=== PATIENT | female | born 1995 | race Caucasian/White ===

== ENCOUNTER 2023-10-18 16:12 | Outpatient (OUT) | payer OTHER, SELFPAY ==
[2023-10-18 16:44] LABS: Bilirubin Urine NEGATIVE (NEGATIVE); Blood Urine NEGATIVE (NEGATIVE); Clarity Urine CLEAR (CLEAR); Color Urine LT. YELLOW (YELLOW); Glucose Urine UA NEGATIVE (NEGATIVE); Ketones Urine NEGATIVE (NEGATIVE); Leukocyte Esterase Urine NEGATIVE (NEGATIVE); Nitrite Urine NEGATIVE (NEGATIVE); Protein Urine NEGATIVE (NEG/TRACE); Urobilinogen Urine 0.2 EU/dL (0.2-1.0)
[2023-10-18 16:46] LABS: Urine Microscopic Indicated NO
[2023-10-18 18:27] LABS: Amphetamine Screen Urine NEGATIVE (NEGATIVE); Barbiturates Screen Urine NEGATIVE (NEGATIVE); Benzodiazepines Screen Urine NEGATIVE (NEGATIVE); Buprenorphine Screen Urine NEGATIVE (NEGATIVE); Cannabinoid Screen Urine POSITIVE (NEGATIVE); Cocaine Screen Urine NEGATIVE (NEGATIVE); Methadone Screen Urine NEGATIVE (NEGATIVE); Methamphetamines Screen Urine NEGATIVE (NEGATIVE); Opiate Screen Urine NEGATIVE (NEGATIVE); Oxycodone Screen Urine NEGATIVE (NEGATIVE); Phencyclidine Screen Urine NEGATIVE (NEGATIVE); Tricyclic Antidepressant Urine NEGATIVE (NEGATIVE)
== END 2023-10-18 19:00 | disposition home or self-care (01) ==
LOC: FBCO 16:41 → FBC 16:56
PROVIDERS: PCP Nurse Practitioner; Visit Provider Obstetrics & Gynecology
DX: O47.03 False labor before 37 completed weeks of gestation, third trimester (principal)
CPT/HCPCS: 59025; 80307; 80349; 81003

== ENCOUNTER 2023-11-04 12:21 | Outpatient (OUT) | payer OTHER, SELFPAY ==
--- OUTSIDE RECORDS SUMMARY | 2023-11-04 12:32 | XMS_ITS | CCD ---
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 [address] [place] [address] 06299 Sodium [Moles/Vol] 136 mmol/L Normal 134-146 [facility] Comment on above: Performed By: #### 2 106-3 #### [facility] ([id number]) [address] [place] [address] 34008 Urea nitrogen [Mass/Vol] 7 mg/dL Normal 5-23 [facility] Comment on above: Performed By: #### 2 106-3 #### [facility] ([id number]) [address] [place] [address] 61992 MAGNESIUMon 06-16-2023 Magnesium [Mass/Vol] 1.7 mg/dL Low 1.8-2.6 [facility] Comment on above: Performed By: #### 2 106-3 #### [facility] ([id number]) [address] [place], [place] [address], [place] [address] SARS/FLU A+B/RSV by NAAT/Mol ecularon 06-16-2023 SARS/FLU A+B/RSV by NAAT/Molecular FLU A PCR Negative (qualifier value) FLU B PCR Negative (qualifier value) RSV by PCR Negative (qualifier value) SARS CoV 2 Not detected (qualifier value) NOTE The Xpert Xpress SARS-CoV-2/Flu/RSV Plus test is a rapid, multiplexed real-time RT-PCR test intended for the simultaneous qualitative detection and differentiation of SARS-CoV-2, influenza A, influenza B and respiratory syncytial virus (RSV) viral RNA from individuals suspected of respiratory viral infection consistent with COVID-19 by their healthcare provider. This test has not been validated in asymptomatic patients. The Xpert Xpress SARS-CoV-2 test is intended for use by qualified and trained operators who are performing tests using either [employer] or [employer] systems and is limited to laboratories that meet the CLIA requirements to perform high and moderate complexity tests. The Xpert Xpress SARS-CoV-2/Flu/RSV Plus is only for use under the Food and Drug Administration's Emergency Use Authorization. Results are for the simultaneous detection and differentiation of SARS-CoV-2, influenza A, influenza B and RSV nucleic acids in clinical specimens. SARS-CoV-2, influenza A, influenza B and RSV RNA identified by this test are generally detectable in upper respiratory samples during the acute phase of infection. Positive results are indicative of the presence of the identified virus, but do not rule out bacterial infection or co-infection with other pathogens not detected by this test. Clinical correlation with patient history and other diagnostic information is necessary to determine patient infection status. The agent detected may not be the definite cause of disease. Negative results do not preclude SARS-CoV-2, influenza A, influenza B and RSV infection and should not be used as the sole basis for treatment or other patient management decisions. Negative results must be combined with clinical observations, patient history and epidemiological information. An Invalid result may occur with specimen-associated inhibition unable to be resolved with specimen repeat. Fact Sheet for Healthcare Providers: https://www.fda.gov/me gerry/606611/download Fact Sheet for Patients: https://www.fda.gov/me gerry/851533/download [facility] Comment on above: Performed By: #### 2 106-3 #### [facility] ([id number]) [address] [place] [address] [place] [address] URINALYSISon 06-16-2023 Bilirubin Ql (U) Negative Normal NEG [facility] Comment on above: Performed By: #### 2 106-3 #### [facility] ([id number]) [address] [place] [address] [place] [address] BLOOD/HGB Negative Normal NEG [facility] Comment on above: Performed By: #### 2 106-3 #### [facility] ([id number]) [address] [place] [address] 20355 Color (U) YELLOW Normal YELLOW [facility] Comment on above: Performed By: #### 2 106-3 #### [facility] ([id number]) [address] [place] [address] [place] [address] Glucose Ql (U) Negative Normal NEG [facility] Comment on above: Performed By: #### 2 106-3 #### [facility] ([id number]) [address] [place] [address] [place] [address] Ketones Ql (U) Negative Normal NEG [facility] Comment on above: Performed By: #### 2 106-3 #### [facility] ([id number]) [address] [place] [address], [place] [address] Leukocyte esterase Test strip Ql (U) Negative Normal NEG [facility] Comment on above: Performed By: #### 2 106-3 #### [facility] ([id number]) [address] [place] [address], [place] [address] MUCOUS PRESENT Abnormal NONE [facility] Comment on above: Performed By: #### 2 106-3 #### [facility] ([id number]) [address] [place] [address] [place] [address] Nitrite Ql (U) Negative Normal NEG [facility] Comment on above: Performed By: #### 2 106-3 #### [facility] ([id number]) [address] [place] [address] 53935 pH (U) 6.5 [pH] Normal 5.0-8.5 [facility] Comment on above: Performed By: #### 2 106-3 #### [facility] ([id number]) [address] [place] [address] 14201 Protein Ql (U) Trace Abnormal NEG [facility] Comment on above: Performed By: #### 2 106-3 #### [facility] ([id number]) [address] [place] [address] 23434 R.B.CELLS 0 /hpf Normal 0-5 [facility] Comment on above: Performed By: #### 2 106-3 #### [facility] ([id number]) [address] [place] [address] 13351 Specific gravity (U) [Rel density] 1.025 Normal 1.003-1.035 [facility] Comment on above: Performed By: #### 2 106-3 #### [facility] ([id number]) [address] [place] [address] 09723 SQUAMOUS EPITHELIUM 2 /hpf Normal 0-5 [facility] Comment on above: Performed By: #### 2 106-3 #### [facility] ([id number]) [address] [place] [address] [place] [address] TURBIDITY CLEAR Normal CLEAR [facility] Comment on above: Performed By: #### 2 106-3 #### [facility] ([id number]) [address] [place] [address] 55215 Urobilinogen Qn (U) 1.0 {Jazmine'U}/dL Normal <1.1 [facility] Comment on above: Performed By: #### 2 106-3 #### [facility] ([id number]) [address] [place] [address] 86968 W.B.CELLS 0 /hpf Normal 0-5 [facility] Comment on above: Performed By: #### 2 106-3 #### [facility] ([id number]) [address] [place] [address] CHLAMYDIA/GC PCR, FLon 05-04 CHLAMYDIA/GC PCR, FL SPECIMEN SOURCE ThinPrep CHLAMYDIA DNA(PCR) Negative (qualifier value) Chlamydia trachomatis not detected by nucleic acid amplification. This does not exclude the possibility of infection because results are dependent on adequate specimen collection. GONORRHOEAE DNA(PCR) Negative (qualifier value) Neisseria gonorrhoeae not detected by nucleic acid amplification. This does not exclude the possibility of infection because results are dependent on adequate specimen collection. Normal [facility] Comment on above: Performed By: #### 2 106-3 #### [facility] ([id number]) [address] [place] [address] 93488 Cytologyon 05-05-2023 Cytology Normal [facility] Comment on above: Result Comment: [facility] [address] [place] [address] Gynecologic Cytology Consultation Patient Name:ANTOINETTE RECIO:1995 (Age: 28)Gender:FTaken:4Reported:05/21/2023hysician(s):Nieves Velasquez M.D. ([phone])Copy To: Rec. #:[id number]: #[id number] Final Cytologic Interpretation ThinPrep Pap Test (Cervical): Satisfactory for evaluation. A transformation zone component is present. NEGATIVE FOR INTRAEPITHELIAL LESION OR MALIGNANCY. Numerous neutrophilic leukocytes are present. sairaja/05/21/2023 Interpretation [place] [address], License number: [id number]. 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 Zneftu-xg-xfoxtn ratio is <0.80. Performed By: #### N UM #### [facility] ([id number]) [address] [place] [address] 06565 HEPATITIS A IGM Non-Reactive Normal NRCT [facility] Comment on above: Performed By: #### N UM #### [facility] ([id number]) [address] [place] [address] 79467 HEPATITIS B CORE IGM Negative Normal NEG [facility] Comment on above: Performed By: #### N UM #### [facility] ([id number]) [address] [place] [address] 81403 HEPATITIS B SURF AG Negative Normal NEG [facility] Comment on above: Performed By: #### N UM #### [facility] ([id number]) [address] [place] [address] 83897 COMPLETE BLOOD COUNTon 04-15 Erythrocyte distribution width (RBC) [Ratio] 18.6 % High 11.5-15.0 [facility] Comment on above: Performed By: #### C BC, CMP, 2532-0, 3084-1, AHP, 48264-3, 86314-6, 72517-9, 67346-7 #### [facility] ([id number]) [address], [address] [place] [address] Hematocrit (Bld) [Volume fraction] 34.6 % Low 35-47 [facility] Comment on above: Performed By: #### C BC, CMP, 2532-0, 3084-1, AHP, 97104-8, 56269-6, 71056-2, 03087-7 #### [facility] ([id number]) [address], [address] [place] [address] Hemoglobin (Bld) [Mass/Vol] 11.4 g/dL Low 11.7-15.5 [facility] Comment on above: Performed By: #### C BC, CMP, 2532-0, 3084-1, AHP, 95108-2, 05974-1, 99393-4, 11161-3 #### [facility] ([id number]) [address], [address] [place] [address] MCH (RBC) [Entitic mass] 26.7 pg Low 27-34 [facility] Comment on above: Performed By: #### C BC, CMP, 2532-0, 3084-1, AHP, 85237-5, 41304-6, 88619-6, 69009-7 #### [facility] ([id number]) [address], [address] [place] [address] MCHC (RBC) [Mass/Vol] 32.8 g/dL Normal 32-36 [facility] Comment on above: Performed By: #### C BC, CMP, 2532-0, 3084-1, AHP, 63832-6, 00878-0, 76360-9, 05872-0 #### [facility] ([id number]) [address], [address] [place] [address] MCV (RBC) [Entitic vol] 81 fL Normal 80-100 [facility] Comment on above: Performed By: #### C BC, CMP, 2532-0, 3084-1, AHP, 00644-5, 11931-7, 59836-2, 26835-4 #### [facility] ([id number]) [address], [address] [place] [address] Platelet mean volume (Bld) [Entitic vol] 8.5 fL Normal 7-12 [facility] Comment on above: Performed By: #### C BC, CMP, 2532-0, 3084-1, AHP, 41357-7, 27333-6, 99438-4, 29166-7 #### [facility] ([id number]) [address], [address] [place] [address] Platelets (Bld) [#/Vol] 351 10*3/uL Normal 150-450 [facility] Comment on above: Performed By: #### C BC, CMP, 2532-0, 3084-1, AHP, 60290-3, 55164-2, 97819-7, 62062-2 #### [facility] ([id number]) [address], [address] [place] [address] RBC COUNT 4.26 X10E12/L Normal 3.80-5.20 [facility] Comment on above: Performed By: #### C BC, CMP, 2532-0, 3084-1, AHP, 79628-4, 38556-7, 64747-1, 97045-0 #### [facility] ([id number]) [address], [address] [place] [address] WBC (Bld) [#/Vol] 8.9 10*3/uL Normal 4.0-11.0 [facility] Comment on above: Performed By: #### C BC, CMP, 2532-0, 3084-1, AHP, 21574-0, 70468-1, 31050-5, 60924-6 #### [facility] ([id number]) [address], [address] [place] [address] COMPREHENSIVE METABOLIC PANE Shaji 04-16-2023 Albumin [Mass/Vol] 4.4 g/dL Normal 3.2-5.3 [facility] Comment on above: Performed By: #### C BC, CMP, 2532-0, 3084-1, AHP, 64278-1, 94281-3, 17120-4, 22104-3 #### [facility] ([id number]) [address], [address] [place] [address] ALP [Catalytic activity/Vol] 42 U/L Normal 39-130 [facility] Comment on above: Performed By: #### C BC, CMP, 2532-0, 3084-1, AHP, 40202-9, 72577-6, 04862-2, 69804-7 #### [facility] ([id number]) [address], [facility] [[email or web address] [address] [place] [address] ALT [Catalytic activity/Vol] 12 U/L Normal 0-31 [facility] Comment on above: Performed By: #### C BC, CMP, 2532-0, 3084-1, AHP, 46860-4, 51106-2, 07457-0, 88613-3 #### [facility] ([id number]) [address], [facility] [[email or web address]] [address] [place] [address] Anion gap [Moles/Vol] 9 mmol/L Normal 5-15 [facility] Comment on above: Performed By: #### C BC, CMP, 2532-0, 3084-1, AHP, 31491-2, 46879-6, 63312-6, 76291-8 #### [facility] ([id number]) [address], [address] [place] [address] AST [Catalytic activity/Vol] 13 U/L Normal 0-41 [facility] Comment on above: Performed By: #### C BC, CMP, 2532-0, 3084-1, AHP, 27854-2, 40267-9, 67825-7, 54473-8 #### [facility] ([id number]) [address] [place] [address] Bilirubin [Mass/Vol] 0.7 mg/dL Normal 0.3-1.2 [facility] Comment on above: Performed By: #### C BC, CMP, 2532-0, 3084-1, AHP, 60453-3, 52903-3, 88783-2, 46986-2 #### [facility] ([id number]) [address], [address] [place] [address] Calcium [Mass/Vol] 9.4 mg/dL Normal 8.5-10.5 [facility] Comment on above: Performed By: #### C BC, CMP, 2532-0, 3084-1, AHP, 28949-8, 33172-7, 90393-0, 61277-8 #### [facility] ([id number]) [address], [address] [place] [address] Chloride [Moles/Vol] 103 mmol/L Normal 98-109 [facility] Comment on above: Performed By: #### C BC, CMP, 2532-0, 3084-1, AHP, 18011-7, 66303-9, 26414-7, 72794-1 #### [facility] ([id number]) [address], [address] [place] [address] CO2 [Moles/Vol] 24 mmol/L Normal 22-32 [facility] Comment on above: Performed By: #### C BC, CMP, 2532-0, 3084-1, AHP, 68322-0, 16389-1, 95015-5, 97672-2 #### [facility] ([id number]) [address] [place] [address] Creatinine [Mass/Vol] 0.63 mg/dL Normal 0.40-1.00 [facility] Comment on above: Result Comment: METH OD TRACEABLE TO IDMS STANDARD Performed By: #### C BC, CMP, 2532-0, 3084-1, AHP, 33953-4, 45265-4, 59917-5, 78128-6 #### [facility] ([id number]) [address], [address] [place] [address] eGFR (CKD-EPI) NON-RACE DEPENDENT >90 Normal >59 [facility] Comment on above: Result Comment: Reported eGFR is based on the CKD-EPI 2020 equation that does not use a race coefficient. Performed By: #### C BC, CMP, 2532-0, 3084-1, AHP, 32680-1, 61712-8, 06326-1, 15336-9 #### [facility] ([id number]) [address], [address] [place] [address] Glucose [Mass/Vol] 84 mg/dL Normal 65-99 [facility] Comment on above: Performed By: #### C BC, CMP, 2532-0, 3084-1, AHP, 82548-2, 20719-2, 15105-7, 63670-3 #### [facility] ([id number]) [address], [address] [place] [address] Potassium [Moles/Vol] 3.4 mmol/L Low 3.5-5.0 [facility] Comment on above: Performed By: #### C BC, CMP, 2532-0, 3084-1, AHP, 24146-0, 14498-3, 58713-1, 73853-6 #### [facility] ([id number]) [address], [address] [place] [address] Protein [Mass/Vol] 6.9 g/dL Normal 6.0-8.0 [facility] Comment on above: Performed By: #### C BC, CMP, 2532-0, 3084-1, AHP, 84521-8, 39171-1, 85613-2, 25879-7 #### [facility] ([id number]) [address], [address] [place] [address] Sodium [Moles/Vol] 136 mmol/L Normal 134-146 [facility] Comment on above: Performed By: #### C BC, CMP, 2532-0, 3084-1, AHP, 52510-7, 23632-0, 39102-1, 18666-4 #### [facility] ([id number]) [address], [address] [place] [address] Urea nitrogen [Mass/Vol] 11 mg/dL Normal 5-23 [facility] Comment on above: Performed By: #### C BC, CMP, 2532-0, 3084-1, AHP, 07699-8, 76007-6, 96144-6, 61351-9 #### [facility] ([id number]) [address], [address] [place] [address] DRUG SCREEN, URINEon 024 AMPHETAMINE/METHAMP Negative Normal NEG [facility] Comment on above: Result Comment: AMPH /METH screening cut off = 1000 ng/mL Performed By: #### N UM #### [facility] ([id number]) [address] [place] [address] 18957 BARBITURATES Negative Normal NEG [facility] Comment on above: Result Comment: Carmella iturates screening cut off value = 200 ng/mL Performed By: #### N UM #### [facility] ([id number]) [address] [place] [address] 02906 BENZODIAZEPINES Negative Normal NEG [facility] Comment on above: Result Comment: German odiazepines screening cut off value = 200 ng/mL Performed By: #### N UM #### [facility] ([id number]) [address] [place] [address] 80776 CANNABINOIDS Positive Abnormal NEG [facility] Comment on above: Result Comment: Conf irmation available upon request. Cannabinoids/THC screening cut off value = 50 ng/mL Performed By: #### N UM #### [facility] ([id number]) [address] [place] [address] 35284 COCAINE METABOLITE Negative Normal NEG [facility] Comment on above: Result Comment: Coca ine screening cut off value = 300 ng/mL Performed By: #### N UM #### [facility] ([id number]) [address] [place] [address] 34786 ECSTASY Negative Normal NEG [facility] Comment on above: Result Comment: Ecst asy screening cut off value = 500 ng/mL This report is intended for use in clinical monitoring or management of patients. Performed By: #### N UM #### [facility] ([id number]) [address] [place] [address] 74152 METHADONE Negative Normal [facility] Comment on above: Result Comment: Meth adone screening cut off value = 300 ng/mL. Performed By: #### N UM #### [facility] ([id number]) [address] [place] [address] 95165 OPIATES Negative Normal [facility] Comment on above: Result Comment: Opia markie screening cut off value = 300 ng/mL NOTE: This test is used for the detection of codeine, hydrocodone (>1000 ng/mL), morphine and hydromorphone (>900 ng/mL) in urine. Performed By: #### N UM #### [facility] ([id number]) [address] [place] [address] 98510 OXYCODONE Negative Normal [facility] Comment on above: Result Comment: Oxyc odone screening cut off value = 300 ng/mL NOTE: This test is used for the detection of oxycodone and oxymorphone in urine. Performed By: #### N UM #### [facility] ([id number]) [address] [place] [address] PHENCYCLIDINE Negative Normal NEG [facility] Comment on above: Result Comment: Phen cyclidine screening cut off value = 25 ng/mL Performed By: #### N UM #### [facility] ([id number]) [address] [place] [address] 23748 HIV 1+2 Ab+HIV1 p24 Ag IA Ql on 04-16-2023 HIV 1 and 2 Ab/Ag Screen Non-Reactive Normal NRCT [facility] Comment on above: Result Comment: This information has been disclosed to you from confidential records protected from disclosure by state law. You shall make no further disclosure of this information without the specific, written and informed release of the individual to whom it pertains, or as otherwise permitted by state law. A general authorization for the release of medical or other information is not sufficient for the purpose of the release of HIV test results or diagnoses. Performed By: #### N UM #### [facility] ([id number]) [address] [place] [address] 48490 LDH [Catalytic activity/Vol] on 04-16-2023 LDH 156 U/L Normal 100-235 [facility] Comment on above: Performed By: #### N UM #### [facility] ([id number]) [address] [place] [address] 16544 PROTEIN CREAT RATIOon 2023 RANDOM URINE PROTEIN 180 mg/L High <120 [facility] Comment on above: Performed By: #### N UM #### [facility] ([id number]) [address] [place] [address] 90745 U/PRO/PUMP MECHANIC RATIO CALC 0.07 Normal <0.2 [facility] Comment on above: Result Comment: Neph rotic Syndrome is associated with ratios >3.5 Performed By: #### N UM #### [facility] ([id number]) [address] [place] [address] URINE CREATININE,RDM 273.50 mg/dL Normal Pr [facility] Comment on above: Performed By: #### N UM #### [facility] ([id number]) [address] [place] [address] 57209 Rubella virus Ab Ql (S)on RUBELLA IMMUNE IgG 3.1 AI Normal [facility] Comment on above: Result Comment: Interpretation-------- <0.8 NEGATIVE-considered Not Immune 0.8-0.9 EQUIVOCAL-consider retesting with new specimen >0.9 POSITIVE-considered Immune Performed By: #### N UM #### [facility] ([id number]) [address] [place] [address] 68061 T. pallidum IgG+IgM IA Ql (S )on 04-16-2023 Syphilis Total <0.2 Normal 0.0-0.8 [facility] Comment on above: Result Comment: NON REACTIVE No serologic evidence of infection to Treponema pallidum (syphilis). Repeat testing may be considered in patients with suspected acute or primary syphilis in 2 to 4 weeks. Performed By: #### N UM #### [facility] ([id number]) [address] [place] [address] 66960 URIC ACIDon 04-16-2023 Urate [Mass/Vol] 7.5 mg/dL High 2.6-7.2 [facility] Comment on above: Performed By: #### N UM #### [facility] ([id number]) [address] [place] [address] 19283 URINALYSISon 04-16-2023 Bilirubin Ql (U) Negative Normal NEG [facility] BLOOD/HGB Negative Normal NEG [facility] CA OXALATE CRYSTALS PRESENT Abnormal NONE [facility] Color (U) BROWN Abnormal YELLOW [facility] Glucose Ql (U) Negative Normal NEG [facility] Ketones Ql (U) Negative Normal NEG [facility] Leukocyte esterase Test strip Ql (U) Small Abnormal NEG [facility] MUCOUS PRESENT Abnormal NONE [facility] Nitrite Ql (U) Negative Normal NEG [facility] pH (U) 6.0 [pH] Normal 5.0-8.5 [facility] Protein Ql (U) 30 mg/dL Abnormal NEG [facility] R.B.CELLS 2 /hpf Normal 0-5 [facility] Specific gravity (U) [Rel density] 1.030 Normal 1.003-1.035 [facility] SQUAMOUS EPITHELIUM >27 High 0-5 [facility] TURBIDITY CLOUDY Abnormal CLEAR [facility] Urobilinogen (U) [Mass/Vol] mg/dL Normal <1.1 [facility] W.B.CELLS <1 Normal 0-5 [facility] URINE CULTUREon 04-16-2023 Bacteria identified Cx Nom (U) CULTURE RESULTS 50-100,000 ORGANISMS/ML NORMAL UROGENITAL YOGESH Normal [facility] Comment on above: Performed By: #### 2 106-3 #### [facility] ([id number]) [address] [place] [address], [place] [address] US PREG LESS THAN 14 WKS WIT H TRANSVAGINALon 04-16-2023 US PREG LESS THAN 14 WKS WITH TRANSVAGINAL US PREG LESS THAN 14 WKS WITH TRANSVAGINAL US PREG LESS THAN 14 WKS WITH TRANSVAGINAL: 04/16/2023 1:04 PM Clinical: Check dates and viability. Real-time transabdominal and transvaginal sonography pelvis performed.. No comparison. There is a single live intrauterine . [place]-rump length of 2.9 mm corresponds to 5 weeks 6 days gestation. Yolk sac, pole, and heart motion 115 beats per minute noted. Amount amniotic fluid is normal. Placenta not well seen due to early gestational age. Maternal ovaries are unremarkable. No cul-de-sac fluid seen. Impression: * Single live intrauterine 5 weeks 6 days gestation. * Ultrasound CALVIN 12/11/2023. Finalized by Benja Cook MD on 04/16/2023 6:58 PM Normal [facility] VZV IgG IA Ql (S)on 04-16-19 24 VARICELLA IgG 1.1 AI High <0.9 [facility] Comment on above: Result Comment: Interpretation-------- <0.9 Negative 0.9 - 1.0 Equivocal >1.0 Positive Performed By: #### N UM #### [facility] ([id number]) [address] [place] [address] 77365 CBC AND AUTO DIFFon 03-30-19 24 ABSOLUTE BASOPHIL 0.1 X10E9/L Normal 0.0-0.2 [facility] Comment on above: Performed By: #### [facility], #### [facility] ([id number]) [address] [place] [address] 10287 ABSOLUTE NEUTROPHIL 7.6 X10E9/L High 1.5-6.6 [facility] Comment on above: Performed By: #### [facility], #### [facility] ([id number]) [address] [place] [address] 32733 Basophils/100 WBC (Bld) 0.7 % Normal [facility] Comment on above: Performed By: #### [facility], #### [facility] ([id number]) [address] [place] [address] 95515 Eosinophils (Bld) [#/Vol] 0.2 10*3/uL Normal 0.0-0.4 [facility] Comment on above: Performed By: #### C OPAL MARION, #### [facility] ([id number]) [address] [place] [address] 65258 Eosinophils/100 WBC (Bld) 1.8 % Normal [facility] Comment on above: Performed By: #### [facility], #### [facility] ([id number]) [address] [place] [address] 99688 Erythrocyte distribution width (RBC) [Ratio] 18.4 % High 11.5-15.0 [facility] Comment on above: Performed By: #### C OPAL MARION, #### [facility] ([id number]) [address] [place] [address] 85741 Hematocrit (Bld) [Volume fraction] 35.8 % Normal 35-47 [facility] Comment on above: Performed By: #### C OPAL MARION, #### [facility] ([id number]) [address] [place] [address] 07374 Hemoglobin (Bld) [Mass/Vol] 11.7 g/dL Normal 11.7-15.5 [facility] Comment on above: Performed By: #### C OPAL MARION, #### [facility] ([id number]) [address] [place] [address] 95560 Lymphocytes (Bld) [#/Vol] 2.2 10*3/uL Normal 1.0-3.5 [facility] Comment on above: Performed By: #### Doretha MARION CMP, #### [facility] ([id number]) [address] [place] [address] 71386 Lymphocytes/100 WBC (Bld) 20.7 % Normal [facility] Comment on above: Performed By: #### C OPAL MARION, #### [facility] ([id number]) [address] [place] [address] 06974 MCH (RBC) [Entitic mass] 26.2 pg Low 27-34 [facility] Comment on above: Performed By: #### C SANAM, CMP, #### [facility] ([id number]) [address] [place] [address] 30141 MCHC (RBC) [Mass/Vol] 32.8 g/dL Normal 32-36 [facility] Comment on above: Performed By: #### Doretha MARION CMP, #### [facility] ([id number]) [address] [place] [address] 62295 MCV (RBC) [Entitic vol] 80 fL Normal 80-100 [facility] Comment on above: Performed By: #### Doretha MARION CMP, #### [facility] ([id number]) [address] [place] [address] 03049 Monocytes (Bld) [#/Vol] 0.5 10*3/uL Normal 0-0.9 [facility] Comment on above: Performed By: #### Doretha MARION, CMP, #### [facility] ([id number]) [address] [place] [address] 77633 Monocytes/100 WBC (Bld) 5.2 % Normal [facility] Comment on above: Performed By: #### Doretha MARION, CMP, #### [facility] ([id number]) [address] [place] [address] 25528 Neutrophils/100 WBC (Bld) 71.6 % Normal [facility] Comment on above: Performed By: #### Doretha MARION, CMP, #### [facility] ([id number]) [address] [place] [address] 76287 Platelet mean volume (Bld) [Entitic vol] 8.3 fL Normal 7-12 [facility] Comment on above: Performed By: #### C SANAM CMP, #### [facility] ([id number]) [address] [place] [address] 57820 Platelets (Bld) [#/Vol] 337 10*3/uL Normal 150-450 [facility] Comment on above: Performed By: #### C SANAM, CMP, #### [facility] ([id number]) [address] [place] [address] 38757 RBC COUNT 4.48 X10E12/L Normal 3.80-5.20 [facility] Comment on above: Performed By: #### C SANAM, CMP, #### [facility] ([id number]) [address] [place] [address] 57019 WBC (Bld) [#/Vol] 10.6 10*3/uL Normal 4.0-11.0 [facility] Comment on above: Performed By: #### C SANAM, CMP, #### [facility] ([id number]) [address] [place] [address] 86634 COMPREHENSIVE METABOLIC PANE Shaji 03-30-2023 Albumin [Mass/Vol] 4.4 g/dL Normal 3.2-5.3 [facility] Comment on above: Performed By: #### C BCA, CMP, #### [facility] ([id number]) [address] [place] [address] 67425 ALP [Catalytic activity/Vol] 40 U/L Normal 39-130 [facility] Comment on above: Performed By: #### C BCA, CMP, #### [facility] ([id number]) [address] [place] [address] 19444 ALT [Catalytic activity/Vol] 12 U/L Normal 0-31 [facility] Comment on above: Performed By: #### C SANAM CMP, #### [facility] ([id number]) [address] [place] [address] 45241 Anion gap [Moles/Vol] 8 mmol/L Normal 5-15 [facility] Comment on above: Performed By: #### C SANAM CMP, #### [facility] ([id number]) [address] [place] [address] 50036 AST [Catalytic activity/Vol] 16 U/L Normal 0-41 [facility] Comment on above: Performed By: #### C SANAM CMP, #### [facility] ([id number]) [address] [place] [address] 10557 Bilirubin [Mass/Vol] 0.5 mg/dL Normal 0.3-1.2 [facility] Comment on above: Performed By: #### C SANAM, CMP, #### [facility] ([id number]) [address] [place] [address] 27622 Calcium [Mass/Vol] 9.2 mg/dL Normal 8.5-10.5 [facility] Comment on above: Performed By: #### C SANAM CMP, #### [facility] ([id number]) [address] [place] [address] 71978 Chloride [Moles/Vol] 105 mmol/L Normal 98-109 [facility] Comment on above: Performed By: #### C BCA, CMP, #### [facility] ([id number]) [address] [place] [address] 15758 CO2 [Moles/Vol] 24 mmol/L Normal 22-32 [facility] Comment on above: Performed By: #### C BCA, CMP, #### [facility] ([id number]) [address] [place] [address] 07785 Creatinine [Mass/Vol] 0.74 mg/dL Normal 0.40-1.00 [facility] Comment on above: Result Comment: METH OD TRACEABLE TO IDMS STANDARD Performed By: #### C OPAL MARION, #### [facility] ([id number]) [address] [place] [address] 09838 eGFR (CKD-EPI) NON-RACE DEPENDENT >90 Normal >59 [facility] Comment on above: Result Comment: Reported eGFR is based on the CKD-EPI 2020 equation that does not use a race coefficient. Performed By: #### C OPAL MARION, #### [facility] ([id number]) [address] [place] [address] 16732 Glucose [Mass/Vol] 89 mg/dL Normal 65-99 [facility] Comment on above: Performed By: #### C OPAL MARION, #### [facility] ([id number]) [address] [place] [address] 18302 Potassium [Moles/Vol] 3.7 mmol/L Normal 3.5-5.0 [facility] Comment on above: Performed By: #### C OPAL MARION, #### [facility] ([id number]) [address] [place] [address] 81940 Protein [Mass/Vol] 7.4 g/dL Normal 6.0-8.0 [facility] Comment on above: Performed By: #### C OPAL MARION, #### [facility] ([id number]) [address] [place] [address] 14629 Sodium [Moles/Vol] 137 mmol/L Normal 134-146 [facility] Comment on above: Performed By: #### C SANAM CMP, #### [facility] ([id number]) [address] [place] [address] 34544 Urea nitrogen [Mass/Vol] 10 mg/dL Normal 5-23 [facility] Comment on above: Performed By: #### [facility], 83528-4 #### [facility] ([id number]) [address] [place] [address] 85829 HCG ( test) Ql (U)o n 03-30-2023 Beta HCG ( test) Ql (U) Positive Abnormal NEG [facility] Comment on above: Performed By: #### 2 106-3 #### [facility] ([id number]) [address] [place] [address] 29273 HCG.beta subunit IA 3rd IS Q non 03-30-2023 HCG.beta subunit Qn 80 m[IU]/mL Normal [facility] Comment on above: Result Comment: NEW REFERENCE RANGE WEEKS (SINCE LMP) MIU/mL 3 WEEKS 5 - 50 4 WEEKS 5 - 426 5 WEEKS 18 - 7,340 6 WEEKS 1,080 - 56,500 7-8 WEEKS 7,650 - 229,000 9-12 WEEKS 25,700 - 288,000 13-16 WEEKS 13,300 - 254,000 17-24 WEEKS 4,060 - 165,400 25-40 WEEKS 3,640 - 117,000 MALES AND NON- FEMALES - <5 MIU/mL This test has been FDA approved for use in only. Elevated levels are not necessarily diagnostic for trophoblastic or nontrophoblastic neoplasms. Performed By: #### [facility], 92554-7 #### [facility] ([id number]) [address] [place] [address] 00295 URINE CULTUREon 03-30-2023 Bacteria identified Cx Nom (U) CULTURE RESULTS 10-50,000 ORGANISMS/mL NORMAL UROGENITAL YOGESH Normal [facility] Comment on above: Performed By: #### 6 30-4 #### [facility] ([id number]) [address] [place] [address], [address] [place] [address] URN MACROSCOPIC NURon 2023 BILIRUBIN YARI Negative Normal NEG [facility] Comment on above: Performed By: #### N UM #### [facility] ([id number]) [address] [place] [address] 44433 BLOOD/HGB YARI Negative Normal NEG [facility] Comment on above: Performed By: #### N UM #### [facility] ([id number]) [address] [place] [address] 00475 GLUCOSE YARI Negative Normal NEG [facility] Comment on above: Performed By: #### N UM #### [facility] ([id number]) [address] [place] [address] [place] [address] KETONES YARI Negative Normal NEG [facility] Comment on above: Performed By: #### N UM #### [facility] ([id number]) [address] [place] [address] 77575 LEUKOCYTE ESTERASE YARI Negative Normal NEG [facility] Comment on above: Performed By: #### N UM #### [facility] ([id number]) [address] [place] [address] [place] [address] NITRITE YARI Negative Normal NEG [facility] Comment on above: Performed By: #### N UM #### [facility] ([id number]) [address] [place] [address] 20599 PH YARI 6.0 Normal 5.0-8.5 [facility] Comment on above: Performed By: #### N UM #### [facility] ([id number]) [address] [place] [address] 71484 PROTEIN YARI Negative Normal NEG [facility] Comment on above: Performed By: #### N UM #### [facility] ([id number]) [address] [facility], [place] [address] SPECIFIC GRAVITY YARI >=1.030 Normal 1.003-1.035 [facility] Comment on above: Performed By: #### N UM #### [facility] ([id number]) [address] [place] [address] UROBILINOGEN YARI 0.2 eu/dL Normal <1.1 [facility] Comment on above: Performed By: #### N UM #### [facility] ([id number]) [address] [place] [address] US PREG LESS THAN 14 WKS WIT H TRANSVAGINALon 03-30-2023 US PREG LESS THAN 14 WKS WITH TRANSVAGINAL US PREG LESS THAN 14 WKS WITH TRANSVAGINAL History: Pelvic pain in early . For viability and dating Exam/Technique: Early obstetric ultrasound (transabdominal and endovaginal) Comparison: None Findings: No intrauterine gestational sac is demonstrated. Prominent endometrium measuring up to 2.1 cm appears consistent with decidual reaction. Both ovaries appear normal with the left containing a corpus luteum of . A 1.1 cm follicle in the right ovary. Overall dimensions of the right ovary are 2.2 x 1.8 x 2.0 cm, and the left measures 4.8 x 2.7 x 3.1 cm. No adnexal abnormalities are displayed and no free intraperitoneal fluid or additional pelvic abnormalities are depicted. IMPRESSION: No intrauterine displayed at present with no adnexal abnormalities of concern for ectopic . Finalized by Pro Eckert MD on 03/30/2023 8:48 PM Normal [facility] Cholesterol [Mass/volume] in Serum or PlasmaOrdered By: Dar Nation on 11-28-2022 Cholesterol [Mass/Vol] 200 mg/dL 140-200 [facility] Comment on above: Chol less than 200 m g/dl low riskChol 201-239 mg/dl borderline riskChol 240 mg/dl and greater high risk Cholesterol in LDL Calc [Mas s/Vol]Ordered By: Dar Nation on 11-28-2022 Cholesterol in LDL [Mass/Vol] 75 mg/dL 0-100 [facility] Comment on above: LDL ATP III CLASSIFI CATIONLDL less than 100 mg/dL OptimalLDL 100-129 mg/dL Near or above optimalLDL 130-159 mg/dL Borderline highLDL 160-189 mg/dL HighLDL greater than 189 mg/dL Very high Cholesterol in VLDL Calc [Ma ss/Vol]Ordered By: Dar Nation on 11-28-2022 Cholesterol in VLDL [Mass/Vol] 16 mg/dL [facility] Lipid Panelon 11-28-2022 Cholesterol [Mass/Vol] 200 mg/dL Normal 140-200 [facility] Comment on above: Result Comment: Chol less than 200 mg/dl low risk Chol 201-239 mg/dl borderline risk Chol 240 mg/dl and greater high risk Performed By: #### H S TROP, CMP, ETOH, CBC, TSH3 #### [facility] [address] [place] [id number] [place] Cholesterol in HDL [Mass/Vol] 109 mg/dL High 23-92 [facility] Comment on above: Result Comment: HDL CHOL ATP-III CLASSIFICATION Cardiovascular Risk HDL > or equal to 60 mg/dL LOW HDL < 40 mg/dL HIGH Performed By: #### H S TROP, CMP, ETOH, CBC, TSH3 #### [facility] [address] [place] [address] [place] Cholesterol.total/Sarah sterol in HDL [Mass ratio] 1.8 {ratio} Normal <5.0 [facility] Comment on above: Performed By: #### H S TROP, CMP, ETOH, CBC, TSH3 #### [facility] [address] [place] [address] [place] LDL Cholesterol,Calculated 75 mg/dL Normal 0-100 [facility] Comment on above: Result Comment: LDL ATP III CLASSIFICATION LDL less than 100 mg/dL Optimal LDL 100-129 mg/dL Near or above optimal LDL 130-159 mg/dL Borderline high LDL 160-189 mg/dL High LDL greater than 189 mg/dL Very high Performed By: #### H S TROP, CMP, ETOH, CBC, TSH3 #### [facility] [address] Triglyceride w/Reflex 80 mg/dL Normal 0-149 [facility] Comment on above: Result Comment: TRIG ATP III CLASSIFICATION TRIG less than 150 mg/dL Normal TRIG 150-199 mg/dL Borderline high TRIG 200-500 mg/dL High TRIG greater than 500 mg/dL Very high Standard traceable to the Center for Disease Conrtrol and Prevention (CDC) test method. Performed By: #### H S TROP, CMP, ETOH, CBC, TSH3 #### [facility] [address] VLDL CHOLESTEROL 16 mg/dL Normal [facility] Comment on above: Performed By: #### H S TROP, CMP, ETOH, CBC, TSH3 #### [facility] [address] Serum or plasma high density lipoprotein (HDL) cholesterol measurementOrdered By: Dar Nation on 11-28-2022 Cholesterol in HDL [Mass/Vol] 109 mg/dL - [facility] Comment on above: HDL CHOL ATP-III CLA SSIFICATION Cardiovascular RiskHDL > or equal to 60 mg/dL LOWHDL < 40 mg/dL HIGH Serum or plasma total choles terol/high density lipoprotein (HDL) cholesterol mass ratOrdered By: Dar Nation on 11-28-2022 Cholesterol.total/Sarah sterol in HDL [Mass ratio] 1.8 {ratio} <5.0 [facility] Thyroid Stim Hormone w/Rflxo n 11-28-2022 Thyroid Stim Hormone w/Rflx 1.79 u[iU]/mL Normal 0.45-5.33 [facility] Comment on above: Performed By: #### H S TROP, CMP, ETOH, CBC, TSH3 #### [facility] [address] [place] [address] [place] Thyrotropin [Units/volume] i n Serum or PlasmaOrdered By: Dar Nation on 11-28-2022 TSH Qn 1.79 m[IU]/L 0.45-5.33 [facility] Triglyceride [Mass/volume] i n Serum or PlasmaOrdered By: Dar Nation on 11-28-2022 Triglyceride [Mass/Vol] 80 mg/dL 0-149 [facility] Comment on above: TRIG ATP III CLASSIF ICATIONTRIG less than 150 mg/dL NormalTRIG 150-199 mg/dL Borderline highTRIG 200-500 mg/dL High TRIG greater than 500 mg/dL Very highStandard traceable to the Center for Disease Conrtrol and Prevention (CDC) test method. Vitamin D 25 Hydroxy Totalon 11-28-2022 Vitamin D 25 Hydroxy Total 32.8 ng/mL Normal 30-100 [facility] Comment on above: Result Comment: JESSICA MIN D STATUS 25([place])VITAMIN D RANGE (ng/mL) Deficient <20 Insufficient 20 to <30 Sufficient 30 to 100 Reference: Aye Palacios, Geremias YOUNG, et al. Evaluation,treatment, and prevention of vitamin D deficiency; an Endocrine Society clinical practice guideline. JCEM. 2010; 96(7):191-. PERFORMED BY: [facility] [address] [place] [address] PATHOLOGIST [employer] KELLIE ALVARADO M.D. Performed By: #### H S TROP, CMP, ETOH, CBC, TSH3 #### [facility] [address] Vitamin D+Metabolites [Mass/ volume] in Serum or PlasmaOrdered By: Dar Nation on 11-28-2022 Vitamin D+Metabolites [Mass/Vol] 32.8 ng/mL 30-100 [facility] Comment on above: VITAMIN D STATUS 25( [place])VITAMIN D RANGE (ng/mL) Deficient <20 Insufficient 20 to <30Sufficient 30 to 100Reference: Aye Palacios, Geremias YOUNG, et al. Evaluation,treatment, and prevention of vitamin D deficiency; an Endocrine Society clinical practice guideline. JCEM. 2010; 96(7):1911-30. Alanine aminotransferase [En zymatic activity/volume] in Serum or PlasmaOrdered By: Sara Tripathi on 11-27-2022 ALT [Catalytic activity/Vol] 19 U/L 7-52 [facility] Albumin [Mass/volume] in Ser um or Plasma by Bromocresol green (BCG) dye binding methoOrdered By: Sara Triapthi on 11-27-2022 Albumin BCG dye [Mass/Vol] 4.2 g/dL 3.5-5.7 [facility] Alkaline phosphatase [Enzyma tic activity/volume] in Serum or PlasmaOrdered By: Sara Tripathi on 11-27-2022 ALP [Catalytic activity/Vol] 56 U/L 34-104 [facility] Amphetamine Screen Ql (U)Ord ered By: Sara Tripathi on 11-27-2022 Amphetamines Ql (U) Negative Negative [facility] Aspartate aminotransferase [ Enzymatic activity/volume] in Serum or PlasmaOrdered By: Sara Tripathi on 11-27-2022 AST [Catalytic activity/Vol] 31 U/L 13-39 [facility] Automated erythrocytes count in urine sediment (number/area)Ordered By: Sara Tripathi on 11-27-2022 RBC Auto (Urine sed) [#/Area] 5-9 [HPF] 0-4 [facility] Automated leukocytes count i n urine sediment (number/area)Ordered By: Sara Tripathi on 11-27-2022 WBC Auto (Urine sed) [#/Area] 50-100 [HPF] 0-4 [facility] Automated urine hyaline cast s count (number/volume)Ordered By: Sara Tripathi on 11-27-2022 Hyaline casts Auto (U) [#/Vol] None seen [LPF] 0-1 [facility] Barbiturates [Presence] in U rine by Screen methodOrdered By: Sara Tripathi on 11-27-2022 Barbiturates Screen Ql (U) Negative Negative [facility] Basophils Auto (Bld) [#/Vol] Ordered By: Sara Tripathi on 11-27-2022 Basophils (Bld) [#/Vol] 0.2 10*3/uL 0.0-0.2 [facility] Basophils/100 WBC Auto (Bld) Ordered By: Sara Tripathi on 11-27-2022 Basophils/100 WBC (Bld) 3.0 % . [facility] Benzodiazepines Screen Ql (U )Ordered By: Sara Tripathi on 11-27-2022 Benzodiazepines Ql (U) Negative Negative [facility] Benzoylecgonine [Presence] i n Urine by Screen methodOrdered By: Sara Tripathi on 11-27-2022 Benzoylecgonine Screen Ql (U) Negative Negative [facility] Bilirubin Test strip Ql (U)O rdered By: Sara Tripathi on 11-27-2022 Bilirubin Ql (U) Negative Negative [facility] Bilirubin.total [Mass/volume ] in Serum or PlasmaOrdered By: Sara Tripathi on 11-27-2022 Bilirubin [Mass/Vol] 0.7 mg/dL 0.3-1.0 [facility] CT abdomen pelvis wo conon 1 CT abdomen pelvis wo con [facility] Main [place] [address] [place] [address] CT Scan Report Signed Patient: Antoinette Recio MR#: [id number] : 1995 Acct:[id number] Age/Sex: 27 / F ADM Date: 11/27/22 Loc: ER Room: Type: [facility] ER Attending Dr: Copies to: Sara Tripathi MD Ordering Provider: Sara Tripathi MD Date of Service: 11/27/22 CT/CT abdomen pelvis wo con: kjb CT abdomen pelvis wo con 11/27/2022 9:59 AM SIGNS AND SYMPTOMS: Abdominal pain, rectal bleeding, nausea and vomiting TECHNIQUE: Multidetector ct axial images of the abdomen and pelvis were obtained without IV contrast. Multiplanar reformats were performed and reviewed to further define anatomy and possible pathology. CT was performed with one or more of the following dose reduction techniques: Automated exposure control, adjustment of the mA and/or kV according to patient size, or use of iterative reconstruction technique. COMPARISON: 12/21/2020 FINDINGS: Lower Chest: Within normal limits. ABDOMEN: Liver: Within normal limits. Bile Ducts: Normal caliber. Gallbladder: No calcified gallstones. Normal caliber wall. Pancreas: Within normal limits. Spleen: Within normal limits. Adrenals: Within normal limits. Kidneys: Within normal limits. Pelvis: Reproductive Organs: No pelvic masses. Ureters: Within normal limits. Bladder: Within normal limits. Bowel: Normal caliber. There is a normal appendix in the right lower quadrant. Postoperative changes are noted along the gastric lumen consistent with prior gastric sleeve procedure. Mesenteric Lymph Nodes: No enlarged mesenteric lymph nodes. Peritoneum: No ascites or free air, no fluid collection. Vessels: within normal limits Retroperitoneum: Within normal limits. Abdominal Wall: Within normal limits. Bones: Within normal limits. CT/CT abdomen pelvis wo con IMPRESSION: No acute intra-abdominal pathology. Postoperative changes are noted along the gastric lumen consistent with prior gastric sleeve procedure. Impression dictated by: Vipul Rucker M.D.11/27/2022 11:17 AM Dictation Location: [place] [address] Transcribed By: PEDRO 11/27/22 111 Dictated By: Vipul Rucker II, MD 11/27/22 111 Signed By: 11/27/22 111 Normal [facility] Calcium [Mass/volume] in Ser um or PlasmaOrdered By: Sara Tripathi on 11-27-2022 Calcium [Mass/Vol] 9.4 mg/dL 8.6-10.3 [facility] Cannabinoids [Presence] in U rine by Screen methodOrdered By: Sara Tripathi on 11-27-2022 Cannabinoids Screen Ql (U) Positive Negative [facility] Comment on above: These are unconfirme d results and should not be used for legal purposes. Drug Cut-Off Concentration: AMPH 1000 ng/mL CARMELLA 200 ng/mL GERMAN 200 ng/mL COCM 300 ng/mL OP 300 ng/mL PCP 25 ng/mL THC 20 ng/mL Carbon dioxide, total [Moles /volume] in Serum or PlasmaOrdered By: Sara Tripathi on 11-27-2022 CO2 [Moles/Vol] 24.9 mmol/L 21.0-31.0 [facility] Casts typing in urine sedime nt by light microscopyOrdered By: Sara Tripathi on 11-27-2022 Casts LM Nom (Urine sed) None seen [LPF] None Seen [facility] Chloride [Moles/volume] in S phil or PlasmaOrdered By: Sara Tripathi on 11-27-2022 Chloride [Moles/Vol] 101 mmol/L 98-107 [facility] Coarse granular casts count in urine sediment by microscopy low power field (number/aOrdered By: Sara Tripathi on 11-27-2022 Coarse Granular Casts LM.LPF (Urine sed) [#/Area] 0-1 [LPF] 0-1 [facility] Color Auto (U)Ordered By: Donna Tripathi on 11-27-2022 Color (U) Dark yellow Yellow [facility] Complete Blood Count Auto Di ffon 11-27-2022 Basophils (Bld) [#/Vol] 0.2 10*3/uL Normal 0.0-0.2 [facility] Comment on above: Result Comment: PERF ORMED BY: [place] [address] PATHOLOGIST [employer] KELLIE ALVARADO M.D. Performed By: #### H S TROP, CMP, ETOH, CBC, TSH3 #### [address] Basophils/100 WBC (Bld) 3.0 % Normal . [facility] Comment on above: Performed By: #### H S TROP, CMP, ETOH, CBC, TSH3 #### [address] Eosinophils (Bld) [#/Vol] 0.1 10*3/uL Normal 0.0-0.45 [facility] Comment on above: Performed By: #### H S TROP, CMP, ETOH, CBC, TSH3 #### [address] Eosinophils/100 WBC (Bld) 1.1 % Normal . [facility] Comment on above: Performed By: #### H S TROP, CMP, ETOH, CBC, TSH3 #### [address] Erythrocyte distribution width (RBC) [Ratio] 15.9 % High 11.9-15.3 [facility] Comment on above: Performed By: #### H S TROP, CMP, ETOH, CBC, TSH3 #### [address] Hematocrit (Bld) [Volume fraction] 38.0 % Normal 34.0-46.4 [facility] Comment on above: Performed By: #### H S TROP, CMP, ETOH, CBC, TSH3 #### [address] Hemoglobin (Bld) [Mass/Vol] 12.5 g/dL Normal 11.8-15.4 [facility] Comment on above: Performed By: #### H S TROP, CMP, ETOH, CBC, TSH3 #### [address] Lymphocytes (Bld) [#/Vol] 0.8 10*3/uL Low 1.00-4.8 [facility] Comment on above: Performed By: #### H S TROP, CMP, ETOH, CBC, TSH3 #### [address] Lymphocytes/100 WBC (Bld) 11.3 % Normal . [facility] Comment on above: Performed By: #### H S TROP, CMP, ETOH, CBC, TSH3 #### [address] MCH (RBC) [Entitic mass] 28.8 pg Normal 24.7-34.3 [facility] Comment on above: Performed By: #### H S TROP, CMP, ETOH, CBC, TSH3 #### [address] MCV (RBC) [Entitic vol] 87.5 fL Normal 80-100 [facility] Comment on above: Performed By: #### H S TROP, CMP, ETOH, CBC, TSH3 #### [address] Mean Corpuscular HGB Conc 33.0 g/dL Normal 32.0-35.0 [facility] Comment on above: Performed By: #### H S TROP, CMP, ETOH, CBC, TSH3 #### [address] Monocytes (Bld) [#/Vol] 0.6 10*3/uL Normal 0.0-0.8 [facility] Comment on above: Performed By: #### H S TROP, CMP, ETOH, CBC, TSH3 #### [address] [address] [place] Monocytes/100 WBC (Bld) 17.41 % Normal 0.00-20.00 [facility] Comment on above: Performed By: #### H S TROP, CMP, ETOH, CBC, TSH3 #### [place] [address] [place] Monocytes/100 WBC (Bld) 8.9 % Normal . [facility] Comment on above: Performed By: #### H S TROP, CMP, ETOH, CBC, TSH3 #### [address] Neutrophils (Bld) [#/Vol] 5.1 10*3/uL Normal 1.8-7.7 [facility] Comment on above: Performed By: #### H S TROP, CMP, ETOH, CBC, TSH3 #### [address] Neutrophils/100 WBC (Bld) 75.7 % Normal . [facility] Comment on above: Performed By: #### H S TROP, CMP, ETOH, CBC, TSH3 #### [address] NRBC% 0.0 /100{WBC} Normal 0-0.5 [facility] Comment on above: Performed By: #### H S TROP, CMP, ETOH, CBC, TSH3 #### [address] Platelet mean volume (Bld) [Entitic vol] 7.1 fL Normal 6.3-10.7 [facility] Comment on above: Performed By: #### H S TROP, CMP, ETOH, CBC, TSH3 #### [place] [address] [place] Platelets (Bld) [#/Vol] 402 10*3/uL Normal 150-450 [facility] Comment on above: Performed By: #### H S TROP, CMP, ETOH, CBC, TSH3 #### [place] [address] [place] RBC (Bld) [#/Vol] 4.34 10*6/uL Normal 3.60-5.00 [facility] Comment on above: Performed By: #### H S TROP, CMP, ETOH, CBC, TSH3 #### [facility] [address] WBC (Bld) [#/Vol] 6.7 10*3/uL Normal 3.8-11.6 [facility] Comment on above: Performed By: #### H S TROP, CMP, ETOH, CBC, TSH3 #### [facility] [address] Comprehensive Metabolic Pane shaji 11-27-2022 Albumin [Mass/Vol] 4.2 g/dL Normal 3.5-5.7 [facility] Comment on above: Performed By: #### H S TROP, CMP, ETOH, CBC, TSH3 #### [facility] [address] Albumin/Globulin [Mass ratio] 1.4 {ratio} Normal [facility] Comment on above: Performed By: #### H S TROP, CMP, ETOH, CBC, TSH3 #### [address] ALP [Catalytic activity/Vol] 56 U/L Normal 34-104 [facility] Comment on above: Performed By: #### H S TROP, CMP, ETOH, CBC, TSH3 #### [facility] [address] [place] [address] ALT [Catalytic activity/Vol] 19 U/L Normal 7-52 [facility] Comment on above: Performed By: #### H S TROP, CMP, ETOH, CBC, TSH3 #### [facility] [address] [place] [address] Anion gap [Moles/Vol] 15.4 mmol/L High 6.0-15.0 [facility] Comment on above: Performed By: #### H S TROP, CMP, ETOH, CBC, TSH3 #### [address] AST [Catalytic activity/Vol] 31 U/L Normal 13-39 [facility] Comment on above: Performed By: #### H S TROP, CMP, ETOH, CBC, TSH3 #### [facility] [address] Bilirubin [Mass/Vol] 0.7 mg/dL Normal 0.3-1.0 [facility] Comment on above: Performed By: #### H S TROP, CMP, ETOH, CBC, TSH3 #### [facility] [address] Calcium [Mass/Vol] 9.4 mg/dL Normal 8.6-10.3 [facility] Comment on above: Performed By: #### H S TROP, CMP, ETOH, CBC, TSH3 #### [facility] [address] Chloride [Moles/Vol] 101 mmol/L Normal 98-107 [facility] Comment on above: Performed By: #### H S TROP, CMP, ETOH, CBC, TSH3 #### [facility] [address] CO2 [Moles/Vol] 24.9 mmol/L Normal 21.0-31.0 [facility] Comment on above: Performed By: #### H S TROP, CMP, ETOH, CBC, TSH3 #### [place] [address] [place] Creatinine [Mass/Vol] 0.83 mg/dL Normal 0.60-1.20 [facility] Comment on above: Performed By: #### H S TROP, CMP, ETOH, CBC, TSH3 #### [facility] [address] [place] [address] [place] Creatinine Clr Calc Pharmacy 110.58 [facility] Comment on above: Performed By: #### H S TROP, CMP, ETOH, CBC, TSH3 #### [facility] [address] [place] [address] [place] GFR/1.73 sq M.predicted MDRD (S/P/Bld) [Vol rate/Area] mL/min/{1.73_m2} [facility] Comment on above: Performed By: #### H S TROP, CMP, ETOH, CBC, TSH3 #### [facility] [address] Globulin (S) [Mass/Vol] 2.9 g/dL Normal F [facility] Comment on above: Performed By: #### H S TROP, CMP, ETOH, CBC, TSH3 #### [facility] [address] Glucose [Mass/Vol] 82 mg/dL Normal 70-100 [facility] Comment on above: Result Comment: [facility] Glucose Reference Range is dependent on time and content of last meal. Glucose of more than 200 mg/dL in a nonstressed, ambulatory subject supports the diagnosis of Diabetes Mellitus. ADA recommended reference range Performed By: #### H S TROP, CMP, ETOH, CBC, TSH3 #### [address] Potassium [Moles/Vol] 3.3 mmol/L Low 3.5-5.1 [facility] Comment on above: Performed By: #### H S TROP, CMP, ETOH, CBC, TSH3 #### [address] Protein [Mass/Vol] 7.1 g/dL Normal 6.4-8.9 [facility] Comment on above: Performed By: #### H S TROP, CMP, ETOH, CBC, TSH3 #### [place] [address] [place] Sodium [Moles/Vol] 138 mmol/L Normal 136-145 [facility] Comment on above: Performed By: #### H S TROP, CMP, ETOH, CBC, TSH3 #### [place] [address] [place] Urea nitrogen [Mass/Vol] 9 mg/dL Normal 7-25 [facility] Comment on above: Performed By: #### H S TROP, CMP, ETOH, CBC, TSH3 #### [address] Creatinine [Mass/volume] in Serum or PlasmaOrdered By: Sara Tripathi on 11-27-2022 Creatinine [Mass/Vol] 0.83 mg/dL 0.60-1.20 [facility] Dipstick and Microscopicon 1 Appearance (U) Turbid Critically abnormal Clear [facility] Comment on above: Order Comment: Name Collection Type:: Clean-Voided Midstream Performed By: #### H S TROP, CMP, ETOH, CBC, TSH3 #### [facility] [address] Bacteria,Urine 4+ High None Seen [facility] Comment on above: Order Comment: Name Collection Type:: Clean-Voided Midstream Performed By: #### H S TROP, CMP, ETOH, CBC, TSH3 #### [facility] [address] [place] [address] Bilirubin,Urine Negative Normal Negative [facility] Comment on above: Order Comment: Name Collection Type:: Clean-Voided Midstream Performed By: #### H S TROP, CMP, ETOH, CBC, TSH3 #### [facility] [address] [place] [address] [place] Coarse Granular Casts,Urine 0-1 Normal 0-1 [facility] Comment on above: Order Comment: Name Collection Type:: Clean-Voided Midstream Performed By: #### H S TROP, CMP, ETOH, CBC, TSH3 #### [facility] [address] [place] [address] [place] Color (U) Dark Yellow Critically abnormal Yellow [facility] Comment on above: Order Comment: Name Collection Type:: Clean-Voided Midstream Performed By: #### H S TROP, CMP, ETOH, CBC, TSH3 #### [facility] [address] [place] [address] [place] Fine Granular Casts,Urine 0-1 Normal 0-1 [facility] Comment on above: Order Comment: Name Collection Type:: Clean-Voided Midstream Performed By: #### H S TROP, CMP, ETOH, CBC, TSH3 #### [facility] [address] [place] [address] [place] Glucose Ql (U) Normal Normal Normal [facility] Comment on above: Order Comment: Name Collection Type:: Clean-Voided Midstream Performed By: #### H S TROP, CMP, ETOH, CBC, TSH3 #### [address] Hyaline Casts,Urine None Seen Normal 0-1 [facility] Comment on above: Order Comment: Name Collection Type:: Clean-Voided Midstream Performed By: #### H S TROP, CMP, ETOH, CBC, TSH3 #### [address] Ketones Ql (U) Negative Normal Negative [facility] Comment on above: Order Comment: Name Collection Type:: Clean-Voided Midstream Performed By: #### H S TROP, CMP, ETOH, CBC, TSH3 #### [address] Leukocyte esterase Test strip Ql (U) 2+ High Negative [facility] Comment on above: Order Comment: Name Collection Type:: Clean-Voided Midstream Performed By: #### H S TROP, CMP, ETOH, CBC, TSH3 #### [place] [address] [place] Nitrite,Urine Negative Normal Negative [facility] Comment on above: Order Comment: Name Collection Type:: Clean-Voided Midstream Performed By: #### H S TROP, CMP, ETOH, CBC, TSH3 #### [place] [address] [place] Occult Blood,Urine 1+ High Negative [facility] Comment on above: Order Comment: Name Collection Type:: Clean-Voided Midstream Performed By: #### H S TROP, CMP, ETOH, CBC, TSH3 #### [place] [address] [place] Other Casts,Urine None Seen Normal None Seen [facility] Comment on above: Order Comment: Name Collection Type:: Clean-Voided Midstream Performed By: #### H S TROP, CMP, ETOH, CBC, TSH3 #### [place] [address] [place] pH (U) 5.0 [pH] Normal 5.0-9.0 [facility] Comment on above: Order Comment: Name Collection Type:: Clean-Voided Midstream Performed By: #### H S TROP, CMP, ETOH, CBC, TSH3 #### [address] Protein,Urine Trace High Negative [facility] Comment on above: Order Comment: Name Collection Type:: Clean-Voided Midstream Performed By: #### H S TROP, CMP, ETOH, CBC, TSH3 #### [address] RBC,Urine 5-9 High 0-4 [facility] Comment on above: Order Comment: Name Collection Type:: Clean-Voided Midstream Performed By: #### H S TROP, CMP, ETOH, CBC, TSH3 #### [address] Specificy [place],Urine 1.023 Normal 1.001-1.030 [facility] Comment on above: Order Comment: Name Collection Type:: Clean-Voided Midstream Performed By: #### H S TROP, CMP, ETOH, CBC, TSH3 #### [address] Squamous Epithelial Cell,Urine 20-30 High 0-2 [facility] Comment on above: Order Comment: Name Collection Type:: Clean-Voided Midstream Performed By: #### H S TROP, CMP, ETOH, CBC, TSH3 #### [address] Urobilinogen,Urine Normal Normal Normal [facility] Comment on above: Order Comment: Name Collection Type:: Clean-Voided Midstream Performed By: #### H S TROP, CMP, ETOH, CBC, TSH3 #### [address] WBC,Urine 50-100 High 0-4 [facility] Comment on above: Order Comment: Name Collection Type:: Clean-Voided Midstream Performed By: #### H S TROP, CMP, ETOH, CBC, TSH3 #### [address] Drug Screen,Urineon 11-28-19 Amphetamine Screen,Urine Negative Normal Negative [facility] Comment on above: Performed By: #### H S TROP, CMP, ETOH, CBC, TSH3 #### [address] Barbiturate Screen,Urine Negative Normal Negative [facility] Comment on above: Performed By: #### H S TROP, CMP, ETOH, CBC, TSH3 #### [address] Benzodiazepines Screen,Urine Negative Normal Negative [facility] Comment on above: Performed By: #### H S TROP, CMP, ETOH, CBC, TSH3 #### [address] Cannabinoid Screen,Urine Positive High Negative [facility] Comment on above: Result Comment: Thes e are unconfirmed results and should not be used for legal purposes. Drug Cut-Off Concentration: AMPH 1000 ng/mL CARMELLA 200 ng/mL GERMAN 200 ng/mL COCM 300 ng/mL OP 300 ng/mL PCP 25 ng/mL THC 20 ng/mL PERFORMED BY: [place] [address] PATHOLOGIST [employer] KELLIE ALVARADO M.D. Performed By: #### H S TROP, CMP, ETOH, CBC, TSH3 #### [place] [address] [place] Cocaine Screen,Urine Negative Normal Negative [facility] Comment on above: Performed By: #### H S TROP, CMP, ETOH, CBC, TSH3 #### [place] [address] [place] Opiate Screen,Urine Negative Normal Negative [facility] Comment on above: Performed By: #### H S TROP, CMP, ETOH, CBC, TSH3 #### [address] Phencyclidine Screen,Urine Negative Normal Negative [facility] Comment on above: Performed By: #### H S TROP, CMP, ETOH, CBC, TSH3 #### [facility] [address] ECG 12 lead ECGon 11-27-2022 ECG 12 lead ECG [facility] [address] [place] [address] [place] [address] Electrocardiograph Report Signed Patient: Antoinette Recio MR#: [id number] : 1995 Acct:[id number] Age/Sex: 27 / F ADM Date: 11/27/22 Loc: ER Room: Type: [facility] ER Attending Dr: Ordering Provider: Sara Tripahti MD Date of Service: 11/27/22 ECG/ECG 12 lead ECG: Psychiatric Symptoms Copies to: Test Reason : Blood Pressure : / mmHG Vent. Rate : 101 BPM Atrial Rate : 101 BPM P-R Int : 148 ms QRS Dur : 082 ms QT Int : 328 ms P-R-T Axes : 079 -02 035 degrees QTc Int : 425 ms Sinus tachycardia Nonspecific ST abnormality Abnormal ECG When compared with ECG of 09-MAY-2022 00:44, No significant change was found Confirmed by SARA TRIPATHI MD ([id number]) on 11/27/2022 3:05:18 PM Referred By: Electronically Signed By:SARA TRIPATHI MD Transcribed By: MUS Signed By Sara Tripathi MD 11/27/22 1505 Normal [facility] Eosinophils Auto (Bld) [#/Vo l]Ordered By: Sara Tripathi on 11-27-2022 Eosinophils (Bld) [#/Vol] 0.1 10*3/uL 0.0-0.45 [facility] Eosinophils/100 WBC Auto (Bl d)Ordered By: Sara Tripathi on 11-27-2022 Eosinophils/100 WBC (Bld) 1.1 % . [facility] Erythrocyte distribution wid th Auto (RBC) [Ratio]Ordered By: Sara Tripathi on 11-27-2022 Erythrocyte distribution width (RBC) [Ratio] 15.9 % 11.9-15.3 [facility] Ethanol [Mass/volume] in Ser um or PlasmaOrdered By: Sara Tripathi on 11-27-2022 Ethanol [Mass/Vol] 26 mg/dL [facility] Ethanol [Mass/Vol] 0.026 % [facility] Ethyl Alcohol Profileon 11-09 Ethanol [Mass/Vol] 26 mg/dL Normal [facility] Comment on above: Performed By: #### H S TROP, CMP, ETOH, CBC, TSH3 #### [facility] [address] Percent Ethanol 0.026 % Normal [facility] Comment on above: Result Comment: PERF ORMED BY: [place] [address] PATHOLOGIST [employer] KELLIE ALVARADO M.D. Performed By: #### H S TROP, CMP, ETOH, CBC, TSH3 #### [facility] [address] Fine granular cast count in urine sediment by microscopy (number/low power field )Ordered By: Sara Tripathi on 11-27-2022 Fine Granular Casts LM.LPF (Urine sed) [#/Area] 0-1 [LPF] 0-1 [facility] Globulin Calc (S) [Mass/Vol] Ordered By: Sara Tripathi on 11-27-2022 Globulin (S) [Mass/Vol] 2.9 g/dL F [facility] Glucose [Mass/volume] in Ser um or PlasmaOrdered By: Sara Tripathi on 11-27-2022 Glucose [Mass/Vol] 82 mg/dL 70-100 [facility] Comment on above: ADA recommended refe rence rangeRandom Glucose Reference Range is dependent on time and content of last meal. Glucose of more than 200 mg/dL in a nonstressed, ambulatory subject supports the diagnosis of Diabetes Mellitus. HCG ( test) IA.rapi d Ql (U)Ordered By: Sara Tripathi on 11-27-2022 HCG ( test) Ql (U) Negative [facility] HCG,Urineon 11-27-2022 Beta HCG ( test) Ql (U) Negative Normal [facility] Comment on above: Order Comment: Name Collection Type:: Clean-Voided Midstream Result Comment: PERF ORMED BY: [facility] [address] [place] [address] PATHOLOGIST [employer] KELLIE ALVARADO M.D. Performed By: #### H S TROP, CMP, ETOH, CBC, TSH3 #### [facility] [address] Hematocrit Auto (Bld) [Volum e fraction]Ordered By: Sara Tripathi on 11-27-2022 Hematocrit (Bld) [Volume fraction] 38.0 % 34.0-46.4 [facility] Hemoglobin [Mass/volume] in BloodOrdered By: Sara Tripathi on 11-27-2022 Hemoglobin (Bld) [Mass/Vol] 12.5 g/dL 11.8-15.4 [facility] Ketones Auto test strip (U) [Mass/Vol]Ordered By: Sara Tripathi on 11-27-2022 Ketones (U) [Mass/Vol] Negative Negative [facility] Leukocytes [#/volume] correc christelle for nucleated erythrocytes in Blood by Automated counOrdered By: Sara Tripathi on 11-27-2022 WBC corrected for nucl RBC Auto (Bld) [#/Vol] 6.7 10*3/uL 3.8-11.6 [facility] Lymphocytes Auto (Bld) [#/Vo l]Ordered By: Sara Tripathi on 11-27-2022 Lymphocytes (Bld) [#/Vol] 0.8 10*3/uL 1.00-4.8 [facility] Lymphocytes/100 WBC Auto (Bl d)Ordered By: Sara Tripathi on 11-27-2022 Lymphocytes/100 WBC (Bld) 11.3 % . [facility] MCH Auto (RBC) [Entitic mass ]Ordered By: Sara Tripathi on 11-27-2022 MCH (RBC) [Entitic mass] 28.8 pg 24.7-34.3 [facility] MCHC Auto (RBC) [Mass/Vol]Or dered By: Sara Tripathi on 11-27-2022 MCHC (RBC) [Mass/Vol] 33.0 g/dL 32.0-35.0 [facility] MCV Auto (RBC) [Entitic vol] Ordered By: Sara Tripathi on 11-27-2022 MCV (RBC) [Entitic vol] 87.5 fL 80-100 [facility] Monocyte distribution width [Entitic volume] in Blood by AutomatedOrdered By: Sara Tripathi on 11-27-2022 Monocyte distribution width Auto (Bld) [Entitic vol] 17.41 % 0.00-20.00 [facility] Monocytes Auto (Bld) [#/Vol] Ordered By: Sara Tripathi on 11-27-2022 Monocytes (Bld) [#/Vol] 0.6 10*3/uL 0.0-0.8 [facility] Monocytes/100 WBC Auto (Bld) Ordered By: Sara Tripathi on 11-27-2022 Monocytes/100 WBC (Bld) 8.9 % . [facility] Neutrophils Auto (Bld) [#/Vo l]Ordered By: Sara Tripathi on 11-27-2022 Neutrophils (Bld) [#/Vol] 5.1 10*3/uL 1.8-7.7 [facility] Neutrophils/100 WBC Auto (Bl d)Ordered By: Sara Tripathi on 11-27-2022 Neutrophils/100 WBC (Bld) 75.7 % . [facility] Nitrite Test strip Ql (U)Ord ered By: Sara Tripathi on 11-27-2022 Nitrite Ql (U) Negative Negative [facility] No Panel InformationOrdered By: Sara Tripathi on 11-27-2022 Estimated GFR (CKD-EPI) > 60.0 mL/Min [facility] Creatinine Clearance (Chem 110.58 [facility] Nucleated erythrocytes [Pres ence] in Blood by Automated countOrdered By: Sara Tripathi on 11-27-2022 Nucleated RBC Auto Ql (Bld) 0.0 /100{WBC} 0-0.5 [facility] Opiates [Presence] in Urine by Screen methodOrdered By: Sara Tripathi on 11-27-2022 Opiates Screen Ql (U) Negative Negative [facility] Phencyclidine Screen Ql (U)O rdered By: Sara Tripathi on 11-27-2022 Phencyclidine Ql (U) Negative Negative [facility] Platelet mean volume Auto (B ld) [Entitic vol]Ordered By: Sara Tripathi on 11-27-2022 Platelet mean volume (Bld) [Entitic vol] 7.1 fL 6.3-10.7 [facility] Platelets Auto (Bld) [#/Vol] Ordered By: Sara Tripathi on 11-27-2022 Platelets (Bld) [#/Vol] 402 10*3/uL 150-450 [facility] Potassium [Moles/volume] in Serum or PlasmaOrdered By: Sara Tripathi on 11-27-2022 Potassium [Moles/Vol] 3.3 mmol/L 3.5-5.1 [facility] Protein Auto test strip (U) [Mass/Vol]Ordered By: Sara Tripathi on 11-27-2022 Protein (U) [Mass/Vol] Trace mg/dL Negative [facility] Protein [Mass/volume] in Ser um or PlasmaOrdered By: Sara Tripathi on 11-27-2022 Protein [Mass/Vol] 7.1 g/dL 6.4-8.9 [facility] RBC Auto (Bld) [#/Vol]Ordere d By: Sara Tripathi on 11-27-2022 RBC (Bld) [#/Vol] 4.34 10*6/uL 3.60-5.00 [facility] Serum or plasma albumin/glob ulin mass ratioOrdered By: Sara Tripathi on 11-27-2022 Albumin/Globulin [Mass ratio] 1.4 {ratio} [facility] Serum or plasma anion gap de terminationOrdered By: Sara Tripathi on 11-27-2022 Anion gap [Moles/Vol] 15.4 mmol/L 6.0-15.0 [facility] Sodium [Moles/volume] in Ser um or PlasmaOrdered By: Sara Tripathi on 11-27-2022 Sodium [Moles/Vol] 138 mmol/L 136-145 [facility] Specific gravity Auto test s trip (U) [Rel density]Ordered By: Sara Tripathi on 11-27-2022 Specific gravity (U) [Rel density] 1.023 1.001-1.030 [facility] Squamous epithelial cells de tection in urine sediment by light microscopyOrdered By: Sara Tripathi on 11-27-2022 Epithelial cells.squamous LM Ql (Urine sed) 20-30 [HPF] 0-2 [facility] Thyroid Stimulating Hormoneo n 11-27-2022 TSH Qn 2.35 m[IU]/L Normal 0.45-5.33 [facility] Comment on above: Result Comment: PERF ORMED BY: [place] [address] PATHOLOGIST [employer] KELLIE ALVARADO M.D. Performed By: #### H S TROP, CMP, ETOH, CBC, TSH3 #### [facility] [address] [place], [place] [id number] [facility] Thyrotropin [Units/volume] i n Serum or PlasmaOrdered By: Sara Tripathi on 11-27-2022 TSH Qn 2.35 m[IU]/L 0.45-5.33 [facility] Troponin I High Sensitivityo n 11-27-2022 Troponin I High Sensitivity 3.2 pg/mL Normal 0.0-15.0 [facility] Comment on above: Result Comment: PERF ORMED BY: [place] [address] PATHOLOGIST [employer]ANT KELLIE ALVARADO M.D. Performed By: #### H S TROP, CMP, ETOH, CBC, TSH3 #### [facility] [address] [place] [address] [place] Troponin I.cardiac [Mass/vol ume] in Serum or Plasma by Detection limit <= 0.01 ng/Ordered By: Sara Tripathi on 11-27-2022 Troponin I.cardiac DL <= 0.01 ng/mL [Mass/Vol] 3.2 pg/mL 0.0-15.0 [facility] Urea nitrogen [Mass/volume] in Serum or PlasmaOrdered By: Sara Tripathi on 11-27-2022 Urea nitrogen [Mass/Vol] 9 mg/dL 7-25 [facility] Urine Cultureon 11-27-2022 Bacteria identified Cx Nom (U) ORGANISM: Escherichia coli (O:ESCCOL) Anderson Count >100,000 Aerobic GLENDA Charge (NMIC56) --- SUSCEPTIBILITY -- ORGANISM: O:ESCCOL ANTIBIOTIC INTERPRETATION GLENDA Amikacin S <16 Amoxacillin/K Clavulanate R >16 Ampicillin R >16 Ampicillin/Sulbactam R >16 Aztreonam S <4 Cefazolin S <2 Cefepime S <2 Ceftazidime S <1 Ceftazidime/Avibactam S <4 Ceftolozane/Tazobactam S <2 Ceftriaxone S <1 Cefuroxime S 8 Ciprofloxacin S <0.25 Ertapenem S <0.5 Gentamicin S <2 Levofloxacin S <0.5 Meropenem S <1 Meropenem/Vaborbactam S <2 Nitrofurantoin S <32 Piperacillin/Tazobacta m S <8 Tetracycline S <4 Tigecycline S <2 Tobramycin S <2 Trimethoprim/Sulfameth oxazole R >2 S = SUSCEPTIBLE I = INTERMEDIATE R = RESISTANT BLANK = DATA NOT AVAILABLE, OR DRUG NOT ADVISABLE OR TESTED R* = RESISTANCE DUE TO EXTENDED SPECTRUM BETA-LACTAMASES ESBL = EXTENDED SPECTRUM BETA-LACTAMASE TFG = THYMIDINE-DEPENDENT STRAIN RICHARD = BETA-LACTAMASE POSITIVE IB = INDUCIBLE BETA-LACTAMASE. APPEARS IN PLACE OF 'S' WITH SPECIES KNOWN TO POSSESS INDUCIBLE BETA-LACTAMASES. POTENTIALLY THEY MAY BECOME RESISTANT TO ALL B-LACTAM DRUGS. PERFORMED BY: [place] [address] PATHOLOGIST [employer]ANT KELLIE ALVARADO M.D. [facility] Comment on above: Performed By: #### H S TROP, CMP, ETOH, CBC, TSH3 #### [facility] [address] [place] [address] Urine bacteria detection by automated methodOrdered By: Sara Tripathi on 11-27-2022 Bacteria Auto Ql (U) 4+ None Seen [facility] Urine clarity by refractomet ry automatedOrdered By: Sara Tripathi on 11-27-2022 Clarity Refractometry automated (U) Turbid Clear [facility] Urine culture routineOrdered By: Sara Tripathi on 11-27-2022 Bacteria identified Cx Nom (U) Escherichia coli [facility] Urine glucose measurement by automated test strip (mass/volume)Ordered By: Sara Tripathi on 11-27-2022 Glucose Auto test strip (U) [Mass/Vol] Normal mg/dL Normal [facility] Urine hemoglobin detection b y automated test stripOrdered By: Sara Tripathi on 11-27-2022 Hemoglobin Auto test strip Ql (U) 1+ Negative [facility] Urine leukocyte esterase det ection by automated test stripOrdered By: Sara Tripathi on 11-27-2022 Leukocyte esterase Auto test strip Ql (U) 2+ Negative [facility] Urobilinogen Auto test strip (U) [Mass/Vol]Ordered By: Sara Tripathi on 11-27-2022 Urobilinogen (U) [Mass/Vol] Normal mg/dL Normal [facility] WBC Auto (Bld) [#/Vol]Ordere d By: Sara Tripathi on 11-27-2022 WBC (Bld) [#/Vol] 6.7 10*3/uL 3.8-11.6 [facility] XR chest 1V portableon 11-27 XR chest 1V portable [facility] [place] [address] XRay Report Signed Patient: Antoinette Recio MR#: [id number] : 1995 Acct:[id number] Age/Sex: 27 / F ADM Date: 11/27/22 Loc: ER Room: Type: [facility] ER Attending Dr: Copies to: Sara Tripathi MD Ordering Provider: Sara Tripathi MD Date of Service: 11/27/22 XR/XR chest 1V portable: Psychiatric Symptoms XR chest 1V portable 11/27/2022 9:59 AM SIGNS AND SYMPTOMS: Chest pain, abdominal pain, rectal bleeding PROTOCOL: Frontal radiograph of the chest COMPARISON: None FINDINGS: The trachea is midline. The heart and mediastinal structures are within normal limits. The lung parenchyma is clear. The bony thorax is intact. Postoperative changes are noted in the left clavicle. XR/XR chest 1V portable IMPRESSION: No acute cardiopulmonary pathology. Impression dictated by: Vipul Rucker M.D.11/27/2022 11:05 AM Dictation Location: [place] [address] Transcribed By: [facility] 11/27/22 1105 Dictated By: Vipul Rucker II, MD 11/27/22 1109 Signed By: 11/27/22 110 [facility] pH Auto test strip (U)Ordere d By: Sara Tripathi on 11-27-2022 pH (U) 5.0 [pH] 5.0-9.0 [facility] Alanine aminotransferase [En zymatic activity/volume] in Serum or PlasmaOrdered By: Ji Smith on 05-11-2022 ALT [Catalytic activity/Vol] 27 U/L 7-52 [facility] Albumin [Mass/volume] in Ser um or Plasma by Bromocresol green (BCG) dye binding methoOrdered By: Ji Smith on 05-11-2022 Albumin BCG dye [Mass/Vol] 4.5 g/dL 3.5-5.7 [facility] Alkaline phosphatase [Enzyma tic activity/volume] in Serum or PlasmaOrdered By: Ji Smith on 05-11-2022 ALP [Catalytic activity/Vol] 51 U/L 34-104 [facility] Aspartate aminotransferase [ Enzymatic activity/volume] in Serum or PlasmaOrdered By: Ji Smith on 05-11-2022 AST [Catalytic activity/Vol] 33 U/L 13-39 [facility] Bilirubin.total [Mass/volume ] in Serum or PlasmaOrdered By: Ji Smith on 05-11-2022 Bilirubin [Mass/Vol] 0.7 mg/dL 0.3-1.0 [facility] Calcium [Mass/volume] in Ser um or PlasmaOrdered By: Ji Smith on 05-11-2022 Calcium [Mass/Vol] 9.7 mg/dL 8.6-10.3 [facility] Carbon dioxide, total [Moles /volume] in Serum or PlasmaOrdered By: Ji Smith on 05-11-2022 CO2 [Moles/Vol] 25.8 mmol/L 21.0-31.0 [facility] Chloride [Moles/volume] in S phil or PlasmaOrdered By: Ji Smith on 05-11-2022 Chloride [Moles/Vol] 102 mmol/L 98-107 [facility] Comprehensive Metabolic Pane shaji 05-11-2022 Albumin [Mass/Vol] 4.5 g/dL Normal 3.5-5.7 [facility] Comment on above: Performed By: #### H S TROP, CMP, ETOH, CBC, TSH3 #### [facility] [address] Albumin/Globulin [Mass ratio] 1.7 {ratio} Normal [facility] Comment on above: Performed By: #### H S TROP, CMP, ETOH, CBC, TSH3 #### [address] ALP [Catalytic activity/Vol] 51 U/L Normal 34-104 [facility] Comment on above: Performed By: #### H S TROP, CMP, ETOH, CBC, TSH3 #### [address] ALT [Catalytic activity/Vol] 27 U/L Normal 7-52 [facility] Comment on above: Performed By: #### H S TROP, CMP, ETOH, CBC, TSH3 #### [address] Anion gap [Moles/Vol] 13.8 mmol/L Normal 6.0-15.0 [facility] Comment on above: Performed By: #### H S TROP, CMP, ETOH, CBC, TSH3 #### [address] AST [Catalytic activity/Vol] 33 U/L Normal 13-39 [facility] Comment on above: Performed By: #### H S TROP, CMP, ETOH, CBC, TSH3 #### [place] [address] [place] Bilirubin [Mass/Vol] 0.7 mg/dL Normal 0.3-1.0 [facility] Comment on above: Performed By: #### H S TROP, CMP, ETOH, CBC, TSH3 #### [address] Calcium [Mass/Vol] 9.7 mg/dL Normal 8.6-10.3 [facility] Comment on above: Performed By: #### H S TROP, CMP, ETOH, CBC, TSH3 #### [facility] [address] Chloride [Moles/Vol] 102 mmol/L Normal 98-107 [facility] Comment on above: Performed By: #### H S TROP, CMP, ETOH, CBC, TSH3 #### [address] CO2 [Moles/Vol] 25.8 mmol/L Normal 21.0-31.0 [facility] Comment on above: Performed By: #### H S TROP, CMP, ETOH, CBC, TSH3 #### [address] Creatinine [Mass/Vol] 0.68 mg/dL Normal 0.60-1.20 [facility] Comment on above: Performed By: #### H S TROP, CMP, ETOH, CBC, TSH3 #### [address] Creatinine Clr Calc Pharmacy 129.74 Normal [facility] Comment on above: Result Comment: PERF ORMED BY: [place] [address] PATHOLOGIST [employer]ANT KELLIE ALVARADO M.D. Performed By: #### H S TROP, CMP, ETOH, CBC, TSH3 #### [address] GFR/1.73 sq M.predicted MDRD (S/P/Bld) [Vol rate/Area] mL/min/{1.73_m2} Normal [facility] Comment on above: Performed By: #### H S TROP, CMP, ETOH, CBC, TSH3 #### [address] Globulin (S) [Mass/Vol] 2.7 g/dL Normal [facility] Comment on above: Performed By: #### H S TROP, CMP, ETOH, CBC, TSH3 #### [address] Glucose [Mass/Vol] 93 mg/dL Normal 70-100 [facility] Comment on above: Result Comment: [facility] Glucose Reference Range is dependent on time and content of last meal. Glucose of more than 200 mg/dL in a nonstressed, ambulatory subject supports the diagnosis of Diabetes Mellitus. ADA recommended reference range Performed By: #### H S TROP, CMP, ETOH, CBC, TSH3 #### [facility] [address] Potassium [Moles/Vol] 3.6 mmol/L Normal 3.5-5.1 [facility] Comment on above: Performed By: #### H S TROP, CMP, ETOH, CBC, TSH3 #### [address] Protein [Mass/Vol] 7.2 g/dL Normal 6.4-8.9 [facility] Comment on above: Performed By: #### H S TROP, CMP, ETOH, CBC, TSH3 #### [address] Sodium [Moles/Vol] 138 mmol/L Normal 136-145 [facility] Comment on above: Performed By: #### H S TROP, CMP, ETOH, CBC, TSH3 #### [address] Urea nitrogen [Mass/Vol] 11 mg/dL Normal 7-25 [facility] Comment on above: Performed By: #### H S TROP, CMP, ETOH, CBC, TSH3 #### [address] Creatinine [Mass/volume] in Serum or PlasmaOrdered By: Ji Smith on 05-11-2022 Creatinine [Mass/Vol] 0.68 mg/dL 0.60-1.20 [facility] Globulin Calc (S) [Mass/Vol] Ordered By: Ji Smith on 05-11-2022 Globulin (S) [Mass/Vol] 2.7 g/dL [facility] Glucose [Mass/volume] in Ser um or PlasmaOrdered By: Ji Smith on 05-11-2022 Glucose [Mass/Vol] 93 mg/dL 70-100 [facility] Comment on above: ADA recommended refe rence rangeRandom Glucose Reference Range is dependent on time and content of last meal. Glucose of more than 200 mg/dL in a nonstressed, ambulatory subject supports the diagnosis of Diabetes Mellitus. No Panel InformationOrdered By: Ji Smith on 05-11-2022 Estimated GFR (CKD-EPI) > 60.0 mL/Min [facility] Creatinine Clearance (Chem 129.74 [facility] Potassium [Moles/volume] in Serum or PlasmaOrdered By: Ji Smith on 05-11-2022 Potassium [Moles/Vol] 3.6 mmol/L 3.5-5.1 [facility] Protein [Mass/volume] in Ser um or PlasmaOrdered By: Ji Smith on 05-11-2022 Protein [Mass/Vol] 7.2 g/dL 6.4-8.9 [facility] Serum or plasma albumin/glob ulin mass ratioOrdered By: Ji Smith on 05-11-2022 Albumin/Globulin [Mass ratio] 1.7 {ratio} [facility] Serum or plasma anion gap de terminationOrdered By: Ji Smith on 05-11-2022 Anion gap [Moles/Vol] 13.8 mmol/L 6.0-15.0 [facility] Sodium [Moles/volume] in Ser um or PlasmaOrdered By: Ji Smith on 05-11-2022 Sodium [Moles/Vol] 138 mmol/L 136-145 [facility] Urea nitrogen [Mass/volume] in Serum or PlasmaOrdered By: Ji Smith on 05-11-2022 Urea nitrogen [Mass/Vol] 11 mg/dL 7-25 [facility] Acetaminophenon 05-09-2022 Acetaminophen [Mass/Vol] 1.1 ug/mL Low 10.0-30.0 [facility] Comment on above: Result Comment: PERF ORMED BY: [place] [address] PATHOLOGIST [employer] CONS[employer]ANT KELLIE ALVARADO M.D. Performed By: #### A CET, JAMIE #### [facility] [address] [place] [address] Acetaminophen [Mass/volume] in Serum or PlasmaOrdered By: Henry Hernandez on 05-09-2022 Acetaminophen [Mass/Vol] 1.1 ug/mL 10.0-30.0 [facility] Alanine aminotransferase [En zymatic activity/volume] in Serum or PlasmaOrdered By: Henry Hernandez on 05-09-2022 ALT [Catalytic activity/Vol] 40 U/L 7-52 [facility] Albumin [Mass/volume] in Ser um or Plasma by Bromocresol green (BCG) dye binding methoOrdered By: Henry Hernandez on 05-09-2022 Albumin BCG dye [Mass/Vol] 5.0 g/dL 3.5-5.7 [facility] Alkaline phosphatase [Enzyma tic activity/volume] in Serum or PlasmaOrdered By: Henry Hernandez on 05-09-2022 ALP [Catalytic activity/Vol] 61 U/L 34-104 [facility] Amphetamine Screen Ql (U)Ord ered By: Henry Hernandez on 05-09-2022 Amphetamines Ql (U) Negative Negative [facility] Aspartate aminotransferase [ Enzymatic activity/volume] in Serum or PlasmaOrdered By: Henry Hernandez on 05-09-2022 AST [Catalytic activity/Vol] 71 U/L 13-39 [facility] Automated epithelial cells c ount in urine sediment (number/area)Ordered By: Henry Hernandez on 05-09-2022 Epithelial cells Auto (Urine sed) [#/Area] 0-1 [HPF] 0-2 [facility] Automated erythrocytes count in urine sediment (number/area)Ordered By: Henry Hernandez on 05-09-2022 RBC Auto (Urine sed) [#/Area] 3-4 [HPF] 0-4 [facility] Automated leukocytes count i n urine sediment (number/area)Ordered By: Henry Hernandez on 05-09-2022 WBC Auto (Urine sed) [#/Area] 0-1 [HPF] 0-4 [facility] Barbiturates [Presence] in U rine by Screen methodOrdered By: Henry Hernandez on 05-09-2022 Barbiturates Screen Ql (U) Negative Negative [facility] Basophils Auto (Bld) [#/Vol] Ordered By: Henry Hernandez on 05-09-2022 Basophils (Bld) [#/Vol] 0.1 10*3/uL 0.0-0.2 [facility] Basophils/100 WBC Auto (Bld) Ordered By: Henry Hernandez on 05-09-2022 Basophils/100 WBC (Bld) 0.9 % . [facility] Benzodiazepines Screen Ql (U )Ordered By: Henry Hernandez on 05-09-2022 Benzodiazepines Ql (U) Negative Negative [facility] Benzoylecgonine [Presence] i n Urine by Screen methodOrdered By: Henry Hernandez on 05-09-2022 Benzoylecgonine Screen Ql (U) Negative Negative [facility] Bilirubin Test strip Ql (U)O rdered By: Henry Hernandez on 05-09-2022 Bilirubin Ql (U) Negative Negative [facility] Bilirubin.total [Mass/volume ] in Serum or PlasmaOrdered By: Henry Hernandez on 05-09-2022 Bilirubin [Mass/Vol] 0.4 mg/dL 0.3-1.0 [facility] Calcium [Mass/volume] in Ser um or PlasmaOrdered By: Henry Hernandez on 05-09-2022 Calcium [Mass/Vol] 9.4 mg/dL 8.6-10.3 [facility] Cannabinoids [Presence] in U rine by Screen methodOrdered By: Henry Hernandez on 05-09-2022 Cannabinoids Screen Ql (U) Positive Negative [facility] Comment on above: These are unconfirme d results and should not be used for legal purposes. Drug Cut-Off Concentration: AMPH 1000 ng/mL CARMELLA 200 ng/mL GERMAN 200 ng/mL COCM 300 ng/mL OP 300 ng/mL PCP 25 ng/mL THC 20 ng/mL Carbon dioxide, total [Moles /volume] in Serum or PlasmaOrdered By: Henry Hernandez on 05-09-2022 CO2 [Moles/Vol] 24.5 mmol/L 21.0-31.0 [facility] Chloride [Moles/volume] in S phil or PlasmaOrdered By: Henry Hernandez on 05-09-2022 Chloride [Moles/Vol] 102 mmol/L 98-107 [facility] Cholesterol [Mass/volume] in Serum or PlasmaOrdered By: Ji Smith on 05-09-2022 Cholesterol [Mass/Vol] 336 mg/dL 140-200 [facility] Comment on above: Chol less than 200 m g/dl low riskChol 201-239 mg/dl borderline riskChol 240 mg/dl and greater high risk Cholesterol in LDL Calc [Mas s/Vol]Ordered By: Ji Smith on 05-09-2022 Cholesterol in LDL [Mass/Vol] 133 mg/dL 0-100 [facility] Comment on above: LDL ATP III CLASSIFI CATIONLDL less than 100 mg/dL OptimalLDL 100-129 mg/dL Near or above optimalLDL 130-159 mg/dL Borderline highLDL 160-189 mg/dL HighLDL greater than 189 mg/dL Very high Cholesterol in VLDL Calc [Ma ss/Vol]Ordered By: Ji Smith on 05-09-2022 Cholesterol in VLDL [Mass/Vol] 21 mg/dL [facility] Color Auto (U)Ordered By: Valerie Hernandez on 05-09-2022 Color (U) Yellow Yellow [facility] Complete Blood Count Auto Di ffon 05-09-2022 Basophils (Bld) [#/Vol] 0.1 10*3/uL Normal 0.0-0.2 [facility] Comment on above: Result Comment: PERF ORMED BY: [address] [address] PATHOLOGIST [employer] KELLIE ALVARADO M.D. Performed By: #### H S TROP, CMP, ETOH, CBC, TSH3 #### [facility] [address] Basophils/100 WBC (Bld) 0.9 % Normal . [facility] Comment on above: Performed By: #### H S TROP, CMP, ETOH, CBC, TSH3 #### [address] Eosinophils (Bld) [#/Vol] 0.1 10*3/uL Normal 0.0-0.45 [facility] Comment on above: Performed By: #### H S TROP, CMP, ETOH, CBC, TSH3 #### [address] Eosinophils/100 WBC (Bld) 1.3 % Normal . [facility] Comment on above: Performed By: #### H S TROP, CMP, ETOH, CBC, TSH3 #### [address] Erythrocyte distribution width (RBC) [Ratio] 17.8 % High 11.9-15.3 [facility] Comment on above: Performed By: #### H S TROP, CMP, ETOH, CBC, TSH3 #### [address] Hematocrit (Bld) [Volume fraction] 40.2 % Normal 34.0-46.4 [facility] Comment on above: Performed By: #### H S TROP, CMP, ETOH, CBC, TSH3 #### [address] Hemoglobin (Bld) [Mass/Vol] 13.1 g/dL Normal 11.8-15.4 [facility] Comment on above: Performed By: #### H S TROP, CMP, ETOH, CBC, TSH3 #### [address] Lymphocytes (Bld) [#/Vol] 1.4 10*3/uL Normal 1.00-4.8 [facility] Comment on above: Performed By: #### H S TROP, CMP, ETOH, CBC, TSH3 #### [place] [address] [place] Lymphocytes/100 WBC (Bld) 22.7 % Normal . [facility] Comment on above: Performed By: #### H S TROP, CMP, ETOH, CBC, TSH3 #### [address] MCH (RBC) [Entitic mass] 29.4 pg Normal 24.7-34.3 [facility] Comment on above: Performed By: #### H S TROP, CMP, ETOH, CBC, TSH3 #### [address] MCV (RBC) [Entitic vol] 90.0 fL Normal 80-100 [facility] Comment on above: Performed By: #### H S TROP, CMP, ETOH, CBC, TSH3 #### [address] Mean Corpuscular HGB Conc 32.7 g/dL Normal 32.0-35.0 [facility] Comment on above: Performed By: #### H S TROP, CMP, ETOH, CBC, TSH3 #### [address] Monocytes (Bld) [#/Vol] 0.4 10*3/uL Normal 0.0-0.8 [facility] Comment on above: Performed By: #### H S TROP, CMP, ETOH, CBC, TSH3 #### [address] Monocytes/100 WBC (Bld) 15.97 % Normal 0.00-20.00 [facility] Comment on above: Performed By: #### H S TROP, CMP, ETOH, CBC, TSH3 #### [address] Monocytes/100 WBC (Bld) 6.5 % Normal . [facility] Comment on above: Performed By: #### H S TROP, CMP, ETOH, CBC, TSH3 #### [address] Neutrophils (Bld) [#/Vol] 4.3 10*3/uL Normal 1.8-7.7 [facility] Comment on above: Performed By: #### H S TROP, CMP, ETOH, CBC, TSH3 #### [address] Neutrophils/100 WBC (Bld) 68.6 % Normal . [facility] Comment on above: Performed By: #### H S TROP, CMP, ETOH, CBC, TSH3 #### [address] NRBC% 0.0 /100{WBC} Normal 0-0.5 [facility] Comment on above: Performed By: #### H S TROP, CMP, ETOH, CBC, TSH3 #### [address] Platelet mean volume (Bld) [Entitic vol] 6.7 fL Normal 6.3-10.7 [facility] Comment on above: Performed By: #### H S TROP, CMP, ETOH, CBC, TSH3 #### [address] Platelets (Bld) [#/Vol] 330 10*3/uL Normal 150-450 [facility] Comment on above: Performed By: #### H S TROP, CMP, ETOH, CBC, TSH3 #### [address] RBC (Bld) [#/Vol] 4.46 10*6/uL Normal 3.60-5.00 [facility] Comment on above: Performed By: #### H S TROP, CMP, ETOH, CBC, TSH3 #### [address] WBC (Bld) [#/Vol] 6.3 10*3/uL Normal 3.8-11.6 [facility] Comment on above: Performed By: #### H S TROP, CMP, ETOH, CBC, TSH3 #### [address] Comprehensive Metabolic Pane shaji 05-09-2022 Albumin [Mass/Vol] 5.0 g/dL Normal 3.5-5.7 [facility] Comment on above: Performed By: #### H S TROP, CMP, ETOH, CBC, TSH3 #### [facility] [address] [place] [address] Albumin/Globulin [Mass ratio] 1.8 {ratio} Normal [facility] Comment on above: Performed By: #### H S TROP, CMP, ETOH, CBC, TSH3 #### [address] ALP [Catalytic activity/Vol] 61 U/L Normal 34-104 [facility] Comment on above: Performed By: #### H S TROP, CMP, ETOH, CBC, TSH3 #### [address] ALT [Catalytic activity/Vol] 40 U/L Normal 7-52 [facility] Comment on above: Performed By: #### H S TROP, CMP, ETOH, CBC, TSH3 #### [address] Anion gap [Moles/Vol] 18.4 mmol/L High 6.0-15.0 [facility] Comment on above: Performed By: #### H S TROP, CMP, ETOH, CBC, TSH3 #### [address] AST [Catalytic activity/Vol] 71 U/L High 13-39 [facility] Comment on above: Performed By: #### H S TROP, CMP, ETOH, CBC, TSH3 #### [address] Bilirubin [Mass/Vol] 0.4 mg/dL Normal 0.3-1.0 [facility] Comment on above: Performed By: #### H S TROP, CMP, ETOH, CBC, TSH3 #### [address] Calcium [Mass/Vol] 9.4 mg/dL Normal 8.6-10.3 [facility] Comment on above: Performed By: #### H S TROP, CMP, ETOH, CBC, TSH3 #### [facility] [address] Chloride [Moles/Vol] 102 mmol/L Normal 98-107 [facility] Comment on above: Performed By: #### H S TROP, CMP, ETOH, CBC, TSH3 #### [address] CO2 [Moles/Vol] 24.5 mmol/L Normal 21.0-31.0 [facility] Comment on above: Performed By: #### H S TROP, CMP, ETOH, CBC, TSH3 #### [address] Creatinine [Mass/Vol] 0.76 mg/dL Normal 0.60-1.20 [facility] Comment on above: Performed By: #### H S TROP, CMP, ETOH, CBC, TSH3 #### [address] Creatinine Clr Calc Pharmacy 114.17 [facility] Comment on above: Result Comment: PERF ORMED BY: [place] [address] PATHOLOGIST [employer] KELLIE ALVARADO M.D. Performed By: #### H S TROP, CMP, ETOH, CBC, TSH3 #### [address] GFR/1.73 sq M.predicted MDRD (S/P/Bld) [Vol rate/Area] mL/min/{1.73_m2} [facility] Comment on above: Performed By: #### H S TROP, CMP, ETOH, CBC, TSH3 #### [address] Globulin (S) [Mass/Vol] 2.8 g/dL Normal [facility] Comment on above: Performed By: #### H S TROP, CMP, ETOH, CBC, TSH3 #### [address] Glucose [Mass/Vol] 85 mg/dL Normal 70-100 [facility] Comment on above: Result Comment: [place] Glucose Reference Range is dependent on time and content of last meal. Glucose of more than 200 mg/dL in a nonstressed, ambulatory subject supports the diagnosis of Diabetes Mellitus. ADA recommended reference range Performed By: #### H S TROP, CMP, ETOH, CBC, TSH3 #### [facility] [address] Potassium [Moles/Vol] 3.9 mmol/L Normal 3.5-5.1 [facility] Comment on above: Performed By: #### H S TROP, CMP, ETOH, CBC, TSH3 #### [facility] [address] Protein [Mass/Vol] 7.8 g/dL Normal 6.4-8.9 [facility] Comment on above: Performed By: #### H S TROP, CMP, ETOH, CBC, TSH3 #### [address] Sodium [Moles/Vol] 141 mmol/L Normal 136-145 [facility] Comment on above: Performed By: #### H S TROP, CMP, ETOH, CBC, TSH3 #### [address] Urea nitrogen [Mass/Vol] 11 mg/dL Normal 7-25 [facility] Comment on above: Performed By: #### H S TROP, CMP, ETOH, CBC, TSH3 #### [address] Creatinine [Mass/volume] in Serum or PlasmaOrdered By: Henry Hernandez on 05-09-2022 Creatinine [Mass/Vol] 0.76 mg/dL 0.60-1.20 [facility] Dipstick and Microscopicon 0 05-09-2022 Appearance (U) Clear Normal Clear [facility] Comment on above: Order Comment: Name Collection Type:: Clean-Voided Midstream Performed By: #### H S TROP, CMP, ETOH, CBC, TSH3 #### [facility] [address] [place] [address] [place] Bacteria,Urine None Seen Normal None Seen [facility] Comment on above: Order Comment: Name Collection Type:: Clean-Voided Midstream Performed By: #### H S TROP, CMP, ETOH, CBC, TSH3 #### [facility] [address] [place] [address] Bilirubin,Urine Negative Normal Negative [facility] Comment on above: Order Comment: Name Collection Type:: Clean-Voided Midstream Performed By: #### H S TROP, CMP, ETOH, CBC, TSH3 #### [facility] [address] [place] [address] Color (U) Yellow Normal Yellow [facility] Comment on above: Order Comment: Name Collection Type:: Clean-Voided Midstream Performed By: #### H S TROP, CMP, ETOH, CBC, TSH3 #### [facility] [address] [place] [address] Glucose Ql (U) Normal Normal Normal [facility] Comment on above: Order Comment: Name Collection Type:: Clean-Voided Midstream Performed By: #### H S TROP, CMP, ETOH, CBC, TSH3 #### [facility] [address] [place] [address] [place] Ketones Ql (U) Trace High Negative [facility] Comment on above: Order Comment: Name Collection Type:: Clean-Voided Midstream Performed By: #### H S TROP, CMP, ETOH, CBC, TSH3 #### [facility] [address] [place] [address] [place] Leukocyte esterase Test strip Ql (U) 1+ High Negative [facility] Comment on above: Order Comment: Name Collection Type:: Clean-Voided Midstream Performed By: #### H S TROP, CMP, ETOH, CBC, TSH3 #### [facility] [address] [place] [address] [place] Nitrite,Urine Negative Normal Negative [facility] Comment on above: Order Comment: Name Collection Type:: Clean-Voided Midstream Performed By: #### H S TROP, CMP, ETOH, CBC, TSH3 #### [facility] [address] [place] [address] [place] Occult Blood,Urine 1+ High Negative [facility] Comment on above: Order Comment: Name Collection Type:: Clean-Voided Midstream Performed By: #### H S TROP, CMP, ETOH, CBC, TSH3 #### [address] pH (U) 5.5 [pH] Normal 5.0-9.0 [facility] Comment on above: Order Comment: Name Collection Type:: Clean-Voided Midstream Performed By: #### H S TROP, CMP, ETOH, CBC, TSH3 #### [address] Protein (U) [Mass/Vol] 30 mg/dL High Negative [facility] Comment on above: Order Comment: Name Collection Type:: Clean-Voided Midstream Performed By: #### H S TROP, CMP, ETOH, CBC, TSH3 #### [facility] [address] [place] [address] RBC,Urine 3-4 Normal 0-4 [facility] Comment on above: Order Comment: Name Collection Type:: Clean-Voided Midstream Performed By: #### H S TROP, CMP, ETOH, CBC, TSH3 #### [address] Specificy [place],Urine 1.013 Normal 1.001-1.030 [facility] Comment on above: Order Comment: Name Collection Type:: Clean-Voided Midstream Performed By: #### H S TROP, CMP, ETOH, CBC, TSH3 #### [address] Squamous Epithelial Cell,Urine 0-1 Normal 0-2 [facility] Comment on above: Order Comment: Name Collection Type:: Clean-Voided Midstream Performed By: #### H S TROP, CMP, ETOH, CBC, TSH3 #### [address] Urobilinogen,Urine Normal Normal Normal [facility] Comment on above: Order Comment: Name Collection Type:: Clean-Voided Midstream Performed By: #### H S TROP, CMP, ETOH, CBC, TSH3 #### [address] WBC LM.HPF (Urine sed) [#/Area] 0 /[HPF] Normal 0-4 [facility] Comment on above: Order Comment: Name Collection Type:: Clean-Voided Midstream Performed By: #### H S TROP, CMP, ETOH, CBC, TSH3 #### [address] Drug Screen,Urineon 05-10-19 Amphetamine Screen,Urine Negative Normal Negative [facility] Comment on above: Performed By: #### U HCG, URDS, ADDONUAPLUS #### [address] Barbiturate Screen,Urine Negative Normal Negative [facility] Comment on above: Performed By: #### U HCG, URDS, ADDONUAPLUS #### [address] Benzodiazepines Screen,Urine Negative Normal Negative [facility] Comment on above: Performed By: #### U HCG, URDS, ADDONUAPLUS #### [address] Cannabinoid Screen,Urine Positive High Negative [facility] Comment on above: Result Comment: Thes e are unconfirmed results and should not be used for legal purposes. Drug Cut-Off Concentration: AMPH 1000 ng/mL CARMELLA 200 ng/mL GERMAN 200 ng/mL COCM 300 ng/mL OP 300 ng/mL PCP 25 ng/mL THC 20 ng/mL PERFORMED BY: [place] [address] PATHOLOGIST [employer] KELLIE ALVARADO M.D. Performed By: #### U HCG, URDS, ADDONUAPLUS #### [address] Cocaine Screen,Urine Negative Normal Negative [facility] Comment on above: Performed By: #### U HCG, URDS, ADDONUAPLUS #### [place] [id number] [place] Opiate Screen,Urine Negative Normal Negative [facility] Comment on above: Performed By: #### U HCG, URDS, ADDONUAPLUS #### [facility] [address] Phencyclidine Screen,Urine Negative Normal Negative [facility] Comment on above: Performed By: #### U HCG, URDS, ADDONUAPLUS #### [facility] [address] ECG 12 lead ECGon 05-09-2022 ECG 12 lead ECG [facility] [place] [address] [place] [address] Electrocardiograph Report Signed Patient: Antoinette Recio MR#: [id number] : 1995 Acct:[id number] Age/Sex: 27 / F ADM Date: 05/09/22 Loc: Room: [address] [place] [address] Type: ADM IN Attending Dr: Tiana Smith MD Ordering Provider: Henry Hernandez DO Date of Service: 05/09/22 ECG/ECG 12 lead ECG: Psychiatric Symptoms Copies to: Test Reason : Blood Pressure : / mmHG Vent. Rate : 099 BPM Atrial Rate : 099 BPM P-R Int : 150 ms QRS Dur : 088 ms QT Int : 366 ms P-R-T Axes : 060 013 041 degrees QTc Int : 469 ms Normal sinus rhythm Confirmed by Henry Hernnadez DO ([id number]) on 05/09/2022 4:07:02 AM Referred By: Electronically Signed By:Henry Hernandez DO Transcribed By: MUS Signed By Henry Hernandez DO [id number] Normal [facility] Eosinophils Auto (Bld) [#/Vo l]Ordered By: Henry Hernandez on 05-09-2022 Eosinophils (Bld) [#/Vol] 0.1 10*3/uL 0.0-0.45 [facility] Eosinophils/100 WBC Auto (Bl d)Ordered By: Henry Hernandez on 05-09-2022 Eosinophils/100 WBC (Bld) 1.3 % . [facility] Erythrocyte distribution wid th Auto (RBC) [Ratio]Ordered By: Henry Hernandez on 05-09-2022 Erythrocyte distribution width (RBC) [Ratio] 17.8 % 11.9-15.3 [facility] Ethanol [Mass/volume] in Ser um or PlasmaOrdered By: Henry Hernandez on 05-09-2022 Ethanol [Mass/Vol] 302 mg/dL [facility] Ethanol [Mass/Vol] 0.302 % [facility] Ethyl Alcohol Profileon 04-11 Ethanol [Mass/Vol] 302 mg/dL Normal [facility] Comment on above: Performed By: #### H S TROP, CMP, ETOH, CBC, TSH3 #### [facility] [address] [place] [address] Percent Ethanol 0.302 % Normal [facility] Comment on above: Result Comment: PERF ORMED BY: [place] [address] PATHOLOGIST [employer] KELLIE ALVARADO M.D. Performed By: #### H S TROP, CMP, ETOH, CBC, TSH3 #### [facility] [address] [place] [address] Globulin Calc (S) [Mass/Vol] Ordered By: Henry Hernandez on 05-09-2022 Globulin (S) [Mass/Vol] 2.8 g/dL F [facility] Glucose [Mass/volume] in Ser um or PlasmaOrdered By: Henry Hernandez on 05-09-2022 Glucose [Mass/Vol] 85 mg/dL 70-100 [facility] Comment on above: ADA recommended refe rence rangeRandom Glucose Reference Range is dependent on time and content of last meal. Glucose of more than 200 mg/dL in a nonstressed, ambulatory subject supports the diagnosis of Diabetes Mellitus. HCG ( test) IA.rapi d Ql (U)Ordered By: Henry Hernandez on 05-09-2022 HCG ( test) Ql (U) Negative [facility] HCG,Urineon 05-09-2022 Beta HCG ( test) Ql (U) Negative Normal [facility] Comment on above: Order Comment: Name Collection Type:: Clean-Voided Midstream Result Comment: PERF ORMED BY: [place] [address] PATHOLOGIST [employer] KELLIE ALVARADO M.D. Performed By: #### H S TROP, CMP, ETOH, CBC, TSH3 #### [facility] [address] Hematocrit Auto (Bld) [Volum e fraction]Ordered By: Henry Hernandez on 05-09-2022 Hematocrit (Bld) [Volume fraction] 40.2 % 34.0-46.4 [facility] Hemoglobin [Mass/volume] in BloodOrdered By: Henry Hernandez on 05-09-2022 Hemoglobin (Bld) [Mass/Vol] 13.1 g/dL 11.8-15.4 [facility] Ketones Auto test strip (U) [Mass/Vol]Ordered By: Henry Hernandez on 05-09-2022 Ketones (U) [Mass/Vol] Trace Negative [facility] Leukocytes [#/volume] correc christelle for nucleated erythrocytes in Blood by Automated counOrdered By: Henry Hernandez on 05-09-2022 WBC corrected for nucl RBC Auto (Bld) [#/Vol] 6.3 10*3/uL 3.8-11.6 [facility] Lipid Panelon 05-09-2022 Cholesterol [Mass/Vol] 336 mg/dL High 140-200 [facility] Comment on above: Order Comment: FRANKIE Shine Comment USE FROM ER PLEASE Result Comment: Chol less than 200 mg/dl low risk Chol 201-239 mg/dl borderline risk Chol 240 mg/dl and greater high risk Performed By: #### H S TROP, CMP, ETOH, CBC, TSH3 #### [facility] [address] [place] [address] Cholesterol in HDL [Mass/Vol] 182 mg/dL High 35-85 [facility] Comment on above: Order Comment: FRANKIE Shine Comment USE FROM ER PLEASE Result Comment: HDL CHOL ATP-III CLASSIFICATION Cardiovascular Risk HDL > or equal to 60 mg/dL LOW HDL < 40 mg/dL HIGH Performed By: #### H S TROP, CMP, ETOH, CBC, TSH3 #### [facility] [address] Cholesterol.total/Sarah sterol in HDL [Mass ratio] 1.8 {ratio} Normal <5.0 [facility] Comment on above: Order Comment: FRANKIE Shine Comment USE FROM ER PLEASE Performed By: #### H S TROP, CMP, ETOH, CBC, TSH3 #### [facility] [address] LDL Cholesterol,Calculated 133 mg/dL High 0-100 [facility] Comment on above: Order Comment: FRANKIE Shine Comment USE FROM ER PLEASE Result Comment: LDL ATP III CLASSIFICATION LDL less than 100 mg/dL Optimal LDL 100-129 mg/dL Near or above optimal LDL 130-159 mg/dL Borderline high LDL 160-189 mg/dL High LDL greater than 189 mg/dL Very high Performed By: #### H S TROP, CMP, ETOH, CBC, TSH3 #### [facility] [address] Triglyceride w/Reflex 107 mg/dL Normal 0-149 [facility] Comment on above: Order Comment: FRANKIE Shine Comment USE FROM ER PLEASE Result Comment: TRIG ATP III CLASSIFICATION TRIG less than 150 mg/dL Normal TRIG 150-199 mg/dL Borderline high TRIG 200-500 mg/dL High TRIG greater than 500 mg/dL Very high Standard traceable to the Center for Disease Conrtrol and Prevention (CDC) test method. Performed By: #### H S TROP, CMP, ETOH, CBC, TSH3 #### [facility] [address] VLDL CHOLESTEROL 21 mg/dL Normal [facility] Comment on above: Order Comment: FRANKIE Shine Comment USE FROM ER PLEASE Performed By: #### H S TROP, CMP, ETOH, CBC, TSH3 #### [facility] [address] Lymphocytes Auto (Bld) [#/Vo l]Ordered By: Henry Hernandez on 05-09-2022 Lymphocytes (Bld) [#/Vol] 1.4 10*3/uL 1.00-4.8 [facility] Lymphocytes/100 WBC Auto (Bl d)Ordered By: Henry Hernandez on 05-09-2022 Lymphocytes/100 WBC (Bld) 22.7 % . [facility] MCH Auto (RBC) [Entitic mass ]Ordered By: Henry Hernandez on 05-09-2022 MCH (RBC) [Entitic mass] 29.4 pg 24.7-34.3 [facility] MCHC Auto (RBC) [Mass/Vol]Or dered By: Henry Hernandez on 05-09-2022 MCHC (RBC) [Mass/Vol] 32.7 g/dL 32.0-35.0 Fir [facility] MCV Auto (RBC) [Entitic vol] Ordered By: Henry Hernandez on 05-09-2022 MCV (RBC) [Entitic vol] 90.0 fL 80-100 F [facility] Monocyte distribution width [Entitic volume] in Blood by AutomatedOrdered By: Henry Hernandez on 05-09-2022 Monocyte distribution width Auto (Bld) [Entitic vol] 15.97 % 0.00-20.00 [facility] Monocytes Auto (Bld) [#/Vol] Ordered By: Henry Hernandez on 05-09-2022 Monocytes (Bld) [#/Vol] 0.4 10*3/uL 0.0-0.8 [facility] Monocytes/100 WBC Auto (Bld) Ordered By: Henry Hernandez on 05-09-2022 Monocytes/100 WBC (Bld) 6.5 % . [facility] Neutrophils Auto (Bld) [#/Vo l]Ordered By: Henry Hernandez on 05-09-2022 Neutrophils (Bld) [#/Vol] 4.3 10*3/uL 1.8-7.7 [facility] Neutrophils/100 WBC Auto (Bl d)Ordered By: Henry Hernandez on 05-09-2022 Neutrophils/100 WBC (Bld) 68.6 % . [facility] Nitrite Test strip Ql (U)Ord ered By: Henry Hernandez on 05-09-2022 Nitrite Ql (U) Negative Negative [facility] No Panel InformationOrdered By: Henry Hernandez on 05-09-2022 Estimated GFR (CKD-EPI) > 60.0 mL/Min [facility] Creatinine Clearance (Chem 114.17 [facility] Nucleated erythrocytes [Pres ence] in Blood by Automated countOrdered By: Henry Hernandez on 05-09-2022 Nucleated RBC Auto Ql (Bld) 0.0 /100{WBC} 0-0.5 [facility] Opiates [Presence] in Urine by Screen methodOrdered By: Henry Hernandez on 05-09-2022 Opiates Screen Ql (U) Negative Negative [facility] Phencyclidine Screen Ql (U)O rdered By: Henry Hernandez on 05-09-2022 Phencyclidine Ql (U) Negative Negative [facility] Platelet mean volume Auto (B ld) [Entitic vol]Ordered By: Henry Hernandez on 05-09-2022 Platelet mean volume (Bld) [Entitic vol] 6.7 fL 6.3-10.7 [facility] Platelets Auto (Bld) [#/Vol] Ordered By: Henry Hernandez on 05-09-2022 Platelets (Bld) [#/Vol] 330 10*3/uL 150-450 [facility] Potassium [Moles/volume] in Serum or PlasmaOrdered By: Henry Hernandez on 05-09-2022 Potassium [Moles/Vol] 3.9 mmol/L 3.5-5.1 [facility] Protein Auto test strip (U) [Mass/Vol]Ordered By: Henry Hernandez on 05-09-2022 Protein (U) [Mass/Vol] 30 mg/dL Negative [facility] Protein [Mass/volume] in Ser um or PlasmaOrdered By: Henry Hernandez on 05-09-2022 Protein [Mass/Vol] 7.8 g/dL 6.4-8.9 [facility] RBC Auto (Bld) [#/Vol]Ordere d By: Henry Hernandez on 05-09-2022 RBC (Bld) [#/Vol] 4.46 10*6/uL 3.60-5.00 [facility] Salicylateon 05-09-2022 Salicylate < 1.5 Low 15.0-30.0 [facility] Comment on above: Result Comment: Petty ents treated with Sulfasalazine may generate a false high result for Salicylate. Performed By: #### A CET, JAMIE #### [facility] [address] [place] [address] Salicylates [Mass/volume] in Serum or PlasmaOrdered By: Henry Hernandez on 05-09-2022 Salicylates [Mass/Vol] mg/dL 15.0-30.0 [facility] Comment on above: Patients treated wit h Sulfasalazine may generate a false high result for Salicylate. Serum or plasma albumin/glob ulin mass ratioOrdered By: Henry Hernandez on 05-09-2022 Albumin/Globulin [Mass ratio] 1.8 {ratio} [facility] Serum or plasma anion gap de terminationOrdered By: Henry Hernandez on 05-09-2022 Anion gap [Moles/Vol] 18.4 mmol/L 6.0-15.0 [facility] Serum or plasma high density lipoprotein (HDL) cholesterol measurementOrdered By: Ji Smith on 05-09-2022 Cholesterol in HDL [Mass/Vol] 182 mg/dL 35-85 [facility] Comment on above: HDL CHOL ATP-III CLA SSIFICATION Cardiovascular RiskHDL > or equal to 60 mg/dL LOWHDL < 40 mg/dL HIGH Serum or plasma total choles terol/high density lipoprotein (HDL) cholesterol mass ratOrdered By: Ji Smith on 05-09-2022 Cholesterol.total/Sarah sterol in HDL [Mass ratio] 1.8 {ratio} <5.0 [facility] Sodium [Moles/volume] in Ser um or PlasmaOrdered By: Henry Hernandez on 05-09-2022 Sodium [Moles/Vol] 141 mmol/L 136-145 [facility] Specific gravity Auto test s trip (U) [Rel density]Ordered By: Henry Hernandez on 05-09-2022 Specific gravity (U) [Rel density] 1.013 1.001-1.030 [facility] Thyroid Stim Hormone w/Rflxo n 05-09-2022 Thyroid Stim Hormone w/Rflx 0.80 u[iU]/mL Normal 0.45-5.33 [facility] Comment on above: Order Comment: FRANKIE SOTO Y Comment USE FROM ER PLEASE Performed By: #### H S TROP, CMP, ETOH, CBC, TSH3 #### [facility] [address] Thyrotropin [Units/volume] i n Serum or PlasmaOrdered By: Ji Smith on 05-09-2022 TSH Qn 0.80 m[IU]/L 0.45-5.33 [facility] Triglyceride [Mass/volume] i n Serum or PlasmaOrdered By: Ji Smith on 05-09-2022 Triglyceride [Mass/Vol] 107 mg/dL 0-149 [facility] Comment on above: TRIG ATP III CLASSIF ICATIONTRIG less than 150 mg/dL NormalTRIG 150-199 mg/dL Borderline highTRIG 200-500 mg/dL High TRIG greater than 500 mg/dL Very highStandard traceable to the Center for Disease Conrtrol and Prevention (CDC) test method. Urea nitrogen [Mass/volume] in Serum or PlasmaOrdered By: Henry Hernandez on 05-09-2022 Urea nitrogen [Mass/Vol] 11 mg/dL 7-25 [facility] Urine bacteria detection by automated methodOrdered By: Henry Hernandez on 05-09-2022 Bacteria Auto Ql (U) None seen None Seen [facility] Urine clarity by refractomet ry automatedOrdered By: Henry Hernandez on 05-09-2022 Clarity Refractometry automated (U) Clear Clear [facility] Urine glucose measurement by automated test strip (mass/volume)Ordered By: Henry Hernandez on 05-09-2022 Glucose Auto test strip (U) [Mass/Vol] Normal mg/dL Normal [facility] Urine hemoglobin detection b y automated test stripOrdered By: Henry Hernandez on 05-09-2022 Hemoglobin Auto test strip Ql (U) 1+ Negative [facility] Urine leukocyte esterase det ection by automated test stripOrdered By: Henry Hernandez on 05-09-2022 Leukocyte esterase Auto test strip Ql (U) 1+ Negative [facility] Urobilinogen Auto test strip (U) [Mass/Vol]Ordered By: Henry Hernandez on 05-09-2022 Urobilinogen (U) [Mass/Vol] Normal mg/dL Normal [facility] Vitamin D 25 Hydroxy Totalon 05-09-2022 Vitamin D 25 Hydroxy Total 36.0 ng/mL Normal 30-100 [facility] Comment on above: Order Comment: FRANKIE SOTO Y Comment USE FROM ER PLEASE Result Comment: JESSICA MIN D STATUS 25(OH)VITAMIN D RANGE (ng/mL) Deficient <20 Insufficient 20 to <30 Sufficient 30 to 100 Reference: Aye Palacios, Geremias YOUNG, et al. Evaluation,treatment, and prevention of vitamin D deficiency; an Endocrine Society clinical practice guideline. JCEM. 2010; 96(7):1911-. PERFORMED BY: [facility] [address] [place] [address] PATHOLOGIST [employer]VANCED MANUFACTURING CONSULTANT KELLIE ALVARADO M.D. Performed By: #### H S TROP, CMP, ETOH, CBC, TSH3 #### [facility] [address] Vitamin D+Metabolites [Mass/ volume] in Serum or PlasmaOrdered By: Ji Smtih on 05-09-2022 Vitamin D+Metabolites [Mass/Vol] 36.0 ng/mL 30-100 [facility] Comment on above: VITAMIN D STATUS 25( [place])VITAMIN D RANGE (ng/mL) Deficient <20 Insufficient 20 to <30Sufficient 30 to 100Reference: Aye Palacios, Geremias YOUNG, et al. Evaluation,treatment, and prevention of vitamin D deficiency; an Endocrine Society clinical practice guideline. JCEM. 2010; 96(7):1911-30. WBC Auto (Bld) [#/Vol]Ordere d By: Henry Hernandez on 05-09-2022 WBC (Bld) [#/Vol] 6.3 10*3/uL 3.8-11.6 [facility] pH Auto test strip (U)Ordere d By: Henry Hernandez on 05-09-2022 pH (U) 5.5 [pH] 5.0-9.0 [facility] Office Visiton 12-19-2021 Follow-up visit [id number] Antoinette Recio 1995 F Date Provider Department Center 12/19/2021 [id number] ANTOINE [facility] None No family history on file Level of Service:59073 [place] OFFICE/OUTPT VISIT,PROCEDURE ONLY Reason for Visit and Comments: Rash [[id number]] - Itchy - painful started yesterday - Normal [facility] Progress Noteon 12-19-2021 Progress Note [facility] [address] [facility] [address] Dept: [phone] Dept Loc: [phone] Subjective Antoinette Recio is a 26 y.o. year old female who presents to the office with the following complaint(s): Chief Complaint Patient presents with Rash Itchy - painful started yesterday - HPI Patient presents urgent care today with complaints of rash to chest, neck, and right arm that started yesterday. Patient states she is also having swelling of her right foot along with decreased sensation that started yesterday. Patient states she is not sure symptoms are related. Patient states she has not used any new detergents, perfumes, lotion, clothing. Review of Systems Constitutional: Negative for activity change. Respiratory: Negative for shortness of breath. Cardiovascular: Negative for chest pain. Musculoskeletal: Positive for arthralgias (right foot). Losing feeling in right foot/toes Skin: Positive for rash. Negative for color change. Allergic/Immunologic: Negative for environmental allergies and food allergies. Neurological: Negative for dizziness, light-headedness and headaches. Allergies Allergen Reactions Azithromycin Nausea Only and Shortness of breath History reviewed. No pertinent past medical history. History reviewed. No pertinent surgical history. No family history on file. Social History Socioeconomic History Marital status: Legally Tobacco Use Smoking status: Never Smokeless tobacco: Never No current outpatient medications on file prior to visit. No current facility-administered medications on file prior to visit. Objective BP 127/89 (BP Location: Left arm, Patient Position: Sitting, BP Cuff Size: Adult) Pulse 77 Temp 36.8 ?C (98.2 ?F) (Temporal) SpO2 99% Physical Exam Vitals and nursing note reviewed. Constitutional: General: She is not in acute distress. Appearance: Normal appearance. She is normal weight. She is not ill-appearing, toxic-appearing or diaphoretic. HENT: Head: Normocephalic. Nose: Nose normal. Mouth/Throat: Mouth: Mucous membranes are moist. Eyes: Pupils: Pupils are equal, round, and reactive to light. Pulmonary: Effort: Pulmonary effort is normal. No respiratory distress. Abdominal: General: Abdomen is flat. Musculoskeletal: Right foot: Decreased capillary refill. Swelling (minimal swelling noted) present. Normal pulse. Comments: Pedal pulse noted to right foot. Decreased sensation noted with palpation to left/right foot Skin: General: Skin is warm and dry. Neurological: General: No focal deficit present. Mental Status: She is alert and oriented to person, place, and time. Mental status is at baseline. Psychiatric: Mood and Affect: Mood normal. Behavior: Behavior normal. Thought Content: Thought content normal. Judgment: Judgment normal. Assessment: 1. Numbness of right foot 2. Rash Antoinette was seen today for rash. Diagnoses and all orders for this visit: Numbness of right foot (Primary) Rash After talking/assessing patient-patient was advised that a further evaluation at the emergency department would be recommended. Having decreased sensation and swelling to the right foot-blood clot should be ruled out. Patient states it is not causing any problems with walking, however it does feel different than normal. Patient states she feels comfortable taking herself to the emergency department for further evaluation. Patient is alert and orient x4, speech is clear and coherent. Patient is upright and steady gait. Medication indications, directions, and side effects were discussed. Patient given educational materials - see patient instructions. Discussed use, benefit, and side effects of prescribed medications. All patient questions answered. Pt voiced understanding and aware of treatment plan. Follow up as directed. (Please note that portions of this note may have been completed with a voice recognition program. Efforts were made to edit the dictations but occasionally words aremis-transcribed.) Lorin Tenorio APRN - SUCKER MACHINE OPERATOR 12/19/[address] [facility] [address] HEAD WO CONon 03-18-2021 CT HEAD WO CON INDICATION: 25 years old; Female. Intoxicated last night. Closed head trauma last night. Headache all day today.] Chronic attack and blurred vision. Patient states she feels like she is in a fog . TECHNIQUE: CT Head (ax/cor/sag reformats). Ionizing radiation dose reduced via iterative reconstruction/FBP blend and body size kV/mA adjustment. Comparison: Head CT dated 06/10/2020. FINDINGS: POSTOPERATIVE CHANGES: None. BRAIN PARENCHYMA: There are some streak artifact from motion. No focal lesions. No mass effect. No midline shift or herniation. No intraparenchymal or extra-axial hemorrhage. Normal whitlock/white differentiation. VENTRICLES/EXTRA-AXIAL SPACES: Normal for age. SINUSES/MASTOIDS: No paranasal sinus disease. Mastoid air cells are clear. MSK: No skull fractures. OTHER: No hyperdense intraluminal thrombus is seen. IMPRESSION: 1. No acute intracranial abnormality. No hemorrhage or mass effect. This study cannot exclude the presence of a concussion type injury. Electronically authenticated by: ATIYA GREWAL Date: 2021-03-17 22:52 Normal [facility] Operative Reporton Operative Report Date of Surgery: 06/14/2020 SURGEON: Jordan Bhakta D.O. CUSTOMER SUPPORT CONSULTANT: TOÑO Chowdary CNOR PREOPERATIVE DIAGNOSIS: Displaced midshaft clavicle fracture, left shoulder POSTOPERATIVE DIAGNOSIS: Displaced midshaft clavicle fracture, left shoulder OPERATION: 1. Open reduction internal fixation, left clavicle 2. Physician use of intraoperative fluoroscopy ANESTHESIA: General with a regional block ANESTHESIOLOGIST: Godfrey Graves Jr., D.O. IMPLANTS USED: AccuMed eight-hole titanium clavicle plate with five 3.5 mm cortical screws and two 3.5 mm locking screws, a 3.0 mm cortical screw outside of the plate serving as a lag screw OPERATIVE INDICATIONS: Antoinette is a 25-year-old female who was intoxicated and fell down stairs this past weekend. She sustained a fracture of the midshaft of her clavicle with significant displacement and bayonet apposition. She also suffered a laceration at the left periorbital area. She was initially seen at an outside facility and transferred to tertiary center. She then followed up with me as an outpatient earlier this week. She agreed to proceed with the above procedure after discussion of risks, benefits, complications, alternatives and expectations. 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 Please see office notes for further details. PROCEDURE: The correct operative site was identified and marked in the Preoperative Holding Area. The patient was administered intravenous antibiotics in accordance with SCIP protocol. She was transported to the Regional Block Room and administered a regional anesthetic nerve block by the anesthesiologist. She was then transported to the Operating Room, placed supine on the operating room table. She was administered general anesthetic. After adequate anesthesia was obtained, she was placed in the beach chair position with all bony prominences well padded and the head secured. The left upper extremity was then prepped and draped in usual sterile fashion. A surgical time-out was performed with all required personnel present. A transverse incision overlying the clavicle was made. Dissection was carried down through the subcutaneous tissues. The fascia overlying the deltotrapezial fascia was then opened. Her anatomy was irregular due to congenital absence of sternocleidomastoid muscle on the left side. Muscle was elevated off of the fracture fragments. Both ends of the fracture were then exposed. The fracture ends were then reduced and held with a point of reduction forceps. A lag screw was then placed from anterior to posterior perpendicular to the fracture site. The near cortex was drilled with a 3.0 mm drill bit and the far cortex was then drilled with a 2.3 mm drill bit. The 3.0 mm screw was then inserted. The point of reduction forceps was removed and reduction was found to be maintained. The eight-hole plate was then placed along the superior surface of the clavicle. Position of the plate was checked with direct visual inspection and palpation. The plate was provisionally secured to the bone both medially and laterally with BB-Tawanda wires. The nearest hole to the fracture line along the far medial fracture fragment was then drilled, measured and filled with a cortical screw. A second cortical screw was then placed in a slotted hole at the lateral fracture fragment. The hole was drilled eccentrically away from the fracture fragment and as the screw was tightened it applied further compression across the fracture site. The BB-Tawanda wires were removed prior to fully tightening the second screw. The most medial hole was drilled, measured and filled with a locking screw. The third hole from the most lateral aspect of the plate was drilled, measured and filled with a locking screw. The remainder of the holes were drilled, measured and filled with cortical screws. Final images were then taken. The wound was irrigated. The deltotrapezial fascia was closed with 0 Vicryl. The subcutaneous tissue was closed with 3-0 Monocryl. The skin was closed with 4-0 Monocryl running subcuticular stitch followed by Dermabond glue. A Mepilex dressing was then placed. The patient was reversed from anesthesia having tolerated the procedure well. She was placed into a regular arm sling. She with transported to the Recovery Room in good condition. COUNTS: Sponge and needle counts were correct SPECIMEN: None BLOOD LOSS: Approximately 100 mL COMPLICATIONS: No complications CASE: Clean Jordan Bhakta D.O. gls Dictated: 06/14/2020 #[id number] Typed: 06/15/2020 #[id number] cc: Jordan Bhakta D.O. [facility] Comment on above: Result Comment: Elec tronically Signed By: Jordan Bhakta DO\.br\Date and Time Signed: 07/16/20 20:57 EDT Coding Summary.on 06-25-2020 Coding Summary. CD:[id number] Gh 0bWw+PGhlYWQ+NT1PCZZlR 11toIGoxI4KL5aGYE6KJVU AOIOJSM7ELU4yoIX4VMemS 2VybiAv ErgnlIBfVW58TAa8IZC4eW mvDKarzR1coZXpN1w4SaRw GG32pC88JFtiXPAyTyV1Ad ZpbjsgbWFy F8doEtSucEQsTaf+PHRhYm xlIHdpZHRoPScxMDAlJyBz mJpfLI9fTe3pEMBlRPVomT xhcHNlOiBj l4cjQRGaSSrzVJ9wlBolH4 LxzVI4GIXhg8z5Xx74gTZ+ LKQhQKO8kQywXUsni267Cs Ske6ihNHY5 jEEkCLhpINI0D82cu9X9DG GcMPGwBES3nJK1fT9raIhy ivriC1OzaYWiIbR8OWH8tH QvnL3fpHwn nivrkD7gQvp+O96DVL7FEZ ARPI1FUha3J9KqNkttnHR+ XM24KGGsQN93eBSrxOJpt5 zsyOt5QhSr GLTbZQG9cSjxHUmjz7RqWO YaQ77ujMWup2L3VHZcuIih uSTzYcIgwDV5lM0zWUypus iqa8zhzrcy Jgisl1abmy19pZ38X58qAP ecEUTbUON1HRFaZHUlnOjq jt7ukJ0mVd7+CYlar9vwt2 kvmTc8UhYb ZPTnoyQkfDvpECC5d9TsRt 37X4PanGqwy3MrVpn5jj02 mMDgl2K3nPH8GEecAWBzpS 9tJKlhJyR8 VOOmLtXdpW73rVRmWDanVb 1dbKpyhCnsUJ0wDFMrbgco BFBjfV3yHOMjzWXsyCleLG 4wNTBpbjtm w210LpTbTDP0UAAtsUPfD4 QsoV0lCkEbBUAwUCDlK8Xc ySSdHMxrQ296PKpzDiA5QL QkrtUeL3Jt FHJjeQmvPoA2q5B7Su2Am1 VvswavJQQ1RAtnJBD0UvW9 RyFbSvG7I2AkIed0RUSpoK erIX0rJ8Oz OXKwrahxhrnvxCA9IOLnAF UxrD24tFEqIBojEg0sy5S9 i628MOTjUTCviN09Oe3rfO ogMTBwdCBU dL9mbwnko2ydqbryZwVrVE FbQZg4QIc0UJGxbYmsBbAq VYQ3IoF0TVF7cRUaeS5bmO zygxzduO3p Oyc+U44wzY5eJUP7NRO2fz gbSHJptxMjPR98UB85R5Ax PjwvdGFibGU+PGRpdiBzdH avFU5jYhCm t2xpi4TuATbfT1GhBRXeWX rnQgh8XQUtCIF7yHB5qH7a PSSaNTbfh1T3bZV7W8Ekra Hbss7sk4uq CKQoOHyrQ52qoFDck5K4PY IpgWR7SPYuxCzwAwCayM02 Oyc+SSRpoDqrv7DlMhozm4 bkq9ujhZs0 PfAtXXPernDywZnxWVN1x4 JiHf32R25gZHhxAITkJNZf JVSqFHBtxIcrcr6vdL6gXx 8+PGNvbCB3 qVT4lM9yAPYtGkL0QTfxN4 62CvPvzZSlIeizo8eoo1db aMj4McFjZAAyglAiyEuwQS J8o9IzIe75 Z63zUHnzKAWaXOTqRXRtOQ PfqJjayc0jvR0dFh3+PC9j o5oxnu21kK64yJS+PHRkIH B6uDtxLDon OKWheA7cOJrmIsP6KWUdNv LonL71wNNbTJupJp1drNec pFszRD3qLNMklhbvl388An Cqa9agYAPl fYZmMFmjQFN5F86mr6X1VI EgRFPzIGA3bOC8kG9jiVva bjogbGVmdDsgdmVydGljYW ueVLuaE268 IHRvcDsnPlBhdGllbnQgTm KrJTn0H2SoUvu5WKYnoLqi IO9kaZYfGBmqXg7ppKzsfJ urHW1eRRRh ynfvo574WuDbg0flNEZrwW AmAQcjJFE0T03xe3N7UOJc GXNlAAQ7eYC7cT5zvUlwta ogbGVmdDsg aiIioVgrGLrcLJpwE466LD RvcDsnPkJpcnRoIERhdGU6 WA73YM24jJAqw5D1sZS2Y9 BhZGRpbmct aqojdHC7MUOdEMBvcO94Ma 2xaEcdMu1aSSYmNRV4EPKs wRFvI7FzeY1hDsLcOHZuKA TuP5MhhHOp GGmzY508ANafCeO3GTEaai OmC5NuZSAkhCfpDkX3t4F8 Hr8QN1F2SU57CZ25gTKjq4 V8kON3W3Ln ATTfigzcpfbckDO3KTStCY GiiU12Gy6kpHxiWg2wUQIh SCT9KWJvfTWsG5MsaC7gBj AjMDAwMDAw T3CfgDQgJXjyL697QJgvOd D0ENGxhqIqE1YnIQYiiUqu YqF6e8I0Wh3TUAy5UA12FX 07vRRcc2M2 fJA2Y6LoPINrwfiiopxiqD Y4ZTVkNXOwhT58Ct7exJvo Jm4iIQCsICD0EUZoeZFdL3 UsjU2fZxHb TRXjVNVmG0YxmJGjYLjgE9 28HCyrGhU6GKDgfdQfQ9Zp ESXnkPdyKwV2f3K2Gc7MCQ IvAQ99VJX0 bED3FC51YH99S0EfIffglL FibGU+PHRhYmxlIHdpZHRo SLddEDUzGtSxhQgqUP3qKf 9yZGVyLWNv jQpczPRjKkVew3sbRRCuIO riQY8ykCipV2OlhLB0GFNx r6e0Nz59D69zL9LauQT+PG TexOM5ySG6 dE4sDgHpUoO8NArvY024Qd WjoAXeIyuti2efd3badDt6 HpA8LKRxtgHkoXhxCZK2d4 ErIb24A40f IHdpZHRoPSIxNSUiIHZhbG mbvu7qcU0uEf8+PGNvbCB3 qQD7kA1gEtRaDmK6PXbiU7 49InRvcCIv Cupdl1bgz8nsvYl5KzQlZX FifeYjkNdtVEQ3j1BpZb89 M5JilYagz3DpAlf9ot62wJ Tjh9U8wCP6 I8FvGUQakuvwrWWdkRyrOP 6iAHRpkoktWCPiuZ7dEJPb Z5z0GdJrRdQ7FKytV1Blsz U1TJSzeKXy TCbfOSM6P40vs3L1LBJeSJ OcNZD6nJR4aB8aeLxncaya bGVmdDsgdmVydGljYWwtYW wjX158TWUv mYfoRLGmhL6aAHZtyXEcfZ phTA9zIFThihwzSyDXNpLT VPreQR8JWoFRYMArSdiabM Q+PHRkIHN0 zRgbBKnyWFFmcT3nOPBrU7 t5OlTsSqM3ZZauI2MoWVEo ywdyBi67aB5tPiOfJzQ5DS aiK2SunbR7 ICNxzDYbUZovRAZ8X93cn0 Q6YOXuFFVpFFP8hHI8bA4p bGlnbjogbGVmdDsgdmVydG ljYWwtYWxp I597PSCsmEebDeRmUeOhDx A2WQW1M0NvNat2KDZqcLva BW0kdMCbSXruPi2zvBfzaC yjPM3rPMUk rfwhYPLozX5yBXVpsTUhjN zcSH0yZDAtulezk933DzAl HZF7LZTqcGPqB5AcfI1vYl AjMDAwMDAw V8RugQMbUMvyG483IRjcLg O2OZKhksLiA7NtFLVlcXgo IyY7x0S4Ta7nNPWXIXFqlw wvdGQ+PHRk MAZ9eTavQPfiNAGviA2aII ExB9w4SbYgQjR5CZluZ2Oa RMKdtzagNh40bY0bImSkNe F2DZreE8Yj tjI3MCXxjGOkBQoeGVL5C5 0kg7A7NJEtRFKpXGB5mZX5 eM3btZaruzxgxRDkaYgqoi VydGljYWwt VQkmH504OURmdUsdUpMqgA FsZTwvdGQ+CORaMMK5kBfh TIzsLDFblL3lGRKlY7p1Vq KfPbL4SUzs X5IoIZQijfgyIi05uT1cLx CqHcJ6MUneA7WvwpP0KYZs bHZvFOwpGSE6X97no8Z4KV MwMDAwMDA7 uPC3hN4yrJsnyncfsTUfrT fugfDskTjzJZggZZfgP641 IHRvcDsnPkFtYnVsYXRvcn gsK5VeRFDA QYgdV7XgJ9FjhBhljQB+PC 62gs27X4NhLwzsPff7KSDu CGP6yNF4jA3nFQWbZDlbr2 J1xEO7P1Nr eaTdib9gr6dwWSSsDMpbJ9 0wqXSat9Y6JAUjxKT4GGWc oLlkJsOxaT90Rak+PGNvbG ogq2VxJxex x3ako7ullQa8JxKlUJQjcb KlxVmtXJQ7k3QoSr79M05x IHdpZHRoPSIzMCUiIHZhbG kakm9frN7g Ii8+IIOxeTR5aBR2iJ1lVa JaTmB8UJpcJ425MfDnqVZf Uujzx3ahh4lpoBs1HsWmCX IgdmFsaWdu DXN6r5OiDe00J8SvrNbjq2 KnYhx8xv15tQErj3Y1oNR5 L5JgZNZvnzuodNCarQjfWG 4yMDBpbjtw QBVngM6gBFYxY6m2NbRjTl F9KTbhJ5YehrP6VWSijWOf NYMgwMACbJ7whnfev6wkmc ogIzAwMDAw ODi2DDj4LZXtwMlbGkXtRL W5GgW2RTZ8eWSttX7pyDdq qbzyhR0iUaq+FNv9c0nlfX XfCB4qaIE0 PM09YQ00bWEri5H4pAN4Y1 FgAPHfpcpmywwhuSI1PJIw NLWneY86Lq3ulAoiAv9xQB KmPBY8BFMp kMQkO6XecL8gYxOmZVFiBR RvP8XllVMwCObvL801EHkf SxJ0VMThhgQfD4QnNSNktZ mgIvW3s6E9 Sp4DCP22NB39BJ32sPSju3 O6yTB0K6JpLIAxlmapmpty pZQ8LJBlLMDtaX07Zp5bqT qxDs4bWLGv QYI8BEAylVGcY8RgxJ8nSw GmMCJtNQGfO4FvwXIxQVnk F077MOdyWfI8MCArfnWjB7 FsLWFsaWdu FxH1p0J8Pa9DBm61DN27PI 56cPNzx7T1cAG9R2UwZDDo pknflaserPO9DIUgVLUbgD 34Un8ppFpd Gg7bKTFkYGY1AQHvlERvL6 EbaZ4tRqVpBQSnAKBdC5Gq rHPgOMmvR476EZafOqL3CN WudyXiR3Qs SQKbhRbvCaY1l5O4Yn9SLW mgyfj7T2KeFyoghYV+PC90 OVQgYS57bCDbqAThj1lzbZ o6YeVtPAJq IHN0 (more content not included)... Normal [facility] Coding Summary.on 06-24-2020 Coding Summary. [id number] Gh 0bWw+PGhlYWQ+LF8KNCVdD 95brXAdiG8HI8eJWR7XUOM WYFUIIU3VHT0gcLE7VFhpF 2VybiAv VineaSCqAD20DJe0FJC6tR cjLNffrR2kzXYyM2m0UkYb BO15gM27SYtsAYAxTbV2Xu ZpbjsgbWFy D8uiBoBtwBGsXvj+PHRhYm xlIHdpZHRoPScxMDAlJyBz yTqtOO5rLu2cBGBqQWJayP xhcHNlOiBj i2qzQMVbDMqpWX9unHnfC5 FzbIV8EELpp4h6Zi25yRO+ CEUjTHQ5tMyxWFwvx584Gw Wmy4hcJSB6 mNNaZIafRJW3U39kk0T6KO PwUPUfSCV0yWK7cC9tyDch igfeC5GigJNzUoW0YAM4aD GvqH3flImf cizqsJ5mDya+P04WQM5GXJ DDFM6XJyn4Q2VrXwnldRJ+ UW81VZVeUD60hTCizYYsd4 ahhCb9NrNd CEBvNSN8dEdrAKgca7RhPS EaI74ipTLqe0B5LSMrwGjt dECqYqWumWM5bY1jCXbcmt ahw1sozrec Elstl4sliz24tE97W34wTJ spQXPkCEQ7BDIuNMErnZda ua7xlY0aFd5+SKjaa0fsu1 varIi6ExPe GSUgzcNsaQyzPJQ8f0RjPm 34W0MaaYhsq8WwImp1my16 nUAzj9P3gZS9BIhpJAVctL 4hJEmnBfS0 JJXzCcPktE38vDVeZAddPq 4qsQjnkNljKB4vCSSivncx QSEkoL2kMBNudYVruMalQR 4wNTBpbjtm b901YvNdZEQ5TXOjsWMbT9 DpyX3hBpWyXDYjNORzE5Hi gBYrPYavZ447NJruPxY0BP UitkDrK1Sk WREulJpeInH5n2B8Vx3Uc4 McqkxyHSG9VVeiSYF4BkB7 QiFlOoL5R7XzYhz0JDQesK idHR3pN3Qc WRCckgbmhgkikLR9RVQzGP FxjK21gHCvLLiyVe7bh8B7 w555KEBrBHIctT37Ck3zeM ogMTBwdCBU qH8oiodpv6cbnygfNzNuPP PcTVa5ZQj2XCNkeQnbZbJd ASH5QtS9XJK7zKEvdR5jbH ncuyrmqV6j Oyc+J35ryA6oVGO3TOB2ca faHHFrnbUuLE65NG00M4Bu PjwvdGFibGU+PGRpdiBzdH ygDZ8cDdEm h7mgw0GsHGopY5WeNYYaVI fsUhi8KBGlJCQ3lZI8bT8v EHOsVCkeq9C7cCS2E7Puup Jacu9hi8zz MNBlYTllV17alRAqf5B9ZA IinVB3RYKrfKcqZmKtsV57 Oyc+JVFdzGtxx0ZqWbazp8 odn6kimBh1 SmDoVZDdfcAyaZhkODS5c5 GsOa22W30gOOwxZAHtOIJt OJUfYDVouVqzuk0xaR1vHk 8+PGNvbCB3 yDC4vJ2tSOOdEqX4FKbbB8 28CkHtcPHmWygpj3mmt2gp pDf7VlBiKCVcwrDfsSpgQE G5l4WwEo81 Z98rCIvfXLPgXRQtFDNnCG XxmJcirv1rjH1yLw0+PC9j v1usxm93xA86hDW+PHRkIH D5sYjwUQjj YPXmaM9aVBwoQgX5ISQxPs JtuZ35rBBrPHgjYa8rrEni tFxnLN4fVOXdmlglu892Qb Hya5jdWMMa mSPoGCrpQMH6O53zh5K9IN EqURHgWMO6oSC3nZ6giTfq bjogbGVmdDsgdmVydGljYW wxCWyyS974 IHRvcDsnPlBhdGllbnQgTm EpPDv0T2DaHca5VRFciAeo OR0cvSYyTQjkOk2rnPkznW ucES7tLONq xkdqe698KmQuo4unEDBvxE QlHJtcXGJ4L22tw5A8NUIi USQlUOG5tVN6iP2dtHfcyy ogbGVmdDsg zbHniUcoQIbsPZgrJ098EV RvcDsnPkJpcnRoIERhdGU6 TR25GY67hDGav6Z3gGG3S1 BhZGRpbmct iqvxgEW4GOVwAYMlzZ90Fu 6gdIhaFv2uBLMnUBJ7ZDUg gDKmJ7NjjF0jNbHgTVUtOF WcL8UwgOMq AOuzN236VFowIbP6IFPybi GfM2RzIQZafMvwSeZ5x3S8 Uy3QA3H0QY35WF11jFTmj7 V5bYE6Y6Rv RKChxkdnqcvclKD7DBZuFJ UggD05Ie7rtRgcTm3aELRz HCR1MYOmxWGuH1QwsN0aQd AjMDAwMDAw G8RdlNEqIFbaZ555YAsdZz S2CGRvqgQvU7HlSVSkjWfn PnY3w0D0By3IKOr3ZP06VB 72oPWbk8V1 qBN0E0KdLNRgxnlcfyzzjC W6PLYsBDPdlZ34Ec3otVnq Jl9iWIVaVJX7QNNacTFsF1 AzcB8yRzGk TXDyCRSlK7IneEKiQCgfS7 04ELnzXuK1NDVfkqSkG9Zp ACQspGvoVaU7u0E6Vs0RVT RzGT61MAM5 aLS2PL33AG65A7RwOxcdnL FibGU+PHRhYmxlIHdpZHRo ZKikKJMgNsVipRpsMP8iJa 9yZGVyLWNv lYpqhUDbWzMpc1zqZOLtOX flXU4gyXvjJ4JgvWL1VFZm f8o3Vp79J84oY0YbpMI+PG XviZF6pQE5 xH8cAyIfPgU8TTbtK113Wk MyzRRdXstln5oyz4dvtEf5 NnH3BHTepuNdnRwfRLW1s7 VvCi38Q90m IHdpZHRoPSIxNSUiIHZhbG vnmq4vkT3cUy0+PGNvbCB3 sKA4rP4xFjOoPjH1TBrlT7 49InRvcCIv Yutzp6zkw2eadUv8DqFxWP BsphXhbFftPKD5o0GtPy56 W5KzsAkra3QtOkm6pe69dH Wyb5P9lPB5 U9OvCYEdxpvyvAAlvKdtUW 4lKTHefyblNKGvfY6fNLUn R1q0PlHvSvV7WCmeO2Lefs W4BBKqdUVo SBtoXII3J81sb4C5DTTeTJ JwVDO7jHM6dL6wjCfmosai bGVmdDsgdmVydGljYWwtYW juG878FBXh rOryKKXbqM3rJOJnsKBeqH hlMP0gLQHardamMtLOTkLF YBpjJO7HNgMNRRUoHsqzcA Q+PHRkIHN0 vLjfGSfdQSDdtA5uMQKjE3 g0HbYaFnU6ZTizP6YiFVNi jxfvHu46wB3gDsJvRcD0ZN qoB9AfeqM6 UEGlgKFeFPyxTHX7N28yu0 I7REBzFXFfNRU8wBT9fV8b bGlnbjogbGVmdDsgdmVydG ljYWwtYWxp L415NWPyeQnxQsHkPkBsLs V7DMX2V3NyXdj8JXXbaVjh DK4twSFsPSyyXy4rnHrtqM tuAE4wYFUo ajovMYEdfA6wRXHnwJSvoQ vmCB9gMDJvaehcc666QwYj JZP5LRMtvASlD2SvmR3iQc AjMDAwMDAw K8KbmNBtRLdoT145VLtrXy N5LRGkttYtJ6DvZCIblVeo YcQ9u2O9Oy2uHSVSRBIghg wvdGQ+PHRk YIX3zRdgPCvrMBYtxN2dUL JxH7l7TsQhGbU7FKoyO8Ok WQUydbjsQr39jY0xQyNpRt L4EMymG7Dl zrV7TJRhiUMpWWkvBAF6F3 3gq4V3MBEwLPSfCXL2tQF3 aH6yjQpmtuzleXGerParvl VydGljYWwt BZuwQ954UJGtnGovIaRzoM FsZTwvdGQ+QVLfSBH8tOkm DBtvKRFtxH2nKBVfX9a1Vl KmAkT0XXhl P0IyVIAwjcfgLk28hZ5qTg EoPnM3MNqwL3KpcdE6DQZe jHGmJIxtIRH1M59uo2J5BV MwMDAwMDA7 mJL5rP8pkEjbfwbelPNnoG xdjeYjxNhfOIkdXPczA467 XGTjyNmhZx48aCTbhBybxg N1V9NmIyta dHI+MI68WUOpPB05xSYpoR Dqt5uftCt4GlXyIJFjVBI1 iVyhHVrgl6YbSCTeN29vhO Gtc2T7MJCc oMsmpDYyGfYliDA3zM5fOZ tdjvusj4zkarjxSlarq3sh kg60yW01S81cLKmpKKDmLD IzMCUiIHZh iMklnh1awP3jRk2+PGNvbC F5wTO9rD8rUtVhQmH8PKcx N344SaJpcWItMurmn9bvv9 yvhFy6FvNp TNZbeyRvpMvfVSI0i9LfPi 55U94tXQhnEAUfMCYrMQCf IKMluZzyte5exO8wXq9+PC 4lv0gkse22 nC86nTT+TLDtYBD5nPztCC dpBZSlvE3pYGneXsS7HYUv DmXdiG71nABdZFxpVz9zyD ipcWarJN3l AANkvafyr392BkNvr7clED GnvMBxBDzbJAR2U90vm9T9 EQOkOKIvMEX7fXQ1hG8ppV lnbjogbGVm dDsgdmVydGljYWwtYWxpZ2 65COSssMtjOwTteOXrZ5hv qjYJMA7jLgyatDX+PHRkIH I8pKbiDLgy UTYrlE5iIVAqD2p9HbOoOq W1UPxnW5HpzvI2THRsoGLc PLZudTAPmH5axxeol1ekcd ogIzAwMDAw RQt7YTm8AOBoaVcxLfXlYL D3VtB9VOG0uHZbuJ6ppAvw lfacwF9oQup+RklOOjwvdG Q+PHRkIHN0 zHpiUWzqXRHaqP9fEQYoV5 s4LuFlQoB8YFttY0AvwhS6 FYZenBClKKOgoGBIaN4vdn kpw8uefejf XlEvABIpBDv2MSr1RPRmqB emDlXgPBV7LcU5EMM4fREy eD2klZhtsjohbJ4wApx+TV JOOjwvdGQ+ OOPlSEX4aBiqCJpyJTGovZ 2pCSRuI4j7MhOjTyV3YCzh A5NlthC1MNVhqLXwHGZhcL FErQ8kdznq q0npgcdaObHiEUUvCMn3JX z5DPQusEsuBnDfRYJ4YdL9 CKB9rAGliU2szBpznllubZ 9wOyc+UGF5 UML4II98PS85Y2OoAlxrfM FibGU+PHRhYmxlIHdpZHRo IMaoUMKwViVzqZwiIC8aKk 9yZGVyLWNv bGxh (more content not included)... Normal [facility] IntraOperative Documentson 0 06-22-2020 IntraOperative Documents [id number] Normal [facility] Main OR Intraoperative Recor don 06-20-2020 Main OR Intraoperative Record IntraOp Document Type FT Summary Primary Physician: Jordan Bhakta DO Finalized Date/Time: 06/20/20 12:56:01 Pt. Name: ANTOINETTE RECIO /Sex: 1995 Female Med Rec #: [id number] Physician: Jordan Bhakta DO Financial #: [id number] Pt. Type: A Room/Bed: [facility] Admit/Disch: 06/14/20 15:28:52 - 06/14/20 21:05:00 Institution: Case Times FT Entry 1 Patient Times In Room 06/14/20 17:11:00 Out Room 06/14/20 19:10:00 Procedure Times Start 06/14/20 17:46:00 Stop 06/14/20 19:07:00 Anesthesia Times Start 06/14/20 17:11:00 Stop 06/14/20 19:10:00 Block Timeout w/ 06/14/20 16:55:00 Anesthesia Last Modified By: Alycia Cash RN 06/14/20 19:10:13 General Comments: 1653 PATIENT TRANSPORTED VIA CART ALL RAILS UP TO BLOCK ROOM BY EVERETTE BLAIR. 1655 BLOCK TIMEOUT PERFORMED WITH DR GRAVES AND EVERETTE BLAIR PRESENT. HR 82 SPO2 100% ON ROOM AIR. 1700 START OF BLOCK. 1708 END OF BLOCK. PATIENT TOLERATED WELL. 1709 PATIENT TRANSPORTED VIA CART ALL RAILS UP TO OR SUITE BY EVERETTE BLAIR. EVERETTE BLAIR 06/20/20 chart opened for charge review per Reid Friend RN. [place] Case Attendance FT Entry 1 Entry 2 Entry 3 Case Attendee Godfrey Graves JR, DO, DO, Jason A Stocker RN, BARBARAORNona Role Performed Anesthesiologist of Surgeon - Primary INFORMATION SYSTEMS SUPERVISOR Record Time In 06/14/20 17:11:00 06/14/20 17:11:00 06/14/20 17:11:00 Time Out 06/14/20 19:10:00 06/14/20 19:10:00 06/14/20 19:10:00 Procedure CLAVICULAR FRACTURE CLAVICULAR FRACTURE CLAVICULAR FRACTURE ORIF(Left) ORIF(Left) ORIF(Left) Comments GOLD HYATT - MED STUDENT - SCRUBBED IN Last Modified By: Shreya RN, Alycia Cash RN, Alycia Yin RN 06/14/20 19:14:30 06/14/20 19:14:30 06/14/20 19:14:30 Entry 4 Entry 5 Entry 6 Case Attendee Julian SARGENT, Jhonny Cash RN, Isabella Johnson Role Performed Scrub - Primary Breaker Engineer - Primary Appetizer Packer Time In 06/14/20 17:11:00 06/14/20 17:11:00 06/14/20 17:11:00 Time Out 06/14/20 19:10:00 06/14/20 19:10:00 06/14/20 19:10:00 Procedure CLAVICULAR FRACTURE CLAVICULAR FRACTURE CLAVICULAR FRACTURE ORIF(Left) ORIF(Left) ORIF(Left) Comments Last Modified By: Shreya RN, Alycia Cash RN, Alycia Yin RN 06/14/20 19:14:30 06/14/20 19:14:30 06/14/20 19:14:30 General Comments: COLUMBA BLAIR RN Perioperative Protocols FT Pre-Care Text: Implements protective measures prior to operative or invasive procedure, confirms identity before the operative or invasive procedure, verifies operative procedure, surgical site, and laterality Entry 1 Procedure(s) CLAVICULAR FRACTURE Patient Identity Birthday, ID Band ORIF(Left) Verified (select at Check, Patient least 2): Participation Consents / H and P Anesthesia Consent, Operative Site Present Verified HandP, Surgery/Procedure Marking Verified Consent Surgical Site Yes Laterality Verified Yes Verified Procedure Verified Yes Correct Patient Yes Position Verified Availability Equipment, Implant, Prep Dry Yes Verified (If Medication, X-ray Applicable) PreOp Antibiotic Yes Time Out Godfrey Graves JR, DO, Brown DO, Jason A, Stocker RN, CNOR, Julian Castellano CST, Shreya Rush RN, Alycia Shine Time Out Complete 06/14/20 17:45:00 Outcomes Met? Yes Last Modified By: Alycia Cash RN 06/14/20 17:46:29 Post-Care Text: The patient is free from signs and symptoms of injury caused by extraneous objects Allergy Information FT Pre-Care Text: Verifies allergies Entry 1 Allergies Reviewed? Yes Allergies Reviewed Self/Patient With Outcomes Met? Yes Last Modified By: Alycia Cash RN 06/14/20 16:41:32 Post-Care Text: The patient received appropriate medication(s) safely administered during the perioperative period Surgical Procedures FT Entry 1 Procedure Description Procedure CLAVICULAR FRACTURE ORIF Modifiers Left Surgeon Description LEFT CLAVICLULAR OPEN REDUCTION INTERNAL FIXATION Primary Procedure Yes Primary Surgeon Jordan Bhakta DO Start 06/14/20 17:46:00 Stop 06/14/20 19:07:00 Anesthesia Type General Surgical Service Orthopedics Wound Class 1 - Clean Last Modified By: Alycia Cash RN 06/14/20 19:07:25 General Case Data FT Pre-Care Text: Classifies surgical wound, implements aseptic technique, initiates traffic control Entry 1 Case Information OR OR 7 FT Case Level Level 4 Wound Class 1 - Clean Specialty Orthopedics ASA Class 1 Preop Diagnosis LEFT CLAVICLE FRACTURE Postop Same As Preop Yes Postop Diagnosis LEFT CLAVICLE FRACTURE Outcomes Met? Yes Last Modified By: Alycia Cash RN 06/14/20 18:05:09 Post-Care Text: The patient is free from signs and symptoms of infection Skin Assessment (Pre Procedure) FT Pre-Care Text: Implements protective measures to prevent skin/ tissue injury due to thermal or mechanical sources Evaluates for signs and sympto (more content not included)... Normal [facility] Operative Reporton Operative Report Date of Surgery: 06/14/2020 SURGEON: Godfrey Graves Jr., D.O. PREOPERATIVE DIAGNOSIS: Postoperative pain control requested by patient and surgeon POSTOPERATIVE DIAGNOSIS: Postoperative pain control requested by patient and surgeon OPERATION: Left interscalene block, utilizing ultrasound guidance and nerve stimulator ANESTHESIA: Local with monitored anesthesia care PROCEDURE: The patient was interviewed and examined. The anesthesia options were discussed including interscalene approach to the brachial plexus block for postoperative analgesia. The discussion included the procedure, risks, benefits, and alternatives to the procedure. The patients questions were all answered and the patient elected to proceed with the brachial plexus nerve block for postoperative pain relief. The patient was placed on the monitors, electrocardiogram, non-invasive blood pressure machine and pulse oximetry. I.V. sedation was then administered with a total of midazolam 2 mg. The neck was prepped with ChloraPrep and sterilely draped. The anatomy was identified by ultrasound and then under ultrasound guidance and concomitant use of a nerve stimulator, the brachial plexus was identified with a 25 gauge 1 3/8 Stimuplex needle. Loss of twitch was observed at 0.5 milliamps. After attempted aspiration for blood, air and cerebrospinal fluid, a solution of an equal mixture of Naropin 0.5 and Xylocaine 2% containing 3 mg of Decadron, total volume of 18 mL was slowly injected with frequent aspirations without signs or symptoms of either intravascular or intrathecal injection. The patient tolerated the procedure well. There were signs and symptoms of a block within minutes after completion of the procedure. The patient then proceeded to undergo general anesthesia for the proposed procedure. Godfrey Graves Jr., D.O. gls Dictated: 06/14/2020 #[id number] Typed: 06/15/2020 #[id number] cc: Godfrey Graves Jr., D.O. [facility] Comment on above: Result Comment: Elec tronically Signed By: Godfrey Graves JR, DO\.br\Date and Time Signed: 06/18/20 09:48 EDT Postoperative Documentson Postoperative Documents [id number]#1. 00CD:127 [facility] Progress Note-Physicianon Progress Note-Physician Patient: ANTOINETTE RECIO Age: 25 years Sex: Female : 1995 Associated Diagnoses: None Author: Godfrey Graves JR, DO Postoperative Information Post Operative Note: Post Anesthesia Care Unit. Anesthetic utilized: General, Monitored anesthesia care. Health Status Allergies: Allergic Reactions (Selected) Severity Not Documented Azithromycin- Tachycardia. Current medications: (Selected) Prescriptions Prescribed Colace 100 mg Cap: 100 mg = 1 cap(s), Oral, BID, PRN for constipation, # 20 cap(s), Refills(s) 0, Pharmacy: [facility], 165.1, cm, 06/14/20 15:51:00 EDT, Height/Length Dosing, 74.6, kg, 06/14/20 15:51:00 EDT, Weight Dosing Percocet 325 mg-5 mg Tab: See Instructions, as needed for pain, 40 tab(s), Refill(s) 0, 1-2 tab(s) Oral q4hr, [facility], 165.1, cm, 06/14/20 15:51:00 EDT, Height/Length Dosing, 74.6, kg, 06/14/20 15:51:00 EDT, Weight Dosing naproxen 500 mg Tab: 500 mg = 1 tab(s), Oral, BID, Take one tab by mouth two times a day, # 14 tab(s), Refills(s) 0 naproxen 500 mg Tab: 500 mg = 1 tab(s), Oral, BID, with food, # 60 tab(s), Refills(s) 0, Pharmacy: [facility], 165.1, cm, 06/14/20 15:51:00 EDT, Height/Length Dosing, 74.6, kg, 06/14/20 15:51:00 EDT, Weight Dosing Problem list: All Problems Clavicle fracture / SNOMED CT 70339531 / Confirmed left Physical Examination Intake and Output Denies significant n/v and is tolerating p.o. No qualifying data available Respiratory: Adequate air exchange with orthodox of preoperative function.. Cardiovascular: Cardiovascular function is stable and has returned to preoperative levels.. Neurologic: Pt has returned to preoperative baseline.. Review / Management Condition: Stable. Assessment Anesthetic outcome No anesthetic complications noted. Plan Transfer/ Discharge: Patient can be discharged from PACU when criteria met. Condition good. Normal [facility] Comment on above: Result Comment: Elec tronically Signed By: Godfrey Graves JR, DO\.br\Date and Time Signed: 06/18/20 16:23 EDT Progress Note-Physician Patient: ANTOINETTE RECIO Age: 25 years Sex: Female : 1995 Associated Diagnoses: None Author: Godfrey Graves JR, DO Postoperative Information Post Operative Note: Post Anesthesia Care Unit. Anesthetic utilized: General, Monitored anesthesia care. Health Status Allergies: Allergic Reactions (Selected) Severity Not Documented Azithromycin- Tachycardia. Current medications: (Selected) Inpatient Medications Ordered Lactated Ringers IV Deb 1000 mL 1,000 mL: 1,000 mL, IV, 150 mL/hr, Routine, Start date 06/14/20 15:30:00 EDT, 6.7 hour(s), Total volume (mL): 1,000 cefazolin additive + Premix Dextrose 5% Diluent 50 mL: 2 gram = 50 mL, Soln-IV, IV Piggyback, PREOP, Routine, Start date 06/14/20 15:30:00 EDT, 100 mL/hr, Infuse over 30 minute(s) famotidine 10 mg/mL IV Deb: 20 mg = 2 mL, Soln-IV, IV, Once, Stop date 06/14/20 16:00:00 EDT, Routine, Start date 06/14/20 16:00:00 EDT Prescriptions Prescribed Percocet 5 mg-325 mg oral tablet: 1 tab(s), Oral, q6hr for 3 day(s), 12 tab(s), Refill(s) 0 naproxen 500 mg Tab: 500 mg = 1 tab(s), Oral, BID, Take one tab by mouth two times a day, # 14 tab(s), Refills(s) 0 Problem list: No problem items selected or recorded. Physical Examination Intake and Output Denies significant n/v and is tolerating p.o. No qualifying data available Respiratory: Adequate air exchange with orthodox of preoperative function.. Cardiovascular: Cardiovascular function is stable and has returned to preoperative levels.. Neurologic: Pt has returned to preoperative baseline.. Review / Management Condition: Stable. Assessment Anesthetic outcome No anesthetic complications noted. Plan Transfer/ Discharge: Patient can be discharged from PACU when criteria met. Condition good. Normal [facility] Comment on above: Result Comment: Elec tronically Signed By: Godfrey Graves JR, DO XR Clavicle Lefton XR Clavicle Left Exam Date/Time: 06/14/2020 20:16 EDT Reason for Exam: Fracture Report IMPRESSION: STATUS POST ORIF FRACTURE LEFT CLAVICLE. CLINICAL HISTORY: Fracture. COMMENT: 2 limited uqynb-go-tnax C-arm images were obtained in the OR. The previously noted displaced fracture of the shaft of the left clavicle has been reduced and transfixed in good position and alignment by a metallic surgical side plate with multiple screws. Radiation dose is 3.72 mGy. FINAL REPORT Dictated: 06/16/2020 2:32 pm Chivo Mays M.D. Signed (Electronic Signature): 06/16/2020 2:32 pm Signed by: Chivo Mays M.D. Transcribed by: MICHAEL Technologist: JAYNE Technical Comments Radiation Dose: Ka,r in mGy = 3.7 Normal [facility] Consent for Anesthesiaon Consent for Anesthesia [id number]#1. 00CD:127 [facility] Discharge Instructionson Discharge Instructions [id number]#1. 00CD:127 Normal [facility] IntraOperative Documentson 0 06-15-2020 IntraOperative Documents [id number]#1. 00CD:127 [facility] IntraOperative Documents [id number]#1. 00CD:127 Normal [facility] Preoperative Documentson Preoperative Documents [id number]#1. 00CD:127 Normal [facility] COVID-19 (MC)on 06-14-2020 SARS-CoV-2 (COVID-19) RNA AIDEE+probe Ql (Unsp spec) Not detected Normal Not Detected [facility] Comment on above: Result Comment: This test result should be correlated with clinical presentations and medical history by a healthcare provider to determine its clinical significance. This assay was performed by a reverse transcriptase real-time polymerase chain reaction (rt PCR) method on the [employer] system. This test has been authorized only for the detection of nucleic acid from SARS-CoV-2, not for any other viruses or pathogens. This test has not been FDA cleared or approved. This test has been authorized by FDA under an Emergency Use Authorization (EUA). This test is only authorized for the duration of time the declaration on that circumstances exist justifying the authorization emergency use of in vitro diagnostic tests for detection and/or diagnosis of COVID-19 infection under section 564 (b) (1) of the Act, 21 U.S.C. 360 bbb-3 (b) (1), unless authorization is terminated or revoked sooner. Performed By: #### 2 [id number] ####[address] [place] [address] SARS-CoV-2 (COVID-19) RNA AIDEE+probe Ql (Unsp spec) Pass Normal Pass [facility] Comment on above: Performed By: #### 2 [id number] ####[address] [place] [address] Specimen source Nom (Unsp spec) Nasal Normal [facility] Comment on above: Performed By: #### 2 [id number] ####[address] [place] [address] Coding Summary.on 06-14-2020 Coding Summary. CD:[id number] Gh 0bWw+PGhlYWQ+MJ1PEUTlH 64xdJUojX8CJ3xTGS3AWEJ AZBAGST7VAU1ryNM8DWgfY 2VybiAv NjijfQAvGI22FDr2JWC2bV prVDphiC5etNWcY9k3FzEl NW30oI57KUrwRLZrNjB6Mw ZpbjsgbWFy N0zuWdRutJCjQpt+PHRhYm xlIHdpZHRoPScxMDAlJyBz oZrpZB0tIk2mSLWfZPTtqL xhcHNlOiBj i0dhDXVaYYymRY3yfAxvY4 PckGR6TWRkg4k3Me04zWT+ JWOfCDA3aTbcQXphq336Rf Pwn0jvMCR7 yOGuKUvfEAQ5M53zj3L8HX XbOVAyIIC8hEV8iO1uxDyd yaoaU4HfaOAdRcN8PMQ1nR BwgP3idJti hoetjF7aYyq+M59UMF7RQX CGHB8UVzi7W5DvZjrplJI+ MK33ZRPvNO48qMIpdYPxs5 kkyTa4DsIe EPZzYBI3oVarMVjur7KsYU CiF38tmYRgv7Q1DGJseWfl rNAaVhRsvAG7uV1yFWdfxc adv9ndjhol Wbryq0cgqs90yY77T03pKT gcLTVhWPO5NBUdDBRisVdh nw3crW9lOz2+PYznf0mxp5 dchSr5FfCj SLMiruJzoPjxURY2i3YgXz 62R7BoiSgff6JrKlp1em68 dPQpa1S1mVE6KFsgJLXebI 6rEEstQcR2 QGXhAsIdjT51nYYxPGcqVx 9giCagrIpyNE1uQJJkhhko DCGqsL3aQVAhwDBweSjjSL 4wNTBpbjtm v975VqQrYZJ9IHZadIWuO4 DnuZ5dXrCiMVZgYRAcL0Ll yPJzFQomP057JBbmOuB8CW EkgwUjP6At JRLhjMniWhF2p3W3Xl6Zw9 FcdxkpQYY2PWxxGKX3VeM9 SeCzEaG4O9GrKgo9NPFdfK tkLT7cF4Zq ZGQdscwteoipyWD4BHTbYY OscU46oYXnPPpkUg5rs3E5 j152OXEsUHAewC58Kd6uzT ogMTBwdCBU rR7tvlhtt5qfhlfoWmOtNA NeIGg4KAv8RAHxiPmaFtDp UIS4UxK2OXV4mVQweE3hjV xszseztJ2t Oyc+C95kwA7vAME9FZY9ff jdRFWpnmYdRR21UL08J0Yx PjwvdGFibGU+PGRpdiBzdH kwFW8oXhSa w3yfa9QzGIspY2NwOKCiOU chYhq1OQNuVYK1gYT3wD2t EZCrPOxow2K4iGO3M3Colw Owfh4ow1zv BUPjIHbhG33iqDKmf6J6NZ WecBW4ACBtpYxnHpPfdD06 Oyc+GFCslOwvg5MhOmyiq0 hmk5fjuZl9 PxZxZCAayqXjxZewUQM2l2 ByRg22I58vGNrpPDPbKDZo JJKcFZDujUbvqy6pjE1wWp 8+PGNvbCB3 hEY4cP7kRESuXpQ0VDlaY5 70PgGrhQEwWxsnv4kin1km pYo8RiHaLXCffeSiiRnqIK U7b0DkXw02 O15kGMzuRCBgYRGdISNiOH LjyVymnf3xdF9iCe7+PC9j l2hycz10dQ68eCC+PHRkIH T2sAfeSMbd ZYDebX1pDTprUjD5FNPeDr LdcU73tCVcYRdiYk5buUgj mNhmCK1bNFZgkwdjj214Lg Dwo9flZTQs oDFcLKdgJVM0P72td6L1GS YqSOWdMTW2tCJ5pO8wzBip bjogbGVmdDsgdmVydGljYW oePLgyT528 IHRvcDsnPlBhdGllbnQgTm SxGTp8V2GyCzg2QSIuaTuc VT3fmOJkIEfeYj2maTdugG vnYE8bFLQy xokhe680LhGrp1qwRGZupS RvHBrvKHA0X60mp8C8HMBw ABCjTGM0oGE8uK5ypBwktb ogbGVmdDsg xgFkdAlxHMdiPFtrI291DJ RvcDsnPkJpcnRoIERhdGU6 ZN69CM26eCUij7C6gQW4K6 BhZGRpbmct xyazmLK9ONCbCKWshI56Km 9mcOikAp4nSBDjCDP1ORZa eCKvR6GttF3iVqGtBCNkAZ MbY9TnkQSr LJbmE903WKtmIdY8CIYlww MvL5CcVPHkzGkfDeP8z8Z6 At3DL7N3OZ45FG77xVDmt3 H7xRL6D2Xd DSExckfhxdwwhVX2EJVgIC IttA55Dr6czNwrZn6tTAEa EDI2JCGocZKjA7YebH6aDg AjMDAwMDAw Z2YdiKTzAEvyZ679IUtfRp W8MJCelaJoG2SuHBAazXws ZoW8r8K4Ri2LAHu5II69XX 54lNYjt3Z3 zMB4I3ImUDNyspderdckkO U9CVFyXLNeeI65Rm9buKks Ra0lKFRtFEE5AGVviTHnB7 MpwC0wLoRk MFLvAIZmG5LipJFvOVjcS1 35DEavIhU9KILloyQoF4Vx UMTmrQyoYyI0h0E9Mv3JBJ HzZM30TGO6 lWO2DQ12KD91R0KfDhtqtY FibGU+PHRhYmxlIHdpZHRo XMsvIEQcAnOwsKotBZ6xGv 9yZGVyLWNv rChoqWSlMwNdb3efPCCjFQ rpPT8grKnyR2IllRB0KSBy a0n8Bq31V49dC8UvoVR+PG GxdMI9tSD6 iX2zJdUdZsT1FCmkJ833To AceAFeVerzv3pym5gwtJj5 TiL2XSEobnHviFplEVN3w3 TyJa02Y96g IHdpZHRoPSIxNSUiIHZhbG fifu6dlS2iJm0+PGNvbCB3 fFY4tK8yDyMuAfZ8HBckH0 49InRvcCIv Ndjnw2vlq8afzCk1WrVgAE JzviZbiUgpIAH7u7UkFb41 Z5RfeVvji4VaCmp2mt65dL Dzc8R3jNR0 W6VwMZCvjcdanLQvjRslZE 0qFEWbcyixBAXjdM9xAUAf T3i9AqJnYnV9DJtzP0Xrkv B5UKQfjBBt CHafWTD6P71gv5N0QZHeHO CmAPK2kUJ8yH9huCihfayi bGVmdDsgdmVydGljYWwtYW voO195SIBw xMvgMJIueU5gIYDbjJAubC lyOO6aASIefbayPcVFSvSF BCidVS4DMoYLKHHqIgsvbE Q+PHRkIHN0 iUexHFyrKBTlwB7hIXHkV7 t0VxZzThE3EBgkW6GdNYCt irupYt78cG0mApZqTuU4WE mjF9PifiF9 ENQidYTiKUpcNFL6Z41ls3 P0OXUiWYNuMQR2kCN2xF6i bGlnbjogbGVmdDsgdmVydG ljYWwtYWxp Q609DUNtqZmjEqQoYxFhOz B8QLG4F6QlDvi9LRIaaQgf NE2xqFHiUMlrXr5qeBojuD geJW0gXXOd nzecCGZhxW0yYIEgpAXowS csRD1sEZScjhfjc914GeHq VEQ7OPPsoGEoL3HugD6bLf AjMDAwMDAw F2InuMFmEPokP041XZhdMf Q1KBJyjyReB6YyZXBqkStd UyO6p0M9Zf3kQFCSEVEfim wvdGQ+PHRk MOI0vNkoVXryKWWpyA5zAF StM9g5LeBvAmV7WIhcT8Yq OESlvhygEm73bD8zTmKqZp F2HBkaA4Zd ozB5IEEtgODrNDtzAWG5G3 8od6Q9BXNdWYFuKXD3tDY2 lP1urSdfhsxbdCQdtNrjzs VydGljYWwt PGdaR844TDNmxFbfFdCxzI FsZTwvdGQ+JKXvGQT2gPbk BXayODNslO7qSFGcQ3f0Vi OuGgO8BLch I4VyAGZsldktGw83bX9sVd UxXvX7AFbxY5SpfrQ1FHWq sNSxCXnwMZC6V60mi5R3RJ MwMDAwMDA7 rEN2pW5zbVgwqbkvtUZxiW fteoEygQfgUGyqYGtvT070 FGOhoBerFxEvVAXbNZ6fcK wvdGQ+PC90 op19W6WpKcdfQvf1VXGhHR Q4zHU7aW5sWHEzXXspp6P0 uIP3I2FboeRwze7vl8zvZE JuVJvgM83j gUHui7V2WHPfjZI5TVHtzW erLgCdwH56Awz+PGNvbGdy x3SjXsggx0daj3kbvGb5Lr MwJSIgdmFs aZgpHHC5o4TkIo66Z76zHP dpZHRoPSIzMCUiIHZhbGln hv2ogK8uHj3+XLSysME3qZ H5uT7fMpAz GoV0AEigP216GvFbsLKpVb fpa4iuv4fqmUd8ZrNiIKHx sdLawElaDEJ6p1TqZw04Z0 AovVima4Jh Kif7jq04sTUnt7S7rYT7C6 JxBESbrgzniHPvbJmgMG6i QPZgryplIATbsV3vUAQeY2 g9OaVeRjA8 QUxfN5OmnbP4YMYchUTyDK AajJQFfP5wrcdjd3triaxh ZlYnJBEkCLe9DVg5AGMuwV duOiBsZWZ0 XhV6HJG4qRKplO6reNrtvo unuZ9vLao+HCs3u7mumZCg XO0qbRR0WQ85CV94iNDpl9 O1rUJ2B4Zy FXNamutgwgfhzOO4KUGdOD HnlB14Uu2wuPaeAw9mTOHn CBZ6VBHpeWKnO4WkkI4cKu AjMDAwMDAw Z8MvkUNxTYoeH191INwmWt E9PKGotaMuL2VsRHMcgYbf PfF6z5A3Pu9CSN25KG96RR 41mTPdu5L8 wAV8A3YaKWQebjlamnxslV Q4LWKmACEglO08Tm2czLcv Yb6gURSmVDN9AYNywGImY9 QshW5bWgBk AXCkURUvQ0YthLMjVZgqV0 86XTfjEpI4HKJlwaJqY5Xf WWAqkAcpFuZ3s3G5Qm8DZd 45TV60PB69 lXMuj5F7oPO0B7MhMWWkxo whdudeiSZ9JARqQLCruP25 Vn7giTroBm9kYXTmYQF6CK LziSOcJ9Gd xZ7kKiCvLNQvRZZdR7DajM JjUWihJ687OJhrKiW7LSWl urUmI3GiKRIscXkjVqE5y8 I3Bg9KRDlu zfe9O8LdGkgplQU+PC90YW DtMZ66rHTjaPGsn3lzpJp1 FuBkATNuGFP3tXbhGXahb8 SxQRPrO76a bGFw (more content not included)... Normal [facility] Consent for Procedure/Surger yon 06-14-2020 Consent for Procedure/Surgery [id number]#1.0 0CD:127 Normal [facility] Consent for Treatmenton Consent for Treatment [id number]#1.00C D:127 Normal [facility] Inpatient Patient Summaryon 06-14-2020 Inpatient Patient Summary [address] [address] [facility] Clinical Discharge Instructions PERSON INFORMATION Name: ANTOINETTE RECIO [facility]ICIANS Admitting Physician: Jordan Bhakta DO Attending Physician: Jordan Bhakta DO PCP: NONE, XXXX Discharge Diagnosis: Comment: PATIENT EDUCATION INFORMATION Instructions: Shoulder Cryocuff Patient Instructions - FT (CUSTOM); Post Op Patient Instructions - FT (Custom) (CUSTOM); Silvana Bhakta - Shoulder Replacement (Custom) Medication Leaflets: Follow up: With: Address: When: [place] [address] Business (1) 06/21/2020 8:45 AM Comments: Call for any problems. Keep scheduled appointment MEDICATION LIST New Medications [facility], [address], [place] [id number], [phone] acetaminophen-oxycodon e (Percocet 325 mg-5 mg Tab) 1-2 tab(s) Oral q4hr; as needed as needed for pain. Refills: 0. docusate (Colace 100 mg Cap) 1 Capsules By Mouth 2 times a day as needed for constipation. Refills: 0. Medications to Continue Taking That Have Changed [facility], [place] [id number], [phone] START: naproxen (naproxen 500 mg Tab) 1 Tablets By Mouth 2 times a day. with food. Refills: 0. Other Medications START: naproxen (naproxen 500 mg Tab) 1 Tablets By Mouth 2 times a day. Take one tab by mouth two times a day. Refills: 0. Comment: Normal [facility] Main OR PACU I Recordon 05-0 Main OR PACU I Record PACU Phase I Docum ent Type FT Summary Primary Physician: Jordan Bhakta DO Finalized Date/Time: 06/14/20 19:45:42 Pt. Name: ANTOINETTE RECIO /Sex: 1995 Female Med Rec #: [id number] Physician: Jordan Bhakta DO Financial #: [id number] Pt. Type: A Room/Bed: [facility]/01 Admit/Disch: 06/14/20 15:28:52 - Institution: Case Times PACU I FT Pre-Care Text: Identifies barriers to communication and implements measures to provide psychological support Develops individualized plan of care, and ensures continuity of care Maintains patient's dignity and privacy, and maintains patient confidentiality Identifies and reports philosophical, cultural, and spiritual beliefs and values Identifies individual values and wishes concerning care Implements aseptic technique, and administers prescribed antibiotic therapy and immunizing agents as ordered Evaluates postoperative tissue perfusion Implements thermoregulation measures, and monitors body temperature Evaluates postoperative respiratory status Evaluates postoperative cardiac status Evaluates postoperative neurological status Assesses pain control, collaborated in initiating patient-controlled analgesia and implements alternative methods of pain control Verifies allergies, administers prescribed medications and solutions, evaluates response to medications Entry 1 In PACU I 06/14/20 19:12:00 Discharge from PACU 06/14/20 20:00:00 I Outcomes Met? Yes Last Modified By: Yvette Santa RN 06/14/20 19:45:29 Post-Care Text: The patient demonstrates knowledge of the expected response to the operative or invasive procedure The patient's care is consistent with the individualized perioperative plan of care The patient's right to privacy is maintained The patient's value system, lifestyle, ethnicity, and culture are considered, respected, and incorporated into the perioperative plan of care The patient participates in decisions affecting his or her perioperative plan of care The patient is free from signs and symptoms of infection The patient has wound/tissue perfusion consistent with or improved from baseline levels established preoperatively The patient is at or returning to normothermia at the conclusion of the immediate postoperative period The patient's respiratory function is consistent with or improved from baseline levels established preoperatively The patient's cardiovascular status is consistent with or improved from baseline levels established preoperatively The patient's cardiovascular status is consistent with or improved from baseline levels established preoperatively The patient demonstrates and/or reports adequate pain control throughout the perioperative period The patient received appropriate medication(s), safely administered during the perioperative period Acuity Level PACU I FT Entry 1 Start Time 06/14/20 19:12:00 Stop Time 06/14/20 20:00:00 Acuity Level Acuity Level I Last Modified By: Yvette Santa RN 06/14/20 19:45:40 Finalized By: Yvette Santa RN Document Signatures Signed By: Yvette Santa RN 06/14/20 19:45 Normal [facility] Main OR PACU II [facility] Main OR PACU II Record PACU Phase II Doc ument Type FT Summary Primary Physician: Jordan Bhakta DO Finalized Date/Time: 06/14/20 21:13:50 Pt. Name: ANTOINETTE RECIO Azalea ArringtonB./Sex: 1995 Female Med Rec #: [id number] Physician: Jordan Bhakta DO Financial #: [id number] Pt. Type: A Room/Bed: [place] [address] Admit/Disch: 06/14/20 15:28:52 - 06/14/20 21:05:00 Institution: Case Times PACU II FT Pre-Care Text: Identifies barriers to communication and implements measures to provide psychological support and determines knowledge level Develops individualized plan of care, and ensures continuity of care Maintains patient's dignity and privacy, and maintains patient confidentiality Identifies and reports philosophical, cultural, and spiritual beliefs and values Identifies individual values and wishes concerning care administers prescribed antibiotic therapy and immunizing agents as ordered, Evaluates postoperative tissue perfusion Implements thermoregulation measures, and monitors body temperature Evaluates postoperative respiratory status Evaluates postoperative cardiac status Evaluates postoperative neurological status Assesses pain control, collaborated in initiating patient-controlled analgesia and implements alternative methods of pain control Verifies allergies, administers prescribed medications and solutions, evaluates response to medications Entry 1 In PACU II 06/14/20 20:05:00 Discharge from PACU 06/14/20 21:05:00 II Outcomes Met? Yes Last Modified By: Soraya Dixon RN 06/14/20 21:13:49 Post-Care Text: The patient demonstrates knowledge of the expected response to the operative or invasive procedure The patient's care is consistent with the individualized perioperative plan of care The patient's right to privacy is maintained The patient's value system, lifestyle, ethnicity, and culture are considered, respected, and incorporated into the perioperative plan of care The patient participates in decisions affecting his or her perioperative plan of care. The patient is free from signs and symptoms of infection The patient has wound/tissue perfusion consistent with or improved from baseline levels established preoperatively The patient is at or returning to normothermia at the conclusion of the immediate postoperative period The patient's respiratory function is consistent with or improved from baseline levels established preoperatively The patient's cardiovascular status is consistent with or improved from baseline levels established preoperatively The patient's neurological status is consistent with or improved from baseline levels established preoperatively The patient demonstrates and/or reports adequate pain control throughout the perioperative period The patient received appropriate medication(s), safely administered during the perioperative period Finalized By: Soraya Dixon RN Document Signatures Signed By: Soraya Dixon RN 06/14/20 21:13 Normal [facility] Main OR Preoperative Recordo n 06-14-2020 Main OR Preoperative Record PreOp Document Type FT Summary Primary Physician: Jordan Bhakta DO Finalized Date/Time: 06/14/20 18:03:47 Pt. Name: ANTOINETTE RECIO /Sex: 1995 Female Med Rec #: [id number] Physician: Jordan Bhakta DO Financial #: [id number] Pt. Type: A Room/Bed: [place] [address] Admit/Disch: 06/14/20 15:28:52 - Institution: Case Times PreOp FT Pre-Care Text: Verifies consent for planned procedure, identifies individual values and wishes concerning care, includes family members in perioperative teaching Entry 1 Patient Times. In Pre Surgery 06/14/20 15:35:00 Out Pre Surgery 06/14/20 16:53:00 Outcomes Met? Yes Last Modified By: Alycia Cash RN 06/14/20 18:03:42 Post-Care Text: The patient participates in decisions affecting his or her perioperative plan of care Finalized By: Alycia Cash RN Document Signatures Signed By: Alycia Cash RN 06/14/20 18:03 Normal [facility] Monitor Recordon 06-14-2020 Monitor Record [id number]. 00CD:127 [facility] Operative Reporton Operative Report Patient: ANTOINETTE RECIO Age: 25 years Sex: Female : 1995 Associated Diagnoses: None Author: Jordan Bhakta DO full operative report dictated Postoperative Information Procedure: ORIF L clavicle Preoperative Diagnosis: L clavicle fx. Postoperative Diagnosis: same. Performed by: Jordan Bhakta DO Estimated Blood Loss: 100 mL. Complications: None. Notes: to PACU in good condition. Anesthesia type: General, Regional. anesthesiologist: abhinav Williamson [facility] Comment on above: Result Comment: Elec tronically Signed By: Jordan Bhakta DO\.br\Date and Time Signed: 06/14/20 19:03 EDT Outpatient Surgery Discharge Instructionon 06-14-2020 Outpatient Surgery Discharge Instruction [address] [address] Patient Discharge Instructions PERSON INFORMATION Name: ANTOINETTE RECIO Date of : 1995 Current Date: 06/14/2020 20:26:49 PHYSICIANS Admitting Physician: Jordan Bhakta DO Discharge Diagnosis: ANTOINETTE RECIO has been given the following list of follow-up instructions, prescriptions, and patient education materials: IF UNABLE TO CONTACT YOUR PHYSICIAN AND YOU FEEL IT IS AN EMERGENCY, GO TO THE NEAREST EMERGENCY ROOM OR CALL 911 IALMITA MIRANDA F, have received the attached patient education materials/instructions and have verbalized understanding: May we do a follow up call? Yes No I was present when discharge instructions were given Patient Signature Date Clinican/Nurse Signature ___ Date Follow up: With: Address: When: Jordan Bhakta [address] [place] [address] [address] [facility] (1) 06/21/2020 8:45 AM Comments: Call for any problems. Keep scheduled appointment Pharmacy Information: [facility] You may receive a survey from Molly Salmon asking you to rate your care experience. Your feedback is important and will help us understand what we do well and how we can improve the quality of care we provide to you, your loved ones and our community. It?s an honor to serve you. Thank you for choosing [facility] HERE ARE THE MEDICATION CHANGES THAT OCCURRED DURING YOUR HOSPITAL STAY New Medications [facility] [address], [place] [id number], [phone] acetaminophen-oxycodon e (Percocet 325 mg-5 mg Tab) 1-2 tab(s) Oral q4hr; as needed as needed for pain. Refills: 0. docusate (Colace 100 mg Cap) 1 Capsules By Mouth 2 times a day as needed for constipation. Refills: 0. Medications to Continue Taking That Have Changed [place] [address], [address], [place] [id number], [phone] START: naproxen (naproxen 500 mg Tab) 1 Tablets By Mouth 2 times a day. with food. Refills: 0. Other Medications START: naproxen (naproxen 500 mg Tab) 1 Tablets By Mouth 2 times a day. Take one tab by mouth two times a day. Refills: 0. PATIENT EDUCATION INFORMATION Instructions: [place] [facility] DISCHARGE INSTRUCTIONS: SHOULDER SURGERY MEDICATIONS You will be given a prescription for pain medication. This should be taken with food as needed. This may cause stomach upset, dizziness, and possible constipation. Please notify the office if you have any medication allergies to this type of medication or if any problems develop with the medication. DRESSING CHANGES Leave your bandage in place until your follow up visit. The bandage is waterproof, so you may shower it home. Any increase in pain, temperature over 101 degrees, redness, or drainage should be reported to the office prior to your first office visit. ACTIVITY You may continue to progress activity as comfortably tolerated with your opposite arm. You may begin to use your elbow, wrist, and hand as directed in physical therapy. You should only remove your sling for bathing and to perform range of motion exercises for the hand, wrist, and elbow. Do not actively move your shoulder Continue to ice the shoulder several times per day until follow up. ANESTHESIA PRECAUTIONS You should not operate a vehicle, automobile, bicycle or motorcycle, machinery, or power tools, make any important decisions, or drink alcohol for 24 hours. It may be beneficial to have a responsible adult remain with you for your first 24 hours after surgery. You may be drowsy and light-headed. DRIVING Driving is legal, however, if you are involved in an accident, you must be able to prove that you maintained full control of your vehicle. For this reason, it is advised that you do not drive until your strength returns. PROBLEMS You should notify the office for any persistent or heavy bleeding, temperature above 101, redness, swelling, or drainage from the operative site, severe pain at the operative site, or the development of persistent vomiting. Jordan Bhakta, DO [facility] [address] [place] [address] Reviewed: Normal [facility] Patient Education - Texton 0 06-14-2020 Patient Education - Text [place] [facility] DISCHARGE INSTRUCTIONS: SHOULDER SURGERY MEDICATIONS You will be given a prescription for pain medication. This should be taken with food as needed. This may cause stomach upset, dizziness, and possible constipation. Please notify the office if you have any medication allergies to this type of medication or if any problems develop with the medication. DRESSING CHANGES Leave your bandage in place until your follow up visit. The bandage is waterproof, so you may shower it home. Any increase in pain, temperature over 101 degrees, redness, or drainage should be reported to the office prior to your first office visit. ACTIVITY You may continue to progress activity as comfortably tolerated with your opposite arm. You may begin to use your elbow, wrist, and hand as directed in physical therapy. You should only remove your sling for bathing and to perform range of motion exercises for the hand, wrist, and elbow. Do not actively move your shoulder Continue to ice the shoulder several times per day until follow up. ANESTHESIA PRECAUTIONS You should not operate a vehicle, automobile, bicycle or motorcycle, machinery, or power tools, make any important decisions, or drink alcohol for 24 hours. It may be beneficial to have a responsible adult remain with you for your first 24 hours after surgery. You may be drowsy and light-headed. DRIVING Driving is legal, however, if you are involved in an accident, you must be able to prove that you maintained full control of your vehicle. For this reason, it is advised that you do not drive until your strength returns. PROBLEMS You should notify the office for any persistent or heavy bleeding, temperature above 101, redness, swelling, or drainage from the operative site, severe pain at the operative site, or the development of persistent vomiting. Jordan Bhakta, DO [facility] [address] [place] [address] Reviewed: Normal [facility] BMPon 06-13-2020 Anion gap [Moles/Vol] 12 mmol/L Normal -16 [facility] Comment on above: Performed By: #### 2 [id number], [id number], [id number] ####[facility] [address] [place] [address] Calcium [Mass/Vol] 9.1 mg/dL Normal 8.9-11.1 [facility] Comment on above: Performed By: #### 2 342457, [id number], [id number] ####[facility] [address] [place] [address] Chloride [Moles/Vol] 105 mmol/L Normal 101-111 [facility] Comment on above: Performed By: #### 2 321630, [id number], [id number] ####[facility] [address] [place] [address] CO2 [Moles/Vol] 29 mmol/L Normal 21-31 [facility] Comment on above: Performed By: #### 2 655358, [id number], [id number] ####[facility] [address] [place] [address] Creatinine [Mass/Vol] 0.7 mg/dL Normal 0.5-1.3 [facility] Comment on above: Performed By: #### 2 315564, [id number], [id number] ####[facility] [address] [facility] [place] [address] Glucose [Mass/Vol] 82 mg/dL Normal 55-199 [facility] Comment on above: Result Comment: If t his glucose result represents a fasting glucose, interpretation should refer to the following reference range: 55-99 mg/dL Performed By: #### 2 677535, [id number], [id number] ####[facility] [address] [place] [address] Potassium [Moles/Vol] 3.9 mmol/L Normal 3.5-5.3 [facility] Comment on above: Performed By: #### 2 875784, [id number], 7702152 ####[facility] [address] [place] [address] Sodium [Moles/Vol] 142 mmol/L Normal 135-145 [facility] Comment on above: Performed By: #### 2 918388, 21246797, 0584251 ####[facility] [address] [place] [address] Urea nitrogen [Mass/Vol] 14 mg/dL Normal 5-21 [facility] Comment on above: Performed By: #### 2 423074, 43051657, 1500443 ####[facility] [address] [place] [address] Urea nitrogen/Creatinine [Mass ratio] 20 No Units Normal 10-20 [facility] Comment on above: Performed By: #### 2 019833, [id number], 4770343 ####[address] [address] CBC w/Indiceson 06-13-2020 Erythrocyte distribution width (RBC) [Ratio] 14.3 % High 10.9-14.2 [facility] Comment on above: Performed By: #### 2 364878, [id number], [id number] ####[address] [address] Hematocrit (Bld) [Volume fraction] 36.4 % Normal 34.0-46.0 [facility] Comment on above: Performed By: #### 2 705320, 75659038, 8074044 ####[address] [address] Hemoglobin (Bld) [Mass/Vol] 11.9 g/dL Low 12.0-16.0 [facility] Comment on above: Performed By: #### 2 432808, [id number], 1987627 ####[address] [address] MCH (RBC) [Entitic mass] 27.5 pg Normal 27.0-34.0 [facility] Comment on above: Performed By: #### 2 770980, [id number], 0500828 ####[facility] [address] [place] [address] MCHC (RBC) [Mass/Vol] 32.6 g/dL Normal 31.4-36.0 [facility] Comment on above: Performed By: #### 2 378607, 04586032, 2657845 ####[address] [address] MCV (RBC) [Entitic vol] 84.4 fL Normal 80.0-100.0 [facility] Comment on above: Performed By: #### 2 262664, 61352558, 5426218 ####[facility] [address] [place] [address] Platelet mean volume (Bld) [Entitic vol] 7.5 fL Normal 6.4-10.8 [facility] Comment on above: Performed By: #### 2 634521, 69202794, 8045593 ####[address] [address] Platelets (Bld) [#/Vol] 319.0 E9/L Normal 150.0-500.0 [facility] Comment on above: Performed By: #### 2 800944, 97427884, 7130719 ####[address] [address] RBC (Bld) [#/Vol] 4.3 E12/L Normal 4.3-5.9 [facility] Comment on above: Performed By: #### 2 509613, 57340285, 7137330 ####[address] [address] WBC corrected for nucl RBC Auto (Bld) [#/Vol] 6.8 E9/L Normal 4.0-11.0 [facility] Comment on above: Performed By: #### 2 585387, 99820511, 2174870 ####[address] [address] Consent for Treatmenton Consent for Treatment [id number] 0CD:127 Normal [facility] Physician Orderon 06-13-2020 Physician Order [id number]. 00CD:127 Normal [facility] Physician Order [id number]. 00CD:127 Normal [facility] Progress Note-Physicianon Progress Note-Physician Patient: ANTOINETTE RECIO Age: 25 years Sex: Female : 1995 Associated Diagnoses: None Author: Godfrey Graves JR, DO Preoperative Information Anesthesia history: Patient History: Pt./ family denies any personal or family hx of problems/difficulties with anesthesia.. Re-eval prior to induction: Inital eval reviewed: No significant interval change, NPO 10 hours.. Review of Systems Constitutional: See nursing assessment.. Cardiovascular: Cardiac risk assessment performed. Pt. denies any significant change in their cv hx.. Respiratory: Pt. denies any signicant change in their respiratory status.. Neurologic: Pt. denies any acute neurological changes.. Health Status Allergies: Allergic Reactions (Selected) Severity Not Documented Azithromycin- Tachycardia., Allergies (1) Active Reaction azithromycin Tachycardia Current medications: (Selected) Inpatient Medications Ordered Lactated Ringers IV Deb 1000 mL 1,000 mL: 1,000 mL, IV, 150 mL/hr, Routine, Start date 06/14/20 15:30:00 EDT, 6.7 hour(s), Total volume (mL): 1,000 cefazolin additive + Premix Dextrose 5% Diluent 50 mL: 2 gram = 50 mL, Soln-IV, IV Piggyback, PREOP, Routine, Start date 06/14/20 15:30:00 EDT, 100 mL/hr, Infuse over 30 minute(s) famotidine 10 mg/mL IV Deb: 20 mg = 2 mL, Soln-IV, IV, Once, Stop date 06/14/20 16:00:00 EDT, Routine, Start date 06/14/20 16:00:00 EDT Prescriptions Prescribed Percocet 5 mg-325 mg oral tablet: 1 tab(s), Oral, q6hr for 3 day(s), 12 tab(s), Refill(s) 0 naproxen 500 mg Tab: 500 mg = 1 tab(s), Oral, BID, Take one tab by mouth two times a day, # 14 tab(s), Refills(s) 0, Medications (3) Active Scheduled: (2) ceFAZolin + Dextrose 5% Premix Diluent 50 mL 2 gram 50 mL, IV Piggyback, PREOP famotidine 10 mg/mL IV Deb [F] 20 mg 2 mL, IV, Once Continuous: (1) Lactated Ringers 1,000 mL 1,000 mL, IV, 150 mL/hr PRN: (0) Problem list: No problem items selected or recorded., No qualifying data available Histories Past Medical History: No active or resolved past medical history items have been selected or recorded. Family History: No family history items have been selected or recorded. Procedure history: Gastric sleeve ([id number]) in 2019 at 22 Years. Tonsillectomy ([id number]). Social History Social & Psychosocial Habits Alcohol 06/11/2020 Use: Current Type: Beer, Liquor Frequency: 3-5 times per week 06/11/2020 Risk Assessment: Medium Risk Substance Abuse 06/11/2020 Risk Assessment: Denies Substance Abuse Comment: denies - 06/11/2020 12:27 - Renetta Connor RN Tobacco Comment: bakari - 06/11/2020 12:26 - Renetta Connor RN 06/11/2020 Risk Assessment: Denies Tobacco Use . Physical Examination No qualifying data available Airway: Normal oral/pharyngeal anatomy.. Respiratory: Adequate air exchange.. Cardiovascular: Adequate perfusion and function. Review / Management Results review: No qualifying data available . Plan [place] [employer]esthesi[employer] (ASA) physical status classification: Class I. Anesthetic Preoperative Plan Anesthesia: General. , Regional Interscalene Block. Anesthetic plan, risks, benefits, and alternatives discussed with the patient and/or family. Pt. and/or family present and agree to proceed as planned.. Discussed the importance of abstaining from tobacco products, and offered counseling if desired. Normal [facility] Comment on above: Result Comment: Elec tronically Signed By: Godfrey Graves JR, DO.candice\Date and Time Signed: 06/13/20 15:05 EDT U BetaHcg Qualon 06-13-2020 HCG.beta subunit (U) [Moles/Vol] Negative Normal [facility] Comment on above: Performed By: #### 2 [id number] #### [facility] Laboratory [address] [id number] eGFRon 06-13-2020 GFR/1.73 sq M.predicted among blacks MDRD (S/P/Bld) [Vol rate/Area] mL/min/{1.73_m2} Normal >=59 [facility] Comment on above: Order Comment: Order added by Discern Expert. Result Comment: eGFR is race adjusted. AA=. Performed By: #### 2 744224, [id number], [id number] ####[facility] [address] [place] [address] GFR/1.73 sq M.predicted among non-blacks MDRD (S/P/Bld) [Vol rate/Area] mL/min/{1.73_m2} Normal >=59 [facility] Comment on above: Order Comment: Order added by Discern Expert. Result Comment: Child Care Aide mile kidney disease could be indicated at eGFR's of less than 60 mL/min/1.73m2. Kidney failure is indicated at less than 15 mL/min/1.73m2. Performed By: #### 2 617561, [id number], [id number] ####[facility] [address] [place] [address] COVID-19 ([facility])on 06-12-2020 Employed in Healthcare NO Normal [facility] Comment on above: Performed By: #### 2 [id number] ####[facility] [address] [place] [address] First Test Unknown Normal [facility] Comment on above: Performed By: #### 2 [id number] ####[facility] [address] [facility] [place] [address] Hospitalized? NO Normal [facility] Comment on above: Performed By: #### 2 [id number] ####[facility] [address] [facility] [place] [address] ICU NO Normal [facility] Comment on above: Performed By: #### 2 [id number] ####[facility] [address] [place] [address] ? Unknown Normal [facility] Comment on above: Performed By: #### 2 [id number] ####[facility] [address] [place] [address] Resides in a Congregate Care Setting NO Normal [facility] Comment on above: Performed By: #### 2 [id number] ####[facility] [address] [place] [address] Symptomatic as defined by [facility] Unknown Normal [facility] Comment on above: Performed By: #### 2 [id number] ####[facility] [address] [place] [address] Physician Orderon 06-12-2020 Physician Order [id number] 0CD:127 [facility] Consent for Treatmenton Consent for Treatment [id number] 0CD:127 [facility] Discharge Instructionson Discharge Instructions [id number]. 00CD:127 [facility] ED Clinical Summaryon 2020 ED Clinical Summary [place] [id number] ED Clinical Summary Person Information Name: ANTOINETTE RECIO [facility] Age: 25 Years : 1995 Sex: Female Language: Luxembourger PCP: Isaiah BHAKTA MD Marital Status: Visit Id: Visit Reason: Arm pain-swelling; Eye reevaluation; Fall; FELL DOWN STEP SAT- BROKEN COLLARBONE, PAIN Speciality: Acuity: 3 Enc Type: Emergency Med Service: Emergency Arrival: 06/11/2020 10:49:37 Discharge: 06/11/2020 12:47:50 LOS: 000 01:58 Checkin: 06/11/2020 10:49:37 Checkout: 06/11/2020 12:47:50 Dispo Type: Home (Routine DC) EVENTS: Event Name Event Status Request Date/Time Start Date/Time Complete Date/Time Arrive Complete 06/11/2020 10:49:37 06/11/2020 10:49:37 06/11/2020 10:49:37 Document Home Meds Request 06/11/2020 10:49:37 Triage Complete 06/11/2020 10:49:37 06/11/2020 11:03:52 06/11/2020 11:03:52 X-Ray Complete 06/11/2020 11:21:21 06/11/2020 11:23:10 06/11/2020 11:35:32 Wet Read Complete 06/11/2020 11:35:32 06/11/2020 11:43:14 06/11/2020 11:43:14 Bed Assign Complete 06/11/2020 12:17:03 06/11/2020 12:17:03 06/11/2020 12:17:03 Dr Exam Complete 06/11/2020 12:17:03 06/11/2020 12:18:36 06/11/2020 12:18:36 RN Exam Complete 06/11/2020 12:17:03 06/11/2020 12:28:09 06/11/2020 12:28:09 Registration Complete 06/11/2020 12:18:36 06/11/2020 12:31:11 06/11/2020 12:31:11 Reg Complete Request 06/11/2020 12:31:11 Reg Bed Request Complete 06/11/2020 12:31:11 06/11/2020 12:31:11 06/11/2020 12:31:11 Discharge Complete 06/11/2020 12:37:11 06/11/2020 12:47:55 06/11/2020 12:47:55 Transfer Complete 06/11/2020 12:47:55 06/11/2020 12:47:55 06/11/2020 12:47:55 ADDRESS: [address] [place] [phone] PHYS DOC NOTES: MEDICAL INFORMATION: Prescriptions Given: New Medications Printed Prescriptions acetaminophen-oxycodon e (Percocet 5 mg-325 mg oral tablet) 1 Tablets By Mouth every 6 hours for 3 Days. Refills: 0. naproxen (naproxen 500 mg Tab) 1 Tablets By Mouth 2 times a day. Take one tab by mouth two times a day. Refills: 0. Medications to Continue with No Changes Other Medications atenolol (atenolol 25 mg Tab) 0.5 tab By Mouth every day. PATIENT EDUCATION INFORMATION: Instructions: Follow up: With: Address: When: Jordan Bhakta [address] [place] [address] Business (1) 06/12/2020 3:15 PM With: Address: When: Isaiah BHAKTA [address] [place] [address] Business (1) In 3 days DIAGNOSIS: Fracture of left clavicle Normal [facility] ED Note-Physicianon 06-12-19 ED Note-Physician Basic Information Time Seen: Sara Burdick DO 06/11/2020 12:18 Chief Complaint Pt reports broken collar bone and stitches above eye. Went to [facility] ED sat and sent to [facility]. Pt reports still in pain and was supposed to have surgery today but was awaiting surgery approval. Pt needs surgery per pt. History of Present Illness 25 female presents to the emergency department with concern about a known left clavicle fracture. Patient states on Thursday night she fell down a flight of stairs having multiple injuries including fracture of the left clavicle. She was taken from the [facility] transferred to a hospital in [place] where she was discharged 20 minutes later and she reports the reason for the discharge was that she had some type of conflict with her insurance and being out of network. Patient has been using her sling with minimal relief of symptoms at home and she has taken all of her medication for pain. She is concerned because she was told that this type of fracture could cause an injury to her lungs and she was also told that she needed to have surgery and she has no plan in place and therefore is frustrated by this. She presents today requesting medication for pain and consultation with orthopedics to come up with a plan. No other aggravating or relieving factors no other associated symptoms no other prior treatments or complaints. Family: Reviewed and noncontributory Social: lives at home Review of systems negative unless otherwise specified in the HPI. Physical Exam Vitals & Measurements T: 36.8 ?C (Oral) HR: 72(Peripheral) RR: 18 BP: 127/88 SpO2: 97% Vital Signs reviewed and noted. General: Alert, no acute distress, patient resting comfortably Skin: warm, intact, no pallor noted recently repaired laceration consistent with stated history of falls with facial lacerations Head: Normocephalic, atraumatic Eye: Normal conjunctiva Cardiac: Normal peripheral perfusion Respiratory: No acute distress Musculoskeletal: Patient has shoulder and left sling she does have some tenderness along the left clavicle Neurological: alert and oriented, normal sensory and motor observed. Psychiatric: Cooperative Medical Decision Making Case discussed with Dr. Bhakta from orthopedics he will see the patient tomorrow at [address] [place] and she is treated with anti-inflammatories and given Percocet for pain Assessment/Plan Fracture of left clavicle (S42.002A: Fracture of unspecified part of left clavicle, initial encounter for closed fracture) Ordered: acetaminophen-oxycodon e, 1 tab(s), Oral, q6hr for 3 day(s), 12 tab(s), Refill(s) 0 Orders: naproxen, 500 mg = 1 tab(s), Oral, BID, Take one tab by mouth two times a day, # 14 tab(s), Refills(s) 0 XR Chest 2 Views Disposition Plan Discharge Prescription List Prescriptions naproxen 500 mg Tab, 500 mg= 1 tab(s), Oral, BID Percocet 5 mg-325 mg oral tablet, 1 tab(s), Oral, q6hr Follow-up With When Contact Information Jordan Bhakta 06/12/2020 03:15 PM EDT [address] [place] [address]- Business (1) Additional Instructions: Isaiah BHAKTA In 3 days [address] [place] [address]- Business (1) Additional Instructions: Problem List/Past Medical History Ongoing No qualifying data Historical No qualifying data Medications Inpatient No active inpatient medications Home atenolol 25 mg Tab, 0.5 tab, Oral, Daily naproxen 500 mg Tab, 500 mg= 1 tab(s), Oral, BID Percocet 5 mg-325 mg oral tablet, 1 tab(s), Oral, q6hr Allergies No Known Medication Allergies Social History Alcohol - Medium Risk, 06/11/2020 Current, Beer, Liquor, 3-5 times per week, 06/11/2020 Substance Abuse - Denies Substance Abuse, 06/11/2020 Tobacco - Denies Tobacco Use, 06/11/2020 Lab Results No qualifying data available. Diagnostic Results XR Chest 2 Views 06/11/20 12:08:52 POSITIVE: Fracture of the left clavicle with 100% displacement Read By: Sara Burdick DO 06/11/20 12:20:16 IMPRESSION: DISPLACED MID LEFT CLAVICULAR FRACTURE. NO ACUTE INFILTRATE OR PNEUMOTHORAX. CLINICAL HISTORY: Recent trauma with fractured left clavicle. COMPARISONS: None available. FINDINGS: 2 views were obtained. Normal cardiac silhouette. All there is a fracture through midportion of the left clavicle. The proximal portion the left clavicle lies superior to the distal portion for greater than a shaft?s diameter. Lungs are clear without consolidation. No pleural effusion or pneumothorax. There are mild degenerative changes in spine. Signed By: Nathaniel SIMEON, Marisa [facility] Comment on above: Result Comment: Elec tronically Signed By: Sara Burdick DO\.br\Date and Time Signed: 06/11/20 12:39 EDT ED Patient Education Noteon 06-11-2020 ED Patient Education Note Normal [facility] ED Patient Summaryon 021 ED Patient Summary [place] [id number] Patient Discharge Instructions Person Information Name: ANTOINETTE RECIO Age: 25 Years Arrival Date: 06/11/2020 10:49:37 Discharge Diagnosis: Fracture of left clavicle Primary Care Physician: Isaiah BHAKTA MD Provider Information Primary Provider: Sara Burdick DO Advanced Wig Stylist:None The exam and treatment you received in the Emergency Department were for an urgent problem and are not intended as complete care. It is important that you follow up with a doctor, nurse practitioner, or physician?s accounting administrative assistant for ongoing care. If your symptoms become worse or you do not improve as expected and you are unable to reach your usual health care provider, you should return to the Emergency Department. We are available 24 hours a day. ANTOINETTE RECIO has been given the following list of patient education materials, prescriptions and follow-up instructions: Follow-up Instructions: With: Address: When: Jordan Bhakta [address] [place] [address] Business (1) 06/12/2020 3:15 PM With: Address: When: Isaiah LIVIA [address] [place] [address] Business (1) In 3 days In the event that this physician does not participate in your insurance network, please consult with your insurance company to find a nearby participating provider. Patient Education Materials: A MESSAGE TO ALL PATIENTS REGARDING OPIOIDS PRESCRIPTION OPIOIDS: WHAT YOU NEED TO KNOW Prescription opioids can be used to help relieve esmoepiv-ys-afbprc pain and are often prescribed following a surgery or injury, or for certain health conditions. These medications can be an important part of the treatment but also come with serious risks. It is important to work with your healthcare provider to make sure you are getting the safest, most effective care. WHAT ARE THE RISKS AND SIDE EFFECTS OF OPIOID USE? Prescription opioids carry serious risks of addiction and overdose, especially with prolonged use. An opioid overdose, often marked by slowed breathing, can cause sudden . The use of prescription opioids can have a number of side effects as well, even when taken as directed: ? Tolerance?meaning you might need to take more of the medication for the same pain relief ? Physical dependence?meaning you have symptoms of withdrawal when a medication is stopped ? Increased sensitivity to pain ? Constipation ? Nausea, vomiting, and dry mouth ? Sleepiness and dizziness ? Confusion ? Depression ? Low levels of testosterone that can result in lower sex drive, energy, and strength ? Itching and sweating RISKS ARE GREATER WITH: ? History of drug misuse, substance use disorder, or overdose ? Mental health conditions (such as depression or anxiety) ? Sleep apnea ? Older age (65 years and older) ? Avoid alcohol while taking prescription opioids. Also, unless specifically advised by your health care provider, medications to avoid include: ? Benzodiazepines (such as Xanax or Valium) ? Muscle relaxants (such as Soma or Flexeril) ? Hypnotics (such as Ambien or Lunesta) ? Other prescription opioids KNOW YOUR OPTIONS Talk to your health care provider about ways to manage your pain that don?t involve prescription opioids. Some of these options may actually work better and have fewer risks and side effects. Options may include: ? Pain relievers such as acetaminophen, ibuprofen, and naproxen ? Some medication that are also used for depression or seizures ? Physical therapy and exercise ? Cognitive behavioral therapy, a psychological, goal-directed approach, in which patients learn how to modify physical, behavioral, and emotional triggers of pain and stress. IF YOU ARE PRESCRIBED OPIOIDS FOR PAIN: ? Never take opioids in greater amounts or more often than prescribed. ? Follow up with your primary health care provider. o Work together to create a plan on how to manage your pain. o Talk about ways to help manage your pain that don?t involve prescription opioids. o Talk about any and all concerns and side effects. ? Help prevent misuse and abuse o Never sell or share prescription opioids. o Never use another person?s prescription opioids. ? Store prescription opioids in a secure place and out of reach of others (this may include visitors, children, friends, and family). ? Safely dispose of unused prescription opioids: Find your community drug take-back program or your pharmacy mail-back program, or flush them down the toilet, following guidance from the Food and Drug Administration (www.fda.gov/Drugs/Res ourcesForYou). ? Visit www.cdc.gov/drugoverdo se to learn about the risks of opioids abuse and overdose. ? If you believe you may be struggling with addiction, tell your health care pro (more content not included)... Normal [facility] XR Chest 2 Viewson XR Chest 2 Views Exam Date/Time: 06/11/2020 11:35 EDT Reason for Exam: Difficulty breathing Report IMPRESSION: DISPLACED MID LEFT CLAVICULAR FRACTURE. NO ACUTE INFILTRATE OR PNEUMOTHORAX. CLINICAL HISTORY: Recent trauma with fractured left clavicle. COMPARISONS: None available. FINDINGS: 2 views were obtained. Normal cardiac silhouette. All there is a fracture through midportion of the left clavicle. The proximal portion the left clavicle lies superior to the distal portion for greater than a shaft's diameter. Lungs are clear without consolidation. No pleural effusion or pneumothorax. There are mild degenerative changes in spine. FINAL REPORT Dictated: 06/11/2020 12:17 pm Marisa Armstrong MD Signed (Electronic Signature): 06/11/2020 12:17 pm Signed by: Marisa Armstrong MD Transcribed by: MICHAEL Technologist: ABDULLAHI Williamson [facility] CBC AUTO DIFFon 06-10-2020 BASO # 0.1 103/ul Normal 0.0-0.1 [facility] Comment on above: Performed By: #### C BC #### [facility] [address] [place] [id number] Kinjal Sherine Basophils/100 WBC (Bld) 0.5 % Normal 0.2-2.0 [facility] Comment on above: Performed By: #### C BC #### [facility] [address] [place] [address] Kinjal Sherine EO # 0.2 103/ul Normal 0.0-0.7 [facility] Comment on above: Performed By: #### C BC #### [facility] [address] [place] [address] Kinjal Sherine Eosinophils/100 WBC (Bld) 1.8 % Normal 0.9-7.0 [facility] Comment on above: Performed By: #### C BC #### [facility] [address] [place] [id number] Kinjal Sherine Erythrocyte distribution width (RBC) [Ratio] 13.7 % Normal 11.0-15.0 [facility] Comment on above: Performed By: #### C BC #### [facility] [address] [place], [place] [id number] Kinjal Sherine Hematocrit (Bld) [Volume fraction] 38.2 % Normal 36.0-48.0 [facility] Comment on above: Performed By: #### C BC #### [facility] [address] [place] [id number] Kinjal Sherine Hemoglobin (Bld) [Mass/Vol] 11.9 g/dL Critically low 12.0-16.0 [facility] Comment on above: Performed By: #### C BC #### [facility] [address] [place] [id number] Kinjal Sherine IG # 0.03 10e3/ul Normal 0.00-0.03 [facility] Comment on above: Performed By: #### C BC #### [facility] [address] [place] [address] Kinjal Sherine IG % 0.3 % Normal 0.0-0.5 [facility] Comment on above: Performed By: #### C BC #### [facility] [address] [place] [address] Kinjal Sherine LYMPH # 1.8 103/ul Normal 1.2-3.8 [facility] Comment on above: Performed By: #### C BC #### [facility] [address] [place] [address] Kinjalroverto Basurto Lymphocytes/100 WBC (Bld) 17.4 % Critically low 20.5-60.0 [facility] Comment on above: Performed By: #### C BC #### [facility] [address] [place] [address] Kinjal Sherine MANUAL DIFF REQ NO Normal [facility] Comment on above: Performed By: #### C BC #### [facility] [address] [place] [address] Kinjalroverto Basurto MCH (RBC) [Entitic mass] 27.0 pg Normal 26.7-34.0 [facility] Comment on above: Performed By: #### C BC #### [facility] [address] [place] [address] Kinjalroverto Basurto MCHC (RBC) [Mass/Vol] 31.2 g/dL Normal 29.9-35.2 [facility] Comment on above: Performed By: #### C BC #### [facility] [address] [place] [address] Kinjal Sherine MCV (RBC) [Entitic vol] 86.8 fL Normal 81.0-99.0 [facility] Comment on above: Performed By: #### C BC #### [facility] [address] [place] [address] Kinjal Sherine MONO # 0.3 103/ul Normal 0.3-0.8 [facility] Comment on above: Performed By: #### C BC #### [facility] [address] [place], [place] [address] Kinjal Sherine Monocytes/100 WBC (Bld) 3.2 % Normal 1.7-12.0 [facility] Comment on above: Performed By: #### C BC #### [facility] [address] [place], [place] [address] Kinjal Fosteren NEUT # 7.8 103/ul Critically high 1.4-6.5 [facility] Comment on above: Performed By: #### C BC #### [facility] [address] [place] [address] Kinjal Sherine Neutrophils/100 WBC (Bld) 76.8 % Critically high 43.0-75.0 [facility] Comment on above: Performed By: #### C BC #### [facility] [address] [place] [address] Kinjal Basurto Platelet mean volume (Bld) [Entitic vol] 9.1 fL Critically low 9.5-13.5 [facility] Comment on above: Performed By: #### C BC #### [facility] [address] [place] [address] Kinjal Sherine PLT 350 103/ul Normal 150-450 [facility] Comment on above: Performed By: #### C BC #### [facility] [address] [place] [address] Kinjal Sherine RBC 4.40 106/ul Normal 4.20-5.40 [facility] Comment on above: Performed By: #### C BC #### [facility] [address] [place] [id number] Kinjal Sherine WBC 10.1 103/ul Normal 4.0-11.0 [facility] Comment on above: Performed By: #### C BC #### [facility] [address] [place] [address] CHEST W CONon 06-10-2020 CT CHEST W CON EXAMINATION: CT CHES T W CON HISTORY: CHEST PAIN, UNSPECIFIED COMPARISON: Left clavicle radiographs, today at 1:19 AM. TECHNIQUE: CT examination of the chest following the administration of intravenous contrast. Coronal and sagittal reformations were performed. Dose reduction techniques were achieved by using automated exposure control and/or adjustment of mA and/or kV according to patient size and/or use of iterative reconstruction technique. FINDINGS: There is no axillary or mediastinal thoracic lymphadenopathy. Normal heart size. No pericardial fluid. The aorta is normal caliber. Lungs are clear. No evidence of infiltrate or effusion. No pneumothorax. Displaced fracture of the midshaft of the left clavicle is redemonstrated. The medial fracture fragment is superiorly displaced by 18 mm. Sternoclavicular joint is intact. AC joint is not visualized. No evidence of rib or sternal fracture. No acute findings in the upper abdomen to the extent of limited visualization. Previous gastric bypass suspected. IMPRESSION: 1. Displaced midclavicular shaft fracture on the left. Sternoclavicular joint is intact. 2. No evidence of pulmonary contusion or pleural or pericardial fluid. Electronically authenticated by: ARELI RIVERA Date: 2020-06-10 03:43 Normal [facility] CT CSPINE WO CONon CT CSPINE WO CON EXAMINATION: CT CSPI NE WO CON HISTORY: Pain. COMPARISON: None. TECHNIQUE: CT Cervical spine without IV contrast. Coronal and sagittal reformations were performed. Dose reduction techniques were achieved by using automated exposure control and/or adjustment of mA and/or kV according to patient size and/or use of iterative reconstruction technique. FINDINGS: No acute fracture or subluxation of the cervical spine is seen. The vertebral body heights are preserved. The vertebral elements are in anatomic alignment. The disc spaces are preserved. The prevertebral soft tissues are unremarkable. There does not appear to be any significant spinal canal or neural foraminal stenosis. IMPRESSION: 1. No acute fracture or subluxation of the cervical spine is seen. Electronically authenticated by: Haylie VILLAR Date: 2020-06-10 01:09 Normal [facility] CT HEAD WO CONon 06-10-2020 CT HEAD WO CON NONCONTRAST HEAD CT COMPARISON: None. CLINICAL HISTORY: Trauma. TECHNIQUE: Routine noncontrast images of the brain obtained. CT examination of the head without IV contrast. Dose reduction techniques were achieved by using: automated exposure control and/or adjustment of mA and /or kV according to patient size and/or use of iterative reconstruction technique. FINDINGS: Paranasal sinuses and mastoid air cells are clear. Intraorbital contents are unremarkable. No acute bony abnormality. Intracranially, there is no evidence of hemorrhage, mass effect, or midline shift. Ventricles and cisternal spaces are age appropriate. IMPRESSION: No acute intracranial abnormality. Electronically authenticated by: ARELI RIVERA Date: 2020-06-10 01:01 Normal [facility] DRUG SCREEN RAPID (URINE)on 06-10-2020 AMP Negative Normal NEGATIVE [facility] Comment on above: Performed By: #### E RUR, DRUGRPD #### [facility] [address] [place] [address] Kinjal Sherine BAR Negative Normal NEGATIVE [facility] Comment on above: Performed By: #### E RUR, DRUGRPD #### [facility] [address] [place] [address] [facility] Normal NEGATIVE [facility] Comment on above: Performed By: #### E RUR, DRUGRPD #### [facility] [address] [place] [address] [facility] B[facility] Negative Normal NEGATIVE [facility] Comment on above: Performed By: #### E RUR, DRUGRPD #### [facility] [address] [place] [address] CURTIS Negative Normal NEGATIVE [facility] Comment on above: Performed By: #### E RUR, DRUGRPD #### [facility] [address] [place] [address] CUT-OFFS SEE BELOW Normal [facility] Comment on above: Result Comment: AMP (Amphetamine): 500ng/mL, BAR (Barbituates): 200 ng/mL, BZO (Benzodiazepines): 150 ng/mL, BUP (Buprenorphine): 10 ng/mL, CURTIS (Cocaine): 150 ng/mL, mAMP (Methamphetamine): 500 ng/mL, MTD (Methadone): 200 ng/mL, OPI (Opiates): 100 ng/mL, OXY (Oxycodone): 100 ng/mL, PCP (Phencyclidine): 25 ng/mL, PPX (Propoxyphene): 300 ng/mL, THC (Cannabinoids): 50 ng/mL, TCA (Trycyclic Antidepressants): 300 ng/mL Performed By: #### E RUR, DRUGRPD #### [facility] [address] [place] [address] Kinjal Sherine DRUG CUT HEADER DRUG CLASS TEST SYST EM CUT-OFF CONCENTRATIONS ARE FOLLOWS: Normal [facility] Comment on above: Performed By: #### E RUR, DRUGRPD #### [facility] [address] [place] [address] Kinjal Sherine mAMP Negative Normal NEGATIVE [facility] Comment on above: Performed By: #### E RUR, DRUGRPD #### [facility] [address] [place] [address] Kinjal Sherine MTD Negative Normal NEGATIVE [facility] Comment on above: Performed By: #### E RUR, DRUGRPD #### [facility] [address] [place] [address] Kinjal Sherine OPI Positive Abnormal NEGATIVE [facility] Comment on above: Performed By: #### E RUR, DRUGRPD #### [facility] [address] [place] [address] Kinjal Sherine OXY Negative Normal NEGATIVE [facility] Comment on above: Performed By: #### E RUR, DRUGRPD #### [facility] [address] [place] [address] Kinjal Sherine PCP Negative Normal NEGATIVE [facility] Comment on above: Performed By: #### E RUR, DRUGRPD #### [facility] [address] [place] [address] Kinjal Sherine PPX Negative Normal NEGATIVE [facility] Comment on above: Performed By: #### E RUR, DRUGRPD #### [facility] [address] [place] [address] Kinjal Sherine TCA Negative Normal NEGATIVE [facility] Comment on above: Performed By: #### E RUR, DRUGRPD #### [facility] [address] [place] [address] Kinjal Sherine THC Negative Normal NEGATIVE [facility] Comment on above: Performed By: #### E RUR, DRUGRPD #### [facility] [address] [place] [address] Kinjal Sherine ER URINE PROFILEon 1 Bilirubin Ql (U) Negative Normal NEGATIVE [facility] Comment on above: Performed By: #### Mitchell PETERSEN DRUGRPD #### [facility] [address] [place] [address] Kinjal Sherine Clarity (U) CLEAR Normal CLEAR [facility] Comment on above: Performed By: #### Mitchell PETERSEN DRUGRPD #### [facility] [address] [place] [address] Kinjal Sherine Color (U) LT. YELLOW Normal YELLOW [facility] Comment on above: Performed By: #### Mitchell PETERSEN DRUGRPD #### [facility] [address] [place] [address] Kinjal Sherine ERUAHD A micrscopic examination will be performed if indicated. Normal [facility] Comment on above: Performed By: #### Mitchell PETERSEN DRUGRPD #### [facility] [address] [place] [address] Kinjal Sherine Glucose Ql (U) Negative Normal NEGATIVE [facility] Comment on above: Performed By: #### Mitchell PETERSEN DRUGRPD #### [facility] [address] [place] [address] Kinjal Sherine Hemoglobin Ql (U) Negative Normal NEGATIVE [facility] Comment on above: Performed By: #### Mitchell PETERSEN DRUGRPD #### [facility] [address] [place] [address] Kinjal Sherine Ketones Ql (U) Negative Normal NEGATIVE [facility] Comment on above: Performed By: #### Mitchell PETERSEN DRUGRPD #### [facility] [address] [place] [address] Kinjal Sherine LEUKOCYTES Negative Normal NEGATIVE [facility] Comment on above: Performed By: #### Mitchell PETERSEN DRUGRPD #### [facility] [address] [place] [address] Kinjal Sherine Nitrite Ql (U) Negative Normal NEGATIVE [facility] Comment on above: Performed By: #### Mitchell PETERSEN DRUGRPD #### [facility] [address] [place], [place] [address] Kinjalroverto Basurto pH (U) 7.5 [pH] Normal 5-9 [facility] Comment on above: Performed By: #### Mitchell PETERSEN DRUGRPD #### [facility] [address] [place] [address] Kinjal Basurto SPEC GRAVITY 1.010 Normal 1.005-<=1.02 5 [facility] Comment on above: Performed By: #### Mitchell PETERSEN DRUGRPD #### [facility] [address] [place], [place] [id number] Kinjalroverto Basurto UA PROTEIN Negative Normal NEGATIVE/ TRACE [facility] Comment on above: Performed By: #### Mitchell PETERSEN DRUGRPD #### [facility] [address] [place], [place] [id number] Kinjal Basurto UR MICRO IND NOT INDICATED Normal [facility] Comment on above: Performed By: #### Mitchell PETERSEN DRUGRPD #### [facility] [address] [address] [place], [place] [id number] Kinjal Basurto Urobilinogen Qn (U) 0.2 {Jazmine'U}/dL Normal 0.2 - 1. 0 [facility] Comment on above: Performed By: #### Mitchell PETERSEN DRUGRPD #### [facility] [address] [place], [place] [id number] Kinjal Basurto ETHANOL (BLD ALC)on 06-11-19 21 ALC NOTE NOTE: 80 mg/dl is th e legal limit for a blood alcohol level Normal [facility] Comment on above: Performed By: #### E TH ####[facility] [address] [place] [id number] Sherine Ethanol [Mass/Vol] 200 mg/dL Normal [facility] Comment on above: Performed By: #### E TH ####[facility] [address] [place] [id number] Fosteren PROF 14(COMP METB)on 021 Albumin [Mass/Vol] 3.8 g/dL Normal 3.5-5.0 [facility] Comment on above: Performed By: #### C MP #### [facility] [address] [id number] Kinjal Sherine Albumin/Globulin [Mass ratio] 1.2 {ratio} Normal [facility] Comment on above: Performed By: #### C MP #### [facility] [address] [id number] Kinjal Sherine ALP [Catalytic activity/Vol] 54 U/L Normal 38-126 [facility] Comment on above: Performed By: #### C MP #### [facility] [address] [id number] Kinjal Sherine ALT [Catalytic activity/Vol] 19 U/L Normal 9-52 [facility] Comment on above: Performed By: #### C MP #### [facility] [address] [place] [address] Kinjal Sherine Anion gap [Moles/Vol] 12.2 mmol/L Normal [facility] Comment on above: Performed By: #### C MP #### [facility] [address] [place] [address] Kinjal Sherine AST [Catalytic activity/Vol] 13 U/L Critically low 14-36 [facility] Comment on above: Performed By: #### C MP #### [facility] [address] [place], [place] [phone] Kinjal Sherine Bilirubin [Mass/Vol] 0.3 mg/dL Normal 0.2-1.3 [facility] Comment on above: Performed By: #### C MP #### [facility] [address] [place], [place] [phone] Kinjal Sherine Calcium [Mass/Vol] 8.4 mg/dL Normal 8.4-10.2 [facility] Comment on above: Performed By: #### C MP #### [facility] [address] [place], [place] [phone] Kinjal Sherine Chloride [Moles/Vol] 109 mmol/L Critically high 98-107 [facility] Comment on above: Performed By: #### C MP #### [facility] [address] [address] Kinjal Sherine CO2 [Moles/Vol] 27.5 mmol/L Normal 22.0-30.0 [facility] Comment on above: Performed By: #### C MP #### [facility] [address] [address] Kinjal Sherine Creatinine [Mass/Vol] 0.73 mg/dL Normal 0.52-1.04 [facility] Comment on above: Performed By: #### C MP #### [facility] [address] [address] Kinjal Sherine EGFR-AF TAJIK >60 Normal >=60 [facility] Comment on above: Performed By: #### C MP #### [facility] [address] [place] [address] Kinjal Sherine EGFR-NON AF TAJIK >60 Normal >=60 [facility] Comment on above: Performed By: #### C MP #### [facility] [address] [address] Kinjal Sherine Globulin (S) [Mass/Vol] 3.3 g/dL Normal [facility] Comment on above: Performed By: #### C MP #### [facility] [address] [place] [address] Kinjal Sherine Glucose [Mass/Vol] 85 mg/dL Normal 74-106 [facility] Comment on above: Performed By: #### C MP #### [facility] [address] [place] [address] Kinjal Sherine Potassium [Moles/Vol] 3.7 mmol/L Normal 3.4-5.0 [facility] Comment on above: Performed By: #### C MP #### [facility] [address] [place], [place] [phone] Kinjal Sherine Protein [Mass/Vol] 7.1 g/dL Normal 6.1-8.2 [facility] Comment on above: Performed By: #### C MP #### [facility] [address] [place] [address] Kinjal Sherine Sodium [Moles/Vol] 145 mmol/L Normal 137-145 [facility] Comment on above: Performed By: #### C MP #### [facility] [address] [place], [place] [address] Kinjal Basurto Urea nitrogen [Mass/Vol] 9.0 mg/dL Normal 7.0-17.0 [facility] Comment on above: Performed By: #### C MP #### [facility] [address] [place], [place] [address] Kinjal Basurto Urea nitrogen/Creatinine [Mass ratio] 12.3 mg/mg Normal [facility] Comment on above: Performed By: #### C MP #### [facility] [address] [place], [place] [address] Kinjal Basurto Rapid Covid-19 PCR (CVDRPD)o n 06-10-2020 SARS-CoV-2 (COVID-19) RNA AIDEE+probe Ql (Unsp spec) Not detected Normal NOT DETECTED [facility] Comment on above: Result Comment: This test is not yet approved or cleared by the [place] Food and Drug Administration (FDA). This test was developed by [employer], [place], [place]. The performance characteristics of this test were validated by [facility]. The results are not intended to be used as the sole means for clinical diagnosis or patient management decisions. The [facility] is authorized under Clinical Laboratory Improvement Amendments (CLIA) to perform high- complexity testing. When diagnostic testing is negative, the possibility of a false negative should be considered in the context of a patient's recent exposures and the presence of clinical signs and symptoms consistent with SARS-CoV-2. Performed By: #### C VDRPD ####[facility] [address] [place], [place] [address]PhduamKinjal Basurto XR CLAVICLE LTon 06-10-2020 XR CLAVICLE LT EXAM: XR CLAVICLE LT HISTORY: Pain. COMPARISON: None. TECHNIQUE: 2 views of the left clavicle were obtained. FINDINGS: There is a completely caudally displaced fracture of the mid left clavicle with up to approximately 3.0 cm of fracture fragment overriding. The acromioclavicular and coracoclavicular distances are preserved. The imaged lungs are clear. IMPRESSION: 1. Completely caudally displaced fracture of the mid left clavicle with up to 3 cm of fracture fragment overriding. Electronically authenticated by: Haylie VILLAR Date: 2020-06-10 01:50 Normal [facility] XR SHOULDER LT 2V or >on XR SHOULDER LT 2V or > EXAM: XR SHOULDER LT 2V or > HISTORY: Pain COMPARISON: None. TECHNIQUE: Left shoulder, 3 views. FINDINGS: Significantly displaced left midclavicular fracture. Acromioclavicular alignment appears preserved. No acute fracture or dislocation of the left shoulder. IMPRESSION: Significantly displaced left mid clavicular fracture without disruption of the acromioclavicular alignment. Otherwise no acute fracture or dislocation of the left glenohumeral joint. Electronically authenticated by: BENNY ARMSTRONG Date: 2020-06-10 01:45 Normal [facility] Cult, Bloodon 2018 Cult, Blood Specimen Description .BLOOD Special Requests RT HAND Culture NO GROWTH 6 DAYS Report Status FINAL 2018 [facility] Comment on above: Performed By: #### B CUL2 ####[facility] [address] [place] [address] [facility] Director: Reed Mckeon MD [facility],Bloodon 2018 Cult,Blood Specimen Description .BLOOD Special Requests L ARM 10CC Culture NO GROWTH 6 DAYS Report Status FINAL 2018 [facility] Comment on above: Performed By: #### B C ####[facility] [address] [place] [address] Lab Director: Reed Mckeon MD Basic Metab w/rfx MGon 04-16 (cont.) [facility] Comment on above: Result Comment: Aver age GFR for 20-29 years old: 116 mL/min/1.73sq m Chronic Kidney Disease: <60 mL/min/1.73sq m Kidney failure: <15 mL/min/1.73sq m eGFR calculated using average adult body mass. Additional eGFR calculator available at: http://www.Bolt.io.eBuilder/multiple_crcl_2011.htm Performed By: #### C BC, BMPX ####[facility] [address] [place], [place] [phone] Director: Reed Mckeon MD Anion gap molar conc 13 mmol/L Normal 9-17 [facility] Comment on above: Performed By: #### C BC, BMPX ####[facility] [address] [place], [place] [phone])[phone] Director: Reed Mckeon MD Calcium mass conc 8.7 mg/dL Normal 8.6-10.4 [facility] Comment on above: Performed By: #### C BC, BMPX ####[facility] [address] [place] [address] Lab Director: Reed Mckeon MD Chloride molar conc 110 mmol/L High 98-107 [facility] Comment on above: Performed By: #### C BC, BMPX ####[facility] [address] [place], [place] [phone] Director: Reed Mckeon MD CO2 molar conc 18 mmol/L Low 20-31 [facility] Comment on above: Performed By: #### C BC, BMPX ####[facility] [address] [place], [place] [phone] Director: Reed Mckeon MD Creatinine mass conc 0.49 mg/dL Low 0.50-0.90 [facility] Comment on above: Performed By: #### C BC, BMPX ####[facility] [address] [place], [place] [phone] Director: Reed Mckeon MD GFR, Amer >60 Normal >60 [facility] Comment on above: Performed By: #### C BC, BMPX ####[facility] [address] [place], [place] [phone])[phone] Director: Reed Mckeon MD GFR,non Amer >60 Normal >60 [facility] Comment on above: Performed By: #### C BC, BMPX ####[facility] [address] [place], [place] [phone] Director: Reed Mckeon MD Glucose mass conc 74 mg/dL Normal 70-99 [facility] Comment on above: Performed By: #### C BC, BMPX ####[facility] [address] [place], [place] [phone])[phone] Director: Reed Mckeon MD Potassium molar conc 4.2 mmol/L Normal 3.7-5.3 [facility] Comment on above: Performed By: #### C BC, BMPX ####[facility] [address] [place], [place] [phone] Director: Reed Mckeon MD Sodium molar conc 141 mmol/L Normal 135-144 [facility] Comment on above: Performed By: #### C BC, BMPX ####[facility] [address] [place], [place] [phone] Director: Reed Mckeon MD Urea nitrogen mass conc 6 mg/dL Normal 6-20 [facility] Comment on above: Performed By: #### C BC, BMPX ####[facility] [address] [place], [place] [phone])[phone] Director: Reed Mckeon MD BUN/CRE Ratio NOT REPORTED Normal 9-20 [facility] Comment on above: Performed By: #### C BC, BMPX ####[facility] [address] [place], [place] [phone])[phone] Director: Reed Mckeon MD Staging: NOT REPORTED Normal [facility] Comment on above: Performed By: #### C BC, BMPX ####[facility] [address] [place], [place] [phone])[phone] Director: Reed Mckeon MD CBCon 04-16-2018 Erythrocyte distribution width Ratio (RBC) 12.9 % Normal 11.8-14.4 [facility] Comment on above: Performed By: #### C BC, BMPX ####[address] [phone])[phone] Director: Reed Mckeon MD Hematocrit Volume Fraction (Bld) 33.9 % Low 36.3-47.1 [facility] Comment on above: Performed By: #### C BC, BMPX ####[address] [phone])[phone] Director: Reed Mckeon MD Hemoglobin mass conc (Bld) 10.6 g/dL Low 11.9-15.1 [facility] Comment on above: Performed By: #### C BC, BMPX ####[address] [phone] Director: Reed Mckeon MD MCH Entitic mass (RBC) 28.3 pg Normal 25.2-33.5 [facility] Comment on above: Performed By: #### C BC, BMPX ####[address] [address] Lab Director: Reed Mckeon MD MCHC mass conc (RBC) 31.3 g/dL Normal 28.4-34.8 [facility] Comment on above: Performed By: #### C BC, BMPX ####[address] [phone])[phone] Director: Reed Mckeon MD MCV Entitic volume (RBC) 90.6 fL Normal 82.6-102.9 [facility] Comment on above: Performed By: #### C BC, BMPX ####[address] [phone])[phone] Director: Reed Mckeon MD NRBC Automated 0.0 per 100 WBC Normal 0.0 [facility] Comment on above: Performed By: #### C BC, BMPX ####[facility] [address] [place], [place] [phone] Director: Reed Mckeon MD Platelet mean volume Entitic volume (Bld) 9.8 fL Normal 8.1-13.5 [facility] Comment on above: Performed By: #### C BC, BMPX ####[facility] [address] [place], [place] [phone] Director: Reed Mckeon MD Platelets #/vol (Bld) 257 10*3/uL Normal 138-453 [facility] Comment on above: Performed By: #### C BC, BMPX ####[facility] [address] [place] [address] Lab Director: Reed Mckeon MD RBC #/vol (Bld) 3.74 10*6/uL Low 3.95-5.11 [facility] Comment on above: Performed By: #### C BC, BMPX ####[facility] [address] [place], [place] [phone])[phone] Director: Reed Mckeon MD WBC #/vol (Bld) 5.8 10*3/uL Normal 3.5-11.3 [facility] Comment on above: Performed By: #### C BC, BMPX ####[facility] [address] [place], [place] [phone] Director: Reed Mckeon MD Cult,Respiratoryon 9 Cult,Respiratory Specimen Description .EXPECTORATED SPUTUM Special Requests NOT REPORTED Direct Exam >10 EPITHELIAL CELLS/LPF: SPECIMEN IS CONTAMINATED WITH ORAL PHARYNGEAL YOGESH AND IS UNACCEPTABLE FOR BACTERIAL CULTURE. PLEASE SUBMIT ANOTHER SPECIMEN. EVERETTE Mathews NOTIFIED Culture NOT REPORTED Report Status FINAL 04/16/2018 Normal [facility] Comment on above: Performed By: #### R ESPC ####[facility] [address] [place], [place] [id number])[phone] Director: Reed Mckeon MD Troponinon 04-16-2018 Troponin I.cardiac mass conc ng/mL Normal 0-14 [facility] Comment on above: Result Comment: High Sensitivity Troponin values cannot be compared with other Troponin methodologies. Patients with high levels of Biotin oral intake (i.e >5mg/day) may have falsely decreased Troponin levels. Samples collected within 8 hours of biotin intake may require additional information for diagnosis. Performed By: #### T ROPI ####[address] [place], [place] [id number] Lab Director: Reed Mckeon MD Gram Stainon 04-15-2018 Microscopic observation Gram stain Nom (Unsp spec) Specimen Description .EXPECTORATED SPUTUM Special Requests NOT REPORTED Direct Exam DUPLICATE ORDER Report Status FINAL 04/15/2018 Normal [facility] Comment on above: Performed By: #### P PPVS #### [address] [id number] HCG Screen, Bloodon 04-16-19 19 HCG Qn Negative Normal NEG [facility] Comment on above: Result Comment: Spec imens with hCG levels near the threshold of the test (25 mIU/mL) may give a negative or indeterminate result. In such cases, another test should be performed with a new specimen in 48-72 hours. If early is suspected clinically in this setting, correlation with quantitative serum b-hCG level is suggested. [employer] has confirmed the use of plasma for this test. This has not been cleared or approved by the U.S. Food and Drug Administration. The FDA has determined that such clearance is not necessary. Performed By: #### P PPVS #### [facility] [address] [place], [place] [phone] Legionella Ag, Uron 04-16-19 19 Legionella Ag, Ur Specimen Description .URINE Special Requests NOT REPORTED Direct Exam Urine negative for L. pneumophilia serogroup 1 antigen. Infection due to Legionella cannot be ruled out since (1) other L. pneumophilia serogroups and other Legionella species may cause disease, (2) antigen may not be present in early infection (<3 days). and (3) the level of antigen present in the urine may be below the detectable levels of this test. Report Status FINAL 04/15/2018 Normal [facility] Comment on above: Performed By: #### U LAG ####[address] [address] Lab Director: Reed Mckeon MD Resp Viral Panelon 9 Adenovirus Not Detected Normal [facility] Comment on above: Performed By: #### P PPVS #### [address] [address] Bordetella pertussis Not Detected Normal [facility] Comment on above: Performed By: #### P PPVS #### [address] [address] Chlamyd.pneumoniae Not Detected Normal [facility] Comment on above: Performed By: #### P PPVS #### [address] [address] Coronavirus 229E Not Detected Normal [facility] Comment on above: Performed By: #### P PPVS #### [address] [address] Coronavirus HKU1 Not Detected Normal [facility] Comment on above: Performed By: #### P PPVS #### [address] [address] Coronavirus NL63 Not Detected Normal [facility] Comment on above: Performed By: #### P PPVS #### [address] [address] Coronavirus OC43 Not Detected Normal [facility] Comment on above: Performed By: #### P PPVS #### [address] [address] Human Metapneumo Not Detected Normal [facility] Comment on above: Performed By: #### P PPVS #### [address] [address] Influenza A Not Detected Normal [facility] Comment on above: Performed By: #### P PPVS #### [address] [address] Influenza B Not Detected Normal [facility] Comment on above: Performed By: #### P PPVS #### [address] [address] Mycoplas.pneumoniae Not Detected Normal [facility] Comment on above: Result Comment: Perf ormed by multiplexed nucleic acid assay. Performed By: #### P PPVS #### [address] [address] Parainfluenza 1 Not Detected Normal [facility] Comment on above: Performed By: #### P PPVS #### [address] [address] Parainfluenza 2 Not Detected Normal [facility] Comment on above: Performed By: #### P PPVS #### [address] [address] Parainfluenza 3 Not Detected Normal [facility] Comment on above: Performed By: #### P PPVS #### [address] [address] Parainfluenza 4 Not Detected Normal [facility] Comment on above: Performed By: #### P PPVS #### [address] [address] Resp Syncytial Virus Not Detected [facility] on [facility]: Performed By: #### P PPVS #### [address] [address] Rhino/Enterovirus Not Detected Normal [facility] Comment on above: Performed By: #### P PPVS #### [address] [address] Influenza A H1 NOT REPORTED Normal [facility] Comment on above: Performed By: #### P PPVS #### [address] [address] Influenza A H1-2009 NOT REPORTED Normal [facility] Comment on above: Performed By: #### P PPVS #### [address] [address] Influenza A H3 NOT REPORTED Normal [facility] Comment on above: Performed By: #### P PPVS #### [address] [address] Source: .NASOPHARYNGEAL SWAB Normal [facility] Comment on above: Performed By: #### P PPVS #### [address] [address] Strep pneum Ag,CSF/Uron 03-0 Strep pneum Ag,CSF/Ur Specimen Descripti on .CLEAN CATCH URINE Special Requests NOT REPORTED Direct Exam NEGATIVE: Strep pneumoniae antigen not detected Report Status FINAL 04/15/2018 Normal [facility] Comment on above: Performed By: #### S PAG ####[address] [phone])[phone] Director: Reed Mckeon MD Troponinon 04-15-2018 Troponin I.cardiac mass conc NOT REPORTED Normal <0.03 [facility] Comment on above: Performed By: #### T ROPI ####[address] [place] [address] Lab Director: Reed Mckeon MD Troponin I.cardiac mass conc ng/mL Normal 0-14 [facility] Comment on above: Result Comment: High Sensitivity Troponin values cannot be compared with other Troponin methodologies. Patients with high levels of Biotin oral intake (i.e >5mg/day) may have falsely decreased Troponin levels. Samples collected within 8 hours of biotin intake may require additional information for diagnosis. Performed By: #### P PPVS #### [facility] [employer] [address] [place] [address] Troponin I.cardiac mass conc NOT REPORTED Normal <0.03 [facility] Comment on above: Performed By: #### P PPVS #### [facility] [employer] [address] [place] [address] XR CHEST PORTABLEon 04-16-19 XR CHEST PORTABLE EXAMINATION: SINGLE XRAY VIEW OF THE CHEST 04/15/2018 3:19 pm COMPARISON: 04/02/2018 HISTORY: ORDERING SYSTEM PROVIDED HISTORY[facility]. POD#3 s/p lap sleeve gastrectomy. TECHNOLOGIST PROVIDED HISTORY: transferred from [facility] due to PNA. POD#3 s/p lap sleeve gastrectomy. FINDINGS: Low lung volume examination. Bibasilar airspace opacities are identified, conjoined above hypoaeration. No definite pleural effusion or pneumothorax. Osseous structures and soft tissues are grossly intact. IMPRESSION: Bibasilar airspace opacities, accentuated by hypoaeration. Repeat study in full inspiration suggested when clinically feasible. Interpreted by: Brando Agustin MD Signed by: Brando Agustin MD 04/15/18 Final result Normal [facility] FL ESOPHAGRAMon 04-14-2018 FL ESOPHAGRAM EXAMINATION: SINGLE CONTRAST ESOPHAGRAM, 04/14/2018 8:59 am TECHNIQUE: Single contrast esophagram was performed with Omnipaque 240 oral contrast. FLUOROSCOPY DOSE AND TYPE OR TIME AND EXPOSURES: 19.303 Gy cm, 1 minute of fluoroscopy time. COMPARISON: Single contrast esophagram from 04/13/2018. HISTORY: ORDERING SYSTEM PROVIDED HISTORY: Sleeve gastrectomy, please evaluate for patency, persistent dysphagia TECHNOLOGIST PROVIDED HISTORY: Sleeve gastrectomy, please evaluate for patency, persistent dysphagia. 22-year-old female with recent sleeve gastrectomy; please evaluate for patency; persistent dysphagia and burning sensation. FINDINGS: Fluoroscopic research laboratory technician images were obtained of the upper abdomen prior to the ingestion of contrast. Drainage catheter projects over the left upper quadrant. 30 mL of Omnipaque 240 oral contrast was divided into approximately four sips. The esophagus and upper abdomen were visualized under fluoroscopy as the patient drank the oral contrast. Contrast migrated through the GE junction into the postoperative region and into the proximal small bowel. No evidence of postoperative leak or extravasation. Mild reflux of contrast was noted in the distal esophagus. IMPRESSION: 1. Single contrast esophagram which demonstrates proper migration of contrast through the GE junction and postoperative region into the proximal small bowel. No evidence for postoperative leak or contrast extravasation. 2. Mild reflux of contrast in the distal esophagus. The findings were sent to the Radiology Results Communication Center at 9:56 am on 04/14/2018 to be communicated to a licensed caregiver. Interpreted by: Steve Topete MD Signed by: Steve Topete MD 04/14/18 Final result Normal [facility] Basic Metabolic Profon 04-13 (cont.) Normal [facility] Comment on above: Result Comment: Aver age GFR for 20-29 years old: 116 mL/min/1.73sq m Chronic Kidney Disease: <60 mL/min/1.73sq m Kidney failure: <15 mL/min/1.73sq m eGFR calculated using average adult body mass. Additional eGFR calculator available at: [email or web address] Performed By: #### P PPVS #### [facility] [address] [place], [place] [id number] Anion gap molar conc 11 mmol/L Normal 9-17 [facility] Comment on above: Performed By: #### P PPVS #### [facility] [address] [place] [address] Calcium mass conc 8.8 mg/dL Normal 8.6-10.4 [facility] Comment on above: Performed By: #### P PPVS #### [facility] [place] [address] Chloride molar conc 104 mmol/L Normal 98-107 [facility] Comment on above: Performed By: #### P PPVS #### [facility] [address] [place] [address] CO2 molar conc 24 mmol/L Normal 20-31 [facility] Comment on above: Performed By: #### P PPVS #### [facility] [address] [place] [address] Creatinine mass conc 0.68 mg/dL Normal 0.50-0.90 [facility] Comment on above: Performed By: #### P PPVS #### [facility] [address] [place] [address] GFR, Amer >60 Normal >60 [facility] Comment on above: Performed By: #### P PPVS #### [facility] [address] [place] [address] GFR,non Amer >60 Normal >60 [facility] Comment on above: Performed By: #### P PPVS #### [facility] [address] [place] [address] Glucose mass conc 90 mg/dL Normal 70-99 [facility] Comment on above: Performed By: #### P PPVS #### [facility] [address] [place] [address] Potassium molar conc 4.4 mmol/L Normal 3.7-5.3 [facility] Comment on above: Performed By: #### P PPVS #### [facility] [address] [place] [address] Sodium molar conc 139 mmol/L Normal 135-144 [facility] Comment on above: Performed By: #### P PPVS #### [address] [address] Urea nitrogen mass conc 5 mg/dL Low 6-20 [facility] Comment on above: Performed By: #### P PPVS #### [address] [address] BUN/CRE Ratio NOT REPORTED Normal 9-20 [facility] Comment on above: Performed By: #### P PPVS #### [address] [address] Staging: NOT REPORTED Normal [facility] Comment on above: Performed By: #### P PPVS #### [address] [address] CBCon 04-13-2018 Erythrocyte distribution width Ratio (RBC) 12.9 % Normal 11.8-14.4 [facility] Comment on above: Performed By: #### P PPVS #### [address] [address] Hematocrit Volume Fraction (Bld) 36.8 % Normal 36.3-47.1 [facility] Comment on above: Performed By: #### P PPVS #### [address] [address] Hemoglobin mass conc (Bld) 11.7 g/dL Low 11.9-15.1 [facility] Comment on above: Performed By: #### P PPVS #### [address] [address] MCH Entitic mass (RBC) 28.3 pg Normal 25.2-33.5 [facility] Comment on above: Performed By: #### P PPVS #### [address] [address] MCHC mass conc (RBC) 31.8 g/dL Normal 28.4-34.8 [facility] Comment on above: Performed By: #### P PPVS #### [address] [address] MCV Entitic volume (RBC) 88.9 fL Normal 82.6-102.9 [facility] Comment on above: Performed By: #### P PPVS #### [address] [address] NRBC Automated 0.0 per 100 WBC Normal 0.0 [facility] Comment on above: Performed By: #### P PPVS #### [address] [address] Platelet mean volume Entitic volume (Bld) 10.1 fL Normal 8.1-13.5 [facility] Comment on above: Performed By: #### P PPVS #### [address] [address] Platelets #/vol (Bld) 306 10*3/uL Normal 138-453 [facility] Comment on above: Performed By: #### P PPVS #### [address] [address] RBC #/vol (Bld) 4.14 10*6/uL Normal 3.95-5.11 [facility] Comment on above: Performed By: #### P PPVS #### [address] [address] WBC #/vol (Bld) 8.1 10*3/uL Normal 3.5-11.3 [facility] Comment on above: Performed By: #### P PPVS #### [address] [address] FL ESOPHAGRAMon 04-13-2018 FL ESOPHAGRAM EXAMINATION: SINGLE CONTRAST ESOPHAGRAM 04/13/2018 HISTORY: ORDERING SYSTEM PROVIDED HISTORY: sleeve TECHNOLOGIST PROVIDED HISTORY: sleeve COMPARISON: None. TECHNIQUE: Multiple single contrast images of the esophagus and gastroesophageal junction were obtained following the oral administration of water soluble contrast FLUOROSCOPY DOSE AND TYPE OR TIME AND EXPOSURES: Time: 1.8 minute Dose: 13.002 Gy-cm2 Exposures/Images: 12 FINDINGS: Single-contrast images of the esophagus were obtained and show normal course and caliber of the esophagus. There is no evidence of leak at the GE junction. Postoperative changes from sleeve gastrectomy are evident. There is no evidence of contrast extravasation. Opacified loops of small bowel are grossly unremarkable. IMPRESSION: No evidence of leak status post sleeve gastrectomy. Interpreted by: Jordan Mejia MD Signed by: Jordan Mejia MD 04/13/18 Final result Normal [facility] Basic Metabolic Profon 04-12 (cont.) Normal [facility] Comment on above: Result Comment: Aver age GFR for 20-29 years old: 116 mL/min/1.73sq m Chronic Kidney Disease: <60 mL/min/1.73sq m Kidney failure: <15 mL/min/1.73sq m eGFR calculated using average adult body mass. Additional eGFR calculator available at: [email or web address]/multiple_crcl_2012.htm Performed By: #### C SARWAT, BMP #### [facility] [employer] [address] [place] [address] [employer]: Reed Mckeon MD Anion gap molar conc 16 mmol/L Normal 9-17 [facility] Comment on above: Performed By: #### C SARWAT, BMP #### [facility] [address] [place] [address] [phone] [employer]: Reed Mckeon MD Calcium mass conc 8.9 mg/dL Normal 8.6-10.4 [facility] Comment on above: Performed By: #### Doretha FAM, BMP #### [facility] [address] [place] [address] [phone] [employer]: Reed Mckeon MD Chloride molar conc 108 mmol/L High 98-107 [facility] Comment on above: Performed By: #### C BC, BMP #### [facility] [address] [place] [address] Contractor [employer]: Reed Mckeon MD CO2 molar conc 19 mmol/L Low 20-31 [facility] Comment on above: Performed By: #### C BC, BMP #### [facility] [address] [place] [address] [employer]: Reed Mckeon MD Creatinine mass conc 0.62 mg/dL Normal 0.50-0.90 [facility] Comment on above: Performed By: #### C BC, BMP #### [facility] [address] [place] [address] [employer]: Reed Mckeon MD GFR, Amer >60 Normal >60 [facility] Comment on above: Performed By: #### C BC, BMP #### [facility] [employer] [address] [place] [address] [employer]: Reed Mckeon MD GFR,non Amer >60 Normal >60 [facility] Comment on above: Performed By: #### C BC, BMP #### [facility] [employer] [address] [place] [address] [employer]: Reed Mckeon MD Glucose mass conc 124 mg/dL High 70-99 [facility] Comment on above: Performed By: #### C BC, BMP #### [facility] [address] [place] [address] [employer]: Reed Mckeon MD Potassium molar conc 4.2 mmol/L Normal 3.7-5.3 [facility] Comment on above: Performed By: #### C BC, BMP #### [facility] [employer] [address] [place] [address] [employer]: Reed Mckeon MD Sodium molar conc 143 mmol/L Normal 135-144 [facility] Comment on above: Performed By: #### C BC, BMP #### [facility] [employer] [address] [place] [address] [employer]: Reed Mckeon MD Urea nitrogen mass conc 8 mg/dL Normal 6-20 [facility] Comment on above: Performed By: #### C BC, BMP #### [address] [address] [employer]: Reed Mckeon MD BUN/CRE Ratio NOT REPORTED Normal 9-20 [facility] Comment on above: Performed By: #### C BC, BMP #### [facility] [employer] [address] [place] [address] [employer]: Reed Mckeon MD Staging: NOT REPORTED Normal [facility] Comment on above: Performed By: #### C BC, BMP #### [address] [address] [employer]: Reed Mckeon MD CBCon 04-12-2018 Erythrocyte distribution width Ratio (RBC) 12.6 % Normal 11.8-14.4 [facility] Comment on above: Performed By: #### C BC, BMP #### [facility] [employer] [address] [place] [address] [employer]: Reed Mckeon MD Hematocrit Volume Fraction (Bld) 44.2 % Normal 36.3-47.1 [facility] Comment on above: Performed By: #### C BC, BMP #### [facility] [employer] [address] [place] [address] [employer]: Reed Mckeon MD Hemoglobin mass conc (Bld) 13.8 g/dL Normal 11.9-15.1 [facility] Comment on above: Performed By: #### C BC, BMP #### [facility] [employer] [address] [place] [address] [employer]: Reed Mckeon MD MCH Entitic mass (RBC) 28.4 pg Normal 25.2-33.5 [facility] Comment on above: Performed By: #### C BC, BMP #### [address] [address] [employer]: Reed Mckeon MD MCHC mass conc (RBC) 31.2 g/dL Normal 28.4-34.8 [facility] Comment on above: Performed By: #### C BC, BMP #### [address] [address] [employer]: Reed Mckeon MD MCV Entitic volume (RBC) 90.9 fL Normal 82.6-102.9 [facility] Comment on above: Performed By: #### C BC, BMP #### [address] [address] [employer]: Reed Mckeon MD NRBC Automated 0.0 per 100 WBC Normal 0.0 [facility] Comment on above: Performed By: #### C BC, BMP #### [address] [address] [employer]: Reed Mckeon MD Platelet mean volume Entitic volume (Bld) 10.2 fL Normal 8.1-13.5 [facility] Comment on above: Performed By: #### C BC, BMP #### [address] [address] [employer]: Reed Mckeon MD Platelets #/vol (Bld) 299 10*3/uL Normal 138-453 [facility] Comment on above: Performed By: #### C BC, BMP #### [address] [address] [employer]: Reed Mckeon MD RBC #/vol (Bld) 4.86 10*6/uL Normal 3.95-5.11 [facility] Comment on above: Performed By: #### C BC, BMP #### [facility] [address] [place] [address] [phone] [employer]: Reed Mckeon MD WBC #/vol (Bld) 18.0 10*3/uL High 3.5-11.3 [facility] Comment on above: Performed By: #### C BC, BMP #### [facility] [address] [place] [address] [phone] [employer]: Reed Mckeon MD Surgical Pathologyon 019 Surgical Pathology (NOTE) [id number] [facility] CONSULTING PATHOLOGISTS [facility] ANATOMIC PATHOLOGY [address] [place] [phone] SURGICAL PATHOLOGY CONSULTATION Patient Name: ANTOINETTE RECIO [facility] Rec: [id number] Path Number: [id number] Collected: 04/12/2018 Received: 04/12/2018 Reported: 04/13/2018 13:37 -- Diagnosis -- Stomach, segmental resection: No histologic abnormality. Quincy Aayla Electronically Signed Out rdd/04/13/2018 Clinical Information Pre-op Diagnosis: MORBID OBESITY, HYPERTENSION, GERD Operative Findings: GASTRIC REMNANT Operation Performed: LAPAROSCOPIC SLEEVE GASTRECTOMY, LIVER BIOPSY, EGD Source of Specimen 1: GASTRIC REMNANT Gross Description ANTOINETTE RECIO, GASTRIC REMNANT 18.5 x 6.3 x 4.0 cm portion of stomach with a staple line that runs along its length. The serosa is pink-winchester and the mucosa is pink-red with no areas of granularity or masses. Pit Recorder sections 1cs. tm Microscopic Description The gastric mucosa shows intact architecture and no active or chronic inflammation. There is no histological evidence for Helicobacter. There is no intestinal metaplasia or dysplasia. The submucosa and muscularis propria show no histologic abnormality. Normal [facility] Comment on above: Performed By: #### P PPVS #### [facility] [address] [place] [address] Nicotineon 04-08-2018 [id number] <2 Normal [facility] Comment on above: Performed By: #### C BC, PT, PTT, BMP #### [facility] [address] [place] [address] [employer]or [employer]: Reed Mckeon MD #### ANICOT #### [facility] [address] [place], [place] [id number] [employer]or [employer]: Eduin Alvarez MD Cotinine <2 Normal [facility] Comment on above: Performed By: #### C BC, PT, PTT, BMP #### [facility] [address] [place] [address] [employer]: Reed Mckeon MD #### ANICOT #### [facility] [address] [place] [address] [employer]or [employer]: Eduin Alvarez MD Nicotine <2 Normal [facility] Comment on above: Result Comment: (NOT E) Consistent with abstinence from nicotine-containing products for at least 1 week. INTERPRETIVE INFORMATION: Nicotine and Metabolites, Serum or Plasma, Quantitative Methodology: Quantitative Liquid Chromatography-Tandem Mass Spectrometry Positive cutoff: 2 ng/mL For medical purposes only; not valid for forensic use. This test is designed to evaluate recent use of nicotine-containing products. Passive and active exposure cannot be discriminated definitively, although a cutoff of 10 ng/mL cotinine is frequently used for surgery qualification purposes. For smoking cessation programs or compliance testing, the absence of expected drug(s) and/or drug metabolite(s) may indicate non-compliance, inappropriate timing of specimen collection relative to drug administration, poor drug absorption, or limitations of testing. This test cannot distinguish between use of tobacco and purified nicotine products. The concentration value must be greater than or equal to the cutoff to be reported as positive. Test developed and characteristics determined by [facility]. See Compliance Statement B: [employer] Performed by [facility], [address] [place] [id number] [email or web address], Eduin Alvarez MD, Lab. Director Performed By: #### C BC, PT, PTT, BMP #### [facility] [address] [place] [address] [employer]: Reed Mckeon MD #### ANICOT #### [facility] [address] [place] [address] [employer]or [employer]: Eduin Alvarez MD APTTon 04-02-2018 aPTT Coag time (Bld) 24.7 s Normal 20.5-30.5 [facility] Comment on above: Performed By: #### C BC, PT, PTT, BMP #### [facility] [address] [place] [address] [employer]: Reed Mckeon MD #### ANICOT #### [facility] [address] [place] [address] Contractor [employer]: Eduin Alvarez MD Basic Metabolic Profon 04-02 (cont.) Normal [facility] Comment on above: Result Comment: Aver age GFR for 20-29 years old: 116 mL/min/1.73sq m Chronic Kidney Disease: <60 mL/min/1.73sq m Kidney failure: <15 mL/min/1.73sq m eGFR calculated using average adult body mass. Additional eGFR calculator available at: http://[email or web address].[email or web address]/multiple_crcl_2012.htm Performed By: #### C BC, PT, PTT, BMP #### [address] [address] [employer]: Reed Mckeon MD #### ANICOT #### [facility] [address] [place] [address] [employer]or [employer]: Eduin Alvarez MD Anion gap molar conc 15 mmol/L Normal 9-17 [facility] Comment on above: Performed By: #### C BC, PT, PTT, BMP #### [facility] [address] [place] [address] [employer]: Reed Mckeon MD #### ANICOT #### [facility] [address] [place] [address] Contractor [employer]: Eduin Alvarez MD Calcium mass conc 9.6 mg/dL Normal 8.6-10.4 [facility] Comment on above: Performed By: #### C BC, PT, PTT, BMP #### [address] [address] [employer]: Reed Mckeon MD #### ANICOT #### [facility] [address] [place] [address] [employer]or [employer]: Eduin Alvarez MD Chloride molar conc 102 mmol/L Normal 98-107 [facility] Comment on above: Performed By: #### C BC, PT, PTT, BMP #### [address] [address] [employer]: Reed Mckeon MD #### ANICOT #### [facility] [address] [place] [address] [employer]or [employer]: Eduin Alvarez MD CO2 molar conc 23 mmol/L Normal 20-31 [facility] Comment on above: Performed By: #### C BC, PT, PTT, BMP #### [address] [address] [employer]: Reed Mckeon MD #### ANICOT #### [facility] [address] [place], [place] [id number] [employer]or [employer]: Eduin Alvarez MD Creatinine mass conc 0.62 mg/dL Normal 0.50-0.90 [facility] Comment on above: Performed By: #### C BC, PT, PTT, BMP #### [address] [address] [employer]: Reed Mckeon MD #### ANICOT #### [facility] [address] [place] [address] [employer]or [employer]: Eduin Alvarez MD GFR, Amer >60 Normal >60 [facility] Comment on above: Performed By: #### C BC, PT, PTT, BMP #### [address] [address] [employer]: Reed Mckeon MD #### ANICOT #### [facility] [address] [place], [place] [id number] [employer]or [employer]: Eduin Alvarez MD GFR,non Amer >60 Normal >60 [facility] Comment on above: Performed By: #### C BC, PT, PTT, BMP #### [address] [address] [employer]: Reed Mckeon MD #### ANICOT #### [facility] [address] [place], [place] [id number] [employer]or [employer]: Eduin Alvarez MD Glucose mass conc 86 mg/dL Normal 70-99 [facility] Comment on above: Performed By: #### C BC, PT, PTT, BMP #### [address] [address] Contractor [employer]: Reed Mckeon MD #### ANICOT #### [facility] [address] [place], [place] [id number] [employer]or [employer]: Eduin Alvarez MD Potassium molar conc 4.2 mmol/L Normal 3.7-5.3 [facility] Comment on above: Performed By: #### C BC, PT, PTT, BMP #### [address] [address] [employer]or [employer]: Reed Mckeon MD #### ANICOT #### [facility] [address] [place], [place] [id number] Contractor [employer]: Eduin Alvarez MD Sodium molar conc 140 mmol/L Normal 135-144 [facility] Comment on above: Performed By: #### C BC, PT, PTT, BMP #### [place] [address] [place] [address] [employer]or [employer]: Reed Mckeon MD #### ANICOT #### [facility] [address] [place] [address] [employer]or [employer]: Eduin Alvarez MD Urea nitrogen mass conc 15 mg/dL Normal 6-20 [facility] Comment on above: Performed By: #### C BC, PT, PTT, BMP #### [address] [address] Contractor [employer]: Reed Mckeon MD #### ANICOT #### [facility] [address] [place], [place] [id number] [employer]or [employer]: Eduin Alvarez MD BUN/CRE Ratio NOT REPORTED Normal 9-20 [facility] Comment on above: Performed By: #### C BC, PT, PTT, BMP #### [address] [address] [employer]or [employer]: Reed Mckeon MD #### ANICOT #### [facility] [address] [place], [place] [id number] Contractor [employer]: Eduin Alvarez MD Staging: NOT REPORTED Normal [facility] Comment on above: Performed By: #### C BC, PT, PTT, BMP #### [facility] [address] [place] [address] [employer]: Reed Mckeon MD #### ANICOT #### [facility] [address] [place] [address] Contractor [employer]: Eduin Alvarez MD CBCon 04-02-2018 Erythrocyte distribution width Ratio (RBC) 12.0 % Normal 11.8-14.4 [facility] Comment on above: Performed By: #### C BC, PT, PTT, BMP #### [facility] [employer] [address] [place] [phone] [employer]: Reed Mckeon MD #### ANICOT #### [facility] [address] [place] [address] [employer]: Eduin Alvarez MD Hematocrit Volume Fraction (Bld) 41.3 % Normal 36.3-47.1 [facility] Comment on above: Performed By: #### C BC, PT, PTT, BMP #### [address] [address] [employer]: Reed Mckeon MD #### ANICOT #### [address] [address] [employer]: Eduin Alvarez MD Hemoglobin mass conc (Bld) 13.7 g/dL Normal 11.9-15.1 [facility] Comment on above: Performed By: #### C BC, PT, PTT, BMP #### [address] [address] [employer]: Reed Mckeon MD #### ANICOT #### [facility] [address] [place] [address] [employer]or [employer]: Eduin Alvarez MD MCH Entitic mass (RBC) 28.4 pg Normal 25.2-33.5 [facility] Comment on above: Performed By: #### C BC, PT, PTT, BMP #### [facility] [employer] [address] [place] [id number] [employer]: Reed Mckeon MD #### ANICOT #### [facility] [address] [place] [address] [employer]: Eduin Alvarez MD MCHC mass conc (RBC) 33.2 g/dL Normal 28.4-34.8 [facility] Comment on above: Performed By: #### C BC, PT, PTT, BMP #### [facility] [place], [place] [id number] [employer]: Reed Mckeon MD #### ANPOORNIMAT #### [facility] [address] [place] [address] [employer]: Eduin Alvarez MD MCV Entitic volume (RBC) 85.7 fL Normal 82.6-102.9 [facility] Comment on above: Performed By: #### C BC, PT, PTT, BMP #### [facility] [employer] [address] [place] [address] [phone] [employer]: Reed Mckeon MD #### ANPOORNIMAT #### [facility] [address] [place] [address] [employer]or [employer]: Eduin Alvarez MD NRBC Automated 0.0 per 100 WBC Normal 0.0 [facility] Comment on above: Performed By: #### C BC, PT, PTT, BMP #### [facility] [employer] [address] [place] [address] [phone] [employer]: Reed Mckeon MD #### ANPOORNIMAT #### [facility] [address] [place] [address] [employer]or [employer]: Eduin Alvarez MD Platelet mean volume Entitic volume (Bld) 9.4 fL Normal 8.1-13.5 [facility] Comment on above: Performed By: #### C BC, PT, PTT, BMP #### [facility] [employer] [address] [place] [id number] [employer]: Reed Mckeon MD #### ANICOT #### [facility] [address] [place] [address] Contractor [employer]: Eduin Alvarez MD Platelets #/vol (Bld) 392 10*3/uL Normal 138-453 [facility] Comment on above: Performed By: #### C BC, PT, PTT, BMP #### [address] [address] [employer]: Reed Mckeon MD #### ANICOT #### [facility] [address], [place] [id number] Contractor [employer]: Eduin Alvarez MD RBC #/vol (Bld) 4.82 10*6/uL Normal 3.95-5.11 [facility] Comment on above: Performed By: #### C BC, PT, PTT, BMP #### [address] [address] [employer]: Reed Mckeon MD #### ANICOT #### [facility] [address] [id number] Contractor [employer]: Eduin Alvarez MD WBC #/vol (Bld) 10.4 10*3/uL Normal 3.5-11.3 [facility] Comment on above: Performed By: #### C BC, PT, PTT, BMP #### [address] [address] [employer]: Reed Mckeon MD #### ANICOT #### [facility] [address] [phone] [employer]: Eduin Alvarez MD PTon 04-02-2018 INR Coag RelTime (PPP) 1.0 {INR} Normal [facility] Comment on above: Result Comment: Therapeutic Range: Moderate Anticoagulant Intensity: INR = 2.0-3.0 High Anticoagulant Intensity: INR = 2.5-3.5 Performed By: #### C BC, PT, PTT, BMP #### [address] [address] [employer]: Reed Mckeon MD #### ANICOT #### [facility] [address], [place] [id number] Contractor [employer]: Eduin Alvarez MD Prothrombin time (PT) Coag time (PPP) 10.3 s Normal 9.0-12.0 [facility] Comment on above: Performed By: #### C BC, PT, PTT, BMP #### [employer] [address] [place] [address] [id number] Contractor [employer]: Reed Mckeon MD #### ANICOT #### [address] [address] Contractor [employer]: Eduin Alvarez MD XR CHEST (2 VW)on 04-02-2018 XR CHEST (2 VW) EXAMINATION: TWO VIEWS OF THE CHEST 04/02/2018 8:51 am COMPARISON: None. HISTORY: ORDERING SYSTEM PROVIDED HISTORY: Pre-op chest exam FINDINGS: The lungs are without acute focal process. There is no effusion or pneumothorax. The cardiomediastinal silhouette is without acute process. The osseous structures are without acute process. IMPRESSION: No acute process. Interpreted by: Mk Mijares Jr., DO Signed by: Mk Mijares Jr., DO 04/02/18 Final result Normal [facility] H. pylori Detectionon 2017 H. pylori Detection Specimen Description .TISSUE, STOMACH BIOPSY Special Requests LOT [id number] EXP FEB 2018 Radio Interference Supervisor on this test is within expected limits. Direct Exam NEGATIVE Report Status FINAL 12/05/2017 Normal [facility] Comment on above: Performed By: #### H GENET #### [facility] [address] [place] [address] [id number] Surgical Pathologyon 018 Surgical Pathology (NOTE) [id number] [facility] ANATOMIC PATHOLOGY [address] [place] [phone] SURGICAL PATHOLOGY CONSULTATION Patient Name: ANTOINETTE RECIO [facility] Rec: [id number] Path Number: [id number] Collected: 12/04/2017 Received: 12/04/2017 Reported: 12/07/2017 12:25 -- Diagnosis -- STOMACH, BIOPSY: - MILD CHRONIC GASTRITIS. - NEGATIVE FOR HELICOBACTER PYLORI. Pro Beauchamp, Electronically Signed Out 12/07/2017 Clinical Information Pre-op Diagnosis: GERD, OBESITY Operative Findings: GASTRIC; STOMACH CLOTEST (H. PYLORI DETECTION) Operation Performed: EGD BIOPSY Source of Specimen 1: GASTRIC Gross Description ANTOINETTE RECIO, GASTRIC One [place] tissue fragment, 0.4 x 0.1 x 0.1 cm. Entirely 1cs. po tm Microscopic Description Microscopic examination performed. Normal [facility] Comment on above: Performed By: #### P PPVS #### [facility] [employer] [address] [place] [address] Vital Signs Date Time Vital Sign Value Performing Clinician Faci lity 05-05-2023 15:13-0400 Body mass index (BMI) [Ratio] 29.32 kg/m2 Nieves Velasquez MD Work Phone: [facility] 05-05-2023 15:13-0400 Body weight 79.92 kg Nieves Velasquez MD Work Phone: [facility] 05-05-2023 15:13-0400 Diastolic blood pressure 84 mm[Hg] Nieves Velasquez MD Work Phone: [facility] 05-05-2023 15:13-0400 Systolic blood pressure 126 mm[Hg] Nieves Velasquez MD Work Phone: [facility] 11-30-2022 07:30-0400 Body temperature 97.9 [degF] PHYSICIAN NO [facility] 11-30-2022 07:30-0400 Diastolic blood pressure 104 mm[Hg] PHYSICIAN NO [facility] 11-30-2022 07:30-0400 Heart rate 68 /min PHYSICIAN NO [facility] 11-30-2022 07:30-0400 Respiratory rate 18 /min PHYSICIAN NO [facility] 11-30-2022 07:30-0400 SaO2% (BldA) [Mass fraction] 99 % PHYSICIAN NO [facility] 11-30-2022 07:30-0400 Systolic blood pressure 155 mm[Hg] PHYSICIAN NO [facility] 11-28-2022 14:23-0400 Body height 165.1 cm PHYSICIAN NO [facility] 11-27-2022 16:19-0400 Body weight 85.72 kg PHYSICIAN NO [facility] 11-27-2022 14:57-0400 Diastolic blood pressure 90 mm[Hg] PHYSICIAN NO [facility] 11-27-2022 14:57-0400 Heart rate 86 /min PHYSICIAN NO [facility] 11-27-2022 14:57-0400 Respiratory rate 18 /min PHYSICIAN NO [facility] 11-27-2022 14:57-0400 SaO2% (BldA) [Mass fraction] 98 % PHYSICIAN NO [facility] 11-27-2022 14:57-0400 Systolic blood pressure 142 mm[Hg] PHYSICIAN NO [facility] 11-27-2022 09:40-0400 Body height 165.1 cm PHYSICIAN NO [facility] 11-27-2022 09:40-0400 Body temperature 98.5 [degF] PHYSICIAN NO [facility] 11-27-2022 09:40-0400 Body weight 86.5 kg PHYSICIAN NO [facility] 05-13-2022 12:00-0400 Body temperature 98 [degF] PHYSICIAN NO [facility] 05-13-2022 12:00-0400 Diastolic blood pressure 79 mm[Hg] PHYSICIAN NO [facility] 05-13-2022 12:00-0400 Heart rate 102 /min PHYSICIAN NO [facility] 05-13-2022 12:00-0400 Respiratory rate 18 /min PHYSICIAN NO [facility] 05-13-2022 12:00-0400 SaO2% (BldA) [Mass fraction] 94 % PHYSICIAN NO [facility] 05-13-2022 12:00-0400 Systolic blood pressure 113 mm[Hg] PHYSICIAN NO [facility] 05-12-2022 09:00-0400 Body weight 79.83 kg PHYSICIAN NO [facility] 05-09-2022 14:19-0400 Body height 165.1 cm PHYSICIAN NO [facility] 05-09-2022 04:22-0400 Diastolic blood pressure 79 mm[Hg] PHYSICIAN NO [facility] 05-09-2022 04:22-0400 Systolic blood pressure 118 mm[Hg] PHYSICIAN NO [facility] 05-09-2022 01:14-0400 Heart rate 103 /min PHYSICIAN NO [facility] 05-09-2022 01:14-0400 Respiratory rate 18 /min PHYSICIAN NO [facility] 05-09-2022 01:14-0400 SaO2% (BldA) [Mass fraction] 97 % PHYSICIAN NO [facility] 05-08-2022 23:48-0400 Body height 165.1 cm PHYSICIAN NO [facility] 05-08-2022 23:48-0400 Body temperature 97.5 [degF] PHYSICIAN NO [facility] 05-08-2022 23:48-0400 Body weight 77.11 kg PHYSICIAN NO [facility] Encounters Encounter Date Encounter Type Care Provider Facility Start: 09-15-2023 End: 09-15-2023 ambulatory [facility] Start: 08-12-2023 End: 08-12-2023 ambulatory [facility] Start: 06-16-2023 End: 06-16-2023 Emergency department patient visit NO PCP NO PCP [facility] Start: 06-03-2023 End: 06-03-2023 ambulatory NO PCP NO PCP [facility] Start: 05-05-2023 End: 05-05-2023 ambulatory [facility] Start: 05-05-2023 Encounter for gynecological examination (general) (routine) without abnormal findings [facility] Start: 05-05-2023 End: 05-05-2023 Office outpatient visit 25 minutes Nieves Velasquez MD Work Phone: [facility] Comment on above: GA: 8w4d Start: 05-05-2023 End: 05-05-2023 Patient encounter status Nieves Velasquez MD Work Phone: [facility] Start: 05-05-2023 End: 05-05-2023 ambulatory NIEVES VELASQUEZ [facility] Start: 05-05-2023 Encounter for gynecological examination (general) (routine) without abnormal findings [facility] Start: 04-16-2023 End: 04-16-2023 ambulatory [facility] Start: 04-14-2023 End: 04-14-2023 Initial care visit 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 Work Phone: [facility] Comment on above: First trimester preg bal (Primary Dx); HTN in , chronic; History of gestational diabetes in prior , currently ; Nausea/vomiting in Start: 04-14-2023 End: 04-14-2023 ambulatory [facility] Start: 03-30-2023 End: 03-31-2023 Emergency department patient visit NICOLASA TUCKER [facility] Start: 11-27-2022 End: 11-30-2022 Evaluation and management of inpatient PHYSICIAN NO FAMILY Facility:[facility] Start: 11-27-2022 End: 11-30-2022 Evaluation and management of inpatient PHYSICIAN NO FAMILY [facility] Work Phone: Start: 11-27-2022 ambulatory PHYSICIAN NO FAMILY Fac ility:[facility] Start: 05-09-2022 End: 05-13-2022 Evaluation and management of inpatient PHYSICIAN NO FAMILY Facility:[facility] Start: 05-09-2022 End: 05-13-2022 Evaluation and management of inpatient PHYSICIAN NO FAMILY [facility] Work Phone: Start: 12-19-2021 End: 12-20-2021 ambulatory [facility] Start: 03-17-2021 End: 03-18-[address] NONE LISTED REQUEST Facility: Start: 06-11-2020 End: 06-14-2020 ambulatory REFERRED SELF Facility:[facility] Start: 06-10-2020 End: 06-10-[address] PRO BOSTON Facility: Start: 04-15-2018 End: 04-16-2018 Patient encounter procedure VIPUL TRIPATHI [facility] Start: 04-12-2018 End: 04-14-2018 Evaluation and management of inpatient CHER Alcantar [facility] Start: 04-02-2018 Encounter for preprocedural respiratory examination CHER [facility] Start: 04-02-2018 Encounter for other preprocedural examination CHER [facility] Start: 04-02-2018 End: 04-07-2018 Patient encounter procedure CHER Alcantar [facility] Start: 12-04-2017 End: 12-04-2017 Patient encounter procedure CHER Katharine [facility] Encounter for other preprocedural examination [facility] Procedures Date Procedure Procedure Detail Performing Clinician Start: 05-05-2023 Adult depression scr eening assessment Nieves Velasquez MD Work Phone: Start: 11-27-2022 Urine culture PHYSICIAN NO FAMILY Start: 11-27-2022 CT of abdomen and pe lvis without contrast PHYSICIAN NO FAMILY Start: 11-27-2022 Plain chest X-ray PHYSI KWAME NO FAMILY Start: 04-16-2018 INCENTIVE SPIROMETRY RT CHER MARAVILLA Start: 04-16-2018 DISCHARGE PATIENT KRISTA MARAVILLA Start: 04-16-2018 INCENTIVE SPIROMETRY RT CHER MARAVILLA Start: 04-16-2018 INCENTIVE SPIROMETRY RT CHER TAIWO Start: 04-16-2018 INCENTIVE SPIROMETRY RT CHER TAIWO Start: 04-16-2018 INCENTIVE SPIROMETRY RT CHER MARAVILLA Start: 04-16-2018 INCENTIVE SPIROMETRY RT CHER MARAVILLA Start: 04-16-2018 INCENTIVE SPIROMETRY RT CHER MARAVILLA Start: 04-16-2018 INCENTIVE SPIROMETRY RT CHER TAIWO Start: 04-16-2018 INITIATE OXYGEN THER APY PROTOCOL CHER MARAVILLA Start: 04-16-2018 INCENTIVE SPIROMETRY RT CHER MARAVILLA Start: 04-16-2018 INCENTIVE SPIROMETRY RT CHER TAIWO Start: 04-16-2018 Blood count complete automated CHER MARAVILLA Start: 04-16-2018 Comprehensive metabo lic panel CHER GARZATON Start: 04-16-2018 INCENTIVE SPIROMETRY RT CHER MARAVILLA Start: 04-16-2018 INCENTIVE SPIROMETRY RT CHER MARAVILLA Start: 04-16-2018 DAILY WEIGHTS CHER Saira STEVENS Start: 04-16-2018 INTAKE AND OUTPUT KRISTA LEMONS TAIWO Start: 04-16-2018 INCENTIVE SPIROMETRY RT CHER MARAVILLA Start: 04-15-2018 INCENTIVE SPIROMETRY RT CHER MARAVILLA Start: 04-15-2018 Virus centrifuge enh ncd id imfluor stain ea CHER MARAVILLA Start: 04-15-2018 INCENTIVE SPIROMETRY RT CHER MARAVILLA Start: 04-15-2018 Assay of troponin quantitative CHER MARAVILLA Start: 04-15-2018 INCENTIVE SPIROMETRY RT CHER MARAVILLA Start: 04-15-2018 Creatine kinase total G ROXY MARAVILLA Start: 04-15-2018 Iaad ia mult step me thod nos each organism CHER TAIWO Start: 04-15-2018 Smr prim src gram/gi emsa stain bct fungi/cell CHER TAIWO Start: 04-15-2018 Virus centrifuge enh ncd id imfluor stain ea CHER MARAVILLA Start: 04-15-2018 INCENTIVE SPIROMETRY RT CHER MARAVILLA Start: 04-15-2018 IP CONSULT TO IV TEAM G TANYAKAVITHA TAIWO Start: 04-15-2018 Radiologic exam ches t single view CHER MARAVILLA Start: 04-15-2018 DIET BARIATRIC CLEAR LIQUID CHER TAIWO Start: 04-15-2018 PATIENT STATUS (DIRECT) CHER MARAVILLA Start: 04-15-2018 Iadna respiratry pro be & rev trnscr 12-25 target CHER MARAVILLA Start: 04-15-2018 INCENTIVE SPIROMETRY RT CHER MARAVILLA Start: 04-15-2018 Assay of troponin quantitative CHER MARAVILLA Start: 04-15-2018 Culture bacterial bl ood aerobic w/id isolates CHER MARAVILLA Start: 04-15-2018 Gonadotropin chorion ic qualitative CHER MARAVILLA Start: 04-15-2018 Ecg routine ecg w/le ast 12 lds w/i&r CHER MARAVILLA Start: 04-15-2018 EKG REPORT CHER ODELL Start: 04-15-2018 IP CONSULT TO BARIATRICS CHER MARAVILLA Start: 04-15-2018 OT EVAL AND TREAT KRISTA MARAVILLA Start: 04-15-2018 PLACE INTERMITTENT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
--- NOTE | 2023-11-04 12:36 | US_ITS ---
[address] [address] Patient Name: BRAYDEN RECIO MRN: [id number] date: 1995 Sex: F Assigned Patient Location: [facility] Current Patient Location: [facility] Accession/Order Number: [id number] Exam Date: 11/04/2023 12:45 Report Date: 11/04/2023 13:50 At the request of: MANPREET PLUNKETT Procedure: US OB BPP w non-stress EXAMINATION: US OB BPP w non-stress HISTORY:h/o chronic hypertension COMPARISON: No relevant comparison available. TECHNIQUE: Ultrasound biophysical profile was performed in the radiology department. BREATHING MOVEMENTS: 2 GROSS BODY MOVEMENTS: 2 TONE: 2 QUALITATIVE AMNIOTIC FLUID VOLUME: 2 PRESENTATION: CEPHALIC HEART RATE: 133.66 bpm AMNIOTIC FLUID VOLUME: 13.81 cm GESTATIONAL AGE: 34 weeks 5 days US/US OB BPP w non-stress IMPRESSION: Total biophysical profile score: 8 Electronically authenticated by: SUZANNE VIDAL Date: 11/04/2023 13:50
--- NOTE | 2023-11-04 12:36 | US_ITS ---
[address] [address] Patient Name: BRAYDEN RECIO MRN: [id number] date: 1995 Sex: F Assigned Patient Location: [facility] Current Patient Location: [facility] Accession/Order Number: [id number] Exam Date: 11/04/2023 12:45 Report Date: 11/04/2023 13:51 At the request of: MANPREET PLUNKETT Procedure: US OB growth EXAMINATION: US OB growth HISTORY: h/o chronic hypertension COMPARISON: No relevant comparison available. FINDINGS: Heart Rate: 133.66 bpm Amniotic Fluid Volume: 13.8 cm; normal range Number: 1 Position: CEPHALIC BIOMETRY: BPD: 8.49 cm; 34 weeks 1 day; 35 % HC: 31.05 cm; 34 weeks 5 days; 16.80 % AC: 29.34 cm; 33 weeks 2 days; 18.10 % FL: 5.91 cm; 30 weeks 6 days; < 3 % EFW: 2056.59 g; 6.90 % FL/AC: 20.13 FL/BPD: 69.62 HC/AC: 1.06 GESTATIONAL AGE: Age by EDC: 34 weeks 5 days CALVIN by EDC: 2023-12-11 Age by US: 33 weeks 2 days CALVIN by US: 2023-12-21 US/US OB growth IMPRESSION: 1. Single live intrauterine with growth detailed above. 2. Femur length is <3rd percentile. 3. Estimated weight is at the 7th percentile. Electronically authenticated by: SUZANNE VIDAL Date: 11/04/2023 13:51
[2023-11-04 13:00] LABS: Basophils Absolute Auto 0.1 10^3/uL (0.0-0.1); Basophils Percent Auto 0.8 % (0.2-2.0); Eosinophils Absolute Auto 0.1 10^3/uL (0.0-0.7); Hematocrit 31.9 % (36.0-48.0); Immature Granulocytes Abs Auto 0.08 10^3/uL (0.00-0.03); Immature Granulocytes Pct Auto 0.9 % (0.0-0.5); Lymphocytes Absolute Auto 1.6 10^3/uL (1.2-3.8); Lymphocytes Percent Auto 17.5 % (20.5-60.0); Mean Corpuscular HGB Conc 31.3 g/dL (29.9-35.2); Mean Corpuscular Hemoglobin 25.8 pg (26.7-34.0); Mean Corpuscular Volume 82.2 fL (81.0-99.0); Monocytes Absolute Auto 0.5 10^3/uL (0.3-0.8); Monocytes Percent Auto 5.9 % (1.7-12.0); Neutrophils Absolute Auto 6.8 10^3/uL (1.4-6.5); Neutrophils Percent Auto 73.9 % (43.0-75.0); Platelet Count 325 10^3/uL (150-450); Red Blood Count 3.88 10^6/uL (4.20-5.40); Red Cell Distribution Width 14.7 % (11.0-15.0); White Blood Count 9.1 10^3/uL (4.0-11.0)
[2023-11-04 13:10] VITALS: BP 129/88; PULSE 102
[2023-11-04 13:10] LABS: Estimated Average Glucose 103 mg/dL; Glycohemoglobin A1C 5.2 % (4.5-6.2)
--- NOTE | 2023-11-04 13:56 | PC.NURSE ---
1345: Dr Mathew notified of results of ordered tests and discharge order received.
== END 2023-11-04 13:55 | disposition home or self-care (01) ==
LOC: FBCO 12:24 → FBC 12:30
PROVIDERS: PCP Nurse Practitioner; Visit Provider Obstetrics & Gynecology
DX: O10.913 Unspecified pre-existing hypertension complicating pregnancy, third trimester (principal); Z3A.34 34 weeks gestation of pregnancy
CPT/HCPCS: 36415; 76816; 76818; 83036; 85025

== ENCOUNTER 2023-11-07 18:59 | Emergency (ER) | payer OTHER, SELFPAY ==
[2023-11-07 19:03] VITALS: BP 147/94; PULSE 96; TEMP 36.7; O2SAT 97; BMI 26.0
--- OUTSIDE RECORDS SUMMARY | 2023-11-07 19:07 | XMS_ITS | CCD ---
Author Organization [facility] Care Team Providers Care Equipment Worker Name Role Phone CHER MARAVILLA Admitting Unavailable CHER MARAVILLA Attending Unavailable CHER MARAVILLA Referring Unavailable FERNANDO KELLI Primary Care Unavailable CHER MARAVILLA Referring Unavailable FERNANDO [facility] Primary Care Unavailable CHER MARAVILLA Admitting Unavailable CHER MARAVILLA Attending Unavailable FERNANDO KELLI Primary Care Unavailable VIPUL TRIPATHI Referring Unavailable FERNANDO, [facility] Primary Care Unavailable RACHAEL MERAZ Consulting Unavailable CHER MARAVILLA Admitting Unavailable CHER MARAVILLA Attending Unavailable CHER MARAVILLA Consulting Unavailable JOSE R JOSE Consulting Unavailable REQUEST, NONE LISTED Primary Care Unavaila portia TRIPATHI, DR VIPUL Alcantar Attending Unavailable DILAN, DR VIPUL Alcantar Consulting Unavailable DILAN, DR VIPUL Alcantar Admitting Unavailable Atiya Grewal Consulting Unavailable DARVIN, DR PRO Tong Consulting Unavailabl e REQUEST, NONE LISTED Primary Care Unavaila [...] Provider Unava ilDO Henry Baez Emergency Provider Unavai MD Tiana Stevenson Admit Provider MD Tiana Smith Attending Provider [phone] NO FAMILY, PHYSICIAN Primary Care Provider Unava MD Sara Delgado Emergency Provider MD Rios Dar Admit Provider MD Dar Nation Attending Provider NO FAMILY, PHYSICIAN Primary Care Unavailable Dar Nation Admitting Unavailable Dar Nation Attending Unavailable NO FAMILY, PHYSICIAN Primary Care Unavailable Dar Nation Attending Unavailable Ji Smith Admitting Unavailab le NO FAMILY, PHYSICIAN Primary Care Unavailable Ji Smith Admitting Unavailab le Ji Smith Attending Unavailab le No Pcp, No Pcp Primary Care Provider Unavailoj e LYNN DELEON Attending Unavailable NO PCP, NO PCP Primary Care Unavailable NIEVES VELASQUEZ Attending Unavailable NO PCP, NO PCP Primary Care Unavailable NO PCP, NO PCP Primary Care Unavailable LYNN DELEON Referring Unavailable NO PCP, NO PCP Primary Care Unavailable GONZALES WILLIAM Attending Unavailable BRET SLOAN Referring Unavailable NO PCP, NO PCP Primary Care Unavailable LYNN DELEON Attending Unavailable LYNN DELEON Referring Unavailable NO PCP, NO PCP Primary Care Unavailable LYNN DELEON Referring Unavailable NO PCP, NO PCP Primary Care Unavailable NIEVES VELASQUEZ Referring Unavailable NO PCP, NO PCP Primary Care Unavailable NO PCP, NO PCP Primary Care Unavailable CLAY STRAUSS Attending Unavailable LYNN DELEON Referring Unavailable NO PCP, NO PCP Primary Care Unavailable NO PCP, NO PCP Primary Care Unavailable NICOLASA TUCKER Attending Unavailable NICOLASA TUCKER Referring Unavailable NO PCP, NO PCP Primary Care Unavailable MANPREET PLUNKETT Attending Unavailable Allergies Allergy Classification Reported Allergen(s) Allergy Type Date of Onset Reaction(s) Facility (10 sources) Azithromycin; Translations: [azithromycin] Drug Allergy 05-08-2022 Anaphylaxis [facility] Medications Current Medications Medication Drug Class(es) Dates Sig (Normalized) Sig (Original) busPIRone hydrochloride 10 mg oral tablet (1 source) Start: 11-30-2022 take 10 mg by mouth three times daily Buspirone Active 10 MG PO Three times daily November 303 12:00am cephalexin 500 mg oral capsule (9 sources) Cephalosporin Antibacterial Start: 11-30-2022 take 500 mg by mouth every eight hours Cephalexin Active 500 MG PO Every 8 hours 21 November 30, 2022 12:00am Start: 12-21-2020 End: 05-08-2022 [...] Every 2 hours November 30, 2022 12:00am [place] (No Known Home Meds) (1 source) Start: 11-27-2022 [place] (No Known Home Meds) Active November 27, [...] Venlafaxine Active 75 MG PO Daily 30 30 October 22nd, 2023 12:00am Start: 05-13-2022 End: 11-27-2022 take 37.5 [...] Hcl Discontinued 10 MG PO Twice daily 06 12May 13, 2022 12:00am November 27, 2022 3:48pm [...] Discontinued 100 MG PO Twice daily 60 May 13, 2022 12:00am November 27, 2022 [...] (1 source) Vomitng, Cramps, 15 wks Onset: Urinary tract infections (6 sources) Urinary tract [...] Range Facility CBC AND AUTO DIFFon 06-16-19 ABSOLUTE BASOPHIL 0.1 X10E9/L Normal 0.0-0.2 [facility] Comment on above: Performed By: #### 2 106-3 #### [facility] ([id number]) [address] [place] [address] 86845 ABSOLUTE NEUTROPHIL 11.8 X10E9/L High 1.5-6.6 [facility] Comment on above: Performed By: #### 2 106-3 #### [facility] ([id number]) [address] [place] [address] 53479 Basophils/100 WBC (Bld) 0.4 % Normal [facility] Comment on above: Performed By: #### 2 106-3 #### [facility] ([id number]) [address] [place] [address] 50422 Eosinophils (Bld) [#/Vol] 0.1 10*3/uL Normal 0.0-0.4 [facility] Comment on above: Performed By: #### 2 106-3 #### [facility] ([id number]) [address] [place] [address] 28778 Eosinophils/100 WBC (Bld) 0.4 % Normal [facility] Comment on above: Performed By: #### 2 106-3 #### [facility] ([id number]) [address] [place] [address] 36965 Erythrocyte distribution width (RBC) [Ratio] 15.3 % High 11.5-15.0 [facility] Comment on above: Performed By: #### 2 106-3 #### [facility] ([id number]) [address] [place] [address] 21392 Hematocrit (Bld) [Volume fraction] 35.3 % Normal 35-47 [facility] Comment on above: Performed By: #### 2 106-3 #### [facility] ([id number]) [address] [place] [address] 58029 Hemoglobin (Bld) [Mass/Vol] 12.0 g/dL Normal 11.7-15.5 [facility] Comment on above: Performed By: #### 2 106-3 #### [facility] ([id number]) [address] [place] [address] 97172 Lymphocytes (Bld) [#/Vol] 1.4 10*3/uL Normal 1.0-3.5 [facility] Comment on above: Performed By: #### 2 106-3 #### [facility] ([id number]) [address] [place] [address] 76790 Lymphocytes/100 WBC (Bld) 10.3 % Normal [facility] Comment on above: Performed By: #### 2 106-3 #### [facility] ([id number]) [address] [place] [address] 17533 MCH (RBC) [Entitic mass] 28.1 pg Normal 27-34 [facility] Comment on above: Performed By: #### 2 106-3 #### [facility] ([id number]) [address] [place] [address] 51478 MCHC (RBC) [Mass/Vol] 33.9 g/dL Normal 32-36 [facility] Comment on above: Performed By: #### 2 106-3 #### [facility] ([id number]) [address] [place] [address] 52196 MCV (RBC) [Entitic vol] 83 fL Normal 80-100 [facility] Comment on above: Performed By: #### 2 106-3 #### [facility] ([id number]) [address] [place] [address] 57169 Monocytes (Bld) [#/Vol] 0.5 10*3/uL Normal 0-0.9 [facility] Comment on above: Performed By: #### 2 106-3 #### [facility] ([id number]) [address] [place] [address] 72012 Monocytes/100 WBC (Bld) 3.6 % Normal [facility] Comment on above: Performed By: #### 2 106-3 #### [facility] ([id number]) [address] [place] [address] 57549 Neutrophils/100 WBC (Bld) 85.3 % Normal [facility] Comment on above: Performed By: #### 2 106-3 #### [facility] ([id number]) [address] [place] [address] 40034 Platelet mean volume (Bld) [Entitic vol] 8.2 fL Normal 7-12 [facility] Comment on above: Performed By: #### 2 106-3 #### [facility] ([id number]) [address] [place] [address] 03320 Platelets (Bld) [#/Vol] 434 10*3/uL Normal 150-450 [facility] Comment on above: Performed By: #### 2 106-3 #### [facility] ([id number]) [address] [place] [address] 42225 RBC COUNT 4.27 X10E12/L Normal 3.80-5.20 [facility] Comment on above: Performed By: #### 2 106-3 #### [facility] ([id number]) [address] [place] [address] 13845 WBC (Bld) [#/Vol] 13.8 10*3/uL High 4.0-11.0 [facility] Comment on above: Performed By: #### 2 106-3 #### [facility] ([id number]) [address] [place] [address] 29479 COMPREHENSIVE METABOLIC PANE Shaji 06-16-2023 Albumin [Mass/Vol] 3.9 g/dL Normal 3.2-5.3 [facility] Comment on above: Performed By: #### 2 106-3 #### [facility] ([id number]) [address] [place] [address] 23216 ALP [Catalytic activity/Vol] 46 U/L Normal 39-130 [facility] Comment on above: Performed By: #### 2 106-3 #### [facility] ([id number]) [address] [place] [address] 81350 ALT [Catalytic activity/Vol] 12 U/L Normal 0-31 [facility] Comment on above: Performed By: #### 2 106-3 #### [facility] ([id number]) [address] [place] [address] 64567 Anion gap [Moles/Vol] 12 mmol/L Normal 5-15 [facility] Comment on above: Performed By: #### 2 106-3 #### [facility] ([id number]) [address] [place] [address] 11330 AST [Catalytic activity/Vol] 15 U/L Normal 0-41 [facility] Comment on above: Performed By: #### 2 106-3 #### [facility] ([id number]) [address] [place] [address] 57796 Bilirubin [Mass/Vol] 0.3 mg/dL Normal 0.3-1.[address] [facility] Comment on above: Performed By: #### 2 106-3 #### [facility] ([id number]) [address] [place] [address] 15094 Calcium [Mass/Vol] 9.0 mg/dL Normal 8.5-10.5 [facility] Comment on above: Performed By: #### 2 106-3 #### [facility] ([id number]) [address] [place] [address] 85744 Chloride [Moles/Vol] 105 mmol/L Normal 98-[address] [facility] Comment on above: Performed By: #### 2 106-3 #### [facility] ([id number]) [address] [place] [address] 10551 CO2 [Moles/Vol] 19 mmol/L Low 22-32 [facility] Comment on above: Performed By: #### 2 106-3 #### [facility] ([id number]) [address] [place] [address] 18761 Creatinine [Mass/Vol] 0.58 mg/dL Normal 0.40-1.00 [facility] Comment on above: Result Comment: METH OD TRACEABLE TO IDMS STANDARD Performed By: #### 2 106-3 #### [facility] ([id number]) [address] [place] [address] 68336 eGFR (CKD-EPI) NON-RACE DEPENDENT >90 Normal >59 [facility] Comment on above: Result Comment: Reported eGFR is based on the CKD-EPI 2020 equation that does not use a race coefficient. Performed By: #### 2 106-3 #### [facility] ([id number]) [address] [place] [address] 62358 Glucose [Mass/Vol] 87 mg/dL Normal 65-99 [facility] Comment on above: Performed By: #### 2 106-3 #### [facility] ([id number]) [address] [place] [address] 93469 Potassium [Moles/Vol] 3.6 mmol/L Normal 3.5-5.0 [facility] Comment on above: Performed By: #### 2 106-3 #### [facility] ([id number]) [address] [place] [address] 95499 Protein [Mass/Vol] 7.5 g/dL Normal 6.0-8.0 [facility] Comment on above: Performed By: #### 2 106-3 #### [facility] ([id number]) [address] [place] [address] 64439 Sodium [Moles/Vol] 136 mmol/L Normal 134-146 [facility] Comment on above: Performed By: #### 2 106-3 #### [facility] ([id number]) [address] [place] [address] 62590 Urea nitrogen [Mass/Vol] 7 mg/dL Normal 5-23 [facility] Comment on above: Performed By: #### 2 106-3 #### [facility] ([id number]) [address] [place] [address] 65446 MAGNESIUMon 06-16-2023 Magnesium [Mass/Vol] 1.7 mg/dL Low 1.8-2.[address] [facility] Comment on above: Performed By: #### 2 106-3 #### [facility] ([id number]) [address] [facility] [place] [address] SARS/FLU A+B/RSV by NAAT/Mol ecchunon 06-16-2023 SARS/FLU A+B/RSV by NAAT/Molecular FLU A [...] operators who are performing tests using either [employer] DX or [employer] systems and is limited to laboratories that [...] repeat. Fact Sheet for Healthcare Providers: https://www.fda.gov/me gerry/429541/download Fact Sheet for Patients: https://www.fda.gov/co gerry/046938/download Normal [facility] Comment on above: Performed By: #### 2 106-3 #### [facility] ([id number]) [address] [place] [address] [place] [address] URINALYSISon 06-16-2023 Bilirubin Ql (U) Negative Normal NEG [facility] Comment on above: Performed By: #### 2 106-3 #### [facility] ([id number]) [address] [place] [address] [place] [address] BLOOD/HGB Negative Normal NEG [facility] Comment on above: Performed By: #### 2 106-3 #### [facility] ([id number]) [address] [place] [address] 67062 Color (U) YELLOW Normal YELLOW [facility] Comment on above: Performed By: #### 2 106-3 #### [facility] ([id number]) [address] [place] [address] [place] [address] Glucose Ql (U) Negative Normal NEG [facility] Comment on above: Performed By: #### 2 106-3 #### [facility] ([id number]) [address] [place] [address] [place] [address] Ketones Ql (U) Negative Normal NEG [facility] Comment on above: Performed By: #### 2 106-3 #### [facility] ([id number]) [address] [place] [address] [place] [address] Leukocyte esterase Test strip Ql (U) Negative Normal NEG [facility] Comment on above: Performed By: #### 2 106-3 #### [facility] ([id number]) [address] [place] [address] [place] [address] MUCOUS PRESENT Abnormal NONE [facility] Comment on above: Performed By: #### 2 106-3 #### [facility] ([id number]) [address] [place] [address] 66871 Nitrite Ql (U) Negative Normal NEG [facility] Comment on above: Performed By: #### 2 106-3 #### [facility] ([id number]) [address] [place] [address] 85596 pH (U) 6.5 [pH] Normal 5.0-8.5 [facility] Comment on above: Performed By: #### 2 106-3 #### [facility] ([id number]) [address] [place] [address] 85504 Protein Ql (U) Trace Abnormal NEG [facility] Comment on above: Performed By: #### 2 106-3 #### [facility] ([id number]) [address] [place] [address] 54882 R.B.CELLS 0 /hpf Normal 0-5 [facility] Comment on above: Performed By: #### 2 106-3 #### [facility] ([id number]) [address] [place] [address] 68395 Specific gravity (U) [Rel density] 1.025 Normal 1.003-1.035 [facility] Comment on above: Performed By: #### 2 106-3 #### [facility] ([id number]) [address] [place] [address] 79986 SQUAMOUS EPITHELIUM 2 /hpf Normal 0-5 [facility] Comment on above: Performed By: #### 2 106-3 #### [facility] ([id number]) [address] [place] [address] 96912 TURBIDITY CLEAR Normal CLEAR [facility] Comment on above: Performed By: #### 2 106-3 #### [facility] ([id number]) [address] [place] [address] 21019 Urobilinogen Qn (U) 1.0 {Jazmine'U}/dL Normal <1.1 [facility] Comment on above: Performed By: #### 2 106-3 #### [facility] ([id number]) [address] [place] [address] 86995 W.B.CELLS 0 /hpf Normal 0-5 [facility] Comment on above: Performed By: #### 2 106-3 #### [facility] ([id number]) [address] [place] [address] 51649 CHLAMYDIA/GC PCR, FLon 05-04 CHLAMYDIA/GC PCR, FL [...] are dependent on adequate specimen collection. Normal [facility] Comment on above: Performed By: #### 2 106-3 #### [facility] ([id number]) [address] [place] [address] 22446 Cytologyon 05-05-2023 Cytology Normal [facility] Comment on above: Result Comment: [facility] [address] [place] [address] Gynecologic Cytology Consultation Patient Name:ANTOINETTE RECIO:1995 (Age: 28)Gender:FTaken:4Reported:4Physician(s):Nieves Velasquez M.D. ([phone])Copy To: Rec. #:[id number]: #[id number] Final Cytologic Interpretation ThinPrep Pap Test (Cervical): Satisfactory for evaluation. A transformation zone component is present. NEGATIVE FOR INTRAEPITHELIAL LESION OR MALIGNANCY. Numerous neutrophilic leukocytes are present. j/05/21/2023 Interpretation performed at [facility], [address] [place] [address], License number: [id number]. Electronically Signed Out By FLAKO Houston(ASCP) Date of Last Menstrual Period: (None Given) Other Clinical Conditions: Z01.419 Dental Surgery Doctor exam wo/abn findings Z12.72 Screeing for malignant neoplasm of vagina Z11.3 Encntr screen for infections w sexl mode of transmiss Source of Specimen ThinPrep Pap Test (Cervical) Thin Prep Pap (CARDIO TECH) Fee Code(s): G0145 ACUTE HEPATITIS PANELon ANTI HCV W/PCR REFLX Non-Reactive Normal NRCT Pr [facility] Comment on above: Result Comment: If recent infection suspected, recommend repeat testing (>2 months). Zonbug-zl-aidvbu ratio is <0.80. Performed By: #### N UM #### [facility] ([id number]) [address] [place] [address] 98660 HEPATITIS A IGM Non-Reactive Normal NRCT [facility] Comment on above: Performed By: #### N UM #### [facility] ([id number]) [address] [place] [address] 26614 HEPATITIS B CORE IGM Negative Normal NEG [facility] Comment on above: Performed By: #### N UM #### [facility] ([id number]) [address] [place] [address] 48770 HEPATITIS B SURF AG Negative Normal NEG [facility] Comment on above: Performed By: #### N UM #### [facility] ([id number]) [address] [place] [address] 62952 COMPLETE BLOOD COUNTon 04-15 Erythrocyte distribution width (RBC) [Ratio] 18.6 % High 11.5-15.0 [facility] Comment on above: Performed By: #### C BC, CMP, 2532-0, 3084-1, AHP, 84046-8, 44229-7, 48639-9, 92730-9 #### [facility] ([id number]) [address], [address] [place] [address] Hematocrit (Bld) [Volume fraction] 34.6 % Low 35-47 [facility] Comment on above: Performed By: #### C BC, CMP, 2532-0, 3084-1, AHP, 95066-5, 55875-0, 19511-5, 44370-2 #### [facility] ([id number]) [address], [address] [place] [address] Hemoglobin (Bld) [Mass/Vol] 11.4 g/dL Low 11.7-15.5 [facility] Comment on above: Performed By: #### C BC, CMP, 2532-0, 3084-1, AHP, 95518-9, 16794-8, 60954-4, 68322-0 #### [facility] ([id number]) [address], [address] [place] [address] MCH (RBC) [Entitic mass] 26.7 pg Low 27-34 [facility] Comment on above: Performed By: #### C BC, CMP, 2532-0, 3084-1, AHP, 27717-4, 62252-7, 38821-6, 14384-9 #### [facility] ([id number]) [address], [address] [place] [address] MCHC (RBC) [Mass/Vol] 32.8 g/dL Normal 32-36 [facility] Comment on above: Performed By: #### C BC, CMP, 2532-0, 3084-1, AHP, 96066-8, 33487-6, 27276-2, 73061-3 #### [facility] ([id number]) [address], [address] [place] [address] MCV (RBC) [Entitic vol] 81 fL Normal 80-100 [facility] Comment on above: Performed By: #### C BC, CMP, 2532-0, 3084-1, AHP, 70247-3, 39001-4, 98032-7, 94028-1 #### [facility] ([id number]) [address], [address] [place] [address] Platelet mean volume (Bld) [Entitic vol] 8.5 fL Normal 7-12 [facility] Comment on above: Performed By: #### C BC, CMP, 2532-0, 3084-1, AHP, 91291-5, 25107-3, 72107-1, 37038-4 #### [facility] ([id number]) [address], [address] [place] [address] Platelets (Bld) [#/Vol] 351 10*3/uL Normal 150-450 [facility] Comment on above: Performed By: #### C BC, CMP, 2532-0, 3084-1, AHP, 80344-7, 87857-5, 97822-4, 09874-3 #### [facility] ([id number]) [address], [address] [place] [address] RBC COUNT 4.26 X10E12/L Normal 3.80-5.20 [facility] Comment on above: Performed By: #### C BC, CMP, 2532-0, 3084-1, AHP, 56080-1, 81882-5, 61837-3, 54603-8 #### [facility] ([id number]) [address], [address] [place] [address] WBC (Bld) [#/Vol] 8.9 10*3/uL Normal 4.0-11.0 [facility] Comment on above: Performed By: #### C BC, CMP, 2532-0, 3084-1, AHP, 34591-6, 48417-2, 63990-9, 69801-0 #### [facility] ([id number]) [address], [address] [place] [address] COMPREHENSIVE METABOLIC PANE Shaji 04-16-2023 Albumin [Mass/Vol] 4.4 g/dL Normal 3.2-5.3 [facility] Comment on above: Performed By: #### C BC, CMP, 2532-0, 3084-1, AHP, 19406-0, 50185-8, 95394-9, 04601-3 #### [facility] ([id number]) [address], [address] [place] [address] ALP [Catalytic activity/Vol] 42 U/L Normal 39-130 [facility] Comment on above: Performed By: #### C BC, CMP, 2532-0, 3084-1, AHP, 39809-8, 66902-8, 63393-9, 40823-1 #### [facility] ([id number]) [address], [address] [place] [address] ALT [Catalytic activity/Vol] 12 U/L Normal 0-31 [facility] Comment on above: Performed By: #### C BC, CMP, 2532-0, 3084-1, AHP, 45516-0, 90273-7, 68701-1, 08921-9 #### [facility] ([id number]) [address], [address] [place] [address] Anion gap [Moles/Vol] 9 mmol/L Normal 5-15 [facility] Comment on above: Performed By: #### C BC, CMP, 2532-0, 3084-1, AHP, 70517-1, 24159-1, 09869-9, 21250-0 #### [facility] ([id number]) [address], [address] [place] [address] AST [Catalytic activity/Vol] 13 U/L Normal 0-41 [facility] Comment on above: Performed By: #### C BC, CMP, 2532-0, 3084-1, AHP, 40978-7, 13241-8, 62477-4, 23073-3 #### [facility] ([id number]) [address], [address] [place] [address] Bilirubin [Mass/Vol] 0.7 mg/dL Normal 0.3-1.[address] [facility] Comment on above: Performed By: #### C BC, CMP, 2532-0, 3084-1, AHP, 57202-6, 06922-3, 12892-9, 17579-8 #### [facility] ([id number]) [address], [address] [place] [address] Calcium [Mass/Vol] 9.4 mg/dL Normal 8.5-10.5 [facility] Comment on above: Performed By: #### C BC, CMP, 2532-0, 3084-1, AHP, 29331-6, 71927-0, 06749-7, 65455-3 #### [facility] ([id number]) [address], [address] [place] [address] Chloride [Moles/Vol] 103 mmol/L Normal 98-[address] [facility] Comment on above: Performed By: #### C BC, CMP, 2532-0, 3084-1, AHP, 48703-3, 94093-1, 49406-2, 13950-1 #### [facility] ([id number]) [address], [address] [place] [address] CO2 [Moles/Vol] 24 mmol/L Normal 22-32 [facility] Comment on above: Performed By: #### C BC, CMP, 2532-0, 3084-1, AHP, 37469-6, 16868-9, 66228-4, 03901-0 #### [facility] ([id number]) [address], [address] [place] [address] Creatinine [Mass/Vol] 0.63 mg/dL Normal 0.40-1.00 [facility] Comment on above: Result Comment: METH OD TRACEABLE TO IDMS STANDARD Performed By: #### C SARWAT, CMP, 2532-0, 3084-1, AHP, 24096-1, 06354-9, 49006-8, 41852-8 #### [facility] ([id number]) [address], [address] [place] [address] eGFR (CKD-EPI) NON-RACE DEPENDENT >90 Normal >59 [facility] Comment on above: Result Comment: Reported eGFR is based on the CKD-EPI 2020 equation that does not use a race coefficient. Performed By: #### C SARWAT, CMP, 2532-0, 3084-1, AHP, 31005-5, 37398-8, 06366-0, 58815-0 #### [facility] ([id number]) [address], [address] [place] [address] Glucose [Mass/Vol] 84 mg/dL Normal 65-99 [facility] Comment on above: Performed By: #### C OPAL FAM, 2532-0, 3084-1, AHP, 35242-2, 75066-3, 34541-6, 02618-1 #### [facility] ([id number]) [address] [place] [address] Potassium [Moles/Vol] 3.4 mmol/L Low 3.5-5.0 [facility] Comment on above: Performed By: #### C BC, CMP, 2532-0, 3084-1, AHP, 82678-0, 62026-7, 80633-6, 41874-4 #### [facility] ([id number]) [address] [address] [place] [address] Protein [Mass/Vol] 6.9 g/dL Normal 6.0-8.0 [facility] Comment on above: Performed By: #### C BC, CMP, 2532-0, 3084-1, AHP, 36530-2, 61489-0, 10344-7, 77577-6 #### [facility] ([id number]) [address] [place] [address] Sodium [Moles/Vol] 136 mmol/L Normal 134-146 [facility] Comment on above: Performed By: #### C BC, CMP, 2532-0, 3084-1, AHP, 04400-8, 80476-7, 01851-0, 19154-7 #### [facility] ([id number]) [address] [facility] [place] [address] Urea nitrogen [Mass/Vol] 11 mg/dL Normal 5-23 [facility] Comment on above: Performed By: #### C BC, CMP, 2532-0, 3084-1, AHP, 47076-5, 49345-0, 93233-1, 32687-1 #### [facility] ([id number]) [address] [place] [address] DRUG SCREEN, URINEon 024 AMPHETAMINE/METHAMP Negative Normal NEG [facility] Comment on above: Result Comment: AMPH /METH screening cut off = 1000 ng/mL Performed By: #### N UM #### [facility] ([id number]) [address] [place] [address]90[address] BARBITURATES Negative Normal NEG [facility] Comment on above: Result Comment: Carmella iturates screening cut off value = 200 ng/mL Performed By: #### N UM #### [facility] ([id number]) [address] [place] [address] BENZODIAZEPINES Negative Normal NEG [facility] Comment on above: Result Comment: German odiazepines screening cut off value = 200 ng/mL Performed By: #### N UM #### [facility] ([id number]) [address] [place] [address] 712[address] CANNABINOIDS Positive Abnormal NEG [facility] Comment on above: Result Comment: Conf irmation available upon request. Cannabinoids/THC screening cut off value = 50 ng/mL Performed By: #### N UM #### [facility] ([id number]) [address] [place] [address] 33349 COCAINE METABOLITE Negative Normal NEG [facility] Comment on above: Result Comment: Coca ine screening cut off value = 300 ng/mL Performed By: #### N UM #### [facility] ([id number]) [address] [place] [address] 36387 ECSTASY Negative Normal NEG [facility] Comment on above: Result Comment: Ecst asy screening cut off value = 500 ng/mL This report is intended for use in clinical monitoring or management of patients. Performed By: #### N UM #### [facility] ([id number]) [address] [place] [address]34 METHADONE Negative Normal NEG [facility] Comment on above: Result Comment: Meth adone screening cut off value = 300 ng/mL. Performed By: #### N UM #### [facility] ([id number]) [address] [place] [address] 56091 OPIATES Negative Normal NEG [facility] Comment on above: Result Comment: Opia markie screening cut off value = 300 ng/mL NOTE: This test is used for the detection of codeine, hydrocodone (>1000 ng/mL), morphine and hydromorphone (>900 ng/mL) in urine. Performed By: #### N UM #### [facility] ([id number]) [address] [place] [address] [place] [address] OXYCODONE Negative Normal NEG [facility] Comment on above: Result Comment: Oxyc odone screening cut off value = 300 ng/mL NOTE: This test is used for the detection of oxycodone and oxymorphone in urine. Performed By: #### N UM #### [facility] ([id number]) [address] [place] [address] 60570 PHENCYCLIDINE Negative Normal NEG [facility] Comment on above: Result Comment: Phen cyclidine screening cut off value = 25 ng/mL Performed By: #### N UM #### [facility] ([id number]) [address] [place] [address] HIV 1+2 Ab+HIV1 p24 Ag IA Ql on 04-16-2023 HIV 1 and 2 Ab/Ag Screen Non-Reactive Normal NRCT [facility] Comment on above: Result Comment: This information [...] diagnoses. Performed By: #### N UM #### [facility] ([id number]) [address] [place] [address] 03936 LDH [Catalytic activity/Vol] on 04-16-2023 LDH 156 U/L Normal 100-235 [facility] Comment on above: Performed By: #### N UM #### [facility] ([id number]) [address] [place] [address] 63579 PROTEIN CREAT RATIOon 2023 RANDOM URINE PROTEIN 180 mg/L High <[address] [facility] Comment on above: Performed By: #### N UM #### [facility] ([id number]) [address] [place] [address]25 U/PRO/PIPE ORGAN TECHNICIAN RATIO CALC 0.07 Normal <0.[address] [facility] Comment on above: Result Comment: Neph rotic Syndrome is associated with ratios >3.5 Performed By: #### N UM #### [facility] ([id number]) [address] [place] [address] 32576 URINE CREATININE,RDM 273.50 mg/dL Normal Pr [facility] Comment on above: Performed By: #### N UM #### [facility] ([id number]) [address] [place] [address] 99460 Rubella virus Ab Ql (S)on RUBELLA IMMUNE IgG 3.1 AI Normal [facility] Comment on above: Result Comment: Interpretation-------- <0.8 NEGATIVE-considered Not Immune 0.8-0.9 EQUIVOCAL-consider retesting with new specimen >0.9 POSITIVE-considered Immune Performed By: #### N UM #### [facility] ([id number]) [address] [place] [address]146 T. pallidum IgG+IgM IA Ql (S )on 04-16-2023 Syphilis Total <0.2 Normal 0.0-0.8 [facility] Comment on above: Result Comment: NON REACTIVE No serologic evidence of infection to Treponema pallidum (syphilis). Repeat testing may be considered in patients with suspected acute or primary syphilis in 2 to 4 weeks. Performed By: #### N UM #### [facility] ([id number]) [address] [place] [address] URIC ACIDon 04-16-2023 Urate [Mass/Vol] 7.5 mg/dL High 2.6-7.2 [facility] Comment on above: Performed By: #### N UM #### [facility] ([id number]) [address] [place] [address]23 URINALYSISon 04-16-2023 Bilirubin Ql (U) Negative Normal NEG [facility] BLOOD/HGB Negative Normal NEG [facility] CA OXALATE CRYSTALS PRESENT Abnormal NONE [facility] Color (U) BROWN Abnormal YELLOW [facility] Glucose Ql (U) Negative Normal NEG [facility] Ketones Ql (U) Negative Normal NEG [facility] Leukocyte esterase Test strip Ql (U) Small Abnormal NEG [facility] MUCOUS PRESENT Abnormal NONE [facility] Nitrite Ql (U) Negative Normal NEG [facility] pH (U) 6.0 [pH] Normal 5.0-8.5 [facility] Protein Ql (U) 30 mg/dL Abnormal NEG [facility] R.B.CELLS 2 /hpf Normal 0-5 [facility] Specific gravity (U) [Rel density] 1.030 Normal 1.003-1.035 [facility] SQUAMOUS EPITHELIUM >27 High 0-5 [facility] TURBIDITY CLOUDY Abnormal CLEAR [facility] Urobilinogen (U) [Mass/Vol] mg/dL Normal <1.1 [facility] W.B.CELLS <1 Normal 0-5 [facility] URINE CULTUREon 04-16-2023 Bacteria identified Cx Nom (U) CULTURE RESULTS 50-100,000 ORGANISMS/ML NORMAL UROGENITAL YOGESH Normal [facility] Comment on above: Performed By: #### 2 106-3 #### [facility] ([id number]) [address] [place] [address] [place] [address] US PREG LESS THAN 14 WKS WIT H TRANSVAGINALon 04-16-2023 US PREG LESS THAN 14 WKS WITH TRANSVAGINAL US PREG LESS THAN 14 WKS WITH TRANSVAGINAL US PREG LESS THAN 14 WKS WITH TRANSVAGINAL: 04/16/2023 1:04 PM Clinical: Check dates and viability. Real-time transabdominal and transvaginal sonography pelvis performed.. No comparison. There is a single live intrauterine . [place]-rump length of 2.9 mm corresponds to 5 [...] Cook MD on 04/16/2023 6:58 PM Normal [facility] VZV IgG IA Ql (S)on 04-16-19 24 VARICELLA IgG 1.1 AI High <0.9 [facility] Comment on above: Result Comment: Interpretation-------- <0.9 Negative 0.9 - 1.0 Equivocal >1.0 Positive Performed By: #### N UM #### [facility] ([id number]) [address] [place] [address] 99077 CBC AND AUTO DIFFon 03-30-19 24 ABSOLUTE BASOPHIL 0.1 X10E9/L Normal 0.0-0.2 [facility] Comment on above: Performed By: #### C SANAM [facility], 81781-3 #### [facility] ([id number]) [address] [place] [address]2015 ABSOLUTE NEUTROPHIL 7.6 X10E9/L High 1.5-6.[address] [facility] Comment on above: Performed By: #### C OPAL MARION, 61507-1 #### [facility] ([id number]) [address] [place] [address] 39749 Basophils/100 WBC (Bld) 0.7 % Normal P [facility] Comment on above: Performed By: #### C OPAL MARION, 61295-0 #### [facility] ([id number]) [address] [place] [address] Eosinophils (Bld) [#/Vol] 0.2 10*3/uL Normal 0.0-0.4 [facility] Comment on above: Performed By: #### Doretha MARION CMP, #### [facility] ([id number]) [address] [place] [address] 85569 Eosinophils/100 WBC (Bld) 1.8 % Normal [facility] Comment on above: Performed By: #### Doretha MARION [facility], #### [facility] ([id number]) [address] [place] [address] 93528 Erythrocyte distribution width (RBC) [Ratio] 18.4 % High 11.5-15.0 [facility] Comment on above: Performed By: #### Doretha AMRION [facility], #### [facility] ([id number]) [address] [place] [address] 05026 Hematocrit (Bld) [Volume fraction] 35.8 % Normal 35-47 [facility] Comment on above: Performed By: #### Doretha MARION [facility], #### [facility] ([id number]) [address] [place] [address] 72932 Hemoglobin (Bld) [Mass/Vol] 11.7 g/dL Normal 11.7-15.5 [facility] Comment on above: Performed By: #### Doretha MARION [facility], #### [facility] ([id number]) [address] [place] [address] 18855 Lymphocytes (Bld) [#/Vol] 2.2 10*3/uL Normal 1.0-3.5 [facility] Comment on above: Performed By: #### Doretha MARION CMP, #### [facility] ([id number]) [address] [place] [address] 61429 Lymphocytes/100 WBC (Bld) 20.7 % Normal [facility] Comment on above: Performed By: #### C OPAL AMRION, #### [facility] ([id number]) [address] [place] [address] 80389 MCH (RBC) [Entitic mass] 26.2 pg Low 27-34 [facility] Comment on above: Performed By: #### Doretha MARION CMP, #### [facility] ([id number]) [address] [place] [address] 59756 MCHC (RBC) [Mass/Vol] 32.8 g/dL Normal 32-36 [facility] Comment on above: Performed By: #### Doretha MARION CMP, #### [facility] ([id number]) [address] [place] [address] 55818 MCV (RBC) [Entitic vol] 80 fL Normal 80-100 [facility] Comment on above: Performed By: #### Doretha MARION CMP, #### [facility] ([id number]) [address] [place] [address] 55580 Monocytes (Bld) [#/Vol] 0.5 10*3/uL Normal 0-0.9 [facility] Comment on above: Performed By: #### Doretha MARION CMP, #### [facility] ([id number]) [address] [place] [address] 79971 Monocytes/100 WBC (Bld) 5.2 % Normal [facility] Comment on above: Performed By: #### Doretha MARION CMP, #### [facility] ([id number]) [address] [place] [address] 24567 Neutrophils/100 WBC (Bld) 71.6 % Normal [facility] Comment on above: Performed By: #### Doretha MARION CMP, #### [facility] ([id number]) [address] [place] [address] 86183 Platelet mean volume (Bld) [Entitic vol] 8.3 fL Normal 7-12 [facility] Comment on above: Performed By: #### C SANAM CMP, #### [facility] ([id number]) [address] [place] [address] 18957 Platelets (Bld) [#/Vol] 337 10*3/uL Normal 150-450 [facility] Comment on above: Performed By: #### Doretha MARION CMP, #### [facility] ([id number]) [address] [place] [address] 19722 RBC COUNT 4.48 X10E12/L Normal 3.80-5.20 [facility] Comment on above: Performed By: #### Dorteha MARION CMP, #### [facility] ([id number]) [address] [place] [address] 77969 WBC (Bld) [#/Vol] 10.6 10*3/uL Normal 4.0-11.0 [facility] Comment on above: Performed By: #### Doretha MARION CMP, #### [facility] ([id number]) [address] [place] [address] 56926 COMPREHENSIVE METABOLIC PANE Shaji 03-30-2023 Albumin [Mass/Vol] 4.4 g/dL Normal 3.2-5.3 [facility] Comment on above: Performed By: #### C SANAM CMP, #### [facility] ([id number]) [address] [place] [address] 46520 ALP [Catalytic activity/Vol] 40 U/L Normal 39-130 [facility] Comment on above: Performed By: #### Doretha MARION CMP, #### [facility] ([id number]) [address] [place] [address] 27858 ALT [Catalytic activity/Vol] 12 U/L Normal 0-31 [facility] Comment on above: Performed By: #### C BCA, CMP, #### [facility] ([id number]) [address] [place] [address] 05551 Anion gap [Moles/Vol] 8 mmol/L Normal 5-15 [facility] Comment on above: Performed By: #### C BCA, CMP, #### [facility] ([id number]) [address] [place] [address] 08123 AST [Catalytic activity/Vol] 16 U/L Normal 0-41 [facility] Comment on above: Performed By: #### C BCA, CMP, #### [facility] ([id number]) [address] [place] [address] 43479 Bilirubin [Mass/Vol] 0.5 mg/dL Normal 0.3-1.[address] [facility] Comment on above: Performed By: #### C BCA, CMP, #### [facility] ([id number]) [address] [place] [address] 85436 Calcium [Mass/Vol] 9.2 mg/dL Normal 8.5-10.5 [facility] Comment on above: Performed By: #### C BCA, CMP, #### [facility] ([id number]) [address] [place] [address] 73325 Chloride [Moles/Vol] 105 mmol/L Normal 98-[address] [facility] Comment on above: Performed By: #### C BCA, CMP, #### [facility] ([id number]) [address] [place] [address] 95617 CO2 [Moles/Vol] 24 mmol/L Normal 22-32 [facility] Comment on above: Performed By: #### C OPAL MARION, 65344-8 #### [facility] ([id number]) [address] [place] [address] 53168 Creatinine [Mass/Vol] 0.74 mg/dL Normal 0.40-1.00 [facility] Comment on above: Result Comment: METH OD TRACEABLE TO IDMS STANDARD Performed By: #### C OPAL MARION, #### [facility] ([id number]) [address] [place] [address] 08839 eGFR (CKD-EPI) NON-RACE DEPENDENT >90 Normal >59 [facility] Comment on above: Result Comment: Reported eGFR is based on the CKD-EPI 2020 equation that does not use a race coefficient. Performed By: #### C OPAL MARION, #### [facility] ([id number]) [address] [place] [address] 67753 Glucose [Mass/Vol] 89 mg/dL Normal 65-99 [facility] Comment on above: Performed By: #### C OPAL MARION, #### [facility] ([id number]) [address] [place] [address] 33596 Potassium [Moles/Vol] 3.7 mmol/L Normal 3.5-5.0 [facility] Comment on above: Performed By: #### C OPAL MARION, #### [facility] ([id number]) [address] [place] [address] 16502 Protein [Mass/Vol] 7.4 g/dL Normal 6.0-8.0 [facility] Comment on above: Performed By: #### C OPAL MARION, #### [facility] ([id number]) [address] [place] [address] 83314 Sodium [Moles/Vol] 137 mmol/L Normal 134-146 [facility] Comment on above: Performed By: #### C BCA, CMP, 79439-4 #### [facility] ([id number]) [address] [place] [address] 51051 Urea nitrogen [Mass/Vol] 10 mg/dL Normal 5-23 [facility] Comment on above: Performed By: #### C BCA, CMP, 20434-8 #### [facility] ([id number]) [address] [place] [address] 70470 HCG ( test) Ql (U)o n 03-30-2023 Beta HCG ( test) Ql (U) Positive Abnormal NEG [facility] Comment on above: Performed By: #### 2 106-3 #### [facility] ([id number]) [address] [place] [address] 48305 HCG.beta subunit IA 3rd IS Q non 03-30-2023 HCG.beta subunit Qn 80 m[IU]/mL Normal [facility] Comment on above: Result Comment: NEW REFERENCE [...] or nontrophoblastic neoplasms. Performed By: #### C BCA, CMP, #### [facility] ([id number]) [address] [place] [address] 66765 URINE CULTUREon 03-30-2023 Bacteria identified Cx Nom (U) CULTURE RESULTS 10-50,000 ORGANISMS/mL NORMAL UROGENITAL YOGESH Normal [facility] Comment on above: Performed By: #### 6 30-4 #### [facility] ([id number]) [address] [place] [address], [address] [place] [address] URN MACROSCOPIC NURon 2023 BILIRUBIN YARI Negative Normal NEG [facility] Comment on above: Performed By: #### N UM #### [facility] ([id number]) [address] [place] [address] [place] [address] BLOOD/HGB YARI Negative Normal NEG [facility] Comment on above: Performed By: #### N UM #### [facility] ([id number]) [address] [place] [address] [place] [address] GLUCOSE YARI Negative Normal NEG [facility] Comment on above: Performed By: #### N UM #### [facility] ([id number]) [address] [place] [address], [place] [address] KETONES YARI Negative Normal NEG [facility] Comment on above: Performed By: #### N UM #### [facility] ([id number]) [address] [place] [address], [place] [address] LEUKOCYTE ESTERASE YARI Negative Normal NEG [facility] Comment on above: Performed By: #### N UM #### [facility] ([id number]) [address] [place] [address] [place] [address] NITRITE YARI Negative Normal NEG [facility] Comment on above: Performed By: #### N UM #### [facility] ([id number]) [address] [place] [address] [place] [address] PH YARI 6.0 Normal 5.0-8.5 [facility] Comment on above: Performed By: #### N UM #### [facility] ([id number]) [address] [place] [address] PROTEIN YARI Negative Normal NEG [facility] Comment on above: Performed By: #### N UM #### [facility] ([id number]) [address] [place] [address] SPECIFIC GRAVITY YARI >=1.030 Normal 1.003-1.035 [facility] Comment on above: Performed By: #### N UM #### [facility] ([id number]) [address] [place] [address] UROBILINOGEN YARI 0.2 eu/dL Normal <1.1 [facility] Comment on above: Performed By: #### N UM #### [facility] ([id number]) [address] [place] [address] [place] PREG LESS THAN 14 WKS WIT [...] Eckert MD on 03/30/2023 8:48 PM Normal [facility] Cholesterol [Mass/volume] in Serum or PlasmaOrdered By: Dar Nation on 11-28-2022 Cholesterol [Mass/Vol] 200 mg/dL 140-200 [facility] Comment on above: Chol less than 200 m g/dl low riskChol 201-239 mg/dl borderline riskChol 240 mg/dl and greater high risk Cholesterol in LDL Calc [Mas s/Vol]Ordered By: Dar Nation on 11-28-2022 Cholesterol in LDL [Mass/Vol] 75 mg/dL 0-100 [facility] Comment on above: LDL ATP III CLASSIFI CATIONLDL less than 100 mg/dL OptimalLDL 100-129 mg/dL Near or above optimalLDL 130-159 mg/dL Borderline highLDL 160-189 mg/dL HighLDL greater than 189 mg/dL Very high Cholesterol in VLDL Calc [Ma ss/Vol]Ordered By: Dar Nation on 11-28-2022 Cholesterol in VLDL [Mass/Vol] 16 mg/dL [facility] Lipid Panelon 11-28-2022 Cholesterol [Mass/Vol] 200 mg/dL Normal 140-200 [facility] Comment on above: Result Comment: Chol less than 200 mg/dl low risk Chol 201-239 mg/dl borderline risk Chol 240 mg/dl and greater high risk Performed By: #### H S TROP, CMP, ETOH, CBC, TSH3 #### [facility] [address] [place] [address] [place] Cholesterol in HDL [Mass/Vol] 109 mg/dL High 23-92 [facility] Comment on above: Result Comment: HDL CHOL ATP-III CLASSIFICATION Cardiovascular Risk HDL > or equal to 60 mg/dL LOW HDL < 40 mg/dL HIGH Performed By: #### H S TROP, CMP, ETOH, CBC, TSH3 #### [facility] [address] [place] [address] [place] Cholesterol.total/Sarah sterol in HDL [Mass ratio] 1.8 {ratio} Normal <5.0 [facility] Comment on above: Performed By: #### H S TROP, CMP, ETOH, CBC, TSH3 #### [facility] [address] [place] [address] [place] LDL Cholesterol,Calculated 75 mg/dL Normal 0-100 [facility] Comment on above: Result Comment: LDL ATP III CLASSIFICATION LDL less than 100 mg/dL Optimal LDL 100-129 mg/dL Near or above optimal LDL 130-159 mg/dL Borderline high LDL 160-189 mg/dL High LDL greater than 189 mg/dL Very high Performed By: #### H S TROP, CMP, ETOH, CBC, TSH3 #### [facility] [address] Triglyceride w/Reflex 80 mg/dL Normal 0-149 [facility] Comment on above: Result Comment: TRIG ATP III CLASSIFICATION TRIG less than 150 mg/dL Normal TRIG 150-199 mg/dL Borderline high TRIG 200-500 mg/dL High TRIG greater than 500 mg/dL Very high Standard traceable to the Center for Disease Conrtrol and Prevention (CDC) test method. Performed By: #### H S TROP, CMP, ETOH, CBC, TSH3 #### [facility] [address] VLDL CHOLESTEROL 16 mg/dL Normal [facility] Comment on above: Performed By: #### H S TROP, CMP, ETOH, CBC, TSH3 #### [facility] [address] Serum or plasma high density lipoprotein (HDL) cholesterol measurementOrdered By: Dar Nation on 11-28-2022 Cholesterol in HDL [Mass/Vol] 109 mg/dL 23-92 [facility] Comment on above: HDL CHOL ATP-III CLA SSIFICATION Cardiovascular RiskHDL > or equal to 60 mg/dL LOWHDL < 40 mg/dL HIGH Serum or plasma total choles terol/high density lipoprotein (HDL) cholesterol mass ratOrdered By: Dar Nation on 11-28-2022 Cholesterol.total/Sarah sterol in HDL [Mass ratio] 1.8 {ratio} <5.0 [facility] Thyroid Stim Hormone w/Rflxo n 11-28-2022 Thyroid Stim Hormone w/Rflx 1.79 u[iU]/mL Normal 0.45-5.33 [facility] Comment on above: Performed By: #### H S TROP, CMP, ETOH, CBC, TSH3 #### [facility] [address] Thyrotropin [Units/volume] i n Serum or PlasmaOrdered By: Dar Nation on 11-28-2022 TSH Qn 1.79 m[IU]/L 0.45-5.33 [facility] Triglyceride [Mass/volume] i n Serum or PlasmaOrdered By: Dar Nation on 11-28-2022 Triglyceride [Mass/Vol] 80 mg/dL 0-149 [facility] Comment on above: TRIG ATP III CLASSIF ICATIONTRIG less than 150 mg/dL NormalTRIG 150-199 mg/dL Borderline highTRIG 200-500 mg/dL High TRIG greater than 500 mg/dL Very highStandard traceable to the Center for Disease Conrtrol and Prevention (CDC) test method. Vitamin D 25 Hydroxy Totalon 11-28-2022 Vitamin D 25 Hydroxy Total 32.8 ng/mL Normal 30-100 [facility] Comment on above: Result Comment: JESSICA MIN D STATUS 25(OH)VITAMIN D RANGE (ng/mL) Deficient <20 Insufficient 20 to <30 Sufficient 30 to 100 Reference: Aye Palacios, Geremias YOUNG, et al. Evaluation,treatment, and prevention of vitamin D deficiency; an Endocrine Society clinical practice guideline. JCEM. 2010; 96(7):1911-30. PERFORMED BY: [place] [address] PATHOLOGIST PROOF CLERK KELLIE ALVARADO M.D. Performed By: #### H S TROP, CMP, ETOH, CBC, TSH3 #### [address] Vitamin D+Metabolites [Mass/ volume] in Serum or PlasmaOrdered By: Dar Nation on 11-28-2022 Vitamin D+Metabolites [Mass/Vol] 32.8 ng/mL 30-100 [facility] Comment on above: VITAMIN D STATUS 25( OH)VITAMIN D RANGE (ng/mL) Deficient <20 Insufficient 20 to <30Sufficient 30 to 100Reference: Aye Palacios, Geremias YOUNG, et al. Evaluation,treatment, and prevention of vitamin D deficiency; an Endocrine Society clinical practice guideline. JCEM. 2010; 96(7):1911-30. Alanine aminotransferase [En zymatic activity/volume] in Serum or PlasmaOrdered By: Sara Tripathi on 11-27-2022 ALT [Catalytic activity/Vol] 19 U/L 7-52 [facility] Albumin [Mass/volume] in Ser um or Plasma by Bromocresol green (BCG) dye binding methoOrdered By: Sara Tripathi on 11-27-2022 Albumin BCG dye [Mass/Vol] 4.2 g/dL 3.5-5.7 [facility] Alkaline phosphatase [Enzyma tic activity/volume] in Serum or PlasmaOrdered By: Sara Tripathi on 11-27-2022 ALP [Catalytic activity/Vol] 56 U/L 34-104 [facility] Amphetamine Screen Ql (U)Ord ered By: Sara Tripathi on 11-27-2022 Amphetamines Ql (U) Negative Negative [facility] Aspartate aminotransferase [ Enzymatic activity/volume] in Serum or PlasmaOrdered By: Sara Tripathi on 11-27-2022 AST [Catalytic activity/Vol] 31 U/L 13-39 [facility] Automated erythrocytes count in urine sediment (number/area)Ordered By: Sara Tripathi on 11-27-2022 RBC Auto (Urine sed) [#/Area] 5-9 [HPF] 0-4 [facility] Automated leukocytes count i n urine sediment (number/area)Ordered By: Sara Tripathi on 11-27-2022 WBC Auto (Urine sed) [#/Area] 50-100 [HPF] 0-4 [facility] Automated urine hyaline cast s count (number/volume)Ordered By: Sara Tripathi on 11-27-2022 Hyaline casts Auto (U) [#/Vol] None seen [LPF] 0-1 [facility] Barbiturates [Presence] in U rine by Screen methodOrdered By: Sara Tripathi on 11-27-2022 Barbiturates Screen Ql (U) Negative Negative [facility] Basophils Auto (Bld) [#/Vol] Ordered By: Sara Tripathi on 11-27-2022 Basophils (Bld) [#/Vol] 0.2 10*3/uL 0.0-0.2 [facility] Basophils/100 WBC Auto (Bld) Ordered By: Sara rTipathi on 11-27-2022 Basophils/100 WBC (Bld) 3.0 % . [facility] Benzodiazepines Screen Ql (U )Ordered By: Sara Tripathi on 11-27-2022 Benzodiazepines Ql (U) Negative Negative [facility] Benzoylecgonine [Presence] i n Urine by Screen methodOrdered By: Sara Tripathi on 11-27-2022 Benzoylecgonine Screen Ql (U) Negative Negative [facility] Bilirubin Test strip Ql (U)O rdered By: Sara Tripathi on 11-27-2022 Bilirubin Ql (U) Negative Negative [facility] Bilirubin.total [Mass/volume ] in Serum or PlasmaOrdered By: Sara Tripathi on 11-27-2022 Bilirubin [Mass/Vol] 0.7 mg/dL 0.3-1.[address] [facility] [address] abdomen pelvis wo conon 1 CT abdomen pelvis wo con [facility] [place] [address] CT Scan Report Signed Patient: Antoinette Recio MR#: [id number] : 1995 Acct:[id number] Age/Sex: 27 / F ADM Date: 11/27/22 Loc: ER Room: Type: [facility] ER Attending Dr: Copies to: Sara Tripathi [...] Vipul Rucker M.D.11/27/2022 11:17 AM Dictation Location: [place] [address] Transcribed By: [facility] 11/27/22 111 Dictated By: Vipul Rucker II, MD 11/27/22 111 Signed By: 11/27/22 111 Normal [facility] Calcium [Mass/volume] in Ser um or PlasmaOrdered By: Sara Tripathi on 11-27-2022 Calcium [Mass/Vol] 9.4 mg/dL 8.6-10.3 [facility] Cannabinoids [Presence] in U rine by Screen methodOrdered By: Sara Tripathi on 11-27-2022 Cannabinoids Screen Ql (U) Positive Negative [facility] Comment on above: These are unconfirme d results and should not be used for legal purposes. Drug Cut-Off Concentration: AMPH 1000 ng/mL CARMELLA 200 ng/mL GERMAN 200 ng/mL COCM 300 ng/mL OP 300 ng/mL PCP 25 ng/mL THC 20 ng/mL Carbon dioxide, total [Moles /volume] in Serum or PlasmaOrdered By: Sara Tripathi on 11-27-2022 CO2 [Moles/Vol] 24.9 mmol/L 21.0-31.0 [facility] Casts typing in urine sedime nt by light microscopyOrdered By: Sara Tripathi on 11-27-2022 Casts LM Nom (Urine sed) None seen [LPF] None Seen [facility] Chloride [Moles/volume] in S phil or PlasmaOrdered By: Sara Tripathi on 11-27-2022 Chloride [Moles/Vol] 101 mmol/L 98-107 [facility] Coarse granular casts count in urine sediment by microscopy low power field (number/aOrdered By: Sara Tripathi on 11-27-2022 Coarse Granular Casts LM.LPF (Urine sed) [#/Area] 0-1 [LPF] 0-1 [facility] Color Auto (U)Ordered By: Donna Tripathi on 11-27-2022 Color (U) Dark yellow Yellow [facility] Complete Blood Count Auto Di ffon 11-27-2022 Basophils (Bld) [#/Vol] 0.2 10*3/uL Normal 0.0-0.2 [facility] Comment on above: Result Comment: PERF ORMED BY: [place] [address] PATHOLOGIST PROOF CLERK KELLIE ALVARADO M.D. Performed By: #### H S TROP, CMP, ETOH, CBC, TSH3 #### [facility] [address] [place] [address] Basophils/100 WBC (Bld) 3.0 % Normal . [facility] Comment on above: Performed By: #### H S TROP, CMP, ETOH, CBC, TSH3 #### [facility] [address] [place] [address] Eosinophils (Bld) [#/Vol] 0.1 10*3/uL Normal 0.0-0.45 [facility] Comment on above: Performed By: #### H S TROP, CMP, ETOH, CBC, TSH3 #### [address] Eosinophils/100 WBC (Bld) 1.1 % Normal . [facility] Comment on above: Performed By: #### H S TROP, CMP, ETOH, CBC, TSH3 #### [facility] [address] [place] [address] Erythrocyte distribution width (RBC) [Ratio] 15.9 % High 11.9-15.3 [facility] Comment on above: Performed By: #### H S TROP, CMP, ETOH, CBC, TSH3 #### [facility] [address] [place] [address] Hematocrit (Bld) [Volume fraction] 38.0 % Normal 34.0-46.4 [facility] Comment on above: Performed By: #### H S TROP, CMP, ETOH, CBC, TSH3 #### [address] Hemoglobin (Bld) [Mass/Vol] 12.5 g/dL Normal 11.8-15.4 [facility] Comment on above: Performed By: #### H S TROP, CMP, ETOH, CBC, TSH3 #### [address] Lymphocytes (Bld) [#/Vol] 0.8 10*3/uL Low 1.00-4.8 [facility] Comment on above: Performed By: #### H S TROP, CMP, ETOH, CBC, TSH3 #### [address] Lymphocytes/100 WBC (Bld) 11.3 % Normal . [facility] Comment on above: Performed By: #### H S TROP, CMP, ETOH, CBC, TSH3 #### [address] MCH (RBC) [Entitic mass] 28.8 pg Normal 24.7-34.3 [facility] Comment on above: Performed By: #### H S TROP, CMP, ETOH, CBC, TSH3 #### [address] MCV (RBC) [Entitic vol] 87.5 fL Normal 80-100 [facility] Comment on above: Performed By: #### H S TROP, CMP, ETOH, CBC, TSH3 #### [address] Mean Corpuscular HGB Conc 33.0 g/dL Normal 32.0-35.0 [facility] Comment on above: Performed By: #### H S TROP, CMP, ETOH, CBC, TSH3 #### [address] Monocytes (Bld) [#/Vol] 0.6 10*3/uL Normal 0.0-0.8 [facility] Comment on above: Performed By: #### H S TROP, CMP, ETOH, CBC, TSH3 #### [address] Monocytes/100 WBC (Bld) 17.41 % Normal 0.00-20.00 [facility] Comment on above: Performed By: #### H S TROP, CMP, ETOH, CBC, TSH3 #### [address] Monocytes/100 WBC (Bld) 8.9 % Normal . [facility] Comment on above: Performed By: #### H S TROP, CMP, ETOH, CBC, TSH3 #### [address] Neutrophils (Bld) [#/Vol] 5.1 10*3/uL Normal 1.8-7.7 [facility] Comment on above: Performed By: #### H S TROP, CMP, ETOH, CBC, TSH3 #### [address] Neutrophils/100 WBC (Bld) 75.7 % Normal . [facility] Comment on above: Performed By: #### H S TROP, CMP, ETOH, CBC, TSH3 #### [address] NRBC% 0.0 /100{WBC} Normal 0-0.5 [facility] Comment on above: Performed By: #### H S TROP, CMP, ETOH, CBC, TSH3 #### [address] Platelet mean volume (Bld) [Entitic vol] 7.1 fL Normal 6.3-10.7 [facility] Comment on above: Performed By: #### H S TROP, CMP, ETOH, CBC, TSH3 #### [address] Platelets (Bld) [#/Vol] 402 10*3/uL Normal 150-450 [facility] Comment on above: Performed By: #### H S TROP, CMP, ETOH, CBC, TSH3 #### [address] RBC (Bld) [#/Vol] 4.34 10*6/uL Normal 3.60-5.00 [facility] Comment on above: Performed By: #### H S TROP, CMP, ETOH, CBC, TSH3 #### [address] WBC (Bld) [#/Vol] 6.7 10*3/uL Normal 3.8-11.6 [facility] Comment on above: Performed By: #### H S TROP, CMP, ETOH, CBC, TSH3 #### [address] Comprehensive Metabolic Pane shaji 11-27-2022 Albumin [Mass/Vol] 4.2 g/dL Normal 3.5-5.7 [facility] Comment on above: Performed By: #### H S TROP, CMP, ETOH, CBC, TSH3 #### [address] Albumin/Globulin [Mass ratio] 1.4 {ratio} Normal [facility] Comment on above: Performed By: #### H S TROP, CMP, ETOH, CBC, TSH3 #### [address] ALP [Catalytic activity/Vol] 56 U/L Normal 34-104 [facility] Comment on above: Performed By: #### H S TROP, CMP, ETOH, CBC, TSH3 #### [address] ALT [Catalytic activity/Vol] 19 U/L Normal 7-52 [facility] Comment on above: Performed By: #### H S TROP, CMP, ETOH, CBC, TSH3 #### [address] Anion gap [Moles/Vol] 15.4 mmol/L High 6.0-15.0 [facility] Comment on above: Performed By: #### H S TROP, CMP, ETOH, CBC, TSH3 #### [facility] [address] AST [Catalytic activity/Vol] 31 U/L Normal 13-39 [facility] Comment on above: Performed By: #### H S TROP, CMP, ETOH, CBC, TSH3 #### [facility] [address] Bilirubin [Mass/Vol] 0.7 mg/dL Normal 0.3-1.0 [facility] Comment on above: Performed By: #### H S TROP, CMP, ETOH, CBC, TSH3 #### [facility] [address] Calcium [Mass/Vol] 9.4 mg/dL Normal 8.6-10.3 [facility] Comment on above: Performed By: #### H S TROP, CMP, ETOH, CBC, TSH3 #### [facility] [address] Chloride [Moles/Vol] 101 mmol/L Normal 98-107 [facility] Comment on above: Performed By: #### H S TROP, CMP, ETOH, CBC, TSH3 #### [address] CO2 [Moles/Vol] 24.9 mmol/L Normal 21.0-31.0 [facility] Comment on above: Performed By: #### H S TROP, CMP, ETOH, CBC, TSH3 #### [facility] [address] [place] [address] [place] Creatinine [Mass/Vol] 0.83 mg/dL Normal 0.60-1.20 [facility] Comment on above: Performed By: #### H S TROP, CMP, ETOH, CBC, TSH3 #### [facility] [address] [place] [address] [place] Creatinine Clr Calc Pharmacy 110.58 Normal [facility] Comment on above: Performed By: #### H S TROP, CMP, ETOH, CBC, TSH3 #### [facility] [address] [place] [address] [place] GFR/1.73 sq M.predicted MDRD (S/P/Bld) [Vol rate/Area] mL/min/{1.73_m2} Normal [facility] Comment on above: Performed By: #### H S TROP, CMP, ETOH, CBC, TSH3 #### [facility] [address] Globulin (S) [Mass/Vol] 2.9 g/dL Normal [facility] Comment on above: Performed By: #### H S TROP, CMP, ETOH, CBC, TSH3 #### [facility] [address] Glucose [Mass/Vol] 82 mg/dL Normal 70-100 [facility] Comment on above: Result Comment: [facility] Glucose Reference Range is dependent on time and content of last meal. Glucose of more than 200 mg/dL in a nonstressed, ambulatory subject supports the diagnosis of Diabetes Mellitus. ADA recommended reference range Performed By: #### H S TROP, CMP, ETOH, CBC, TSH3 #### [facility] [address] Potassium [Moles/Vol] 3.3 mmol/L Low 3.5-5.1 [facility] Comment on above: Performed By: #### H S TROP, CMP, ETOH, CBC, TSH3 #### [address] Protein [Mass/Vol] 7.1 g/dL Normal 6.4-8.9 [facility] Comment on above: Performed By: #### H S TROP, CMP, ETOH, CBC, TSH3 #### [facility] [address] [place] [address] [place] Sodium [Moles/Vol] 138 mmol/L Normal 136-145 [facility] Comment on above: Performed By: #### H S TROP, CMP, ETOH, CBC, TSH3 #### [facility] [address] Urea nitrogen [Mass/Vol] 9 mg/dL Normal 7-25 [facility] Comment on above: Performed By: #### H S TROP, CMP, ETOH, CBC, TSH3 #### [facility] [address] [place] [address] Creatinine [Mass/volume] in Serum or PlasmaOrdered By: Sara Tripathi on 11-27-2022 Creatinine [Mass/Vol] 0.83 mg/dL 0.60-1.20 [facility] Dipstick and Microscopicon 1 Appearance (U) Turbid Critically abnormal Clear [facility] Comment on above: Order Comment: Name Collection Type:: Clean-Voided Midstream Performed By: #### H S TROP, CMP, ETOH, CBC, TSH3 #### [facility] [address] [place] [address] Bacteria,Urine 4+ High None Seen [facility] Comment on above: Order Comment: Name Collection Type:: Clean-Voided Midstream Performed By: #### H S TROP, CMP, ETOH, CBC, TSH3 #### [facility] [address] [place] [address] Bilirubin,Urine Negative Normal Negative [facility] Comment on above: Order Comment: Name Collection Type:: Clean-Voided Midstream Performed By: #### H S TROP, CMP, ETOH, CBC, TSH3 #### [facility] [address] [place] [address] Coarse Granular Casts,Urine 0-1 Normal 0-1 [facility] Comment on above: Order Comment: Name Collection Type:: Clean-Voided Midstream Performed By: #### H S TROP, CMP, ETOH, CBC, TSH3 #### [facility] [address] [place] [address] Color (U) Dark Yellow Critically abnormal Yellow [facility] Comment on above: Order Comment: Name Collection Type:: Clean-Voided Midstream Performed By: #### H S TROP, CMP, ETOH, CBC, TSH3 #### [facility] [address] [place] [address] Fine Granular Casts,Urine 0-1 Normal 0-1 [facility] Comment on above: Order Comment: Name Collection Type:: Clean-Voided Midstream Performed By: #### H S TROP, CMP, ETOH, CBC, TSH3 #### [facility] [address] [place] [address] Glucose Ql (U) Normal Normal Normal [facility] Comment on above: Order Comment: Name Collection Type:: Clean-Voided Midstream Performed By: #### H S TROP, CMP, ETOH, CBC, TSH3 #### [address] Hyaline Casts,Urine None Seen Normal 0-1 [facility] Comment on above: Order Comment: Name Collection Type:: Clean-Voided Midstream Performed By: #### H S TROP, CMP, ETOH, CBC, TSH3 #### [address] Ketones Ql (U) Negative Normal Negative [facility] Comment on above: Order Comment: Name Collection Type:: Clean-Voided Midstream Performed By: #### H S TROP, CMP, ETOH, CBC, TSH3 #### [address] Leukocyte esterase Test strip Ql (U) 2+ High Negative [facility] Comment on above: Order Comment: Name Collection Type:: Clean-Voided Midstream Performed By: #### H S TROP, CMP, ETOH, CBC, TSH3 #### [address] Nitrite,Urine Negative Normal Negative [facility] Comment on above: Order Comment: Name Collection Type:: Clean-Voided Midstream Performed By: #### H S TROP, CMP, ETOH, CBC, TSH3 #### [address] Occult Blood,Urine 1+ High Negative [facility] Comment on above: Order Comment: Name Collection Type:: Clean-Voided Midstream Performed By: #### H S TROP, CMP, ETOH, CBC, TSH3 #### [address] Other Casts,Urine None Seen Normal None Seen [facility] Comment on above: Order Comment: Name Collection Type:: Clean-Voided Midstream Performed By: #### H S TROP, CMP, ETOH, CBC, TSH3 #### [address] pH (U) 5.0 [pH] Normal 5.0-9.0 [facility] Comment on above: Order Comment: Name Collection Type:: Clean-Voided Midstream Performed By: #### H S TROP, CMP, ETOH, CBC, TSH3 #### [address] Protein,Urine Trace High Negative [facility] Comment on above: Order Comment: Name Collection Type:: Clean-Voided Midstream Performed By: #### H S TROP, CMP, ETOH, CBC, TSH3 #### [address] RBC,Urine 5-9 High 0-4 [facility] Comment on above: Order Comment: Name Collection Type:: Clean-Voided Midstream Performed By: #### H S TROP, CMP, ETOH, CBC, TSH3 #### [address] Specificy [place],Urine 1.023 Normal 1.001-1.030 [facility] Comment on above: Order Comment: Name Collection Type:: Clean-Voided Midstream Performed By: #### H S TROP, CMP, ETOH, CBC, TSH3 #### [address] Squamous Epithelial Cell,Urine 20-30 High 0-2 [facility] Comment on above: Order Comment: Name Collection Type:: Clean-Voided Midstream Performed By: #### H S TROP, CMP, ETOH, CBC, TSH3 #### [address] Urobilinogen,Urine Normal Normal Normal [facility] Comment on above: Order Comment: Name Collection Type:: Clean-Voided Midstream Performed By: #### H S TROP, CMP, ETOH, CBC, TSH3 #### [address] WBC,Urine 50-100 High 0-4 [facility] Comment on above: Order Comment: Name Collection Type:: Clean-Voided Midstream Performed By: #### H S TROP, CMP, ETOH, CBC, TSH3 #### [address] Drug Screen,Urineon 11-28-19 23 Amphetamine Screen,Urine Negative Normal Negative [facility] Comment on above: Performed By: #### H S TROP, CMP, ETOH, CBC, TSH3 #### [address] Barbiturate Screen,Urine Negative Normal Negative [facility] Comment on above: Performed By: #### H S TROP, CMP, ETOH, CBC, TSH3 #### [address] Benzodiazepines Screen,Urine Negative Normal Negative [facility] Comment on above: Performed By: #### H S TROP, CMP, ETOH, CBC, TSH3 #### [address] Cannabinoid Screen,Urine Positive High Negative [facility] Comment on above: Result Comment: Thes e are unconfirmed results and should not be used for legal purposes. Drug Cut-Off Concentration: AMPH 1000 ng/mL CARMELLA 200 ng/mL GERMAN 200 ng/mL COCM 300 ng/mL OP 300 ng/mL PCP 25 ng/mL THC 20 ng/mL PERFORMED BY: [place] [address] PATHOLOGIST PROOF CLERK KELLIE ALVARADO M.D. Performed By: #### H S TROP, CMP, ETOH, CBC, TSH3 #### [address] Cocaine Screen,Urine Negative Normal Negative [facility] Comment on above: Performed By: #### H S TROP, CMP, ETOH, CBC, TSH3 #### [address] Opiate Screen,Urine Negative Normal Negative [facility] Comment on above: Performed By: #### H S TROP, CMP, ETOH, CBC, TSH3 #### [address] Phencyclidine Screen,Urine Negative Normal Negative [facility] Comment on above: Performed By: #### H S TROP, CMP, ETOH, CBC, TSH3 #### [facility] [address] ECG 12 lead ECGon 11-27-2022 ECG 12 lead ECG [facility] Main [place] [address] [place] [address] Electrocardiograph Report Signed Patient: Antoinette Recio MR#: [id number] : 1995 Acct:[id number] Age/Sex: 27 / F ADM Date: 11/27/22 Loc: ER Room: Type: [facility] ER Attending Dr: Ordering Provider: Sara Tripathi MD Date of Service: 11/27/22 ECG/ECG 12 [...] By Sara Tripathi MD 11/27/22 1505 Normal [facility] Eosinophils Auto (Bld) [#/Vo l]Ordered By: Sara Tripathi on 11-27-2022 Eosinophils (Bld) [#/Vol] 0.1 10*3/uL 0.0-0.45 [facility] Eosinophils/100 WBC Auto (Bl d)Ordered By: Sara Tripathi on 11-27-2022 Eosinophils/100 WBC (Bld) 1.1 % . [facility] Erythrocyte distribution wid th Auto (RBC) [Ratio]Ordered By: Sara Tripathi on 11-27-2022 Erythrocyte distribution width (RBC) [Ratio] 15.9 % 11.9-15.3 [facility] Ethanol [Mass/volume] in Ser um or PlasmaOrdered By: Sara Tripathi on 11-27-2022 Ethanol [Mass/Vol] 26 mg/dL [facility] Ethanol [Mass/Vol] 0.026 % [facility] Ethyl Alcohol Profileon 11-09 Ethanol [Mass/Vol] 26 mg/dL Normal [facility] Comment on above: Performed By: #### H S TROP, CMP, ETOH, CBC, TSH3 #### [facility] [address] [place] [address] [place] Percent Ethanol 0.026 % Normal [facility] Comment on above: Result Comment: PERF ORMED BY: [place] [address] PATHOLOGIST PROOF CLERK KELLIE ALVARADO M.D. Performed By: #### H S TROP, CMP, ETOH, CBC, TSH3 #### [facility] [address] Fine granular cast count in urine sediment by microscopy (number/low power field )Ordered By: Sara Tripathi on 11-27-2022 Fine Granular Casts LM.LPF (Urine sed) [#/Area] 0-1 [LPF] 0-1 [facility] Globulin Calc (S) [Mass/Vol] Ordered By: Sara Tripathi on 11-27-2022 Globulin (S) [Mass/Vol] 2.9 g/dL [facility] Glucose [Mass/volume] in Ser um or PlasmaOrdered By: Sara Tripathi on 11-27-2022 Glucose [Mass/Vol] 82 mg/dL 70-100 [facility] Comment on above: ADA recommended refe rence rangeRandom Glucose Reference Range is dependent on time and content of last meal. Glucose of more than 200 mg/dL in a nonstressed, ambulatory subject supports the diagnosis of Diabetes Mellitus. HCG ( test) Fany dotson Ql (U)Ordered By: Sara Tripathi on 11-27-2022 HCG ( test) Ql (U) Negative [facility] HCG,Urineon 11-27-2022 Beta HCG ( test) Ql (U) Negative Normal [facility] Comment on above: Order Comment: Name Collection Type:: Clean-Voided Midstream Result Comment: PERF ORMED BY: [facility] [address] [place] [address] PATHOLOGIST PROOF CLERK KELLIE ALVARADO M.D. Performed By: #### H S TROP, CMP, ETOH, CBC, TSH3 #### [facility] [address] Hematocrit Auto (Bld) [Volum e fraction]Ordered By: Sara Tripathi on 11-27-2022 Hematocrit (Bld) [Volume fraction] 38.0 % 34.0-46.4 [facility] Hemoglobin [Mass/volume] in BloodOrdered By: Sara Tripathi on 11-27-2022 Hemoglobin (Bld) [Mass/Vol] 12.5 g/dL 11.8-15.4 [facility] Ketones Auto test strip (U) [Mass/Vol]Ordered By: Sara Tripathi on 11-27-2022 Ketones (U) [Mass/Vol] Negative Negative [facility] Leukocytes [#/volume] correc christelle for nucleated erythrocytes in Blood by Automated counOrdered By: Sara Tripathi on 11-27-2022 WBC corrected for nucl RBC Auto (Bld) [#/Vol] 6.7 10*3/uL 3.8-11.6 [facility] Lymphocytes Auto (Bld) [#/Vo l]Ordered By: Sara Tripathi on 11-27-2022 Lymphocytes (Bld) [#/Vol] 0.8 10*3/uL 1.00-4.8 [facility] Lymphocytes/100 WBC Auto (Bl d)Ordered By: Sara Tripathi on 11-27-2022 Lymphocytes/100 WBC (Bld) 11.3 % . [facility] MCH Auto (RBC) [Entitic mass ]Ordered By: Sara Tripathi on 11-27-2022 MCH (RBC) [Entitic mass] 28.8 pg 24.7-34.3 [facility] MCHC Auto (RBC) [Mass/Vol]Or dered By: Sara Tripathi on 11-27-2022 MCHC (RBC) [Mass/Vol] 33.0 g/dL 32.0-35.0 [facility] MCV Auto (RBC) [Entitic vol] Ordered By: Sara Tripathi on 11-27-2022 MCV (RBC) [Entitic vol] 87.5 fL 80-100 [facility] Monocyte distribution width [Entitic volume] in Blood by AutomatedOrdered By: Sara Tripathi on 11-27-2022 Monocyte distribution width Auto (Bld) [Entitic vol] 17.41 % 0.00-20.00 [facility] Monocytes Auto (Bld) [#/Vol] Ordered By: Sara Tripathi on 11-27-2022 Monocytes (Bld) [#/Vol] 0.6 10*3/uL 0.0-0.8 [facility] Monocytes/100 WBC Auto (Bld) Ordered By: Sara Tripathi on 11-27-2022 Monocytes/100 WBC (Bld) 8.9 % . [facility] Neutrophils Auto (Bld) [#/Vo l]Ordered By: Sara Tripathi on 11-27-2022 Neutrophils (Bld) [#/Vol] 5.1 10*3/uL 1.8-7.7 [facility] Neutrophils/100 WBC Auto (Bl d)Ordered By: Sara Tripathi on 11-27-2022 Neutrophils/100 WBC (Bld) 75.7 % . [facility] Nitrite Test strip Ql (U)Ord ered By: Sara Tripathi on 11-27-2022 Nitrite Ql (U) Negative Negative [facility] No Panel InformationOrdered By: Sara Tripathi on 11-27-2022 Estimated GFR (CKD-EPI) > 60.0 mL/Min [facility] Creatinine Clearance (Chem 110.58 [facility] Nucleated erythrocytes [Pres ence] in Blood by Automated countOrdered By: Sara Tripathi on 11-27-2022 Nucleated RBC Auto Ql (Bld) 0.0 /100{WBC} 0-0.5 [facility] Opiates [Presence] in Urine by Screen methodOrdered By: Sara Tripathi on 11-27-2022 Opiates Screen Ql (U) Negative Negative [facility] Phencyclidine Screen Ql (U)O rdered By: Sara Tripathi on 11-27-2022 Phencyclidine Ql (U) Negative Negative [facility] Platelet mean volume Auto (B ld) [Entitic vol]Ordered By: Sara Tripathi on 11-27-2022 Platelet mean volume (Bld) [Entitic vol] 7.1 fL 6.3-10.7 [facility] Platelets Auto (Bld) [#/Vol] Ordered By: Sara Tripathi on 11-27-2022 Platelets (Bld) [#/Vol] 402 10*3/uL 150-450 [facility] Potassium [Moles/volume] in Serum or PlasmaOrdered By: Sara Tripathi on 11-27-2022 Potassium [Moles/Vol] 3.3 mmol/L 3.5-5.1 [facility] Protein Auto test strip (U) [Mass/Vol]Ordered By: Sara Tripathi on 11-27-2022 Protein (U) [Mass/Vol] Trace mg/dL Negative [facility] Protein [Mass/volume] in Ser um or PlasmaOrdered By: Sara Tripathi on 11-27-2022 Protein [Mass/Vol] 7.1 g/dL 6.4-8.9 [facility] RBC Auto (Bld) [#/Vol]Ordere d By: Sara Tripathi on 11-27-2022 RBC (Bld) [#/Vol] 4.34 10*6/uL 3.60-5.00 [facility] Serum or plasma albumin/glob ulin mass ratioOrdered By: Sara Tripathi on 11-27-2022 Albumin/Globulin [Mass ratio] 1.4 {ratio} [facility] Serum or plasma anion gap de terminationOrdered By: Sara Tripathi on 11-27-2022 Anion gap [Moles/Vol] 15.4 mmol/L 6.0-15.0 [facility] Sodium [Moles/volume] in Ser um or PlasmaOrdered By: Sara Tripathi on 11-27-2022 Sodium [Moles/Vol] 138 mmol/L 136-145 [facility] Specific gravity Auto test s trip (U) [Rel density]Ordered By: Sara Tripathi on 11-27-2022 Specific gravity (U) [Rel density] 1.023 1.001-1.030 [facility] Squamous epithelial cells de tection in urine sediment by light microscopyOrdered By: Sara Tripathi on 11-27-2022 Epithelial cells.squamous LM Ql (Urine sed) 20-30 [HPF] 0-2 [facility] Thyroid Stimulating Hormoneo n 11-27-2022 TSH Qn 2.35 m[IU]/L Normal 0.45-5.33 [facility] Comment on above: Result Comment: PERF ORMED BY: [place] [address] PATHOLOGIST PROOF CLERK KELLIE ALVARADO M.D. Performed By: #### H S TROP, CMP, ETOH, CBC, TSH3 #### [facility] [address] [place], [place] [id number] [facility] Thyrotropin [Units/volume] i n Serum or PlasmaOrdered By: Sara Tripathi on 11-27-2022 TSH Qn 2.35 m[IU]/L 0.45-5.33 [facility] Troponin I High Sensitivityo n 11-27-2022 Troponin I High Sensitivity 3.2 pg/mL Normal 0.0-15.0 [facility] Comment on above: Result Comment: PERF ORMED BY: [place] [address] PATHOLOGIST PROOF CLERK KELLIE ALVARADO M.D. Performed By: #### H S TROP, CMP, ETOH, CBC, TSH3 #### [facility] [address] [place] [address] Troponin I.cardiac [Mass/vol ume] in Serum or Plasma by Detection limit <= 0.01 ng/Ordered By: Sara Tripathi on 11-27-2022 Troponin I.cardiac DL <= 0.01 ng/mL [Mass/Vol] 3.2 pg/mL 0.0-15.0 [facility] Urea nitrogen [Mass/volume] in Serum or PlasmaOrdered By: Sara Tripathi on 11-27-2022 Urea nitrogen [Mass/Vol] 9 mg/dL 7 [facility] Urine Cultureon 11-27-2022 Bacteria identified Cx Nom (U) ORGANISM: Escherichia coli (O:ESCCOL) Durbin Count >100,000 Aerobic GLENDA Charge (NMIC56) --- [...] RESISTANT TO ALL B-LACTAM DRUGS. PERFORMED BY: [place] [address] PATHOLOGIST PROOF CLERK KELLIE ALVARADO M.D. Normal [facility] Comment on above: Performed By: #### H S TROP, CMP, ETOH, CBC, TSH3 #### [facility] [address] [place] [address] [place] Urine bacteria detection by automated methodOrdered By: Sara Tripathi on 11-27-2022 Bacteria Auto Ql (U) 4+ None Seen [facility] Urine clarity by refractomet ry automatedOrdered By: Sara Tripathi on 11-27-2022 Clarity Refractometry automated (U) Turbid Clear [facility] Urine culture routineOrdered By: Sara Tripathi on 11-27-2022 Bacteria identified Cx Nom (U) Escherichia coli [facility] Urine glucose measurement by automated test strip (mass/volume)Ordered By: Sara Tripathi on 11-27-2022 Glucose Auto test strip (U) [Mass/Vol] Normal mg/dL Normal [facility] Urine hemoglobin detection b y automated test stripOrdered By: Sara Tripathi on 11-27-2022 Hemoglobin Auto test strip Ql (U) 1+ Negative [facility] Urine leukocyte esterase det ection by automated test stripOrdered By: Sara Tripathi on 11-27-2022 Leukocyte esterase Auto test strip Ql (U) 2+ Negative [facility] Urobilinogen Auto test strip (U) [Mass/Vol]Ordered By: Sara Tripathi on 11-27-2022 Urobilinogen (U) [Mass/Vol] Normal mg/dL Normal [facility] WBC Auto (Bld) [#/Vol]Ordere d By: Sara Tripathi on 11-27-2022 WBC (Bld) [#/Vol] 6.7 10*3/uL 3.8-11.6 [facility] XR chest 1V portableon 11-27 XR chest 1V portable [facility] [place] [address] XRay Report Signed Patient: Antoinette Recio MR#: [id number] : 1995 Acct:[id number] Age/Sex: 27 / F ADM Date: 11/27/22 Loc: ER Room: Type: [facility] ER Attending Dr: Copies to: Sara Tripathi [...] Vipul Rucker M.D.11/27/2022 11:05 AM Dictation Location: [place] [address] Transcribed By: [facility] 11/27/22 1107 Dictated By: Vipul Rucker II, MD 11/27/22 1104 Signed By: 11/27/22 1105 Normal [facility] pH Auto test strip (U)Ordere d By: Sara Tripathi on 11-27-2022 pH (U) 5.0 [pH] 5.0-9.0 [facility] Alanine aminotransferase [En zymatic activity/volume] in Serum or PlasmaOrdered By: Ji Smith on 05-11-2022 ALT [Catalytic activity/Vol] 27 U/L 7-52 [facility] Albumin [Mass/volume] in Ser um or Plasma by Bromocresol green (BCG) dye binding methoOrdered By: Ji Smith on 05-11-2022 Albumin BCG dye [Mass/Vol] 4.5 g/dL 3.5-5.7 [facility] Alkaline phosphatase [Enzyma tic activity/volume] in Serum or PlasmaOrdered By: Ji Smith on 05-11-2022 ALP [Catalytic activity/Vol] 51 U/L 34-104 [facility] Aspartate aminotransferase [ Enzymatic activity/volume] in Serum or PlasmaOrdered By: Ji Smith on 05-11-2022 AST [Catalytic activity/Vol] 33 U/L 13-39 [facility] Bilirubin.total [Mass/volume ] in Serum or PlasmaOrdered By: Ji Smith on 05-11-2022 Bilirubin [Mass/Vol] 0.7 mg/dL 0.3-1.0 [facility] Calcium [Mass/volume] in Ser um or PlasmaOrdered By: Ji Smith on 05-11-2022 Calcium [Mass/Vol] 9.7 mg/dL 8.6-10.3 [facility] Carbon dioxide, total [Moles /volume] in Serum or PlasmaOrdered By: Ji Smith on 05-11-2022 CO2 [Moles/Vol] 25.8 mmol/L 21.0-31.0 [facility] Chloride [Moles/volume] in S phil or PlasmaOrdered By: Ji Smith on 05-11-2022 Chloride [Moles/Vol] 102 mmol/L 98-107 [facility] Comprehensive Metabolic Pane shaji 05-11-2022 Albumin [Mass/Vol] 4.5 g/dL Normal 3.5-5.7 [facility] Comment on above: Performed By: #### H S TROP, CMP, ETOH, CBC, TSH3 #### [facility] [address] Albumin/Globulin [Mass ratio] 1.7 {ratio} Normal [facility] Comment on above: Performed By: #### H S TROP, CMP, ETOH, CBC, TSH3 #### [address] ALP [Catalytic activity/Vol] 51 U/L Normal 34-104 [facility] Comment on above: Performed By: #### H S TROP, CMP, ETOH, CBC, TSH3 #### [address] ALT [Catalytic activity/Vol] 27 U/L Normal 7-52 [facility] Comment on above: Performed By: #### H S TROP, CMP, ETOH, CBC, TSH3 #### [address] Anion gap [Moles/Vol] 13.8 mmol/L Normal 6.0-15.0 [facility] Comment on above: Performed By: #### H S TROP, CMP, ETOH, CBC, TSH3 #### [address] AST [Catalytic activity/Vol] 33 U/L Normal 13-39 [facility] Comment on above: Performed By: #### H S TROP, CMP, ETOH, CBC, TSH3 #### [facility] [address] [place] [address] Bilirubin [Mass/Vol] 0.7 mg/dL Normal 0.3-1.0 [facility] Comment on above: Performed By: #### H S TROP, CMP, ETOH, CBC, TSH3 #### [place] [address] [place] Calcium [Mass/Vol] 9.7 mg/dL Normal 8.6-10.3 [facility] Comment on above: Performed By: #### H S TROP, CMP, ETOH, CBC, TSH3 #### [facility] [address] Chloride [Moles/Vol] 102 mmol/L Normal 98-107 [facility] Comment on above: Performed By: #### H S TROP, CMP, ETOH, CBC, TSH3 #### [facility] [address] CO2 [Moles/Vol] 25.8 mmol/L Normal 21.0-31.0 [facility] Comment on above: Performed By: #### H S TROP, CMP, ETOH, CBC, TSH3 #### [address] Creatinine [Mass/Vol] 0.68 mg/dL Normal 0.60-1.20 [facility] Comment on above: Performed By: #### H S TROP, CMP, ETOH, CBC, TSH3 #### [address] Creatinine Clr Calc Pharmacy 129.74 [facility] Comment on above: Result Comment: PERF ORMED BY: [place] [address] PATHOLOGIST PROOF CLERK KELLIE ALVARADO M.D. Performed By: #### H S TROP, CMP, ETOH, CBC, TSH3 #### [address] GFR/1.73 sq M.predicted MDRD (S/P/Bld) [Vol rate/Area] mL/min/{1.73_m2} [facility] Comment on above: Performed By: #### H S TROP, CMP, ETOH, CBC, TSH3 #### [facility] [address] Globulin (S) [Mass/Vol] 2.7 g/dL Normal [facility] Comment on above: Performed By: #### H S TROP, CMP, ETOH, CBC, TSH3 #### [facility] [address] [place] [address] [place] Glucose [Mass/Vol] 93 mg/dL Normal 70-100 [facility] Comment on above: Result Comment: [place] Glucose Reference Range is dependent on time and content of last meal. Glucose of more than 200 mg/dL in a nonstressed, ambulatory subject supports the diagnosis of Diabetes Mellitus. ADA recommended reference range Performed By: #### H S TROP, CMP, ETOH, CBC, TSH3 #### [facility] [address] Potassium [Moles/Vol] 3.6 mmol/L Normal 3.5-5.1 [facility] Comment on above: Performed By: #### H S TROP, CMP, ETOH, CBC, TSH3 #### [facility] [address] Protein [Mass/Vol] 7.2 g/dL Normal 6.4-8.9 [facility] Comment on above: Performed By: #### H S TROP, CMP, ETOH, CBC, TSH3 #### [facility] [address] [place] [address] [place] Sodium [Moles/Vol] 138 mmol/L Normal 136-145 [facility] Comment on above: Performed By: #### H S TROP, CMP, ETOH, CBC, TSH3 #### [facility] [address] [place] [address] [place] Urea nitrogen [Mass/Vol] 11 mg/dL Normal 7-25 [facility] Comment on above: Performed By: #### H S TROP, CMP, ETOH, CBC, TSH3 #### [facility] [address] [place] [address] [place] Creatinine [Mass/volume] in Serum or PlasmaOrdered By: Ji Smith on 05-11-2022 Creatinine [Mass/Vol] 0.68 mg/dL 0.60-1.20 [facility] Globulin Calc (S) [Mass/Vol] Ordered By: Ji Smith on 05-11-2022 Globulin (S) [Mass/Vol] 2.7 g/dL [facility] Glucose [Mass/volume] in Ser um or PlasmaOrdered By: Ji Smith on 05-11-2022 Glucose [Mass/Vol] 93 mg/dL 70-100 [facility] Comment on above: ADA recommended refe rence rangeRandom Glucose Reference Range is dependent on time and content of last meal. Glucose of more than 200 mg/dL in a nonstressed, ambulatory subject supports the diagnosis of Diabetes Mellitus. No Panel InformationOrdered By: Ji Smith on 05-11-2022 Estimated GFR (CKD-EPI) > 60.0 mL/Min [facility] Creatinine Clearance (Chem 129.74 [facility] Potassium [Moles/volume] in Serum or PlasmaOrdered By: Ji Smith on 05-11-2022 Potassium [Moles/Vol] 3.6 mmol/L 3.5-5.1 [facility] Protein [Mass/volume] in Ser um or PlasmaOrdered By: Ji Smith on 05-11-2022 Protein [Mass/Vol] 7.2 g/dL 6.4-8.9 [facility] Serum or plasma albumin/glob ulin mass ratioOrdered By: Ji Smith on 05-11-2022 Albumin/Globulin [Mass ratio] 1.7 {ratio} [facility] Serum or plasma anion gap de terminationOrdered By: Ji Smith on 05-11-2022 Anion gap [Moles/Vol] 13.8 mmol/L 6.0-15.0 [facility] Sodium [Moles/volume] in Ser um or PlasmaOrdered By: Ji Smith on 05-11-2022 Sodium [Moles/Vol] 138 mmol/L 136-145 [facility] Urea nitrogen [Mass/volume] in Serum or PlasmaOrdered By: Ji Smith on 05-11-2022 Urea nitrogen [Mass/Vol] 11 mg/dL 7-25 [facility] Acetaminophenon 05-09-2022 Acetaminophen [Mass/Vol] 1.1 ug/mL Low 10.0-30.0 [facility] Comment on above: Result Comment: PERF ORMED BY: [place] [address] PATHOLOGIST PROOF CLERK KELLIE ALVARADO M.D. Performed By: #### A CET, JAMIE #### [address] Acetaminophen [Mass/volume] in Serum or PlasmaOrdered By: Henry Hernandez on 05-09-2022 Acetaminophen [Mass/Vol] 1.1 ug/mL 10.0-30.0 [facility] Alanine aminotransferase [En zymatic activity/volume] in Serum or PlasmaOrdered By: Henry Hernandez on 05-09-2022 ALT [Catalytic activity/Vol] 40 U/L 7-52 [facility] Albumin [Mass/volume] in Ser um or Plasma by Bromocresol green (BCG) dye binding methoOrdered By: Henry Hernandez on 05-09-2022 Albumin BCG dye [Mass/Vol] 5.0 g/dL 3.5-5.7 [facility] Alkaline phosphatase [Enzyma tic activity/volume] in Serum or PlasmaOrdered By: Henry Hernandez on 05-09-2022 ALP [Catalytic activity/Vol] 61 U/L 34-104 [facility] Amphetamine Screen Ql (U)Ord ered By: Henry Hernandez on 05-09-2022 Amphetamines Ql (U) Negative Negative [facility] Aspartate aminotransferase [ Enzymatic activity/volume] in Serum or PlasmaOrdered By: Henry Hernandez on 05-09-2022 AST [Catalytic activity/Vol] 71 U/L 13-39 [facility] Automated epithelial cells c ount in urine sediment (number/area)Ordered By: Henry Hernandez on 05-09-2022 Epithelial cells Auto (Urine sed) [#/Area] 0-1 [HPF] 0-2 [facility] Automated erythrocytes count in urine sediment (number/area)Ordered By: Henry Hernandez on 05-09-2022 RBC Auto (Urine sed) [#/Area] 3-4 [HPF] 0-4 [facility] Automated leukocytes count i n urine sediment (number/area)Ordered By: Henry Hernandez on 05-09-2022 WBC Auto (Urine sed) [#/Area] 0-1 [HPF] 0-4 [facility] Barbiturates [Presence] in U rine by Screen methodOrdered By: Henry Hernandez on 05-09-2022 Barbiturates Screen Ql (U) Negative Negative [facility] Basophils Auto (Bld) [#/Vol] Ordered By: Henry Hernandez on 05-09-2022 Basophils (Bld) [#/Vol] 0.1 10*3/uL 0.0-0.2 [facility] Basophils/100 WBC Auto (Bld) Ordered By: Henry Hernandez on 05-09-2022 Basophils/100 WBC (Bld) 0.9 % . [facility] Benzodiazepines Screen Ql (U )Ordered By: Henry Hernandez on 05-09-2022 Benzodiazepines Ql (U) Negative Negative [facility] Benzoylecgonine [Presence] i n Urine by Screen methodOrdered By: Henry Hernandez on 05-09-2022 Benzoylecgonine Screen Ql (U) Negative Negative [facility] Bilirubin Test strip Ql (U)O rdered By: Henry Hernandez on 05-09-2022 Bilirubin Ql (U) Negative Negative [facility] Bilirubin.total [Mass/volume ] in Serum or PlasmaOrdered By: Henry Hernandez on 05-09-2022 Bilirubin [Mass/Vol] 0.4 mg/dL 0.3-1.0 [facility] Calcium [Mass/volume] in Ser um or PlasmaOrdered By: Henry Hernandez on 05-09-2022 Calcium [Mass/Vol] 9.4 mg/dL 8.6-10.3 [facility] Cannabinoids [Presence] in U rine by Screen methodOrdered By: Henry Hernandez on 05-09-2022 Cannabinoids Screen Ql (U) Positive Negative [facility] Comment on above: These are unconfirme d results and should not be used for legal purposes. Drug Cut-Off Concentration: AMPH 1000 ng/mL CARMELLA 200 ng/mL GERMAN 200 ng/mL COCM 300 ng/mL OP 300 ng/mL PCP 25 ng/mL THC 20 ng/mL Carbon dioxide, total [Moles /volume] in Serum or PlasmaOrdered By: Henry Hernandez on 05-09-2022 CO2 [Moles/Vol] 24.5 mmol/L 21.0-31.0 [facility] Chloride [Moles/volume] in S phil or PlasmaOrdered By: Henry Hernandez on 05-09-2022 Chloride [Moles/Vol] 102 mmol/L 98-107 [facility] Cholesterol [Mass/volume] in Serum or PlasmaOrdered By: Ji Smith on 05-09-2022 Cholesterol [Mass/Vol] 336 mg/dL 140-200 [facility] Comment on above: Chol less than 200 m g/dl low riskChol 201-239 mg/dl borderline riskChol 240 mg/dl and greater high risk Cholesterol in LDL Calc [Mas s/Vol]Ordered By: Ji Smith on 05-09-2022 Cholesterol in LDL [Mass/Vol] 133 mg/dL 0-100 [facility] Comment on above: LDL ATP III CLASSIFI CATIONLDL less than 100 mg/dL OptimalLDL 100-129 mg/dL Near or above optimalLDL 130-159 mg/dL Borderline highLDL 160-189 mg/dL HighLDL greater than 189 mg/dL Very high Cholesterol in VLDL Calc [Ma ss/Vol]Ordered By: Ji Smith on 05-09-2022 Cholesterol in VLDL [Mass/Vol] 21 mg/dL [facility] Color Auto (U)Ordered By: Valerie Hernandez on 05-09-2022 Color (U) Yellow Yellow [facility] Complete Blood Count Auto Di ffon 05-09-2022 Basophils (Bld) [#/Vol] 0.1 10*3/uL Normal 0.0-0.2 [facility] Comment on above: Result Comment: PERF ORMED BY: [facility] [address] [place] [address] PATHOLOGIST PROOF CLERK KELLIE ALVARADO M.D. Performed By: #### H S TROP, CMP, ETOH, CBC, TSH3 #### [address] Basophils/100 WBC (Bld) 0.9 % Normal . [facility] Comment on above: Performed By: #### H S TROP, CMP, ETOH, CBC, TSH3 #### [address] Eosinophils (Bld) [#/Vol] 0.1 10*3/uL Normal 0.0-0.45 [facility] Comment on above: Performed By: #### H S TROP, CMP, ETOH, CBC, TSH3 #### [address] Eosinophils/100 WBC (Bld) 1.3 % Normal . [facility] Comment on above: Performed By: #### H S TROP, CMP, ETOH, CBC, TSH3 #### [address] Erythrocyte distribution width (RBC) [Ratio] 17.8 % High 11.9-15.3 [facility] Comment on above: Performed By: #### H S TROP, CMP, ETOH, CBC, TSH3 #### [address] Hematocrit (Bld) [Volume fraction] 40.2 % Normal 34.0-46.4 [facility] Comment on above: Performed By: #### H S TROP, CMP, ETOH, CBC, TSH3 #### [address] Hemoglobin (Bld) [Mass/Vol] 13.1 g/dL Normal 11.8-15.4 [facility] Comment on above: Performed By: #### H S TROP, CMP, ETOH, CBC, TSH3 #### [address] Lymphocytes (Bld) [#/Vol] 1.4 10*3/uL Normal 1.00-4.8 [facility] Comment on above: Performed By: #### H S TROP, CMP, ETOH, CBC, TSH3 #### [address] Lymphocytes/100 WBC (Bld) 22.7 % Normal . [facility] Comment on above: Performed By: #### H S TROP, CMP, ETOH, CBC, TSH3 #### [address] MCH (RBC) [Entitic mass] 29.4 pg Normal 24.7-34.3 [facility] Comment on above: Performed By: #### H S TROP, CMP, ETOH, CBC, TSH3 #### [address] MCV (RBC) [Entitic vol] 90.0 fL Normal 80-100 [facility] Comment on above: Performed By: #### H S TROP, CMP, ETOH, CBC, TSH3 #### [address] Mean Corpuscular HGB Conc 32.7 g/dL Normal 32.0-35.0 [facility] Comment on above: Performed By: #### H S TROP, CMP, ETOH, CBC, TSH3 #### [address] Monocytes (Bld) [#/Vol] 0.4 10*3/uL Normal 0.0-0.8 [facility] Comment on above: Performed By: #### H S TROP, CMP, ETOH, CBC, TSH3 #### [address] Monocytes/100 WBC (Bld) 15.97 % Normal 0.00-20.00 [facility] Comment on above: Performed By: #### H S TROP, CMP, ETOH, CBC, TSH3 #### [address] Monocytes/100 WBC (Bld) 6.5 % Normal . [facility] Comment on above: Performed By: #### H S TROP, CMP, ETOH, CBC, TSH3 #### [address] Neutrophils (Bld) [#/Vol] 4.3 10*3/uL Normal 1.8-7.7 [facility] Comment on above: Performed By: #### H S TROP, CMP, ETOH, CBC, TSH3 #### [address] Neutrophils/100 WBC (Bld) 68.6 % Normal . [facility] Comment on above: Performed By: #### H S TROP, CMP, ETOH, CBC, TSH3 #### [address] NRBC% 0.0 /100{WBC} Normal 0-0.5 [facility] Comment on above: Performed By: #### H S TROP, CMP, ETOH, CBC, TSH3 #### [address] Platelet mean volume (Bld) [Entitic vol] 6.7 fL Normal 6.3-10.7 [facility] Comment on above: Performed By: #### H S TROP, CMP, ETOH, CBC, TSH3 #### [place] [address] [place] Platelets (Bld) [#/Vol] 330 10*3/uL Normal 150-450 [facility] Comment on above: Performed By: #### H S TROP, CMP, ETOH, CBC, TSH3 #### [place] [address] [place] RBC (Bld) [#/Vol] 4.46 10*6/uL Normal 3.60-5.00 [facility] Comment on above: Performed By: #### H S TROP, CMP, ETOH, CBC, TSH3 #### [place] [address] [place] WBC (Bld) [#/Vol] 6.3 10*3/uL Normal 3.8-11.6 [facility] Comment on above: Performed By: #### H S TROP, CMP, ETOH, CBC, TSH3 #### [address] [place] [address] [place] Comprehensive Metabolic Pane shaji 05-09-2022 Albumin [Mass/Vol] 5.0 g/dL Normal 3.5-5.7 [facility] Comment on above: Performed By: #### H S TROP, CMP, ETOH, CBC, TSH3 #### [address] Albumin/Globulin [Mass ratio] 1.8 {ratio} Normal [facility] Comment on above: Performed By: #### H S TROP, CMP, ETOH, CBC, TSH3 #### [address] ALP [Catalytic activity/Vol] 61 U/L Normal 34-104 [facility] Comment on above: Performed By: #### H S TROP, CMP, ETOH, CBC, TSH3 #### [address] ALT [Catalytic activity/Vol] 40 U/L Normal 7-52 [facility] Comment on above: Performed By: #### H S TROP, CMP, ETOH, CBC, TSH3 #### [address] Anion gap [Moles/Vol] 18.4 mmol/L High 6.0-15.0 [facility] Comment on above: Performed By: #### H S TROP, CMP, ETOH, CBC, TSH3 #### [address] AST [Catalytic activity/Vol] 71 U/L High 13-39 [facility] Comment on above: Performed By: #### H S TROP, CMP, ETOH, CBC, TSH3 #### [place] [address] [place] Bilirubin [Mass/Vol] 0.4 mg/dL Normal 0.3-1.0 [facility] Comment on above: Performed By: #### H S TROP, CMP, ETOH, CBC, TSH3 #### [address] Calcium [Mass/Vol] 9.4 mg/dL Normal 8.6-10.3 [facility] Comment on above: Performed By: #### H S TROP, CMP, ETOH, CBC, TSH3 #### [facility] [address] Chloride [Moles/Vol] 102 mmol/L Normal 98-107 [facility] Comment on above: Performed By: #### H S TROP, CMP, ETOH, CBC, TSH3 #### [facility] [address] CO2 [Moles/Vol] 24.5 mmol/L Normal 21.0-31.0 [facility] Comment on above: Performed By: #### H S TROP, CMP, ETOH, CBC, TSH3 #### [address] Creatinine [Mass/Vol] 0.76 mg/dL Normal 0.60-1.20 [facility] Comment on above: Performed By: #### H S TROP, CMP, ETOH, CBC, TSH3 #### [address] Creatinine Clr Calc Pharmacy 114.17 Normal [facility] Comment on above: Result Comment: PERF ORMED BY: [place] [address] PATHOLOGIST PROOF CLERK KELLIE ALVARADO M.D. Performed By: #### H S TROP, CMP, ETOH, CBC, TSH3 #### [address] GFR/1.73 sq M.predicted MDRD (S/P/Bld) [Vol rate/Area] mL/min/{1.73_m2} [facility] Comment on above: Performed By: #### H S TROP, CMP, ETOH, CBC, TSH3 #### [address] Globulin (S) [Mass/Vol] 2.8 g/dL Normal [facility] Comment on above: Performed By: #### H S TROP, CMP, ETOH, CBC, TSH3 #### [facility] [address] [place] [address] [place] Glucose [Mass/Vol] 85 mg/dL Normal 70-100 [facility] Comment on above: Result Comment: [facility] Glucose Reference Range is dependent on time and content of last meal. Glucose of more than 200 mg/dL in a nonstressed, ambulatory subject supports the diagnosis of Diabetes Mellitus. ADA recommended reference range Performed By: #### H S TROP, CMP, ETOH, CBC, TSH3 #### [facility] [address] Potassium [Moles/Vol] 3.9 mmol/L Normal 3.5-5.1 [facility] Comment on above: Performed By: #### H S TROP, CMP, ETOH, CBC, TSH3 #### [facility] [address] Protein [Mass/Vol] 7.8 g/dL Normal 6.4-8.9 [facility] Comment on above: Performed By: #### H S TROP, CMP, ETOH, CBC, TSH3 #### [facility] [address] [place] [address] [place] Sodium [Moles/Vol] 141 mmol/L Normal 136-145 [facility] Comment on above: Performed By: #### H S TROP, CMP, ETOH, CBC, TSH3 #### [place] [address] [place] Urea nitrogen [Mass/Vol] 11 mg/dL Normal 7-25 [facility] Comment on above: Performed By: #### H S TROP, CMP, ETOH, CBC, TSH3 #### [facility] [address] [place] [address] [place] Creatinine [Mass/volume] in Serum or PlasmaOrdered By: Henry Hernandez on 05-09-2022 Creatinine [Mass/Vol] 0.76 mg/dL 0.60-1.20 [facility] Dipstick and Microscopicon 0 05-09-2022 Appearance (U) Clear Normal Clear [facility] Comment on above: Order Comment: Name Collection Type:: Clean-Voided Midstream Performed By: #### H S TROP, CMP, ETOH, CBC, TSH3 #### [facility] [address] [place] [address] [place] Bacteria,Urine None Seen Normal None Seen [facility] Comment on above: Order Comment: Name Collection Type:: Clean-Voided Midstream Performed By: #### H S TROP, CMP, ETOH, CBC, TSH3 #### [facility] [address] [place] [address] [place] Bilirubin,Urine Negative Normal Negative [facility] Comment on above: Order Comment: Name Collection Type:: Clean-Voided Midstream Performed By: #### H S TROP, CMP, ETOH, CBC, TSH3 #### [facility] [address] [place] [address] Color (U) Yellow Normal Yellow [facility] Comment on above: Order Comment: Name Collection Type:: Clean-Voided Midstream Performed By: #### H S TROP, CMP, ETOH, CBC, TSH3 #### [facility] [address] [place] [address] [place] Glucose Ql (U) Normal Normal Normal [facility] Comment on above: Order Comment: Name Collection Type:: Clean-Voided Midstream Performed By: #### H S TROP, CMP, ETOH, CBC, TSH3 #### [facility] [address] [place] [address] [place] Ketones Ql (U) Trace High Negative [facility] Comment on above: Order Comment: Name Collection Type:: Clean-Voided Midstream Performed By: #### H S TROP, CMP, ETOH, CBC, TSH3 #### [facility] [address] [place] [address] [place] Leukocyte esterase Test strip Ql (U) 1+ High Negative [facility] Comment on above: Order Comment: Name Collection Type:: Clean-Voided Midstream Performed By: #### H S TROP, CMP, ETOH, CBC, TSH3 #### [facility] [address] [place] [address] [place] Nitrite,Urine Negative Normal Negative [facility] Comment on above: Order Comment: Name Collection Type:: Clean-Voided Midstream Performed By: #### H S TROP, CMP, ETOH, CBC, TSH3 #### [address] Occult Blood,Urine 1+ High Negative [facility] Comment on above: Order Comment: Name Collection Type:: Clean-Voided Midstream Performed By: #### H S TROP, CMP, ETOH, CBC, TSH3 #### [address] pH (U) 5.5 [pH] Normal 5.0-9.0 [facility] Comment on above: Order Comment: Name Collection Type:: Clean-Voided Midstream Performed By: #### H S TROP, CMP, ETOH, CBC, TSH3 #### [address] Protein (U) [Mass/Vol] 30 mg/dL High Negative [facility] Comment on above: Order Comment: Name Collection Type:: Clean-Voided Midstream Performed By: #### H S TROP, CMP, ETOH, CBC, TSH3 #### [address] RBC,Urine 3-4 Normal 0-4 [facility] Comment on above: Order Comment: Name Collection Type:: Clean-Voided Midstream Performed By: #### H S TROP, CMP, ETOH, CBC, TSH3 #### [address] Specificy [place],Urine 1.013 Normal 1.001-1.030 [facility] Comment on above: Order Comment: Name Collection Type:: Clean-Voided Midstream Performed By: #### H S TROP, CMP, ETOH, CBC, TSH3 #### [address] Squamous Epithelial Cell,Urine 0-1 Normal 0-2 [facility] Comment on above: Order Comment: Name Collection Type:: Clean-Voided Midstream Performed By: #### H S TROP, CMP, ETOH, CBC, TSH3 #### [address] Urobilinogen,Urine Normal Normal Normal [facility] Comment on above: Order Comment: Name Collection Type:: Clean-Voided Midstream Performed By: #### H S TROP, CMP, ETOH, CBC, TSH3 #### [address] WBC LM.HPF (Urine sed) [#/Area] 0 /[HPF] Normal 0-4 [facility] Comment on above: Order Comment: Name Collection Type:: Clean-Voided Midstream Performed By: #### H S TROP, CMP, ETOH, CBC, TSH3 #### [address] Drug Screen,Urineon 05-10-19 Amphetamine Screen,Urine Negative Normal Negative [facility] Comment on above: Performed By: #### U HCG, URDS, ADDONUAPLUS #### [address] Barbiturate Screen,Urine Negative Normal Negative [facility] Comment on above: Performed By: #### U HCG, URDS, ADDONUAPLUS #### [address] Benzodiazepines Screen,Urine Negative Normal Negative [facility] Comment on above: Performed By: #### U HCG, URDS, ADDONUAPLUS #### [address] Cannabinoid Screen,Urine Positive High Negative [facility] Comment on above: Result Comment: Thes e are unconfirmed results and should not be used for legal purposes. Drug Cut-Off Concentration: AMPH 1000 ng/mL CARMELLA 200 ng/mL GERMAN 200 ng/mL COCM 300 ng/mL OP 300 ng/mL PCP 25 ng/mL THC 20 ng/mL PERFORMED BY: [place] [address] PATHOLOGIST PROOF CLERK KELLIE ALVARADO M.D. Performed By: #### U HCG, URDS, ADDONUAPLUS #### [address] Cocaine Screen,Urine Negative Normal Negative [facility] Comment on above: Performed By: #### U HCG, URDS, ADDONUAPLUS #### [facility] [address] Opiate Screen,Urine Negative Normal Negative [facility] Comment on above: Performed By: #### U HCG, URDS, ADDONUAPLUS #### [facility] [address] Phencyclidine Screen,Urine Negative Normal Negative [facility] Comment on above: Performed By: #### U HCG, URDS, ADDONUAPLUS #### [facility] [address] ECG 12 lead ECGon 05-09-2022 ECG 12 lead ECG [facility] [place] [address] [place] [address] Electrocardiograph Report Signed Patient: Antoinette Recio MR#: [id number] : 1995 Acct:[id number] Age/Sex: 27 / F ADM Date: 05/09/22 Loc: Room: [address] [place] [address] Type: ADM IN Attending Dr: Tiana Smith [...] ms Normal sinus rhythm Confirmed by Henry Hernandez DO ([id number]) on 05/09/2022 4:07:02 AM Referred By: Electronically Signed By:Henry Hernandez DO Transcribed By: MUS Signed By Henry Hernandez DO [id number] [facility] Eosinophils Auto (Bld) [#/Vo l]Ordered By: Henry Hernandez on 05-09-2022 Eosinophils (Bld) [#/Vol] 0.1 10*3/uL 0.0-0.45 [facility] Eosinophils/100 WBC Auto (Bl d)Ordered By: Henry Hernandez on 05-09-2022 Eosinophils/100 WBC (Bld) 1.3 % . [facility] Erythrocyte distribution wid th Auto (RBC) [Ratio]Ordered By: Henry Hernandez on 05-09-2022 Erythrocyte distribution width (RBC) [Ratio] 17.8 % 11.9-15.3 [facility] Ethanol [Mass/volume] in Ser um or PlasmaOrdered By: Henry Hernandez on 05-09-2022 Ethanol [Mass/Vol] 302 mg/dL [facility] Ethanol [Mass/Vol] 0.302 % [facility] Ethyl Alcohol Profileon 04-11 Ethanol [Mass/Vol] 302 mg/dL Normal [facility] Comment on above: Performed By: #### H S TROP, CMP, ETOH, CBC, TSH3 #### [facility] [address] Percent Ethanol 0.302 % Normal [facility] Comment on above: Result Comment: PERF ORMED BY: [place] [address] PATHOLOGIST PROOF CLERK KELLIE ALVARADO M.D. Performed By: #### H S TROP, CMP, ETOH, CBC, TSH3 #### [facility] [address] Globulin Calc (S) [Mass/Vol] Ordered By: Henry Hernandez on 05-09-2022 Globulin (S) [Mass/Vol] 2.8 g/dL [facility] Glucose [Mass/volume] in Ser um or PlasmaOrdered By: Henry Hernandez on 05-09-2022 Glucose [Mass/Vol] 85 mg/dL 70-100 [facility] Comment on above: ADA recommended refe rence rangeRandom Glucose Reference Range is dependent on time and content of last meal. Glucose of more than 200 mg/dL in a nonstressed, ambulatory subject supports the diagnosis of Diabetes Mellitus. HCG ( test) IA.rapi d Ql (U)Ordered By: Henry Hernandez on 05-09-2022 HCG ( test) Ql (U) Negative [facility] HCG,Urineon 05-09-2022 Beta HCG ( test) Ql (U) Negative Normal [facility] Comment on above: Order Comment: Name Collection Type:: Clean-Voided Midstream Result Comment: PERF ORMED BY: [place] [address] PATHOLOGIST PROOF CLERK KELLIE ALVARADO M.D. Performed By: #### H S TROP, CMP, ETOH, CBC, TSH3 #### [facility] [address] [place] [id number] [facility] Hematocrit Auto (Bld) [Volum e fraction]Ordered By: Henry Hernandez on 05-09-2022 Hematocrit (Bld) [Volume fraction] 40.2 % 34.0-46.4 [facility] Hemoglobin [Mass/volume] in BloodOrdered By: eHnry Hernandez on 05-09-2022 Hemoglobin (Bld) [Mass/Vol] 13.1 g/dL 11.8-15.4 [facility] Ketones Auto test strip (U) [Mass/Vol]Ordered By: Henry Hernandez on 05-09-2022 Ketones (U) [Mass/Vol] Trace Negative [facility] Leukocytes [#/volume] correc christelle for nucleated erythrocytes in Blood by Automated counOrdered By: Henry Hernandez on 05-09-2022 WBC corrected for nucl RBC Auto (Bld) [#/Vol] 6.3 10*3/uL 3.8-11.6 [facility] Lipid Panelon 05-09-2022 Cholesterol [Mass/Vol] 336 mg/dL High 140-200 [facility] Comment on above: Order Comment: FASTI NG Y Comment USE FROM ER PLEASE Result Comment: Chol less than 200 mg/dl low risk Chol 201-239 mg/dl borderline risk Chol 240 mg/dl and greater high risk Performed By: #### H S TROP, CMP, ETOH, CBC, TSH3 #### [facility] [address] [place] [address] [facility] Cholesterol in HDL [Mass/Vol] 182 mg/dL High 35-85 [facility] Comment on above: Order Comment: FASTI NG Y Comment USE FROM ER PLEASE Result Comment: HDL CHOL ATP-III CLASSIFICATION Cardiovascular Risk HDL > or equal to 60 mg/dL LOW HDL < 40 mg/dL HIGH Performed By: #### H S TROP, CMP, ETOH, CBC, TSH3 #### [facility] [address] Cholesterol.total/Sarah sterol in HDL [Mass ratio] 1.8 {ratio} Normal <5.0 [facility] Comment on above: Order Comment: FRANKIE Shine Comment USE FROM ER PLEASE Performed By: #### H S TROP, CMP, ETOH, CBC, TSH3 #### [facility] [address] LDL Cholesterol,Calculated 133 mg/dL High 0-100 [facility] Comment on above: Order Comment: FRANKIE Shine Comment USE FROM ER PLEASE Result Comment: LDL ATP III CLASSIFICATION LDL less than 100 mg/dL Optimal LDL 100-129 mg/dL Near or above optimal LDL 130-159 mg/dL Borderline high LDL 160-189 mg/dL High LDL greater than 189 mg/dL Very high Performed By: #### H S TROP, CMP, ETOH, CBC, TSH3 #### [facility] [address] Triglyceride w/Reflex 107 mg/dL Normal 0-149 [facility] Comment on above: Order Comment: FRANKIE [...] S TROP, CMP, ETOH, CBC, TSH3 #### [facility] [address] VLDL CHOLESTEROL 21 mg/dL Normal [facility] Comment on above: Order Comment: FRANKIE Shine Comment USE FROM ER PLEASE Performed By: #### H S TROP, CMP, ETOH, CBC, TSH3 #### [facility] [address] [place] [address] [place] Lymphocytes Auto (Bld) [#/Vo l]Ordered By: Henry Hernandez on 05-09-2022 Lymphocytes (Bld) [#/Vol] 1.4 10*3/uL 1.00-4.8 [facility] Lymphocytes/100 WBC Auto (Bl d)Ordered By: Henry Hernandez on 05-09-2022 Lymphocytes/100 WBC (Bld) 22.7 % . [facility] MCH Auto (RBC) [Entitic mass ]Ordered By: Henry Hernandez on 05-09-2022 MCH (RBC) [Entitic mass] 29.4 pg 24.7-34.3 [facility] MCHC Auto (RBC) [Mass/Vol]Or dered By: Henry Hernandez on 05-09-2022 MCHC (RBC) [Mass/Vol] 32.7 g/dL 32.0-35.0 [facility] MCV Auto (RBC) [Entitic vol] Ordered By: Henry Hernandez on 05-09-2022 MCV (RBC) [Entitic vol] 90.0 fL 80-100 [facility] Monocyte distribution width [Entitic volume] in Blood by AutomatedOrdered By: Henry Hernandez on 05-09-2022 Monocyte distribution width Auto (Bld) [Entitic vol] 15.97 % 0.00-20.00 [facility] Monocytes Auto (Bld) [#/Vol] Ordered By: Henry Hernandez on 05-09-2022 Monocytes (Bld) [#/Vol] 0.4 10*3/uL 0.0-0.8 [facility] Monocytes/100 WBC Auto (Bld) Ordered By: Henry Hernandez on 05-09-2022 Monocytes/100 WBC (Bld) 6.5 % . [facility] Neutrophils Auto (Bld) [#/Vo l]Ordered By: Henry Hernandez on 05-09-2022 Neutrophils (Bld) [#/Vol] 4.3 10*3/uL 1.8-7.7 [facility] Neutrophils/100 WBC Auto (Bl d)Ordered By: Henry Hernandez on 05-09-2022 Neutrophils/100 WBC (Bld) 68.6 % . [facility] Nitrite Test strip Ql (U)Ord ered By: Henry Hernandez on 05-09-2022 Nitrite Ql (U) Negative Negative [facility] No Panel InformationOrdered By: Henry Hernandez on 05-09-2022 Estimated GFR (CKD-EPI) > 60.0 mL/Min [facility] Creatinine Clearance (Chem 114.17 [facility] Nucleated erythrocytes [Pres ence] in Blood by Automated countOrdered By: Henry Hernandez on 05-09-2022 Nucleated RBC Auto Ql (Bld) 0.0 /100{WBC} 0-0.5 [facility] Opiates [Presence] in Urine by Screen methodOrdered By: eHnry Hernandez on 05-09-2022 Opiates Screen Ql (U) Negative Negative [facility] Phencyclidine Screen Ql (U)O rdered By: Henry Hernandez on 05-09-2022 Phencyclidine Ql (U) Negative Negative [facility] Platelet mean volume Auto (B ld) [Entitic vol]Ordered By: Henry Hernandez on 05-09-2022 Platelet mean volume (Bld) [Entitic vol] 6.7 fL 6.3-10.7 [facility] Platelets Auto (Bld) [#/Vol] Ordered By: Henry Hernandez on 05-09-2022 Platelets (Bld) [#/Vol] 330 10*3/uL 150-450 [facility] Potassium [Moles/volume] in Serum or PlasmaOrdered By: Henry Hernandez on 05-09-2022 Potassium [Moles/Vol] 3.9 mmol/L 3.5-5.1 [facility] Protein Auto test strip (U) [Mass/Vol]Ordered By: Henry Hernandez on 05-09-2022 Protein (U) [Mass/Vol] 30 mg/dL Negative [facility] Protein [Mass/volume] in Ser um or PlasmaOrdered By: Henry Hernandez on 05-09-2022 Protein [Mass/Vol] 7.8 g/dL 6.4-8.9 [facility] RBC Auto (Bld) [#/Vol]Ordere d By: Henry Hernandez on 05-09-2022 RBC (Bld) [#/Vol] 4.46 10*6/uL 3.60-5.00 [facility] Salicylateon 05-09-2022 Salicylate < 1.5 Low 15.0-30.0 [facility] Comment on above: Result Comment: Petty ents treated with Sulfasalazine may generate a false high result for Salicylate. Performed By: #### A CET, JAMIE #### [facility] [address] [place] [address] Salicylates [Mass/volume] in Serum or PlasmaOrdered By: Henry Hernandez on 05-09-2022 Salicylates [Mass/Vol] mg/dL 15.0-30.0 [facility] Comment on above: Patients treated wit h Sulfasalazine may generate a false high result for Salicylate. Serum or plasma albumin/glob ulin mass ratioOrdered By: Henry Hernandez on 05-09-2022 Albumin/Globulin [Mass ratio] 1.8 {ratio} [facility] Serum or plasma anion gap de terminationOrdered By: Henry Hernandez on 05-09-2022 Anion gap [Moles/Vol] 18.4 mmol/L 6.0-15.0 [facility] Serum or plasma high density lipoprotein (HDL) cholesterol measurementOrdered By: Ji Smith on 05-09-2022 Cholesterol in HDL [Mass/Vol] 182 mg/dL 35-85 [facility] Comment on above: HDL CHOL ATP-III CLA SSIFICATION Cardiovascular RiskHDL > or equal to 60 mg/dL LOWHDL < 40 mg/dL HIGH Serum or plasma total choles terol/high density lipoprotein (HDL) cholesterol mass ratOrdered By: Ji Smith on 05-09-2022 Cholesterol.total/Sarah sterol in HDL [Mass ratio] 1.8 {ratio} <5.0 [facility] Sodium [Moles/volume] in Ser um or PlasmaOrdered By: Henry Hernandez on 05-09-2022 Sodium [Moles/Vol] 141 mmol/L 136-145 [facility] Specific gravity Auto test s trip (U) [Rel density]Ordered By: Henry Hernandez on 05-09-2022 Specific gravity (U) [Rel density] 1.013 1.001-1.030 [facility] Thyroid Stim Hormone w/Rflxo n 05-09-2022 Thyroid Stim Hormone w/Rflx 0.80 u[iU]/mL Normal 0.45-5.33 [facility] Comment on above: Order Comment: FRANKIE SOTO Y Comment USE FROM ER PLEASE Performed By: #### H S TROP, CMP, ETOH, CBC, TSH3 #### [facility] [address] Thyrotropin [Units/volume] i n Serum or PlasmaOrdered By: Ji Smith on 05-09-2022 TSH Qn 0.80 m[IU]/L 0.45-5.33 [facility] Triglyceride [Mass/volume] i n Serum or PlasmaOrdered By: Ji Smith on 05-09-2022 Triglyceride [Mass/Vol] 107 mg/dL 0-149 [facility] Comment on above: TRIG ATP III CLASSIF ICATIONTRIG less than 150 mg/dL NormalTRIG 150-199 mg/dL Borderline highTRIG 200-500 mg/dL High TRIG greater than 500 mg/dL Very highStandard traceable to the Center for Disease Conrtrol and Prevention (CDC) test method. Urea nitrogen [Mass/volume] in Serum or PlasmaOrdered By: Henry Hernandez on 05-09-2022 Urea nitrogen [Mass/Vol] 11 mg/dL 7-25 [facility] Urine bacteria detection by automated methodOrdered By: Henry Hernandez on 05-09-2022 Bacteria Auto Ql (U) None seen None Seen [facility] Urine clarity by refractomet ry automatedOrdered By: Henry Hernandez on 05-09-2022 Clarity Refractometry automated (U) Clear Clear [facility] Urine glucose measurement by automated test strip (mass/volume)Ordered By: Henry Hernandez on 05-09-2022 Glucose Auto test strip (U) [Mass/Vol] Normal mg/dL Normal [facility] Urine hemoglobin detection b y automated test stripOrdered By: Henry Hernandez on 05-09-2022 Hemoglobin Auto test strip Ql (U) 1+ Negative [facility] Urine leukocyte esterase det ection by automated test stripOrdered By: Henry Hernandez on 05-09-2022 Leukocyte esterase Auto test strip Ql (U) 1+ Negative [facility] Urobilinogen Auto test strip (U) [Mass/Vol]Ordered By: Henry Hernandez on 05-09-2022 Urobilinogen (U) [Mass/Vol] Normal mg/dL Normal [facility] Vitamin D 25 Hydroxy Totalon 05-09-2022 Vitamin D 25 Hydroxy Total 36.0 ng/mL Normal 30-100 [facility] Comment on above: Order Comment: FRANKIE Shine Comment USE FROM ER PLEASE Result Comment: JESSICA MIN D STATUS 25(OH)VITAMIN D RANGE (ng/mL) Deficient <20 Insufficient 20 to <30 Sufficient 30 to 100 Reference: Aye Palacios, Geremias YOUNG, et al. Evaluation,treatment, and prevention of vitamin D deficiency; an Endocrine Society clinical practice guideline. JCEM. 2010; 96(7):1911-30. PERFORMED BY: [place] [address] PATHOLOGIST PROOF CLERK KELLIE ALVARADO M.D. Performed By: #### H S TROP, CMP, ETOH, CBC, TSH3 #### [address] Vitamin D+Metabolites [Mass/ volume] in Serum or PlasmaOrdered By: Ji Smith on 05-09-2022 Vitamin D+Metabolites [Mass/Vol] 36.0 ng/mL 30-100 [facility] Comment on above: VITAMIN D STATUS 25( [place])VITAMIN D RANGE (ng/mL) Deficient <20 Insufficient 20 to <30Sufficient 30 to 100Reference: Aye Palacios, Geremias YOUNG, et al. Evaluation,treatment, and prevention of vitamin D deficiency; an Endocrine Society clinical practice guideline. JCEM. 2010; 96(7):1911-30. WBC Auto (Bld) [#/Vol]Ordere d By: Henry Hernandez on 05-09-2022 WBC (Bld) [#/Vol] 6.3 10*3/uL 3.8-11.6 [facility] pH Auto test strip (U)Ordere d By: Henry Hernandez on 05-09-2022 pH (U) 5.5 [pH] 5.0-9.0 [facility] Office Visiton 12-19-2021 Follow-up visit [id number] Antoinette Recio 1995 F Date Provider Department Center 12/19/2021 [id number] [facility]TO[facility] None No family history on file Level of Service:44308 [place] OFFICE/OUTPT VISIT,PROCEDURE ONLY Reason for Visit and Comments: Rash [[id number]] - Itchy - painful started yesterday - Normal [facility] Progress Noteon 12-19-2021 Progress Note [facility] [address] Dept: [phone] Dept Loc: [phone] Subjective Antoinette Recio is a 26 y.o. [...] Assessment: 1. Numbness of right foot 2. Gurwinder Curry was seen today for rash. Diagnoses and [...] occasionally words aremis-transcribed.) Lorin Tenorio APRN - CONSULTING PSYCHIATRIST 12/19/21 Normal [facility] [facility] CT HEAD WO CONon 03-18-2021 CT HEAD [...] by: ATIYA GREWAL Date: 2021-03-17 22:52 Normal [facility] Operative Reporton Operative Report Date of Surgery: 06/14/2020 SURGEON: Jordan Bhakta D.O. GROUP MANAGER: TOÑO Chowdary CNOR PREOPERATIVE DIAGNOSIS: Displaced midshaft [...] Clean Jordan Bhakta D.O. gls Dictated: 06/14/2020 #[id number] Typed: 06/15/2020 #[id number] cc: Jordan Bhakta D.O. [facility] Comment on above: Result Comment: Elec tronically Signed By: Jordan Bhakta DO\.br\Date and Time Signed: 07/16/20 20:57 EDT Coding Summary.on 06-25-2020 Coding Summary. CD:[id number] Gh 0bWw+PGhlYWQ+ET4HGKDrV 62pnVTtwO0AP4fICP5RZOK JLFUKYF0SKF1ozEI3TDrwQ 2VybiAv IdavrTMgPV15QUo3AHQ2bP guVXfawZ9viTBrY4b7PlWl WY74uG80KPkpSDZbLaI9Tv ZpbjsgbWFy S3hcUjCxqENvYdv+PHRhYm xlIHdpZHRoPScxMDAlJyBz hVqgEV4cIq7dIPFfLAKvlE xhcHNlOiBj m6xkLDKeJRosJK2kjLhgQ3 GraCS3HLIzv1k0Dq90fHM+ AASeUXR5wNxrDDpkn006Rj Bnr8uyBPU3 qVLtIKlmFOP2O33gg5B6ZO IqGELuDIL1hVX9zW2dkXis uqxvU8LjiIJbHvM9VCX5rC AbtU6vmSxx pbcbvC3pJzo+K85BES1NPQ WQES3YQyf8X4WzUdhsjVT+ RZ29XYRyEC10vVUvlOHdv3 gplCh6OqHa TWKxYNI0dQlrHRsvq4ZrNN OzW24rkZPuz9T6SEChsNap nVMcAvUvmOC0zX4rICjlaw pey7kabctl Adojk4tgrx41qF04O72jHG riWDApHGB3PYTgBYXreUxp lt6iyL6mUi2+VHtzf3rct2 rloNe3HdCg HJXlbrBmqUvaRAZ3a9OpYe 54L9MfxWpor6DsNsn3qj60 qIFsc7W1kIH3DWnoJXTdoD 9iIYzwNqD6 AGPcVwYtgU11xSUgKQqaDh 4fxPbzaGqsFZ9fXFOzqktc DQWfsO3mTTAleLZrdUqgZK 4wNTBpbjtm r976TrGjXTN4RBLiqYOdR9 LvoW7nBwRsLJRcHIFsF9Un nCBrBImmD012VErjHrD4FB DltuFeE7Cj CVOxiIinNcB0u7L7Hr1Nd4 OekqmiDVV1UDrxTXU4VsK3 ZkXdRnA2L1QmJkm9WXIbhI ifWT8gJ6Ls FXYqvdgapkysjBW6EHMpKQ NdsK18xFEmAZudSb7xq1E1 r756JBXmTGXqlY45Ad7kvR ogMTBwdCBU lY5ihpubq4junzugNrPvZB TpWJw5RLw0VGLgaIzaDxTt RCH5EsD3XVT9zPHqaK5ueQ vyftygfC8i Oyc+Q77bsJ6rTPP6TAX3gl foQKLbveJcKX62ST91K4Oj PjwvdGFibGU+PGRpdiBzdH eeTP4yMrCc d1bgm1MoGRgvS8OzHLQzJC lwJws4HMArBCS4dLJ6nP8w LTDyNWpoz4W7lLA8N5Zztp Pxbw6ut7bx MQMvDCyjI68khJQzt3Q8US UdnLH6ZCKzyIydRqUpjA48 Oyc+YLLxuDmdz7HmLzlwt6 uhi0jxuLy2 JnRxXCNpupTefKljZZP3h4 BlFx87Q05fLIomYFUmFXSi WQXgZDQhdQicos7duH8kIf 8+PGNvbCB3 wCA5nB8jNKEjAzR8XEtrG5 20LmRwhXRxBwulo4ehg4xk fJd3SmFkBWZjniUjaMwgZY W5e7OaVz04 K75oSZjvEEHgQEVfGACvIS OwuGzodg0flV1tKj8+PC9j g0vwqn92lK34fMF+PHRkIH F9hYxcFYja KZDjaZ1jODwlXrM8OQSjIv DuoV74dIHaZVrsLs7ayDkm cPinTT7xDMJzebbrk504Gr Vom7rsDLGa vQCbYNnrIFS4E03la8E4HD BsEGAyZXK9kYG3oP4uaSzj bjogbGVmdDsgdmVydGljYW wjQQjvZ534 IHRvcDsnPlBhdGllbnQgTm LvJOe9E2IxQbj2ZWFnfKhz EB2hkZAiZDhvGi1zjIkjcZ ziEZ9rWJJn uxmxq141EbJuz5sbQIEqbP EuAYjvXPH2T39gd2N7CLHb FUGtPRJ2cIY9qY0tbSofxx ogbGVmdDsg nrTzhCibGIiwNKjuL085VN RvcDsnPkJpcnRoIERhdGU6 XH08SB31wJRbb4P8oJP1G9 BhZGRpbmct bjqwvXM2CGJwFHTidB45Ic 3qmFsoIx3qRVFrGXO0LULt qGWxI9HcuK7aVjLnMXAzZU LmZ9FtrSKr EKmvN959ZAowVkC1WFShyo MbG3TkRSJytWneViD8t8W8 Pm9SG0S7AD17AU28zMKet9 H1sEU0E4Fq PWJinqfoxnalwYF5TVSkVF TeuH87Nf8ipWyqGi8vBKCj QEY1URDaaGHmK0ZmfX9rTr AjMDAwMDAw X1ZrjTOcOUwfI180AOjqAn G6FUDwtsAbA5MaZFBikOyd FjQ3g7Y7Kz8ZBIi8GS01EQ 78aJFoc5Z3 kFG2W6DvXIYwuytwuvvnpE I6KYKcCGCkrX15Ba8oiMhn Qh3qJQRcOGZ5ZEXryLUnM9 ReuU1pCaZm HDAcZHMzH0DdtIDfCHjcT0 23QLipHhL1RUWeuzVnL0Yi LHDesJmsNgY7k1T2Ku8GWM OmYF19VNN9 xDN1HN46KS33P9FhXydcoA FibGU+PHRhYmxlIHdpZHRo OQmlREQxFyEvwGxtRA6eAa 9yZGVyLWNv sXnkdKPkFyQeg7hdRQGsDC pkYQ4hvOveX6PitNL9HVIi c9i7Tz40Y08nG0ZrlHM+PG PwkUN4eGR1 dX6mZqPdGpQ9AFieM952Cj JrhTMjZagbq8lug6fekRx7 PmK8YJKlfaSdgUzlLUU5s0 IlWy74N54a IHdpZHRoPSIxNSUiIHZhbG znfo4lnS7dUa2+PGNvbCB3 fZR8tR3yJtStMmK6PUfiX7 49InRvcCIv Sywqs8nem4arpGb8VjMqDO NmkjTepMeiZWF1e3XnVe86 U8IjwLayk3PlFvp8rk51kG Zdb3E1dJN8 H9VtMZBsuhakeDCvqOboAL 4sHJNbwctfMLYazW4wZBRm U5v2NzFjQpX8MVpzJ7Nsib Q1NTBvgDIu LYciEUJ6V32qh9X5CRAbYT JbLTY8tON2vX2jhXwslspc bGVmdDsgdmVydGljYWwtYW wtO329JUXh tLbrDBSiaY5bLTOorXPkiX dsVD1eNEMtrjefRcMCEhPT SCcqBW8AMeESOCGlFhkmxK Q+PHRkIHN0 wMxuFUgaUTWngF9sPAOzQ9 k2UaOqRkL3OSfrP5GiDYXq vtzlFn76cG2lRwYaEdU5DU ghD6FltuC1 VZCotBCpTQzcBEH0U21ks9 B5QWVbDKAuXZO2vJE3cL1m bGlnbjogbGVmdDsgdmVydG ljYWwtYWxp W911IGCnjHfpVsAvWrVfSd O6XOZ6W8WfLmw9DEKufYxg AB2euNOcFCvwIz9jtTxqsG qyJQ7pRZAc xxfxBWOygK7uWKNbrTWxzH uaEY3yGSOhcirpf420BcLj CDJ2HPChwBNkD1RwkQ4lEs AjMDAwMDAw C1JlnRBwAYlkG644DVwuKv U3WCVuykLpA7EnTVIrlCti RoF9c6E6Bi7aSWVTHKBlgi wvdGQ+PHRk JBD8rSgpRGdjIXQwqT3cPC UvW5l5DjSvUpS9EJtjT4Pn AQNlbysqRz32pF7rKoCtLd B7FWcjN0Zv sqU9VKZpsFXqPRvuVKP2I3 7hz8U5GKKvGZBqOYF2rTD4 tH7tgZimlqkejFAlkTuwjh VydGljYWwt EQyoH498GYTsnCyiWnJpsK FsZTwvdGQ+VHGyOBZ1sBbw JOflOMPkbK4hXFCeK6p0Rm PbWoY1GApl C2WcAUGpownxHn86gL1xMp FhJeI8SXwjO5AxjdJ3INUm nJBwDYvfZWA3B28st6W0IN MwMDAwMDA7 tYG3wT1hbLpeelbnoCAfyK ayfdVhuExtTZxxPLawC691 IHRvcDsnPkFtYnVsYXRvcn zxR0SfEYCZ AZieQ8XiW0PbpKcmyWS+PC 38ja24N4MgRrcuTqx1EZCs EDY6gIL2yN3jEDXtBFpzt8 A8yIH6O4Xo ufZkus1hd2twOFCqXCnoY4 9mzGRgg7H1KILpuBL7BSOk qCwbScDlrL47Kiv+PGNvbG bto1NfNozf z4zga6ahdJz3RsKyQFFybp YkdHhlYKT0v9HwZl76K44w IHdpZHRoPSIzMCUiIHZhbG gphv1uuJ6w Ii8+VTZblPN8pUR9gB6gCn GrPfT3ACxrG069VqPyaRDi Zpvui1xli0cevPe8JwHsGL IgdmFsaWdu BLF1u3LeJu85U0UmuLjrh4 EmWrt4ar04hYYfm9H3fOA5 G2EpAGJmguvsgGZbqDtdZI 4yMDBpbjtw BIDrsY8vEXYoO3l8BpJuTm R3FTfzV7BehkR6EMAzdXTw MARwlPIRdT8nabyzm1mjup ogIzAwMDAw GFh5QOr4GELrpOunOsQuEV Z1YxF1YBQ0sRYbsA4rvTrk xhhdqM6iEwy+HCz6f9jhbU PsMT7btTM8 QJ01UA47iUAar3M6dUK9K6 KpLPNfodenbvdqxRB5JPOf YRQnsO25Gn9psAuyGc9nIY KvQQS0URMs vAKkK5FrxZ8eHaGrUBPgDK KpZ3JpiOHsNZasE728DHwh DdN5JWTymuMgX0EoCMUuyX pcGyI2z7S1 Ye5PAG54NO48BK66xMQwg9 F5oKY5X8KgJJGdojbgxpwc vRT1YVVkSVPozH80Mp9ipC ymUf2lZDIb YEW6CWFfnXKpM9CpsT6rJp HdHUZmAWPaB3RzlGVjPBxy W619HHrbHlF7XGOvyaNfB1 FsLWFsaWdu RmO4p1P3Mo1FRz86OQ50ZS 69uERwk7U9aDH6Z8AgFVAi pabxtvwxpNW2KWFuIFYcgZ 63Qu0hhVuo Yt4fCNJfBRJ6CASmyQWnO3 ThjK4nIjHeKLDgBBCpI9Fx iWGpJKbnQ442EIfuAnQ7HP GlymQvX0Qe TUJmjPafKcW7n8G4Rv3ANU nvxhm8C1FtWkbmvOV+PC90 PDTiGT01qHXpxSVbu3lobQ a0FtPqCEBa IHN0 (more content not included)... Normal [facility] Coding Summary.on 06-24-2020 Coding Summary. CD:[id number] Gh 0bWw+PGhlYWQ+IW2ZXVNlJ 17fnPLdgY5SD1sFXO6LQSF EEZXUSM9ZDB4ycZF8PEmrG 2VybiAv UxcfmBUmIT82RFk0QIC0vH bgRXaiqQ3obBOjC0b8QnHn GR28kF52VZtnZXClXoH6Lz ZpbjsgbWFy Y9zoEiRtcSFhYiy+PHRhYm xlIHdpZHRoPScxMDAlJyBz lQbqMB8yXm1iKHJqAXQtyG xhcHNlOiBj t4ngJDLcTMduIT6voZavP8 SjmNS1OWCxe1a3Qh08wUS+ ZSCxBOW2aRgfCFpyk566Fn Nhj0zsDDT9 lQSvTQgcXHW9O03do8L3UG BvYSMzSXD2hMC3fG6gvIjy ejfvL5PjnDNkFwA7GYJ3eE NgoL9biUpm dpjmsA4uEjj+D10SFY8ZFZ JUDK6IWuz3T5GvXfndlRM+ MP66VRJjLK22cNCywVTwm4 ywxQm2QdVf KMUbSIN8fRjrVZwiw6RtJY SdV71ioOWen6L1KJVcqEpj mPInGbAdgEN7nG1xSFomca teh1ucpyao Mwlow0wxgs32iF12W10kCD ftTGIbDEI0LOMaVQVprCbv ms5gqD0fVw4+AJdof2gbi9 dioUc1DwDd ZMFdwhVycInqXZP7b6XjSg 25F3GkhDafj5OeNzb0ay90 eJHts4T9xXK0WCuuZJXcaF 1jDTmrUyA6 OWBuUfLfoT51dOTlVXbaAk 4ctTnrbYzaJV7qBKWesayc RZDjgV6nABPywOFbaTtsWE 4wNTBpbjtm u822UqBvAIS8KLDszHUoJ0 ZnjU6vMvQdPLGlSRXeS9Us wCNiPNrwW582HYlcFqZ5QS FkhgOoO4Le LNPheVhcQvE7m3M7Bm3Mq6 QsgyexJEB8NMrfCLU0ZqJ2 OxHtDwJ9I7IzKcb5XKXdxV pwGQ2tW7Kh UWUmoafsqhsdtXZ1PMItVC JciB35vTZkOMhxOs0wv9Q5 r511ZNZzDVJyaW49Dd8apA ogMTBwdCBU aI0vgmrsr9opmjnlPiGhNX DqPOg3CSz0TGEucDozGdIz DIT2FwL5MFN3yHMkdE8bvN yfpxdypU8i Oyc+V58vlU1oMJE4RXA5yl wlWNKcgwGzPM03YB95P9As PjwvdGFibGU+PGRpdiBzdH hjZW3aMrDu y0mxm8GdCFhgB6TvGQZzXL szRcg9IRGnWSK2aXM6mL1o OFVqXCslx2W8cCY2O8Luqv Dwqg3dj1sk SULnOXdaU54hyMPxs0B9KC GauHG5YIIdmMhdZkXlhD78 Oyc+DTTbcOckv5JwTxckf0 mws5dvdMt4 JhNcLJRevoBhuPzmXQY9j8 RoGc66E20vPIhfEYPwXJEx RUSwVIBjxQcrpb5awU4iRw 8+PGNvbCB3 qNS9aJ7rKHWzJtL1YHxsK9 80XoZkwIWjNfrxr8lpr8sz uLy1WjCxJQAeyhHwwCdaPR K5s8JrJo30 S62hOYhsHFYjOVAmKHOuHI OvmKiquc4vtI1hTu1+PC9j c3ztmq76pH26mQG+PHRkIH W7sQewJKqm AREcyK0yXNlgUeO6AABzEd HkaI53nQWmOGjsCr1irQbt sSaiEV0oUYThhtgdf984Qf Dyy0knSZUs cIMuAMjoZJY1R96fp2F7GX FxDCSwNMU5oIN9yO7vmShu bjogbGVmdDsgdmVydGljYW kdGPvaH319 IHRvcDsnPlBhdGllbnQgTm YzZVa0T6HuWxm1FJSycEsb EM7tcLQzWNgxQd9wmRmgpV duRL6tOAOe lgakn766ZgMjy0eoMFMiiG HjWJtqSRL8P17lt4O6GUXx CRNuTAS0cOW1gL2hqNokof ogbGVmdDsg taGcePxvYVqoFKlnN828UX RvcDsnPkJpcnRoIERhdGU6 AT13KG15lDThu3J6uUA7I6 BhZGRpbmct cblupEN7PLVpRGPjaK40Wh 1ieVqiEc3hBVAuHOT8YVGe uIFnP8DteR7nKaMtJIRfCG YwR7DosUYm TMxzI547UTsgSbN3LBYywb BbE6QoECDvpBujVcR0t9L5 Eb3CL7R2AP73YE15cLUev5 C0aNO7Q3Zi WHWuwbklzdqopEH9VECnDP BcdP10Ig3kcGrlKd9qSFTh EFT6KVFjuCGqD6TgzI2mCg AjMDAwMDAw Z6JcsOXzTQpkX688FBowCp X1KCMqgfMiF1IjQPHwfQyw MsB1q1U4Rt3QLXq5WB07BW 66qQUak8I5 qRO7I4DnQRJnuhznxhayzK I0TIXhYFNfnP72Hb3erGok Fd7bLXIjFBF0IWYsrUNrI6 QjwN7uAnHz DPCmCBLzP7GvmBNeTPsmS7 86ZYqjSvA8JMDmokJvE2Tx KLArnLrnBwD4n3A5Mm5KMX ZhTX93XFM2 aHV6BA15JL30E7XuEtmhdJ FibGU+PHRhYmxlIHdpZHRo HLydYRGnHzCrvYhqCK6lYt 9yZGVyLWNv kMxkdVCqJhPel8okWZCbCS ltQE8ekIqqA0YkwBC4RXOp w0x9Ls94Y73dE0NpyUK+PG ShoXH3gXV5 wW1aJyReApH6DQhkG303Tm MomKPsYerom0dzd9oruEy3 KmJ1YIVugvGexAwaPZY1c6 AkVa15H30e IHdpZHRoPSIxNSUiIHZhbG ljwp6woC8sCh8+PGNvbCB3 qEJ4cP8mRbUpBlD5CEcxM1 49InRvcCIv Ammbh7sjj1dlkTt1UyBjVR HvivDmuThvCZN1f4ZtNt15 W8SqjXorz7GwWqx3qf99uY Boj1O5sQA3 Q7AfZRYynijqjMJlvRhfVB 7aPKOsuudaFXNlqO9vFPKe B9r8JpSpRaX7HZwgC5Djyr P2ZPAfsJVc HNgoEEV5J05lx6Y9PVVvQN HrVZX4xZR6uL8grVykhssu bGVmdDsgdmVydGljYWwtYW gwZ633PIKj xWxeKVNpjE2dBQCkxPFygN gdJY7sTFEydlweOeMBQxOB KPnbKZ5HBtVEHDXsMmonrP Q+PHRkIHN0 jGhaFTmtKVApiI5rUNHzV6 b3WzNiYrC6YUmoV4AuZRAp kcsuYs36uB9cXrWvEsZ3QM xeT5GzlyR1 WIImxIYsFEjuRUS3I47dn1 L7XZPlVZZfUPT9gNI6dG9x bGlnbjogbGVmdDsgdmVydG ljYWwtYWxp B017PVJktPgpBhNoEaVfOx P9BIV5X7HnZtg2EHAcbYvu AC4frDVlTJjlMd7gcWvbzH qeWL6fVUXz nrsyTPJtzP1cBBXlqXMdnT uhKX9nNULuofabq973TqVk XXL8UFIfeHKlG3HzqN9bRh AjMDAwMDAw V4YmdTJlEFnyO422FXvuNl R3QFKebxCvB0MuXNSftHrm HrU5v9A8Yn8dZECLZMUzud wvdGQ+PHRk RPD8vQdhHEylGOUtqJ6lOT McT4x3PjOmBhF9FCjaD7Hl RSVjqojhDw08jL0tSpBaGk F6XSftB4Lb pwC5TDXpeBKyNPnoPXJ0I6 0hj7J7QENfNCXaQDP8fRR4 bH3vgZjlmppbeGWbmFsrav VydGljYWwt AJmbJ897SPHhlUsrAqDtlB FsZTwvdGQ+RKSjYTQ8kTim BCnpTANkjK4qXGLkC7b6Kd DmErB4ACjv A7TmCONczzchSy44yV4vAr WnGuL2UAhgJ3NpxcG4SRDt aXUqNUweZOD3Q24cy8S4GR MwMDAwMDA7 xBL8dP4vlLhijksufULozI zntxUfsWydTMgnXEyaM616 FULgeJssSp71oRAuySgdok E4M7IhUuef dHI+LW48OIYmKV56pXCbcY Ekq1gqgPf1ObOoLQFnKSX3 pYzlTVyyi9XbWKQbW19ccZ Ltq1I8VXUd aYuekTLdKyFqiZS5nL9jCB xbrpfhh2plttyrCsxcy4ag eg29iN92Q75aYSfyTBYrVQ IzMCUiIHZh yOebzu0amW2wGv0+PGNvbC Z1pOE0zC2yHoFyUfR2BWzd Q972GmHbsUFkNxstl6xky2 lncTb7ZpKg CJMjzcKvfPprVYV4a9EuEj 59X85wDSiwWEGpCDCwMWDq CUXylQkzcm4ltY8gPo7+PC 8yi7uvjb59 xF77dOJ+OSLgECJ3uXixUC dmMCSciS5qRPcsRjY6LDVb HgKlfQ19iYByUSotBn5jmY utxCrvCC4v XHJrpjrti526IcQhc7owWG HcsJHwBZyoBIR7V43pt9C8 YGQsXYKsYAA0eVK7bX5smQ lnbjogbGVm dDsgdmVydGljYWwtYWxpZ2 95YFHsnEdnQvMgiGMjC3qw kiZGTA6xOrgupVI+PHRkIH F0vNpuTWjx CCLydE3tMAAnS6h5PsGyFf T6PIuyN1WnfkE2BCSxsXUr OLWycMKAzH5hfehcs2wivr ogIzAwMDAw EFi2FPj6TUJfhQmbBdPyKJ A7YyR8IUT1cIOuuM6ovEjp crfsqE2zGpt+RklOOjwvdG Q+PHRkIHN0 tXjuHKsmXVQyvS0wOZTtE4 b6XpTlYdS1AFmnT6CxafN3 ZXUpvKTjWFIffMNOaD3zzj ytc9eokcgc WbHcPUMhLIv6UNj4AKYbrM qdKzJuAYM8HgQ7ZPR6qHBt oW1pnIiasghdxD4vKrh+TV JOOjwvdGQ+ KDDkUUC4qYchMNzmHLUhvM 1wTDLhE9h5EyPtXjF3QGlh K4DpzaA4FDWhbNFmWHSbiQ GEgB1txcxn w4olfeyyRoVrYZPtDBs8MP r9NFWurDvgCqSzIOR7TkS8 OYI8pKLbiH8tdGrhuvaopY 9wOyc+UGF5 RQZ1NG45KH05Z2SxFhwisO FibGU+PHRhYmxlIHdpZHRo VZmoFZUpUgUkfOfwNJ7uDm 9yZGVyLWNv bGxh (more content not included)... Normal [facility] IntraOperative Documentson 0 06-22-2020 IntraOperative Documents [id number] Normal [facility] Main OR Intraoperative Recor don 06-20-2020 Main OR Intraoperative Record IntraOp Document Type FT Summary Primary Physician: Jordan Bhakta DO Finalized Date/Time: 06/20/20 12:56:01 Pt. Name: ALESIA RECIOANDA Azalea Ramirez/Sex: 1995 Female Med Rec #: [id number] Physician: Jordan Bhakta DO Financial #: [id number] Pt. Type: A Room/Bed: [place] [address] Admit/Disch: 06/14/20 15:28:52 - 06/14/20 21:05:00 Institution: Case Times FT Entry 1 Patient Times In Room 06/14/20 17:11:00 Out Room 06/14/20 19:10:00 Procedure Times Start 06/14/20 17:46:00 Stop 06/14/20 19:07:00 Anesthesia Times Start 06/14/20 17:11:00 Stop 06/14/20 19:10:00 Block Timeout w/ 06/14/20 16:55:00 Anesthesia Last Modified By: Shreya GAVIRIA, Alycia Shine 06/14/20 19:10:13 General Comments: 1653 PATIENT TRANSPORTED [...] JR, DO, DO, Jason A Stocker RN, CNOR, Nona Role Performed Anesthesiologist of Surgeon - Primary REAL ESTATE INVESTMENT ANALYST Record Time In 06/14/20 17:11:00 06/14/20 17:11:00 06/14/20 17:11:00 Time Out 06/14/20 19:10:00 06/14/20 19:10:00 06/14/20 19:10:00 Procedure CLAVICULAR FRACTURE CLAVICULAR FRACTURE CLAVICULAR FRACTURE ORIF(Left) ORIF(Left) ORIF(Left) Comments [facility] STUDENT - SCRUBBED IN Last Modified By: Shreya RN, Alycia Cash RN, Alycia Yin RN 06/14/20 19:14:30 06/14/20 19:14:30 06/14/20 19:14:30 Entry 4 Entry 5 Entry 6 Case Attendee Julian SARGENT, Jhonny Cash RN, Isabella Johnson Role Performed Scrub - Primary Skein Inspector - Primary Sap Project Manager Time In 06/14/20 17:11:00 06/14/20 17:11:00 06/14/20 17:11:00 Time Out 06/14/20 19:10:00 06/14/20 19:10:00 06/14/20 19:10:00 Procedure CLAVICULAR FRACTURE CLAVICULAR FRACTURE CLAVICULAR FRACTURE ORIF(Left) ORIF(Left) ORIF(Left) Comments Last Modified By: Shreya RN, Alycia Cash RN, Alycia Yin RN 06/14/20 19:14:30 06/14/20 19:14:30 06/14/20 19:14:30 General Comments: COLUMBA BALIR RN Perioperative Protocols FT Pre-Care Text: Implements [...] Yes Time Out Godfrey Graves JR, DO, Bernardo RICO, Gerardo Fierro RN, CNOR, Julian Castellano CST, Shreya Rush RN, Kimberly Y Time Out Complete 06/14/20 17:45:00 Outcomes Met? [...] Procedure Yes Primary Surgeon Jordan Bhakta DO 06/14/20 17:46:00 Stop 06/14/20 19:07:00 Anesthesia Type [...] and sympto (more content not included)... Normal [facility] Operative Reporton Operative Report Date of Surgery: [...] Godfrey Graves Jr., D.O. gls Dictated: 06/14/2020 #[id number] Typed: 06/15/2020 #[id number] cc: Godfrey Graves Jr., D.O. [facility] Comment on above: Result Comment: Elec tronically Signed By: Godfrey Graves JR, DO\.br\Date and Time Signed: 06/18/20 09:48 EDT Postoperative Documentson Postoperative Documents [id number]#1. 00CD:127 [facility] Progress Note-Physicianon Progress Note-Physician Patient: [...] constipation, # 20 cap(s), Refills(s) 0, Pharmacy: [facility], 165.1, cm, 06/14/20 15:51:00 EDT, Height/Length [...] food, # 60 tab(s), Refills(s) 0, Pharmacy: [facility], 165.1, cm, 06/14/20 15:51:00 EDT, Height/Length Dosing, 74.6, kg, 06/14/20 15:51:00 EDT, Weight Dosing Problem list: All Problems Clavicle fracture / SNOMED CT 60659983 / Confirmed left Physical Examination Intake and Output Denies significant n/v and is tolerating p.o. No qualifying data available Respiratory: Adequate air exchange with mandaeism of preoperative function.. Cardiovascular: Cardiovascular function is stable and has returned to preoperative levels.. Neurologic: Pt has returned to preoperative baseline.. Review / Management Condition: Stable. Assessment Anesthetic outcome No anesthetic complications noted. Plan Transfer/ Discharge: Patient can be discharged from PACU when criteria met. Condition good. Normal [facility] Comment on above: Result Comment: Elec tronically Signed By: Godfrey Graves JR, DO.candice\Date and Time Signed: 06/18/20 16:23 EDT Progress [...] data available Respiratory: Adequate air exchange with mandaeism of preoperative function.. Cardiovascular: Cardiovascular function is stable and has returned to preoperative levels.. Neurologic: Pt has returned to preoperative baseline.. Review / Management Condition: Stable. Assessment Anesthetic outcome No anesthetic complications noted. Plan Transfer/ Discharge: Patient can be discharged from PACU when criteria met. Condition good. Normal [facility] Comment on above: Result Comment: Elec tronically Signed By: Godfrey Graves JR, DO XR Clavicle Lefton XR Clavicle Left Exam Date/Time: 06/14/2020 20:16 EDT Reason for Exam: Fracture Report IMPRESSION: STATUS POST ORIF FRACTURE LEFT CLAVICLE. CLINICAL HISTORY: Fracture. COMMENT: 2 limited [id number] C-arm images were obtained in the OR. [...] MICHAEL Technologist: JAYNE Technical Comments Radiation Dose: Gener in mGy = 3.7 Normal [facility] Consent for Anesthesiaon Consent for Anesthesia [id number]#1. 00CD:127 Normal [facility] Discharge Instructionson Discharge Instructions [id number]#1. 00CD:127 Normal [facility] IntraOperative Documentson 0 06-15-2020 IntraOperative Documents [id number]#1. 00CD:127 Normal [facility] IntraOperative Documents [id number]#1. 00CD:127 Normal [facility] Preoperative Documentson Preoperative Documents [id number]#1. 00CD:127 Normal [facility] COVID-19 (MC)on 06-14-2020 SARS-CoV-2 (COVID-19) RNA AIDEE+probe Ql (Unsp spec) Not detected Normal Not Detected [facility] Comment on above: Result Comment: This test result should be correlated with clinical presentations and medical history by a healthcare provider to determine its clinical significance. This assay was performed by a reverse transcriptase real-time polymerase chain reaction (rt PCR) method on the [employer] system. This test has been authorized only [...] or revoked sooner. Performed By: #### 2 [id number] ####[id number] [place] [address] SARS-CoV-2 (COVID-19) RNA AIDEE+probe Ql (Unsp spec) Pass Normal Pass [facility] Comment on above: Performed By: #### 2 [id number] ####[address] [place] [address] Specimen source Nom (Unsp spec) Nasal Normal [facility] Comment on above: Performed By: #### 2 [id number] ####[address] [place] [address] Coding Summary.on 06-14-2020 Coding Summary. CD:[id number]:[id number] Gh 0bWw+PGhlYWQ+EA7LKKAsA 38iyQPfsD9XM9dMKN7KHBC RDJLJGL0VQE6mmWG3TQgeG 2VybiAv RxcszJMkLL21QMy0HKV3bR klITesrJ6yvZUeS6e8FbMv VO51sE56XVvdAMSkLlX1Ab ZpbjsgbWFy J6ggHgNwdJLjNgg+PHRhYm xlIHdpZHRoPScxMDAlJyBz vRekBW2rCc3nGVCcYFIbrM xhcHNlOiBj x0shCGWuMLvtQU8hwOmmI2 FzwCE5JSDwd5r8Hg89rZY+ CZUlNYD0cOsuLJovc589Zj Bko3ajKDZ2 pPHgPPaiEYK6X04eg7A1UZ RhRNMgVCF9uVL7cX8elGza djzpL2DodFOsVhM0SWY0hD QrpJ5iuVri kcvnqG2pXzf+B18CJL3WGZ KQSE2TSjp1E5LqDyyqqJH+ GN51MDRbLK50aGOxcEYek1 inrAc4GvVk OWBrZPV5jPszZUlor4SiQM CpU51mxIGrg0S4MNSdxEky uPRcHjMpjXI7qF7zCEseox phg8xnxjll Eyhcz3azwx65lN32E10vAL qdTWWtWTF7AGPfVZXztWgv wf8cmT0vOq9+LTtqd5hns0 pqhGh9MdVt GBIszdAixIorZBH3m3IrEq 08Y4WmrZydg7JeDnk9bg74 gRTog8Z3tEP8GXwuFCGjlT 1iJUiaRtO7 NZBdUgLumL74nDUfRGeyKy 9yjKkfjXqpCJ4xHMNbgiok XSRclE0tPECwvPQziUxnJY 4wNTBpbjtm t416VvYfNLZ7NZZmgKMjM4 NmlD3qPtOzUHAmGLEwV5Vb mAHiVDxkA223LJglZpJ7XN HbnkAiF5Hw DOSpsXjkKbB3c2I9Fy1Nn0 ExneexLPA3KSzrQSS5YrB4 NtVdUuG0H2JyTcu0PHUlrX ohZZ3hP3Mv LMVtvozlqbxlbSL0OADdYO EzsF84oURrGPaePx9xz7Y7 w291QLYjMKZapM78Qm4ljD ogMTBwdCBU xF4whgnbb9zgioozSdDdEI CrIMn7ZSu0DKNkjKenHlTr EYS4GbJ3QUS2aXFqhD9izX xnggfdvN0p Oyc+U94gtX8aWNN9BUD5nr gzEPXednKbVQ23LP49A5Mt PjwvdGFibGU+PGRpdiBzdH lqFX8cHzPx y9oyo2PfRLwmU3JzKPQfJU jgXbm3USUgRWZ9zNC9tT8d RHNhISvle2T8rHD4H3Fgex Gqyr1rc3qp XHUeRNzlL18exLFui2F6OG JddHW1FLSzzWdqZjOvrJ12 Oyc+VGKmvWoyz2VoQksso7 klp6jybPh7 MeUzKJMdmqWtxHyhVYR6b2 RqAr38I88uISpaIFZdTVDu GLHqQOLaxAztzk1irB9fEa 8+PGNvbCB3 wIK0uF1tMSPpDoI3QFuvL2 02QpOfuMFeAzgqh6lur9wb kBv2AyAlHKZcecEdvZkvTS V8u0WqMa18 I81xHYyeKOKrTICsKCIoIY VujXblhq1bcM5uCn5+PC9j l4hnwe11aN18nJW+PHRkIH P2fEfpKQvh PFQubN4jGVjnAuY9WHBlXz OkzV53bMYhFNavBd1eePmr hAbdGY6dFGJltrdgf656Ui Zmn3vnYAVy eXTxNHkeYRA6O90cz1S1YP KgBFMsLUQ6yNX3pI1qeUhl bjogbGVmdDsgdmVydGljYW bnCYhlB032 IHRvcDsnPlBhdGllbnQgTm MnFCw0G0EhEmj1JWZevOad LV1jhLTmFGuiCg9ezUqqiS qtYX8dWDUn irpkt832ZdHur6vxITYcsB FqDCreBJJ1Q32vb3R8NUTy CRSvROX0oZS6jD8bdKsije ogbGVmdDsg luRmnCkrQFloSRynV536RW RvcDsnPkJpcnRoIERhdGU6 TQ05BX95tLTrq0L8uTR3G5 BhZGRpbmct snhtqUV8FAFrOQMhhL45Fh 1yhHvjRc3tZEShCYB2BNPa yVKfY9UecK7rBsDtOKSxLG DyW5DpjTVo MMmkM619SXoiKiH3KVEbzh NvN0KmFRLloToqOmN5n4K6 Xx6QY6K8KQ69CT78rNOth5 L1jFB3N9Me QPYtmolqgskjbWT6JOUoLQ InyK22Ax3qbVueYy9xMCYx AFW7KJKleCBhQ4WxdZ5mRc AjMDAwMDAw Z1RtvILvXQttO948NIyqCw X4BXKzraSzZ2ZmYGFvbJth BtR6u7U0Ml0WXHh3DN33JK 51rIFuu4S9 lRI2G4GxHOTvmtjenofnrT O3MLBgUQXhmX49Ex6srSyg Qf6tZWPlLFE5ZGVbmGAmL9 VvoY7vItBz DTZfCNHiN1LsfFEeRGplA9 23PGwsMkQ1PHBfuyZaS9Iw BZWatQhwTpM4f6T6Mf3EBK JnBU35PDL0 dZL3MR37OJ79K6AxZkmhxQ FibGU+PHRhYmxlIHdpZHRo RIhxTEJaRcRggZoiQE4kMp 9yZGVyLWNv hFqfbVRzGbFip8liBHSxUZ kcUX1pyYzrW2LltKW7GOEr l0e7To91J93tA8KawZT+PG ZuaNV0rOC6 kE1fRsLbHxW7MAczL705Bs LwdMWwWzsge0hbk9hmwJl2 MpO8RNEosfJhcFkvHAN1j7 LoQx93F63q IHdpZHRoPSIxNSUiIHZhbG heqi8feI8aGb8+PGNvbCB3 iZA5bO8iJjIoYjG1KYobW8 49InRvcCIv Jnazq7vvo3pznQg8KhIxKW PwotXopYesHFR7d1DsAo36 X6VgjQqsb0RyYoj4pe79eX Tzf9Y4qVX7 C5HkSUWbziwzlXIqqQnnYA 8sMMGnxppmOSLleS5wAUIu P4l4AdQvUvY7OFrgI8Pykh G6ZXBalTIr MAbdPRS3Z73ts4H2CDWuYC EtTNX5vDM1kY2ylNsxxhfg bGVmdDsgdmVydGljYWwtYW oeK762GXNz zWcdCXGlqK9nMLKdnCYwpH iyLR6sNJDgfiriVoXMQtVR YKiuXN8KQgRKRJAsOzkjmZ Q+PHRkIHN0 wJbmVQweIMNohN1qPXQhJ8 z0FmOyAcS0KOrxE0SqWZXh sdftRk35wA5lLlAgDzC4LG fcO0RekbR0 NEFfyGWxNMjiANS2H29ux2 L5GULcTCCbDHM7jMS4uZ9x bGlnbjogbGVmdDsgdmVydG ljYWwtYWxp K429HFJzeSzfPsBdHrNuPn K2SXX1U3IqBct8MUUwySwq GN9cbKRkPJmfRt7qyZwbdX qvDD3eVGWb bipfTPWecC7pRQFstWDwdB ktIK8sFKMsvqsev393JgFj QBM1FBJqeCYoC2BowT0yJm AjMDAwMDAw I2EbzVRjWGpfU108IRscNi H7HPKbxbAdV7OvPZUufJxd LcX0d7X1Na5hVNYYKPVwlb wvdGQ+PHRk XBK0lUuaTEucMMSqhH4aZE MqX2w8ViMpNeY5SAswC3Nl ABGyymjbHu30dS9kRjQrXl K6TYqlC6Mc blQ6ANFzvBXcSPejUUA4L4 8ot1H5WDQbDMWzCDL8eHP2 mW0imYtigryplQRgnHgrkd VydGljYWwt IQhcZ024FZOscSfhUiAtqK FsZTwvdGQ+UESsSCK1cMmu EEupRXDyxL4pQSOdO3a0Xv EkUpX7XVpk N1NcKELxnxhvKu57pU0zIv QgFzO1GMbkW1BezfB7QREd gCBsDKvwXWJ0S61vh5G2RX MwMDAwMDA7 lHJ5cS5nbPjezlhtnEQngR saeoIzyCndIWdeLCfrB647 XVPzsExnDvGcHPOtRL2lsK wvdGQ+PC90 so25A4ThEweoLky2HQWzXW L6mBN4pI2pVKQoODxfo0R5 sPO7Q7KsuqRung9fe2hzQQ LzXSwgY06j xLWnv5W0LDZoqTY7BANudY fjSgZqqM08Ken+PGNvbGdy u4WpUrcwp3jqj0oafPj6Rc MwJSIgdmFs uSkqFKW4m7FgNi02F10bPZ dpZHRoPSIzMCUiIHZhbGln ai4vcB3xMk6+SZSnxNB4rV D7qG3rAtYq PeN5GOvcK161ExSekZHmNy fvj5yjo3nggGn8HeGzILXf uzZxjZqkZJB8l0XlQm57B7 HmwXtyh6Zl Gdq4vv39lDRwf9Z5nMI0L6 UcRXWuohnvuGCwbHcvAC1z DKXbnepxVSPcmQ2rEEQiB6 a0CwXeSjR6 KQtcU1NdxrR1FBUijFBjPE IstIPLrJ0pntgkb3bagvpi ZmEiROLhUQz6DJt3TJCrwF duOiBsZWZ0 NjK6NZQ7dVGtgE4pzIzcml zoiH1sTyw+YUj3a4nrlNGk EI7lvXJ1PN36RX47wRRes9 N1zJG1O8Ez DJXczelmrbkkjPI5IQYiKS JtuQ85Lf6dhLxzUw2iYTOu ENL8BJHhrBBrN8NpoK4tCc AjMDAwMDAw W5RgzMOnGPptA609USgsDx S2HUNzdmYdS6TdFEGhnDii KfH7h1I3Ok8PZU25DU45JX 14iXPoa0C9 eQA2W0GnDZNnyxdsmmaenL C9PYDpOQTazG79Ga1zpYys Qz2oFZWpRVP7HIVlyMJpH3 XfyR4rAeAg RFYmKUDbD6RkyFYvJYylZ9 01SKedRsA9PKMffyOdO4Re PCGyoBifLiI6y5U9Kx1URq 57DL84FO69 uQYol5G6bNX0M6KgZPJmlx lulqdsxPL8CGQpHZWvfG39 Xh7ebFbbAz0vUZBtUVG5ZE XbcVAxP1Kt uU4sTmYiOFPoORTuO1RkvV GfRRrbL658EJivAtX6AQQl glTlJ4BfOHScrHbuYfF3a1 E2Gg5PVLbm thu5E3ZrTmxobZY+PC90YW SdLL88xEGvwERgb3dppQn8 DzGtBOChXJR9pMybYDnbr4 VhFYHcJ86q bGFw (more content not included)... Normal [facility] Consent for Procedure/Surger yon 06-14-2020 Consent for Procedure/Surgery [id number]#1.0 0CD:127 Normal [facility] Consent for Treatmenton Consent for Treatment [id number]#[id number] D:127 [facility] Inpatient Patient Summaryon 06-14-2020 Inpatient Patient Summary [address] [id number] [facility] Clinical Discharge Instructions PERSON INFORMATION Name: [facility]#:[id number] [facility]IC[facility] Admitting Physician: Jordan Bhakta DO Attending Physician: Jordan Bhakta DO PCP: NONE, XXXX Discharge Diagnosis: Comment: PATIENT EDUCATION INFORMATION Instructions: Shoulder Cryocuff Patient Instructions - FT (CUSTOM); Post Op Patient Instructions - FT (Custom) (CUSTOM); Silvana Bhakta - Shoulder Replacement (Custom) Medication Leaflets: Follow up: With: Address: When: Jordan Bhakta [address] [place] [address] [facility] (1) 06/21/2020 8:45 AM Comments: Call for any problems. Keep scheduled appointment MEDICATION LIST New Medications [facility], [address], [place] [id number], [phone] acetaminophen-oxycodon e (Percocet 325 mg-5 mg Tab) 1-2 tab(s) Oral q4hr; as needed as needed for pain. Refills: 0. docusate (Colace 100 mg Cap) 1 Capsules By Mouth 2 times a day as needed for constipation. Refills: 0. Medications to Continue Taking That Have Changed [facility] [address], [address], [place] [id number], [phone] START: naproxen (naproxen 500 mg Tab) 1 Tablets By Mouth 2 times a day. with food. Refills: 0. Other Medications START: naproxen (naproxen 500 mg Tab) 1 Tablets By Mouth 2 times a day. Take one tab by mouth two times a day. Refills: 0. Comment: Normal [facility] Main OR PACU I Recordon Main OR PACU I Record PACU Phase I Docum ent Type FT Summary Primary Physician: Jordan Bhakta DO Finalized Date/Time: 06/14/20 19:45:42 Pt. Name: ANTOINETTE RECIO /Sex: 1995 Female Med Rec #: [id number] Physician: Jordan Bhakta DO Financial #: [id number] Pt. Type: A Room/Bed: [place] [address] Admit/Disch: 06/14/20 15:28:52 - Institution: Case Times [...] By: Yvette Santa RN 06/14/20 19:45 Normal [facility] Main OR PACU II Recordon Main OR PACU II Record PACU Phase II Doc ument Type FT Summary Primary Physician: Jordan Bhakta DO Finalized Date/Time: 06/14/20 21:13:50 Pt. Name: ANTOINETTE RECIO Azalea De La Rosa./Sex: 1995 Female Med Rec #: [id number] Physician: Jordan Bhakta DO Financial #: [id number] Pt. Type: A Room/Bed: [facility] Admit/Disch: 06/14/20 15:28:52 - 06/14/20 21:05:00 Institution: [...] By: Soraya Dixon RN 06/14/20 21:13 Normal [facility] Main OR Preoperative Recordo n 06-14-2020 Main OR Preoperative Record PreOp Document Type FT Summary Primary Physician: Jordan Bhakta DO Finalized Date/Time: 06/14/20 18:03:47 Pt. Name: ANTOINETTE RECIO /Sex: 1995 Female Med Rec #: [id number] Physician: Jordan Bhakta DO Financial #: [id number] Pt. Type: A Room/Bed: [place] [address] Admit/Disch: 06/14/20 15:28:52 - Institution: Case Times [...] By: Alycia Cash RN 06/14/20 18:03 Normal [facility] Monitor Recordon 06-14-2020 Monitor Record [id number]. 00CD:127 [facility] Operative Reporton Operative Report Patient: ANTOINETTE RECIO Age: 25 years Sex: Female : 1995 Associated Diagnoses: None Author: Jordan Bhakta DO full operative report dictated Postoperative Information Procedure: ORIF L clavicle Preoperative Diagnosis: L clavicle fx. Postoperative Diagnosis: same. Performed by: Jordan Bhakta DO. Estimated Blood Loss: 100 mL. Complications: None. Notes: to PACU in good condition. Anesthesia type: General, Regional. anesthesiologist: abhinav Williamson [facility] Comment on above: Result Comment: Elec tronically Signed By: Jordan Bhakta DO\.br\Date and Time Signed: 06/14/20 19:03 EDT Outpatient Surgery Discharge Instructionon 06-14-2020 Outpatient Surgery Discharge Instruction [place] [id number] Patient Discharge Instructions PERSON INFORMATION Name: ANTOINETTE RECIO Date of : 1995 Current Date: 06/14/2020 20:26:49 PHYSICIANS Admitting Physician: Jordan Bhakta DO Discharge Diagnosis: ANTOINETTE RECIO has been given the following list of follow-up instructions, prescriptions, and patient education materials: IF UNABLE TO CONTACT YOUR PHYSICIAN AND YOU FEEL IT IS AN EMERGENCY, GO TO THE NEAREST EMERGENCY ROOM OR CALL 911 I RECIOALESIA CUBAHEYD Tristan, have received the attached patient education materials/instructions and have verbalized understanding: May we do a follow up call? Yes No I was present when discharge instructions were given Patient Signature Date Clinican/Nurse Signature ___ Date Follow up: With: Address: When: Jordan Bhakta [address] [place], [place] [address] [address] Business (1) 06/21/2020 8:45 AM Comments: Call for any problems. Keep scheduled appointment Pharmacy Information: [facility] You may receive a survey from Molly Salmon asking you to rate your care experience. Your feedback is important and will help us understand what we do well and how we can improve the quality of care we provide to you, your loved ones and our community. It?s an honor to serve you. Thank you for choosing [facility] HERE ARE THE MEDICATION CHANGES THAT OCCURRED DURING YOUR HOSPITAL STAY New Medications [facility] [address], [address], [place] [id number], [phone] acetaminophen-oxycodon e (Percocet 325 mg-5 mg Tab) 1-2 tab(s) Oral q4hr; as needed as needed for pain. Refills: 0. docusate (Colace 100 mg Cap) 1 Capsules By Mouth 2 times a day as needed for constipation. Refills: 0. Medications to Continue Taking That Have Changed [facility] [address], [address], [place] [id number], [phone] START: naproxen (naproxen 500 mg Tab) 1 Tablets By Mouth 2 times a day. with food. Refills: 0. Other Medications START: naproxen (naproxen 500 mg Tab) 1 Tablets By Mouth 2 times a day. Take one tab by mouth two times a day. Refills: 0. PATIENT EDUCATION INFORMATION Instructions: [place], [place] [facility] DISCHARGE INSTRUCTIONS: SHOULDER SURGERY [...] persistent vomiting. Jordan Bhakta, DO [facility] [address] [place] [address] Reviewed: Normal [facility] Patient Education - Texton 0 06-14-2020 Patient Education - Text [place], [place] [facility] DISCHARGE INSTRUCTIONS: SHOULDER SURGERY [...] persistent vomiting. Jordan Bhakta, DO [facility] [address] [place], [place] [address] Reviewed: Normal [facility] BMPon 06-13-2020 Anion gap [Moles/Vol] 12 mmol/L Normal - [facility] Comment on above: Performed By: #### 2 881157, [id number], [id number] ####[facility] [address] [place] [address] Calcium [Mass/Vol] 9.1 mg/dL Normal 8.9-11.1 [facility] Comment on above: Performed By: #### 2 501797, [id number], [id number] ####[facility] [address] [place] [address] Chloride [Moles/Vol] 105 mmol/L Normal 101-111 [facility] Comment on above: Performed By: #### 2 399162, [id number], 4554214 ####[facility] [address] [place] [address] CO2 [Moles/Vol] 29 mmol/L Normal 21-31 [facility] Comment on above: Performed By: #### 2 540609, [id number], [id number] ####[facility] [address] [place] [address] Creatinine [Mass/Vol] 0.7 mg/dL Normal 0.5-1.3 [facility] Comment on above: Performed By: #### 2 454058, [id number], 1165111 ####[facility] [address] [place] [address] Glucose [Mass/Vol] 82 mg/dL Normal 55-199 [facility] Comment on above: Result Comment: If t his glucose result represents a fasting glucose, interpretation should refer to the following reference range: 55-99 mg/dL Performed By: #### 2 460000, [id number], [id number] ####[facility] [address] [place] [address] Potassium [Moles/Vol] 3.9 mmol/L Normal 3.5-5.3 [facility] Comment on above: Performed By: #### 2 800160, 95006540, 0361452 ####[facility] [address] [place] [address] Sodium [Moles/Vol] 142 mmol/L Normal 135-145 [facility] Comment on above: Performed By: #### 2 941894, 99854771, 1721684 ####[facility] [address] [place] [address] Urea nitrogen [Mass/Vol] 14 mg/dL Normal 5-21 [facility] Comment on above: Performed By: #### 2 498256, 53062209, 2562311 ####[facility] [address] [place] [address] Urea nitrogen/Creatinine [Mass ratio] 20 No Units Normal 10-20 [facility] Comment on above: Performed By: #### 2 058731, 90478769, 7291782 ####[address] [address] CBC w/Indiceson 06-13-2020 Erythrocyte distribution width (RBC) [Ratio] 14.3 % High 10.9-14.2 [facility] Comment on above: Performed By: #### 2 998726, 01594594, 9418503 ####[address] [address] Hematocrit (Bld) [Volume fraction] 36.4 % Normal 34.0-46.0 [facility] Comment on above: Performed By: #### 2 003348, 39607267, 2988005 ####[address] [address] Hemoglobin (Bld) [Mass/Vol] 11.9 g/dL Low 12.0-16.0 [facility] Comment on above: Performed By: #### 2 499015, 28967624, 7383338 ####[address] [address] MCH (RBC) [Entitic mass] 27.5 pg Normal 27.0-34.0 [facility] Comment on above: Performed By: #### 2 861655, 19324059, 3804841 ####[address] [address] MCHC (RBC) [Mass/Vol] 32.6 g/dL Normal 31.4-36.0 [facility] Comment on above: Performed By: #### 2 326237, 41803787, 3977723 ####[facility] [address] [place] [address] MCV (RBC) [Entitic vol] 84.4 fL Normal 80.0-100.0 [facility] Comment on above: Performed By: #### 2 437860, 75943620, 3262652 ####[address] [address] Platelet mean volume (Bld) [Entitic vol] 7.5 fL Normal 6.4-10.8 [facility] Comment on above: Performed By: #### 2 067865, 65749543, 3126719 ####[address] [address] Platelets (Bld) [#/Vol] 319.0 E9/L Normal 150.0-500.0 [facility] Comment on above: Performed By: #### 2 276133, 34313438, 5289611 ####[address] [address] RBC (Bld) [#/Vol] 4.3 E12/L Normal 4.3-5.9 [facility] Comment on above: Performed By: #### 2 630521, 95046944, 7816620 ####[address] [address] WBC corrected for nucl RBC Auto (Bld) [#/Vol] 6.8 E9/L Normal 4.0-11.0 [facility] Comment on above: Performed By: #### 2 259025, 59329671, 7929657 ####[address] [address] Consent for Treatmenton Consent for Treatment [id number] 0CD:127 Normal [facility] Physician Orderon 06-13-2020 Physician Order [id number]. 00CD:127 Normal [facility] Physician Order [id number]. 00CD:127 Normal [facility] Progress Note-Physicianon Progress Note-Physician Patient: ANTOINETTE RECIO [...] selected or recorded. Procedure history: Gastric sleeve ([id number]) in 2019 at 22 Years. Tonsillectomy ([id number]). Social History Social & Psychosocial Habits Alcohol 06/11/2020 Use: Current Type: Beer, Liquor Frequency: 3-5 times per week 06/11/2020 Risk Assessment: Medium Risk Substance Abuse 06/11/2020 Risk Assessment: Denies Substance Abuse Comment: denies - 06/11/2020 12:27 - Renetta Connor RN Tobacco Comment: denies - 06/11/2020 12:26 - Renetta Connor RN 06/11/2020 Risk Assessment: Denies Tobacco Use . Physical Examination No qualifying data available Airway: Normal oral/pharyngeal anatomy.. Respiratory: Adequate air exchange.. Cardiovascular: Adequate perfusion and function. Review / Management Results review: No qualifying data available . Plan [place] [employer] Anesthesiologists (ASA) physical status classification: Class I. Anesthetic Preoperative Plan Anesthesia: General. , Regional Interscalene Block. Anesthetic plan, risks, benefits, and alternatives discussed with the patient and/or family. Pt. and/or family present and agree to proceed as planned.. Discussed the importance of abstaining from tobacco products, and offered counseling if desired. Normal [facility] Comment on above: Result Comment: Elec tronically Signed By: Godfrey Graves JR, DO.candice\Date and Time Signed: 06/13/20 15:05 EDT U BetaHcg Qualon 06-13-2020 HCG.beta subunit (U) [Moles/Vol] Negative Normal [facility] Comment on above: Performed By: #### 2 [id number] #### [facility] Laboratory [address] [place] [address] eGFRon 06-13-2020 GFR/1.73 sq M.predicted among blacks MDRD (S/P/Bld) [Vol rate/Area] mL/min/{1.73_m2} Normal >=59 [facility] Comment on above: Order Comment: Order added by Discern Expert. Result Comment: eGFR is race adjusted. AA=. Performed By: #### 2 159631, 34055587, 0433904 ####[facility] [address] [place] [address] GFR/1.73 sq M.predicted among non-blacks MDRD (S/P/Bld) [Vol rate/Area] mL/min/{1.73_m2} Normal >=59 [facility] Comment on above: Order Comment: Order added by Discern Expert. Result Comment: Research Software Engineer mile kidney disease could be indicated at eGFR's of less than 60 mL/min/1.73m2. Kidney failure is indicated at less than 15 mL/min/1.73m2. Performed By: #### 2 302470, 56779963, 5781534 ####[facility] [address] [place] [address] COVID-19 [place] 06-12-2020 Employed in Healthcare NO Normal [facility] Comment on above: Performed By: #### 2 [id number] ####[facility] [address] [place] [address] First Test Unknown Normal [facility] Comment on above: Performed By: #### 2 [id number] ####[facility] [address] [place] [address] Hospitalized? NO Normal [facility] Comment on above: Performed By: #### 2 [id number] ####[facility] [address] [place] [address] ICU NO Normal [facility] Comment on above: Performed By: #### 2 [id number] ####[facility] [address] [place] [address] ? Unknown Normal [facility] Comment on above: Performed By: #### 2 [id number] ####[facility] [address] [place] [address] Resides in a [facility] Care Setting NO Normal [facility] Comment on above: Performed By: #### 2 [id number] ####[place] [address] [place] [address] Symptomatic as defined by [facility] Unknown Normal [facility] Comment on above: Performed By: #### 2 [id number] ####[place] [address] [place] [address] Physician Orderon 06-12-2020 Physician Order [id number] 0CD:127 [facility] Consent for Treatmenton Consent for Treatment [id number] 0CD:127 [facility] Discharge Instructionson Discharge Instructions [id number]. 00CD:127 Normal [facility] ED Clinical Summaryon 2020 ED Clinical Summary [place] [id number] ED Clinical Summary Person Information Name: ANTOINETTE RECIO Yeimy/[facility] Age: 25 Years : 1995 Sex: Female Language: Pakistani PCP: Isaiah BHAKTA MD Marital Status: Visit [...] 06/11/2020 12:47:55 06/11/2020 12:47:55 06/11/2020 12:47:55 ADDRESS: [address] [place] [phone] PHYS DOC NOTES: MEDICAL INFORMATION: Prescriptions Given: [...] Instructions: Follow up: With: Address: When: Jordan Bernardo [address] [place] [address] Business (1) 06/12/2020 3:15 PM With: Address: When: Isaiah BHAKTA [address] [place] [address] Business (1) In 3 days DIAGNOSIS: Fracture of left clavicle Normal [facility] ED Note-Physicianon 06-12-19 ED Note-Physician Basic Information Time Seen: Sara Burdick DO 06/11/2020 12:18 Chief Complaint Pt reports broken collar bone and stitches above eye. Went to [facility] sat and sent to [place]. Pt reports still in pain and was [...] left clavicle. She was taken from the [facility] transferred to a hospital in [place] where she was discharged 20 minutes later [...] see the patient tomorrow at [address] in [place] and she is treated with anti-inflammatories and [...] Jordan Bhakta 06/12/2020 03:15 PM EDT [address] [place] [address]- Business (1) Additional Instructions: Isaiah BHAKTA In 3 days [address] [place] [address]- Business (1) Additional Instructions: Problem List/Past Medical [...] in spine. Signed By: Nathaniel SIMEON, Marisa Self Normal [facility] Comment on above: Result Comment: Elec tronically Signed By: Sara Burdick DO\.br\Date and Time Signed: 06/11/20 12:39 EDT ED Patient Education Noteon 06-11-2020 ED Patient Education Note Normal [facility] ED Patient Summaryon 021 ED Patient Summary [place] [id number] Patient Discharge Instructions Person Information Name: ANTOINETTE RECIO Age: 25 Years Arrival Date: 06/11/2020 10:49:37 Discharge Diagnosis: Fracture of left clavicle Primary Care Physician: Isaiah BHAKTA MD Provider Information Primary Provider: Sara Burdick DO [employer] Field Assistant:None The exam and treatment you received in the Emergency Department were for an urgent problem and are not intended as complete care. It is important that you follow up with a doctor, nurse practitioner, or physician?s customer service assistant for ongoing care. If your symptoms become worse or you do not improve as expected and you are unable to reach your usual health care provider, you should return to the Emergency Department. We are available 24 hours a day. ANTOINETTE RECIO has been given the following list of patient education materials, prescriptions and follow-up instructions: Follow-up Instructions: With: Address: When: Jordan Bernardo [address] [place] [address] Business (1) 06/12/2020 3:15 PM With: Address: When: Isaiah BHAKTA [address] [place] [address] Business (1) In 3 days In the event that this physician does not participate in your insurance network, please consult with your insurance company to find a nearby participating provider. Patient Education Materials: A MESSAGE TO ALL PATIENTS REGARDING OPIOIDS PRESCRIPTION OPIOIDS: WHAT YOU NEED TO KNOW Prescription opioids can be used to help relieve jeklqqzo-na-zdgosq pain and are often prescribed following a [...] care pro (more content not included)... Normal [facility] XR Chest 2 Viewson XR Chest 2 [...] Armstrong MD Transcribed by: MICHAEL Technologist: ABDULLAHI [facility] CBC AUTO DIFFon 06-10-2020 BASO # 0.1 103/ul Normal 0.0-0.1 [facility] Comment on above: Performed By: #### C BC #### [facility] [address] [place] [id number] Kinjal Sherine Basophils/100 WBC (Bld) 0.5 % Normal 0.2-2.0 [facility] Comment on above: Performed By: #### C BC #### [facility] [address] [place] [address] Kinjal Sherine EO # 0.2 103/ul Normal 0.0-0.7 [facility] Comment on above: Performed By: #### C BC #### [facility] [address] [place] [address] Kinjal Sherine Eosinophils/100 WBC (Bld) 1.8 % Normal 0.9-7.0 [facility] Comment on above: Performed By: #### C BC #### [facility] [address] [place] [address] Kinjal Sherine Erythrocyte distribution width (RBC) [Ratio] 13.7 % Normal 11.0-15.0 [facility] Comment on above: Performed By: #### C BC #### [facility] [address] [place] [address] Kinjal Sherine Hematocrit (Bld) [Volume fraction] 38.2 % Normal 36.0-48.0 [facility] Comment on above: Performed By: #### C BC #### [facility] [address] [place] [id number] Kinjal Sherine Hemoglobin (Bld) [Mass/Vol] 11.9 g/dL Critically low 12.0-16.0 [facility] Comment on above: Performed By: #### C BC #### [facility] [address] [place] [address] Kinjal Sherine IG # 0.03 10e3/ul Normal 0.00-0.03 [facility] Comment on above: Performed By: #### C BC #### [facility] [address] [place] [address] Kinjal Sherine IG % 0.3 % Normal 0.0-0.5 [facility] Comment on above: Performed By: #### C BC #### [facility] [address] [place] [address] Kinjal Sherine LYMPH # 1.8 103/ul Normal 1.2-3.8 [facility] Comment on above: Performed By: #### C BC #### [facility] [address] [place] [address] Kinjal Sherine Lymphocytes/100 WBC (Bld) 17.4 % Critically low 20.5-60.0 [facility] Comment on above: Performed By: #### C BC #### [facility] [address] [place] [address] Kinjal Sherine MANUAL DIFF REQ NO Normal [facility] Comment on above: Performed By: #### C BC #### [facility] [address] [place] [address] Kinjal Sherine MCH (RBC) [Entitic mass] 27.0 pg Normal 26.7-34.0 [facility] Comment on above: Performed By: #### C BC #### [facility] [address] [place] [address] Kinjalroverto Mckeonen MCHC (RBC) [Mass/Vol] 31.2 g/dL Normal 29.9-35.2 [facility] Comment on above: Performed By: #### C BC #### [facility] [address] [place] [address] Kinjal Sherine MCV (RBC) [Entitic vol] 86.8 fL Normal 81.0-99.0 [facility] Comment on above: Performed By: #### C BC #### [facility] [address] [place] [address] Kinjal Sherine MONO # 0.3 103/ul Normal 0.3-0.8 [facility] Comment on above: Performed By: #### C BC #### [facility] [address] [place] [address] Kinjal Basurto Monocytes/100 WBC (Bld) 3.2 % Normal 1.7-12.0 [facility] Comment on above: Performed By: #### C BC #### [facility] [address] [place] [address] Kinjal Basurto NEUT # 7.8 103/ul Critically high 1.4-6.5 [facility] Comment on above: Performed By: #### C BC #### [facility] [address] [place] [address] Kinjal Basurto Neutrophils/100 WBC (Bld) 76.8 % Critically high 43.0-75.0 [facility] Comment on above: Performed By: #### C BC #### [facility] [address] [place] [address] Kinjal Basurto Platelet mean volume (Bld) [Entitic vol] 9.1 fL Critically low 9.5-13.5 [facility] Comment on above: Performed By: #### C BC #### [facility] [address] [place], [place] [id number] Kinjalroverto Mckeonen PLT 350 103/ul Normal 150-450 [facility] Comment on above: Performed By: #### C BC #### [facility] [address] [place] [address] Kinjal Sherine RBC 4.40 106/ul Normal 4.20-5.40 [facility] Comment on above: Performed By: #### C BC #### [facility] [address] [place], [place] [address] Kinjal Sherine WBC 10.1 103/ul Normal 4.0-11.0 [facility] Comment on above: Performed By: #### C BC #### [facility] [address] [place], [place] [id number] Kinjal Sherine CT CHEST W CONon 06-10-2020 CT CHEST [...] ARELI RIVERA Date: 2020-06-10 03:43 Normal [facility] [address] CSPINE WO CONon CT CSPINE WO [...] Haylie VILLAR Date: 2020-06-10 01:[address] [facility] [address] HEAD WO CONon 06-10-2020 CT HEAD [...] ARELI RIVERA Date: 2020-06-10 01:01 Normal [facility] DRUG SCREEN RAPID (URINE)on 06-10-2020 AMP Negative Normal NEGATIVE [facility] Comment on above: Performed By: #### E RUR, DRUGRPD #### [facility] [address] [place] [address] Kinjal Sherine BAR Negative Normal NEGATIVE [facility] Comment on above: Performed By: #### E RUR, DRUGRPD #### [facility] [address] [place] [address] Kinjal Sherine BUP Negative Normal NEGATIVE [facility] Comment on above: Performed By: #### E RUR, DRUGRPD #### [facility] [address] [place] [address] Kinjal Sherine BZO Negative Normal NEGATIVE [facility] Comment on above: Performed By: #### E RUR, DRUGRPD #### [facility] [address] [place] [address] Kinjal Sherine CURTIS Negative Normal NEGATIVE [facility] Comment on above: Performed By: #### E RUR, DRUGRPD #### [facility] [address] [place] [address] Kinjal Sherine CUT-OFFS SEE BELOW Normal [facility] Comment on above: Result Comment: AMP (Amphetamine): 500ng/mL, BAR (Barbituates): 200 ng/mL, BZO (Benzodiazepines): 150 ng/mL, BUP (Buprenorphine): 10 ng/mL, CURTIS (Cocaine): 150 ng/mL, mAMP (Methamphetamine): 500 ng/mL, MTD (Methadone): 200 ng/mL, OPI (Opiates): 100 ng/mL, OXY (Oxycodone): 100 ng/mL, PCP (Phencyclidine): 25 ng/mL, PPX (Propoxyphene): 300 ng/mL, THC (Cannabinoids): 50 ng/mL, TCA (Trycyclic Antidepressants): 300 ng/mL Performed By: #### Mitchell RUR DRUGRPD #### [facility] [address] [place] [address] Kinjal Sherine DRUG CUT HEADER DRUG CLASS TEST SYST EM CUT-OFF CONCENTRATIONS ARE FOLLOWS: Normal [facility] Comment on above: Performed By: #### E RUR, DRUGRPD #### [facility] [address] [place] [address] Kinjal Sherine mAMP Negative Normal NEGATIVE [facility] Comment on above: Performed By: #### Mitchell RUR, DRUGRPD #### [facility] [address] [place] [address] Kinjal Sherine MTD Negative Normal NEGATIVE [facility] Comment on above: Performed By: #### Mitchell RUR DRUGRPD #### [facility] [address] [place] [address] Kinjal Sherine OPI Positive Abnormal NEGATIVE [facility] Comment on above: Performed By: #### Mitchell RUR, DRUGRPD #### [facility] [address] [place] [address] Kinjal Sherine OXY Negative Normal NEGATIVE [facility] Comment on above: Performed By: #### Mitchell RUR, DRUGRPD #### [facility] [address] [place] [address] Kinjal Sherine PCP Negative Normal NEGATIVE [facility] Comment on above: Performed By: #### E RUR, DRUGRPD #### [facility] [address] [place] [address] Kinjal Sherine PPX Negative Normal NEGATIVE [facility] Comment on above: Performed By: #### Mitchell RUR, DRUGRPD #### [facility] [address] [place] [address] Kinjal Sherine TCA Negative Normal NEGATIVE [facility] Comment on above: Performed By: #### E RUR, DRUGRPD #### [facility] [address] [place] [address] Kinjal Sherine THC Negative Normal NEGATIVE [facility] Comment on above: Performed By: #### E RUR, DRUGRPD #### [facility] [address] [place] [address] Kinjal Basurto ER URINE PROFILEon 1 Bilirubin Ql (U) Negative Normal NEGATIVE [facility] Comment on above: Performed By: #### E RUR, DRUGRPD #### [facility] [address] [place] [address] Kinjal Sherine Clarity (U) CLEAR Normal CLEAR [facility] Comment on above: Performed By: #### E RUR, DRUGRPD #### [facility] [address] [place] [address] Kinjal Sherine Color (U) LT. YELLOW Normal YELLOW [facility] Comment on above: Performed By: #### E RUR, DRUGRPD #### [facility] [address] [place] [address] Kinjal Basurto ERUAHD A micrscopic examination will be performed if indicated. Normal [facility] Comment on above: Performed By: #### E RUR, DRUGRPD #### [facility] [address] [place] [address] Kinjal Sherine Glucose Ql (U) Negative Normal NEGATIVE [facility] Comment on above: Performed By: #### E RUR, DRUGRPD #### [facility] [address] [place] [address] Kinjal Sherine Hemoglobin Ql (U) Negative Normal NEGATIVE [facility] Comment on above: Performed By: #### E RUR, DRUGRPD #### [facility] [address] [place] [address] Kinjal Sherine Ketones Ql (U) Negative Normal NEGATIVE [facility] Comment on above: Performed By: #### E RUR, DRUGRPD #### [facility] [address] [place] [address] Kinjal Sherine LEUKOCYTES Negative Normal NEGATIVE [facility] Comment on above: Performed By: #### E RUR, DRUGRPD #### [facility] [address] [place] [address] Kinjal Basurto Nitrite Ql (U) Negative Normal NEGATIVE [facility] Comment on above: Performed By: #### Mitchell PETERSEN DRUGCARLOS A #### [facility] [address] [place] [address] Kinjal Basurto pH (U) 7.5 [pH] Normal 5-9 [facility] Comment on above: Performed By: #### Mitchell PETERSEN DRUGHARRYD #### [facility] [address] [place] [address] Kinjal Basurto SPEC GRAVITY 1.010 Normal 1.005-<=1.02 5 [facility] Comment on above: Performed By: #### Mitchell PETERSEN DRUGCARLOS A #### [facility] [address] [place] [address] Kinjal Basurto UA PROTEIN Negative Normal NEGATIVE/ TRACE [facility] Comment on above: Performed By: #### Mitchell PETERSEN DRUGCARLOS A #### [facility] [address] [place] [address] Kinjal Basurto UR MICRO IND NOT INDICATED Normal [facility] Comment on above: Performed By: #### Mitchell PETERSEN DRUGCARLOS A #### [facility] [address] [place] [address] Kinjal Basurto Urobilinogen Qn (U) 0.2 {Jazmine'U}/dL Normal 0.2 - 1. 0 [facility] Comment on above: Performed By: #### Mitchell PETERSEN DRUGHARRYD #### [facility] [address] [place] [address] Kinjal Basurto ETHANOL (BLD ALC)on 06-11-19 21 ALC NOTE NOTE: 80 mg/dl is th e legal limit for a blood alcohol level Normal [facility] Comment on above: Performed By: #### E TH ####[facility] [address] [place] [address]Kinjal Basurto Ethanol [Mass/Vol] 200 mg/dL Normal [facility] Comment on above: Performed By: #### E TH ####[facility] [address] [place], [place] [address]Gerroverto Basurto PROF 14(COMP METB)on 021 Albumin [Mass/Vol] 3.8 g/dL Normal 3.5-5.0 [facility] Comment on above: Performed By: #### C MP #### [facility] [address] [id number] Kinjal Sherine Albumin/Globulin [Mass ratio] 1.2 {ratio} Normal [facility] Comment on above: Performed By: #### C MP #### [facility] [address] [place], [place] [id number] Kinjal Sherine ALP [Catalytic activity/Vol] 54 U/L Normal 38-126 [facility] Comment on above: Performed By: #### C MP #### [facility] [address] [place] [address] Kinjal Sherine ALT [Catalytic activity/Vol] 19 U/L Normal 9-52 [facility] Comment on above: Performed By: #### C MP #### [facility] [address] [address] Kinjal Sherine Anion gap [Moles/Vol] 12.2 mmol/L Normal [facility] Comment on above: Performed By: #### C MP #### [facility] [address] [place] [address] Kinjal Sherine AST [Catalytic activity/Vol] 13 U/L Critically low 14-36 [facility] Comment on above: Performed By: #### C MP #### [facility] [address] [place] [address] Kinjal Sherine Bilirubin [Mass/Vol] 0.3 mg/dL Normal 0.2-1.3 [facility] Comment on above: Performed By: #### C MP #### [facility] [address] [place], [place] [id number] Kinjal Sherine Calcium [Mass/Vol] 8.4 mg/dL Normal 8.4-10.2 [facility] Comment on above: Performed By: #### C MP #### [facility] [address] [place], [place] [phone] Kinjal Sherine Chloride [Moles/Vol] 109 mmol/L Critically high 98-107 [facility] Comment on above: Performed By: #### C MP #### [facility] [address] [id number] Kinjal Sherine CO2 [Moles/Vol] 27.5 mmol/L Normal 22.0-30.0 [facility] Comment on above: Performed By: #### C MP #### [facility] [address] [place], [place] [address] Kinjal Sherine Creatinine [Mass/Vol] 0.73 mg/dL Normal 0.52-1.04 [facility] Comment on above: Performed By: #### C MP #### [facility] [address] [place], [place] [id number] Kinjal Sherine EGFR-AF STATELESS >60 Normal >=60 [facility] Comment on above: Performed By: #### C MP #### [facility] [address] [place] [address] Kinjal Sherine EGFR-NON AF STATELESS >60 Normal >=60 [facility] Comment on above: Performed By: #### C MP #### [facility] [address] [place] [address] Kinjal Sherine Globulin (S) [Mass/Vol] 3.3 g/dL Normal T [facility] Comment on above: Performed By: #### C MP #### [facility] [address] [place] [address] Kinjal Sherine Glucose [Mass/Vol] 85 mg/dL Normal 74-106 [facility] Comment on above: Performed By: #### C MP #### [facility] [address] [place] [address] Kinjal Sherine Potassium [Moles/Vol] 3.7 mmol/L Normal 3.4-5.0 [facility] Comment on above: Performed By: #### C MP #### [facility] [address] [place], [place] [phone] Kinjal Sherine Protein [Mass/Vol] 7.1 g/dL Normal 6.1-8.2 [facility] Comment on above: Performed By: #### C MP #### [facility] [address] [place], [place] [address] Kinjal Basurto Sodium [Moles/Vol] 145 mmol/L Normal 137-145 [facility] Comment on above: Performed By: #### C MP #### [facility] [address] [place], [place] [address] Kinjal Basurto Urea nitrogen [Mass/Vol] 9.0 mg/dL Normal 7.0-17.0 [facility] Comment on above: Performed By: #### C MP #### [facility] [address] [address] Kinjal Basurto Urea nitrogen/Creatinine [Mass ratio] 12.3 mg/mg Normal [facility] Comment on above: Performed By: #### C MP #### [facility] [address] [address] Kinjal Basurto Rapid Covid-19 PCR (CVDRPD)o n 06-10-2020 SARS-CoV-2 (COVID-19) RNA AIDEE+probe Ql (Unsp spec) Not detected Normal NOT DETECTED [facility] Comment on above: Result Comment: This test is not yet approved or cleared by the [place] Food and Drug Administration (FDA). This test was developed by [employer], [place], [place]. The performance characteristics of this test were validated by [facility]. The results are not intended to be used as the sole means for clinical diagnosis or patient management decisions. [facility] is authorized under Clinical Laboratory Improvement Amendments (CLIA) to perform high- complexity testing. When diagnostic testing is negative, the possibility of a false negative should be considered in the context of a patient's recent exposures and the presence of clinical signs and symptoms consistent with SARS-CoV-2. Performed By: #### C VDRPD ####[facility] [address] [place], [place] [address]Nqzpyr Karen XR CLAVICLE LTon 06-10-2020 XR CLAVICLE LT [...] by: Haylie VILLAR Date: 2020-06-10 01:50 Normal [facility] XR SHOULDER LT 2V or >on [...] by: BENNY ARMSTRONG Date: 2020-06-10 01:45 Normal [facility] Cult, Bloodon 2018 Cult, Blood Specimen Description .BLOOD Special Requests RT HAND Culture NO GROWTH 6 DAYS Report Status FINAL 2018 [facility] Comment on above: Performed By: #### B CUL2 ####[facility] [place], [place] [id number] lab Director: Reed Mckeon MD [facility],Bloodon 2018 Cult,Blood Specimen Description .BLOOD Special Requests L ARM 10CC Culture NO GROWTH 6 DAYS Report Status FINAL 2018 [facility] Comment on above: Performed By: #### B C ####[facility] [place], [place] [id number] lab Director: Reed Mckeon MD Basic Metab w/rfx MGon 04-16 (cont.) [facility] Comment on above: Result Comment: Aver age GFR for 20-29 years old: 116 mL/min/1.73sq m Chronic Kidney Disease: <60 mL/min/1.73sq m Kidney failure: <15 mL/min/1.73sq m eGFR calculated using average adult body mass. Additional eGFR calculator available at: http://www.PsomasFMG.Ikonisys/multiple_crcl_2012.htm Performed By: #### C BC, BMPX ####[facility] [address] [place] [address] Lab Director: Reed Mckeon MD Anion gap molar conc 13 mmol/L Normal 9-17 [facility] Comment on above: Performed By: #### C BC, BMPX ####[facility] [address] [place], [place] [phone] Director: Reed Mckeon MD Calcium mass conc 8.7 mg/dL Normal 8.6-10.4 [facility] Comment on above: Performed By: #### C BC, BMPX ####[facility] [address] [place], [place] [phone] Director: Reed Mckeon MD Chloride molar conc 110 mmol/L High 98-107 [facility] Comment on above: Performed By: #### C BC, BMPX ####[facility] [address] [place], [place] [phone] Director: Reed Mckeon MD CO2 molar conc 18 mmol/L Low 20-31 [facility] Comment on above: Performed By: #### C BC, BMPX ####[facility] [address] [place], [place] [phone])[phone] Director: Reed Mckeon MD Creatinine mass conc 0.49 mg/dL Low 0.50-0.90 [facility] Comment on above: Performed By: #### C BC, BMPX ####[facility] [address] [place], [place] [phone])[phone] Director: Reed Mckeon MD GFR, Amer >60 Normal >60 [facility] Comment on above: Performed By: #### C BC, BMPX ####[facility] [address] [place] [address] Lab Director: Reed Mckeon MD GFR,non Amer >60 Normal >60 [facility] Comment on above: Performed By: #### C BC, BMPX ####[facility] [address] [place], [place] [phone] Director: Reed Mckeon MD Glucose mass conc 74 mg/dL Normal 70-99 [facility] Comment on above: Performed By: #### C BC, BMPX ####[facility] [address] [place] [address] Lab Director: Reed Mckeon MD Potassium molar conc 4.2 mmol/L Normal 3.7-5.3 [facility] Comment on above: Performed By: #### C BC, BMPX ####[facility] [address] [place], [place] [phone] Director: Reed Mckeon MD Sodium molar conc 141 mmol/L Normal 135-144 [facility] Comment on above: Performed By: #### C BC, BMPX ####[facility] [address] [place], [place] [phone] Director: Reed Mckeon MD Urea nitrogen mass conc 6 mg/dL Normal 6-20 [facility] Comment on above: Performed By: #### C BC, BMPX ####[facility] [address] [place], [place] [phone] Director: Reed Mckeon MD BUN/CRE Ratio NOT REPORTED Normal 9-20 [facility] Comment on above: Performed By: #### C BC, BMPX ####[facility] [address] [place], [place] [phone] Director: Reed Mckeon MD Staging: NOT REPORTED Normal [facility] Comment on above: Performed By: #### C BC, BMPX ####[facility] [address] [place] [address] lab Director: Reed Mckeon MD CBCon 04-16-2018 Erythrocyte distribution width Ratio (RBC) 12.9 % Normal 11.8-14.4 [facility] Comment on above: Performed By: #### C BC, BMPX ####[facility] [address] [place] [address] lab Director: Reed Mckeon MD Hematocrit Volume Fraction (Bld) 33.9 % Low 36.3-47.1 [facility] Comment on above: Performed By: #### C BC, BMPX ####[facility] [address] [place] [address] lab Director: Reed Mckeon MD Hemoglobin mass conc (Bld) 10.6 g/dL Low 11.9-15.1 [facility] Comment on above: Performed By: #### C BC, BMPX ####[facility] [address] [place], [place] [phone] Director: Reed Mckeon MD MCH Entitic mass (RBC) 28.3 pg Normal 25.2-33.5 [facility] Comment on above: Performed By: #### C BC, BMPX ####[facility] [address] [place] [address] Lab Director: Reed Mckeon MD MCHC mass conc (RBC) 31.3 g/dL Normal 28.4-34.8 [facility] Comment on above: Performed By: #### C BC, BMPX ####[facility] [address] [place], [place] [phone] Director: Reed Mckeon MD MCV Entitic volume (RBC) 90.6 fL Normal 82.6-102.9 [facility] Comment on above: Performed By: #### C BC, BMPX ####[facility] [address] [place] [address] Lab Director: Reed Mckeon MD NRBC Automated 0.0 per 100 WBC Normal 0.0 [facility] Comment on above: Performed By: #### C BC, BMPX ####[facility] [address] [place] [address] Lab Director: Reed Mckeon MD Platelet mean volume Entitic volume (Bld) 9.8 fL Normal 8.1-13.5 [facility] Comment on above: Performed By: #### C BC, BMPX ####[facility] [address] [place] [address] Lab Director: Reed Mckeon MD Platelets #/vol (Bld) 257 10*3/uL Normal 138-453 [facility] Comment on above: Performed By: #### C SARWAT, BMPX ####[facility] [address] [place] [address] [phone] Director: Reed Mckeon MD RBC #/vol (Bld) 3.74 10*6/uL Low 3.95-5.11 [facility] Comment on above: Performed By: #### C SARWAT, BMPX ####[facility] [address] [place] [address] Lab Director: Reed Mckeon MD WBC #/vol (Bld) 5.8 10*3/uL Normal 3.5-11.3 [facility] Comment on above: Performed By: #### C BC, BMPX ####[facility] [address] [place] [address] [phone] Director: Reed Mckeon MD Cult,Respiratoryon 9 Cult,Respiratory Specimen Description .EXPECTORATED SPUTUM Special Requests NOT REPORTED Direct Exam >10 EPITHELIAL CELLS/LPF: SPECIMEN IS CONTAMINATED WITH ORAL PHARYNGEAL YOGESH AND IS UNACCEPTABLE FOR BACTERIAL CULTURE. PLEASE SUBMIT ANOTHER SPECIMEN. EVERETTE Mathews NOTIFIED Culture NOT REPORTED Report Status FINAL 04/16/2018 Normal [facility] Comment on above: Performed By: #### R ESPC ####[address] [place] [address] Lab Director: Reed Mckeon MD Troponinon 04-16-2018 Troponin I.cardiac mass conc ng/mL Normal 0-14 [facility] Comment on above: Result Comment: High Sensitivity Troponin values cannot be compared with other Troponin methodologies. Patients with high levels of Biotin oral intake (i.e >5mg/day) may have falsely decreased Troponin levels. Samples collected within 8 hours of biotin intake may require additional information for diagnosis. Performed By: #### T ROPI ####[facility] [place] [address] lab Director: Reed Mckeon MD Gram Stainon 04-15-2018 Microscopic observation Gram stain Nom (Unsp spec) Specimen Description .EXPECTORATED SPUTUM Special Requests NOT REPORTED Direct Exam DUPLICATE ORDER Report Status FINAL 04/15/2018 Normal [facility] Comment on above: Performed By: #### P PPVS #### [facility] [address] [place] [address] HCG Screen, Bloodon 04-16-19 19 HCG Qn Negative Normal NEG [facility] Comment on above: Result Comment: Spec imens with hCG levels near the threshold of the test (25 mIU/mL) may give a negative or indeterminate result. In such cases, another test should be performed with a new specimen in 48-72 hours. If early is suspected clinically in this setting, correlation with quantitative serum b-hCG level is suggested. [facility] has confirmed the use of plasma for this test. This has not been cleared or approved by the U.S. Food and Drug Administration. The FDA has determined that such clearance is not necessary. Performed By: #### P PPVS #### [facility] [address] [place], [place] [phone] Legionella Ag, Uron 04-16-19 19 Legionella Ag, [...] of this test. Report Status FINAL 04/15/2018 [facility] Comment on above: Performed By: #### U LAG ####[address] [phone])[phone] Director: Reed Mckeon MD [facility] Viral Panelon 9 Adenovirus Not Detected Normal [facility] Comment on above: Performed By: #### P PPVS #### [address] [address] Bordetella pertussis Not Detected Normal [facility] Comment on above: Performed By: #### P PPVS #### [address] [address] Chlamyd.pneumoniae Not Detected Normal [facility] Comment on above: Performed By: #### P PPVS #### [address] [address] Coronavirus 229E Not Detected Normal [facility] Comment on above: Performed By: #### P PPVS #### [address] [address] Coronavirus HKU1 Not Detected Normal [facility] Comment on above: Performed By: #### P PPVS #### [address] [address] Coronavirus NL63 Not Detected Normal [facility] Comment on above: Performed By: #### P PPVS #### [address] [address] Coronavirus OC43 Not Detected Normal [facility] Comment on above: Performed By: #### P PPVS #### [address] [address] Human Metapneumo Not Detected Normal [facility] Comment on above: Performed By: #### P PPVS #### [address] [address] Influenza A Not Detected Normal [facility] Comment on above: Performed By: #### P PPVS #### [address] [address] Influenza B Not Detected Normal [facility] Comment on above: Performed By: #### P PPVS #### [address] [address] Mycoplas.pneumoniae Not Detected Normal [facility] Comment on above: Result Comment: Perf ormed by multiplexed nucleic acid assay. Performed By: #### P PPVS #### [address] [address] Parainfluenza 1 Not Detected Normal [facility] Comment on above: Performed By: #### P PPVS #### [address] [address] Parainfluenza 2 Not Detected Normal [facility] Comment on above: Performed By: #### P PPVS #### [address] [address] Parainfluenza 3 Not Detected Normal [facility] Comment on above: Performed By: #### P PPVS #### [facility] [employer] [address] [place] [address] Parainfluenza 4 Not Detected Normal [facility] Comment on above: Performed By: #### P PPVS #### [address] [address] Resp Syncytial Virus Not Detected Normal [facility] Comment on above: Performed By: #### P PPVS #### [address] [address] Rhino/Enterovirus Not Detected Normal [facility] Comment on above: Performed By: #### P PPVS #### [address] [address] Influenza A H1 NOT REPORTED Normal [facility] Comment on above: Performed By: #### P PPVS #### [address] [address] Influenza A H1-2009 NOT REPORTED Normal [facility] Comment on above: Performed By: #### P PPVS #### [address] [address] Influenza A H3 NOT REPORTED Normal [facility] Comment on above: Performed By: #### P PPVS #### [address] [address] Source: .NASOPHARYNGEAL SWAB Normal [facility] Comment on above: Performed By: #### P PPVS #### [address] [address] Strep pneum Ag,CSF/Uron 03-0 Strep pneum Ag,CSF/Ur Specimen Descripti on .CLEAN CATCH URINE Special Requests NOT REPORTED Direct Exam NEGATIVE: Strep pneumoniae antigen not detected Report Status FINAL 04/15/2018 Normal [facility] Comment on above: Performed By: #### S PAG ####[address] [address] Lab Director: Reed Mckeon MD Troponinon 04-15-2018 Troponin I.cardiac mass conc NOT REPORTED Normal <0.03 [facility] Comment on above: Performed By: #### T ROPI ####[facility] [id number] [place], [place] [id number] Lab Director: Reed Mckeon MD Troponin I.cardiac mass conc ng/mL Normal 0-14 [facility] Comment on above: Result Comment: High Sensitivity Troponin values cannot be compared with other Troponin methodologies. Patients with high levels of Biotin oral intake (i.e >5mg/day) may have falsely decreased Troponin levels. Samples collected within 8 hours of biotin intake may require additional information for diagnosis. Performed By: #### P PPVS #### [facility] [address] [place], [place] [phone] Troponin I.cardiac mass conc NOT REPORTED Normal <0.03 [facility] Comment on above: Performed By: #### P PPVS #### [facility] [address] [place], [place] [phone] XR CHEST PORTABLEon 04-16-19 XR CHEST PORTABLE EXAMINATION: SINGLE XRAY VIEW OF THE CHEST 04/15/2018 3:19 pm COMPARISON: 04/02/2018 HISTORY: ORDERING SYSTEM PROVIDED HISTORY: transferred from outlying facility due to PNA. POD#3 s/p lap sleeve gastrectomy. TECHNOLOGIST PROVIDED HISTORY: transferred from [facility] due to PNA. POD#3 s/p lap [...] Brando Agustin MD 04/15/18 Final result Normal [facility] FL ESOPHAGRAMon 04-14-2018 [place] ESOPHAGRAM EXAMINATION: SINGLE [...] persistent dysphagia and burning sensation. FINDINGS: Fluoroscopic procedure tech images were obtained of the upper abdomen [...] Steve Topete MD 04/14/18 Final result Normal [facility] Basic Metabolic Profon 04-13 (cont.) Normal [facility] Comment on above: Result Comment: Aver age GFR for 20-29 years old: 116 mL/min/1.73sq m Chronic Kidney Disease: <60 mL/min/1.73sq m Kidney failure: <15 mL/min/1.73sq m eGFR calculated using average adult body mass. Additional eGFR calculator available at: http://www.PsomasFMG.com/multiple_crcl_2012.htm Performed By: #### P PPVS #### [employer] [address] [place] [address] Anion gap molar conc 11 mmol/L Normal 9-17 [facility] Comment on above: Performed By: #### P PPVS #### [employer] [facility] [address] [place] [address] Calcium mass conc 8.8 mg/dL Normal 8.6-10.4 [facility] Comment on above: Performed By: #### P PPVS #### [address] [address] Chloride molar conc 104 mmol/L Normal 98-107 [facility] Comment on above: Performed By: #### P PPVS #### [address] [address] CO2 molar conc 24 mmol/L Normal 20-31 [facility] Comment on above: Performed By: #### P PPVS #### [facility] [employer] [address] [place] [address] Creatinine mass conc 0.68 mg/dL Normal 0.50-0.90 [facility] Comment on above: Performed By: #### P PPVS #### [address] [address] GFR, Amer >60 Normal >60 [facility] Comment on above: Performed By: #### P PPVS #### [facility] [address] [place] [address] GFR,non Amer >60 Normal >60 [facility] Comment on above: Performed By: #### P PPVS #### [address] [address] Glucose mass conc 90 mg/dL Normal 70-99 [facility] Comment on above: Performed By: #### P PPVS #### [address] [address] Potassium molar conc 4.4 mmol/L Normal 3.7-5.3 [facility] Comment on above: Performed By: #### P PPVS #### [address] [address] Sodium molar conc 139 mmol/L Normal 135-144 [facility] Comment on above: Performed By: #### P PPVS #### [address] [address] Urea nitrogen mass conc 5 mg/dL Low 6-20 [facility] Comment on above: Performed By: #### P PPVS #### [address] [address] BUN/CRE Ratio NOT REPORTED Normal 9-20 [facility] Comment on above: Performed By: #### P PPVS #### [address] [address] Staging: NOT REPORTED Normal [facility] Comment on above: Performed By: #### P PPVS #### [address] [address] CBCon 04-13-2018 Erythrocyte distribution width Ratio (RBC) 12.9 % Normal 11.8-14.4 [facility] Comment on above: Performed By: #### P PPVS #### [address] [address] Hematocrit Volume Fraction (Bld) 36.8 % Normal 36.3-47.1 [facility] Comment on above: Performed By: #### P PPVS #### [address] [address] Hemoglobin mass conc (Bld) 11.7 g/dL Low 11.9-15.1 [facility] Comment on above: Performed By: #### P PPVS #### [address] [address] MCH Entitic mass (RBC) 28.3 pg Normal 25.2-33.5 [facility] Comment on above: Performed By: #### P PPVS #### [address] [address] MCHC mass conc (RBC) 31.8 g/dL Normal 28.4-34.8 [facility] Comment on above: Performed By: #### P PPVS #### [address] [address] MCV Entitic volume (RBC) 88.9 fL Normal 82.6-102.9 [facility] Comment on above: Performed By: #### P PPVS #### [address] [address] NRBC Automated 0.0 per 100 WBC Normal 0.0 [facility] Comment on above: Performed By: #### P PPVS #### [address] [address] Platelet mean volume Entitic volume (Bld) 10.1 fL Normal 8.1-13.5 [facility] Comment on above: Performed By: #### P PPVS #### [address] [address] Platelets #/vol (Bld) 306 10*3/uL Normal 138-453 [facility] Comment on above: Performed By: #### P PPVS #### [address] [address] RBC #/vol (Bld) 4.14 10*6/uL Normal 3.95-5.11 [facility] Comment on above: Performed By: #### P PPVS #### [address] [address] WBC #/vol (Bld) 8.1 10*3/uL Normal 3.5-11.3 [facility] Comment on above: Performed By: #### P PPVS #### [address] [address] [place] ESOPHAGRAMon 03-05-2019 [place] ESOPHAGRAM EXAMINATION: SINGLE CONTRAST ESOPHAGRAM 04/13/2018 [...] Jordan Mejia MD 04/13/18 Final result Normal [facility] Basic Metabolic Profon 04-12 (cont.) Normal [facility] Comment on above: Result Comment: Aver age GFR for 20-29 years old: 116 mL/min/1.73sq m Chronic Kidney Disease: <60 mL/min/1.73sq m Kidney failure: <15 mL/min/1.73sq m eGFR calculated using average adult body mass. Additional eGFR calculator available at: http://www.PsomasFMG.Ikonisys/multiple_crcl_2012.htm Performed By: #### C SARWAT, BMP #### [facility] [address] [place] [address] [phone] Traffic Maintenance Officer: Reed Mckeon MD Anion gap molar conc 16 mmol/L Normal 9-17 [facility] Comment on above: Performed By: #### C SARWAT, BMP #### [facility] [address] [place], [place] [phone] Traffic Maintenance Officer: Reed Mckeon MD Calcium mass conc 8.9 mg/dL Normal 8.6-10.4 [facility] Comment on above: Performed By: #### C BC, BMP #### [facility] [address] [place] [phone] Traffic Maintenance Officer: Reed Mckeon MD Chloride molar conc 108 mmol/L High 98-107 [facility] Comment on above: Performed By: #### C BC, BMP #### [address] [address] Traffic Maintenance Officer: Reed Mckeon MD CO2 molar conc 19 mmol/L Low 20-31 [facility] Comment on above: Performed By: #### C BC, BMP #### [facility] [address] [place] [address] Traffic Maintenance Officer: Reed Mckeon MD Creatinine mass conc 0.62 mg/dL Normal 0.50-0.90 [facility] Comment on above: Performed By: #### C BC, BMP #### [address] [address] Traffic Maintenance Officer: Reed Mckeon MD GFR, Amer >60 Normal >60 [facility] Comment on above: Performed By: #### C BC, BMP #### [address] [address] Traffic Maintenance Officer: Reed Mckeon MD GFR,non Amer >60 Normal >60 [facility] Comment on above: Performed By: #### C BC, BMP #### [address] [address] Traffic Maintenance Officer: Reed Mckeon MD Glucose mass conc 124 mg/dL High 70-99 [facility] Comment on above: Performed By: #### C BC, BMP #### [address] [address] Traffic Maintenance Officer: Reed Mckeon MD Potassium molar conc 4.2 mmol/L Normal 3.7-5.3 [facility] Comment on above: Performed By: #### C BC, BMP #### [facility] [address] [place] [address] Traffic Maintenance Officer: Reed Mckeon MD Sodium molar conc 143 mmol/L Normal 135-144 [facility] Comment on above: Performed By: #### C BC, BMP #### [facility] [address] [place] [address] Traffic Maintenance Officer: Reed Mckeon MD Urea nitrogen mass conc 8 mg/dL Normal 6-20 [facility] Comment on above: Performed By: #### C BC, BMP #### [facility] [address] [place] [address] Traffic Maintenance Officer: Reed Mckeon MD BUN/CRE Ratio NOT REPORTED Normal - [facility] Comment on above: Performed By: #### C BC, BMP #### [address] [address] Traffic Maintenance Officer: Reed Mckeon MD Staging: NOT REPORTED Normal [facility] Comment on above: Performed By: #### C BC, BMP #### [address] [address] Traffic Maintenance Officer: Reed Mckeon MD CBCon 04-12-2018 Erythrocyte distribution width Ratio (RBC) 12.6 % Normal 11.8-14.4 [facility] Comment on above: Performed By: #### C BC, BMP #### [address] [address] Traffic Maintenance Officer: Reed Mckeon MD Hematocrit Volume Fraction (Bld) 44.2 % Normal 36.3-47.1 [facility] Comment on above: Performed By: #### C BC, BMP #### [address] [address] Traffic Maintenance Officer: Reed Mckeon MD Hemoglobin mass conc (Bld) 13.8 g/dL Normal 11.9-15.1 [facility] Comment on above: Performed By: #### C BC, BMP #### [address] [address] Traffic Maintenance Officer: Reed Mckeon MD MCH Entitic mass (RBC) 28.4 pg Normal 25.2-33.5 [facility] Comment on above: Performed By: #### C BC, BMP #### [address] [address] Traffic Maintenance Officer: Reed Mckeon MD MCHC mass conc (RBC) 31.2 g/dL Normal 28.4-34.8 [facility] Comment on above: Performed By: #### C BC, BMP #### [address] [address] Traffic Maintenance Officer: Reed Mckeon MD MCV Entitic volume (RBC) 90.9 fL Normal 82.6-102.9 [facility] Comment on above: Performed By: #### C BC, BMP #### [facility] [address] [place] [address] Traffic Maintenance Officer: Reed Mckeon MD NRBC Automated 0.0 per 100 WBC Normal 0.0 [facility] Comment on above: Performed By: #### C BC, BMP #### [facility] [address] [place] [address] Traffic Maintenance Officer: Reed Mckeon MD Platelet mean volume Entitic volume (Bld) 10.2 fL Normal 8.1-13.5 [facility] Comment on above: Performed By: #### C BC, BMP #### [facility] [address] [place] [address] Traffic Maintenance Officer: Reed Mckeon MD Platelets #/vol (Bld) 299 10*3/uL Normal 138-453 [facility] Comment on above: Performed By: #### C BC, BMP #### [facility] [address] [place] [address] Traffic Maintenance Officer: Reed Mckeon MD RBC #/vol (Bld) 4.86 10*6/uL Normal 3.95-5.11 [facility] Comment on above: Performed By: #### C BC, BMP #### [employer] [address] [place] [address] Traffic Maintenance Officer: Reed Mckeon MD WBC #/vol (Bld) 18.0 10*3/uL High 3.5-11.3 [facility] Comment on above: Performed By: #### C BC, BMP #### [employer] [address] [place] [address] Traffic Maintenance Officer: Reed Mckeon MD Surgical Pathologyon 019 Surgical Pathology (NOTE) [id number] [facility] [employer] CONSULTING PATHOLOGISTS [facility] ANATOMIC PATHOLOGY [address] [place] [phone] SURGICAL PATHOLOGY CONSULTATION Patient Name: ANTOINETTE RECIO [facility] Rec: [id number] Path Number: [id number] Collected: 04/12/2018 Received: 04/12/2018 Reported: 04/13/2018 13:37 -- Diagnosis -- Stomach, segmental resection: No histologic abnormality. Quincy Ayala Electronically Signed Out rdd/04/13/2018 Clinical Information Pre-op [...] with no areas of granularity or masses. 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 There is no histological evidence for Helicobacter. There is no intestinal metaplasia or dysplasia. The submucosa and muscularis propria show no histologic abnormality. Normal [facility] Comment on above: Performed By: #### P PPVS #### [employer] [address] [place] [phone] Nicotineon 04-08-2018 [id number] <2 Normal [facility] Comment on above: Performed By: #### C BC, PT, PTT, BMP #### [facility] [place] [address] Traffic Maintenance Officer: Reed Mckeon MD #### ANICOT #### [facility] [address] [place] [phone] Traffic Maintenance Officer: Eduin Alvarez MD Cotinine <2 Normal [facility] Comment on above: Performed By: #### C BC, PT, PTT, BMP #### [facility] [address] [place] [address] [phone] Traffic Maintenance Officer: Reed Mckeon MD #### ANICOT #### [facility] [address] [address] Traffic Maintenance Officer: Eduin Alvarez MD Nicotine <2 Normal [facility] Comment on above: Result Comment: (NOT E) [...] positive. Test developed and characteristics determined by [facility]. See Compliance Statement B: [place] [place] [employer]/CS Performed by [facility], [address] [place] [id number] [email or web address], Eduin Alvarez MD, Lab. Director Performed By: #### C BC, PT, PTT, BMP #### [address] [address] Traffic Maintenance Officer: Reed Mckeon MD #### ANICOT #### [facility] [address] [place] [address] Traffic Maintenance Officer: Eduin Alvarez MD APTTon 04-02-2018 aPTT Coag time (Bld) 24.7 s Normal 20.5-30.5 [facility] Comment on above: Performed By: #### C BC, PT, PTT, BMP #### [address] [address] Traffic Maintenance Officer: Reed Mckeon MD #### ANICOT #### [facility] [address] [place] [address] Traffic Maintenance Officer: Eduin Alvarez MD Basic Metabolic Profon 04-02 (cont.) Normal [facility] Comment on above: Result Comment: Aver age GFR for 20-29 years old: 116 mL/min/1.73sq m Chronic Kidney Disease: <60 mL/min/1.73sq m Kidney failure: <15 mL/min/1.73sq m eGFR calculated using average adult body mass. Additional eGFR calculator available at: http://www.PsomasFMG.Ikonisys/multiple_crcl_2012.htm Performed By: #### C BC, PT, PTT, BMP #### [address] [address] Traffic Maintenance Officer: Reed Mckeon MD #### ANICOT #### [facility] [address] [place] [address] Traffic Maintenance Officer: Eduin Alvarez MD Anion gap molar conc 15 mmol/L Normal 9-17 [facility] Comment on above: Performed By: #### C BC, PT, PTT, BMP #### [facility] [address] [place] [address] Traffic Maintenance Officer: Reed Mckeon MD #### ANICOT #### [facility] [address] [place], [place] [phone] Traffic Maintenance Officer: Eduin Alvarez MD Calcium mass conc 9.6 mg/dL Normal 8.6-10.4 [facility] Comment on above: Performed By: #### C BC, PT, PTT, BMP #### [address] [address] Traffic Maintenance Officer: Reed Mckeon MD #### ANICOT #### [facility] [address] [place], [place] [phone] Traffic Maintenance Officer: Eduin Alvarez MD Chloride molar conc 102 mmol/L Normal 98-107 [facility] Comment on above: Performed By: #### C BC, PT, PTT, BMP #### [address] [address] Traffic Maintenance Officer: Reed Mckeon MD #### ANICOT #### [facility] [address] [place], [place] [phone] Traffic Maintenance Officer: Eduin Alvarez MD CO2 molar conc 23 mmol/L Normal 20-31 [facility] Comment on above: Performed By: #### C BC, PT, PTT, BMP #### [address] [address] Traffic Maintenance Officer: Reed Mckeon MD #### ANICOT #### [facility] [address] [place], [place] [phone] Traffic Maintenance Officer: Eduin Alvarez MD Creatinine mass conc 0.62 mg/dL Normal 0.50-0.90 [facility] Comment on above: Performed By: #### C BC, PT, PTT, BMP #### [address] [address] Traffic Maintenance Officer: Reed Mckeon MD #### ANICOT #### [facility] [address] [place] [address] Traffic Maintenance Officer: Eduin Alvarez MD GFR, Amer >60 Normal >60 [facility] Comment on above: Performed By: #### C BC, PT, PTT, BMP #### [address] [address] Traffic Maintenance Officer: Reed Mckeon MD #### ANICOT #### [facility] [address] [place] [address] Traffic Maintenance Officer: Eduin Alvarez MD GFR,non Amer >60 Normal >60 [facility] Comment on above: Performed By: #### C BC, PT, PTT, BMP #### [address] [address] Traffic Maintenance Officer: Reed Mckeon MD #### ANICOT #### [address] [phone] Traffic Maintenance Officer: Eduin Alvarez MD Glucose mass conc 86 mg/dL Normal 70-99 [facility] Comment on above: Performed By: #### C BC, PT, PTT, BMP #### [address] [address] Traffic Maintenance Officer: Reed Mckeon MD #### ANICOT #### [facility] [address] [place] [address] Traffic Maintenance Officer: Eduin Alvarez MD Potassium molar conc 4.2 mmol/L Normal 3.7-5.3 [facility] Comment on above: Performed By: #### C BC, PT, PTT, BMP #### [address] [address] Traffic Maintenance Officer: Reed Mckeon MD #### ANICOT #### [facility] [address] [place] [address] Traffic Maintenance Officer: Eduin Alvarez MD Sodium molar conc 140 mmol/L Normal 135-144 [facility] Comment on above: Performed By: #### C BC, PT, PTT, BMP #### [address] [address] Traffic Maintenance Officer: Reed Mckeon MD #### ANICOT #### [facility] [address] [place], [place] [phone] Traffic Maintenance Officer: Eduin Alvarez MD Urea nitrogen mass conc 15 mg/dL Normal 6-20 [facility] Comment on above: Performed By: #### C BC, PT, PTT, BMP #### [address] [phone] Traffic Maintenance Officer: eRed Mckeon MD #### ANICOT #### [facility] [address] [place] [address] [phone] Traffic Maintenance Officer: Eduin Alvarez MD BUN/CRE Ratio NOT REPORTED Normal 9-20 [facility] Comment on above: Performed By: #### C BC, PT, PTT, BMP #### [address] [phone] Traffic Maintenance Officer: Reed Mckeon MD #### ANICOT #### [facility] [address] [place], [place] [phone] Traffic Maintenance Officer: Eduin Alvarez MD Staging: NOT REPORTED Normal [facility] Comment on above: Performed By: #### C BC, PT, PTT, BMP #### [address] [address] Traffic Maintenance Officer: Reed Mckeon MD #### ANICOT #### [facility] [address] [place], [place] [phone] Traffic Maintenance Officer: Eduin Alvarez MD CBCon 04-02-2018 Erythrocyte distribution width Ratio (RBC) 12.0 % Normal 11.8-14.4 [facility] Comment on above: Performed By: #### C BC, PT, PTT, BMP #### [address] [phone] Traffic Maintenance Officer: Reed Mckeon MD #### ANICOT #### [facility] [address] [place] [address] Traffic Maintenance Officer: Eduin Alvarez MD Hematocrit Volume Fraction (Bld) 41.3 % Normal 36.3-47.1 [facility] Comment on above: Performed By: #### C BC, PT, PTT, BMP #### [address] [phone] Traffic Maintenance Officer: Reed Mckeon MD #### ANICOT #### [address] [phone] Traffic Maintenance Officer: Eduin Alvarez MD Hemoglobin mass conc (Bld) 13.7 g/dL Normal 11.9-15.1 [facility] Comment on above: Performed By: #### C BC, PT, PTT, BMP #### [address] [phone] Traffic Maintenance Officer: Reed Mckeon MD #### ANICOT #### [facility] [address] [place] [address] [phone] Traffic Maintenance Officer: Eduin Alvarez MD MCH Entitic mass (RBC) 28.4 pg Normal 25.2-33.5 [facility] Comment on above: Performed By: #### C BC, PT, PTT, BMP #### [address] [phone] Traffic Maintenance Officer: Reed Mckeon MD #### ANICOT #### [facility] [address] [place] [address] Traffic Maintenance Officer: Eduin Alvarez MD MCHC mass conc (RBC) 33.2 g/dL Normal 28.4-34.8 [facility] Comment on above: Performed By: #### C BC, PT, PTT, BMP #### [address] [phone] Traffic Maintenance Officer: Reed Mckeon MD #### ANICOT #### [facility] [address] [place], [place] [phone] Traffic Maintenance Officer: Eduin Alvarez MD MCV Entitic volume (RBC) 85.7 fL Normal 82.6-102.9 [facility] Comment on above: Performed By: #### C BC, PT, PTT, BMP #### [address] [phone] Traffic Maintenance Officer: Reed Mckeon MD #### ANICOT #### [facility] [address] [place], [place] [phone] Traffic Maintenance Officer: Eduin Alvarez MD NRBC Automated 0.0 per 100 WBC Normal 0.0 [facility] Comment on above: Performed By: #### C BC, PT, PTT, BMP #### [address] [phone] Traffic Maintenance Officer: Reed Mckeon MD #### ANICOT #### [facility] [address] [place], [place] [phone] Traffic Maintenance Officer: Eduin Alvarez MD Platelet mean volume Entitic volume (Bld) 9.4 fL Normal 8.1-13.5 [facility] Comment on above: Performed By: #### C BC, PT, PTT, BMP #### [address] [phone] Traffic Maintenance Officer: Reed Mckeon MD #### ANICOT #### [facility] [address] [place] [address] Traffic Maintenance Officer: Eduin Alvarez MD Platelets #/vol (Bld) 392 10*3/uL Normal 138-453 [facility] Comment on above: Performed By: #### C BC, PT, PTT, BMP #### [facility] [address] [place] [address] Traffic Maintenance Officer: Reed Mckeon MD #### ANICOT #### [facility] [address] [place] [address] Traffic Maintenance Officer: Eduin Alvarez MD RBC #/vol (Bld) 4.82 10*6/uL Normal 3.95-5.11 [facility] Comment on above: Performed By: #### C BC, PT, PTT, BMP #### [facility] [address] [place] [address] Traffic Maintenance Officer: Reed Mckeon MD #### ANICOT #### [facility] [address] [place], [place] [phone] Traffic Maintenance Officer: Eduin Alvarez MD WBC #/vol (Bld) 10.4 10*3/uL Normal 3.5-11.3 [facility] Comment on above: Performed By: #### C BC, PT, PTT, BMP #### [facility] [address] [place] [address] Traffic Maintenance Officer: Reed Mckeon MD #### ANICOT #### [facility] [address] [place] [address] Traffic Maintenance Officer: Eduin Alvarez MD PTon 04-02-2018 INR Coag RelTime (PPP) 1.0 {INR} Normal [facility] Comment on above: Result Comment: Therapeutic Range: Moderate Anticoagulant Intensity: INR = 2.0-3.0 High Anticoagulant Intensity: INR = 2.5-3.5 Performed By: #### C BC, PT, PTT, BMP #### [facility] [address] [place] [address] Traffic Maintenance Officer: Reed Mckeon MD #### ANICOT #### [facility] [address] [place] [address] Traffic Maintenance Officer: Eduin Alvarez MD Prothrombin time (PT) Coag time (PPP) 10.3 s Normal 9.0-12.0 [facility] Comment on above: Performed By: #### C BC, PT, PTT, BMP #### [facility] [address] [place] [address] Traffic Maintenance Officer: Reed Mckeon MD #### ANICOT #### [facility] [address] [place] [address] Traffic Maintenance Officer: Eduin Alvarez MD XR CHEST (2 VW)on [...] Mijares Jr., DO 04/02/18 Final result Normal [facility] H. pylori Detectionon 2017 H. 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 Direct Exam NEGATIVE Report Status FINAL 12/05/2017 Normal [facility] Comment on above: Performed By: #### H GENET #### [facility] [address] [place] [id number] Surgical Pathologyon 018 Surgical Pathology (NOTE) [id number] [facility] [employer] CONSULTING PATHOLOGISTS [place] ANATOMIC PATHOLOGY [address] [place] [id number] SURGICAL PATHOLOGY CONSULTATION Patient Name: ANTOINETTE RECIO [facility] Rec: [id number] Path Number: [id number] Collected: 12/04/2017 Received: 12/04/2017 Reported: 12/07/2017 12:25 -- Diagnosis -- STOMACH, BIOPSY: - MILD CHRONIC GASTRITIS. - NEGATIVE FOR HELICOBACTER PYLORI. Pro Beauchamp, Electronically Signed Out sls/12/07/2017 Clinical Information Pre-op Diagnosis: GERD, OBESITY Operative Findings: GASTRIC; STOMACH CLOTEST (H. PYLORI DETECTION) Operation Performed: EGD BIOPSY Source of Specimen 1: GASTRIC Gross Description ANTOINETTE RECIO, GASTRIC One winchester tissue fragment, 0.4 x 0.1 x 0.1 cm. Entirely 1cs. po tm Microscopic Description Microscopic examination performed. Normal [facility] Comment on above: Performed By: #### P PPVS #### [facility] [address] [place], [place] [id number] Vital Signs Date Time Vital Sign Value Performing Clinician Tahira luz 05-05-2023 15:13-0400 Body mass index (BMI) [Ratio] 29.32 kg/m2 Nieves Velasquez MD Work Phone: [facility] 05-05-2023 15:13-0400 Body weight 79.92 kg Nieves Velasquez MD Work Phone: [facility] 05-05-2023 15:13-0400 Diastolic blood pressure 84 mm[Hg] Nieves Velasquez MD Work Phone: [facility] 05-05-2023 15:13-0400 Systolic blood pressure 126 mm[Hg] Nieves Velasquez MD Work Phone: [facility] 11-30-2022 07:30-0400 Body temperature 97.9 [degF] PHYSICIAN NO [facility] 11-30-2022 07:30-0400 Diastolic blood pressure 104 mm[Hg] PHYSICIAN NO [facility] 11-30-2022 07:30-0400 Heart rate 68 /min PHYSICIAN NO [facility] 11-30-2022 07:30-0400 Respiratory rate 18 /min PHYSICIAN NO [facility] 11-30-2022 07:30-0400 SaO2% (BldA) [Mass fraction] 99 % PHYSICIAN NO [facility] 11-30-2022 07:30-0400 Systolic blood pressure 155 mm[Hg] PHYSICIAN NO [facility] 11-28-2022 14:23-0400 Body height 165.1 cm PHYSICIAN NO [facility] 11-27-2022 16:19-0400 Body weight 85.72 kg PHYSICIAN NO [facility] 11-27-2022 14:57-0400 Diastolic blood pressure 90 mm[Hg] PHYSICIAN NO [facility] 11-27-2022 14:57-0400 Heart rate 86 /min PHYSICIAN NO [facility] 11-27-2022 14:57-0400 Respiratory rate 18 /min PHYSICIAN NO [facility] 11-27-2022 14:57-0400 SaO2% (BldA) [Mass fraction] 98 % PHYSICIAN NO [facility] 11-27-2022 14:57-0400 Systolic blood pressure 142 mm[Hg] PHYSICIAN NO [facility] 11-27-2022 09:40-0400 Body height 165.1 cm PHYSICIAN NO [facility] 11-27-2022 09:40-0400 Body temperature 98.5 [degF] PHYSICIAN NO [facility] 11-27-2022 09:40-0400 Body weight 86.5 kg PHYSICIAN NO [facility] 05-13-2022 12:00-0400 Body temperature 98 [degF] PHYSICIAN NO [facility] 05-13-2022 12:00-0400 Diastolic blood pressure 79 mm[Hg] PHYSICIAN NO [facility] 05-13-2022 12:00-0400 Heart rate 102 /min PHYSICIAN NO [facility] 05-13-2022 12:00-0400 Respiratory rate 18 /min PHYSICIAN NO [facility] 05-13-2022 12:00-0400 SaO2% (BldA) [Mass fraction] 94 % PHYSICIAN NO [facility] 05-13-2022 12:00-0400 Systolic blood pressure 113 mm[Hg] PHYSICIAN NO [facility] 05-12-2022 09:00-0400 Body weight 79.83 kg PHYSICIAN NO [facility] 05-09-2022 14:19-0400 Body height 165.1 cm PHYSICIAN NO [facility] 05-09-2022 04:22-0400 Diastolic blood pressure 79 mm[Hg] PHYSICIAN NO [facility] 05-09-2022 04:22-0400 Systolic blood pressure 118 mm[Hg] PHYSICIAN NO [facility] 05-09-2022 01:14-0400 Heart rate 103 /min PHYSICIAN NO [facility] 05-09-2022 01:14-0400 Respiratory rate 18 /min PHYSICIAN NO [facility] 05-09-2022 01:14-0400 SaO2% (BldA) [Mass fraction] 97 % PHYSICIAN NO [facility] 05-08-2022 23:48-0400 Body height 165.1 cm PHYSICIAN NO [facility] 05-08-2022 23:48-0400 Body temperature 97.5 [degF] PHYSICIAN NO [facility] 05-08-2022 23:48-0400 Body weight 77.11 kg PHYSICIAN NO [facility] Encounters Encounter Date Encounter Type Care Provider Facility Start: 11-04-2023 End: 11-04-2023 ambulatory MANPREET PLUNKETT Not Available Start: 09-15-2023 End: 09-15-2023 ambulatory [facility] Start: 08-12-2023 End: 08-12-2023 ambulatory [facility] Start: 06-16-2023 End: 06-16-2023 Emergency department patient visit NO PCP NO PCP [facility] Start: 06-03-2023 End: 06-03-2023 ambulatory NO PCP NO PCP [facility] Start: 05-05-2023 End: 05-05-2023 ambulatory [facility] Start: 05-05-2023 Encounter for gynecological examination (general) (routine) without abnormal findings [facility] Start: 05-05-2023 End: 05-05-2023 Office outpatient visit 25 minutes Nieves Velasquez MD Work Phone: [facility] Comment on above: GA: 8w4d Start: 05-05-2023 End: 05-05-2023 Patient encounter status Nieves Velasquez MD Work Phone: [facility] Start: 05-05-2023 End: 05-05-2023 [facility] Start: 05-05-2023 Encounter for gynecological examination (general) (routine) without abnormal findings [facility] Start: 04-16-2023 End: 04-16-2023 ambulatory [facility] Start: 04-14-2023 End: 04-14-2023 Initial care visit Lynn Deleon [employer] Work Phone: [facility] Comment on above: First trimester preg bal (Primary Dx); HTN in , chronic; History of gestational diabetes in prior , currently ; Nausea/vomiting in Start: 04-14-2023 End: 04-14-2023 ambulatory [facility] Start: 03-30-2023 End: 03-31-2023 [facility] Start: 11-27-2022 End: 11-30-2022 Evaluation and management of inpatient PHYSICIAN NO FAMILY Facility:[facility] Start: 11-27-2022 End: 11-30-2022 Evaluation and management of inpatient PHYSICIAN NO FAMILY [facility] Work Phone: Start: 11-27-2022 ambulatory PHYSICIAN NO FAMILY Fac ility:[facility] Start: 05-09-2022 End: 05-13-2022 Evaluation and management of inpatient PHYSICIAN NO FAMILY Facility:[facility] Start: 05-09-2022 End: 05-13-2022 Evaluation and management of inpatient PHYSICIAN NO FAMILY [facility] Work Phone: Start: 12-19-2021 End: 12-20-2021 ambulatory [facility] Start: 03-17-2021 End: 03-18-2021 ambulatory NONE LISTED REQUEST Facility: Start: 06-11-2020 End: 06-14-2020 ambulatory REFERRED SELF Facility:[facility] Start: 06-10-2020 End: 06-10-[address] PRO BOSTON Facility: Start: 04-15-2018 End: 04-16-2018 Patient encounter procedure VIPUL TRIPATHI [facility] Start: 04-12-2018 End: 04-14-2018 Evaluation and management of inpatient HEAD WATERS Katharine [facility] Start: 04-02-2018 Encounter for preprocedural respiratory examination [facility] Start: 04-02-2018 Encounter for other preprocedural examination [facility] Start: 04-02-2018 End: 04-07-2018 Patient encounter procedure [facility] Start: 12-04-2017 End: 12-04-2017 Patient encounter procedure [facility] Encounter for other preprocedural examination [facility] Procedures Date Procedure Procedure Detail Performing [...] INCENTIVE SPIROMETRY RT CHER MARAVILLA Start: 04-16-2018 INITIATE OXYGEN THER APY PROTOCOL CHER MARAVILLA Start: 04-16-2018 INCENTIVE SPIROMETRY RT CHER MARAVILLA Start: 04-16-2018 INCENTIVE SPIROMETRY RT CHER MARAVILLA Start: 04-16-2018 Blood count complete automated CHER MARAVILLA Start: 04-16-2018 Comprehensive metabo lic panel CHER MARAVILLA Start: 04-16-2018 INCENTIVE SPIROMETRY RT CHER MARAVILLA Start: 04-16-2018 INCENTIVE SPIROMETRY RT CHER MARAVILLA Start: 04-16-2018 DAILY WEIGHTS CHER Saira STEVENS Start: 04-16-2018 INTAKE AND OUTPUT KRISTA VESTA TAIWO Start: 04-16-2018 INCENTIVE SPIROMETRY RT CHER [...] step me thod nos each organism CHER MARAVILLA Start: 04-15-2018 Smr prim src gram/gi emsa stain bct fungi/cell CHER MARAVILLA Start: 04-15-2018 Virus centrifuge enh ncd id imfluor stain ea CHER MARAVILLA Start: 04-15-2018 INCENTIVE SPIROMETRY RT CHER MARAVILLA Start: 04-15-2018 IP CONSULT TO IV TEAM G ROXY MARAVILLA Start: 04-15-2018 Radiologic exam ches t single view CHER MARAVILLA Start: 04-15-2018 DIET BARIATRIC CLEAR LIQUID CHER MARAVILLA Start: 04-15-2018 PATIENT STATUS (DIRECT) CHER MARAVILLA Start: 04-15-2018 Iadna respiratry pro be & rev trnscr 12-25 target CHER MARAVILLA Start: 04-15-2018 INCENTIVE SPIROMETRY RT CHER MARAVILLA Start: 04-15-2018 Assay of troponin quantitative CHERKAVITHA MARAVILLA Start: 04-15-2018 Culture bacterial bl ood aerobic w/id isolates CHER TAIWO Start: 04-15-2018 Gonadotropin chorion ic qualitative CHERKAVITHA MARAVILLA Start: 04-15-2018 Ecg routine ecg w/le ast 12 lds w/i&r CHER MARAVILLA Start: 04-15-2018 EKG REPORT CHER LAY CASS Start: 04-15-2018 IP CONSULT TO BARIATRICS CHER MARAVILLA Start: 04-15-2018 OT EVAL AND TREAT KRISTAJuliana MARAVILLA Start: 04-15-2018 PLACE INTERMITTENT PNEUMATIC COMPRESSION DEVICE CHER MARAVILLA Start: 04-15-2018 PT EVAL AND TREAT KRISTA VESTA MARAVILLA Start: 04-15-2018 RESPIRATORY CARE SHIRLENE LUATION ONLY CHER MARAVILLA Start: 04-15-2018 TELEMETRY MONITORING GR ISAIAS TAIWO Start: 04-15-2018 VITAL SIGNS CHER DONNA ODELL Start: 04-15-2018 ENCOURAGE DEEP BREAT VICKY AND COUGHING CHER MARAVILLA Start: 04-15-2018 FULL CODE CHER DONNA ODELL Start: 04-15-2018 INITIATE OXYGEN THER APY PROTOCOL CHER MARAVILLA Start: 04-15-2018 INTAKE AND OUTPUT KRISTA MARAVILLA Start: 04-15-2018 IP CONSULT TO PULMONOLOGY CHER MARAVILLA Start: 04-15-2018 NOTIFY PHYSICIAN (SPECIFY) CHER MARAVILLA Start: 04-15-2018 PATIENT STATUS (DIRECT) CHER MARAVILLA Start: 04-14-2018 NEBULIZER TX INTERMITTENT CHER MARAVILLA Start: 04-14-2018 PULSE OXIMETRY, CONTINUOUS CHER MARAVILLA Start: 04-14-2018 Radex esophagus CHER MARAVILLA Start: 04-14-2018 INITIATE OXYGEN THER APY PROTOCOL CHER MARAVILLA Start: 04-14-2018 NASAL CANNULA OXYGEN GR ISAIAS MARAVILLA Start: 04-14-2018 NEBULIZER TX INTERMITTENT CHER MARAVILLA Start: 04-14-2018 PULSE OXIMETRY, CONTINUOUS CHER MARAVILLA Start: 04-14-2018 DISCHARGE PATIENT KRISTA LEMONS TAIWO Start: 04-14-2018 PULSE OXIMETRY, CONTINUOUS CHER MARAVILLA Start: 04-14-2018 INTAKE AND OUTPUT KRISTA MARAVILLA Start: 04-14-2018 PULSE OXIMETRY, CONTINUOUS CHER MARAVILLA Start: 04-13-2018 NEBULIZER TX INTERMITTENT CHER MARAVILLA Start: 04-13-2018 PULSE OXIMETRY, CONTINUOUS CHER MARAVILLA Start: 04-13-2018 PULSE OXIMETRY, CONTINUOUS CHER MARAVILLA Start: 04-13-2018 NEBULIZER TX INTERMITTENT CHER MARAVILLA Start: 04-13-2018 PULSE OXIMETRY, CONTINUOUS CHER MARAVILLA Start: 04-13-2018 Radex esophagus CHER MARAVILLA Start: 04-13-2018 NASAL CANNULA OXYGEN GR ISAIAS MARAVILLA Start: 04-13-2018 INITIATE OXYGEN THER APY PROTOCOL CHERKAVITHA MARAVILLA Start: 04-13-2018 NEBULIZER TX INTERMITTENT CHER GARZATON Start: 04-13-2018 PULSE OXIMETRY, CONTINUOUS CHER GARZATON Start: 04-13-2018 Basic metabolic pane l calcium total CHERKAVITHA GARZATON Start: 04-13-2018 Blood count complete automated CHER MARAVILLA Start: 04-13-2018 PULSE OXIMETRY, CONTINUOUS CHER GARZATON Start: 04-13-2018 INTAKE AND OUTPUT KRISTA LEMONS MARAVILLA Start: 04-13-2018 PULSE OXIMETRY, CONTINUOUS CHER GARZATON Start: 04-12-2018 NEBULIZER TX INTERMITTENT CHER MARAVILLA Start: 04-12-2018 PULSE OXIMETRY, CONTINUOUS CHER MARAVILLA Start: 04-12-2018 DIET BARIATRIC CLEAR LIQUID CHER MARAVILLA Start: 04-12-2018 IP CONSULT TO IV TEAM G ROXY MARAVILLA Start: 04-12-2018 PULSE OXIMETRY, CONTINUOUS CHER MARAVILLA Start: 04-12-2018 TELEMETRY MONITORING GR ISAIAS MARAVILLA Start: 04-12-2018 ENCOURAGE DEEP BREAT VICKY AND COUGHING CHER MARAVILLA Start: 04-12-2018 PLACE INTERMITTENT PNEUMATIC COMPRESSION DEVICE CHERKAVITHA MARAVILLA Start: 04-12-2018 PULSE OXIMETRY, CONTINUOUS CHER GARZATON Start: 04-12-2018 ELEVATE HOB CHERKAVITHA ODELL Start: 04-12-2018 INITIATE OXYGEN THER APY PROTOCOL CHER MARAVILLA Start: 04-12-2018 MISCELLANEOUS NURSIN G CARE ORDER (SPECIFY) CHER MARAVILLA Start: 04-12-2018 FULL CODE CHER ODELL [...] PATIENT STATUS (FROM ED OR OR/PROCEDURAL) CHER TAIWO Start: 04-12-2018 INCENTIVE SPIROMETRY NURSING CHER MARAVILLA Start: 04-12-2018 PATIENT STATUS (FROM ED OR OR/PROCEDURAL) CHER MARAVILLA Start: 04-12-2018 Urine test visual color cmprsn meths CHER MARAVILLA Start: 04-02-2018 Assay of nicotine KRISTAJuliana MARAVILLA Start: 04-02-2018 Basic metabolic pane l calcium total CHER MARAVILLA Start: 04-02-2018 Blood count complete automated CHERKAVITHA MARAVILLA Start: 04-02-2018 Prothrombin time TRACEE Shine MARAVILLA Start: 04-02-2018 Thromboplastin time partial plasma/whole blood CHER MARAVILLA Start: 04-02-2018 Radiologic exam ches t 2 views CHER MARAVILLA Start: 04-02-2018 NURSING COMMUNICATION G TANYAKAVITHA GARZATON Start: 04-02-2018 Ecg routine ecg w/le ast 12 lds w/i&r CHER TAIWO Start: 04-02-2018 EKG REPORT CHER DONNA ODELL Start: 12-04-2017 SURGICAL PATHOLOGY RAJAN MARAVILLA Start: 12-04-2017 DISCHARGE PATIENT KRISTA MARAVILLA Plan of Treatment Date Care Activity Detail Author Start: 12-21-2030 DTaP,Tdap and Td Vaccines (3 - Td or Tdap) DTaP,Tdap and Td Vaccines (3 - Td or Tdap) [facility] Start: 05-04-2024 Adult BMI Screening Adult BMI Screen ing [facility] Start: 05-04-2024 Depression Screening Depression Scre ening [facility] Start: 05-04-2024 Tobacco Screening Tobacco Screening [facility] Start: 04-13-2024 Tobacco Screening Tobacco Screening [facility] Start: 03-30-2024 Adult BMI Screening Adult BMI Screen ing [facility] Start: 06-03-2023 End: 06-03-2023 Patient encounter procedure 06/03/2023 3:15 PM EDT Routine [facility] [address] [place] [id number] [facility] Start: 05-05-2023 End: 05-05-2023 ambulatory 05/05/2023 3:00 PM EDT Initial [facility] [address] [place] [id number] Nieves Velasquez MD [address] [place] [address] [facility] Start: 04-16-2023 Subsequent hospital visit by physician 04/16/2023 1:30 PM EST Hospital Encounter [facility] - Ultrasound [address] [place] [id number] Lynn Deleon, [employer] [address] [place], [place] [id number] [facility] Start: 04-14-2023 End: 04-13-2024 US transvaginal for Ultrasound less than 14 weeks with transvaginal Imaging Routine First trimester Expected: 04/14/2023, Expires: 04/13/2024 [facility] Work Phone: Comment on above: Expected: 04/14/2023 , Expires: 04/13/2024 Start: 11-30-2022 [facility] Start: 11-28-2022 Lipid panel [facility] Start: 11-28-2022 [facility] Start: 11-27-2022 Referral to Group Insurance Special Agent [facility] Start: 11-27-2022 Hospital admission [facility] Start: 11-27-2022 [facility] Start: 11-27-2022 Bacteria identified in Urine by Culture [facility] Start: 10-10-2022 Influenza vaccination Influenza Vacc ine [facility] Start: 05-13-2022 [facility] Start: 05-09-2022 Hospital admission [facility] Start: 04-20-2016 Screening for malign ant neoplasm of cervix Pap Smear [facility] Start: 04-20-2013 Adult BMI Follow Up Plan Adult BMI Follow Up Plan [facility] Start: 2007 Depression Screening Depression Scre ening [facility] End: 04-13-2024 Bacteria identified in Urine by Culture Urine Culture Microbiology Routine First trimester 1 Occurrences starting 04/14/2023 until 04/13/2024 [facility] Comment on above: 1 Occurrences starti ng 04/14/2023 until 04/13/2024 End: 04-13-2024 CBC panel - Blood by Automated count CBC without diff Lab Routine First trimester 1 Occurrences starting 04/14/2023 until 04/13/2024 [facility] Comment on above: 1 Occurrences starti ng 04/14/2023 until 04/13/2024 End: 05-04-2024 Chlamydia/GC by PCR ThinPrep fluid Chlamydia/GC by PCR ThinPrep fluid Microbiology Routine Screening for STD (sexually transmitted disease) 1 Occurrences starting 05/05/2023 until 05/04/2024 [facility] Comment on above: 1 Occurrences starti ng 05/05/2023 until 05/04/2024 End: 04-13-2024 Comprehensive metabolic 2000 panel - Serum or Plasma Comprehensive metabolic panel Lab Routine First trimester HTN in , chronic 1 Occurrences starting 04/14/2023 until 04/13/2024 [facility] Comment on above: 1 Occurrences starti ng 04/14/2023 until 04/13/2024 End: 04-13-2024 Creatinine clearance Creatinine clearance Lab Routine First trimester HTN in , chronic 1 Occurrences starting 04/14/2023 until 04/13/2024 [facility] Comment on above: 1 Occurrences starti ng 04/14/2023 until 04/13/2024 End: 05-04-2024 Cytopathology procedure, preparation of smear, genital source Pap Smear Pathology and Cytology Routine Smear, vaginal, as part of routine gynecological examination 1 Occurrences starting 05/05/2023 until 05/04/2024 [facility] Work Phone: Comment on above: 1 Occurrences starti ng 05/05/2023 until 05/04/2024 End: 04-13-2024 Drug Screen, Urine Drug Screen, Urine Lab Routine First trimester 1 Occurrences starting 04/14/2023 until 04/13/2024 [facility] Comment on above: 1 Occurrences starti ng 04/14/2023 until 04/13/2024 End: 04-13-2024 Glucose 1h post 50g load Glucose 1h post 50g load Lab Routine First trimester History of gestational diabetes in prior , currently 1 Occurrences starting 04/14/2023 until 04/13/2024 [facility] Comment on above: 1 Occurrences starti ng 04/14/2023 until 04/13/2024 End: 04-13-2024 Hepatitis panel, acute Hepatitis panel, acute Lab Routine First trimester 1 Occurrences starting 04/14/2023 until 04/13/2024 [facility] Comment on above: 1 Occurrences starti ng 04/14/2023 until 04/13/2024 End: 04-13-2024 HIV 1&2 AB/AG Screen (P24 AG) HIV 1&2 AB/AG Screen (P24 AG) Lab Routine First trimester 1 Occurrences starting 04/14/2023 until 04/13/2024 [facility] Comment on above: 1 Occurrences starti ng 04/14/2023 until 04/13/2024 End: 04-13-2024 LDH LDH Lab Routine First trimester HTN in , chronic 1 Occurrences starting 04/14/2023 until 04/13/2024 [facility] Comment on above: 1 Occurrences starti ng 04/14/2023 until 04/13/2024 Patient Education Depression, Ad ult (DC) [facility] [facility] [place] Instructions [facility] Work Phone: Patient referral [facility] Work Phone: End: 04-13-2024 Rubella IGG immune status Rubella IGG immune status Lab Routine First trimester 1 Occurrences starting 04/14/2023 until 04/13/2024 [facility] Comment on above: 1 Occurrences starti ng 04/14/2023 until 04/13/2024 End: 04-13-2024 Syphilis Total(Unknown Syphilis Status) Syphilis Total(Unknown Syphilis Status) Lab Routine First trimester 1 Occurrences starting 04/14/2023 until 04/13/2024 [facility] Comment on above: 1 Occurrences starti ng 04/14/2023 until 04/13/2024 End: 04-13-2024 Type and screen Type and screen Blood Bank Routine First trimester 1 Occurrences starting 04/14/2023 until 04/13/2024 [facility] [employer] [facility] Comment on above: 1 Occurrences starti ng 04/14/2023 until 04/13/2024 End: 04-13-2024 Urate [Mass/volume] in Serum or Plasma Uric acid Lab Routine First trimester HTN in , chronic 1 Occurrences starting 04/14/2023 until 04/13/2024 [facility] Comment on above: 1 Occurrences starti ng 04/14/2023 until 04/13/2024 End: 04-13-2024 Urinalysis Urinalysis Lab Routine First trimester 1 Occurrences starting 04/14/2023 until 04/13/2024 [facility] Comment on above: 1 Occurrences starti ng 04/14/2023 until 04/13/2024 End: 04-13-2024 Urine protein creatinine ratio Urine protein creatinine ratio Lab Routine First trimester HTN in , chronic 1 Occurrences starting 04/14/2023 until 04/13/2024 [facility] Comment on above: 1 Occurrences starti ng 04/14/2023 until 04/13/2024 End: 04-13-2024 Varicella zoster antibody, IgG Varicella zoster antibody, IgG Lab Routine First trimester 1 Occurrences starting 04/14/2023 until 04/13/2024 [facility] [employer] [facility] Comment on above: 1 Occurrences starti ng 04/14/2023 until 04/13/2024 Immunizations Immunization Date Immunization Notes Care Provider Gretel grissom 12-21-2020 tetanus toxoid, redu lucy diphtheria toxoid, and acellular pertussis vaccine, adsorbed PHYSICIAN NO [facility] 09-02-2019 tetanus toxoid, redu lucy diphtheria toxoid, and acellular pertussis vaccine, adsorbed PHYSICIAN NO [facility] Payers Date Payer Category Payer Self-pay [id number] 2022 Medicaid [employer] [place] [id number] 2022-[facility] [phone] [place], [place] [id number] [id number] 2021 Medicaid [id number] 2018 Unknown [id number] 2017 Private Health Insurance [id number] 1995 Unknown [id number] 2.16.840.1.251038.3.579.2. 175 1995 Unknown [id number] 2.16.840.1.811641.3.579.2. 175 1995 Unknown [id number] 2.16.840.1.892736.3.579.2. 175 1995 Unknown [id number] 2.16.840.1.012645.3.579.2. 175 1995 Unknown [id number] 2.16.840.1.195349.3.579.2. 175 1995 Unknown [id number] 2.16.840.1.538234.3.579.2. 593 1995 Unknown [id number] 2.16.840.1.802592.3.579.2. 593 1995 Unknown [id number] 2.16.840.1.005977.3.579.2. 647 1995 Unknown [id number] 2.16.840.1.782900.3.579.2. 1286 1995 Unknown [id number] 2.16.840.1.519337.3.579.2. 1286 1995 Unknown [id number] 2.16.840.1.116986.3.579.2. 1286 1995 Unknown [id number] 2.16.840.1.215451.3.579.2. 1286 1995 Unknown [id number] 2.16.840.1.637106.3.579.2. 1286 1995 Unknown [id number] 2.16.840.1.870386.3.579.2. 1286 1995 Unknown [id number] 2.16.840.1.222418.3.579.2. 1286 1995 Unknown [id number] 2.16.840.1.797347.3.579.2. 1286 1995 Unknown [id number] 2.16.840.1.513686.3.579.2. 1286 1995 Unknown [id number] 2.16.840.1.901995.3.579.2. 1286 1995 Unknown [id number] 2.16.840.1.658210.3.579.2. 1286 1995 Unknown [id number] 2.16.840.1.090130.3.579.2. 1286 1995 Unknown [id number] 2.16.840.1.777378.3.579.2. 1259 1959 Self-pay [id number] 1959 Unknown [id number] Medicaid [place] [employer] [id number] Unknown [id number] 2.16.840.1.724635.3.579.2. 531 Unknown [id number] 2.16.840.1.178466.3.579.2. 531 Unknown [id number] Social History Date Type Detail Facility Start: 05-09-2022 End: 11-27-2022 Tobacco smoking status [facility] Never smoked tobacco (finding) [facility] Start: 1995 Sex Assigned At Female [facility] Start: 11-28-2022 End: 03-24-2023 Tobacco smoking status WIIS Smoker (finding) [facility] Start: 04-14-2023 Tobacco smoking stat us [facility] Ex-smoker [facility] End: 03-24-2023 History of tobacco use Cigarette Smoker [facility] Start: 03-22-2020 End: 04-14-2023 Cigarettes smoked current (pack per day) - Reported 0.3 [facility] Start: 04-14-2023 Tobacco use and exposure Smokeless tobacco non-user [facility] Start: 04-14-2023 End: 05-05-2023 Alcohol intake Current non-drinker of alcohol (finding) [facility] Start: 03-22-2020 End: 04-14-2023 Tobacco use panel [facility] Childcare Unknown [facility] Start: 04-14-2023 Alcohol Comment SOBER 3 MONTHS [facility] Start: 1995 Sex Assigned At Not on file P [facility] How hard is it for y ou to pay for the very basics like food, housing, medical care, and heating Somewhat hard [facility] Start: 03-20-2023 [facility] Goals Date Patient Goal Desired Activity /State Functional Status Date Assessment Result Facility 11-30-2022 Functional status Patient at Baseline [facility] Work Phone: 05-13-2022 Functional status Patient at Baseline [facility] Work Phone: Mental Status Date Assessment Result Facility 11-30-2022 Cognitive function Cognitive Sta tus Patient at Baseline [facility] Work Phone: 05-13-2022 Cognitive function Cognitive Sta tus Patient at Baseline [facility] Work Phone: Clinical Notes 06-14-2020 to 05-05-2023 Nieves Velasquez MD - 05/05/2023 3:00 PM MARISOL England - 04/14/2023 1:45 PM ESTNicezra Justice LPN - 04/14/2023 1:45 PM ESTAddendum Note - MARISOL Mabry - 04/14/2023 1:45 PM EST Note Date & Type Note Facility 05-05-2023 History of Presen t illness Narrative Gynecoid pelvis PH baseline labs within normal limits All questions answered No recent concerns documented in this encounter [facility] 04-14-2023 History of Presen t illness Narrative OB Intake Video Visit 27 y.o. at unknown gestation contacted through [facility] for OB intake video visit. verified and verbal consent obtained for video visit. Patient and provider both currently located in the [facility]. This was a planned . FOB [...] hx alcohol abuse. 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 Discussed testing. Pt declines all. The patient reports that there is not domestic violence in her life. Discussed exercise, diet and weight gain. Current BMI 28. Discussed smoking, alcohol use and drug use. Quit vaping / smoking 3 weeks ago, sober from alcohol 3 months. Discussed early danger signs and when/how to notify provider. Reviewed CNM / DIRECTOR OF TEENAGE ACTIVITIES care, collaboration & referral to SENIOR QUANTITY SURVEYOR as needed. Reviewed course of care. Discussed CDC recommendation for exclusive for the first 6 months. Patient has not been covid vaccinated. Discussed recommendations in . Patient is taking an OTC vitamin. Will offer flu shot in the office. All questions answered. Educational materials provided through [facility]. Ultrasound and labs ordered. Appointment scheduled for initial OB visit with provider on 05/05/23. MARISOL Mabry 04/14/23 7650 [id number]. Chronic HTN with no meds or PCP-baseline labs ordered. HX GDMA1-EARLY 1 HR GTT. Last pap was 3 years negative. Pt declined genetic testing. Stopped tobacco use and vaping 3 weeks ago.marino from alcohol for 3 months. documented in this encounter [facility] 04-14-2023 Miscellaneous Notes Addended by: LYNN DELEON on: 04/14/2023 03:15 PM Modules accepted: Orders documented in this encounter [facility] 04-14-2023 Note Addended by: LYNN DELEON on: 04/14/2023 03:15 PM Modules accepted: Orders [facility] 11-30-2022 Discharge summary Note Date/Time November 30, 2022 10:14am [facility] [address] [place] [address] Discharge Summary Signed Patient: Antoinette Recio MR#: [id number] : 1995 Acct:[id number] Age/Sex: 27 / F Adm Date: 3 Loc: Room: [address] [place] [address]: Dar Nation MD Copies to: [...] Instructions: Important Contact Information You can call [facility] at [phone] any time day or night if you have emergent questions or question regarding discharge instructions. If at any time you are feeling an increase inyour psychiatric symptoms, call your physician or behavioral healthcare provider. If any time you have thoughts of harming yourself or others contact one of the following: Call (available 01/09) Crisis Text Line (available 01/09) text 4HOPE to 120601 Replaced By [facility] (available 8 a.m. Midnight) call [phone] ([phone]) Prescriptions: New venlafaxine 75 mg Capsule,Extended Release 24hr 75 mg PO DAILY 30 Days Qty: 30 0RF nicotine (polacrilex) 2 mg Gum 2 mg buccal Q2HR PRN (Reason: Nicotine Cravings) Qty: 30 0RF cephalexin 500 mg Capsule 500 mg PO Q8HR 7 Days Qty: 21 0RF buspirone 10 mg Tablet 10 mg PO TID 30 Days Qty: 90 0RF Follow Up: [facility] [Outside] () [facility] [Physician] - (Please contact for any medical needs or concnerns) Documented By: Dar Nation MD 11/30/22 1013 Signed By: <Electronically signed by Dar Nation MD> 11/30/22 1016 [facility] Work Phone: 1(106) 469-139810-22-2023 Hospital Discharge instructions Additional Instructions Important Contact Information You can call [facility] at [phone] any time day or night if you have emergent questions or question regarding discharge instructions. If at any time you are feeling an increase in your psychiatric symptoms, call your physician or behavioral healthcare provider. If any time you have thoughts of harming yourself or others contact one of the following: Call (available 01/09) Crisis Text Line (available 01/09) text 4HOPE to [phone] Replaced By [facility] (available 8 a.m. Midnight) call [phone] ([phone]) [facility] Work Phone: 1(800) 655-499510-21-2023 Progress note [facility] November 29, 2022 11:21am Note Date/Time November 29, 2022 1 1:22am [facility] [address] [place] [address] Psychiatry Progress Note Signed Patient: Antoinette Recio MR#: [id number] : 1995 Acct:[id number] Age/Sex: 27 / F Adm Date: 3 Loc: Room: [address] [place] [address] Type : ADM IN Attending Dr: Dar [...] alternatives explained Documented By: Dar Nation MD 11/29/22 112 Signed By: <Electronically signed by Dar Nation MD> 11/29/22 1121 [facility] Work Phone: 1(969) 318-835410-20-2023 History and physical note Author Dar Nation [facility] November 28, 2022 11:45am Note Date/Time November 28, 2022 1 1:45am [facility] [address] [place] [address] Psychiatry H&P Signed Patient: Antoinette Recio MR#: [id number] : 1995 Acct:[id number] Age/Sex: 27 / F Adm Date: 3 Loc: Room: [address] [place] [address] Type: ADM IN Attending Dr: Dar Nation MD [...] homicidality, reported suicidality Insight: fair Judgment: fair [facility] Medical History Clavicle fracture Miscarriage Surgical History [...] Turbid A Urine pH 5.0 Ur Specific Solon 1.023 Urine Protein Trace H Urine Glucose [...] <Electronically signed by Dar Nation MD> 11/28/22 1143 [facility] Work Phone: 1(128) 214-764204-04-2023 Discharge summary Author Dar Nation [facility] May 13, 2022 12:29pm Note Date/Time May 13, 2022 12:[address] [facility] [address] [place] [address] Discharge Summary Signed Patient: Antoinette Recio MR#: [id number] : 1995 Acct:[id number] Age/Sex: 27 / F Adm Date: 3 Loc: Room: [address] [place] [address]: Tiana Smith MD Copies to: [...] past year Living: House with parents in [place] Employment: None Patient was treated with Effexor. [...] No activity restrictions. Instructions: Depression, Adult ([place]), [facility] [place] Instructions Prescriptions: New venlafaxine [...] 30 Days Qty: 30 0RF Follow Up: [facility] [Outside] (Please call to establish care with a primary provider for any medical needs. ) [facility] [Outside] [facility] [Outside] - 05/14/22 11:30 am (pmo project manager: Thursday05/14/22 @ 11:30am Intake: Thursday05/20/22 @ 12:30pm Please bring a copy of your photo ID, insurance card, and proof of household income. Nurse: 05/22/22 @ 2:00pm with Anabel. Please see attached instruction sheet Psychiatry: Thursday05/27/22 @ 9:30am with Dr. Goetz) Documented By: Dar Nation MD 05/13/221227 Signed By: <Electronically signed by Dar Nation MD> 05/13/22 1229 [facility] Work Phone: 1(903) 970-333504-03-2023 Progress note Author Dar Nation [facility] May 12, 2022 3:21pm Note Date/Time May 12, 2022 3:[address] [facility] [address] [place] [address] Psychiatry Progress Note Signed Patient: Antoinette Recio MR#: [id number] : 1995 Acct:[id number] Age/Sex: 27 / F Adm Date: 3 Loc: Room: [address] [place] [address] Type : ADM IN Attending Dr: Tiana Smith MD Copies to: ~ Date of Service: 05/12/2022 Subjective Subjective Narrative: Patient continues to move in the right direction with her's current [facility] protocol and antidepressant medication regimen. She denies [...] <Electronically signed by Dar Nation MD> 05/12/22 1528 [facility] Work Phone: 1(681) 460-882804-02-2023 Progress note Author Ji anderson [facility] May 11, 2022 8:50am Note Date/Time May 11, 2022 8:[address] [facility] [address] [place] [address] Psychiatry Progress Note Signed Patient: Antoinette Recio MR#: [id number] : 1995 Acct:[id number] Age/Sex: 27 / F Adm Date: 3 Loc: Room: [address] [place] [address] Type : ADM IN Attending Dr: Tiana Smith MD Copies to: ~ Date of Service: 05/11/2022 Subjective Subjective Narrative: Overnight: Patient was trying the unit doors trying to get out.? She was also starting to get mean.? She stated to this fiction and nonfiction prose writer, get out of my face, leave [...] and laid down on the bed.? This fiction and nonfiction prose writer gave report to the Special Care Unit nurse and then this fiction and nonfiction prose writer collected the patient's belongings and took [...] explained Documented By: Ji Smith MD 3 [id number] Signed By: <Electronically signed by Ji Smith MD> 05/11/22 0850 [facility] Work Phone: 1(723) 312-157604-01-2023 Progress note Author Ji anderson [facility] May 10, 2022 5:02pm Note Date/Time May 10, 2022 10:[address] [facility] [address] [place] [address] Psychiatry Progress Note Signed with Addenda Patient: Antoinette Recio MR#: [id number] : 1995 Acct:[id number] Age/Sex: 27 / F Adm Date: 3 Loc: Room: [address] [place] [address] Type : ADM IN Attending Dr: Tiana [...] signed by Ji Smith MD> 05/10/22 1025 [facility] Work Phone: 1(583) 471-892003-31-2023 History and physical note Author Ji anderson [facility] May 09, 2022 12:28pm Note Date/Time May 09, 2022 12: 28pm [facility] [address] [place] [address] Psychiatry H&P Signed Patient: Antoinette Recio MR#: [id number] : 1995 Acct:[id number] Age/Sex: 27 / F Adm Date: 3 Loc: Room: [address] [place] [address] Type: ADM IN Attending Dr: Tiana Smith [...] past year Living: House with parents in [place] Employment: None Review of symptoms: Constitutional: Denies [...] Appearance Clear Urine pH 5.5 Ur Specific Solon 1.013 Urine Protein 30 H Urine Glucose [...] <Electronically signed by Ji Smith MD> 05/09/22 [facility] Work Phone: 1(862) 293-810305-07-2021 Note [id number]:[address] [place] [address] 06-14-2020 [id number]:[address] [place], [place] [address]Evaluation note* Diagnosis Onset Date Resolution Status Suicidal ideation acute [facility] Work Phone: Evaluation note* Diagnosis Onset Date Resolution Status Alcohol use disorder acute Major depressive disorder, recurrent, moderate acute Suicidal ideation acute [facility] Work Phone: Evaluation note* Diagnosis Onset Date Resolution Status Suicidal ideation acute Urinary tract infection acut e [facility] Work Phone: Evaluation note* Diagnosis Onset Date Resolution Status Alcohol use disorder acute Major depressive disorder, recurrent, moderate acute Suicidal ideation acute Urinary tract infection acut e [facility] Work Phone: Evaluation note* Diagnosis First trimester [...] (sexually transmitted disease) documented [facility] this encounter [facility] physical [facility] Author Ji anderson [facility] May 09, 2022 12:28pm Note Date/Time May 09, 2022 12: 28pm [facility] [address] [place] [address] Psychiatry H&P Signed Patient: Antoinette Recio MR#: [id number] : 1995 Acct:[id number] Age/Sex: 27 / F Adm Date: 3 Loc: Room: [address] [place] [address] Type: ADM IN Attending Dr: Tiana Smith [...] past year Living: House with parents in [place] Employment: None Review of symptoms: Constitutional: Denies [...] Appearance Clear Urine pH 5.5 Ur Specific Solon 1.013 Urine Protein 30 H Urine Glucose [...] signed by Ji Smith MD> 05/09/22 1228 [facility] Work Phone: Hospital Discharge instructions Additional Instructions Regular diet. No activity restrictions.[facility] Work Phone: Instructions* Attachments The following attachments cannot be sent through Care Everywhere. * Activity during (Pakistani) * How to Adapt to Physical Changes During (Pakistani) * Nutrition before and during (Pakistani) * care (Pakistani) [facility] SystemInstructionsNot on file documented in this encounterProGal[facility] SystemProgress note Author Ji anderson [facility] May 10, 2022 5:02pm Note Date/Time May 10, 2022 10:[address] [facility] [address] [place] [address] Psychiatry Progress Note Signed with Esmer Patient: Antoinette Recio MR#: [id number] : 1995 Acct:[id number] Age/Sex: 27 / F Adm Date: 3 Loc: Room: [address] [place] [address] Type : ADM IN Attending Dr: Tiana [...] signed by Ji Smith MD> 05/10/22 1025 [facility] Work Phone: Progress note Author Ji anderson [facility] May 11, 2022 8:50am Note Date/Time May 11, 2022 8:[address] [facility] [address] [place] [address] Psychiatry Progress Note Signed Patient: Antoinette Recio MR#: [id number] : 1995 Acct:[id number] Age/Sex: 27 / F Adm Date: 3 Loc: 1S Room: [address] [place] [address] Type : ADM IN Attending Dr: Tiana Smith MD Copies to: ~ Date of Service: 05/11/2022 Subjective Subjective Narrative: Overnight: Patient was trying the unit doors trying to get out.? She was also starting to get mean.? She stated to this fiction and nonfiction prose writer, get out of my face, leave [...] and laid down on the bed.? This fiction and nonfiction prose writer gave report to the Special Care Unit nurse and then this fiction and nonfiction prose writer collected the patient's belongings and took [...] signed by Ji Smith MD> 05/11/22 0850 [facility] Work Phone: Progress note Author Dar Nation [facility] May 12, 2022 3:21pm Note Date/Time May 12, 2022 3:[address] [facility] [address] [place] [address] Psychiatry Progress Note Signed Patient: Antoinette Recio MR#: [id number] : 1995 Acct:[id number] Age/Sex: 27 / F Adm Date: 3 Loc: Room: [address] [place] [address] Type : ADM IN Attending Dr: Tiana [...] signed by Dar Nation MD> 05/12/22 1521 [facility] Work Phone: Summary Purpose Family History No Family History Records Found Relationship Condition Age at Onset Recorded Date/T tej Not Specified Suicide Unknown Advance Directives No Advanced Directives Records Found Advance Directive Response Recorded Date/ Time Advance Directives No April 21, 019 10:38am Chief Complaint and Reason for [...] section and content) DATE CREATED AUTHOR 2018 [facility] DATE CREATED AUTHOR AUTHOR'S ORGANIZ ATION 07/17/2020 [facility] DATE CREATED AUTHOR AUTHOR'S ORGANIZ ATION 03/19/2021 [facility] DATE CREATED AUTHOR AUTHOR'S ORGANIZ ATION 06/15/2021 [facility] DATE CREATED AUTHOR AUTHOR'S ORGANIZ ATION 12/21/2021 [facility] DATE CREATED AUTHOR AUTHOR'S ORGANIZ ATION 02/23/2023 [facility] DATE CREATED AUTHOR AUTHOR'S ORGANIZ ATION 06/05/2023 [facility] DATE CREATED AUTHOR AUTHOR'S ORGANIZ ATION 08/13/2023 [facility] DATE CREATED AUTHOR AUTHOR'S ORGANIZ ATION 09/17/2023 [facility] DATE CREATED AUTHOR AUTHOR'S ORGANIZ ATION 11/06/2023 [facility] EPIC Care Teams (unrecognized sec tion and content) [...] MD Admit Provider, Attending Pr ovider Active Equipment Worker Relationship Specialty Start Date End Date No Pcp, [place] [address] PCP - General Family Medicine 03/30/23 Equipment Worker Relationship Specialty Start Date End Date No Pcp, [place] [address] PCP - General Family Medicine 03/30/23 Goals [...] BE BASED ON THE PRIMARY CLINICAL RECORDS. [employer] [facility]. provides no warranty or guarantee of the accuracy or completeness of information in this document.
[2023-11-07 19:12] VITALS: PULSE 102
--- NOTE | 2023-11-07 19:41 | ED_ITS ---
HPI HPI - General Adult General Chief complaint: Upper Respiratory Infection Stated complaint: SOB, SORE THROAT Time Seen by Provider: 11/07/23 19:17 Source: patient Mode of arrival: walk-in Limitations: no limitations History of Present Illness HPI narrative: 28-year-old female to the emergency department chief complaint of cough.'s been ongoing for a week. Her INFORMATICA DEVELOPER is put her on amoxicillin. She is currently 35.5 weeks . She reports that it toribio when she coughs. Cough is dry. She also has nasal congestion and ear pressure. Denies any fever, sweats, chills. Related Data Home Medications ?Medication ?Instructions ?Recorded ?Confirmed amoxicillin 500 mg capsule mg 11/07/23 buprenorphine 8 mg-naloxone 2 mg film 11/07/23 sublingual film bupropion HCl 150 mg 24 hr tablet, mg PO 11/07/23 extended release magnesium oxide 400 mg (241.3 mg mg 11/07/23 magnesium) tablet naloxone 4 mg/actuation nasal spray intranasal 11/07/23 Allergies Allergy/AdvReac Type Severity Reaction Status Date / Time erythromycin base Allergy Anaphylaxis Verified 11/07/23 19:07 Opioid HPI Opioid Management Most Recent Opioid Data: Urine Cannabinoids Positive (.) A 10/18/23 16:24 Ur Phencyclidine Scrn Negative (NEGATIVE) 10/18/23 16:24 Review of Systems ROS Status of ROS 10 or more systems reviewed and unremark able except as noted in history and below PFSH PFSH Social History Little interest or pleasure in doing things: not at all Feeling down, depressed, or hopeless: not at all Exam Narrative Exam Narrative: VITALS: I have reviewed the triage vital signs. GENERAL: Well developed, well appearing adult in no acute distress. NEURO: Alert and oriented. Moves all extremities. Face is symmetric and expressive. EYES: PERRL. No scleral icterus or conjunctival injection. No discharge. HENT: Normocephalic, atraumatic. Hearing is grossly intact. Mild nasal congestion. Mucous membranes moist. NECK: No JVD. Patient moves neck without restriction. CARDIO: Rhythm regular. Normal rate. No murmur, rub, or gallop. Pulses equal bilaterally in the upper and lower extremity. No lower extremity edema. PULM: Lungs clear to auscultation in all bishop. No wheezes, rales, or rhonchi. No conversational dyspnea. No splinting, stridor, or accessory muscle use. Occasional dry cough GI/: Abdomen is soft and non-tender. Gravid uterus. Normoactive bowel sounds. EXTREMITIES: Symmetric muscle bulk. No joint swelling. No clubbing, cyanosis, or deformity. SKIN: Warm and dry. Normal turgor. No rash or lesions appreciated. PSYCH: Mood, affect, and interaction is appropriate to the setting. Constitutional Vital Signs, click to edit/add: Last Vital Signs Temp 98.1 F 11/07/23 19:03 Pulse 96 H 11/07/23 19:03 Resp 18 11/07/23 19:03 BP 147/94 H 11/07/23 19:03 Pulse Ox 97 11/07/23 19:03 O2 Del Method Room Air 11/07/23 19:03 Course Vital Signs Vital signs: Vital Signs Temperature 98.1 F 11/07/23 19:03 Pulse Rate 96 H 11/07/23 19:03 Respiratory Rate 18 11/07/23 19:03 Blood Pressure 147/94 H 11/07/23 19:03 Pulse Oximetry 97 11/07/23 19:03 Oxygen Delivery Method Room Air 11/07/23 19:03 Temperature 98.1 F 11/07/23 19:03 Pulse Rate 96 H 11/07/23 19:03 Respiratory Rate 18 11/07/23 19:03 Blood Pressure 147/94 H 11/07/23 19:03 Pulse Oximetry 97 11/07/23 19:03 Oxygen Delivery Method Room Air 11/07/23 19:03 Medical Decision Making [facility] Narrative Medical decision making narrative: Well-appearing 28-year-old female to the emergency department chief complaint of cough. Vital stable, the patient is afebrile. Lungs are clear to auscultation. She is already on a course of amoxicillin. We discussed the lack of efficacy of [id number] cough and cold medications, risks associate with . She will follow-up with her INFORMATICA DEVELOPER for further recommendations. No indication for chest x-ray at this time. Return precautions were discussed. All questions were answered. The patient was discharged home Discharge Plan Discharge Chief Complaint: Upper Respiratory Infection Clinical Impression: Cough Patient Disposition: Home, Self-Care Time of Disposition Decision: 19:39 Condition: Good Mode of Transportation: Private Vehicle Prescriptions / Home Meds: No Action amoxicillin 500 mg capsule magnesium oxide 400 mg (241.3 mg magnesium) tablet bupropion HCl 150 mg tablet extended release 24 hr PO buprenorphine-naloxone 8-2 mg film naloxone 4 mg/actuation spray,non-aerosol INTRANASAL Print Language: Polish Instructions: Acute Cough (ED), at 35 to 38 Weeks (ED) Additional Instructions: Call the office of your primary care doctor to arrange for follow-up within the above-stated timeframe. Your ED visit was focused on your acute issue and does not replace primary care. You should review your labs, imaging, and diagnoses from this ED visit with your primary care physician. There may be non-emergent/ incidental findings that need further evaluation. You should review your vital signs including blood pressure with your PCP. If you were prescribed medications you should discuss possible side-effects and drug interactions with your pharmacist. Call 911 or go to the nearest Emergency Department if you develop any new or worsening symptoms. Seek immediate medical attention if you develop: worsening shortness of breath, difficulty breathing, chest pain, nausea, vomiting, weakness, numbness, tingling, excessive sweating, loss of motion in your arms or legs, or any new or worsening symptoms. Referrals: Donna Prasad POST[employer] SERV[employer] MAIL PROCESSOR [Primary Care Provider] - 1 week
== END 2023-11-07 19:44 | disposition home or self-care (01) ==
PROVIDERS: Emergency Provider Student in an Organized Health Care Education/Training Program; PCP Nurse Practitioner
DX: O26.893 Other specified pregnancy related conditions, third trimester (principal); R05.9 Cough, unspecified; Z3A.35 35 weeks gestation of pregnancy
CPT/HCPCS: 99281

== ENCOUNTER 2023-11-09 19:06 | Outpatient (OUT) | payer OTHER, SELFPAY ==
--- OUTSIDE RECORDS SUMMARY | 2023-11-09 19:11 | XMS_ITS | CCD ---
Author Organization [facility] Care Team Providers Care Industrial Safety And Health Manager Name Role Phone CHER MARAVILLA Admitting Unavailable CHER MARAVILLA Attending Unavailable CHER MARAVILLA Referring Unavailable FERNANDO KELLI Primary Care Unavailable CHER MARAVILLA Referring Unavailable FERNANDO [facility] Primary Care Unavailable CHER MARAVILLA Admitting Unavailable CHER MARAVILLA Attending Unavailable FERNANDO KELLI Primary Care Unavailable VIPUL TRIPATHI Referring Unavailable FERNANDO, [facility] Primary Care Unavailable RACHAEL MERAZ Consulting Unavailable CHRE MARAVILLA Admitting Unavailable CHER MARAVILLA Attending Unavailable [...] Provider Unavai MD Tiana Stevenson Admit Provider [phone] MD Tiana Smith Attending Provider NO FAMILY, PHYSICIAN Primary Care Provider Unava MD Sara Delgado Emergency Provider MD Rios Adr Admit Provider MD Dar Nation Attending Provider [phone] NO FAMILY, PHYSICIAN Primary Care Unavailable Dar Nation Admitting Unavailable Dar Nation Attending Unavailable NO FAMILY, PHYSICIAN Primary Care Unavailable Dra Nation Attending Unavailable Ji Smith Admitting Unavailab [...] Azithromycin; Translations: [azithromycin] Drug Allergy 05-08-2022 Anaphylaxis [facility] Medications Current Medications Medication Drug Class(es) Dates [...] Every 2 hours November 30, 2022 12:00am [place] (No Known Home Meds) (1 source) Start: 11-27-2022 [place] (No Known Home Meds) Active November 27, [...] 06-16-19 ABSOLUTE BASOPHIL 0.1 X10E9/L Normal 0.0-0.2 [facility] Comment on above: Performed By: #### 2 106-3 #### [facility] ([id number]) [address] [place] [address] 82961 ABSOLUTE NEUTROPHIL 11.8 X10E9/L High 1.5-6.6 [facility] Comment on above: Performed By: #### 2 106-3 #### [facility] ([id number]) [address] [place] [address] 39547 Basophils/100 WBC (Bld) 0.4 % Normal [facility] Comment on above: Performed By: #### 2 106-3 #### [facility] ([id number]) [address] [place] [address] 08663 Eosinophils (Bld) [#/Vol] 0.1 10*3/uL Normal 0.0-0.4 [facility] Comment on above: Performed By: #### 2 106-3 #### [facility] ([id number]) [address] [place] [address] 53967 Eosinophils/100 WBC (Bld) 0.4 % Normal [facility] Comment on above: Performed By: #### 2 106-3 #### [facility] ([id number]) [address] [place] [address] 52092 Erythrocyte distribution width (RBC) [Ratio] 15.3 % High 11.5-15.0 [facility] Comment on above: Performed By: #### 2 106-3 #### [facility] ([id number]) [address] [place] [address] 57063 Hematocrit (Bld) [Volume fraction] 35.3 % Normal 35-47 [facility] Comment on above: Performed By: #### 2 106-3 #### [facility] ([id number]) [address] [place] [address] 73217 Hemoglobin (Bld) [Mass/Vol] 12.0 g/dL Normal 11.7-15.5 [facility] Comment on above: Performed By: #### 2 106-3 #### [facility] ([id number]) [address] [place] [address] 29888 Lymphocytes (Bld) [#/Vol] 1.4 10*3/uL Normal 1.0-3.5 [facility] Comment on above: Performed By: #### 2 106-3 #### [facility] ([id number]) [address] [place] [address] 74313 Lymphocytes/100 WBC (Bld) 10.3 % Normal [facility] Comment on above: Performed By: #### 2 106-3 #### [facility] ([id number]) [address] [place] [address] 09169 MCH (RBC) [Entitic mass] 28.1 pg Normal 27-34 [facility] Comment on above: Performed By: #### 2 106-3 #### [facility] ([id number]) [address] [place] [address] 79047 MCHC (RBC) [Mass/Vol] 33.9 g/dL Normal 32-36 [facility] Comment on above: Performed By: #### 2 106-3 #### [facility] ([id number]) [address] [place] [address] 49688 MCV (RBC) [Entitic vol] 83 fL Normal 80-100 [facility] Comment on above: Performed By: #### 2 106-3 #### [facility] ([id number]) [address] [place] [address] 98204 Monocytes (Bld) [#/Vol] 0.5 10*3/uL Normal 0-0.9 [facility] Comment on above: Performed By: #### 2 106-3 #### [facility] ([id number]) [address] [place] [address] 80778 Monocytes/100 WBC (Bld) 3.6 % Normal [facility] Comment on above: Performed By: #### 2 106-3 #### [facility] ([id number]) [address] [place] [address] 99127 Neutrophils/100 WBC (Bld) 85.3 % Normal [facility] Comment on above: Performed By: #### 2 106-3 #### [facility] ([id number]) [address] [place] [address] 59811 Platelet mean volume (Bld) [Entitic vol] 8.2 fL Normal 7-12 [facility] Comment on above: Performed By: #### 2 106-3 #### [facility] ([id number]) [address] [place] [address] 53328 Platelets (Bld) [#/Vol] 434 10*3/uL Normal 150-450 [facility] Comment on above: Performed By: #### 2 106-3 #### [facility] ([id number]) [address] [place] [address] 40031 RBC COUNT 4.27 X10E12/L Normal 3.80-5.20 [facility] Comment on above: Performed By: #### 2 106-3 #### [facility] ([id number]) [address] [place] [address] 67902 WBC (Bld) [#/Vol] 13.8 10*3/uL High 4.0-11.0 [facility] Comment on above: Performed By: #### 2 106-3 #### [facility] ([id number]) [address] [place] [address] 33675 COMPREHENSIVE METABOLIC PANE Shaji 06-16-2023 Albumin [Mass/Vol] 3.9 g/dL Normal 3.2-5.3 [facility] Comment on above: Performed By: #### 2 106-3 #### [facility] ([id number]) [address] [place] [address] 12500 ALP [Catalytic activity/Vol] 46 U/L Normal 39-130 [facility] Comment on above: Performed By: #### 2 106-3 #### [facility] ([id number]) [address] [place] [address] 11008 ALT [Catalytic activity/Vol] 12 U/L Normal 0-31 [facility] Comment on above: Performed By: #### 2 106-3 #### [facility] ([id number]) [address] [place] [address] 73004 Anion gap [Moles/Vol] 12 mmol/L Normal 5-15 [facility] Comment on above: Performed By: #### 2 106-3 #### [facility] ([id number]) [address] [place] [address] 45713 AST [Catalytic activity/Vol] 15 U/L Normal 0-41 [facility] Comment on above: Performed By: #### 2 106-3 #### [facility] ([id number]) [address] [place] [address] 05269 Bilirubin [Mass/Vol] 0.3 mg/dL Normal 0.3-1.2 [facility] Comment on above: Performed By: #### 2 106-3 #### [facility] ([id number]) [address] [place] [address] 63983 Calcium [Mass/Vol] 9.0 mg/dL Normal 8.5-10.5 [facility] Comment on above: Performed By: #### 2 106-3 #### [facility] ([id number]) [address] [place] [address] 92706 Chloride [Moles/Vol] 105 mmol/L Normal 98-109 [facility] Comment on above: Performed By: #### 2 106-3 #### [facility] ([id number]) [address] [place] [address] 66640 CO2 [Moles/Vol] 19 mmol/L Low 22-32 [facility] Comment on above: Performed By: #### 2 106-3 #### [facility] ([id number]) [address] [place] [address] 52399 Creatinine [Mass/Vol] 0.58 mg/dL Normal 0.40-1.00 [facility] Comment on above: Result Comment: METH OD TRACEABLE TO IDMS STANDARD Performed By: #### 2 106-3 #### [facility] ([id number]) [address] [place] [address] 01241 eGFR (CKD-EPI) NON-RACE DEPENDENT >90 Normal >59 [facility] Comment on above: Result Comment: Reported eGFR is based on the CKD-EPI 2020 equation that does not use a race coefficient. Performed By: #### 2 106-3 #### [facility] ([id number]) [address] [place] [address] 56840 Glucose [Mass/Vol] 87 mg/dL Normal 65-99 [facility] Comment on above: Performed By: #### 2 106-3 #### [facility] ([id number]) [address] [place] [address] 29146 Potassium [Moles/Vol] 3.6 mmol/L Normal 3.5-5.0 [facility] Comment on above: Performed By: #### 2 106-3 #### [facility] ([id number]) [address] [place] [address] 37039 Protein [Mass/Vol] 7.5 g/dL Normal 6.0-8.0 [facility] Comment on above: Performed By: #### 2 106-3 #### [facility] ([id number]) [address] [place] [address] 50625 Sodium [Moles/Vol] 136 mmol/L Normal 134-146 [facility] Comment on above: Performed By: #### 2 106-3 #### [facility] ([id number]) [address] [place] [address] 16569 Urea nitrogen [Mass/Vol] 7 mg/dL Normal 5-23 [facility] Comment on above: Performed By: #### 2 106-3 #### [facility] ([id number]) [address] [place] [address] 43610 MAGNESIUMon 06-16-2023 Magnesium [Mass/Vol] 1.7 mg/dL Low 1.8-2.6 [facility] Comment on above: Performed By: #### 2 106-3 #### [facility] ([id number]) [address] [facility] [place] [address] SARS/FLU A+B/RSV by NAAT/Mol ecchunon 06-16-2023 SARS/FLU [...] operators who are performing tests using either [employer] or [employer] systems and is limited to laboratories that [...] repeat. Fact Sheet for Healthcare Providers: https://www.fda.gov/me gerry/319742/download Fact Sheet for Patients: https://www.fda.gov/mi gerry/564900/download Normal [facility] Comment on above: Performed By: #### 2 106-3 #### [facility] ([id number]) [address] [place] [address] [place] [address] URINALYSISon 06-16-2023 Bilirubin Ql (U) Negative Normal NEG [facility] Comment on above: Performed By: #### 2 106-3 #### [facility] ([id number]) [address] [place] [address] [place] [address] BLOOD/HGB Negative Normal NEG [facility] Comment on above: Performed By: #### 2 106-3 #### [facility] ([id number]) [address] [place] [address] 32453 Color (U) YELLOW Normal YELLOW [facility] Comment on above: Performed By: #### 2 106-3 #### [facility] ([id number]) [address] [place] [address] [place] [address] Glucose Ql (U) Negative Normal NEG [facility] Comment on above: Performed By: #### 2 106-3 #### [facility] ([id number]) [address] [place] [address] [place] [address] Ketones Ql (U) Negative Normal NEG [facility] Comment on above: Performed By: #### 2 106-3 #### [facility] ([id number]) [address] [place] [address] [place] [address] Leukocyte esterase Test strip Ql (U) Negative Normal NEG [facility] Comment on above: Performed By: #### 2 106-3 #### [facility] ([id number]) [address] [place] [address] [place] [address] MUCOUS PRESENT Abnormal NONE [facility] Comment on above: Performed By: #### 2 106-3 #### [facility] ([id number]) [address] [place] [address] 60770 Nitrite Ql (U) Negative Normal NEG [facility] Comment on above: Performed By: #### 2 106-3 #### [facility] ([id number]) [address] [place] [address] 34084 pH (U) 6.5 [pH] Normal 5.0-8.5 [facility] Comment on above: Performed By: #### 2 106-3 #### [facility] ([id number]) [address] [place] [address] 13373 Protein Ql (U) Trace Abnormal NEG [facility] Comment on above: Performed By: #### 2 106-3 #### [facility] ([id number]) [address] [place] [address] 99242 R.B.CELLS 0 /hpf Normal 0-5 [facility] Comment on above: Performed By: #### 2 106-3 #### [facility] ([id number]) [address] [place] [address] 28785 Specific gravity (U) [Rel density] 1.025 Normal 1.003-1.035 [facility] Comment on above: Performed By: #### 2 106-3 #### [facility] ([id number]) [address] [place] [address] 52756 SQUAMOUS EPITHELIUM 2 /hpf Normal 0-5 [facility] Comment on above: Performed By: #### 2 106-3 #### [facility] ([id number]) [address] [place] [address] 66833 TURBIDITY CLEAR Normal CLEAR [facility] Comment on above: Performed By: #### 2 106-3 #### [facility] ([id number]) [address] [place] [address] 05281 Urobilinogen Qn (U) 1.0 {Jazmine'U}/dL Normal <1.1 [facility] Comment on above: Performed By: #### 2 106-3 #### [facility] ([id number]) [address] [place] [address] 82643 W.B.CELLS 0 /hpf Normal 0-5 [facility] Comment on above: Performed By: #### 2 106-3 #### [facility] ([id number]) [address] [place] [address] 19373 CHLAMYDIA/GC PCR, FLon 05-04 CHLAMYDIA/GC PCR, FL [...] are dependent on adequate specimen collection. Normal [facility] Comment on above: Performed By: #### 2 106-3 #### [facility] ([id number]) [address] [place] [address] 12815 Cytologyon 05-05-2023 Cytology Normal [facility] Comment on above: Result Comment: [facility] [address] [place] [address] Gynecologic Cytology Consultation Patient Name:ANTOINETTE RECIO:1995 (Age: 28)Gender:FTaken:4Reported:4Physician(s):Nieves Velasquez M.D. ([phone])Copy To: Rec. #:[id number]: #[id number] Final Cytologic Interpretation ThinPrep Pap Test (Cervical): Satisfactory for evaluation. A transformation zone component is present. NEGATIVE FOR INTRAEPITHELIAL LESION OR MALIGNANCY. Numerous neutrophilic leukocytes are present. j/05/21/2023 Interpretation performed at [facility], [address] [place] [address], License number: [id number]. 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 Nbdrld-hr-bpwwud ratio is <0.80. Performed By: #### N UM #### [facility] ([id number]) [address] [place] [address] 69975 HEPATITIS A IGM Non-Reactive Normal NRCT [facility] Comment on above: Performed By: #### N UM #### [facility] ([id number]) [address] [place] [address] 58050 HEPATITIS B CORE IGM Negative Normal NEG [facility] Comment on above: Performed By: #### N UM #### [facility] ([id number]) [address] [place] [address] 08335 HEPATITIS B SURF AG Negative Normal NEG [facility] Comment on above: Performed By: #### N UM #### [facility] ([id number]) [address] [place] [address] 47444 COMPLETE BLOOD COUNTon 04-15 Erythrocyte distribution width (RBC) [Ratio] 18.6 % High 11.5-15.0 [facility] Comment on above: Performed By: #### C BC, CMP, 2532-0, 3084-1, AHP, 52153-1, 19264-9, 07808-6, 68204-3 #### [facility] ([id number]) [address], [address] [place] [address] Hematocrit (Bld) [Volume fraction] 34.6 % Low 35-47 [facility] Comment on above: Performed By: #### C BC, CMP, 2532-0, 3084-1, AHP, 01796-4, 99379-7, 66703-5, 02711-6 #### [facility] ([id number]) [address], [address] [place] [address] Hemoglobin (Bld) [Mass/Vol] 11.4 g/dL Low 11.7-15.5 [facility] Comment on above: Performed By: #### C BC, CMP, 2532-0, 3084-1, AHP, 51591-4, 00156-0, 62583-8, 15222-9 #### [facility] ([id number]) [address], [address] [place] [address] MCH (RBC) [Entitic mass] 26.7 pg Low 27-34 [facility] Comment on above: Performed By: #### C BC, CMP, 2532-0, 3084-1, AHP, 60470-3, 79709-4, 19651-2, 40649-5 #### [facility] ([id number]) [address], [address] [place] [address] MCHC (RBC) [Mass/Vol] 32.8 g/dL Normal 32-36 [facility] Comment on above: Performed By: #### C BC, CMP, 2532-0, 3084-1, AHP, 25447-1, 56170-6, 61135-5, 63817-0 #### [facility] ([id number]) [address], [address] [place] [address] MCV (RBC) [Entitic vol] 81 fL Normal 80-100 [facility] Comment on above: Performed By: #### C BC, CMP, 2532-0, 3084-1, AHP, 15657-6, 42738-1, 00355-5, 12755-5 #### [facility] ([id number]) [address], [address] [place] [address] Platelet mean volume (Bld) [Entitic vol] 8.5 fL Normal 7-12 [facility] Comment on above: Performed By: #### C BC, CMP, 2532-0, 3084-1, AHP, 55876-6, 77134-2, 68707-4, 05441-0 #### [facility] ([id number]) [address], [address] [place] [address] Platelets (Bld) [#/Vol] 351 10*3/uL Normal 150-450 [facility] Comment on above: Performed By: #### C BC, CMP, 2532-0, 3084-1, AHP, 85887-4, 57960-6, 24465-0, 49551-1 #### [facility] ([id number]) [address], [address] [place] [address] RBC COUNT 4.26 X10E12/L Normal 3.80-5.20 [facility] Comment on above: Performed By: #### C BC, CMP, 2532-0, 3084-1, AHP, 35600-9, 99972-2, 78230-9, 54181-7 #### [facility] ([id number]) [address], [address] [place] [address] WBC (Bld) [#/Vol] 8.9 10*3/uL Normal 4.0-11.0 [facility] Comment on above: Performed By: #### C BC, CMP, 2532-0, 3084-1, AHP, 17635-9, 19934-9, 12645-4, 38189-8 #### [facility] ([id number]) [address], [address] [place] [address] COMPREHENSIVE METABOLIC PANE Shaji 04-16-2023 Albumin [Mass/Vol] 4.4 g/dL Normal 3.2-5.3 [facility] Comment on above: Performed By: #### C BC, CMP, 2532-0, 3084-1, AHP, 45188-6, 49036-8, 67297-1, 31566-2 #### [facility] ([id number]) [address], [address] [place] [address] ALP [Catalytic activity/Vol] 42 U/L Normal 39-130 [facility] Comment on above: Performed By: #### C BC, CMP, 2532-0, 3084-1, AHP, 95615-0, 57264-9, 71977-4, 73922-9 #### [facility] ([id number]) [address], [address] [place] [address] ALT [Catalytic activity/Vol] 12 U/L Normal 0-31 [facility] Comment on above: Performed By: #### C BC, CMP, 2532-0, 3084-1, AHP, 93903-1, 57538-6, 11776-5, 46572-9 #### [facility] ([id number]) [address], [address] [place] [address] Anion gap [Moles/Vol] 9 mmol/L Normal 5-15 [facility] Comment on above: Performed By: #### C BC, CMP, 2532-0, 3084-1, AHP, 68355-0, 91639-4, 88129-3, 87532-8 #### [facility] ([id number]) [address], [address] [place] [address] AST [Catalytic activity/Vol] 13 U/L Normal 0-41 [facility] Comment on above: Performed By: #### C BC, CMP, 2532-0, 3084-1, AHP, 49361-6, 37649-2, 79114-1, 48854-3 #### [facility] ([id number]) [address], [address] [place] [address] Bilirubin [Mass/Vol] 0.7 mg/dL Normal 0.3-1.2 [facility] Comment on above: Performed By: #### C BC, CMP, 2532-0, 3084-1, AHP, 25278-4, 08091-0, 88342-4, 09906-8 #### [facility] ([id number]) [address], [address] [place] [address] Calcium [Mass/Vol] 9.4 mg/dL Normal 8.5-10.5 [facility] Comment on above: Performed By: #### C BC, CMP, 2532-0, 3084-1, AHP, 77051-2, 33567-8, 02084-6, 55862-9 #### [facility] ([id number]) [address] [place] [address] Chloride [Moles/Vol] 103 mmol/L Normal 98-109 [facility] Comment on above: Performed By: #### C BC, CMP, 2532-0, 3084-1, AHP, 65173-0, 29735-5, 75891-1, 59527-1 #### [facility] ([id number]) [address] [place] [address] CO2 [Moles/Vol] 24 mmol/L Normal 22-32 [facility] Comment on above: Performed By: #### C BC, CMP, 2532-0, 3084-1, AHP, 04783-7, 79718-7, 83419-4, 57838-5 #### [facility] ([id number]) [address], [address] [place] [address] Creatinine [Mass/Vol] 0.63 mg/dL Normal 0.40-1.00 [facility] Comment on above: Result Comment: METH OD TRACEABLE TO IDMS STANDARD Performed By: #### C SARWAT, CMP, 2532-0, 3084-1, AHP, 27576-5, 19331-2, 65049-7, 51791-0 #### [facility] ([id number]) [address], [address] [place] [address] eGFR (CKD-EPI) NON-RACE DEPENDENT >90 Normal >59 [facility] Comment on above: Result Comment: Reported eGFR is based on the CKD-EPI 2020 equation that does not use a race coefficient. Performed By: #### C SARWAT, CMP, 2532-0, 3084-1, AHP, 49232-1, 15252-2, 19629-2, 00927-1 #### [facility] ([id number]) [address], [address] [place] [address] Glucose [Mass/Vol] 84 mg/dL Normal 65-99 [facility] Comment on above: Performed By: #### C OPAL FAM, 2532-0, 3084-1, AHP, 73635-8, 32970-7, 92588-0, 67919-8 #### [facility] ([id number]) [address] [place] [address] Potassium [Moles/Vol] 3.4 mmol/L Low 3.5-5.0 [facility] Comment on above: Performed By: #### C BC, CMP, 2532-0, 3084-1, AHP, 60855-8, 02571-8, 54557-7, 16023-5 #### [facility] ([id number]) [address] [address] [place] [address] Protein [Mass/Vol] 6.9 g/dL Normal 6.0-8.0 [facility] Comment on above: Performed By: #### C BC, CMP, 2532-0, 3084-1, AHP, 07447-3, 62411-4, 71309-6, 89892-7 #### [facility] ([id number]) [address], [address] [place] [address] Sodium [Moles/Vol] 136 mmol/L Normal 134-146 [facility] Comment on above: Performed By: #### C BC, CMP, 2532-0, 3084-1, AHP, 30503-4, 79500-8, 48591-1, 76023-8 #### [facility] ([id number]) [address], [address] [place] [address] Urea nitrogen [Mass/Vol] 11 mg/dL Normal 5-23 [facility] Comment on above: Performed By: #### C BC, CMP, 2532-0, 3084-1, AHP, 57119-5, 03548-1, 49724-6, 44833-5 #### [facility] ([id number]) [address], [address] [place] [address] DRUG SCREEN, URINEon 024 AMPHETAMINE/METHAMP Negative Normal NEG [facility] Comment on above: Result Comment: AMPH /METH screening cut off = 1000 ng/mL Performed By: #### N UM #### [facility] ([id number]) [address] [place] [address] 10586 BARBITURATES Negative Normal NEG [facility] Comment on above: Result Comment: Carmella iturates screening cut off value = 200 ng/mL Performed By: #### N UM #### [facility] ([id number]) [address] [place] [address] 66904 BENZODIAZEPINES Negative Normal NEG [facility] Comment on above: Result Comment: German odiazepines screening cut off value = 200 ng/mL Performed By: #### N UM #### [facility] ([id number]) [address] [place] [address] 22238 CANNABINOIDS Positive Abnormal NEG [facility] Comment on above: Result Comment: Conf irmation available upon request. Cannabinoids/THC screening cut off value = 50 ng/mL Performed By: #### N UM #### [facility] ([id number]) [address] [place] [address] 58923 COCAINE METABOLITE Negative Normal NEG [facility] Comment on above: Result Comment: Coca ine screening cut off value = 300 ng/mL Performed By: #### N UM #### [facility] ([id number]) [address] [place] [address] 45361 ECSTASY Negative Normal NEG [facility] Comment on above: Result Comment: Ecst asy screening cut off value = 500 ng/mL This report is intended for use in clinical monitoring or management of patients. Performed By: #### N UM #### [facility] ([id number]) [address] [place] [address] 51132 METHADONE Negative Normal NEG [facility] Comment on above: Result Comment: Meth adone screening cut off value = 300 ng/mL. Performed By: #### N UM #### [facility] ([id number]) [address] [place] [address] 83974 OPIATES Negative Normal NEG [facility] Comment on above: Result Comment: Opia markie screening cut off value = 300 ng/mL NOTE: This test is used for the detection of codeine, hydrocodone (>1000 ng/mL), morphine and hydromorphone (>900 ng/mL) in urine. Performed By: #### N UM #### [facility] ([id number]) [address] [place] [address] [place] [address] OXYCODONE Negative Normal NEG [facility] Comment on above: Result Comment: Oxyc odone screening cut off value = 300 ng/mL NOTE: This test is used for the detection of oxycodone and oxymorphone in urine. Performed By: #### N UM #### [facility] ([id number]) [address] [place] [address] 70179 PHENCYCLIDINE Negative Normal NEG [facility] Comment on above: Result Comment: Phen cyclidine screening cut off value = 25 ng/mL Performed By: #### N UM #### [facility] ([id number]) [address] [place] [address] 72662 HIV 1+2 Ab+HIV1 p24 Ag IA Ql on 04-16-2023 HIV 1 and 2 Ab/Ag Screen Non-Reactive Normal NRCT [facility] Comment on above: Result Comment: This information [...] diagnoses. Performed By: #### N UM #### [facility] ([id number]) [address] [place] [address] 37036 LDH [Catalytic activity/Vol] on 04-16-2023 LDH 156 U/L Normal 100-235 [facility] Comment on above: Performed By: #### N UM #### [facility] ([id number]) [address] [place] [address] 20670 PROTEIN CREAT RATIOon 2023 RANDOM URINE PROTEIN 180 mg/L High <120 [facility] Comment on above: Performed By: #### N UM #### [facility] ([id number]) [address] [place] [address] 71762 U/PRO/SHEAR SCRAPMAN RATIO CALC 0.07 Normal <0.2 [facility] Comment on above: Result Comment: Neph rotic Syndrome is associated with ratios >3.5 Performed By: #### N UM #### [facility] ([id number]) [address] [place] [address] 59431 URINE CREATININE,RDM 273.50 mg/dL Normal Pr [facility] Comment on above: Performed By: #### N UM #### [facility] ([id number]) [address] [place] [address] 42707 Rubella virus Ab Ql (S)on RUBELLA IMMUNE IgG 3.1 AI Normal [facility] Comment on above: Result Comment: Interpretation-------- <0.8 NEGATIVE-considered Not Immune 0.8-0.9 EQUIVOCAL-consider retesting with new specimen >0.9 POSITIVE-considered Immune Performed By: #### N UM #### [facility] ([id number]) [address] [place] [address] 41643 T. pallidum IgG+IgM IA Ql (S )on 04-16-2023 Syphilis Total <0.2 Normal 0.0-0.8 [facility] Comment on above: Result Comment: NON REACTIVE No serologic evidence of infection to Treponema pallidum (syphilis). Repeat testing may be considered in patients with suspected acute or primary syphilis in 2 to 4 weeks. Performed By: #### N UM #### [facility] ([id number]) [address] [place] [address] 00025 URIC ACIDon 04-16-2023 Urate [Mass/Vol] 7.5 mg/dL High 2.6-7.2 [facility] Comment on above: Performed By: #### N UM #### [facility] ([id number]) [address] [place] [address] 31217 URINALYSISon 04-16-2023 Bilirubin Ql (U) Negative Normal NEG [facility] BLOOD/HGB Negative Normal NEG [facility] CA OXALATE CRYSTALS PRESENT Abnormal NONE [facility] Color (U) BROWN Abnormal YELLOW [facility] Glucose Ql (U) Negative Normal NEG [facility] Ketones Ql (U) Negative Normal NEG [facility] Leukocyte esterase Test strip Ql (U) Small Abnormal NEG [facility] MUCOUS PRESENT Abnormal NONE [facility] Nitrite Ql (U) Negative Normal NEG [facility] pH (U) 6.0 [pH] Normal 5.0-8.5 [facility] Protein Ql (U) 30 mg/dL Abnormal NEG [facility] R.B.CELLS 2 /hpf Normal 0-5 [facility] Specific gravity (U) [Rel density] 1.030 Normal 1.003-1.035 [facility] SQUAMOUS EPITHELIUM >27 High 0-5 [facility] TURBIDITY CLOUDY Abnormal CLEAR [facility] Urobilinogen (U) [Mass/Vol] mg/dL Normal <1.1 [facility] W.B.CELLS <1 Normal 0-5 [facility] URINE CULTUREon 04-16-2023 Bacteria identified Cx Nom (U) CULTURE RESULTS 50-100,000 ORGANISMS/ML NORMAL UROGENITAL YOGESH Normal [facility] Comment on above: Performed By: #### 2 106-3 #### [facility] ([id number]) [address] [place] [address] [place] [address] US PREG LESS THAN 14 WKS WIT H TRANSVAGINALon 04-16-2023 US PREG LESS THAN 14 WKS WITH TRANSVAGINAL US PREG LESS THAN 14 WKS WITH TRANSVAGINAL US PREG LESS THAN 14 WKS WITH TRANSVAGINAL: 04/16/2023 1:04 PM Clinical: Check dates and viability. Real-time transabdominal and transvaginal sonography pelvis performed.. No comparison. There is a single live intrauterine . [place]-rump length of 2.9 mm corresponds to 5 [...] Cook MD on 04/16/2023 6:58 PM Normal [facility] VZV IgG IA Ql (S)on 04-16-19 24 VARICELLA IgG 1.1 AI High <0.9 [facility] Comment on above: Result Comment: Interpretation-------- <0.9 Negative 0.9 - 1.0 Equivocal >1.0 Positive Performed By: #### N UM #### [facility] ([id number]) [address] [place] [address] 29987 CBC AND AUTO DIFFon 03-30-19 24 ABSOLUTE BASOPHIL 0.1 X10E9/L Normal 0.0-0.2 [facility] Comment on above: Performed By: #### C SANAM [facility], 66693-8 #### [facility] ([id number]) [address] [place] [address] 01143 ABSOLUTE NEUTROPHIL 7.6 X10E9/L High 1.5-6.6 [facility] Comment on above: Performed By: #### C OPAL MARION, 48445-9 #### [facility] ([id number]) [address] [place] [address] 70592 Basophils/100 WBC (Bld) 0.7 % Normal P [facility] Comment on above: Performed By: #### C OPAL MRAION, 03793-8 #### [facility] ([id number]) [address] [place] [address] Eosinophils (Bld) [#/Vol] 0.2 10*3/uL Normal 0.0-0.4 [facility] Comment on above: Performed By: #### Doretha MARION CMP, #### [facility] ([id number]) [address] [place] [address] 37846 Eosinophils/100 WBC (Bld) 1.8 % Normal [facility] Comment on above: Performed By: #### Doretha MARION [facility], #### [facility] ([id number]) [address] [place] [address] 47991 Erythrocyte distribution width (RBC) [Ratio] 18.4 % High 11.5-15.0 [facility] Comment on above: Performed By: #### Doretha MARION [facility], #### [facility] ([id number]) [address] [place] [address] 10611 Hematocrit (Bld) [Volume fraction] 35.8 % Normal 35-47 [facility] Comment on above: Performed By: #### Doretha MARION [facility], #### [facility] ([id number]) [address] [place] [address] 86652 Hemoglobin (Bld) [Mass/Vol] 11.7 g/dL Normal 11.7-15.5 [facility] Comment on above: Performed By: #### Doretha MARION [facility], #### [facility] ([id number]) [address] [place] [address] 07020 Lymphocytes (Bld) [#/Vol] 2.2 10*3/uL Normal 1.0-3.5 [facility] Comment on above: Performed By: #### Doretha MARION CMP, #### [facility] ([id number]) [address] [place] [address] 03096 Lymphocytes/100 WBC (Bld) 20.7 % Normal [facility] Comment on above: Performed By: #### C OPAL MARION, #### [facility] ([id number]) [address] [place] [address] 13088 MCH (RBC) [Entitic mass] 26.2 pg Low 27-34 [facility] Comment on above: Performed By: #### Doretha MARION CMP, #### [facility] ([id number]) [address] [place] [address] 38759 MCHC (RBC) [Mass/Vol] 32.8 g/dL Normal 32-36 [facility] Comment on above: Performed By: #### Doretha MARION CMP, #### [facility] ([id number]) [address] [place] [address] 93737 MCV (RBC) [Entitic vol] 80 fL Normal 80-100 [facility] Comment on above: Performed By: #### Doretha MARION CMP, #### [facility] ([id number]) [address] [place] [address] 13910 Monocytes (Bld) [#/Vol] 0.5 10*3/uL Normal 0-0.9 [facility] Comment on above: Performed By: #### Doretha MARION CMP, #### [facility] ([id number]) [address] [place] [address] 65376 Monocytes/100 WBC (Bld) 5.2 % Normal [facility] Comment on above: Performed By: #### Doretha MARION CMP, #### [facility] ([id number]) [address] [place] [address] 25615 Neutrophils/100 WBC (Bld) 71.6 % Normal [facility] Comment on above: Performed By: #### Doretha MARION CMP, #### [facility] ([id number]) [address] [place] [address] 59974 Platelet mean volume (Bld) [Entitic vol] 8.3 fL Normal 7-12 [facility] Comment on above: Performed By: #### C SANAM CMP, #### [facility] ([id number]) [address] [place] [address] 24860 Platelets (Bld) [#/Vol] 337 10*3/uL Normal 150-450 [facility] Comment on above: Performed By: #### Doretha MARION CMP, #### [facility] ([id number]) [address] [place] [address] 83829 RBC COUNT 4.48 X10E12/L Normal 3.80-5.20 [facility] Comment on above: Performed By: #### Doretha MARION CMP, #### [facility] ([id number]) [address] [place] [address] 19968 WBC (Bld) [#/Vol] 10.6 10*3/uL Normal 4.0-11.0 [facility] Comment on above: Performed By: #### Doretha MARION CMP, #### [facility] ([id number]) [address] [place] [address] 83076 COMPREHENSIVE METABOLIC PANE Shaji 03-30-2023 Albumin [Mass/Vol] 4.4 g/dL Normal 3.2-5.3 [facility] Comment on above: Performed By: #### C SANAM CMP, #### [facility] ([id number]) [address] [place] [address] 85417 ALP [Catalytic activity/Vol] 40 U/L Normal 39-130 [facility] Comment on above: Performed By: #### Doretha MARION CMP, #### [facility] ([id number]) [address] [place] [address] 32801 ALT [Catalytic activity/Vol] 12 U/L Normal 0-31 [facility] Comment on above: Performed By: #### C BCA, CMP, #### [facility] ([id number]) [address] [place] [address] 81014 Anion gap [Moles/Vol] 8 mmol/L Normal 5-15 [facility] Comment on above: Performed By: #### C BCA, CMP, #### [facility] ([id number]) [address] [place] [address] 99841 AST [Catalytic activity/Vol] 16 U/L Normal 0-41 [facility] Comment on above: Performed By: #### C BCA, CMP, #### [facility] ([id number]) [address] [place] [address] 68055 Bilirubin [Mass/Vol] 0.5 mg/dL Normal 0.3-1.2 [facility] Comment on above: Performed By: #### C BCA, CMP, #### [facility] ([id number]) [address] [place] [address] 20037 Calcium [Mass/Vol] 9.2 mg/dL Normal 8.5-10.5 [facility] Comment on above: Performed By: #### C BCA, CMP, #### [facility] ([id number]) [address] [place] [address] 67084 Chloride [Moles/Vol] 105 mmol/L Normal 98-109 [facility] Comment on above: Performed By: #### C BCA, CMP, #### [facility] ([id number]) [address] [place] [address] 01940 CO2 [Moles/Vol] 24 mmol/L Normal 22-32 [facility] Comment on above: Performed By: #### C OPAL MARION, 15678-3 #### [facility] ([id number]) [address] [place] [address] 57398 Creatinine [Mass/Vol] 0.74 mg/dL Normal 0.40-1.00 [facility] Comment on above: Result Comment: METH OD TRACEABLE TO IDMS STANDARD Performed By: #### C OPAL MARION, #### [facility] ([id number]) [address] [place] [address] 22662 eGFR (CKD-EPI) NON-RACE DEPENDENT >90 Normal >59 [facility] Comment on above: Result Comment: Reported eGFR is based on the CKD-EPI 2020 equation that does not use a race coefficient. Performed By: #### C OPAL MARION, #### [facility] ([id number]) [address] [place] [address] 48695 Glucose [Mass/Vol] 89 mg/dL Normal 65-99 [facility] Comment on above: Performed By: #### C OPAL MARION, #### [facility] ([id number]) [address] [place] [address] 20723 Potassium [Moles/Vol] 3.7 mmol/L Normal 3.5-5.0 [facility] Comment on above: Performed By: #### C OPAL MARION, #### [facility] ([id number]) [address] [place] [address] 50273 Protein [Mass/Vol] 7.4 g/dL Normal 6.0-8.0 [facility] Comment on above: Performed By: #### C OPAL MARION, #### [facility] ([id number]) [address] [place] [address] 59428 Sodium [Moles/Vol] 137 mmol/L Normal 134-146 [facility] Comment on above: Performed By: #### C BCA, CMP, 53031-0 #### [facility] ([id number]) [address] [place] [address] 24493 Urea nitrogen [Mass/Vol] 10 mg/dL Normal 5-23 [facility] Comment on above: Performed By: #### C BCA, CMP, 69754-6 #### [facility] ([id number]) [address] [place] [address] 37413 HCG ( test) Ql (U)o n 03-30-2023 Beta HCG ( test) Ql (U) Positive Abnormal NEG [facility] Comment on above: Performed By: #### 2 106-3 #### [facility] ([id number]) [address] [place] [address] 41369 HCG.beta subunit IA 3rd IS Q non 03-30-2023 HCG.beta subunit Qn 80 m[IU]/mL Normal [facility] Comment on above: Result Comment: NEW [...] Performed By: #### C BCA, CMP, #### [facility] ([id number]) [address] [place] [address] 79982 URINE CULTUREon 03-30-2023 Bacteria identified Cx Nom (U) CULTURE RESULTS 10-50,000 ORGANISMS/mL NORMAL UROGENITAL YOGESH Normal [facility] Comment on above: Performed By: #### 6 30-4 #### [facility] ([id number]) [address] [place] [address], [address] [place] [address] URN MACROSCOPIC NURon 2023 BILIRUBIN YARI Negative Normal NEG [facility] Comment on above: Performed By: #### N UM #### [facility] ([id number]) [address] [place] [address] [place] [address] BLOOD/HGB YARI Negative Normal NEG [facility] Comment on above: Performed By: #### N UM #### [facility] ([id number]) [address] [place] [address] [place] [address] GLUCOSE YARI Negative Normal NEG [facility] Comment on above: Performed By: #### N UM #### [facility] ([id number]) [address] [place] [address], [place] [address] KETONES YARI Negative Normal NEG [facility] Comment on above: Performed By: #### N UM #### [facility] ([id number]) [address] [place] [address], [place] [address] LEUKOCYTE ESTERASE YARI Negative Normal NEG Pr [facility] Comment on above: Performed By: #### N UM #### [facility] ([id number]) [address] [place] [address] [place] [address] NITRITE YARI Negative Normal NEG [facility] Comment on above: Performed By: #### N UM #### [facility] ([id number]) [address] [place] [address] [place] [address] PH YARI 6.0 Normal 5.0-8.5 [facility] Comment on above: Performed By: #### N UM #### [facility] ([id number]) [address] [place] [address] PROTEIN YARI Negative Normal NEG [facility] Comment on above: Performed By: #### N UM #### [facility] ([id number]) [address] [place] [address] SPECIFIC GRAVITY YARI >=1.030 Normal 1.003-1.035 [facility] Comment on above: Performed By: #### N UM #### [facility] ([id number]) [address] [place] [address] UROBILINOGEN YARI 0.2 eu/dL Normal <1.1 [facility] Comment on above: Performed By: #### N UM #### [facility] ([id number]) [address] [place] [address] 70053 US PREG LESS THAN 14 WKS WIT [...] Eckert MD on 03/30/2023 8:48 PM Normal [facility] Cholesterol [Mass/volume] in Serum or PlasmaOrdered By: Dar Nation on 11-28-2022 Cholesterol [Mass/Vol] 200 mg/dL 140-200 [facility] Comment on above: Chol less than 200 m g/dl low riskChol 201-239 mg/dl borderline riskChol 240 mg/dl and greater high risk Cholesterol in LDL Calc [Mas s/Vol]Ordered By: Dar Nation on 11-28-2022 Cholesterol in LDL [Mass/Vol] 75 mg/dL 0-100 [facility] Comment on above: LDL ATP III CLASSIFI CATIONLDL less than 100 mg/dL OptimalLDL 100-129 mg/dL Near or above optimalLDL 130-159 mg/dL Borderline highLDL 160-189 mg/dL HighLDL greater than 189 mg/dL Very high Cholesterol in VLDL Calc [Ma ss/Vol]Ordered By: Dar Nation on 11-28-2022 Cholesterol in VLDL [Mass/Vol] 16 mg/dL [facility] Lipid Panelon 11-28-2022 Cholesterol [Mass/Vol] 200 mg/dL Normal 140-200 [facility] Comment on above: Result Comment: Chol less than 200 mg/dl low risk Chol 201-239 mg/dl borderline risk Chol 240 mg/dl and greater high risk Performed By: #### H S TROP, CMP, ETOH, CBC, TSH3 #### [facility] [address] [place] [address] [place] Cholesterol in HDL [Mass/Vol] 109 mg/dL High 23-92 [facility] Comment on above: Result Comment: HDL CHOL ATP-III CLASSIFICATION Cardiovascular Risk HDL > or equal to 60 mg/dL LOW HDL < 40 mg/dL HIGH Performed By: #### H S TROP, CMP, ETOH, CBC, TSH3 #### [facility] [address] [place] [address] [place] Cholesterol.total/Sarah sterol in HDL [Mass ratio] 1.8 {ratio} Normal <5.0 [facility] Comment on above: Performed By: #### H S TROP, CMP, ETOH, CBC, TSH3 #### [facility] [address] [place] [address] [place] LDL Cholesterol,Calculated 75 mg/dL Normal 0-100 [facility] Comment on above: Result Comment: LDL ATP III CLASSIFICATION LDL less than 100 mg/dL Optimal LDL 100-129 mg/dL Near or above optimal LDL 130-159 mg/dL Borderline high LDL 160-189 mg/dL High LDL greater than 189 mg/dL Very high Performed By: #### H S TROP, CMP, ETOH, CBC, TSH3 #### [facility] [address] Triglyceride w/Reflex 80 mg/dL Normal 0-149 [facility] Comment on above: Result Comment: TRIG ATP III CLASSIFICATION TRIG less than 150 mg/dL Normal TRIG 150-199 mg/dL Borderline high TRIG 200-500 mg/dL High TRIG greater than 500 mg/dL Very high Standard traceable to the Center for Disease Conrtrol and Prevention (CDC) test method. Performed By: #### H S TROP, CMP, ETOH, CBC, TSH3 #### [facility] [address] VLDL CHOLESTEROL 16 mg/dL Normal [facility] Comment on above: Performed By: #### H S TROP, CMP, ETOH, CBC, TSH3 #### [facility] [address] Serum or plasma high density lipoprotein (HDL) cholesterol measurementOrdered By: Dar Nation on 11-28-2022 Cholesterol in HDL [Mass/Vol] 109 mg/dL 23-92 [facility] Comment on above: HDL CHOL ATP-III CLA SSIFICATION Cardiovascular RiskHDL > or equal to 60 mg/dL LOWHDL < 40 mg/dL HIGH Serum or plasma total choles terol/high density lipoprotein (HDL) cholesterol mass ratOrdered By: Dar Nation on 11-28-2022 Cholesterol.total/Sarah sterol in HDL [Mass ratio] 1.8 {ratio} <5.0 [facility] Thyroid Stim Hormone w/Rflxo n 11-28-2022 Thyroid Stim Hormone w/Rflx 1.79 u[iU]/mL Normal 0.45-5.33 [facility] Comment on above: Performed By: #### H S TROP, CMP, ETOH, CBC, TSH3 #### [facility] [address] Thyrotropin [Units/volume] i n Serum or PlasmaOrdered By: Dar Nation on 11-28-2022 TSH Qn 1.79 m[IU]/L 0.45-5.33 [facility] Triglyceride [Mass/volume] i n Serum or PlasmaOrdered By: Dar Natino on 11-28-2022 Triglyceride [Mass/Vol] 80 mg/dL 0-149 [facility] Comment on above: TRIG ATP III CLASSIF ICATIONTRIG less than 150 mg/dL NormalTRIG 150-199 mg/dL Borderline highTRIG 200-500 mg/dL High TRIG greater than 500 mg/dL Very highStandard traceable to the Center for Disease Conrtrol and Prevention (CDC) test method. Vitamin D 25 Hydroxy Totalon 11-28-2022 Vitamin D 25 Hydroxy Total 32.8 ng/mL Normal 30-100 [facility] Comment on above: Result Comment: JESSICA MIN D STATUS 25(OH)VITAMIN D RANGE (ng/mL) Deficient <20 Insufficient 20 to <30 Sufficient 30 to 100 Reference: Aye Palacios, Geremias YOUNG, et al. Evaluation,treatment, and prevention of vitamin D deficiency; an Endocrine Society clinical practice guideline. JCEM. 2010; 96(7):1911-30. PERFORMED BY: [place] [address] PATHOLOGIST [employer]EE[employer] SUPERVISOR KELLIE ALVARADO M.D. Performed By: #### H S TROP, CMP, ETOH, CBC, TSH3 #### [address] Vitamin D+Metabolites [Mass/ volume] in Serum or PlasmaOrdered By: Dar Nation on 11-28-2022 Vitamin D+Metabolites [Mass/Vol] 32.8 ng/mL 30-100 [facility] Comment on above: VITAMIN D STATUS 25( OH)VITAMIN D RANGE (ng/mL) Deficient <20 Insufficient 20 to <30Sufficient 30 to 100Reference: Aye Palacios, Geremias YOUNG, et al. Evaluation,treatment, and prevention of vitamin D deficiency; an Endocrine Society clinical practice guideline. JCEM. 2010; 96(7):1911-30. Alanine aminotransferase [En zymatic activity/volume] in Serum or PlasmaOrdered By: Sara Tripathi on 11-27-2022 ALT [Catalytic activity/Vol] 19 U/L 7-52 [facility] Albumin [Mass/volume] in Ser um or Plasma by Bromocresol green (BCG) dye binding methoOrdered By: Sara Tripathi on 11-27-2022 Albumin BCG dye [Mass/Vol] 4.2 g/dL 3.5-5.7 [facility] Alkaline phosphatase [Enzyma tic activity/volume] in Serum or PlasmaOrdered By: Sara Tripathi on 11-27-2022 ALP [Catalytic activity/Vol] 56 U/L 34-104 [facility] Amphetamine Screen Ql (U)Ord ered By: Sara Tripathi on 11-27-2022 Amphetamines Ql (U) Negative Negative [facility] Aspartate aminotransferase [ Enzymatic activity/volume] in Serum or PlasmaOrdered By: Sraa Tripathi on 11-27-2022 AST [Catalytic activity/Vol] 31 U/L 13-39 [facility] Automated erythrocytes count in urine sediment (number/area)Ordered By: Sara Tripathi on 11-27-2022 RBC Auto (Urine sed) [#/Area] 5-9 [HPF] 0-4 [facility] Automated leukocytes count i n urine sediment (number/area)Ordered By: Sara Tripathi on 11-27-2022 WBC Auto (Urine sed) [#/Area] 50-100 [HPF] 0-4 [facility] Automated urine hyaline cast s count (number/volume)Ordered By: Sara Tripathi on 11-27-2022 Hyaline casts Auto (U) [#/Vol] None seen [LPF] 0-1 [facility] Barbiturates [Presence] in U rine by Screen methodOrdered By: Sara Tripathi on 11-27-2022 Barbiturates Screen Ql (U) Negative Negative [facility] Basophils Auto (Bld) [#/Vol] Ordered By: Sara Tripathi on 11-27-2022 Basophils (Bld) [#/Vol] 0.2 10*3/uL 0.0-0.2 [facility] Basophils/100 WBC Auto (Bld) Ordered By: Sara Tripathi on 11-27-2022 Basophils/100 WBC (Bld) 3.0 % . [facility] Benzodiazepines Screen Ql (U )Ordered By: Sara Tripathi on 11-27-2022 Benzodiazepines Ql (U) Negative Negative [facility] Benzoylecgonine [Presence] i n Urine by Screen methodOrdered By: Sara Tripathi on 11-27-2022 Benzoylecgonine Screen Ql (U) Negative Negative [facility] Bilirubin Test strip Ql (U)O rdered By: Sara Tripathi on 11-27-2022 Bilirubin Ql (U) Negative Negative [facility] Bilirubin.total [Mass/volume ] in Serum or PlasmaOrdered By: Sara Tripathi on 11-27-2022 Bilirubin [Mass/Vol] 0.7 mg/dL 0.3-1.[address] [facility] [address] abdomen pelvis wo conon 1 CT abdomen pelvis wo con [facility] [place] [address] CT Scan Report Signed Patient: Antoinette Recio MR#: [id number] : 1995 Acct:[id number] Age/Sex: 27 / F ADM Date: 11/27/22 Loc: ER Room: Type: [facility] ER Attending Dr: Copies to: Sara Tripathi [...] Vipul Rucker M.D.11/27/2022 11:17 AM Dictation Location: [place] [address] Transcribed By: [facility] 11/27/22 111 Dictated By: Vipul Rucker II, MD 11/27/22 111 Signed By: 11/27/22 111 Normal [facility] Calcium [Mass/volume] in Ser um or PlasmaOrdered By: Sara Tripathi on 11-27-2022 Calcium [Mass/Vol] 9.4 mg/dL 8.6-10.3 [facility] Cannabinoids [Presence] in U rine by Screen methodOrdered By: Sara Tripathi on 11-27-2022 Cannabinoids Screen Ql (U) Positive Negative [facility] Comment on above: These are unconfirme d results and should not be used for legal purposes. Drug Cut-Off Concentration: AMPH 1000 ng/mL CARMELLA 200 ng/mL GERMAN 200 ng/mL COCM 300 ng/mL OP 300 ng/mL PCP 25 ng/mL THC 20 ng/mL Carbon dioxide, total [Moles /volume] in Serum or PlasmaOrdered By: Sara Tripathi on 11-27-2022 CO2 [Moles/Vol] 24.9 mmol/L 21.0-31.0 [facility] Casts typing in urine sedime nt by light microscopyOrdered By: Sara Tripathi on 11-27-2022 Casts LM Nom (Urine sed) None seen [LPF] None Seen [facility] Chloride [Moles/volume] in S phil or PlasmaOrdered By: Sara Tripathi on 11-27-2022 Chloride [Moles/Vol] 101 mmol/L 98-107 [facility] Coarse granular casts count in urine sediment by microscopy low power field (number/aOrdered By: Sara Tripathi on 11-27-2022 Coarse Granular Casts LM.LPF (Urine sed) [#/Area] 0-1 [LPF] 0-1 [facility] Color Auto (U)Ordered By: Donna Tripathi on 11-27-2022 Color (U) Dark yellow Yellow [facility] Complete Blood Count Auto Di ffon 11-27-2022 Basophils (Bld) [#/Vol] 0.2 10*3/uL Normal 0.0-0.2 [facility] Comment on above: Result Comment: PERF ORMED BY: [place] [address] PATHOLOGIST [employer]SKEEPER SUPERVISOR KELLIE ALVARADO M.D. Performed By: #### H S TROP, CMP, ETOH, CBC, TSH3 #### [facility] [address] [place] [address] Basophils/100 WBC (Bld) 3.0 % Normal . [facility] Comment on above: Performed By: #### H S TROP, CMP, ETOH, CBC, TSH3 #### [facility] [address] [place] [address] Eosinophils (Bld) [#/Vol] 0.1 10*3/uL Normal 0.0-0.45 [facility] Comment on above: Performed By: #### H S TROP, CMP, ETOH, CBC, TSH3 #### [address] Eosinophils/100 WBC (Bld) 1.1 % Normal . [facility] Comment on above: Performed By: #### H S TROP, CMP, ETOH, CBC, TSH3 #### [facility] [address] [place] [address] Erythrocyte distribution width (RBC) [Ratio] 15.9 % High 11.9-15.3 [facility] Comment on above: Performed By: #### H S TROP, CMP, ETOH, CBC, TSH3 #### [facility] [address] [place] [address] Hematocrit (Bld) [Volume fraction] 38.0 % Normal 34.0-46.4 [facility] Comment on above: Performed By: #### H S TROP, CMP, ETOH, CBC, TSH3 #### [address] Hemoglobin (Bld) [Mass/Vol] 12.5 g/dL Normal 11.8-15.4 [facility] Comment on above: Performed By: #### H S TROP, CMP, ETOH, CBC, TSH3 #### [address] Lymphocytes (Bld) [#/Vol] 0.8 10*3/uL Low 1.00-4.8 [facility] Comment on above: Performed By: #### H S TROP, CMP, ETOH, CBC, TSH3 #### [address] Lymphocytes/100 WBC (Bld) 11.3 % Normal . [facility] Comment on above: Performed By: #### H S TROP, CMP, ETOH, CBC, TSH3 #### [address] MCH (RBC) [Entitic mass] 28.8 pg Normal 24.7-34.3 [facility] Comment on above: Performed By: #### H S TROP, CMP, ETOH, CBC, TSH3 #### [address] MCV (RBC) [Entitic vol] 87.5 fL Normal 80-100 [facility] Comment on above: Performed By: #### H S TROP, CMP, ETOH, CBC, TSH3 #### [address] Mean Corpuscular HGB Conc 33.0 g/dL Normal 32.0-35.0 [facility] Comment on above: Performed By: #### H S TROP, CMP, ETOH, CBC, TSH3 #### [address] Monocytes (Bld) [#/Vol] 0.6 10*3/uL Normal 0.0-0.8 [facility] Comment on above: Performed By: #### H S TROP, CMP, ETOH, CBC, TSH3 #### [address] Monocytes/100 WBC (Bld) 17.41 % Normal 0.00-20.00 [facility] Comment on above: Performed By: #### H S TROP, CMP, ETOH, CBC, TSH3 #### [address] Monocytes/100 WBC (Bld) 8.9 % Normal . [facility] Comment on above: Performed By: #### H S TROP, CMP, ETOH, CBC, TSH3 #### [address] Neutrophils (Bld) [#/Vol] 5.1 10*3/uL Normal 1.8-7.7 [facility] Comment on above: Performed By: #### H S TROP, CMP, ETOH, CBC, TSH3 #### [address] Neutrophils/100 WBC (Bld) 75.7 % Normal . [facility] Comment on above: Performed By: #### H S TROP, CMP, ETOH, CBC, TSH3 #### [address] NRBC% 0.0 /100{WBC} Normal 0-0.5 [facility] Comment on above: Performed By: #### H S TROP, CMP, ETOH, CBC, TSH3 #### [address] Platelet mean volume (Bld) [Entitic vol] 7.1 fL Normal 6.3-10.7 [facility] Comment on above: Performed By: #### H S TROP, CMP, ETOH, CBC, TSH3 #### [address] Platelets (Bld) [#/Vol] 402 10*3/uL Normal 150-450 [facility] Comment on above: Performed By: #### H S TROP, CMP, ETOH, CBC, TSH3 #### [address] RBC (Bld) [#/Vol] 4.34 10*6/uL Normal 3.60-5.00 [facility] Comment on above: Performed By: #### H S TROP, CMP, ETOH, CBC, TSH3 #### [address] WBC (Bld) [#/Vol] 6.7 10*3/uL Normal 3.8-11.6 [facility] Comment on above: Performed By: #### H S TROP, CMP, ETOH, CBC, TSH3 #### [address] Comprehensive Metabolic Pane shaji 11-27-2022 Albumin [Mass/Vol] 4.2 g/dL Normal 3.5-5.7 [facility] Comment on above: Performed By: #### H S TROP, CMP, ETOH, CBC, TSH3 #### [address] Albumin/Globulin [Mass ratio] 1.4 {ratio} Normal [facility] Comment on above: Performed By: #### H S TROP, CMP, ETOH, CBC, TSH3 #### [address] ALP [Catalytic activity/Vol] 56 U/L Normal 34-104 [facility] Comment on above: Performed By: #### H S TROP, CMP, ETOH, CBC, TSH3 #### [address] ALT [Catalytic activity/Vol] 19 U/L Normal 7-52 [facility] Comment on above: Performed By: #### H S TROP, CMP, ETOH, CBC, TSH3 #### [address] Anion gap [Moles/Vol] 15.4 mmol/L High 6.0-15.0 [facility] Comment on above: Performed By: #### H S TROP, CMP, ETOH, CBC, TSH3 #### [facility] [address] AST [Catalytic activity/Vol] 31 U/L Normal 13-39 [facility] Comment on above: Performed By: #### H S TROP, CMP, ETOH, CBC, TSH3 #### [facility] [address] Bilirubin [Mass/Vol] 0.7 mg/dL Normal 0.3-1.0 [facility] Comment on above: Performed By: #### H S TROP, CMP, ETOH, CBC, TSH3 #### [facility] [address] Calcium [Mass/Vol] 9.4 mg/dL Normal 8.6-10.3 [facility] Comment on above: Performed By: #### H S TROP, CMP, ETOH, CBC, TSH3 #### [facility] [address] Chloride [Moles/Vol] 101 mmol/L Normal 98-107 [facility] Comment on above: Performed By: #### H S TROP, CMP, ETOH, CBC, TSH3 #### [address] CO2 [Moles/Vol] 24.9 mmol/L Normal 21.0-31.0 [facility] Comment on above: Performed By: #### H S TROP, CMP, ETOH, CBC, TSH3 #### [facility] [address] [place] [address] [place] Creatinine [Mass/Vol] 0.83 mg/dL Normal 0.60-1.20 [facility] Comment on above: Performed By: #### H S TROP, CMP, ETOH, CBC, TSH3 #### [facility] [address] [place] [address] [place] Creatinine Clr Calc Pharmacy 110.58 Normal [facility] Comment on above: Performed By: #### H S TROP, CMP, ETOH, CBC, TSH3 #### [facility] [address] [place] [address] [place] GFR/1.73 sq M.predicted MDRD (S/P/Bld) [Vol rate/Area] mL/min/{1.73_m2} Normal [facility] Comment on above: Performed By: #### H S TROP, CMP, ETOH, CBC, TSH3 #### [facility] [address] Globulin (S) [Mass/Vol] 2.9 g/dL Normal [facility] Comment on above: Performed By: #### H S TROP, CMP, ETOH, CBC, TSH3 #### [facility] [address] Glucose [Mass/Vol] 82 mg/dL Normal 70-100 [facility] Comment on above: Result Comment: [facility] Glucose Reference Range is dependent on time and content of last meal. Glucose of more than 200 mg/dL in a nonstressed, ambulatory subject supports the diagnosis of Diabetes Mellitus. ADA recommended reference range Performed By: #### H S TROP, CMP, ETOH, CBC, TSH3 #### [facility] [address] Potassium [Moles/Vol] 3.3 mmol/L Low 3.5-5.1 [facility] Comment on above: Performed By: #### H S TROP, CMP, ETOH, CBC, TSH3 #### [address] Protein [Mass/Vol] 7.1 g/dL Normal 6.4-8.9 [facility] Comment on above: Performed By: #### H S TROP, CMP, ETOH, CBC, TSH3 #### [facility] [address] [place] [address] [place] Sodium [Moles/Vol] 138 mmol/L Normal 136-145 [facility] Comment on above: Performed By: #### H S TROP, CMP, ETOH, CBC, TSH3 #### [facility] [address] Urea nitrogen [Mass/Vol] 9 mg/dL Normal 7-25 [facility] Comment on above: Performed By: #### H S TROP, CMP, ETOH, CBC, TSH3 #### [facility] [address] [place] [address] Creatinine [Mass/volume] in Serum or PlasmaOrdered By: Sara Tripathi on 11-27-2022 Creatinine [Mass/Vol] 0.83 mg/dL 0.60-1.20 [facility] Dipstick and Microscopicon 1 Appearance (U) Turbid Critically abnormal Clear [facility] Comment on above: Order Comment: Name Collection Type:: Clean-Voided Midstream Performed By: #### H S TROP, CMP, ETOH, CBC, TSH3 #### [facility] [address] [place] [address] Bacteria,Urine 4+ High None Seen [facility] Comment on above: Order Comment: Name Collection Type:: Clean-Voided Midstream Performed By: #### H S TROP, CMP, ETOH, CBC, TSH3 #### [facility] [address] [place] [address] Bilirubin,Urine Negative Normal Negative [facility] Comment on above: Order Comment: Name Collection Type:: Clean-Voided Midstream Performed By: #### H S TROP, CMP, ETOH, CBC, TSH3 #### [facility] [address] [place] [address] Coarse Granular Casts,Urine 0-1 Normal 0-1 [facility] Comment on above: Order Comment: Name Collection Type:: Clean-Voided Midstream Performed By: #### H S TROP, CMP, ETOH, CBC, TSH3 #### [facility] [address] [place] [address] Color (U) Dark Yellow Critically abnormal Yellow [facility] Comment on above: Order Comment: Name Collection Type:: Clean-Voided Midstream Performed By: #### H S TROP, CMP, ETOH, CBC, TSH3 #### [facility] [address] [place] [address] Fine Granular Casts,Urine 0-1 Normal 0-1 [facility] Comment on above: Order Comment: Name Collection Type:: Clean-Voided Midstream Performed By: #### H S TROP, CMP, ETOH, CBC, TSH3 #### [facility] [address] [place] [address] Glucose Ql (U) Normal Normal Normal [facility] Comment on above: Order Comment: Name Collection Type:: Clean-Voided Midstream Performed By: #### H S TROP, CMP, ETOH, CBC, TSH3 #### [address] Hyaline Casts,Urine None Seen Normal 0-1 [facility] Comment on above: Order Comment: Name Collection Type:: Clean-Voided Midstream Performed By: #### H S TROP, CMP, ETOH, CBC, TSH3 #### [address] Ketones Ql (U) Negative Normal Negative [facility] Comment on above: Order Comment: Name Collection Type:: Clean-Voided Midstream Performed By: #### H S TROP, CMP, ETOH, CBC, TSH3 #### [address] Leukocyte esterase Test strip Ql (U) 2+ High Negative [facility] Comment on above: Order Comment: Name Collection Type:: Clean-Voided Midstream Performed By: #### H S TROP, CMP, ETOH, CBC, TSH3 #### [address] Nitrite,Urine Negative Normal Negative [facility] Comment on above: Order Comment: Name Collection Type:: Clean-Voided Midstream Performed By: #### H S TROP, CMP, ETOH, CBC, TSH3 #### [address] Occult Blood,Urine 1+ High Negative [facility] Comment on above: Order Comment: Name Collection Type:: Clean-Voided Midstream Performed By: #### H S TROP, CMP, ETOH, CBC, TSH3 #### [address] Other Casts,Urine None Seen Normal None Seen [facility] Comment on above: Order Comment: Name Collection Type:: Clean-Voided Midstream Performed By: #### H S TROP, CMP, ETOH, CBC, TSH3 #### [address] pH (U) 5.0 [pH] Normal 5.0-9.0 [facility] Comment on above: Order Comment: Name Collection Type:: Clean-Voided Midstream Performed By: #### H S TROP, CMP, ETOH, CBC, TSH3 #### [address] Protein,Urine Trace High Negative [facility] Comment on above: Order Comment: Name Collection Type:: Clean-Voided Midstream Performed By: #### H S TROP, CMP, ETOH, CBC, TSH3 #### [address] RBC,Urine 5-9 High 0-4 [facility] Comment on above: Order Comment: Name Collection Type:: Clean-Voided Midstream Performed By: #### H S TROP, CMP, ETOH, CBC, TSH3 #### [address] Specificy [place],Urine 1.023 Normal 1.001-1.030 [facility] Comment on above: Order Comment: Name Collection Type:: Clean-Voided Midstream Performed By: #### H S TROP, CMP, ETOH, CBC, TSH3 #### [address] Squamous Epithelial Cell,Urine 20-30 High 0-2 [facility] Comment on above: Order Comment: Name Collection Type:: Clean-Voided Midstream Performed By: #### H S TROP, CMP, ETOH, CBC, TSH3 #### [address] Urobilinogen,Urine Normal Normal Normal [facility] Comment on above: Order Comment: Name Collection Type:: Clean-Voided Midstream Performed By: #### H S TROP, CMP, ETOH, CBC, TSH3 #### [address] WBC,Urine 50-100 High 0-4 [facility] Comment on above: Order Comment: Name Collection Type:: Clean-Voided Midstream Performed By: #### H S TROP, CMP, ETOH, CBC, TSH3 #### [address] Drug Screen,Urineon 11-28-19 23 Amphetamine Screen,Urine Negative Normal Negative [facility] Comment on above: Performed By: #### H S TROP, CMP, ETOH, CBC, TSH3 #### [address] Barbiturate Screen,Urine Negative Normal Negative [facility] Comment on above: Performed By: #### H S TROP, CMP, ETOH, CBC, TSH3 #### [address] Benzodiazepines Screen,Urine Negative Normal Negative [facility] Comment on above: Performed By: #### H S TROP, CMP, ETOH, CBC, TSH3 #### [address] Cannabinoid Screen,Urine Positive High Negative [facility] Comment on above: Result Comment: Thes e are unconfirmed results and should not be used for legal purposes. Drug Cut-Off Concentration: AMPH 1000 ng/mL CARMELLA 200 ng/mL GERMAN 200 ng/mL COCM 300 ng/mL OP 300 ng/mL PCP 25 ng/mL THC 20 ng/mL PERFORMED BY: [place] [address] PATHOLOGIST [employer]EN[employer]EEPER SUPERVISOR KELLIE ALVARADO M.D. Performed By: #### H S TROP, CMP, ETOH, CBC, TSH3 #### [address] Cocaine Screen,Urine Negative Normal Negative [facility] Comment on above: Performed By: #### H S TROP, CMP, ETOH, CBC, TSH3 #### [address] Opiate Screen,Urine Negative Normal Negative [facility] Comment on above: Performed By: #### H S TROP, CMP, ETOH, CBC, TSH3 #### [address] Phencyclidine Screen,Urine Negative Normal Negative [facility] Comment on above: Performed By: #### H S TROP, CMP, ETOH, CBC, TSH3 #### [facility] [address] ECG 12 lead ECGon 11-27-2022 ECG 12 lead ECG [facility] [place] [address] [place] [address] Electrocardiograph Report Signed Patient: Antoinette Recio MR#: [id number] : 1995 Acct:[id number] Age/Sex: 27 / F ADM Date: 11/27/22 Loc: ER Room: Type: [facility] ER Attending Dr: Ordering Provider: Sara Tripathi [...] By Sara Tripathi MD 11/27/22 1505 Normal [facility] Eosinophils Auto (Bld) [#/Vo l]Ordered By: Sara Tripathi on 11-27-2022 Eosinophils (Bld) [#/Vol] 0.1 10*3/uL 0.0-0.45 [facility] Eosinophils/100 WBC Auto (Bl d)Ordered By: Sara Tripathi on 11-27-2022 Eosinophils/100 WBC (Bld) 1.1 % . [facility] Erythrocyte distribution wid th Auto (RBC) [Ratio]Ordered By: Sara Tripathi on 11-27-2022 Erythrocyte distribution width (RBC) [Ratio] 15.9 % 11.9-15.3 [facility] Ethanol [Mass/volume] in Ser um or PlasmaOrdered By: Sara Tripathi on 11-27-2022 Ethanol [Mass/Vol] 26 mg/dL [facility] Ethanol [Mass/Vol] 0.026 % [facility] Ethyl Alcohol Profileon 11-09 Ethanol [Mass/Vol] 26 mg/dL Normal [facility] Comment on above: Performed By: #### H S TROP, CMP, ETOH, CBC, TSH3 #### [facility] [address] [place] [address] [place] Percent Ethanol 0.026 % Normal [facility] Comment on above: Result Comment: PERF ORMED BY: [place] [address] PATHOLOGIST [employer]SKEEPER SUPERVISOR KELLIE ALVARADO M.D. Performed By: #### H S TROP, CMP, ETOH, CBC, TSH3 #### [facility] [address] Fine granular cast count in urine sediment by microscopy (number/low power field )Ordered By: Sara Tripathi on 11-27-2022 Fine Granular Casts LM.LPF (Urine sed) [#/Area] 0-1 [LPF] 0-1 [facility] Globulin Calc (S) [Mass/Vol] Ordered By: Sara Tripathi on 11-27-2022 Globulin (S) [Mass/Vol] 2.9 g/dL [facility] Glucose [Mass/volume] in Ser um or PlasmaOrdered By: Sara Tripathi on 11-27-2022 Glucose [Mass/Vol] 82 mg/dL 70-100 [facility] Comment on above: ADA recommended refe rence rangeRandom Glucose Reference Range is dependent on time and content of last meal. Glucose of more than 200 mg/dL in a nonstressed, ambulatory subject supports the diagnosis of Diabetes Mellitus. HCG ( test) Fany dotson Ql (U)Ordered By: Sara Tripathi on 11-27-2022 HCG ( test) Ql (U) Negative [facility] HCG,Urineon 11-27-2022 Beta HCG ( test) Ql (U) Negative Normal [facility] Comment on above: Order Comment: Name Collection Type:: Clean-Voided Midstream Result Comment: PERF ORMED BY: [facility] [address] [place] [address] PATHOLOGIST [employer]ENSKEEPER SUPERVISOR KELLIE ALVARADO M.D. Performed By: #### H S TROP, CMP, ETOH, CBC, TSH3 #### [facility] [address] Hematocrit Auto (Bld) [Volum e fraction]Ordered By: Sara Tripathi on 11-27-2022 Hematocrit (Bld) [Volume fraction] 38.0 % 34.0-46.4 [facility] [facility] Hem[facility] [Mass/volume] in BloodOrdered By: Sara Tripathi on 11-27-2022 Hemoglobin (Bld) [Mass/Vol] 12.5 g/dL 11.8-15.4 [facility] Ketones Auto test strip (U) [Mass/Vol]Ordered By: Sara Tripathi on 11-27-2022 Ketones (U) [Mass/Vol] Negative Negative [facility] Leukocytes [#/volume] correc christelle for nucleated erythrocytes in Blood by Automated counOrdered By: Sara Tripathi on 11-27-2022 WBC corrected for nucl RBC Auto (Bld) [#/Vol] 6.7 10*3/uL 3.8-11.6 [facility] Lymphocytes Auto (Bld) [#/Vo l]Ordered By: Sara Tripathi on 11-27-2022 Lymphocytes (Bld) [#/Vol] 0.8 10*3/uL 1.00-4.8 [facility] Lymphocytes/100 WBC Auto (Bl d)Ordered By: Sara Tripathi on 11-27-2022 Lymphocytes/100 WBC (Bld) 11.3 % . [facility] MCH Auto (RBC) [Entitic mass ]Ordered By: Sara Tripathi on 11-27-2022 MCH (RBC) [Entitic mass] 28.8 pg 24.7-34.3 [facility] MCHC Auto (RBC) [Mass/Vol]Or dered By: Sara Tripathi on 11-27-2022 MCHC (RBC) [Mass/Vol] 33.0 g/dL 32.0-35.0 [facility] MCV Auto (RBC) [Entitic vol] Ordered By: Sara Tripathi on 11-27-2022 MCV (RBC) [Entitic vol] 87.5 fL 80-100 [facility] Monocyte distribution width [Entitic volume] in Blood by AutomatedOrdered By: Sara Tripathi on 11-27-2022 Monocyte distribution width Auto (Bld) [Entitic vol] 17.41 % 0.00-20.00 [facility] Monocytes Auto (Bld) [#/Vol] Ordered By: Sara Tripathi on 11-27-2022 Monocytes (Bld) [#/Vol] 0.6 10*3/uL 0.0-0.8 [facility] Monocytes/100 WBC Auto (Bld) Ordered By: Sara Tripathi on 11-27-2022 Monocytes/100 WBC (Bld) 8.9 % . [facility] Neutrophils Auto (Bld) [#/Vo l]Ordered By: Sara Tripathi on 11-27-2022 Neutrophils (Bld) [#/Vol] 5.1 10*3/uL 1.8-7.7 [facility] Neutrophils/100 WBC Auto (Bl d)Ordered By: Sara Tripathi on 11-27-2022 Neutrophils/100 WBC (Bld) 75.7 % . [facility] Nitrite Test strip Ql (U)Ord ered By: Sara Tripathi on 11-27-2022 Nitrite Ql (U) Negative Negative [facility] No Panel InformationOrdered By: Sara Tripathi on 11-27-2022 Estimated GFR (CKD-EPI) > 60.0 mL/Min [facility] Creatinine Clearance (Chem 110.58 [facility] Nucleated erythrocytes [Pres ence] in Blood by Automated countOrdered By: Sara Tripathi on 11-27-2022 Nucleated RBC Auto Ql (Bld) 0.0 /100{WBC} 0-0.5 [facility] Opiates [Presence] in Urine by Screen methodOrdered By: Sara Tripathi on 11-27-2022 Opiates Screen Ql (U) Negative Negative [facility] Phencyclidine Screen Ql (U)O rdered By: Sara Tripathi on 11-27-2022 Phencyclidine Ql (U) Negative Negative [facility] Platelet mean volume Auto (B ld) [Entitic vol]Ordered By: Sara Tripathi on 11-27-2022 Platelet mean volume (Bld) [Entitic vol] 7.1 fL 6.3-10.7 [facility] Platelets Auto (Bld) [#/Vol] Ordered By: Sara Tripathi on 11-27-2022 Platelets (Bld) [#/Vol] 402 10*3/uL 150-450 [facility] Potassium [Moles/volume] in Serum or PlasmaOrdered By: Sara Tripathi on 11-27-2022 Potassium [Moles/Vol] 3.3 mmol/L 3.5-5.1 [facility] Protein Auto test strip (U) [Mass/Vol]Ordered By: Sara Tripathi on 11-27-2022 Protein (U) [Mass/Vol] Trace mg/dL Negative [facility] Protein [Mass/volume] in Ser um or PlasmaOrdered By: Sara Tripathi on 11-27-2022 Protein [Mass/Vol] 7.1 g/dL 6.4-8.9 [facility] RBC Auto (Bld) [#/Vol]Ordere d By: Sara Tripathi on 11-27-2022 RBC (Bld) [#/Vol] 4.34 10*6/uL 3.60-5.00 [facility] Serum or plasma albumin/glob ulin mass ratioOrdered By: Sara Tripathi on 11-27-2022 Albumin/Globulin [Mass ratio] 1.4 {ratio} [facility] Serum or plasma anion gap de terminationOrdered By: Sara Tripathi on 11-27-2022 Anion gap [Moles/Vol] 15.4 mmol/L 6.0-15.0 [facility] Sodium [Moles/volume] in Ser um or PlasmaOrdered By: Sara Tripathi on 11-27-2022 Sodium [Moles/Vol] 138 mmol/L 136-145 [facility] Specific gravity Auto test s trip (U) [Rel density]Ordered By: Sara Tripathi on 11-27-2022 Specific gravity (U) [Rel density] 1.023 1.001-1.030 [facility] Squamous epithelial cells de tection in urine sediment by light microscopyOrdered By: Sara Tripathi on 11-27-2022 Epithelial cells.squamous LM Ql (Urine sed) 20-30 [HPF] 0-2 [facility] Thyroid Stimulating Hormoneo n 11-27-2022 TSH Qn 2.35 m[IU]/L Normal 0.45-5.33 [facility] Comment on above: Result Comment: PERF ORMED BY: [place] [address] PATHOLOGIST [employer]PERVISOR KELLIE ALVARADO M.D. Performed By: #### H S TROP, CMP, ETOH, CBC, TSH3 #### [facility] [address] [place], [place] [id number] [facility] Thyrotropin [Units/volume] i n Serum or PlasmaOrdered By: Sara Tripathi on 11-27-2022 TSH Qn 2.35 m[IU]/L 0.45-5.33 [facility] Troponin I High Sensitivityo n 11-27-2022 Troponin I High Sensitivity 3.2 pg/mL Normal 0.0-15.0 [facility] Comment on above: Result Comment: PERF ORMED BY: [place] [address] PATHOLOGIST [employer]SKEEPER SUPERVISOR KELLIE ALVARADO M.D. Performed By: #### H S TROP, CMP, ETOH, CBC, TSH3 #### [facility] [address] [place] [address] Troponin I.cardiac [Mass/vol ume] in Serum or Plasma by Detection limit <= 0.01 ng/Ordered By: Sara Tripathi on 11-27-2022 Troponin I.cardiac DL <= 0.01 ng/mL [Mass/Vol] 3.2 pg/mL 0.0-15.0 [facility] Urea nitrogen [Mass/volume] in Serum or PlasmaOrdered By: Sara Tripathi on 11-27-2022 Urea nitrogen [Mass/Vol] 9 mg/dL 7 [facility] Urine Cultureon 11-27-2022 Bacteria identified Cx Nom (U) ORGANISM: Escherichia coli (O:ESCCOL) [place] Count >100,000 Aerobic GLENDA Charge (NMIC56) --- [...] RESISTANT TO ALL B-LACTAM DRUGS. PERFORMED BY: [place] [address] PATHOLOGIST [employer]ENSKEEPER SUPERVISOR KELLIE ALVARADO M.D. Normal [facility] Comment on above: Performed By: #### H S TROP, CMP, ETOH, CBC, TSH3 #### [facility] [address] [place] [address] [place] Urine bacteria detection by automated methodOrdered By: Sara Tripathi on 11-27-2022 Bacteria Auto Ql (U) 4+ None Seen [facility] Urine clarity by refractomet ry automatedOrdered By: Sara Tripathi on 11-27-2022 Clarity Refractometry automated (U) Turbid Clear [facility] Urine culture routineOrdered By: Sara Tripathi on 11-27-2022 Bacteria identified Cx Nom (U) Escherichia coli [facility] Urine glucose measurement by automated test strip (mass/volume)Ordered By: Sara Tripathi on 11-27-2022 Glucose Auto test strip (U) [Mass/Vol] Normal mg/dL Normal [facility] Urine hemoglobin detection b y automated test stripOrdered By: Sara Tripathi on 11-27-2022 Hemoglobin Auto test strip Ql (U) 1+ Negative [facility] Urine leukocyte esterase det ection by automated test stripOrdered By: Sara Tripathi on 11-27-2022 Leukocyte esterase Auto test strip Ql (U) 2+ Negative [facility] Urobilinogen Auto test strip (U) [Mass/Vol]Ordered By: Sara Tripathi on 11-27-2022 Urobilinogen (U) [Mass/Vol] Normal mg/dL Normal [facility] WBC Auto (Bld) [#/Vol]Ordere d By: Sara Tripathi on 11-27-2022 WBC (Bld) [#/Vol] 6.7 10*3/uL 3.8-11.6 [facility] XR chest 1V portableon 11-27 XR chest 1V portable [facility] [place] [address] XRay Report Signed Patient: Antoinette Recio MR#: [id number] : 1995 Acct:[id number] Age/Sex: 27 / F ADM Date: 11/27/22 Loc: ER Room: Type: [facility] ER Attending Dr: Copies to: Sara Tripathi [...] Vipul Rucker M.D.11/27/2022 11:05 AM Dictation Location: [place] [address] Transcribed By: [facility] 11/27/22 1100 Dictated By: Vipul Rucker II, MD 11/27/22 1104 Signed By: 11/27/22 1105 Normal [facility] pH Auto test strip (U)Ordere d By: Sara Tripathi on 11-27-2022 pH (U) 5.0 [pH] 5.0-9.0 [facility] Alanine aminotransferase [En zymatic activity/volume] in Serum or PlasmaOrdered By: Ji Smith on 05-11-2022 ALT [Catalytic activity/Vol] 27 U/L 7-52 [facility] Albumin [Mass/volume] in Ser um or Plasma by Bromocresol green (BCG) dye binding methoOrdered By: Ji Smith on 05-11-2022 Albumin BCG dye [Mass/Vol] 4.5 g/dL 3.5-5.7 [facility] Alkaline phosphatase [Enzyma tic activity/volume] in Serum or PlasmaOrdered By: Ji Smith on 05-11-2022 ALP [Catalytic activity/Vol] 51 U/L 34-104 [facility] Aspartate aminotransferase [ Enzymatic activity/volume] in Serum or PlasmaOrdered By: Ji Smith on 05-11-2022 AST [Catalytic activity/Vol] 33 U/L 13-39 [facility] Bilirubin.total [Mass/volume ] in Serum or PlasmaOrdered By: Ji Smith on 05-11-2022 Bilirubin [Mass/Vol] 0.7 mg/dL 0.3-1.0 [facility] Calcium [Mass/volume] in Ser um or PlasmaOrdered By: Ji Smith on 05-11-2022 Calcium [Mass/Vol] 9.7 mg/dL 8.6-10.3 [facility] Carbon dioxide, total [Moles /volume] in Serum or PlasmaOrdered By: Ji Smith on 05-11-2022 CO2 [Moles/Vol] 25.8 mmol/L 21.0-31.0 [facility] Chloride [Moles/volume] in S phil or PlasmaOrdered By: Ji Smith on 05-11-2022 Chloride [Moles/Vol] 102 mmol/L 98-107 [facility] Comprehensive Metabolic Pane shaji 05-11-2022 Albumin [Mass/Vol] 4.5 g/dL Normal 3.5-5.7 [facility] Comment on above: Performed By: #### H S TROP, CMP, ETOH, CBC, TSH3 #### [facility] [address] Albumin/Globulin [Mass ratio] 1.7 {ratio} Normal [facility] Comment on above: Performed By: #### H S TROP, CMP, ETOH, CBC, TSH3 #### [address] ALP [Catalytic activity/Vol] 51 U/L Normal 34-104 [facility] Comment on above: Performed By: #### H S TROP, CMP, ETOH, CBC, TSH3 #### [address] ALT [Catalytic activity/Vol] 27 U/L Normal 7-52 [facility] Comment on above: Performed By: #### H S TROP, CMP, ETOH, CBC, TSH3 #### [address] Anion gap [Moles/Vol] 13.8 mmol/L Normal 6.0-15.0 [facility] Comment on above: Performed By: #### H S TROP, CMP, ETOH, CBC, TSH3 #### [address] AST [Catalytic activity/Vol] 33 U/L Normal 13-39 [facility] Comment on above: Performed By: #### H S TROP, CMP, ETOH, CBC, TSH3 #### [facility] [address] [place] [address] Bilirubin [Mass/Vol] 0.7 mg/dL Normal 0.3-1.0 [facility] Comment on above: Performed By: #### H S TROP, CMP, ETOH, CBC, TSH3 #### [place] [address] [place] Calcium [Mass/Vol] 9.7 mg/dL Normal 8.6-10.3 [facility] Comment on above: Performed By: #### H S TROP, CMP, ETOH, CBC, TSH3 #### [facility] [address] Chloride [Moles/Vol] 102 mmol/L Normal 98-107 [facility] Comment on above: Performed By: #### H S TROP, CMP, ETOH, CBC, TSH3 #### [facility] [address] CO2 [Moles/Vol] 25.8 mmol/L Normal 21.0-31.0 [facility] Comment on above: Performed By: #### H S TROP, CMP, ETOH, CBC, TSH3 #### [address] Creatinine [Mass/Vol] 0.68 mg/dL Normal 0.60-1.20 [facility] Comment on above: Performed By: #### H S TROP, CMP, ETOH, CBC, TSH3 #### [address] Creatinine Clr Calc Pharmacy 129.74 [facility] Comment on above: Result Comment: PERF ORMED BY: [place] [address] PATHOLOGIST [employer]EEPER SUPERVISOR KELLIE ALVARADO M.D. Performed By: #### H S TROP, CMP, ETOH, CBC, TSH3 #### [address] GFR/1.73 sq M.predicted MDRD (S/P/Bld) [Vol rate/Area] mL/min/{1.73_m2} [facility] Comment on above: Performed By: #### H S TROP, CMP, ETOH, CBC, TSH3 #### [facility] [address] Globulin (S) [Mass/Vol] 2.7 g/dL Normal [facility] Comment on above: Performed By: #### H S TROP, CMP, ETOH, CBC, TSH3 #### [facility] [address] [place] [address] [place] Glucose [Mass/Vol] 93 mg/dL Normal 70-100 [facility] Comment on above: Result Comment: [place] Glucose Reference Range is dependent on time and content of last meal. Glucose of more than 200 mg/dL in a nonstressed, ambulatory subject supports the diagnosis of Diabetes Mellitus. ADA recommended reference range Performed By: #### H S TROP, CMP, ETOH, CBC, TSH3 #### [facility] [address] Potassium [Moles/Vol] 3.6 mmol/L Normal 3.5-5.1 [facility] Comment on above: Performed By: #### H S TROP, CMP, ETOH, CBC, TSH3 #### [facility] [address] Protein [Mass/Vol] 7.2 g/dL Normal 6.4-8.9 [facility] Comment on above: Performed By: #### H S TROP, CMP, ETOH, CBC, TSH3 #### [facility] [address] [place] [address] [place] Sodium [Moles/Vol] 138 mmol/L Normal 136-145 [facility] Comment on above: Performed By: #### H S TROP, CMP, ETOH, CBC, TSH3 #### [facility] [address] [place] [address] [place] Urea nitrogen [Mass/Vol] 11 mg/dL Normal 7-25 [facility] Comment on above: Performed By: #### H S TROP, CMP, ETOH, CBC, TSH3 #### [facility] [address] [place] [address] [place] Creatinine [Mass/volume] in Serum or PlasmaOrdered By: Ji Smith on 05-11-2022 Creatinine [Mass/Vol] 0.68 mg/dL 0.60-1.20 [facility] Globulin Calc (S) [Mass/Vol] Ordered By: Ji Smith on 05-11-2022 Globulin (S) [Mass/Vol] 2.7 g/dL [facility] Glucose [Mass/volume] in Ser um or PlasmaOrdered By: Ji Smith on 05-11-2022 Glucose [Mass/Vol] 93 mg/dL 70-100 [facility] Comment on above: ADA recommended refe rence rangeRandom Glucose Reference Range is dependent on time and content of last meal. Glucose of more than 200 mg/dL in a nonstressed, ambulatory subject supports the diagnosis of Diabetes Mellitus. No Panel InformationOrdered By: Ji Smith on 05-11-2022 Estimated GFR (CKD-EPI) > 60.0 mL/Min [facility] Creatinine Clearance (Chem 129.74 [facility] Potassium [Moles/volume] in Serum or PlasmaOrdered By: Ji Smith on 05-11-2022 Potassium [Moles/Vol] 3.6 mmol/L 3.5-5.1 [facility] Protein [Mass/volume] in Ser um or PlasmaOrdered By: Ji Smith on 05-11-2022 Protein [Mass/Vol] 7.2 g/dL 6.4-8.9 [facility] Serum or plasma albumin/glob ulin mass ratioOrdered By: Ji Smith on 05-11-2022 Albumin/Globulin [Mass ratio] 1.7 {ratio} [facility] Serum or plasma anion gap de terminationOrdered By: Ji Smith on 05-11-2022 Anion gap [Moles/Vol] 13.8 mmol/L 6.0-15.0 [facility] Sodium [Moles/volume] in Ser um or PlasmaOrdered By: Ji Smith on 05-11-2022 Sodium [Moles/Vol] 138 mmol/L 136-145 [facility] Urea nitrogen [Mass/volume] in Serum or PlasmaOrdered By: Ji Smith on 05-11-2022 Urea nitrogen [Mass/Vol] 11 mg/dL 7-25 [facility] Acetaminophenon 05-09-2022 Acetaminophen [Mass/Vol] 1.1 ug/mL Low 10.0-30.0 [facility] Comment on above: Result Comment: PERF ORMED BY: [place] [address] PATHOLOGIST [employer]EEPER SUPERVISOR KELLIE ALVARADO M.D. Performed By: #### A CET, JAMIE #### [address] Acetaminophen [Mass/volume] in Serum or PlasmaOrdered By: Henry Hernandez on 05-09-2022 Acetaminophen [Mass/Vol] 1.1 ug/mL 10.0-30.0 [facility] Alanine aminotransferase [En zymatic activity/volume] in Serum or PlasmaOrdered By: Henry Hernandez on 05-09-2022 ALT [Catalytic activity/Vol] 40 U/L 7-52 [facility] Albumin [Mass/volume] in Ser um or Plasma by Bromocresol green (BCG) dye binding methoOrdered By: Henry Hernandez on 05-09-2022 Albumin BCG dye [Mass/Vol] 5.0 g/dL 3.5-5.7 [facility] Alkaline phosphatase [Enzyma tic activity/volume] in Serum or PlasmaOrdered By: Henry Hernandez on 05-09-2022 ALP [Catalytic activity/Vol] 61 U/L 34-104 [facility] Amphetamine Screen Ql (U)Ord ered By: Henry Hernandez on 05-09-2022 Amphetamines Ql (U) Negative Negative [facility] Aspartate aminotransferase [ Enzymatic activity/volume] in Serum or PlasmaOrdered By: Henry Hernandez on 05-09-2022 AST [Catalytic activity/Vol] 71 U/L 13-39 [facility] Automated epithelial cells c ount in urine sediment (number/area)Ordered By: Henry Hernandez on 05-09-2022 Epithelial cells Auto (Urine sed) [#/Area] 0-1 [HPF] 0-2 [facility] Automated erythrocytes count in urine sediment (number/area)Ordered By: Henry Hernandez on 05-09-2022 RBC Auto (Urine sed) [#/Area] 3-4 [HPF] 0-4 [facility] Automated leukocytes count i n urine sediment (number/area)Ordered By: Henry Hernandez on 05-09-2022 WBC Auto (Urine sed) [#/Area] 0-1 [HPF] 0-4 [facility] Barbiturates [Presence] in U rine by Screen methodOrdered By: Henry Hernandez on 05-09-2022 Barbiturates Screen Ql (U) Negative Negative [facility] Basophils Auto (Bld) [#/Vol] Ordered By: Henry Hernandez on 05-09-2022 Basophils (Bld) [#/Vol] 0.1 10*3/uL 0.0-0.2 [facility] Basophils/100 WBC Auto (Bld) Ordered By: Henry Hernandez on 05-09-2022 Basophils/100 WBC (Bld) 0.9 % . [facility] Benzodiazepines Screen Ql (U )Ordered By: Henry Hernandez on 05-09-2022 Benzodiazepines Ql (U) Negative Negative [facility] Benzoylecgonine [Presence] i n Urine by Screen methodOrdered By: Henry Hernandez on 05-09-2022 Benzoylecgonine Screen Ql (U) Negative Negative [facility] Bilirubin Test strip Ql (U)O rdered By: Henry Hernandez on 05-09-2022 Bilirubin Ql (U) Negative Negative [facility] Bilirubin.total [Mass/volume ] in Serum or PlasmaOrdered By: Henry Hernandez on 05-09-2022 Bilirubin [Mass/Vol] 0.4 mg/dL 0.3-1.0 [facility] Calcium [Mass/volume] in Ser um or PlasmaOrdered By: Henry Hernandez on 05-09-2022 Calcium [Mass/Vol] 9.4 mg/dL 8.6-10.3 [facility] Cannabinoids [Presence] in U rine by Screen methodOrdered By: Henry Hernandez on 05-09-2022 Cannabinoids Screen Ql (U) Positive Negative [facility] Comment on above: These are unconfirme d results and should not be used for legal purposes. Drug Cut-Off Concentration: AMPH 1000 ng/mL CARMELLA 200 ng/mL GERMAN 200 ng/mL COCM 300 ng/mL OP 300 ng/mL PCP 25 ng/mL THC 20 ng/mL Carbon dioxide, total [Moles /volume] in Serum or PlasmaOrdered By: Henry Hernandez on 05-09-2022 CO2 [Moles/Vol] 24.5 mmol/L 21.0-31.0 [facility] Chloride [Moles/volume] in S phil or PlasmaOrdered By: Henry Hernandez on 05-09-2022 Chloride [Moles/Vol] 102 mmol/L 98-107 [facility] Cholesterol [Mass/volume] in Serum or PlasmaOrdered By: Ji Smith on 05-09-2022 Cholesterol [Mass/Vol] 336 mg/dL 140-200 [facility] Comment on above: Chol less than 200 m g/dl low riskChol 201-239 mg/dl borderline riskChol 240 mg/dl and greater high risk Cholesterol in LDL Calc [Mas s/Vol]Ordered By: Ji Smith on 05-09-2022 Cholesterol in LDL [Mass/Vol] 133 mg/dL 0-100 [facility] Comment on above: LDL ATP III CLASSIFI CATIONLDL less than 100 mg/dL OptimalLDL 100-129 mg/dL Near or above optimalLDL 130-159 mg/dL Borderline highLDL 160-189 mg/dL HighLDL greater than 189 mg/dL Very high Cholesterol in VLDL Calc [Ma ss/Vol]Ordered By: Ji Smith on 05-09-2022 Cholesterol in VLDL [Mass/Vol] 21 mg/dL [facility] Color Auto (U)Ordered By: Valerie Hernandez on 05-09-2022 Color (U) Yellow Yellow [facility] Complete Blood Count Auto Di ffon 05-09-2022 Basophils (Bld) [#/Vol] 0.1 10*3/uL Normal 0.0-0.2 [facility] Comment on above: Result Comment: PERF ORMED BY: [facility] [address] [place] [address] PATHOLOGIST [employer]EN[employer]EEPER SUPERVISOR KELLIE ALVARADO M.D. Performed By: #### H S TROP, CMP, ETOH, CBC, TSH3 #### [address] Basophils/100 WBC (Bld) 0.9 % Normal . [facility] Comment on above: Performed By: #### H S TROP, CMP, ETOH, CBC, TSH3 #### [address] Eosinophils (Bld) [#/Vol] 0.1 10*3/uL Normal 0.0-0.45 [facility] Comment on above: Performed By: #### H S TROP, CMP, ETOH, CBC, TSH3 #### [address] Eosinophils/100 WBC (Bld) 1.3 % Normal . [facility] Comment on above: Performed By: #### H S TROP, CMP, ETOH, CBC, TSH3 #### [address] Erythrocyte distribution width (RBC) [Ratio] 17.8 % High 11.9-15.3 [facility] Comment on above: Performed By: #### H S TROP, CMP, ETOH, CBC, TSH3 #### [address] Hematocrit (Bld) [Volume fraction] 40.2 % Normal 34.0-46.4 [facility] Comment on above: Performed By: #### H S TROP, CMP, ETOH, CBC, TSH3 #### [address] Hemoglobin (Bld) [Mass/Vol] 13.1 g/dL Normal 11.8-15.4 [facility] Comment on above: Performed By: #### H S TROP, CMP, ETOH, CBC, TSH3 #### [address] Lymphocytes (Bld) [#/Vol] 1.4 10*3/uL Normal 1.00-4.8 [facility] Comment on above: Performed By: #### H S TROP, CMP, ETOH, CBC, TSH3 #### [address] Lymphocytes/100 WBC (Bld) 22.7 % Normal . [facility] Comment on above: Performed By: #### H S TROP, CMP, ETOH, CBC, TSH3 #### [address] MCH (RBC) [Entitic mass] 29.4 pg Normal 24.7-34.3 [facility] Comment on above: Performed By: #### H S TROP, CMP, ETOH, CBC, TSH3 #### [address] MCV (RBC) [Entitic vol] 90.0 fL Normal 80-100 [facility] Comment on above: Performed By: #### H S TROP, CMP, ETOH, CBC, TSH3 #### [address] Mean Corpuscular HGB Conc 32.7 g/dL Normal 32.0-35.0 [facility] Comment on above: Performed By: #### H S TROP, CMP, ETOH, CBC, TSH3 #### [address] Monocytes (Bld) [#/Vol] 0.4 10*3/uL Normal 0.0-0.8 [facility] Comment on above: Performed By: #### H S TROP, CMP, ETOH, CBC, TSH3 #### [address] Monocytes/100 WBC (Bld) 15.97 % Normal 0.00-20.00 [facility] Comment on above: Performed By: #### H S TROP, CMP, ETOH, CBC, TSH3 #### [address] Monocytes/100 WBC (Bld) 6.5 % Normal . [facility] Comment on above: Performed By: #### H S TROP, CMP, ETOH, CBC, TSH3 #### [address] Neutrophils (Bld) [#/Vol] 4.3 10*3/uL Normal 1.8-7.7 [facility] Comment on above: Performed By: #### H S TROP, CMP, ETOH, CBC, TSH3 #### [address] Neutrophils/100 WBC (Bld) 68.6 % Normal . [facility] Comment on above: Performed By: #### H S TROP, CMP, ETOH, CBC, TSH3 #### [address] NRBC% 0.0 /100{WBC} Normal 0-0.5 [facility] Comment on above: Performed By: #### H S TROP, CMP, ETOH, CBC, TSH3 #### [address] Platelet mean volume (Bld) [Entitic vol] 6.7 fL Normal 6.3-10.7 [facility] Comment on above: Performed By: #### H S TROP, CMP, ETOH, CBC, TSH3 #### [place] [address] [place] Platelets (Bld) [#/Vol] 330 10*3/uL Normal 150-450 [facility] Comment on above: Performed By: #### H S TROP, CMP, ETOH, CBC, TSH3 #### [place] [address] [place] RBC (Bld) [#/Vol] 4.46 10*6/uL Normal 3.60-5.00 [facility] Comment on above: Performed By: #### H S TROP, CMP, ETOH, CBC, TSH3 #### [place] [address] [place] WBC (Bld) [#/Vol] 6.3 10*3/uL Normal 3.8-11.6 [facility] Comment on above: Performed By: #### H S TROP, CMP, ETOH, CBC, TSH3 #### [address] [place] [address] [place] Comprehensive Metabolic Pane shaji 05-09-2022 Albumin [Mass/Vol] 5.0 g/dL Normal 3.5-5.7 [facility] Comment on above: Performed By: #### H S TROP, CMP, ETOH, CBC, TSH3 #### [address] Albumin/Globulin [Mass ratio] 1.8 {ratio} Normal [facility] Comment on above: Performed By: #### H S TROP, CMP, ETOH, CBC, TSH3 #### [address] ALP [Catalytic activity/Vol] 61 U/L Normal 34-104 [facility] Comment on above: Performed By: #### H S TROP, CMP, ETOH, CBC, TSH3 #### [address] ALT [Catalytic activity/Vol] 40 U/L Normal 7-52 [facility] Comment on above: Performed By: #### H S TROP, CMP, ETOH, CBC, TSH3 #### [address] Anion gap [Moles/Vol] 18.4 mmol/L High 6.0-15.0 [facility] Comment on above: Performed By: #### H S TROP, CMP, ETOH, CBC, TSH3 #### [address] AST [Catalytic activity/Vol] 71 U/L High 13-39 [facility] Comment on above: Performed By: #### H S TROP, CMP, ETOH, CBC, TSH3 #### [place] [address] [place] Bilirubin [Mass/Vol] 0.4 mg/dL Normal 0.3-1.0 [facility] Comment on above: Performed By: #### H S TROP, CMP, ETOH, CBC, TSH3 #### [address] Calcium [Mass/Vol] 9.4 mg/dL Normal 8.6-10.3 [facility] Comment on above: Performed By: #### H S TROP, CMP, ETOH, CBC, TSH3 #### [facility] [address] Chloride [Moles/Vol] 102 mmol/L Normal 98-107 [facility] Comment on above: Performed By: #### H S TROP, CMP, ETOH, CBC, TSH3 #### [facility] [address] CO2 [Moles/Vol] 24.5 mmol/L Normal 21.0-31.0 [facility] Comment on above: Performed By: #### H S TROP, CMP, ETOH, CBC, TSH3 #### [address] Creatinine [Mass/Vol] 0.76 mg/dL Normal 0.60-1.20 [facility] Comment on above: Performed By: #### H S TROP, CMP, ETOH, CBC, TSH3 #### [address] Creatinine Clr Calc Pharmacy 114.17 Normal [facility] Comment on above: Result Comment: PERF ORMED BY: [place] [address] PATHOLOGIST GREENSKEEPER SUPERVISOR KELLIE ALVARADO M.D. Performed By: #### H S TROP, CMP, ETOH, CBC, TSH3 #### [address] GFR/1.73 sq M.predicted MDRD (S/P/Bld) [Vol rate/Area] mL/min/{1.73_m2} [facility] Comment on above: Performed By: #### H S TROP, CMP, ETOH, CBC, TSH3 #### [address] Globulin (S) [Mass/Vol] 2.8 g/dL Normal [facility] Comment on above: Performed By: #### H S TROP, CMP, ETOH, CBC, TSH3 #### [facility] [address] [place] [address] [place] Glucose [Mass/Vol] 85 mg/dL Normal 70-100 [facility] Comment on above: Result Comment: [facility] Glucose Reference Range is dependent on time and content of last meal. Glucose of more than 200 mg/dL in a nonstressed, ambulatory subject supports the diagnosis of Diabetes Mellitus. ADA recommended reference range Performed By: #### H S TROP, CMP, ETOH, CBC, TSH3 #### [facility] [address] Potassium [Moles/Vol] 3.9 mmol/L Normal 3.5-5.1 [facility] Comment on above: Performed By: #### H S TROP, CMP, ETOH, CBC, TSH3 #### [facility] [address] Protein [Mass/Vol] 7.8 g/dL Normal 6.4-8.9 [facility] Comment on above: Performed By: #### H S TROP, CMP, ETOH, CBC, TSH3 #### [facility] [address] [place] [address] [place] Sodium [Moles/Vol] 141 mmol/L Normal 136-145 [facility] Comment on above: Performed By: #### H S TROP, CMP, ETOH, CBC, TSH3 #### [place] [address] [place] Urea nitrogen [Mass/Vol] 11 mg/dL Normal 7-25 [facility] Comment on above: Performed By: #### H S TROP, CMP, ETOH, CBC, TSH3 #### [facility] [address] [place] [address] [place] Creatinine [Mass/volume] in Serum or PlasmaOrdered By: Henry Hernandez on 05-09-2022 Creatinine [Mass/Vol] 0.76 mg/dL 0.60-1.20 [facility] Dipstick and Microscopicon 0 05-09-2022 Appearance (U) Clear Normal Clear [facility] Comment on above: Order Comment: Name Collection Type:: Clean-Voided Midstream Performed By: #### H S TROP, CMP, ETOH, CBC, TSH3 #### [facility] [address] [place] [address] [place] Bacteria,Urine None Seen Normal None Seen [facility] Comment on above: Order Comment: Name Collection Type:: Clean-Voided Midstream Performed By: #### H S TROP, CMP, ETOH, CBC, TSH3 #### [facility] [address] [place] [address] [place] Bilirubin,Urine Negative Normal Negative [facility] Comment on above: Order Comment: Name Collection Type:: Clean-Voided Midstream Performed By: #### H S TROP, CMP, ETOH, CBC, TSH3 #### [facility] [address] [place] [address] Color (U) Yellow Normal Yellow [facility] Comment on above: Order Comment: Name Collection Type:: Clean-Voided Midstream Performed By: #### H S TROP, CMP, ETOH, CBC, TSH3 #### [facility] [address] [place] [address] [place] Glucose Ql (U) Normal Normal Normal [facility] Comment on above: Order Comment: Name Collection Type:: Clean-Voided Midstream Performed By: #### H S TROP, CMP, ETOH, CBC, TSH3 #### [facility] [address] [place] [address] [place] Ketones Ql (U) Trace High Negative [facility] Comment on above: Order Comment: Name Collection Type:: Clean-Voided Midstream Performed By: #### H S TROP, CMP, ETOH, CBC, TSH3 #### [facility] [address] [place] [address] [place] Leukocyte esterase Test strip Ql (U) 1+ High Negative [facility] Comment on above: Order Comment: Name Collection Type:: Clean-Voided Midstream Performed By: #### H S TROP, CMP, ETOH, CBC, TSH3 #### [facility] [address] [place] [address] [place] Nitrite,Urine Negative Normal Negative [facility] Comment on above: Order Comment: Name Collection Type:: Clean-Voided Midstream Performed By: #### H S TROP, CMP, ETOH, CBC, TSH3 #### [address] Occult Blood,Urine 1+ High Negative [facility] Comment on above: Order Comment: Name Collection Type:: Clean-Voided Midstream Performed By: #### H S TROP, CMP, ETOH, CBC, TSH3 #### [address] pH (U) 5.5 [pH] Normal 5.0-9.0 [facility] Comment on above: Order Comment: Name Collection Type:: Clean-Voided Midstream Performed By: #### H S TROP, CMP, ETOH, CBC, TSH3 #### [address] Protein (U) [Mass/Vol] 30 mg/dL High Negative [facility] Comment on above: Order Comment: Name Collection Type:: Clean-Voided Midstream Performed By: #### H S TROP, CMP, ETOH, CBC, TSH3 #### [address] RBC,Urine 3-4 Normal 0-4 [facility] Comment on above: Order Comment: Name Collection Type:: Clean-Voided Midstream Performed By: #### H S TROP, CMP, ETOH, CBC, TSH3 #### [address] Specificy [place],Urine 1.013 Normal 1.001-1.030 [facility] Comment on above: Order Comment: Name Collection Type:: Clean-Voided Midstream Performed By: #### H S TROP, CMP, ETOH, CBC, TSH3 #### [address] Squamous Epithelial Cell,Urine 0-1 Normal 0-2 [facility] Comment on above: Order Comment: Name Collection Type:: Clean-Voided Midstream Performed By: #### H S TROP, CMP, ETOH, CBC, TSH3 #### [address] Urobilinogen,Urine Normal Normal Normal [facility] Comment on above: Order Comment: Name Collection Type:: Clean-Voided Midstream Performed By: #### H S TROP, CMP, ETOH, CBC, TSH3 #### [address] WBC LM.HPF (Urine sed) [#/Area] 0 /[HPF] Normal 0-4 [facility] Comment on above: Order Comment: Name Collection Type:: Clean-Voided Midstream Performed By: #### H S TROP, CMP, ETOH, CBC, TSH3 #### [address] Drug Screen,Urineon 05-10-19 Amphetamine Screen,Urine Negative Normal Negative [facility] Comment on above: Performed By: #### U HCG, URDS, ADDONUAPLUS #### [address] Barbiturate Screen,Urine Negative Normal Negative [facility] Comment on above: Performed By: #### U HCG, URDS, ADDONUAPLUS #### [address] Benzodiazepines Screen,Urine Negative Normal Negative [facility] Comment on above: Performed By: #### U HCG, URDS, ADDONUAPLUS #### [address] Cannabinoid Screen,Urine Positive High Negative [facility] Comment on above: Result Comment: Thes e are unconfirmed results and should not be used for legal purposes. Drug Cut-Off Concentration: AMPH 1000 ng/mL CARMELLA 200 ng/mL GERMAN 200 ng/mL COCM 300 ng/mL OP 300 ng/mL PCP 25 ng/mL THC 20 ng/mL PERFORMED BY: [place] [address] PATHOLOGIST GREENSKEEPER SUPERVISOR KELLIE ALVARADO M.D. Performed By: #### U HCG, URDS, ADDONUAPLUS #### [address] Cocaine Screen,Urine Negative Normal Negative [facility] Comment on above: Performed By: #### U HCG, URDS, ADDONUAPLUS #### [facility] [address] Opiate Screen,Urine Negative Normal Negative [facility] Comment on above: Performed By: #### U HCG, URDS, ADDONUAPLUS #### [facility] [address] Phencyclidine Screen,Urine Negative Normal Negative [facility] Comment on above: Performed By: #### U HCG, URDS, ADDONUAPLUS #### [facility] [address] ECG 12 lead ECGon 05-09-2022 ECG 12 lead ECG [facility] [place] [address] [place] [address] Electrocardiograph Report Signed Patient: Antoinette Recio MR#: [id number] : 1995 Acct:[id number] Age/Sex: 27 / F ADM Date: 05/09/22 Loc: Room: [address] [place] [address] Type: ADM IN Attending Dr: Tiana Smith [...] sinus rhythm Confirmed by Henry Hernandez DO ([id number]) on 05/09/2022 4:07:02 AM Referred By: Electronically Signed By:Henry Hernandez DO Transcribed By: MUS Signed By Henry Hernandez DO [id number] [facility] Eosinophils Auto (Bld) [#/Vo l]Ordered By: Henry Hernandez on 05-09-2022 Eosinophils (Bld) [#/Vol] 0.1 10*3/uL 0.0-0.45 [facility] Eosinophils/100 WBC Auto (Bl d)Ordered By: Henry Hernandez on 05-09-2022 Eosinophils/100 WBC (Bld) 1.3 % . [facility] Erythrocyte distribution wid th Auto (RBC) [Ratio]Ordered By: Henry Hernandez on 05-09-2022 Erythrocyte distribution width (RBC) [Ratio] 17.8 % 11.9-15.3 [facility] Ethanol [Mass/volume] in Ser um or PlasmaOrdered By: Henry Hernandez on 05-09-2022 Ethanol [Mass/Vol] 302 mg/dL [facility] Ethanol [Mass/Vol] 0.302 % [facility] Ethyl Alcohol Profileon 04-11 Ethanol [Mass/Vol] 302 mg/dL Normal [facility] Comment on above: Performed By: #### H S TROP, CMP, ETOH, CBC, TSH3 #### [facility] [address] Percent Ethanol 0.302 % Normal [facility] Comment on above: Result Comment: PERF ORMED BY: [place] [address] PATHOLOGIST GREENSKEEPER SUPERVISOR KELLIE ALVARADO M.D. Performed By: #### H S TROP, CMP, ETOH, CBC, TSH3 #### [facility] [address] Globulin Calc (S) [Mass/Vol] Ordered By: Henry Hernandez on 05-09-2022 Globulin (S) [Mass/Vol] 2.8 g/dL [facility] Glucose [Mass/volume] in Ser um or PlasmaOrdered By: Henry Hernandez on 05-09-2022 Glucose [Mass/Vol] 85 mg/dL 70-100 [facility] Comment on above: ADA recommended refe rence rangeRandom Glucose Reference Range is dependent on time and content of last meal. Glucose of more than 200 mg/dL in a nonstressed, ambulatory subject supports the diagnosis of Diabetes Mellitus. HCG ( test) IA.rapi d Ql (U)Ordered By: Henry Hernandez on 05-09-2022 HCG ( test) Ql (U) Negative [facility] HCG,Urineon 05-09-2022 Beta HCG ( test) Ql (U) Negative Normal [facility] Comment on above: Order Comment: Name Collection Type:: Clean-Voided Midstream Result Comment: PERF ORMED BY: [place] [address] PATHOLOGIST GREENSKEEPER SUPERVISOR KELLIE ALVARADO M.D. Performed By: #### H S TROP, CMP, ETOH, CBC, TSH3 #### [facility] [address] [place] [id number] [facility] Hematocrit Auto (Bld) [Volum e fraction]Ordered By: Henry Hernandez on 05-09-2022 Hematocrit (Bld) [Volume fraction] 40.2 % 34.0-46.4 [facility] Hemoglobin [Mass/volume] in BloodOrdered By: Henry Hernandez on 05-09-2022 Hemoglobin (Bld) [Mass/Vol] 13.1 g/dL 11.8-15.4 [facility] Ketones Auto test strip (U) [Mass/Vol]Ordered By: Henry Hernandez on 05-09-2022 Ketones (U) [Mass/Vol] Trace Negative [facility] Leukocytes [#/volume] correc christelle for nucleated erythrocytes in Blood by Automated counOrdered By: Henry Hernandez on 05-09-2022 WBC corrected for nucl RBC Auto (Bld) [#/Vol] 6.3 10*3/uL 3.8-11.6 [facility] Lipid Panelon 05-09-2022 Cholesterol [Mass/Vol] 336 mg/dL High 140-200 [facility] Comment on above: Order Comment: FASTI NG Y Comment USE FROM ER PLEASE Result Comment: Chol less than 200 mg/dl low risk Chol 201-239 mg/dl borderline risk Chol 240 mg/dl and greater high risk Performed By: #### H S TROP, CMP, ETOH, CBC, TSH3 #### [facility] [address] [place] [address] [facility] Cholesterol in HDL [Mass/Vol] 182 mg/dL High 35-85 [facility] Comment on above: Order Comment: FASTI NG Y Comment USE FROM ER PLEASE Result Comment: HDL CHOL ATP-III CLASSIFICATION Cardiovascular Risk HDL > or equal to 60 mg/dL LOW HDL < 40 mg/dL HIGH Performed By: #### H S TROP, CMP, ETOH, CBC, TSH3 #### [facility] [address] Cholesterol.total/Sarah sterol in HDL [Mass ratio] 1.8 {ratio} Normal <5.0 [facility] Comment on above: Order Comment: FRANKIE Shine Comment USE FROM ER PLEASE Performed By: #### H S TROP, CMP, ETOH, CBC, TSH3 #### [facility] [address] LDL Cholesterol,Calculated 133 mg/dL High 0-100 [facility] Comment on above: Order Comment: FRANKIE Shine Comment USE FROM ER PLEASE Result Comment: LDL ATP III CLASSIFICATION LDL less than 100 mg/dL Optimal LDL 100-129 mg/dL Near or above optimal LDL 130-159 mg/dL Borderline high LDL 160-189 mg/dL High LDL greater than 189 mg/dL Very high Performed By: #### H S TROP, CMP, ETOH, CBC, TSH3 #### [facility] [address] Triglyceride w/Reflex 107 mg/dL Normal 0-149 [facility] Comment on above: Order Comment: FRANKIE Shine [...] S TROP, CMP, ETOH, CBC, TSH3 #### [facility] [address] VLDL CHOLESTEROL 21 mg/dL Normal [facility] Comment on above: Order Comment: FRANKIE Shine Comment USE FROM ER PLEASE Performed By: #### H S TROP, CMP, ETOH, CBC, TSH3 #### [facility] [address] [place] [address] [place] Lymphocytes Auto (Bld) [#/Vo l]Ordered By: Henry Hernandez on 05-09-2022 Lymphocytes (Bld) [#/Vol] 1.4 10*3/uL 1.00-4.8 [facility] Lymphocytes/100 WBC Auto (Bl d)Ordered By: Henry Hernandez on 05-09-2022 Lymphocytes/100 WBC (Bld) 22.7 % . [facility] MCH Auto (RBC) [Entitic mass ]Ordered By: Henry Hernandez on 05-09-2022 MCH (RBC) [Entitic mass] 29.4 pg 24.7-34.3 [facility] MCHC Auto (RBC) [Mass/Vol]Or dered By: Henry Hernandez on 05-09-2022 MCHC (RBC) [Mass/Vol] 32.7 g/dL 32.0-35.0 [facility] MCV Auto (RBC) [Entitic vol] Ordered By: Henry Hernandez on 05-09-2022 MCV (RBC) [Entitic vol] 90.0 fL 80-100 [facility] Monocyte distribution width [Entitic volume] in Blood by AutomatedOrdered By: Henry Hernandez on 05-09-2022 Monocyte distribution width Auto (Bld) [Entitic vol] 15.97 % 0.00-20.00 [facility] Monocytes Auto (Bld) [#/Vol] Ordered By: Henry Hernandez on 05-09-2022 Monocytes (Bld) [#/Vol] 0.4 10*3/uL 0.0-0.8 [facility] Monocytes/100 WBC Auto (Bld) Ordered By: Henry Hernandez on 05-09-2022 Monocytes/100 WBC (Bld) 6.5 % . [facility] Neutrophils Auto (Bld) [#/Vo l]Ordered By: Henry Hernandez on 05-09-2022 Neutrophils (Bld) [#/Vol] 4.3 10*3/uL 1.8-7.7 [facility] Neutrophils/100 WBC Auto (Bl d)Ordered By: Henry Hernandez on 05-09-2022 Neutrophils/100 WBC (Bld) 68.6 % . [facility] Nitrite Test strip Ql (U)Ord ered By: Henry Hernandez on 05-09-2022 Nitrite Ql (U) Negative Negative [facility] No Panel InformationOrdered By: Henry Hernandez on 05-09-2022 Estimated GFR (CKD-EPI) > 60.0 mL/Min [facility] Creatinine Clearance (Chem 114.17 [facility] Nucleated erythrocytes [Pres ence] in Blood by Automated countOrdered By: Henry Hernandez on 05-09-2022 Nucleated RBC Auto Ql (Bld) 0.0 /100{WBC} 0-0.5 [facility] Opiates [Presence] in Urine by Screen methodOrdered By: Henry Hernandez on 05-09-2022 Opiates Screen Ql (U) Negative Negative [facility] Phencyclidine Screen Ql (U)O rdered By: Henry Hernandez on 05-09-2022 Phencyclidine Ql (U) Negative Negative [facility] Platelet mean volume Auto (B ld) [Entitic vol]Ordered By: Henry Hernandez on 05-09-2022 Platelet mean volume (Bld) [Entitic vol] 6.7 fL 6.3-10.7 [facility] Platelets Auto (Bld) [#/Vol] Ordered By: Henry Hernandez on 05-09-2022 Platelets (Bld) [#/Vol] 330 10*3/uL 150-450 [facility] Potassium [Moles/volume] in Serum or PlasmaOrdered By: Henry Hernandez on 05-09-2022 Potassium [Moles/Vol] 3.9 mmol/L 3.5-5.1 [facility] Protein Auto test strip (U) [Mass/Vol]Ordered By: Henry Hernandez on 05-09-2022 Protein (U) [Mass/Vol] 30 mg/dL Negative [facility] Protein [Mass/volume] in Ser um or PlasmaOrdered By: Henry Hernandez on 05-09-2022 Protein [Mass/Vol] 7.8 g/dL 6.4-8.9 [facility] RBC Auto (Bld) [#/Vol]Ordere d By: Henry Hernandez on 05-09-2022 RBC (Bld) [#/Vol] 4.46 10*6/uL 3.60-5.00 [facility] Salicylateon 05-09-2022 Salicylate < 1.5 Low 15.0-30.0 [facility] Comment on above: Result Comment: Petty ents treated with Sulfasalazine may generate a false high result for Salicylate. Performed By: #### A CET, JAMIE #### [facility] [address] [place] [address] Salicylates [Mass/volume] in Serum or PlasmaOrdered By: Henry Hernandez on 05-09-2022 Salicylates [Mass/Vol] mg/dL 15.0-30.0 [facility] Comment on above: Patients treated wit h Sulfasalazine may generate a false high result for Salicylate. Serum or plasma albumin/glob ulin mass ratioOrdered By: Henry Hernandez on 05-09-2022 Albumin/Globulin [Mass ratio] 1.8 {ratio} [facility] Serum or plasma anion gap de terminationOrdered By: Henry Hernandez on 05-09-2022 Anion gap [Moles/Vol] 18.4 mmol/L 6.0-15.0 [facility] Serum or plasma high density lipoprotein (HDL) cholesterol measurementOrdered By: Ji Smith on 05-09-2022 Cholesterol in HDL [Mass/Vol] 182 mg/dL 35-85 [facility] Comment on above: HDL CHOL ATP-III CLA SSIFICATION Cardiovascular RiskHDL > or equal to 60 mg/dL LOWHDL < 40 mg/dL HIGH Serum or plasma total choles terol/high density lipoprotein (HDL) cholesterol mass ratOrdered By: Ji Smith on 05-09-2022 Cholesterol.total/Sarah sterol in HDL [Mass ratio] 1.8 {ratio} <5.0 [facility] Sodium [Moles/volume] in Ser um or PlasmaOrdered By: Henry Hernandez on 05-09-2022 Sodium [Moles/Vol] 141 mmol/L 136-145 [facility] Specific gravity Auto test s trip (U) [Rel density]Ordered By: Henry Hernandez on 05-09-2022 Specific gravity (U) [Rel density] 1.013 1.001-1.030 [facility] Thyroid Stim Hormone w/Rflxo n 05-09-2022 Thyroid Stim Hormone w/Rflx 0.80 u[iU]/mL Normal 0.45-5.33 [facility] Comment on above: Order Comment: FRANKIE SOTO Y Comment USE FROM ER PLEASE Performed By: #### H S TROP, CMP, ETOH, CBC, TSH3 #### [facility] [address] Thyrotropin [Units/volume] i n Serum or PlasmaOrdered By: Ji Smith on 05-09-2022 TSH Qn 0.80 m[IU]/L 0.45-5.33 [facility] Triglyceride [Mass/volume] i n Serum or PlasmaOrdered By: Ji Smith on 05-09-2022 Triglyceride [Mass/Vol] 107 mg/dL 0-149 [facility] Comment on above: TRIG ATP III CLASSIF ICATIONTRIG less than 150 mg/dL NormalTRIG 150-199 mg/dL Borderline highTRIG 200-500 mg/dL High TRIG greater than 500 mg/dL Very highStandard traceable to the Center for Disease Conrtrol and Prevention (CDC) test method. Urea nitrogen [Mass/volume] in Serum or PlasmaOrdered By: Henry Hernandez on 05-09-2022 Urea nitrogen [Mass/Vol] 11 mg/dL 7-25 [facility] Urine bacteria detection by automated methodOrdered By: Henry Hernandez on 05-09-2022 Bacteria Auto Ql (U) None seen None Seen [facility] Urine clarity by refractomet ry automatedOrdered By: Henry Hernandez on 05-09-2022 Clarity Refractometry automated (U) Clear Clear [facility] Urine glucose measurement by automated test strip (mass/volume)Ordered By: Henry Hernandez on 05-09-2022 Glucose Auto test strip (U) [Mass/Vol] Normal mg/dL Normal [facility] Urine hemoglobin detection b y automated test stripOrdered By: Henry Hernandez on 05-09-2022 Hemoglobin Auto test strip Ql (U) 1+ Negative [facility] Urine leukocyte esterase det ection by automated test stripOrdered By: Henry Hernandez on 05-09-2022 Leukocyte esterase Auto test strip Ql (U) 1+ Negative [facility] Urobilinogen Auto test strip (U) [Mass/Vol]Ordered By: Henry Hernandez on 05-09-2022 Urobilinogen (U) [Mass/Vol] Normal mg/dL Normal [facility] Vitamin D 25 Hydroxy Totalon 05-09-2022 Vitamin D 25 Hydroxy Total 36.0 ng/mL Normal 30-100 [facility] Comment on above: Order Comment: FRANKIE Shine Comment USE FROM ER PLEASE Result Comment: JESSICA MIN D STATUS 25(OH)VITAMIN D RANGE (ng/mL) Deficient <20 Insufficient 20 to <30 Sufficient 30 to 100 Reference: Aye Palacios, Geremias YOUNG, et al. Evaluation,treatment, and prevention of vitamin D deficiency; an Endocrine Society clinical practice guideline. JCEM. 2010; 96(7):1911-30. PERFORMED BY: [place] [address] PATHOLOGIST GREENSKEEPER SUPERVISOR KELLIE ALVARADO M.D. Performed By: #### H S TROP, CMP, ETOH, CBC, TSH3 #### [address] Vitamin D+Metabolites [Mass/ volume] in Serum or PlasmaOrdered By: Ji Smith on 05-09-2022 Vitamin D+Metabolites [Mass/Vol] 36.0 ng/mL 30-100 [facility] Comment on above: VITAMIN D STATUS 25( [place])VITAMIN D RANGE (ng/mL) Deficient <20 Insufficient 20 to <30Sufficient 30 to 100Reference: Aye Palacios, Geremias YOUNG, et al. Evaluation,treatment, and prevention of vitamin D deficiency; an Endocrine Society clinical practice guideline. JCEM. 2010; 96(7):1911-30. WBC Auto (Bld) [#/Vol]Ordere d By: Henry Hernandez on 05-09-2022 WBC (Bld) [#/Vol] 6.3 10*3/uL 3.8-11.6 [facility] pH Auto test strip (U)Ordere d By: Henry Hernandez on 05-09-2022 pH (U) 5.5 [pH] 5.0-9.0 [facility] Office Visiton 12-19-2021 Follow-up visit [id number] Antoinette Recio 1995 F Date Provider Department Center 12/19/2021 [id number]-[facility]ITBLORIN [facility] None No family history on file Level of Service:69633 ID OFFICE/OUTPT VISIT,PROCEDURE ONLY Reason for Visit and Comments: Rash [[id number]] - Itchy - painful started yesterday - Normal [facility] Progress Noteon 12-19-2021 Progress Note [facility] [address] Dept: [phone] Dept Loc: [phone] Subjective Antoinette Recio is a 26 y.o. [...] occasionally words aremis-transcribed.) Lorin Tenorio APRN - VASCULAR TECHNOLOGIST 12/19/21 Normal [facility] CT HEAD WO CONon 03-18-2021 CT [...] by: ATIYA GREWAL Date: 2021-03-17 22:52 Normal [facility] Operative Reporton Operative Report Date of Surgery: 06/14/2020 SURGEON: Jordan Bhakta D.O. DONOR SERVICES SPECIALIST: TOÑO Chowdary CNOR PREOPERATIVE DIAGNOSIS: Displaced midshaft [...] Clean Jordan Bhakta D.O. gls Dictated: 06/14/2020 #[id number] Typed: 06/15/2020 #[id number] cc: Jordan Bhakta D.O. [facility] Comment on above: Result Comment: Elec tronically Signed By: Jordan Bhakta DO\.br\Date and Time Signed: 07/16/20 20:57 EDT Coding Summary.on 06-25-2020 Coding Summary. [id number] FCBPSNO9DNI2kaFG6BCedP 2VybiAv VulomKOzTK21BAd0DMN0zW qzRXanmA4pnSKzP5p8CgZb CJ50nR55XTvyYAGbAwP2Tk ZpbjsgbWFy E6ieEwTdoHPmSqs+PHRhYm xlIHdpZHRoPScxMDAlJyBz aPxnOA9nLz7qVDMiVJWoqY xhcHNlOiBj s0phXWKoEGdgRV2onYbvP9 RogJE8PIHuk4t3Bh23tZV+ DYOdKTG7wGlrGMcpe891Pz Qra4ryYLK0 gRKyMEazUPE9O26bj2E1YT CiAPEvJHW3yHR8zA8acIuc optuE1JxaAWsGmH2FKX4mA QweS3dhIpc vaytmM9cYmg+Z45ABN3TXQ PRYU6BVre5G6VvTuvwpZH+ QL02JJQhTK04rJXjmPNmr4 heyQo3VwRp SPTaWLJ1eSmbMPnrh6OuRD MsD78uxOPok5U4GTFuyBgb yIJbMfDrhNR5qB4xAZqjox kcl8hmlpic Wjxhs2ydxl58pS93X71gFD ijWTLpEJC0ONIaDRCjvCtx ck8quW5sDl7+HEjcz8tfi3 fmaRu2YfMm UDOiqgNogVqkNST8f7PxNw 47K4BiqNxsj7WsHqn0tw22 qBAaf9W8bZU5HObbKFJvtM 5zIMjhOcA8 EBTtZnQlvW98vARsZTmwYt 1jnNkxwMfqRA0gWOFbaepj PKBqiD3tCXJhlTIzjPelAE 4wNTBpbjtm o096KwAgMTJ8YDDphXDeB2 UiqC5pPeRgFNWaYFZtM0Vo wRXgXHlcJ438FQboGrF3EF FcclUnO9Uh VMYjwRblQyG3w6X7Rg8Nh1 NekbdxMOI4BYepSPU3UfI9 IuEoDkM9C0GtEcz8WYKgjH flRX0qU4Zq MANjmknlllwrpTF0PGWlSJ UghP81oTUlWKgaEo6sw2Y1 b780DQFdUTPsuI58Mb4ivD ogMTBwdCBU sX6egialo9qypgcfCbCvUP QxUEk3GWk5RZDwcUicRiZy VPV0JrD2ETS8uGTulF7xdS dznxkrzJ0w Oyc+Q29ueL6sCDE5WNP4rf muOUTmfvTlHT69JN70X9Or PjwvdGFibGU+PGRpdiBzdH xzDO1lJvIh x1wlc6VkRJjgM5OpAJSzNH qdNox4FPVoDBO1kPV1xM8r WPHoRAlki9M3uBL0R1Aust Ubui2fn2iu IDEcTJdeJ97xqVOit1A1FA GrfWP0WKCmyIowEkRrjV57 Oyc+TCSlrPpvp7NkCayjy4 mzu0ppjBi9 CbVwUBFhnvPwmJvyOFO0h7 OlOx29V31gYVvaGEInPOIb POLkVKElfCmzez5tlJ1kQy 8+PGNvbCB3 eCP1zK4cXQBjAsB0MOuuW4 12CiFthDKyKbplx2eex4dj qUc2CuIyIHKnljWspKlyAI M3n0MkAl31 A37rVDcvWQUfQPXjMKPwRV WvwJctqf0lgD8eWa3+PC9j w8xrtm76gL11rUG+PHRkIH J0fGbgPJdl XQRzuT6oEVwuCbV2VCStJd GvaV00cQXmBJxlFw5jmIia qVraMS8eKJXmxbwzm617Ur Gex4wzUKTq yUQgVAdkPVP4P57mn8H0NU AqTZDnHCA9iFO3uN0wnAoa bjogbGVmdDsgdmVydGljYW ezYWfaA867 IHRvcDsnPlBhdGllbnQgTm WxZFs2D5NmWmx7BHAtwHdw BZ1bhKCgULnbEg4nkHjziO ntCM9bCWTo dthrz123IsNtq3msDWIgvN UaPFxePPZ3G66pn8S7XYIc YECrRTC1bQW2kK6kbMevhw ogbGVmdDsg qjVemVfbVPqcVCiuA798ZP RvcDsnPkJpcnRoIERhdGU6 CF99ZS68jTJmq7F2zJQ0O5 BhZGRpbmct niexrDP6APDjTYEqcK35Mo 1tnKtqUv4eTMYkXRJ9INNu oJFcA4GmzZ7uJmXgVTPbTO FhS8PmwAWt CRenU778SRifNcG1DZPjqj TtQ5WyLDMarGciSmH4r1Z2 Bx5AX6C4QP80CX28jGGdf0 I8lWF7V5Dh QFGxsylexkdkeIJ9PQCbHA LgrX78Bi7hmEpfIu1eSYXu VRR0GZJkiFMxG6RmuA6hBl AjMDAwMDAw C0UjwQPoPFtcA337SFvnHl V0BXUrxsZeQ7NbBICzvClg BeD8i8O6Qu0UTVu1KK68UR 62cMRsq7I3 pLA9F1WyBXQjzpkjgbepoM J7SQSyRSWjuG34Xh9wvWfe Pe5fRTZoFMD3TJFnpFTuL2 JhgD3dQkYk ITLxZSOvJ2WyaSPiKKtwZ8 76OSlfMjO3OYBbkvIaS7Dz FIGytWxrChZ5p6F5Mw2TIW TfFO01XAU3 fIM3UK45HL42T9UpSyzepH FibGU+PHRhYmxlIHdpZHRo QYmcIJBaAtNikLebLZ2aQf 9yZGVyLWNv gJavpWNuMcDxo3wfIRSvGP ieGC8mdJbwW1NzzYQ6QTBg c5a3Bl67K27rN9ZocGA+PG XrqSW9bLW4 tA4aYxHmLaN4VNthP741Mn AehSRdLzzqi2wol3nabFt1 FyK5DCRmzkOvjVfrEWN3k5 NbNk42D26b IHdpZHRoPSIxNSUiIHZhbG hiau6vgU8cYk2+PGNvbCB3 pCS3kB9yRyUgPuP2DFrcF4 49InRvcCIv Ydcxo6jio4sncKd6VfShZX CqeeVpjXhoMFD8a7ZuJi74 D7PorJrbm1JkIja4it94iW Sku0O5fPN8 X3TgKZPqqgnfzSSebXogZR 7nNPNtlsrjCESwpW1wEUXc J8g2OpTgNyD5VNixK7Lkyg R7CRMwsYVz IYtmPJS0O97nt4N8XWYpYX CfNYX5mEI2hK1neSjabceq bGVmdDsgdmVydGljYWwtYW qsM550XJMk mTonTNCncM8lBOFsvMOvsC zyED0aLOTwtjnyYbMVVtHC CVgcVH9SQoWOSKJqNjoojR Q+PHRkIHN0 jAsaJQakAKDunF5lMTVrJ3 b2EyQrXqY4PHviI1CzJPQy ujavOk62lA9qWqGaYhR4MQ yjS6IeftY5 QHGhmQJvOWpnAMI4T16yt8 J8SFIgXGKtESR9mLA2yA0w bGlnbjogbGVmdDsgdmVydG ljYWwtYWxp Q318SUHahCrnQjKaAfTnAt U8UWW4Y4TiVlk8MJDhcCrw XW4kwEUpTZbkSe9ouJunlG ddTJ2qHOSj zkkqOIPiqL1rHHConJBegO gqTW3rWCGofuauj318TnEe WIG3WTTxjFToL4SjcU4tOg AjMDAwMDAw N3FwoEGtEAllH103XLqyOe D9CBNekjVzF0BpWKPvfTli NlF0n0L4Pw2dBNJFJILyum wvdGQ+PHRk SJG1vIflGWsaWYCjyU3sOF NfY2h1JyKgEcZ3XHbjK9Ma QOKtcklmPv87iE0xBwJcMx V0VYehW2Pj voQ5GKCxtXXdYYbvSJR2S1 0pt8D8JVCtLCWiQDE0rFG9 zG6xyMxqfnadaXFisLblis VydGljYWwt CBgjH574OIRqjMxiEtEneG FsZTwvdGQ+PWBxTZW6cZde QNpfVFVlaW5fNAPyA9y8Wv PuXeO4FArh M7XbNTPsjskuWc27lK2tXe PhXwI3ZSgrX7DzvjQ4GRAj yXUzHVefOYG1Q17rz9A2DV MwMDAwMDA7 nAV1hD4alIznqiosuCXsbC xcrqUjxGktGDeaHYqmP913 IHRvcDsnPkFtYnVsYXRvcn ccY8VeAJWH QMobT7AkC7ZvzRewnLE+PC 99mw04U5FlXrclCqn9TYTk FVY3yNY9aT2eMJNsRTwzk5 I7hXA0T7Ru bsEkmg5sz2jtOMSqHQtiV0 6paTNvc4B5LSRcmSA4RWEy cWfqPxXnaG49Psj+PGNvbG dds7JsRiel p9sbj5khsDy3ZrGbFCLbgh XjaAwcXAM6s9JsAl24Q17v IHdpZHRoPSIzMCUiIHZhbG ahph0lnE3l Ii8+FCNxiFH1tHT3qJ0lEi AkMvD9QWviX309WeRquXPn Lrqan7vig8cjwWh7GrHvOG IgdmFsaWdu QAL8i1ZeRj27O6KolWvwm1 HnRlm6rs95aCJrj6I6gIE5 B8HfQMKuklhxqRUyoUcpUF 4yMDBpbjtw UBDuzQ5iWHIwC0g7GbPtOk B4OHslU9GgvcT6NTGnkIUl YHXclXWPhE3atuzax2rcrc ogIzAwMDAw WQq0RMt3BFErzEquYgThND S9DlS1HYG9qOTkuV2ybGgy xoqqzN4rFgx+ZLf4q6wbuK FlTT2uuBI6 TJ01JB70qIBms7H2eXW2D4 AvDZNotqvwggtfyBA2GFOu NDYbyX66Ds6ltPxcDt6jGO YuGGB9VEFu kCHqA6MfxT2kKtRdEXNrAL RdY8OlqYDbVDijG457JFvr OaJ7OHUvzmQpI5HvCMAbxX xdIpB1s8C7 Bd5KLY97JH71JF19yBNen5 D8bHA7J9SrEPKqkjjmjwni uCZ0IGXqTXNsrN80Ym7feY jbWx9tMEIq NVX5KZThqHAnR9KkhX4fSl DvPSGeLJNlG2TwwDMaVCsn K395FXfeUsJ9NELetqFzB0 FsLWFsaWdu XwP9n5X5Jk5EVx69NV47EY 64lWIxu0Y3hCS3Q9KlAJJn htzkmpfpbTW9MBAvCOTzhV 94Pj7rlQwp Ah5iOVOtCNN4XODwvMWjS1 RhmC1tFsSsMANeMPNgS7Uh qKIeTEduH456QYnnTwK6VT IrwbAlB2Sp EGLqwUlfKbA5u7I8Ad9POZ yktby2K9CyKxshqMB+PC90 XXNgFM15vXBorCIqk0sjfC u5CpVwGXTd IHN0 (more content not included)... Normal [facility] Coding Summary.on 06-24-2020 Coding Summary. CD:[id number] Gh 0bWw+PGhlYWQ+WK6EVMPkC 11gdRZtiF8VQ7vZDK8HFUT IIWXWVA7RFR3vrVL2MQycE 2VybiAv QvhkgQQqQZ40SYu8EQA6lG prCUoldH1zxNAbB4y3KxVk WT07hC47TEvvKGYqSzU5Ef ZpbjsgbWFy Z4lxFpIwcFFoXnm+PHRhYm xlIHdpZHRoPScxMDAlJyBz dSnbJG8mVu6sQPYeAWMmsD xhcHNlOiBj j5apZQNyWXjwNQ4inWfmE2 BemCZ4AKKbe3d6Jk29qGW+ JQTcFWL5aDbtQEgps118Qo Hyc6qhMSB7 gWLmOOenPVL3W50ct6B1KO HvHRUcSJL8tAB0yS2cwDrm hqkrS5BpiNSdOyA0PCH1bT WhzA2ynVpw zhjiuL1aOff+P71BGZ9PPS TTPT3SDus8S6YdBgzskQT+ KU41XTPzSI87aRYxePJmv4 bfkJx4AvIh MSRxGJW8tJtrDWzii5MzQF DzM32lyKXfq9T7ISBjzNmy uEJlIiKrbOO4aN7iVFenum cbq1wghnap Xkqsi2wvjp90dU34G87aIX gjHWUvMWP1WKYbEOWzhAis tn0dxT4eEo2+YAagy1fjn5 wqvNn7WtKi LCWomiLcpXnzIXT6x5IkTz 33I6XabKoyi8SeDav6zl34 tFIbc8K6oBK8XBrtEQOxzP 7lDZohMuV0 PZGdWbLajE04gNLoZUdmJm 1xlNllgUcaTS7zXVYrylyw ENBcdB7fEKUwcGArkRkhVN 4wNTBpbjtm s694FwNzEHL4LSZupWQuN7 EbeE6yInXfCMQjFPBlQ6Bj wXIgFSfnL035NOdsQuS8JD QpdlEbF0Dl ZKEbuAtiAiM8h4K2Dl4Vg0 OdyjywOIV6SPvqOVE6NoT1 NwCkGvA8R7UaEdc1LNSvrI mlSD8wZ3In AWRiycgvwunoeQS7DQXwFF PgwH72hQErVQgrYr7ew3M9 e792KMOwIFDirL40Gm6kxT ogMTBwdCBU uF3cxqzye7yhwsxjUvVdXL JhSUx2XPs4YVXmgCigEsDv BLQ9VgV9EAQ5pHDniP6ivK wwewfpeU4n Oyc+W34trF2qXXD1HCO4id qnAYQuknVxJT36JO47W7Fi PjwvdGFibGU+PGRpdiBzdH sfTC4mFdQz r6hsx2XkSEquS9ZbJUKiIB rnHze1ZCLkFSF9dXP8rM0r BJMkLWagf1Y6gEQ3O5Ltqi Esnf7ct5kr RDGlVAabP15qbGRkx3K9CL KpuKD3DBBtfGrgNqAboD80 Oyc+MCUukXlbv4IgLnccr0 lhh8njhHp5 FxVgNVIgljQbzCeoWYL2n4 OhLa26K47sLVsiNKMmGKQe KVNyAZWcaIuljj2etM9gQx 8+PGNvbCB3 vYM7wK7xBABrVbE2GUnjF6 26LgJmeLJoEfixn0hwx0jl vQc9OjQlLYUtwuWgpMmyHW D8w8GfWj15 D55cPDejIQExISOnOJYiBD LcuZbptm4vgO0mHz6+PC9j j3sihp77bF19sIM+PHRkIH Y2mKpvHUpl ZHYqbL3fWNwoYxD6RCFvXq EntI62yBZsIIyqXl5tmZer uTycCP5iZILlpnsya194Eq Gst1njXRNy zFPwWJezXYM1S26nx9Z1CF GjEIPeYQL5pOB1lP7ejWga bjogbGVmdDsgdmVydGljYW ohLAvfF565 IHRvcDsnPlBhdGllbnQgTm EgACb3M7TuLnh7ZAOxcZsg OD4pxJAwAZduUf0buZngbS zeFL2fKALx qzzfe356AbRxk9cbZNZogX UdGMlzNNC3L48py2D8ELAs PTGxRIS7dZQ4tG7wfJtyzn ogbGVmdDsg ngZyhSckYRivEJdcA503HX RvcDsnPkJpcnRoIERhdGU6 NW09LD72sVNgg9I1dQS0D8 BhZGRpbmct swnfgPO7RZKaMXRkqN79Zt 6zpLflIa9bXGTrUGY4CRXl xVNdV8LtgH0eXmOuJJJlDX UcZ2WvqKUn GEdqF718SUhfWlM8EYAaiv MzR1PpBWLteEkcGlS2b8K6 Gq4KX2N7ES24RN56rCYpo1 C5oFF3G2At LWUojrnimubteMD5LJCyKL WuoE82Za4pdUmwLg1kOWUe APN0LQYwtJDyS5UrzS9cOw AjMDAwMDAw B1QoeYFcDFwyN248DRqwAz P3XYBoxxYhW7KnAQJabEoi KwW7k6G8Je7HHKu5FB46AR 56mNLhk2O7 aNM0U7AsNZJlvqsdumfdhX K1VZJqANCvaT28Pg0jdVcv Eq0sVEGuUCD4QLCyaQCeC2 LnxB5uXkSb QWQiWCVqO4VqtYSgUVeyH8 77YCqkRzT0ICJzjhDdF2Dl VTYjpNmkHdY7u8B1Vh5EQB KoUV45KLD0 oRP2UO65VG71Y8RoRyqkgR FibGU+PHRhYmxlIHdpZHRo OEreBOVdYzGdxStrTB6jRx 9yZGVyLWNv xIqqbOGyRfQbn0seGRVwEC ciBD2sfOdfL6FajYI1NVIc i5j9Eq98L17kC2TjkXJ+PG CdqLV8jPF1 yX0vXhFpPzH3TQwwD848Lp InpIAcNfnis6oar7jvaWo6 SiS4NUYdpvEmaLcxLEI3t2 BvMo65X62e IHdpZHRoPSIxNSUiIHZhbG fffp2scH2eUt3+PGNvbCB3 iGV6uJ8cGeJiTjQ7EJpsA8 49InRvcCIv Nlvqj1zae2vdcAa6FqMyZQ IklbPfeWoeCNK8v1RdIu65 R0ZurZcdj9SeUyr0ix03lH Nre4E6jUG9 U4SqKVTreiwghCIfhNqzLO 2yTZVedaapSNQlvJ3kXPEt R4u5DiGxBnR8FVtbG6Khzb W6SCBkoWRg YUdyKGU8M07ly1T0JAXfJV ZqCGP6qRE7nL0sfTzssihu bGVmdDsgdmVydGljYWwtYW mgD007SQTb qYtuCZZmjR0qKMBbxJSdsA xkTE1oAHYfshyhCoUPKkOZ KFhaKV1QKhKAHXRaVfozaV Q+PHRkIHN0 dOujNEocBGVedS5vZSVzD0 d2LlBhBjV3INunZ2PfFAEm hwxxYm42yH8kVaPpZiC2NK gzK5UsdqA7 GAIczSVwHKmaOBM5E29il8 W4ACYfZRUvAAH9iHF1kC5t bGlnbjogbGVmdDsgdmVydG ljYWwtYWxp L295YOApkZuaRyYnEyNvXg Y1ZKH5L9GgPlv9LBEgpWsy YG0dwKKtSAhdSt8xhAmfjV zjPK1oQBIc abwuWBBteU1cUKJjbLYthF ejHZ7cRURkcxbfp345XpAs YIC8OHZgjKQnI2XtcF8tFh AjMDAwMDAw L3FawUYpSIadK678QPogBy Y2ZFEuioSiX6XjZGQjlUvs GvM7a3N2Uh5bVYRYEAYofb wvdGQ+PHRk RGW2yEfhBPcgXRWfuU6ePO MvW7m1IbKuYmR3BCzhU7Sf MGTedlvgWh22dJ2fJzVoIf I1DFfxU7Yd nnQ8QIDopKNsZVefBIJ5Y8 9su8U8UNOlMYUxEVJ5yQQ3 xZ2egJfdxuofkJJopBkcgu VydGljYWwt TLnkT130VMDsbBowTnEpsK FsZTwvdGQ+EUFqWNP6qMxd YUvuZVQzbH5cPZTmS2j7Ck NdPmJ0MCcq X9DgUMCvtomcEa84vG3lRw AvMkB6QAijT7SfmdW6KLGu jAXfDPruWUS6I10vz3Y1NV MwMDAwMDA7 qEE9gR5aqYolymuouGFcoS kzauGukIdiJIouNJiqZ441 UMFfbKvcSy64xKUhaFtdbj W3M9MtIfqc dHI+HO66HUToNK92lTSudD Shj9tttZp4EzDvQSCwEHK4 hEstNPazk5QjVUWtE46fmH Ivh1H2WNUo gWoqjFEySiSyzTD8qO4vPF yucjbie4tyggnhUgjne8gd uh14gY74I73mKCfhYABsVO IzMCUiIHZh eAqxrn4jkS1bKk7+PGNvbC W0nFZ4iH5vYvXkFcU9XVwv S749SoEhpHIfHinrq4jfy2 ojzEf1LxEb AEJjlyDueNxiETP6h4FfKv 51R58bYAbfNQRmAUWkXAPq CHRslDuywd6awD2gFk9+PC 5vy2bxpe58 fS36ePP+TOWpBJQ2rBxyYH kiYNWlfI6oCJgdSkQ9MZQp HoZehR71gFPjZFiuRv5niO qplTahPH7i GGIwtlvdt480PbJho3kpBK QpdEMjRJrlGOK0F30gv0G3 IDQuYTKcDUT9dDF6bL9svA lnbjogbGVm dDsgdmVydGljYWwtYWxpZ2 15GXZxcZjkJcAalRSwT0ix cnYGGJ6cUmhnzIY+PHRkIH I9yIgxPIpp VHTcyD3kMDSxU7j9GtRnAn P7WQqmX4MackL4TNInpESn AEQkjAYPpP6jvnvia7qcuz ogIzAwMDAw GYo9VJm1XMExtIcbAsCaYK B3BvA9DNU6tBApeU2odVxz hvzpxN7xDoi+RklOOjwvdG Q+PHRkIHN0 tKfnQRmzURIaaZ4eCNDdU1 g7MpUpXqO3NHknB7UwpcD2 UXZuqRGbOODwuDPYyU6dat xhh1edftpw DhEcTUGsSDi6YNc1KVPyyO irQpFmREZ7KfN9URL5zOYc kU6fxJxrdcfziF2zFvi+TV JOOjwvdGQ+ RAKfPEC4kUogYPtiBNQqvT 9zNLVtK5y1PdArTwT4APvn D2KeayM5PVDhtZEaZSAtmS MUqM3dqdve o2gcyeluWjMiDHZlTCz6QY n4UCDvvUgzCuEtRTO0LlM3 USK2rHAznC6lcLbylrgshP 9wOyc+UGF5 OSC8HL64PF52H5WxLnvaaP FibGU+PHRhYmxlIHdpZHRo EHgxHBWpDiEwkJybDH7jJg 9yZGVyLWNv bGxh (more content not included)... [facility] IntraOperative Documentson 0 06-22-2020 IntraOperative Documents [id number]#1. 00CD:[address] [facility] Main OR Intraoperative Recor don 06-20-2020 Main OR Intraoperative Record IntraOp Document Type FT Summary Primary Physician: Jordan Bhakta DO Finalized Date/Time: 06/20/20 12:56:01 Pt. Name: ALESIA RECIOANDA Azalea Ramirez/Sex: 1995 Female Med Rec #: [id number] Physician: Jordan Bhakta DO Financial #: [id number] Pt. Type: A Room/Bed: [place] [address] Admit/Disch: 06/14/20 15:28:52 - 06/14/20 21:05:00 Institution: [...] Role Performed Anesthesiologist of Surgeon - Primary BEEF SPECIALIST Record Time In 06/14/20 17:11:00 06/14/20 17:11:00 06/14/20 17:11:00 Time Out 06/14/20 19:10:00 06/14/20 19:10:00 06/14/20 19:10:00 Procedure CLAVICULAR FRACTURE CLAVICULAR FRACTURE CLAVICULAR FRACTURE ORIF(Left) ORIF(Left) ORIF(Left) Comments [facility] - SCRUBBED IN Last Modified By: Shreya RN, Alycia Cash RN, Alycia Yin RN 06/14/20 19:14:30 06/14/20 19:14:30 06/14/20 19:14:30 Entry 4 Entry 5 Entry 6 Case Attendee Julian SARGENT, Jhonny Cash RN, Isabella Johnson Role Performed Scrub - Primary Illuminating Engineer - Primary Amusement Machine Mechanic Time In 06/14/20 17:11:00 06/14/20 17:11:00 06/14/20 [...] and sympto (more content not included)... Normal [facility] Operative Reporton Operative Report Date of [...] Godfrey Graves Jr., D.O. gls Dictated: 06/14/2020 #[id number] Typed: 06/15/2020 #[id number] cc: Godfrey Graves Jr., D.O. [facility] Comment on above: Result Comment: Elec tronically Signed By: Godfrey Graves JR, DO\.br\Date and Time Signed: 06/18/20 09:48 EDT Postoperative Documentson Postoperative Documents [id number]#1. 00CD:127 [facility] Progress Note-Physicianon Progress Note-Physician Patient: ANTOINETTE RECIO [...] constipation, # 20 cap(s), Refills(s) 0, Pharmacy: [facility], 165.1, cm, 06/14/20 15:51:00 EDT, Height/Length [...] food, # 60 tab(s), Refills(s) 0, Pharmacy: [facility], 165.1, cm, 06/14/20 15:51:00 EDT, Height/Length Dosing, 74.6, kg, 06/14/20 15:51:00 EDT, Weight Dosing Problem list: All Problems Clavicle fracture / SNOMED CT 95114179 / Confirmed left Physical Examination Intake and Output Denies significant n/v and is tolerating p.o. No qualifying data available Respiratory: Adequate air exchange with presybeterian of preoperative function.. Cardiovascular: Cardiovascular function is stable and has returned to preoperative levels.. Neurologic: Pt has returned to preoperative baseline.. Review / Management Condition: Stable. Assessment Anesthetic outcome No anesthetic complications noted. Plan Transfer/ Discharge: Patient can be discharged from PACU when criteria met. Condition good. Normal [facility] Comment on above: Result Comment: Elec [...] data available Respiratory: Adequate air exchange with presybeterian of preoperative function.. Cardiovascular: Cardiovascular function is stable and has returned to preoperative levels.. Neurologic: Pt has returned to preoperative baseline.. Review / Management Condition: Stable. Assessment Anesthetic outcome No anesthetic complications noted. Plan Transfer/ Discharge: Patient can be discharged from PACU when criteria met. Condition good. Normal [facility] Comment on above: Result Comment: Elec tronically Signed By: oGdfrey Graves JR, DO XR Clavicle Lefton XR Clavicle Left Exam Date/Time: 06/14/2020 20:16 EDT Reason for Exam: Fracture Report IMPRESSION: STATUS POST ORIF FRACTURE LEFT CLAVICLE. CLINICAL HISTORY: Fracture. COMMENT: 2 limited yzvcf-if-gpio C-arm images were obtained in the OR. [...] Dose: Gener in mGy = 3.[address] [facility] Consent for Anesthesiaon Consent for Anesthesia [id number]#1. 00CD:[address] [facility] Discharge Instructionson Discharge Instructions [id number]#1. 00CD:[address] [facility] IntraOperative Documentson 0 06-15-2020 IntraOperative Documents [id number]#1. 00CD:[address] [facility] IntraOperative Documents [id number]#1. 00CD:[address] [facility] Preoperative Documentson Preoperative Documents [id number]#1. 00CD:[address] [facility] COVID-19 (MC)on 06-14-2020 SARS-CoV-2 (COVID-19) RNA AIDEE+probe Ql (Unsp spec) Not detected Normal Not Detected [facility] Comment on above: Result Comment: This test result should be correlated with clinical presentations and medical history by a healthcare provider to determine its clinical significance. This assay was performed by a reverse transcriptase real-time polymerase chain reaction (rt PCR) method on the [employer] system. This test has been authorized only [...] or revoked sooner. Performed By: #### 2 [id number] ####[id number] [place] [address] SARS-CoV-2 (COVID-19) RNA AIDEE+probe Ql (Unsp spec) Pass Normal Pass [facility] Comment on above: Performed By: #### 2 [id number] ####[address] [place] [address] Specimen source Nom (Unsp spec) Nasal Normal [facility] Comment on above: Performed By: #### 2 [id number] ####[address] [place] [address] Coding Summary.on 06-14-2020 Coding Summary. CD:[id number] Gh 0bWw+PGhlYWQ+NU3RCCIiK 70ujAOxuM0CT7tHAU1TSWJ BXEJXTS4EUC0yrZW5EAgfX 2VybiAv ImwjwICgUS82RWg4STR9uE tyRHbrmP0bsQKeZ8i1DuJg GK78mT13EVknQBKhTmG3Tg ZpbjsgbWFy K9jqFwZhpGMmWrq+PHRhYm xlIHdpZHRoPScxMDAlJyBz dYpuHE0wKn2nNKRaDYEcmY xhcHNlOiBj b6ncEAXrAFaaLD7xyFhwY4 MzoIC1WVTws0v9Mp21rVP+ IJAuHRG0sFglUKjbm214Zw Fjv1roLKF9 fLGuTLwzNFB8J27tf9Q6CB IuWKHrPGZ7nDF2zP7qqHdd lzwfI9MicNEqVoO5AMM7eU GbxH8noIhm prynpR4tTcx+D29HVL9UCC DKYW0IJyl5H5TvLvphfAL+ NO85MDWoNQ67kTLarDFdl2 bbmIj3OpJx ASCaZKY5qUtvZMzfr0FtXI TrQ23rkKKny6D9MSYfsLgh lTNtOmUhbFU2yB1kVBljhe mii2mpvack Yvlyy8eytt08rL88B18jLU alDVZpJJD4HGFtHQOofTnt os0ztG7wGr0+RUeof4ono8 wsxVf1YmUq KTNzzzYxxBwqKVB6j5TeFr 76K6UqsPxpg6DdMux0nt88 hKYfq9Y3rGG1ZXsyGPAfdG 9jBUjpYxG2 BLWtLjVhsD85sPTbEDwdOr 1uqMdvnMawBD1kEOHwwxsn TACsiA2jICLsaVBxeUyqZL 4wNTBpbjtm d624XgIlMLS6CCVgyLImD5 KcsB4rWcFqRRMvRPBiA5Cx kMBaXWibA305XPffLeG0GJ YwcxJfO7Zp XNPvzOfgBgN1t7G6Ok5Oe3 XcvmmdCWS9DXguRMY0NdT2 VwJcYmZ7D5KtNhf8SKZlrF dyRH8fX4Nn NMCwjufsgxfwzUT5EINrVW TbtM38tSJhFOduZk1gt4C5 z407ZARiUZIayN47Sj7rsN ogMTBwdCBU hH4jzygtb6hnterbYrMjPB CjMXq6UNb4VTEwbMvvQeUz WJL8LkT7NDJ8oAKvlH1bbV fapjeidW3x Oyc+P09jpB7oIDP3NXO6sk luGMJtyzIqXH28PL63X4Yg PjwvdGFibGU+PGRpdiBzdH rxGG0vFgWr h2pwi9TiZWyeA3NaYPUqLH ngFkk7JFFdRZG4eTX0jG3g FEHvIEsry3C2lDB1F2Efie Gxgy9pf7jv NPEuBKxvX23nzZOyj0C7CY EztVN3OPKsnWayYwJreR10 Oyc+JNAxbWjjb4FtTaucl5 qwl9xrsEq5 SvUoAWUhtjHqbDgsIUP7x3 QqFn06P36tVQvgEVOfDYJm MGQbOJFkzJdnhj3uvK9hEn 8+PGNvbCB3 yTV2wC7hEHWtZtA2OHmvK7 98AvLlcPIaVuecw2het5vb rLv9XyMzZHHtwgAjuDbkXT R6x5GeJx47 D32wPTjhTAEhWRPmNBJxTX LbiYfmxh7uoF0yVt8+PC9j o3tgus21iX15sWY+PHRkIH H2fGunHOej LMLlsK0aQBokDbC7JUVbWw BzfF09eNPoRGbnJz9lrQee cStwMS0oUGNwirsap471Fu Ere0raPQIj xBZpVWzlKJB4Y71ro0V5GZ PhBFByPRO1uWM0eC5pgAxm bjogbGVmdDsgdmVydGljYW qrBRcuG042 IHRvcDsnPlBhdGllbnQgTm QnXJq5O1MgTbu9MAAxrUpu ZY5zrMOsCLfjUd9vvLnvwR ddMA5zJWKo yltkg058SlIfx0waUAYzhS EcWEbzKXI8Z75rv2T8WISt HLEbNJO7nKY1rE2jiPeyke ogbGVmdDsg voDarQsrYLyaIQncT114RT RvcDsnPkJpcnRoIERhdGU6 WO75SO35eBMdh8W1cEM7O3 BhZGRpbmct yyhhxRL0ONTuFLTfiR47Mt 9miOyqAj3fTHLpQAX2NRNf gNXdT4HwrW4fQzUqXOUzLB JfZ0BydCBo PZadN516YIwxUvN0HLPfnm EsA7McOKKpoLbjPaH5y5Z5 Po0IF1C7QP89QF50eQGoq9 U5fEL9M6Ct DKJtuowyojhozXS2XTNuGB IftZ25Zx9rsUmnBz0lDTZz MHF9CYYpnEYwL4WpgZ7cPo AjMDAwMDAw G0QrtBUnZFugA126GQbuZa E4LWNjypZoO4NfCFLnkPqd HpV5f2O3Ro1YOMw3FO33NS 84nDVdl7P6 zDH4P3TcNXJjlsjvcmnksQ V3GIAbEBQafI78Qn3fpVlc Bg8nMLOrCQR0RLFovXXyK7 MjbR9eWiNj PPIiTLLgB7EjtHZfQSuhG4 73CNhsLiD6FBAjtdYrM9Bj JUVxkEgbUzZ1p7A9Cm5JGW NdTB43EOU0 eMK5OB31IY86P3DwDpcjlK FibGU+PHRhYmxlIHdpZHRo OHqyXAAlIlPujJafLR0vBi 9yZGVyLWNv yGhlmIAzFnEox2xaNEXcYA zyQH9gxJvkJ4QrqST4BDEa b4u3Ss61N49sR5EenEY+PG YroRU5yJJ2 qZ1pNpLsDvY8PPusD349Yp ZolEFhWjotv1dvk5agfSc1 KhD0QJEmsqNfwFewVLA8p2 IkKj43B72q IHdpZHRoPSIxNSUiIHZhbG kwug6opY4jOc6+PGNvbCB3 pBH7gH8dTlKfMyC1BPoeN5 49InRvcCIv Rajmk5qxd1iddLk4StRiUP PzgdNfoJfkFQA1t3CpVt60 K8JojIjna9TjXad3sb26fW Lqn1D8jIU7 Q1JhAFQeozlnwIApeDczPI 5iXTJqdogrYRCajP6pDOOj I5t5FzLxJqO2WYzfW5Uugv F9VXAflBQd UStfHVL7N42hm2S6UVZwGM WwEHA6jJB3lA2maZuebgll bGVmdDsgdmVydGljYWwtYW evE451GAXx jEieYVPvmA4lTNIriITjnB qfAF9bVFLakqjtYeYYCgFW ZVofEX3VVvVOKOKlEbfwsI Q+PHRkIHN0 nXngGVskKOQjqW8vTNFbB3 y9DeRmLqE0GIxgC6AqGMNd haxaDq78vI7sYvArHaW7RJ geI9TebxL8 XWKucUJwZFfqQAV7L02yb8 Z3JDHnRBSfBNO5aJM5bA6m bGlnbjogbGVmdDsgdmVydG ljYWwtYWxp J775JAOqzOzaZdXxAeUbCf K2HNM6M2VeQpb5TMHbxCbn RG7mtGMeHEnmXg6uzDupbC nvWD4pFFMv bpseFYFthB4bLHCmnIPcyM yvKB8lRJJpjgzut835SvNn QUK7HGLoxAUkK0BhjE5vCk AjMDAwMDAw T5YxeMBaBJvpC051PPkiUr V0IFUrbsVtG1QzXXOqxYow JxT3u6O8Ey9rKNEERVErox wvdGQ+PHRk NTI0jYxjIIisYPVxcE4bNX VqG0x2TpYaHgW9GSdfI9Xf UBEdljofXi16gO0dCeQnFb Q4QVroX8Vu vvF6REBtwEBnWQtpZRF9O1 8ko4Y4KSOyGVKpNJN8xBH9 aU7bkRftrowccUBcbFpfkw VydGljYWwt EJyzK853YFQbaJadIkVysJ FsZTwvdGQ+QBOsHAO4lUnx IJwtLENkaW7oZOYgW1x1Sd BoToL3LXro O9HsWWGolwvvVv94zI5gCr RkNwP3MIhvX3FjzxB9UVYc hHAlIBorCXG4H16cg5D9WK MwMDAwMDA7 aFW7wO9iqBrpcvdmbNWvxL rjbuYmaMfyOCtwTSpdN169 HXBwxFsuSzJjTTWaDJ7ztI wvdGQ+PC90 vr51M2EzTrfpGbt6PGHvQN Q2nHF7qV6fUCIgBGmfr7U2 zAF8O2IiugRjub3gi2lbCV GuSLweY74g dILyn7T2XHXwsRK9XKDpaS mrNqOsqP13Cze+PGNvbGdy a2DjJxihe3tuj7thdFs2Tk MwJSIgdmFs zCexMHA9e6VuHf93J88iDR dpZHRoPSIzMCUiIHZhbGln zf7rfW3fXw3+IEQnlBV7rO R4sW2bTnJn YzH8ZBxjD021TnPupSBsGz rxc3cnv9kbvZi6WkFaDHJn izKueBurKPP2k7MmKo31J2 DdlTobr6Wg Kqy0pt72qORzx5D5zIB4V6 UeQNAxyyermKWpgRqzCY2b LKAmvcewDTDoxH2eKXQdW0 p9JjTgLrD7 HKaaE9IrfoG9SFXlzCXhHT VpkEFCjT5iqhpus8eltlbe FbUhYMDwQQu9NFy1ZJUfiX duOiBsZWZ0 ZpE5JHK4cSVcwV8vtCpmxo porO3jThy+OUf8c0anuJSx ZD2riLJ4VJ26OS12wXVrq0 L3jRO7T1Tr TZRnevrgrjccwQE8MQJzQC QwnE17Mh9rgRcgXo8yHFKz RVF1PLWiaZHxD4JguR5fOa AjMDAwMDAw I3PenQObSIqoA950AHfcPq Z4IGWomaViA4VdQGEffUbh VnC3b3F9Ug7VJD41YZ63LA 87wVTbi0I7 kWG8X0EhXGIlxridxyqykA N1QUDuZIMiuC43Xe3wiZzr Aw0eBVPvKKK9GMEtcPCyV9 RntV1mMnAd PXTpDMMbC2UpzWPuLYxrT2 85YMfcDdV6FFYeoiVmH4Mr UZCjtThbZeN0l2D0Dl3NSy 36FB12YB32 sAVom1U1kUQ5Y0TdAHGhmk hkgqfcpKW3FSQuTCVytS38 Tj9ozPunMl5eDFFyPUI5SQ QhuKKyB3Tk bA9nJoUoJVSlFNRbR8HcoI ShXBmbS392YSamUxM6UCCv jqAaG3HoCPUpnKfbBcY0i8 B9Mb0NSDbx bjb8G8ThNaqpmXR+PC90YW TnBO80aZVwnJCkk9qprFf1 HxFpIOIrSFV4sJgeWXbbb1 JpWOLwY28w bGFw (more content not included)... Normal [facility] Consent for Procedure/Surger yon 06-14-2020 Consent for Procedure/Surgery [id number]#1.0 0CD:[address] [facility] Consent for Treatmenton Consent for Treatment [id number]#1.00C D:127 [place] [facility] Inpatient Patient Summaryon 06-14-2020 Inpatient Patient Summary [address] [id number] [facility] Clinical Discharge Instructions PERSON INFORMATION Name: ANTOINETTE RECIO [facility]#:[id number] PHYSICIANS Admitting Physician: Jordan Bhakta DO Attending Physician: Jordan Bhakta DO PCP: NONE, XXXX Discharge Diagnosis: Comment: PATIENT EDUCATION INFORMATION Instructions: Shoulder Cryocuff Patient Instructions - FT (CUSTOM); Post Op Patient Instructions - FT (Custom) (CUSTOM); Silvana Bhakta - Shoulder Replacement (Custom) Medication Leaflets: Follow up: With: Address: When: Jordan Bhakta [address] [place] [id number] [facility] (1) 06/21/2020 8:45 AM Comments: Call for any problems. Keep scheduled appointment MEDICATION LIST [facility] [place], [place] [id number], [phone] acetaminophen-oxycodon e (Percocet 325 mg-5 mg Tab) 1-2 tab(s) Oral q4hr; as needed as needed for pain. Refills: 0. docusate (Colace 100 mg Cap) 1 Capsules By Mouth 2 times a day as needed for constipation. Refills: 0. Medications to Continue Taking That Have Changed [facility] [place], [place] [id number], [phone] START: naproxen (naproxen 500 mg Tab) 1 Tablets By Mouth 2 times a day. with food. Refills: 0. Other Medications START: naproxen (naproxen 500 mg Tab) 1 Tablets By Mouth 2 times a day. Take one tab by mouth two times a day. Refills: 0. Comment: Normal [facility] Main OR PACU I [facility] Main OR PACU I Record PACU Phase I Docum ent Type FT Summary Primary Physician: Jordan Bhakta DO Finalized Date/Time: 06/14/20 19:45:42 Pt. Name: ANTOINETTE RECIO /Sex: 1995 Female Med Rec #: [id number] Physician: Jordan Bhakta DO Financial #: [id number] Pt. Type: A Room/Bed: [place] [address] Admit/Disch: 06/14/20 15:28:52 - Institution: Case Times [...] Yvette Santa RN 06/14/20 19:45 Normal [facility] Main OR PACU II [facility] Main OR PACU II Record PACU Phase II Doc ument Type FT Summary Primary Physician: Jordan Bhakta DO Finalized Date/Time: 06/14/20 21:13:50 Pt. Name: ANTOINETTE RECIO [place]./Sex: 1995 Female Med Rec #: [id number] Physician: Jodran Bhakta DO Financial #: [id number] Pt. Type: A Room/Bed: [facility] Admit/Disch: 06/14/20 15:28:52 - 06/14/20 [...] By: Soraya Dixon RN 06/14/20 21:[address] [facility] Main OR Preoperative Recordo n 06-14-2020 Main OR Preoperative Record PreOp Document Type FT Summary Primary Physician: Jordan Bhakta DO Finalized Date/Time: 06/14/20 18:03:47 Pt. Name: ANTOINETTE RECIO /Sex: 1995 Female Med Rec #: [id number] Physician: Jordan Bhakta DO Financial #: [id number] Pt. Type: A Room/Bed: [place] [address] Admit/Disch: 06/14/20 15:28:52 - Institution: Case Times PreOp FT Pre-Care Text: Verifies consent for planned procedure, identifies individual values and wishes concerning care, includes family members in perioperative teaching Entry 1 Patient Times. In Pre Surgery 06/14/20 15:35:00 Out Pre Surgery 06/14/20 16:53:00 Outcomes Met? Yes Last Modified By: Alyica Cash RN 06/14/20 18:03:42 Post-Care Text: The patient participates in decisions affecting his or her perioperative plan of care Finalized By: Alycia Cash RN Document Signatures Signed By: Alycia Cash RN 06/14/20 18:[address] [facility] Monitor Recordon 06-14-2020 Monitor Record [id number]#1. 00CD:127 [facility] Operative Reporton Operative Report Patient: ANTOINETTE RECIO [...] Anesthesia type: General, Regional. anesthesiologist: abhinav Williamson [facility] Comment on above: Result Comment: Elec tronically Signed By: Jordan Bhakta DO\.br\Date and Time Signed: 06/14/20 19:03 EDT Outpatient Surgery Discharge Instructionon 06-14-2020 Outpatient Surgery Discharge Instruction [place] [id number] Patient Discharge Instructions PERSON INFORMATION Name: ANTOINETTE [...] EMERGENCY ROOM OR CALL 911 I RECIOALESIA CUBAHEDY Tristan, have received the attached patient education materials/instructions and have verbalized understanding: May we do a follow up call? Yes No I was present when discharge instructions were given Patient Signature Date Clinican/Nurse Signature ___ Date Follow up: With: Address: When: Jordan hBakta [address] [place], [place] [address] [address] Business (1) 06/21/2020 8:45 AM Comments: Call for any problems. Keep scheduled appointment Pharmacy Information: [facility] You may receive a survey from Molly Salmon asking you to rate your care experience. Your feedback is important and will help us understand what we do well and how we can improve the quality of care we provide to you, your loved ones and our community. It?s an honor to serve you. Thank you for choosing [facility] HERE ARE THE MEDICATION CHANGES THAT OCCURRED DURING YOUR HOSPITAL STAY New Medications [facility] [address] [place], [place] [id number], [phone] acetaminophen-oxycodon e (Percocet 325 mg-5 mg Tab) 1-2 tab(s) Oral q4hr; as needed as needed for pain. Refills: 0. docusate (Colace 100 mg Cap) 1 Capsules By Mouth 2 times a day as needed for constipation. Refills: 0. Medications to Continue Taking That Have Changed [facility] [address] [place], [place] [id number], [phone] START: naproxen (naproxen 500 mg Tab) 1 Tablets By Mouth 2 times a day. with food. Refills: 0. Other Medications START: naproxen (naproxen 500 mg Tab) 1 Tablets By Mouth 2 times a day. Take one tab by mouth two times a day. Refills: 0. PATIENT EDUCATION INFORMATION Instructions: [place], [place] [facility] DISCHARGE INSTRUCTIONS: SHOULDER SURGERY [...] persistent vomiting. Jordan Bhakta, DO [facility] [address] [place] [address] Reviewed: Normal [facility] Patient Education - Texton 0 06-14-2020 Patient Education - Text [place] [facility] DISCHARGE INSTRUCTIONS: SHOULDER SURGERY [...] vomiting. Jordan Bhakta, DO [facility] [address] [place], [place] [address] Reviewed: Normal [facility] BMPon 06-13-2020 Anion gap [Moles/Vol] 12 mmol/L Normal - [facility] Comment on above: Performed By: #### 2 211310, [id number], [id number] ####[facility] [address] [place] [address] Calcium [Mass/Vol] 9.1 mg/dL Normal 8.9-11.1 [facility] Comment on above: Performed By: #### 2 343849, 25131737, 2163874 ####[facility] [address] [place] [address] Chloride [Moles/Vol] 105 mmol/L Normal 101-111 [facility] Comment on above: Performed By: #### 2 529155, 05118721, 2471129 ####[facility] [address] [place] [address] CO2 [Moles/Vol] 29 mmol/L Normal 21-31 [facility] Comment on above: Performed By: #### 2 530054, 65007122, 2167143 ####[facility] [address] [place] [address] Creatinine [Mass/Vol] 0.7 mg/dL Normal 0.5-1.3 [facility] Comment on above: Performed By: #### 2 457394, 92548872, 5593612 ####[facility] [address] [place] [address] Glucose [Mass/Vol] 82 mg/dL Normal 55-199 [facility] Comment on above: Result Comment: If t his glucose result represents a fasting glucose, interpretation should refer to the following reference range: 55-99 mg/dL Performed By: #### 2 099038, 70069581, 6424039 ####[facility] [address] [place] [address] Potassium [Moles/Vol] 3.9 mmol/L Normal 3.5-5.3 [facility] Comment on above: Performed By: #### 2 923329, 10199090, 5844272 ####[facility] [address] [place] [address] Sodium [Moles/Vol] 142 mmol/L Normal 135-145 [facility] Comment on above: Performed By: #### 2 864857, 90435845, 3362165 ####[facility] [address] [place] [address] Urea nitrogen [Mass/Vol] 14 mg/dL Normal 5-21 [facility] Comment on above: Performed By: #### 2 744245, 62186251, 0624449 ####[facility] [address] [place] [address] Urea nitrogen/Creatinine [Mass ratio] 20 No Units Normal 10-20 [facility] Comment on above: Performed By: #### 2 963518, 38850977, 1609657 ####[address] [address] CBC w/Indiceson 06-13-2020 Erythrocyte distribution width (RBC) [Ratio] 14.3 % High 10.9-14.2 [facility] Comment on above: Performed By: #### 2 946803, 48156432, 1466176 ####[address] [address] Hematocrit (Bld) [Volume fraction] 36.4 % Normal 34.0-46.0 [facility] Comment on above: Performed By: #### 2 079327, 08798786, 8271397 ####[address] [address] Hemoglobin (Bld) [Mass/Vol] 11.9 g/dL Low 12.0-16.0 [facility] Comment on above: Performed By: #### 2 798941, 36310108, 3370088 ####[address] [address] MCH (RBC) [Entitic mass] 27.5 pg Normal 27.0-34.0 [facility] Comment on above: Performed By: #### 2 575929, 25161363, 9067384 ####[address] [address] MCHC (RBC) [Mass/Vol] 32.6 g/dL Normal 31.4-36.0 [facility] Comment on above: Performed By: #### 2 830711, 51452017, 1066396 ####[facility] [address] [place] [address] MCV (RBC) [Entitic vol] 84.4 fL Normal 80.0-100.0 [facility] Comment on above: Performed By: #### 2 236128, 41309917, 1241201 ####[address] [address] Platelet mean volume (Bld) [Entitic vol] 7.5 fL Normal 6.4-10.8 [facility] Comment on above: Performed By: #### 2 465303, 51861048, 3969175 ####[address] [address] Platelets (Bld) [#/Vol] 319.0 E9/L Normal 150.0-500.0 [facility] Comment on above: Performed By: #### 2 830851, 39604831, 2750603 ####[address] [address] RBC (Bld) [#/Vol] 4.3 E12/L Normal 4.3-5.9 [facility] Comment on above: Performed By: #### 2 038944, 30871508, 3558326 ####[address] [address] WBC corrected for nucl RBC Auto (Bld) [#/Vol] 6.8 E9/L Normal 4.0-11.0 [facility] Comment on above: Performed By: #### 2 991803, 34949152, 0227845 ####[address] [address] Consent for Treatmenton Consent for Treatment [id number]#1.0 0CD:[address] [facility] Physician Orderon 06-13-2020 Physician Order [id number]#1. 00CD:[address] [facility] Physician Order [id number]#1. 00CD:[address] [facility] Progress Note-Physicianon Progress Note-Physician Patient: ANTOINETTE [...] selected or recorded. Procedure history: Gastric sleeve ([id number]) in 2019 at 22 Years. Tonsillectomy ([id number]). Social History Social & Psychosocial Habits Alcohol [...] review: No qualifying data available . Plan [place]de[place] Society of Anesthesiologists (ASA) physical status classification: Class I. Anesthetic Preoperative Plan Anesthesia: General. , Regional Interscalene Block. Anesthetic plan, risks, benefits, and alternatives discussed with the patient and/or family. Pt. and/or family present and agree to proceed as planned.. Discussed the importance of abstaining from tobacco products, and offered counseling if desired. Normal [facility] Comment on above: Result Comment: Elec tronically Signed By: Godfrey Graves JR, DO.candice\Date and Time Signed: 06/13/20 15:05 EDT U BetaHcg Qualon 06-13-2020 HCG.beta subunit (U) [Moles/Vol] Negative Normal [facility] Comment on above: Performed By: #### 2 [id number] #### [facility] [address] [place] [address] eGFRon 06-13-2020 GFR/1.73 sq M.predicted among blacks MDRD (S/P/Bld) [Vol rate/Area] mL/min/{1.73_m2} Normal >=59 [facility] Comment on above: Order Comment: Order added by Discern Expert. Result Comment: eGFR is race adjusted. AA=. Performed By: #### 2 919203, 01838383, 6795075 ####[facility] [address] [place] [address] GFR/1.73 sq M.predicted among non-blacks MDRD (S/P/Bld) [Vol rate/Area] mL/min/{1.73_m2} Normal >=59 [facility] Comment on above: Order Comment: Order added by Discern Expert. Result Comment: Skidder Runner mile kidney disease could be indicated at eGFR's of less than 60 mL/min/1.73m2. Kidney failure is indicated at less than 15 mL/min/1.73m2. Performed By: #### 2 071439, 60104415, 3402668 ####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 [address] [place] [address] First Test Unknown Normal [facility] Comment on above: Performed By: #### 2 [id number] ####[facility] [address] [place] [address] Hospitalized? NO Normal [facility] Comment on above: Performed By: #### 2 [id number] ####[facility] [address] [place] [address] [facility] Comment on above: Performed By: #### 2 [id number] ####[facility] [address] [place] [address] ? Unknown Normal [facility] Comment on above: Performed By: #### 2 [id number] ####[facility] [address] [place] [address] Resides in a [facility] Care Setting NO Normal [facility] Comment on above: Performed By: #### 2 [id number] ####[place] [address] [place] [address] Symptomatic as defined by [facility] Unknown Normal [facility] Comment on above: Performed By: #### 2 [id number] ####[place] [address] [place] [address] Physician Orderon 06-12-2020 Physician Order [id number]#1.0 0CD:127 [facility] Consent for Treatmenton Consent for Treatment [id number] 0CD:127 [facility] Discharge Instructionson Discharge Instructions [id number]#1. 00CD:[address] [facility] ED Clinical Summaryon 2020 ED Clinical Summary [id number] ED Clinical Summary Person Information Name: ANTOINETTE RECIO [facility] Age: 25 Years : 1995 Sex: Female Language: Guatemalan PCP: Isaiah BHAKTA MD Marital Status: Visit [...] 06/11/2020 12:47:55 06/11/2020 12:47:55 06/11/2020 12:47:55 ADDRESS: [address] [place] [id number] PHYS DOC NOTES: MEDICAL INFORMATION: Prescriptions Given: [...] up: With: Address: When: Jordan Bernardo [address] [place] [address] Business (1) 06/12/2020 3:15 PM With: Address: When: Isaiah BHAKTA [address] [place] [address] Business (1) In 3 days DIAGNOSIS: Fracture of left clavicle Normal [facility] ED Note-Physicianon 06-12-19 ED Note-Physician Basic Information Time Seen: Sara Burdick DO 06/11/2020 12:18 Chief Complaint Pt reports broken collar bone and stitches above eye. Went to [facility] sat and sent to [place]. Pt reports still in pain and was [...] left clavicle. She was taken from the [facility] transferred to a hospital in [place] where she was discharged 20 minutes later [...] see the patient tomorrow at [address] in [place] and she is treated with anti-inflammatories and [...] Jordan Bhakta 06/12/2020 03:15 PM EDT [address] [place] [address]- Business (1) Additional Instructions: Isaiah BHAKTA In 3 days [address] [place] [address]- Business (1) Additional Instructions: Problem List/Past Medical [...] Signed By: Nathaniel SIMEON, Marisa Self Normal [facility] Comment on above: Result Comment: Elec tronically Signed By: Sara Burdick DO\.br\Date and Time Signed: 06/11/20 12:39 EDT ED Patient Education Noteon 06-11-2020 ED Patient Education Note Normal [facility] ED Patient Summaryon 021 ED Patient Summary [place] [id number] Patient Discharge Instructions Person Information Name: ANTOINETTE RECIO Age: 25 Years Arrival Date: 06/11/2020 10:49:37 Discharge Diagnosis: Fracture of left clavicle Primary Care Physician: Isaiah BHAKTA MD Provider Information Primary Provider: Sara Burdick DO Advanced Guide Dog Mobility Instructor:None The exam and treatment you received in the Emergency Department were for an urgent problem and are not intended as complete care. It is important that you follow up with a doctor, nurse practitioner, or physician?s ice cream freezer assistant for ongoing care. If your symptoms [...] Instructions: With: Address: When: Jordan Bernardo [address] [place] [address] Business (1) 06/12/2020 3:15 PM With: Address: When: Isaiah BHAKTA [address] [place] [address] Business (1) In 3 days In the event that this physician does not participate in your insurance network, please consult with your insurance company to find a nearby participating provider. Patient Education Materials: A MESSAGE TO ALL PATIENTS REGARDING OPIOIDS PRESCRIPTION OPIOIDS: WHAT YOU NEED TO KNOW Prescription opioids can be used to help relieve lryjbxiz-vy-tjfswj pain and are often prescribed following a [...] care pro (more content not included)... Normal [facility] XR Chest 2 Viewson XR Chest [...] MD Transcribed by: MICHAEL Technologist: ABDULLAHI Tanner [facility] CBC AUTO DIFFon 06-10-2020 BASO # 0.1 103/ul Normal 0.0-0.1 [facility] Comment on above: Performed By: #### C BC #### [facility] [address] [place] [id number] Kinjal Sherine Basophils/100 WBC (Bld) 0.5 % Normal 0.2-2.0 [facility] Comment on above: Performed By: #### C BC #### [facility] [address] [place] [address] Kinjal Sherine EO # 0.2 103/ul Normal 0.0-0.7 [facility] Comment on above: Performed By: #### C BC #### [facility] [address] [place] [address] Kinjal Sherine Eosinophils/100 WBC (Bld) 1.8 % Normal 0.9-7.0 [facility] Comment on above: Performed By: #### C BC #### [facility] [address] [place] [address] Kinjal Sherine Erythrocyte distribution width (RBC) [Ratio] 13.7 % Normal 11.0-15.0 [facility] Comment on above: Performed By: #### C BC #### [facility] [address] [place] [address] Kinjal Sherine Hematocrit (Bld) [Volume fraction] 38.2 % Normal 36.0-48.0 [facility] Comment on above: Performed By: #### C BC #### [facility] [address] [place] [id number] Kinjal Sherine Hemoglobin (Bld) [Mass/Vol] 11.9 g/dL Critically low 12.0-16.0 [facility] Comment on above: Performed By: #### C BC #### [facility] [address] [place] [address] Kinjal Sherine IG # 0.03 10e3/ul Normal 0.00-0.03 [facility] Comment on above: Performed By: #### C BC #### [facility] [address] [place] [address] Kinjal Sherine IG % 0.3 % Normal 0.0-0.5 [facility] Comment on above: Performed By: #### C BC #### [facility] [address] [place] [address] Kinjal Sherine LYMPH # 1.8 103/ul Normal 1.2-3.8 [facility] Comment on above: Performed By: #### C BC #### [facility] [address] [place] [address] Kinjal Sherine Lymphocytes/100 WBC (Bld) 17.4 % Critically low 20.5-60.0 [facility] Comment on above: Performed By: #### C BC #### [facility] [address] [place] [address] Kinjal Sherine MANUAL DIFF REQ NO Normal [facility] Comment on above: Performed By: #### C BC #### [facility] [address] [place] [address] Kinjal Sherine MCH (RBC) [Entitic mass] 27.0 pg Normal 26.7-34.0 [facility] Comment on above: Performed By: #### C BC #### [facility] [address] [place] [address] Kinjalroverto Mckeonen MCHC (RBC) [Mass/Vol] 31.2 g/dL Normal 29.9-35.2 [facility] Comment on above: Performed By: #### C BC #### [facility] [address] [place] [address] Kinjal Sherine MCV (RBC) [Entitic vol] 86.8 fL Normal 81.0-99.0 [facility] Comment on above: Performed By: #### C BC #### [facility] [address] [place] [address] Kinjal Sherine MONO # 0.3 103/ul Normal 0.3-0.8 [facility] Comment on above: Performed By: #### C BC #### [facility] [address] [place] [address] Kinjal Basurto Monocytes/100 WBC (Bld) 3.2 % Normal 1.7-12.0 [facility] Comment on above: Performed By: #### C BC #### [facility] [address] [place] [address] Kinjal Basurto NEUT # 7.8 103/ul Critically high 1.4-6.5 [facility] Comment on above: Performed By: #### C BC #### [facility] [address] [place] [address] Kinjal Basurto Neutrophils/100 WBC (Bld) 76.8 % Critically high 43.0-75.0 [facility] Comment on above: Performed By: #### C BC #### [facility] [address] [place] [address] Kinjal Basurto Platelet mean volume (Bld) [Entitic vol] 9.1 fL Critically low 9.5-13.5 [facility] Comment on above: Performed By: #### C BC #### [facility] [address] [place], [place] [address] Kinjalroverto Mckeonen PLT 350 103/ul Normal 150-450 [facility] Comment on above: Performed By: #### C BC #### [facility] [address] [place] [address] Kinjal Sherine RBC 4.40 106/ul Normal 4.20-5.40 [facility] Comment on above: Performed By: #### C BC #### [facility] [address] [place], [place] [address] Kinjal Sherine WBC 10.1 103/ul Normal 4.0-11.0 [facility] Comment on above: Performed By: #### C BC #### [facility] [address] [place], [place] [address] Kinjal Sherine CT CHEST W CONon 06-10-2020 [...] ARELI RIVERA Date: 2020-06-10 03:43 Normal [facility] CT CSPINE WO CONon CT CSPINE WO [...] Haylie VILLAR Date: 2020-06-10 01:09 Normal [facility] CT HEAD WO CONon 06-10-2020 CT HEAD [...] ARELI RIVERA Date: 2020-06-10 01:01 Normal [facility] DRUG SCREEN RAPID (URINE)on 06-10-2020 AMP Negative Normal NEGATIVE [facility] Comment on above: Performed By: #### E RUR, DRUGRPD #### [facility] [address] [place] [address] Kinjal Sherine BAR Negative Normal NEGATIVE [facility] Comment on above: Performed By: #### E RUR, DRUGRPD #### [facility] [address] [place] [address] Kinjal Sherine BUP Negative Normal NEGATIVE [facility] Comment on above: Performed By: #### E RUR, DRUGRPD #### [facility] [address] [place] [address] Kinjal Sherine BZO Negative Normal NEGATIVE [facility] Comment on above: Performed By: #### E RUR, DRUGRPD #### [facility] [address] [place] [address] Kinjal Sherine CURTIS Negative Normal NEGATIVE [facility] Comment on above: Performed By: #### E RUR, DRUGRPD #### [facility] [address] [place] [address] Kinjal Sherine CUT-OFFS SEE BELOW Normal [facility] Comment on above: Result Comment: AMP (Amphetamine): [...] Performed By: #### Mitchell RUR DRUGRPD #### [facility] [address] [place] [address] Kinjal Sherine DRUG CUT HEADER DRUG CLASS TEST SYST EM CUT-OFF CONCENTRATIONS ARE FOLLOWS: Normal [facility] Comment on above: Performed By: #### E RUR, DRUGRPD #### [facility] [address] [place] [address] Kinjal Sherine mAMP Negative Normal NEGATIVE [facility] Comment on above: Performed By: #### Mitchell RUR, DRUGRPD #### [facility] [address] [place] [address] Kinjal Sherine MTD Negative Normal NEGATIVE [facility] Comment on above: Performed By: #### Mitchell RUR DRUGRPD #### [facility] [address] [place] [address] Kinjal Sherine OPI Positive Abnormal NEGATIVE [facility] Comment on above: Performed By: #### Mitchell RUR, DRUGRPD #### [facility] [address] [place] [address] Kinjal Sherine OXY Negative Normal NEGATIVE [facility] Comment on above: Performed By: #### Mitchell RUR, DRUGRPD #### [facility] [address] [place] [address] Kinjal Sherine PCP Negative Normal NEGATIVE [facility] Comment on above: Performed By: #### E RUR, DRUGRPD #### [facility] [address] [place] [address] Kinjal Sherine PPX Negative Normal NEGATIVE [facility] Comment on above: Performed By: #### Mitchell RUR, DRUGRPD #### [facility] [address] [place] [address] Kinjal Sherine TCA Negative Normal NEGATIVE [facility] Comment on above: Performed By: #### E RUR, DRUGRPD #### [facility] [address] [place] [address] Kinjal Sherine THC Negative Normal NEGATIVE [facility] Comment on above: Performed By: #### E RUR, DRUGRPD #### [facility] [address] [place] [address] Kinjal Basurto ER URINE PROFILEon 1 Bilirubin Ql (U) Negative Normal NEGATIVE [facility] Comment on above: Performed By: #### E RUR, DRUGRPD #### [facility] Laboratory [address] [place] [address] Kinjal Sherine Clarity (U) CLEAR Normal CLEAR [facility] Comment on above: Performed By: #### E RUR, DRUGRPD #### [facility] [address] [place] [address] Kinjal Sherine Color (U) LT. YELLOW Normal YELLOW [facility] Comment on above: Performed By: #### E RUR, DRUGRPD #### [facility] [address] [place] [address] Kinjal Basurto ERUAHD A micrscopic examination will be performed if indicated. Normal [facility] Comment on above: Performed By: #### E RUR, DRUGRPD #### [facility] [address] [place] [address] Kinjal Sherine Glucose Ql (U) Negative Normal NEGATIVE [facility] Comment on above: Performed By: #### E RUR, DRUGRPD #### [facility] [address] [place] [address] Kinjal Sherine Hemoglobin Ql (U) Negative Normal NEGATIVE [facility] Comment on above: Performed By: #### E RUR, DRUGRPD #### [facility] [address] [place] [address] Kinjal Sherine Ketones Ql (U) Negative Normal NEGATIVE [facility] Comment on above: Performed By: #### E RUR, DRUGRPD #### [facility] [address] [place] [address] Kinjal Sherine LEUKOCYTES Negative Normal NEGATIVE [facility] Comment on above: Performed By: #### E RUR, DRUGRPD #### [facility] [address] [place] [address] Kinajl Basurto Nitrite Ql (U) Negative Normal NEGATIVE [facility] Comment on above: Performed By: #### Mitchell PETERSEN DRUGCARLOS A #### [facility] [address] [place] [address] Kinjal Basurto pH (U) 7.5 [pH] Normal 5-9 [facility] Comment on above: Performed By: #### Mitchell PETERSEN DRUGHARRYD #### [facility] [address] [place] [address] Kinjal Basurto SPEC GRAVITY 1.010 Normal 1.005-<=1.02 5 [facility] Comment on above: Performed By: #### Mitchell PETERSEN DRUGCARLOS A #### [facility] [address] [place] [address] Kinjal Basurto UA PROTEIN Negative Normal NEGATIVE/ TRACE [facility] Comment on above: Performed By: #### Mitchell PETERSEN DRUGCARLOS A #### [facility] [address] [place] [address] Kinjal Basurto UR MICRO IND NOT INDICATED Normal [facility] Comment on above: Performed By: #### Mitchell PETERSEN DRUGCARLOS A #### [facility] [address] [place] [address] Kinjal Basurto Urobilinogen Qn (U) 0.2 {Jazmine'U}/dL Normal 0.2 - 1. 0 [facility] Comment on above: Performed By: #### Mitchell PETERSEN DRUGHARRYD #### [facility] [address] [place] [address] Kinjal Basurto ETHANOL (BLD ALC)on 06-11-19 21 ALC NOTE NOTE: 80 mg/dl is th e legal limit for a blood alcohol level Normal [facility] Comment on above: Performed By: #### E TH ####[facility] [address] [address]Kinjal Basurto Ethanol [Mass/Vol] 200 mg/dL Normal [facility] Comment on above: Performed By: #### E TH ####[facility] [address] [place] [address] [place], [place] [address]Gerroverto Basurto PROF 14(COMP METB)on 021 Albumin [Mass/Vol] 3.8 g/dL Normal 3.5-5.0 [facility] Comment on above: Performed By: #### C MP #### [facility] [address] [id number] Kinjal Sherine Albumin/Globulin [Mass ratio] 1.2 {ratio} Normal [facility] Comment on above: Performed By: #### C MP #### [facility] [address] [place], [place] [phone] Kinjal Sherine ALP [Catalytic activity/Vol] 54 U/L Normal 38-126 [facility] Comment on above: Performed By: #### C MP #### [facility] [address] [place] [address] Kinjal Sherine ALT [Catalytic activity/Vol] 19 U/L Normal 9-52 [facility] Comment on above: Performed By: #### C MP #### [facility] [address] [address] Kinjal Sherine Anion gap [Moles/Vol] 12.2 mmol/L Normal [facility] Comment on above: Performed By: #### C MP #### [facility] [address] [place] [address] Kinjal Sherine AST [Catalytic activity/Vol] 13 U/L Critically low 14-36 [facility] Comment on above: Performed By: #### C MP #### [facility] [address] [place] [address] Kinjal Sherine Bilirubin [Mass/Vol] 0.3 mg/dL Normal 0.2-1.3 [facility] Comment on above: Performed By: #### C MP #### [facility] [address] [place], [place] [phone] Kinjal Sherine Calcium [Mass/Vol] 8.4 mg/dL Normal 8.4-10.2 [facility] Comment on above: Performed By: #### C MP #### [facility] [address] [place], [place] [phone] Kinajl Sherine Chloride [Moles/Vol] 109 mmol/L Critically high 98-107 [facility] Comment on above: Performed By: #### C MP #### [facility] [address] [phone] Kinjal Sherine CO2 [Moles/Vol] 27.5 mmol/L Normal 22.0-30.0 [facility] Comment on above: Performed By: #### C MP #### [facility] [address] [place], [place] [address] Kinjal Sherine Creatinine [Mass/Vol] 0.73 mg/dL Normal 0.52-1.04 [facility] Comment on above: Performed By: #### C MP #### [facility] [address] [place], [place] [address] Kinjal Sherine EGFR-AF TAJIK >60 Normal >=60 [facility] Comment on above: Performed By: #### C MP #### [facility] [address] [place] [address] Kinjal Sherine EGFR-NON AF TAJIK >60 Normal >=60 [facility] Comment on above: Performed By: #### C MP #### [facility] [address] [place] [address] Kinjal Sherine Globulin (S) [Mass/Vol] 3.3 g/dL Normal T [facility] [place] Comment on above: Performed By: #### C MP #### [facility] [address] [place] [address] Kinjal Sherine Glucose [Mass/Vol] 85 mg/dL Normal 74-106 [facility] Comment on above: Performed By: #### C MP #### [facility] [address] [place] [address] Kinjal Sherine Potassium [Moles/Vol] 3.7 mmol/L Normal 3.4-5.0 [facility] Comment on above: Performed By: #### C MP #### [facility] [address] [place], [place] [address] Kinjal Sherine Protein [Mass/Vol] 7.1 g/dL Normal 6.1-8.2 [facility] Comment on above: Performed By: #### C MP #### [facility] [address] [place], [place] [address] Kinjal Basurto Sodium [Moles/Vol] 145 mmol/L Normal 137-145 [facility] Comment on above: Performed By: #### C MP #### [facility] [address] [place], [place] [address] Kinjal Basurto Urea nitrogen [Mass/Vol] 9.0 mg/dL Normal 7.0-17.0 [facility] Comment on above: Performed By: #### C MP #### [facility] [address] [address] Kinjal Basurto Urea nitrogen/Creatinine [Mass ratio] 12.3 mg/mg Normal [facility] Comment on above: Performed By: #### C MP #### [facility] [address] [address] Kinjal Basurto Rapid Covid-19 PCR (CVDRPD)o n 06-10-2020 SARS-CoV-2 (COVID-19) RNA AIDEE+probe Ql (Unsp spec) Not detected Normal NOT DETECTED [facility] Comment on above: Result Comment: This test is not yet approved or cleared by the [place] Food and Drug Administration (FDA). This test was developed by [employer], [place], [place]. The performance characteristics of this test were validated by [facility]. The results are not intended to be used as the sole means for clinical diagnosis or patient management decisions. [facility] is authorized under Clinical Laboratory Improvement Amendments (CLIA) to perform high- complexity testing. When diagnostic testing is negative, the possibility of a false negative should be considered in the context of a patient's recent exposures and the presence of clinical signs and symptoms consistent with SARS-CoV-2. Performed By: #### C VDRPD ####[facility] [address] [place], [place] [address]Ltrntj Karen XR CLAVICLE LTon 06-10-2020 XR CLAVICLE [...] by: Haylie VILLAR Date: 2020-06-10 01:50 Normal [facility] XR SHOULDER LT 2V or >on [...] by: BENNY ARMSTRONG Date: 2020-06-10 01:45 Normal [facility] Cult, Bloodon 2018 Cult, Blood Specimen Description .BLOOD Special Requests RT HAND Culture NO GROWTH 6 DAYS Report Status FINAL 2018 [facility] Comment on above: Performed By: #### B CUL2 ####[facility] [place], [place] [id number] lab Director: Reed Mckeon MD [facility],Bloodon 2018 Cult,Blood Specimen Description .BLOOD Special Requests L ARM 10CC Culture NO GROWTH 6 DAYS Report Status FINAL 2018 [facility] Comment on above: Performed By: #### B C ####[facility] [place], [place] [id number] lab Director: Reed Mckeon MD Basic Metab w/rfx MGon 04-16 (cont.) [facility] Comment on above: Result Comment: Aver age GFR for 20-29 years old: 116 mL/min/1.73sq m Chronic Kidney Disease: <60 mL/min/1.73sq m Kidney failure: <15 mL/min/1.73sq m eGFR calculated using average adult body mass. Additional eGFR calculator available at: http://www.skedge.me.NetTalon/multiple_crcl_2012.htm Performed By: #### C BC, BMPX ####[facility] [address] [place] [address] Lab Director: Reed Mckeon MD Anion gap molar conc 13 mmol/L Normal 9-17 [facility] Comment on above: Performed By: #### C BC, BMPX ####[facility] [address] [place], [place] [phone] Director: Reed Mckeon MD Calcium mass conc 8.7 mg/dL Normal 8.6-10.4 [facility] [place] Comment on above: Performed By: #### C BC, BMPX ####[facility] [address] [place], [place] [phone] Director: Reed Mckeon MD Chloride molar conc 110 mmol/L High 98-107 [facility] Comment on above: Performed By: #### C BC, BMPX ####[facility] [address] [place], [place] [phone] Director: Reed Mckeon MD CO2 molar conc 18 mmol/L Low 20-31 [facility] Comment on above: Performed By: #### C BC, BMPX ####[facility] [address] [place], [place] [phone] Director: Reed Mckeon MD Creatinine mass conc 0.49 mg/dL Low 0.50-0.90 [facility] Comment on above: Performed By: #### C BC, BMPX ####[facility] [address] [place], [place] [phone] Director: Reed Mckeon MD GFR, Amer >60 Normal >60 [facility] Comment on above: Performed By: #### C BC, BMPX ####[facility] [address] [place] [address] Lab Director: Reed Mckeon MD GFR,non Amer >60 Normal >60 [facility] Comment on above: Performed By: #### C BC, BMPX ####[facility] [address] [place], [place] [phone] Director: Reed Mckeon MD Glucose mass conc 74 mg/dL Normal 70-99 [facility] [place] Comment on above: Performed By: #### C BC, BMPX ####[facility] [address] [place] [address] Lab Director: Reed Mckeon MD Potassium molar conc 4.2 mmol/L Normal 3.7-5.3 [facility] Comment on above: Performed By: #### C BC, BMPX ####[facility] [address] [place], [place] [phone] Director: Reed Mckeon MD Sodium molar conc 141 mmol/L Normal 135-144 [facility] [place] Comment on above: Performed By: #### C BC, BMPX ####[facility] [address] [place], [place] [phone] Director: Reed Mckeon MD Urea nitrogen mass conc 6 mg/dL Normal 6-20 [facility] Comment on above: Performed By: #### C BC, BMPX ####[facility] [address] [place], [place] [phone] Director: Reed Mckeon MD BUN/CRE Ratio NOT REPORTED Normal 9-20 [facility] Comment on above: Performed By: #### C BC, BMPX ####[facility] [address] [place], [place] [phone] Director: Reed Mckeon MD Staging: NOT REPORTED Normal [facility] Comment on above: Performed By: #### C BC, BMPX ####[facility] [address] [place] [address] lab Director: Reed Mckeon MD CBCon 04-16-2018 Erythrocyte distribution width Ratio (RBC) 12.9 % Normal 11.8-14.4 [facility] Comment on above: Performed By: #### C BC, BMPX ####[facility] [address] [place] [address] lab Director: Reed Mckeon MD Hematocrit Volume Fraction (Bld) 33.9 % Low 36.3-47.1 [facility] Comment on above: Performed By: #### C BC, BMPX ####[facility] [address] [place] [address] lab Director: Reed Mckeon MD Hemoglobin mass conc (Bld) 10.6 g/dL Low 11.9-15.1 [facility] Comment on above: Performed By: #### C BC, BMPX ####[facility] [address] [place], [place] [phone] Director: Reed Mckeon MD MCH Entitic mass (RBC) 28.3 pg Normal 25.2-33.5 [facility] Comment on above: Performed By: #### C BC, BMPX ####[facility] [address] [place] [address] Lab Director: Reed Mckeon MD MCHC mass conc (RBC) 31.3 g/dL Normal 28.4-34.8 [facility] Comment on above: Performed By: #### C BC, BMPX ####[facility] [address] [place], [place] [phone] Director: Reed Mckeon MD MCV Entitic volume (RBC) 90.6 fL Normal 82.6-102.9 [facility] Comment on above: Performed By: #### C BC, BMPX ####[facility] [address] [place] [address] Lab Director: Reed Mckeon MD NRBC Automated 0.0 per 100 WBC Normal 0.0 [facility] Comment on above: Performed By: #### C BC, BMPX ####[facility] [address] [place] [address] Lab Director: Reed Mckeon MD Platelet mean volume Entitic volume (Bld) 9.8 fL Normal 8.1-13.5 [facility] Comment on above: Performed By: #### C BC, BMPX ####[facility] [address] [place] [address] Lab Director: Reed Mckeon MD Platelets #/vol (Bld) 257 10*3/uL Normal 138-453 [facility] Comment on above: Performed By: #### C SARWAT, BMPX ####[facility] [address] [place] [address] [phone] Director: Reed Mckeon MD RBC #/vol (Bld) 3.74 10*6/uL Low 3.95-5.11 [facility] [place] Comment on above: Performed By: #### C SARWAT, BMPX ####[facility] [address] [place] [address] Lab Director: Reed Mckeon MD WBC #/vol (Bld) 5.8 10*3/uL Normal 3.5-11.3 [facility] Comment on above: Performed By: #### C BC, BMPX ####[facility] [address] [place] [address] [phone] Director: Reed Mckeon MD Cult,Respiratoryon 9 Cult,Respiratory Specimen Description .EXPECTORATED SPUTUM Special Requests NOT REPORTED Direct Exam >10 EPITHELIAL CELLS/LPF: SPECIMEN IS CONTAMINATED WITH ORAL PHARYNGEAL YOGESH AND IS UNACCEPTABLE FOR BACTERIAL CULTURE. PLEASE SUBMIT ANOTHER SPECIMEN. EVERETTE Mathews NOTIFIED Culture NOT REPORTED Report Status FINAL 04/16/2018 Normal [facility] Comment on above: Performed By: #### R ESPC ####[address] [place] [address] Lab Director: Reed Mckeon MD Troponinon 04-16-2018 Troponin I.cardiac mass conc ng/mL Normal 0-14 [facility] Comment on above: Result Comment: High Sensitivity Troponin values cannot be compared with other Troponin methodologies. Patients with high levels of Biotin oral intake (i.e >5mg/day) may have falsely decreased Troponin levels. Samples collected within 8 hours of biotin intake may require additional information for diagnosis. Performed By: #### T ROPI ####[facility] [place] [address] lab Director: Reed Mckeon MD Gram Stainon 04-15-2018 Microscopic observation Gram stain Nom (Unsp spec) Specimen Description .EXPECTORATED SPUTUM Special Requests NOT REPORTED Direct Exam DUPLICATE ORDER Report Status FINAL 04/15/2018 Normal [facility] Comment on above: Performed By: #### P PPVS #### [facility] [address] [place] [address] HCG Screen, Bloodon 04-16-19 19 HCG Qn Negative Normal NEG [facility] Comment on above: Result Comment: Spec imens with hCG levels near the threshold of the test (25 mIU/mL) may give a negative or indeterminate result. In such cases, another test should be performed with a new specimen in 48-72 hours. If early is suspected clinically in this setting, correlation with quantitative serum b-hCG level is suggested. [facility] has confirmed the use of plasma for this test. This has not been cleared or approved by the [place]. Food and Drug Administration. The FDA has determined that such clearance is not necessary. Performed By: #### P PPVS #### [facility] [address] [place], [place] [phone] Legionella Ag, Uron 04-16-19 19 Legionella Ag, [...] of this test. Report Status FINAL 04/15/2018 [facility] Comment on above: Performed By: #### U LAG ####[address] [phone] Director: Rede Mckeon MD [facility] Viral Panelon 9 Adenovirus Not Detected Normal [facility] Comment on above: Performed By: #### P PPVS #### [address] [address] Bordetella pertussis Not Detected Normal [facility] Comment on above: Performed By: #### P PPVS #### [address] [address] Chlamyd.pneumoniae Not Detected Normal [facility] Comment on above: Performed By: #### P PPVS #### [address] [address] Coronavirus 229E Not Detected Normal [facility] Comment on above: Performed By: #### P PPVS #### [address] [address] Coronavirus HKU1 Not Detected Normal [facility] Comment on above: Performed By: #### P PPVS #### [address] [address] Coronavirus NL63 Not Detected Normal [facility] Comment on above: Performed By: #### P PPVS #### [address] [address] Coronavirus OC43 Not Detected Normal [facility] Comment on above: Performed By: #### P PPVS #### [address] [address] Human Metapneumo Not Detected Normal [facility] Comment on above: Performed By: #### P PPVS #### [address] [address] Influenza A Not Detected Normal [facility] Comment on above: Performed By: #### P PPVS #### [address] [address] Influenza B Not Detected Normal [facility] Comment on above: Performed By: #### P PPVS #### [address] [address] Mycoplas.pneumoniae Not Detected Normal [facility] Comment on above: Result Comment: Perf ormed by multiplexed nucleic acid assay. Performed By: #### P PPVS #### [address] [address] Parainfluenza [address] [facility] Comment on above: Performed By: #### P PPVS #### [address] [address] Parainfluenza [address] [facility] Comment on above: Performed By: #### P PPVS #### [address] [address] Parainfluenza [address] [facility] Comment on above: Performed By: #### P PPVS #### [facility] [employer] [address] [place] [address] Parainfluenza [address] [facility] Comment on above: Performed By: #### P PPVS #### [address] [address] Resp Syncytial Virus Not Detected Normal [facility] Comment on above: Performed By: #### P PPVS #### [address] [address] Rhino/Enterovirus Not Detected Normal [facility] Comment on above: Performed By: #### P PPVS #### [address] [address] Influenza A H1 NOT REPORTED Normal [facility] Comment on above: Performed By: #### P PPVS #### [address] [address] Influenza A H1-2009 NOT REPORTED Normal [facility] Comment on above: Performed By: #### P PPVS #### [address] [address] Influenza A H3 NOT REPORTED Normal [facility] Comment on above: Performed By: #### P PPVS #### [address] [address] Source: .NASOPHARYNGEAL SWAB Normal [facility] Comment on above: Performed By: #### P PPVS #### [address] [address] Strep pneum Ag,CSF/Uron 03-0 Strep pneum Ag,CSF/Ur Specimen Descripti on .CLEAN CATCH URINE Special Requests NOT REPORTED Direct Exam NEGATIVE: Strep pneumoniae antigen not detected Report Status FINAL 04/15/2018 Normal [facility] Comment on above: Performed By: #### S PAG ####[address] [address] Lab Director: Reed Mckeon MD Troponinon 04-15-2018 Troponin I.cardiac mass conc NOT REPORTED Normal <0.03 [facility] Comment on above: Performed By: #### T ROPI ####[facility] [address] [place], [place] [id number] Lab Director: Reed Mckeon MD Troponin I.cardiac mass conc ng/mL Normal 0-14 [facility] Comment on above: Result Comment: High Sensitivity Troponin values cannot be compared with other Troponin methodologies. Patients with high levels of Biotin oral intake (i.e >5mg/day) may have falsely decreased Troponin levels. Samples collected within 8 hours of biotin intake may require additional information for diagnosis. Performed By: #### P PPVS #### [facility] [address] [place], [place] [id number] Troponin I.cardiac mass conc NOT REPORTED Normal <0.03 [facility] Comment on above: Performed By: #### P PPVS #### [facility] [address] [place], [place] [id number] XR CHEST PORTABLEon 04-16-19 XR CHEST PORTABLE EXAMINATION: SINGLE XRAY VIEW OF THE CHEST 04/15/2018 3:19 pm COMPARISON: 04/02/2018 HISTORY: ORDERING SYSTEM PROVIDED HISTORY: transferred from outlying facility due to PNA. POD#3 s/p lap sleeve gastrectomy. TECHNOLOGIST PROVIDED HISTORY: transferred from [facility] due to PNA. POD#3 s/p lap sleeve [...] Brando Agustin MD 04/15/18 Final result Normal [facility] [place] ESOPHAGRAMon 04-14-2018 [place] ESOPHAGRAM EXAMINATION: SINGLE [...] persistent dysphagia and burning sensation. 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 Additional eGFR calculator available at: http://www.skedge.me.com/multiple_crcl_2012.htm Performed By: #### P PPVS #### [facility] [address] [place] [address] Anion gap molar conc 11 mmol/L Normal 9-17 [facility] Comment on above: Performed By: #### P PPVS #### [facility] [address] [place] [address] Calcium mass conc 8.8 mg/dL Normal 8.6-10.4 [facility] Comment on above: Performed By: #### P PPVS #### [address] [address] Chloride molar conc 104 mmol/L Normal 98-107 [facility] Comment on above: Performed By: #### P PPVS #### [address] [address] CO2 molar conc 24 mmol/L Normal 20-31 [facility] Comment on above: Performed By: #### P PPVS #### [facility] [address] [place] [address] Creatinine mass conc 0.68 mg/dL Normal 0.50-0.90 [facility] Comment on above: Performed By: #### P PPVS #### [address] [address] GFR, Amer >60 Normal >60 [facility] Comment on above: Performed By: #### P PPVS #### [facility] [address] [place] [address] GFR,non Amer >60 Normal >60 [facility] Comment on above: Performed By: #### P PPVS #### [address] [address] Glucose mass conc 90 mg/dL Normal 70-99 [facility] Comment on above: Performed By: #### P PPVS #### [address] [address] Potassium molar conc 4.4 mmol/L Normal 3.7-5.3 [facility] Comment on above: Performed By: #### P PPVS #### [address] [address] Sodium molar conc 139 mmol/L Normal 135-144 [facility] Comment on above: Performed By: #### P PPVS #### [address] [address] Urea nitrogen mass conc 5 mg/dL Low 6-20 M [facility] Comment on above: Performed By: #### P PPVS #### [address] [address] BUN/CRE Ratio NOT REPORTED Normal 9-20 [facility] Comment on above: Performed By: #### P PPVS #### [address] [address] Staging: NOT REPORTED Normal [facility] Comment on above: Performed By: #### P PPVS #### [address] [address] CBCon 04-13-2018 Erythrocyte distribution width Ratio (RBC) 12.9 % Normal 11.8-14.4 [facility] Comment on above: Performed By: #### P PPVS #### [address] [address] Hematocrit Volume Fraction (Bld) 36.8 % Normal 36.3-47.1 [facility] Comment on above: Performed By: #### P PPVS #### [address] [address] Hemoglobin mass conc (Bld) 11.7 g/dL Low 11.9-15.1 [facility] Comment on above: Performed By: #### P PPVS #### [address] [address] MCH Entitic mass (RBC) 28.3 pg Normal 25.2-33.5 [facility] Comment on above: Performed By: #### P PPVS #### [address] [address] MCHC mass conc (RBC) 31.8 g/dL Normal 28.4-34.8 [facility] Comment on above: Performed By: #### P PPVS #### [address] [address] MCV Entitic volume (RBC) 88.9 fL Normal 82.6-102.9 [facility] Comment on above: Performed By: #### P PPVS #### [address] [address] NRBC Automated 0.0 per 100 WBC Normal 0.0 [facility] Comment on above: Performed By: #### P PPVS #### [address] [address] Platelet mean volume Entitic volume (Bld) 10.1 fL Normal 8.1-13.5 [facility] Comment on above: Performed By: #### P PPVS #### [address] [address] Platelets #/vol (Bld) 306 10*3/uL Normal 138-453 [facility] Comment on above: Performed By: #### P PPVS #### [address] [address] RBC #/vol (Bld) 4.14 10*6/uL Normal 3.95-5.11 [facility] Comment on above: Performed By: #### P PPVS #### [address] [address] WBC #/vol (Bld) 8.1 10*3/uL Normal 3.5-11.3 [facility] Comment on above: Performed By: #### P PPVS #### [address] [address] [place] ESOPHAGRAMon 03-05-2019 [place] ESOPHAGRAM EXAMINATION: SINGLE [...] Jordan Mejia MD 04/13/18 Final result Normal [facility] Basic Metabolic Profon 04-12 (cont.) Normal [facility] Comment on above: Result Comment: Aver age GFR for 20-29 years old: 116 mL/min/1.73sq m Chronic Kidney Disease: <60 mL/min/1.73sq m Kidney failure: <15 mL/min/1.73sq m eGFR calculated using average adult body mass. Additional eGFR calculator available at: http://www.skedge.me.NetTalon/multiple_crcl_2012.htm Performed By: #### C SARWAT, BMP #### [facility] [address] [place] [address] [phone] Pack [employer] Operator: Reed Mckeon MD Anion gap molar conc 16 mmol/L Normal 9-17 [facility] Comment on above: Performed By: #### C SARWAT, BMP #### [facility] [address] [place], [place] [phone] [employer] Operator: Reed Mckeon MD Calcium mass conc 8.9 mg/dL Normal 8.6-10.4 [facility] Comment on above: Performed By: #### C BC, BMP #### [facility] [address] [place] [address] [phone] [employer] Operator: Reed Mckeon MD Chloride molar conc 108 mmol/L High 98-107 [facility] Comment on above: Performed By: #### C BC, BMP #### [address] [address] [employer] Operator: Reed Mckeon MD CO2 molar conc 19 mmol/L Low 20-31 [facility] Comment on above: Performed By: #### C BC, BMP #### [facility] [address] [place] [address] [employer] Operator: Reed Mckeon MD Creatinine mass conc 0.62 mg/dL Normal 0.50-0.90 [facility] Comment on above: Performed By: #### C BC, BMP #### [address] [address] [employer] Operator: Reed Mckeon MD GFR, Amer >60 Normal >60 [facility] Comment on above: Performed By: #### C BC, BMP #### [address] [address] [employer] Operator: Reed Mckeon MD GFR,non Amer >60 Normal >60 [facility] Comment on above: Performed By: #### C BC, BMP #### [address] [address] [employer] Operator: Reed Mckeon MD Glucose mass conc 124 mg/dL High 70-99 [facility] Comment on above: Performed By: #### C BC, BMP #### [address] [address] [employer] Operator: Reed Mckeon MD Potassium molar conc 4.2 mmol/L Normal 3.7-5.3 [facility] Comment on above: Performed By: #### C BC, BMP #### [facility] [address] [place] [address] [employer] Operator: Reed Mckeon MD Sodium molar conc 143 mmol/L Normal 135-144 [facility] Comment on above: Performed By: #### C BC, BMP #### [facility] [address] [place] [address] [employer] Operator: Reed Mckeon MD Urea nitrogen mass conc 8 mg/dL Normal 6-20 M [facility] Comment on above: Performed By: #### C BC, BMP #### [facility] [address] [place] [phone] [employer] Operator: Reed Mckeon MD BUN/CRE Ratio NOT REPORTED Normal - [facility] Comment on above: Performed By: #### C BC, BMP #### [address] [address] [employer] Operator: Reed Mckeon MD Staging: NOT REPORTED Normal [facility] Comment on above: Performed By: #### C BC, BMP #### [address] [address] [employer] Operator: Reed Mckeon MD CBCon 04-12-2018 Erythrocyte distribution width Ratio (RBC) 12.6 % Normal 11.8-14.4 [facility] Comment on above: Performed By: #### C BC, BMP #### [address] [address] [employer] Operator: Reed Mckeon MD Hematocrit Volume Fraction (Bld) 44.2 % Normal 36.3-47.1 [facility] Comment on above: Performed By: #### C BC, BMP #### [address] [address] [employer] Operator: Reed Mckeon MD Hemoglobin mass conc (Bld) 13.8 g/dL Normal 11.9-15.1 [facility] Comment on above: Performed By: #### C BC, BMP #### [address] [address] [employer] Operator: Reed Mckeon MD MCH Entitic mass (RBC) 28.4 pg Normal 25.2-33.5 [facility] Comment on above: Performed By: #### C BC, BMP #### [address] [address] [employer] Operator: Reed Mckeon MD MCHC mass conc (RBC) 31.2 g/dL Normal 28.4-34.8 [facility] Comment on above: Performed By: #### C BC, BMP #### [address] [address] [employer] Operator: Reed Mckeon MD MCV Entitic volume (RBC) 90.9 fL Normal 82.6-102.9 [facility] Comment on above: Performed By: #### C BC, BMP #### [facility] [address] [place] [address] Pack [employer] Operator: Reed Mckeon MD NRBC Automated 0.0 per 100 WBC Normal 0.0 [facility] Comment on above: Performed By: #### C BC, BMP #### [facility] [address] [place] [phone] [employer] Operator: Reed Mckeon MD Platelet mean volume Entitic volume (Bld) 10.2 fL Normal 8.1-13.5 [facility] Comment on above: Performed By: #### C BC, BMP #### [facility] [address] [place] [address] Pack [employer] Operator: Reed Mckeon MD Platelets #/vol (Bld) 299 10*3/uL Normal 138-453 [facility] Comment on above: Performed By: #### C BC, BMP #### [facility] [address] [place] [address] [employer] Operator: Reed Mckeon MD RBC #/vol (Bld) 4.86 10*6/uL Normal 3.95-5.11 [facility] Comment on above: Performed By: #### C BC, BMP #### [facility] [address] [place] [phone] [employer] Operator: Reed Mckeon MD WBC #/vol (Bld) 18.0 10*3/uL High 3.5-11.3 [facility] Comment on above: Performed By: #### C BC, BMP #### [facility] [address] [place] [address] Pack [employer] Operator: Reed Mckeon MD Surgical Pathologyon 019 Surgical Pathology (NOTE) [id number] [facility] [address] [place] [phone] SURGICAL PATHOLOGY CONSULTATION Patient Name: ANTOINETTE RECIO [facility] Rec: [id number] Path Number: [id number] Collected: 04/12/2018 Received: 04/12/2018 Reported: 04/13/2018 13:37 [...] with no areas of granularity or masses. Under Sheriff sections 1cs. tm Microscopic Description The gastric mucosa shows intact architecture and no active or chronic inflammation. There is no histological evidence for Helicobacter. There is no intestinal metaplasia or dysplasia. The submucosa and muscularis propria show no histologic abnormality. Normal [facility] Comment on above: Performed By: #### P PPVS #### [facility] [address] [place] [address] [phone] Nicotineon 04-08-2018 [id number] <2 Normal [facility] Comment on above: Performed By: #### C BC, PT, PTT, BMP #### [facility] [place] [address] [employer] Operator: Reed Mckeon MD #### ANICOT #### [facility] [address] [place] [address] [phone] [employer] Operator: Eduin Alvarez MD Cotinine <2 Normal [facility] Comment on above: Performed By: #### C BC, PT, PTT, BMP #### [facility] [address] [place] [address] [phone] [employer] Operator: Reed Mckeon MD #### ANICOT #### [facility] [address] [address] [employer] Operator: Eduin Alvarez MD Nicotine <2 Normal [facility] Comment on above: Result Comment: (NOT E) [...] positive. Test developed and characteristics determined by [facility]. See Compliance Statement B: [email or web address] Performed by [facility], [address] [place] [id number] [email or web address], Eduin Alvarez MD, Lab. Director Performed By: #### C BC, PT, PTT, BMP #### [address] [address] [employer] Operator: Reed Mckeon MD #### ANICOT #### [facility] [address] [place] [address] [employer] Operator: Eduin Alvarez MD APTTon 04-02-2018 aPTT Coag time (Bld) 24.7 s Normal 20.5-30.5 [facility] Comment on above: Performed By: #### C BC, PT, PTT, BMP #### [address] [address] [employer] Operator: Reed Mckeon MD #### ANICOT #### [facility] [address] [place] [address] [employer] Operator: Eduin Alvarez MD Basic Metabolic Profon 04-02 (cont.) Normal [facility] Comment on above: Result Comment: Aver age GFR for 20-29 years old: 116 mL/min/1.73sq m Chronic Kidney Disease: <60 mL/min/1.73sq m Kidney failure: <15 mL/min/1.73sq m eGFR calculated using average adult body mass. Additional eGFR calculator available at: http://www.skedge.me.NetTalon/multiple_crcl_2012.htm Performed By: #### C BC, PT, PTT, BMP #### [address] [address] [employer] Operator: Reed Mckeon MD #### ANICOT #### [facility] [address] [place] [address] [employer] Operator: Eduin Alvarez MD Anion gap molar conc 15 mmol/L Normal 9-17 [facility] Comment on above: Performed By: #### C BC, PT, PTT, BMP #### [facility] [address] [place] [phone] [employer] Operator: Reed Mckeon MD #### ANICOT #### [facility] [address] [place], [place] [phone] [employer] Operator: Eduin Alvarez MD Calcium mass conc 9.6 mg/dL Normal 8.6-10.4 [facility] Comment on above: Performed By: #### C BC, PT, PTT, BMP #### [address] [address] [employer] Operator: Reed Mckeon MD #### ANICOT #### [facility] [address], [place] [phone] Pack [employer] Operator: Eduin Alvarez MD Chloride molar conc 102 mmol/L Normal 98-107 [facility] Comment on above: Performed By: #### C BC, PT, PTT, BMP #### [address] [address] [employer] Operator: Reed Mckeon MD #### ANICOT #### [facility] [address], [place] [phone] [employer] Operator: Eduin Alvarez MD CO2 molar conc 23 mmol/L Normal 20-31 [facility] Comment on above: Performed By: #### C BC, PT, PTT, BMP #### [address] [address] [employer] Operator: Reed Mckeon MD #### ANICOT #### [facility] [address], [place] [phone] Pack [employer] Operator: Eduin Alvarez MD Creatinine mass conc 0.62 mg/dL Normal 0.50-0.90 [facility] Comment on above: Performed By: #### C BC, PT, PTT, BMP #### [address] [address] Pack [employer] Operator: Reed Mckeon MD #### ANICOT #### [facility] [address] [place] [address] [employer] Operator: Eduin Alvarez MD GFR, Amer >60 Normal >60 [facility] Comment on above: Performed By: #### C BC, PT, PTT, BMP #### [address] [address] [employer] Operator: Reed Mckeon MD #### ANICOT #### [facility] [address] [place] [address] [employer] Operator: Eduin Alvarez MD GFR,non Amer >60 Normal >60 [facility] Comment on above: Performed By: #### C BC, PT, PTT, BMP #### [address] [address] [employer] Operator: Reed Mckeon MD #### ANICOT #### [address] [phone] [employer] Operator: Eduin Alvarez MD Glucose mass conc 86 mg/dL Normal 70-99 [facility] Comment on above: Performed By: #### C BC, PT, PTT, BMP #### [address] [address] [employer] Operator: Reed Mckeon MD #### ANICOT #### [facility] [address] [place] [address] [employer] Operator: Eduin Alvarez MD Potassium molar conc 4.2 mmol/L Normal 3.7-5.3 [facility] Comment on above: Performed By: #### C BC, PT, PTT, BMP #### [address] [address] [employer] Operator: Reed Mckeon MD #### ANICOT #### [facility] [address] [place] [address] [employer] Operator: Eduin Alvarez MD Sodium molar conc 140 mmol/L Normal 135-144 [facility] Comment on above: Performed By: #### C BC, PT, PTT, BMP #### [address] [address] [employer] Operator: Reed Mckeon MD #### ANICOT #### [facility] [address] [place], [place] [phone] [employer] Operator: Eduin Alvarez MD Urea nitrogen mass conc 15 mg/dL Normal 6-20 M [facility] Comment on above: Performed By: #### C BC, PT, PTT, BMP #### [address] [phone] [employer] Operator: Reed Mckeon MD #### ANICOT #### [facility] [address] [place] [address] [phone] [employer] Operator: Eduin Alvarez MD BUN/CRE Ratio NOT REPORTED Normal 9-20 [facility] Comment on above: Performed By: #### C BC, PT, PTT, BMP #### [address] [phone] [employer] Operator: Reed Mckeon MD #### ANICOT #### [facility] [address] [place], [place] [phone] [employer] Operator: Eduin Alvarez MD Staging: NOT REPORTED Normal [facility] Comment on above: Performed By: #### C BC, PT, PTT, BMP #### [address] [address] [employer] Operator: Reed Mckeon MD #### ANICOT #### [facility] [address] [place], [place] [phone] [employer] Operator: Eduin Alvarez MD CBCon 04-02-2018 Erythrocyte distribution width Ratio (RBC) 12.0 % Normal 11.8-14.4 [facility] Comment on above: Performed By: #### C BC, PT, PTT, BMP #### [address] [phone] [employer] Operator: Reed Mckeon MD #### ANICOT #### [facility] [address] [place] [phone] [employer] Operator: Eduin Alvarez MD Hematocrit Volume Fraction (Bld) 41.3 % Normal 36.3-47.1 [facility] Comment on above: Performed By: #### C BC, PT, PTT, BMP #### [address] [phone] [employer] Operator: Reed Mckeon MD #### ANICOT #### [address] [phone] [employer] Operator: Eduin Alvarez MD Hemoglobin mass conc (Bld) 13.7 g/dL Normal 11.9-15.1 [facility] Comment on above: Performed By: #### C BC, PT, PTT, BMP #### [address] [phone] [employer] Operator: Reed Mckeon MD #### ANICOT #### [facility] [address] [place] [address] [phone] [employer] Operator: Eduin Alvarez MD MCH Entitic mass (RBC) 28.4 pg Normal 25.2-33.5 [facility] Comment on above: Performed By: #### C BC, PT, PTT, BMP #### [address] [phone] [employer] Operator: Reed Mckeon MD #### ANICOT #### [facility] [address] [place] [phone] [employer] Operator: Eduin Alvarez MD MCHC mass conc (RBC) 33.2 g/dL Normal 28.4-34.8 [facility] Comment on above: Performed By: #### C BC, PT, PTT, BMP #### [address] [phone] [employer] Operator: Reed Mckeon MD #### ANICOT #### [facility] [address] [place], [place] [phone] [employer] Operator: Eduin Alvarez MD MCV Entitic volume (RBC) 85.7 fL Normal 82.6-102.9 [facility] Comment on above: Performed By: #### C BC, PT, PTT, BMP #### [address] [phone] [employer] Operator: Reed Mckeon MD #### ANICOT #### [facility] [address], [place] [phone] [employer] Operator: Eduin Alvarez MD NRBC Automated 0.0 per 100 WBC Normal 0.0 [facility] Comment on above: Performed By: #### C BC, PT, PTT, BMP #### [address] [phone] [employer] Operator: Reed Mckeon MD #### ANICOT #### [facility] [address] [place], [place] [phone] [employer] Operator: Eduin Alvarez MD Platelet mean volume Entitic volume (Bld) 9.4 fL Normal 8.1-13.5 [facility] Comment on above: Performed By: #### C BC, PT, PTT, BMP #### [address] [phone] [employer] Operator: Reed Mckeon MD #### ANICOT #### [facility] [address] [place] [address] [employer] Operator: Eduin Alvarez MD Platelets #/vol (Bld) 392 10*3/uL Normal 138-453 [facility] Comment on above: Performed By: #### C BC, PT, PTT, BMP #### [facility] [address] [place] [address] [employer] Operator: Reed Mckeon MD #### ANICOT #### [facility] [address] [place] [address] [employer] Operator: Eduin Alvarez MD RBC #/vol (Bld) 4.82 10*6/uL Normal 3.95-5.11 [facility] Comment on above: Performed By: #### C BC, PT, PTT, BMP #### [facility] [address] [place] [address] [employer] Operator: Reed Mckeon MD #### ANICOT #### [facility] [address] [place], [place] [phone] [employer] Operator: Eduin Alvarez MD WBC #/vol (Bld) 10.4 10*3/uL Normal 3.5-11.3 [facility] Comment on above: Performed By: #### C BC, PT, PTT, BMP #### [facility] [address] [place] [phone] [employer] Operator: Reed Mckeon MD #### ANICOT #### [facility] [address] [place] [address] [employer] Operator: Eduin Alvarez MD PTon 04-02-2018 INR Coag RelTime (PPP) 1.0 {INR} Normal [facility] Comment on above: Result Comment: Therapeutic Range: Moderate Anticoagulant Intensity: INR = 2.0-3.0 High Anticoagulant Intensity: INR = 2.5-3.5 Performed By: #### C BC, PT, PTT, BMP #### [facility] [address] [place] [address] [employer] Operator: Reed Mckeon MD #### ANICOT #### [facility] [address] [place] [address] [employer] Operator: Eduin Alvarez MD Prothrombin time (PT) Coag time (PPP) 10.3 s Normal 9.0-12.0 [facility] Comment on above: Performed By: #### C BC, PT, PTT, BMP #### [facility] [address] [place] [phone] [employer] Operator: Reed Mckeon MD #### ANICOT #### [facility] [address] [place] [address] [employer] Operator: Eduin Alvarez MD XR CHEST (2 VW)on [...] Mijares Jr., DO 04/02/18 Final result Normal [facility] [facility] H. pylori Detectionon 2017 H. pylori Detection Specimen Description .TISSUE, STOMACH BIOPSY Special Requests LOT [id number] EXP FEB 2018 Batcher Operator on this test is within expected limits. Direct Exam NEGATIVE Report Status FINAL 12/05/2017 Normal [facility] Comment on above: Performed By: #### H GENET #### [facility] [address] [place] [id number] Surgical Pathologyon 018 Surgical Pathology (NOTE) [id number] [facility] CON[facility] PATHOLOG[facility] [address] [place] [phone] SURGICAL PATHOLOGY CONSULTATION Patient Name: ANTOINETTE RECIO [facility] Rec: [id number] Path Number: [id number] Collected: 12/04/2017 Received: 12/04/2017 Reported: 12/07/2017 12:25 [...] tm Microscopic Description Microscopic examination performed. Normal [facility] Comment on above: Performed By: #### P PPVS #### [facility] [employer] [address] [place], [place] [id number] Vital Signs Date Time Vital Sign Value Performing Clinician Tahira luz 05-05-2023 15:13-0400 Body mass index (BMI) [Ratio] 29.32 kg/m2 Nieves Velasquez MD Work Phone: [facility] 05-05-2023 15:13-0400 Body weight 79.92 kg Nieves Velasquez MD Work Phone: [facility] 05-05-2023 15:13-0400 Diastolic blood pressure 84 mm[Hg] Nieves Velasquez MD Work Phone: [facility] 05-05-2023 15:13-0400 Systolic blood pressure 126 mm[Hg] Nieves Velasquez MD Work Phone: [facility] 11-30-2022 07:30-0400 Body temperature 97.9 [degF] PHYSICIAN NO [facility] 11-30-2022 07:30-0400 Diastolic blood pressure 104 mm[Hg] PHYSICIAN NO [facility] 11-30-2022 07:30-0400 Heart rate 68 /min PHYSICIAN NO [facility] 11-30-2022 07:30-0400 Respiratory rate 18 /min PHYSICIAN NO [facility] 11-30-2022 07:30-0400 SaO2% (BldA) [Mass fraction] 99 % PHYSICIAN NO [facility] 11-30-2022 07:30-0400 Systolic blood pressure 155 mm[Hg] PHYSICIAN NO [facility] 11-28-2022 14:23-0400 Body height 165.1 cm PHYSICIAN NO [facility] 11-27-2022 16:19-0400 Body weight 85.72 kg PHYSICIAN NO [facility] 11-27-2022 14:57-0400 Diastolic blood pressure 90 mm[Hg] PHYSICIAN NO [facility] 11-27-2022 14:57-0400 Heart rate 86 /min PHYSICIAN NO [facility] 11-27-2022 14:57-0400 Respiratory rate 18 /min PHYSICIAN NO [facility] 11-27-2022 14:57-0400 SaO2% (BldA) [Mass fraction] 98 % PHYSICIAN NO [facility] 11-27-2022 14:57-0400 Systolic blood pressure 142 mm[Hg] PHYSICIAN NO [facility] 11-27-2022 09:40-0400 Body height 165.1 cm PHYSICIAN NO [facility] 11-27-2022 09:40-0400 Body temperature 98.5 [degF] PHYSICIAN NO [facility] 11-27-2022 09:40-0400 Body weight 86.5 kg PHYSICIAN NO [facility] 05-13-2022 12:00-0400 Body temperature 98 [degF] PHYSICIAN NO [facility] 05-13-2022 12:00-0400 Diastolic blood pressure 79 mm[Hg] PHYSICIAN NO [facility] 05-13-2022 12:00-0400 Heart rate 102 /min PHYSICIAN NO [facility] 05-13-2022 12:00-0400 Respiratory rate 18 /min PHYSICIAN NO [facility] 05-13-2022 12:00-0400 SaO2% (BldA) [Mass fraction] 94 % PHYSICIAN NO [facility] 05-13-2022 12:00-0400 Systolic blood pressure 113 mm[Hg] PHYSICIAN NO [facility] 05-12-2022 09:00-0400 Body weight 79.83 kg PHYSICIAN NO [facility] 05-09-2022 14:19-0400 Body height 165.1 cm PHYSICIAN NO [facility] 05-09-2022 04:22-0400 Diastolic blood pressure 79 mm[Hg] PHYSICIAN NO [facility] 05-09-2022 04:22-0400 Systolic blood pressure 118 mm[Hg] PHYSICIAN NO [facility] 05-09-2022 01:14-0400 Heart rate 103 /min PHYSICIAN NO [facility] 05-09-2022 01:14-0400 Respiratory rate 18 /min PHYSICIAN NO [facility] 05-09-2022 01:14-0400 SaO2% (BldA) [Mass fraction] 97 % PHYSICIAN NO [facility] 05-08-2022 23:48-0400 Body height 165.1 cm PHYSICIAN NO [facility] 05-08-2022 23:48-0400 Body temperature 97.5 [degF] PHYSICIAN NO [facility] 05-08-2022 23:48-0400 Body weight 77.11 kg PHYSICIAN NO [facility] Encounters Encounter Date Encounter Type Care Provider Facility Start: 11-04-2023 End: 11-04-2023 ambulatory MANPREET PLUNKETT Not Available Start: 09-15-2023 End: 09-15-2023 ambulatory [facility] Start: 08-12-2023 End: 08-12-2023 ambulatory [facility] Start: 06-16-2023 End: 06-16-2023 Emergency department patient visit NO PCP NO PCP [facility] Start: 06-03-2023 End: 06-03-2023 ambulatory NO PCP NO PCP [facility] Start: 05-05-2023 End: 05-05-2023 ambulatory [facility] Start: 05-05-2023 Encounter for gynecological examination (general) (routine) without abnormal findings [facility] Start: 05-05-2023 End: 05-05-2023 Office outpatient visit 25 minutes Nieves Velasquez MD Work Phone: [facility] Comment on above: GA: 8w4d Start: 05-05-2023 End: 05-05-2023 Patient encounter status Nieves Velasquez MD Work Phone: [facility] Start: 05-05-2023 End: 05-05-2023 [facility] Start: 05-05-2023 Encounter for gynecological examination (general) (routine) without abnormal findings [facility] Start: 04-16-2023 End: 04-16-2023 ambulatory [facility] Start: 04-14-2023 End: 04-14-2023 Initial care visit Lynn Deleon AUDIT MGR-[employer] Work Phone: [facility] Comment on above: First trimester preg bal (Primary Dx); HTN in , chronic; History of gestational diabetes in prior , currently ; Nausea/vomiting in Start: 04-14-2023 End: 04-14-2023 ambulatory [facility] Start: 03-30-2023 End: 03-31-2023 [facility]: 11-27-2022 End: 11-30-2022 Evaluation and management of inpatient PHYSICIAN NO FAMILY Facility:[facility] Start: 11-27-2022 End: 11-30-2022 Evaluation and management of inpatient PHYSICIAN NO FAMILY [facility] Work Phone: Start: 11-27-2022 ambulatory PHYSICIAN NO FAMILY Fac ility:[facility] Start: 05-09-2022 End: 05-13-2022 Evaluation and management of inpatient PHYSICIAN NO FAMILY Facility:[facility] Start: 05-09-2022 End: 05-13-2022 Evaluation and management of inpatient PHYSICIAN NO FAMILY [facility] Work Phone: Start: 12-19-2021 End: 12-20-2021 ambulatory [facility] Start: 03-17-2021 End: 03-18-2021 ambulatory NONE LISTED REQUEST Facility: Start: 06-11-2020 End: 06-14-2020 ambulatory REFERRED SELF Facility:[facility] Start: 06-10-2020 End: 06-10-[address] PRO B[place]ON Facility: Start: 04-15-2018 End: 04-16-2018 Patient encounter procedure VIPUL TRIPATHI [facility] Start: 04-12-2018 End: 04-14-2018 Evaluation and management of inpatient [place] Katharine [facility] Start: 04-02-2018 Encounter for preprocedural respiratory examination [facility] Start: 04-02-2018 Encounter for other preprocedural examination [facility] Start: 04-02-2018 End: 04-07-2018 Patient encounter procedure [facility] Start: 12-04-2017 End: 12-04-2017 Patient encounter procedure [facility] Encounter for other preprocedural examination [facility] Procedures Date Procedure Procedure Detail Performing Clinician [...] CHER MARAVILLA Start: 04-15-2018 PATIENT STATUS (DIRECT) CEHR MARAVILLA Start: 04-15-2018 Iadna respiratry pro be [...] GARZATON Start: 04-12-2018 NEBULIZER TX INTERMITTENT CHER MARAIVLLA Start: 04-12-2018 PULSE OXIMETRY, CONTINUOUS CHER MARAVILLA [...] Td Vaccines (3 - Td or Tdap) [facility] Start: 05-04-2024 Adult BMI Screening Adult BMI Screen ing [facility] Start: 05-04-2024 Depression Screening Depression Scre ening [facility] Start: 05-04-2024 Tobacco Screening Tobacco Screening [facility] Start: 04-13-2024 Tobacco Screening Tobacco Screening [facility] Start: 03-30-2024 Adult BMI Screening Adult BMI Screen ing [facility] Start: 06-03-2023 End: 06-03-2023 Patient encounter procedure 06/03/2023 3:15 PM EDT Routine [facility] [address] [place] [id number] [facility] Start: 05-05-2023 End: 05-05-2023 ambulatory 05/05/2023 3:00 PM EDT Initial [facility] [address] [place] [phone] Nieves Velasquez MD [address] [place] [address] [facility] Start: 04-16-2023 Subsequent hospital visit by physician 04/16/2023 1:30 PM EST Hospital Encounter [facility] - Ultrasound [address] [place] [phone] Lynn Deleon, AUDIT [employer] [address] [place], [place] [id number] [facility] Start: 04-14-2023 End: 04-13-2024 US transvaginal for Ultrasound less than 14 weeks with transvaginal Imaging Routine First trimester Expected: 04/14/2023, Expires: 04/13/2024 [facility] Work Phone: Comment on above: Expected: 04/14/2023 , Expires: 04/13/2024 Start: 11-30-2022 [facility] Start: 11-28-2022 Lipid panel [facility] Start: 11-28-2022 [facility] Start: 11-27-2022 Referral to [employer] [facility] Start: 11-27-2022 Hospital admission [facility] Start: 11-27-2022 [facility] Start: 11-27-2022 Bacteria identified in Urine by Culture [facility] Start: 10-10-2022 Influenza vaccination Influenza Vacc ine [facility] Start: 05-13-2022 [facility] Start: 05-09-2022 Hospital admission [facility] Start: 04-20-2016 Screening for malign ant neoplasm of cervix Pap Smear [facility] Start: 04-20-2013 Adult BMI Follow Up Plan Adult BMI Follow Up Plan [facility] Start: 2007 Depression Screening Depression Scre ening [facility] End: 04-13-2024 Bacteria identified in Urine by Culture Urine Culture Microbiology Routine First trimester 1 Occurrences starting 04/14/2023 until 04/13/2024 [facility] Comment on above: 1 Occurrences starti ng 04/14/2023 until 04/13/2024 End: 04-13-2024 CBC panel - Blood by Automated count CBC without diff Lab Routine First trimester 1 Occurrences starting 04/14/2023 until 04/13/2024 [facility] Comment on above: 1 Occurrences starti ng 04/14/2023 until 04/13/2024 End: 05-04-2024 Chlamydia/GC by PCR ThinPrep fluid Chlamydia/GC by PCR ThinPrep fluid Microbiology Routine Screening for STD (sexually transmitted disease) 1 Occurrences starting 05/05/2023 until 05/04/2024 [facility] Comment on above: 1 Occurrences starti ng 05/05/2023 until 05/04/2024 End: 04-13-2024 Comprehensive metabolic 2000 panel - Serum or Plasma Comprehensive metabolic panel Lab Routine First trimester HTN in , chronic 1 Occurrences starting 04/14/2023 until 04/13/2024 [facility] Comment on above: 1 Occurrences starti ng 04/14/2023 until 04/13/2024 End: 04-13-2024 Creatinine clearance Creatinine clearance Lab Routine First trimester HTN in , chronic 1 Occurrences starting 04/14/2023 until 04/13/2024 [facility] Comment on above: 1 Occurrences starti ng 04/14/2023 until 04/13/2024 End: 05-04-2024 Cytopathology procedure, preparation of smear, genital source Pap Smear Pathology and Cytology Routine Smear, vaginal, as part of routine gynecological examination 1 Occurrences starting 05/05/2023 until 05/04/2024 [employer] Work Phone: Comment on above: 1 Occurrences starti ng 05/05/2023 until 05/04/2024 End: 04-13-2024 Drug Screen, Urine Drug Screen, Urine Lab Routine First trimester 1 Occurrences starting 04/14/2023 until 04/13/2024 [facility] Comment on above: 1 Occurrences starti ng 04/14/2023 until 04/13/2024 End: 04-13-2024 Glucose 1h post 50g load Glucose 1h post 50g load Lab Routine First trimester History of gestational diabetes in prior , currently 1 Occurrences starting 04/14/2023 until 04/13/2024 [facility] Comment on above: 1 Occurrences starti ng 04/14/2023 until 04/13/2024 End: 04-13-2024 Hepatitis panel, acute Hepatitis panel, acute Lab Routine First trimester 1 Occurrences starting 04/14/2023 until 04/13/2024 [facility] Comment on above: 1 Occurrences starti ng 04/14/2023 until 04/13/2024 End: 04-13-2024 HIV 1&2 AB/AG Screen (P24 AG) HIV 1&2 AB/AG Screen (P24 AG) Lab Routine First trimester 1 Occurrences starting 04/14/2023 until 04/13/2024 [facility] Comment on above: 1 Occurrences starti ng 04/14/2023 until 04/13/2024 End: 04-13-2024 LDH LDH Lab Routine First trimester HTN in , chronic 1 Occurrences starting 04/14/2023 until 04/13/2024 [facility] Comment on above: 1 Occurrences starti ng 04/14/2023 until 04/13/2024 Patient Education Depression, Ad ult (DC) [facility] DC Instructions [facility] Work Phone: Patient referral [facility] Work Phone: End: 04-13-2024 Rubella IGG immune status Rubella IGG immune status Lab Routine First trimester 1 Occurrences starting 04/14/2023 until 04/13/2024 [facility] Comment on above: 1 Occurrences starti ng 04/14/2023 until 04/13/2024 End: 04-13-2024 Syphilis Total(Unknown Syphilis Status) Syphilis Total(Unknown Syphilis Status) Lab Routine First trimester 1 Occurrences starting 04/14/2023 until 04/13/2024 [facility] Comment on above: 1 Occurrences starti ng 04/14/2023 until 04/13/2024 End: 04-13-2024 Type and screen Type and screen Blood Bank Routine First trimester 1 Occurrences starting 04/14/2023 until 04/13/2024 [facility] [employer] [facility] Comment on above: 1 Occurrences starti ng 04/14/2023 until 04/13/2024 End: 04-13-2024 Urate [Mass/volume] in Serum or Plasma Uric acid Lab Routine First trimester HTN in , chronic 1 Occurrences starting 04/14/2023 until 04/13/2024 [facility] Comment on above: 1 Occurrences starti ng 04/14/2023 until 04/13/2024 End: 04-13-2024 Urinalysis Urinalysis Lab Routine First trimester 1 Occurrences starting 04/14/2023 until 04/13/2024 [email or web address] Comment on above: 1 Occurrences starti ng 04/14/2023 until 04/13/2024 End: 04-13-2024 Urine protein creatinine ratio Urine protein creatinine ratio Lab Routine First trimester HTN in , chronic 1 Occurrences starting 04/14/2023 until 04/13/2024 [facility] Comment on above: 1 Occurrences starti ng 04/14/2023 until 04/13/2024 End: 04-13-2024 Varicella zoster antibody, IgG Varicella zoster antibody, IgG Lab Routine First trimester 1 Occurrences starting 04/14/2023 until 04/13/2024 [facility] [employer] [facility] Comment on above: 1 Occurrences starti ng 04/14/2023 until 04/13/2024 Immunizations Immunization Date Immunization Notes Care Provider Gretel grissom 12-21-2020 tetanus toxoid, redu lucy diphtheria toxoid, and acellular pertussis vaccine, adsorbed PHYSICIAN NO [facility] 09-02-2019 tetanus toxoid, redu lucy diphtheria toxoid, and acellular pertussis vaccine, adsorbed PHYSICIAN NO [facility] Payers Date Payer Category Payer Self-pay [id number] 2022 Medicaid [employer] [place] [id number] 2022-[facility] [phone] [place], [place] [id number] 2021 Medicaid [id number] 2018 Unknown [id number] 2017 Private Health Insurance [id number] 1995 Unknown [id number] 2.16.840.1.630802.3.579.2. 175 1995 Unknown [id number] 2.16.840.1.107092.3.579.2. 175 1995 Unknown [id number] 2.16.840.1.749502.3.579.2. 175 1995 Unknown [id number] 2.16.840.1.445204.3.579.2. 175 1995 Unknown [id number] 2.16.840.1.592493.3.579.2. 175 1995 Unknown [id number] 2.16.840.1.676855.3.579.2. 593 1995 Unknown [id number] 2.16.840.1.287909.3.579.2. 593 1995 Unknown [id number] 2.16.840.1.715933.3.579.2. 647 1995 Unknown [id number] 2.16.840.1.031022.3.579.2. 1286 1995 Unknown [id number] 2.16.840.1.703505.3.579.2. 1286 1995 Unknown [id number] 2.16.840.1.944682.3.579.2. 1286 1995 Unknown [id number] 2.16.840.1.124126.3.579.2. 1286 1995 Unknown [id number] 2.16.840.1.346211.3.579.2. 1286 1995 Unknown [id number] 2.16.840.1.720462.3.579.2. 1286 1995 Unknown [id number] 2.16.840.1.670100.3.579.2. 1286 1995 Unknown [id number] 2.16.840.1.007445.3.579.2. 1286 1995 Unknown [id number] 2.16.840.1.365336.3.579.2. 1286 1995 Unknown [id number] 2.16.840.1.923613.3.579.2. 1286 1995 Unknown [id number] 2.16.840.1.234020.3.579.2. 1286 1995 Unknown [id number] 2.16.840.1.908025.3.579.2. 1286 1995 Unknown [id number] 2.16.840.1.465350.3.579.2. 1259 1959 Self-pay [id number] 1959 Unknown [id number] Medicaid [place] [employer] [id number] Unknown [id number] 2.16.840.1.409540.3.579.2. 531 Unknown [id number] 2.16.840.1.050374.3.579.2. 531 Unknown [id number] 2.16.840.1.995792.3.579.2. 531 Social History Date Type Detail Facility Start: 05-09-2022 End: 11-27-2022 Tobacco smoking status [facility] Never smoked tobacco (finding) [facility] Start: 1995 Sex Assigned At Female F [facility] Start: 11-28-2022 End: 03-24-2023 Tobacco smoking status GAIS Smoker (finding) [facility] Start: 04-14-2023 Tobacco smoking stat us [facility] Ex-smoker [facility] End: 03-24-2023 History of tobacco use Cigarette Smoker [facility] Start: 03-22-2020 End: 04-14-2023 Cigarettes smoked current (pack per day) - Reported 0.3 [facility] Start: 04-14-2023 Tobacco use and exposure Smokeless tobacco non-user [facility] Start: 04-14-2023 End: 05-05-2023 Alcohol intake Current non-drinker of alcohol (finding) [facility] Start: 03-22-2020 End: 04-14-2023 Tobacco use panel [facility] Childcare Unknown [facility] Start: 04-14-2023 Alcohol Comment SOBER 3 MONTHS [facility] Start: 1995 Sex Assigned At Not on file P [facility] How hard is it for y ou to pay for the very basics like food, housing, medical care, and heating Somewhat hard [facility] Start: 03-20-2023 [facility] Goals Date Patient Goal Desired Activity /State Functional Status Date Assessment Result Facility 11-30-2022 Functional status Patient at Baseline [facility] Work Phone: 05-13-2022 Functional status Patient at Baseline [facility] Work Phone: Mental Status Date Assessment Result Facility 11-30-2022 Cognitive function Cognitive Sta tus Patient at Baseline [facility] Work Phone: 05-13-2022 Cognitive function Cognitive Sta tus Patient at Baseline [facility] Work Phone: Clinical Notes 06-14-2020 to [...] No recent concerns documented in this encounter [facility] 04-14-2023 History of Presen t illness Narrative OB Intake Video Visit 27 y.o. at unknown gestation contacted through [employer] for OB intake video visit. verified and verbal consent obtained for video visit. Patient and provider both currently located in the [facility]. This was a planned . FOB involved [...] hx alcohol abuse. 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 Discussed testing. Pt declines all. The patient reports that there is not domestic violence in her life. Discussed exercise, diet and weight gain. Current BMI 28. Discussed smoking, alcohol use and drug use. Quit vaping / smoking 3 weeks ago, sober from alcohol 3 months. Discussed early danger signs and when/how to notify provider. Reviewed CNM / [employer] P[employer]ER [employer] HE[employer] SEALER care, collaboration & referral to [employer]IN DANCE INSTRUCTOR as needed. Reviewed course of care. Discussed CDC recommendation for exclusive for the first 6 months. Patient has not been covid vaccinated. Discussed recommendations in . Patient is taking an OTC vitamin. Will offer flu shot in the office. All questions answered. Educational materials provided through [employer]. Ultrasound and labs ordered. Appointment scheduled for initial OB visit with provider on 05/05/23. MARISOL Mabry 04/14/23 [id number]. Chronic HTN with no meds or PCP-baseline labs ordered. HX GDMA1-EARLY 1 HR GTT. Last pap was 3 years negative. Pt declined genetic testing. Stopped tobacco use and vaping 3 weeks ago.marino from alcohol for 3 months. documented in this encounter [facility] 04-14-2023 Miscellaneous Notes Addended by: LYNN DELEON on: 04/14/2023 03:15 PM Modules accepted: Orders documented in this encounter [facility] 04-14-2023 Note Addended by: LYNN DELEON on: 04/14/2023 03:15 PM Modules accepted: Orders [facility] 11-30-2022 Discharge summary Note Date/Time November 30, 2022 10:14am [facility] [address] [place] [address] Discharge Summary Signed Patient: Antoinette Recio MR#: [id number] : 1995 Acct:[id number] Age/Sex: 27 / F Adm Date: 3 Loc: Room: [address] [place] [address]: Dar Nation MD Copies to: [...] Instructions: Important Contact Information You can call [facility] at [phone] any time day or night if you have emergent questions or question regarding discharge instructions. If at any time you are feeling an increase inyour psychiatric symptoms, call your physician or behavioral healthcare provider. If any time you have thoughts of harming yourself or others contact one of the following: Call (available 01/09) Crisis Text Line (available 01/09) text [facility] to [phone] [facility] (available 8 a.m. Midnight) call [phone] ([phone]) Prescriptions: New venlafaxine 75 mg Capsule,Extended Release [...] signed by Dar Nation MD> 11/30/22 1016 [facility] Work Phone: [phone] 441-324410-22-2023 Hospital Discharge instructions Additional Instructions Important Contact Information You can call [facility] Behavioral Health at [phone] any time day or night if you have emergent questions or question regarding discharge instructions. If at any time you are feeling an increase in your psychiatric symptoms, call your physician or behavioral healthcare provider. If any time you have thoughts of harming yourself or others contact one of the following: Call (available 01/09) Crisis Text Line (available 01/09) text 4HOPE to [phone] [facility] (available 8 a.m. Midnight) call [phone] ([phone]) [facility] Work Phone: 1(324) 664-182010-21-2023 Progress note Author [facility] November 29, 2022 11:21am Note Date/Time November 29, 2022 1 1:22am [facility] [address] [place] [address] Psychiatry Progress Note Signed Patient: Antoinette Recio MR#: [id number] : 1995 Acct:[id number] Age/Sex: 27 / F Adm Date: 3 Loc: Room: [address] [place] [address] Type : ADM IN Attending Dr: Dar [...] signed by Dar Nation MD> 11/29/22 1121 [facility] Work Phone: 1(571) 590-917410-20-2023 History and physical note Author Dar Nation [facility] November 28, 2022 11:45am Note Date/Time November 28, 2022 1 1:45am [facility] [address] [place] [address] Psychiatry H&P Signed Patient: Antoinette Recio MR#: [id number] : 1995 Acct:[id number] Age/Sex: 27 / F Adm Date: 3 Loc: Room: [address] [place] [address] Type: ADM IN Attending Dr: Dar Nation [...] homicidality, reported suicidality Insight: fair Judgment: fair [facility] Medical History Clavicle fracture Miscarriage Surgical History [...] Turbid A Urine pH 5.0 Ur Specific [place] 1.023 Urine Protein Trace H Urine Glucose [...] <Electronically signed by Dar Nation MD> 11/28/22 1140 [facility] Work Phone: 1(974) 706-754704-04-2023 Discharge summary Author Dar Nation [facility] May 13, 2022 12:29pm Note Date/Time May 13, 2022 12:2 9pm [facility] [address] [place] [address] Discharge Summary Signed Patient: Antoinette Recio MR#: [id number] : 1995 Acct:[id number] Age/Sex: 27 / F Adm Date: 3 Loc: Room: [address] [place] [address]: Tiana Smith MD Copies to: [...] past year Living: House with parents in [place] Employment: None Patient was treated with Effexor. [...] No activity restrictions. Instructions: Depression, Adult ([place]), [facility] Behavioral Health [place] Instructions Prescriptions: New venlafaxine [...] primary provider for any medical needs. ) [facility] Counseling Hotline [Outside] [facility] [Outside] - 05/14/22 11:30 am (assistant finance manager: Thursday05/14/22 @ 11:30am Intake: Thursday05/20/22 @ 12:30pm Please bring a copy of your photo ID, insurance card, and proof of household income. Nurse: 05/22/22 @ 2:00pm with Anabel. Please see attached instruction sheet Psychiatry: Thursday05/27/22 @ 9:30am with Dr. Goetz) Documented By: Dar Nation MD 05/13/221227 Signed By: <Electronically signed by Dar Nation MD> 05/13/22 1229 [facility] Work Phone: 1(674) 114-203304-03-2023 Progress note Author Dar Nation [facility] May 12, 2022 3:21pm Note Date/Time May 12, 2022 3:21 pm [facility] [address] [place] [address] Psychiatry Progress Note Signed Patient: Antoinette Recio MR#: [id number] : 1995 Acct:[id number] Age/Sex: 27 / F Adm Date: 3 Loc: Room: [address] [place] [address] Type : ADM IN Attending Dr: Tiana Smith MD Copies to: ~ Date of Service: 05/12/2022 Subjective Subjective Narrative: Patient continues to move in the right direction with her's current [facility] protocol and antidepressant medication regimen. [...] <Electronically signed by Dar Nation MD> 05/12/22 152 [facility] Work Phone: 1(754) 952-339704-02-2023 Progress note Author Ji [facility]erson [facility] May 11, 2022 8:50am Note Date/Time May 11, 2022 8:49 am [facility] [address] [place] [address] Psychiatry Progress Note Signed Patient: Antoinette Recio MR#: [id number] : 1995 Acct:[id number] Age/Sex: 27 / F Adm Date: 3 Loc: Room: [address] [place] [address] Type : ADM IN Attending Dr: Tiana Smith MD Copies to: ~ Date of Service: 05/11/2022 Subjective Subjective Narrative: Overnight: Patient was trying the unit doors trying to get out.? She was also starting to get mean.? She stated to this freelance copywriter, get out of my face, leave me [...] and laid down on the bed.? This freelance copywriter gave report to the Special Care Unit nurse and then this freelance copywriter collected the patient's belongings and took them [...] explained Documented By: Ji Smith MD [id number] Signed By: <Electronically signed by Ji Smith MD> 05/11/22 0850 [facility] Work Phone: 1(669) 956-287804-01-2023 Progress note Author Ji [facility] May 10, 2022 5:02pm Note Date/Time May 10, 2022 10:2 5am [facility] [address] [place] [address] Psychiatry Progress Note Signed with Addenda Patient: Antoinette Recio MR#: [id number] : 1995 Acct:[id number] Age/Sex: 27 / F Adm Date: 3 Loc: Room: [address] [place] [address] Type : ADM IN Attending Dr: Tiana [...] signed by Ji Smith MD> 05/10/22 1025 [facility] Work Phone: 1(841) 869-131303-31-2023 History and physical note Author Ji anderson [facility] May 09, 2022 12:28pm Note Date/Time May 09, 2022 12: 28pm [facility] [address] [place] [address] Psychiatry H&P Signed Patient: Antoinette Recio MR#: [id number] : 1995 Acct:[id number] Age/Sex: 27 / F Adm Date: 3 Loc: Room: [address] [place] [address] Type: ADM IN Attending Dr: Tiana Smith [...] past year Living: House with parents in [place] Employment: None Review of symptoms: Constitutional: Denies [...] Appearance Clear Urine pH 5.5 Ur Specific [place] 1.013 Urine Protein 30 H Urine Glucose [...] <Electronically signed by Ji Smith MD> 05/09/22 [facility]8 [facility] Work Phone: 1(994) 944-954905-07-2021 Note [id number]:[address] [place] [address] 06-14-2020 [id number]:[address] [place], [place] [address]Evaluation note* Diagnosis Onset Date Resolution Status Suicidal ideation acute [facility] Work Phone: Evaluation note* Diagnosis Onset Date Resolution Status Alcohol use disorder acute Major depressive disorder, recurrent, moderate acute Suicidal ideation acute [facility] Work Phone: Evaluation note* Diagnosis Onset Date Resolution Status Suicidal ideation acute Urinary tract infection acut e [facility] Work Phone: Evaluation note* Diagnosis Onset Date Resolution Status Alcohol use disorder acute Major depressive disorder, recurrent, moderate acute Suicidal ideation acute Urinary tract infection acut e [facility] Work Phone: Evaluation note* Diagnosis First [...] (sexually transmitted disease) documented in this encounter [facility] System[facility] and physical note Author Ji anderson [facility] May 09, 2022 12:28pm Note Date/Time May 09, 2022 12: 28pm [facility] [address] [place] [address] Psychiatry H&P Signed Patient: Antoinette Recio MR#: [id number] : 1995 Acct:[id number] Age/Sex: 27 / F Adm Date: 3 Loc: Room: [address] [place] [address] Type: ADM IN Attending Dr: Tiana Smith [...] past year Living: House with parents in [place] Employment: None Review of symptoms: Constitutional: Denies [...] Appearance Clear Urine pH 5.5 Ur Specific [place] 1.013 Urine Protein 30 H Urine Glucose [...] signed by Ji Smith MD> 05/09/22 1228 [facility] Work Phone: Hospital Discharge instructions Additional Instructions Regular diet. No activity restrictions.[facility] Work Phone: Instructions* Attachments The following attachments cannot be sent through Care Everywhere. * Activity during (Guatemalan) * How to Adapt to Physical Changes During (Guatemalan) * Nutrition before and during ([place]atemalan) * care ([place]atem[place]) documented in this encounterPro[facility] [place] SystemInstructionsNot on file documented in this encounterProSelect Medical [facility] [place] SystemProgress note Author Ji anderson [facility] May 10, 2022 5:02pm Note Date/Time May 10, 2022 10:2 5am [facility] [address] [place] [address] Psychiatry Progress Note Signed with Esmer Patient: Antoinette Recio MR#: [id number] : 1995 Acct:[id number] Age/Sex: 27 / F Adm Date: 3 Loc: Room: [address] [place] [address] Type : ADM IN Attending Dr: Tiana [...] signed by Ji Smith MD> 05/10/22 1025 [facility] Work Phone: Progress note Author Ji [facility]erson [facility] May 11, 2022 8:50am Note Date/Time May 11, 2022 8:49 am [facility] [address] [place] [address] Psychiatry Progress Note Signed Patient: Antoinette Recio MR#: [id number] : 1995 Acct:[id number] Age/Sex: 27 / F Adm Date: 3 Loc: 1S Room: [address] [place] [address] Type : ADM IN Attending Dr: Tiana Smith MD Copies to: ~ Date of Service: 05/11/2022 Subjective Subjective Narrative: Overnight: Patient was trying the unit doors trying to get out.? She was also starting to get mean.? She stated to this freelance copywriter, get out of my face, leave me [...] and laid down on the bed.? This freelance copywriter gave report to the Special Care Unit nurse and then this freelance copywriter collected the patient's belongings and took them [...] signed by Ji Smith MD> 05/11/22 0850 [facility] Work Phone: Progress note Author Dar Nation [facility] May 12, 2022 3:21pm Note Date/Time May 12, 2022 3:21 pm [facility] [address] [place] [address] Psychiatry Progress Note Signed Patient: Antoinette Recio MR#: [id number] : 1995 Acct:[id number] Age/Sex: 27 / F Adm Date: 3 Loc: Room: [address] [place] [address] Type : ADM IN Attending Dr: Tiana [...] signed by Dar Nation MD> 05/12/22 1521 [facility] Work Phone: Summary Purpose Family History [...] section and content) DATE CREATED AUTHOR 2018 [facility] DATE CREATED AUTHOR AUTHOR'S ORGANIZ ATION 07/17/2020 [facility] DATE CREATED AUTHOR AUTHOR'S ORGANIZ ATION 03/19/2021 [facility] DATE CREATED AUTHOR AUTHOR'S ORGANIZ ATION 06/15/2021 [facility] DATE CREATED AUTHOR AUTHOR'S ORGANIZ ATION 12/21/2021 [facility] DATE CREATED AUTHOR AUTHOR'S ORGANIZ ATION 02/23/2023 [facility] DATE CREATED AUTHOR AUTHOR'S ORGANIZ ATION 06/05/2023 [facility] DATE CREATED AUTHOR AUTHOR'S ORGANIZ ATION 08/13/2023 [facility] DATE CREATED AUTHOR AUTHOR'S ORGANIZ ATION 09/17/2023 [facility] DATE CREATED AUTHOR AUTHOR'S ORGANIZ ATION 11/06/2023 [facility] d[facility] Specialists EPIC Care Teams (unrecognized sec [...] MD Admit Provider, Attending Pr ovider Active Industrial Safety And Health Manager Relationship Specialty Start Date End Date No Pcp, [place] [address] PCP - General Family Medicine 03/30/23 Industrial Safety And Health Manager Relationship Specialty Start Date End Date No Pcp, [place] [address] PCP - General Family Medicine 03/30/23 Goals [...] BE BASED ON THE PRIMARY CLINICAL RECORDS. [facility]. provides no warranty or guarantee of the accuracy or completeness of information in this document.
[2023-11-09 19:23] VITALS: BP 133/90; PULSE 100
[2023-11-09 19:54] VITALS: BP 120/82; PULSE 82
--- NOTE | 2023-11-09 19:56 | US_ITS ---
[address] [address] Patient Name: BRAYDEN RECIO MRN: [id number] date: 1995 Sex: F Assigned Patient Location: [facility] Current Patient Location: [facility] Accession/Order Number: [id number] Exam Date: 11/09/2023 20:00 Report Date: 11/09/2023 21:51 At the request of: MANPREET PLUNKETT Procedure: US OB BPP w non-stress EXAM: US OB BPP w non-stress HISTORY: chronic htn COMPARISON: 11/04/2023 TECHNIQUE: Transabdominal pelvic ultrasound was performed. Real-time ultrasound examination with permanent image recording was performed and reviewed on a PACS workstation. FINDINGS: There is a single live intrauterine gestation in cephalic presentation. RUT is 12.6 cm and is within normal range. A heartbeat 135 bpm was obtained. breathing movements: 2 / 2 Gross body movements: 2 / 2 tone: 2 / 2 Qualitative amniotic fluid volume: 2 / 2 Total biophysical profile score: 8 / 8 US/US OB BPP w non-stress IMPRESSION: 1. Unremarkable biophysical profile. The biophysical profile score is 8/8. 2. There is a single live intrauterine gestation. Electronically authenticated by: KAROL ALEGRIA Date: 11/09/2023 21:51
--- OUTSIDE RECORDS SUMMARY | 2023-11-10 07:17 | XMS_ITS | CCD ---
Author Organization [facility] Care Team Providers Care Chief Pilot Name Role Phone CHER MARAVILLA Admitting Unavailable CHER MARAVILLA Attending Unavailable CHER MARAVILLA Referring Unavailable FERNANDO KELLI Primary Care Unavailable CHER MARAVILLA Referring Unavailable FERNANDO [facility] Primary Care Unavailable CHER MARAVILLA Admitting Unavailable CHER MARAVILLA Attending Unavailable FERNANDO KELLI Primary Care Unavailable VIPUL TRIPATHI Referring Unavailable FERNANDO[facility] Primary Care Unavailable RACHAEL MERAZ Consulting [...] Referring Unavailable SELF, REFERRED Primary Care Unavailable DLUCE MIN Attending Unavailable DULCE MIN Admitting Unavailable LORIN TENORIO Attending Unavailable NO FAMILY, PHYSICIAN Primary Care Provider Unava ilDO Henry Baez Emergency Provider Unavai MD Tiana Stevenson Admit Provider [phone] MD Tiana Smith Attending Provider NO FAMILY, PHYSICIAN Primary Care Provider Unava MD Sara Delgado Emergency Provider MD Rios Dar Admit Provider [phone] MD Dar Nation Attending Provider [phone] NO FAMILY, PHYSICIAN Primary Care Unavailable Dar [...] Azithromycin; Translations: [azithromycin] Drug Allergy 05-08-2022 Anaphylaxis [facility] Medications Current Medications Medication Drug Class(es) Dates [...] Every 2 hours November 30, 2022 12:00am [place] (No Known Home Meds) (1 source) Start: 11-27-2022 [place] (No Known Home Meds) Active November 27, [...] 06-16-19 ABSOLUTE BASOPHIL 0.1 X10E9/L Normal 0.0-0.2 [facility] Comment on above: Performed By: #### 2 106-3 #### [facility] ([id number]) [address] [place] [address] 25583 ABSOLUTE NEUTROPHIL 11.8 X10E9/L High 1.5-6.[address] [facility] Comment on above: Performed By: #### 2 106-3 #### [facility] ([id number]) [address] [place] [address] 16276 Basophils/100 WBC (Bld) 0.4 % Normal P [facility] Comment on above: Performed By: #### 2 106-3 #### [facility] ([id number]) [address] [place] [address] 94114 Eosinophils (Bld) [#/Vol] 0.1 10*3/uL Normal 0.0-0.4 [facility] Comment on above: Performed By: #### 2 106-3 #### [facility] ([id number]) [address] [place] [address] 54626 Eosinophils/100 WBC (Bld) 0.4 % Normal [facility] Comment on above: Performed By: #### 2 106-3 #### [facility] ([id number]) [address] [place] [address] 93492 Erythrocyte distribution width (RBC) [Ratio] 15.3 % High 11.5-15.0 [facility] Comment on above: Performed By: #### 2 106-3 #### [facility] ([id number]) [address] [place] [address] 94626 Hematocrit (Bld) [Volume fraction] 35.3 % Normal 35-47 [facility] Comment on above: Performed By: #### 2 106-3 #### [facility] ([id number]) [address] [place] [address] 25862 Hemoglobin (Bld) [Mass/Vol] 12.0 g/dL Normal 11.7-15.5 [facility] Comment on above: Performed By: #### 2 106-3 #### [facility] ([id number]) [address] [place] [address] 62616 Lymphocytes (Bld) [#/Vol] 1.4 10*3/uL Normal 1.0-3.5 [facility] Comment on above: Performed By: #### 2 106-3 #### [facility] ([id number]) [address] [place] [address] 31550 Lymphocytes/100 WBC (Bld) 10.3 % Normal [facility] Comment on above: Performed By: #### 2 106-3 #### [facility] ([id number]) [address] [place] [address] 84274 MCH (RBC) [Entitic mass] 28.1 pg Normal 27-34 [facility] Comment on above: Performed By: #### 2 106-3 #### [facility] ([id number]) [address] [place] [address] 89635 MCHC (RBC) [Mass/Vol] 33.9 g/dL Normal 32-36 [facility] Comment on above: Performed By: #### 2 106-3 #### [facility] ([id number]) [address] [place] [address] 67031 MCV (RBC) [Entitic vol] 83 fL Normal 80-100 [facility] Comment on above: Performed By: #### 2 106-3 #### [facility] ([id number]) [address] [place] [address] 81675 Monocytes (Bld) [#/Vol] 0.5 10*3/uL Normal 0-0.9 [facility] Comment on above: Performed By: #### 2 106-3 #### [facility] ([id number]) [address] [place] [address] 60923 Monocytes/100 WBC (Bld) 3.6 % Normal [facility] Comment on above: Performed By: #### 2 106-3 #### [facility] ([id number]) [address] [place] [address] 05078 Neutrophils/100 WBC (Bld) 85.3 % Normal [facility] Comment on above: Performed By: #### 2 106-3 #### [facility] ([id number]) [address] [place] [address] 50353 Platelet mean volume (Bld) [Entitic vol] 8.2 fL Normal 7-12 [facility] Comment on above: Performed By: #### 2 106-3 #### [facility] ([id number]) [address] [place] [address] 17329 Platelets (Bld) [#/Vol] 434 10*3/uL Normal 150-450 [facility] Comment on above: Performed By: #### 2 106-3 #### [facility] ([id number]) [address] [place] [address] 24076 RBC COUNT 4.27 X10E12/L Normal 3.80-5.20 [facility] Comment on above: Performed By: #### 2 106-3 #### [facility] ([id number]) [address] [place] [address] 43412 WBC (Bld) [#/Vol] 13.8 10*3/uL High 4.0-11.0 [facility] Comment on above: Performed By: #### 2 106-3 #### [facility] ([id number]) [address] [place] [address] 23972 COMPREHENSIVE METABOLIC PANE Shaji 06-16-2023 Albumin [Mass/Vol] 3.9 g/dL Normal 3.2-5.3 [facility] Comment on above: Performed By: #### 2 106-3 #### [facility] ([id number]) [address] [place] [address] 95544 ALP [Catalytic activity/Vol] 46 U/L Normal 39-130 [facility] Comment on above: Performed By: #### 2 106-3 #### [facility] ([id number]) [address] [place] [address] 25587 ALT [Catalytic activity/Vol] 12 U/L Normal 0-31 [facility] Comment on above: Performed By: #### 2 106-3 #### [facility] ([id number]) [address] [place] [address] 92535 Anion gap [Moles/Vol] 12 mmol/L Normal 5-15 [facility] Comment on above: Performed By: #### 2 106-3 #### [facility] ([id number]) [address] [place] [address] 10750 AST [Catalytic activity/Vol] 15 U/L Normal 0-41 [facility] Comment on above: Performed By: #### 2 106-3 #### [facility] ([id number]) [address] [place] [address] 90991 Bilirubin [Mass/Vol] 0.3 mg/dL Normal 0.3-1.2 [place] Comment on above: Performed By: #### 2 106-3 #### [facility] ([id number]) [address] [place] [address] 80627 Calcium [Mass/Vol] 9.0 mg/dL Normal 8.5-10.5 [facility] Comment on above: Performed By: #### 2 106-3 #### [facility] ([id number]) [address] [place] [address] 96057 Chloride [Moles/Vol] 105 mmol/L Normal 98-109 [place] Comment on above: Performed By: #### 2 106-3 #### [facility] ([id number]) [address] [place] [address] 97791 CO2 [Moles/Vol] 19 mmol/L Low 22-32 [facility] Comment on above: Performed By: #### 2 106-3 #### [facility] ([id number]) [address] [place] [address] 47022 Creatinine [Mass/Vol] 0.58 mg/dL Normal 0.40-1.00 [facility] Comment on above: Result Comment: METH OD TRACEABLE TO IDMS STANDARD Performed By: #### 2 106-3 #### [facility] ([id number]) [address] [place] [address] 34745 eGFR (CKD-EPI) NON-RACE DEPENDENT >90 Normal >59 [facility] Comment on above: Result Comment: Reported eGFR is based on the CKD-EPI 2020 equation that does not use a race coefficient. Performed By: #### 2 106-3 #### [facility] ([id number]) [address] [place] [address] 93785 Glucose [Mass/Vol] 87 mg/dL Normal 65-99 [facility] Comment on above: Performed By: #### 2 106-3 #### [facility] ([id number]) [address] [place] [address] 61763 Potassium [Moles/Vol] 3.6 mmol/L Normal 3.5-5.0 [facility] Comment on above: Performed By: #### 2 106-3 #### [facility] ([id number]) [address] [place] [address] 27708 Protein [Mass/Vol] 7.5 g/dL Normal 6.0-8.0 [facility] Comment on above: Performed By: #### 2 106-3 #### [facility] ([id number]) [address] [place] [address] 29393 Sodium [Moles/Vol] 136 mmol/L Normal 134-146 [facility] Comment on above: Performed By: #### 2 106-3 #### [facility] ([id number]) [address] [place] [address] 75532 Urea nitrogen [Mass/Vol] 7 mg/dL Normal 5-23 [facility] Comment on above: Performed By: #### 2 106-3 #### [facility] ([id number]) [address] [place] [address] 72195 MAGNESIUMon 06-16-2023 Magnesium [Mass/Vol] 1.7 mg/dL Low 1.8-2.6 [place] Comment on above: Performed By: #### 2 106-3 #### [facility] ([id number]) [address] [facility] [place] [address] SARS/FLU A+B/RSV by NAAT/Mol ecchunon 06-16-2023 SARS/FLU [...] operators who are performing tests using either CURRENT DX or Yotta280 systems and is limited to laboratories that [...] repeat. Fact Sheet for Healthcare Providers: https://www.fda.gov/me gerry/603002/download Fact Sheet for Patients: https://www.fda.gov/ia gerry/386101/download Normal [facility] Comment on above: Performed By: #### 2 106-3 #### [facility] ([id number]) [address] [place] [address] [place] [address] URINALYSISon 06-16-2023 Bilirubin Ql (U) Negative Normal NEG [facility] Comment on above: Performed By: #### 2 106-3 #### [facility] ([id number]) [address] [place] [address] [place] [address] BLOOD/HGB Negative Normal NEG [facility] Comment on above: Performed By: #### 2 106-3 #### [facility] ([id number]) [address] [place] [address] 59560 Color (U) YELLOW Normal YELLOW [facility] Comment on above: Performed By: #### 2 106-3 #### [facility] ([id number]) [address] [place] [address] [place] [address] Glucose Ql (U) Negative Normal NEG [facility] Comment on above: Performed By: #### 2 106-3 #### [facility] ([id number]) [address] [place] [address] [place] [address] Ketones Ql (U) Negative Normal NEG [facility] Comment on above: Performed By: #### 2 106-3 #### [facility] ([id number]) [address] [place] [address] [place] [address] Leukocyte esterase Test strip Ql (U) Negative Normal NEG [facility] Comment on above: Performed By: #### 2 106-3 #### [facility] ([id number]) [address] [place] [address] [place] [address] MUCOUS PRESENT Abnormal NONE [facility] Comment on above: Performed By: #### 2 106-3 #### [facility] ([id number]) [address] [place] [address] 10928 Nitrite Ql (U) Negative Normal NEG [facility] Comment on above: Performed By: #### 2 106-3 #### [facility] ([id number]) [address] [place] [address] 31329 pH (U) 6.5 [pH] Normal 5.0-8.5 [facility] Comment on above: Performed By: #### 2 106-3 #### [facility] ([id number]) [address] [place] [address] 57742 Protein Ql (U) Trace Abnormal NEG [facility] Comment on above: Performed By: #### 2 106-3 #### [facility] ([id number]) [address] [place] [address] 21926 R.B.CELLS 0 /hpf Normal 0-5 [facility] Comment on above: Performed By: #### 2 106-3 #### [facility] ([id number]) [address] [place] [address] 55698 Specific gravity (U) [Rel density] 1.025 Normal 1.003-1.035 [facility] Comment on above: Performed By: #### 2 106-3 #### [facility] ([id number]) [address] [place] [address] 67620 SQUAMOUS EPITHELIUM 2 /hpf Normal 0-5 [facility] Comment on above: Performed By: #### 2 106-3 #### [facility] ([id number]) [address] [place] [address] 55208 TURBIDITY CLEAR Normal CLEAR [facility] Comment on above: Performed By: #### 2 106-3 #### [facility] ([id number]) [address] [place] [address] 71898 Urobilinogen Qn (U) 1.0 {Jazmine'U}/dL Normal <1.1 [facility] Comment on above: Performed By: #### 2 106-3 #### [facility] ([id number]) [address] [place] [address] 92342 W.B.CELLS 0 /hpf Normal 0-5 [facility] Comment on above: Performed By: #### 2 106-3 #### [facility] ([id number]) [address] [place] [address] 51881 CHLAMYDIA/GC PCR, FLon 05-04 CHLAMYDIA/GC PCR, FL [...] are dependent on adequate specimen collection. Normal [facility] Comment on above: Performed By: #### 2 106-3 #### [facility] ([id number]) [address] [place] [address] 40984 Cytologyon 05-05-2023 Cytology Normal [facility] Comment on above: Result Comment: [facility] [address] [place] [address] Gynecologic Cytology Consultation Patient Name:ANTOINETTE RECIO:1995 (Age: 28)Gender:FTaken:4Reported:4Physician(s):Nieves Velasquez M.D. ([phone])Copy To: Rec. #:[id number]: #[id number] Final Cytologic Interpretation ThinPrep Pap Test (Cervical): Satisfactory for evaluation. A transformation zone component is present. NEGATIVE FOR INTRAEPITHELIAL LESION OR MALIGNANCY. Numerous neutrophilic leukocytes are present. j/05/21/2023 [facility] [address] [place] [address], License number: [id number]. Electronically Signed Out By FLAKO Houston(ASCP) Date of Last Menstrual Period: (None Given) Other Clinical Conditions: Z01.419 Cryptologist exam wo/abn findings Z12.72 Screeing for malignant neoplasm of vagina Z11.3 Encntr screen for infections w sexl mode of transmiss Source of Specimen ThinPrep Pap Test (Cervical) Thin Prep Pap (SUMMER ANALYST) Fee Code(s): G0145 ACUTE HEPATITIS PANELon ANTI HCV W/PCR REFLX Non-Reactive Normal NRCT [facility] Comment on above: Result Comment: If recent infection suspected, recommend repeat testing (>2 months). Mjasay-rd-jyilcy ratio is <0.80. Performed By: #### N UM #### [facility] ([id number]) [address] [place] [address] 26190 HEPATITIS A IGM Non-Reactive Normal NRCT [facility] Comment on above: Performed By: #### N UM #### [facility] ([id number]) [address] [place] [address] 77569 HEPATITIS B CORE IGM Negative Normal NEG [place] Comment on above: Performed By: #### N UM #### [facility] ([id number]) [address] [place] [address] 97853 HEPATITIS B SURF AG Negative Normal NEG [facility] Comment on above: Performed By: #### N UM #### [facility] ([id number]) [address] [place] [address] 02417 COMPLETE BLOOD COUNTon 04-15 Erythrocyte distribution width (RBC) [Ratio] 18.6 % High 11.5-15.0 [facility] Comment on above: Performed By: #### C BC, CMP, 2532-0, 3084-1, AHP, 13084-2, 59781-5, 06382-9, 15893-5 #### [facility] ([id number]) [address], [address] [place] [address] Hematocrit (Bld) [Volume fraction] 34.6 % Low 35-47 [facility] Comment on above: Performed By: #### C BC, CMP, 2532-0, 3084-1, AHP, 82161-7, 72516-7, 29243-5, 58809-0 #### [facility] ([id number]) [address], [address] [place] [address] Hemoglobin (Bld) [Mass/Vol] 11.4 g/dL Low 11.7-15.5 [facility] Comment on above: Performed By: #### C BC, CMP, 2532-0, 3084-1, AHP, 89104-1, 24162-4, 30667-2, 12417-9 #### [facility] ([id number]) [address], [address] [place] [address] MCH (RBC) [Entitic mass] 26.7 pg Low 27-34 [facility] Comment on above: Performed By: #### C BC, CMP, 2532-0, 3084-1, AHP, 22185-9, 95736-8, 61741-9, 26481-5 #### [facility] ([id number]) [address], [address] [place] [address] MCHC (RBC) [Mass/Vol] 32.8 g/dL Normal 32-36 [facility] Comment on above: Performed By: #### C BC, CMP, 2532-0, 3084-1, AHP, 30397-1, 72435-5, 38958-1, 33032-6 #### [facility] ([id number]) [address], [address] [place] [address] MCV (RBC) [Entitic vol] 81 fL Normal 80-100 P [facility] Comment on above: Performed By: #### C BC, CMP, 2532-0, 3084-1, AHP, 93741-0, 99523-1, 07002-6, 18702-4 #### [facility] ([id number]) [address], [address] [place] [address] Platelet mean volume (Bld) [Entitic vol] 8.5 fL Normal 7-12 [facility] Comment on above: Performed By: #### C BC, CMP, 2532-0, 3084-1, AHP, 20249-0, 53360-8, 26659-9, 38181-3 #### [facility] ([id number]) [address], [address] [place] [address] Platelets (Bld) [#/Vol] 351 10*3/uL Normal 150-450 [facility] Comment on above: Performed By: #### C BC, CMP, 2532-0, 3084-1, AHP, 35007-3, 10702-8, 08219-2, 06241-2 #### [facility] ([id number]) [address], [address] [place] [address] RBC COUNT 4.26 X10E12/L Normal 3.80-5.20 [facility] Comment on above: Performed By: #### C BC, CMP, 2532-0, 3084-1, AHP, 41744-1, 31233-3, 13069-5, 44620-1 #### [facility] ([id number]) [address], [address] [place] [address] WBC (Bld) [#/Vol] 8.9 10*3/uL Normal 4.0-11.0 [facility] Comment on above: Performed By: #### C BC, CMP, 2532-0, 3084-1, AHP, 27766-0, 81837-5, 90321-0, 00724-2 #### [facility] ([id number]) [address], [address] [place] [address] COMPREHENSIVE METABOLIC PANE Shaji 04-16-2023 Albumin [Mass/Vol] 4.4 g/dL Normal 3.2-5.3 [facility] Comment on above: Performed By: #### C BC, CMP, 2532-0, 3084-1, AHP, 23969-7, 33611-8, 74054-1, 90417-8 #### [facility] ([id number]) [address], [address] [place] [address] ALP [Catalytic activity/Vol] 42 U/L Normal 39-130 [facility] Comment on above: Performed By: #### C BC, CMP, 2532-0, 3084-1, AHP, 94333-0, 50891-2, 23880-2, 32670-2 #### [facility] ([id number]) [address], [address] [place] [address] ALT [Catalytic activity/Vol] 12 U/L Normal 0-31 [facility] Comment on above: Performed By: #### C BC, CMP, 2532-0, 3084-1, AHP, 56567-1, 19260-8, 86735-1, 56298-3 #### [facility] ([id number]) [address] [place] [address] Anion gap [Moles/Vol] 9 mmol/L Normal 5-15 [facility] Comment on above: Performed By: #### C BC, CMP, 2532-0, 3084-1, AHP, 17423-6, 50677-0, 51656-7, 15430-2 #### [facility] ([id number]) [address] [place] [address] AST [Catalytic activity/Vol] 13 U/L Normal 0-41 [facility] Comment on above: Performed By: #### C BC, CMP, 2532-0, 3084-1, AHP, 35813-0, 76195-8, 58674-3, 33069-5 #### [facility] ([id number]) [address] [place] [address] Bilirubin [Mass/Vol] 0.7 mg/dL Normal 0.3-1.2 [place] Comment on above: Performed By: #### C BC, CMP, 2532-0, 3084-1, AHP, 09911-0, 38571-6, 42073-2, 18651-5 #### [facility] ([id number]) [address] [place] [address] Calcium [Mass/Vol] 9.4 mg/dL Normal 8.5-10.5 [facility] Comment on above: Performed By: #### C BC, CMP, 2532-0, 3084-1, AHP, 90683-0, 17977-6, 19407-8, 14035-5 #### [facility] ([id number]) [address] [place] [address] Chloride [Moles/Vol] 103 mmol/L Normal 98-109 [place] Comment on above: Performed By: #### C BC, CMP, 2532-0, 3084-1, AHP, 85000-9, 22862-6, 95643-6, 19639-1 #### [facility] ([id number]) [address] [place] [address] CO2 [Moles/Vol] 24 mmol/L Normal 22-32 [facility] Comment on above: Performed By: #### C BC, CMP, 2532-0, 3084-1, AHP, 57751-7, 11688-9, 51213-3, 86766-7 #### [facility] ([id number]) [address] [place] [address] Creatinine [Mass/Vol] 0.63 mg/dL Normal 0.40-1.00 [facility] Comment on above: Result Comment: METH OD TRACEABLE TO IDMS STANDARD Performed By: #### C SARWAT, CMP, 2532-0, 3084-1, AHP, 26925-2, 92977-1, 61265-0, 02429-1 #### [facility] ([id number]) [address] [place] [address] eGFR (CKD-EPI) NON-RACE DEPENDENT >90 Normal >59 [facility] Comment on above: Result Comment: Reported eGFR is based on the CKD-EPI 2020 equation that does not use a race coefficient. Performed By: #### C SARWAT, CMP, 2532-0, 3084-1, AHP, 27057-9, 76967-5, 37523-9, 10600-8 #### [facility] ([id number]) [address] [place] [address] Glucose [Mass/Vol] 84 mg/dL Normal 65-99 [facility] Comment on above: Performed By: #### C OPAL FAM, 2532-0, 3084-1, AHP, 35950-1, 51142-1, 12711-5, 36329-6 #### [facility] ([id number]) [address] [address] [place] [address] Potassium [Moles/Vol] 3.4 mmol/L Low 3.5-5.0 [facility] Comment on above: Performed By: #### C BC, CMP, 2532-0, 3084-1, AHP, 31952-7, 83360-0, 61755-4, 11047-4 #### [facility] ([id number]) [address] [address] [place] [address] Protein [Mass/Vol] 6.9 g/dL Normal 6.0-8.0 [facility] Comment on above: Performed By: #### C BC, CMP, 2532-0, 3084-1, AHP, 29074-6, 74134-1, 27103-2, 75861-8 #### [facility] ([id number]) [address] [place] [address] Sodium [Moles/Vol] 136 mmol/L Normal 134-146 [facility] Comment on above: Performed By: #### C BC, CMP, 2532-0, 3084-1, AHP, 74776-1, 59346-7, 00408-0, 32679-5 #### [facility] ([id number]) [address] [facility] [place] [address] Urea nitrogen [Mass/Vol] 11 mg/dL Normal 5-23 [facility] Comment on above: Performed By: #### C BC, CMP, 2532-0, 3084-1, AHP, 68946-0, 00684-9, 71652-1, 30871-3 #### [facility] ([id number]) [address] [facility] [place] [address] DRUG SCREEN, URINEon 024 AMPHETAMINE/METHAMP Negative Normal NEG [facility] Comment on above: Result Comment: AMPH /METH screening cut off = 1000 ng/mL Performed By: #### N UM #### [facility] ([id number]) [address] [place] [id number] BARBITURATES Negative Normal NEG [facility] Comment on above: Result Comment: Carmella iturates screening cut off value = 200 ng/mL Performed By: #### N UM #### [facility] ([id number]) [address] [place] [address] BENZODIAZEPINES Negative Normal NEG [facility] Comment on above: Result Comment: German odiazepines screening cut off value = 200 ng/mL Performed By: #### N UM #### [facility] ([id number]) [address] [place] [address] CANNABINOIDS Positive Abnormal NEG [facility] Comment on above: Result Comment: Conf irmation available upon request. Cannabinoids/THC screening cut off value = 50 ng/mL Performed By: #### N UM #### [facility] ([id number]) [address] [place] [address] 19807 COCAINE METABOLITE Negative Normal NEG [facility] Comment on above: Result Comment: Coca ine screening cut off value = 300 ng/mL Performed By: #### N UM #### [facility] ([id number]) [address] [place] [address] 03329 ECSTASY Negative Normal NEG [facility] Comment on above: Result Comment: Ecst asy screening cut off value = 500 ng/mL This report is intended for use in clinical monitoring or management of patients. Performed By: #### N UM #### [facility] ([id number]) [address] [place] [address] 52293 METHADONE Negative Normal NEG [facility] Comment on above: Result Comment: Meth adone screening cut off value = 300 ng/mL. Performed By: #### N UM #### [facility] ([id number]) [address] [place] [address] 22717 OPIATES Negative Normal NEG [facility] Comment on above: Result Comment: Opia markie screening cut off value = 300 ng/mL NOTE: This test is used for the detection of codeine, hydrocodone (>1000 ng/mL), morphine and hydromorphone (>900 ng/mL) in urine. Performed By: #### N UM #### [facility] ([id number]) [address] [place] [address] [place] [address] OXYCODONE Negative Normal NEG [facility] Comment on above: Result Comment: Oxyc odone screening cut off value = 300 ng/mL NOTE: This test is used for the detection of oxycodone and oxymorphone in urine. Performed By: #### N UM #### [facility] ([id number]) [address] [place] [address] 17958 PHENCYCLIDINE Negative Normal NEG [facility] Comment on above: Result Comment: Phen cyclidine screening cut off value = 25 ng/mL Performed By: #### N UM #### [facility] ([id number]) [address] [place] [address] 17932 HIV 1+2 Ab+HIV1 p24 Ag IA Ql on 04-16-2023 HIV 1 and 2 Ab/Ag Screen Non-Reactive Normal NRCT [facility] Comment on above: Result Comment: This information [...] diagnoses. Performed By: #### N UM #### [facility] ([id number]) [address] [place] [address] 45832 LDH [Catalytic activity/Vol] on 04-16-2023 LDH 156 U/L Normal 100-235 [facility] Comment on above: Performed By: #### N UM #### [facility] ([id number]) [address] [place] [address] 00266 PROTEIN CREAT RATIOon 2023 RANDOM URINE PROTEIN 180 mg/L High <120 [place] Comment on above: Performed By: #### N UM #### [facility] ([id number]) [address] [place] [address] 46576 U/PRO/PROJECT ACCOUNTANT RATIO CALC 0.07 Normal <0.2 [place] Comment on above: Result Comment: Neph rotic Syndrome is associated with ratios >3.5 Performed By: #### N UM #### [facility] ([id number]) [address] [place] [address] 60094 URINE CREATININE,RDM 273.50 mg/dL Normal [facility] Comment on above: Performed By: #### N UM #### [facility] ([id number]) [address] [place] [address] 97641 Rubella virus Ab Ql (S)on RUBELLA IMMUNE IgG 3.1 AI Normal [facility] Comment on above: Result Comment: Interpretation-------- <0.8 NEGATIVE-considered Not Immune 0.8-0.9 EQUIVOCAL-consider retesting with new specimen >0.9 POSITIVE-considered Immune Performed By: #### N UM #### [facility] ([id number]) [address] [place] [address] 12740 T. pallidum IgG+IgM IA Ql (S )on 04-16-2023 Syphilis Total <0.2 Normal 0.0-0.8 [facility] Comment on above: Result Comment: NON REACTIVE No serologic evidence of infection to Treponema pallidum (syphilis). Repeat testing may be considered in patients with suspected acute or primary syphilis in 2 to 4 weeks. Performed By: #### N UM #### [facility] ([id number]) [address] [place] [address] 90732 URIC ACIDon 04-16-2023 Urate [Mass/Vol] 7.5 mg/dL High 2.6-7.2 [facility] Comment on above: Performed By: #### N UM #### [facility] ([id number]) [address] [place] [address] 62884 URINALYSISon 04-16-2023 Bilirubin Ql (U) Negative Normal NEG [facility] BLOOD/HGB Negative Normal NEG [facility] CA OXALATE CRYSTALS PRESENT Abnormal NONE [facility] Color (U) BROWN Abnormal YELLOW [facility] Glucose Ql (U) Negative Normal NEG [facility] Ketones Ql (U) Negative Normal NEG [facility] Leukocyte esterase Test strip Ql (U) Small Abnormal NEG [facility] MUCOUS PRESENT Abnormal NONE [facility] Nitrite Ql (U) Negative Normal NEG [facility] pH (U) 6.0 [pH] Normal 5.0-8.5 [facility] Protein Ql (U) 30 mg/dL Abnormal NEG [facility] R.B.CELLS 2 /hpf Normal 0-5 [facility] Specific gravity (U) [Rel density] 1.030 Normal 1.003-1.035 [facility] SQUAMOUS EPITHELIUM >27 High 0-5 [facility] TURBIDITY CLOUDY Abnormal CLEAR [facility] Urobilinogen (U) [Mass/Vol] mg/dL Normal <1.1 [facility] W.B.CELLS <1 Normal 0-5 [facility] URINE CULTUREon 04-16-2023 Bacteria identified Cx Nom (U) CULTURE RESULTS 50-100,000 ORGANISMS/ML NORMAL UROGENITAL YOGESH Normal [facility] Comment on above: Performed By: #### 2 106-3 #### [facility] ([id number]) [address] [place] [address] [place] [address] US PREG LESS THAN 14 WKS WIT H TRANSVAGINALon 04-16-2023 US PREG LESS THAN 14 WKS WITH TRANSVAGINAL US PREG LESS THAN 14 WKS WITH TRANSVAGINAL US PREG LESS THAN 14 WKS WITH TRANSVAGINAL: 04/16/2023 1:04 PM Clinical: Check dates and viability. Real-time transabdominal and transvaginal sonography pelvis performed.. No comparison. There is a single live intrauterine . [place]-rump length of 2.9 mm corresponds to 5 [...] Cook MD on 04/16/2023 6:58 PM Normal [facility] VZV IgG IA Ql (S)on 04-16-19 24 VARICELLA IgG 1.1 AI High <0.9 [facility] Comment on above: Result Comment: Interpretation-------- <0.9 Negative 0.9 - 1.0 Equivocal >1.0 Positive Performed By: #### N UM #### [facility] ([id number]) [address] [place] [address] 58086 CBC AND AUTO DIFFon 03-30-19 24 ABSOLUTE BASOPHIL 0.1 X10E9/L Normal 0.0-0.2 [facility] Comment on above: Performed By: #### C SANAM [facility], 55135-4 #### [facility] ([id number]) [address] [place] [address] 70869 ABSOLUTE NEUTROPHIL 7.6 X10E9/L High 1.5-6.6 [place] Comment on above: Performed By: #### C OPAL MARION, 44170-9 #### [facility] ([id number]) [address] [place] [address] 77558 Basophils/100 WBC (Bld) 0.7 % Normal P [facility] Comment on above: Performed By: #### C OPAL MARION, 11897-7 #### [facility] ([id number]) [address] [place] [address] Eosinophils (Bld) [#/Vol] 0.2 10*3/uL Normal 0.0-0.4 [facility] Comment on above: Performed By: #### Doretha MARION CMP, #### [facility] ([id number]) [address] [place] [address] 13672 Eosinophils/100 WBC (Bld) 1.8 % Normal [facility] Comment on above: Performed By: #### Doretha MARION [facility], #### [facility] ([id number]) [address] [place] [address] 82685 Erythrocyte distribution width (RBC) [Ratio] 18.4 % High 11.5-15.0 [facility] Comment on above: Performed By: #### Doretha MARION [facility], #### [facility] ([id number]) [address] [place] [address] 25388 Hematocrit (Bld) [Volume fraction] 35.8 % Normal 35-47 [facility] Comment on above: Performed By: #### Doretha MARION [facility], #### [facility] ([id number]) [address] [place] [address] 94148 Hemoglobin (Bld) [Mass/Vol] 11.7 g/dL Normal 11.7-15.5 [facility] Comment on above: Performed By: #### Doretha MARION [facility], #### [facility] ([id number]) [address] [place] [address] 73934 Lymphocytes (Bld) [#/Vol] 2.2 10*3/uL Normal 1.0-3.5 [facility] Comment on above: Performed By: #### Doretha MARION CMP, #### [facility] ([id number]) [address] [place] [address] 86836 Lymphocytes/100 WBC (Bld) 20.7 % Normal [facility] Comment on above: Performed By: #### C OPAL MARION, #### [facility] ([id number]) [address] [place] [address] 67922 MCH (RBC) [Entitic mass] 26.2 pg Low 27-34 [facility] Comment on above: Performed By: #### Doretha MARION CMP, #### [facility] ([id number]) [address] [place] [address] 06501 MCHC (RBC) [Mass/Vol] 32.8 g/dL Normal 32-36 [facility] Comment on above: Performed By: #### Doretha MARION CMP, #### [facility] ([id number]) [address] [place] [address] 02770 MCV (RBC) [Entitic vol] 80 fL Normal 80-100 [facility] Comment on above: Performed By: #### Doretha MARION CMP, #### [facility] ([id number]) [address] [place] [address] 74659 Monocytes (Bld) [#/Vol] 0.5 10*3/uL Normal 0-0.9 [facility] Comment on above: Performed By: #### Doretha MARION CMP, #### [facility] ([id number]) [address] [place] [address] 05912 Monocytes/100 WBC (Bld) 5.2 % Normal [facility] Comment on above: Performed By: #### Doretha MARION CMP, #### [facility] ([id number]) [address] [place] [address] 10469 Neutrophils/100 WBC (Bld) 71.6 % Normal [facility] Comment on above: Performed By: #### Doretha MARION CMP, #### [facility] ([id number]) [address] [place] [address] 36167 Platelet mean volume (Bld) [Entitic vol] 8.3 fL Normal 7-12 [facility] Comment on above: Performed By: #### C SANAM CMP, #### [facility] ([id number]) [address] [place] [address] 46912 Platelets (Bld) [#/Vol] 337 10*3/uL Normal 150-450 [facility] Comment on above: Performed By: #### Doretha MARION CMP, #### [facility] ([id number]) [address] [place] [address] 53725 RBC COUNT 4.48 X10E12/L Normal 3.80-5.20 [facility] Comment on above: Performed By: #### Doretha MARION CMP, #### [facility] ([id number]) [address] [place] [address] 49093 WBC (Bld) [#/Vol] 10.6 10*3/uL Normal 4.0-11.0 [facility] Comment on above: Performed By: #### Doretha MARION CMP, #### [facility] ([id number]) [address] [place] [address] 80149 COMPREHENSIVE METABOLIC PANE Shaji 03-30-2023 Albumin [Mass/Vol] 4.4 g/dL Normal 3.2-5.3 [facility] Comment on above: Performed By: #### C SANAM CMP, #### [facility] ([id number]) [address] [place] [address] 49797 ALP [Catalytic activity/Vol] 40 U/L Normal 39-130 [facility] Comment on above: Performed By: #### Doretha MARION CMP, #### [facility] ([id number]) [address] [place] [address] 68138 ALT [Catalytic activity/Vol] 12 U/L Normal 0-31 [facility] Comment on above: Performed By: #### C BCA, CMP, #### [facility] ([id number]) [address] [place] [address] 45700 Anion gap [Moles/Vol] 8 mmol/L Normal 5-15 [facility] Comment on above: Performed By: #### C BCA, CMP, #### [facility] ([id number]) [address] [place] [address] 74146 AST [Catalytic activity/Vol] 16 U/L Normal 0-41 [facility] Comment on above: Performed By: #### C BCA, CMP, #### [facility] ([id number]) [address] [place] [address] 01427 Bilirubin [Mass/Vol] 0.5 mg/dL Normal 0.3-1.2 [place] Comment on above: Performed By: #### C BCA, CMP, #### [facility] ([id number]) [address] [place] [address] 34358 Calcium [Mass/Vol] 9.2 mg/dL Normal 8.5-10.5 [facility] Comment on above: Performed By: #### C BCA, CMP, #### [facility] ([id number]) [address] [place] [address] 54973 Chloride [Moles/Vol] 105 mmol/L Normal 98-109 [place] Comment on above: Performed By: #### C BCA, CMP, #### [facility] ([id number]) [address] [place] [address] 25375 CO2 [Moles/Vol] 24 mmol/L Normal 22-32 [facility] Comment on above: Performed By: #### C OPAL MARION, 06114-9 #### [facility] ([id number]) [address] [place] [address] 99039 Creatinine [Mass/Vol] 0.74 mg/dL Normal 0.40-1.00 [facility] Comment on above: Result Comment: METH OD TRACEABLE TO IDMS STANDARD Performed By: #### C OPAL AMRION, #### [facility] ([id number]) [address] [place] [address] 60492 eGFR (CKD-EPI) NON-RACE DEPENDENT >90 Normal >59 [facility] Comment on above: Result Comment: Reported eGFR is based on the CKD-EPI 2020 equation that does not use a race coefficient. Performed By: #### C OPAL MARION, #### [facility] ([id number]) [address] [place] [address] 78310 Glucose [Mass/Vol] 89 mg/dL Normal 65-99 [facility] Comment on above: Performed By: #### C OPAL MARION, #### [facility] ([id number]) [address] [place] [address] 53840 Potassium [Moles/Vol] 3.7 mmol/L Normal 3.5-5.0 [facility] Comment on above: Performed By: #### C OPAL MARION, #### [facility] ([id number]) [address] [place] [address] 70318 Protein [Mass/Vol] 7.4 g/dL Normal 6.0-8.0 [facility] Comment on above: Performed By: #### C OPAL MARION, #### [facility] ([id number]) [address] [place] [address] 25835 Sodium [Moles/Vol] 137 mmol/L Normal 134-146 [facility] Comment on above: Performed By: #### C BCA, CMP, 05191-3 #### [facility] ([id number]) [address] [place] [address] 23509 Urea nitrogen [Mass/Vol] 10 mg/dL Normal 5-23 [facility] Comment on above: Performed By: #### C BCA, CMP, 58395-3 #### [facility] ([id number]) [address] [place] [address] 14342 HCG ( test) Ql (U)o n 03-30-2023 Beta HCG ( test) Ql (U) Positive Abnormal NEG [facility] Comment on above: Performed By: #### 2 106-3 #### [facility] ([id number]) [address] [place] [address] 10735 HCG.beta subunit IA 3rd IS Q non 03-30-2023 HCG.beta subunit Qn 80 m[IU]/mL Normal [place] Comment on above: Result Comment: NEW REFERENCE [...] Performed By: #### C BCA, CMP, #### [facility] ([id number]) [address] [place] [address] 99154 URINE CULTUREon 03-30-2023 Bacteria identified Cx Nom (U) CULTURE RESULTS 10-50,000 ORGANISMS/mL NORMAL UROGENITAL YOGESH Normal [facility] Comment on above: Performed By: #### 6 30-4 #### [facility] ([id number]) [address] [place] [address], [address] [place] [address] URN MACROSCOPIC NURon 2023 BILIRUBIN YARI Negative Normal NEG [facility] Comment on above: Performed By: #### N UM #### [facility] ([id number]) [address] [place] [address] [place] [address] BLOOD/HGB YARI Negative Normal NEG [facility] Comment on above: Performed By: #### N UM #### [facility] ([id number]) [address] [place] [address] [place] [address] GLUCOSE YARI Negative Normal NEG [facility] Comment on above: Performed By: #### N UM #### [facility] ([id number]) [address] [place] [address], [place] [address] KETONES YARI Negative Normal NEG [facility] Comment on above: Performed By: #### N UM #### [facility] ([id number]) [address] [place] [address], [place] [address] LEUKOCYTE ESTERASE YARI Negative Normal NEG [facility] Comment on above: Performed By: #### N UM #### [facility] ([id number]) [address] [place] [address] [place] [address] NITRITE YARI Negative Normal NEG [facility] Comment on above: Performed By: #### N UM #### [facility] ([id number]) [address] [place] [address] [place] [address] PH YARI 6.0 Normal 5.0-8.5 [facility] Comment on above: Performed By: #### N UM #### [facility] ([id number]) [address] [place] [address] PROTEIN YARI Negative Normal NEG [facility] Comment on above: Performed By: #### N UM #### [facility] ([id number]) [address] [place] [address] SPECIFIC GRAVITY YARI >=1.030 Normal 1.003-1.[address] [facility] Comment on above: Performed By: #### N UM #### [facility] ([id number]) [address] [place] [address] UROBILINOGEN YARI 0.2 eu/dL Normal <1.1 [facility] Comment on above: Performed By: #### N UM #### [facility] ([id number]) [address] [place] [address] 17749 US PREG LESS THAN 14 WKS WIT [...] Eckert MD on 03/30/2023 8:48 PM Normal [facility] Cholesterol [Mass/volume] in Serum or PlasmaOrdered By: Dar Nation on 11-28-2022 Cholesterol [Mass/Vol] 200 mg/dL 140-200 [facility] Comment on above: Chol less than 200 m g/dl low riskChol 201-239 mg/dl borderline riskChol 240 mg/dl and greater high risk Cholesterol in LDL Calc [Mas s/Vol]Ordered By: Dar Nation on 11-28-2022 Cholesterol in LDL [Mass/Vol] 75 mg/dL 0-100 [facility] Comment on above: LDL ATP III CLASSIFI CATIONLDL less than 100 mg/dL OptimalLDL 100-129 mg/dL Near or above optimalLDL 130-159 mg/dL Borderline highLDL 160-189 mg/dL HighLDL greater than 189 mg/dL Very high Cholesterol in VLDL Calc [Ma ss/Vol]Ordered By: Dar Nation on 11-28-2022 Cholesterol in VLDL [Mass/Vol] 16 mg/dL [facility] Lipid Panelon 11-28-2022 Cholesterol [Mass/Vol] 200 mg/dL Normal 140-200 [facility] Comment on above: Result Comment: Chol less than 200 mg/dl low risk Chol 201-239 mg/dl borderline risk Chol 240 mg/dl and greater high risk Performed By: #### H S TROP, CMP, ETOH, CBC, TSH3 #### [facility] [address] [place] [address] [place] Cholesterol in HDL [Mass/Vol] 109 mg/dL High 23-92 [facility] Comment on above: Result Comment: HDL CHOL ATP-III CLASSIFICATION Cardiovascular Risk HDL > or equal to 60 mg/dL LOW HDL < 40 mg/dL HIGH Performed By: #### H S TROP, CMP, ETOH, CBC, TSH3 #### [facility] [address] [place] [address] [place] Cholesterol.total/Sarah sterol in HDL [Mass ratio] 1.8 {ratio} Normal <5.0 [facility] Comment on above: Performed By: #### H S TROP, CMP, ETOH, CBC, TSH3 #### [facility] [address] [place] [address] [place] LDL Cholesterol,Calculated 75 mg/dL Normal 0-100 [facility] Comment on above: Result Comment: LDL ATP III CLASSIFICATION LDL less than 100 mg/dL Optimal LDL 100-129 mg/dL Near or above optimal LDL 130-159 mg/dL Borderline high LDL 160-189 mg/dL High LDL greater than 189 mg/dL Very high Performed By: #### H S TROP, CMP, ETOH, CBC, TSH3 #### [facility] [address] Triglyceride w/Reflex 80 mg/dL Normal 0-149 [facility] Comment on above: Result Comment: TRIG ATP III CLASSIFICATION TRIG less than 150 mg/dL Normal TRIG 150-199 mg/dL Borderline high TRIG 200-500 mg/dL High TRIG greater than 500 mg/dL Very high Standard traceable to the Center for Disease Conrtrol and Prevention (CDC) test method. Performed By: #### H S TROP, CMP, ETOH, CBC, TSH3 #### [facility] [address] VLDL CHOLESTEROL 16 mg/dL Normal [facility] Comment on above: Performed By: #### H S TROP, CMP, ETOH, CBC, TSH3 #### [facility] [address] Serum or plasma high density lipoprotein (HDL) cholesterol measurementOrdered By: Dar Nation on 11-28-2022 Cholesterol in HDL [Mass/Vol] 109 mg/dL 23-92 [facility] Comment on above: HDL CHOL ATP-III CLA SSIFICATION Cardiovascular RiskHDL > or equal to 60 mg/dL LOWHDL < 40 mg/dL HIGH Serum or plasma total choles terol/high density lipoprotein (HDL) cholesterol mass ratOrdered By: Dar Nation on 11-28-2022 Cholesterol.total/Sarah sterol in HDL [Mass ratio] 1.8 {ratio} <5.0 [facility] Thyroid Stim Hormone w/Rflxo n 11-28-2022 Thyroid Stim Hormone w/Rflx 1.79 u[iU]/mL Normal 0.45-5.33 [facility] Comment on above: Performed By: #### H S TROP, CMP, ETOH, CBC, TSH3 #### [facility] [address] Thyrotropin [Units/volume] i n Serum or PlasmaOrdered By: Dar Nation on 11-28-2022 TSH Qn 1.79 m[IU]/L 0.45-5.33 [facility] Triglyceride [Mass/volume] i n Serum or PlasmaOrdered By: Dar Nation on 11-28-2022 Triglyceride [Mass/Vol] 80 mg/dL 0-149 [facility] Comment on above: TRIG ATP III CLASSIF ICATIONTRIG less than 150 mg/dL NormalTRIG 150-199 mg/dL Borderline highTRIG 200-500 mg/dL High TRIG greater than 500 mg/dL Very highStandard traceable to the Center for Disease Conrtrol and Prevention (CDC) test method. Vitamin D 25 Hydroxy Totalon 11-28-2022 Vitamin D 25 Hydroxy Total 32.8 ng/mL Normal 30-100 [facility] Comment on above: Result Comment: JESSICA MIN D STATUS 25([place])VITAMIN D RANGE (ng/mL) Deficient <20 Insufficient 20 to <30 Sufficient 30 to 100 Reference: Aye Palacios, Geremias YOUNG, et al. Evaluation,treatment, and prevention of vitamin D deficiency; an Endocrine Society clinical practice guideline. JCEM. 2010; 96(7):1911-30. PERFORMED BY: [place] [address] PATHOLOGIST [employer] ASSISTANT DEPARTMENT HEAD KELLIE ALVARADO M.D. Performed By: #### H S TROP, CMP, ETOH, CBC, TSH3 #### [address] Vitamin D+Metabolites [Mass/ volume] in Serum or PlasmaOrdered By: Dar Nation on 11-28-2022 Vitamin D+Metabolites [Mass/Vol] 32.8 ng/mL 30-100 [facility] Comment on above: VITAMIN D STATUS 25( [place])VITAMIN D RANGE (ng/mL) Deficient <20 Insufficient 20 to <30Sufficient 30 to 100Reference: Aye Palacios, Geremias YOUNG, et al. Evaluation,treatment, and prevention of vitamin D deficiency; an Endocrine Society clinical practice guideline. JCEM. 2010; 96(7):1911-30. Alanine aminotransferase [En zymatic activity/volume] in Serum or PlasmaOrdered By: Sara Tripathi on 11-27-2022 ALT [Catalytic activity/Vol] 19 U/L 7-52 [facility] Albumin [Mass/volume] in Ser um or Plasma by Bromocresol green (BCG) dye binding methoOrdered By: Sara Tripathi on 11-27-2022 Albumin BCG dye [Mass/Vol] 4.2 g/dL 3.5-5.7 [facility] Alkaline phosphatase [Enzyma tic activity/volume] in Serum or PlasmaOrdered By: Sara Tripathi on 11-27-2022 ALP [Catalytic activity/Vol] 56 U/L 34-104 [facility] Amphetamine Screen Ql (U)Ord ered By: Sara Tripathi on 11-27-2022 Amphetamines Ql (U) Negative Negative [facility] Aspartate aminotransferase [ Enzymatic activity/volume] in Serum or PlasmaOrdered By: Sara Tripathi on 11-27-2022 AST [Catalytic activity/Vol] 31 U/L 13-39 [facility] Automated erythrocytes count in urine sediment (number/area)Ordered By: Sara Tripathi on 11-27-2022 RBC Auto (Urine sed) [#/Area] 5-9 [HPF] 0-4 [facility] Automated leukocytes count i n urine sediment (number/area)Ordered By: Sara Tripathi on 11-27-2022 WBC Auto (Urine sed) [#/Area] 50-100 [HPF] 0-4 [facility] Automated urine hyaline cast s count (number/volume)Ordered By: Sara Tripathi on 11-27-2022 Hyaline casts Auto (U) [#/Vol] None seen [LPF] 0-1 [facility] Barbiturates [Presence] in U rine by Screen methodOrdered By: Sara Tripathi on 11-27-2022 Barbiturates Screen Ql (U) Negative Negative [facility] Basophils Auto (Bld) [#/Vol] Ordered By: Sara Tripathi on 11-27-2022 Basophils (Bld) [#/Vol] 0.2 10*3/uL 0.0-0.2 [facility] Basophils/100 WBC Auto (Bld) Ordered By: Sara Tripathi on 11-27-2022 Basophils/100 WBC (Bld) 3.0 % . [facility] Benzodiazepines Screen Ql (U )Ordered By: Sara Tripathi on 11-27-2022 Benzodiazepines Ql (U) Negative Negative Fi [facility] Benzoylecgonine [Presence] i n Urine by Screen methodOrdered By: Sara Tripathi on 11-27-2022 Benzoylecgonine Screen Ql (U) Negative Negative [facility] Bilirubin Test strip Ql (U)O rdered By: Sara Tripathi on 11-27-2022 Bilirubin Ql (U) Negative Negative [facility] Bilirubin.total [Mass/volume ] in Serum or PlasmaOrdered By: Sara Tripathi on 11-27-2022 Bilirubin [Mass/Vol] 0.7 mg/dL 0.3-1.0 [facility] CT abdomen pelvis wo conon 1 CT abdomen pelvis wo [place] [address] CT Scan Report Signed Patient: Antoinette Recio MR#: [id number] : 1995 Acct:[id number] Age/Sex: 27 / F ADM Date: 11/27/22 Loc: ER Room: Type: [facility] ER Attending Dr: Copies to: Sara Tripathi [...] Vipul Rucker M.D.11/27/2022 11:17 AM Dictation Location: [place] [address] Transcribed By: [facility] 11/27/22 111 Dictated By: Vipul Rucker II, MD 11/27/22 111 Signed By: 11/27/22 111 Normal [facility] Calcium [Mass/volume] in Ser um or PlasmaOrdered By: Sara Tripathi on 11-27-2022 Calcium [Mass/Vol] 9.4 mg/dL 8.6-10.3 [facility] Cannabinoids [Presence] in U rine by Screen methodOrdered By: Sara Tripathi on 11-27-2022 Cannabinoids Screen Ql (U) Positive Negative [facility] Comment on above: These are unconfirme d results and should not be used for legal purposes. Drug Cut-Off Concentration: AMPH 1000 ng/mL CARMELLA 200 ng/mL GERMAN 200 ng/mL COCM 300 ng/mL OP 300 ng/mL PCP 25 ng/mL THC 20 ng/mL Carbon dioxide, total [Moles /volume] in Serum or PlasmaOrdered By: Sara Tripathi on 11-27-2022 CO2 [Moles/Vol] 24.9 mmol/L 21.0-31.0 [facility] Casts typing in urine sedime nt by light microscopyOrdered By: Sara Tripathi on 11-27-2022 Casts LM Nom (Urine sed) None seen [LPF] None Seen [facility] Chloride [Moles/volume] in S phil or PlasmaOrdered By: Sara Tripathi on 11-27-2022 Chloride [Moles/Vol] 101 mmol/L 98-107 [facility] Coarse granular casts count in urine sediment by microscopy low power field (number/aOrdered By: Sara Tripathi on 11-27-2022 Coarse Granular Casts LM.LPF (Urine sed) [#/Area] 0-1 [LPF] 0-1 [facility] Color Auto (U)Ordered By: Donna Tripathi on 11-27-2022 Color (U) Dark yellow Yellow [facility] Complete Blood Count Auto Di ffon 11-27-2022 Basophils (Bld) [#/Vol] 0.2 10*3/uL Normal 0.0-0.2 [facility] Comment on above: Result Comment: PERF ORMED BY: [place] [address] PATHOLOGIST GROUP FITNESS ASSISTANT DEPARTMENT HEAD KELLIE ALVARADO M.D. Performed By: #### H S TROP, CMP, ETOH, CBC, TSH3 #### [facility] [address] [place] [address] Basophils/100 WBC (Bld) 3.0 % Normal . [facility] Comment on above: Performed By: #### H S TROP, CMP, ETOH, CBC, TSH3 #### [facility] [address] [place] [address] Eosinophils (Bld) [#/Vol] 0.1 10*3/uL Normal 0.0-0.45 [facility] Comment on above: Performed By: #### H S TROP, CMP, ETOH, CBC, TSH3 #### [address] Eosinophils/100 WBC (Bld) 1.1 % Normal . [facility] Comment on above: Performed By: #### H S TROP, CMP, ETOH, CBC, TSH3 #### [facility] [address] [place] [address] Erythrocyte distribution width (RBC) [Ratio] 15.9 % High 11.9-15.3 [facility] Comment on above: Performed By: #### H S TROP, CMP, ETOH, CBC, TSH3 #### [facility] [address] [place] [address] Hematocrit (Bld) [Volume fraction] 38.0 % Normal 34.0-46.4 [facility] Comment on above: Performed By: #### H S TROP, CMP, ETOH, CBC, TSH3 #### [address] Hemoglobin (Bld) [Mass/Vol] 12.5 g/dL Normal 11.8-15.4 [facility] Comment on above: Performed By: #### H S TROP, CMP, ETOH, CBC, TSH3 #### [address] Lymphocytes (Bld) [#/Vol] 0.8 10*3/uL Low 1.00-4.8 [facility] Comment on above: Performed By: #### H S TROP, CMP, ETOH, CBC, TSH3 #### [address] Lymphocytes/100 WBC (Bld) 11.3 % Normal . [facility] Comment on above: Performed By: #### H S TROP, CMP, ETOH, CBC, TSH3 #### [address] MCH (RBC) [Entitic mass] 28.8 pg Normal 24.7-34.3 [facility] Comment on above: Performed By: #### H S TROP, CMP, ETOH, CBC, TSH3 #### [address] MCV (RBC) [Entitic vol] 87.5 fL Normal 80-100 [facility] Comment on above: Performed By: #### H S TROP, CMP, ETOH, CBC, TSH3 #### [address] Mean Corpuscular HGB Conc 33.0 g/dL Normal 32.0-35.0 [facility] Comment on above: Performed By: #### H S TROP, CMP, ETOH, CBC, TSH3 #### [address] Monocytes (Bld) [#/Vol] 0.6 10*3/uL Normal 0.0-0.8 [facility] Comment on above: Performed By: #### H S TROP, CMP, ETOH, CBC, TSH3 #### [address] Monocytes/100 WBC (Bld) 17.41 % Normal 0.00-20.00 [facility] Comment on above: Performed By: #### H S TROP, CMP, ETOH, CBC, TSH3 #### [address] Monocytes/100 WBC (Bld) 8.9 % Normal . [facility] Comment on above: Performed By: #### H S TROP, CMP, ETOH, CBC, TSH3 #### [address] Neutrophils (Bld) [#/Vol] 5.1 10*3/uL Normal 1.8-7.7 [facility] Comment on above: Performed By: #### H S TROP, CMP, ETOH, CBC, TSH3 #### [address] Neutrophils/100 WBC (Bld) 75.7 % Normal . [facility] Comment on above: Performed By: #### H S TROP, CMP, ETOH, CBC, TSH3 #### [address] NRBC% 0.0 /100{WBC} Normal 0-0.5 [facility] Comment on above: Performed By: #### H S TROP, CMP, ETOH, CBC, TSH3 #### [address] Platelet mean volume (Bld) [Entitic vol] 7.1 fL Normal 6.3-10.7 [facility] Comment on above: Performed By: #### H S TROP, CMP, ETOH, CBC, TSH3 #### [address] Platelets (Bld) [#/Vol] 402 10*3/uL Normal 150-450 [facility] Comment on above: Performed By: #### H S TROP, CMP, ETOH, CBC, TSH3 #### [address] RBC (Bld) [#/Vol] 4.34 10*6/uL Normal 3.60-5.00 [facility] Comment on above: Performed By: #### H S TROP, CMP, ETOH, CBC, TSH3 #### [address] WBC (Bld) [#/Vol] 6.7 10*3/uL Normal 3.8-11.6 [facility] Comment on above: Performed By: #### H S TROP, CMP, ETOH, CBC, TSH3 #### [address] Comprehensive Metabolic Pane shaji 11-27-2022 Albumin [Mass/Vol] 4.2 g/dL Normal 3.5-5.7 [facility] Comment on above: Performed By: #### H S TROP, CMP, ETOH, CBC, TSH3 #### [address] Albumin/Globulin [Mass ratio] 1.4 {ratio} Normal [facility] Comment on above: Performed By: #### H S TROP, CMP, ETOH, CBC, TSH3 #### [address] ALP [Catalytic activity/Vol] 56 U/L Normal 34-104 [facility] Comment on above: Performed By: #### H S TROP, CMP, ETOH, CBC, TSH3 #### [address] ALT [Catalytic activity/Vol] 19 U/L Normal 7-52 [facility] Comment on above: Performed By: #### H S TROP, CMP, ETOH, CBC, TSH3 #### [address] Anion gap [Moles/Vol] 15.4 mmol/L High 6.0-15.0 [facility] Comment on above: Performed By: #### H S TROP, CMP, ETOH, CBC, TSH3 #### [facility] [address] AST [Catalytic activity/Vol] 31 U/L Normal 13-39 [facility] Comment on above: Performed By: #### H S TROP, CMP, ETOH, CBC, TSH3 #### [facility] [address] Bilirubin [Mass/Vol] 0.7 mg/dL Normal 0.3-1.0 [facility] Comment on above: Performed By: #### H S TROP, CMP, ETOH, CBC, TSH3 #### [facility] [address] Calcium [Mass/Vol] 9.4 mg/dL Normal 8.6-10.3 [facility] Comment on above: Performed By: #### H S TROP, CMP, ETOH, CBC, TSH3 #### [facility] [address] Chloride [Moles/Vol] 101 mmol/L Normal 98-107 [facility] Comment on above: Performed By: #### H S TROP, CMP, ETOH, CBC, TSH3 #### [address] CO2 [Moles/Vol] 24.9 mmol/L Normal 21.0-31.0 [facility] Comment on above: Performed By: #### H S TROP, CMP, ETOH, CBC, TSH3 #### [facility] [address] [place] [address] [place] Creatinine [Mass/Vol] 0.83 mg/dL Normal 0.60-1.20 [facility] Comment on above: Performed By: #### H S TROP, CMP, ETOH, CBC, TSH3 #### [facility] [address] [place] [address] [place] Creatinine Clr Calc Pharmacy 110.58 Normal [facility] Comment on above: Performed By: #### H S TROP, CMP, ETOH, CBC, TSH3 #### [facility] [address] [place] [address] [place] GFR/1.73 sq M.predicted MDRD (S/P/Bld) [Vol rate/Area] mL/min/{1.73_m2} Normal [facility] Comment on above: Performed By: #### H S TROP, CMP, ETOH, CBC, TSH3 #### [facility] [address] Globulin (S) [Mass/Vol] 2.9 g/dL Normal [facility] Comment on above: Performed By: #### H S TROP, CMP, ETOH, CBC, TSH3 #### [facility] [address] Glucose [Mass/Vol] 82 mg/dL Normal 70-100 [facility] Comment on above: Result Comment: [facility] Glucose Reference Range is dependent on time and content of last meal. Glucose of more than 200 mg/dL in a nonstressed, ambulatory subject supports the diagnosis of Diabetes Mellitus. ADA recommended reference range Performed By: #### H S TROP, CMP, ETOH, CBC, TSH3 #### [facility] [address] Potassium [Moles/Vol] 3.3 mmol/L Low 3.5-5.1 [facility] Comment on above: Performed By: #### H S TROP, CMP, ETOH, CBC, TSH3 #### [address] Protein [Mass/Vol] 7.1 g/dL Normal 6.4-8.9 [facility] Comment on above: Performed By: #### H S TROP, CMP, ETOH, CBC, TSH3 #### [facility] [address] [place] [address] [place] Sodium [Moles/Vol] 138 mmol/L Normal 136-145 [facility] Comment on above: Performed By: #### H S TROP, CMP, ETOH, CBC, TSH3 #### [facility] [address] Urea nitrogen [Mass/Vol] 9 mg/dL Normal 7-25 [facility] Comment on above: Performed By: #### H S TROP, CMP, ETOH, CBC, TSH3 #### [facility] [address] [place] [address] Creatinine [Mass/volume] in Serum or PlasmaOrdered By: Sara Tripathi on 11-27-2022 Creatinine [Mass/Vol] 0.83 mg/dL 0.60-1.20 [facility] Dipstick and Microscopicon 1 Appearance (U) Turbid Critically abnormal Clear [facility] Comment on above: Order Comment: Name Collection Type:: Clean-Voided Midstream Performed By: #### H S TROP, CMP, ETOH, CBC, TSH3 #### [facility] [address] [place] [address] Bacteria,Urine 4+ High None Seen [facility] Comment on above: Order Comment: Name Collection Type:: Clean-Voided Midstream Performed By: #### H S TROP, CMP, ETOH, CBC, TSH3 #### [facility] [address] [place] [address] Bilirubin,Urine Negative Normal Negative [facility] Comment on above: Order Comment: Name Collection Type:: Clean-Voided Midstream Performed By: #### H S TROP, CMP, ETOH, CBC, TSH3 #### [facility] [address] [place] [address] Coarse Granular Casts,Urine 0-1 Normal 0-1 [facility] Comment on above: Order Comment: Name Collection Type:: Clean-Voided Midstream Performed By: #### H S TROP, CMP, ETOH, CBC, TSH3 #### [facility] [address] [place] [address] Color (U) Dark Yellow Critically abnormal Yellow [facility] Comment on above: Order Comment: Name Collection Type:: Clean-Voided Midstream Performed By: #### H S TROP, CMP, ETOH, CBC, TSH3 #### [facility] [address] [place] [address] Fine Granular Casts,Urine 0-1 Normal 0-1 [facility] Comment on above: Order Comment: Name Collection Type:: Clean-Voided Midstream Performed By: #### H S TROP, CMP, ETOH, CBC, TSH3 #### [facility] [address] [place] [address] Glucose Ql (U) Normal Normal Normal [facility] Comment on above: Order Comment: Name Collection Type:: Clean-Voided Midstream Performed By: #### H S TROP, CMP, ETOH, CBC, TSH3 #### [address] Hyaline Casts,Urine None Seen Normal 0-1 [facility] Comment on above: Order Comment: Name Collection Type:: Clean-Voided Midstream Performed By: #### H S TROP, CMP, ETOH, CBC, TSH3 #### [address] Ketones Ql (U) Negative Normal Negative [facility] Comment on above: Order Comment: Name Collection Type:: Clean-Voided Midstream Performed By: #### H S TROP, CMP, ETOH, CBC, TSH3 #### [address] Leukocyte esterase Test strip Ql (U) 2+ High Negative [facility] Comment on above: Order Comment: Name Collection Type:: Clean-Voided Midstream Performed By: #### H S TROP, CMP, ETOH, CBC, TSH3 #### [address] Nitrite,Urine Negative Normal Negative [facility] Comment on above: Order Comment: Name Collection Type:: Clean-Voided Midstream Performed By: #### H S TROP, CMP, ETOH, CBC, TSH3 #### [address] Occult Blood,Urine 1+ High Negative [facility] Comment on above: Order Comment: Name Collection Type:: Clean-Voided Midstream Performed By: #### H S TROP, CMP, ETOH, CBC, TSH3 #### [address] Other Casts,Urine None Seen Normal None Seen [facility] Comment on above: Order Comment: Name Collection Type:: Clean-Voided Midstream Performed By: #### H S TROP, CMP, ETOH, CBC, TSH3 #### [address] pH (U) 5.0 [pH] Normal 5.0-9.0 [facility] Comment on above: Order Comment: Name Collection Type:: Clean-Voided Midstream Performed By: #### H S TROP, CMP, ETOH, CBC, TSH3 #### [address] Protein,Urine Trace High Negative [facility] Comment on above: Order Comment: Name Collection Type:: Clean-Voided Midstream Performed By: #### H S TROP, CMP, ETOH, CBC, TSH3 #### [address] RBC,Urine 5-9 High 0-4 [facility] Comment on above: Order Comment: Name Collection Type:: Clean-Voided Midstream Performed By: #### H S TROP, CMP, ETOH, CBC, TSH3 #### [address] Specificy [place],Urine 1.023 Normal 1.001-1.030 [facility] Comment on above: Order Comment: Name Collection Type:: Clean-Voided Midstream Performed By: #### H S TROP, CMP, ETOH, CBC, TSH3 #### [address] Squamous Epithelial Cell,Urine 20-30 High 0-2 [facility] Comment on above: Order Comment: Name Collection Type:: Clean-Voided Midstream Performed By: #### H S TROP, CMP, ETOH, CBC, TSH3 #### [address] Urobilinogen,Urine Normal Normal Normal [facility] Comment on above: Order Comment: Name Collection Type:: Clean-Voided Midstream Performed By: #### H S TROP, CMP, ETOH, CBC, TSH3 #### [address] WBC,Urine 50-100 High 0-4 [facility] Comment on above: Order Comment: Name Collection Type:: Clean-Voided Midstream Performed By: #### H S TROP, CMP, ETOH, CBC, TSH3 #### [address] Drug Screen,Urineon 11-28-19 23 Amphetamine Screen,Urine Negative Normal Negative [facility] Comment on above: Performed By: #### H S TROP, CMP, ETOH, CBC, TSH3 #### [address] Barbiturate Screen,Urine Negative Normal Negative [facility] Comment on above: Performed By: #### H S TROP, CMP, ETOH, CBC, TSH3 #### [address] Benzodiazepines Screen,Urine Negative Normal Negative [facility] Comment on above: Performed By: #### H S TROP, CMP, ETOH, CBC, TSH3 #### [address] Cannabinoid Screen,Urine Positive High Negative [facility] Comment on above: Result Comment: Thes e are unconfirmed results and should not be used for legal purposes. Drug Cut-Off Concentration: AMPH 1000 ng/mL CARMELLA 200 ng/mL GERMAN 200 ng/mL COCM 300 ng/mL OP 300 ng/mL PCP 25 ng/mL THC 20 ng/mL PERFORMED BY: [place] [address] PATHOLOGIST GROUP [employer] ASSISTANT DEPARTMENT HEAD KELLIE ALVARADO M.D. Performed By: #### H S TROP, CMP, ETOH, CBC, TSH3 #### [address] Cocaine Screen,Urine Negative Normal Negative [facility] Comment on above: Performed By: #### H S TROP, CMP, ETOH, CBC, TSH3 #### [address] Opiate Screen,Urine Negative Normal Negative [facility] Comment on above: Performed By: #### H S TROP, CMP, ETOH, CBC, TSH3 #### [address] Phencyclidine Screen,Urine Negative Normal Negative [facility] Comment on above: Performed By: #### H S TROP, CMP, ETOH, CBC, TSH3 #### [facility] [address] ECG 12 lead ECGon 11-27-2022 ECG 12 lead ECG [facility] [place] [address] [place] [address] Electrocardiograph Report Signed Patient: Antoinette Recio MR#: [id number] : 1995 Acct:[id number] Age/Sex: 27 / F ADM Date: 11/27/22 Loc: ER Room: Type: [facility] ER Attending Dr: Ordering Provider: Sara Tripathi [...] By Sara Tripathi MD 11/27/22 1505 Normal [facility] Eosinophils Auto (Bld) [#/Vo l]Ordered By: Sara Tripathi on 11-27-2022 Eosinophils (Bld) [#/Vol] 0.1 10*3/uL 0.0-0.45 [facility] Eosinophils/100 WBC Auto (Bl d)Ordered By: Sara Tripathi on 11-27-2022 Eosinophils/100 WBC (Bld) 1.1 % . [facility] Erythrocyte distribution wid th Auto (RBC) [Ratio]Ordered By: Sara Tripathi on 11-27-2022 Erythrocyte distribution width (RBC) [Ratio] 15.9 % 11.9-15.3 [facility] Ethanol [Mass/volume] in Ser um or PlasmaOrdered By: Sara Tripathi on 11-27-2022 Ethanol [Mass/Vol] 26 mg/dL [facility] Ethanol [Mass/Vol] 0.026 % [facility] Ethyl Alcohol Profileon 11-09 Ethanol [Mass/Vol] 26 mg/dL Normal [facility] Comment on above: Performed By: #### H S TROP, CMP, ETOH, CBC, TSH3 #### [facility] [address] [place] [address] [place] Percent Ethanol 0.026 % Normal [facility] Comment on above: Result Comment: PERF ORMED BY: [place] [address] PATHOLOGIST [employer] ASSISTANT DEPARTMENT HEAD KELLIE ALVARADO M.D. Performed By: #### H S TROP, CMP, ETOH, CBC, TSH3 #### [facility] [address] Fine granular cast count in urine sediment by microscopy (number/low power field )Ordered By: Sara Tripathi on 11-27-2022 Fine Granular Casts LM.LPF (Urine sed) [#/Area] 0-1 [LPF] 0-1 [facility] Globulin Calc (S) [Mass/Vol] Ordered By: Sara Tripathi on 11-27-2022 Globulin (S) [Mass/Vol] 2.9 g/dL [facility] Glucose [Mass/volume] in Ser um or PlasmaOrdered By: Sara Tripathi on 11-27-2022 Glucose [Mass/Vol] 82 mg/dL 70-100 [facility] Comment on above: ADA recommended refe rence rangeRandom Glucose Reference Range is dependent on time and content of last meal. Glucose of more than 200 mg/dL in a nonstressed, ambulatory subject supports the diagnosis of Diabetes Mellitus. HCG ( test) Fany dotson Ql (U)Ordered By: Sara Tripathi on 11-27-2022 HCG ( test) Ql (U) Negative [facility] HCG,Urineon 11-27-2022 Beta HCG ( test) Ql (U) Negative Normal [facility] Comment on above: Order Comment: Name Collection Type:: Clean-Voided Midstream Result Comment: PERF ORMED BY: [facility] [address] [place] [address] PATHOLOGIST GROUP FITNESS ASSISTANT DEPARTMENT HEAD KELLIE ALVARADO M.D. Performed By: #### H S TROP, CMP, ETOH, CBC, TSH3 #### [facility] [address] Hematocrit Auto (Bld) [Volum e fraction]Ordered By: Sara Tripathi on 11-27-2022 Hematocrit (Bld) [Volume fraction] 38.0 % 34.0-46.4 [facility] Hemoglobin [Mass/volume] in BloodOrdered By: Sara Tripathi on 11-27-2022 Hemoglobin (Bld) [Mass/Vol] 12.5 g/dL 11.8-15.4 [facility] Ketones Auto test strip (U) [Mass/Vol]Ordered By: Sara Tripathi on 11-27-2022 Ketones (U) [Mass/Vol] Negative Negative Fi [facility] Leukocytes [#/volume] correc christelle for nucleated erythrocytes in Blood by Automated counOrdered By: Sara Tripathi on 11-27-2022 WBC corrected for nucl RBC Auto (Bld) [#/Vol] 6.7 10*3/uL 3.8-11.6 [facility] Lymphocytes Auto (Bld) [#/Vo l]Ordered By: Sara Tripathi on 11-27-2022 Lymphocytes (Bld) [#/Vol] 0.8 10*3/uL 1.00-4.8 [facility] Lymphocytes/100 WBC Auto (Bl d)Ordered By: Sara Tripathi on 11-27-2022 Lymphocytes/100 WBC (Bld) 11.3 % . [facility] MCH Auto (RBC) [Entitic mass ]Ordered By: Sara Tripathi on 11-27-2022 MCH (RBC) [Entitic mass] 28.8 pg 24.7-34.3 [facility] MCHC Auto (RBC) [Mass/Vol]Or dered By: Sara Tripathi on 11-27-2022 MCHC (RBC) [Mass/Vol] 33.0 g/dL 32.0-35.0 [facility] MCV Auto (RBC) [Entitic vol] Ordered By: Sara Tripathi on 11-27-2022 MCV (RBC) [Entitic vol] 87.5 fL 80-100 [facility] Monocyte distribution width [Entitic volume] in Blood by AutomatedOrdered By: Sara Tripathi on 11-27-2022 Monocyte distribution width Auto (Bld) [Entitic vol] 17.41 % 0.00-20.00 [facility] Monocytes Auto (Bld) [#/Vol] Ordered By: Sara Tripathi on 11-27-2022 Monocytes (Bld) [#/Vol] 0.6 10*3/uL 0.0-0.8 [facility] Monocytes/100 WBC Auto (Bld) Ordered By: Sara Tripathi on 11-27-2022 Monocytes/100 WBC (Bld) 8.9 % . [facility] Neutrophils Auto (Bld) [#/Vo l]Ordered By: Sara Tripathi on 11-27-2022 Neutrophils (Bld) [#/Vol] 5.1 10*3/uL 1.8-7.7 [facility] Neutrophils/100 WBC Auto (Bl d)Ordered By: Sara Tripathi on 11-27-2022 Neutrophils/100 WBC (Bld) 75.7 % . [facility] Nitrite Test strip Ql (U)Ord ered By: Sara Tripathi on 11-27-2022 Nitrite Ql (U) Negative Negative [facility] No Panel InformationOrdered By: Sara Tripathi on 11-27-2022 Estimated GFR (CKD-EPI) > 60.0 mL/Min [facility] Creatinine Clearance (Chem 110.58 [facility] Nucleated erythrocytes [Pres ence] in Blood by Automated countOrdered By: Sara Tripathi on 11-27-2022 Nucleated RBC Auto Ql (Bld) 0.0 /100{WBC} 0-0.5 [facility] Opiates [Presence] in Urine by Screen methodOrdered By: Sara Tripathi on 11-27-2022 Opiates Screen Ql (U) Negative Negative [facility] Phencyclidine Screen Ql (U)O rdered By: Sara Tripathi on 11-27-2022 Phencyclidine Ql (U) Negative Negative [facility] Platelet mean volume Auto (B ld) [Entitic vol]Ordered By: Sara Tripathi on 11-27-2022 Platelet mean volume (Bld) [Entitic vol] 7.1 fL 6.3-10.7 [facility] Platelets Auto (Bld) [#/Vol] Ordered By: Sara Tripathi on 11-27-2022 Platelets (Bld) [#/Vol] 402 10*3/uL 150-450 [facility] Potassium [Moles/volume] in Serum or PlasmaOrdered By: Sara Tripathi on 11-27-2022 Potassium [Moles/Vol] 3.3 mmol/L 3.5-5.1 [facility] Protein Auto test strip (U) [Mass/Vol]Ordered By: Sara Tripathi on 11-27-2022 Protein (U) [Mass/Vol] Trace mg/dL Negative [facility] Protein [Mass/volume] in Ser um or PlasmaOrdered By: Sara Tripathi on 11-27-2022 Protein [Mass/Vol] 7.1 g/dL 6.4-8.9 [facility] RBC Auto (Bld) [#/Vol]Ordere d By: Sara Tripathi on 11-27-2022 RBC (Bld) [#/Vol] 4.34 10*6/uL 3.60-5.00 [facility] Serum or plasma albumin/glob ulin mass ratioOrdered By: Sara Tripathi on 11-27-2022 Albumin/Globulin [Mass ratio] 1.4 {ratio} [facility] Serum or plasma anion gap de terminationOrdered By: Sara Tripathi on 11-27-2022 Anion gap [Moles/Vol] 15.4 mmol/L 6.0-15.0 [facility] Sodium [Moles/volume] in Ser um or PlasmaOrdered By: Sara Tripathi on 11-27-2022 Sodium [Moles/Vol] 138 mmol/L 136-145 [facility] Specific gravity Auto test s trip (U) [Rel density]Ordered By: Sara Tripathi on 11-27-2022 Specific gravity (U) [Rel density] 1.023 1.001-1.030 [facility] Squamous epithelial cells de tection in urine sediment by light microscopyOrdered By: Sara Tripathi on 11-27-2022 Epithelial cells.squamous LM Ql (Urine sed) 20-30 [HPF] 0-2 [facility] Thyroid Stimulating Hormoneo n 11-27-2022 TSH Qn 2.35 m[IU]/L Normal 0.45-5.33 [facility] Comment on above: Result Comment: PERF ORMED BY: [place] [address] PATHOLOGIST GROUP FITNESS ASSISTANT DEPARTMENT HEAD KELLIE ALVARADO M.D. Performed By: #### H S TROP, CMP, ETOH, CBC, TSH3 #### [facility] [address] [place], [place] [id number] [facility] Thyrotropin [Units/volume] i n Serum or PlasmaOrdered By: Sara Tripathi on 11-27-2022 TSH Qn 2.35 m[IU]/L 0.45-5.33 [facility] Troponin I High Sensitivityo n 11-27-2022 Troponin I High Sensitivity 3.2 pg/mL Normal 0.0-15.0 [facility] Comment on above: Result Comment: PERF ORMED BY: [place] [address] PATHOLOGIST GROUP FITNESS ASSISTANT DEPARTMENT HEAD KELLIE ALVARADO M.D. Performed By: #### H S TROP, CMP, ETOH, CBC, TSH3 #### [facility] [address] [place] [address] Troponin I.cardiac [Mass/vol ume] in Serum or Plasma by Detection limit <= 0.01 ng/Ordered By: Sara Tripathi on 11-27-2022 Troponin I.cardiac DL <= 0.01 ng/mL [Mass/Vol] 3.2 pg/mL 0.0-15.0 [facility] Urea nitrogen [Mass/volume] in Serum or PlasmaOrdered By: Sara Tripathi on 11-27-2022 Urea nitrogen [Mass/Vol] 9 mg/dL 7 [facility] Urine Cultureon 11-27-2022 Bacteria identified Cx Nom (U) ORGANISM: Escherichia coli (O:ESCCOL) [place] Count >100,000 Aerobic GLENDA Charge (NMIC56) --- [...] RESISTANT TO ALL B-LACTAM DRUGS. PERFORMED BY: [place] [address] PATHOLOGIST GROUP FITNESS ASSISTANT DEPARTMENT HEAD KELLIE ALVARADO M.D. Normal [facility] Comment on above: Performed By: #### H S TROP, CMP, ETOH, CBC, TSH3 #### [facility] [address] [place] [address] [place] Urine bacteria detection by automated methodOrdered By: Sara Tripathi on 11-27-2022 Bacteria Auto Ql (U) 4+ None Seen [facility] Urine clarity by refractomet ry automatedOrdered By: Sara Tripathi on 11-27-2022 Clarity Refractometry automated (U) Turbid Clear [facility] Urine culture routineOrdered By: Sara Tripathi on 11-27-2022 Bacteria identified Cx Nom (U) Escherichia coli [facility] Urine glucose measurement by automated test strip (mass/volume)Ordered By: Sara Tripathi on 11-27-2022 Glucose Auto test strip (U) [Mass/Vol] Normal mg/dL Normal [facility] Urine hemoglobin detection b y automated test stripOrdered By: Sara Tripathi on 11-27-2022 Hemoglobin Auto test strip Ql (U) 1+ Negative [facility] Urine leukocyte esterase det ection by automated test stripOrdered By: Sara Tripathi on 11-27-2022 Leukocyte esterase Auto test strip Ql (U) 2+ Negative [facility] Urobilinogen Auto test strip (U) [Mass/Vol]Ordered By: Sara Tripathi on 11-27-2022 Urobilinogen (U) [Mass/Vol] Normal mg/dL Normal [facility] WBC Auto (Bld) [#/Vol]Ordere d By: Sara Tripathi on 11-27-2022 WBC (Bld) [#/Vol] 6.7 10*3/uL 3.8-11.6 [facility] XR chest 1V portableon 11-27 XR chest 1V portable [place] [address] XRay Report Signed Patient: Antoinette Recio MR#: [id number] : 1995 Acct:[id number] Age/Sex: 27 / F ADM Date: 11/27/22 Loc: ER Room: Type: [facility] ER Attending Dr: Copies to: Sara Tripathi [...] Vipul Rucker M.D.11/27/2022 11:05 AM Dictation Location: [place] [address] Transcribed By: [facility] 11/27/22 1100 Dictated By: Vipul Rucker II, MD 11/27/22 1104 Signed By: 11/27/22 1105 Normal [facility] pH Auto test strip (U)Ordere d By: Sara Tripathi on 11-27-2022 pH (U) 5.0 [pH] 5.0-9.0 [facility] Alanine aminotransferase [En zymatic activity/volume] in Serum or PlasmaOrdered By: Ji Smith on 05-11-2022 ALT [Catalytic activity/Vol] 27 U/L 7-52 [facility] Albumin [Mass/volume] in Ser um or Plasma by Bromocresol green (BCG) dye binding methoOrdered By: Ji Smith on 05-11-2022 Albumin BCG dye [Mass/Vol] 4.5 g/dL 3.5-5.7 [facility] Alkaline phosphatase [Enzyma tic activity/volume] in Serum or PlasmaOrdered By: Ji Smith on 05-11-2022 ALP [Catalytic activity/Vol] 51 U/L 34-104 [facility] Aspartate aminotransferase [ Enzymatic activity/volume] in Serum or PlasmaOrdered By: Ji Smith on 05-11-2022 AST [Catalytic activity/Vol] 33 U/L 13-39 [facility] Bilirubin.total [Mass/volume ] in Serum or PlasmaOrdered By: Ji Smith on 05-11-2022 Bilirubin [Mass/Vol] 0.7 mg/dL 0.3-1.0 [facility] Calcium [Mass/volume] in Ser um or PlasmaOrdered By: Ji Smith on 05-11-2022 Calcium [Mass/Vol] 9.7 mg/dL 8.6-10.3 [facility] Carbon dioxide, total [Moles /volume] in Serum or PlasmaOrdered By: Ji Smith on 05-11-2022 CO2 [Moles/Vol] 25.8 mmol/L 21.0-31.0 [facility] Chloride [Moles/volume] in S phil or PlasmaOrdered By: Ji Smith on 05-11-2022 Chloride [Moles/Vol] 102 mmol/L 98-107 [facility] Comprehensive Metabolic Pane shaji 05-11-2022 Albumin [Mass/Vol] 4.5 g/dL Normal 3.5-5.7 [facility] Comment on above: Performed By: #### H S TROP, CMP, ETOH, CBC, TSH3 #### [facility] [address] Albumin/Globulin [Mass ratio] 1.7 {ratio} Normal [facility] Comment on above: Performed By: #### H S TROP, CMP, ETOH, CBC, TSH3 #### [address] ALP [Catalytic activity/Vol] 51 U/L Normal 34-104 [facility] Comment on above: Performed By: #### H S TROP, CMP, ETOH, CBC, TSH3 #### [address] ALT [Catalytic activity/Vol] 27 U/L Normal 7-52 [facility] Comment on above: Performed By: #### H S TROP, CMP, ETOH, CBC, TSH3 #### [address] Anion gap [Moles/Vol] 13.8 mmol/L Normal 6.0-15.0 [facility] Comment on above: Performed By: #### H S TROP, CMP, ETOH, CBC, TSH3 #### [address] AST [Catalytic activity/Vol] 33 U/L Normal 13-39 [facility] Comment on above: Performed By: #### H S TROP, CMP, ETOH, CBC, TSH3 #### [facility] [address] [place] [address] Bilirubin [Mass/Vol] 0.7 mg/dL Normal 0.3-1.0 [facility] Comment on above: Performed By: #### H S TROP, CMP, ETOH, CBC, TSH3 #### [place] [address] [place] Calcium [Mass/Vol] 9.7 mg/dL Normal 8.6-10.3 [facility] Comment on above: Performed By: #### H S TROP, CMP, ETOH, CBC, TSH3 #### [facility] [address] Chloride [Moles/Vol] 102 mmol/L Normal 98-107 [facility] Comment on above: Performed By: #### H S TROP, CMP, ETOH, CBC, TSH3 #### [facility] [address] CO2 [Moles/Vol] 25.8 mmol/L Normal 21.0-31.0 [facility] Comment on above: Performed By: #### H S TROP, CMP, ETOH, CBC, TSH3 #### [address] Creatinine [Mass/Vol] 0.68 mg/dL Normal 0.60-1.20 [facility] Comment on above: Performed By: #### H S TROP, CMP, ETOH, CBC, TSH3 #### [address] Creatinine Clr Calc Pharmacy 129.74 [facility] Comment on above: Result Comment: PERF ORMED BY: [place] [address] PATHOLOGIST GROUP FITNESS ASSISTANT DEPARTMENT HEAD KELLIE ALVARADO M.D. Performed By: #### H S TROP, CMP, ETOH, CBC, TSH3 #### [address] GFR/1.73 sq M.predicted MDRD (S/P/Bld) [Vol rate/Area] mL/min/{1.73_m2} [facility] Comment on above: Performed By: #### H S TROP, CMP, ETOH, CBC, TSH3 #### [facility] [address] Globulin (S) [Mass/Vol] 2.7 g/dL Normal [facility] Comment on above: Performed By: #### H S TROP, CMP, ETOH, CBC, TSH3 #### [facility] [address] [place] [address] [place] Glucose [Mass/Vol] 93 mg/dL Normal 70-100 [facility] Comment on above: Result Comment: [place] Glucose Reference Range is dependent on time and content of last meal. Glucose of more than 200 mg/dL in a nonstressed, ambulatory subject supports the diagnosis of Diabetes Mellitus. ADA recommended reference range Performed By: #### H S TROP, CMP, ETOH, CBC, TSH3 #### [facility] [address] Potassium [Moles/Vol] 3.6 mmol/L Normal 3.5-5.1 [facility] Comment on above: Performed By: #### H S TROP, CMP, ETOH, CBC, TSH3 #### [facility] [address] Protein [Mass/Vol] 7.2 g/dL Normal 6.4-8.9 [facility] Comment on above: Performed By: #### H S TROP, CMP, ETOH, CBC, TSH3 #### [facility] [address] [place] [address] [place] Sodium [Moles/Vol] 138 mmol/L Normal 136-145 [facility] Comment on above: Performed By: #### H S TROP, CMP, ETOH, CBC, TSH3 #### [facility] [address] [place] [address] [place] Urea nitrogen [Mass/Vol] 11 mg/dL Normal 7-25 [facility] Comment on above: Performed By: #### H S TROP, CMP, ETOH, CBC, TSH3 #### [facility] [address] [place] [address] [place] Creatinine [Mass/volume] in Serum or PlasmaOrdered By: Ji Smith on 05-11-2022 Creatinine [Mass/Vol] 0.68 mg/dL 0.60-1.20 [facility] Globulin Calc (S) [Mass/Vol] Ordered By: Ji Smiht on 05-11-2022 Globulin (S) [Mass/Vol] 2.7 g/dL [facility] Glucose [Mass/volume] in Ser um or PlasmaOrdered By: Ji Smith on 05-11-2022 Glucose [Mass/Vol] 93 mg/dL 70-100 [facility] Comment on above: ADA recommended refe rence rangeRandom Glucose Reference Range is dependent on time and content of last meal. Glucose of more than 200 mg/dL in a nonstressed, ambulatory subject supports the diagnosis of Diabetes Mellitus. No Panel InformationOrdered By: Ji Smith on 05-11-2022 Estimated GFR (CKD-EPI) > 60.0 mL/Min [facility] Creatinine Clearance (Chem 129.74 [facility] Potassium [Moles/volume] in Serum or PlasmaOrdered By: Ji Smith on 05-11-2022 Potassium [Moles/Vol] 3.6 mmol/L 3.5-5.1 [facility] Protein [Mass/volume] in Ser um or PlasmaOrdered By: Ji Smith on 05-11-2022 Protein [Mass/Vol] 7.2 g/dL 6.4-8.9 [facility] Serum or plasma albumin/glob ulin mass ratioOrdered By: Ji Smith on 05-11-2022 Albumin/Globulin [Mass ratio] 1.7 {ratio} [facility] Serum or plasma anion gap de terminationOrdered By: Ji Smith on 05-11-2022 Anion gap [Moles/Vol] 13.8 mmol/L 6.0-15.0 [facility] Sodium [Moles/volume] in Ser um or PlasmaOrdered By: Ji Smith on 05-11-2022 Sodium [Moles/Vol] 138 mmol/L 136-145 [facility] Urea nitrogen [Mass/volume] in Serum or PlasmaOrdered By: Ji Smith on 05-11-2022 Urea nitrogen [Mass/Vol] 11 mg/dL 7-25 [facility] Acetaminophenon 05-09-2022 Acetaminophen [Mass/Vol] 1.1 ug/mL Low 10.0-30.0 [facility] Comment on above: Result Comment: PERF ORMED BY: [place] [address] PATHOLOGIST GROUP FITNESS ASSISTANT DEPARTMENT HEAD KELLIE ALVARADO M.D. Performed By: #### A CET, JAMIE #### [address] Acetaminophen [Mass/volume] in Serum or PlasmaOrdered By: Henry Hernandez on 05-09-2022 Acetaminophen [Mass/Vol] 1.1 ug/mL 10.0-30.0 [facility] Alanine aminotransferase [En zymatic activity/volume] in Serum or PlasmaOrdered By: Henry Hernandez on 05-09-2022 ALT [Catalytic activity/Vol] 40 U/L 7-52 [facility] Albumin [Mass/volume] in Ser um or Plasma by Bromocresol green (BCG) dye binding methoOrdered By: Henry Hernandez on 05-09-2022 Albumin BCG dye [Mass/Vol] 5.0 g/dL 3.5-5.7 [facility] Alkaline phosphatase [Enzyma tic activity/volume] in Serum or PlasmaOrdered By: Henry Hernandez on 05-09-2022 ALP [Catalytic activity/Vol] 61 U/L 34-104 [facility] Amphetamine Screen Ql (U)Ord ered By: Henry Hernandez on 05-09-2022 Amphetamines Ql (U) Negative Negative [facility] Aspartate aminotransferase [ Enzymatic activity/volume] in Serum or PlasmaOrdered By: Henry Hernandez on 05-09-2022 AST [Catalytic activity/Vol] 71 U/L 13-39 [facility] Automated epithelial cells c ount in urine sediment (number/area)Ordered By: Henry Hernandez on 05-09-2022 Epithelial cells Auto (Urine sed) [#/Area] 0-1 [HPF] 0-2 [facility] Automated erythrocytes count in urine sediment (number/area)Ordered By: Henry Hernandez on 05-09-2022 RBC Auto (Urine sed) [#/Area] 3-4 [HPF] 0-4 [facility] Automated leukocytes count i n urine sediment (number/area)Ordered By: Henry Hernandez on 05-09-2022 WBC Auto (Urine sed) [#/Area] 0-1 [HPF] 0-4 [facility] Barbiturates [Presence] in U rine by Screen methodOrdered By: Henry Hernandez on 05-09-2022 Barbiturates Screen Ql (U) Negative Negative [facility] Basophils Auto (Bld) [#/Vol] Ordered By: Henry Hernandez on 05-09-2022 Basophils (Bld) [#/Vol] 0.1 10*3/uL 0.0-0.2 [facility] Basophils/100 WBC Auto (Bld) Ordered By: Henry Hernandez on 05-09-2022 Basophils/100 WBC (Bld) 0.9 % . F [facility] Benzodiazepines Screen Ql (U )Ordered By: Henry Hernandez on 05-09-2022 Benzodiazepines Ql (U) Negative Negative [facility] Benzoylecgonine [Presence] i n Urine by Screen methodOrdered By: Henry Hernandez on 05-09-2022 Benzoylecgonine Screen Ql (U) Negative Negative [facility] Bilirubin Test strip Ql (U)O rdered By: Henry Hernandez on 05-09-2022 Bilirubin Ql (U) Negative Negative [facility] Bilirubin.total [Mass/volume ] in Serum or PlasmaOrdered By: Henry Hernandez on 05-09-2022 Bilirubin [Mass/Vol] 0.4 mg/dL 0.3-1.0 [facility] Calcium [Mass/volume] in Ser um or PlasmaOrdered By: Henry Hernandez on 05-09-2022 Calcium [Mass/Vol] 9.4 mg/dL 8.6-10.3 [facility] Cannabinoids [Presence] in U rine by Screen methodOrdered By: Henry Hernandez on 05-09-2022 Cannabinoids Screen Ql (U) Positive Negative [facility] Comment on above: These are unconfirme d results and should not be used for legal purposes. Drug Cut-Off Concentration: AMPH 1000 ng/mL CARMELLA 200 ng/mL GERMAN 200 ng/mL COCM 300 ng/mL OP 300 ng/mL PCP 25 ng/mL THC 20 ng/mL Carbon dioxide, total [Moles /volume] in Serum or PlasmaOrdered By: Henry Hernandez on 05-09-2022 CO2 [Moles/Vol] 24.5 mmol/L 21.0-31.0 [facility] Chloride [Moles/volume] in S phil or PlasmaOrdered By: Henry Hernandez on 05-09-2022 Chloride [Moles/Vol] 102 mmol/L 98-107 [facility] Cholesterol [Mass/volume] in Serum or PlasmaOrdered By: Ji Smith on 05-09-2022 Cholesterol [Mass/Vol] 336 mg/dL 140-200 [facility] Comment on above: Chol less than 200 m g/dl low riskChol 201-239 mg/dl borderline riskChol 240 mg/dl and greater high risk Cholesterol in LDL Calc [Mas s/Vol]Ordered By: Ji Smith on 05-09-2022 Cholesterol in LDL [Mass/Vol] 133 mg/dL 0-100 [facility] Comment on above: LDL ATP III CLASSIFI CATIONLDL less than 100 mg/dL OptimalLDL 100-129 mg/dL Near or above optimalLDL 130-159 mg/dL Borderline highLDL 160-189 mg/dL HighLDL greater than 189 mg/dL Very high Cholesterol in VLDL Calc [Ma ss/Vol]Ordered By: Ji Smith on 05-09-2022 Cholesterol in VLDL [Mass/Vol] 21 mg/dL [facility] Color Auto (U)Ordered By: Valerie Hernandez on 05-09-2022 Color (U) Yellow Yellow [facility] Complete Blood Count Auto Di ffon 05-09-2022 Basophils (Bld) [#/Vol] 0.1 10*3/uL Normal 0.0-0.2 [facility] Comment on above: Result Comment: PERF ORMED BY: [facility] [address] [place] [address] PATHOLOGIST GROUP FITNESS ASSISTANT DEPARTMENT HEAD KELLIE ALVARADO M.D. Performed By: #### H S TROP, CMP, ETOH, CBC, TSH3 #### [address] Basophils/100 WBC (Bld) 0.9 % Normal . F [facility] Comment on above: Performed By: #### H S TROP, CMP, ETOH, CBC, TSH3 #### [address] Eosinophils (Bld) [#/Vol] 0.1 10*3/uL Normal 0.0-0.45 [facility] Comment on above: Performed By: #### H S TROP, CMP, ETOH, CBC, TSH3 #### [address] Eosinophils/100 WBC (Bld) 1.3 % Normal . [facility] Comment on above: Performed By: #### H S TROP, CMP, ETOH, CBC, TSH3 #### [address] Erythrocyte distribution width (RBC) [Ratio] 17.8 % High 11.9-15.3 [facility] Comment on above: Performed By: #### H S TROP, CMP, ETOH, CBC, TSH3 #### [address] Hematocrit (Bld) [Volume fraction] 40.2 % Normal 34.0-46.4 [facility] Comment on above: Performed By: #### H S TROP, CMP, ETOH, CBC, TSH3 #### [address] Hemoglobin (Bld) [Mass/Vol] 13.1 g/dL Normal 11.8-15.4 [facility] Comment on above: Performed By: #### H S TROP, CMP, ETOH, CBC, TSH3 #### [address] Lymphocytes (Bld) [#/Vol] 1.4 10*3/uL Normal 1.00-4.8 [facility] Comment on above: Performed By: #### H S TROP, CMP, ETOH, CBC, TSH3 #### [address] Lymphocytes/100 WBC (Bld) 22.7 % Normal . [facility] Comment on above: Performed By: #### H S TROP, CMP, ETOH, CBC, TSH3 #### [address] MCH (RBC) [Entitic mass] 29.4 pg Normal 24.7-34.3 [facility] Comment on above: Performed By: #### H S TROP, CMP, ETOH, CBC, TSH3 #### [address] MCV (RBC) [Entitic vol] 90.0 fL Normal 80-100 [facility] Comment on above: Performed By: #### H S TROP, CMP, ETOH, CBC, TSH3 #### [address] Mean Corpuscular HGB Conc 32.7 g/dL Normal 32.0-35.0 [facility] Comment on above: Performed By: #### H S TROP, CMP, ETOH, CBC, TSH3 #### [address] Monocytes (Bld) [#/Vol] 0.4 10*3/uL Normal 0.0-0.8 [facility] Comment on above: Performed By: #### H S TROP, CMP, ETOH, CBC, TSH3 #### [address] Monocytes/100 WBC (Bld) 15.97 % Normal 0.00-20.00 [facility] Comment on above: Performed By: #### H S TROP, CMP, ETOH, CBC, TSH3 #### [address] Monocytes/100 WBC (Bld) 6.5 % Normal . F [facility] Comment on above: Performed By: #### H S TROP, CMP, ETOH, CBC, TSH3 #### [address] Neutrophils (Bld) [#/Vol] 4.3 10*3/uL Normal 1.8-7.7 [facility] Comment on above: Performed By: #### H S TROP, CMP, ETOH, CBC, TSH3 #### [address] Neutrophils/100 WBC (Bld) 68.6 % Normal . [facility] Comment on above: Performed By: #### H S TROP, CMP, ETOH, CBC, TSH3 #### [address] NRBC% 0.0 /100{WBC} Normal 0-0.5 [facility] Comment on above: Performed By: #### H S TROP, CMP, ETOH, CBC, TSH3 #### [address] Platelet mean volume (Bld) [Entitic vol] 6.7 fL Normal 6.3-10.7 [facility] Comment on above: Performed By: #### H S TROP, CMP, ETOH, CBC, TSH3 #### [place] [address] [place] Platelets (Bld) [#/Vol] 330 10*3/uL Normal 150-450 [facility] Comment on above: Performed By: #### H S TROP, CMP, ETOH, CBC, TSH3 #### [place] [address] [place] RBC (Bld) [#/Vol] 4.46 10*6/uL Normal 3.60-5.00 [facility] Comment on above: Performed By: #### H S TROP, CMP, ETOH, CBC, TSH3 #### [place] [address] [place] WBC (Bld) [#/Vol] 6.3 10*3/uL Normal 3.8-11.6 [facility] Comment on above: Performed By: #### H S TROP, CMP, ETOH, CBC, TSH3 #### [address] [place] [address] [place] Comprehensive Metabolic Pane shaji 05-09-2022 Albumin [Mass/Vol] 5.0 g/dL Normal 3.5-5.7 [facility] Comment on above: Performed By: #### H S TROP, CMP, ETOH, CBC, TSH3 #### [address] Albumin/Globulin [Mass ratio] 1.8 {ratio} Normal [facility] Comment on above: Performed By: #### H S TROP, CMP, ETOH, CBC, TSH3 #### [address] ALP [Catalytic activity/Vol] 61 U/L Normal 34-104 [facility] Comment on above: Performed By: #### H S TROP, CMP, ETOH, CBC, TSH3 #### [address] ALT [Catalytic activity/Vol] 40 U/L Normal 7-52 [facility] Comment on above: Performed By: #### H S TROP, CMP, ETOH, CBC, TSH3 #### [address] Anion gap [Moles/Vol] 18.4 mmol/L High 6.0-15.0 [facility] Comment on above: Performed By: #### H S TROP, CMP, ETOH, CBC, TSH3 #### [address] AST [Catalytic activity/Vol] 71 U/L High 13-39 [facility] Comment on above: Performed By: #### H S TROP, CMP, ETOH, CBC, TSH3 #### [place] [address] [place] Bilirubin [Mass/Vol] 0.4 mg/dL Normal 0.3-1.0 [facility] Comment on above: Performed By: #### H S TROP, CMP, ETOH, CBC, TSH3 #### [address] Calcium [Mass/Vol] 9.4 mg/dL Normal 8.6-10.3 [facility] Comment on above: Performed By: #### H S TROP, CMP, ETOH, CBC, TSH3 #### [facility] [address] Chloride [Moles/Vol] 102 mmol/L Normal 98-107 [facility] Comment on above: Performed By: #### H S TROP, CMP, ETOH, CBC, TSH3 #### [facility] [address] CO2 [Moles/Vol] 24.5 mmol/L Normal 21.0-31.0 [facility] Comment on above: Performed By: #### H S TROP, CMP, ETOH, CBC, TSH3 #### [address] Creatinine [Mass/Vol] 0.76 mg/dL Normal 0.60-1.20 [facility] Comment on above: Performed By: #### H S TROP, CMP, ETOH, CBC, TSH3 #### [address] Creatinine Clr Calc Pharmacy 114.17 Normal [facility] Comment on above: Result Comment: PERF ORMED BY: [place] [address] PATHOLOGIST GROUP FITNESS ASSISTANT DEPARTMENT HEAD KELLIE ALVARADO M.D. Performed By: #### H S TROP, CMP, ETOH, CBC, TSH3 #### [address] GFR/1.73 sq M.predicted MDRD (S/P/Bld) [Vol rate/Area] mL/min/{1.73_m2} [facility] Comment on above: Performed By: #### H S TROP, CMP, ETOH, CBC, TSH3 #### [address] Globulin (S) [Mass/Vol] 2.8 g/dL Normal [facility] Comment on above: Performed By: #### H S TROP, CMP, ETOH, CBC, TSH3 #### [facility] [address] [place] [address] [place] Glucose [Mass/Vol] 85 mg/dL Normal 70-100 [facility] Comment on above: Result Comment: [facility] Glucose Reference Range is dependent on time and content of last meal. Glucose of more than 200 mg/dL in a nonstressed, ambulatory subject supports the diagnosis of Diabetes Mellitus. ADA recommended reference range Performed By: #### H S TROP, CMP, ETOH, CBC, TSH3 #### [facility] [address] Potassium [Moles/Vol] 3.9 mmol/L Normal 3.5-5.1 [facility] Comment on above: Performed By: #### H S TROP, CMP, ETOH, CBC, TSH3 #### [facility] [address] Protein [Mass/Vol] 7.8 g/dL Normal 6.4-8.9 [facility] Comment on above: Performed By: #### H S TROP, CMP, ETOH, CBC, TSH3 #### [facility] [address] [place] [address] [place] Sodium [Moles/Vol] 141 mmol/L Normal 136-145 [facility] Comment on above: Performed By: #### H S TROP, CMP, ETOH, CBC, TSH3 #### [place] [address] [place] Urea nitrogen [Mass/Vol] 11 mg/dL Normal 7-25 [facility] Comment on above: Performed By: #### H S TROP, CMP, ETOH, CBC, TSH3 #### [facility] [address] [place] [address] [place] Creatinine [Mass/volume] in Serum or PlasmaOrdered By: Henry Hernandez on 05-09-2022 Creatinine [Mass/Vol] 0.76 mg/dL 0.60-1.20 [facility] Dipstick and Microscopicon 0 05-09-2022 Appearance (U) Clear Normal Clear [facility] Comment on above: Order Comment: Name Collection Type:: Clean-Voided Midstream Performed By: #### H S TROP, CMP, ETOH, CBC, TSH3 #### [facility] [address] [place] [address] [place] Bacteria,Urine None Seen Normal None Seen [facility] Comment on above: Order Comment: Name Collection Type:: Clean-Voided Midstream Performed By: #### H S TROP, CMP, ETOH, CBC, TSH3 #### [facility] [address] [place] [address] [place] Bilirubin,Urine Negative Normal Negative [facility] Comment on above: Order Comment: Name Collection Type:: Clean-Voided Midstream Performed By: #### H S TROP, CMP, ETOH, CBC, TSH3 #### [facility] [address] [place] [address] Color (U) Yellow Normal Yellow [facility] Comment on above: Order Comment: Name Collection Type:: Clean-Voided Midstream Performed By: #### H S TROP, CMP, ETOH, CBC, TSH3 #### [facility] [address] [place] [address] [place] Glucose Ql (U) Normal Normal Normal [facility] Comment on above: Order Comment: Name Collection Type:: Clean-Voided Midstream Performed By: #### H S TROP, CMP, ETOH, CBC, TSH3 #### [facility] [address] [place] [address] [place] Ketones Ql (U) Trace High Negative [facility] Comment on above: Order Comment: Name Collection Type:: Clean-Voided Midstream Performed By: #### H S TROP, CMP, ETOH, CBC, TSH3 #### [facility] [address] [place] [address] [place] Leukocyte esterase Test strip Ql (U) 1+ High Negative [facility] Comment on above: Order Comment: Name Collection Type:: Clean-Voided Midstream Performed By: #### H S TROP, CMP, ETOH, CBC, TSH3 #### [facility] [address] [place] [address] [place] Nitrite,Urine Negative Normal Negative [facility] Comment on above: Order Comment: Name Collection Type:: Clean-Voided Midstream Performed By: #### H S TROP, CMP, ETOH, CBC, TSH3 #### [address] Occult Blood,Urine 1+ High Negative [facility] Comment on above: Order Comment: Name Collection Type:: Clean-Voided Midstream Performed By: #### H S TROP, CMP, ETOH, CBC, TSH3 #### [address] pH (U) 5.5 [pH] Normal 5.0-9.0 [facility] Comment on above: Order Comment: Name Collection Type:: Clean-Voided Midstream Performed By: #### H S TROP, CMP, ETOH, CBC, TSH3 #### [address] Protein (U) [Mass/Vol] 30 mg/dL High Negative [facility] Comment on above: Order Comment: Name Collection Type:: Clean-Voided Midstream Performed By: #### H S TROP, CMP, ETOH, CBC, TSH3 #### [address] RBC,Urine 3-4 Normal 0-4 [facility] Comment on above: Order Comment: Name Collection Type:: Clean-Voided Midstream Performed By: #### H S TROP, CMP, ETOH, CBC, TSH3 #### [address] Specificy [place],Urine 1.013 Normal 1.001-1.030 [facility] Comment on above: Order Comment: Name Collection Type:: Clean-Voided Midstream Performed By: #### H S TROP, CMP, ETOH, CBC, TSH3 #### [address] Squamous Epithelial Cell,Urine 0-1 Normal 0-2 [facility] Comment on above: Order Comment: Name Collection Type:: Clean-Voided Midstream Performed By: #### H S TROP, CMP, ETOH, CBC, TSH3 #### [address] Urobilinogen,Urine Normal Normal Normal [facility] Comment on above: Order Comment: Name Collection Type:: Clean-Voided Midstream Performed By: #### H S TROP, CMP, ETOH, CBC, TSH3 #### [address] WBC LM.HPF (Urine sed) [#/Area] 0 /[HPF] Normal 0-4 [facility] Comment on above: Order Comment: Name Collection Type:: Clean-Voided Midstream Performed By: #### H S TROP, CMP, ETOH, CBC, TSH3 #### [address] Drug Screen,Urineon 05-10-19 Amphetamine Screen,Urine Negative Normal Negative [facility] Comment on above: Performed By: #### U HCG, URDS, ADDONUAPLUS #### [address] Barbiturate Screen,Urine Negative Normal Negative [facility] Comment on above: Performed By: #### U HCG, URDS, ADDONUAPLUS #### [address] Benzodiazepines Screen,Urine Negative Normal Negative [facility] Comment on above: Performed By: #### U HCG, URDS, ADDONUAPLUS #### [address] Cannabinoid Screen,Urine Positive High Negative [facility] Comment on above: Result Comment: Thes e are unconfirmed results and should not be used for legal purposes. Drug Cut-Off Concentration: AMPH 1000 ng/mL CARMELLA 200 ng/mL GERMAN 200 ng/mL COCM 300 ng/mL OP 300 ng/mL PCP 25 ng/mL THC 20 ng/mL PERFORMED BY: [place] [address] PATHOLOGIST GROUP FITNESS ASSISTANT DEPARTMENT HEAD KELLIE ALVARADO M.D. Performed By: #### U HCG, URDS, ADDONUAPLUS #### [address] Cocaine Screen,Urine Negative Normal Negative [facility] Comment on above: Performed By: #### U HCG, URDS, ADDONUAPLUS #### [facility] [address] Opiate Screen,Urine Negative Normal Negative [facility] Comment on above: Performed By: #### U HCG, URDS, ADDONUAPLUS #### [facility] [address] Phencyclidine Screen,Urine Negative Normal Negative [facility] Comment on above: Performed By: #### U HCG, URDS, ADDONUAPLUS #### [facility] [address] ECG 12 lead ECGon 05-09-2022 ECG 12 lead ECG [facility] [place] [address] [place] [address] Electrocardiograph Report Signed Patient: Antoinette Recio MR#: [id number] : 1995 Acct:[id number] Age/Sex: 27 / F ADM Date: 05/09/22 Loc: Room: [address] [place] [address] Type: ADM IN Attending Dr: Tiana Smith [...] sinus rhythm Confirmed by Henry Hernandez DO ([id number]) on 05/09/2022 4:07:02 AM Referred By: Electronically Signed By:Henry Hernandez DO Transcribed By: MUS Signed By Henry Hernandez DO [id number] [facility] Eosinophils Auto (Bld) [#/Vo l]Ordered By: Henry Hernandez on 05-09-2022 Eosinophils (Bld) [#/Vol] 0.1 10*3/uL 0.0-0.45 [facility] Eosinophils/100 WBC Auto (Bl d)Ordered By: Henry Hernandez on 05-09-2022 Eosinophils/100 WBC (Bld) 1.3 % . [facility] Erythrocyte distribution wid th Auto (RBC) [Ratio]Ordered By: Henry Hernandez on 05-09-2022 Erythrocyte distribution width (RBC) [Ratio] 17.8 % 11.9-15.3 [facility] Ethanol [Mass/volume] in Ser um or PlasmaOrdered By: Henry Hernandez on 05-09-2022 Ethanol [Mass/Vol] 302 mg/dL [facility] Ethanol [Mass/Vol] 0.302 % [facility] Ethyl Alcohol Profileon 04-11 Ethanol [Mass/Vol] 302 mg/dL Normal [facility] Comment on above: Performed By: #### H S TROP, CMP, ETOH, CBC, TSH3 #### [facility] [address] Percent Ethanol 0.302 % Normal [facility] Comment on above: Result Comment: PERF ORMED BY: [place] [address] PATHOLOGIST GROUP FITNESS ASSISTANT DEPARTMENT HEAD KELLIE ALVARADO M.D. Performed By: #### H S TROP, CMP, ETOH, CBC, TSH3 #### [facility] [address] Globulin Calc (S) [Mass/Vol] Ordered By: Henry Hernandez on 05-09-2022 Globulin (S) [Mass/Vol] 2.8 g/dL F [facility] Glucose [Mass/volume] in Ser um or PlasmaOrdered By: Henry Hernandez on 05-09-2022 Glucose [Mass/Vol] 85 mg/dL 70-100 [facility] Comment on above: ADA recommended refe rence rangeRandom Glucose Reference Range is dependent on time and content of last meal. Glucose of more than 200 mg/dL in a nonstressed, ambulatory subject supports the diagnosis of Diabetes Mellitus. HCG ( test) IA.rapi d Ql (U)Ordered By: Henry Hernandez on 05-09-2022 HCG ( test) Ql (U) Negative [facility] HCG,Urineon 05-09-2022 Beta HCG ( test) Ql (U) Negative Normal [facility] Comment on above: Order Comment: Name Collection Type:: Clean-Voided Midstream Result Comment: PERF ORMED BY: [place] [address] PATHOLOGIST GROUP FITNESS ASSISTANT DEPARTMENT HEAD KELLIE ALVARADO M.D. Performed By: #### H S TROP, CMP, ETOH, CBC, TSH3 #### [facility] [address] [place] [id number] [facility] Hematocrit Auto (Bld) [Volum e fraction]Ordered By: Henry Hernandez on 05-09-2022 Hematocrit (Bld) [Volume fraction] 40.2 % 34.0-46.4 [facility] Hemoglobin [Mass/volume] in BloodOrdered By: Henry Hernandez on 05-09-2022 Hemoglobin (Bld) [Mass/Vol] 13.1 g/dL 11.8-15.4 [facility] Ketones Auto test strip (U) [Mass/Vol]Ordered By: Henry Hernandez on 05-09-2022 Ketones (U) [Mass/Vol] Trace Negative [facility] Leukocytes [#/volume] correc christelle for nucleated erythrocytes in Blood by Automated counOrdered By: Henry Hernandez on 05-09-2022 WBC corrected for nucl RBC Auto (Bld) [#/Vol] 6.3 10*3/uL 3.8-11.6 [facility] Lipid Panelon 05-09-2022 Cholesterol [Mass/Vol] 336 mg/dL High 140-200 [facility] Comment on above: Order Comment: FASTI NG Y Comment USE FROM ER PLEASE Result Comment: Chol less than 200 mg/dl low risk Chol 201-239 mg/dl borderline risk Chol 240 mg/dl and greater high risk Performed By: #### H S TROP, CMP, ETOH, CBC, TSH3 #### [facility] [address] [place] [address] [facility] Cholesterol in HDL [Mass/Vol] 182 mg/dL High 35-85 [facility] Comment on above: Order Comment: FASTI NG Y Comment USE FROM ER PLEASE Result Comment: HDL CHOL ATP-III CLASSIFICATION Cardiovascular Risk HDL > or equal to 60 mg/dL LOW HDL < 40 mg/dL HIGH Performed By: #### H S TROP, CMP, ETOH, CBC, TSH3 #### [facility] [address] Cholesterol.total/Sarah sterol in HDL [Mass ratio] 1.8 {ratio} Normal <5.0 [facility] Comment on above: Order Comment: FRANKIE Shine Comment USE FROM ER PLEASE Performed By: #### H S TROP, CMP, ETOH, CBC, TSH3 #### [facility] [address] LDL Cholesterol,Calculated 133 mg/dL High 0-100 [facility] Comment on above: Order Comment: FRANKIE Shine Comment USE FROM ER PLEASE Result Comment: LDL ATP III CLASSIFICATION LDL less than 100 mg/dL Optimal LDL 100-129 mg/dL Near or above optimal LDL 130-159 mg/dL Borderline high LDL 160-189 mg/dL High LDL greater than 189 mg/dL Very high Performed By: #### H S TROP, CMP, ETOH, CBC, TSH3 #### [facility] [address] Triglyceride w/Reflex 107 mg/dL Normal 0-149 [facility] Comment on above: Order Comment: FRANKIE [...] S TROP, CMP, ETOH, CBC, TSH3 #### [facility] [address] VLDL CHOLESTEROL 21 mg/dL Normal [facility] Comment on above: Order Comment: FRANKIE Shine Comment USE FROM ER PLEASE Performed By: #### H S TROP, CMP, ETOH, CBC, TSH3 #### [facility] [address] [place] [address] [place] Lymphocytes Auto (Bld) [#/Vo l]Ordered By: Henry Hernandez on 05-09-2022 Lymphocytes (Bld) [#/Vol] 1.4 10*3/uL 1.00-4.8 [facility] Lymphocytes/100 WBC Auto (Bl d)Ordered By: Henry Hernandez on 05-09-2022 Lymphocytes/100 WBC (Bld) 22.7 % . [facility] MCH Auto (RBC) [Entitic mass ]Ordered By: Henry Hernandez on 05-09-2022 MCH (RBC) [Entitic mass] 29.4 pg 24.7-34.3 [facility] MCHC Auto (RBC) [Mass/Vol]Or dered By: Henry Heranndez on 05-09-2022 MCHC (RBC) [Mass/Vol] 32.7 g/dL 32.0-35.0 [facility]ir [facility] MCV Auto (RBC) [Entitic vol] Ordered By: Henry Hernandez on 05-09-2022 MCV (RBC) [Entitic vol] 90.0 fL 80-100 F [facility] Monocyte distribution width [Entitic volume] in Blood by AutomatedOrdered By: Henry Hernandez on 05-09-2022 Monocyte distribution width Auto (Bld) [Entitic vol] 15.97 % 0.00-20.00 [facility] Monocytes Auto (Bld) [#/Vol] Ordered By: Henry Hernandez on 05-09-2022 Monocytes (Bld) [#/Vol] 0.4 10*3/uL 0.0-0.8 [facility] Monocytes/100 WBC Auto (Bld) Ordered By: Henry Hernandez on 05-09-2022 Monocytes/100 WBC (Bld) 6.5 % . F [facility] Neutrophils Auto (Bld) [#/Vo l]Ordered By: Henry Hernandez on 05-09-2022 Neutrophils (Bld) [#/Vol] 4.3 10*3/uL 1.8-7.7 [facility] Neutrophils/100 WBC Auto (Bl d)Ordered By: Henry Hernandez on 05-09-2022 Neutrophils/100 WBC (Bld) 68.6 % . [facility] Nitrite Test strip Ql (U)Ord ered By: Henry Hernandez on 05-09-2022 Nitrite Ql (U) Negative Negative [facility] No Panel InformationOrdered By: Henry Hernandez on 05-09-2022 Estimated GFR (CKD-EPI) > 60.0 mL/Min [facility] Creatinine Clearance (Chem 114.17 [facility] Nucleated erythrocytes [Pres ence] in Blood by Automated countOrdered By: Hnery Hernandez on 05-09-2022 Nucleated RBC Auto Ql (Bld) 0.0 /100{WBC} 0-0.5 [facility] Opiates [Presence] in Urine by Screen methodOrdered By: Henry Hernandez on 05-09-2022 Opiates Screen Ql (U) Negative Negative [facility] Phencyclidine Screen Ql (U)O rdered By: Henry Hernandez on 05-09-2022 Phencyclidine Ql (U) Negative Negative [facility] Platelet mean volume Auto (B ld) [Entitic vol]Ordered By: Henry Hernandez on 05-09-2022 Platelet mean volume (Bld) [Entitic vol] 6.7 fL 6.3-10.7 [facility] Platelets Auto (Bld) [#/Vol] Ordered By: Henry Hernandez on 05-09-2022 Platelets (Bld) [#/Vol] 330 10*3/uL 150-450 [facility] Potassium [Moles/volume] in Serum or PlasmaOrdered By: Henry Hernandez on 05-09-2022 Potassium [Moles/Vol] 3.9 mmol/L 3.5-5.1 [facility] Protein Auto test strip (U) [Mass/Vol]Ordered By: Henry Hernandez on 05-09-2022 Protein (U) [Mass/Vol] 30 mg/dL Negative [facility] Protein [Mass/volume] in Ser um or PlasmaOrdered By: Henry Hernandez on 05-09-2022 Protein [Mass/Vol] 7.8 g/dL 6.4-8.9 [facility] RBC Auto (Bld) [#/Vol]Ordere d By: Henry Hernandez on 05-09-2022 RBC (Bld) [#/Vol] 4.46 10*6/uL 3.60-5.00 [facility] Salicylateon 05-09-2022 Salicylate < 1.5 Low 15.0-30.0 [facility] Comment on above: Result Comment: Petty ents treated with Sulfasalazine may generate a false high result for Salicylate. Performed By: #### A CET, JAMIE #### [facility] [address] [place] [address] Salicylates [Mass/volume] in Serum or PlasmaOrdered By: Henry Hernandez on 05-09-2022 Salicylates [Mass/Vol] mg/dL 15.0-30.0 [facility] Comment on above: Patients treated wit h Sulfasalazine may generate a false high result for Salicylate. Serum or plasma albumin/glob ulin mass ratioOrdered By: Henry Hernandez on 05-09-2022 Albumin/Globulin [Mass ratio] 1.8 {ratio} [facility] Serum or plasma anion gap de terminationOrdered By: Henry Hernandez on 05-09-2022 Anion gap [Moles/Vol] 18.4 mmol/L 6.0-15.0 [facility] Serum or plasma high density lipoprotein (HDL) cholesterol measurementOrdered By: Ji Smith on 05-09-2022 Cholesterol in HDL [Mass/Vol] 182 mg/dL 35-85 [facility] Comment on above: HDL CHOL ATP-III CLA SSIFICATION Cardiovascular RiskHDL > or equal to 60 mg/dL LOWHDL < 40 mg/dL HIGH Serum or plasma total choles terol/high density lipoprotein (HDL) cholesterol mass ratOrdered By: Ji Smith on 05-09-2022 Cholesterol.total/Sarah sterol in HDL [Mass ratio] 1.8 {ratio} <5.0 [facility] Sodium [Moles/volume] in Ser um or PlasmaOrdered By: Henry Hernandez on 05-09-2022 Sodium [Moles/Vol] 141 mmol/L 136-145 [facility] Specific gravity Auto test s trip (U) [Rel density]Ordered By: Henry Hernandez on 05-09-2022 Specific gravity (U) [Rel density] 1.013 1.001-1.030 [facility] Thyroid Stim Hormone w/Rflxo n 05-09-2022 Thyroid Stim Hormone w/Rflx 0.80 u[iU]/mL Normal 0.45-5.33 [facility] Comment on above: Order Comment: FRANKIE SOTO Y Comment USE FROM ER PLEASE Performed By: #### H S TROP, CMP, ETOH, CBC, TSH3 #### [facility] [address] Thyrotropin [Units/volume] i n Serum or PlasmaOrdered By: Ji Smith on 05-09-2022 TSH Qn 0.80 m[IU]/L 0.45-5.33 [facility] Triglyceride [Mass/volume] i n Serum or PlasmaOrdered By: Ji Smith on 05-09-2022 Triglyceride [Mass/Vol] 107 mg/dL 0-149 [facility] Comment on above: TRIG ATP III CLASSIF ICATIONTRIG less than 150 mg/dL NormalTRIG 150-199 mg/dL Borderline highTRIG 200-500 mg/dL High TRIG greater than 500 mg/dL Very highStandard traceable to the Center for Disease Conrtrol and Prevention (CDC) test method. Urea nitrogen [Mass/volume] in Serum or PlasmaOrdered By: Henry Hernandez on 05-09-2022 Urea nitrogen [Mass/Vol] 11 mg/dL 7-25 [facility] Urine bacteria detection by automated methodOrdered By: Henry Heranndez on 05-09-2022 Bacteria Auto Ql (U) None seen None Seen [facility] Urine clarity by refractomet ry automatedOrdered By: Henry Hernandez on 05-09-2022 Clarity Refractometry automated (U) Clear Clear [facility] Urine glucose measurement by automated test strip (mass/volume)Ordered By: Henry Hernandez on 05-09-2022 Glucose Auto test strip (U) [Mass/Vol] Normal mg/dL Normal [facility] Urine hemoglobin detection b y automated test stripOrdered By: Henry Hernandez on 05-09-2022 Hemoglobin Auto test strip Ql (U) 1+ Negative [facility] Urine leukocyte esterase det ection by automated test stripOrdered By: Henry Hernandez on 05-09-2022 Leukocyte esterase Auto test strip Ql (U) 1+ Negative [facility] Urobilinogen Auto test strip (U) [Mass/Vol]Ordered By: Henry Hernandez on 05-09-2022 Urobilinogen (U) [Mass/Vol] Normal mg/dL Normal [facility] Vitamin D 25 Hydroxy Totalon 05-09-2022 Vitamin D 25 Hydroxy Total 36.0 ng/mL Normal 30-100 [facility] Comment on above: Order Comment: FRANKIE Shine Comment USE FROM ER PLEASE Result Comment: JESSICA MIN D STATUS 25(OH)VITAMIN D RANGE (ng/mL) Deficient <20 Insufficient 20 to <30 Sufficient 30 to 100 Reference: Aye Palacios, Geremias YOUNG, et al. Evaluation,treatment, and prevention of vitamin D deficiency; an Endocrine Society clinical practice guideline. JCEM. 2010; 96(7):1911-30. PERFORMED BY: [place] [address] PATHOLOGIST GROUP FITNESS ASSISTANT DEPARTMENT HEAD KELLIE ALVARADO M.D. Performed By: #### H S TROP, CMP, ETOH, CBC, TSH3 #### [address] Vitamin D+Metabolites [Mass/ volume] in Serum or PlasmaOrdered By: Ji Smith on 05-09-2022 Vitamin D+Metabolites [Mass/Vol] 36.0 ng/mL 30-100 [facility] Comment on above: VITAMIN D STATUS 25( [place])VITAMIN D RANGE (ng/mL) Deficient <20 Insufficient 20 to <30Sufficient 30 to 100Reference: Aye Palacios, Geremias YOUNG, et al. Evaluation,treatment, and prevention of vitamin D deficiency; an Endocrine Society clinical practice guideline. JCEM. 2010; 96(7):1911-30. WBC Auto (Bld) [#/Vol]Ordere d By: Henry Hernandez on 05-09-2022 WBC (Bld) [#/Vol] 6.3 10*3/uL 3.8-11.6 [facility] pH Auto test strip (U)Ordere d By: Henry Hernandez on 05-09-2022 pH (U) 5.5 [pH] 5.0-9.0 [facility] Office Visiton 12-19-2021 Follow-up visit [id number] Antoinette Recio 1995 F Date Provider Department Center 12/19/2021 [id number] [facility] None No family history on file Level of Service:[address] [place] OFFICE/OUTPT VISIT,PROCEDURE ONLY Reason for Visit and Comments: Rash [169239] - Itchy - painful started yesterday - Normal [facility] Progress Noteon 12-19-2021 Progress Note [facility]ARE [facility]ARE [facility] [address] Dept: [phone] Dept Loc: [phone] Subjective Antoinette Recio is a 26 y.o. [...] occasionally words aremis-transcribed.) Lorin Tenorio APRN - KAITARA TARAKA 12/19/21 Normal [facility] CT HEAD WO CONon 03-18-2021 CT HEAD [...] GREWAL Date: 2021-03-17 22:52 Normal [facility] Operative Reporton Operative Report Date of Surgery: 06/14/2020 SURGEON: Jordan Bhakta D.O. FIELD REP: TOÑO Chowdary CNOR PREOPERATIVE DIAGNOSIS: Displaced midshaft [...] Clean Jordan Bhakta D.O. gls Dictated: 06/14/2020 #[id number] Typed: 06/15/2020 #[id number] cc: Jordan Bhakta D.O. [facility] Comment on above: Result Comment: Elec tronically Signed By: Jordan Bhakta DO\.br\Date and Time Signed: 07/16/20 20:57 EDT Coding Summary.on 06-25-2020 Coding Summary. CD:[id number] Gh 0bWw+PGhlYWQ+OG2FHWQkE 31wdOWslX9OS6nDNN7ASXY HXZJDNA8INK5cqPE9CHabQ 2VybiAv PtlzoRGoUC42OOk8OSG8xH dgKKfbkX7koFVbS6x4FlWj UW98wP95FSbeYODyFcI5Vf ZpbjsgbWFy P3bcZzWaaNArDmd+PHRhYm xlIHdpZHRoPScxMDAlJyBz uSxpJD1uIk9hWJLcCRXbqN xhcHNlOiBj m9asCWToULvuVK7xzLksH4 IuwKT4IXQcy8o7Kw99lIM+ FIPkCQD3nCepDLuiu741Lt Www6lvHRD5 uSWfJGckOSE8A02xm0L8CA CmVRJjEXH9iGM0xJ9akEcb wjsyF0KofREeYeM4VOO0pX XyoP4wdLaj dantaQ3wNjq+B89BJS1WXD YHGT8GUur2I2NqSwvsjKZ+ WC51CUGmEI63gAAdnTUos2 otcFe1MkWx GRFpEWP3qQnkXOsgv6PjHO FaG36cfSOal1G8YXBirUdd fBUdLaKikDC8aV9uZOdqap juz1plrdpc Xmmij8atkn42bF55C51bDJ qcKQLfAVY8PZCmIFMgsMeb zo0tfY3zQd6+NBcla8rac9 vllHq5RcUr RIBinoFfxHorRAJ0m2RfSb 78L0PjgQehl6PkSvy4qg43 cLUhh0C4oQQ9GTioEYYhxC 4qWLdfZyQ5 GTIsAzYkoK73zCZkEDzeSu 1tiNdccNkxYQ9kVDCoedwm UWXdtH3dUTRayNRurTyfRV 4wNTBpbjtm a696VbJtFKE9KMNmcBQrU1 UbcL1xYrRmUVZvNEUfV2Gw lJAnBGzfN487OMhqTyK4XG CzvdMeV6Bc UMKnnXioQhP4m5A2Wi6Vt0 GqjsqqIQK5OOhuSFC7RcM4 DuTzAxY9B2WeLos0ZOOeeM pdEC8dU8Ab IRVwlbilqbseiBG2VDUiPB YafC27eDEoPDjvIp8nh0S6 e109HXGmMOAivU20Xr7diH ogMTBwdCBU uG6cbwdns7vakpavYgJiBM GyVNd8PAw2JHBpeCxsNmNk KPK0PnB0EPM3vLGdfF9mqG ykgpqrnX0w Oyc+Z60rgI6pSOP4HSZ5fb veZWBfnkVqHR03VN32Z5Zj PjwvdGFibGU+PGRpdiBzdH wfMP7yUxNa l8cnn1PlTRonS7XpXQCuSZ euGov6OBLnGLZ8jYJ0rH7s XELjXFbww6T0aYU4S8Vmyv Xsdq3oh3lj YIFsSOqfM81kiUHpw8X1WL AdkLR8YEXyeDecNfGmtK14 Oyc+WLQngCrci6RqVqmja0 toy4pulZz3 GcClEOZdplVvtIuuMOF5t8 GcHj08T49yGGmcCVNoLZCm LYYrGZHfyJpezk5ohO3bRc 8+PGNvbCB3 zBY5eF3vHTQiCdA8XVzgQ6 33YuRniQZdJrhrm3spr1sd pJx3TcYhZAJenvZeyYxiRB S1a4CdZn47 E32nJRvxLEJrLUSuBIUcBY QrsAxyuz1srT3sXg6+PC9j g9ucfu26kI20ePH+PHRkIH L2gIgiQBab PHQjaX3jIGicLtP8QAQjEf YbrW62vWXtBJacVr0cvRni qStvMM7aDISofkrzl200Ag Atd3zlJFTy tVBsRBbvMLJ8G45ed5E7EN TbTUCkXRO9zFH7hW8mpNzp bjogbGVmdDsgdmVydGljYW ufPKhnH501 IHRvcDsnPlBhdGllbnQgTm JpYXk1K0XmGur7NUQfbAlz HO1jvHQrZVjtJd4iiLeoiO nzLF7kTMAj qftuy055RjCft9lkOTNqcA TuIWkdMRZ3O96th2D9KOQa OZMlUXK7vDS4bA8ejKfhdv ogbGVmdDsg igQjgIbyWDfdZRbdZ378PQ RvcDsnPkJpcnRoIERhdGU6 NK70GX14bMBqh1G2xDO3T6 BhZGRpbmct yrwrrMT3HFYhCJJeeX53Il 3umNooDw3qDXYhMVS9OEWy qOQwU2CujB2qDyYxAGLoQK OkD7QgiPGn VTiuB760VBapNmP8MKWynp TwQ5JgXHNziSmgQhH8s1T6 Gq5VQ6K6SR14NU71lNYpv1 F8kOC7X9Pf HDFwxkxqxgmueMU9QGGyLT GneE21Iw6clKaoZe6tACBy SYB0PFJxrECyP4YshP7vGh AjMDAwMDAw G5VveDAoHQigH749GRtgTe O1NEMjzfKcZ4ZqOGDvrHbp FhL2z1Z4Pj7JETa8DT55LQ 60oSTcm3E9 iVM7A3EoPQGskoouttgjtN F0KBRoUXKftY30Gm7qnDvj Ll9rVSWsXCK0RWIphFThC9 CdpP0wGeIa PIJvXFKpA3CilFOqASnaH0 77ISpnQpO6UIPfcxRaP2Hc GLZvqYpjIjN0i2S2Rj4BPL NjHU89KMI4 wYZ9GI80OL75V2GsYqggkB FibGU+PHRhYmxlIHdpZHRo QNvnQNOcHmDflRxdTN1mFe 9yZGVyLWNv eAqljYHhDkUom8zcOMQaUX kzYB3mvWrzZ3DxaNE7PGWp o0q4Lg75X85gE3DfaCU+PG FfdLN5oSU3 lU1lMcKeRvK1QUfzB843Jq HlaSDrNfscs5zhg3dwpNe1 OrG2AKFvvgGzwVelGQP0w6 EnBs65M46m IHdpZHRoPSIxNSUiIHZhbG dmym8wxN8eVv5+PGNvbCB3 uRE0eK4lQcIdOsA5CAwkH6 49InRvcCIv Puvxa2svh6txxYm1OgSeEB TlvxOkxZusPYF2x1BqRj67 P9GzoVinf2PjXlb6fn45pV Iyw1D3xYP1 C4ZyAFBjbprxbQTylIgiIF 5cKLFkbjzrHGXjyU6rFABa F9p1GdAtKzT2GTnqQ0Utcm P3NPXkqRXo MRulARR3M49zb6T5XIKlNQ WqBOJ7vWG5iW2yqTaljwqi bGVmdDsgdmVydGljYWwtYW moD104VEHi jIpyMVJdwE1mAAMnvUStsE viOX7tKEKwqvavXeQFQvQS NKnqAB3AFnHBSRAeBpwmcA Q+PHRkIHN0 nSnrPSciGRUaqH3hQKXnW7 j3WjZyGuG7VKlsT8ArMVOw squoWh04sQ9rOkJgFlU4XP luK4JsthR9 WIZqfCDvCDnhUEQ8U85pg5 B5SDBjXVQzSFR2qHY3xS6p bGlnbjogbGVmdDsgdmVydG ljYWwtYWxp O800WBYapZvsGqWmZzFaVj A9GQL4M5EmBxe1JQBxoJdq AI1jqIKsWWiwGl8kkUjwnV vyAM4hKZSv heomDFEfsL7eDTBfmJNwnO gbUK2gZWIvlbxzl404AlDh RNF3CJPxeXLnR9HdaQ3uIk AjMDAwMDAw N6TiyGNbIPcxW862EYgjQn M7IEFzikTuP1LuGSLhaFyt XbR6p1X0Wv4hNIZMNXNqto wvdGQ+PHRk DFG6wJjxPRpcIEDukT7rLE JcA9e0WqUdQjW6JRrbR6Gk CPDxikaqYd06fO5tJhNyOj Z4HTxsP9Bh jlE2ADTyxHCpYBpfKDU9D5 4oi5V6UMKpXQRsAJJ7sFJ8 aL1qdEhbkrmswCSeeGznwh VydGljYWwt YSigA627CJNriMfpXvTwsH FsZTwvdGQ+CGLuRRT6zTes XQzyCSJzzL0pJZOqQ2t1Rz PmKxQ2OVlj U4CqTKQjwmfoMz78kS2nFr GoUzK8AFerH5VwtpY1RKKd eVDiFUpfPVU9N76bc6L9HM MwMDAwMDA7 jVZ9xX9egDhdgvcefEYffK kcwdZesBamAOixUOcqO562 IHRvcDsnPkFtYnVsYXRvcn ohW3SbLDMR HWdkT2AzN6LtuRpulNC+PC 11hq38F8AzPydbXqq9MSOf OWP8qJG5fA3dQYZoAKreo9 A1dLL5T9Xz jfComz3dp8wcGXCeSDtmS0 0auSRja9E5QBUfeQX7UZCt mCemJbPhnN54Stq+PGNvbG mpd5XcEjsv u7kbv6tcpAk8KkEjNLFfdi NcbFdlZUA5j0CwHq21Z56t IHdpZHRoPSIzMCUiIHZhbG ctdj6waF0b Ii8+MFPmxIF5zPG4jJ5rWi LqEvS3XKyrC719CmSyoHKv Wofak9zll5bfiIj0TzMyAM IgdmFsaWdu JIC0e3MrGv09J7XgnBwgg5 CpTan6ka94eNRys6V9aGI7 N5MiUJIqynpnjZVmpZnlSJ 4yMDBpbjtw FTQtsX1lPNObP8z8BdNoWk P3BHxfU4MwnaI0YYGgfIXb HUPosQFYvR8jnnsai2ympi ogIzAwMDAw IUj4FPo0CLAulNoeIzFkVD D9UpB8HGN0aFZkdI1ayKmv byvoiH4oDde+RDu2f1wuvB JrLG8uhYH3 FM60FE30zTMvv9Q6xDU6G7 NhOHUrmytcfjmmtTR4DDTh PRVmrT18Jp4cuDapEx4mDX QjCFI4IXNh lLIxJ5NqmY8bCqWwYCChUI DfJ4ChzBQlYCssE751XZwu PbM9CURpelJiB3QcWNDbwF dpMeU8c5U2 Fi6PQE89WF90PY45fTAgy7 R3kRK9U5NaTOAldmiofjzt cGK0GPVdEVIfhV89Jg7huK yaUp9oWSGf ZAB8CJSzkIGcE1LrcU5rEw MnFDNfXPVzK7KeoEFgVMmo Y775CKxwNuD9DLZtkeLyS5 FsLWFsaWdu YcY8f6A5Yf4JAu35YB84PK 51fAAlr1C5rMH5N3PfMTCt xouyswvrjZO7RCZpDDOkvO 50Oj2wjPzl Kr7hDCBwTYO6LWMrzZTmU5 LlmT0oTaXmWYNsVEKwX7Vj lWZgVIizN632WCjgMuS2ZL VdsyMnN3Bb RVNaiAejZoX1l5H3Zm7ODY wsalk1O4RgXiloqJM+PC90 ZQPeSS36hHIvpLUgh8biwN n8IeJwEOCl IHN0 (more content not included)... Normal [facility] Coding Summary.on 06-24-2020 Coding Summary. CD:[id number]:[id number] Gh 0bWw+PGhlYWQ+EY8XTJDdA 29ifQTkeQ4VL1wXWW5QEIX CSJSUTN2PAV1ihFE1NXemL 2VybiAv NqsrhZQvHX71KOn7OXL8kB fcNMrotC0ygQFrX6z3HeWb YK33sS41HSejBQAtDrK4Cr ZpbjsgbWFy P7rrHeRpzKVgPip+PHRhYm xlIHdpZHRoPScxMDAlJyBz vZlvPM6aKb5xTXKjJRZebH xhcHNlOiBj l2uiGJFlMWutHJ9ymYbcD4 GzqRO9GVCpm6w7Vg86bHP+ VRLpXYR6mKyaDTodo673Hn Daz8eiKOY1 nVGaESysOLH0M82io4Q9CY XdLZIkKAG8dST3aC0zvSpe ysxoM9OlkVFtQoJ6OWW3oP JnyL1xrWmc wlgwtM6qHiu+C99NFZ1OPI GMZF0XDpa3L1GsZahoqQV+ MJ97UOBmFU25qLBxlDDud5 vtfGr8EuUl LYIvWXU9vYwfQAvwm3PnLG CdE24mkYWvt0K4RWBhuTzw oUEkCvRvlGE3zC6gJFbsgn mzy6fmkcxc Qhxrx1ozbk07xC45A35mLQ uaVXEpTDC2URNxNWKfsPnz rj9seI0pTw0+PNauf2zfv1 yekAo9CcSw DEHskzYtzJwjHCK0u1SvCs 52M6VwvGfyv3TgYkb6sr59 lEAtt0Y8cTS2YKicNITnpU 6nWTujSxY8 BWIzRzVzsT15mXAlDNjlTo 2ynMtjaNqeMY2cBBDgffca ALYsuT7pMRGaaHVbfGsdMA 4wNTBpbjtm v930KlVrDNX0GHMimJEkG3 VdtK6nRmXqZDIyVBRiO6Oq jXXoIMalM773XBpcBxZ1GO XtueDwS8Yx LDLuaOqzRsW0u6I2En0Sf7 DfmwyoFGV9IPxgFMO0OeA7 BmAnHnF6R3FrNug6XGQmvW ztMF9xX2Wq BMIhvegrptritKO1UHNoLF LutY94zSZyMFfmKy0bl3P7 h548IOKjGXAcdS56Kf7eyQ ogMTBwdCBU hW1insetz0vnpczhBhHeOK HzLLn1HJf5XSPntYhcSeKw SMV8UyY8GAQ7wKIpzU4ziF thmeozyK0r Oyc+Y81zsT9eYUI6SYX3fp uwUFHghjPwWV61IQ29Q4Sl PjwvdGFibGU+PGRpdiBzdH hpCR5gNzUn x5yhz2InAKylS2JwSLLtCG bnQch9IPYqJCN5tKZ2bZ4c NNKlLDkqk6M5sKS1J8Ochf Quqt6ui9go CIWxRShpH35xvDMmo7K8HY HzdHW3RDLduUyfYsQriR23 Oyc+MNBljEeyf0ZyYygwt8 ota0hafJg1 PlQiDPIqouGuwTfiIFI8k6 XmVw57U56rSKicNBQmYCFk EUZrYXYxeEbbjq0klD1oPn 8+PGNvbCB3 eKI5oC4nGXEaFwM1PFuqO2 33ClIqeHPeVyqyh1bgp2ml dJb5GgPaPKGutzHuvCrbKL K6i7VnGi66 A70bEHvlCQMaIDOoXJWnZE GglMsrco6boZ3uPl4+PC9j o8uxbi56hM53fFL+PHRkIH X5bMobLYzj BMTgpJ9gYNjpObQ9ZWIfWr YfqW70vWFrBRdcMo8nuHjn yZjeEI9uOUQtrkpqm200Ty Lqe5ziNXDl rMIiOOlkRTM2O41ih5P3XH GjNCJmWXY6wVG8uH5dfSzg bjogbGVmdDsgdmVydGljYW rlMHynQ367 IHRvcDsnPlBhdGllbnQgTm YkSJb3F2XzQmi1DOMdoPfq WE5oyYKqAPxxEo4exQlemD wnPT4rLNGo vkibx594MrAii5qiJTTdcW UfFEelEAK2Y39qf8M4QQVn QUMhXSZ6xCE2yB7nqNomfd ogbGVmdDsg dkOxiSgnASreEOqzT495DI RvcDsnPkJpcnRoIERhdGU6 ZW04LZ19vPKvc2Y0wFM7J5 BhZGRpbmct hhnfpAN9ZXOnNRUubH87Is 8vlKrtPo5fDUBdGKX0LAQf eJByV9UfbB6nRcNlLEVyRC AhO0SwjACc HOvaO133QTkyKhD1KHLrkb MrF6IrTHHogGypVtY3o9S4 Dp1CN7X2WN20SH01iSOpb5 O4gAH7Z5Ep AUPzddtpjoqrpXH4UMRtUC LipL05Th9gjPwaPk1jPHUe UPL2QLIrlOTtZ9LojM1dTy AjMDAwMDAw M8AvjOYpJFnpL520MSojUe P2HIHexfOsJ7SmCCDmmCrl EiZ0v2A2Rx3NFCf1RH09BQ 78qTPxk4Y1 vNN2M0IpTHBsrpappxauoD B1OYKaDUSyvJ94Zu8btVki Gp2aMWSzWBC1YIFjbORwC0 XagV4hOpPx XUHzFRWjG5ZuoNFrEMyrG8 26CIobPnU0ZETdtmAgU7Do DSQdtLigGoG7d6J8Sg9HOK YkGV24UMG0 aJR2JB77KG63Z1OtTvcgrC FibGU+PHRhYmxlIHdpZHRo SYenSXCvFuRmzBhfBW0vMf 9yZGVyLWNv dYwiwQZnVmHtd2jrHIMgZV avTW2tlCvnZ4FuaEO9DSVu v8x0De48I22oS4UkuHC+PG JiyJU4tLK1 cY8uLnPiLjQ5NTuqO142Yj ZtqCOqPzsyc0kgm9chjAg3 GvQ4RNUoxkKwjTtzOLH4z4 KwSm90B93m IHdpZHRoPSIxNSUiIHZhbG seyk3geY8vSw7+PGNvbCB3 pOX6dF5iFuZhArQ6OGznL2 49InRvcCIv Uskmk8uyp5yksOl9MyKmAK OnivTheHfbJHV3z3RnPc01 G9KlpZczn0RgByq7ec33lD Ksx8P9eCO7 O2FfLTAtnyogaKWdzRehAV 4lSMUqmigjIBZluG0rPOYk X3m8WgMyImK5UNieZ3Rxjd Q2CDOguBFr XUsfHMC8Z91eh6N8KLWcUK NmHHT7kXS6yM4bzHjnpayy bGVmdDsgdmVydGljYWwtYW gdJ758EMNj vWmkEBFaiE4aINDbnOIgjF lqQX4cXHGzlbvvBrUBKwXD RCujHC0AAsXCHUUpSojdhZ Q+PHRkIHN0 bTljNAucSKItiL1rNHKjZ3 o3QhAhTkJ3QAnzU6AkAIIu iyisSd03rT6lBxTvWlH6LI qgF8MzcaH9 VAVwmVYgEHzlTBV1K70dp9 Q9VAPoEJGaHIC5dEN6lB2f bGlnbjogbGVmdDsgdmVydG ljYWwtYWxp Y946OGOlrZbbPhPcQzOwXw F4QNE6U0CfWzr1STYtzRdd XH5ooDHeDYbaKn6goVvghZ mnLM6bYPXm itklKBUdgK0hPEXxxZTujM jrEA5rPWRxfgwhu666IeCs JXP7USRsvJTmM1TebJ3sEl AjMDAwMDAw Q0BwiVWfTAidC900NMkyBq F0VLJhxlHdR2GbIJVvgTtf XfV7n5E0Qk6zKOEQFUVkbl wvdGQ+PHRk PIK7bOkcCSkcCXYejJ5uDH MeG4p9SgCfHrJ3TUywY7Kn MVVlrjwhAj80sY0lZuUmUn C0ZKcaB3Qp kuD9DNYjdZOzLPrnTEQ8Q2 1gs9O2LXDpYSUzRNS9jBA4 oB3duRlzxoupdBRegDjgfj VydGljYWwt JNwzJ597CYRbkWivDfTrbS FsZTwvdGQ+UQAoNNY8yQqo OYfrHHUypH4oFMJrP5q3Hk YzKbB1KGrw L6YeZYZrzmylYt33fB8nYe WyTtD5LMfzW3PxcxO9AFWh nCVdRBxzHWN0S19we0N9FW MwMDAwMDA7 lYN4xN8vvWbzsmwmbZJerA kirpZjwDleAFcoDQicQ616 HHAemLitKa07mKJdjKwnqc Y2O0OzQjra dHI+QF05CLIqUC36gCUvzD Nwx6axzPs3ApLeXMJyADL3 uRpeXZmka2AuXKEaA32tcO Kac3A8TJFj aUjdvAXpShXmdFG6wM3aCR urcfwfn5erjfjjKyvlt2aw tx86qA36G47kRRcfQZTcGW IzMCUiIHZh cWqvjw3ghM4yEt6+PGNvbC R8kSH9sN0wDwLyPkA8MXrq D215ExJpjNNsHcvbk3ttm9 pnfFg0QbRg CYKroyNglNixDMS0s2YoVm 67S82aNRlbIQWqUNNgCGVt DORxmCbrtv3pzF5jFs5+PC 9il0xidc65 xT19xGQ+OKHtXSJ3vOfiNG xpTLHlwV0yLEqeNcL3YGVz VjPdgQ52mHQnPKpcIt8roN txeUqxFQ7m KUIcuhkbv346FqKss5koLK WrcTFsXCfxQDY8C72kg7Y6 GUXeTZZbBKV6pDN3sQ5oxM lnbjogbGVm dDsgdmVydGljYWwtYWxpZ2 22HTJijNzrWyBkbXYfT8av laSYQB3lTyvrrJW+PHRkIH S0uFhbOQdd PYTbgF3dEULaG4v4VbAwQu Q3VRcqT6WaivZ4SOUdyVGg PKNgyHFJcK9uyeelo9nafw ogIzAwMDAw UNq2YPy9TWZnyJfeWnEzSC V4WdP7MIJ5pXBweM4aeXga nelvlR0mFjv+RklOOjwvdG Q+PHRkIHN0 nLmyOExuLXPvpV0sTWMnY6 y3HaTsMzS2KKykR2TbbrP6 KKVjaKImJRXkaUJKiE5iwt hzk4xfferh QcTiMAMmFWl8CDz7CESilJ qiQpXhSCP0DcV7IUC5bTTq qS4wdQjlilrepP2lSbk+TV JOOjwvdGQ+ NWKaAHW1nEifQGkpYHGuyS 7wKTXnZ1w8KeBoUgS1DZdo X4AxamC4UFNgwHZjVAYzoK AYoC8iveya q8pwbbetLhTlUGHjBPn1KT y5LOQhbRioUcNkJWL1OsA6 WGQ5oBUquY3ayIozzeublO 9wOyc+UGF5 ONC3RT64SU14P0KyTjzquN FibGU+PHRhYmxlIHdpZHRo AHzsMBXiMvCwqEadIN6hVj 9yZGVyLWNv bGxh (more content not included)... Normal [facility] IntraOperative Documentson 0 06-22-2020 IntraOperative Documents [id number]#1. 00CD:127 Normal [facility] Main OR Intraoperative Recor don 06-20-2020 Main OR Intraoperative Record IntraOp Document Type FT Summary Primary Physician: Jordan Bhakta DO Finalized Date/Time: 06/20/20 12:56:01 Pt. Name: ALESIA RECIOANDA Azalea Ramirez/Sex: 1995 Female Med Rec #: [id number] Physician: Jordan Bhakta DO Financial #: [id number] Pt. Type: A Room/Bed: [place] [address] Admit/Disch: 06/14/20 15:28:52 - 06/14/20 21:05:00 Institution: [...] Role Performed Anesthesiologist of Surgeon - Primary CLIPPER MACHINE OPERATOR Record Time In 06/14/20 17:11:00 06/14/20 17:11:00 06/14/20 17:11:00 Time Out 06/14/20 19:10:00 06/14/20 19:10:00 06/14/20 19:10:00 Procedure CLAVICULAR FRACTURE CLAVICULAR FRACTURE CLAVICULAR FRACTURE ORIF(Left) ORIF(Left) ORIF(Left) Comments GOLD [employer]ATT - [facility] [facility] STUDENT - SCRUBBED IN Last Modified By: Shreya RN, Alycia Cash RN, Alycia Yin RN 06/14/20 19:14:30 06/14/20 19:14:30 06/14/20 19:14:30 Entry 4 Entry 5 Entry 6 Case Attendee Julian SARGENT, Jhonny Cash RN, Isabella Johnson Role Performed Scrub - Primary Processor Grain - Primary Clerical Secretary Time In 06/14/20 17:11:00 06/14/20 17:11:00 06/14/20 [...] Outcomes Met? Yes Last Modified By: Alycia aCsh RN 06/14/20 17:46:29 Post-Care Text: The patient [...] and sympto (more content not included)... Normal [facility] Operative Reporton Operative Report Date of [...] Godfrey Graves Jr., D.O. gls Dictated: 06/14/2020 #[id number] Typed: 06/15/2020 #[id number] cc: Godfrey Graves Jr., D.O. [facility] Comment on above: Result Comment: Elec tronically Signed By: Godfrey Graves JR, DO\.br\Date and Time Signed: 06/18/20 09:48 EDT Postoperative Documentson Postoperative Documents [id number]#1. 00CD:127 [facility] Progress Note-Physicianon Progress Note-Physician Patient: [...] constipation, # 20 cap(s), Refills(s) 0, Pharmacy: [facility], 165.1, cm, 06/14/20 15:51:00 EDT, Height/Length [...] food, # 60 tab(s), Refills(s) 0, Pharmacy: [facility], 165.1, cm, 06/14/20 15:51:00 EDT, Height/Length Dosing, 74.6, kg, 06/14/20 15:51:00 EDT, Weight Dosing Problem list: All Problems Clavicle fracture / SNOMED CT 66138056 / Confirmed left Physical Examination Intake and Output Denies significant n/v and is tolerating p.o. No qualifying data available Respiratory: Adequate air exchange with caodaism of preoperative function.. Cardiovascular: Cardiovascular function is stable and has returned to preoperative levels.. Neurologic: Pt has returned to preoperative baseline.. Review / Management Condition: Stable. Assessment Anesthetic outcome No anesthetic complications noted. Plan Transfer/ Discharge: Patient can be discharged from PACU when criteria met. Condition good. Normal [facility] Comment on above: Result Comment: Elec [...] data available Respiratory: Adequate air exchange with caodaism of preoperative function.. Cardiovascular: Cardiovascular function is stable and has returned to preoperative levels.. Neurologic: Pt has returned to preoperative baseline.. Review / Management Condition: Stable. Assessment Anesthetic outcome No anesthetic complications noted. Plan Transfer/ Discharge: Patient can be discharged from PACU when criteria met. Condition good. Normal [facility] Comment on above: Result Comment: Elec tronically Signed By: Godfrey Graves JR, DO XR Clavicle Lefton XR Clavicle Left Exam Date/Time: 06/14/2020 20:16 EDT Reason for Exam: Fracture Report IMPRESSION: STATUS POST ORIF FRACTURE LEFT CLAVICLE. CLINICAL HISTORY: Fracture. COMMENT: 2 limited wnlcd-ok-ickm C-arm images were obtained in the OR. [...] Dose: Gener in mGy = 3.7 Normal [facility] Consent for Anesthesiaon Consent for Anesthesia [id number]#1. 00CD:127 Normal [facility] Discharge Instructionson Discharge Instructions [id number]#1. 00CD:127 Normal [facility] IntraOperative Documentson 0 06-15-2020 IntraOperative Documents [id number]#1. 00CD:127 Normal [facility] IntraOperative Documents [id number]#1. 00CD:127 Normal [facility] Preoperative Documentson Preoperative Documents [id number]#1. 00CD:127 Normal [facility] COVID-19 (MC)on 06-14-2020 SARS-CoV-2 (COVID-19) RNA AIDEE+probe Ql (Unsp spec) Not detected Normal Not Detected [facility] Comment on above: Result Comment: This test result should be correlated with clinical presentations and medical history by a healthcare provider to determine its clinical significance. This assay was performed by a reverse transcriptase real-time polymerase chain reaction (rt PCR) method on the Spect[employer] system. This test has been authorized only [...] or revoked sooner. Performed By: #### 2 [id number] ####[id number] [place] [address] SARS-CoV-2 (COVID-19) RNA AIDEE+probe Ql (Unsp spec) Pass Normal Pass [facility] Comment on above: Performed By: #### 2 [id number] ####[id number] [place] [address] Specimen source Nom (Unsp spec) Nasal Normal [facility] Comment on above: Performed By: #### 2 [id number] ####[id number] [place] [address] Coding Summary.on 06-14-2020 Coding Summary. CD:[id number]:[id number] Gh 0bWw+PGhlYWQ+UX4JBAItU 80jnPDitJ5IM2tWGV8YTHJ LLTEJIF9XNA6mrUU7RDkkW 2VybiAv JkoajKSaHE13BBx8KSH9xM yjTWmlyK6xpNUrA7n5YgCv GO42bW50VPnzIUUgCsZ1Vn ZpbjsgbWFy D6tkGrZtsTHeIoa+PHRhYm xlIHdpZHRoPScxMDAlJyBz lVkxSJ7tMq7qZMSlVIWtwI xhcHNlOiBj r4neVECkEUklIH6cnMamO2 YzkWV3ARVit7y6Mm74zAF+ RVEmAJT5tOodNUcwh246Dc Kem9bqMFV4 jLHfFDfiPQH2Y65fz4N2TK CeJJOcEQZ8qXU4rP6ovQqm kcukG2TxyMYzLtY4HET4mM KmuF5gqRlk dqogvO8yVzi+P74JFK2ZOD RHKG5LRzf2A3CsPthxwRX+ XB81CQRnCK68dRZlnLOry2 rdvEw0EuAx VYVjNMH9vXpaVIubs3JrSW MiB41enFKpo7G6RRTnnZjj wLJxJvLwuOU5jK6hVZbghi hus3kfilma Szdof8yopo44mT44Z64vTW efTAEtOJB7ALIzACTpcWws dw0isW9dMi2+ZRwwd5iqd7 nwgZj8TaZe TCUhymQfgUhaUQR3c0FoFd 88Z2NhnUhsx2IcFad5ne16 zOXkl7C4lDU8JIaqYUFigV 3gDLohXsG9 KQTyYwPnrU28jCFpSLljCe 2htJbkuRohOC3eNQNgoxip ABXssC9vWBLbdVXprVgkDS 4wNTBpbjtm l757ImKdMML5XLXmhPOiH6 FhzI8wUeHeRBHmMNCwB5Af mKZxYLryG659ZCsoUcT6RJ DbvjOvB3Yq BSWufKzjHaT4t5E3Ka4Kq1 WpgnpuHCA7FCxaIVJ6BiT6 QoUqPeA5O7HeJwr2JZCjvP rcMS6eA7Ni WBUkuimymjwpwCO4CCMhJG ThrA89xJCbWMubWt1on2D2 r010UNFzBUAqeF10Ee1lsP ogMTBwdCBU jV5pscvmh5sarimaZgMpZH JsVWn8OHi4LUBlsKmzNtEm ZPA6BkJ6LFO7gPYrkU4hdN gdrfimvK7p Oyc+A29csC3uSOQ8LGM3jw gaITDzryPdKR07BB98Q6Ut PjwvdGFibGU+PGRpdiBzdH rfRG2eFoMl m3hds2WkMTdtX8WbUQJrDX qdCip8VYDxAFR5qZL9nW6g VGGfNEodv7S3cQP8R6Qdxi Vwse0pn3ca VZMzGVckI95gfGWzr2B7CI VuxQX7EHBvkYdsIqVyzT84 Oyc+RKRhpZrws1AyVukid3 tsg5cjgAs0 ByJhUOLtzqTmnCuzKLS1s3 ClWw39U86mMAwbEKOeVXZe RGZjTKFncEysif9atF8oNh 8+PGNvbCB3 yKQ6hI7oZJGrLlL8TFnfT0 47BnXlmPDbNigbo8zmn8fw xDn7OgQwRZXiqsWzxZkmYY R6f7TmTc51 I27lQWhjYQEdEOHwKZPzHV UjkFadel3vsH9oBb6+PC9j u0bzoc18aU69wNQ+PHRkIH K8bCmhSNml BLSssZ5zAJjgPhF6CWFnJg LouZ91cYCmZVqvYs3fjSqc eMjnYO7fZCGbrvikn456Ek Jpl4uiYOGk nDIpMQsxBUR6B43ki3F5WL NfAPWcZUP3sKK2vX3nuPvs bjogbGVmdDsgdmVydGljYW kwREqxC698 IHRvcDsnPlBhdGllbnQgTm VpLTj8H9TdXgc3XAKshLfk LY2awPXwSUzjFs1frIvosJ kzUW9nYPSq bheyt512EkQzq2sxYPKymS EaBEefDXY0S27xh1N7IXEx TKIrDIN4aIA4sM0myDgbcf ogbGVmdDsg lzSnjJuiUBgbUIueH996NL RvcDsnPkJpcnRoIERhdGU6 CZ08KH60zUZmq2A0sLX8R7 BhZGRpbmct glucdJD7LBHtYTJzsI35Ki 1vsJdpZu4kXHKyXOG2TRCk rSHjG9QftS4oZxHoIDSoNZ XxV9FbpGMu FEauU676YFdjOkV0NHKxgz NiB1VeVRQemOdhTiF4c9K5 Wd5DC1L9IX35TU89dHOpn8 B9zNL3Z2Wy AFPaujdlrvyhtCR4EQDtZL PlyX93Ky4opMpiOa0nRACf JYM0RZFjiOBkK6UlyX3pBm AjMDAwMDAw E6DtnMHeZZdnV330TAzgVd E7EYCqwaLbH5QkIICnrLwa RbA7x5Y8Ei2GHQf2HW05EK 05aZCvq3V2 pWL8C1YdJIUuckjwtxvkkC F2NKGeWSZbmK28Ka0nbLfl Qr2eUZTrMSW5RXYymXXdG6 FogA3nAdJe RMVlVPWcW4JsaJJlBOekY7 23VVflDaZ9QDGrzuKsT4Xe XDSpsIseEpF6e9I6Qn9HJE KaEU35TGG4 vTN0RU98LC48V7XzTllafK FibGU+PHRhYmxlIHdpZHRo EWeiZCNwYvKrkYiwLX4rKx 9yZGVyLWNv pCnixUNzPuIfl7onDOEtWJ bxOZ7wwXzlA8BbsMX0UHIk e5m6Jg32I93qK8QrgDM+PG OmfGH2qVX4 yS5xXtQbGlP7YUszK950Hn TgqAIrMgykh3bou8uyiVg3 GuD1TXGuagJqsDmwNJV4d7 BjIc22Z73m IHdpZHRoPSIxNSUiIHZhbG zxio8euP8wRb1+PGNvbCB3 fRX7kC4iZtXiTkA6HXljC6 49InRvcCIv Vhgdq8bcn2nufBz0BgIwGG JjezStaPvvRVX0p8KrDo92 F3BacQemy6ZpRoa1bk16oP Pwq3S1jGK0 Z3MgSHDuqyaceOTymYicTX 4tBOByttpbLWLmfX6vOXDm C3q2AxExLrF9IVciC8Qkan V1TTMsvYFt ORyeGIL9S70jy5Z4YZTeTP MsEPK8aWG2pU4mtCtmxlyi bGVmdDsgdmVydGljYWwtYW tnL576ZTJr xXosYEQdrI9wDYYtiATowI hoVI6cQJNdmkqrUjCBQeBX BUckHL0WZjWFQPTzUyfkuJ Q+PHRkIHN0 iGswMHlaUXOaiG7qWHKvV1 b0UjQsIzZ5WLqzL3GvDFVd sjqcIo22rQ4rRjVzLjP7ON qzP2YfpoJ2 MXNwjCFxKGssZKF3K79gz4 H1XYDdKBGyUOF1gBW2kT9w bGlnbjogbGVmdDsgdmVydG ljYWwtYWxp T606WUWdsZjdNrYwVfXlPd A1UCM8C4IyRyq7MKQbxNpk ZG9bdSGwQTuuBq8ldIhmjZ rfTS9dFPNj atmwQNRyaR3pDSWiePVzrZ qqEC1uVQIccusmh596NaOq NEW8TDXdwXPvF7NhmU8bCe AjMDAwMDAw M8FrnCDiDQqxL078MIylHw B4GDLzcmXoF9EaNXKvzKod HtV4h4E8Dz7mTIKJPABgwy wvdGQ+PHRk VQI2yPjsGMclGLCzrW8pUP YaE8e4QiVgBxU2VDqpE0Qt JUDznhozVm70aD4zDaRsXk I6SFgnL2Rf faC7PARfeCPbOAqoPJB8B4 1fs5T2STMrROSgQRT2aLG0 yT0ssIfwjipwrGIrnJmspx VydGljYWwt ZLetL615VKGcmIcpUySfxY FsZTwvdGQ+UCTfCLE2gPdw MEfuDJCmpR3lQMWsX5c6Jw KjPzH8OOrm K3VsDMDmulmxCl54eN2wLu VaIjE8FJrgR2HmpfN2FVOe pMEkQFteYAQ7M72of8O9XR MwMDAwMDA7 xQU3uR0oqDgbnzndwJNkcY slerVewTufLHpuYCurJ521 ENNuxMxdVcIcCVMyRJ7byN wvdGQ+PC90 ww16Q6GrPuwbMga8AOOpLK H8aTY0yT0kXMMyZAzzn9T7 wTU6J9QqktAcnv6ws6xcAD ReHBvnS38o hBCkm2U8QCJsoTE4ZURwjT zuPgIemU32Wcy+PGNvbGdy s8XiZdfif2zvk9cviAz1Sa MwJSIgdmFs aPyfOTV0f8UeFn24V76yHJ dpZHRoPSIzMCUiIHZhbGln xp0jgF8zKx0+YOIeuUP9yV C5kU2hGwJg AkQ5APfbV898FlDlyNWkNz dnd1zyn4duwBt1CnTvYYGd azPxsBojFSC9f8BcQl91Z4 ZshMehr7Aj Uwl3nv75xTMbr4I8bOO5J3 HuSYPevsaakNOqzCmdFI1e PEWdntenCHJrxV3pCCCoB9 b4IqTiNnJ6 WIgoR1UnmnK0KOKonEAoZV VaaEZUtJ4aotppi7lacgxr BmUtKZObTVt4MOx2GZJjuP duOiBsZWZ0 AsI0OZH9kUQstW5qaKgyul igdC8uKbz+ZKb6i5kgfBYx ST2swON5MD13HW14hYLtv9 O4rJB3A8Fb HBRcygujtvnvoBB6PJQlOR UmqD26Hz8tbHjqSg3tRUFm XKO1BVYhcMPzC1EgvD3aAc AjMDAwMDAw D6TspVUzQLulS493CEoiAq R0BAKdmbKiE2CuYZGlkTti AmZ1f7S1Xi8AFK60SZ78VQ 22qYRwr7B3 iYP3K5WtUGDndayrzjvhmD G1IHWoKXAmcX71Xq0anTfr Wu4sZDNnKEB7BTEvuHQpD2 AprG4jCcGk MYXvPISxO8KyjONiEWnxH4 02CHwzWrJ3OCCvspNiN1Qz YXNfzUmjAyL7l1H5Hb6KKc 54PE75JU17 rJRnx5T8hIK1I9CqNIUsio khakdbfNJ5WGZbTNDgwU67 Wm1kfGfbGe0oDKJjDUN6DC MtvTJgF7Cn oZ1tZbOqYEDdJJHjM9HqiH ViIGoeO291UMrfYnI8UDWi kmCmA2WdKDYuzJweWtN0h0 J8Ly2FPOcu xni4P0ClNmjesWA+PC90YW NhQP40oZEemQJil0lmjFr6 PpBbLFUjPIQ8dAypPFxnv7 SuAPUwG92u bGFw (more content not included)... Normal [facility] Consent for Procedure/Surger yon 06-14-2020 Consent for Procedure/Surgery [id number] 0CD:127 Normal [facility] Consent for Treatmenton Consent for Treatment [id number] D:127 [facility] Inpatient Patient Summaryon 06-14-2020 Inpatient Patient Summary [address] [id number] [facility] Clinical Discharge Instructions PERSON INFORMATION Name: ANTOINETTE RECIO [facility]#:[id number] PHYSICIANS Admitting Physician: Jordan Bhakta DO Attending Physician: Jordan Bhakta DO PCP: NONE, XXXX Discharge Diagnosis: Comment: PATIENT EDUCATION INFORMATION Instructions: Shoulder Cryocuff Patient Instructions - FT (CUSTOM); Post Op Patient Instructions - FT (Custom) (CUSTOM); Silvana Bhakta - Shoulder Replacement (Custom) Medication Leaflets: Follow up: With: Address: When: Jordan Bhakta [address] [place] [id number] [facility] (1) 06/21/2020 8:45 AM Comments: Call for any problems. Keep scheduled appointment MEDICATION LIST New Medications [facility], [address] [place], [place] [id number], [phone] acetaminophen-oxycodon e (Percocet 325 mg-5 mg Tab) 1-2 tab(s) Oral q4hr; as needed as needed for pain. Refills: 0. docusate (Colace 100 mg Cap) 1 Capsules By Mouth 2 times a day as needed for constipation. Refills: 0. Medications to Continue Taking That Have Changed [facility], [address] [place], [place] [id number], [phone] START: naproxen (naproxen 500 mg Tab) 1 Tablets By Mouth 2 times a day. with food. Refills: 0. Other Medications START: naproxen (naproxen 500 mg Tab) 1 Tablets By Mouth 2 times a day. Take one tab by mouth two times a day. Refills: 0. Comment: Normal [facility] Main OR PACU I Recordon Main OR PACU I Record PACU Phase I Docum ent Type FT Summary Primary Physician: Jordan Bhakta DO Finalized Date/Time: 06/14/20 19:45:42 Pt. Name: ANTOINETTE RECIO /Sex: 1995 Female Med Rec #: [id number] Physician: Jordan Bhakta DO Financial #: [id number] Pt. Type: A Room/Bed: [place] [address] Admit/Disch: 06/14/20 15:28:52 - Institution: Case Times [...] Yvette Santa RN 06/14/20 19:45 Normal [facility] Main OR PACU II Recordon Main OR PACU II Record PACU Phase II Doc ument Type FT Summary Primary Physician: Jordan Bhakta DO Finalized Date/Time: 06/14/20 21:13:50 Pt. Name: ANTOINETTE RECIO [place]./Sex: 1995 Female Med Rec #: [id number] Physician: Jordan Bhakta DO Financial #: [id number] Pt. Type: A [facility] Admit/Disch: 06/14/20 15:28:52 - 06/14/20 21:05:00 Institution: [...] By: Soraya Dixon RN 06/14/20 21:13 Normal [facility] Main OR Preoperative Recordo n 06-14-2020 Main OR Preoperative Record PreOp Document Type FT Summary Primary Physician: Jordan Bhakta DO Finalized Date/Time: 06/14/20 18:03:47 Pt. Name: ANTOINETTE RECIO /Sex: 1995 Female Med Rec #: [id number] Physician: Jordan Bhakta DO Financial #: [id number] Pt. Type: A Room/Bed: [place] [address] Admit/Disch: 06/14/20 15:28:52 - Institution: Case Times [...] By: Alycia Cash RN 06/14/20 18:03 Normal [facility] Monitor [facility] 06-14-2020 Monitor Record [id number]:127 [facility] Operative Reporton Operative Report Patient: [...] Anesthesia type: General, Regional. anesthesiologist: abhinav Williamson [facility] Comment on above: Result Comment: Elec tronically Signed By: Jordan Bhakta DO\.br\Date and Time Signed: 06/14/20 19:03 EDT Outpatient Surgery Discharge Instructionon 06-14-2020 Outpatient Surgery Discharge Instruction [place] [id number] Patient Discharge Instructions PERSON INFORMATION Name: ANTOINETTE [...] Follow up: With: Address: When: Jordan Bhakta [address] [place], [place] [address] [address] Business (1) 06/21/2020 8:45 AM Comments: Call for any problems. Keep scheduled appointment Pharmacy Information: [facility] You may receive a survey from Molly Salmon asking you to rate your care experience. Your feedback is important and will help us understand what we do well and how we can improve the quality of care we provide to you, your loved ones and our community. It?s an honor to serve you. Thank you for choosing [facility] HERE ARE THE MEDICATION CHANGES THAT OCCURRED DURING YOUR HOSPITAL STAY New Medications [facility] [address] [place], [place] [id number], [phone] acetaminophen-oxycodon e (Percocet 325 mg-5 mg Tab) 1-2 tab(s) Oral q4hr; as needed as needed for pain. Refills: 0. docusate (Colace 100 mg Cap) 1 Capsules By Mouth 2 times a day as needed for constipation. Refills: 0. Medications to Continue Taking That Have Changed [facility] [address] [place], [place] [id number], [phone] START: naproxen (naproxen 500 mg Tab) 1 Tablets By Mouth 2 times a day. with food. Refills: 0. Other Medications START: naproxen (naproxen 500 mg Tab) 1 Tablets By Mouth 2 times a day. Take one tab by mouth two times a day. Refills: 0. PATIENT EDUCATION INFORMATION Instructions: [place], [place] [facility] DISCHARGE INSTRUCTIONS: SHOULDER SURGERY [...] persistent vomiting. Jordan Bhakta, DO [facility] [address] [place] [id number] Reviewed: Normal [facility] Patient Education - Texton 0 06-14-2020 Patient Education - Text [place], [place] [facility] DISCHARGE INSTRUCTIONS: SHOULDER SURGERY [...] vomiting. Jordan Bhakta, DO [facility] [address] [place], [place] [address] Reviewed: Normal [facility] BMPon 06-13-2020 Anion gap [Moles/Vol] 12 mmol/L Normal - [facility] Comment on above: Performed By: #### 2 389662, [id number], [id number] ####[facility] [address] [place] [address] Calcium [Mass/Vol] 9.1 mg/dL Normal 8.9-11.1 [facility] Comment on above: Performed By: #### 2 699116, 48612130, 0852366 ####[facility] [address] [facility] [place] [address] Chloride [Moles/Vol] 105 mmol/L Normal 101-111 [facility] Comment on above: Performed By: #### 2 109082, 26598575, 3015864 ####[facility] [address] [place] [address] CO2 [Moles/Vol] 29 mmol/L Normal 21-31 [facility] Comment on above: Performed By: #### 2 178755, [id number], 8081527 ####[facility] [address] [place] [address] Creatinine [Mass/Vol] 0.7 mg/dL Normal 0.5-1.3 [facility] Comment on above: Performed By: #### 2 056949, [id number], 3643616 ####[facility] [address] [facility] [place] [address] Glucose [Mass/Vol] 82 mg/dL Normal 55-199 [facility] Comment on above: Result Comment: If t his glucose result represents a fasting glucose, interpretation should refer to the following reference range: 55-99 mg/dL Performed By: #### 2 798598, 71287000, 2809783 ####[facility] [address] [facility]Ns[facility] [place] [place] [address] Potassium [Moles/Vol] 3.9 mmol/L Normal 3.5-5.3 [facility] Comment on above: Performed By: #### 2 479772, 57390598, 1736866 ####[facility] [address] AveNsaint [place] [place] [address] Sodium [Moles/Vol] 142 mmol/L Normal 135-145 [facility] Comment on above: Performed By: #### 2 708875, 38620960, 2648872 ####[facility] [address] [place] [address] Urea nitrogen [Mass/Vol] 14 mg/dL Normal 5-21 [facility] Comment on above: Performed By: #### 2 718701, 74497726, 5338049 ####[facility] [address] [place] [address] Urea nitrogen/Creatinine [Mass ratio] 20 No Units Normal 10-20 [facility] Comment on above: Performed By: #### 2 338280, 88288347, 4297681 ####[address] [address] CBC w/Indiceson 06-13-2020 Erythrocyte distribution width (RBC) [Ratio] 14.3 % High 10.9-14.2 [facility] Comment on above: Performed By: #### 2 883473, 87086167, 6309822 ####[address] [address] Hematocrit (Bld) [Volume fraction] 36.4 % Normal 34.0-46.0 [facility] Comment on above: Performed By: #### 2 346765, 11963926, 9692256 ####[address] [address] Hemoglobin (Bld) [Mass/Vol] 11.9 g/dL Low 12.0-16.0 [facility] Comment on above: Performed By: #### 2 937469, 74220754, 2270720 ####[address] [address] MCH (RBC) [Entitic mass] 27.5 pg Normal 27.0-34.0 [facility] Comment on above: Performed By: #### 2 645673, 72441074, 0245627 ####[address] [address] MCHC (RBC) [Mass/Vol] 32.6 g/dL Normal 31.4-36.0 [facility] Comment on above: Performed By: #### 2 198777, 66837690, 6359362 ####[facility] [address] [place] [address] MCV (RBC) [Entitic vol] 84.4 fL Normal 80.0-100.[address] [facility] Comment on above: Performed By: #### 2 507373, 43723150, 3644681 ####[address] [address] Platelet mean volume (Bld) [Entitic vol] 7.5 fL Normal 6.4-10.8 [facility] Comment on above: Performed By: #### 2 138958, 14670807, 8071925 ####[address] [address] Platelets (Bld) [#/Vol] 319.0 E9/L Normal 150.0-500.0 [facility] Comment on above: Performed By: #### 2 915908, 95167922, 1778935 ####[address] [address] RBC (Bld) [#/Vol] 4.3 E12/L Normal 4.3-5.9 [facility] Comment on above: Performed By: #### 2 517154, 72696567, 1183214 ####[address] [address] WBC corrected for nucl RBC Auto (Bld) [#/Vol] 6.8 E9/L Normal 4.0-11.0 [facility] Comment on above: Performed By: #### 2 373996, 86994082, 1117032 ####[address] [address] Consent for Treatmenton Consent for Treatment [id number] 0CD:127 Normal [facility] Physician Orderon 06-13-2020 Physician Order [id number]#1. 00CD:127 Normal [facility] Physician Order [id number]#1. 00CD:127 Normal [facility] Progress Note-Physicianon Progress Note-Physician Patient: ANTOINETTE [...] selected or recorded. Procedure history: Gastric sleeve ([id number]) in 2019 at 22 Years. Tonsillectomy ([id number]). Social History Social & Psychosocial Habits Alcohol [...] review: No qualifying data available . Plan [place] [employer] Anesthesiologists (ASA) physical status classification: Class I. Anesthetic Preoperative Plan Anesthesia: General. , Regional Interscalene Block. Anesthetic plan, risks, benefits, and alternatives discussed with the patient and/or family. Pt. and/or family present and agree to proceed as planned.. Discussed the importance of abstaining from tobacco products, and offered counseling if desired. Normal [facility] Comment on above: Result Comment: Elec tronically Signed By: Godfrey Graves JR, DO.candice\Date and Time Signed: 06/13/20 15:05 EDT U BetaHcg Qualon 06-13-2020 HCG.beta subunit (U) [Moles/Vol] Negative Normal [facility] Comment on above: Performed By: #### 2 [id number] #### [facility] [address] [place] [address] eGFRon 06-13-2020 GFR/1.73 sq M.predicted among blacks MDRD (S/P/Bld) [Vol rate/Area] mL/min/{1.73_m2} Normal >=59 [facility] Comment on above: Order Comment: Order added by Discern Expert. Result Comment: eGFR is race adjusted. AA=. Performed By: #### 2 914985, 63453459, 3828136 ####[facility] [address] [place] [address] GFR/1.73 sq M.predicted among non-blacks MDRD (S/P/Bld) [Vol rate/Area] mL/min/{1.73_m2} Normal >=59 [facility] Comment on above: Order Comment: Order added by Discern Expert. Result Comment: Cloth Booker mile kidney disease could be indicated at eGFR's of less than 60 mL/min/1.73m2. Kidney failure is indicated at less than 15 mL/min/1.73m2. Performed By: #### 2 535877, 71042624, 8060143 ####[facility] [address] [place] [address] COVID-19 [place]-2020 Employed in Healthcare NO Normal [facility] Comment on above: Performed By: #### 2 [id number] ####[facility] [address] [place] [address] First Test Unknown Normal [facility] Comment on above: Performed By: #### 2 [id number] ####[facility] [address] [place] [address] Hospitalized? NO Normal [facility] Comment on above: Performed By: #### 2 060344466 ####[facility] [address] [place] [address] ICU NO Normal [facility] Comment on above: Performed By: #### 2 [id number] ####[facility] [address] [place] [address] ? Unknown Normal [facility] Comment on above: Performed By: #### 2 [id number] ####[facility] [address] [place] [address] Resides in a [facility] Setting NO Normal [facility] Comment on above: Performed By: #### 2 [id number] ####[address] [place] [address] Symptomatic as defined by [facility] Unknown Normal [facility] Comment on above: Performed By: #### 2 [id number] ####[address] [place] [address] Physician Orderon 06-12-2020 Physician Order [id number] 0CD:127 [facility] Consent for Treatmenton Consent for Treatment [id number] 0CD:127 [facility] Discharge Instructionson Discharge Instructions [id number]. 00CD:127 Normal [facility] ED Clinical Summaryon 2020 ED Clinical Summary [place] [id number] ED Clinical Summary Person Information Name: ANTOINETTE RECIO Yeimy/[facility] Age: 25 Years : 1995 Sex: Female Language: St Helen[place] PCP: Isaiah BHAKTA MD Marital Status: Visit [...] 06/11/2020 12:47:55 06/11/2020 12:47:55 06/11/2020 12:47:55 ADDRESS: [address] [place] [id number] PHYS DOC NOTES: MEDICAL INFORMATION: Prescriptions Given: [...] up: With: Address: When: Jordan Bernardo [address] [place] [address] Business (1) 06/12/2020 3:15 PM With: Address: When: Isaiah BHAKTA [address] [place] [address] Business (1) In 3 days DIAGNOSIS: Fracture of left clavicle Normal [facility] ED Note-Physicianon 06-12-19 ED Note-Physician Basic Information Time Seen: Sara Burdick DO 06/11/2020 12:18 Chief Complaint Pt reports broken collar bone and stitches above eye. Went to [facility] sat and sent to [place]. Pt reports still in pain and was [...] left clavicle. She was taken from the [facility] transferred to a hospital in [place] where she was discharged 20 minutes later [...] see the patient tomorrow at [address] in [place] and she is treated with anti-inflammatories and [...] Jordan Bhakta 06/12/2020 03:15 PM EDT [address] [place] [address]- Business (1) Additional Instructions: Isaiah BHAKTA In 3 days [address] [place] [address]- Business (1) Additional Instructions: Problem List/Past Medical [...] Signed By: Nathaniel SIMEON, Marisa Self Normal [facility] Comment on above: Result Comment: Elec tronically Signed By: Sara Burdick DO\.br\Date and Time Signed: 06/11/20 12:39 EDT ED Patient Education Noteon 06-11-2020 ED Patient Education Note Normal [facility] ED Patient Summaryon 021 ED Patient Summary [place] [address] Patient Discharge Instructions Person Information Name: ANTOINETTE RECIO Age: 25 Years Arrival Date: 06/11/2020 10:49:37 Discharge Diagnosis: Fracture of left clavicle Primary Care Physician: Isaiah BHAKTA MD Provider Information Primary Provider: Sara Burdick DO [employer] Associate:None The exam and treatment you received in the Emergency Department were for an urgent problem and are not intended as complete care. It is important that you follow up with a doctor, nurse practitioner, or physician?s billing assistant for ongoing care. If your symptoms [...] Instructions: With: Address: When: Jordan Bernardo [address] [place] [address] Business (1) 06/12/2020 3:15 PM With: Address: When: Isaiah BHAKTA [address] [place] [address] Business (1) In 3 days In the event that this physician does not participate in your insurance network, please consult with your insurance company to find a nearby participating provider. Patient Education Materials: A MESSAGE TO ALL PATIENTS REGARDING OPIOIDS PRESCRIPTION OPIOIDS: WHAT YOU NEED TO KNOW Prescription opioids can be used to help relieve vigwesim-ag-evlmkp pain and are often prescribed following a [...] care pro (more content not included)... Normal [facility] XR Chest 2 Viewson XR Chest [...] MD Transcribed by: MICHAEL Technologist: ABDULLAHI Tanner [facility] CBC AUTO DIFFon 06-10-2020 BASO # 0.1 103/ul Normal 0.0-0.1 [facility] Comment on above: Performed By: #### C BC #### [facility] [address] [id number] [place] Sherine Basophils/100 WBC (Bld) 0.5 % Normal 0.2-2.0 [facility] Comment on above: Performed By: #### C BC #### [facility] [address] [place] [address] Kinjal Sherine EO # 0.2 103/ul Normal 0.0-0.7 [facility] Comment on above: Performed By: #### C BC #### [facility] [address] [place] [address] Kinj[place] Sherine Eosinophils/100 WBC (Bld) 1.8 % Normal 0.9-7.0 [facility] Comment on above: Performed By: #### C BC #### [facility] [address] [place] [address] Kinjal Sherine Erythrocyte distribution width (RBC) [Ratio] 13.7 % Normal 11.0-15.0 [facility] Comment on above: Performed By: #### C BC #### [facility] [address] [place] [address] Kinjal Sherine Hematocrit (Bld) [Volume fraction] 38.2 % Normal 36.0-48.0 [facility] Comment on above: Performed By: #### C BC #### [facility] [address] [id number] [place] Sherine Hemoglobin (Bld) [Mass/Vol] 11.9 g/dL Critically low 12.0-16.0 [facility] Comment on above: Performed By: #### C BC #### [facility] [address] [place] [address] Kinjal Sherine IG # 0.03 10e3/ul Normal 0.00-0.03 [facility] Comment on above: Performed By: #### C BC #### [facility] [address] [place] [address] Kinjal Sherine IG % 0.3 % Normal 0.0-0.5 [facility] Comment on above: Performed By: #### C BC #### [facility] [address] [place] [address] Kinjal Sherine LYMPH # 1.8 103/ul Normal 1.2-3.8 [facility] Comment on above: Performed By: #### C BC #### [facility] [address] [place] [address] Kinjal Sherine Lymphocytes/100 WBC (Bld) 17.4 % Critically low 20.5-60.0 [facility] Comment on above: Performed By: #### C BC #### [facility] [address] [place] [address] Kinjal Sherine MANUAL DIFF REQ NO Normal [facility] Comment on above: Performed By: #### C BC #### [facility] [address] [place] [address] Kinjal Sherine MCH (RBC) [Entitic mass] 27.0 pg Normal 26.7-34.0 [facility] Comment on above: Performed By: #### C BC #### [facility] [address] [place] [address] Kinjalroverto Mckeonen MCHC (RBC) [Mass/Vol] 31.2 g/dL Normal 29.9-35.2 [facility] Comment on above: Performed By: #### C BC #### [facility] [address] [place] [address] Kinjal Sherine MCV (RBC) [Entitic vol] 86.8 fL Normal 81.0-99.0 [facility] Comment on above: Performed By: #### C BC #### [facility] [address] [place] [address] Kinjal Sherine MONO # 0.3 103/ul Normal 0.3-0.8 [facility] Comment on above: Performed By: #### C BC #### [facility] [address] [place] [address] Kinjal Basurto Monocytes/100 WBC (Bld) 3.2 % Normal 1.7-12.0 [facility] Comment on above: Performed By: #### C BC #### [facility] [address] [place] [address] Kinjal Basurto NEUT # 7.8 103/ul Critically high 1.4-6.5 [facility] Comment on above: Performed By: #### C BC #### [facility] [address] [place] [address] Kinjal Basurto Neutrophils/100 WBC (Bld) 76.8 % Critically high 43.0-75.0 [facility] Comment on above: Performed By: #### C BC #### [facility] [address] [place] [address] Kinjal Basurto Platelet mean volume (Bld) [Entitic vol] 9.1 fL Critically low 9.5-13.5 [facility] Comment on above: Performed By: #### C BC #### [facility] [address] [place], [place] [address] Kinjalroverto Mckeonen PLT 350 103/ul Normal 150-450 [facility] Comment on above: Performed By: #### C BC #### [facility] [address] [place] [address] Kinjal Sherine RBC 4.40 106/ul Normal 4.20-5.40 [facility] Comment on above: Performed By: #### C BC #### [facility] [address] [place], [place] [address] Kinjal Sherine WBC 10.1 103/ul Normal 4.0-11.0 [facility] Comment on above: Performed By: #### C BC #### [facility] [address] [place], [place] [address] Kinjal Sherine CT CHEST W CONon 06-10-2020 [...] ARELI RIVERA Date: 2020-06-10 03:43 Normal [facility] CT CSPINE WO CONon CT [...] Haylie VILLAR Date: 2020-06-10 01:09 Normal [facility] CT HEAD WO CONon 06-10-2020 [...] ARELI RIVERA Date: 2020-06-10 01:01 Normal [facility] DRUG SCREEN RAPID (URINE)on 06-10-2020 AMP Negative Normal NEGATIVE [facility] Comment on above: Performed By: #### E RUR, DRUGRPD #### [facility] [address] [place] [address] Kinjal Sherine BAR Negative Normal NEGATIVE [facility] Comment on above: Performed By: #### E RUR, DRUGRPD #### [facility] [address] [place] [address] Kinjal Sherine BUP Negative Normal NEGATIVE [facility] Comment on above: Performed By: #### E RUR, DRUGRPD #### [facility] [address] [place] [address] Kinjal Sherine BZO Negative Normal NEGATIVE [facility] Comment on above: Performed By: #### E RUR, DRUGRPD #### [facility] [address] [place] [address] Kinjal Sherine CURTIS Negative Normal NEGATIVE [facility] Comment on above: Performed By: #### E RUR, DRUGRPD #### [facility] [address] [place] [address] Kinjal Sherine CUT-OFFS SEE BELOW Normal [facility] Comment on above: Result Comment: [...] Performed By: #### Mitchell RUR DRUGRPD #### [facility] [address] [place] [address] Kinjal Sherine DRUG CUT HEADER DRUG CLASS TEST SYST EM CUT-OFF CONCENTRATIONS ARE FOLLOWS: Normal [facility] Comment on above: Performed By: #### E RUR, DRUGRPD #### [facility] [address] [place] [address] Kinjal Sherine mAMP Negative Normal NEGATIVE [facility] Comment on above: Performed By: #### Mitchell RUR, DRUGRPD #### [facility] [address] [place] [address] Kinjal Sherine MTD Negative Normal NEGATIVE [facility] Comment on above: Performed By: #### Mitchell RUR DRUGRPD #### [facility] [address] [place] [address] Kinjal Sherine OPI Positive Abnormal NEGATIVE [facility] Comment on above: Performed By: #### Mitchell RUR, DRUGRPD #### [facility] [address] [place] [address] Kinjal Sherine OXY Negative Normal NEGATIVE [facility] Comment on above: Performed By: #### Mitchell RUR, DRUGRPD #### [facility] [address] [place] [address] Kinjal Sherine PCP Negative Normal NEGATIVE [facility] Comment on above: Performed By: #### E RUR, DRUGRPD #### [facility] [address] [place] [address] Kinjal Sherine PPX Negative Normal NEGATIVE [facility] Comment on above: Performed By: #### Mitchell RUR, DRUGRPD #### [facility] [address] [place] [address] Kinjal Sherine TCA Negative Normal NEGATIVE [facility] Comment on above: Performed By: #### E RUR, DRUGRPD #### [facility] [address] [place] [address] Kinjal Sherine THC Negative Normal NEGATIVE [facility] Comment on above: Performed By: #### E RUR, DRUGRPD #### [facility] [address] [place] [address] Kinjal Basurto ER URINE PROFILEon 1 Bilirubin Ql (U) Negative Normal NEGATIVE [facility] Comment on above: Performed By: #### E RUR, DRUGRPD #### [facility] [address] [place] [address] Kinjal Sherine Clarity (U) CLEAR Normal CLEAR [facility] Comment on above: Performed By: #### E RUR, DRUGRPD #### [facility] [address] [place] [address] Kinjal Sherine Color (U) LT. YELLOW Normal YELLOW [facility] Comment on above: Performed By: #### E RUR, DRUGRPD #### [facility] [address] [place] [address] Kinjal Basurto ERUAHD A micrscopic examination will be performed if indicated. Normal [facility] Comment on above: Performed By: #### E RUR, DRUGRPD #### [facility] [address] [place] [address] Kinjal Sherine Glucose Ql (U) Negative Normal NEGATIVE [facility] Comment on above: Performed By: #### E RUR, DRUGRPD #### [facility] [address] [place] [address] Kinjal Sherine Hemoglobin Ql (U) Negative Normal NEGATIVE [facility] Comment on above: Performed By: #### E RUR, DRUGRPD #### [facility] [address] [place] [address] Kinjal Sherine Ketones Ql (U) Negative Normal NEGATIVE [facility] Comment on above: Performed By: #### E RUR, DRUGRPD #### [facility] [address] [place] [address] Kinjal Sherine LEUKOCYTES Negative Normal NEGATIVE [facility] Comment on above: Performed By: #### E RUR, DRUGRPD #### [facility] [address] [place] [address] Kinjal Basurto Nitrite Ql (U) Negative Normal NEGATIVE [facility] Comment on above: Performed By: #### Mitchell PETERSEN DRUGCARLOS A #### [facility] [address] [place] [address] Kinjal Basurto pH (U) 7.5 [pH] Normal 5-9 [facility] Comment on above: Performed By: #### Mitchell PETERSEN DRUGHARRYD #### [facility] [address] [place] [address] Kinjal Basurto SPEC GRAVITY 1.010 Normal 1.005-<=1.02 5 [facility] Comment on above: Performed By: #### Mitchell PETERSEN DRUGCARLOS A #### [facility] [address] [place] [address] Kinjal Basurto UA PROTEIN Negative Normal NEGATIVE/ TRACE [facility] Comment on above: Performed By: #### Mitchell PETERSEN DRUGCARLOS A #### [facility] [address] [place] [address] Kinjal Basurto UR MICRO IND NOT INDICATED Normal [facility] Comment on above: Performed By: #### Mtichell PETERSEN DRUGCARLOS A #### [facility] [address] [place] [address] Kinjal Basurto Urobilinogen Qn (U) 0.2 {Jazmine'U}/dL Normal 0.2 - 1. 0 [facility] Comment on above: Performed By: #### Mitchell PETERSEN DRUGHARRYD #### [facility] [address] [place] [address] Kinjal Basurto ETHANOL (BLD ALC)on 06-11-19 21 ALC NOTE NOTE: 80 mg/dl is th e legal limit for a blood alcohol level Normal [facility] Comment on above: Performed By: #### E TH ####[facility] [address] [place] 37[address]Kinjal Basurto Ethanol [Mass/Vol] 200 mg/dL Normal [facility] Comment on above: Performed By: #### E TH ####[facility] [address] [place], [place] [address]Gerroverto Basurto PROF 14(COMP METB)on 021 Albumin [Mass/Vol] 3.8 g/dL Normal 3.5-5.0 [facility] Comment on above: Performed By: #### C MP #### [facility] [address] [id number] Kinjal Sherine Albumin/Globulin [Mass ratio] 1.2 {ratio} Normal [facility] Comment on above: Performed By: #### C MP #### [facility] [address] [place], [place] [address] Kinjal Sherine ALP [Catalytic activity/Vol] 54 U/L Normal 38-126 [facility] Comment on above: Performed By: #### C MP #### [facility] [address] [place] [address] Kinjal Sherine ALT [Catalytic activity/Vol] 19 U/L Normal 9-52 [facility] Comment on above: Performed By: #### C MP #### [facility] [address] [address] Kinjal Sherine Anion gap [Moles/Vol] 12.2 mmol/L Normal [facility] Comment on above: Performed By: #### C MP #### [facility] [address] [place] [address] Kinjal Sherine AST [Catalytic activity/Vol] 13 U/L Critically low 14-36 [facility] Comment on above: Performed By: #### C MP #### [facility] [address] [place] [address] Kinjal Sherine Bilirubin [Mass/Vol] 0.3 mg/dL Normal 0.2-1.3 [facility] Comment on above: Performed By: #### C MP #### [facility] [address] [place], [place] [address] Kinjal Sherine Calcium [Mass/Vol] 8.4 mg/dL Normal 8.4-10.2 [facility] Comment on above: Performed By: #### C MP #### [facility] [address] [place], [place] [address] Kinjal Sherine Chloride [Moles/Vol] 109 mmol/L Critically high 98-107 [facility] Comment on above: Performed By: #### C MP #### [facility] [address] [phone] Kinjal Sherine CO2 [Moles/Vol] 27.5 mmol/L Normal 22.0-30.0 [facility] Comment on above: Performed By: #### C MP #### [facility] [address] [place], [place] [address] Kinjal Sherine Creatinine [Mass/Vol] 0.73 mg/dL Normal 0.52-1.04 [facility] Comment on above: Performed By: #### C MP #### [facility] [address] [place], [place] [address] Kinjal Sherine EGFR-AF HONG KONGER >60 Normal >=60 [facility] Comment on above: Performed By: #### C MP #### [facility] [address] [place] [address] Kinjal Sherine EGFR-NON AF HONG KONGER >60 Normal >=60 [facility] Comment on above: Performed By: #### C MP #### [facility] [address] [place] [address] Kinjal Sherine Globulin (S) [Mass/Vol] 3.3 g/dL Normal [facility] Comment on above: Performed By: #### C MP #### [facility] [address] [place] [address] Kinjal Sherine Glucose [Mass/Vol] 85 mg/dL Normal 74-106 [facility] Comment on above: Performed By: #### C MP #### [facility] [address] [place] [address] Kinjal Sherine Potassium [Moles/Vol] 3.7 mmol/L Normal 3.4-5.0 [facility] Comment on above: Performed By: #### C MP #### [facility] [address] [place], [place] [address] Kinjal Sherine Protein [Mass/Vol] 7.1 g/dL Normal 6.1-8.2 [facility] Comment on above: Performed By: #### C MP #### [facility] [address] [place], [place] [address] Kinjal Basurto Sodium [Moles/Vol] 145 mmol/L Normal 137-145 [facility] Comment on above: Performed By: #### C MP #### [facility] [address] [place], [place] [address] Kinjal Basurto Urea nitrogen [Mass/Vol] 9.0 mg/dL Normal 7.0-17.0 [facility] Comment on above: Performed By: #### C MP #### [facility] [address] [address] Kinjal Basurto Urea nitrogen/Creatinine [Mass ratio] 12.3 mg/mg Normal [facility] Comment on above: Performed By: #### C MP #### [facility] [address] [address] Kinjal Basurto Rapid Covid-19 PCR (CVDRPD)o n 06-10-2020 SARS-CoV-2 (COVID-19) RNA AIDEE+probe Ql (Unsp spec) Not detected Normal NOT DETECTED [facility] Comment on above: Result Comment: This test is not yet approved or cleared by the [place] Food and Drug Administration (FDA). This test was developed by [employer], [place], [place]. The performance characteristics of this test were validated by [facility]. The results are not intended to be used as the sole means for clinical diagnosis or patient management decisions. [facility] is authorized under Clinical Laboratory Improvement Amendments (CLIA) to perform high- complexity testing. When diagnostic testing is negative, the possibility of a false negative should be considered in the context of a patient's recent exposures and the presence of clinical signs and symptoms consistent with SARS-CoV-2. Performed By: #### C VDRPD ####[facility] [address] [place], [place] [address]Jfqbng Karen XR CLAVICLE LTon 06-10-2020 XR CLAVICLE [...] VILLAR Date: 2020-06-10 01:50 Normal [facility] XR SHOULDER LT 2V or >on [...] ARMSTRONG Date: 2020-06-10 01:45 Normal [facility] Cult, Bloodon 2018 Cult, Blood Specimen Description .BLOOD Special Requests RT HAND Culture NO GROWTH 6 DAYS Report Status FINAL 2018 [facility] Comment on above: Performed By: #### B CUL2 ####[facility] [place], [place] [id number] lab Director: Reed Mckeon MD [facility],Bloodon 2018 Cult,Blood Specimen Description .BLOOD Special Requests L ARM 10CC Culture NO GROWTH 6 DAYS Report Status FINAL 2018 [facility] Comment on above: Performed By: #### B C ####[facility] [place], [place] [address] lab Director: Reed Mckeon MD Basic Metab w/rfx MGon 04-16 (cont.) [facility] Comment on above: Result Comment: Aver age GFR for 20-29 years old: 116 mL/min/1.73sq m Chronic Kidney Disease: <60 mL/min/1.73sq m Kidney failure: <15 mL/min/1.73sq m eGFR calculated using average adult body mass. Additional eGFR calculator available at: http://www.[employer].Feedbooks/multiple_crcl_2012.htm Performed By: #### C BC, BMPX ####[facility] [address] [place] [address] Lab Director: Reed Mckeon MD Anion gap molar conc 13 mmol/L Normal 9-17 [facility] Comment on above: Performed By: #### C BC, BMPX ####[facility] [address] [place], [place] [id number])[phone] Director: Reed Mckeon MD Calcium mass conc 8.7 mg/dL Normal 8.6-10.4 [facility] Comment on above: Performed By: #### C BC, BMPX ####[facility] [address] [place], [place] [id number])[phone] Director: Reed Mckeon MD Chloride molar conc 110 mmol/L High 98-107 [facility] Comment on above: Performed By: #### C BC, BMPX ####[facility] [address] [place], [place] [phone] Director: Reed Mckeon MD CO2 molar conc 18 mmol/L Low 20-31 [facility] Comment on above: Performed By: #### C BC, BMPX ####[facility] S[address]44[address] [place], [place] [phone] Director: Reed Mckeon MD Creatinine mass conc 0.49 mg/dL Low 0.50-0.90 [facility] Comment on above: Performed By: #### C BC, BMPX ####[facility] [address] [place], [place] [phone])[phone] Director: Reed Mckeon MD GFR, Amer >60 Normal >60 [facility] Comment on above: Performed By: #### C BC, BMPX ####[facility] [address] [place] [address] Lab Director: Reed Mckeon MD GFR,non Amer >60 Normal >60 [facility] Comment on above: Performed By: #### C BC, BMPX ####[facility] [address] [place], [place] [phone])[phone] Director: Reed Mckeon MD Glucose mass conc 74 mg/dL Normal 70-99 [facility] Comment on above: Performed By: #### C BC, BMPX ####[facility] [address]16[address] [place] [address] Lab Director: Reed Mckeon MD Potassium molar conc 4.2 mmol/L Normal 3.7-5.3 [facility] Comment on above: Performed By: #### C BC, BMPX ####[facility] V[address]j06[address] [place], [place] [phone])[phone] Director: Reed Mckeon MD Sodium molar conc 141 mmol/L Normal 135-144 [facility] Comment on above: Performed By: #### C BC, BMPX ####[facility] [address] [place], [place] [phone] Director: Reed Mckeon MD Urea nitrogen mass conc 6 mg/dL Normal 6-20 [facility] Comment on above: Performed By: #### C BC, BMPX ####[facility] [address] [place], [place] [phone])[phone] Director: Reed Mckeon MD BUN/CRE Ratio NOT REPORTED Normal 9-20 [facility] Comment on above: Performed By: #### C BC, BMPX ####[facility] [address] [place], [place] [phone] Director: Reed Mckeon MD Staging: NOT REPORTED Normal [facility] Comment on above: Performed By: #### C BC, BMPX ####[facility] [address] [place] [address] lab Director: Reed Mckeon MD CBCon 04-16-2018 Erythrocyte distribution width Ratio (RBC) 12.9 % Normal 11.8-14.4 [facility] Comment on above: Performed By: #### C BC, BMPX ####[facility] [address] [place] [address] lab Director: Reed Mckeon MD Hematocrit Volume Fraction (Bld) 33.9 % Low 36.3-47.1 [facility] Comment on above: Performed By: #### C BC, BMPX ####[facility] [address] [place] [address] lab Director: Reed Mckeon MD Hemoglobin mass conc (Bld) 10.6 g/dL Low 11.9-15.1 [facility] Comment on above: Performed By: #### C BC, BMPX ####[facility] M[address] [place], [place] [phone])[phone] Director: Reed Mckeon MD MCH Entitic mass (RBC) 28.3 pg Normal 25.2-33.5 [facility] Comment on above: Performed By: #### C BC, BMPX ####[facility] [address] [place] [address] Lab Director: Reed Mckeon MD MCHC mass conc (RBC) 31.3 g/dL Normal 28.4-34.8 [facility] Comment on above: Performed By: #### C BC, BMPX ####[facility] [address]es[address]24[address] [place], [place] [phone])[phone] Director: Reed Mckeon MD MCV Entitic volume (RBC) 90.6 fL Normal 82.6-102.9 [facility] Comment on above: Performed By: #### C BC, BMPX ####[facility] [address] [place] [address] Lab Director: Reed Mckeon MD NRBC Automated 0.0 per 100 WBC Normal 0.0 [facility] Comment on above: Performed By: #### C BC, BMPX ####[facility] Ep[address]27[address] [place] [address] Lab Director: Reed Mckeon MD Platelet mean volume Entitic volume (Bld) 9.8 fL Normal 8.1-13.5 [facility] Comment on above: Performed By: #### C BC, BMPX ####[facility] Q[address]ql7517 [place] [address] Lab Director: Reed Mckeon MD Platelets #/vol (Bld) 257 10*3/uL Normal 138-453 [facility] Comment on above: Performed By: #### C SARWAT, BMPX ####[facility] [address] [place] [address] [phone] Director: Reed Mckeon MD RBC #/vol (Bld) 3.74 10*6/uL Low 3.95-5.11 [facility] Comment on above: Performed By: #### C SARWAT, BMPX ####[facility] [address] [place] [address] Lab Director: Reed Mckeon MD WBC #/vol (Bld) 5.8 10*3/uL Normal 3.5-11.3 [facility] Comment on above: Performed By: #### C BC, BMPX ####[facility] [address] [place] [address] [phone] Director: Reed Mckeon MD Cult,Respiratoryon 9 Cult,Respiratory Specimen Description .EXPECTORATED SPUTUM Special Requests NOT REPORTED Direct Exam >10 EPITHELIAL CELLS/LPF: SPECIMEN IS CONTAMINATED WITH ORAL PHARYNGEAL YOGESH AND IS UNACCEPTABLE FOR BACTERIAL CULTURE. PLEASE SUBMIT ANOTHER SPECIMEN. EVERETTE Mathews NOTIFIED Culture NOT REPORTED Report Status FINAL 04/16/2018 Normal [facility] Comment on above: Performed By: #### R ESPC ####[address] [place] [address] Lab Director: Reed Mckeon MD Troponinon 04-16-2018 Troponin I.cardiac mass conc ng/mL Normal 0-14 [facility] Comment on above: Result Comment: High Sensitivity Troponin values cannot be compared with other Troponin methodologies. Patients with high levels of Biotin oral intake (i.e >5mg/day) may have falsely decreased Troponin levels. Samples collected within 8 hours of biotin intake may require additional information for diagnosis. Performed By: #### T ROPI ####[facility] [place] [address] lab Director: Reed Mckeon MD Gram Stainon 04-15-2018 Microscopic observation Gram stain Nom (Unsp spec) Specimen Description .EXPECTORATED SPUTUM Special Requests NOT REPORTED Direct Exam DUPLICATE ORDER Report Status FINAL 04/15/2018 Normal [facility] Comment on above: Performed By: #### P PPVS #### [facility] [address] [place] [address] HCG Screen, Bloodon 04-16-19 19 HCG Qn Negative Normal NEG [facility] Comment on above: Result Comment: Spec imens with hCG levels near the threshold of the test (25 mIU/mL) may give a negative or indeterminate result. In such cases, another test should be performed with a new specimen in 48-72 hours. If early is suspected clinically in this setting, correlation with quantitative serum b-hCG level is suggested. [facility] has confirmed the use of plasma for this test. This has not been cleared or approved by the U.S. Food and Drug Administration. The FDA has determined that such clearance is not necessary. Performed By: #### P PPVS #### [facility] [address] [place], [place] [id number] Legionella Ag, Uron 04-16-19 19 Legionella Ag, [...] of this test. Report Status FINAL 04/15/2018 [facility] Comment on above: Performed By: #### U LAG ####[address] [phone] Director: Reed Mckeon MD Rust Viral Panelon 9 Adenovirus Not Detected Normal [facility] Comment on above: Performed By: #### P PPVS #### [address] [address] Bordetella pertussis Not Detected Normal [facility] Comment on above: Performed By: #### P PPVS #### [address] [address] Chlamyd.pneumoniae Not Detected Normal [facility] Comment on above: Performed By: #### P PPVS #### [address] [address] Coronavirus 229E Not Detected Normal [facility] Comment on above: Performed By: #### P PPVS #### [address] [address] Coronavirus HKU1 Not Detected Normal [facility] Comment on above: Performed By: #### P PPVS #### [address] [address] Coronavirus NL63 Not Detected Normal [facility] Comment on above: Performed By: #### P PPVS #### [address] [address] Coronavirus OC43 Not Detected Normal [facility] Comment on above: Performed By: #### P PPVS #### [address] [address] Human Metapneumo Not Detected Normal [facility] Comment on above: Performed By: #### P PPVS #### [address] [address] Influenza A Not Detected Normal [facility] Comment on above: Performed By: #### P PPVS #### [address] [address] Influenza B Not Detected Normal [facility] Comment on above: Performed By: #### P PPVS #### [address] [address] Mycoplas.pneumoniae Not Detected Normal [facility] Comment on above: Result Comment: Perf ormed by multiplexed nucleic acid assay. Performed By: #### P PPVS #### [address] [address] Parainfluenza 1 Not Detected Normal [facility] Comment on above: Performed By: #### P PPVS #### [address] [address] Parainfluenza 2 Not Detected Normal [facility] Comment on above: Performed By: #### P PPVS #### [address] [address] Parainfluenza 3 Not Detected Normal [facility] Comment on above: Performed By: #### P PPVS #### [facility] [employer] [address] [place] [address] Parainfluenza 4 Not Detected Normal [facility] Comment on above: Performed By: #### P PPVS #### [address] [address] Resp Syncytial Virus Not Detected Normal [facility] Comment on above: Performed By: #### P PPVS #### [address] [address] Rhino/Enterovirus Not Detected Normal [facility] Comment on above: Performed By: #### P PPVS #### [address] [address] Influenza A H1 NOT REPORTED Normal [facility] Comment on above: Performed By: #### P PPVS #### [address] [address] Influenza A H1-2009 NOT REPORTED Normal [facility] Comment on above: Performed By: #### P PPVS #### [address] [address] Influenza A H3 NOT REPORTED Normal [facility] Comment on above: Performed By: #### P PPVS #### [address] [address] Source: .NASOPHARYNGEAL SWAB Normal [facility] Comment on above: Performed By: #### P PPVS #### [address] [address] Strep pneum Ag,CSF/Uron 03-0 Strep pneum Ag,CSF/Ur Specimen Descripti on .CLEAN CATCH URINE Special Requests NOT REPORTED Direct Exam NEGATIVE: Strep pneumoniae antigen not detected Report Status FINAL 04/15/2018 Normal [facility] Comment on above: Performed By: #### S PAG ####[address] [address] Lab Director: Reed Mckeon MD Troponinon 04-15-2018 Troponin I.cardiac mass conc NOT REPORTED Normal <0.03 [facility] Comment on above: Performed By: #### T ROPI ####[facility] [address] [place], [place] [id number] Lab Director: Reed Mckeon MD Troponin I.cardiac mass conc ng/mL Normal 0-14 [facility] Comment on above: Result Comment: High Sensitivity Troponin values cannot be compared with other Troponin methodologies. Patients with high levels of Biotin oral intake (i.e >5mg/day) may have falsely decreased Troponin levels. Samples collected within 8 hours of biotin intake may require additional information for diagnosis. Performed By: #### P PPVS #### [facility] [employer] [address] [place], [place] [phone] Troponin I.cardiac mass conc NOT REPORTED Normal <0.03 [facility] Comment on above: Performed By: #### P PPVS #### [facility] [address] [place], [place] [phone] XR CHEST PORTABLEon 04-16-19 XR CHEST PORTABLE EXAMINATION: SINGLE XRAY VIEW OF THE CHEST 04/15/2018 3:19 pm COMPARISON: 04/02/2018 HISTORY: ORDERING SYSTEM PROVIDED HISTORY: transferred from outlying facility due to PNA. POD#3 s/p lap sleeve gastrectomy. TECHNOLOGIST PROVIDED HISTORY: transferred [facility] due to PNA. POD#3 s/p lap sleeve [...] Brando Agustin MD 04/15/18 Final result Normal [facility] FL ESOPHAGRAMon 04-14-2018 FL ESOPHAGRAM EXAMINATION: SINGLE [...] persistent dysphagia and burning sensation. FINDINGS: Fluoroscopic qlikview developer images were obtained of the upper abdomen [...] Steve Topete MD 04/14/18 Final result Normal [facility] Basic Metabolic Profon 04-13 (cont.) Normal [facility] Comment on above: Result Comment: Aver age GFR for 20-29 years old: 116 mL/min/1.73sq m Chronic Kidney Disease: <60 mL/min/1.73sq m Kidney failure: <15 mL/min/1.73sq m eGFR calculated using average adult body mass. Additional eGFR calculator available at: http://www.[employer].com/multiple_crcl_2012.htm Performed By: #### P PPVS #### [facility] [address] [place] [address] Anion gap molar conc 11 mmol/L Normal 9-17 [facility] Comment on above: Performed By: #### P PPVS #### [facility] [address] [place] [address] Calcium mass conc 8.8 mg/dL Normal 8.6-10.4 [facility] Comment on above: Performed By: #### P PPVS #### [address] [address] Chloride molar conc 104 mmol/L Normal 98-107 [facility] Comment on above: Performed By: #### P PPVS #### [address] [address] CO2 molar conc 24 mmol/L Normal 20-31 [facility] Comment on above: Performed By: #### P PPVS #### [facility] [employer] [address] [place] [address] Creatinine mass conc 0.68 mg/dL Normal 0.50-0.90 [facility] Comment on above: Performed By: #### P PPVS #### [address] [address] GFR, Amer >60 Normal >60 [facility] Comment on above: Performed By: #### P PPVS #### [facility] [employer] [address] [place] [address] GFR,non Amer >60 Normal >60 [facility] Comment on above: Performed By: #### P PPVS #### [address] [address] Glucose mass conc 90 mg/dL Normal 70-99 [facility] Comment on above: Performed By: #### P PPVS #### [address] [address] Potassium molar conc 4.4 mmol/L Normal 3.7-5.3 [facility] Comment on above: Performed By: #### P PPVS #### [address] [address] Sodium molar conc 139 mmol/L Normal 135-144 [facility] Comment on above: Performed By: #### P PPVS #### [address] [address] Urea nitrogen mass conc 5 mg/dL Low 6-20 [facility] Comment on above: Performed By: #### P PPVS #### [address] [address] BUN/CRE Ratio NOT REPORTED Normal 9-20 [facility] Comment on above: Performed By: #### P PPVS #### [address] [address] Staging: NOT REPORTED Normal [facility] Comment on above: Performed By: #### P PPVS #### [address] [address] CBCon 04-13-2018 Erythrocyte distribution width Ratio (RBC) 12.9 % Normal 11.8-14.4 [facility] Comment on above: Performed By: #### P PPVS #### [address] [address] Hematocrit Volume Fraction (Bld) 36.8 % Normal 36.3-47.1 [facility] Comment on above: Performed By: #### P PPVS #### [address] [address] Hemoglobin mass conc (Bld) 11.7 g/dL Low 11.9-15.1 [facility] Comment on above: Performed By: #### P PPVS #### [address] [address] MCH Entitic mass (RBC) 28.3 pg Normal 25.2-33.5 [facility] Comment on above: Performed By: #### P PPVS #### [address] [address] MCHC mass conc (RBC) 31.8 g/dL Normal 28.4-34.8 [facility] Comment on above: Performed By: #### P PPVS #### [address] [address] MCV Entitic volume (RBC) 88.9 fL Normal 82.6-102.9 [facility] Comment on above: Performed By: #### P PPVS #### [address] [address] NRBC Automated 0.0 per 100 WBC Normal 0.0 [facility] Comment on above: Performed By: #### P PPVS #### [address] [address] Platelet mean volume Entitic volume (Bld) 10.1 fL Normal 8.1-13.5 [facility] Comment on above: Performed By: #### P PPVS #### [address] [address] Platelets #/vol (Bld) 306 10*3/uL Normal 138-453 [facility] Comment on above: Performed By: #### P PPVS #### [address] [address] RBC #/vol (Bld) 4.14 10*6/uL Normal 3.95-5.11 [facility] Comment on above: Performed By: #### P PPVS #### [address] [address] WBC #/vol (Bld) 8.1 10*3/uL Normal 3.5-11.3 [facility] Comment on above: Performed By: #### P PPVS #### [address] [address] [place] ESOPHAGRAMon 03-05-2019 FL ESOPHAGRAM EXAMINATION: SINGLE [...] Jordan Mejia MD 04/13/18 Final result Normal [facility] [facility] Basic Metabolic Profon 04-12 (cont.) Normal [facility] Comment on above: Result Comment: Aver age GFR for 20-29 years old: 116 mL/min/1.73sq m Chronic Kidney Disease: <60 mL/min/1.73sq m Kidney failure: <15 mL/min/1.73sq m eGFR calculated using average adult body mass. Additional eGFR calculator available at: http://www.[employer].Feedbooks/multiple_crcl_2012.htm Performed By: #### C SARWAT, BMP #### [facility] [address] [place] [address] [phone] Vice President Network Development: Reed Mckeon MD Anion gap molar conc 16 mmol/L Normal 9-17 [facility] Comment on above: Performed By: #### C SARWAT, BMP #### [facility] [address] [place], [place] [phone] Vice President Network Development: eRed Mckeon MD Calcium mass conc 8.9 mg/dL Normal 8.6-10.4 [facility] Comment on above: Performed By: #### C BC, BMP #### [facility] [address] [place] [address] [phone] Vice President Network Development: Reed Mckeon MD Chloride molar conc 108 mmol/L High 98-107 [facility] Comment on above: Performed By: #### C BC, BMP #### [address] [address] Vice President Network Development: Reed Mckeon MD CO2 molar conc 19 mmol/L Low 20-31 [facility] Comment on above: Performed By: #### C BC, BMP #### [facility] [address] [place] [address] Vice President Network Development: Reed Mckeon MD Creatinine mass conc 0.62 mg/dL Normal 0.50-0.90 [facility] Comment on above: Performed By: #### C BC, BMP #### [address] [address] Vice President Network Development: Reed Mckeon MD GFR, Amer >60 Normal >60 [facility] Comment on above: Performed By: #### C BC, BMP #### [address] [address] Vice President Network Development: Reed Mckeon MD GFR,non Amer >60 Normal >60 [facility] Comment on above: Performed By: #### C BC, BMP #### [address] [address] [employer] President Network Development: Reed Mckeon MD Glucose mass conc 124 mg/dL High 70-99 [facility] Comment on above: Performed By: #### C BC, BMP #### [address] [address] Vice President Network Development: Reed Mckeon MD Potassium molar conc 4.2 mmol/L Normal 3.7-5.3 [facility] Comment on above: Performed By: #### C BC, BMP #### [facility] [address] [place] [address] Vice President Network Development: Reed Mckeon MD Sodium molar conc 143 mmol/L Normal 135-144 [facility] Comment on above: Performed By: #### C BC, BMP #### [facility] [address] [place] [address] Vice President Network Development: Reed Mckeon MD Urea nitrogen mass conc 8 mg/dL Normal 6-20 [facility] Comment on above: Performed By: #### C BC, BMP #### [facility] [address] [place] [address] Vice President Network Development: Reed Mckeon MD BUN/CRE Ratio NOT REPORTED Normal - [facility] Comment on above: Performed By: #### C BC, BMP #### [address] [address] Vice President Network Development: Reed Mckeon MD Staging: NOT REPORTED Normal [facility] Comment on above: Performed By: #### C BC, BMP #### [address] [address] Vice President Network Development: Reed Mckeon MD CBCon 04-12-2018 Erythrocyte distribution width Ratio (RBC) 12.6 % Normal 11.8-14.4 [facility] Comment on above: Performed By: #### C BC, BMP #### [address] [address] Vice President Network Development: Reed Mckeon MD Hematocrit Volume Fraction (Bld) 44.2 % Normal 36.3-47.1 [facility] Comment on above: Performed By: #### C BC, BMP #### [address] [address] Vice President Network Development: Reed Mckeon MD Hemoglobin mass conc (Bld) 13.8 g/dL Normal 11.9-15.1 [facility] Comment on above: Performed By: #### C BC, BMP #### [address] [address] Vice President Network Development: Reed Mckeon MD MCH Entitic mass (RBC) 28.4 pg Normal 25.2-33.5 [facility] Comment on above: Performed By: #### C BC, BMP #### [address] [address] Vice President Network Development: Reed Mckeon MD MCHC mass conc (RBC) 31.2 g/dL Normal 28.4-34.8 [facility] Comment on above: Performed By: #### C BC, BMP #### [address] [address] Vice President Network Development: Reed Mckeon MD MCV Entitic volume (RBC) 90.9 fL Normal 82.6-102.9 [facility] Comment on above: Performed By: #### C BC, BMP #### [facility] [address] [place] [address] Vice President Network Development: Reed Mckeon MD NRBC Automated 0.0 per 100 WBC Normal 0.0 [facility] Comment on above: Performed By: #### C BC, BMP #### [facility] [address] [place] [address] Vice President Network Development: Reed Mckeon MD Platelet mean volume Entitic volume (Bld) 10.2 fL Normal 8.1-13.5 [facility] Comment on above: Performed By: #### C BC, BMP #### [facility] [address] [place] [address] Vice President Network Development: Reed Mckeon MD Platelets #/vol (Bld) 299 10*3/uL Normal 138-453 [facility] Comment on above: Performed By: #### C BC, BMP #### [facility] [address] [place] [address] Vice President Network Development: Reed Mckeon MD RBC #/vol (Bld) 4.86 10*6/uL Normal 3.95-5.11 [facility] Comment on above: Performed By: #### C BC, BMP #### [facility] [address] [place] [address] Vice President Network Development: Reed Mckeon MD WBC #/vol (Bld) 18.0 10*3/uL High 3.5-11.3 [facility] Comment on above: Performed By: #### C BC, BMP #### [facility] [address] [place] [address] Vice President Network Development: Reed Mckeon MD Surgical Pathologyon 019 Surgical Pathology (NOTE) [id number] [facility] SAIC CONSULTING PATHOLOGISTS [facility] ANATOMIC PATHOLOGY [address] [place] [id number] SURGICAL PATHOLOGY CONSULTATION Patient Name: [facility] Rec: [id number] Path Number: [id number] Collected: 04/12/2018 Received: 04/12/2018 Reported: 04/13/2018 13:37 [...] with no areas of granularity or masses. Spike [employer] sections 1cs. tm Microscopic Description The gastric mucosa shows intact architecture and no active or chronic inflammation. There is no histological evidence for Helicobacter. There is no intestinal metaplasia or dysplasia. The submucosa and muscularis propria show no histologic abnormality. Normal [facility] Comment on above: Performed By: #### P PPVS #### [facility] [address] [place] [address] [phone] Nicotineon 04-08-2018 [id number] <2 Normal [facility] Comment on above: Performed By: #### C BC, PT, PTT, BMP #### [facility] [place] [address] Vice President Network Development: Reed Mckeon MD #### ANICOT #### [facility] [address] [place] [address] [phone] Vice President Network Development: Eduin Alvarez MD Cotinine <2 Normal [facility] Comment on above: Performed By: #### C BC, PT, PTT, BMP #### [facility] [address] [place] [address] [phone] Vice President Network Development: Reed Mckeon MD #### ANICOT #### [facility] [address] [address] Vice President Network Development: Eduin Alvarez MD Nicotine <2 Normal [facility] Comment on above: Result Comment: (NOT E) [...] positive. Test developed and characteristics determined by [employer]. See Compliance Statement B: [email or web address] Performed by [facility], [address] [place] [id number] [email or web address], Eduin Alvarez MD, Lab. Director Performed By: #### C BC, PT, PTT, BMP #### [address] [address] Vice President Network Development: Reed Mckeon MD #### ANICOT #### [facility] [address] [place] [address] Vice President Network Development: Eduin Alvarez MD APTTon 04-02-2018 aPTT Coag time (Bld) 24.7 s Normal 20.5-30.5 [facility] Comment on above: Performed By: #### C BC, PT, PTT, BMP #### [address] [address] Vice President Network Development: Reed Mckeon MD #### ANICOT #### [facility] [address] [place] [address] Vice President Network Development: Eduin Alvarez MD Basic Metabolic Profon 04-02 (cont.) Normal [facility] Comment on above: Result Comment: Aver age GFR for 20-29 years old: 116 mL/min/1.73sq m Chronic Kidney Disease: <60 mL/min/1.73sq m Kidney failure: <15 mL/min/1.73sq m eGFR calculated using average adult body mass. Additional eGFR calculator available at: http://www.[employer].Feedbooks/multiple_crcl_2012.htm Performed By: #### C BC, PT, PTT, BMP #### [address] [address] Vice President Network Development: Reed Mckeon MD #### ANICOT #### [facility] [address] [place] [address] Vice President Network Development: Eduin Alvarez MD Anion gap molar conc 15 mmol/L Normal 9-17 [facility] Comment on above: Performed By: #### C BC, PT, PTT, BMP #### [facility] [address] [place] [address] Vice President Network Development: Reed Mckeon MD #### ANICOT #### [facility] [address] [place], [place] [id number] Vice President Network Development: Eduin Alvarez MD Calcium mass conc 9.6 mg/dL Normal 8.6-10.4 [facility] Comment on above: Performed By: #### C BC, PT, PTT, BMP #### [address] [address] Vice President Network Development: Reed Mckeon MD #### ANICOT #### [facility]placed [facility] [address] [place], [place] [phone] Vice President Network Development: Eduin Alvarez MD Chloride molar conc 102 mmol/L Normal 98-107 [facility] Comment on above: Performed By: #### C BC, PT, PTT, BMP #### [address] [address] Vice President Network Development: Reed Mckeon MD #### ANICOT #### [facility] [address] [place], [place] [phone] Vice President Network Development: Eduin Alvarez MD CO2 molar conc 23 mmol/L Normal 20-31 [facility] Comment on above: Performed By: #### C BC, PT, PTT, BMP #### [address] [address] Vice President Network Development: Reed Mckeon MD #### ANICOT #### [facility] [address] [place], [place] [phone] Vice President Network Development: Eduin Alvarez MD Creatinine mass conc 0.62 mg/dL Normal 0.50-0.90 [facility] Comment on above: Performed By: #### C BC, PT, PTT, BMP #### [address] [address] Vice President Network Development: Reed Mkceon MD #### ANICOT #### [facility] [address] [place] [address] Vice President Network Development: Eduin Alvarez MD GFR, Amer >60 Normal >60 [facility] Comment on above: Performed By: #### C BC, PT, PTT, BMP #### [address] [address] Vice President Network Development: Reed Mckeon MD #### ANICOT #### [facility] [address] [place] [address] Vice President Network Development: Eduin Alvarez MD GFR,non Amer >60 Normal >60 [facility] Comment on above: Performed By: #### C BC, PT, PTT, BMP #### [address] [address] Vice President Network Development: Reed Mckeon MD #### ANICOT #### [address] [phone] Vice President Network Development: Eduin Alvarez MD Glucose mass conc 86 mg/dL Normal 70-99 [facility] Comment on above: Performed By: #### C BC, PT, PTT, BMP #### [address] [address] Vice President Network Development: Reed Mckeon MD #### ANICOT #### [facility] [address] [place] [address] Vice President Network Development: Eduin Alvarez MD Potassium molar conc 4.2 mmol/L Normal 3.7-5.3 [facility] Comment on above: Performed By: #### C BC, PT, PTT, BMP #### [address] [address] Vice President Network Development: Reed Mckeon MD #### ANICOT #### [facility] [address] [place] [address] Vice President Network Development: Eduin Alvarez MD Sodium molar conc 140 mmol/L Normal 135-144 [facility] Comment on above: Performed By: #### C BC, PT, PTT, BMP #### [address] [address] Vice President Network Development: Reed Mckeon MD #### ANICOT #### [facility] [address] [place], [place] [phone] Vice President Network Development: Eduin Alvarez MD Urea nitrogen mass conc 15 mg/dL Normal 6-20 [facility] Comment on above: Performed By: #### C BC, PT, PTT, BMP #### [address] [phone] Vice President Network Development: Reed Mckeon MD #### ANICOT #### [facility] [address] [place] [address] [phone] Vice President Network Development: Eduin Alvarez MD BUN/CRE Ratio NOT REPORTED Normal 9-20 [facility] Comment on above: Performed By: #### C BC, PT, PTT, BMP #### [address] [phone] Vice President Network Development: Reed Mckeon MD #### ANICOT #### [facility] [address] [place], [place] [id number] Vice President Network Development: Eduin Alvarez MD Staging: NOT REPORTED Normal [facility] Comment on above: Performed By: #### C BC, PT, PTT, BMP #### [address] [address] Vice President Network Development: Reed Mckeon MD #### ANICOT #### [facility] [address] [place], [place] [phone] Vice President Network Development: Eduin Alvarez MD CBCon 04-02-2018 Erythrocyte distribution width Ratio (RBC) 12.0 % Normal 11.8-14.4 [facility] Comment on above: Performed By: #### C BC, PT, PTT, BMP #### [address] [phone] Vice President Network Development: Reed Mckeon MD #### ANICOT #### [facility] [address] [place] [address] Vice President Network Development: Eduin Alvarez MD Hematocrit Volume Fraction (Bld) 41.3 % Normal 36.3-47.1 [facility] Comment on above: Performed By: #### C BC, PT, PTT, BMP #### [address] [phone] Vice President Network Development: Reed Mckeon MD #### ANICOT #### [address] [phone] Vice President Network Development: Eduin Alvarez MD Hemoglobin mass conc (Bld) 13.7 g/dL Normal 11.9-15.1 [facility] Comment on above: Performed By: #### C BC, PT, PTT, BMP #### [address] [phone] Vice President Network Development: Reed Mckeon MD #### ANICOT #### [facility] [address] [place] [address] [phone] Vice President Network Development: Eduin Alvarez MD MCH Entitic mass (RBC) 28.4 pg Normal 25.2-33.5 [facility] Comment on above: Performed By: #### C BC, PT, PTT, BMP #### [address] [phone] Vice President Network Development: Reed Mckeon MD #### ANICOT #### [facility] [address] [place] [address] Vice President Network Development: Eduin Alvarez MD MCHC mass conc (RBC) 33.2 g/dL Normal 28.4-34.8 [facility] Comment on above: Performed By: #### C BC, PT, PTT, BMP #### [address] [phone] Vice President Network Development: Reed Mckeon MD #### ANICOT #### [facility] [address] [place], [place] [phone] Vice President Network Development: Eduin Alvarez MD MCV Entitic volume (RBC) 85.7 fL Normal 82.6-102.9 [facility] Comment on above: Performed By: #### C BC, PT, PTT, BMP #### [address] [phone] Vice President Network Development: Reed Mckeon MD #### ANICOT #### [facility]placed by [facility] [address] [place], [place] [phone] Vice President Network Development: Eduin Alvarez MD NRBC Automated 0.0 per 100 WBC Normal 0.0 [facility] Comment on above: Performed By: #### C BC, PT, PTT, BMP #### [address] [phone] Vice President Network Development: Reed Mckeon MD #### ANICOT #### [facility] [address] [place], [place] [phone] Vice President Network Development: Eduin Alvarez MD Platelet mean volume Entitic volume (Bld) 9.4 fL Normal 8.1-13.5 [facility] Comment on above: Performed By: #### C BC, PT, PTT, BMP #### [address] [phone] Vice President Network Development: Reed Mckeon MD #### ANICOT #### [facility] [address] [place] [address] Vice President Network Development: Eduin Alvarez MD Platelets #/vol (Bld) 392 10*3/uL Normal 138-453 [facility] Comment on above: Performed By: #### C BC, PT, PTT, BMP #### [facility] [address] [place] [address] Vice President Network Development: Reed Mckeon MD #### ANICOT #### [facility] [address] [place] [address] Vice President Network Development: Eduin Alvarez MD RBC #/vol (Bld) 4.82 10*6/uL Normal 3.95-5.11 [facility] Comment on above: Performed By: #### C BC, PT, PTT, BMP #### [facility] [address] [place] [address] Vice President Network Development: Reed Mckeon MD #### ANICOT #### [facility] [address] [place], [place] [id number] Vice President Network Development: Eduin Alvarez MD WBC #/vol (Bld) 10.4 10*3/uL Normal 3.5-11.3 [facility] Comment on above: Performed By: #### C BC, PT, PTT, BMP #### [facility] [address] [place] [address] Vice President Network Development: Reed Mckeon MD #### ANICOT #### [facility] [address] [place] [address] Vice President Network Development: Eduin Alvarez MD PTon 04-02-2018 INR Coag RelTime (PPP) 1.0 {INR} Normal [facility] Comment on above: Result Comment: Therapeutic Range: Moderate Anticoagulant Intensity: INR = 2.0-3.0 High Anticoagulant Intensity: INR = 2.5-3.5 Performed By: #### C BC, PT, PTT, BMP #### [facility] [address] [place] [address] Vice President Network Development: Reed Mckeon MD #### ANICOT #### [facility] [address] [place] [address] Vice President Network Development: Eduin Alvarez MD Prothrombin time (PT) Coag time (PPP) 10.3 s Normal 9.0-12.0 [facility] Comment on above: Performed By: #### C BC, PT, PTT, BMP #### [facility] [address] [place] [address] Vice President Network Development: Reed Mckeon MD #### ANICOT #### [facility] [address] [place] [address] Vice President Network Development: Eduin Alvarez MD XR CHEST (2 VW)on [...] Mijares Jr., DO 04/02/18 Final result Normal [facility] H. pylori Detectionon 2017 H. pylori Detection Specimen Description .TISSUE, STOMACH BIOPSY Special Requests LOT [id number] EXP FEB 2018 Placement Coordinator on this test is within expected limits. Direct Exam NEGATIVE Report Status FINAL 12/05/2017 Normal [facility] Comment on above: Performed By: #### H GENET #### [facility] [address] [place] [address] Surgical Pathologyon 018 Surgical Pathology (NOTE) [id number] [facility] SAIC CONSULTING PATHOLOGISTS [facility] ANATOMIC PATHOLOGY [address] [place] [phone] SURGICAL PATHOLOGY CONSULTATION Patient Name: ANTO[facility] Rec: [id number] Path Number: [id number] Collected: 12/04/2017 Received: 12/04/2017 Reported: 12/07/2017 12:25 [...] tm Microscopic Description Microscopic examination performed. Normal [facility] Comment on above: Performed By: #### P PPVS #### [facility] [address] [place], [place] [id number] Vital Signs Date Time Vital Sign Value Performing Clinician Tahira luz 05-05-2023 15:13-0400 Body mass index (BMI) [Ratio] 29.32 kg/m2 Nieves Velasquez MD Work Phone: [facility] 05-05-2023 15:13-0400 Body weight 79.92 kg Nieves Velasquez MD Work Phone: [facility] 05-05-2023 15:13-0400 Diastolic blood pressure 84 mm[Hg] Nieves Velasquez MD Work Phone: [facility] 05-05-2023 15:13-0400 Systolic blood pressure 126 mm[Hg] Nieves Velasquez MD Work Phone: [facility] 11-30-2022 07:30-0400 Body temperature 97.9 [degF] PHYSICIAN NO [facility] 11-30-2022 07:30-0400 Diastolic blood pressure 104 mm[Hg] PHYSICIAN NO [facility] 11-30-2022 07:30-0400 Heart rate 68 /min PHYSICIAN NO [facility] 11-30-2022 07:30-0400 Respiratory rate 18 /min PHYSICIAN NO [facility] 11-30-2022 07:30-0400 SaO2% (BldA) [Mass fraction] 99 % PHYSICIAN NO [facility] 11-30-2022 07:30-0400 Systolic blood pressure 155 mm[Hg] PHYSICIAN NO [facility] 11-28-2022 14:23-0400 Body height 165.1 cm PHYSICIAN NO [facility] 11-27-2022 16:19-0400 Body weight 85.72 kg PHYSICIAN NO [facility] 11-27-2022 14:57-0400 Diastolic blood pressure 90 mm[Hg] PHYSICIAN NO [facility] 11-27-2022 14:57-0400 Heart rate 86 /min PHYSICIAN NO [facility] 11-27-2022 14:57-0400 Respiratory rate 18 /min PHYSICIAN NO [facility] 11-27-2022 14:57-0400 SaO2% (BldA) [Mass fraction] 98 % PHYSICIAN NO [facility] 11-27-2022 14:57-0400 Systolic blood pressure 142 mm[Hg] PHYSICIAN NO [facility] 11-27-2022 09:40-0400 Body height 165.1 cm PHYSICIAN NO [facility] 11-27-2022 09:40-0400 Body temperature 98.5 [degF] PHYSICIAN NO [facility] 11-27-2022 09:40-0400 Body weight 86.5 kg PHYSICIAN NO [facility] 05-13-2022 12:00-0400 Body temperature 98 [degF] PHYSICIAN NO [facility] 05-13-2022 12:00-0400 Diastolic blood pressure 79 mm[Hg] PHYSICIAN NO [facility] 05-13-2022 12:00-0400 Heart rate 102 /min PHYSICIAN NO [facility] 05-13-2022 12:00-0400 Respiratory rate 18 /min PHYSICIAN NO [facility] 05-13-2022 12:00-0400 SaO2% (BldA) [Mass fraction] 94 % PHYSICIAN NO [facility] 05-13-2022 12:00-0400 Systolic blood pressure 113 mm[Hg] PHYSICIAN NO [facility] 05-12-2022 09:00-0400 Body weight 79.83 kg PHYSICIAN NO [facility] 05-09-2022 14:19-0400 Body height 165.1 cm PHYSICIAN NO [facility] 05-09-2022 04:22-0400 Diastolic blood pressure 79 mm[Hg] PHYSICIAN NO [facility] 05-09-2022 04:22-0400 Systolic blood pressure 118 mm[Hg] PHYSICIAN NO [facility] 05-09-2022 01:14-0400 Heart rate 103 /min PHYSICIAN NO [facility] 05-09-2022 01:14-0400 Respiratory rate 18 /min PHYSICIAN NO [facility] 05-09-2022 01:14-0400 SaO2% (BldA) [Mass fraction] 97 % PHYSICIAN NO [facility] 05-08-2022 23:48-0400 Body height 165.1 cm PHYSICIAN NO [facility] 05-08-2022 23:48-0400 Body temperature 97.5 [degF] PHYSICIAN NO [facility] 05-08-2022 23:48-0400 Body weight 77.11 kg PHYSICIAN NO [facility] Encounters Encounter Date Encounter Type Care Provider Facility Start: 11-04-2023 End: 11-04-2023 ambulatory [facility]PRE[facility] PLUNKETT Not Available Start: 09-15-2023 End: 09-15-2023 ambulatory [facility] Start: 08-12-2023 End: 08-12-2023 ambulatory [facility] Start: 06-16-2023 End: 06-16-2023 Emergency department patient visit NO PCP NO PCP [facility] Start: 06-03-2023 End: 06-03-2023 ambulatory NO PCP NO PCP [facility] Start: 05-05-2023 End: 05-05-2023 ambulatory [facility] Start: 05-05-2023 Encounter for gynecological examination (general) (routine) without abnormal findings [facility] Start: 05-05-2023 End: 05-05-2023 Office outpatient visit 25 minutes Nieves Velasquez MD Work Phone: [facility] Comment on above: GA: 8w4d Start: 05-05-2023 End: 05-05-2023 Patient encounter status Nieves Velasquez MD Work Phone: [facility] Start: 05-05-2023 End: 05-05-2023 [facility] Start: 05-05-2023 Encounter for gynecological examination (general) (routine) without abnormal findings [facility] Start: 04-16-2023 End: 04-16-2023 ambulatory [facility] Start: 04-14-2023 End: 04-14-2023 Initial care visit Lynn 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 Work Phone: [facility] Comment on above: First trimester preg bal (Primary Dx); HTN in , chronic; History of gestational diabetes in prior , currently ; Nausea/vomiting in Start: 04-14-2023 End: 04-14-2023 ambulatory [facility] Start: 03-30-2023 End: 03-31-2023 [facility] Start: 11-27-2022 End: 11-30-2022 Evaluation and management of inpatient PHYSICIAN NO FAMILY Facility:[facility] Start: 11-27-2022 End: 11-30-2022 Evaluation and management of inpatient PHYSICIAN NO FAMILY [facility] Work Phone: Start: 11-27-2022 ambulatory PHYSICIAN NO FAMILY Fac ility:[facility] Start: 05-09-2022 End: 05-13-2022 Evaluation and management of inpatient PHYSICIAN NO FAMILY Facility:[facility] Start: 05-09-2022 End: 05-13-2022 Evaluation and management of inpatient PHYSICIAN NO FAMILY [facility] Work Phone: Start: 12-19-2021 End: 12-20-[address] [facility] Start: 03-17-2021 End: 03-18-2021 ambulatory NONE LISTED REQUEST Facility: Start: 06-11-2020 End: 06-14-2020 ambulatory REFERRED SELF Facility:[facility] Start: 06-10-2020 End: 06-10-[address] PRO BOSTON Facility: Start: 04-15-2018 End: 04-16-2018 Patient encounter procedure VIPUL TRIPATHI [facility] Start: 04-12-2018 End: 04-14-2018 Evaluation and management of inpatient [facility] Start: 04-02-2018 Encounter for preprocedural respiratory examination [facility] Start: 04-02-2018 Encounter for other preprocedural examination [facility] Start: 04-02-2018 End: 04-07-2018 Patient encounter procedure [facility] Start: 12-04-2017 End: 12-04-2017 Patient encounter procedure [facility] Encounter for other preprocedural examination [facility] Procedures Date Procedure Procedure Detail Performing [...] Td Vaccines (3 - Td or Tdap) [facility] Start: 05-04-2024 Adult BMI Screening Adult BMI Screen ing [facility] Start: 05-04-2024 Depression Screening Depression Scre ening [facility] Start: 05-04-2024 Tobacco Screening Tobacco Screening [facility] Start: 04-13-2024 Tobacco Screening Tobacco Screening [facility] Start: 03-30-2024 Adult BMI Screening Adult BMI Screen ing [facility] Start: 06-03-2023 End: 06-03-2023 Patient encounter procedure 06/03/2023 3:15 PM EDT Routine [facility] [address] [place] [id number] [facility] Start: 05-05-2023 End: 05-05-2023 ambulatory 05/05/2023 3:00 PM EDT Initial [facility] [address] [facility] [place] [id number] Nieves Velasquez MD [address] [facility] [place] [address] [facility] Start: 04-16-2023 Subsequent hospital visit by physician 04/16/2023 1:30 PM EST Hospital Encounter [facility] - Ultrasound [address] [place] [id number] Lynn Deleon, 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 [address] [place], [place] [phone] [facility] - Ultrasound Start: 04-14-2023 End: 04-13-2024 US transvaginal for Ultrasound less than 14 weeks with transvaginal Imaging Routine First trimester Expected: 04/14/2023, Expires: 04/13/2024 [facility] Work Phone: Comment on above: Expected: 04/14/2023 , Expires: 04/13/2024 Start: 11-30-2022 [facility] Start: 11-28-2022 Lipid panel [facility] Start: 11-28-2022 [facility] Start: 11-27-2022 Referral to 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 Rack 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 [facility] Start: 11-27-2022 Hospital admission [facility] Start: 11-27-2022 [facility] Start: 11-27-2022 Bacteria identified in Urine by Culture [facility] Start: 10-10-2022 Influenza vaccination Influenza Vacc ine [facility] Start: 05-13-2022 [facility] Start: 05-09-2022 Hospital admission [facility] Start: 04-20-2016 Screening for malign ant neoplasm of cervix Pap Smear [facility] Start: 04-20-2013 Adult BMI Follow Up Plan Adult BMI Follow Up Plan [facility] Start: 2007 Depression Screening Depression Scre ening [facility] End: 04-13-2024 Bacteria identified in Urine by Culture Urine Culture Microbiology Routine First trimester 1 Occurrences starting 04/14/2023 until 04/13/2024 [facility] Comment on above: 1 Occurrences starti ng 04/14/2023 until 04/13/2024 End: 04-13-2024 CBC panel - Blood by Automated count CBC without diff Lab Routine First trimester 1 Occurrences starting 04/14/2023 until 04/13/2024 [facility] Comment on above: 1 Occurrences starti ng 04/14/2023 until 04/13/2024 End: 05-04-2024 Chlamydia/GC by PCR ThinPrep fluid Chlamydia/GC by PCR ThinPrep fluid Microbiology Routine Screening for STD (sexually transmitted disease) 1 Occurrences starting 05/05/2023 until 05/04/2024 [facility] Comment on above: 1 Occurrences starti ng 05/05/2023 until 05/04/2024 End: 04-13-2024 Comprehensive metabolic 2000 panel - Serum or Plasma Comprehensive metabolic panel Lab Routine First trimester HTN in , chronic 1 Occurrences starting 04/14/2023 until 04/13/2024 [facility] Comment on above: 1 Occurrences starti ng 04/14/2023 until 04/13/2024 End: 04-13-2024 Creatinine clearance Creatinine clearance Lab Routine First trimester HTN in , chronic 1 Occurrences starting 04/14/2023 until 04/13/2024 [facility] Comment on above: 1 Occurrences starti ng 04/14/2023 until 04/13/2024 End: 05-04-2024 Cytopathology procedure, preparation of smear, genital source Pap Smear Pathology and Cytology Routine Smear, vaginal, as part of routine gynecological examination 1 Occurrences starting 05/05/2023 until 05/04/2024 [employer] Work Phone: Comment on above: 1 Occurrences starti ng 05/05/2023 until 05/04/2024 End: 04-13-2024 Drug Screen, Urine Drug Screen, Urine Lab Routine First trimester 1 Occurrences starting 04/14/2023 until 04/13/2024 [facility] Comment on above: 1 Occurrences starti ng 04/14/2023 until 04/13/2024 End: 04-13-2024 Glucose 1h post 50g load Glucose 1h post 50g load Lab Routine First trimester History of gestational diabetes in prior , currently 1 Occurrences starting 04/14/2023 until 04/13/2024 [facility] Comment on above: 1 Occurrences starti ng 04/14/2023 until 04/13/2024 End: 04-13-2024 Hepatitis panel, acute Hepatitis panel, acute Lab Routine First trimester 1 Occurrences starting 04/14/2023 until 04/13/2024 [facility] Comment on above: 1 Occurrences starti ng 04/14/2023 until 04/13/2024 End: 04-13-2024 HIV 1&2 AB/AG Screen (P24 AG) HIV 1&2 AB/AG Screen (P24 AG) Lab Routine First trimester 1 Occurrences starting 04/14/2023 until 04/13/2024 [facility] Comment on above: 1 Occurrences starti ng 04/14/2023 until 04/13/2024 End: 04-13-2024 LDH LDH Lab Routine First trimester HTN in , chronic 1 Occurrences starting 04/14/2023 until 04/13/2024 [facility] Comment on above: 1 Occurrences starti ng 04/14/2023 until 04/13/2024 Patient Education Depression, Ad ult (DC) [facility] Behavior[facility] Health DC Instructions [facility] Work Phone: Patient referral [facility] Work Phone: End: 04-13-2024 Rubella IGG immune status Rubella IGG immune status Lab Routine First trimester 1 Occurrences starting 04/14/2023 until 04/13/2024 [facility] Comment on above: 1 Occurrences starti ng 04/14/2023 until 04/13/2024 End: 04-13-2024 Syphilis Total(Unknown Syphilis Status) Syphilis Total(Unknown Syphilis Status) Lab Routine First trimester 1 Occurrences starting 04/14/2023 until 04/13/2024 [facility] Comment on above: 1 Occurrences starti ng 04/14/2023 until 04/13/2024 End: 04-13-2024 Type and screen Type and screen Blood Bank Routine First trimester 1 Occurrences starting 04/14/2023 until 04/13/2024 [facility] [employer] [facility] Comment on above: 1 Occurrences starti ng 04/14/2023 until 04/13/2024 End: 04-13-2024 Urate [Mass/volume] in Serum or Plasma Uric acid Lab Routine First trimester HTN in , chronic 1 Occurrences starting 04/14/2023 until 04/13/2024 [facility] Comment on above: 1 Occurrences starti ng 04/14/2023 until 04/13/2024 End: 04-13-2024 Urinalysis Urinalysis Lab Routine First trimester 1 Occurrences starting 04/14/2023 until 04/13/2024 [facility] Comment on above: 1 Occurrences starti ng 04/14/2023 until 04/13/2024 End: 04-13-2024 Urine protein creatinine ratio Urine protein creatinine ratio Lab Routine First trimester HTN in , chronic 1 Occurrences starting 04/14/2023 until 04/13/2024 [facility] Comment on above: 1 Occurrences starti ng 04/14/2023 until 04/13/2024 End: 04-13-2024 Varicella zoster antibody, IgG Varicella zoster antibody, IgG Lab Routine First trimester 1 Occurrences starting 04/14/2023 until 04/13/2024 [facility] [employer] [facility] Comment on above: 1 Occurrences starti ng 04/14/2023 until 04/13/2024 Immunizations Immunization Date Immunization Notes Care Provider Gretel grissom 12-21-2020 tetanus toxoid, redu lucy diphtheria toxoid, and acellular pertussis vaccine, adsorbed PHYSICIAN NO [facility] 09-02-2019 tetanus toxoid, redu lucy diphtheria toxoid, and acellular pertussis vaccine, adsorbed PHYSICIAN NO [facility] Payers Date Payer Category Payer Self-pay [id number] 2022 Medicaid [employer] [place] [id number] 2022-[facility] [phone] [place], [place] [address] [id number] 2021 Medicaid [id number] 2018 Unknown [id number] 2017 Private Health Insurance [id number] 1995 Unknown [id number] 2.16.840.1.468866.3.579.2. 175 1995 Unknown [id number] 2.16.840.1.933620.3.579.2. 175 1995 Unknown [id number] 2.16.840.1.998953.3.579.2. 175 1995 Unknown [id number] 2.16.840.1.377238.3.579.2. 175 1995 Unknown [id number] 2.16.840.1.228411.3.579.2. 175 1995 Unknown [id number] 2.16.840.1.789577.3.579.2. 593 1995 Unknown [id number] 2.16.840.1.511148.3.579.2. 593 1995 Unknown [id number] 2.16.840.1.566967.3.579.2. 647 1995 Unknown [id number] 2.16.840.1.491708.3.579.2. 1286 1995 Unknown [id number] 2.16.840.1.545251.3.579.2. 1286 1995 Unknown [id number] 2.16.840.1.209084.3.579.2. 1286 1995 Unknown [id number] 2.16.840.1.419155.3.579.2. 1286 1995 Unknown [id number] 2.16.840.1.777418.3.579.2. 1286 1995 Unknown [id number] 2.16.840.1.875280.3.579.2. 1286 1995 Unknown [id number] 2.16.840.1.910684.3.579.2. 1286 1995 Unknown [id number] 2.16.840.1.333314.3.579.2. 1286 1995 Unknown [id number] 2.16.840.1.284607.3.579.2. 1286 1995 Unknown [id number] 2.16.840.1.997788.3.579.2. 1286 1995 Unknown [id number] 2.16.840.1.535439.3.579.2. 1286 1995 Unknown [id number] 2.16.840.1.799350.3.579.2. 1286 1995 Unknown [id number] 2.16.840.1.222225.3.579.2. 1259 1959 Self-pay [id number] 1959 Unknown [id number] Medicaid [place] Advantage [id number] Unknown [id number] 2.16.840.1.717902.3.579.2. 531 Unknown [id number] 2.16.840.1.721519.3.579.2. 531 Unknown [id number] 2.16.840.1.660027.3.579.2. 531 Social History Date Type Detail Facility Start: 05-09-2022 End: 11-27-2022 Tobacco smoking status [facility] Never smoked tobacco (finding) [facility] Start: 1995 Sex Assigned At Female F [facility] Start: 11-28-2022 End: 03-24-2023 Tobacco smoking status CAIS Smoker (finding) [facility] Start: 04-14-2023 Tobacco smoking stat us [facility] Ex-smoker [facility] End: 03-24-2023 History of tobacco use Cigarette Smoker [facility] Start: 03-22-2020 End: 04-14-2023 Cigarettes smoked current (pack per day) - Reported 0.3 [facility] Start: 04-14-2023 Tobacco use and exposure Smokeless tobacco non-user [facility] Start: 04-14-2023 End: 05-05-2023 Alcohol intake Current non-drinker of alcohol (finding) [facility] Start: 03-22-2020 End: 04-14-2023 Tobacco use panel [facility] Childcare Unknown [facility] Start: 04-14-2023 Alcohol Comment SOBER 3 MONTHS [facility] Start: 1995 Sex Assigned At Not on file P [facility] How hard is it for y ou to pay for the very basics like food, housing, medical care, and heating Somewhat hard [facility] Start: 03-20-2023 [facility] Goals Date Patient Goal Desired Activity /State Functional Status Date Assessment Result Facility 11-30-2022 Functional status Patient at Baseline [facility] Work Phone: 05-13-2022 Functional status Patient at Baseline [facility] Work Phone: Mental Status Date Assessment Result Facility 11-30-2022 Cognitive function Cognitive Sta tus Patient at Baseline [facility] Work Phone: 05-13-2022 Cognitive function Cognitive Sta tus Patient at Baseline [facility] Work Phone: Clinical Notes 06-14-2020 to 05-05-2023 [...] No recent concerns documented in this encounter [employer] 04-14-2023 History of Presen t illness Narrative OB Intake Video Visit 27 y.o. at unknown gestation contacted through [employer] for OB intake video visit. verified and verbal consent obtained for video visit. Patient and provider both currently located in the [facility]. This was a planned . FOB involved ([employer]). Patient denies vaginal bleeding. Frequent nausea / [...] hx alcohol abuse. 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 Discussed testing. Pt declines all. The patient reports that there is not domestic violence in her life. Discussed exercise, diet and weight gain. Current BMI 28. Discussed smoking, alcohol use and drug use. Quit vaping / smoking 3 weeks ago, sober from alcohol 3 months. Discussed early danger signs and when/how to notify provider. Reviewed CNM / LONG FILLER CIGAR ROLLER MACHINE care, collaboration & referral to SENIOR TECHNICAL PROJECT MANAGER as needed. Reviewed course of care. Discussed CDC recommendation for exclusive for the first 6 months. Patient has not been covid vaccinated. Discussed recommendations in . Patient is taking an OTC vitamin. Will offer flu shot in the office. All questions answered. Educational materials provided through [employer]. Ultrasound and labs ordered. Appointment scheduled for initial OB visit with provider on 05/05/23. MARISOL Mabry 04/14/23 [id number]. Chronic HTN with no meds or PCP-baseline labs ordered. HX GDMA1-EARLY 1 HR GTT. Last pap was 3 years negative. Pt declined genetic testing. Stopped tobacco use and vaping 3 weeks ago.marino from alcohol for 3 months. documented in this encounter [facility] 04-14-2023 Miscellaneous Notes Addended by: LYNN DELEON on: 04/14/2023 03:15 PM Modules accepted: Orders documented in this encounter [facility] 04-14-2023 Note Addended by: LYNN DELEON on: 04/14/2023 03:15 PM Modules accepted: Orders [facility] 11-30-2022 Discharge summary Note Date/Time November 30, 2022 10:14am [facility] [address] [place] [address] Discharge Summary Signed Patient: Antoinette Recio MR#: [id number] : 1995 Acct:[id number] Age/Sex: 27 / F Adm Date: 3 Loc: Room: [address] [place] [address]: Dar Nation MD Copies to: [...] Instructions: Important Contact Information You can call [facility]al [facility] at [phone] any time day or night if you have emergent questions or question regarding discharge instructions. If at any time you are feeling an increase inyour psychiatric symptoms, call your physician or behavioral healthcare provider. If any time you have thoughts of harming yourself or others contact one of the following: Call (available 01/09) Crisis Text Line (available 01/09) text 4HOPE to [phone] [facility] Line (available 8 a.m. Midnight) call [phone]-YAIZ ([phone]) Prescriptions: New venlafaxine 75 mg Capsule,Extended Release [...] signed by Dar Nation MD> 11/30/22 1016 [facility] Work Phone: 1(525) 461-650010-22-2023 Hospital Discharge instructions Additional Instructions Important Contact Information You can call [facility] at [phone] any time day or night if you have emergent questions or question regarding discharge instructions. If at any time you are feeling an increase in your psychiatric symptoms, call your physician or behavioral healthcare provider. If any time you have thoughts of harming yourself or others contact one of the following: Call (available 01/09) Crisis Text Line (available 01/09) text 4HOPE to [phone] [facility] Line (available 8 a.m. Midnight) call [phone]-DPHI ([phone]) [facility] Work Phone: 1(588) 980-605510-21-2023 Progress note Author [facility] November 29, 2022 11:21am Note Date/Time November 29, 2022 1 1:22am [facility] [address] [place] [address] Psychiatry Progress Note Signed Patient: Antoinette Recio MR#: [id number] : 1995 Acct:[id number] Age/Sex: 27 / F Adm Date: 3 Loc: Room: [address] [place] [address] Type : ADM IN Attending Dr: Dar [...] signed by Dar Nation MD> 11/29/22 1121 [facility] Work Phone: 1(236) 722-143910-20-2023 History and physical note Author Dar Nation [facility] November 28, 2022 11:45am Note Date/Time November 28, 2022 1 1:45am [facility] [address] [place] [address] Psychiatry H&P Signed Patient: Antoinette Recio MR#: [id number] : 1995 Acct:[id number] Age/Sex: 27 / F Adm Date: 3 Loc: Room: [address] [place] [address] Type: ADM IN Attending Dr: Dar Nation [...] homicidality, reported suicidality Insight: fair Judgment: fair [facility] Medical History Clavicle fracture Miscarriage Surgical [...] Turbid A Urine pH 5.0 Ur Specific [place] 1.023 Urine Protein Trace H Urine Glucose [...] signed by Dar Nation MD> 11/28/22 1140 [facility] Work Phone: 1(543) 399-736104-04-2023 Discharge summary Author Dar Nation [facility] May 13, 2022 12:29pm Note Date/Time May 13, 2022 12:2 9pm [facility] [address] [place] [address] Discharge Summary Signed Patient: Antoinette Recio MR#: [id number] : 1995 Acct:[id number] Age/Sex: 27 / F Adm Date: 3 Loc: Room: [address] [place] [address]: Tiana Smith MD Copies to: [...] past year Living: House with parents in [place] Employment: None Patient was treated with Effexor. [...] No activity restrictions. Instructions: Depression, Adult (DC), [facility] Behavioral Health DC Instructions Prescriptions: New venlafaxine [...] 30 Days Qty: 30 0RF Follow Up: [facility] [Outside] (Please call to establish care with a primary provider for any medical needs. ) [facility] [Outside] [facility] [Outside] - 05/14/22 11:30 am (it disaster recovery manager: Thursday05/14/22 @ 11:30am Intake: Thursday05/20/22 @ 12:30pm Please bring a copy of your photo ID, insurance card, and proof of household income. Nurse: 05/22/22 @ 2:00pm with Anabel. Please see attached instruction sheet Psychiatry: Thursday05/27/22 @ 9:30am with Dr. Goetz) Documented By: Dar Nation MD 05/13/221227 Signed By: <Electronically signed by Dar Nation MD> 05/13/22 1229 [facility] Work Phone: 1(251) 524-840204-03-2023 Progress note Author Dar Nation [facility] May 12, 2022 3:21pm Note Date/Time May 12, 2022 3:21 pm [facility] [address] [place] [address] Psychiatry Progress Note Signed Patient: Antoinette Recio MR#: [id number] : 1995 Acct:[id number] Age/Sex: 27 / F Adm Date: 3 Loc: Room: [address] [place] [address] Type : ADM IN Attending Dr: Tiana Smith MD Copies to: ~ Date of Service: 05/12/2022 Subjective Subjective Narrative: Patient continues to move in the right direction with her's current [facility] protocol and antidepressant medication regimen. She denies [...] signed by Dar Nation MD> 05/12/22 152 [facility] Work Phone: 1(583) 147-399604-02-2023 Progress note Author Ji anderson [facility] May 11, 2022 8:50am Note Date/Time May 11, 2022 8:49 am [facility] [address] [place] [address] Psychiatry Progress Note Signed Patient: Antoinette Recio MR#: [id number] : 1995 Acct:[id number] Age/Sex: 27 / F Adm Date: 3 Loc: Room: [address] [place] [address] Type : ADM IN Attending Dr: Tiana Smith MD Copies to: ~ Date of Service: 05/11/2022 Subjective Subjective Narrative: Overnight: Patient was trying the unit doors trying to get out.? She was also starting to get mean.? She stated to this racebook writer, get out of my face, leave [...] and laid down on the bed.? This racebook writer gave report to the Special Care Unit nurse and then this racebook writer collected the patient's belongings and took [...] explained Documented By: Ji Smith MD 3 1269 Signed By: <Electronically signed by Ji Smith MD> 05/11/22 0850 [facility] Work Phone: 1(651) 703-914304-01-2023 Progress note Author Ji anderson [facility] May 10, 2022 5:02pm Note Date/Time May 10, 2022 10:2 5am [facility] [address] [place] [address] Psychiatry Progress Note Signed with Addenda Patient: Antoinette Recio MR#: [id number] : 1995 Acct:[id number] Age/Sex: 27 / F Adm Date: 3 Loc: Room: [address] [place] [address] Type : ADM IN Attending Dr: Tiana [...] signed by Ji Smith MD> 05/10/22 1025 [facility] Work Phone: 1(636) 631-553803-31-2023 History and physical note Author Ji anderson [facility] May 09, 2022 12:28pm Note Date/Time May 09, 2022 12: 28pm [facility] [address] [place] [address] Psychiatry H&P Signed Patient: Antoinette Recio MR#: [id number] : 1995 Acct:[id number] Age/Sex: 27 / F Adm Date: 3 Loc: Room: [address] [place] [address] Type: ADM IN Attending Dr: Tiana Smith [...] past year Living: House with parents in [place] Employment: None Review of symptoms: Constitutional: Denies [...] Appearance Clear Urine pH 5.5 Ur Specific [place] 1.013 Urine Protein 30 H Urine Glucose [...] <Electronically signed by Ji Smith MD> 05/09/22 [facility]8 [facility] Work Phone: 1(924) 388-430205-07-2021 Note [id number]:[address] [place] [address] 06-14-2020 [id number]:[address] [place], [place] [address]Evaluation note* Diagnosis Onset Date Resolution Status Suicidal ideation acute [facility] Work Phone: Evaluation note* Diagnosis Onset Date Resolution Status Alcohol use disorder acute Major depressive disorder, recurrent, moderate acute Suicidal ideation acute [facility] Work Phone: Evaluation note* Diagnosis Onset Date Resolution Status Suicidal ideation acute Urinary tract infection acut e [facility] Work Phone: Evaluation note* Diagnosis Onset Date Resolution Status Alcohol use disorder acute Major depressive disorder, recurrent, moderate acute Suicidal ideation acute Urinary tract infection acut e [facility] Work Phone: Evaluation note* Diagnosis [...] transmitted disease) documented in this encounter [facility] SystemHistory and physical note Author Ji anderson [facility] May 09, 2022 12:28pm Note Date/Time May 09, 2022 12: 28pm [facility] [address] [place] [address] Psychiatry H&P Signed Patient: Antoinette Recio MR#: [id number] : 1995 Acct:[id number] Age/Sex: 27 / F Adm Date: 3 Loc: Room: [address] [place] [address] Type: ADM IN Attending Dr: Tiana Smith [...] past year Living: House with parents in [place] Employment: None Review of symptoms: Constitutional: Denies [...] Appearance Clear Urine pH 5.5 Ur Specific [place] 1.013 Urine Protein 30 H Urine Glucose [...] signed by Ji Smith MD> 05/09/22 1228 [facility] Work Phone: Hospital Discharge instructions Additional Instructions Regular diet. No activity restrictions.[facility] Work Phone: Instructions* Attachments The following attachments cannot be sent through Care Everywhere. * Activity during ([facility]) * How to Adapt to Physical Changes During ([facility]) * Nutrition before and during ([facility]) * care ([facility]) documented [facility] SystemInstructionsNot on file documented in this encounterPro[facility] SystemProgress note Author Ji anderson [facility] May 10, 2022 5:02pm Note Date/Time May 10, 2022 10:2 5am [facility] [address] [place] [address] Psychiatry Progress Note Signed with Esmer Patient: Antoinette Recio MR#: [id number] : 1995 Acct:[id number] Age/Sex: 27 / F Adm Date: 3 Loc: Room: [address] [place] [address] Type : ADM IN Attending Dr: Tiana [...] signed by Ji Smith MD> 05/10/22 1025 [facility] Work Phone: Progress note Author Ji anderson [facility] May 11, 2022 8:50am Note Date/Time May 11, 2022 8:49 am [facility] [address] [place] [address] Psychiatry Progress Note Signed Patient: Antoinette Recio MR#: [id number] : 1995 Acct:[id number] Age/Sex: 27 / F Adm Date: 3 Loc: 1S Room: [address] [place] [address] Type : ADM IN Attending Dr: Tiana Smith MD Copies to: ~ Date of Service: 05/11/2022 Subjective Subjective Narrative: Overnight: Patient was trying the unit doors trying to get out.? She was also starting to get mean.? She stated to this racebook writer, get out of my face, leave [...] and laid down on the bed.? This racebook writer gave report to the Special Care Unit nurse and then this racebook writer collected the patient's belongings and took [...] signed by Ji Smith MD> 05/11/22 0850 [facility] Work Phone: Progress note Author Dar Nation [facility] May 12, 2022 3:21pm Note Date/Time May 12, 2022 3:21 pm [facility] [address] [place] [address] Psychiatry Progress Note Signed Patient: Antoinette Recio MR#: [id number] : 1995 Acct:[id number] Age/Sex: 27 / F Adm Date: 3 Loc: Room: [address] [place] [address] Type : ADM IN Attending Dr: Tiana [...] Dar Nation MD> 05/12/22 1521 [facility] Work Phone: Summary Purpose Family History No [...] section and content) DATE CREATED AUTHOR 2018 [facility] DATE CREATED AUTHOR AUTHOR'S ORGANIZ ATION 07/17/2020 [facility] DATE CREATED AUTHOR AUTHOR'S ORGANIZ ATION 03/19/2021 [facility] DATE CREATED AUTHOR AUTHOR'S ORGANIZ ATION 06/15/2021 [facility] DATE CREATED AUTHOR AUTHOR'S ORGANIZ ATION 12/21/2021 [facility] DATE CREATED AUTHOR AUTHOR'S ORGANIZ ATION 02/23/2023 [facility] DATE CREATED AUTHOR AUTHOR'S ORGANIZ ATION 06/05/2023 [facility] DATE CREATED AUTHOR AUTHOR'S ORGANIZ ATION 08/13/2023 [facility] DATE CREATED AUTHOR AUTHOR'S ORGANIZ ATION 09/17/2023 [facility] DATE CREATED AUTHOR AUTHOR'S ORGANIZ ATION 11/06/2023 [facility] EPIC Care Teams (unrecognized [...] MD Admit Provider, Attending Pr ovider Active Chief Pilot Relationship Specialty Start Date End Date No Pcp, [place] [address] PCP - General Family Medicine 03/30/23 Chief Pilot Relationship Specialty Start Date End Date No Pcp, [place] [address] PCP - General Family Medicine 03/30/23 Goals [...] BE BASED ON THE PRIMARY CLINICAL RECORDS. [employer]. provides no warranty or guarantee of the accuracy or completeness of information in this document.
== END 2023-11-09 20:27 | disposition home or self-care (01) ==
LOC: FBCO 19:08 → FBC 19:10
PROVIDERS: PCP Nurse Practitioner; Visit Provider Obstetrics & Gynecology
DX: O10.913 Unspecified pre-existing hypertension complicating pregnancy, third trimester (principal)
CPT/HCPCS: 76818

== ENCOUNTER 2023-11-10 16:30 | Inpatient (IN) | payer OTHER, SELFPAY ==
[2023-11-10] VITALS (45 sets, daily range): BP systolic 129–182; BP diastolic 71–111; PULSE 75–106; TEMP 36–37; O2SAT 96–100; BMI 25.3
--- NOTE | 2023-11-10 16:49 | CT_ITS ---
The [address] [address] Patient Name: BRAYDEN RECIO MRN: [id number] date: 1995 Sex: F Assigned Patient Location: ER Current Patient Location: ER Accession/Order Number: [id number] Exam Date: 11/10/2023 17:07 Report Date: 11/10/2023 17:32 At the request of: MAVIS HANSEN Procedure: CT head/brain wo con EXAM: CT head/brain wo con HISTORY: Headache, dizziness COMPARISON: 06/10/2020 TECHNIQUE: Multiple thin computed tomograms of the head were obtained, with sagittal and coronal reconstructions. Radiation reduction technique and algorithms were utilized during the study. FINDINGS: The ventricles are not enlarged, the lateral ventricles are symmetric and the third ventricles in the midline. The sylvian fissures and cortical sulci are unremarkable. There is no evidence of an intracranial hemorrhage, mass lesion or apparent acute infarct. The cerebellum and visualized brainstem are intact. The visualized paranasal sinuses are clear. The middle ears are aerated. The mastoid sinuses are clear. There is no apparent acute skull fracture. CT/CT head/brain wo con IMPRESSION: There is no evidence of an intracranial hemorrhage, mass lesion or apparent acute infarct. No abnormality is seen in the deep white matter. The visualized paranasal sinuses are clear. There is no apparent acute skull fracture. The overall appearance has not changed significantly since 06/10/2020. Electronically authenticated by: LEA HERRMANN Date: 11/10/2023 17:32
--- NOTE | 2023-11-10 16:49 | ECG_ITS ---
[facility] Test Date: 2023-11-10 Pat Name: BRAYDEN RECIO Department: Room: - Gender: Female Body Specialist: : 1995 Requested By: 0929 Order Number: [id number] Reading MD: ALEXANDRA RAYMUNDO Measurements Intervals [place] Rate: 84 P: 52 NV: 134 QRS: 12 QRSD: 92 T: 28 QT: 362 QTc: 403 Interpretive Statements 1100 Sinus rhythm 0102 ARTIFACT PRESENT 9110 normal ECG Electronically Signed On 11-10-2023 19:01:45 EDT by ALEXANDRA RAYMUNDO
--- NOTE | 2023-11-10 16:50 | ED_ITS ---
HPI HPI - General Adult General Chief complaint: Neck Pain/Injury Stated complaint: Neck Pain, Visual Disturbance Time Seen by Provider: 11/10/23 16:38 Source: patient Mode of arrival: walk-in Limitations: no limitations History of Present Illness HPI narrative: Patient is a 28-year-old female who presents to the emergency department for evaluation of a headache that began several hours ago associated with dizziness and blurred vision. Patient is 36 weeks . She has a history of 2 previous miscarriages, A2. Patient is not currently on any antihypertensive. She does take several psych medications. She denies peripheral paresthesias although she is shaky and anxious. No fevers, she was seen in this emergency department 3 days ago for upper respiratory symptoms. S he is still taking amoxicillin. No medications taken prior to arrival. Related Data Home Medications ?Medication ?Instructions ?Recorded ?Confirmed amoxicillin 500 mg capsule 500 mg PO DAILY 11/07/23 11/10/23 buprenorphine 8 mg-naloxone 2 mg film 11/07/23 sublingual film bupropion HCl 150 mg 24 hr tablet, 150 mg PO DAILY 11/07/23 11/10/23 extended release magnesium oxide 400 mg (241.3 mg mg 11/07/23 magnesium) tablet naloxone 4 mg/actuation nasal spray intranasal 11/07/23 Allergies Allergy/AdvReac Type Severity Reaction Status Date / Time erythromycin base Allergy Anaphylaxis Verified 11/07/23 19:07 Opioid HPI Opioid Management Most Recent Opioid Data: Urine Cannabinoids Positive (.) A 10/18/23 16:24 Ur Phencyclidine Scrn Negative (NEGATIVE) 10/18/23 16:24 Review of Systems ROS Constitutional Denies: fever or chills Eyes Reports: blurry vision Ears, nose, mouth, and throat Denies: throat pain or nasal congestion Cardiovascular Denies: chest pain Respiratory Denies: shortness of breath Gastrointestinal Denies: nausea or vomiting Musculoskeletal Reports: neck pain; Denies: back pain, extremity pain or extremity swelling Integumentary/Breast Denies: rash Neurological Reports: headache and dizziness; Denies: numbness in extremities or weakness in extremities Hematologic/Lymphatic Denies: easy bruising or easy bleeding PFSH PFSH Social History Little interest or pleasure in doing things: not at all Feeling down, depressed, or hopeless: not at all Exam Narrative Exam Narrative: Gen.: Awake, alert, in no distress Head: Normocephalic, atraumatic ENT: Moist mucous membranes Respiratory: No respiratory distress, lungs clear bilaterally Cardio: Regular rate and rhythm Gastrointestinal: Abdomen is soft, nondistended and nontender to palpation Extremities: Moves extremities equally Psych: Normal mood and affect Neuro: No focal neuro deficit Skin: Warm, dry, intact Constitutional Vital Signs, click to edit/add: Last Vital Signs Temp 98.0 F 11/10/23 16:38 Pulse 80 11/10/23 16:38 Resp 18 11/10/23 16:38 BP 172/110 H 11/10/23 16:49 Pulse Ox 99 11/10/23 16:38 O2 Del Method Room Air 11/10/23 16:38 Course Vital Signs Vital signs: Vital Signs Temperature 98.0 F 11/10/23 16:38 Pulse Rate 80 11/10/23 16:38 Respiratory Rate 18 11/10/23 16:38 Blood Pressure 150/98 H 11/10/23 16:38 Pulse Oximetry 99 11/10/23 16:38 Oxygen Delivery Method Room Air 11/10/23 16:38 Temperature 98.0 F 11/10/23 16:38 Pulse Rate 80 11/10/23 16:38 Respiratory Rate 18 11/10/23 16:38 Blood Pressure 172/110 H 11/10/23 16:49 Pulse Oximetry 99 11/10/23 16:38 Oxygen Delivery Method Room Air 11/10/23 16:38 Medical Decision Making MDM Narrative Medical decision making narrative: Patient was treated with 10 mg IV labetalol, Reglan and Benadryl for headache. Laboratory studies obtained including magnesium level. CT of the brain is unremarkable. Urine specimen is pending. Recheck blood pressure is 136/92. Discussed with Dr. Mathew and the patient is admitted to labor and delivery. Critical care time 35 minutes for treatment of probable preeclampsia SHARED APC VISIT, PHYSICIAN ATTESTATION: [id number] I performed a substantive part of the MDM during the patient?s E/M visit. I personally evaluated and examined the patient. I personally made or approved the documented management plan and acknowledge its risk of complications. Medical Records Medical records reviewed: Yes I reviewed the patient's medical records Lab Data Lab results reviewed: Yes I reviewed the patient's lab results Labs: Lab Results 11/10/23 Range/Units 16:54 WBC 14.8 H (4.0-11.0) 10^3/uL RBC 3.96 L (4.20-5.40) 10^6/uL Hgb 10.4 L (12.0-16.0) g/dL Hct 32.8 L (36.0-48.0) % MCV 82.8 (81.0-99.0) fL MCH 26.3 L (26.7-34.0) pg MCHC 31.7 (29.9-35.2) g/dL RDW 15.2 H (11.0-15.0) % Plt Count 313 (150-450) 10^3/uL MPV 8.8 L (9.5-13.5) fL Neut % (Auto) 81.0 H (43.0-75.0) % Lymph % (Auto) 12.7 L (20.5-60.0) % [place] % (Auto) 4.2 (1.7-12.0) % Eos % (Auto) 0.4 L (0.9-7.0) % Baso % (Auto) 0.5 (0.2-2.0) % Neut # (Auto) 12.0 H (1.4-6.5) 10^3/uL Lymph # (Auto) 1.9 (1.2-3.8) 10^3/uL [place] # (Auto) 0.6 (0.3-0.8) 10^3/uL Eos # (Auto) 0.1 (0.0-0.7) 10^3/uL Baso # (Auto) 0.1 (0.0-0.1) 10^3/uL Abs Immat Gran (auto) 0.18 H (0.00-0.03) 10^3/uL Imm/Tot Granulo (auto) 1.2 H (0.0-0.5) % Sodium 133 L (136-145) mmol/L Potassium 3.7 (3.5-5.1) mmol/L Chloride 97 L (98-107) mmol/L Carbon Dioxide 24.7 (21.0-32.0) mmol/L Anion Gap 15.0 BUN 7.0 (7.0-18.0) mg/dL Creatinine 0.76 (0.55-1.02) mg/dL Est GFR ( Amer) >60 (>=60 mL/min/1.73m^2) Est GFR (Non-Af Amer) >60 (>=60 mL/min/1.73m^2) BUN/Creatinine Ratio 9.2 Glucose 92 (74-106) mg/dL Lactate 1.3 (0.4-2.0) mmol/L Calcium 8.8 (8.5-10.1) mg/dL Magnesium 1.7 L (1.8-2.4) mg/dL Total Bilirubin 0.5 (0.2-1.0) mg/dL AST 25 (15-37) U/L ALT 19 (14-59) U/L Alkaline Phosphatase 153 H (46-116) U/L Total Protein 7.4 (6.4-8.2) g/dL Albumin 2.9 L (3.4-5.0) g/dL Globulin 4.5 g/dL Albumin/Globulin Ratio 0.6 TSH 3.516 (0.358-3.740) uIU/mL Imaging Data CT scan - head: Attestation: I have reviewed the pertinent imaging results. Radiologist's impression: ITS Impressions Head CT 11/10/23 16:49 IMPRESSION: There is no evidence of an intracranial hemorrhage, mass lesion or apparent acute infarct. No abnormality is seen in the deep white matter. The visualized paranasal sinuses are clear. There is no apparent acute skull fracture. The overall appearance has not changed significantly since 06/10/2020. Electronically authenticated by: LEA HERRMANN Date: 11/10/2023 17:32 ECG Data Attestation: I personally reviewed and interpreted this ECG as follows: (Normal sinus rhythm at a rate of 84, no acute ST elevation. Artifact noted. EKG reviewed by attending physician.) Critical Care Time Critical Care Time Critical Care Time: Yes Total Critical Care Time: 35 Attestation: 35 minutes of critical care time for treatment of potentially life-threatening preeclampsia and admission to labor and delivery for further evaluation and treatment per BUILDING INSPECTION ENGINEER. Discharge Plan Discharge Chief Complaint: Neck Pain/Injury Patient Disposition: Admitted to [facility], OBS Time of Disposition Decision: 17:42 Prescriptions / Home Meds: No Action amoxicillin 500 mg capsule 500 mg PO DAILY magnesium oxide 400 mg (241.3 mg magnesium) tablet bupropion HCl 150 mg tablet extended release 24 hr 150 mg PO DAILY buprenorphine-naloxone 8-2 mg film naloxone 4 mg/actuation spray,non-aerosol INTRANASAL Print Language: Serbian Referrals: Donna Prasad MORTGAGE PROCESSOR [Primary Care Provider] - 1 week
[2023-11-10 17:00] LABS: Basophils Absolute Auto 0.1 10^3/uL (0.0-0.1); Basophils Percent Auto 0.5 % (0.2-2.0); Eosinophils Absolute Auto 0.1 10^3/uL (0.0-0.7); Eosinophils Percent Auto 0.4 % (0.9-7.0); Hematocrit 32.8 % (36.0-48.0); Hemoglobin 10.4 g/dL (12.0-16.0); Immature Granulocytes Abs Auto 0.18 10^3/uL (0.00-0.03); Immature Granulocytes Pct Auto 1.2 % (0.0-0.5); Lymphocytes Absolute Auto 1.9 10^3/uL (1.2-3.8); Lymphocytes Percent Auto 12.7 % (20.5-60.0); Mean Corpuscular HGB Conc 31.7 g/dL (29.9-35.2); Mean Corpuscular Hemoglobin 26.3 pg (26.7-34.0); Mean Corpuscular Volume 82.8 fL (81.0-99.0); Mean Platelet Volume 8.8 fL (9.5-13.5); Monocytes Absolute Auto 0.6 10^3/uL (0.3-0.8); Monocytes Percent Auto 4.2 % (1.7-12.0); Platelet Count 313 10^3/uL (150-450); Red Blood Count 3.96 10^6/uL (4.20-5.40); Red Cell Distribution Width 15.2 % (11.0-15.0); White Blood Count 14.8 10^3/uL (4.0-11.0)
--- OUTSIDE RECORDS SUMMARY | 2023-11-10 17:04 | XMS_ITS | CCD ---
Author Organization [facility] Care Team Providers Care Pipe Cutter Name Role Phone CHER MARAVILLA Admitting Unavailable CHER MARAVILLA Attending Unavailable CHER MARAVILLA Referring Unavailable FERNANDO KELLI Primary Care Unavailable CHER MARAVILLA Referring Unavailable FERNANDO [facility] Primary Care Unavailable CHER MARAVILLA Admitting Unavailable CHER MARAVILLA Attending Unavailable FERNANDO KELLI Primary Care Unavailable VIPUL TRIPATHI Referring Unavailable FERNANDO, [facility] Primary Care Unavailable RACHAEL MERAZ Consulting Unavailable [...] Admit Provider MD Tiana Smith Attending Provider [phone] NO FAMILY, PHYSICIAN Primary Care Provider Unava MD Sara Delgado Emergency Provider [phone] MD Rios Dar Admit Provider MD Dar Nation Attending Provider [phone] NO FAMILY, PHYSICIAN Primary Care Unavailable Dar [...] Azithromycin; Translations: [azithromycin] Drug Allergy 05-08-2022 Anaphylaxis [facility] Medications Current Medications Medication Drug [...] Every 2 hours November 30, 2022 12:00am [place] (No Known Home Meds) (1 source) Start: 11-27-2022 [place] (No Known Home Meds) Active November 27, [...] 06-16-19 ABSOLUTE BASOPHIL 0.1 X10E9/L Normal 0.0-0.2 [facility] Comment on above: Performed By: #### 2 106-3 #### [facility] ([id number]) [address] [place] [address] 54552 ABSOLUTE NEUTROPHIL 11.8 X10E9/L High 1.5-6.6 [facility] Comment on above: Performed By: #### 2 106-3 #### [facility] ([id number]) [address] [place] [address] 36675 Basophils/100 WBC (Bld) 0.4 % Normal P [facility] Comment on above: Performed By: #### 2 106-3 #### [facility] ([id number]) [address] [place] [address] 58741 Eosinophils (Bld) [#/Vol] 0.1 10*3/uL Normal 0.0-0.4 [facility] Comment on above: Performed By: #### 2 106-3 #### [facility] ([id number]) [address] [place] [address] 10768 Eosinophils/100 WBC (Bld) 0.4 % Normal [facility] Comment on above: Performed By: #### 2 106-3 #### [facility] ([id number]) [address] [place] [address] 54325 Erythrocyte distribution width (RBC) [Ratio] 15.3 % High 11.5-15.0 [facility] Comment on above: Performed By: #### 2 106-3 #### [facility] ([id number]) [address] [place] [address] 39218 Hematocrit (Bld) [Volume fraction] 35.3 % Normal 35-47 [facility] Comment on above: Performed By: #### 2 106-3 #### [facility] ([id number]) [address] [place] [address] 41802 Hemoglobin (Bld) [Mass/Vol] 12.0 g/dL Normal 11.7-15.5 [facility] Comment on above: Performed By: #### 2 106-3 #### [facility] ([id number]) [address] [place] [address] 06533 Lymphocytes (Bld) [#/Vol] 1.4 10*3/uL Normal 1.0-3.5 [facility] Comment on above: Performed By: #### 2 106-3 #### [facility] ([id number]) [address] [place] [address] 96974 Lymphocytes/100 WBC (Bld) 10.3 % Normal [facility] Comment on above: Performed By: #### 2 106-3 #### [facility] ([id number]) [address] [place] [address] 36134 MCH (RBC) [Entitic mass] 28.1 pg Normal 27-34 [facility] Comment on above: Performed By: #### 2 106-3 #### [facility] ([id number]) [address] [place] [address] 90385 MCHC (RBC) [Mass/Vol] 33.9 g/dL Normal 32-36 [facility] Comment on above: Performed By: #### 2 106-3 #### [facility] ([id number]) [address] [place] [address] 77460 MCV (RBC) [Entitic vol] 83 fL Normal 80-100 [facility] Comment on above: Performed By: #### 2 106-3 #### [facility] ([id number]) [address] [place] [address] 33471 Monocytes (Bld) [#/Vol] 0.5 10*3/uL Normal 0-0.9 [facility] Comment on above: Performed By: #### 2 106-3 #### [facility] ([id number]) [address] [place] [address] 84926 Monocytes/100 WBC (Bld) 3.6 % Normal [facility] Comment on above: Performed By: #### 2 106-3 #### [facility] ([id number]) [address] [place] [address] 01587 Neutrophils/100 WBC (Bld) 85.3 % Normal [facility] Comment on above: Performed By: #### 2 106-3 #### [facility] ([id number]) [address] [place] [address] 46174 Platelet mean volume (Bld) [Entitic vol] 8.2 fL Normal 7-12 [facility] Comment on above: Performed By: #### 2 106-3 #### [facility] ([id number]) [address] [place] [address] 08628 Platelets (Bld) [#/Vol] 434 10*3/uL Normal 150-450 [facility] Comment on above: Performed By: #### 2 106-3 #### [facility] ([id number]) [address] [place] [address] 88683 RBC COUNT 4.27 X10E12/L Normal 3.80-5.20 [facility] Comment on above: Performed By: #### 2 106-3 #### [facility] ([id number]) [address] [place] [address] 35525 WBC (Bld) [#/Vol] 13.8 10*3/uL High 4.0-11.0 [facility] Comment on above: Performed By: #### 2 106-3 #### [facility] ([id number]) [address] [place] [address] 03139 COMPREHENSIVE METABOLIC PANE Shaji 06-16-2023 Albumin [Mass/Vol] 3.9 g/dL Normal 3.2-5.[address] [facility] Comment on above: Performed By: #### 2 106-3 #### [facility] ([id number]) [address] [place] [address] 64940 ALP [Catalytic activity/Vol] 46 U/L Normal 39-130 [facility] Comment on above: Performed By: #### 2 106-3 #### [facility] ([id number]) [address] [place] [address] 26919 ALT [Catalytic activity/Vol] 12 U/L Normal 0-31 [facility] Comment on above: Performed By: #### 2 106-3 #### [facility] ([id number]) [address] [place] [address] 10993 Anion gap [Moles/Vol] 12 mmol/L Normal 5-15 [facility] Comment on above: Performed By: #### 2 106-3 #### [facility] ([id number]) [address] [place] [address] 13462 AST [Catalytic activity/Vol] 15 U/L Normal 0-41 [facility] Comment on above: Performed By: #### 2 106-3 #### [facility] ([id number]) [address] [place] [address] 40248 Bilirubin [Mass/Vol] 0.3 mg/dL Normal 0.3-1.2 [facility] Comment on above: Performed By: #### 2 106-3 #### [facility] ([id number]) [address] [place] [address] 86375 Calcium [Mass/Vol] 9.0 mg/dL Normal 8.5-10.[address] [facility] Comment on above: Performed By: #### 2 106-3 #### [facility] ([id number]) [address] [place] [address] 88110 Chloride [Moles/Vol] 105 mmol/L Normal 98-109 [facility] Comment on above: Performed By: #### 2 106-3 #### [facility] ([id number]) [address] [place] [address] 81799 CO2 [Moles/Vol] 19 mmol/L Low 22-32 [facility] Comment on above: Performed By: #### 2 106-3 #### [facility] ([id number]) [address] [place] [address] 65691 Creatinine [Mass/Vol] 0.58 mg/dL Normal 0.40-1.00 [facility] Comment on above: Result Comment: METH OD TRACEABLE TO IDMS STANDARD Performed By: #### 2 106-3 #### [facility] ([id number]) [address] [place] [address] 11121 eGFR (CKD-EPI) NON-RACE DEPENDENT >90 Normal >59 [facility] Comment on above: Result Comment: Reported eGFR is based on the CKD-EPI 2020 equation that does not use a race coefficient. Performed By: #### 2 106-3 #### [facility] ([id number]) [address] [place] [address] 40781 Glucose [Mass/Vol] 87 mg/dL Normal 65-[address] [facility] Comment on above: Performed By: #### 2 106-3 #### [facility] ([id number]) [address] [place] [address] 87209 Potassium [Moles/Vol] 3.6 mmol/L Normal 3.5-5.0 [facility] Comment on above: Performed By: #### 2 106-3 #### [facility] ([id number]) [address] [place] [address] 60340 Protein [Mass/Vol] 7.5 g/dL Normal 6.0-8.[address] [facility] Comment on above: Performed By: #### 2 106-3 #### [facility] ([id number]) [address] [place] [address] 15159 Sodium [Moles/Vol] 136 mmol/L Normal 134-[address] [facility] Comment on above: Performed By: #### 2 106-3 #### [facility] ([id number]) [address] [place] [address] 31861 Urea nitrogen [Mass/Vol] 7 mg/dL Normal 5-23 [facility] Comment on above: Performed By: #### 2 106-3 #### [facility] ([id number]) [address] [place] [address] 07942 MAGNESIUMon 06-16-2023 Magnesium [Mass/Vol] 1.7 mg/dL Low 1.8-2.6 [facility] Comment on above: Performed By: #### 2 106-3 #### [facility] ([id number]) [address] [facility] [place] [address] SARS/FLU A+B/RSV by NAAT/Mol echcunon 06-16-2023 SARS/FLU A+B/RSV by NAAT/Molecular FLU A [...] operators who are performing tests using either PerSay DX or TrunqShow systems and is limited to laboratories that [...] repeat. Fact Sheet for Healthcare Providers: https://www.fda.gov/me gerry/548332/download Fact Sheet for Patients: https://www.fda.gov/sd gerry/989370/download Normal [facility] Comment on above: Performed By: #### 2 106-3 #### [facility] ([id number]) [address] [place] [address] [place] [address] URINALYSISon 06-16-2023 Bilirubin Ql (U) Negative Normal NEG [facility] Comment on above: Performed By: #### 2 106-3 #### [facility] ([id number]) [address] [place] [address] [place] [address] BLOOD/HGB Negative Normal NEG [facility] Comment on above: Performed By: #### 2 106-3 #### [facility] ([id number]) [address] [place] [address] 56832 Color (U) YELLOW Normal YELLOW [facility] Comment on above: Performed By: #### 2 106-3 #### [facility] ([id number]) [address] [place] [address] [place] [address] Glucose Ql (U) Negative Normal NEG [facility] Comment on above: Performed By: #### 2 106-3 #### [facility] ([id number]) [address] [place] [address] [place] [address] Ketones Ql (U) Negative Normal NEG [facility] Comment on above: Performed By: #### 2 106-3 #### [facility] ([id number]) [address] [place] [address] [place] [address] Leukocyte esterase Test strip Ql (U) Negative Normal NEG [facility] Comment on above: Performed By: #### 2 106-3 #### [facility] ([id number]) [address] [place] [address] [place] [address] MUCOUS PRESENT Abnormal NONE [facility] Comment on above: Performed By: #### 2 106-3 #### [facility] ([id number]) [address] [place] [address] 29801 Nitrite Ql (U) Negative Normal NEG [facility] Comment on above: Performed By: #### 2 106-3 #### [facility] ([id number]) [address] [place] [address] 65253 pH (U) 6.5 [pH] Normal 5.0-8.5 [facility] Comment on above: Performed By: #### 2 106-3 #### [facility] ([id number]) [address] [place] [address] 80691 Protein Ql (U) Trace Abnormal NEG [facility] Comment on above: Performed By: #### 2 106-3 #### [facility] ([id number]) [address] [place] [address] 86275 R.B.CELLS 0 /hpf Normal 0-5 [facility] Comment on above: Performed By: #### 2 106-3 #### [facility] ([id number]) [address] [place] [address] 53744 Specific gravity (U) [Rel density] 1.025 Normal 1.003-1.035 [facility] Comment on above: Performed By: #### 2 106-3 #### [facility] ([id number]) [address] [place] [address] 51839 SQUAMOUS EPITHELIUM 2 /hpf Normal 0-5 [facility] Comment on above: Performed By: #### 2 106-3 #### [facility] ([id number]) [address] [place] [address] 93672 TURBIDITY CLEAR Normal CLEAR [facility] Comment on above: Performed By: #### 2 106-3 #### [facility] ([id number]) [address] [place] [address] 40466 Urobilinogen Qn (U) 1.0 {Jazmine'U}/dL Normal <1.1 [facility] Comment on above: Performed By: #### 2 106-3 #### [facility] ([id number]) [address] [place] [address] 20530 W.B.CELLS 0 /hpf Normal 0-5 [facility] Comment on above: Performed By: #### 2 106-3 #### [facility] ([id number]) [address] [place] [address] 32457 CHLAMYDIA/GC PCR, FLon 05-04 CHLAMYDIA/GC PCR, FL [...] are dependent on adequate specimen collection. Normal [facility] Comment on above: Performed By: #### 2 106-3 #### [facility] ([id number]) [address] [place] [address] 02123 Cytologyon 05-05-2023 Cytology Normal [facility] Comment on above: Result Comment: [facility] [address] [place] [address] Gynecologic Cytology Consultation Patient Name:ANTOINETTE RECIO:1995 (Age: 28)Gender:FTaken:4Reported:4Physician(s):Nieves Velasquez M.D. ([phone])Copy To: Rec. #:[id number]: #[id number] Final Cytologic Interpretation ThinPrep Pap Test (Cervical): Satisfactory for evaluation. A transformation zone component is present. NEGATIVE FOR INTRAEPITHELIAL LESION OR MALIGNANCY. Numerous neutrophilic leukocytes are present. j/05/21/2023 Interpretation [facility] at [facility], [address] [place] [id number], License number: [id number]. Electronically Signed Out By FLAKO Houston(ASCP) Date of Last Menstrual Period: (None Given) Other Clinical Conditions: Z01.419 Printing Gray Cloth Tender exam wo/abn findings Z12.72 Screeing for malignant neoplasm of vagina Z11.3 Encntr screen for infections w sexl mode of transmiss Source of Specimen ThinPrep Pap Test (Cervical) Thin Prep Pap (DIRECTOR VETERINARY) Fee Code(s): G0145 ACUTE HEPATITIS PANELon ANTI HCV W/PCR REFLX Non-Reactive Normal NRCT [facility] Comment on above: Result Comment: If recent infection suspected, recommend repeat testing (>2 months). Igpiml-wo-shdjrl ratio is <0.80. Performed By: #### N UM #### [facility] ([id number]) [address] [place] [address] 95001 HEPATITIS A IGM Non-Reactive Normal NRCT [facility] Comment on above: Performed By: #### N UM #### [facility] ([id number]) [address] [place] [address] 86116 HEPATITIS B CORE IGM Negative Normal NEG [facility] Comment on above: Performed By: #### N UM #### [facility] ([id number]) [address] [place] [address] 69221 HEPATITIS B SURF AG Negative Normal NEG [facility] Comment on above: Performed By: #### N UM #### [facility] ([id number]) [address] [place] [address] 01818 COMPLETE BLOOD COUNTon 04-15 Erythrocyte distribution width (RBC) [Ratio] 18.6 % High 11.5-15.0 [facility] Comment on above: Performed By: #### C BC, CMP, 2532-0, 3084-1, AHP, 85912-8, 70196-7, 39133-6, 06778-5 #### [facility] ([id number]) [address], [address] [place] [address] Hematocrit (Bld) [Volume fraction] 34.6 % Low 35-47 [facility] Comment on above: Performed By: #### C BC, CMP, 2532-0, 3084-1, AHP, 03658-4, 40828-2, 95420-6, 83895-0 #### [facility] ([id number]) [address], [address] [place] [address] Hemoglobin (Bld) [Mass/Vol] 11.4 g/dL Low 11.7-15.5 [facility] Comment on above: Performed By: #### C BC, CMP, 2532-0, 3084-1, AHP, 18480-4, 94761-1, 36672-5, 18105-2 #### [facility] ([id number]) [address], [address] [place] [address] MCH (RBC) [Entitic mass] 26.7 pg Low 27-34 [facility] Comment on above: Performed By: #### C BC, CMP, 2532-0, 3084-1, AHP, 04189-0, 04284-9, 69925-1, 67577-4 #### [facility] ([id number]) [address], [address] [place] [address] MCHC (RBC) [Mass/Vol] 32.8 g/dL Normal 32-36 [facility] Comment on above: Performed By: #### C BC, CMP, 2532-0, 3084-1, AHP, 79600-3, 12194-1, 42417-0, 16612-9 #### [facility] ([id number]) [address], [address] [place] [address] MCV (RBC) [Entitic vol] 81 fL Normal 80-100 [facility] Comment on above: Performed By: #### C BC, CMP, 2532-0, 3084-1, AHP, 14339-4, 52586-3, 53354-9, 37459-1 #### [facility] ([id number]) [address], [address] [place] [address] Platelet mean volume (Bld) [Entitic vol] 8.5 fL Normal 7-12 [facility] Comment on above: Performed By: #### C BC, CMP, 2532-0, 3084-1, AHP, 01647-4, 68648-3, 29199-0, 29311-6 #### [facility] ([id number]) [address], [address] [place] [address] Platelets (Bld) [#/Vol] 351 10*3/uL Normal 150-450 [facility] Comment on above: Performed By: #### C BC, CMP, 2532-0, 3084-1, AHP, 90006-7, 75610-1, 79135-2, 88113-1 #### [facility] ([id number]) [address], [address] [place] [address] RBC COUNT 4.26 X10E12/L Normal 3.80-5.20 [facility] Comment on above: Performed By: #### C BC, CMP, 2532-0, 3084-1, AHP, 01509-6, 76816-8, 09299-6, 89006-7 #### [facility] [place] [facility] ([id number]) [address], [address] [place] [address] WBC (Bld) [#/Vol] 8.9 10*3/uL Normal 4.0-11.[address] [facility] Comment on above: Performed By: #### C BC, CMP, 2532-0, 3084-1, AHP, 15687-1, 80637-0, 83247-7, 51461-1 #### [facility] [place] [facility] ([id number]) [address], [address] [place] [address] COMPREHENSIVE METABOLIC PANE Shaji 04-16-2023 Albumin [Mass/Vol] 4.4 g/dL Normal 3.2-5.[address] [facility] Comment on above: Performed By: #### C BC, CMP, 2532-0, 3084-1, AHP, 49254-7, 01944-6, 61450-8, 68598-8 #### [facility] [place] [facility] ([id number]) [address], [address] [place] [address] ALP [Catalytic activity/Vol] 42 U/L Normal 39-130 [facility] Comment on above: Performed By: #### C BC, CMP, 2532-0, 3084-1, AHP, 68491-8, 29596-1, 25867-3, 01978-1 #### [facility] [place] [facility] ([id number]) [address], [address] [place] [address] ALT [Catalytic activity/Vol] 12 U/L Normal 0-31 [facility] Comment on above: Performed By: #### C BC, CMP, 2532-0, 3084-1, AHP, 30407-8, 98434-8, 02427-2, 25475-3 #### [facility] [place] [facility] ([id number]) [address], [address] [place] [address] Anion gap [Moles/Vol] 9 mmol/L Normal 5-15 [facility] Comment on above: Performed By: #### C BC, CMP, 2532-0, 3084-1, AHP, 60016-1, 38038-5, 19079-3, 36051-8 #### [facility] [place] [facility] ([id number]) [address], [address] [place] [address] AST [Catalytic activity/Vol] 13 U/L Normal 0-41 [facility] Comment on above: Performed By: #### C BC, CMP, 2532-0, 3084-1, AHP, 19900-9, 03606-3, 99196-0, 42362-8 #### [facility] [place] [facility] ([id number]) [address], [address] [place] [address] Bilirubin [Mass/Vol] 0.7 mg/dL Normal 0.3-1.2 [facility] Comment on above: Performed By: #### C BC, CMP, 2532-0, 3084-1, AHP, 57026-8, 54410-5, 29897-5, 48327-2 #### [facility] [place] [facility] ([id number]) [address], [address] [place] [address] Calcium [Mass/Vol] 9.4 mg/dL Normal 8.5-10.[address] [facility] Comment on above: Performed By: #### C BC, CMP, 2532-0, 3084-1, AHP, 34704-2, 20423-8, 85255-2, 12420-2 #### [facility] [place] [facility] ([id number]) [address], [address] [place] [address] Chloride [Moles/Vol] 103 mmol/L Normal 98-109 [facility] Comment on above: Performed By: #### C BC, CMP, 2532-0, 3084-1, AHP, 06142-9, 84862-8, 89530-3, 13002-3 #### [facility] [place] [facility] ([id number]) [address], [address] [place] [address] CO2 [Moles/Vol] 24 mmol/L Normal 22-32 [facility] Comment on above: Performed By: #### C BC, CMP, 2532-0, 3084-1, AHP, 13564-5, 28897-7, 07170-0, 77542-5 #### [facility] [place] [facility] ([id number]) [address], [address] [place] [address] Creatinine [Mass/Vol] 0.63 mg/dL Normal 0.40-1.00 [facility] Comment on above: Result Comment: METH OD TRACEABLE TO IDMS STANDARD Performed By: #### C SARWAT, CMP, 2532-0, 3084-1, AHP, 28205-4, 17592-8, 79632-5, 12623-4 #### [facility] [place] [facility] ([id number]) [address], [address] [place] [address] eGFR (CKD-EPI) NON-RACE DEPENDENT >90 Normal >59 [facility] Comment on above: Result Comment: Reported eGFR is based on the CKD-EPI 2020 equation that does not use a race coefficient. Performed By: #### C SARWAT, CMP, 2532-0, 3084-1, AHP, 42091-6, 26618-4, 03813-2, 89696-5 #### [facility] [place] [facility] ([id number]) [address], [address] [place] [address] Glucose [Mass/Vol] 84 mg/dL Normal 65-[address] [facility] Comment on above: Performed By: #### C OPAL FAM, 2532-0, 3084-1, AHP, 76590-5, 79212-0, 34635-9, 07703-4 #### [facility] [place] [facility] ([id number]) [address] [address] [place] [address] Potassium [Moles/Vol] 3.4 mmol/L Low 3.5-5.0 [facility] Comment on above: Performed By: #### C BC, CMP, 2532-0, 3084-1, AHP, 06252-0, 81277-0, 57364-4, 56977-6 #### [facility] ([id number]) [address] [address] [place] [address] Protein [Mass/Vol] 6.9 g/dL Normal 6.0-8.[address] [facility] Comment on above: Performed By: #### C BC, CMP, 2532-0, 3084-1, AHP, 72850-4, 38096-6, 64570-4, 41915-3 #### [facility] ([id number]) [address], [address] [place] [address] Sodium [Moles/Vol] 136 mmol/L Normal 134-[address] [facility] Comment on above: Performed By: #### C BC, CMP, 2532-0, 3084-1, AHP, 20012-2, 57991-0, 16829-2, 89483-2 #### [facility] ([id number]) [address], [address] [place] [address] Urea nitrogen [Mass/Vol] 11 mg/dL Normal 5-23 [facility] Comment on above: Performed By: #### C BC, CMP, 2532-0, 3084-1, AHP, 57501-4, 73681-3, 90930-2, 17688-6 #### [facility] ([id number]) [address], [address] [place] [address] DRUG SCREEN, URINEon 024 AMPHETAMINE/METHAMP Negative Normal NEG [facility] Comment on above: Result Comment: AMPH /METH screening cut off = 1000 ng/mL Performed By: #### N UM #### [facility] ([id number]) [address] [place] [id number] BARBITURATES Negative Normal NEG [facility] Comment on above: Result Comment: Carmella iturates screening cut off value = 200 ng/mL Performed By: #### N UM #### [facility] ([id number]) [address] [place] [address] 89852 BENZODIAZEPINES Negative Normal NEG [facility] Comment on above: Result Comment: German odiazepines screening cut off value = 200 ng/mL Performed By: #### N UM #### [facility] ([id number]) [address] [place] [address] 04242 CANNABINOIDS Positive Abnormal NEG [facility] Comment on above: Result Comment: Conf irmation available upon request. Cannabinoids/THC screening cut off value = 50 ng/mL Performed By: #### N UM #### [facility] ([id number]) [address] [place] [address] 81240 COCAINE METABOLITE Negative Normal NEG [facility] Comment on above: Result Comment: Coca ine screening cut off value = 300 ng/mL Performed By: #### N UM #### [facility] ([id number]) [address] [place] [address] 35234 ECSTASY Negative Normal NEG [facility] Comment on above: Result Comment: Ecst asy screening cut off value = 500 ng/mL This report is intended for use in clinical monitoring or management of patients. Performed By: #### N UM #### [facility] ([id number]) [address] [place] [address] 14551 METHADONE Negative Normal NEG [facility] Comment on above: Result Comment: Meth adone screening cut off value = 300 ng/mL. Performed By: #### N UM #### [facility] ([id number]) [address] [place] [address] 54125 OPIATES Negative Normal NEG [facility] Comment on above: Result Comment: Opia markie screening cut off value = 300 ng/mL NOTE: This test is used for the detection of codeine, hydrocodone (>1000 ng/mL), morphine and hydromorphone (>900 ng/mL) in urine. Performed By: #### N UM #### [facility] ([id number]) [address] [place] [address] [place] [address] OXYCODONE Negative Normal NEG [facility] Comment on above: Result Comment: Oxyc odone screening cut off value = 300 ng/mL NOTE: This test is used for the detection of oxycodone and oxymorphone in urine. Performed By: #### N UM #### [facility] ([id number]) [address] [place] [address] 85304 PHENCYCLIDINE Negative Normal NEG [facility] Comment on above: Result Comment: Phen cyclidine screening cut off value = 25 ng/mL Performed By: #### N UM #### [facility] ([id number]) [address] [place] [address] 08170 HIV 1+2 Ab+HIV1 p24 Ag IA Ql on 04-16-2023 HIV 1 and 2 Ab/Ag Screen Non-Reactive Normal NRCT [facility] Comment on above: Result Comment: This [...] diagnoses. Performed By: #### N UM #### [facility] ([id number]) [address] [place] [address] 64659 LDH [Catalytic activity/Vol] on 04-16-2023 LDH 156 U/L Normal 100-235 [facility] Comment on above: Performed By: #### N UM #### [facility] ([id number]) [address] [place] [address] 96125 PROTEIN CREAT RATIOon 2023 RANDOM URINE PROTEIN 180 mg/L High <120 [facility] Comment on above: Performed By: #### N UM #### [facility] ([id number]) [address] [place] [address] 33547 U/PRO/PAN PUSHER RATIO CALC 0.07 Normal <0.2 [facility] Comment on above: Result Comment: Neph rotic Syndrome is associated with ratios >3.5 Performed By: #### N UM #### [facility] ([id number]) [address] [place] [address] 08144 URINE CREATININE,RDM 273.50 mg/dL Normal [facility] Comment on above: Performed By: #### N UM #### [facility] ([id number]) [address] [place] [address] 95509 Rubella virus Ab Ql (S)on RUBELLA IMMUNE IgG 3.1 AI Normal [facility] Comment on above: Result Comment: Interpretation-------- <0.8 NEGATIVE-considered Not Immune 0.8-0.9 EQUIVOCAL-consider retesting with new specimen >0.9 POSITIVE-considered Immune Performed By: #### N UM #### [facility] ([id number]) [address] [place] [address] 75548 T. pallidum IgG+IgM IA Ql (S )on 04-16-2023 Syphilis Total <0.2 Normal 0.0-0.8 [facility] Comment on above: Result Comment: NON REACTIVE No serologic evidence of infection to Treponema pallidum (syphilis). Repeat testing may be considered in patients with suspected acute or primary syphilis in 2 to 4 weeks. Performed By: #### N UM #### [facility] ([id number]) [address] [place] [address] 41742 URIC ACIDon 04-16-2023 Urate [Mass/Vol] 7.5 mg/dL High 2.6-7.2 [facility] Comment on above: Performed By: #### N UM #### [facility] ([id number]) [address] [place] [address] 21887 URINALYSISon 04-16-2023 Bilirubin Ql (U) Negative Normal NEG [facility] BLOOD/HGB Negative Normal NEG [facility] CA OXALATE CRYSTALS PRESENT Abnormal NONE [facility] Color (U) BROWN Abnormal YELLOW [facility] Glucose Ql (U) Negative Normal NEG [facility] Ketones Ql (U) Negative Normal NEG [facility] Leukocyte esterase Test strip Ql (U) Small Abnormal NEG [facility] MUCOUS PRESENT Abnormal NONE [facility] Nitrite Ql (U) Negative Normal NEG [facility] pH (U) 6.0 [pH] Normal 5.0-8.5 [facility] Protein Ql (U) 30 mg/dL Abnormal NEG [facility] R.B.CELLS 2 /hpf Normal 0-5 [facility] Specific gravity (U) [Rel density] 1.030 Normal 1.003-1.035 [facility] SQUAMOUS EPITHELIUM >27 High 0-5 [facility] TURBIDITY CLOUDY Abnormal CLEAR [facility] Urobilinogen (U) [Mass/Vol] mg/dL Normal <1.1 [facility] W.B.CELLS <1 Normal 0-5 [facility] URINE CULTUREon 04-16-2023 Bacteria identified Cx Nom (U) CULTURE RESULTS 50-100,000 ORGANISMS/ML NORMAL UROGENITAL YOGESH Normal [facility] Comment on above: Performed By: #### 2 106-3 #### [facility] ([id number]) [address] [place] [address] [place] [address] US PREG LESS THAN 14 WKS WIT H TRANSVAGINALon 04-16-2023 US PREG LESS THAN 14 WKS WITH TRANSVAGINAL US PREG LESS THAN 14 WKS WITH TRANSVAGINAL US PREG LESS THAN 14 WKS WITH TRANSVAGINAL: 04/16/2023 1:04 PM Clinical: Check dates and viability. Real-time transabdominal and transvaginal sonography pelvis performed.. No comparison. There is a single live intrauterine . [place]-rump length of 2.9 mm corresponds to 5 [...] Cook MD on 04/16/2023 6:58 PM Normal [facility] VZV IgG IA Ql (S)on 04-16-19 24 VARICELLA IgG 1.1 AI High <0.9 [facility] Comment on above: Result Comment: Interpretation-------- <0.9 Negative 0.9 - 1.0 Equivocal >1.0 Positive Performed By: #### N UM #### [facility] ([id number]) [address] [place] [address] 51208 CBC AND AUTO DIFFon 03-30-19 24 ABSOLUTE BASOPHIL 0.1 X10E9/L Normal 0.0-0.[address] [facility] Comment on above: Performed By: #### C SANAM [facility], 11818-8 #### [facility] ([id number]) [address] [place] [address] 85467 ABSOLUTE NEUTROPHIL 7.6 X10E9/L High 1.5-6.6 [facility] Comment on above: Performed By: #### C OPAL [place], 86465-3 #### [facility] ([id number]) [address] [place] [address] 18199 Basophils/100 WBC (Bld) 0.7 % Normal P [facility] Comment on above: Performed By: #### C OPAL MAR[place], 07728-4 #### [facility] ([id number]) [address] [place] [address] Eosinophils (Bld) [#/Vol] 0.2 10*3/uL Normal 0.0-0.4 [facility] Comment on above: Performed By: #### Doretha MARION CMP, #### [facility] ([id number]) [address] [place] [address] 24708 Eosinophils/100 WBC (Bld) 1.8 % Normal [facility] Comment on above: Performed By: #### Doretha MARION [facility], #### [facility] ([id number]) [address] [place] [address] 55777 Erythrocyte distribution width (RBC) [Ratio] 18.4 % High 11.5-15.0 [facility] Comment on above: Performed By: #### Doretha MARION [facility], #### [facility] ([id number]) [address] [place] [address] 73615 Hematocrit (Bld) [Volume fraction] 35.8 % Normal 35-47 [facility] Comment on above: Performed By: #### Doretha MARION [facility], #### [facility] ([id number]) [address] [place] [address] 53229 Hemoglobin (Bld) [Mass/Vol] 11.7 g/dL Normal 11.7-15.5 [facility] Comment on above: Performed By: #### Doretha MARION [facility], #### [facility] ([id number]) [address] [place] [address] 99363 Lymphocytes (Bld) [#/Vol] 2.2 10*3/uL Normal 1.0-3.5 [facility] Comment on above: Performed By: #### Doretha MARION CMP, #### [facility] ([id number]) [address] [place] [address] 66242 Lymphocytes/100 WBC (Bld) 20.7 % Normal [facility] Comment on above: Performed By: #### C OPAL MARION, #### [facility] ([id number]) [address] [place] [address] 20947 MCH (RBC) [Entitic mass] 26.2 pg Low 27-34 [facility] Comment on above: Performed By: #### Doretha MARION CMP, #### [facility] ([id number]) [address] [place] [address] 65948 MCHC (RBC) [Mass/Vol] 32.8 g/dL Normal 32-36 [facility] Comment on above: Performed By: #### Doretha MARION CMP, #### [facility] ([id number]) [address] [place] [address] 70456 MCV (RBC) [Entitic vol] 80 fL Normal 80-100 [facility] Comment on above: Performed By: #### Doretha MARION CMP, #### [facility] ([id number]) [address] [place] [address] 31990 Monocytes (Bld) [#/Vol] 0.5 10*3/uL Normal 0-0.9 [facility] Comment on above: Performed By: #### Doretha MARION CMP, #### [facility] ([id number]) [address] [place] [address] 85530 Monocytes/100 WBC (Bld) 5.2 % Normal [facility] Comment on above: Performed By: #### Doretha MARION CMP, #### [facility] ([id number]) [address] [place] [address] 69662 Neutrophils/100 WBC (Bld) 71.6 % Normal [facility] Comment on above: Performed By: #### Doretha MARION CMP, #### [facility] ([id number]) [address] [place] [address] 46278 Platelet mean volume (Bld) [Entitic vol] 8.3 fL Normal 7-12 [facility] Comment on above: Performed By: #### C SANAM CMP, #### [facility] ([id number]) [address] [place] [address] 41364 Platelets (Bld) [#/Vol] 337 10*3/uL Normal 150-450 [facility] Comment on above: Performed By: #### Doretha MARION CMP, #### [facility] ([id number]) [address] [place] [address] 40715 RBC COUNT 4.48 X10E12/L Normal 3.80-5.20 [facility] Comment on above: Performed By: #### Doretha MARION CMP, #### [facility] ([id number]) [address] [place] [address] 23711 WBC (Bld) [#/Vol] 10.6 10*3/uL Normal 4.0-11.0 [facility] Comment on above: Performed By: #### Doretha MARION CMP, #### [facility] ([id number]) [address] [place] [address] 00069 COMPREHENSIVE METABOLIC PANE Shaji 03-30-2023 Albumin [Mass/Vol] 4.4 g/dL Normal 3.2-5.[address] [facility] Comment on above: Performed By: #### C SANAM CMP, #### [facility] ([id number]) [address] [place] [address] 07973 ALP [Catalytic activity/Vol] 40 U/L Normal 39-130 [facility] Comment on above: Performed By: #### Doretha MARION CMP, #### [facility] ([id number]) [address] [place] [address] 91536 ALT [Catalytic activity/Vol] 12 U/L Normal 0-31 [facility] Comment on above: Performed By: #### C BCA, CMP, #### [facility] ([id number]) [address] [place] [address] 44197 Anion gap [Moles/Vol] 8 mmol/L Normal 5-15 [facility] Comment on above: Performed By: #### C BCA, CMP, #### [facility] ([id number]) [address] [place] [address] 94856 AST [Catalytic activity/Vol] 16 U/L Normal 0-41 [facility] Comment on above: Performed By: #### C BCA, CMP, #### [facility] ([id number]) [address] [place] [address] 14619 Bilirubin [Mass/Vol] 0.5 mg/dL Normal 0.3-1.2 [facility] Comment on above: Performed By: #### C BCA, CMP, #### [facility] ([id number]) [address] [place] [address] 29020 Calcium [Mass/Vol] 9.2 mg/dL Normal 8.5-10.[address] [facility] Comment on above: Performed By: #### C BCA, CMP, #### [facility] ([id number]) [address] [place] [address] 97617 Chloride [Moles/Vol] 105 mmol/L Normal 98-109 [facility] Comment on above: Performed By: #### C BCA, CMP, #### [facility] ([id number]) [address] [place] [address] 06138 CO2 [Moles/Vol] 24 mmol/L Normal 22-32 [facility] Comment on above: Performed By: #### C OPAL MARION, 11920-3 #### [facility] ([id number]) [address] [place] [address] 46103 Creatinine [Mass/Vol] 0.74 mg/dL Normal 0.40-1.00 [facility] Comment on above: Result Comment: METH OD TRACEABLE TO IDMS STANDARD Performed By: #### C OPAL MARION, #### [facility] ([id number]) [address] [place] [address] 59374 eGFR (CKD-EPI) NON-RACE DEPENDENT >90 Normal >59 [facility] Comment on above: Result Comment: Reported eGFR is based on the CKD-EPI 2020 equation that does not use a race coefficient. Performed By: #### C OPAL MARION, #### [facility] ([id number]) [address] [place] [address] 01317 Glucose [Mass/Vol] 89 mg/dL Normal 65-[address] [facility] Comment on above: Performed By: #### C OPAL MARION, #### [facility] ([id number]) [address] [place] [address] 07796 Potassium [Moles/Vol] 3.7 mmol/L Normal 3.5-5.0 [facility] Comment on above: Performed By: #### C OPAL MARION, #### [facility] ([id number]) [address] [place] [address] 02002 Protein [Mass/Vol] 7.4 g/dL Normal 6.0-8.[address] [facility] Comment on above: Performed By: #### C OPAL MARION, #### [facility] ([id number]) [address] [place] [address] 54189 Sodium [Moles/Vol] 137 mmol/L Normal 134-[address] [facility] Comment on above: Performed By: #### C BCA, CMP, 66383-3 #### [facility] ([id number]) [address] [place] [address] 39185 Urea nitrogen [Mass/Vol] 10 mg/dL Normal 5-23 [facility] Comment on above: Performed By: #### C BCA, CMP, 00552-1 #### [facility] ([id number]) [address] [place] [address] 25380 HCG ( test) Ql (U)o n 03-30-2023 Beta HCG ( test) Ql (U) Positive Abnormal NEG [facility] Comment on above: Performed By: #### 2 106-3 #### [facility] ([id number]) [address] [place] [address] 25743 HCG.beta subunit IA 3rd IS Q non 03-30-2023 HCG.beta subunit Qn 80 m[IU]/mL Normal [facility] Comment on above: Result Comment: NEW [...] Performed By: #### C BCA, CMP, #### [facility] ([id number]) [address] [place] [address] 10387 URINE CULTUREon 03-30-2023 Bacteria identified Cx Nom (U) CULTURE RESULTS 10-50,000 ORGANISMS/mL NORMAL UROGENITAL YOGESH Normal [facility] Comment on above: Performed By: #### 6 30-4 #### [facility] ([id number]) [address] [place] [address], [address] [place] [address] URN MACROSCOPIC NURon 2023 BILIRUBIN YARI Negative Normal NEG [facility] Comment on above: Performed By: #### N UM #### [facility] ([id number]) [address] [place] [address] [place] [address] BLOOD/HGB YARI Negative Normal NEG [facility] Comment on above: Performed By: #### N UM #### [facility] ([id number]) [address] [place] [address] [place] [address] GLUCOSE YARI Negative Normal NEG [facility] Comment on above: Performed By: #### N UM #### [facility] ([id number]) [address] [place] [address], [place] [address] KETONES YARI Negative Normal NEG [facility] Comment on above: Performed By: #### N UM #### [facility] ([id number]) [address] [place] [address], [place] [address] LEUKOCYTE ESTERASE YARI Negative Normal NEG [facility] Comment on above: Performed By: #### N UM #### [facility] ([id number]) [address] [place] [address] [place] [address] NITRITE YARI Negative Normal NEG [facility] Comment on above: Performed By: #### N UM #### [facility] ([id number]) [address] [place] [address] [place] [address] PH YARI 6.0 Normal 5.0-8.5 [facility] Comment on above: Performed By: #### N UM #### [facility] ([id number]) [address] [place] [address] PROTEIN YARI Negative Normal NEG [facility] Comment on above: Performed By: #### N UM #### [facility] ([id number]) [address] [place] [address] SPECIFIC GRAVITY YARI >=1.030 Normal 1.003-1.035 [facility] Comment on above: Performed By: #### N UM #### [facility] ([id number]) [address] [place] [address] UROBILINOGEN YARI 0.2 eu/dL Normal <1.1 [facility] Comment on above: Performed By: #### N UM #### [facility] ([id number]) [address] [place] [address] 67792 US PREG LESS THAN 14 WKS WIT [...] Eckert MD on 03/30/2023 8:48 PM Normal [facility] Cholesterol [Mass/volume] in Serum or PlasmaOrdered By: Dar Nation on 11-28-2022 Cholesterol [Mass/Vol] 200 mg/dL 140-200 [facility] Comment on above: Chol less than 200 m g/dl low riskChol 201-239 mg/dl borderline riskChol 240 mg/dl and greater high risk Cholesterol in LDL Calc [Mas s/Vol]Ordered By: Dar Nation on 11-28-2022 Cholesterol in LDL [Mass/Vol] 75 mg/dL 0-100 [facility] Comment on above: LDL ATP III CLASSIFI CATIONLDL less than 100 mg/dL OptimalLDL 100-129 mg/dL Near or above optimalLDL 130-159 mg/dL Borderline highLDL 160-189 mg/dL HighLDL greater than 189 mg/dL Very high Cholesterol in VLDL Calc [Ma ss/Vol]Ordered By: Dar Nation on 11-28-2022 Cholesterol in VLDL [Mass/Vol] 16 mg/dL [facility] Lipid Panelon 11-28-2022 Cholesterol [Mass/Vol] 200 mg/dL Normal 140-200 [facility] Comment on above: Result Comment: Chol less than 200 mg/dl low risk Chol 201-239 mg/dl borderline risk Chol 240 mg/dl and greater high risk Performed By: #### H S TROP, CMP, ETOH, CBC, TSH3 #### [facility] [address] [place] [address] [place] Cholesterol in HDL [Mass/Vol] 109 mg/dL High 23-92 [facility] Comment on above: Result Comment: HDL CHOL ATP-III CLASSIFICATION Cardiovascular Risk HDL > or equal to 60 mg/dL LOW HDL < 40 mg/dL HIGH Performed By: #### H S TROP, CMP, ETOH, CBC, TSH3 #### [facility] [address] [place] [address] [place] Cholesterol.total/Sarah sterol in HDL [Mass ratio] 1.8 {ratio} Normal <5.0 [facility] Comment on above: Performed By: #### H S TROP, CMP, ETOH, CBC, TSH3 #### [facility] [address] [place] [address] [place] LDL Cholesterol,Calculated 75 mg/dL Normal 0-100 [facility] Comment on above: Result Comment: LDL ATP III CLASSIFICATION LDL less than 100 mg/dL Optimal LDL 100-129 mg/dL Near or above optimal LDL 130-159 mg/dL Borderline high LDL 160-189 mg/dL High LDL greater than 189 mg/dL Very high Performed By: #### H S TROP, CMP, ETOH, CBC, TSH3 #### [facility] [address] Triglyceride w/Reflex 80 mg/dL Normal 0-149 [facility] Comment on above: Result Comment: TRIG ATP III CLASSIFICATION TRIG less than 150 mg/dL Normal TRIG 150-199 mg/dL Borderline high TRIG 200-500 mg/dL High TRIG greater than 500 mg/dL Very high Standard traceable to the Center for Disease Conrtrol and Prevention (CDC) test method. Performed By: #### H S TROP, CMP, ETOH, CBC, TSH3 #### [facility] [address] VLDL CHOLESTEROL 16 mg/dL Normal [facility] Comment on above: Performed By: #### H S TROP, CMP, ETOH, CBC, TSH3 #### [facility] [address] Serum or plasma high density lipoprotein (HDL) cholesterol measurementOrdered By: Dar Nation on 11-28-2022 Cholesterol in HDL [Mass/Vol] 109 mg/dL 23-92 [facility] Comment on above: HDL CHOL ATP-III CLA SSIFICATION Cardiovascular RiskHDL > or equal to 60 mg/dL LOWHDL < 40 mg/dL HIGH Serum or plasma total choles terol/high density lipoprotein (HDL) cholesterol mass ratOrdered By: Dar Nation on 11-28-2022 Cholesterol.total/Sarah sterol in HDL [Mass ratio] 1.8 {ratio} <5.0 [facility] Thyroid Stim Hormone w/Rflxo n 11-28-2022 Thyroid Stim Hormone w/Rflx 1.79 u[iU]/mL Normal 0.45-5.33 [facility] Comment on above: Performed By: #### H S TROP, CMP, ETOH, CBC, TSH3 #### [facility] [address] Thyrotropin [Units/volume] i n Serum or PlasmaOrdered By: Dar Nation on 11-28-2022 TSH Qn 1.79 m[IU]/L 0.45-5.33 [facility] Triglyceride [Mass/volume] i n Serum or PlasmaOrdered By: Dar Nation on 11-28-2022 Triglyceride [Mass/Vol] 80 mg/dL 0-149 [facility] Comment on above: TRIG ATP III CLASSIF ICATIONTRIG less than 150 mg/dL NormalTRIG 150-199 mg/dL Borderline highTRIG 200-500 mg/dL High TRIG greater than 500 mg/dL Very highStandard traceable to the Center for Disease Conrtrol and Prevention (CDC) test method. Vitamin D 25 Hydroxy Totalon 11-28-2022 Vitamin D 25 Hydroxy Total 32.8 ng/mL Normal 30-100 [facility] Comment on above: Result Comment: JESSICA MIN D STATUS 25(OH)VITAMIN D RANGE (ng/mL) Deficient <20 Insufficient 20 to <30 Sufficient 30 to 100 Reference: Aye Palacios, Geremias YOUNG, et al. Evaluation,treatment, and prevention of vitamin D deficiency; an Endocrine Society clinical practice guideline. JCEM. 2010; 96(7):1911-30. PERFORMED BY: [place] [address] PATHOLOGIST EDITOR SOUND KELLIE ALVARADO M.D. Performed By: #### H S TROP, CMP, ETOH, CBC, TSH3 #### [address] Vitamin D+Metabolites [Mass/ volume] in Serum or PlasmaOrdered By: Dar Nation on 11-28-2022 Vitamin D+Metabolites [Mass/Vol] 32.8 ng/mL 30-100 [facility] Comment on above: VITAMIN D [...] 11-27-2022 ALT [Catalytic activity/Vol] 19 U/L 7-52 [facility] Albumin [Mass/volume] in Ser um or Plasma by Bromocresol green (BCG) dye binding methoOrdered By: Sara Tripathi on 11-27-2022 Albumin BCG dye [Mass/Vol] 4.2 g/dL 3.5-5.7 [facility] Alkaline phosphatase [Enzyma tic activity/volume] in Serum or PlasmaOrdered By: Sara Tripathi on 11-27-2022 ALP [Catalytic activity/Vol] 56 U/L 34-104 [facility] Amphetamine Screen Ql (U)Ord ered By: Sara Tripathi on 11-27-2022 Amphetamines Ql (U) Negative Negative [facility] Aspartate aminotransferase [ Enzymatic activity/volume] in Serum or PlasmaOrdered By: Sara Tripathi on 11-27-2022 AST [Catalytic activity/Vol] 31 U/L 13-39 [facility] Automated erythrocytes count in urine sediment (number/area)Ordered By: Sara Tripathi on 11-27-2022 RBC Auto (Urine sed) [#/Area] 5-9 [HPF] 0-4 [facility] Automated leukocytes count i n urine sediment (number/area)Ordered By: Sara Tripathi on 11-27-2022 WBC Auto (Urine sed) [#/Area] 50-100 [HPF] 0-4 [facility] Automated urine hyaline cast s count (number/volume)Ordered By: Sara Tripathi on 11-27-2022 Hyaline casts Auto (U) [#/Vol] None seen [LPF] 0-1 [facility] Barbiturates [Presence] in U rine by Screen methodOrdered By: Sara Tripathi on 11-27-2022 Barbiturates Screen Ql (U) Negative Negative [facility] Basophils Auto (Bld) [#/Vol] Ordered By: Sara Tripathi on 11-27-2022 Basophils (Bld) [#/Vol] 0.2 10*3/uL 0.0-0.2 [facility] Basophils/100 WBC Auto (Bld) Ordered By: Sara Tripathi on 11-27-2022 Basophils/100 WBC (Bld) 3.0 % . [facility] Benzodiazepines Screen Ql (U )Ordered By: Sara Tripathi on 11-27-2022 Benzodiazepines Ql (U) Negative Negative Fi [facility] Benzoylecgonine [Presence] i n Urine by Screen methodOrdered By: Sara Tripathi on 11-27-2022 Benzoylecgonine Screen Ql (U) Negative Negative [facility] Bilirubin Test strip Ql (U)O rdered By: Sara Tripathi on 11-27-2022 Bilirubin Ql (U) Negative Negative [facility] Bilirubin.total [Mass/volume ] in Serum or PlasmaOrdered By: Sara Tripathi on 11-27-2022 Bilirubin [Mass/Vol] 0.7 mg/dL 0.3-1.[address] [facility] [address] abdomen pelvis wo conon 1 CT abdomen pelvis wo con [facility] [place] [address] CT Scan Report Signed Patient: Antoinette Recio MR#: [id number] : 1995 Acct:[id number] Age/Sex: 27 / F ADM Date: 11/27/22 Loc: ER Room: Type: [facility] ER Attending Dr: Copies to: Sara [...] Vipul Rucker M.D.11/27/2022 11:17 AM Dictation Location: [place] [address] Transcribed By: [facility] 11/27/22 111 Dictated By: Vipul Rucker II, MD 11/27/22 111 Signed By: 11/27/22 111 Normal [facility] Calcium [Mass/volume] in Ser um or PlasmaOrdered By: Sara Tripathi on 11-27-2022 Calcium [Mass/Vol] 9.4 mg/dL 8.6-10.3 [facility] Cannabinoids [Presence] in U rine by Screen methodOrdered By: Sara Tripathi on 11-27-2022 Cannabinoids Screen Ql (U) Positive Negative [facility] Comment on above: These are unconfirme d results and should not be used for legal purposes. Drug Cut-Off Concentration: AMPH 1000 ng/mL CARMELLA 200 ng/mL GERMAN 200 ng/mL COCM 300 ng/mL OP 300 ng/mL PCP 25 ng/mL THC 20 ng/mL Carbon dioxide, total [Moles /volume] in Serum or PlasmaOrdered By: Sara Tripathi on 11-27-2022 CO2 [Moles/Vol] 24.9 mmol/L 21.0-31.0 [facility] Casts typing in urine sedime nt by light microscopyOrdered By: Sara Tripathi on 11-27-2022 Casts LM Nom (Urine sed) None seen [LPF] None Seen [facility] Chloride [Moles/volume] in S phil or PlasmaOrdered By: Sara Tripathi on 11-27-2022 Chloride [Moles/Vol] 101 mmol/L 98-107 [facility] Coarse granular casts count in urine sediment by microscopy low power field (number/aOrdered By: Sara Tripathi on 11-27-2022 Coarse Granular Casts LM.LPF (Urine sed) [#/Area] 0-1 [LPF] 0-1 [facility] Color Auto (U)Ordered By: Donna Tripathi on 11-27-2022 Color (U) Dark yellow Yellow [facility] Complete Blood Count Auto Di ffon 11-27-2022 Basophils (Bld) [#/Vol] 0.2 10*3/uL Normal 0.0-0.2 [facility] Comment on above: Result Comment: PERF ORMED BY: [place] [address] PATHOLOGIST EDITOR SOUND KELLIE ALVARADO M.D. Performed By: #### H S TROP, CMP, ETOH, CBC, TSH3 #### [facility] [address] [place] [address] Basophils/100 WBC (Bld) 3.0 % Normal . [facility] Comment on above: Performed By: #### H S TROP, CMP, ETOH, CBC, TSH3 #### [facility] [address] [place] [address] Eosinophils (Bld) [#/Vol] 0.1 10*3/uL Normal 0.0-0.45 [facility] Comment on above: Performed By: #### H S TROP, CMP, ETOH, CBC, TSH3 #### [address] Eosinophils/100 WBC (Bld) 1.1 % Normal . [facility] Comment on above: Performed By: #### H S TROP, CMP, ETOH, CBC, TSH3 #### [facility] [address] [place] [address] Erythrocyte distribution width (RBC) [Ratio] 15.9 % High 11.9-15.3 [facility] Comment on above: Performed By: #### H S TROP, CMP, ETOH, CBC, TSH3 #### [facility] [address] [place] [address] Hematocrit (Bld) [Volume fraction] 38.0 % Normal 34.0-46.4 [facility] Comment on above: Performed By: #### H S TROP, CMP, ETOH, CBC, TSH3 #### [address] Hemoglobin (Bld) [Mass/Vol] 12.5 g/dL Normal 11.8-15.4 [facility] Comment on above: Performed By: #### H S TROP, CMP, ETOH, CBC, TSH3 #### [address] Lymphocytes (Bld) [#/Vol] 0.8 10*3/uL Low 1.00-4.8 [facility] Comment on above: Performed By: #### H S TROP, CMP, ETOH, CBC, TSH3 #### [address] Lymphocytes/100 WBC (Bld) 11.3 % Normal . [facility] Comment on above: Performed By: #### H S TROP, CMP, ETOH, CBC, TSH3 #### [address] MCH (RBC) [Entitic mass] 28.8 pg Normal 24.7-34.3 [facility] Comment on above: Performed By: #### H S TROP, CMP, ETOH, CBC, TSH3 #### [address] MCV (RBC) [Entitic vol] 87.5 fL Normal 80-100 [facility] Comment on above: Performed By: #### H S TROP, CMP, ETOH, CBC, TSH3 #### [address] Mean Corpuscular HGB Conc 33.0 g/dL Normal 32.0-35.0 [facility] Comment on above: Performed By: #### H S TROP, CMP, ETOH, CBC, TSH3 #### [address] Monocytes (Bld) [#/Vol] 0.6 10*3/uL Normal 0.0-0.8 [facility] Comment on above: Performed By: #### H S TROP, CMP, ETOH, CBC, TSH3 #### [address] Monocytes/100 WBC (Bld) 17.41 % Normal 0.00-20.00 [facility] Comment on above: Performed By: #### H S TROP, CMP, ETOH, CBC, TSH3 #### [address] Monocytes/100 WBC (Bld) 8.9 % Normal . [facility] Comment on above: Performed By: #### H S TROP, CMP, ETOH, CBC, TSH3 #### [address] Neutrophils (Bld) [#/Vol] 5.1 10*3/uL Normal 1.8-7.7 [facility] Comment on above: Performed By: #### H S TROP, CMP, ETOH, CBC, TSH3 #### [address] Neutrophils/100 WBC (Bld) 75.7 % Normal . [facility] Comment on above: Performed By: #### H S TROP, CMP, ETOH, CBC, TSH3 #### [address] NRBC% 0.0 /100{WBC} Normal 0-0.5 [facility] Comment on above: Performed By: #### H S TROP, CMP, ETOH, CBC, TSH3 #### [address] Platelet mean volume (Bld) [Entitic vol] 7.1 fL Normal 6.3-10.7 [facility] Comment on above: Performed By: #### H S TROP, CMP, ETOH, CBC, TSH3 #### [address] Platelets (Bld) [#/Vol] 402 10*3/uL Normal 150-450 [facility] Comment on above: Performed By: #### H S TROP, CMP, ETOH, CBC, TSH3 #### [address] RBC (Bld) [#/Vol] 4.34 10*6/uL Normal 3.60-5.00 [facility] Comment on above: Performed By: #### H S TROP, CMP, ETOH, CBC, TSH3 #### [address] WBC (Bld) [#/Vol] 6.7 10*3/uL Normal 3.8-11.6 [facility] Comment on above: Performed By: #### H S TROP, CMP, ETOH, CBC, TSH3 #### [address] Comprehensive Metabolic Pane shaji 11-27-2022 Albumin [Mass/Vol] 4.2 g/dL Normal 3.5-5.7 [facility] Comment on above: Performed By: #### H S TROP, CMP, ETOH, CBC, TSH3 #### [address] Albumin/Globulin [Mass ratio] 1.4 {ratio} Normal [facility] Comment on above: Performed By: #### H S TROP, CMP, ETOH, CBC, TSH3 #### [address] ALP [Catalytic activity/Vol] 56 U/L Normal 34-104 [facility] Comment on above: Performed By: #### H S TROP, CMP, ETOH, CBC, TSH3 #### [address] ALT [Catalytic activity/Vol] 19 U/L Normal 7-52 [facility] Comment on above: Performed By: #### H S TROP, CMP, ETOH, CBC, TSH3 #### [address] Anion gap [Moles/Vol] 15.4 mmol/L High 6.0-15.0 [facility] Comment on above: Performed By: #### H S TROP, CMP, ETOH, CBC, TSH3 #### [facility] [address] AST [Catalytic activity/Vol] 31 U/L Normal 13-39 [facility] Comment on above: Performed By: #### H S TROP, CMP, ETOH, CBC, TSH3 #### [facility] [address] Bilirubin [Mass/Vol] 0.7 mg/dL Normal 0.3-1.0 [facility] Comment on above: Performed By: #### H S TROP, CMP, ETOH, CBC, TSH3 #### [facility] [address] Calcium [Mass/Vol] 9.4 mg/dL Normal 8.6-10.3 [facility] Comment on above: Performed By: #### H S TROP, CMP, ETOH, CBC, TSH3 #### [facility] [address] Chloride [Moles/Vol] 101 mmol/L Normal 98-107 [facility] Comment on above: Performed By: #### H S TROP, CMP, ETOH, CBC, TSH3 #### [address] CO2 [Moles/Vol] 24.9 mmol/L Normal 21.0-31.0 [facility] Comment on above: Performed By: #### H S TROP, CMP, ETOH, CBC, TSH3 #### [facility] [address] [place] [address] [place] Creatinine [Mass/Vol] 0.83 mg/dL Normal 0.60-1.20 [facility] Comment on above: Performed By: #### H S TROP, CMP, ETOH, CBC, TSH3 #### [facility] [address] [place] [address] [place] Creatinine Clr Calc Pharmacy 110.58 Normal [facility] Comment on above: Performed By: #### H S TROP, CMP, ETOH, CBC, TSH3 #### [facility] [address] [place] [address] [place] GFR/1.73 sq M.predicted MDRD (S/P/Bld) [Vol rate/Area] mL/min/{1.73_m2} Normal [facility] Comment on above: Performed By: #### H S TROP, CMP, ETOH, CBC, TSH3 #### [facility] [address] Globulin (S) [Mass/Vol] 2.9 g/dL Normal [facility] Comment on above: Performed By: #### H S TROP, CMP, ETOH, CBC, TSH3 #### [facility] [address] Glucose [Mass/Vol] 82 mg/dL Normal 70-100 [facility] Comment on above: Result Comment: [facility] Glucose Reference Range is dependent on time and content of last meal. Glucose of more than 200 mg/dL in a nonstressed, ambulatory subject supports the diagnosis of Diabetes Mellitus. ADA recommended reference range Performed By: #### H S TROP, CMP, ETOH, CBC, TSH3 #### [facility] [address] Potassium [Moles/Vol] 3.3 mmol/L Low 3.5-5.1 [facility] Comment on above: Performed By: #### H S TROP, CMP, ETOH, CBC, TSH3 #### [address] Protein [Mass/Vol] 7.1 g/dL Normal 6.4-8.9 [facility] Comment on above: Performed By: #### H S TROP, CMP, ETOH, CBC, TSH3 #### [facility] [address] [place] [address] [place] Sodium [Moles/Vol] 138 mmol/L Normal 136-145 [facility] Comment on above: Performed By: #### H S TROP, CMP, ETOH, CBC, TSH3 #### [facility] [address] Urea nitrogen [Mass/Vol] 9 mg/dL Normal 7-25 [facility] Comment on above: Performed By: #### H S TROP, CMP, ETOH, CBC, TSH3 #### [facility] [address] [place] [address] Creatinine [Mass/volume] in Serum or PlasmaOrdered By: Sara Tripathi on 11-27-2022 Creatinine [Mass/Vol] 0.83 mg/dL 0.60-1.20 [facility] Dipstick and Microscopicon 1 Appearance (U) Turbid Critically abnormal Clear [facility] Comment on above: Order Comment: Name Collection Type:: Clean-Voided Midstream Performed By: #### H S TROP, CMP, ETOH, CBC, TSH3 #### [facility] [address] [place] [address] Bacteria,Urine 4+ High None Seen [facility] Comment on above: Order Comment: Name Collection Type:: Clean-Voided Midstream Performed By: #### H S TROP, CMP, ETOH, CBC, TSH3 #### [facility] [address] [place] [address] Bilirubin,Urine Negative Normal Negative [facility] Comment on above: Order Comment: Name Collection Type:: Clean-Voided Midstream Performed By: #### H S TROP, CMP, ETOH, CBC, TSH3 #### [facility] [address] [place] [address] Coarse Granular Casts,Urine 0-1 Normal 0-1 [facility] Comment on above: Order Comment: Name Collection Type:: Clean-Voided Midstream Performed By: #### H S TROP, CMP, ETOH, CBC, TSH3 #### [facility] [address] [place] [address] Color (U) Dark Yellow Critically abnormal Yellow [facility] Comment on above: Order Comment: Name Collection Type:: Clean-Voided Midstream Performed By: #### H S TROP, CMP, ETOH, CBC, TSH3 #### [facility] [address] [place] [address] Fine Granular Casts,Urine 0-1 Normal 0-1 [facility] Comment on above: Order Comment: Name Collection Type:: Clean-Voided Midstream Performed By: #### H S TROP, CMP, ETOH, CBC, TSH3 #### [facility] [address] [place] [address] Glucose Ql (U) Normal Normal Normal [facility] Comment on above: Order Comment: Name Collection Type:: Clean-Voided Midstream Performed By: #### H S TROP, CMP, ETOH, CBC, TSH3 #### [address] Hyaline Casts,Urine None Seen Normal 0-1 [facility] Comment on above: Order Comment: Name Collection Type:: Clean-Voided Midstream Performed By: #### H S TROP, CMP, ETOH, CBC, TSH3 #### [address] Ketones Ql (U) Negative Normal Negative [facility] Comment on above: Order Comment: Name Collection Type:: Clean-Voided Midstream Performed By: #### H S TROP, CMP, ETOH, CBC, TSH3 #### [address] Leukocyte esterase Test strip Ql (U) 2+ High Negative [facility] Comment on above: Order Comment: Name Collection Type:: Clean-Voided Midstream Performed By: #### H S TROP, CMP, ETOH, CBC, TSH3 #### [address] Nitrite,Urine Negative Normal Negative [facility] Comment on above: Order Comment: Name Collection Type:: Clean-Voided Midstream Performed By: #### H S TROP, CMP, ETOH, CBC, TSH3 #### [address] Occult Blood,Urine 1+ High Negative [facility] Comment on above: Order Comment: Name Collection Type:: Clean-Voided Midstream Performed By: #### H S TROP, CMP, ETOH, CBC, TSH3 #### [address] Other Casts,Urine None Seen Normal None Seen [facility] Comment on above: Order Comment: Name Collection Type:: Clean-Voided Midstream Performed By: #### H S TROP, CMP, ETOH, CBC, TSH3 #### [address] pH (U) 5.0 [pH] Normal 5.0-9.0 [facility] Comment on above: Order Comment: Name Collection Type:: Clean-Voided Midstream Performed By: #### H S TROP, CMP, ETOH, CBC, TSH3 #### [address] Protein,Urine Trace High Negative [facility] Comment on above: Order Comment: Name Collection Type:: Clean-Voided Midstream Performed By: #### H S TROP, CMP, ETOH, CBC, TSH3 #### [address] RBC,Urine 5-9 High 0-4 [facility] Comment on above: Order Comment: Name Collection Type:: Clean-Voided Midstream Performed By: #### H S TROP, CMP, ETOH, CBC, TSH3 #### [address] Specificy [place],Urine 1.023 Normal 1.001-1.030 [facility] Comment on above: Order Comment: Name Collection Type:: Clean-Voided Midstream Performed By: #### H S TROP, CMP, ETOH, CBC, TSH3 #### [address] Squamous Epithelial Cell,Urine 20-30 High 0-2 [facility] Comment on above: Order Comment: Name Collection Type:: Clean-Voided Midstream Performed By: #### H S TROP, CMP, ETOH, CBC, TSH3 #### [address] Urobilinogen,Urine Normal Normal Normal [facility] Comment on above: Order Comment: Name Collection Type:: Clean-Voided Midstream Performed By: #### H S TROP, CMP, ETOH, CBC, TSH3 #### [address] WBC,Urine 50-100 High 0-4 [facility] Comment on above: Order Comment: Name Collection Type:: Clean-Voided Midstream Performed By: #### H S TROP, CMP, ETOH, CBC, TSH3 #### [address] Drug Screen,Urineon 11-28-19 23 Amphetamine Screen,Urine Negative Normal Negative [facility] Comment on above: Performed By: #### H S TROP, CMP, ETOH, CBC, TSH3 #### [address] Barbiturate Screen,Urine Negative Normal Negative [facility] Comment on above: Performed By: #### H S TROP, CMP, ETOH, CBC, TSH3 #### [address] Benzodiazepines Screen,Urine Negative Normal Negative [facility] Comment on above: Performed By: #### H S TROP, CMP, ETOH, CBC, TSH3 #### [address] Cannabinoid Screen,Urine Positive High Negative [facility] Comment on above: Result Comment: Thes e are unconfirmed results and should not be used for legal purposes. Drug Cut-Off Concentration: AMPH 1000 ng/mL CARMELLA 200 ng/mL GERMAN 200 ng/mL COCM 300 ng/mL OP 300 ng/mL PCP 25 ng/mL THC 20 ng/mL PERFORMED BY: [place] [address] PATHOLOGIST EDITOR SOUND KELLIE ALVARADO M.D. Performed By: #### H S TROP, CMP, ETOH, CBC, TSH3 #### [address] Cocaine Screen,Urine Negative Normal Negative [facility] Comment on above: Performed By: #### H S TROP, CMP, ETOH, CBC, TSH3 #### [address] Opiate Screen,Urine Negative Normal Negative [facility] Comment on above: Performed By: #### H S TROP, CMP, ETOH, CBC, TSH3 #### [address] Phencyclidine Screen,Urine Negative Normal Negative [facility] Comment on above: Performed By: #### H S TROP, CMP, ETOH, CBC, TSH3 #### [facility] [address] ECG 12 lead ECGon 11-27-2022 ECG [address] [facility] [place] [address] [place] [address] Electrocardiograph Report Signed Patient: Antoinette Recio MR#: [id number] : 1995 Acct:[id number] Age/Sex: 27 / F ADM Date: 11/27/22 Loc: ER Room: Type: [facility] ER Attending Dr: Ordering Provider: Sara [...] By Sara Tripathi MD 11/27/22 1505 Normal [facility] Eosinophils Auto (Bld) [#/Vo l]Ordered By: Sara Tripathi on 11-27-2022 Eosinophils (Bld) [#/Vol] 0.1 10*3/uL 0.0-0.45 [facility] Eosinophils/100 WBC Auto (Bl d)Ordered By: Sara Tripathi on 11-27-2022 Eosinophils/100 WBC (Bld) 1.1 % . [facility] Erythrocyte distribution wid th Auto (RBC) [Ratio]Ordered By: Sara Tripathi on 11-27-2022 Erythrocyte distribution width (RBC) [Ratio] 15.9 % 11.9-15.3 [facility] Ethanol [Mass/volume] in Ser um or PlasmaOrdered By: Sara Tripathi on 11-27-2022 Ethanol [Mass/Vol] 26 mg/dL [facility] Ethanol [Mass/Vol] 0.026 % [facility] Ethyl Alcohol Profileon 11-09 Ethanol [Mass/Vol] 26 mg/dL Normal [facility] Comment on above: Performed By: #### H S TROP, CMP, ETOH, CBC, TSH3 #### [facility] [address] [place] [address] [place] Percent Ethanol 0.026 % Normal [facility] Comment on above: Result Comment: PERF ORMED BY: [place] [address] PATHOLOGIST EDITOR SOUND KELLIE ALVARADO M.D. Performed By: #### H S TROP, CMP, ETOH, CBC, TSH3 #### [facility] [address] Fine granular cast count in urine sediment by microscopy (number/low power field )Ordered By: Sara Tripathi on 11-27-2022 Fine Granular Casts LM.LPF (Urine sed) [#/Area] 0-1 [LPF] 0-1 [facility] Globulin Calc (S) [Mass/Vol] Ordered By: Sara Tripathi on 11-27-2022 Globulin (S) [Mass/Vol] 2.9 g/dL [facility] Glucose [Mass/volume] in Ser um or PlasmaOrdered By: Sara Tripathi on 11-27-2022 Glucose [Mass/Vol] 82 mg/dL 70-100 [facility] Comment on above: ADA recommended refe rence rangeRandom Glucose Reference Range is dependent on time and content of last meal. Glucose of more than 200 mg/dL in a nonstressed, ambulatory subject supports the diagnosis of Diabetes Mellitus. HCG ( test) Fany dotson Ql (U)Ordered By: Sara Tripathi on 11-27-2022 HCG ( test) Ql (U) Negative [facility] HCG,Urineon 11-27-2022 Beta HCG ( test) Ql (U) Negative Normal [facility] Comment on above: Order Comment: Name Collection Type:: Clean-Voided Midstream Result Comment: PERF ORMED BY: [facility] [address] [place] [address] PATHOLOGIST EDITOR SOUND KELLIE ALVARADO M.D. Performed By: #### H S TROP, CMP, ETOH, CBC, TSH3 #### [facility] [address] Hematocrit Auto (Bld) [Volum e fraction]Ordered By: Sara Tripathi on 11-27-2022 Hematocrit (Bld) [Volume fraction] 38.0 % 34.0-46.4 [facility] Hemoglobin [Mass/volume] in BloodOrdered By: Sara Tripathi on 11-27-2022 Hemoglobin (Bld) [Mass/Vol] 12.5 g/dL 11.8-15.4 [facility] Ketones Auto test strip (U) [Mass/Vol]Ordered By: Sara Tripathi on 11-27-2022 Ketones (U) [Mass/Vol] Negative Negative [facility] Leukocytes [#/volume] correc christelle for nucleated erythrocytes in Blood by Automated counOrdered By: Sara Tripathi on 11-27-2022 WBC corrected for nucl RBC Auto (Bld) [#/Vol] 6.7 10*3/uL 3.8-11.6 [facility] Lymphocytes Auto (Bld) [#/Vo l]Ordered By: Sara Tripathi on 11-27-2022 Lymphocytes (Bld) [#/Vol] 0.8 10*3/uL 1.00-4.8 [facility] Lymphocytes/100 WBC Auto (Bl d)Ordered By: Sara Tripathi on 11-27-2022 Lymphocytes/100 WBC (Bld) 11.3 % . [facility] MCH Auto (RBC) [Entitic mass ]Ordered By: Sara Tripathi on 11-27-2022 MCH (RBC) [Entitic mass] 28.8 pg 24.7-34.3 [facility] MCHC Auto (RBC) [Mass/Vol]Or dered By: Sara Tripathi on 11-27-2022 MCHC (RBC) [Mass/Vol] 33.0 g/dL 32.0-35.0 [facility] MCV Auto (RBC) [Entitic vol] Ordered By: Sara Tripathi on 11-27-2022 MCV (RBC) [Entitic vol] 87.5 fL 80-100 [facility] Monocyte distribution width [Entitic volume] in Blood by AutomatedOrdered By: Sara Tripathi on 11-27-2022 Monocyte distribution width Auto (Bld) [Entitic vol] 17.41 % 0.00-20.00 [facility] Monocytes Auto (Bld) [#/Vol] Ordered By: Sara Tripathi on 11-27-2022 Monocytes (Bld) [#/Vol] 0.6 10*3/uL 0.0-0.8 [facility] Monocytes/100 WBC Auto (Bld) Ordered By: Sara Tripathi on 11-27-2022 Monocytes/100 WBC (Bld) 8.9 % . [facility] Neutrophils Auto (Bld) [#/Vo l]Ordered By: Sara Tripathi on 11-27-2022 Neutrophils (Bld) [#/Vol] 5.1 10*3/uL 1.8-7.7 [facility] Neutrophils/100 WBC Auto (Bl d)Ordered By: Sara Tripathi on 11-27-2022 Neutrophils/100 WBC (Bld) 75.7 % . [facility] Nitrite Test strip Ql (U)Ord ered By: Sara Tripathi on 11-27-2022 Nitrite Ql (U) Negative Negative [facility] No Panel InformationOrdered By: Sara Tripathi on 11-27-2022 Estimated GFR (CKD-EPI) > 60.0 mL/Min [facility] Creatinine Clearance (Chem 110.58 [facility] Nucleated erythrocytes [Pres ence] in Blood by Automated countOrdered By: Sara Tripathi on 11-27-2022 Nucleated RBC Auto Ql (Bld) 0.0 /100{WBC} 0-0.5 [facility] Opiates [Presence] in Urine by Screen methodOrdered By: Sara Tripathi on 11-27-2022 Opiates Screen Ql (U) Negative Negative [facility] Phencyclidine Screen Ql (U)O rdered By: Sara Tripathi on 11-27-2022 Phencyclidine Ql (U) Negative Negative [facility] Platelet mean volume Auto (B ld) [Entitic vol]Ordered By: Sara Tripathi on 11-27-2022 Platelet mean volume (Bld) [Entitic vol] 7.1 fL 6.3-10.7 [facility] Platelets Auto (Bld) [#/Vol] Ordered By: Sara Tripathi on 11-27-2022 Platelets (Bld) [#/Vol] 402 10*3/uL 150-450 [facility] Potassium [Moles/volume] in Serum or PlasmaOrdered By: Sara Tripathi on 11-27-2022 Potassium [Moles/Vol] 3.3 mmol/L 3.5-5.1 [facility] Protein Auto test strip (U) [Mass/Vol]Ordered By: Sara Tripathi on 11-27-2022 Protein (U) [Mass/Vol] Trace mg/dL Negative [facility] Protein [Mass/volume] in Ser um or PlasmaOrdered By: Sara Tripathi on 11-27-2022 Protein [Mass/Vol] 7.1 g/dL 6.4-8.9 [facility] RBC Auto (Bld) [#/Vol]Ordere d By: Sara Tripathi on 11-27-2022 RBC (Bld) [#/Vol] 4.34 10*6/uL 3.60-5.00 [facility] Serum or plasma albumin/glob ulin mass ratioOrdered By: Sara Tripathi on 11-27-2022 Albumin/Globulin [Mass ratio] 1.4 {ratio} [facility] Serum or plasma anion gap de terminationOrdered By: Sara Tripathi on 11-27-2022 Anion gap [Moles/Vol] 15.4 mmol/L 6.0-15.0 [facility] Sodium [Moles/volume] in Ser um or PlasmaOrdered By: Sara Tripathi on 11-27-2022 Sodium [Moles/Vol] 138 mmol/L 136-145 [facility] Specific gravity Auto test s trip (U) [Rel density]Ordered By: Sara Tripathi on 11-27-2022 Specific gravity (U) [Rel density] 1.023 1.001-1.030 [facility] Squamous epithelial cells de tection in urine sediment by light microscopyOrdered By: Sara Tripathi on 11-27-2022 Epithelial cells.squamous LM Ql (Urine sed) 20-30 [HPF] 0-2 [facility] Thyroid Stimulating Hormoneo n 11-27-2022 TSH Qn 2.35 m[IU]/L Normal 0.45-5.33 [facility] Comment on above: Result Comment: PERF ORMED BY: [place] [address] PATHOLOGIST EDITOR SOUND KELLIE ALVARADO M.D. Performed By: #### H S TROP, CMP, ETOH, CBC, TSH3 #### [facility] [address] [place], [place] [id number] [facility] Thyrotropin [Units/volume] i n Serum or PlasmaOrdered By: Sara Tripathi on 11-27-2022 TSH Qn 2.35 m[IU]/L 0.45-5.33 [facility] Troponin I High Sensitivityo n 11-27-2022 Troponin I High Sensitivity 3.2 pg/mL Normal 0.0-15.0 [facility] Comment on above: Result Comment: PERF ORMED BY: [place] [address] PATHOLOGIST EDITOR SOUND KELLIE ALVARADO M.D. Performed By: #### H S TROP, CMP, ETOH, CBC, TSH3 #### [facility] [address] [place] [address] Troponin I.cardiac [Mass/vol ume] in Serum or Plasma by Detection limit <= 0.01 ng/Ordered By: Sara Tripathi on 11-27-2022 Troponin I.cardiac DL <= 0.01 ng/mL [Mass/Vol] 3.2 pg/mL 0.0-15.0 [facility] Urea nitrogen [Mass/volume] in Serum or PlasmaOrdered By: Sara Tripathi on 11-27-2022 Urea nitrogen [Mass/Vol] 9 mg/dL 7 [facility] Urine Cultureon 11-27-2022 Bacteria identified Cx Nom (U) ORGANISM: Escherichia coli (O:ESCCOL) [place] Count >100,000 Aerobic GLENDA Charge (NMIC56) --- [...] RESISTANT TO ALL B-LACTAM DRUGS. PERFORMED BY: [place] [address] PATHOLOGIST EDITOR SOUND KELLIE ALVARADO M.D. Normal [facility] Comment on above: Performed By: #### H S TROP, CMP, ETOH, CBC, TSH3 #### [facility] [address] [place] [address] [place] Urine bacteria detection by automated methodOrdered By: Sara Tripathi on 11-27-2022 Bacteria Auto Ql (U) 4+ None Seen [facility] Urine clarity by refractomet ry automatedOrdered By: Sara Tripathi on 11-27-2022 Clarity Refractometry automated (U) Turbid Clear [facility] Urine culture routineOrdered By: Sara Tripathi on 11-27-2022 Bacteria identified Cx Nom (U) Escherichia coli [facility] Urine glucose measurement by automated test strip (mass/volume)Ordered By: Sara Tripathi on 11-27-2022 Glucose Auto test strip (U) [Mass/Vol] Normal mg/dL Normal [facility] Urine hemoglobin detection b y automated test stripOrdered By: Sara Tripathi on 11-27-2022 Hemoglobin Auto test strip Ql (U) 1+ Negative [facility] Urine leukocyte esterase det ection by automated test stripOrdered By: Sara Tripathi on 11-27-2022 Leukocyte esterase Auto test strip Ql (U) 2+ Negative [facility] Urobilinogen Auto test strip (U) [Mass/Vol]Ordered By: Sara Tripathi on 11-27-2022 Urobilinogen (U) [Mass/Vol] Normal mg/dL Normal [facility] WBC Auto (Bld) [#/Vol]Ordere d By: Sara Tripathi on 11-27-2022 WBC (Bld) [#/Vol] 6.7 10*3/uL 3.8-11.6 [facility] XR chest 1V portableon 11-27 [address]V [address] [facility] [address] XRay Report Signed Patient: Antoinette Recio MR#: [id number] : 1995 Acct:[id number] Age/Sex: 27 / F ADM Date: 11/27/22 Loc: ER Room: Type: [facility] ER Attending Dr: Copies to: Sara [...] Vipul Rucker M.D.11/27/2022 11:05 AM Dictation Location: [place] [address] Transcribed By: [facility] 11/27/22 1104 Dictated By: Vipul Rucker II, MD 11/27/22 1104 Signed By: 11/27/22 1105 Normal [facility] pH Auto test strip (U)Ordere d By: Sara Tripathi on 11-27-2022 pH (U) 5.0 [pH] 5.0-9.0 [facility] Alanine aminotransferase [En zymatic activity/volume] in Serum or PlasmaOrdered By: Ji Smith on 05-11-2022 ALT [Catalytic activity/Vol] 27 U/L 7-52 [facility] Albumin [Mass/volume] in Ser um or Plasma by Bromocresol green (BCG) dye binding methoOrdered By: Ji Smith on 05-11-2022 Albumin BCG dye [Mass/Vol] 4.5 g/dL 3.5-5.7 [facility] Alkaline phosphatase [Enzyma tic activity/volume] in Serum or PlasmaOrdered By: Ji Smith on 05-11-2022 ALP [Catalytic activity/Vol] 51 U/L 34-104 [facility] Aspartate aminotransferase [ Enzymatic activity/volume] in Serum or PlasmaOrdered By: Ji Smith on 05-11-2022 AST [Catalytic activity/Vol] 33 U/L 13-39 [facility] Bilirubin.total [Mass/volume ] in Serum or PlasmaOrdered By: Ji Smith on 05-11-2022 Bilirubin [Mass/Vol] 0.7 mg/dL 0.3-1.0 [facility] Calcium [Mass/volume] in Ser um or PlasmaOrdered By: Ji Smith on 05-11-2022 Calcium [Mass/Vol] 9.7 mg/dL 8.6-10.3 [facility] Carbon dioxide, total [Moles /volume] in Serum or PlasmaOrdered By: Ji Smith on 05-11-2022 CO2 [Moles/Vol] 25.8 mmol/L 21.0-31.0 [facility] Chloride [Moles/volume] in S phil or PlasmaOrdered By: Ji Smith on 05-11-2022 Chloride [Moles/Vol] 102 mmol/L 98-107 [facility] Comprehensive Metabolic Pane shaji 05-11-2022 Albumin [Mass/Vol] 4.5 g/dL Normal 3.5-5.7 [facility] Comment on above: Performed By: #### H S TROP, CMP, ETOH, CBC, TSH3 #### [facility] [address] Albumin/Globulin [Mass ratio] 1.7 {ratio} Normal [facility] Comment on above: Performed By: #### H S TROP, CMP, ETOH, CBC, TSH3 #### [address] ALP [Catalytic activity/Vol] 51 U/L Normal 34-104 [facility] Comment on above: Performed By: #### H S TROP, CMP, ETOH, CBC, TSH3 #### [address] ALT [Catalytic activity/Vol] 27 U/L Normal 7-52 [facility] Comment on above: Performed By: #### H S TROP, CMP, ETOH, CBC, TSH3 #### [address] Anion gap [Moles/Vol] 13.8 mmol/L Normal 6.0-15.0 [facility] Comment on above: Performed By: #### H S TROP, CMP, ETOH, CBC, TSH3 #### [address] AST [Catalytic activity/Vol] 33 U/L Normal 13-39 [facility] Comment on above: Performed By: #### H S TROP, CMP, ETOH, CBC, TSH3 #### [facility] [address] [place] [address] Bilirubin [Mass/Vol] 0.7 mg/dL Normal 0.3-1.0 [facility] Comment on above: Performed By: #### H S TROP, CMP, ETOH, CBC, TSH3 #### [place] [address] [place] Calcium [Mass/Vol] 9.7 mg/dL Normal 8.6-10.3 [facility] Comment on above: Performed By: #### H S TROP, CMP, ETOH, CBC, TSH3 #### [facility] [address] Chloride [Moles/Vol] 102 mmol/L Normal 98-107 [facility] Comment on above: Performed By: #### H S TROP, CMP, ETOH, CBC, TSH3 #### [facility] [address] CO2 [Moles/Vol] 25.8 mmol/L Normal 21.0-31.0 [facility] Comment on above: Performed By: #### H S TROP, CMP, ETOH, CBC, TSH3 #### [address] Creatinine [Mass/Vol] 0.68 mg/dL Normal 0.60-1.20 [facility] Comment on above: Performed By: #### H S TROP, CMP, ETOH, CBC, TSH3 #### [address] Creatinine Clr Calc Pharmacy 129.74 [facility] Comment on above: Result Comment: PERF ORMED BY: [place] [address] PATHOLOGIST EDITOR SOUND KELLIE ALVARADO M.D. Performed By: #### H S TROP, CMP, ETOH, CBC, TSH3 #### [address] GFR/1.73 sq M.predicted MDRD (S/P/Bld) [Vol rate/Area] mL/min/{1.73_m2} [facility] Comment on above: Performed By: #### H S TROP, CMP, ETOH, CBC, TSH3 #### [facility] [address] Globulin (S) [Mass/Vol] 2.7 g/dL Normal [facility] Comment on above: Performed By: #### H S TROP, CMP, ETOH, CBC, TSH3 #### [facility] [address] [place] [address] [place] Glucose [Mass/Vol] 93 mg/dL Normal 70-100 [facility] Comment on above: Result Comment: [place] Glucose Reference Range is dependent on time and content of last meal. Glucose of more than 200 mg/dL in a nonstressed, ambulatory subject supports the diagnosis of Diabetes Mellitus. ADA recommended reference range Performed By: #### H S TROP, CMP, ETOH, CBC, TSH3 #### [facility] [address] Potassium [Moles/Vol] 3.6 mmol/L Normal 3.5-5.1 [facility] Comment on above: Performed By: #### H S TROP, CMP, ETOH, CBC, TSH3 #### [facility] [address] Protein [Mass/Vol] 7.2 g/dL Normal 6.4-8.9 [facility] Comment on above: Performed By: #### H S TROP, CMP, ETOH, CBC, TSH3 #### [facility] [address] [place] [address] [place] Sodium [Moles/Vol] 138 mmol/L Normal 136-145 [facility] Comment on above: Performed By: #### H S TROP, CMP, ETOH, CBC, TSH3 #### [facility] [address] [place] [address] [place] Urea nitrogen [Mass/Vol] 11 mg/dL Normal 7-25 [facility] Comment on above: Performed By: #### H S TROP, CMP, ETOH, CBC, TSH3 #### [facility] [address] [place] [address] [place] Creatinine [Mass/volume] in Serum or PlasmaOrdered By: Ji Smith on 05-11-2022 Creatinine [Mass/Vol] 0.68 mg/dL 0.60-1.20 [facility] Globulin Calc (S) [Mass/Vol] Ordered By: Ji Smith on 05-11-2022 Globulin (S) [Mass/Vol] 2.7 g/dL [facility] Glucose [Mass/volume] in Ser um or PlasmaOrdered By: Ji Smith on 05-11-2022 Glucose [Mass/Vol] 93 mg/dL 70-100 [facility] Comment on above: ADA recommended refe rence rangeRandom Glucose Reference Range is dependent on time and content of last meal. Glucose of more than 200 mg/dL in a nonstressed, ambulatory subject supports the diagnosis of Diabetes Mellitus. No Panel InformationOrdered By: Ji Smith on 05-11-2022 Estimated GFR (CKD-EPI) > 60.0 mL/Min [facility] Creatinine Clearance (Chem 129.74 [facility] Potassium [Moles/volume] in Serum or PlasmaOrdered By: Ji Smith on 05-11-2022 Potassium [Moles/Vol] 3.6 mmol/L 3.5-5.1 [facility] Protein [Mass/volume] in Ser um or PlasmaOrdered By: Ji Smith on 05-11-2022 Protein [Mass/Vol] 7.2 g/dL 6.4-8.9 [facility] Serum or plasma albumin/glob ulin mass ratioOrdered By: Ji Smith on 05-11-2022 Albumin/Globulin [Mass ratio] 1.7 {ratio} [facility] Serum or plasma anion gap de terminationOrdered By: iJ Smith on 05-11-2022 Anion gap [Moles/Vol] 13.8 mmol/L 6.0-15.0 [facility] Sodium [Moles/volume] in Ser um or PlasmaOrdered By: Ji Smith on 05-11-2022 Sodium [Moles/Vol] 138 mmol/L 136-145 [facility] Urea nitrogen [Mass/volume] in Serum or PlasmaOrdered By: Ji Smith on 05-11-2022 Urea nitrogen [Mass/Vol] 11 mg/dL 7-25 [facility] Acetaminophenon 05-09-2022 Acetaminophen [Mass/Vol] 1.1 ug/mL Low 10.0-30.0 [facility] Comment on above: Result Comment: PERF ORMED BY: [place] [address] PATHOLOGIST EDITOR SOUND KELLIE ALVARADO M.D. Performed By: #### A CET, JAMIE #### [address] Acetaminophen [Mass/volume] in Serum or PlasmaOrdered By: Henry Hernandez on 05-09-2022 Acetaminophen [Mass/Vol] 1.1 ug/mL 10.0-30.0 [facility] Alanine aminotransferase [En zymatic activity/volume] in Serum or PlasmaOrdered By: Henry Hernandez on 05-09-2022 ALT [Catalytic activity/Vol] 40 U/L 7-52 [facility] Albumin [Mass/volume] in Ser um or Plasma by Bromocresol green (BCG) dye binding methoOrdered By: Henry Hernandez on 05-09-2022 Albumin BCG dye [Mass/Vol] 5.0 g/dL 3.5-5.7 [facility] Alkaline phosphatase [Enzyma tic activity/volume] in Serum or PlasmaOrdered By: Henry Hernandez on 05-09-2022 ALP [Catalytic activity/Vol] 61 U/L 34-104 [facility] Amphetamine Screen Ql (U)Ord ered By: Henry Hernandez on 05-09-2022 Amphetamines Ql (U) Negative Negative [facility] Aspartate aminotransferase [ Enzymatic activity/volume] in Serum or PlasmaOrdered By: Henry Hernandez on 05-09-2022 AST [Catalytic activity/Vol] 71 U/L 13-39 [facility] Automated epithelial cells c ount in urine sediment (number/area)Ordered By: Henry Hernandez on 05-09-2022 Epithelial cells Auto (Urine sed) [#/Area] 0-1 [HPF] 0-2 [facility] Automated erythrocytes count in urine sediment (number/area)Ordered By: Henry Hernandez on 05-09-2022 RBC Auto (Urine sed) [#/Area] 3-4 [HPF] 0-4 [facility] Automated leukocytes count i n urine sediment (number/area)Ordered By: Henry Hernandez on 05-09-2022 WBC Auto (Urine sed) [#/Area] 0-1 [HPF] 0-4 [facility] Barbiturates [Presence] in U rine by Screen methodOrdered By: Henry Hernandez on 05-09-2022 Barbiturates Screen Ql (U) Negative Negative [facility] Basophils Auto (Bld) [#/Vol] Ordered By: Henry Hernandez on 05-09-2022 Basophils (Bld) [#/Vol] 0.1 10*3/uL 0.0-0.2 [facility] Basophils/100 WBC Auto (Bld) Ordered By: Henry Hernandez on 05-09-2022 Basophils/100 WBC (Bld) 0.9 % . [facility] Benzodiazepines Screen Ql (U )Ordered By: Henry Hernandez on 05-09-2022 Benzodiazepines Ql (U) Negative Negative [facility] Benzoylecgonine [Presence] i n Urine by Screen methodOrdered By: Henry Hernandez on 05-09-2022 Benzoylecgonine Screen Ql (U) Negative Negative [facility] Bilirubin Test strip Ql (U)O rdered By: Henry Hernandez on 05-09-2022 Bilirubin Ql (U) Negative Negative [facility] Bilirubin.total [Mass/volume ] in Serum or PlasmaOrdered By: Henry Hernandez on 05-09-2022 Bilirubin [Mass/Vol] 0.4 mg/dL 0.3-1.0 [facility] Calcium [Mass/volume] in Ser um or PlasmaOrdered By: Henry Hernandez on 05-09-2022 Calcium [Mass/Vol] 9.4 mg/dL 8.6-10.3 [facility] Cannabinoids [Presence] in U rine by Screen methodOrdered By: Henry Hernandez on 05-09-2022 Cannabinoids Screen Ql (U) Positive Negative [facility] Comment on above: These are unconfirme d results and should not be used for legal purposes. Drug Cut-Off Concentration: AMPH 1000 ng/mL CARMELLA 200 ng/mL GERMAN 200 ng/mL COCM 300 ng/mL OP 300 ng/mL PCP 25 ng/mL THC 20 ng/mL Carbon dioxide, total [Moles /volume] in Serum or PlasmaOrdered By: Henry Hernandez on 05-09-2022 CO2 [Moles/Vol] 24.5 mmol/L 21.0-31.0 [facility] Chloride [Moles/volume] in S phil or PlasmaOrdered By: Henry Hernandez on 05-09-2022 Chloride [Moles/Vol] 102 mmol/L 98-107 [facility] Cholesterol [Mass/volume] in Serum or PlasmaOrdered By: Ji Smith on 05-09-2022 Cholesterol [Mass/Vol] 336 mg/dL 140-200 [facility] Comment on above: Chol less than 200 m g/dl low riskChol 201-239 mg/dl borderline riskChol 240 mg/dl and greater high risk Cholesterol in LDL Calc [Mas s/Vol]Ordered By: Ji Smith on 05-09-2022 Cholesterol in LDL [Mass/Vol] 133 mg/dL 0-100 [facility] Comment on above: LDL ATP III CLASSIFI CATIONLDL less than 100 mg/dL OptimalLDL 100-129 mg/dL Near or above optimalLDL 130-159 mg/dL Borderline highLDL 160-189 mg/dL HighLDL greater than 189 mg/dL Very high Cholesterol in VLDL Calc [Ma ss/Vol]Ordered By: Ji Smith on 05-09-2022 Cholesterol in VLDL [Mass/Vol] 21 mg/dL [facility] Color Auto (U)Ordered By: Valerie Hernandez on 05-09-2022 Color (U) Yellow Yellow [facility] Complete Blood Count Auto Di ffon 05-09-2022 Basophils (Bld) [#/Vol] 0.1 10*3/uL Normal 0.0-0.2 [facility] Comment on above: Result Comment: PERF ORMED BY: [facility] [address] [place] [address] PATHOLOGIST EDITOR SOUND KELLIE ALVARADO M.D. Performed By: #### H S TROP, CMP, ETOH, CBC, TSH3 #### [address] Basophils/100 WBC (Bld) 0.9 % Normal . [facility] Comment on above: Performed By: #### H S TROP, CMP, ETOH, CBC, TSH3 #### [address] Eosinophils (Bld) [#/Vol] 0.1 10*3/uL Normal 0.0-0.45 [facility] Comment on above: Performed By: #### H S TROP, CMP, ETOH, CBC, TSH3 #### [address] Eosinophils/100 WBC (Bld) 1.3 % Normal . [facility] Comment on above: Performed By: #### H S TROP, CMP, ETOH, CBC, TSH3 #### [address] Erythrocyte distribution width (RBC) [Ratio] 17.8 % High 11.9-15.3 [facility] Comment on above: Performed By: #### H S TROP, CMP, ETOH, CBC, TSH3 #### [address] Hematocrit (Bld) [Volume fraction] 40.2 % Normal 34.0-46.4 [facility] Comment on above: Performed By: #### H S TROP, CMP, ETOH, CBC, TSH3 #### [address] Hemoglobin (Bld) [Mass/Vol] 13.1 g/dL Normal 11.8-15.4 [facility] Comment on above: Performed By: #### H S TROP, CMP, ETOH, CBC, TSH3 #### [address] Lymphocytes (Bld) [#/Vol] 1.4 10*3/uL Normal 1.00-4.8 [facility] Comment on above: Performed By: #### H S TROP, CMP, ETOH, CBC, TSH3 #### [address] Lymphocytes/100 WBC (Bld) 22.7 % Normal . [facility] Comment on above: Performed By: #### H S TROP, CMP, ETOH, CBC, TSH3 #### [address] MCH (RBC) [Entitic mass] 29.4 pg Normal 24.7-34.3 [facility] Comment on above: Performed By: #### H S TROP, CMP, ETOH, CBC, TSH3 #### [address] MCV (RBC) [Entitic vol] 90.0 fL Normal 80-100 [facility] Comment on above: Performed By: #### H S TROP, CMP, ETOH, CBC, TSH3 #### [address] Mean Corpuscular HGB Conc 32.7 g/dL Normal 32.0-35.0 [facility] Comment on above: Performed By: #### H S TROP, CMP, ETOH, CBC, TSH3 #### [address] Monocytes (Bld) [#/Vol] 0.4 10*3/uL Normal 0.0-0.8 [facility] Comment on above: Performed By: #### H S TROP, CMP, ETOH, CBC, TSH3 #### [address] Monocytes/100 WBC (Bld) 15.97 % Normal 0.00-20.00 [facility] Comment on above: Performed By: #### H S TROP, CMP, ETOH, CBC, TSH3 #### [address] Monocytes/100 WBC (Bld) 6.5 % Normal . [facility] Comment on above: Performed By: #### H S TROP, CMP, ETOH, CBC, TSH3 #### [address] Neutrophils (Bld) [#/Vol] 4.3 10*3/uL Normal 1.8-7.7 [facility] Comment on above: Performed By: #### H S TROP, CMP, ETOH, CBC, TSH3 #### [address] Neutrophils/100 WBC (Bld) 68.6 % Normal . [facility] Comment on above: Performed By: #### H S TROP, CMP, ETOH, CBC, TSH3 #### [address] NRBC% 0.0 /100{WBC} Normal 0-0.5 [facility] Comment on above: Performed By: #### H S TROP, CMP, ETOH, CBC, TSH3 #### [address] Platelet mean volume (Bld) [Entitic vol] 6.7 fL Normal 6.3-10.7 [facility] Comment on above: Performed By: #### H S TROP, CMP, ETOH, CBC, TSH3 #### [place] [address] [place] Platelets (Bld) [#/Vol] 330 10*3/uL Normal 150-450 [facility] Comment on above: Performed By: #### H S TROP, CMP, ETOH, CBC, TSH3 #### [place] [address] [place] RBC (Bld) [#/Vol] 4.46 10*6/uL Normal 3.60-5.00 [facility] Comment on above: Performed By: #### H S TROP, CMP, ETOH, CBC, TSH3 #### [place] [address] [place] WBC (Bld) [#/Vol] 6.3 10*3/uL Normal 3.8-11.6 [facility] Comment on above: Performed By: #### H S TROP, CMP, ETOH, CBC, TSH3 #### [address] [place] [address] [place] Comprehensive Metabolic Pane shaji 05-09-2022 Albumin [Mass/Vol] 5.0 g/dL Normal 3.5-5.7 [facility] Comment on above: Performed By: #### H S TROP, CMP, ETOH, CBC, TSH3 #### [address] Albumin/Globulin [Mass ratio] 1.8 {ratio} Normal [facility] Comment on above: Performed By: #### H S TROP, CMP, ETOH, CBC, TSH3 #### [address] ALP [Catalytic activity/Vol] 61 U/L Normal 34-104 [facility] Comment on above: Performed By: #### H S TROP, CMP, ETOH, CBC, TSH3 #### [address] ALT [Catalytic activity/Vol] 40 U/L Normal 7-52 [facility] Comment on above: Performed By: #### H S TROP, CMP, ETOH, CBC, TSH3 #### [address] Anion gap [Moles/Vol] 18.4 mmol/L High 6.0-15.0 [facility] Comment on above: Performed By: #### H S TROP, CMP, ETOH, CBC, TSH3 #### [address] AST [Catalytic activity/Vol] 71 U/L High 13-39 [facility] Comment on above: Performed By: #### H S TROP, CMP, ETOH, CBC, TSH3 #### [place] [address] [place] Bilirubin [Mass/Vol] 0.4 mg/dL Normal 0.3-1.0 [facility] Comment on above: Performed By: #### H S TROP, CMP, ETOH, CBC, TSH3 #### [address] Calcium [Mass/Vol] 9.4 mg/dL Normal 8.6-10.3 [facility] Comment on above: Performed By: #### H S TROP, CMP, ETOH, CBC, TSH3 #### [facility] [address] Chloride [Moles/Vol] 102 mmol/L Normal 98-107 [facility] Comment on above: Performed By: #### H S TROP, CMP, ETOH, CBC, TSH3 #### [facility] [address] CO2 [Moles/Vol] 24.5 mmol/L Normal 21.0-31.0 [facility] Comment on above: Performed By: #### H S TROP, CMP, ETOH, CBC, TSH3 #### [address] Creatinine [Mass/Vol] 0.76 mg/dL Normal 0.60-1.20 [facility] Comment on above: Performed By: #### H S TROP, CMP, ETOH, CBC, TSH3 #### [address] Creatinine Clr Calc Pharmacy 114.17 Normal [facility] Comment on above: Result Comment: PERF ORMED BY: [place] [address] PATHOLOGIST EDITOR SOUND KELLIE ALVARADO M.D. Performed By: #### H S TROP, CMP, ETOH, CBC, TSH3 #### [address] GFR/1.73 sq M.predicted MDRD (S/P/Bld) [Vol rate/Area] mL/min/{1.73_m2} [facility] Comment on above: Performed By: #### H S TROP, CMP, ETOH, CBC, TSH3 #### [address] Globulin (S) [Mass/Vol] 2.8 g/dL Normal [facility] Comment on above: Performed By: #### H S TROP, CMP, ETOH, CBC, TSH3 #### [facility] [address] [place] [address] [place] Glucose [Mass/Vol] 85 mg/dL Normal 70-100 [facility] Comment on above: Result Comment: [facility] Glucose Reference Range is dependent on time and content of last meal. Glucose of more than 200 mg/dL in a nonstressed, ambulatory subject supports the diagnosis of Diabetes Mellitus. ADA recommended reference range Performed By: #### H S TROP, CMP, ETOH, CBC, TSH3 #### [facility] [address] Potassium [Moles/Vol] 3.9 mmol/L Normal 3.5-5.1 [facility] Comment on above: Performed By: #### H S TROP, CMP, ETOH, CBC, TSH3 #### [facility] [place] [address] Protein [Mass/Vol] 7.8 g/dL Normal 6.4-8.9 [facility] Comment on above: Performed By: #### H S TROP, CMP, ETOH, CBC, TSH3 #### [facility] [place] [address] [place] [address] [place] Sodium [Moles/Vol] 141 mmol/L Normal 136-145 [facility] Comment on above: Performed By: #### H S TROP, CMP, ETOH, CBC, TSH3 #### [place] [address] [place] Urea nitrogen [Mass/Vol] 11 mg/dL Normal 7-25 [facility] Comment on above: Performed By: #### H S TROP, CMP, ETOH, CBC, TSH3 #### [facility] [place] [address] [place] [address] [place] Creatinine [Mass/volume] in Serum or PlasmaOrdered By: Henry Hernandez on 05-09-2022 Creatinine [Mass/Vol] 0.76 mg/dL 0.60-1.20 [facility] Dipstick and Microscopicon 0 05-09-2022 Appearance (U) Clear Normal Clear [facility] Comment on above: Order Comment: Name Collection Type:: Clean-Voided Midstream Performed By: #### H S TROP, CMP, ETOH, CBC, TSH3 #### [facility] [address] [place] [address] [place] Bacteria,Urine None Seen Normal None Seen [facility] Comment on above: Order Comment: Name Collection Type:: Clean-Voided Midstream Performed By: #### H S TROP, CMP, ETOH, CBC, TSH3 #### [facility] [address] [place] [address] [place] Bilirubin,Urine Negative Normal Negative [facility] Comment on above: Order Comment: Name Collection Type:: Clean-Voided Midstream Performed By: #### H S TROP, CMP, ETOH, CBC, TSH3 #### [facility] [address] [place] [address] Color (U) Yellow Normal Yellow [facility] Comment on above: Order Comment: Name Collection Type:: Clean-Voided Midstream Performed By: #### H S TROP, CMP, ETOH, CBC, TSH3 #### [facility] [address] [place] [address] [place] Glucose Ql (U) Normal Normal Normal [facility] Comment on above: Order Comment: Name Collection Type:: Clean-Voided Midstream Performed By: #### H S TROP, CMP, ETOH, CBC, TSH3 #### [facility] [address] [place] [address] [place] Ketones Ql (U) Trace High Negative [facility] Comment on above: Order Comment: Name Collection Type:: Clean-Voided Midstream Performed By: #### H S TROP, CMP, ETOH, CBC, TSH3 #### [facility] [address] [place] [address] [place] Leukocyte esterase Test strip Ql (U) 1+ High Negative [facility] Comment on above: Order Comment: Name Collection Type:: Clean-Voided Midstream Performed By: #### H S TROP, CMP, ETOH, CBC, TSH3 #### [facility] [address] [place] [address] [place] Nitrite,Urine Negative Normal Negative [facility] Comment on above: Order Comment: Name Collection Type:: Clean-Voided Midstream Performed By: #### H S TROP, CMP, ETOH, CBC, TSH3 #### [address] Occult Blood,Urine 1+ High Negative [facility] Comment on above: Order Comment: Name Collection Type:: Clean-Voided Midstream Performed By: #### H S TROP, CMP, ETOH, CBC, TSH3 #### [address] pH (U) 5.5 [pH] Normal 5.0-9.0 [facility] Comment on above: Order Comment: Name Collection Type:: Clean-Voided Midstream Performed By: #### H S TROP, CMP, ETOH, CBC, TSH3 #### [address] Protein (U) [Mass/Vol] 30 mg/dL High Negative [facility] Comment on above: Order Comment: Name Collection Type:: Clean-Voided Midstream Performed By: #### H S TROP, CMP, ETOH, CBC, TSH3 #### [address] RBC,Urine 3-4 Normal 0-4 [facility] Comment on above: Order Comment: Name Collection Type:: Clean-Voided Midstream Performed By: #### H S TROP, CMP, ETOH, CBC, TSH3 #### [address] Specificy [place],Urine 1.013 Normal 1.001-1.030 [facility] Comment on above: Order Comment: Name Collection Type:: Clean-Voided Midstream Performed By: #### H S TROP, CMP, ETOH, CBC, TSH3 #### [address] Squamous Epithelial Cell,Urine 0-1 Normal 0-2 [facility] Comment on above: Order Comment: Name Collection Type:: Clean-Voided Midstream Performed By: #### H S TROP, CMP, ETOH, CBC, TSH3 #### [address] Urobilinogen,Urine Normal Normal Normal [facility] Comment on above: Order Comment: Name Collection Type:: Clean-Voided Midstream Performed By: #### H S TROP, CMP, ETOH, CBC, TSH3 #### [address] WBC LM.HPF (Urine sed) [#/Area] 0 /[HPF] Normal 0-4 [facility] Comment on above: Order Comment: Name Collection Type:: Clean-Voided Midstream Performed By: #### H S TROP, CMP, ETOH, CBC, TSH3 #### [address] Drug Screen,Urineon 05-10-19 Amphetamine Screen,Urine Negative Normal Negative [facility] Comment on above: Performed By: #### U HCG, URDS, ADDONUAPLUS #### [address] Barbiturate Screen,Urine Negative Normal Negative [facility] Comment on above: Performed By: #### U HCG, URDS, ADDONUAPLUS #### [address] Benzodiazepines Screen,Urine Negative Normal Negative [facility] Comment on above: Performed By: #### U HCG, URDS, ADDONUAPLUS #### [address] Cannabinoid Screen,Urine Positive High Negative [facility] Comment on above: Result Comment: Thes e are unconfirmed results and should not be used for legal purposes. Drug Cut-Off Concentration: AMPH 1000 ng/mL CARMELLA 200 ng/mL GERMAN 200 ng/mL COCM 300 ng/mL OP 300 ng/mL PCP 25 ng/mL THC 20 ng/mL PERFORMED BY: [place] [address] PATHOLOGIST EDITOR SOUND KELLIE ALVARADO M.D. Performed By: #### U HCG, URDS, ADDONUAPLUS #### [address] Cocaine Screen,Urine Negative Normal Negative [facility] Comment on above: Performed By: #### U HCG, URDS, ADDONUAPLUS #### [facility] [address] Opiate Screen,Urine Negative Normal Negative [facility] Comment on above: Performed By: #### U HCG, URDS, ADDONUAPLUS #### [facility] [address] Phencyclidine Screen,Urine Negative Normal Negative [facility] Comment on above: Performed By: #### U HCG, URDS, ADDONUAPLUS #### [facility] [address] ECG 12 lead ECGon 05-09-2022 [address] [facility] [place] [address] [place] [address] Electrocardiograph Report Signed Patient: Antoinette Recio MR#: [id number] : 1995 Acct:[id number] Age/Sex: 27 / F ADM Date: 05/09/22 Loc: Room: [address] [place] [address] Type: ADM IN Attending Dr: Tiana Smith [...] sinus rhythm Confirmed by Henry Hernandez DO ([id number]) on 05/09/2022 4:07:02 AM Referred By: Electronically Signed By:Henry Hernandez DO Transcribed By: MUS Signed By Henry Hernandez DO [id number] [facility] Eosinophils Auto (Bld) [#/Vo l]Ordered By: Henry Hernandez on 05-09-2022 Eosinophils (Bld) [#/Vol] 0.1 10*3/uL 0.0-0.45 [facility] Eosinophils/100 WBC Auto (Bl d)Ordered By: Henry Hernandez on 05-09-2022 Eosinophils/100 WBC (Bld) 1.3 % . [facility] Erythrocyte distribution wid th Auto (RBC) [Ratio]Ordered By: Henry Hernandez on 05-09-2022 Erythrocyte distribution width (RBC) [Ratio] 17.8 % 11.9-15.3 [facility] Ethanol [Mass/volume] in Ser um or PlasmaOrdered By: Henry Hernandez on 05-09-2022 Ethanol [Mass/Vol] 302 mg/dL [facility] Ethanol [Mass/Vol] 0.302 % [facility] Ethyl Alcohol Profileon 04-11 Ethanol [Mass/Vol] 302 mg/dL Normal [facility] Comment on above: Performed By: #### H S TROP, CMP, ETOH, CBC, TSH3 #### [facility] [address] Percent Ethanol 0.302 % Normal [facility] Comment on above: Result Comment: PERF ORMED BY: [place] [address] PATHOLOGIST EDITOR SOUND KELLIE ALVARADO M.D. Performed By: #### H S TROP, CMP, ETOH, CBC, TSH3 #### [facility] [address] Globulin Calc (S) [Mass/Vol] Ordered By: Henry Hernandez on 05-09-2022 Globulin (S) [Mass/Vol] 2.8 g/dL [facility] Glucose [Mass/volume] in Ser um or PlasmaOrdered By: Henry Hernandez on 05-09-2022 Glucose [Mass/Vol] 85 mg/dL 70-100 [facility] Comment on above: ADA recommended refe rence rangeRandom Glucose Reference Range is dependent on time and content of last meal. Glucose of more than 200 mg/dL in a nonstressed, ambulatory subject supports the diagnosis of Diabetes Mellitus. HCG ( test) IA.rapi d Ql (U)Ordered By: Henry Hernandez on 05-09-2022 HCG ( test) Ql (U) Negative [facility] HCG,Urineon 05-09-2022 Beta HCG ( test) Ql (U) Negative Normal [facility] Comment on above: Order Comment: Name Collection Type:: Clean-Voided Midstream Result Comment: PERF ORMED BY: [place] [address] PATHOLOGIST EDITOR SOUND KELLIE ALVARADO M.D. Performed By: #### H S TROP, CMP, ETOH, CBC, TSH3 #### [facility] [address] [place] [id number] [facility] Hematocrit Auto (Bld) [Volum e fraction]Ordered By: Henry Hernandez on 05-09-2022 Hematocrit (Bld) [Volume fraction] 40.2 % 34.0-46.4 [facility] Hemoglobin [Mass/volume] in BloodOrdered By: Henry Hernandez on 05-09-2022 Hemoglobin (Bld) [Mass/Vol] 13.1 g/dL 11.8-15.4 [facility] Ketones Auto test strip (U) [Mass/Vol]Ordered By: Henry Hernandez on 05-09-2022 Ketones (U) [Mass/Vol] Trace Negative [facility] Leukocytes [#/volume] correc christelle for nucleated erythrocytes in Blood by Automated counOrdered By: Henry Hernandez on 05-09-2022 WBC corrected for nucl RBC Auto (Bld) [#/Vol] 6.3 10*3/uL 3.8-11.6 [facility] Lipid Panelon 05-09-2022 Cholesterol [Mass/Vol] 336 mg/dL High 140-200 [facility] Comment on above: Order Comment: FASTI NG Y Comment USE FROM ER PLEASE Result Comment: Chol less than 200 mg/dl low risk Chol 201-239 mg/dl borderline risk Chol 240 mg/dl and greater high risk Performed By: #### H S TROP, CMP, ETOH, CBC, TSH3 #### [facility] [address] [place] [address] [facility] Cholesterol in HDL [Mass/Vol] 182 mg/dL High 35-85 [facility] Comment on above: Order Comment: FASTI NG Y Comment USE FROM ER PLEASE Result Comment: HDL CHOL ATP-III CLASSIFICATION Cardiovascular Risk HDL > or equal to 60 mg/dL LOW HDL < 40 mg/dL HIGH Performed By: #### H S TROP, CMP, ETOH, CBC, TSH3 #### [facility] [address] Cholesterol.total/Sarah sterol in HDL [Mass ratio] 1.8 {ratio} Normal <5.0 [facility] Comment on above: Order Comment: FRANKIE Shine Comment USE FROM ER PLEASE Performed By: #### H S TROP, CMP, ETOH, CBC, TSH3 #### [facility] [place] [address] LDL Cholesterol,Calculated 133 mg/dL High 0-100 [facility] Comment on above: Order Comment: FRANKIE Shine Comment USE FROM ER PLEASE Result Comment: LDL ATP III CLASSIFICATION LDL less than 100 mg/dL Optimal LDL 100-129 mg/dL Near or above optimal LDL 130-159 mg/dL Borderline high LDL 160-189 mg/dL High LDL greater than 189 mg/dL Very high Performed By: #### H S TROP, CMP, ETOH, CBC, TSH3 #### [facility] [place] [address] Triglyceride w/Reflex 107 mg/dL Normal 0-149 [facility] Comment on above: Order Comment: FRANKIE [...] S TROP, CMP, ETOH, CBC, TSH3 #### [facility] [address] VLDL CHOLESTEROL 21 mg/dL Normal [facility] Comment on above: Order Comment: FRANKIE Shine Comment USE FROM ER PLEASE Performed By: #### H S TROP, CMP, ETOH, CBC, TSH3 #### [facility] [address] [place] [address] [place] Lymphocytes Auto (Bld) [#/Vo l]Ordered By: Henry Hernandez on 05-09-2022 Lymphocytes (Bld) [#/Vol] 1.4 10*3/uL 1.00-4.8 [facility] Lymphocytes/100 WBC Auto (Bl d)Ordered By: Henry Hernandez on 05-09-2022 Lymphocytes/100 WBC (Bld) 22.7 % . [facility] MCH Auto (RBC) [Entitic mass ]Ordered By: Henry Hernandez on 05-09-2022 MCH (RBC) [Entitic mass] 29.4 pg 24.7-34.3 [facility] MCHC Auto (RBC) [Mass/Vol]Or dered By: Henry Hernandez on 05-09-2022 MCHC (RBC) [Mass/Vol] 32.7 g/dL 32.0-35.0 [facility] MCV Auto (RBC) [Entitic vol] Ordered By: Henry Hernandez on 05-09-2022 MCV (RBC) [Entitic vol] 90.0 fL 80-100 [facility] Monocyte distribution width [Entitic volume] in Blood by AutomatedOrdered By: Henry Hernandez on 05-09-2022 Monocyte distribution width Auto (Bld) [Entitic vol] 15.97 % 0.00-20.00 [facility] Monocytes Auto (Bld) [#/Vol] Ordered By: Henry Hernandez on 05-09-2022 Monocytes (Bld) [#/Vol] 0.4 10*3/uL 0.0-0.8 [facility] Monocytes/100 WBC Auto (Bld) Ordered By: Henry Hernandez on 05-09-2022 Monocytes/100 WBC (Bld) 6.5 % . [facility] Neutrophils Auto (Bld) [#/Vo l]Ordered By: Henry Hernandez on 05-09-2022 Neutrophils (Bld) [#/Vol] 4.3 10*3/uL 1.8-7.7 [facility] Neutrophils/100 WBC Auto (Bl d)Ordered By: Henry Hernandez on 05-09-2022 Neutrophils/100 WBC (Bld) 68.6 % . [facility] Nitrite Test strip Ql (U)Ord ered By: Henry Hernandez on 05-09-2022 Nitrite Ql (U) Negative Negative [facility] No Panel InformationOrdered By: Henry Hernandez on 05-09-2022 Estimated GFR (CKD-EPI) > 60.0 mL/Min [facility] Creatinine Clearance (Chem 114.17 [facility] Nucleated erythrocytes [Pres ence] in Blood by Automated countOrdered By: Henry Hernandez on 05-09-2022 Nucleated RBC Auto Ql (Bld) 0.0 /100{WBC} 0-0.5 [facility] Opiates [Presence] in Urine by Screen methodOrdered By: Henry Hernandez on 05-09-2022 Opiates Screen Ql (U) Negative Negative [facility] Phencyclidine Screen Ql (U)O rdered By: Henry Hernandez on 05-09-2022 Phencyclidine Ql (U) Negative Negative [facility] Platelet mean volume Auto (B ld) [Entitic vol]Ordered By: Henry Hernandez on 05-09-2022 Platelet mean volume (Bld) [Entitic vol] 6.7 fL 6.3-10.7 [facility] Platelets Auto (Bld) [#/Vol] Ordered By: Henry Hernandez on 05-09-2022 Platelets (Bld) [#/Vol] 330 10*3/uL 150-450 [facility] Potassium [Moles/volume] in Serum or PlasmaOrdered By: Henry Hernandez on 05-09-2022 Potassium [Moles/Vol] 3.9 mmol/L 3.5-5.1 [facility] Protein Auto test strip (U) [Mass/Vol]Ordered By: Henry Hernandez on 05-09-2022 Protein (U) [Mass/Vol] 30 mg/dL Negative [facility] Protein [Mass/volume] in Ser um or PlasmaOrdered By: Henry Hernandez on 05-09-2022 Protein [Mass/Vol] 7.8 g/dL 6.4-8.9 [facility] RBC Auto (Bld) [#/Vol]Ordere d By: Henry Hernandez on 05-09-2022 RBC (Bld) [#/Vol] 4.46 10*6/uL 3.60-5.00 [facility] Salicylateon 05-09-2022 Salicylate < 1.5 Low 15.0-30.0 [facility] Comment on above: Result Comment: Petty ents treated with Sulfasalazine may generate a false high result for Salicylate. Performed By: #### A CET, JAMIE #### [facility] [address] [place] [address] Salicylates [Mass/volume] in Serum or PlasmaOrdered By: Henry Hernandez on 05-09-2022 Salicylates [Mass/Vol] mg/dL 15.0-30.0 [facility] Comment on above: Patients treated wit h Sulfasalazine may generate a false high result for Salicylate. Serum or plasma albumin/glob ulin mass ratioOrdered By: Henry Hernandez on 05-09-2022 Albumin/Globulin [Mass ratio] 1.8 {ratio} [facility] Serum or plasma anion gap de terminationOrdered By: Henry Hernandez on 05-09-2022 Anion gap [Moles/Vol] 18.4 mmol/L 6.0-15.0 [facility] Serum or plasma high density lipoprotein (HDL) cholesterol measurementOrdered By: Ji Smith on 05-09-2022 Cholesterol in HDL [Mass/Vol] 182 mg/dL 35-85 [facility] Comment on above: HDL CHOL ATP-III CLA SSIFICATION Cardiovascular RiskHDL > or equal to 60 mg/dL LOWHDL < 40 mg/dL HIGH Serum or plasma total choles terol/high density lipoprotein (HDL) cholesterol mass ratOrdered By: Ji Smith on 05-09-2022 Cholesterol.total/Sarah sterol in HDL [Mass ratio] 1.8 {ratio} <5.0 [facility] Sodium [Moles/volume] in Ser um or PlasmaOrdered By: Henry Hernandez on 05-09-2022 Sodium [Moles/Vol] 141 mmol/L 136-145 [facility] Specific gravity Auto test s trip (U) [Rel density]Ordered By: Henry Hernandez on 05-09-2022 Specific gravity (U) [Rel density] 1.013 1.001-1.030 [facility] Thyroid Stim Hormone w/Rflxo n 05-09-2022 Thyroid Stim Hormone w/Rflx 0.80 u[iU]/mL Normal 0.45-5.33 [facility] Comment on above: Order Comment: FRANKIE SOTO Y Comment USE FROM ER PLEASE Performed By: #### H S TROP, CMP, ETOH, CBC, TSH3 #### [facility] [address] Thyrotropin [Units/volume] i n Serum or PlasmaOrdered By: Ji Smith on 05-09-2022 TSH Qn 0.80 m[IU]/L 0.45-5.33 [facility] Triglyceride [Mass/volume] i n Serum or PlasmaOrdered By: Ji Smith on 05-09-2022 Triglyceride [Mass/Vol] 107 mg/dL 0-149 [facility] Comment on above: TRIG ATP III CLASSIF ICATIONTRIG less than 150 mg/dL NormalTRIG 150-199 mg/dL Borderline highTRIG 200-500 mg/dL High TRIG greater than 500 mg/dL Very highStandard traceable to the Center for Disease Conrtrol and Prevention (CDC) test method. Urea nitrogen [Mass/volume] in Serum or PlasmaOrdered By: Henry Hernandez on 05-09-2022 Urea nitrogen [Mass/Vol] 11 mg/dL 7-25 [facility] Urine bacteria detection by automated methodOrdered By: Henry Hernandez on 05-09-2022 Bacteria Auto Ql (U) None seen None Seen [facility] Urine clarity by refractomet ry automatedOrdered By: Henry Hernandez on 05-09-2022 Clarity Refractometry automated (U) Clear Clear [facility] Urine glucose measurement by automated test strip (mass/volume)Ordered By: Henry Hernandez on 05-09-2022 Glucose Auto test strip (U) [Mass/Vol] Normal mg/dL Normal [facility] Urine hemoglobin detection b y automated test stripOrdered By: Henry Hernandez on 05-09-2022 Hemoglobin Auto test strip Ql (U) 1+ Negative [facility] Urine leukocyte esterase det ection by automated test stripOrdered By: Henry Hernandez on 05-09-2022 Leukocyte esterase Auto test strip Ql (U) 1+ Negative [facility] Urobilinogen Auto test strip (U) [Mass/Vol]Ordered By: Henry Hernandez on 05-09-2022 Urobilinogen (U) [Mass/Vol] Normal mg/dL Normal [facility] Vitamin D 25 Hydroxy Totalon 05-09-2022 Vitamin D 25 Hydroxy Total 36.0 ng/mL Normal 30-100 [facility] Comment on above: Order Comment: FRANKIE Shine Comment USE FROM ER PLEASE Result Comment: JESSICA MIN D STATUS 25(OH)VITAMIN D RANGE (ng/mL) Deficient <20 Insufficient 20 to <30 Sufficient 30 to 100 Reference: Aye Palacios, Geremias YOUNG, et al. Evaluation,treatment, and prevention of vitamin D deficiency; an Endocrine Society clinical practice guideline. JCEM. 2010; 96(7):1911-30. PERFORMED BY: [place] [address] PATHOLOGIST EDITOR SOUND KELLIE ALVARADO M.D. Performed By: #### H S TROP, CMP, ETOH, CBC, TSH3 #### [address] Vitamin D+Metabolites [Mass/ volume] in Serum or PlasmaOrdered By: Ji Smith on 05-09-2022 Vitamin D+Metabolites [Mass/Vol] 36.0 ng/mL 30-100 [facility] Comment on above: VITAMIN D STATUS 25( [place])VITAMIN D RANGE (ng/mL) Deficient <20 Insufficient 20 to <30Sufficient 30 to 100Reference: Aye Palacios, Geremias YOUNG, et al. Evaluation,treatment, and prevention of vitamin D deficiency; an Endocrine Society clinical practice guideline. JCEM. 2010; 96(7):1911-30. WBC Auto (Bld) [#/Vol]Ordere d By: Henry Hernandez on 05-09-2022 WBC (Bld) [#/Vol] 6.3 10*3/uL 3.8-11.6 [facility] pH Auto test strip (U)Ordere d By: Henry Hernandez on 05-09-2022 pH (U) 5.5 [pH] 5.0-9.0 [facility] Office Visiton 12-19-2021 Follow-up visit [id number] Antoinette Recio 1995 F Date Provider Department Center 12/19/2021 [id number] ANTOINE [facility] None No family history on file Level of Service:09363 [facility] OFFICE/OUTPT VISIT,PROCEDURE ONLY Reason for Visit and Comments: Rash [[id number]] - Itchy - painful started yesterday - Normal [facility] Progress Noteon 12-19-2021 Progress Note [facility] [facility] [address] Dept: [phone] Dept Loc: [phone] Subjective Antoinette Recio is a 26 y.o. [...] occasionally words aremis-transcribed.) Lorin Tenorio APRN - IT TELECOM TECHNICIAN 12/19/21 Normal [facility] CT HEAD WO CONon 03-18-2021 CT [...] by: ATIYA GREWAL Date: 2021-03-17 22:52 Normal [facility] Operative Reporton Operative Report Date of Surgery: 06/14/2020 SURGEON: Jordan Bhakta D.O. CLOTH SHRINKING TESTER: TOÑO Chowdary CNOR PREOPERATIVE DIAGNOSIS: Displaced midshaft [...] Clean Jordan Bhakta D.O. gls Dictated: 06/14/2020 #[id number] Typed: 06/15/2020 #[id number] cc: Jordan Bhakta D.O. [facility] Comment on above: Result Comment: Elec tronically Signed By: Jordan Bhakta DO\.br\Date and Time Signed: 07/16/20 20:57 EDT Coding Summary.on 06-25-2020 Coding Summary. CD:[id number] Gh 0bWw+PGhlYWQ+QN3XJKUgR 98mzFTrrV5VY6aNRM7RAEQ WIDREAX6PMG3frAP4ZPbeU 2VybiAv CykjdBAsHT02JBn9ERC2kM yiROdiyA8qkRGmZ2x5KqGz BO68xJ77DJfvRHIrFjF8Kp ZpbjsgbWFy E9axOdJvaYJgFub+PHRhYm xlIHdpZHRoPScxMDAlJyBz xFuyZE6qUr5rTWLlBNAbsS xhcHNlOiBj j8zzVVPtYKsxYN6ylLdxO0 KemGX3OGPsr5g0Dg58kUD+ YOHtPGU0mVzpZWbcr238Ll Rha0oqEIW1 aNUgCAshOBV9A56to4B1ZY YhQWVeHTT8iUH0pF9gmEyz qnweK4BytVFiOjM9IJE0cA UbtA0hpRsg ldqjpC2xUry+Y01NIX3VRB VNWH0TKra8Y7WrXudtrPU+ IA37TWTkQQ03xLZhyPSkr8 cgkQd5SiKx LYQyFWZ7lRogJZidh6EeCV GuV58haFUml3C2YYUyqCyd nWGlAlLxhUM1hY6rTMrlhf qjq3ydliqb Liqkp8eszv73dC27P78qNT awRPKrJCZ8SMSnPPLdqKlq jb2cqP8kWq0+UEjjz4mjj6 sddHt1DjMb WOUwtxRinPncCVR8g2AdCk 69P9TwjXbjt1LhFin4qu80 zHFte1X2kSP1KRhrNCTvzC 4aAJkbBrW5 PYKqQmRmxP19eQVcDInsOy 5gfGgxxJmiWZ0yBMCzekee HRRkxA9dMAAfcFWtcYlvYT 4wNTBpbjtm v628QpGcPFQ9YNIfwRUqG0 JcsK4qUeQsIUZiCGEjJ2Qa oXVpYMuuE083EDbjXmZ5BA XfqnGnX2Pk LWSgfLnfWrT3i2M0Du1Jl1 PvbohxKSL1CUnaDPV2WzZ2 QjAuGlX3N2AxPey8MOQptG gcLX4uP7Ma DGPdgcjlarnthKH2RPLzEL IyaE79lWXwMGwtTy2aw9E0 e050HPGtQRIsnH96Vy7lqS ogMTBwdCBU tX1ualepn6gkcrxsEgTrOC UkRVp1JOp0MFRpjIooXrFk TEP2VyH9PLT4sUBnfK6ncS ivaeooxV2t Oyc+E68gpV2nMOM6DFE0bw spZLFpurVcQV13GK01E3Rv PjwvdGFibGU+PGRpdiBzdH duZW0jSjRk z6inm9YgVObgQ4EyEEInSO mdOkh4HAVlXLB7mBN8iI7k FIOeEBjkx0R9yVI8Q9Dyxg Mfeb8fk3oc JFCtHPmmV19yjNVit5K5ZG KvuJN2TPTloBceOcZziL15 Oyc+UJMhdDkvc6MoXrzxu0 xwy3ewdOt5 VsNcTUOnkwAkgWznNWW4y5 NyUj23F07kFWvkAYIwMFWe MJByTSTajPjose7kzY5nIp 8+PGNvbCB3 yPP9uW9rAKXhYoG5SXzoT3 59SeVrjCGtMruvn3kov0va gXf2MjChRDLekuXjuRrjZU M3a6IdFt55 E67kNLwnUIHxCWHiXHScKR FwcThgpi6hpH3rRo3+PC9j p1jkmu09cV82dGT+PHRkIH G1rXzwFEcu YCGpeD2bHNpsWhX1JZJuOk HaqC21eKXnOVlgIk9azPie kMlaVE7pOICjszflc205Ql Jnv8ocCVZw sDRhFOdaARX9T89pk6E7BH EtPDHaCPR5jUG9vL2tuMlu bjogbGVmdDsgdmVydGljYW lsICzxY358 IHRvcDsnPlBhdGllbnQgTm EgNGb2A1AdIlp6KJQmtHkz KC0mfJIuQAhhMv9evRxvmQ zrIH0aCWRb rsvkg203CiIpj8yfXDRqqF YkTKdfRJN0Q68ho5D1NJFo QEAgECL1uDH1qJ4zvRgila ogbGVmdDsg ctAykUriDUxzXZbpT991BB RvcDsnPkJpcnRoIERhdGU6 UM54LB95wEJcq4T3vCK2Q5 BhZGRpbmct xwqmfRY2UVKgXVPcuM67Cx 3gbJjuVu5kTKMnJNR6OFBd xMQgM7ApyT3hNrNwOGPkZB PsI5QfjLNk OSrnG918GKijQdP7RXLate EiR7WsZBLzbSklGfV9k5L5 Bh1DL8O3DE41LJ42zJQcs0 T5uMU9B8De ZIEfjnvlpdclhCZ9HBYiLR EeqT96Ti9fxReaOh7fYDTi KXO5IFFyyIUyY6BzeW1bVs AjMDAwMDAw A4GcjKIxPPclO093TKrwLi O9PVTyvxDoJ2DsSEUikLmf EbS0k7Y9Cy2CJKa3GT03QJ 23lUSvf8H4 kKE6X7AhIZNkjwwzviwomR K2XOYtNTNmyY24Eh2apSiv Qp5bNQYxNXC3AUSmbNNsN8 SisL1wImYi HFVpCECdZ1TveIIqSPooJ3 75UOhcEdR5HSQqpySmM1Ym DDUpgKivPvE0p1L1Zq6YFT LnSM60DMX9 cRA3GG34DX50J5ZwMyonrA FibGU+PHRhYmxlIHdpZHRo ZEziRMWiWvDzvXpyLV2sEi 9yZGVyLWNv wHsojMLfUlJrq1ckMZEvWX wnPL6glTmrQ5XucLJ6QKXf c7k9Ym07R77vH8NirVC+PG FpqXU6uGT3 qB9cShEqOrV7RKisU324Hh KwxZMjEaolq1xtx7uhwKm4 WaS2PHOexeLbaMcuAYN0j3 PqCm03E74s IHdpZHRoPSIxNSUiIHZhbG qomz2rxM8rUd2+PGNvbCB3 hNN6zD3bZrVvIfG8EUliR8 49InRvcCIv Orqtj0zhu1bfyFz3TeVcNQ WwqfMpuHirBRF4x9KuCf46 V5SlwQysh8GmDmq5tp91oE Vus5O2iMS1 T2GnVDNxeowhwBEumFilKN 4nKQLhxrqeOIMphU7hDYSp W0b1NiWnCaM8GCqyQ1Djyb W5GWJfgWZt FSftPYG5B80ws3W1ZGIlVM TeDJJ5dSA1pY9nlIujmdjl bGVmdDsgdmVydGljYWwtYW wqL166YJEg zVfxKGZjhV8sRYHcyLNusQ qnMX3zIFXyaudnObUZEbKT KEnjSS1CGeWPTKDmKsigfS Q+PHRkIHN0 rRdcCBbiVMVuoL5fEXHkZ8 n7UrLfGdN8XPboT5WrHKIi rnuuFv98jE7vCiNlEbR1HM fuL0MiatE0 OWVksCCgECnjVZI8L50yt8 C1CDFpYRHpREW5xGJ6xY8i bGlnbjogbGVmdDsgdmVydG ljYWwtYWxp S487MEXzvKolCbXfWyTuVx Q2DGX9Y3HzCnl3FPUmwLmi ZZ7ykHUyLQbvDu6siQkfoT ioZT3pIWDf hlqoPKYwlW6bQQCmgKQtkM cdHT5cQAGhiyctj313DuVr BKR4GUZjrWTcS1HuyL3jHk AjMDAwMDAw X1OiuUUmNVmoT938UCkyBb W6KQMnlvOfX7FrQXSuqFtu IhD2i6G6Gd2jSHTUHNTyjm wvdGQ+PHRk HSK7uCtcUPetVDSytP3zML FtV6x8MaLvNnH4KNtgI8Db NNPulmwgLs71pQ9yWwAiEz G0IMdhV9Pv mkF7ENMzqOTxCIkmQVB5M0 2li2C3WRLmAOGpATA3oOS0 sL5ggMibqxnkyPOdwHpyub VydGljYWwt BHncI522SRCwaHpbZjHueI FsZTwvdGQ+DTSvGEU6jGmo JYlpSJKmkC7mZGUjK0q9Di GqDkI8TTbm A4LtEMYxmnmvTd32aR4vTy BnXwL5HFpxZ2TlovL7QMWz xAOsHPefTOM2Y10mw5B2IA MwMDAwMDA7 cQD3tN1rfIrwlgelxNCokS xyanJgjRcdHXupNNanR838 IHRvcDsnPkFtYnVsYXRvcn mhF1KiSICS ZLhiE0WpT1UjoTexsRN+PC 35wo32C3JlPvasTfl7FJCn QTQ6rHP2oW9rVYOiRLxvz0 P1fNV0H8Wr laTwua8mm8svIRLiWFhfP1 4xnSVis3J4APLkvAH2BFNo eTeaDoSxlR34Yuv+PGNvbG ujj5DeHkkx t1pnh6cfnLw1NmOaFKYqsc SprKrlONX1v4NxEe31F79f IHdpZHRoPSIzMCUiIHZhbG fima6smA2n Ii8+IERjdVB4hJF1nM5kMi KgRyP5DAkwZ283IqQoeBKi Nnmqu0pqd6qvyLc1XxLsVG IgdmFsaWdu QNB6e5MgDh00D6AqlFkre7 DrPep8qd65uFTqo7V1fDW1 Z6AvZLItbnyvhATgiXlaTR 4yMDBpbjtw VFAvzC9nSVQzR5j6WiMyKi A7IZheK7EjatL7RHMtyJIg APGtoGLCkY1kbebhc9auby ogIzAwMDAw AXk6JAw3LBGpvAvtVhAkXA B9EcW3CBB1eYZgeC5xdWme jhaebT2zOcy+UTu0s0kxmJ MrPY3mnBW7 XN43XM83zPCbk7K5cJP5S4 IrAEIobyjyjzduxKJ8IDIs TOHaxH24Oz3gpWouEe9oPN GkFDV6LFTo vXCxD7QkiY7oRnKwTYUdTU DfQ6AwrCZrTPlhQ876NNti YcV3LWPigwCuA3NiPHJvvP tlSgZ6e2W5 Cy8NYT33TV79UA38iQBcg5 N4zIS2G0KwYEQtqzmmfntu kSE2GJAtWZNhdS15Bk3uhE dfWo5lIJLr UJZ0HHQscUSzG4WorR9dZc AbEPZyVXTeJ7FhdKMxHAcv T567UQbeGjF6QXUxleNcY7 FsLWFsaWdu VxL7w2O4Wr2UEk71AW54CR 04zZVbn1N2fKN1U1QaRNTv rgeacltzuYD1VEPrSTWwjO 92Bo5ayZvm Ee2jQHOxYPM3BOEezADzB2 BmcA3qGgWsAWPmYKFdI5Kk qKWsUYunS613RUagQtA4KQ TbapAaL2Md BKXtdMizMeN9y6G3Iu2QSH bwckh7Q0UoEproxJQ+PC90 PKCrUW07jNHufPGeh1otqE w7NaOvXJYp IHN0 (more content not included)... Normal [facility] Coding Summary.on 06-24-2020 Coding Summary. CD:[id number]:[id number] Gh 0bWw+PGhlYWQ+OV2YBQBmD 25oaREqfR5KE1mUYB5PAUR FJLAVHO1HKU2iiVK5QZnjC 2VybiAv YosfjUTaUS67AVi9AFB0lK upNIprjP5mgVOtK3t8RvMm IQ98cY56BWxxNTDnZrW8Ef ZpbjsgbWFy P6fbHdWasFFmRmj+PHRhYm xlIHdpZHRoPScxMDAlJyBz vYliWG8bUh8xDDMaFIYbiC xhcHNlOiBj u5wjYXPnTYlmGP0sxMifE5 WuhQJ5UPSca7i6Ii61aUA+ ATAzGHG3gVgsWXmvv497Ey Nrj8zuXIF6 eOAqGAeoXKG3H87iy5B5IV NsQUSmUFJ6jFU5mE5oyDvr nptwC5RiqTDmXzO6XMX7aL IpsM0xkLvn sxsmdA3yErk+U99TMC0SUJ VBDP2UCzy4B9JjDhrjuSN+ PG52AWWfET92fOVmjJCdz4 xnrDh3TwDu CYDkLZQ8rVsaIQykk0QwVT ZbK32wrXMym4C8RWIemJwg fLSeSyLwhUL2dA2nZYvadi vkl5kqnuyf Tnxoo9qdmw96zS11A30tIB yfVOPmILS5JTQyPMOqxWgf wr5qnR6cMp4+JDghg2thh5 xkyZa9UdLu CZXvlcVodBzdAMM4e5FoBr 29W5NymNxts6ObNbb8on47 dMWhe2J3rQP6TCrmNZVbtQ 7mHHgtVfF5 MDEtFxJxgP58hGCqIZznJa 0fuQxrxNtmPS5sCBMnwuvo POLguA0dWWJfnLCwpHoeYS 4wNTBpbjtm i568OdNoXJN5AWUbfUFoQ0 PfaH6yScJtKNPgRFZbZ5Me bJMeKRpcV156OFntKrO0OS MdrvDvH1Xg IJUikXtfIjR3t8K7Lf6Lv8 PyzgigUJP3MXomGOM5BkM0 PzXbKpI6G6MjAsx5BVYaqR keBF9lK4Oz VJRudvdzinqiqCY9GDNvEP HcvC57kNAhFBvhEl6zi3D6 x156EUKpQBHxrN57Mw8ujM ogMTBwdCBU nT8lfinfm6qlkibcVtOlHL LaJMr2GMp6KBPzmCunCcVd PLY0FeX5RIL3yOGxaX0klW grozyisB6c Oyc+J73wmQ1qQZV3LGP8vb ryQGUdwlUdPX08BK05C7Tp PjwvdGFibGU+PGRpdiBzdH caQL8mJlSg b5yxd6VoMNxiR2CzGGJfQP ejNyp6VTWfOEN1cMK1pC7o ZGRwBDveh5J4mJY7V1Sewg Azrn2ka8oa WMRcAOzfG68qmHQcr8E2MK YcoFI4PWVnhBooPdPnpK44 Oyc+PKUadPlnn2XxPynck0 ozl2tpdPs8 OoTvRCUundHevQuhHRC3u1 NkDh41U21wXGxnUXJmUSXq NHGhYGHniEsarn2ftN6iDy 8+PGNvbCB3 iHV7mF7yDZGmAiA0RErlM8 49KpRvgXCoEsquh6xkd0sp cFi2FnGzHLXlkrVxbIdvWY Q5g4GjPm41 C72gUNafTVKeCHCuCQQuCY IkgDgdje0xcC1jPv9+PC9j o9dhhp32pZ35sWX+PHRkIH P5kXnhRYef AYAglC5qOCjkZrZ5HNBwUl LyaN59rCXqFOzrXx7fnBrn dUdnMU0lSIRqjesas506Xl Kzj2nkEXAf eTWpKAwhCFJ6L98ni6X3RR StUJCqPVL5wWX6sA8shRap bjogbGVmdDsgdmVydGljYW iuQHffT684 IHRvcDsnPlBhdGllbnQgTm XnBFh9L0WnMbw8OAOhhRxk VY9neOAyTPzdUq4cxTxdtQ pxFS7eGQNz cwdhl271QuSno1kaJLOlyT HfATuwTDH9T92zo1R8YQMh EYEvUHA7iTJ0hO0ohEykjh ogbGVmdDsg wcCrnIawAYonZSjbW435EF RvcDsnPkJpcnRoIERhdGU6 PN75UL10jNXab2E1vQP1V2 BhZGRpbmct lxuigNK8ACDhAEPdnB45Km 3zaRdxZl5sDWKkNIQ1GNHv tHDgD4MgnQ6xTzGgNLZpYY CpM5QhaTSr DHbkD710KRdgHxP1RZMhyj GxB3VnLGTfzHlnWqP8v2R1 Hx4ES1N3GB45EV52aUZxc4 O0eGZ5Y5Jn ATFspunfsvtrqZH6XPSwJT UwcV10Dt7xjAmlBz1nITKf BWL8DSOpvUByB1OvzX9sAe AjMDAwMDAw W5YccTWtTWrnE316NVbdRf D1TDBwwlUyM4FdPFCjzBrx IoA5z1P9Ag3CQJw5GT79AX 13rGUrf3C6 vWT7E2RsMUEimhaglagddN N6QAMnHNBwzY53Go0utCwm Ej0yHDPfRXG7TVYpkPQmT2 OvnJ8qRdLm EBDgYJAdG5LumGUbYNutY1 10NGjrQeF7GKLyuoRsF3Ct CLBzhNnsJeG0o9X8Kf5ICA GuLY04UQP2 eZA4VB68OK05R0BfUyguvR FibGU+PHRhYmxlIHdpZHRo FKuoCMTiLlTxwQucQE0fWz 9yZGVyLWNv dHbnkNRvCwLwz8xoNWCgPY qqYB5ctObzS1RitLX1FFId w7f0Cc84J49mX0ZmnOY+PG HshLB9sAN8 tM3gYmEwIgQ5AVsdI856Yg DgpFNxWuzfy4zab2lvxGd0 SnD8YYSxswSltGwtHAU3t5 IxRj99E46e IHdpZHRoPSIxNSUiIHZhbG cviz6zrD6uKa8+PGNvbCB3 eYR4nM2rOtIqGwS1GZjeJ9 49InRvcCIv Wzepf6bhm3qgdJn0AuDvBR XzitCisDqrLTW5a7VfWx92 H6EiqEfsa7HrLhb5xy41tT Dwu4N7pQG4 E9NzVSTtuhgsgEDjaWfhMF 3zXZFbpvfpHBVyuW0rIADe C5z2AzOiMaJ6BTiaD2Hvbd E2GNNtwDUc CUfsRBQ2Z79jy7R3PQZpKJ JeQJP1zKT2rZ7zjLsbqown bGVmdDsgdmVydGljYWwtYW ohW992UJBq vSgkDGPosM3yXNWlbMWsnJ tzZH6bEVGgxbefZiMQVqQW NRtwHY1COdTFTTTuCtmsuZ Q+PHRkIHN0 jNsyRSsrRHIbzZ0hPRDkX2 c2YgQwGnL8SAdtB0UnMJJu qpqhBl26yY1sWzCcDqS9OU roI9MzfiL2 ASQlhNGdRKdaOZE1V05by1 R8EJInISEeZQJ7aPO6mL0x bGlnbjogbGVmdDsgdmVydG ljYWwtYWxp D606RVMfhIafDlPhCyHpIi U8HNL1B9GbVwx8XWLmcJbt PY6bqNFpHNcePq0wqWodbE erNO3cRLYf irssFIEibB9hIGLfwYWcmD kbSH7sOILpurnrs123MaPs EYU4WYZmqWZfS2JkxB9gGx AjMDAwMDAw R6JluENpHGujZ404RTecPz C9KYVijmCnA2YiXWRhwXxg JaG0z8I7Fi0uZNZVMGLlpe wvdGQ+PHRk QGH0oCeiFYhuODFgjC7mCO ElP7l6ZqNpRiJ9RCufX9Ae VLNtiowjHg50yD6lOsRcZy L6OAvmO4Ao owW2JFYmdVApHWatNYM5H5 4dk4L3OGHaEBCvYYO4cNA4 wN2muJzvqsrggTRzsFolvh VydGljYWwt IOfcR562ZEQfcDmdBrLlzS FsZTwvdGQ+NVXwQFX4aRsk DGnhEYEkqK4wZTYbY8x9Xe OzTjH8HBso V9TwEONzbcwjFg36uB8kNl TdDoO4AQeaS1PflzV8ZNZf nDRsPBpjPXE9D56yj9Y1FL MwMDAwMDA7 nTI5uK1pfZuukpmkoQYduD oqxqFlyQmlHVwaKOxmL805 QAXjyTzrJz37sCAvnRubfh O6J6NdEhgr dHI+EF79OKNoLK65sLHstJ Gbi6raoIh1AlQcNOEnJIV1 vStgHTxay5MbJTSmF28rgJ Fux9W9ZBHw kAvqxSCxSnOmfUD2kT6zRD wvyobff3dzbbszJiwbo8fd yd25dL06V94sEMxpAIAuDM IzMCUiIHZh zRxlqf9yrX4wWl0+PGNvbC V9xBQ4gK7vYwBjFuO0TGiq E614ItIgxICyRdlpm0uak0 yzxKz1CoUu VMFgvtOqfEkrPEJ9m2KhXb 08E06qGRopSWDbHLXqQYWs HXWvaKjpqj1bsE0kOq7+PC 9cg7cdew51 jT00uFS+YODsYIZ7uDybXF bsDFNzvB5sSIafDwS2NVLq TqMvvI30vOSsRRwvJy4qvP wusJnnCV9y HUGfblnov359EwBlo0euED MyaLQrNVtfMXX4U03in3F4 DTLiGPCvYSO0vIF5qJ9vcY lnbjogbGVm dDsgdmVydGljYWwtYWxpZ2 58LOGriOjkIaGplWEaZ3or vzCULS3kEhourMO+PHRkIH K6nEakSBkw HOAghM6sLALnV7o6CnNzYk O4MXadC5YwqoH6VBJutFUm HHMkyCOClD4yvvnbb4ekmb ogIzAwMDAw GWo8TGq1EMPhgMugVvQrSG O7NyZ0SMY7bGNusA1dpCba oxemtP0cPdq+RklOOjwvdG Q+PHRkIHN0 eIsaKTznLYHuvG6cYAOnI0 g0FxGrLcT3ZIbpA2XupiM6 EXEnxZSvUOBpfAYNtZ1ptn lna7jqybao LyBrJIMhZLk6WPk9XQMovK maYfAxAPB1MuK4DOR1uJKb qF6ngLwukcxkcF8pGzq+TV JOOjwvdGQ+ KZOsBBI1wSnvMEhcDPGxgF 7eRUIhM0y6XkWmHfE8WMup P1ArxbV8GEEtuLYpQBJobA XXfT7didjn n3xnekfmUiVoFFPdGGt5KF g8IEDyvJccDnYrZSE8CcU6 ZMX6wTQhzU1icZnxvciwvI 9wOyc+UGF5 QGI3KJ51PW23D9AdZuhfaN FibGU+PHRhYmxlIHdpZHRo ZGxzJSZbReFjiWjqKP7gLd 9yZGVyLWNv bGxh (more content not included)... Normal [facility] IntraOperative Documentson 0 06-22-2020 IntraOperative Documents [id number]#1. 00CD:[address] [facility] Main OR Intraoperative Recor don 06-20-2020 Main OR Intraoperative Record IntraOp Document Type FT Summary Primary Physician: Jordan Bhakta DO Finalized Date/Time: 06/20/20 12:56:01 Pt. Name: ALESIA RECIOANDA Azalea Ramirez/Sex: 1995 Female Med Rec #: [id number] Physician: Jordan Bhakta DO Financial #: [id number] Pt. Type: A Room/Bed: [place] [address] Admit/Disch: 06/14/20 15:28:52 - 06/14/20 21:05:00 Institution: [...] Role Performed Anesthesiologist of Surgeon - Primary UNDERWRITER SOLICITATION DIRECTOR Record Time In 06/14/20 17:11:00 06/14/20 17:11:00 06/14/20 17:11:00 Time Out 06/14/20 19:10:00 06/14/20 19:10:00 06/14/20 19:10:00 Procedure CLAVICULAR FRACTURE CLAVICULAR FRACTURE CLAVICULAR FRACTURE ORIF(Left) ORIF(Left) ORIF(Left) Comments [facility] - [facility] STUDENT - SCRUBBED IN Last Modified By: Shreya RN, Alycia Cash RN, Alycia Yin RN 06/14/20 19:14:30 06/14/20 19:14:30 06/14/20 19:14:30 Entry 4 Entry 5 Entry 6 Case Attendee Julian SARGENT, Jhonny Cash RN, Isabella Johnson Role Performed Scrub - Primary Insurance Attorney - Primary Lean Process Deployment Consultant Time In 06/14/20 17:11:00 06/14/20 17:11:00 06/14/20 [...] Godfrey Graves Jr., D.O. gls Dictated: 06/14/2020 #[id number] Typed: 06/15/2020 #[id number] cc: Godfrey Graves Jr., D.O. [facility] Comment on above: Result Comment: Elec tronically Signed By: Godfrey Graves JR, DO\.br\Date and Time Signed: 06/18/20 09:48 EDT Postoperative Documentson Postoperative Documents [id number]#1. 00CD:127 [facility] Progress Note-Physicianon Progress Note-Physician Patient: ANTOINETTE [...] constipation, # 20 cap(s), Refills(s) 0, Pharmacy: [facility], 165.1, cm, 06/14/20 15:51:00 EDT, Height/Length [...] food, # 60 tab(s), Refills(s) 0, Pharmacy: [facility], 165.1, cm, 06/14/20 15:51:00 EDT, Height/Length Dosing, 74.6, kg, 06/14/20 15:51:00 EDT, Weight Dosing Problem list: All Problems Clavicle fracture / SNOMED CT 50139990 / Confirmed left Physical Examination Intake and Output Denies significant n/v and is tolerating p.o. No qualifying data available Respiratory: Adequate air exchange with congregation of preoperative function.. Cardiovascular: Cardiovascular function is [...] data available Respiratory: Adequate air exchange with congregation of preoperative function.. Cardiovascular: Cardiovascular function is [...] CLAVICLE. CLINICAL HISTORY: Fracture. COMMENT: 2 limited [id number] C-arm images were obtained in the OR. [...] Consent for Anesthesiaon Consent for Anesthesia [id number]#1. 00CD:[address] [facility] Discharge Instructionson Discharge Instructions [id number]#1. 00CD:[address] [facility] IntraOperative Documentson 0 06-15-2020 IntraOperative Documents [id number]#1. 00CD:[address] [facility] IntraOperative Documents [id number]#1. 00CD:[address] [facility] Preoperative Documentson Preoperative Documents [id number]#1. 00CD:[address] [facility] COVID-19 (MC)on [...] chain reaction (rt PCR) method on the [employer] system. This test has been authorized only [...] or revoked sooner. Performed By: #### 2 [id number] ####[address] [place] [address] SARS-CoV-2 (COVID-19) RNA AIDEE+probe Ql (Unsp spec) Pass Normal [facility] Comment on above: Performed By: #### 2 [id number] ####[address] [place] [address] Specimen source Nom (Unsp spec) Nasal Normal [facility] Comment on above: Performed By: #### 2 [id number] ####[address] [place] [address] Coding Summary.on 06-14-2020 Coding Summary. CD:[id number]:[id number] Gh 0bWw+PGhlYWQ+CT6VLYGtR 65jfGBnuH0ND1jJYG1UYBM XBPNEJT1LWD5noUV2SYpwD 2VybiAv SakfjHAeFB40OVy0ESY3tX xsFOlozA9awSBuS3r1HxVb GL62lN88QAtnAJVtWaH3Ha ZpbjsgbWFy C3qoJbIceJNqEoj+PHRhYm xlIHdpZHRoPScxMDAlJyBz lBgqSR4fFe5xQHBaGFRmyA xhcHNlOiBj g4baTRJuVTzxYM0qgNvwT3 EybPI6POGrj9u3De75nKU+ CQGtSXZ4qXtjDZlnr009Sj Dek5vlZWV6 rTHjSAyyUTX6L20fw8Z6RD RkKKFzEJB9bCV8pD8pvNwg gmylS0BraAFrSdJ1GLP1sG NbrE6rpWhv fyvynM2gFds+K90NOQ7MBQ NOCM0MIzi8N8EwWsybbFS+ YI42FCEfCY15gQMbsPIrs3 woqVz2XlAr TZHeABE5eYtlAKawf0LbPK OrS46wfNFlt2W9YDPonOsb lJOqHnTboAK7eB8gNXhkgd ewa0atqpag Vrygu7tdjk09eA31P53iNC zuWTVqDHH1MSOcYBGugSss ok8ufS5wZs7+JXeir1zjw1 ysvOe6MjAf SGVdhlAemEfgVAO4f5ZcDt 27P0GneBrpa3XnXtd7ri13 vXHhh2A9pGS6CGswRHEliY 5kRMtaStE9 YFVnPoGzjR65kKGlDDetYi 5rdFpxvJamHP3vPHIwvcol GXVgrW1iINRdbCQtiYfsYK 4wNTBpbjtm t149QiGbKKQ2WHIplSVhV4 HoyE5nOfJjDHDdAKTlM8Sc tHMoAGvfK907NMehEaU3HC FgsjPwY6Vs DTInwSswGzC5p3G5Hp8Fw2 GbxqhxVIE5CCprYQN7VhF3 ToMnUqV6B4SuXqz1NGWmnA qxMM9mL7Os NTBttfzuwcnzrHO4UYTwUK LpqW71hCKwMTgpRf5nq7E9 l941XQQwCXIbdI92Xa1brQ ogMTBwdCBU aA2gxmrub4rkmtdzZsDyCS WlIAw8MPb4NXFbsPrgSrJn DRY5BaV3JET6vATwaS0igC rxlappgR1t Oyc+T62inN6wGZW7IXA1ih vvTJXzboRbUG73AK37T1Aj PjwvdGFibGU+PGRpdiBzdH neYS6rMdNa z4zyz6OzLMksD2AiFOXoNE edSlg4UIFpTLL4pOF1cU2o APAcYWshw3X7rKV7N9Vqky Akhe0rz2nr MNGvIFkeF17stMPmj5K3HS UccGM3GILsmXlsCfZysB04 Oyc+YAYkbMlow3ZaSsajj1 mml2clqHu1 MpOkLFXpmwIbiRbsGDJ1d9 WoHf53G26oKHieETMxMTTh MCDtJLEmvEfbtk4spA1yUw 8+PGNvbCB3 jME9eX7nFGLkXtI6XEccQ1 47IjBckSIfXtybw1myy4hb yTd9UjOuTBKahkAhxVsxZQ W4r6QsWk83 L43hUIjtOMHjDIXzZPKsSR CrsBelpk1dpU6hGl8+PC9j j4ihre19rG95fVW+PHRkIH Z0hUxiAQek UGEunT6kAEvfBvH1GBXoWx XtlK33lRMhJAlpDg6jqWrq bOneFK2xHHZfrfudd821Qm Kzw0fiNOLy fWWwLTyaNEF5E09sa3G5KY DlWTQgFOV6eXQ0nW0vhQwf bjogbGVmdDsgdmVydGljYW etEMvlF864 IHRvcDsnPlBhdGllbnQgTm NxVQh9Z5YhFxu3XZLyaLyu MW3azDBiRXeoNh9ceVlnhC jgIW2tGLDl sarkc228EgFzl9gtIDRrsT BoUCdfKMG2P21cf8L1ERXe COUnVZF7kQY1eV8htAidqr ogbGVmdDsg vlTpzGouYUqlEWmmD186YB RvcDsnPkJpcnRoIERhdGU6 SH71RM43dFZzu3W1dWM9F1 BhZGRpbmct qaozeVO0FPTsGBOriB11Zc 8kpAbjUd3fZDEkCJW4BXXp mWWfC4SfzT9gPxMuJALzIY MpY0GptOSr NExyQ362FZvwVuN9TBQtdo NyW4ZsOUQteRkmUsQ5t8I6 Ds4LT0W5JB92CL97oVDjo7 U9xRQ5S2Ai DFUhekvlqaipvTS4YEQuIS OxiW05Eb8clJqwVp7yWDHw WFX6INZjkDIlL0LlaT9vEb AjMDAwMDAw K9PojPCdDDekH066WBgyLm V3OLHrueBkZ9KzSJLeyGif AcN3i1Y7Uc1XSJi4KB39AU 59oJMoe4I2 vAV3B8TaSAOhwzfwffpokO F0GYGuXLWdtM77Fn9hjStt Lo2aNRKjDYF6JYYqfLXjX7 HhzS8oMdQn TBZuSQObY3EpwAGvQFewG0 67CKtkDxU9JPTnlmPcK2Tp BPLiqBvaKbN2m3Z8Ds0JAG IbDT12HEM5 fZY9QS08YJ11H9SsYyryeX FibGU+PHRhYmxlIHdpZHRo GWyfCOCgSkAruZcoPV9iCq 9yZGVyLWNv gBfpyVPlTwWgr6jzDLZbKN kaWQ1dkVeeX5JbgZH7YHXi v3u0Kj62D47iA3SvaUF+PG YpjHG6nGQ3 sD7nBhPvEeU4KKygP830Ym OtwEWzEcoeo7mbz1excQv2 JjN5KTYdtsUuaAtoZDW6v4 HcDy22M32b IHdpZHRoPSIxNSUiIHZhbG qmvu8amA2aJa1+PGNvbCB3 sAZ7kO2lEeDlNbD5IDikN0 49InRvcCIv Edzps4cga7zjrYu4FdYcQS XvcjKmnXwqZEC0w0FlSk53 K1FnwSsny9NkMkg3mc01cI Vhs9P7jNT9 G7KpYMMbgrsxjKSttYlhNH 2sDITqivroRJCccY9iLNDa F9q9ToFhFqL5ARcnX3Pcxg N3ODOxeXId PZfuPEE4L43cs6Y3GRJxFE EmHHG0oET2mK1jrPvcvuxx bGVmdDsgdmVydGljYWwtYW muP757UUNf tIcuSEAfcF4sSCOlfZDceS uqMI3xIWQrczykWaRMEeXN PSwzWT5RLsYPJVXjYklrjD Q+PHRkIHN0 tGkaRHecPMSrmH8pOEKwD5 m8ZtSvZlL4ZRqrT9AkDIOx ycodEe79fM2aKtBxCsZ1OW ezJ7TktzL6 QIYchMOjHLgwRUU9J86uh6 E1TODlRBWaPXR1aLQ5vD0j bGlnbjogbGVmdDsgdmVydG ljYWwtYWxp H323AWBjoJsfAaArYiUyPv V2WMZ6C9SqPsh5UAWrwYrt QG9gsBFaNSopYs7shYhnbD lrYH6rBNUm xeetAHJikC3cXAJnvRHsyG msVG1oCXAwngajb485DjDb TQK6ELMctDDgQ9KdoW5oSw AjMDAwMDAw G0HivZUmTAxaG838SNvvFm G0OVYwnsOdX3KwRYUeiEto KbR5p3F3Tt0xLOSMNOAxub wvdGQ+PHRk JUE7uVkuQFupZBCiiZ9zPU RrY0z9UuFgVzP0TWcmF2Lj EQFtayttHi83wJ9lFhZaWk W8XPopZ2Ij mnG3VVCcrZPjEWwpIOJ3F2 4cu1L6HROhEGClSOB2bDR2 yL7zqQvazzrtjNBuqUmaxq VydGljYWwt HEejG758WVGbeSzcYcBofC FsZTwvdGQ+QFNpMZR9yRiv COpxKWNniR1nEEIeR9p7Bc TvFyC4MZen T3ZrDQMruttuBx90uP8uNk ZzGgV2YHawR3AjsyH4ICPl uBAaWXvbBNR0I98lb1N6YF MwMDAwMDA7 yCR1dB8rrFkwnpsicRWkzT tivbVvfVbxEKwyPUrjN719 AZIhhWpjUzJwJBLmHA2jgD wvdGQ+PC90 ha17B1OdSyeaYcv9OUUlAH W1pNT8nH9jJCKbODcnh3S3 gHM6L5BnhlLwir8ew6mfXC FsRRwfA54j yEFnt3X0DBEgvHO9MRYvlD nuZbMvjS90Mzc+PGNvbGdy y4IgDewsu3pei1cyiZn4Fb MwJSIgdmFs lKeiYVM1d2XoCo73T85nHW dpZHRoPSIzMCUiIHZhbGln rc5ivZ6nPx3+METhaJU6zL Z3lL8tRrMp VrQ2VKwgQ516ZwHhlPJyFq gry4hon5hdpEu0VpVnISRr ycMrxFoiFWN4i2ZgUg84O1 GbeTjkt1Zc Onm7yc82xTCxb4D2kFM1S6 NmHVOrhwanvVRywQzkJQ5q NMVkpozgBDRweC9qSHDfP9 p4CrDxUaP1 NXpnU4NhgfK4TUEevIVfUG IllIFKjA4xfmdbj4qvpmwz HfHpLJLhWHk5IXi5JDOgqE duOiBsZWZ0 JxU3AKM0bOSjaK4ubVlzny tovQ2tPes+TGb5l3ubmCGm IS5oyNU1ET64SE83jPDjg7 F9vWU2S1Oc ONPnkquqgvtbpIF8ESAtGB IqzD23Fs7ekNfjAw7jKHEl TYO6ZIMnbDBbR3SlmJ4dBl AjMDAwMDAw W0VixSMiQFoyD012WYecXb E3OKVwgtCsG2IlRDUudIsk TeV6l1Z3Rl6LAY65UD20LQ 06aSEpx6O1 tJE3M3SeKGRuoarmhgyyfT O5QVKdIENaiD98Pb6giCiv Ov4xPYQfXOI5KZEiyPMmO0 GkkC0sHbUs PMLpYBJoT1UccJObHGanF5 13NRwpAmN4AVJsziBjD1He AHXyoJwzAjF1f3G9Yd4WAv 85BG95AR11 qJRpz0S1vHN3T5AuTFCeoa wgexiktZP5SRRiCXQeuD57 Cl3gaZlfCx2aKHHsWQC5BK LmtEEwN1Eh nT3lGnJtUQXxOOLrS0IlbO BtRWnoO914YZczNaO3UWIh ryQbK7NxTEOniTjcBmH5s3 T1Dk6WSUht wpk6Y0LuHdikeVI+PC90YW YbJW65oXXudZNml2yvxHk3 SiSrPDKvFRP9oZmeXCrqz9 LcCOKoS61z bGFw (more content not included)... Normal [facility] Consent for Procedure/Surger yon 06-14-2020 Consent for Procedure/Surgery [id number] 0CD:[address] [facility] Consent for Treatmenton Consent for Treatment [id number]#[id number] D:127 [facility] Inpatient Patient Summaryon 06-14-2020 Inpatient Patient Summary [address] [id number] [facility] Clinical Discharge Instructions PERSON INFORMATION Name: ANTOINETTE RECIO [facility]#:[id number] PHYSICIANS Admitting Physician: Jordan Bhakta DO Attending Physician: Jordan Bhakta DO PCP: NONE, XXXX Discharge Diagnosis: Comment: PATIENT EDUCATION INFORMATION Instructions: Shoulder Cryocuff Patient Instructions - FT (CUSTOM); Post Op Patient Instructions - FT (Custom) (CUSTOM); Silvana Bhakta - Shoulder Replacement (Custom) Medication Leaflets: Follow up: With: Address: When: Jordan Bhakta [address] [place] [address] [facility] (1) 06/21/2020 8:45 AM Comments: Call for any problems. Keep scheduled appointment MEDICATION LIST [facility] [place], [place] [id number], [phone] acetaminophen-oxycodon e (Percocet 325 mg-5 mg Tab) 1-2 tab(s) Oral q4hr; as needed as needed for pain. Refills: 0. docusate (Colace 100 mg Cap) 1 Capsules By Mouth 2 times a day as needed for constipation. Refills: 0. Medications to Continue Taking That Have Changed [facility], [address], [place] [id number], [phone] START: naproxen (naproxen 500 mg Tab) 1 [...] RECIO /Sex: 1995 Female Med Rec #: [id number] Physician: Jordan Bhakta DO Financial #: [id number] Pt. Type: A Room/Bed: [place] [address] Admit/Disch: 06/14/20 15:28:52 - Institution: Case Times [...] Yvette Santa RN 06/14/20 19:45 Normal [facility] Main OR PACU II [facility] Main OR PACU II Record PACU Phase II Doc ument Type FT Summary Primary Physician: Jordan Bhakta DO Finalized Date/Time: 06/14/20 21:13:50 Pt. Name: ANTOINETTE RECIO Azalea De La Rosa./Sex: 1995 Female Med Rec #: [id number] Physician: Jordan Bhakta DO Financial #: [id number] Pt. Type: A Room/Bed: [facility] Admit/Disch: 06/14/20 15:28:52 - 06/14/20 21:05:00 [...] RECIO /Sex: 1995 Female Med Rec #: [id number] Physician: Jordan Bhakta DO Financial #: [id number] Pt. Type: A Room/Bed: [place] [address] Admit/Disch: 06/14/20 15:28:52 - Institution: Case Times [...] [facility] 06-14-2020 Monitor Record [id number]. 00CD:127 [facility] Operative Reporton Operative Report Patient: ANTOINETTE RECIO [...] Discharge Instructionon 06-14-2020 Outpatient Surgery Discharge Instruction [place] [id number] Patient Discharge Instructions PERSON INFORMATION Name: ANTOINETTE [...] Follow up: With: Address: When: Jordan Bhakta [address] [place], [place] [address] [address] Business (1) 06/21/2020 8:45 AM Comments: Call for any problems. Keep scheduled appointment Pharmacy Information: [facility] You may receive a survey from Molly Salmon asking you to rate your care experience. Your feedback is important and will help us understand what we do well and how we can improve the quality of care we provide to you, your loved ones and our community. It?s an honor to serve you. Thank you for choosing [facility] HERE ARE THE MEDICATION CHANGES THAT OCCURRED DURING YOUR HOSPITAL STAY [facility] [address], [address], [place] [id number], [phone] acetaminophen-oxycodon e (Percocet 325 mg-5 mg Tab) 1-2 tab(s) Oral q4hr; as needed as needed for pain. Refills: 0. docusate (Colace 100 mg Cap) 1 Capsules By Mouth 2 times a day as needed for constipation. Refills: 0. Medications to Continue Taking That Have Changed [facility] [address], [address] [place], [place] [id number], [phone] START: naproxen (naproxen 500 mg Tab) 1 Tablets By Mouth 2 times a day. with food. Refills: 0. Other Medications START: naproxen (naproxen 500 mg Tab) 1 Tablets By Mouth 2 times a day. Take one tab by mouth two times a day. Refills: 0. PATIENT EDUCATION INFORMATION Instructions: [place], [place] [facility] DISCHARGE INSTRUCTIONS: SHOULDER SURGERY [...] persistent vomiting. Jordan Bhakta, DO [facility] [address] [place] [address] Reviewed: Normal [facility] Patient Education - Texton 0 06-14-2020 Patient Education - Text [place], [place] [facility] DISCHARGE INSTRUCTIONS: SHOULDER SURGERY [...] vomiting. Jordan Bhakta, DO [facility] [address] [place], [place] [address] Reviewed: Normal [facility] BMPon 06-13-2020 Anion gap [Moles/Vol] 12 mmol/L Normal - [facility] Comment on above: Performed By: #### 2 [id number], [id number], [id number] ####[facility] [address] [place] [address] Calcium [Mass/Vol] 9.1 mg/dL Normal 8.9-11.1 [facility] Comment on above: Performed By: #### 2 055231, [id number], [id number] ####[facility] [address] [place] [place] [address] Chloride [Moles/Vol] 105 mmol/L Normal 101-111 [facility] Comment on above: Performed By: #### 2 374222, [id number], [id number] ####[facility] [address] [place] [address] CO2 [Moles/Vol] 29 mmol/L Normal 21-31 [facility] Comment on above: Performed By: #### 2 949417, [id number], [id number] ####[facility] [address] [place] [address] Creatinine [Mass/Vol] 0.7 mg/dL Normal 0.5-1.3 [facility] Comment on above: Performed By: #### 2 484483, [id number], [id number] ####[facility] [address] [place] [address] Glucose [Mass/Vol] 82 mg/dL Normal 55-199 [facility] Comment on above: Result Comment: If t his glucose result represents a fasting glucose, interpretation should refer to the following reference range: 55-99 mg/dL Performed By: #### 2 723107, [id number], [id number] ####[facility] [address] [place] [address] Potassium [Moles/Vol] 3.9 mmol/L Normal 3.5-5.3 [facility] Comment on above: Performed By: #### 2 571441, [id number], [id number] ####[facility] [address] [place] [place] [address] Sodium [Moles/Vol] 142 mmol/L Normal 135-145 [facility] Comment on above: Performed By: #### 2 680363, [id number], [id number] ####[facility] [address] [place] [address] Urea nitrogen [Mass/Vol] 14 mg/dL Normal 5-21 [facility] Comment on above: Performed By: #### 2 184604, [id number], [id number] ####[facility] [address] [place] [address] Urea nitrogen/Creatinine [Mass ratio] 20 No Units Normal 10-20 [facility] Comment on above: Performed By: #### 2 666054, [id number], [id number] ####[address] [address] CBC w/Indiceson 06-13-2020 Erythrocyte distribution width (RBC) [Ratio] 14.3 % High 10.9-14.2 [facility] Comment on above: Performed By: #### 2 318776, [id number], [id number] ####[address] [address] Hematocrit (Bld) [Volume fraction] 36.4 % Normal 34.0-46.0 [facility] Comment on above: Performed By: #### 2 326816, [id number], [id number] ####[address] [address] Hemoglobin (Bld) [Mass/Vol] 11.9 g/dL Low 12.0-16.0 [facility] Comment on above: Performed By: #### 2 [id number], [id number], [id number] ####[address] [address] MCH (RBC) [Entitic mass] 27.5 pg Normal 27.0-34.0 [facility] Comment on above: Performed By: #### 2 [id number], [id number], [id number] ####[address] [address] MCHC (RBC) [Mass/Vol] 32.6 g/dL Normal 31.4-36.0 [facility] Comment on above: Performed By: #### 2 [id number], [id number], [id number] ####[facility] [address] [place] [address] MCV (RBC) [Entitic vol] 84.4 fL Normal 80.0-100.0 [facility] Comment on above: Performed By: #### 2 702889, [id number], [id number] ####[address] [address] Platelet mean volume (Bld) [Entitic vol] 7.5 fL Normal 6.4-10.8 [facility] Comment on above: Performed By: #### 2 337562, [id number], 0368321 ####[address] [address] Platelets (Bld) [#/Vol] 319.0 E9/L Normal 150.0-500.0 [facility] Comment on above: Performed By: #### 2 641703, [id number], 9005154 ####[address] [address] RBC (Bld) [#/Vol] 4.3 E12/L Normal 4.3-5.9 [facility] Comment on above: Performed By: #### 2 490256, [id number], 2416369 ####[address] [address] WBC corrected for nucl RBC Auto (Bld) [#/Vol] 6.8 E9/L Normal 4.0-11.0 [facility] Comment on above: Performed By: #### 2 393317, 04355330, 6899807 ####[address] [address] Consent for Treatmenton Consent for Treatment [id number] [id number] 0CD:[address] [facility] Physician Orderon 06-13-2020 Physician Order [id number]#1. 00CD:[address] [facility] Physician Order [id number]#1. 00CD:[address] [facility] Progress Note-Physicianon [...] selected or recorded. Procedure history: Gastric sleeve ([id number]) in 2019 at 22 Years. Tonsillectomy ([id number]). Social History Social & Psychosocial Habits Alcohol [...] review: No qualifying data available . Plan [place] [employer] of Anesthesiologists (ASA) physical status classification: [...] Comment on above: Performed By: #### 2 [id number] #### [facility] [address] [place] [address] eGFRon 06-13-2020 GFR/1.73 sq M.predicted among blacks MDRD (S/P/Bld) [Vol rate/Area] mL/min/{1.73_m2} Normal >=59 [facility] Comment on above: Order Comment: Order added by Discern Expert. Result Comment: eGFR is race adjusted. AA=. Performed By: #### 2 010222, [id number], [id number] ####[facility] [address] [place] [address] GFR/1.73 sq M.predicted among non-blacks MDRD (S/P/Bld) [Vol rate/Area] mL/min/{1.73_m2} Normal >=59 [facility] Comment on above: Order Comment: Order added by Discern Expert. Result Comment: Cds Sales Advisor mile kidney disease could be indicated at eGFR's of less than 60 mL/min/1.73m2. Kidney failure is indicated at less than 15 mL/min/1.73m2. Performed By: #### 2 949870, 05120019, 0653994 ####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 [address] [place] [address] First Test Unknown Normal [facility] Comment on above: Performed By: #### 2 [id number] ####[facility] [address] [place] [address] Hospitalized? NO Normal [facility] Comment on above: Performed By: #### 2 [id number] ####[facility] [address] [place] [address] [facility] Comment on above: Performed By: #### 2 [id number] ####[facility] [address] [place] [address] ? Unknown Normal [facility] Comment on above: Performed By: #### 2 [id number] ####[facility] [address] [place] [address] Resides in a [facility] Setting NO Normal [facility] Comment on above: Performed By: #### 2 [id number] ####[address] [place] [address] Symptomatic as defined by [facility] Unknown Normal [facility] Comment on above: Performed By: #### 2 [id number] ####[address] [place] [address] Physician Orderon 06-12-2020 Physician Order [id number]#1.0 0CD:127 [facility] Consent for Treatmenton Consent for Treatment [id number] [id number] 0CD:127 [facility] Discharge Instructionson Discharge Instructions [id number]. 00CD:[address] [facility] ED Clinical Summaryon 2020 ED Clinical Summary [place] [id number] ED Clinical Summary Person Information Name: ANTOINETTE RECIO [facility] Age: 25 Years : 1995 Sex: Female Language: Danish PCP: Isaiah BHAKTA MD Marital Status: Visit [...] 06/11/2020 12:47:55 06/11/2020 12:47:55 06/11/2020 12:47:55 ADDRESS: [address] [place] [id number] PHYS DOC NOTES: MEDICAL INFORMATION: Prescriptions Given: [...] up: With: Address: When: Jordan Bernardo [address] [place] [address] Business (1) 06/12/2020 3:15 PM With: Address: When: Isaiah BHAKTA [address] [place] [address] Business (1) In 3 days DIAGNOSIS: Fracture of left clavicle Normal [facility] ED Note-Physicianon 06-12-19 ED Note-Physician Basic Information Time Seen: Sara Burdick DO 06/11/2020 12:18 Chief Complaint Pt reports broken collar bone and stitches above eye. [facility] [place] [facility] and sent to [place]. Pt reports still in pain and was [...] left clavicle. She was taken from the [facility] transferred to a hospital in [place] where she was discharged 20 minutes later [...] see the patient tomorrow at 315 in [place] and she is treated with anti-inflammatories and [...] Jordan Bhakta 06/12/2020 03:15 PM EDT [address] [place] [address]- Business (1) Additional Instructions: Isaiah BHAKTA In 3 days [address] [place] [address]- Business (1) Additional Instructions: Problem List/Past Medical [...] ED Patient Summaryon 021 ED Patient Summary [place] [address] Patient Discharge Instructions Person Information Name: ANTOINETTE RECIO Age: 25 Years Arrival Date: 06/11/2020 10:49:37 Discharge Diagnosis: Fracture of left clavicle Primary Care Physician: Isaiah BHAKTA MD Provider Information Primary Provider: Sara Burdick DO Advanced Director Construction Services:None The exam and treatment you received in the Emergency Department were for an urgent problem and are not intended as complete care. It is important that you follow up with a doctor, nurse practitioner, or physician?s media assistant for ongoing care. If your symptoms [...] Instructions: With: Address: When: Jordan Bernardo [address] [place] [address] Business (1) 06/12/2020 3:15 PM With: Address: When: Isaiah BHAKTA [address] [place] [address] Business (1) In 3 days In the event that this physician does not participate in your insurance network, please consult with your insurance company to find a nearby participating provider. Patient Education Materials: A MESSAGE TO ALL PATIENTS REGARDING OPIOIDS PRESCRIPTION OPIOIDS: WHAT YOU NEED TO KNOW Prescription opioids can be used to help relieve kovecnhj-oe-ohlvlu pain and are often prescribed following a [...] MD Transcribed by: MICHAEL Technologist: ABDULLAHI [facility] CBC AUTO DIFFon 06-10-2020 BASO # 0.1 103/ul Normal 0.0-0.1 [facility] Comment on above: Performed By: #### C BC #### [facility] [address] [id number] Kinjal Sherine Basophils/100 WBC (Bld) 0.5 % Normal 0.2-2.0 [facility] Comment on above: Performed By: #### C BC #### [facility] [address] [place] [address] Kinjal Sherine EO # 0.2 103/ul Normal 0.0-0.7 [facility] Comment on above: Performed By: #### C BC #### [facility] [address] [place] [address] Kinjal Sherine Eosinophils/100 WBC (Bld) 1.8 % Normal 0.9-7.0 [facility] Comment on above: Performed By: #### C BC #### [facility] [address] [place] [address] Kinjal Sherine Erythrocyte distribution width (RBC) [Ratio] 13.7 % Normal 11.0-15.0 [facility] Comment on above: Performed By: #### C BC #### [facility] [address] [address] Kinjal Sherine Hematocrit (Bld) [Volume fraction] 38.2 % Normal 36.0-48.0 [facility] Comment on above: Performed By: #### C BC #### [facility] [address] [id number] Kinjal Sherine Hemoglobin (Bld) [Mass/Vol] 11.9 g/dL Critically low 12.0-16.0 [facility] Comment on above: Performed By: #### C BC #### [facility] [address] [place] [address] Kinjal Sherine IG # 0.03 10e3/ul Normal 0.00-0.03 [facility] Comment on above: Performed By: #### C BC #### [facility] [address] [place] [address] Kinjal Sherine IG % 0.3 % Normal 0.0-0.5 [facility] Comment on above: Performed By: #### C BC #### [facility] [address] [place] [address] Kinjal Sherine LYMPH # 1.8 103/ul Normal 1.2-3.8 [facility] Comment on above: Performed By: #### C BC #### [facility] [address] [place] [address] Kinjal Sherine Lymphocytes/100 WBC (Bld) 17.4 % Critically low 20.5-60.0 [facility] Comment on above: Performed By: #### C BC #### [facility] [address] [place] [address] Kinjal Sherine MANUAL DIFF REQ NO Normal [facility] Comment on above: Performed By: #### C BC #### [facility] [address] [place] [address] Kinjal Sherine MCH (RBC) [Entitic mass] 27.0 pg Normal 26.7-34.0 [facility] Comment on above: Performed By: #### C BC #### [facility] [address] [place] [address] Kinjalroverto Mckeonen MCHC (RBC) [Mass/Vol] 31.2 g/dL Normal 29.9-35.2 [facility] Comment on above: Performed By: #### C BC #### [facility] [address] [place] [address] Kinjal Sherine MCV (RBC) [Entitic vol] 86.8 fL Normal 81.0-99.0 [facility] Comment on above: Performed By: #### C BC #### [facility] [address] [place] [address] Kinjal Sherine MONO # 0.3 103/ul Normal 0.3-0.8 [facility] Comment on above: Performed By: #### C BC #### [facility] [address] [place] [address] Kinjal Basurto Monocytes/100 WBC (Bld) 3.2 % Normal 1.7-12.0 [facility] Comment on above: Performed By: #### C BC #### [facility] [address] [place] [address] Kinjal Basurto NEUT # 7.8 103/ul Critically high 1.4-6.5 [facility] Comment on above: Performed By: #### C BC #### [facility] [address] [place] [address] Kinjal Basurto Neutrophils/100 WBC (Bld) 76.8 % Critically high 43.0-75.0 [facility] Comment on above: Performed By: #### C BC #### [facility] [address] [place] [address] Kinjal Basurto Platelet mean volume (Bld) [Entitic vol] 9.1 fL Critically low 9.5-13.5 [facility] Comment on above: Performed By: #### C BC #### [facility] [address] [place], [place] [address] Kinjalroverto Mckeonen PLT 350 103/ul Normal 150-450 [facility] Comment on above: Performed By: #### C BC #### [facility] [address] [place] [address] Kinjal Sherine RBC 4.40 106/ul Normal 4.20-5.40 [facility] Comment on above: Performed By: #### C BC #### [facility] [address] [place], [place] [address] Kinjal Sherine WBC 10.1 103/ul Normal 4.0-11.0 [facility] Comment on above: Performed By: #### C BC #### [facility] [address] [place], [place] [address] Kinjal Sherine CT CHEST W CONon 06-10-2020 [...] ARELI RIVERA Date: 2020-06-10 03:43 Normal [facility] CT CSPINE WO CONon CT [...] Haylie VILLAR Date: 2020-06-10 01:09 Normal [facility] CT HEAD WO CONon 06-10-2020 [...] ARELI RIVERA Date: 2020-06-10 01:01 Normal [facility] DRUG SCREEN RAPID (URINE)on 06-10-2020 AMP Negative Normal NEGATIVE [facility] Comment on above: Performed By: #### E RUR, DRUGRPD #### [facility] [address] [place] [address] Kinjal Sherine BAR Negative Normal NEGATIVE [facility] Comment on above: Performed By: #### E RUR, DRUGRPD #### [facility] [address] [place] [address] Kinjal Sherine BUP Negative Normal NEGATIVE [facility] Comment on above: Performed By: #### E RUR, DRUGRPD #### [facility] [address] [place] [address] Kinjal Sherine BZO Negative Normal NEGATIVE [facility] Comment on above: Performed By: #### E RUR, DRUGRPD #### [facility] [address] [place] [address] Kinjal Sherine CURTIS Negative Normal NEGATIVE [facility] Comment on above: Performed By: #### E RUR, DRUGRPD #### [facility] [address] [place] [address] Kinjal Sherine CUT-OFFS SEE BELOW Normal [facility] Comment on above: Result Comment: [...] Performed By: #### [place] RUR DRUGRPD #### [facility] [address] [place] [address] Kinjal Sherine DRUG CUT HEADER DRUG CLASS TEST SYST EM CUT-OFF CONCENTRATIONS ARE FOLLOWS: Normal [facility] Comment on above: Performed By: #### E RUR, DRUGRPD #### [facility] [address] [place] [address] Kinjal Sherine mAMP Negative Normal NEGATIVE [facility] Comment on above: Performed By: #### [place] RUR, DRUGRPD #### [facility] [address] [place] [address] Kinjal Sherine MTD Negative Normal NEGATIVE [facility] Comment on above: Performed By: #### [place] RUR DRUGRPD #### [facility] [address] [place] [address] Kinjal Sherine OPI Positive Abnormal NEGATIVE [facility] Comment on above: Performed By: #### [place] RUR, DRUGRPD #### [facility] [address] [place] [address] Kinjal Sherine OXY Negative Normal NEGATIVE [facility] Comment on above: Performed By: #### [place] RUR, DRUGRPD #### [facility] [address] [place] [address] Kinjal Sherine PCP Negative Normal NEGATIVE [facility] Comment on above: Performed By: #### E RUR, DRUGRPD #### [facility] [address] [place] [address] Kinjal Sherine PPX Negative Normal NEGATIVE [facility] Comment on above: Performed By: #### [place] RUR, DRUGRPD #### [facility] [address] [place] [address] Kinjal Sherine TCA Negative Normal NEGATIVE [facility] Comment on above: Performed By: #### E RUR, DRUGRPD #### [facility] [address] [place] [address] Kinjal Sherine THC Negative Normal NEGATIVE [facility] Comment on above: Performed By: #### E RUR, DRUGRPD #### [facility] [address] [place] [address] Kinjal Basurto ER URINE PROFILEon 1 Bilirubin Ql (U) Negative Normal NEGATIVE [facility] Comment on above: Performed By: #### E RUR, DRUGRPD #### [facility] [address] [place] [address] Kinjal Sherine Clarity (U) CLEAR Normal CLEAR [facility] Comment on above: Performed By: #### E RUR, DRUGRPD #### [facility] [address] [place] [address] Kinjal Sherine Color (U) LT. YELLOW Normal YELLOW [facility] Comment on above: Performed By: #### E RUR, DRUGRPD #### [facility] [address] [place] [address] Kinjal Basurto ERUAHD A micrscopic examination will be performed if indicated. Normal [facility] Comment on above: Performed By: #### E RUR, DRUGRPD #### [facility] [address] [place] [address] Kinjal Sherine Glucose Ql (U) Negative Normal NEGATIVE [facility] Comment on above: Performed By: #### E RUR, DRUGRPD #### [facility] [address] [place] [address] Kinjal Sherine Hemoglobin Ql (U) Negative Normal NEGATIVE [facility] Comment on above: Performed By: #### E RUR, DRUGRPD #### [facility] [address] [place] [address] Kinjal Sherine Ketones Ql (U) Negative Normal NEGATIVE [facility] Comment on above: Performed By: #### E RUR, DRUGRPD #### [facility] [address] [place] [address] Kinjal Sherine LEUKOCYTES Negative Normal NEGATIVE [facility] Comment on above: Performed By: #### E RUR, DRUGRPD #### [facility] [address] [place] [address] Kinjal Basurto Nitrite Ql (U) Negative Normal NEGATIVE [facility] Comment on above: Performed By: #### [place] PETERSEN DRUGCARLOS A #### [facility] [address] [place] [address] Kinjal Basurto pH (U) 7.5 [pH] Normal 5-9 [facility] Comment on above: Performed By: #### [place] PETERSEN DRUGHARRYD #### [facility] [address] [place] [address] Kinjal Basurto SPEC GRAVITY 1.010 Normal 1.005-<=1.02 5 [facility] Comment on above: Performed By: #### [place] PETERSEN DRUGCARLOS A #### [facility] [address] [place] [address] Kinjal Basurto UA PROTEIN Negative Normal NEGATIVE/ TRACE [facility] Comment on above: Performed By: #### [place] PETERSEN DRUGCARLOS A #### [facility] [address] [place] [address] Kinjal Basurto UR MICRO IND NOT INDICATED Normal [facility] Comment on above: Performed By: #### [place] PETERSEN DRUGCARLOS A #### [facility] [address] [place] [address] Kinjal Basurto Urobilinogen Qn (U) 0.2 {Jazmine'U}/dL Normal 0.2 - 1. 0 [facility] Comment on above: Performed By: #### [place] PETERSEN DRUGHARRYD #### [facility] [address] [place] [address] Kinjal Basurto ETHANOL (BLD ALC)on 06-11-19 21 ALC NOTE NOTE: 80 mg/dl is th e legal limit for a blood alcohol level Normal [facility] Comment on above: Performed By: #### E TH ####[facility] [address] [place] [address]Kinjal Basurto Ethanol [Mass/Vol] 200 mg/dL Normal [facility] Comment on above: Performed By: #### E TH ####[facility] [address] [place], [place] [address]Gerroverto Basurto PROF 14(COMP METB)on 021 Albumin [Mass/Vol] 3.8 g/dL Normal 3.5-5.0 [facility] Comment on above: Performed By: #### C MP #### [facility] [address] [id number] Kinjal Sherine Albumin/Globulin [Mass ratio] 1.2 {ratio} Normal [facility] Comment on above: Performed By: #### C MP #### [facility] [address] [place], [place] [address] Kinjal Sherine ALP [Catalytic activity/Vol] 54 U/L Normal 38-126 [facility] Comment on above: Performed By: #### C MP #### [facility] [address] [place] [address] Kinjal Sherine ALT [Catalytic activity/Vol] 19 U/L Normal 9-52 [facility] Comment on above: Performed By: #### C MP #### [facility] [address] [address] Kinjal Sherine Anion gap [Moles/Vol] 12.2 mmol/L Normal [facility] Comment on above: Performed By: #### C MP #### [facility] [address] [place] [address] Kinjal Sherine AST [Catalytic activity/Vol] 13 U/L Critically low 14-36 [facility] Comment on above: Performed By: #### C MP #### [facility] [address] [place] [address] Kinjal Sherine Bilirubin [Mass/Vol] 0.3 mg/dL Normal 0.2-1.3 [facility] Comment on above: Performed By: #### C MP #### [facility] [address] [place], [place] [address] Kinjal Sherine Calcium [Mass/Vol] 8.4 mg/dL Normal 8.4-10.2 [facility] Comment on above: Performed By: #### C MP #### [facility] [address] [place], [place] [address] Kinjal Sherine Chloride [Moles/Vol] 109 mmol/L Critically high 98-107 [facility] Comment on above: Performed By: #### C MP #### [facility] [address] [id number] Kinjal Sherine CO2 [Moles/Vol] 27.5 mmol/L Normal 22.0-30.0 [facility] Comment on above: Performed By: #### C MP #### [facility] [address] [place], [place] [address] Kinjal Sherine Creatinine [Mass/Vol] 0.73 mg/dL Normal 0.52-1.04 [facility] Comment on above: Performed By: #### C MP #### [facility] [address] [place], [place] [address] Kinjal Sherine EGFR-AF ESTONIAN >60 Normal >=60 [facility] Comment on above: Performed By: #### C MP #### [facility] [address] [place] [address] Kinjal Sherine EGFR-NON AF ESTONIAN >60 Normal >=60 [facility] Comment on above: Performed By: #### C MP #### [facility] [address] [place] [address] Kinjal Sherine Globulin (S) [Mass/Vol] 3.3 g/dL Normal T [facility] Comment on above: Performed By: #### C MP #### [facility] [address] [place] [address] Kinjal Sherine Glucose [Mass/Vol] 85 mg/dL Normal 74-106 [facility] Comment on above: Performed By: #### C MP #### [facility] [address] [place] [address] Kinjal Sherine Potassium [Moles/Vol] 3.7 mmol/L Normal 3.4-5.0 [facility] Comment on above: Performed By: #### C MP #### [facility] [address] [place], [place] [address] Kinjal Sherine Protein [Mass/Vol] 7.1 g/dL Normal 6.1-8.2 [facility] Comment on above: Performed By: #### C MP #### [facility] [address] [place], [place] [address] Kinjal Basurto Sodium [Moles/Vol] 145 mmol/L Normal 137-145 [facility] Comment on above: Performed By: #### C MP #### [facility] [address] [place], [place] [address] Kinjal Basurto Urea nitrogen [Mass/Vol] 9.0 mg/dL Normal 7.0-17.0 [facility] Comment on above: Performed By: #### C MP #### [facility] [address] [place] [address] Kinjal Basurto Urea nitrogen/Creatinine [Mass ratio] 12.3 mg/mg Normal [facility] Comment on above: Performed By: #### C MP #### [facility] [address] [address] Kinjal Basurto Rapid Covid-19 PCR (CVDRPD)o n 06-10-2020 SARS-CoV-2 (COVID-19) RNA AIDEE+probe Ql (Unsp spec) Not detected Normal NOT DETECTED [facility] Comment on above: Result Comment: This test is not yet approved or cleared by the [place] Food and Drug Administration (FDA). This test was developed by [employer], [place], [place]. The performance characteristics of this test were validated by [facility]. The results are not intended to be used as the sole means for clinical diagnosis or patient management decisions. [facility] is authorized under Clinical Laboratory Improvement Amendments (CLIA) to perform high- complexity testing. When diagnostic testing is negative, the possibility of a false negative should be considered in the context of a patient's recent exposures and the presence of clinical signs and symptoms consistent with SARS-CoV-2. Performed By: #### C VDRPD ####[facility] [address] [place], [place] [address]Zlnuhn Karen XR CLAVICLE LTon 06-10-2020 XR CLAVICLE [...] by: Haylie VILLAR Date: 2020-06-10 01:50 Normal [facility] XR SHOULDER LT 2V or >on [...] by: BENNY ARMSTRONG Date: 2020-06-10 01:45 Normal [facility] Cult, Bloodon 2018 Cult, Blood Specimen Description .BLOOD Special Requests RT HAND Culture NO GROWTH 6 DAYS Report Status FINAL 2018 [facility] Comment on above: Performed By: #### B CUL2 ####[facility] [place], [place] [id number] lab Director: Reed Mckeon MD [facility],Bloodon 2018 Cult,Blood Specimen Description .BLOOD Special Requests L ARM 10CC Culture NO GROWTH 6 DAYS Report Status FINAL 2018 [facility] Comment on above: Performed By: #### B C ####[facility] [place], [place] [id number] lab Director: Reed Mckeon MD Basic Metab w/rfx MGon 04-16 (cont.) [facility] Comment on above: Result Comment: Aver age GFR for 20-29 years old: 116 mL/min/1.73sq m Chronic Kidney Disease: <60 mL/min/1.73sq m Kidney failure: <15 mL/min/1.73sq m eGFR calculated using average adult body mass. Additional eGFR calculator available at: http://www.3rd Planet.BlueSnap/multiple_crcl_2012.htm Performed By: #### C BC, BMPX ####[facility] [address] [place] [address] Lab Director: Reed Mckeon MD Anion gap molar conc 13 mmol/L Normal 9-17 [facility] Comment on above: Performed By: #### C BC, BMPX ####[facility] [address] [place], [place] [id number])[phone] Director: Reed Mckeon MD Calcium mass conc 8.7 mg/dL Normal 8.6-10.4 [facility] Comment on above: Performed By: #### C BC, BMPX ####[facility] [address] [place], [place] [phone] Director: Reed Mckeon MD Chloride molar conc 110 mmol/L High 98-107 [facility] Comment on above: Performed By: #### C BC, BMPX ####[facility] [address] [place], [place] [phone] Director: Reed Mckeon MD CO2 molar conc 18 mmol/L Low 20-31 [facility] Comment on above: Performed By: #### C BC, BMPX ####[facility] [address] [place], [place] [phone] Director: Reed Mckeon MD Creatinine mass conc 0.49 mg/dL Low 0.50-0.90 [facility] Comment on above: Performed By: #### C BC, BMPX ####[facility] [address] [place], [place] [phone] Director: Reed Mckeon MD GFR, Amer >60 Normal >60 [facility] Comment on above: Performed By: #### C BC, BMPX ####[facility] [address] [place] [address] Lab Director: Reed Mckeon MD GFR,non Amer >60 Normal >60 [facility] Comment on above: Performed By: #### C BC, BMPX ####[facility] [address] [place], [place] [phone] Director: Reed Mckeon MD Glucose mass conc 74 mg/dL Normal 70-99 [facility] Comment on above: Performed By: #### C BC, BMPX ####[facility] [address] [place] [address] Lab Director: Reed Mckeon MD Potassium molar conc 4.2 mmol/L Normal 3.7-5.3 [facility] Comment on above: Performed By: #### C BC, BMPX ####[facility] [address] [place], [place] [phone] Director: Reed Mckeon MD Sodium molar conc 141 mmol/L Normal 135-144 [facility] Comment on above: Performed By: #### C BC, BMPX ####[facility] [address] [place], [place] [phone] Director: Reed Mckeon MD Urea nitrogen mass conc 6 mg/dL Normal 6-20 [facility] Comment on above: Performed By: #### C BC, BMPX ####[facility] [address] [place], [place] [phone] Director: Reed Mckeon MD BUN/CRE Ratio NOT REPORTED Normal 9-20 [facility] Comment on above: Performed By: #### C BC, BMPX ####[facility] [address] [place], [place] [phone] Director: Reed Mckeon MD Staging: NOT REPORTED Normal [facility] Comment on above: Performed By: #### C BC, BMPX ####[facility] [address] [place] [address] lab Director: Reed Mckeon MD CBCon 04-16-2018 Erythrocyte distribution width Ratio (RBC) 12.9 % Normal 11.8-14.4 [facility] Comment on above: Performed By: #### C BC, BMPX ####[facility] [address] [place] [address] lab Director: Reed Mckeon MD Hematocrit Volume Fraction (Bld) 33.9 % Low 36.3-47.1 [facility] Comment on above: Performed By: #### C BC, BMPX ####[facility] [address] [place] [address] lab Director: Reed Mckeon MD Hemoglobin mass conc (Bld) 10.6 g/dL Low 11.9-15.1 [facility] Comment on above: Performed By: #### C BC, BMPX ####[facility] [address] [place], [place] [phone] Director: Reed Mckeon MD MCH Entitic mass (RBC) 28.3 pg Normal 25.2-33.5 [facility] Comment on above: Performed By: #### C BC, BMPX ####[facility] [address] [place] [address] Lab Director: Reed Mckeon MD MCHC mass conc (RBC) 31.3 g/dL Normal 28.4-34.8 [facility] Comment on above: Performed By: #### C BC, BMPX ####[facility] [address] [place], [place] [phone] Director: Reed Mckeon MD MCV Entitic volume (RBC) 90.6 fL Normal 82.6-102.9 [facility] Comment on above: Performed By: #### C BC, BMPX ####[facility] [address] [place] [address] Lab Director: Reed Mckeon MD NRBC Automated 0.0 per 100 WBC Normal 0.0 [facility] Comment on above: Performed By: #### C BC, BMPX ####[facility] [address] [place] [address] Lab Director: Reed Mckeon MD Platelet mean volume Entitic volume (Bld) 9.8 fL Normal 8.1-13.5 [facility] Comment on above: Performed By: #### C BC, BMPX ####[facility] [address] [place] [address] Lab Director: Reed Mckeon MD Platelets #/vol (Bld) 257 10*3/uL Normal 138-453 [facility] Comment on above: Performed By: #### C SARWAT, BMPX ####[facility] [address] [place] [address] [phone] Director: Reed Mckeon MD RBC #/vol (Bld) 3.74 10*6/uL Low 3.95-5.11 [facility] Comment on above: Performed By: #### C SARWAT, BMPX ####[facility] [address] [place] [address] Lab Director: Reed Mckeon MD WBC #/vol (Bld) 5.8 10*3/uL Normal 3.5-11.3 [facility] Comment on above: Performed By: #### C BC, BMPX ####[facility] [address] [place] [address] [phone] Director: Reed Mckeon MD Cult,Respiratoryon 9 Cult,Respiratory Specimen Description .EXPECTORATED SPUTUM Special Requests NOT REPORTED Direct Exam >10 EPITHELIAL CELLS/LPF: SPECIMEN IS CONTAMINATED WITH ORAL PHARYNGEAL YOGESH AND IS UNACCEPTABLE FOR BACTERIAL CULTURE. PLEASE SUBMIT ANOTHER SPECIMEN. EVERETTE Mathews NOTIFIED Culture NOT REPORTED Report Status FINAL 04/16/2018 Normal [facility] Comment on above: Performed By: #### R ESPC ####[address] [place] [address] Lab Director: Reed Mckeon MD Troponinon 04-16-2018 Troponin I.cardiac mass conc ng/mL Normal 0-14 [facility] Comment on above: Result Comment: High Sensitivity Troponin values cannot be compared with other Troponin methodologies. Patients with high levels of Biotin oral intake (i.e >5mg/day) may have falsely decreased Troponin levels. Samples collected within 8 hours of biotin intake may require additional information for diagnosis. Performed By: #### T ROPI ####[facility] [place] [address] lab Director: Reed Mckeon MD Gram Stainon 04-15-2018 Microscopic observation Gram stain Nom (Unsp spec) Specimen Description .EXPECTORATED SPUTUM Special Requests NOT REPORTED Direct Exam DUPLICATE ORDER Report Status FINAL 04/15/2018 Normal [facility] Comment on above: Performed By: #### P PPVS #### [facility] [address] [place] [address] HCG Screen, Bloodon 04-16-19 19 HCG Qn Negative Normal NEG [facility] Comment on above: Result Comment: Spec imens with hCG levels near the threshold of the test (25 mIU/mL) may give a negative or indeterminate result. In such cases, another test should be performed with a new specimen in 48-72 hours. If early is suspected clinically in this setting, correlation with quantitative serum b-hCG level is suggested. [facility] has confirmed the use of plasma for this test. This has not been cleared or approved by the U.S. Food and Drug Administration. The FDA has determined that such clearance is not necessary. Performed By: #### P PPVS #### [facility] [address] [place], [place] [phone] Legionella Ag, Uron 04-16-19 19 Legionella Ag, [...] of this test. Report Status FINAL 04/15/2018 [facility] Comment on above: Performed By: #### U LAG ####[address] [phone])[phone] Director: Reed Mckeon MD [facility] Viral Panelon 9 Adenovirus Not Detected Normal [facility] Comment on above: Performed By: #### P PPVS #### [address] [address] Bordetella pertussis Not Detected Normal [facility] Comment on above: Performed By: #### P PPVS #### [address] [address] Chlamyd.pneumoniae Not Detected Normal [facility] Comment on above: Performed By: #### P PPVS #### [address] [address] Coronavirus 229E Not Detected Normal [facility] Comment on above: Performed By: #### P PPVS #### [address] [address] Coronavirus HKU1 Not Detected Normal [facility] Comment on above: Performed By: #### P PPVS #### [address] [address] Coronavirus NL63 Not Detected Normal [facility] Comment on above: Performed By: #### P PPVS #### [address] [address] Coronavirus OC43 Not Detected Normal [facility] Comment on above: Performed By: #### P PPVS #### [address] [address] Human Metapneumo Not Detected Normal [facility] Comment on above: Performed By: #### P PPVS #### [address] [address] Influenza A Not Detected Normal [facility] Comment on above: Performed By: #### P PPVS #### [address] [address] Influenza B Not Detected Normal [facility] Comment on above: Performed By: #### P PPVS #### [address] [address] Mycoplas.pneumoniae Not Detected Normal [facility] Comment on above: Result Comment: Perf ormed by multiplexed nucleic acid assay. Performed By: #### P PPVS #### [address] [address] Parainfluenza 1 Not Detected Normal [facility] Comment on above: Performed By: #### P PPVS #### [address] [address] Parainfluenza 2 Not Detected Normal [facility] Comment on above: Performed By: #### P PPVS #### [address] [address] Parainfluenza 3 Not Detected Normal [facility] Comment on above: Performed By: #### P PPVS #### [facility] [employer] [address] [place] [address] Parainfluenza 4 Not Detected Normal [facility] Comment on above: Performed By: #### P PPVS #### [address] [address] Resp Syncytial Virus Not Detected Normal [facility] Comment on above: Performed By: #### P PPVS #### [address] [address] Rhino/Enterovirus Not Detected Normal [facility] Comment on above: Performed By: #### P PPVS #### [address] [address] Influenza A H1 NOT REPORTED Normal [facility] Comment on above: Performed By: #### P PPVS #### [address] [address] Influenza A H1-2009 NOT REPORTED Normal [facility] Comment on above: Performed By: #### P PPVS #### [address] [address] Influenza A H3 NOT REPORTED Normal [facility] Comment on above: Performed By: #### P PPVS #### [address] [address] Source: .NASOPHARYNGEAL SWAB Normal [facility] Comment on above: Performed By: #### P PPVS #### [address] [address] Strep pneum Ag,CSF/Uron 03-0 Strep pneum Ag,CSF/Ur Specimen Descripti on .CLEAN CATCH URINE Special Requests NOT REPORTED Direct Exam NEGATIVE: Strep pneumoniae antigen not detected Report Status FINAL 04/15/2018 Normal [facility] Comment on above: Performed By: #### S PAG ####[address] [address] Lab Director: Reed Mckeon MD Troponinon 04-15-2018 Troponin I.cardiac mass conc NOT REPORTED Normal <0.03 [facility] Comment on above: Performed By: #### T ROPI ####[facility] [address] [place], [place] [id number] Lab Director: Reed Mckeon MD Troponin I.cardiac mass conc ng/mL Normal 0-14 [facility] Comment on above: Result Comment: High Sensitivity Troponin values cannot be compared with other Troponin methodologies. Patients with high levels of Biotin oral intake (i.e >5mg/day) may have falsely decreased Troponin levels. Samples collected within 8 hours of biotin intake may require additional information for diagnosis. Performed By: #### P PPVS #### [facility] [address] [place], [place] [phone] Troponin I.cardiac mass conc NOT REPORTED Normal <0.03 [facility] Comment on above: Performed By: #### P PPVS #### [facility] [address] [place], [place] [phone] XR CHEST PORTABLEon 04-16-19 XR CHEST PORTABLE EXAMINATION: SINGLE XRAY VIEW OF THE CHEST 04/15/2018 3:19 pm COMPARISON: 04/02/2018 HISTORY: ORDERING SYSTEM PROVIDED HISTORY: transferred from outlying facility due to PNA. POD#3 s/p lap sleeve gastrectomy. TECHNOLOGIST PROVIDED HISTORY: transferred from [facility] due to PNA. POD#3 s/p [...] MD 04/15/18 Final result Normal [facility] [place] ESOPHAGRAMon 04-14-2018 [place] ESOPHAGRAM [...] persistent dysphagia and burning sensation. FINDINGS: [employer] employee images were obtained of the upper abdomen [...] MD 04/14/18 Final result Normal [facility] Basic Metabolic Profon 04-13 (cont.) Normal [facility] Comment on above: Result Comment: Aver age GFR for 20-29 years old: 116 mL/min/1.73sq m Chronic Kidney Disease: <60 mL/min/1.73sq m Kidney failure: <15 mL/min/1.73sq m eGFR calculated using average adult body mass. Additional eGFR calculator available at: http://www.3rd Planet.com/multiple_crcl_2012.htm Performed By: #### P PPVS #### [facility] [address] [place] [address] Anion gap molar conc 11 mmol/L Normal 9-17 [facility] Comment on above: Performed By: #### P PPVS #### [facility] [address] [place] [address] Calcium mass conc 8.8 mg/dL Normal 8.6-10.4 [facility] Comment on above: Performed By: #### P PPVS #### [address] [address] Chloride molar conc 104 mmol/L Normal 98-107 [facility] Comment on above: Performed By: #### P PPVS #### [address] [address] CO2 molar conc 24 mmol/L Normal 20-31 [facility] Comment on above: Performed By: #### P PPVS #### [facility] [employer] [address] [place] [address] Creatinine mass conc 0.68 mg/dL Normal 0.50-0.90 [facility] Comment on above: Performed By: #### P PPVS #### [address] [address] GFR, Amer >60 Normal >60 [facility] Comment on above: Performed By: #### P PPVS #### [facility] [employer] [address] [place] [address] GFR,non Amer >60 Normal >60 [facility] Comment on above: Performed By: #### P PPVS #### [address] [address] Glucose mass conc 90 mg/dL Normal 70-99 [facility] Comment on above: Performed By: #### P PPVS #### [address] [address] Potassium molar conc 4.4 mmol/L Normal 3.7-5.3 [facility] Comment on above: Performed By: #### P PPVS #### [address] [address] Sodium molar conc 139 mmol/L Normal 135-144 [facility] Comment on above: Performed By: #### P PPVS #### [address] [address] Urea nitrogen mass conc 5 mg/dL Low 6-20 [facility] Comment on above: Performed By: #### P PPVS #### [address] [address] BUN/CRE Ratio NOT REPORTED Normal 9-20 [facility] Comment on above: Performed By: #### P PPVS #### [address] [address] Staging: NOT REPORTED Normal [facility] Comment on above: Performed By: #### P PPVS #### [address] [address] CBCon 04-13-2018 Erythrocyte distribution width Ratio (RBC) 12.9 % Normal 11.8-14.4 [facility] Comment on above: Performed By: #### P PPVS #### [address] [address] Hematocrit Volume Fraction (Bld) 36.8 % Normal 36.3-47.1 [facility] Comment on above: Performed By: #### P PPVS #### [address] [address] Hemoglobin mass conc (Bld) 11.7 g/dL Low 11.9-15.1 [facility] Comment on above: Performed By: #### P PPVS #### [address] [address] MCH Entitic mass (RBC) 28.3 pg Normal 25.2-33.5 [facility] Comment on above: Performed By: #### P PPVS #### [address] [address] MCHC mass conc (RBC) 31.8 g/dL Normal 28.4-34.8 [facility] Comment on above: Performed By: #### P PPVS #### [address] [address] MCV Entitic volume (RBC) 88.9 fL Normal 82.6-102.9 [facility] Comment on above: Performed By: #### P PPVS #### [address] [address] NRBC Automated 0.0 per 100 WBC Normal 0.0 [facility] Comment on above: Performed By: #### P PPVS #### [address] [address] Platelet mean volume Entitic volume (Bld) 10.1 fL Normal 8.1-13.5 [facility] Comment on above: Performed By: #### P PPVS #### [address] [address] Platelets #/vol (Bld) 306 10*3/uL Normal 138-453 [facility] Comment on above: Performed By: #### P PPVS #### [address] [address] RBC #/vol (Bld) 4.14 10*6/uL Normal 3.95-5.11 [facility] Comment on above: Performed By: #### P PPVS #### [address] [address] WBC #/vol (Bld) 8.1 10*3/uL Normal 3.5-11.3 [facility] Comment on above: Performed By: #### P PPVS #### [address] [address] [place] ESOPHAGRAMon 03-05-2019 FL ESOPHAGRAM EXAMINATION: SINGLE [...] MD 04/13/18 Final result Normal [facility] Basic Metabolic Profon 04-12 (cont.) Normal [facility] Comment on above: Result Comment: Aver age GFR for 20-29 years old: 116 mL/min/1.73sq m Chronic Kidney Disease: <60 mL/min/1.73sq m Kidney failure: <15 mL/min/1.73sq m eGFR calculated using average adult body mass. Additional eGFR calculator available at: http://www.3rd Planet.BlueSnap/multiple_crcl_2012.htm Performed By: #### C SARWAT, BMP #### [facility] [employer] [address] [place] [address] [phone] Clerk To Justice: Reed Mckeon MD Anion gap molar conc 16 mmol/L Normal 9-17 [facility] Comment on above: Performed By: #### C SARWAT, BMP #### [facility] [address] [place], [place] [phone] Clerk To Justice: Reed Mckeon MD Calcium mass conc 8.9 mg/dL Normal 8.6-10.4 [facility] Comment on above: Performed By: #### C BC, BMP #### [facility] [address] [place] [address] [phone] Clerk To Justice: Reed Mckeon MD Chloride molar conc 108 mmol/L High 98-107 [facility] Comment on above: Performed By: #### C BC, BMP #### [address] [address] Clerk To Justice: Reed Mckeon MD CO2 molar conc 19 mmol/L Low 20-31 [facility] Comment on above: Performed By: #### C BC, BMP #### [facility] [address] [place] [address] Clerk To Justice: Reed Mckeon MD Creatinine mass conc 0.62 mg/dL Normal 0.50-0.90 [facility] Comment on above: Performed By: #### C BC, BMP #### [address] [address] Clerk To Justice: Reed Mckeon MD GFR, Amer >60 Normal >60 [facility] Comment on above: Performed By: #### C BC, BMP #### [address] [address] Clerk To Justice: Reed Mckeon MD GFR,non Amer >60 Normal >60 [facility] Comment on above: Performed By: #### C BC, BMP #### [address] [address] Clerk To Justice: Reed Mckeon MD Glucose mass conc 124 mg/dL High 70-99 [facility] Comment on above: Performed By: #### C BC, BMP #### [address] [address] Clerk To Justice: Reed Mckeon MD Potassium molar conc 4.2 mmol/L Normal 3.7-5.3 [facility] Comment on above: Performed By: #### C BC, BMP #### [facility] [address] [place] [address] Clerk To Justice: Reed Mckeon MD Sodium molar conc 143 mmol/L Normal 135-144 [facility] Comment on above: Performed By: #### C BC, BMP #### [facility] [employer] [address] [place] [address] Clerk To Justice: Reed Mckeon MD Urea nitrogen mass conc 8 mg/dL Normal 6-20 [facility] Comment on above: Performed By: #### C BC, BMP #### [facility] [employer] [address] [place] [address] Clerk To Justice: Reed Mckeon MD BUN/CRE Ratio NOT REPORTED Normal - [facility] Comment on above: Performed By: #### C BC, BMP #### [address] [address] Clerk To Justice: Reed Mckeon MD Staging: NOT REPORTED Normal [facility] Comment on above: Performed By: #### C BC, BMP #### [address] [address] Clerk To Justice: Reed Mckeon MD CBCon 04-12-2018 Erythrocyte distribution width Ratio (RBC) 12.6 % Normal 11.8-14.4 [facility] Comment on above: Performed By: #### C BC, BMP #### [address] [address] Clerk To Justice: Reed Mckeon MD Hematocrit Volume Fraction (Bld) 44.2 % Normal 36.3-47.1 [facility] Comment on above: Performed By: #### C BC, BMP #### [address] [address] Clerk To Justice: Reed Mckeon MD Hemoglobin mass conc (Bld) 13.8 g/dL Normal 11.9-15.1 [facility] Comment on above: Performed By: #### C BC, BMP #### [address] [address] Clerk To Justice: Reed Mckeon MD MCH Entitic mass (RBC) 28.4 pg Normal 25.2-33.5 [facility] Comment on above: Performed By: #### C BC, BMP #### [address] [address] Clerk To Justice: Reed Mckeon MD MCHC mass conc (RBC) 31.2 g/dL Normal 28.4-34.8 [facility] Comment on above: Performed By: #### C BC, BMP #### [address] [address] Clerk To Justice: Reed Mckeon MD MCV Entitic volume (RBC) 90.9 fL Normal 82.6-102.9 [facility] Comment on above: Performed By: #### C BC, BMP #### [facility] [address] [place] [address] Clerk To Justice: Reed Mckeon MD NRBC Automated 0.0 per 100 WBC Normal 0.0 [facility] Comment on above: Performed By: #### C BC, BMP #### [facility] [employer] [address] [place] [address] Clerk To Justice: Reed Mckeon MD Platelet mean volume Entitic volume (Bld) 10.2 fL Normal 8.1-13.5 [facility] Comment on above: Performed By: #### C BC, BMP #### [facility] [address] [place] [address] Clerk To Justice: Reed Mckeon MD Platelets #/vol (Bld) 299 10*3/uL Normal 138-453 [facility] Comment on above: Performed By: #### C BC, BMP #### [facility] [employer] [address] [place] [address] Clerk To Justice: Reed Mckeon MD RBC #/vol (Bld) 4.86 10*6/uL Normal 3.95-5.11 [facility] Comment on above: Performed By: #### C BC, BMP #### [facility] [address] [place] [address] Clerk To Justice: Reed Mckeon MD WBC #/vol (Bld) 18.0 10*3/uL High 3.5-11.3 [facility] Comment on above: Performed By: #### C BC, BMP #### [facility] [address] [place] [address] Clerk To Justice: Reed Mckeon MD Surgical Pathologyon 019 Surgical Pathology (NOTE) [id number] [facility] CONSULTING PATHOLOGISTS [facility] ANATOMIC PATHOLOGY [address] [place] [phone] SURGICAL PATHOLOGY CONSULTATION Patient Name: ANTOINETTE RECIO [facility] Rec: [id number] Path Number: [id number] Collected: 04/12/2018 Received: 04/12/2018 Reported: 04/13/2018 13:37 [...] with no areas of granularity or masses. Automated Cutting Machine Operator sections 1cs. tm Microscopic Description The gastric mucosa shows intact architecture and no active or chronic inflammation. There is no histological evidence for Helicobacter. There is no intestinal metaplasia or dysplasia. The submucosa and muscularis propria show no histologic abnormality. Normal [facility] Comment on above: Performed By: #### P PPVS #### [facility] [address] [place] [address] [phone] Nicotineon 04-08-2018 1-ZA-[id number] <2 Normal [facility] Comment on above: Performed By: #### C BC, PT, PTT, BMP #### [facility] [place] [address] Clerk To Justice: Reed Mckeon MD #### ANICOT #### [facility] [address] [place] [phone] Clerk To Justice: Eduin Alvarez MD Cotinine <2 Normal [facility] Comment on above: Performed By: #### C BC, PT, PTT, BMP #### [facility] [address] [place] [address] [phone] Clerk To Justice: Reed Mckeon MD #### ANICOT #### [employer] [address] [address] Clerk To Justice: Eduin Alvarez MD Nicotine <2 Normal [facility] Comment on above: Result Comment: [...] positive. Test developed and characteristics determined by [facility]. See Compliance Statement B: [employer] [employer] Performed by [facility], [address] [place] [id number] www.[employer], Eduin Alvarez MD, Lab. Director Performed By: #### C BC, PT, PTT, BMP #### [address] [address] Clerk To Justice: Reed Mckeon MD #### ANICOT #### [facility] [address] [place] [address] Clerk To Justice: Eduin Alvarez MD APTTon 04-02-2018 aPTT Coag time (Bld) 24.7 s Normal 20.5-30.5 [facility] Comment on above: Performed By: #### C BC, PT, PTT, BMP #### [address] [address] Clerk To Justice: Reed Mckeon MD #### ANICOT #### [facility] [address] [place] [address] Clerk To Justice: Eduin Alvarez MD Basic Metabolic Profon 04-02 (cont.) Normal [facility] Comment on above: Result Comment: Aver age GFR for 20-29 years old: 116 mL/min/1.73sq m Chronic Kidney Disease: <60 mL/min/1.73sq m Kidney failure: <15 mL/min/1.73sq m eGFR calculated using average adult body mass. Additional eGFR calculator available at: http://www.[employer]/multiple_crcl_2012.htm Performed By: #### C BC, PT, PTT, BMP #### [address] [address] Clerk To Justice: Reed Mckeon MD #### ANICOT #### [facility] [address] [place] [address] Clerk To Justice: Eduin Alvarez MD Anion gap molar conc 15 mmol/L Normal 9-17 [facility] Comment on above: Performed By: #### C BC, PT, PTT, BMP #### [facility] [employer] [address] [place] [address] Clerk To Justice: Reed Mckeon MD #### ANICOT #### [facility] [address] [place], [place] [phone] Clerk To Justice: Eduin Alvarez MD Calcium mass conc 9.6 mg/dL Normal 8.6-10.4 [facility] Comment on above: Performed By: #### C BC, PT, PTT, BMP #### [address] [address] Clerk To Justice: Reed Mckeon MD #### ANICOT #### [facility] [address] [place], [place] [phone] Clerk To Justice: Eduin Alvarez MD Chloride molar conc 102 mmol/L Normal 98-107 [facility] Comment on above: Performed By: #### C BC, PT, PTT, BMP #### [address] [address] Clerk To Justice: Reed Mckeon MD #### ANICOT #### [facility] [address] [place], [place] [phone] Clerk To Justice: Eduin Alvarez MD CO2 molar conc 23 mmol/L Normal 20-31 [facility] Comment on above: Performed By: #### C BC, PT, PTT, BMP #### [address] [address] Clerk To Justice: Reed Mckeon MD #### ANICOT #### [facility] [address] [place], [place] [phone] Clerk To Justice: Eduin Alvarez MD Creatinine mass conc 0.62 mg/dL Normal 0.50-0.90 [facility] Comment on above: Performed By: #### C BC, PT, PTT, BMP #### [address] [address] Clerk To Justice: Reed Mckeon MD #### ANICOT #### [facility] [address] [place] [address] Clerk To Justice: Eduin Alvarez MD GFR, Amer >60 Normal >60 [facility] Comment on above: Performed By: #### C BC, PT, PTT, BMP #### [address] [address] Clerk To Justice: Reed Mckeon MD #### ANICOT #### [facility] [address] [place] [address] Clerk To Justice: Eduin Alvarez MD GFR,non Amer >60 Normal >60 [facility] Comment on above: Performed By: #### C BC, PT, PTT, BMP #### [address] [address] Clerk To Justice: Reed Mckeon MD #### ANICOT #### [address] [phone] Clerk To Justice: Eduin Alvarez MD Glucose mass conc 86 mg/dL Normal 70-99 [facility] Comment on above: Performed By: #### C BC, PT, PTT, BMP #### [address] [address] Clerk To Justice: Reed Mckeon MD #### ANICOT #### [facility] [address] [place] [address] Clerk To Justice: Eduin Alvarez MD Potassium molar conc 4.2 mmol/L Normal 3.7-5.3 [facility] Comment on above: Performed By: #### C BC, PT, PTT, BMP #### [address] [address] Clerk To Justice: Reed Mckeon MD #### ANICOT #### [facility] [address] [place] [address] Clerk To Justice: Eduin Alvarez MD Sodium molar conc 140 mmol/L Normal 135-144 [facility] Comment on above: Performed By: #### C BC, PT, PTT, BMP #### [address] [address] Clerk To Justice: Reed Mckeon MD #### ANICOT #### [facility] [address] [place], [place] [phone] Clerk To Justice: Eduin Alvarez MD Urea nitrogen mass conc 15 mg/dL Normal 6-20 [facility] Comment on above: Performed By: #### C BC, PT, PTT, BMP #### [address] [phone] Clerk To Justice: Reed Mckeon MD #### ANICOT #### [facility] [address] [place] [phone] Clerk To Justice: Eduin Alvarez MD BUN/CRE Ratio NOT REPORTED Normal 9-20 [facility] Comment on above: Performed By: #### C BC, PT, PTT, BMP #### [address] [phone] Clerk To Justice: Reed Mckeon MD #### ANICOT #### [facility] [address] [place], [place] [phone] Clerk To Justice: Eduin Alvarez MD Staging: NOT REPORTED Normal [facility] Comment on above: Performed By: #### C BC, PT, PTT, BMP #### [address] [address] Clerk To Justice: Reed Mckeon MD #### ANICOT #### [facility] [address] [place], [place] [phone] Clerk To Justice: Eduin Alvarez MD CBCon 04-02-2018 Erythrocyte distribution width Ratio (RBC) 12.0 % Normal 11.8-14.4 [facility] Comment on above: Performed By: #### C BC, PT, PTT, BMP #### [address] [phone] Clerk To Justice: Reed Mckeon MD #### ANICOT #### [facility] [address] [place] [address] Clerk To Justice: Eduin Alvarez MD Hematocrit Volume Fraction (Bld) 41.3 % Normal 36.3-47.1 [facility] Comment on above: Performed By: #### C BC, PT, PTT, BMP #### [address] [phone] Clerk To Justice: Reed Mckeon MD #### ANICOT #### [address] [phone] Clerk To Justice: Eduin Alvarez MD Hemoglobin mass conc (Bld) 13.7 g/dL Normal 11.9-15.1 [facility] Comment on above: Performed By: #### C BC, PT, PTT, BMP #### [address] [phone] Clerk To Justice: Reed Mckeon MD #### ANICOT #### [facility] [address] [place] [address] [phone] Clerk To Justice: Eduin Alvarez MD MCH Entitic mass (RBC) 28.4 pg Normal 25.2-33.5 [facility] Comment on above: Performed By: #### C BC, PT, PTT, BMP #### [address] [phone] Clerk To Justice: Reed Mckeon MD #### ANICOT #### [facility] [address] [place] [address] Clerk To Justice: Eduin Alvarez MD MCHC mass conc (RBC) 33.2 g/dL Normal 28.4-34.8 [facility] Comment on above: Performed By: #### C BC, PT, PTT, BMP #### [address] [phone] Clerk To Justice: Reed Mckeon MD #### ANICOT #### [facility] [address] [place], [place] [id number] Clerk To Justice: Eduin Alvarez MD MCV Entitic volume (RBC) 85.7 fL Normal 82.6-102.9 [facility] Comment on above: Performed By: #### C BC, PT, PTT, BMP #### [address] [phone] Clerk To Justice: Reed Mckeon MD #### ANICOT #### [facility] [address] [place], [place] [phone] Clerk To Justice: Eduin Alvarez MD NRBC Automated 0.0 per 100 WBC Normal 0.0 [facility] Comment on above: Performed By: #### C BC, PT, PTT, BMP #### [address] [phone] Clerk To Justice: Reed Mckeon MD #### ANICOT #### [facility] [address] [place], [place] [phone] Clerk To Justice: Eduin Alvarez MD Platelet mean volume Entitic volume (Bld) 9.4 fL Normal 8.1-13.5 [facility] Comment on above: Performed By: #### C BC, PT, PTT, BMP #### [address] [phone] Clerk To Justice: Reed Mckeon MD #### ANICOT #### [facility] [address] [place] [address] Clerk To Justice: Eduin Alvarez MD Platelets #/vol (Bld) 392 10*3/uL Normal 138-453 [facility] Comment on above: Performed By: #### C BC, PT, PTT, BMP #### [facility] [address] [place] [address] Clerk To Justice: Reed Mckeon MD #### ANICOT #### [facility] [address] [place] [address] Clerk To Justice: Eduin Alvarez MD RBC #/vol (Bld) 4.82 10*6/uL Normal 3.95-5.11 [facility] Comment on above: Performed By: #### C BC, PT, PTT, BMP #### [facility] [address] [place] [address] Clerk To Justice: Reed Mckeon MD #### ANICOT #### [facility] [address] [place], [place] [phone] Clerk To Justice: Eduin Alvarez MD WBC #/vol (Bld) 10.4 10*3/uL Normal 3.5-11.3 [facility] Comment on above: Performed By: #### C BC, PT, PTT, BMP #### [facility] [address] [place] [address] Clerk To Justice: Reed Mckeon MD #### ANICOT #### [facility] [address] [place] [address] Clerk To Justice: Eduin Alvarez MD PTon 04-02-2018 INR Coag RelTime (PPP) 1.0 {INR} Normal [facility] Comment on above: Result Comment: Therapeutic Range: Moderate Anticoagulant Intensity: INR = 2.0-3.0 High Anticoagulant Intensity: INR = 2.5-3.5 Performed By: #### C BC, PT, PTT, BMP #### [facility] [employer] [address] [place] [address] Clerk To Justice: Reed Mckeon MD #### ANICOT #### [facility] [address] [place] [address] Clerk To Justice: Eduin Alvarez MD Prothrombin time (PT) Coag time (PPP) 10.3 s Normal 9.0-12.0 [facility] Comment on above: Performed By: #### C BC, PT, PTT, BMP #### [facility] [address] [place] [address] Clerk To Justice: Reed Mckeon MD #### ANICOT #### [facility] [address] [place] [address] Clerk To Justice: Eduin Alvarez MD XR CHEST (2 VW)on [...] DO 04/02/18 Final result Normal [facility] H. pylori Detectionon 2017 H. 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 Direct Exam NEGATIVE Report Status FINAL 12/05/2017 Normal [facility] Comment on above: Performed By: #### H GENET #### [facility] [address] [place] [address] Surgical Pathologyon 018 Surgical Pathology (NOTE) [id number] [facility] CONSULTING PATHOLOGISTS [facility] ANATOMIC PATHOLOGY [address] [place] [phone] SURGICAL PATHOLOGY CONSULTATION Patient Name: ANTOINETTE RECIO [facility] Rec: [id number] Path Number: [id number] Collected: 12/04/2017 Received: 12/04/2017 Reported: 12/07/2017 12:25 [...] Description Microscopic examination performed. Normal [facility] Comment on above: Performed By: #### P PPVS #### [facility] [address] [place], [place] [phone] Vital Signs Date Time Vital Sign Value Performing Clinician Tahira luz 05-05-2023 15:13-0400 Body mass index (BMI) [Ratio] 29.32 kg/m2 Nieves Velasquez MD Work Phone: [facility] 05-05-2023 15:13-0400 Body weight 79.92 kg Nieves Velasquez MD Work Phone: [facility] 05-05-2023 15:13-0400 Diastolic blood pressure 84 mm[Hg] Nieves Velasquez MD Work Phone: [facility] 05-05-2023 15:13-0400 Systolic blood pressure 126 mm[Hg] Nieves Velasquez MD Work Phone: [facility] 11-30-2022 07:30-0400 Body temperature 97.9 [degF] PHYSICIAN NO [facility] 11-30-2022 07:30-0400 Diastolic blood pressure 104 mm[Hg] PHYSICIAN NO [facility] 11-30-2022 07:30-0400 Heart rate 68 /min PHYSICIAN NO [facility] 11-30-2022 07:30-0400 Respiratory rate 18 /min PHYSICIAN NO [facility] 11-30-2022 07:30-0400 SaO2% (BldA) [Mass fraction] 99 % PHYSICIAN NO [facility] 11-30-2022 07:30-0400 Systolic blood pressure 155 mm[Hg] PHYSICIAN NO [facility] 11-28-2022 14:23-0400 Body height 165.1 cm PHYSICIAN NO [facility] 11-27-2022 16:19-0400 Body weight 85.72 kg PHYSICIAN NO [facility] 11-27-2022 14:57-0400 Diastolic blood pressure 90 mm[Hg] PHYSICIAN NO [facility] 11-27-2022 14:57-0400 Heart rate 86 /min PHYSICIAN NO [facility] 11-27-2022 14:57-0400 Respiratory rate 18 /min PHYSICIAN NO [facility] 11-27-2022 14:57-0400 SaO2% (BldA) [Mass fraction] 98 % PHYSICIAN NO [facility] 11-27-2022 14:57-0400 Systolic blood pressure 142 mm[Hg] PHYSICIAN NO [facility] 11-27-2022 09:40-0400 Body height 165.1 cm PHYSICIAN NO [facility] 11-27-2022 09:40-0400 Body temperature 98.5 [degF] PHYSICIAN NO [facility] 11-27-2022 09:40-0400 Body weight 86.5 kg PHYSICIAN NO [facility] 05-13-2022 12:00-0400 Body temperature 98 [degF] PHYSICIAN NO [facility] 05-13-2022 12:00-0400 Diastolic blood pressure 79 mm[Hg] PHYSICIAN NO [facility] 05-13-2022 12:00-0400 Heart rate 102 /min PHYSICIAN NO [facility] 05-13-2022 12:00-0400 Respiratory rate 18 /min PHYSICIAN NO [facility] 05-13-2022 12:00-0400 SaO2% (BldA) [Mass fraction] 94 % PHYSICIAN NO [facility] 05-13-2022 12:00-0400 Systolic blood pressure 113 mm[Hg] PHYSICIAN NO [facility] 05-12-2022 09:00-0400 Body weight 79.83 kg PHYSICIAN NO [facility] 05-09-2022 14:19-0400 Body height 165.1 cm PHYSICIAN NO [facility] 05-09-2022 04:22-0400 Diastolic blood pressure 79 mm[Hg] PHYSICIAN NO [facility] 05-09-2022 04:22-0400 Systolic blood pressure 118 mm[Hg] PHYSICIAN NO [facility] 05-09-2022 01:14-0400 Heart rate 103 /min PHYSICIAN NO [facility] 05-09-2022 01:14-0400 Respiratory rate 18 /min PHYSICIAN NO [facility] 05-09-2022 01:14-0400 SaO2% (BldA) [Mass fraction] 97 % PHYSICIAN NO [facility] 05-08-2022 23:48-0400 Body height 165.1 cm PHYSICIAN NO [facility] 05-08-2022 23:48-0400 Body temperature 97.5 [degF] PHYSICIAN NO [facility] 05-08-2022 23:48-0400 Body weight 77.11 kg PHYSICIAN NO [facility] Encounters Encounter Date Encounter Type Care Provider Facility Start: 11-04-2023 End: 11-04-2023 ambulatory MANPREET PLUNKETT Not Available Start: 09-15-2023 End: 09-15-2023 ambulatory [facility] Start: 08-12-2023 End: 08-12-2023 ambulatory [facility] Start: 06-16-2023 End: 06-16-2023 Emergency department patient visit NO PCP NO PCP [facility] Start: 06-03-2023 End: 06-03-2023 ambulatory NO PCP NO PCP [facility] Start: 05-05-2023 End: 05-05-2023 ambulatory [facility] Start: 05-05-2023 Encounter for gynecological examination (general) (routine) without abnormal findings [facility] Start: 05-05-2023 End: 05-05-2023 Office outpatient visit 25 minutes Nieves Velasquez MD [facility] Comment on above: GA: 8w4d Start: 05-05-2023 End: 05-05-2023 Patient encounter status Nieves Velasquez MD Work Phone: [facility] Start: 05-05-2023 End: 05-05-2023 [facility] Start: 05-05-2023 Encounter for gynecological examination (general) (routine) without abnormal findings [facility] Start: 04-16-2023 End: 04-16-2023 ambulatory [facility] Start: 04-14-2023 End: 04-14-2023 Initial care visit Lynn Deleon 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 Work Phone: [facility] Comment on above: First trimester preg bal (Primary Dx); HTN in , chronic; History of gestational diabetes in prior , currently ; Nausea/vomiting in Start: 04-14-2023 End: 04-14-2023 ambulatory [facility] Start: 03-30-2023 End: 03-31-2023 [facility] Start: 11-27-2022 End: 11-30-2022 Evaluation and management of inpatient PHYSICIAN NO FAMILY Facility:[facility] Start: 11-27-2022 End: 11-30-2022 Evaluation and management of inpatient PHYSICIAN NO FAMILY [facility] Work Phone: Start: 11-27-2022 ambulatory PHYSICIAN NO FAMILY Fac ility:[facility] Start: 05-09-2022 End: 05-13-2022 Evaluation and management of inpatient PHYSICIAN NO FAMILY Facility:[facility] Start: 05-09-2022 End: 05-13-2022 Evaluation and management of inpatient PHYSICIAN NO FAMILY [facility] Work Phone: Start: 12-19-2021 End: 12-20-2021 ambulatory [facility] Start: 03-17-2021 End: 03-18-2021 ambulatory NONE LISTED REQUEST Facility: Start: 06-11-2020 End: 06-14-2020 ambulatory REFERRED SELF Facility:[facility] Start: 06-10-2020 End: 06-10-[address] PRO [place] Facility: Start: 04-15-2018 End: 04-16-2018 Patient encounter procedure VIPUL TRIPATHI [facility] Start: 04-12-2018 End: 04-14-2018 Evaluation and management of inpatient [place] Start: 04-02-2018 Encounter for preprocedural respiratory examination [facility] Start: 04-02-2018 Encounter for other preprocedural examination [facility] Start: 04-02-2018 End: 04-07-2018 Patient encounter procedure [facility] Start: 12-04-2017 End: 12-04-2017 Patient encounter procedure [facility] Encounter for other preprocedural examination [facility] Procedures Date Procedure Procedure Detail Performing [...] Td Vaccines (3 - Td or Tdap) [facility] Start: 05-04-2024 Adult BMI Screening Adult BMI Screen ing [facility] Start: 05-04-2024 Depression Screening Depression Scre ening [facility] Start: 05-04-2024 Tobacco Screening Tobacco Screening [facility] Start: 04-13-2024 Tobacco Screening Tobacco Screening [facility] Start: 03-30-2024 Adult BMI Screening Adult BMI Screen ing [facility] Start: 06-03-2023 End: 06-03-2023 Patient encounter procedure 06/03/2023 3:15 PM EDT Routine [facility] [address] [place] [phone] [facility] Start: 05-05-2023 End: 05-05-2023 ambulatory 05/05/2023 3:00 PM EDT Initial [facility] [address] [place] [phone] Nieves Velasquez MD [address] [place] [address] [facility] Start: 04-16-2023 Subsequent hospital visit by physician 04/16/2023 1:30 PM EST Hospital Encounter [facility] - Ultrasound [address] [place] [phone] Lynn Deleon, AMMONIA 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 [address] [place], [place] [id number] [facility] Start: 04-14-2023 End: 04-13-2024 US transvaginal for Ultrasound less than 14 weeks with transvaginal Imaging Routine First trimester Expected: 04/14/2023, Expires: 04/13/2024 [facility] Work Phone: Comment on above: Expected: 04/14/2023 , Expires: 04/13/2024 Start: 11-30-2022 [facility] Start: 11-28-2022 Lipid panel [facility] Start: 11-28-2022 [facility] Start: 11-27-2022 Referral to [employer] [facility] Start: 11-27-2022 Hospital admission [facility] Start: 11-27-2022 [facility] Start: 11-27-2022 Bacteria identified in Urine by Culture [facility] Start: 10-10-2022 Influenza vaccination Influenza Vacc ine [facility] Start: 05-13-2022 [facility] Start: 05-09-2022 Hospital admission [facility] Start: 04-20-2016 Screening for malign ant neoplasm of cervix Pap Smear [facility] Start: 04-20-2013 Adult BMI Follow Up Plan Adult BMI Follow Up Plan [facility] Start: 2007 Depression Screening Depression Scre ening [facility] End: 04-13-2024 Bacteria identified in Urine by Culture Urine Culture Microbiology Routine First trimester 1 Occurrences starting 04/14/2023 until 04/13/2024 [facility] Comment on above: 1 Occurrences starti ng 04/14/2023 until 04/13/2024 End: 04-13-2024 CBC panel - Blood by Automated count CBC without diff Lab Routine First trimester 1 Occurrences starting 04/14/2023 until 04/13/2024 [facility] Comment on above: 1 Occurrences starti ng 04/14/2023 until 04/13/2024 End: 05-04-2024 Chlamydia/GC by PCR ThinPrep fluid Chlamydia/GC by PCR ThinPrep fluid Microbiology Routine Screening for STD (sexually transmitted disease) 1 Occurrences starting 05/05/2023 until 05/04/2024 [facility] Comment on above: 1 Occurrences starti ng 05/05/2023 until 05/04/2024 End: 04-13-2024 Comprehensive metabolic 2000 panel - Serum or Plasma Comprehensive metabolic panel Lab Routine First trimester HTN in , chronic 1 Occurrences starting 04/14/2023 until 04/13/2024 [facility] Comment on above: 1 Occurrences starti ng 04/14/2023 until 04/13/2024 End: 04-13-2024 Creatinine clearance Creatinine clearance Lab Routine First trimester HTN in , chronic 1 Occurrences starting 04/14/2023 until 04/13/2024 [facility] Comment on above: 1 Occurrences starti ng 04/14/2023 until 04/13/2024 End: 05-04-2024 Cytopathology procedure, preparation of smear, genital source Pap Smear Pathology and Cytology Routine Smear, vaginal, as part of routine gynecological examination 1 Occurrences starting 05/05/2023 until 05/04/2024 [employer] Work Phone: Comment on above: 1 Occurrences starti ng 05/05/2023 until 05/04/2024 End: 04-13-2024 Drug Screen, Urine Drug Screen, Urine Lab Routine First trimester 1 Occurrences starting 04/14/2023 until 04/13/2024 [facility] Comment on above: 1 Occurrences starti ng 04/14/2023 until 04/13/2024 End: 04-13-2024 Glucose 1h post 50g load Glucose 1h post 50g load Lab Routine First trimester History of gestational diabetes in prior , currently 1 Occurrences starting 04/14/2023 until 04/13/2024 [facility] Comment on above: 1 Occurrences starti ng 04/14/2023 until 04/13/2024 End: 04-13-2024 Hepatitis panel, acute Hepatitis panel, acute Lab Routine First trimester 1 Occurrences starting 04/14/2023 until 04/13/2024 [facility] Comment on above: 1 Occurrences starti ng 04/14/2023 until 04/13/2024 End: 04-13-2024 HIV 1&2 AB/AG Screen (P24 AG) HIV 1&2 AB/AG Screen (P24 AG) Lab Routine First trimester 1 Occurrences starting 04/14/2023 until 04/13/2024 [facility] Comment on above: 1 Occurrences starti ng 04/14/2023 until 04/13/2024 End: 04-13-2024 LDH LDH Lab Routine First trimester HTN in , chronic 1 Occurrences starting 04/14/2023 until 04/13/2024 [facility] Comment on above: 1 Occurrences starti ng 04/14/2023 until 04/13/2024 Patient Education Depression, Ad ult (DC) [facility] DC Instructions [facility] Work Phone: Patient referral [facility] Work Phone: End: 04-13-2024 Rubella IGG immune status Rubella IGG immune status Lab Routine First trimester 1 Occurrences starting 04/14/2023 until 04/13/2024 [facility] Comment on above: 1 Occurrences starti ng 04/14/2023 until 04/13/2024 End: 04-13-2024 Syphilis Total(Unknown Syphilis Status) Syphilis Total(Unknown Syphilis Status) Lab Routine First trimester 1 Occurrences starting 04/14/2023 until 04/13/2024 [facility] Comment on above: 1 Occurrences starti ng 04/14/2023 until 04/13/2024 End: 04-13-2024 Type and screen Type and screen Blood Bank Routine First trimester 1 Occurrences starting 04/14/2023 until 04/13/2024 [facility] Comment on above: 1 Occurrences starti ng 04/14/2023 until 04/13/2024 End: 04-13-2024 Urate [Mass/volume] in Serum or Plasma Uric acid Lab Routine First trimester HTN in , chronic 1 Occurrences starting 04/14/2023 until 04/13/[facility] Comment on above: 1 Occurrences starti ng 04/14/2023 until 04/13/2024 End: 04-13-2024 Urinalysis Urinalysis Lab Routine First trimester 1 Occurrences starting 04/14/2023 until 04/13/2024 [facility] Comment on above: 1 Occurrences starti ng 04/14/2023 until 04/13/2024 End: 04-13-2024 Urine protein creatinine ratio Urine protein creatinine ratio Lab Routine First trimester HTN in , chronic 1 Occurrences starting 04/14/2023 until 04/13/2024 [facility] Comment on above: 1 Occurrences starti ng 04/14/2023 until 04/13/2024 End: 04-13-2024 Varicella zoster antibody, IgG Varicella zoster antibody, IgG Lab Routine First trimester 1 Occurrences starting 04/14/2023 until 04/13/2024 [facility] Comment on above: 1 Occurrences starti ng 04/14/2023 until 04/13/2024 Immunizations Immunization Date Immunization Notes Care Provider Gretel grissom 12-21-2020 tetanus toxoid, redu lucy diphtheria toxoid, and acellular pertussis vaccine, adsorbed PHYSICIAN NO [facility] 09-02-2019 tetanus toxoid, redu lucy diphtheria toxoid, and acellular pertussis vaccine, adsorbed PHYSICIAN NO [facility] Payers Date Payer Category Payer Self-pay [id number] 2022 Medicaid [employer] [place] [id number] 2022-[facility] [phone] [place], [place] [id number] 2021 Medicaid [id number] 2018 Unknown [id number] 2017 Private Health Insurance [id number] 1995 Unknown [id number] 2.16.840.1.919831.3.579.2. 175 1995 Unknown [id number] 2.16.840.1.907982.3.579.2. 175 1995 Unknown [id number] 2.16.840.1.152420.3.579.2. 175 1995 Unknown [id number] 2.16.840.1.835655.3.579.2. 175 1995 Unknown [id number] 2.16.840.1.011580.3.579.2. 175 1995 Unknown [id number] 2.16.840.1.746507.3.579.2. 593 1995 Unknown [id number] 2.16.840.1.295860.3.579.2. 593 1995 Unknown [id number] 2.16.840.1.565904.3.579.2. 647 1995 Unknown [id number] 2.16.840.1.254090.3.579.2. 1286 1995 Unknown [id number] 2.16.840.1.834504.3.579.2. 1286 1995 Unknown [id number] 2.16.840.1.152613.3.579.2. 1286 1995 Unknown [id number] 2.16.840.1.416794.3.579.2. 1286 1995 Unknown [id number] 2.16.840.1.571492.3.579.2. 1286 1995 Unknown [id number] 2.16.840.1.307890.3.579.2. 1286 1995 Unknown [id number] 2.16.840.1.479273.3.579.2. 1286 1995 Unknown [id number] 2.16.840.1.729421.3.579.2. 1286 1995 Unknown [id number] 2.16.840.1.371840.3.579.2. 1286 1995 Unknown [id number] 2.16.840.1.195923.3.579.2. 1286 1995 Unknown [id number] 2.16.840.1.678892.3.579.2. 1286 1995 Unknown [id number] 2.16.840.1.966326.3.579.2. 1286 1995 Unknown [id number] 2.16.840.1.690413.3.579.2. 1259 1959 Self-pay [id number] 1959 Unknown [id number] Medicaid [place] Advantage [id number] 001 [id number] Unknown [id number] 2.16.840.1.971937.3.579.2. 531 Unknown [id number] 2.16.840.1.459936.3.579.2. 531 Unknown [id number] 2.16.840.1.711438.3.579.2. 531 Social History Date Type Detail Facility Start: 05-09-2022 End: 11-27-2022 Tobacco smoking status [facility] Never smoked tobacco (finding) [facility] Start: 1995 Sex Assigned At Female [facility] Start: 11-28-2022 End: 03-24-2023 Tobacco smoking status WAIS Smoker (finding) [facility] Start: 04-14-2023 Tobacco smoking stat us [facility] Ex-smoker [facility] End: 03-24-2023 History of tobacco use Cigarette Smoker [facility] Start: 03-22-2020 End: 04-14-2023 Cigarettes smoked current (pack per day) - Reported 0.3 [facility] Start: 04-14-2023 Tobacco use and exposure Smokeless tobacco non-user [facility] Start: 04-14-2023 End: 05-05-2023 Alcohol intake Current non-drinker of alcohol (finding) [facility] Start: 03-22-2020 End: 04-14-2023 Tobacco use panel [facility] Childcare Unknown [facility] Start: 04-14-2023 Alcohol Comment SOBER 3 MONTHS [facility] Start: 1995 Sex Assigned At Not on file P [facility] How hard is it for y ou to pay for the very basics like food, housing, medical care, and heating Somewhat hard [facility] Start: 03-20-2023 [facility] Goals Date Patient Goal Desired Activity /State Functional Status Date Assessment Result Facility 11-30-2022 Functional status Patient at Baseline [facility] Work Phone: 05-13-2022 Functional status Patient at Baseline [facility] Work Phone: Mental Status Date Assessment Result Facility 11-30-2022 Cognitive function Cognitive Sta tus Patient at Baseline [facility] Work Phone: 05-13-2022 Cognitive function Cognitive Sta tus Patient at Baseline [facility] Work Phone: Clinical Notes 06-14-2020 to 05-05-2023 Nieves Velasquez MD - 05/05/2023 3:00 PM MARISOL England - 04/14/2023 1:45 PM ESTNicezra Justice LPN - 04/14/2023 1:45 PM ESTAddendum Note - MARISLO Mabry - 04/14/2023 1:45 PM EST Note Date & Type Note Facility 05-05-2023 History of Presen t illness Narrative Gynecoid pelvis PH baseline labs within normal limits All questions answered No recent concerns documented in this encounter [employer] 04-14-2023 History of Presen t illness Narrative OB Intake Video Visit 27 y.o. at unknown gestation contacted through [facility] for OB intake video visit. verified and verbal consent obtained for video visit. Patient and provider both currently located in the [facility]. This was a planned . FOB [...] hx alcohol abuse. 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 Discussed testing. Pt declines all. The patient reports that there is not domestic violence in her life. Discussed exercise, diet and weight gain. Current BMI 28. Discussed smoking, alcohol use and drug use. Quit vaping / smoking 3 weeks ago, sober from alcohol 3 months. Discussed early danger signs and when/how to notify provider. Reviewed CNM / MARKETING PRODUCER care, collaboration & referral to WHEEL ALIGNER as needed. Reviewed course of care. Discussed CDC recommendation for exclusive for the first 6 months. Patient has not been covid vaccinated. Discussed recommendations in . Patient is taking an OTC vitamin. Will offer flu shot in the office. All questions answered. Educational materials provided through [facility]. Ultrasound and labs ordered. Appointment scheduled for initial OB visit with provider on 05/05/23. MARISOL Mabry 04/14/23 9779 [id number]. Chronic HTN with no meds or PCP-baseline labs ordered. HX GDMA1-EARLY 1 HR GTT. Last pap was 3 years negative. Pt declined genetic testing. Stopped tobacco use and vaping 3 weeks ago.marino from alcohol for 3 months. documented in this encounter [facility] 04-14-2023 Miscellaneous Notes Addended by: LYNN DELEON on: 04/14/2023 03:15 PM Modules accepted: Orders documented in this encounter [facility] 04-14-2023 Note Addended by: LYNN DELEON on: 04/14/2023 03:15 PM Modules accepted: Orders [facility] 11-30-2022 Discharge summary Note Date/Time November 30, 2022 10:14am [facility] [address] [place] [address] Discharge Summary Signed Patient: Antoinette Recio MR#: [id number] : 1995 Acct:[id number] Age/Sex: 27 / F Adm Date: 3 Loc: Room: [address] [place] [address]: Dar Nation MD Copies to: [...] Instructions: Important Contact Information You can call [facility] at [phone] any time day or night if you have emergent questions or question regarding discharge instructions. If at any time you are feeling an increase inyour psychiatric symptoms, call your physician or behavioral healthcare provider. If any time you have thoughts of harming yourself or others contact one of the following: Call (available 01/09) Crisis Text Line (available 01/09) text 4H[facility] to [phone] [facility] (available 8 a.m. Midnight) call [phone] ([phone]) Prescriptions: New venlafaxine 75 mg Capsule,Extended Release [...] signed by Dar Nation MD> 11/30/22 1016 [facility] Work Phone: 1(494) 502-902210-22-2023 Hospital Discharge instructions Additional Instructions Important Contact Information You can call [facility] at [phone] any time day or night if you have emergent questions or question regarding discharge instructions. If at any time you are feeling an increase in your psychiatric symptoms, call your physician or behavioral healthcare provider. If any time you have thoughts of harming yourself or others contact one of the following: Call (available 01/09) Crisis Text Line (available 01/09) text 4HOPE to [phone] [facility] (available 8 a.m. Midnight) call [phone] ([phone]) [facility] Work Phone: 1(850) 388-336310-21-2023 Progress [facility] November 29, 2022 11:21am Note Date/Time November 29, 2022 1 1:22am [facility] [address] [place] [address] Psychiatry Progress Note Signed Patient: Antoinette Recio MR#: [id number] : 1995 Acct:[id number] Age/Sex: 27 / F Adm Date: 3 Loc: Room: [address] [place] [address] Type : ADM IN Attending Dr: Dar [...] signed by Dar Nation MD> 11/29/22 1121 [facility] Work Phone: 1(841) 596-745710-20-2023 History and physical note Author Dar Nation [facility] November 28, 2022 11:45am Note Date/Time November 28, 2022 1 1:45am [facility] [address] [place] [address] Psychiatry H&P Signed Patient: Antoinette Recio MR#: [id number] : 1995 Acct:[id number] Age/Sex: 27 / F Adm Date: 3 Loc: Room: [address] [place] [address] Type: ADM IN Attending Dr: Dar Nation [...] homicidality, reported suicidality Insight: fair Judgment: fair [facility] Medical History Clavicle fracture Miscarriage [...] Turbid A Urine pH 5.0 Ur Specific [place] 1.023 Urine Protein Trace H Urine Glucose [...] signed by Dar Nation MD> 11/28/22 1143 [facility] Work Phone: 1(117) 874-725404-04-2023 Discharge summary Author Dar Nation [facility] May 13, 2022 12:29pm Note Date/Time May 13, 2022 12:2 9pm [facility] [address] [place] [address] Discharge Summary Signed Patient: Antoinette Recio MR#: [id number] : 1995 Acct:[id number] Age/Sex: 27 / F Adm Date: 3 Loc: Room: [address] [place] [address]: Tiana Smith MD Copies to: [...] past year Living: House with parents in [place] Employment: None Patient was treated with Effexor. [...] No activity restrictions. Instructions: Depression, Adult (DC), [facility] DC Instructions Prescriptions: New venlafaxine [...] 30 Days Qty: 30 0RF Follow Up: [facility] [Outside] (Please call to establish care with a primary provider for any medical needs. ) [facility] Counseling Hotline [Outside] [facility] [Outside] - 05/14/22 11:30 am (dining manager: Thursday05/14/22 @ 11:30am Intake: Thursday05/20/22 @ 12:30pm Please bring a copy of your photo ID, insurance card, and proof of household income. Nurse: 05/22/22 @ 2:00pm with Anabel. Please see attached instruction sheet Psychiatry: Thursday05/27/22 @ 9:30am with Dr. Goetz) Documented By: Dar Nation MD 05/13/221227 Signed By: <Electronically signed by Dar Nation MD> 05/13/22 1229 [facility] Work Phone: 1(899) 358-452304-03-2023 Progress note Author Dar Nation [facility] May 12, 2022 3:21pm Note Date/Time May 12, 2022 3:21 pm [facility] [address] [place] [address] Psychiatry Progress Note Signed Patient: Antoinette Recio MR#: [id number] : 1995 Acct:[id number] Age/Sex: 27 / F Adm Date: 3 Loc: Room: [address] [place] [address] Type : ADM IN Attending Dr: Tiana Smith MD Copies to: ~ Date of Service: 05/12/2022 Subjective Subjective Narrative: Patient continues to move in the right direction with her's current [facility] protocol and antidepressant medication regimen. She [...] signed by Dar Nation MD> 05/12/22 1528 [facility] Work Phone: 1(232) 174-396404-02-2023 Progress note Author Ji anderson [facility] May 11, 2022 8:50am Note Date/Time May 11, 2022 8:49 am [facility] [address] [place] [address] Psychiatry Progress Note Signed Patient: Antoinette Recio MR#: [id number] : 1995 Acct:[id number] Age/Sex: 27 / F Adm Date: 3 Loc: Room: [address] [place] [address] Type : ADM IN Attending Dr: Tiana [...] explained Documented By: Ji Smith MD 3 0780 Signed By: <Electronically signed by Ji Smith MD> 05/11/22 0850 [facility] Work Phone: 1(851) 913-673804-01-2023 Progress note Author Ji anderson [facility] May 10, 2022 5:02pm Note Date/Time May 10, 2022 10:2 5am [facility] [address] [place] [address] Psychiatry Progress Note Signed with Addenda Patient: Antoinette Recio MR#: [id number] : 1995 Acct:[id number] Age/Sex: 27 / F Adm Date: 3 Loc: Room: [address] [place] [address] Type : ADM IN Attending Dr: Tiana [...] signed by Ji Smith MD> 05/10/22 1025 [facility] Work Phone: 1(501) 296-814903-31-2023 History and physical note Author Ji anderson [facility] May 09, 2022 12:28pm Note Date/Time May 09, 2022 12: 28pm [facility] [address] [place] [address] Psychiatry H&P Signed Patient: Antoinette Recio MR#: [id number] : 1995 Acct:[id number] Age/Sex: 27 / F Adm Date: 3 Loc: Room: [address] [place] [address] Type: ADM IN Attending Dr: Tiana Smith [...] past year Living: House with parents in [place] Employment: None Review of symptoms: Constitutional: Denies [...] Appearance Clear Urine pH 5.5 Ur Specific [place] 1.013 Urine Protein 30 H Urine Glucose [...] 3 1146 Signed By: <Electronically signed by iJ Smith MD> 05/09/22 [facility]8 [facility] Work Phone: 1(781) 322-130205-07-2021 Note [id number]:[address] [place] [address] 06-14-2020 [id number]:[address] [place], [place] [address]Evaluation note* Diagnosis Onset Date Resolution Status Suicidal ideation acute [facility] Work Phone: Evaluation note* Diagnosis Onset Date Resolution Status Alcohol use disorder acute Major depressive disorder, recurrent, moderate acute Suicidal ideation acute [facility] Work Phone: Evaluation note* Diagnosis Onset Date Resolution Status Suicidal ideation acute Urinary tract infection acut e [facility] Work Phone: Evaluation note* Diagnosis Onset Date Resolution Status Alcohol use disorder acute Major depressive disorder, recurrent, moderate acute Suicidal ideation acute Urinary tract infection acut e [facility] Work Phone: Evaluation note* Diagnosis [...] (sexually transmitted disease) documented in this encounter [facility] and physical note Author Ji anderson [facility] May 09, 2022 12:28pm Note Date/Time May 09, 2022 12: 28pm [facility] [address] [place] [address] Psychiatry H&P Signed Patient: Antoinette Recio MR#: [id number] : 1995 Acct:[id number] Age/Sex: 27 / F Adm Date: 3 Loc: Room: [address] [place] [address] Type: ADM IN Attending Dr: Tiana Smith [...] past year Living: House with parents in [place] Employment: None Review of symptoms: Constitutional: Denies [...] Appearance Clear Urine pH 5.5 Ur Specific [place] 1.013 Urine Protein 30 H Urine Glucose [...] signed by Ji Smith MD> 05/09/22 1228 [facility] Work Phone: Hospital Discharge instructions Additional Instructions Regular diet. No activity restrictions.[facility] Work Phone: Instructions* Attachments The following attachments cannot be sent through Care Everywhere. * Activity during (Danish) * How to Adapt to Physical Changes During (Danish) * Nutrition before and during (Danish) * care (Danish) documented in this [facility] SystemInstructionsNot on file documented in this encounterProTuscarawas Hospital SystemProgress note Author Ji anderson [facility] May 10, 2022 5:02pm Note Date/Time May 10, 2022 10:2 5am [facility] [address] [place] [address] Psychiatry Progress Note Signed with Esmer Patient: Antoinette Recio MR#: [id number] : 1995 Acct:[id number] Age/Sex: 27 / F Adm Date: 3 Loc: Room: [address] [place] [address] Type : ADM IN Attending Dr: Tiana [...] signed by Ji Smith MD> 05/10/22 1025 [facility] Work Phone: Progress note Author Ji anderson [facility] May 11, 2022 8:50am Note Date/Time May 11, 2022 8:49 am [facility] [address] [place] [address] Psychiatry Progress Note Signed Patient: Antoinette Recio MR#: [id number] : 1995 Acct:[id number] Age/Sex: 27 / F Adm Date: 3 Loc: 1S Room: [address] [place] [address] Type : ADM IN Attending Dr: Tiana [...] signed by Ji Smith MD> 05/11/22 0850 [facility] Work Phone: Progress note Author Dar Nation [facility] May 12, 2022 3:21pm Note Date/Time May 12, 2022 3:21 pm [facility] [address] [place] [address] Psychiatry Progress Note Signed Patient: Antoinette Recio MR#: [id number] : 1995 Acct:[id number] Age/Sex: 27 / F Adm Date: 3 Loc: Room: [address] [place] [address] Type : ADM IN Attending Dr: Tiana [...] signed by Dar Nation MD> 05/12/22 1521 [facility] Work Phone: Summary Purpose Family History No [...] and content) DATE CREATED AUTHOR 2018 [facility] DATE CREATED AUTHOR AUTHOR'S ORGANIZ ATION 07/17/2020 [facility] DATE CREATED AUTHOR AUTHOR'S ORGANIZ ATION 03/19/2021 [facility] DATE CREATED AUTHOR AUTHOR'S ORGANIZ ATION 06/15/2021 [facility] DATE CREATED AUTHOR AUTHOR'S ORGANIZ ATION 12/21/2021 [facility] DATE CREATED AUTHOR AUTHOR'S ORGANIZ ATION 02/23/2023 [facility] [place] DATE CREATED AUTHOR AUTHOR'S ORGANIZ ATION 06/05/2023 [facility] DATE CREATED AUTHOR AUTHOR'S ORGANIZ ATION 08/13/2023 [facility] DATE CREATED AUTHOR AUTHOR'S ORGANIZ ATION 09/17/2023 [facility] DATE CREATED AUTHOR AUTHOR'S ORGANIZ ATION 11/06/2023 [facility] EPIC Care Teams (unrecognized [...] MD Admit Provider, Attending Pr ovider Active Pipe Cutter Relationship Specialty Start Date End Date No Pcp, [place] [address] PCP - General Family Medicine 03/30/23 Pipe Cutter Relationship Specialty Start Date End Date No Pcp, [place] [address] PCP - General Family Medicine 03/30/23 Goals [...] BE BASED ON THE PRIMARY CLINICAL RECORDS. [facility]. provides no warranty or guarantee of the accuracy or completeness of information in this document.
[2023-11-10] MEDS: METOCLOPRAMIDE HCL 10 MG/2 ML VIAL IVP (17:17)
[2023-11-10] MEDS: DIPHENHYDRAMINE HCL 50 MG/ML VIAL 25 MG IV (17:17)
[2023-11-10] MEDS: LABETALOL HCL 20 MG/4 ML SYRINGE 10 MG IVP (17:17)
[2023-11-10 17:20] LABS: Lactate/Lactic Acid 1.3 mmol/L (0.4-2.0)
[2023-11-10 17:26] LABS: Alanine Aminotransferase 19 U/L (14-59); Albumin Globulin Ratio 0.6; Albumin Level 2.9 g/dL (3.4-5.0); Alkaline Phosphatase 153 U/L (46-116); Aspartate Amino Transferase 25 U/L (15-37); BUN Creatinine Ratio 9.2; Bilirubin Total 0.5 mg/dL (0.2-1.0); Calcium 8.8 mg/dL (8.5-10.1); Carbon Dioxide 24.7 mmol/L (21.0-32.0); Chloride 97 mmol/L (98-107); Estimated GFR (African America >60 (>=60 mL/min/1.73m^2); Estimated GFR (Non-African Ame >60 (>=60 mL/min/1.73m^2); Globulin 4.5 g/dL; Glucose 92 mg/dL (74-106); Magnesium 1.7 mg/dL (1.8-2.4); Potassium 3.7 mmol/L (3.5-5.1); Sodium 133 mmol/L (136-145); Thyroid Stimulating Hormone 3.516 uIU/mL (0.358-3.740); Total Protein 7.4 g/dL (6.4-8.2)
[2023-11-10 17:42] LABS: INR 0.94
[2023-11-10 17:57] LABS: Bilirubin Urine NEGATIVE (NEGATIVE); Blood Urine NEGATIVE (NEGATIVE); Clarity Urine CLEAR (CLEAR); Color Urine YELLOW (YELLOW); Glucose Urine UA NEGATIVE (NEGATIVE); Ketones Urine NEGATIVE (NEGATIVE); Leukocyte Esterase Urine NEGATIVE (NEGATIVE); Nitrite Urine NEGATIVE (NEGATIVE); Protein Urine NEGATIVE (NEG/TRACE); Specific Gravity Urine >=1.030 (1.005-1.025); Urobilinogen Urine 0.2 EU/dL (0.2-1.0)
[2023-11-10 18:07] LABS: Urine Microscopic Indicated NO
--- OUTSIDE RECORDS SUMMARY | 2023-11-10 18:25 | XMS_ITS | CCD ---
Author Organization [facility] Care Team Providers Care Housekeeping Room Inspector Name Role Phone CHER MARAVILLA Admitting Unavailable CHER MARAVILLA Attending Unavailable CHER MARAVILLA Referring Unavailable FERNANDO KELLI Primary Care Unavailable CHER MARAVILLA Referring Unavailable FERNANDO [facility] Primary Care Unavailable CHER MARAVILLA Admitting Unavailable CHER MARAVILLA Attending Unavailable FERNANDO KELLI Primary Care Unavailable VIPUL TRIPATHI Referring Unavailable FERNANDO, [facility] Primary Care Unavailable RACHAEL MERAZ Consulting [...] Admit Provider MD Tiana Smith Attending Provider [phone] NO FAMILY, PHYSICIAN Primary Care Provider Unava MD Sara Delgado Emergency Provider MD Rios Dar Admit Provider [phone] MD Dar Nation Attending Provider NO FAMILY, [...] Azithromycin; Translations: [azithromycin] Drug Allergy 05-08-2022 Anaphylaxis [facility] Medications Current Medications Medication Drug [...] Every 2 hours November 30, 2022 12:00am [place] (No Known Home Meds) (1 source) Start: 11-27-2022 [place] (No Known Home Meds) Active November 27, [...] [facility]0-0.2 [facility] Comment on above: Performed By: #### 2 106-3 #### [facility] ([id number]) [address] [place] [address] 74135 ABSOLUTE NEUTROPHIL 11.8 X10E9/L High 1.5-6.[address] [facility] Comment on above: Performed By: #### 2 106-3 #### [facility] ([id number]) [address] [place] [address] 13304 Basophils/100 WBC (Bld) 0.4 % Normal [facility] Comment on above: Performed By: #### 2 106-3 #### [facility] ([id number]) [address] [place] [address] 32332 Eosinophils (Bld) [#/Vol] 0.1 10*3/uL Normal 0.0-0.4 [facility] Comment on above: Performed By: #### 2 106-3 #### [facility] ([id number]) [address] [place] [address] 70230 Eosinophils/100 WBC (Bld) 0.4 % Normal [facility] Comment on above: Performed By: #### 2 106-3 #### [facility] ([id number]) [address] [place] [address] 23551 Erythrocyte distribution width (RBC) [Ratio] 15.3 % High 11.5-15.0 [facility] Comment on above: Performed By: #### 2 106-3 #### [facility] ([id number]) [address] [place] [address] 66782 Hematocrit (Bld) [Volume fraction] 35.3 % Normal 35-47 [facility] Comment on above: Performed By: #### 2 106-3 #### [facility] ([id number]) [address] [place] [address] 00049 Hemoglobin (Bld) [Mass/Vol] 12.0 g/dL Normal 11.7-15.5 [facility] Comment on above: Performed By: #### 2 106-3 #### [facility] ([id number]) [address] [place] [address] 27226 Lymphocytes (Bld) [#/Vol] 1.4 10*3/uL Normal 1.0-3.5 [facility] Comment on above: Performed By: #### 2 106-3 #### [facility] ([id number]) [address] [place] [address] 11083 Lymphocytes/100 WBC (Bld) 10.3 % Normal [facility] Comment on above: Performed By: #### 2 106-3 #### [facility] ([id number]) [address] [place] [address] 74593 MCH (RBC) [Entitic mass] 28.1 pg Normal 27-34 [facility] Comment on above: Performed By: #### 2 106-3 #### [facility] ([id number]) [address] [place] [address] 99453 MCHC (RBC) [Mass/Vol] 33.9 g/dL Normal 32-36 [facility] Comment on above: Performed By: #### 2 106-3 #### [facility] ([id number]) [address] [place] [address] 32916 MCV (RBC) [Entitic vol] 83 fL Normal 80-100 [facility] Comment on above: Performed By: #### 2 106-3 #### [facility] ([id number]) [address] [place] [address] 27735 Monocytes (Bld) [#/Vol] 0.5 10*3/uL Normal 0-0.9 [facility] Comment on above: Performed By: #### 2 106-3 #### [facility] ([id number]) [address] [place] [address] 77084 Monocytes/100 WBC (Bld) 3.6 % Normal [facility] Comment on above: Performed By: #### 2 106-3 #### [facility] ([id number]) [address] [place] [address] 05476 Neutrophils/100 WBC (Bld) 85.3 % Normal [facility] Comment on above: Performed By: #### 2 106-3 #### [facility] ([id number]) [address] [place] [address] 88260 Platelet mean volume (Bld) [Entitic vol] 8.2 fL Normal 7-12 [facility] Comment on above: Performed By: #### 2 106-3 #### [facility] ([id number]) [address] [place] [address] 79820 Platelets (Bld) [#/Vol] 434 10*3/uL Normal 150-450 [facility] Comment on above: Performed By: #### 2 106-3 #### [facility] ([id number]) [address] [place] [address] 23156 RBC COUNT 4.27 X10E12/L Normal 3.80-5.20 [facility] Comment on above: Performed By: #### 2 106-3 #### [facility] ([id number]) [address] [place] [address] 65038 WBC (Bld) [#/Vol] 13.8 10*3/uL High 4.0-11.0 [facility] Comment on above: Performed By: #### 2 106-3 #### [facility] ([id number]) [address] [place] [address] 37646 COMPREHENSIVE METABOLIC PANE Shaji 06-16-2023 Albumin [Mass/Vol] 3.9 g/dL Normal 3.2-5.3 [facility] Comment on above: Performed By: #### 2 106-3 #### [facility] ([id number]) [address] [place] [address] 41845 ALP [Catalytic activity/Vol] 46 U/L Normal 39-130 [facility] Comment on above: Performed By: #### 2 106-3 #### [facility] ([id number]) [address] [place] [address] 21927 ALT [Catalytic activity/Vol] 12 U/L Normal 0-31 [facility] Comment on above: Performed By: #### 2 106-3 #### [facility] ([id number]) [address] [place] [address] 87415 Anion gap [Moles/Vol] 12 mmol/L Normal 5-15 [facility] Comment on above: Performed By: #### 2 106-3 #### [facility] ([id number]) [address] [place] [address] 22806 AST [Catalytic activity/Vol] 15 U/L Normal 0-41 [facility] Comment on above: Performed By: #### 2 106-3 #### [facility] ([id number]) [address] [place] [address] 27896 Bilirubin [Mass/Vol] 0.3 mg/dL Normal 0.3-1.2 [facility] Comment on above: Performed By: #### 2 106-3 #### [facility] ([id number]) [address] [place] [address] 28855 Calcium [Mass/Vol] 9.0 mg/dL Normal 8.5-10.5 [facility] Comment on above: Performed By: #### 2 106-3 #### [facility] ([id number]) [address] [place] [address] 08948 Chloride [Moles/Vol] 105 mmol/L Normal 98-109 [facility] Comment on above: Performed By: #### 2 106-3 #### [facility] ([id number]) [address] [place] [address] 66999 CO2 [Moles/Vol] 19 mmol/L Low 22-32 [facility] Comment on above: Performed By: #### 2 106-3 #### [facility] ([id number]) [address] [place] [address] 05595 Creatinine [Mass/Vol] 0.58 mg/dL Normal 0.40-1.00 [facility] Comment on above: Result Comment: METH OD TRACEABLE TO IDMS STANDARD Performed By: #### 2 106-3 #### [facility] ([id number]) [address] [place] [address] 72030 eGFR (CKD-EPI) NON-RACE DEPENDENT >90 Normal >59 [facility] Comment on above: Result Comment: Reported eGFR is based on the CKD-EPI 2020 equation that does not use a race coefficient. Performed By: #### 2 106-3 #### [facility] ([id number]) [address] [place] [address] 13757 Glucose [Mass/Vol] 87 mg/dL Normal 65-99 [facility] Comment on above: Performed By: #### 2 106-3 #### [facility] ([id number]) [address] [place] [address] 62927 Potassium [Moles/Vol] 3.6 mmol/L Normal 3.5-5.0 [facility] Comment on above: Performed By: #### 2 106-3 #### [facility] ([id number]) [address] [place] [address] 00960 Protein [Mass/Vol] 7.5 g/dL Normal 6.0-8.0 [facility] Comment on above: Performed By: #### 2 106-3 #### [facility] ([id number]) [address] [place] [address] 17015 Sodium [Moles/Vol] 136 mmol/L Normal 134-146 [facility] Comment on above: Performed By: #### 2 106-3 #### [facility] ([id number]) [address] [place] [address] 43463 Urea nitrogen [Mass/Vol] 7 mg/dL Normal 5-23 [facility] Comment on above: Performed By: #### 2 106-3 #### [facility] ([id number]) [address] [place] [address] 62125 MAGNESIUMon 06-16-2023 Magnesium [Mass/Vol] 1.7 mg/dL Low 1.8-2.6 [facility] Comment on above: Performed By: #### 2 106-3 #### [facility] ([id number]) [address] [facility] [place] [address] SARS/FLU A+B/RSV by NAAT/Mol ecchunon 06-16-2023 SARS/FLU [...] operators who are performing tests using either [employer] or [employer] systems and is limited to laboratories that [...] repeat. Fact Sheet for Healthcare Providers: https://www.fda.gov/me gerry/485305/download Fact Sheet for Patients: https://www.fda.gov/ia gerry/644951/download Normal [facility] Comment on above: Performed By: #### 2 106-3 #### [facility] ([id number]) [address] [place] [address] [place] [address] URINALYSISon 06-16-2023 Bilirubin Ql (U) Negative Normal NEG [facility] Comment on above: Performed By: #### 2 106-3 #### [facility] ([id number]) [address] [place] [address] [place] [address] BLOOD/HGB Negative Normal NEG [facility] Comment on above: Performed By: #### 2 106-3 #### [facility] ([id number]) [address] [place] [address] 16738 Color (U) YELLOW Normal YELLOW [facility] Comment on above: Performed By: #### 2 106-3 #### [facility] ([id number]) [address] [place] [address] [place] [address] Glucose Ql (U) Negative Normal NEG [facility] Comment on above: Performed By: #### 2 106-3 #### [facility] ([id number]) [address] [place] [address] [place] [address] Ketones Ql (U) Negative Normal NEG [facility] Comment on above: Performed By: #### 2 106-3 #### [facility] ([id number]) [address] [place] [address] [place] [address] Leukocyte esterase Test strip Ql (U) Negative Normal NEG [facility] Comment on above: Performed By: #### 2 106-3 #### [facility] ([id number]) [address] [place] [address] [place] [address] MUCOUS PRESENT Abnormal NONE [facility] Comment on above: Performed By: #### 2 106-3 #### [facility] ([id number]) [address] [place] [address] 18904 Nitrite Ql (U) Negative Normal NEG [facility] Comment on above: Performed By: #### 2 106-3 #### [facility] ([id number]) [address] [place] [address] 45170 pH (U) 6.5 [pH] Normal 5.0-8.5 [facility] Comment on above: Performed By: #### 2 106-3 #### [facility] ([id number]) [address] [place] [address] 28618 Protein Ql (U) Trace Abnormal NEG [facility] Comment on above: Performed By: #### 2 106-3 #### [facility] ([id number]) [address] [place] [address] 14678 R.B.CELLS 0 /hpf Normal 0-5 [facility] Comment on above: Performed By: #### 2 106-3 #### [facility] ([id number]) [address] [place] [address] 54681 Specific gravity (U) [Rel density] 1.025 Normal 1.003-1.035 [facility] Comment on above: Performed By: #### 2 106-3 #### [facility] ([id number]) [address] [place] [address] 64686 SQUAMOUS EPITHELIUM 2 /hpf Normal 0-5 [facility] Comment on above: Performed By: #### 2 106-3 #### [facility] ([id number]) [address] [place] [address] 76631 TURBIDITY CLEAR Normal CLEAR [facility] Comment on above: Performed By: #### 2 106-3 #### [facility] ([id number]) [address] [place] [address] 85383 Urobilinogen Qn (U) 1.0 {Jazmine'U}/dL Normal <1.1 [facility] Comment on above: Performed By: #### 2 106-3 #### [facility] ([id number]) [address] [place] [address] 63142 W.B.CELLS 0 /hpf Normal 0-5 [facility] Comment on above: Performed By: #### 2 106-3 #### [facility] ([id number]) [address] [place] [address] 13379 CHLAMYDIA/GC PCR, FLon 05-04 CHLAMYDIA/GC PCR, FL [...] are dependent on adequate specimen collection. Normal [facility] Comment on above: Performed By: #### 2 106-3 #### [facility] ([id number]) [address] [place] [address] 71682 Cytologyon 05-05-2023 Cytology Normal [facility] Comment on above: Result Comment: [facility] [address] [place] [address] Gynecologic Cytology Consultation Patient Name:ANTOINETTE RECIO:1995 (Age: 28)Gender:FTaken:4Reported:4Physician(s):Nieves Velasquez M.D. ([phone])Copy To: Rec. #:[id number]: #[id number] Final Cytologic Interpretation ThinPrep Pap Test (Cervical): Satisfactory for evaluation. A transformation zone component is present. NEGATIVE FOR INTRAEPITHELIAL LESION OR MALIGNANCY. Numerous neutrophilic leukocytes are present. j/05/21/2023 [facility] [address] [place] [address], License number: [id number]. Electronically Signed Out By FLAKO Houston(ASCP) Date of Last Menstrual Period: (None Given) Other Clinical Conditions: Z01.419 Resourcing Advisor exam wo/abn findings Z12.72 Screeing for malignant neoplasm of vagina Z11.3 Encntr screen for infections w sexl mode of transmiss Source of Specimen ThinPrep Pap Test (Cervical) Thin Prep Pap (TRANSMITTER CHIEF) Fee Code(s): G0145 ACUTE HEPATITIS PANELon ANTI HCV W/PCR REFLX Non-Reactive Normal NRCT Pr [facility] Comment on above: Result Comment: If recent infection suspected, recommend repeat testing (>2 months). Upwirg-wt-bjpfin ratio is <0.80. Performed By: #### N UM #### [facility] ([id number]) [address] [place] [address] 34681 HEPATITIS A IGM Non-Reactive Normal NRCT [facility] Comment on above: Performed By: #### N UM #### [facility] ([id number]) [address] [place] [address] 70849 HEPATITIS B CORE IGM Negative Normal NEG [facility] Comment on above: Performed By: #### N UM #### [facility] ([id number]) [address] [place] [address] 43035 HEPATITIS B SURF AG Negative Normal NEG [facility] Comment on above: Performed By: #### N UM #### [facility] ([id number]) [address] [place] [address] 12191 COMPLETE BLOOD COUNTon 04-15 Erythrocyte distribution width (RBC) [Ratio] 18.6 % High 11.5-15.0 [facility] Comment on above: Performed By: #### C BC, CMP, 2532-0, 3084-1, AHP, 63190-9, 72253-7, 36914-8, 37636-6 #### [facility] ([id number]) [address], [address] [place] [address] Hematocrit (Bld) [Volume fraction] 34.6 % Low 35-47 [facility] Comment on above: Performed By: #### C BC, CMP, 2532-0, 3084-1, AHP, 94445-7, 76078-6, 51692-5, 06963-5 #### [facility] ([id number]) [address], [address] [place] [address] Hemoglobin (Bld) [Mass/Vol] 11.4 g/dL Low 11.7-15.5 [facility] Comment on above: Performed By: #### C BC, CMP, 2532-0, 3084-1, AHP, 69864-2, 73738-2, 15031-8, 45822-0 #### [facility] ([id number]) [address], [address] [place] [address] MCH (RBC) [Entitic mass] 26.7 pg Low 27-34 [facility] Comment on above: Performed By: #### C BC, CMP, 2532-0, 3084-1, AHP, 80940-5, 04986-4, 48829-9, 81501-3 #### [facility] ([id number]) [address], [address] [place] [address] MCHC (RBC) [Mass/Vol] 32.8 g/dL Normal 32-36 [facility] Comment on above: Performed By: #### C BC, CMP, 2532-0, 3084-1, AHP, 87753-7, 91199-6, 15762-5, 99533-9 #### [facility] ([id number]) [address] [place] [address] MCV (RBC) [Entitic vol] 81 fL Normal 80-100 [facility] Comment on above: Performed By: #### C BC, CMP, 2532-0, 3084-1, AHP, 04486-7, 51906-6, 27436-9, 51519-5 #### [facility] ([id number]) [address], [address] [place] [address] Platelet mean volume (Bld) [Entitic vol] 8.5 fL Normal 7-12 [facility] Comment on above: Performed By: #### C BC, CMP, 2532-0, 3084-1, AHP, 53221-6, 64592-9, 87242-6, 65414-6 #### [facility] ([id number]) [address], [address] [place] [address] Platelets (Bld) [#/Vol] 351 10*3/uL Normal 150-450 [facility] Comment on above: Performed By: #### C BC, CMP, 2532-0, 3084-1, AHP, 23408-7, 27264-9, 34420-6, 32315-6 #### [facility] ([id number]) [address] [place] [address] RBC COUNT 4.26 X10E12/L Normal 3.80-5.20 [facility] Comment on above: Performed By: #### C BC, CMP, 2532-0, 3084-1, AHP, 97702-4, 53105-9, 61757-7, 49799-8 #### [facility] ([id number]) [address], [address] [place] [address] WBC (Bld) [#/Vol] 8.9 10*3/uL Normal 4.0-11.0 [facility] Comment on above: Performed By: #### C BC, CMP, 2532-0, 3084-1, AHP, 43147-7, 15292-9, 33769-6, 33675-9 #### [facility] ([id number]) [address], [address] [place] [address] COMPREHENSIVE METABOLIC PANE Shaji 04-16-2023 Albumin [Mass/Vol] 4.4 g/dL Normal 3.2-5.3 [facility] Comment on above: Performed By: #### C BC, CMP, 2532-0, 3084-1, AHP, 10960-2, 86340-7, 71752-5, 92971-6 #### [facility] ([id number]) [address] [place] [address] ALP [Catalytic activity/Vol] 42 U/L Normal 39-130 [facility] Comment on above: Performed By: #### C BC, CMP, 2532-0, 3084-1, AHP, 74343-7, 42619-0, 66319-0, 49445-5 #### [facility] ([id number]) [address] [place] [address] ALT [Catalytic activity/Vol] 12 U/L Normal 0-31 [facility] Comment on above: Performed By: #### C BC, CMP, 2532-0, 3084-1, AHP, 29000-5, 16197-5, 95136-4, 87557-5 #### [facility] ([id number]) [address], [address] [place] [address] Anion gap [Moles/Vol] 9 mmol/L Normal 5-15 [facility] Comment on above: Performed By: #### C BC, CMP, 2532-0, 3084-1, AHP, 41685-8, 15176-6, 35278-9, 32450-7 #### [facility] ([id number]) [address] [place] [address] AST [Catalytic activity/Vol] 13 U/L Normal 0-41 [facility] Comment on above: Performed By: #### C BC, CMP, 2532-0, 3084-1, AHP, 67117-4, 25078-0, 67162-9, 79519-5 #### [facility] ([id number]) [address] [place] [address] Bilirubin [Mass/Vol] 0.7 mg/dL Normal 0.3-1.2 [facility] Comment on above: Performed By: #### C BC, CMP, 2532-0, 3084-1, AHP, 47315-3, 96672-3, 38197-8, 30910-1 #### [facility] ([id number]) [address] [place] [address] Calcium [Mass/Vol] 9.4 mg/dL Normal 8.5-10.5 [facility] Comment on above: Performed By: #### C BC, CMP, 2532-0, 3084-1, AHP, 18027-9, 32208-4, 79910-7, 39203-4 #### [facility] ([id number]) [address] [place] [address] Chloride [Moles/Vol] 103 mmol/L Normal 98-109 [facility] Comment on above: Performed By: #### C BC, CMP, 2532-0, 3084-1, AHP, 48390-5, 09302-5, 75364-9, 84597-6 #### [facility] ([id number]) [address] [place] [address] CO2 [Moles/Vol] 24 mmol/L Normal 22-32 [facility] Comment on above: Performed By: #### C BC, CMP, 2532-0, 3084-1, AHP, 22269-5, 33868-1, 98351-1, 17946-0 #### [facility] ([id number]) [address] [place] [address] Creatinine [Mass/Vol] 0.63 mg/dL Normal 0.40-1.00 [facility] Comment on above: Result Comment: METH OD TRACEABLE TO IDMS STANDARD Performed By: #### C SARWAT, CMP, 2532-0, 3084-1, AHP, 65363-8, 47958-7, 78100-7, 77358-4 #### [facility] ([id number]) [address] [place] [address] eGFR (CKD-EPI) NON-RACE DEPENDENT >90 Normal >59 [facility] Comment on above: Result Comment: Reported eGFR is based on the CKD-EPI 2020 equation that does not use a race coefficient. Performed By: #### C SARWAT, CMP, 2532-0, 3084-1, AHP, 49053-5, 38447-4, 93037-9, 57703-1 #### [facility] ([id number]) [address] [place] [address] Glucose [Mass/Vol] 84 mg/dL Normal 65-99 [facility] Comment on above: Performed By: #### C OPAL FAM, 2532-0, 3084-1, AHP, 21371-4, 52612-7, 47903-8, 34428-3 #### [facility] ([id number]) [address] [address] [place] [address] Potassium [Moles/Vol] 3.4 mmol/L Low 3.5-5.0 [facility] Comment on above: Performed By: #### C BC, CMP, 2532-0, 3084-1, AHP, 68985-2, 39536-8, 70846-7, 54779-6 #### [facility] ([id number]) [address] [address] [place] [address] Protein [Mass/Vol] 6.9 g/dL Normal 6.0-8.0 [facility] Comment on above: Performed By: #### C BC, CMP, 2532-0, 3084-1, AHP, 79158-4, 12359-6, 12699-2, 88571-8 #### [facility] ([id number]) [address] [place] [address] Sodium [Moles/Vol] 136 mmol/L Normal 134-146 [facility] Comment on above: Performed By: #### C BC, CMP, 2532-0, 3084-1, AHP, 71642-4, 95279-8, 08649-9, 32990-2 #### [facility] ([id number]) [address] [facility] [place] [address] Urea nitrogen [Mass/Vol] 11 mg/dL Normal 5-23 [facility] Comment on above: Performed By: #### C BC, CMP, 2532-0, 3084-1, AHP, 47157-3, 68654-8, 83583-9, 70428-2 #### [facility] ([id number]) [address] [place] [address] DRUG SCREEN, URINEon 024 AMPHETAMINE/METHAMP Negative Normal NEG [facility] Comment on above: Result Comment: AMPH /METH screening cut off = 1000 ng/mL Performed By: #### N UM #### [facility] ([id number]) [address] [place] [id number] BARBITURATES Negative Normal NEG [facility] Comment on above: Result Comment: Carmella iturates screening cut off value = 200 ng/mL Performed By: #### N UM #### [facility] ([id number]) [address] [place] [id number] BENZODIAZEPINES Negative Normal NEG [facility] Comment on above: Result Comment: German odiazepines screening cut off value = 200 ng/mL Performed By: #### N UM #### [facility] ([id number]) [address] [place] [id number] CANNABINOIDS Positive Abnormal NEG [facility] Comment on above: Result Comment: Conf irmation available upon request. Cannabinoids/THC screening cut off value = 50 ng/mL Performed By: #### N UM #### [facility] ([id number]) [address] [place] [id number] COCAINE METABOLITE Negative Normal NEG [facility] Comment on above: Result Comment: Coca ine screening cut off value = 300 ng/mL Performed By: #### N UM #### [facility] ([id number]) [address] [place] [address]37 ECSTASY Negative Normal NEG [facility] Comment on above: Result Comment: Ecst asy screening cut off value = 500 ng/mL This report is intended for use in clinical monitoring or management of patients. Performed By: #### N UM #### [facility] ([id number]) [address] [place] [id number] METHADONE Negative Normal NEG [facility] Comment on above: Result Comment: Meth adone screening cut off value = 300 ng/mL. Performed By: #### N UM #### [facility] ([id number]) [address] [place] [id number] OPIATES Negative Normal NEG [facility] Comment on above: Result Comment: Opia markie screening cut off value = 300 ng/mL NOTE: This test is used for the detection of codeine, hydrocodone (>1000 ng/mL), morphine and hydromorphone (>900 ng/mL) in urine. Performed By: #### N UM #### [facility] ([id number]) [address] [place] [address] [place] [address] OXYCODONE Negative Normal NEG [facility] Comment on above: Result Comment: Oxyc odone screening cut off value = 300 ng/mL NOTE: This test is used for the detection of oxycodone and oxymorphone in urine. Performed By: #### N UM #### [facility] ([id number]) [address] [place] [address] 24431 PHENCYCLIDINE Negative Normal NEG [facility] Comment on above: Result Comment: Phen cyclidine screening cut off value = 25 ng/mL Performed By: #### N UM #### [facility] ([id number]) [address] [place] [address] 75177 HIV 1+2 Ab+HIV1 p24 Ag IA Ql on 04-16-2023 HIV 1 and 2 Ab/Ag Screen Non-Reactive Normal NRCT [facility] Comment on above: Result Comment: This [...] diagnoses. Performed By: #### N UM #### [facility] ([id number]) [address] [place] [address] 76852 LDH [Catalytic activity/Vol] on 04-16-2023 LDH 156 U/L Normal 100-235 [facility] Comment on above: Performed By: #### N UM #### [facility] ([id number]) [address] [place] [address] 65128 PROTEIN CREAT RATIOon 2023 RANDOM URINE PROTEIN 180 mg/L High <120 [facility] Comment on above: Performed By: #### N UM #### [facility] ([id number]) [address] [place] [address] 46803 U/PRO/DIVIDEND CLERK RATIO CALC 0.07 Normal <0.2 [facility] Comment on above: Result Comment: Neph rotic Syndrome is associated with ratios >3.5 Performed By: #### N UM #### [facility] ([id number]) [address] [place] [address] 19086 URINE CREATININE,RDM 273.50 mg/dL Normal [facility] Comment on above: Performed By: #### N UM #### [facility] ([id number]) [address] [place] [address] 80218 Rubella virus Ab Ql (S)on RUBELLA IMMUNE IgG 3.1 AI Normal [facility] Comment on above: Result Comment: Interpretation-------- <0.8 NEGATIVE-considered Not Immune 0.8-0.9 EQUIVOCAL-consider retesting with new specimen >0.9 POSITIVE-considered Immune Performed By: #### N UM #### [facility] ([id number]) [address] [place] [address] 70512 T. pallidum IgG+IgM IA Ql (S )on 04-16-2023 Syphilis Total <0.2 Normal 0.0-0.8 [facility] Comment on above: Result Comment: NON REACTIVE No serologic evidence of infection to Treponema pallidum (syphilis). Repeat testing may be considered in patients with suspected acute or primary syphilis in 2 to 4 weeks. Performed By: #### N UM #### [facility] ([id number]) [address] [place] [address] 19585 URIC ACIDon 04-16-2023 Urate [Mass/Vol] 7.5 mg/dL High 2.6-7.2 [facility] Comment on above: Performed By: #### N UM #### [facility] ([id number]) [address] [place] [address] 48531 URINALYSISon 04-16-2023 Bilirubin Ql (U) Negative Normal NEG [facility] BLOOD/HGB Negative Normal NEG [facility] CA OXALATE CRYSTALS PRESENT Abnormal NONE [facility] Color (U) BROWN Abnormal YELLOW [facility] Glucose Ql (U) Negative Normal NEG [facility] Ketones Ql (U) Negative Normal NEG [facility] Leukocyte esterase Test strip Ql (U) Small Abnormal NEG [facility] MUCOUS PRESENT Abnormal NONE [facility] Nitrite Ql (U) Negative Normal NEG [facility] pH (U) 6.0 [pH] Normal 5.0-8.5 [facility] Protein Ql (U) 30 mg/dL Abnormal NEG [facility] R.B.CELLS 2 /hpf Normal 0-5 [facility] Specific gravity (U) [Rel density] 1.030 Normal 1.003-1.035 [facility] SQUAMOUS EPITHELIUM >27 High 0-5 [facility] TURBIDITY CLOUDY Abnormal CLEAR [facility] Urobilinogen (U) [Mass/Vol] mg/dL Normal <1.1 [facility] W.B.CELLS <1 Normal 0-5 [facility] URINE CULTUREon 04-16-2023 Bacteria identified Cx Nom (U) CULTURE RESULTS 50-100,000 ORGANISMS/ML NORMAL UROGENITAL YOGESH Normal [facility] Comment on above: Performed By: #### 2 106-3 #### [facility] ([id number]) [address] [place] [address] [place] [address] US PREG LESS THAN 14 WKS WIT H TRANSVAGINALon 04-16-2023 US PREG LESS THAN 14 WKS WITH TRANSVAGINAL US PREG LESS THAN 14 WKS WITH TRANSVAGINAL US PREG LESS THAN 14 WKS WITH TRANSVAGINAL: 04/16/2023 1:04 PM Clinical: Check dates and viability. Real-time transabdominal and transvaginal sonography pelvis performed.. No comparison. There is a single live intrauterine . Mayflower-rump length of 2.9 mm corresponds to 5 [...] Cook MD on 04/16/2023 6:58 PM Normal [facility] VZV IgG IA Ql (S)on 04-16-19 24 VARICELLA IgG 1.1 AI High <0.9 [facility] Comment on above: Result Comment: Interpretation-------- <0.9 Negative 0.9 - 1.0 Equivocal >1.0 Positive Performed By: #### N UM #### [facility] ([id number]) [address] [place] [address] 69698 CBC AND AUTO DIFFon 03-30-19 24 ABSOLUTE BASOPHIL 0.1 X10E9/L Normal 0.0-0.2 [facility] Comment on above: Performed By: #### C SANAM [facility], 30756-6 #### [facility] ([id number]) [address] [place] [address] 12997 ABSOLUTE NEUTROPHIL 7.6 X10E9/L High 1.5-6.6 [facility] Comment on above: Performed By: #### C OPAL MARION, 56118-4 #### [facility] ([id number]) [address] [place] [address] 51722 Basophils/100 WBC (Bld) 0.7 % Normal [facility] Comment on above: Performed By: #### C OPAL MARION, 08235-3 #### [facility] ([id number]) [address] [place] [address] Eosinophils (Bld) [#/Vol] 0.2 10*3/uL Normal 0.0-0.4 [facility] Comment on above: Performed By: #### Doretah MARION CMP, #### [facility] ([id number]) [address] [place] [address] 97751 Eosinophils/100 WBC (Bld) 1.8 % Normal [facility] Comment on above: Performed By: #### Doretha MARION [facility], #### [facility] ([id number]) [address] [place] [address] 72599 Erythrocyte distribution width (RBC) [Ratio] 18.4 % High 11.5-15.0 [facility] Comment on above: Performed By: #### Doretha MARION [facility], #### [facility] ([id number]) [address] [place] [address] 24618 Hematocrit (Bld) [Volume fraction] 35.8 % Normal 35-47 [facility] Comment on above: Performed By: #### Doretha MARION [facility], #### [facility] ([id number]) [address] [place] [address] 41893 Hemoglobin (Bld) [Mass/Vol] 11.7 g/dL Normal 11.7-15.5 [facility] Comment on above: Performed By: #### Doretha MARION [facility], #### [facility] ([id number]) [address] [place] [address] 44910 Lymphocytes (Bld) [#/Vol] 2.2 10*3/uL Normal 1.0-3.5 [facility] Comment on above: Performed By: #### Doretha MARION CMP, #### [facility] ([id number]) [address] [place] [address] 34119 Lymphocytes/100 WBC (Bld) 20.7 % Normal [facility] Comment on above: Performed By: #### C OPAL MARION, #### [facility] ([id number]) [address] [place] [address] 33308 MCH (RBC) [Entitic mass] 26.2 pg Low 27-34 [facility] Comment on above: Performed By: #### Doretha MARION CMP, #### [facility] ([id number]) [address] [place] [address] 22986 MCHC (RBC) [Mass/Vol] 32.8 g/dL Normal 32-36 [facility] Comment on above: Performed By: #### Doretha MARION CMP, #### [facility] ([id number]) [address] [place] [address] 94255 MCV (RBC) [Entitic vol] 80 fL Normal 80-100 [facility] Comment on above: Performed By: #### Doretha MARION CMP, #### [facility] ([id number]) [address] [place] [address] 86784 Monocytes (Bld) [#/Vol] 0.5 10*3/uL Normal 0-0.9 [facility] Comment on above: Performed By: #### Doretha MARION CMP, #### [facility] ([id number]) [address] [place] [address] 06706 Monocytes/100 WBC (Bld) 5.2 % Normal [facility] Comment on above: Performed By: #### Doretha MARION CMP, #### [facility] ([id number]) [address] [place] [address] 74720 Neutrophils/100 WBC (Bld) 71.6 % Normal [facility] Comment on above: Performed By: #### Doretha MARION CMP, #### [facility] ([id number]) [address] [place] [address] 10670 Platelet mean volume (Bld) [Entitic vol] 8.3 fL Normal 7-12 [facility] Comment on above: Performed By: #### C SANAM CMP, #### [facility] ([id number]) [address] [place] [address] 23186 Platelets (Bld) [#/Vol] 337 10*3/uL Normal 150-450 [facility] Comment on above: Performed By: #### Doretha MARION CMP, #### [facility] ([id number]) [address] [place] [address] 12529 RBC COUNT 4.48 X10E12/L Normal 3.80-5.20 [facility] Comment on above: Performed By: #### Doretha MARION CMP, #### [facility] ([id number]) [address] [place] [address] 72308 WBC (Bld) [#/Vol] 10.6 10*3/uL Normal 4.0-11.0 [facility] Comment on above: Performed By: #### Doretha MARION CMP, #### [facility] ([id number]) [address] [place] [address] 92018 COMPREHENSIVE METABOLIC PANE Shaji 03-30-2023 Albumin [Mass/Vol] 4.4 g/dL Normal 3.2-5.3 [facility] Comment on above: Performed By: #### C SANAM CMP, #### [facility] ([id number]) [address] [place] [address] 47303 ALP [Catalytic activity/Vol] 40 U/L Normal 39-130 [facility] Comment on above: Performed By: #### Doretha MARION CMP, #### [facility] ([id number]) [address] [place] [address] 50982 ALT [Catalytic activity/Vol] 12 U/L Normal 0-31 [facility] Comment on above: Performed By: #### C BCA, CMP, #### [facility] ([id number]) [address] [place] [address] 28196 Anion gap [Moles/Vol] 8 mmol/L Normal 5-15 [facility] Comment on above: Performed By: #### C BCA, CMP, #### [facility] ([id number]) [address] [place] [address] 07195 AST [Catalytic activity/Vol] 16 U/L Normal 0-41 [facility] Comment on above: Performed By: #### C BCA, CMP, #### [facility] ([id number]) [address] [place] [address] 39852 Bilirubin [Mass/Vol] 0.5 mg/dL Normal 0.3-1.2 [facility] Comment on above: Performed By: #### C BCA, CMP, #### [facility] ([id number]) [address] [place] [address] 94759 Calcium [Mass/Vol] 9.2 mg/dL Normal 8.5-10.5 [facility] Comment on above: Performed By: #### C BCA, CMP, #### [facility] ([id number]) [address] [place] [address] 49329 Chloride [Moles/Vol] 105 mmol/L Normal 98-109 [facility] Comment on above: Performed By: #### C BCA, CMP, #### [facility] ([id number]) [address] [place] [address] 55170 CO2 [Moles/Vol] 24 mmol/L Normal 22-32 [facility] Comment on above: Performed By: #### C OPAL MARION, 23672-6 #### [facility] ([id number]) [address] [place] [address] 86536 Creatinine [Mass/Vol] 0.74 mg/dL Normal 0.40-1.00 [facility] Comment on above: Result Comment: METH OD TRACEABLE TO IDMS STANDARD Performed By: #### C OPAL MARION, #### [facility] ([id number]) [address] [place] [address] 96542 eGFR (CKD-EPI) NON-RACE DEPENDENT >90 Normal >59 [facility] Comment on above: Result Comment: Reported eGFR is based on the CKD-EPI 2020 equation that does not use a race coefficient. Performed By: #### C OPAL MARION, #### [facility] ([id number]) [address] [place] [address] 19405 Glucose [Mass/Vol] 89 mg/dL Normal 65-99 [facility] Comment on above: Performed By: #### C OPAL MARION, #### [facility] ([id number]) [address] [place] [address] 51089 Potassium [Moles/Vol] 3.7 mmol/L Normal 3.5-5.0 [facility] Comment on above: Performed By: #### C OPAL MARION, #### [facility] ([id number]) [address] [place] [address] 17106 Protein [Mass/Vol] 7.4 g/dL Normal 6.0-8.0 [facility] Comment on above: Performed By: #### C OPAL MARION, #### [facility] ([id number]) [address] [place] [address] 76489 Sodium [Moles/Vol] 137 mmol/L Normal 134-146 [facility] Comment on above: Performed By: #### C BCA, CMP, 75689-3 #### [facility] ([id number]) [address] [place] [address] 87019 Urea nitrogen [Mass/Vol] 10 mg/dL Normal 5-23 [facility] Comment on above: Performed By: #### C BCA, CMP, 94604-0 #### [facility] ([id number]) [address] [place] [address] 50093 HCG ( test) Ql (U)o n 03-30-2023 Beta HCG ( test) Ql (U) Positive Abnormal NEG [facility] Comment on above: Performed By: #### 2 106-3 #### [facility] ([id number]) [address] [place] [address] 66381 HCG.beta subunit IA 3rd IS Q non 03-30-2023 HCG.beta subunit Qn 80 m[IU]/mL Normal [facility] Comment on above: Result Comment: NEW [...] Performed By: #### C BCA, CMP, #### [facility] ([id number]) [address] [place] [address] 71099 URINE CULTUREon 03-30-2023 Bacteria identified Cx Nom (U) CULTURE RESULTS 10-50,000 ORGANISMS/mL NORMAL UROGENITAL YOGESH Normal [facility] Comment on above: Performed By: #### 6 30-4 #### [facility] ([id number]) [address] [place] [address], [address] [place] [address] URN MACROSCOPIC NURon 2023 BILIRUBIN YARI Negative Normal NEG [facility] Comment on above: Performed By: #### N UM #### [facility] ([id number]) [address] [place] [address] [place] [address] BLOOD/HGB YARI Negative Normal NEG [facility] Comment on above: Performed By: #### N UM #### [facility] ([id number]) [address] [place] [address] [place] [address] GLUCOSE YARI Negative Normal NEG [facility] Comment on above: Performed By: #### N UM #### [facility] ([id number]) [address] [place] [address], [place] [address] KETONES YARI Negative Normal NEG [facility] Comment on above: Performed By: #### N UM #### [facility] ([id number]) [address] [place] [address], [place] [address] LEUKOCYTE ESTERASE YARI Negative Normal NEG [facility] Comment on above: Performed By: #### N UM #### [facility] ([id number]) [address] [place] [address] [place] [address] NITRITE YARI Negative Normal NEG [facility] Comment on above: Performed By: #### N UM #### [facility] ([id number]) [address] [place] [address] [place] [address] PH YARI 6.0 Normal 5.0-8.5 [facility] Comment on above: Performed By: #### N UM #### [facility] ([id number]) [address] [place] [address] PROTEIN YARI Negative Normal NEG [facility] Comment on above: Performed By: #### N UM #### [facility] ([id number]) [address] [place] [address] SPECIFIC GRAVITY YARI >=1.030 Normal 1.003-1.[address] [facility] Comment on above: Performed By: #### N UM #### [facility] ([id number]) [address] [place] [address] UROBILINOGEN YARI 0.2 eu/dL Normal <1.1 [facility] Comment on above: Performed By: #### N UM #### [facility] ([id number]) [address] [place] [address] 76306 US PREG LESS THAN 14 WKS WIT [...] Eckert MD on 03/30/2023 8:48 PM Normal [facility] Cholesterol [Mass/volume] in Serum or PlasmaOrdered By: Dar Nation on 11-28-2022 Cholesterol [Mass/Vol] 200 mg/dL 140-200 [facility] Comment on above: Chol less than 200 m g/dl low riskChol 201-239 mg/dl borderline riskChol 240 mg/dl and greater high risk Cholesterol in LDL Calc [Mas s/Vol]Ordered By: Dar Nation on 11-28-2022 Cholesterol in LDL [Mass/Vol] 75 mg/dL 0-100 [facility] Comment on above: LDL ATP III CLASSIFI CATIONLDL less than 100 mg/dL OptimalLDL 100-129 mg/dL Near or above optimalLDL 130-159 mg/dL Borderline highLDL 160-189 mg/dL HighLDL greater than 189 mg/dL Very high Cholesterol in VLDL Calc [Ma ss/Vol]Ordered By: Dar Nation on 11-28-2022 Cholesterol in VLDL [Mass/Vol] 16 mg/dL [facility] Lipid Panelon 11-28-2022 Cholesterol [Mass/Vol] 200 mg/dL Normal 140-200 [facility] Comment on above: Result Comment: Chol less than 200 mg/dl low risk Chol 201-239 mg/dl borderline risk Chol 240 mg/dl and greater high risk Performed By: #### H S TROP, CMP, ETOH, CBC, TSH3 #### [facility] [address] [place] [address] [place] Cholesterol in HDL [Mass/Vol] 109 mg/dL High 23-92 [facility] Comment on above: Result Comment: HDL CHOL ATP-III CLASSIFICATION Cardiovascular Risk HDL > or equal to 60 mg/dL LOW HDL < 40 mg/dL HIGH Performed By: #### H S TROP, CMP, ETOH, CBC, TSH3 #### [facility] [address] [place] [address] [place] Cholesterol.total/Sarah sterol in HDL [Mass ratio] 1.8 {ratio} Normal <5.0 [facility] Comment on above: Performed By: #### H S TROP, CMP, ETOH, CBC, TSH3 #### [facility] [address] [place] [address] [place] LDL Cholesterol,Calculated 75 mg/dL Normal 0-100 [facility] Comment on above: Result Comment: LDL ATP III CLASSIFICATION LDL less than 100 mg/dL Optimal LDL 100-129 mg/dL Near or above optimal LDL 130-159 mg/dL Borderline high LDL 160-189 mg/dL High LDL greater than 189 mg/dL Very high Performed By: #### H S TROP, CMP, ETOH, CBC, TSH3 #### [facility] [address] Triglyceride w/Reflex 80 mg/dL Normal 0-149 [facility] Comment on above: Result Comment: TRIG ATP III CLASSIFICATION TRIG less than 150 mg/dL Normal TRIG 150-199 mg/dL Borderline high TRIG 200-500 mg/dL High TRIG greater than 500 mg/dL Very high Standard traceable to the Center for Disease Conrtrol and Prevention (CDC) test method. Performed By: #### H S TROP, CMP, ETOH, CBC, TSH3 #### [facility] [address] VLDL CHOLESTEROL 16 mg/dL Normal [facility] Comment on above: Performed By: #### H S TROP, CMP, ETOH, CBC, TSH3 #### [facility] [address] Serum or plasma high density lipoprotein (HDL) cholesterol measurementOrdered By: Dar Nation on 11-28-2022 Cholesterol in HDL [Mass/Vol] 109 mg/dL 23-92 [facility] Comment on above: HDL CHOL ATP-III CLA SSIFICATION Cardiovascular RiskHDL > or equal to 60 mg/dL LOWHDL < 40 mg/dL HIGH Serum or plasma total choles terol/high density lipoprotein (HDL) cholesterol mass ratOrdered By: Dar Nation on 11-28-2022 Cholesterol.total/Sarah sterol in HDL [Mass ratio] 1.8 {ratio} <5.0 [facility] Thyroid Stim Hormone w/Rflxo n 11-28-2022 Thyroid Stim Hormone w/Rflx 1.79 u[iU]/mL Normal 0.45-5.33 [facility] Comment on above: Performed By: #### H S TROP, CMP, ETOH, CBC, TSH3 #### [facility] [address] Thyrotropin [Units/volume] i n Serum or PlasmaOrdered By: Dar Nation on 11-28-2022 TSH Qn 1.79 m[IU]/L 0.45-5.33 [facility] Triglyceride [Mass/volume] i n Serum or PlasmaOrdered By: Dar Nation on 11-28-2022 Triglyceride [Mass/Vol] 80 mg/dL 0-149 [facility] Comment on above: TRIG ATP III CLASSIF ICATIONTRIG less than 150 mg/dL NormalTRIG 150-199 mg/dL Borderline highTRIG 200-500 mg/dL High TRIG greater than 500 mg/dL Very highStandard traceable to the Center for Disease Conrtrol and Prevention (CDC) test method. Vitamin D 25 Hydroxy Totalon 11-28-2022 Vitamin D 25 Hydroxy Total 32.8 ng/mL Normal 30-100 [facility] Comment on above: Result Comment: JESSICA MIN D STATUS 25(OH)VITAMIN D RANGE (ng/mL) Deficient <20 Insufficient 20 to <30 Sufficient 30 to 100 Reference: Aye Palacios, Geremias YOUNG, et al. Evaluation,treatment, and prevention of vitamin D deficiency; an Endocrine Society clinical practice guideline. JCEM. 2010; 96(7):1911-30. PERFORMED BY: [place] [address] PATHOLOGIST [employer] KELLIE ALVARADO M.D. Performed By: #### H S TROP, CMP, ETOH, CBC, TSH3 #### [address] Vitamin D+Metabolites [Mass/ volume] in Serum or PlasmaOrdered By: Dar Nation on 11-28-2022 Vitamin D+Metabolites [Mass/Vol] 32.8 ng/mL 30-100 [facility] Comment on above: VITAMIN D [...] 11-27-2022 ALT [Catalytic activity/Vol] 19 U/L 7-52 [facility] Albumin [Mass/volume] in Ser um or Plasma by Bromocresol green (BCG) dye binding methoOrdered By: Sara Tripathi on 11-27-2022 Albumin BCG dye [Mass/Vol] 4.2 g/dL 3.5-5.7 [facility] Alkaline phosphatase [Enzyma tic activity/volume] in Serum or PlasmaOrdered By: Sara Tripathi on 11-27-2022 ALP [Catalytic activity/Vol] 56 U/L 34-104 [facility] Amphetamine Screen Ql (U)Ord ered By: Sara Tripathi on 11-27-2022 Amphetamines Ql (U) Negative Negative [facility] Aspartate aminotransferase [ Enzymatic activity/volume] in Serum or PlasmaOrdered By: Sara Tripathi on 11-27-2022 AST [Catalytic activity/Vol] 31 U/L 13-39 [facility] Automated erythrocytes count in urine sediment (number/area)Ordered By: Sara Tripathi on 11-27-2022 RBC Auto (Urine sed) [#/Area] 5-9 [HPF] 0-4 [facility] Automated leukocytes count i n urine sediment (number/area)Ordered By: Sara Tripathi on 11-27-2022 WBC Auto (Urine sed) [#/Area] 50-100 [HPF] 0-4 [facility] Automated urine hyaline cast s count (number/volume)Ordered By: Sara Tripathi on 11-27-2022 Hyaline casts Auto (U) [#/Vol] None seen [LPF] 0-1 [facility] Barbiturates [Presence] in U rine by Screen methodOrdered By: Sara Tripathi on 11-27-2022 Barbiturates Screen Ql (U) Negative Negative [facility] Basophils Auto (Bld) [#/Vol] Ordered By: Sara Tripathi on 11-27-2022 Basophils (Bld) [#/Vol] 0.2 10*3/uL 0.0-0.2 [facility] Basophils/100 WBC Auto (Bld) Ordered By: Sara Tripathi on 11-27-2022 Basophils/100 WBC (Bld) 3.0 % . F [facility] Benzodiazepines Screen Ql (U )Ordered By: Sara Tripathi on 11-27-2022 Benzodiazepines Ql (U) Negative Negative [facility] Benzoylecgonine [Presence] i n Urine by Screen methodOrdered By: Sara Tripathi on 11-27-2022 Benzoylecgonine Screen Ql (U) Negative Negative [facility] Bilirubin Test strip Ql (U)O rdered By: Sara Tripathi on 11-27-2022 Bilirubin Ql (U) Negative Negative [facility] Bilirubin.total [Mass/volume ] in Serum or PlasmaOrdered By: Sara Tripathi on 11-27-2022 Bilirubin [Mass/Vol] 0.7 mg/dL 0.3-1.0 [facility] CT abdomen pelvis wo conon 1 CT abdomen pelvis wo con [facility] [address] CT Scan Report Signed Patient: Antoinette Recio MR#: [id number] : 1995 Acct:[id number] Age/Sex: 27 / F ADM Date: 11/27/22 Loc: ER Room: Type: [facility] ER Attending Dr: Copies to: [...] Vipul Rucker M.D.11/27/2022 11:17 AM Dictation Location: [place] [address] Transcribed By: [facility] 11/27/22 111 Dictated By: Vipul Rucker II, MD 11/27/22 111 Signed By: 11/27/22 111 Normal [facility] Calcium [Mass/volume] in Ser um or PlasmaOrdered By: Sara Tripathi on 11-27-2022 Calcium [Mass/Vol] 9.4 mg/dL 8.6-10.3 [facility] Cannabinoids [Presence] in U rine by Screen methodOrdered By: Sara Tripathi on 11-27-2022 Cannabinoids Screen Ql (U) Positive Negative [facility] Comment on above: These are unconfirme d results and should not be used for legal purposes. Drug Cut-Off Concentration: AMPH 1000 ng/mL CARMELLA 200 ng/mL GERMAN 200 ng/mL COCM 300 ng/mL OP 300 ng/mL PCP 25 ng/mL THC 20 ng/mL Carbon dioxide, total [Moles /volume] in Serum or PlasmaOrdered By: Sara Tripathi on 11-27-2022 CO2 [Moles/Vol] 24.9 mmol/L 21.0-31.0 [facility] Casts typing in urine sedime nt by light microscopyOrdered By: Sara Tripathi on 11-27-2022 Casts LM Nom (Urine sed) None seen [LPF] None Seen [facility] Chloride [Moles/volume] in S phil or PlasmaOrdered By: Sara Tripathi on 11-27-2022 Chloride [Moles/Vol] 101 mmol/L 98-107 [facility] Coarse granular casts count in urine sediment by microscopy low power field (number/aOrdered By: Sara Tripathi on 11-27-2022 Coarse Granular Casts LM.LPF (Urine sed) [#/Area] 0-1 [LPF] 0-1 [facility] Color Auto (U)Ordered By: Donna Tripathi on 11-27-2022 Color (U) Dark yellow Yellow [facility] Complete Blood Count Auto Di ffon 11-27-2022 Basophils (Bld) [#/Vol] 0.2 10*3/uL Normal 0.0-0.2 [facility] Comment on above: Result Comment: PERF ORMED BY: [place] [address] PATHOLOGIST [employer] KELLIE ALVARADO M.D. Performed By: #### H S TROP, CMP, ETOH, CBC, TSH3 #### [facility] [address] [place] [address] Basophils/100 WBC (Bld) 3.0 % Normal . [facility] Comment on above: Performed By: #### H S TROP, CMP, ETOH, CBC, TSH3 #### [facility] [address] [place] [address] Eosinophils (Bld) [#/Vol] 0.1 10*3/uL Normal 0.0-0.45 [facility] Comment on above: Performed By: #### H S TROP, CMP, ETOH, CBC, TSH3 #### [address] Eosinophils/100 WBC (Bld) 1.1 % Normal . [facility] Comment on above: Performed By: #### H S TROP, CMP, ETOH, CBC, TSH3 #### [facility] [address] [place] [address] Erythrocyte distribution width (RBC) [Ratio] 15.9 % High 11.9-15.3 [facility] Comment on above: Performed By: #### H S TROP, CMP, ETOH, CBC, TSH3 #### [facility] [address] [place] [address] Hematocrit (Bld) [Volume fraction] 38.0 % Normal 34.0-46.4 [facility] Comment on above: Performed By: #### H S TROP, CMP, ETOH, CBC, TSH3 #### [address] Hemoglobin (Bld) [Mass/Vol] 12.5 g/dL Normal 11.8-15.4 [facility] Comment on above: Performed By: #### H S TROP, CMP, ETOH, CBC, TSH3 #### [address] Lymphocytes (Bld) [#/Vol] 0.8 10*3/uL Low 1.00-4.8 [facility] Comment on above: Performed By: #### H S TROP, CMP, ETOH, CBC, TSH3 #### [address] Lymphocytes/100 WBC (Bld) 11.3 % Normal . [facility] Comment on above: Performed By: #### H S TROP, CMP, ETOH, CBC, TSH3 #### [address] MCH (RBC) [Entitic mass] 28.8 pg Normal 24.7-34.3 [facility] Comment on above: Performed By: #### H S TROP, CMP, ETOH, CBC, TSH3 #### [address] MCV (RBC) [Entitic vol] 87.5 fL Normal 80-100 [facility] Comment on above: Performed By: #### H S TROP, CMP, ETOH, CBC, TSH3 #### [address] Mean Corpuscular HGB Conc 33.0 g/dL Normal 32.0-35.0 [facility] Comment on above: Performed By: #### H S TROP, CMP, ETOH, CBC, TSH3 #### [address] Monocytes (Bld) [#/Vol] 0.6 10*3/uL Normal 0.0-0.8 [facility] Comment on above: Performed By: #### H S TROP, CMP, ETOH, CBC, TSH3 #### [address] Monocytes/100 WBC (Bld) 17.41 % Normal 0.00-20.00 [facility] Comment on above: Performed By: #### H S TROP, CMP, ETOH, CBC, TSH3 #### [address] Monocytes/100 WBC (Bld) 8.9 % Normal . [facility] Comment on above: Performed By: #### H S TROP, CMP, ETOH, CBC, TSH3 #### [address] Neutrophils (Bld) [#/Vol] 5.1 10*3/uL Normal 1.8-7.7 [facility] Comment on above: Performed By: #### H S TROP, CMP, ETOH, CBC, TSH3 #### [address] Neutrophils/100 WBC (Bld) 75.7 % Normal . [facility] Comment on above: Performed By: #### H S TROP, CMP, ETOH, CBC, TSH3 #### [address] NRBC% 0.0 /100{WBC} Normal 0-0.5 [facility] Comment on above: Performed By: #### H S TROP, CMP, ETOH, CBC, TSH3 #### [address] Platelet mean volume (Bld) [Entitic vol] 7.1 fL Normal 6.3-10.7 [facility] Comment on above: Performed By: #### H S TROP, CMP, ETOH, CBC, TSH3 #### [address] Platelets (Bld) [#/Vol] 402 10*3/uL Normal 150-450 [facility] Comment on above: Performed By: #### H S TROP, CMP, ETOH, CBC, TSH3 #### [address] RBC (Bld) [#/Vol] 4.34 10*6/uL Normal 3.60-5.00 [facility] Comment on above: Performed By: #### H S TROP, CMP, ETOH, CBC, TSH3 #### [address] WBC (Bld) [#/Vol] 6.7 10*3/uL Normal 3.8-11.6 [facility] Comment on above: Performed By: #### H S TROP, CMP, ETOH, CBC, TSH3 #### [address] Comprehensive Metabolic Pane shaji 11-27-2022 Albumin [Mass/Vol] 4.2 g/dL Normal 3.5-5.7 [facility] Comment on above: Performed By: #### H S TROP, CMP, ETOH, CBC, TSH3 #### [address] Albumin/Globulin [Mass ratio] 1.4 {ratio} Normal [facility] Comment on above: Performed By: #### H S TROP, CMP, ETOH, CBC, TSH3 #### [address] ALP [Catalytic activity/Vol] 56 U/L Normal 34-104 [facility] Comment on above: Performed By: #### H S TROP, CMP, ETOH, CBC, TSH3 #### [address] ALT [Catalytic activity/Vol] 19 U/L Normal 7-52 [facility] Comment on above: Performed By: #### H S TROP, CMP, ETOH, CBC, TSH3 #### [address] Anion gap [Moles/Vol] 15.4 mmol/L High 6.0-15.0 [facility] Comment on above: Performed By: #### H S TROP, CMP, ETOH, CBC, TSH3 #### [facility] [address] AST [Catalytic activity/Vol] 31 U/L Normal 13-39 [facility] Comment on above: Performed By: #### H S TROP, CMP, ETOH, CBC, TSH3 #### [facility] [address] Bilirubin [Mass/Vol] 0.7 mg/dL Normal 0.3-1.0 [facility] Comment on above: Performed By: #### H S TROP, CMP, ETOH, CBC, TSH3 #### [facility] [address] Calcium [Mass/Vol] 9.4 mg/dL Normal 8.6-10.3 [facility] Comment on above: Performed By: #### H S TROP, CMP, ETOH, CBC, TSH3 #### [facility] [address] Chloride [Moles/Vol] 101 mmol/L Normal 98-107 [facility] Comment on above: Performed By: #### H S TROP, CMP, ETOH, CBC, TSH3 #### [address] CO2 [Moles/Vol] 24.9 mmol/L Normal 21.0-31.0 [facility] Comment on above: Performed By: #### H S TROP, CMP, ETOH, CBC, TSH3 #### [facility] [address] [place] [address] [place] Creatinine [Mass/Vol] 0.83 mg/dL Normal 0.60-1.20 [facility] Comment on above: Performed By: #### H S TROP, CMP, ETOH, CBC, TSH3 #### [facility] [address] [place] [address] [place] Creatinine Clr Calc Pharmacy 110.58 Normal [facility] Comment on above: Performed By: #### H S TROP, CMP, ETOH, CBC, TSH3 #### [facility] [address] [place] [address] [place] GFR/1.73 sq M.predicted MDRD (S/P/Bld) [Vol rate/Area] mL/min/{1.73_m2} Normal [facility] Comment on above: Performed By: #### H S TROP, CMP, ETOH, CBC, TSH3 #### [facility] [address] Globulin (S) [Mass/Vol] 2.9 g/dL Normal F [facility] Comment on above: Performed By: #### H S TROP, CMP, ETOH, CBC, TSH3 #### [facility] [address] Glucose [Mass/Vol] 82 mg/dL Normal 70-100 [facility] Comment on above: Result Comment: [facility] Glucose Reference Range is dependent on time and content of last meal. Glucose of more than 200 mg/dL in a nonstressed, ambulatory subject supports the diagnosis of Diabetes Mellitus. ADA recommended reference range Performed By: #### H S TROP, CMP, ETOH, CBC, TSH3 #### [facility] [address] Potassium [Moles/Vol] 3.3 mmol/L Low 3.5-5.1 [facility] Comment on above: Performed By: #### H S TROP, CMP, ETOH, CBC, TSH3 #### [address] Protein [Mass/Vol] 7.1 g/dL Normal 6.4-8.9 [facility] Comment on above: Performed By: #### H S TROP, CMP, ETOH, CBC, TSH3 #### [facility] [address] [place] [address] [place] Sodium [Moles/Vol] 138 mmol/L Normal 136-145 [facility] Comment on above: Performed By: #### H S TROP, CMP, ETOH, CBC, TSH3 #### [facility] [address] Urea nitrogen [Mass/Vol] 9 mg/dL Normal 7-25 [facility] Comment on above: Performed By: #### H S TROP, CMP, ETOH, CBC, TSH3 #### [facility] [address] [place] [address] Creatinine [Mass/volume] in Serum or PlasmaOrdered By: Sara Tripathi on 11-27-2022 Creatinine [Mass/Vol] 0.83 mg/dL 0.60-1.20 [facility] Dipstick and Microscopicon 1 Appearance (U) Turbid Critically abnormal Clear [facility] Comment on above: Order Comment: Name Collection Type:: Clean-Voided Midstream Performed By: #### H S TROP, CMP, ETOH, CBC, TSH3 #### [facility] [address] [place] [address] Bacteria,Urine 4+ High None Seen [facility] Comment on above: Order Comment: Name Collection Type:: Clean-Voided Midstream Performed By: #### H S TROP, CMP, ETOH, CBC, TSH3 #### [facility] [address] [place] [address] Bilirubin,Urine Negative Normal Negative [facility] Comment on above: Order Comment: Name Collection Type:: Clean-Voided Midstream Performed By: #### H S TROP, CMP, ETOH, CBC, TSH3 #### [facility] [address] [place] [address] Coarse Granular Casts,Urine 0-1 Normal 0-1 [facility] Comment on above: Order Comment: Name Collection Type:: Clean-Voided Midstream Performed By: #### H S TROP, CMP, ETOH, CBC, TSH3 #### [facility] [address] [place] [address] Color (U) Dark Yellow Critically abnormal Yellow [facility] Comment on above: Order Comment: Name Collection Type:: Clean-Voided Midstream Performed By: #### H S TROP, CMP, ETOH, CBC, TSH3 #### [facility] [address] [place] [address] Fine Granular Casts,Urine 0-1 Normal 0-1 [facility] Comment on above: Order Comment: Name Collection Type:: Clean-Voided Midstream Performed By: #### H S TROP, CMP, ETOH, CBC, TSH3 #### [facility] [address] [place] [address] Glucose Ql (U) Normal Normal Normal [facility] Comment on above: Order Comment: Name Collection Type:: Clean-Voided Midstream Performed By: #### H S TROP, CMP, ETOH, CBC, TSH3 #### [address] Hyaline Casts,Urine None Seen Normal 0-1 [facility] Comment on above: Order Comment: Name Collection Type:: Clean-Voided Midstream Performed By: #### H S TROP, CMP, ETOH, CBC, TSH3 #### [address] Ketones Ql (U) Negative Normal Negative [facility] Comment on above: Order Comment: Name Collection Type:: Clean-Voided Midstream Performed By: #### H S TROP, CMP, ETOH, CBC, TSH3 #### [address] Leukocyte esterase Test strip Ql (U) 2+ High Negative [facility] Comment on above: Order Comment: Name Collection Type:: Clean-Voided Midstream Performed By: #### H S TROP, CMP, ETOH, CBC, TSH3 #### [address] Nitrite,Urine Negative Normal Negative [facility] Comment on above: Order Comment: Name Collection Type:: Clean-Voided Midstream Performed By: #### H S TROP, CMP, ETOH, CBC, TSH3 #### [address] Occult Blood,Urine 1+ High Negative [facility] Comment on above: Order Comment: Name Collection Type:: Clean-Voided Midstream Performed By: #### H S TROP, CMP, ETOH, CBC, TSH3 #### [address] Other Casts,Urine None Seen Normal None Seen [facility] Comment on above: Order Comment: Name Collection Type:: Clean-Voided Midstream Performed By: #### H S TROP, CMP, ETOH, CBC, TSH3 #### [address] pH (U) 5.0 [pH] Normal 5.0-9.0 [facility] Comment on above: Order Comment: Name Collection Type:: Clean-Voided Midstream Performed By: #### H S TROP, CMP, ETOH, CBC, TSH3 #### [address] Protein,Urine Trace High Negative [facility] Comment on above: Order Comment: Name Collection Type:: Clean-Voided Midstream Performed By: #### H S TROP, CMP, ETOH, CBC, TSH3 #### [address] RBC,Urine 5-9 High 0-4 [facility] Comment on above: Order Comment: Name Collection Type:: Clean-Voided Midstream Performed By: #### H S TROP, CMP, ETOH, CBC, TSH3 #### [address] Specificy [place],Urine 1.023 Normal 1.001-1.030 [facility] Comment on above: Order Comment: Name Collection Type:: Clean-Voided Midstream Performed By: #### H S TROP, CMP, ETOH, CBC, TSH3 #### [address] Squamous Epithelial Cell,Urine 20-30 High 0-2 [facility] Comment on above: Order Comment: Name Collection Type:: Clean-Voided Midstream Performed By: #### H S TROP, CMP, ETOH, CBC, TSH3 #### [address] Urobilinogen,Urine Normal Normal Normal [facility] Comment on above: Order Comment: Name Collection Type:: Clean-Voided Midstream Performed By: #### H S TROP, CMP, ETOH, CBC, TSH3 #### [address] WBC,Urine 50-100 High 0-4 [facility] Comment on above: Order Comment: Name Collection Type:: Clean-Voided Midstream Performed By: #### H S TROP, CMP, ETOH, CBC, TSH3 #### [address] Drug Screen,Urineon 11-28-19 23 Amphetamine Screen,Urine Negative Normal Negative [facility] Comment on above: Performed By: #### H S TROP, CMP, ETOH, CBC, TSH3 #### [address] Barbiturate Screen,Urine Negative Normal Negative [facility] Comment on above: Performed By: #### H S TROP, CMP, ETOH, CBC, TSH3 #### [address] Benzodiazepines Screen,Urine Negative Normal Negative [facility] Comment on above: Performed By: #### H S TROP, CMP, ETOH, CBC, TSH3 #### [address] Cannabinoid Screen,Urine Positive High Negative [facility] Comment on above: Result Comment: Thes e are unconfirmed results and should not be used for legal purposes. Drug Cut-Off Concentration: AMPH 1000 ng/mL CARMELLA 200 ng/mL GERMAN 200 ng/mL COCM 300 ng/mL OP 300 ng/mL PCP 25 ng/mL THC 20 ng/mL PERFORMED BY: [place] [address] PATHOLOGIST [employer] KELLIE ALVARADO M.D. Performed By: #### H S TROP, CMP, ETOH, CBC, TSH3 #### [address] Cocaine Screen,Urine Negative Normal Negative [facility] Comment on above: Performed By: #### H S TROP, CMP, ETOH, CBC, TSH3 #### [address] Opiate Screen,Urine Negative Normal Negative [facility] Comment on above: Performed By: #### H S TROP, CMP, ETOH, CBC, TSH3 #### [address] Phencyclidine Screen,Urine Negative Normal Negative [facility] Comment on above: Performed By: #### H S TROP, CMP, ETOH, CBC, TSH3 #### [facility] [address] ECG 12 lead ECGon 11-27-2022 ECG 12 lead ECG [facility] [place] [address] [place] [address] Electrocardiograph Report Signed Patient: Antoinette Recio MR#: [id number] : 1995 Acct:[id number] Age/Sex: 27 / F ADM Date: 11/27/22 Loc: ER Room: Type: [facility] ER Attending Dr: Ordering Provider: [...] By Sara Tripathi MD 11/27/22 1505 Normal [facility] Eosinophils Auto (Bld) [#/Vo l]Ordered By: Sara Tripathi on 11-27-2022 Eosinophils (Bld) [#/Vol] 0.1 10*3/uL 0.0-0.45 [facility] Eosinophils/100 WBC Auto (Bl d)Ordered By: Sara Tripathi on 11-27-2022 Eosinophils/100 WBC (Bld) 1.1 % . [facility] Erythrocyte distribution wid th Auto (RBC) [Ratio]Ordered By: Sara Tripathi on 11-27-2022 Erythrocyte distribution width (RBC) [Ratio] 15.9 % 11.9-15.3 [facility] Ethanol [Mass/volume] in Ser um or PlasmaOrdered By: Sara Tripathi on 11-27-2022 Ethanol [Mass/Vol] 26 mg/dL [facility] Ethanol [Mass/Vol] 0.026 % [facility] Ethyl Alcohol Profileon 11-09 Ethanol [Mass/Vol] 26 mg/dL Normal [facility] Comment on above: Performed By: #### H S TROP, CMP, ETOH, CBC, TSH3 #### [facility] [address] [place] [address] [place] Percent Ethanol 0.026 % Normal [facility] Comment on above: Result Comment: PERF ORMED BY: [place] [address] PATHOLOGIST [employer] KELLIE ALVARADO M.D. Performed By: #### H S TROP, CMP, ETOH, CBC, TSH3 #### [facility] [address] Fine granular cast count in urine sediment by microscopy (number/low power field )Ordered By: Sara Tripathi on 11-27-2022 Fine Granular Casts LM.LPF (Urine sed) [#/Area] 0-1 [LPF] 0-1 [facility] Globulin Calc (S) [Mass/Vol] Ordered By: Sara Tripathi on 11-27-2022 Globulin (S) [Mass/Vol] 2.9 g/dL F [facility] Glucose [Mass/volume] in Ser um or PlasmaOrdered By: Sara Tripathi on 11-27-2022 Glucose [Mass/Vol] 82 mg/dL 70-100 [facility] Comment on above: ADA recommended refe rence rangeRandom Glucose Reference Range is dependent on time and content of last meal. Glucose of more than 200 mg/dL in a nonstressed, ambulatory subject supports the diagnosis of Diabetes Mellitus. HCG ( test) Fany dotson Ql (U)Ordered By: Sara Tripathi on 11-27-2022 HCG ( test) Ql (U) Negative [facility] HCG,Urineon 11-27-2022 Beta HCG ( test) Ql (U) Negative Normal [facility] Comment on above: Order Comment: Name Collection Type:: Clean-Voided Midstream Result Comment: PERF ORMED BY: [facility] [address] [place] [address] PATHOLOGIST [employer] KELLIE ALVARADO M.D. Performed By: #### H S TROP, CMP, ETOH, CBC, TSH3 #### [facility] [address] Hematocrit Auto (Bld) [Volum e fraction]Ordered By: Sara Tripathi on 11-27-2022 Hematocrit (Bld) [Volume fraction] 38.0 % 34.0-46.4 [facility] Hemoglobin [Mass/volume] in BloodOrdered By: Sara Tripathi on 11-27-2022 Hemoglobin (Bld) [Mass/Vol] 12.5 g/dL 11.8-15.4 [facility] Ketones Auto test strip (U) [Mass/Vol]Ordered By: Sara Tripathi on 11-27-2022 Ketones (U) [Mass/Vol] Negative Negative [facility] Leukocytes [#/volume] correc christelle for nucleated erythrocytes in Blood by Automated counOrdered By: Sara Tripathi on 11-27-2022 WBC corrected for nucl RBC Auto (Bld) [#/Vol] 6.7 10*3/uL 3.8-11.6 [facility] Lymphocytes Auto (Bld) [#/Vo l]Ordered By: Sara Tripathi on 11-27-2022 Lymphocytes (Bld) [#/Vol] 0.8 10*3/uL 1.00-4.8 [facility] Lymphocytes/100 WBC Auto (Bl d)Ordered By: Sara Tripathi on 11-27-2022 Lymphocytes/100 WBC (Bld) 11.3 % . [facility] MCH Auto (RBC) [Entitic mass ]Ordered By: Sara Tripathi on 11-27-2022 MCH (RBC) [Entitic mass] 28.8 pg 24.7-34.3 [facility] MCHC Auto (RBC) [Mass/Vol]Or dered By: Sara Tripathi on 11-27-2022 MCHC (RBC) [Mass/Vol] 33.0 g/dL 32.0-35.0 [facility] MCV Auto (RBC) [Entitic vol] Ordered By: Sara Tripathi on 11-27-2022 MCV (RBC) [Entitic vol] 87.5 fL 80-100 F [facility] Monocyte distribution width [Entitic volume] in Blood by AutomatedOrdered By: Sara Tripathi on 11-27-2022 Monocyte distribution width Auto (Bld) [Entitic vol] 17.41 % 0.00-20.00 [facility] Monocytes Auto (Bld) [#/Vol] Ordered By: Sara Tripathi on 11-27-2022 Monocytes (Bld) [#/Vol] 0.6 10*3/uL 0.0-0.8 [facility] Monocytes/100 WBC Auto (Bld) Ordered By: Sara Tripathi on 11-27-2022 Monocytes/100 WBC (Bld) 8.9 % . [facility] Neutrophils Auto (Bld) [#/Vo l]Ordered By: Sara Tripathi on 11-27-2022 Neutrophils (Bld) [#/Vol] 5.1 10*3/uL 1.8-7.7 [facility] Neutrophils/100 WBC Auto (Bl d)Ordered By: Sara Tripathi on 11-27-2022 Neutrophils/100 WBC (Bld) 75.7 % . [facility] Nitrite Test strip Ql (U)Ord ered By: Sara Tripathi on 11-27-2022 Nitrite Ql (U) Negative Negative [facility] No Panel InformationOrdered By: Sara Tripathi on 11-27-2022 Estimated GFR (CKD-EPI) > 60.0 mL/Min [facility] Creatinine Clearance (Chem 110.58 [facility] Nucleated erythrocytes [Pres ence] in Blood by Automated countOrdered By: Sara Tripathi on 11-27-2022 Nucleated RBC Auto Ql (Bld) 0.0 /100{WBC} 0-0.5 [facility] Opiates [Presence] in Urine by Screen methodOrdered By: Sara Tripathi on 11-27-2022 Opiates Screen Ql (U) Negative Negative [facility] Phencyclidine Screen Ql (U)O rdered By: aSra Tripathi on 11-27-2022 Phencyclidine Ql (U) Negative Negative [facility] Platelet mean volume Auto (B ld) [Entitic vol]Ordered By: Sara Tripathi on 11-27-2022 Platelet mean volume (Bld) [Entitic vol] 7.1 fL 6.3-10.7 [facility] Platelets Auto (Bld) [#/Vol] Ordered By: Sara Tripathi on 11-27-2022 Platelets (Bld) [#/Vol] 402 10*3/uL 150-450 [facility] Potassium [Moles/volume] in Serum or PlasmaOrdered By: Sara Tripathi on 11-27-2022 Potassium [Moles/Vol] 3.3 mmol/L 3.5-5.1 [facility] Protein Auto test strip (U) [Mass/Vol]Ordered By: Sara Tripathi on 11-27-2022 Protein (U) [Mass/Vol] Trace mg/dL Negative [facility] Protein [Mass/volume] in Ser um or PlasmaOrdered By: Sara Tripathi on 11-27-2022 Protein [Mass/Vol] 7.1 g/dL 6.4-8.9 [facility] RBC Auto (Bld) [#/Vol]Ordere d By: Sara Tripathi on 11-27-2022 RBC (Bld) [#/Vol] 4.34 10*6/uL 3.60-5.00 [facility] Serum or plasma albumin/glob ulin mass ratioOrdered By: Sara Tripathi on 11-27-2022 Albumin/Globulin [Mass ratio] 1.4 {ratio} [facility] Serum or plasma anion gap de terminationOrdered By: Sara Tripathi on 11-27-2022 Anion gap [Moles/Vol] 15.4 mmol/L 6.0-15.0 [facility] Sodium [Moles/volume] in Ser um or PlasmaOrdered By: Sara Tripathi on 11-27-2022 Sodium [Moles/Vol] 138 mmol/L 136-145 [facility] Specific gravity Auto test s trip (U) [Rel density]Ordered By: Sara Tripathi on 11-27-2022 Specific gravity (U) [Rel density] 1.023 1.001-1.030 [facility] Squamous epithelial cells de tection in urine sediment by light microscopyOrdered By: Sara Tripathi on 11-27-2022 Epithelial cells.squamous LM Ql (Urine sed) 20-30 [HPF] 0-2 [facility] Thyroid Stimulating Hormoneo n 11-27-2022 TSH Qn 2.35 m[IU]/L Normal 0.45-5.33 [facility] Comment on above: Result Comment: PERF ORMED BY: [place] [address] PATHOLOGIST [employer] KELLIE ALVARADO M.D. Performed By: #### H S TROP, CMP, ETOH, CBC, TSH3 #### [facility] [address] [place], [place] [id number] [facility] Thyrotropin [Units/volume] i n Serum or PlasmaOrdered By: Sara Tripathi on 11-27-2022 TSH Qn 2.35 m[IU]/L 0.45-5.33 [facility] Troponin I High Sensitivityo n 11-27-2022 Troponin I High Sensitivity 3.2 pg/mL Normal 0.0-15.0 [facility] Comment on above: Result Comment: PERF ORMED BY: [place] [address] PATHOLOGIST [employer] KELLIE ALVARADO M.D. Performed By: #### H S TROP, CMP, ETOH, CBC, TSH3 #### [facility] [address] [place] [address] Troponin I.cardiac [Mass/vol ume] in Serum or Plasma by Detection limit <= 0.01 ng/Ordered By: Sara Tripathi on 11-27-2022 Troponin I.cardiac DL <= 0.01 ng/mL [Mass/Vol] 3.2 pg/mL 0.0-15.0 [facility] Urea nitrogen [Mass/volume] in Serum or PlasmaOrdered By: Sara Tripathi on 11-27-2022 Urea nitrogen [Mass/Vol] 9 mg/dL 7 [facility] Urine Cultureon 11-27-2022 Bacteria identified Cx Nom (U) ORGANISM: Escherichia coli (O:ESCCOL) [place] Count >100,000 Aerobic GLENDA Charge (NMIC56) --- [...] RESISTANT TO ALL B-LACTAM DRUGS. PERFORMED BY: [place] [address] PATHOLOGIST [employer] KELLIE ALVARADO M.D. Normal [facility] Comment on above: Performed By: #### H S TROP, CMP, ETOH, CBC, TSH3 #### [facility] [address] [place] [address] [place] Urine bacteria detection by automated methodOrdered By: Sara Tripathi on 11-27-2022 Bacteria Auto Ql (U) 4+ None Seen [facility] Urine clarity by refractomet ry automatedOrdered By: Sara Tripathi on 11-27-2022 Clarity Refractometry automated (U) Turbid Clear [facility] Urine culture routineOrdered By: Sara Tripathi on 11-27-2022 Bacteria identified Cx Nom (U) Escherichia coli [facility] Urine glucose measurement by automated test strip (mass/volume)Ordered By: Sara Tripathi on 11-27-2022 Glucose Auto test strip (U) [Mass/Vol] Normal mg/dL Normal [facility] Urine hemoglobin detection b y automated test stripOrdered By: Sara Tripathi on 11-27-2022 Hemoglobin Auto test strip Ql (U) 1+ Negative [facility] Urine leukocyte esterase det ection by automated test stripOrdered By: Sara Tripathi on 11-27-2022 Leukocyte esterase Auto test strip Ql (U) 2+ Negative [facility] Urobilinogen Auto test strip (U) [Mass/Vol]Ordered By: Sara Tripathi on 11-27-2022 Urobilinogen (U) [Mass/Vol] Normal mg/dL Normal [facility] WBC Auto (Bld) [#/Vol]Ordere d By: Sara Tripathi on 11-27-2022 WBC (Bld) [#/Vol] 6.7 10*3/uL 3.8-11.6 [facility] XR chest 1V portableon 11-27 XR chest 1V portable [facility] [address] XRay Report Signed Patient: Antoinette Recio MR#: [id number] : 1995 Acct:[id number] Age/Sex: 27 / F ADM Date: 11/27/22 Loc: ER Room: Type: [facility] ER Attending Dr: Copies to: [...] Vipul Rucker M.D.11/27/2022 11:05 AM Dictation Location: [place] [address] Transcribed By: [facility] 11/27/22 1101 Dictated By: Vipul Rucker II, MD 11/27/22 1104 Signed By: 11/27/22 1105 Normal [facility] pH Auto test strip (U)Ordere d By: Sara Tripathi on 11-27-2022 pH (U) 5.0 [pH] 5.0-9.0 [facility] Alanine aminotransferase [En zymatic activity/volume] in Serum or PlasmaOrdered By: Ji Smith on 05-11-2022 ALT [Catalytic activity/Vol] 27 U/L 7-52 [facility] Albumin [Mass/volume] in Ser um or Plasma by Bromocresol green (BCG) dye binding methoOrdered By: Ji Smith on 05-11-2022 Albumin BCG dye [Mass/Vol] 4.5 g/dL 3.5-5.7 [facility] Alkaline phosphatase [Enzyma tic activity/volume] in Serum or PlasmaOrdered By: Ji Smith on 05-11-2022 ALP [Catalytic activity/Vol] 51 U/L 34-104 [facility] Aspartate aminotransferase [ Enzymatic activity/volume] in Serum or PlasmaOrdered By: Ji Smith on 05-11-2022 AST [Catalytic activity/Vol] 33 U/L 13-39 [facility] Bilirubin.total [Mass/volume ] in Serum or PlasmaOrdered By: Ji Smith on 05-11-2022 Bilirubin [Mass/Vol] 0.7 mg/dL 0.3-1.0 [facility] Calcium [Mass/volume] in Ser um or PlasmaOrdered By: Ji Smith on 05-11-2022 Calcium [Mass/Vol] 9.7 mg/dL 8.6-10.3 [facility] Carbon dioxide, total [Moles /volume] in Serum or PlasmaOrdered By: Ji Smith on 05-11-2022 CO2 [Moles/Vol] 25.8 mmol/L 21.0-31.0 [facility] Chloride [Moles/volume] in S phil or PlasmaOrdered By: Ji Smith on 05-11-2022 Chloride [Moles/Vol] 102 mmol/L 98-107 [facility] Comprehensive Metabolic Pane shaji 05-11-2022 Albumin [Mass/Vol] 4.5 g/dL Normal 3.5-5.7 [facility] Comment on above: Performed By: #### H S TROP, CMP, ETOH, CBC, TSH3 #### [facility] [address] Albumin/Globulin [Mass ratio] 1.7 {ratio} Normal [facility] Comment on above: Performed By: #### H S TROP, CMP, ETOH, CBC, TSH3 #### [address] ALP [Catalytic activity/Vol] 51 U/L Normal 34-104 [facility] Comment on above: Performed By: #### H S TROP, CMP, ETOH, CBC, TSH3 #### [address] ALT [Catalytic activity/Vol] 27 U/L Normal 7-52 [facility] Comment on above: Performed By: #### H S TROP, CMP, ETOH, CBC, TSH3 #### [address] Anion gap [Moles/Vol] 13.8 mmol/L Normal 6.0-15.0 [facility] Comment on above: Performed By: #### H S TROP, CMP, ETOH, CBC, TSH3 #### [address] AST [Catalytic activity/Vol] 33 U/L Normal 13-39 [facility] Comment on above: Performed By: #### H S TROP, CMP, ETOH, CBC, TSH3 #### [facility] [address] [place] [address] Bilirubin [Mass/Vol] 0.7 mg/dL Normal 0.3-1.0 [facility] Comment on above: Performed By: #### H S TROP, CMP, ETOH, CBC, TSH3 #### [place] [address] [place] Calcium [Mass/Vol] 9.7 mg/dL Normal 8.6-10.3 [facility] Comment on above: Performed By: #### H S TROP, CMP, ETOH, CBC, TSH3 #### [facility] [address] Chloride [Moles/Vol] 102 mmol/L Normal 98-107 [facility] Comment on above: Performed By: #### H S TROP, CMP, ETOH, CBC, TSH3 #### [facility] [address] CO2 [Moles/Vol] 25.8 mmol/L Normal 21.0-31.0 [facility] Comment on above: Performed By: #### H S TROP, CMP, ETOH, CBC, TSH3 #### [address] Creatinine [Mass/Vol] 0.68 mg/dL Normal 0.60-1.20 [facility] Comment on above: Performed By: #### H S TROP, CMP, ETOH, CBC, TSH3 #### [address] Creatinine Clr Calc Pharmacy 129.74 [facility] Comment on above: Result Comment: PERF ORMED BY: [place] [address] PATHOLOGIST [employer] KELLIE ALVARADO M.D. Performed By: #### H S TROP, CMP, ETOH, CBC, TSH3 #### [address] GFR/1.73 sq M.predicted MDRD (S/P/Bld) [Vol rate/Area] mL/min/{1.73_m2} [facility] Comment on above: Performed By: #### H S TROP, CMP, ETOH, CBC, TSH3 #### [facility] [address] Globulin (S) [Mass/Vol] 2.7 g/dL Normal [facility] Comment on above: Performed By: #### H S TROP, CMP, ETOH, CBC, TSH3 #### [facility] [address] [place] [address] [place] Glucose [Mass/Vol] 93 mg/dL Normal 70-100 [facility] Comment on above: Result Comment: [place] Glucose Reference Range is dependent on time and content of last meal. Glucose of more than 200 mg/dL in a nonstressed, ambulatory subject supports the diagnosis of Diabetes Mellitus. ADA recommended reference range Performed By: #### H S TROP, CMP, ETOH, CBC, TSH3 #### [facility] [address] Potassium [Moles/Vol] 3.6 mmol/L Normal 3.5-5.1 [facility] Comment on above: Performed By: #### H S TROP, CMP, ETOH, CBC, TSH3 #### [facility] [address] Protein [Mass/Vol] 7.2 g/dL Normal 6.4-8.9 [facility] Comment on above: Performed By: #### H S TROP, CMP, ETOH, CBC, TSH3 #### [facility] [address] [place] [address] [place] Sodium [Moles/Vol] 138 mmol/L Normal 136-145 [facility] Comment on above: Performed By: #### H S TROP, CMP, ETOH, CBC, TSH3 #### [facility] [address] [place] [address] [place] Urea nitrogen [Mass/Vol] 11 mg/dL Normal 7-25 [facility] Comment on above: Performed By: #### H S TROP, CMP, ETOH, CBC, TSH3 #### [facility] [address] [place] [address] [place] Creatinine [Mass/volume] in Serum or PlasmaOrdered By: Ji Smith on 05-11-2022 Creatinine [Mass/Vol] 0.68 mg/dL 0.60-1.20 [facility] Globulin Calc (S) [Mass/Vol] Ordered By: Ji Smith on 05-11-2022 Globulin (S) [Mass/Vol] 2.7 g/dL [facility] Glucose [Mass/volume] in Ser um or PlasmaOrdered By: Ji Smith on 05-11-2022 Glucose [Mass/Vol] 93 mg/dL 70-100 [facility] Comment on above: ADA recommended refe rence rangeRandom Glucose Reference Range is dependent on time and content of last meal. Glucose of more than 200 mg/dL in a nonstressed, ambulatory subject supports the diagnosis of Diabetes Mellitus. No Panel InformationOrdered By: Ji Smith on 05-11-2022 Estimated GFR (CKD-EPI) > 60.0 mL/Min [facility] Creatinine Clearance (Chem 129.74 [facility] Potassium [Moles/volume] in Serum or PlasmaOrdered By: Ji Smith on 05-11-2022 Potassium [Moles/Vol] 3.6 mmol/L 3.5-5.1 [facility] Protein [Mass/volume] in Ser um or PlasmaOrdered By: Ji Smith on 05-11-2022 Protein [Mass/Vol] 7.2 g/dL 6.4-8.9 [facility] Serum or plasma albumin/glob ulin mass ratioOrdered By: Ji Smith on 05-11-2022 Albumin/Globulin [Mass ratio] 1.7 {ratio} [facility] Serum or plasma anion gap de terminationOrdered By: Ji Smith on 05-11-2022 Anion gap [Moles/Vol] 13.8 mmol/L 6.0-15.0 [facility] Sodium [Moles/volume] in Ser um or PlasmaOrdered By: Ji Smith on 05-11-2022 Sodium [Moles/Vol] 138 mmol/L 136-145 [facility] Urea nitrogen [Mass/volume] in Serum or PlasmaOrdered By: Ji Smith on 05-11-2022 Urea nitrogen [Mass/Vol] 11 mg/dL 7-25 [facility] Acetaminophenon 05-09-2022 Acetaminophen [Mass/Vol] 1.1 ug/mL Low 10.0-30.0 [facility] Comment on above: Result Comment: PERF ORMED BY: [place] [address] PATHOLOGIST [employer] KELLIE ALVARADO M.D. Performed By: #### A CET, JAMIE #### [address] Acetaminophen [Mass/volume] in Serum or PlasmaOrdered By: Henry Hernandez on 05-09-2022 Acetaminophen [Mass/Vol] 1.1 ug/mL 10.0-30.0 [facility] Alanine aminotransferase [En zymatic activity/volume] in Serum or PlasmaOrdered By: Henry Hernandez on 05-09-2022 ALT [Catalytic activity/Vol] 40 U/L 7-52 [facility] Albumin [Mass/volume] in Ser um or Plasma by Bromocresol green (BCG) dye binding methoOrdered By: Henry Hernanedz on 05-09-2022 Albumin BCG dye [Mass/Vol] 5.0 g/dL 3.5-5.7 [facility] Alkaline phosphatase [Enzyma tic activity/volume] in Serum or PlasmaOrdered By: Henry Hernandez on 05-09-2022 ALP [Catalytic activity/Vol] 61 U/L 34-104 [facility] Amphetamine Screen Ql (U)Ord ered By: Henry Hernandez on 05-09-2022 Amphetamines Ql (U) Negative Negative [facility] Aspartate aminotransferase [ Enzymatic activity/volume] in Serum or PlasmaOrdered By: Henry Hernandez on 05-09-2022 AST [Catalytic activity/Vol] 71 U/L 13-39 [facility] Automated epithelial cells c ount in urine sediment (number/area)Ordered By: Henry Hernandez on 05-09-2022 Epithelial cells Auto (Urine sed) [#/Area] 0-1 [HPF] 0-2 [facility] Automated erythrocytes count in urine sediment (number/area)Ordered By: Henry Hernandez on 05-09-2022 RBC Auto (Urine sed) [#/Area] 3-4 [HPF] 0-4 [facility] Automated leukocytes count i n urine sediment (number/area)Ordered By: Henry Hernandez on 05-09-2022 WBC Auto (Urine sed) [#/Area] 0-1 [HPF] 0-4 [facility] Barbiturates [Presence] in U rine by Screen methodOrdered By: Henry Hernandez on 05-09-2022 Barbiturates Screen Ql (U) Negative Negative [facility] Basophils Auto (Bld) [#/Vol] Ordered By: Henry Hernandez on 05-09-2022 Basophils (Bld) [#/Vol] 0.1 10*3/uL 0.0-0.2 [facility] Basophils/100 WBC Auto (Bld) Ordered By: Henry Hernandez on 05-09-2022 Basophils/100 WBC (Bld) 0.9 % . F [facility] Benzodiazepines Screen Ql (U )Ordered By: Henry Hernandez on 05-09-2022 Benzodiazepines Ql (U) Negative Negative [facility] Benzoylecgonine [Presence] i n Urine by Screen methodOrdered By: Henry Hernandez on 05-09-2022 Benzoylecgonine Screen Ql (U) Negative Negative [facility] Bilirubin Test strip Ql (U)O rdered By: Henry Hernandez on 05-09-2022 Bilirubin Ql (U) Negative Negative [facility] Bilirubin.total [Mass/volume ] in Serum or PlasmaOrdered By: Henry Hernandez on 05-09-2022 Bilirubin [Mass/Vol] 0.4 mg/dL 0.3-1.0 [facility] Calcium [Mass/volume] in Ser um or PlasmaOrdered By: Henry Hernandez on 05-09-2022 Calcium [Mass/Vol] 9.4 mg/dL 8.6-10.3 [facility] Cannabinoids [Presence] in U rine by Screen methodOrdered By: Henry Hernandez on 05-09-2022 Cannabinoids Screen Ql (U) Positive Negative [facility] Comment on above: These are unconfirme d results and should not be used for legal purposes. Drug Cut-Off Concentration: AMPH 1000 ng/mL CARMELLA 200 ng/mL GERMAN 200 ng/mL COCM 300 ng/mL OP 300 ng/mL PCP 25 ng/mL THC 20 ng/mL Carbon dioxide, total [Moles /volume] in Serum or PlasmaOrdered By: Henry Hernandez on 05-09-2022 CO2 [Moles/Vol] 24.5 mmol/L 21.0-31.0 [facility] Chloride [Moles/volume] in S phil or PlasmaOrdered By: Henry Hernandez on 05-09-2022 Chloride [Moles/Vol] 102 mmol/L 98-107 [facility] Cholesterol [Mass/volume] in Serum or PlasmaOrdered By: Ji Smith on 05-09-2022 Cholesterol [Mass/Vol] 336 mg/dL 140-200 [facility] Comment on above: Chol less than 200 m g/dl low riskChol 201-239 mg/dl borderline riskChol 240 mg/dl and greater high risk Cholesterol in LDL Calc [Mas s/Vol]Ordered By: Ji Smith on 05-09-2022 Cholesterol in LDL [Mass/Vol] 133 mg/dL 0-100 [facility] Comment on above: LDL ATP III CLASSIFI CATIONLDL less than 100 mg/dL OptimalLDL 100-129 mg/dL Near or above optimalLDL 130-159 mg/dL Borderline highLDL 160-189 mg/dL HighLDL greater than 189 mg/dL Very high Cholesterol in VLDL Calc [Ma ss/Vol]Ordered By: Ji Smith on 05-09-2022 Cholesterol in VLDL [Mass/Vol] 21 mg/dL [facility] Color Auto (U)Ordered By: Valerie Hernandez on 05-09-2022 Color (U) Yellow Yellow [facility] Complete Blood Count Auto Di ffon 05-09-2022 Basophils (Bld) [#/Vol] 0.1 10*3/uL Normal 0.0-0.2 [facility] Comment on above: Result Comment: PERF ORMED BY: [facility] [address] [place] [address] PATHOLOGIST [employer] KELLIE ALVARADO M.D. Performed By: #### H S TROP, CMP, ETOH, CBC, TSH3 #### [address] Basophils/100 WBC (Bld) 0.9 % Normal . F [facility] Comment on above: Performed By: #### H S TROP, CMP, ETOH, CBC, TSH3 #### [address] Eosinophils (Bld) [#/Vol] 0.1 10*3/uL Normal 0.0-0.45 [facility] Comment on above: Performed By: #### H S TROP, CMP, ETOH, CBC, TSH3 #### [address] Eosinophils/100 WBC (Bld) 1.3 % Normal . [facility] Comment on above: Performed By: #### H S TROP, CMP, ETOH, CBC, TSH3 #### [address] Erythrocyte distribution width (RBC) [Ratio] 17.8 % High 11.9-15.3 [facility] Comment on above: Performed By: #### H S TROP, CMP, ETOH, CBC, TSH3 #### [address] Hematocrit (Bld) [Volume fraction] 40.2 % Normal 34.0-46.4 [facility] Comment on above: Performed By: #### H S TROP, CMP, ETOH, CBC, TSH3 #### [address] Hemoglobin (Bld) [Mass/Vol] 13.1 g/dL Normal 11.8-15.4 [facility] Comment on above: Performed By: #### H S TROP, CMP, ETOH, CBC, TSH3 #### [address] Lymphocytes (Bld) [#/Vol] 1.4 10*3/uL Normal 1.00-4.8 [facility] Comment on above: Performed By: #### H S TROP, CMP, ETOH, CBC, TSH3 #### [address] Lymphocytes/100 WBC (Bld) 22.7 % Normal . [facility] Comment on above: Performed By: #### H S TROP, CMP, ETOH, CBC, TSH3 #### [address] MCH (RBC) [Entitic mass] 29.4 pg Normal 24.7-34.3 [facility] Comment on above: Performed By: #### H S TROP, CMP, ETOH, CBC, TSH3 #### [address] MCV (RBC) [Entitic vol] 90.0 fL Normal 80-100 F [facility] Comment on above: Performed By: #### H S TROP, CMP, ETOH, CBC, TSH3 #### [address] Mean Corpuscular HGB Conc 32.7 g/dL Normal 32.0-35.0 [facility] Comment on above: Performed By: #### H S TROP, CMP, ETOH, CBC, TSH3 #### [address] Monocytes (Bld) [#/Vol] 0.4 10*3/uL Normal 0.0-0.8 [facility] Comment on above: Performed By: #### H S TROP, CMP, ETOH, CBC, TSH3 #### [address] Monocytes/100 WBC (Bld) 15.97 % Normal 0.00-20.00 F [facility] Comment on above: Performed By: #### H S TROP, CMP, ETOH, CBC, TSH3 #### [address] Monocytes/100 WBC (Bld) 6.5 % Normal . F [facility] Comment on above: Performed By: #### H S TROP, CMP, ETOH, CBC, TSH3 #### [address] Neutrophils (Bld) [#/Vol] 4.3 10*3/uL Normal 1.8-7.7 [facility] Comment on above: Performed By: #### H S TROP, CMP, ETOH, CBC, TSH3 #### [address] Neutrophils/100 WBC (Bld) 68.6 % Normal . [facility] Comment on above: Performed By: #### H S TROP, CMP, ETOH, CBC, TSH3 #### [address] NRBC% 0.0 /100{WBC} Normal 0-0.5 [facility] Comment on above: Performed By: #### H S TROP, CMP, ETOH, CBC, TSH3 #### [address] Platelet mean volume (Bld) [Entitic vol] 6.7 fL Normal 6.3-10.7 [facility] Comment on above: Performed By: #### H S TROP, CMP, ETOH, CBC, TSH3 #### [place] [address] [place] Platelets (Bld) [#/Vol] 330 10*3/uL Normal 150-450 [facility] Comment on above: Performed By: #### H S TROP, CMP, ETOH, CBC, TSH3 #### [place] [address] [place] RBC (Bld) [#/Vol] 4.46 10*6/uL Normal 3.60-5.00 [facility] Comment on above: Performed By: #### H S TROP, CMP, ETOH, CBC, TSH3 #### [place] [address] [place] WBC (Bld) [#/Vol] 6.3 10*3/uL Normal 3.8-11.6 [facility] Comment on above: Performed By: #### H S TROP, CMP, ETOH, CBC, TSH3 #### [address] [place] [address] [place] Comprehensive Metabolic Pane shaji 05-09-2022 Albumin [Mass/Vol] 5.0 g/dL Normal 3.5-5.7 [facility] Comment on above: Performed By: #### H S TROP, CMP, ETOH, CBC, TSH3 #### [address] Albumin/Globulin [Mass ratio] 1.8 {ratio} Normal [facility] Comment on above: Performed By: #### H S TROP, CMP, ETOH, CBC, TSH3 #### [address] ALP [Catalytic activity/Vol] 61 U/L Normal 34-104 [facility] Comment on above: Performed By: #### H S TROP, CMP, ETOH, CBC, TSH3 #### [address] ALT [Catalytic activity/Vol] 40 U/L Normal 7-52 [facility] Comment on above: Performed By: #### H S TROP, CMP, ETOH, CBC, TSH3 #### [address] Anion gap [Moles/Vol] 18.4 mmol/L High 6.0-15.0 [facility] Comment on above: Performed By: #### H S TROP, CMP, ETOH, CBC, TSH3 #### [address] AST [Catalytic activity/Vol] 71 U/L High 13-39 [facility] Comment on above: Performed By: #### H S TROP, CMP, ETOH, CBC, TSH3 #### [place] [address] [place] Bilirubin [Mass/Vol] 0.4 mg/dL Normal 0.3-1.0 [facility] Comment on above: Performed By: #### H S TROP, CMP, ETOH, CBC, TSH3 #### [address] Calcium [Mass/Vol] 9.4 mg/dL Normal 8.6-10.3 [facility] Comment on above: Performed By: #### H S TROP, CMP, ETOH, CBC, TSH3 #### [facility] [address] Chloride [Moles/Vol] 102 mmol/L Normal 98-107 [facility] Comment on above: Performed By: #### H S TROP, CMP, ETOH, CBC, TSH3 #### [facility] [address] CO2 [Moles/Vol] 24.5 mmol/L Normal 21.0-31.0 [facility] Comment on above: Performed By: #### H S TROP, CMP, ETOH, CBC, TSH3 #### [address] Creatinine [Mass/Vol] 0.76 mg/dL Normal 0.60-1.20 [facility] Comment on above: Performed By: #### H S TROP, CMP, ETOH, CBC, TSH3 #### [address] Creatinine Clr Calc Pharmacy 114.17 Normal [facility] Comment on above: Result Comment: PERF ORMED BY: [place] [address] PATHOLOGIST [employer] KELLIE ALVARADO M.D. Performed By: #### H S TROP, CMP, ETOH, CBC, TSH3 #### [address] GFR/1.73 sq M.predicted MDRD (S/P/Bld) [Vol rate/Area] mL/min/{1.73_m2} [facility] Comment on above: Performed By: #### H S TROP, CMP, ETOH, CBC, TSH3 #### [address] Globulin (S) [Mass/Vol] 2.8 g/dL Normal [facility] Comment on above: Performed By: #### H S TROP, CMP, ETOH, CBC, TSH3 #### [facility] [address] [place] [address] [place] Glucose [Mass/Vol] 85 mg/dL Normal 70-100 [facility] Comment on above: Result Comment: [facility] Glucose Reference Range is dependent on time and content of last meal. Glucose of more than 200 mg/dL in a nonstressed, ambulatory subject supports the diagnosis of Diabetes Mellitus. ADA recommended reference range Performed By: #### H S TROP, CMP, ETOH, CBC, TSH3 #### [facility] [address] Potassium [Moles/Vol] 3.9 mmol/L Normal 3.5-5.1 [facility] Comment on above: Performed By: #### H S TROP, CMP, ETOH, CBC, TSH3 #### [facility] [address] Protein [Mass/Vol] 7.8 g/dL Normal 6.4-8.9 [facility] Comment on above: Performed By: #### H S TROP, CMP, ETOH, CBC, TSH3 #### [facility] [address] [place] [address] [place] Sodium [Moles/Vol] 141 mmol/L Normal 136-145 [facility] Comment on above: Performed By: #### H S TROP, CMP, ETOH, CBC, TSH3 #### [place] [address] [place] Urea nitrogen [Mass/Vol] 11 mg/dL Normal 7-25 [facility] Comment on above: Performed By: #### H S TROP, CMP, ETOH, CBC, TSH3 #### [facility] [address] [place] [address] [place] Creatinine [Mass/volume] in Serum or PlasmaOrdered By: Henry Hernandez on 05-09-2022 Creatinine [Mass/Vol] 0.76 mg/dL 0.60-1.20 [facility] Dipstick and Microscopicon 0 05-09-2022 Appearance (U) Clear Normal Clear [facility] Comment on above: Order Comment: Name Collection Type:: Clean-Voided Midstream Performed By: #### H S TROP, CMP, ETOH, CBC, TSH3 #### [facility] [address] [place] [address] [place] Bacteria,Urine None Seen Normal None Seen [facility] Comment on above: Order Comment: Name Collection Type:: Clean-Voided Midstream Performed By: #### H S TROP, CMP, ETOH, CBC, TSH3 #### [facility] [address] [place] [address] [place] Bilirubin,Urine Negative Normal Negative [facility] Comment on above: Order Comment: Name Collection Type:: Clean-Voided Midstream Performed By: #### H S TROP, CMP, ETOH, CBC, TSH3 #### [facility] [address] [place] [address] Color (U) Yellow Normal Yellow [facility] Comment on above: Order Comment: Name Collection Type:: Clean-Voided Midstream Performed By: #### H S TROP, CMP, ETOH, CBC, TSH3 #### [facility] [address] [place] [address] [place] Glucose Ql (U) Normal Normal Normal [facility] Comment on above: Order Comment: Name Collection Type:: Clean-Voided Midstream Performed By: #### H S TROP, CMP, ETOH, CBC, TSH3 #### [facility] [address] [place] [address] [place] Ketones Ql (U) Trace High Negative [facility] Comment on above: Order Comment: Name Collection Type:: Clean-Voided Midstream Performed By: #### H S TROP, CMP, ETOH, CBC, TSH3 #### [facility] [address] [place] [address] [place] Leukocyte esterase Test strip Ql (U) 1+ High Negative [facility] Comment on above: Order Comment: Name Collection Type:: Clean-Voided Midstream Performed By: #### H S TROP, CMP, ETOH, CBC, TSH3 #### [facility] [address] [place] [address] [place] Nitrite,Urine Negative Normal Negative [facility] Comment on above: Order Comment: Name Collection Type:: Clean-Voided Midstream Performed By: #### H S TROP, CMP, ETOH, CBC, TSH3 #### [address] Occult Blood,Urine 1+ High Negative [facility] Comment on above: Order Comment: Name Collection Type:: Clean-Voided Midstream Performed By: #### H S TROP, CMP, ETOH, CBC, TSH3 #### [address] pH (U) 5.5 [pH] Normal 5.0-9.0 [facility] Comment on above: Order Comment: Name Collection Type:: Clean-Voided Midstream Performed By: #### H S TROP, CMP, ETOH, CBC, TSH3 #### [address] Protein (U) [Mass/Vol] 30 mg/dL High Negative [facility] Comment on above: Order Comment: Name Collection Type:: Clean-Voided Midstream Performed By: #### H S TROP, CMP, ETOH, CBC, TSH3 #### [address] RBC,Urine 3-4 Normal 0-4 [facility] Comment on above: Order Comment: Name Collection Type:: Clean-Voided Midstream Performed By: #### H S TROP, CMP, ETOH, CBC, TSH3 #### [address] Specificy [place],Urine 1.013 Normal 1.001-1.030 [facility] Comment on above: Order Comment: Name Collection Type:: Clean-Voided Midstream Performed By: #### H S TROP, CMP, ETOH, CBC, TSH3 #### [address] Squamous Epithelial Cell,Urine 0-1 Normal 0-2 [facility] Comment on above: Order Comment: Name Collection Type:: Clean-Voided Midstream Performed By: #### H S TROP, CMP, ETOH, CBC, TSH3 #### [address] Urobilinogen,Urine Normal Normal Normal [facility] Comment on above: Order Comment: Name Collection Type:: Clean-Voided Midstream Performed By: #### H S TROP, CMP, ETOH, CBC, TSH3 #### [address] WBC LM.HPF (Urine sed) [#/Area] 0 /[HPF] Normal 0-4 [facility] Comment on above: Order Comment: Name Collection Type:: Clean-Voided Midstream Performed By: #### H S TROP, CMP, ETOH, CBC, TSH3 #### [address] Drug Screen,Urineon 05-10-19 Amphetamine Screen,Urine Negative Normal Negative [facility] Comment on above: Performed By: #### U HCG, URDS, ADDONUAPLUS #### [address] Barbiturate Screen,Urine Negative Normal Negative [facility] Comment on above: Performed By: #### U HCG, URDS, ADDONUAPLUS #### [address] Benzodiazepines Screen,Urine Negative Normal Negative [facility] Comment on above: Performed By: #### U HCG, URDS, ADDONUAPLUS #### [address] Cannabinoid Screen,Urine Positive High Negative [facility] Comment on above: Result Comment: Thes e are unconfirmed results and should not be used for legal purposes. Drug Cut-Off Concentration: AMPH 1000 ng/mL CARMELLA 200 ng/mL GERMAN 200 ng/mL COCM 300 ng/mL OP 300 ng/mL PCP 25 ng/mL THC 20 ng/mL PERFORMED BY: [place] [address] PATHOLOGIST [employer] KELLIE ALVARADO M.D. Performed By: #### U HCG, URDS, ADDONUAPLUS #### [address] Cocaine Screen,Urine Negative Normal Negative [facility] Comment on above: Performed By: #### U HCG, URDS, ADDONUAPLUS #### [facility] [address] Opiate Screen,Urine Negative Normal Negative [facility] Comment on above: Performed By: #### U HCG, URDS, ADDONUAPLUS #### [facility] [address] Phencyclidine Screen,Urine Negative Normal Negative [facility] Comment on above: Performed By: #### U HCG, URDS, ADDONUAPLUS #### [facility] [address] ECG 12 lead ECGon 05-09-2022 ECG 12 lead ECG [facility] [place] [address] [place] [address] Electrocardiograph Report Signed Patient: Antoinette Recio MR#: [id number] : 1995 Acct:[id number] Age/Sex: 27 / F ADM Date: 05/09/22 Loc: Room: [address] [place] [address] Type: ADM IN Attending Dr: Tiana Smith [...] sinus rhythm Confirmed by Henry Hernandez DO ([id number]) on 05/09/2022 4:07:02 AM Referred By: Electronically Signed By:Henry Hernandez DO Transcribed By: MUS Signed By Henry Hernandez DO [id number] [facility] Eosinophils Auto (Bld) [#/Vo l]Ordered By: Henry Hernandez on 05-09-2022 Eosinophils (Bld) [#/Vol] 0.1 10*3/uL 0.0-0.45 [facility] Eosinophils/100 WBC Auto (Bl d)Ordered By: Henry Hernandez on 05-09-2022 Eosinophils/100 WBC (Bld) 1.3 % . [facility] Erythrocyte distribution wid th Auto (RBC) [Ratio]Ordered By: Henry Hernandez on 05-09-2022 Erythrocyte distribution width (RBC) [Ratio] 17.8 % 11.9-15.3 [facility] Ethanol [Mass/volume] in Ser um or PlasmaOrdered By: Henry Hernandez on 05-09-2022 Ethanol [Mass/Vol] 302 mg/dL [facility] Ethanol [Mass/Vol] 0.302 % [facility] Ethyl Alcohol Profileon 04-11 Ethanol [Mass/Vol] 302 mg/dL Normal [facility] Comment on above: Performed By: #### H S TROP, CMP, ETOH, CBC, TSH3 #### [facility] [address] Percent Ethanol 0.302 % Normal [facility] Comment on above: Result Comment: PERF ORMED BY: [place] [address] PATHOLOGIST [employer] KELLIE ALVARADO M.D. Performed By: #### H S TROP, CMP, ETOH, CBC, TSH3 #### [facility] [address] Globulin Calc (S) [Mass/Vol] Ordered By: Henry Hernandez on 05-09-2022 Globulin (S) [Mass/Vol] 2.8 g/dL [facility] Glucose [Mass/volume] in Ser um or PlasmaOrdered By: Henry Hernandez on 05-09-2022 Glucose [Mass/Vol] 85 mg/dL 70-100 [facility] Comment on above: ADA recommended refe rence rangeRandom Glucose Reference Range is dependent on time and content of last meal. Glucose of more than 200 mg/dL in a nonstressed, ambulatory subject supports the diagnosis of Diabetes Mellitus. HCG ( test) IA.rapi d Ql (U)Ordered By: Henry Hernandez on 05-09-2022 HCG ( test) Ql (U) Negative [facility] HCG,Urineon 05-09-2022 Beta HCG ( test) Ql (U) Negative Normal [facility] Comment on above: Order Comment: Name Collection Type:: Clean-Voided Midstream Result Comment: PERF ORMED BY: [place] [address] PATHOLOGIST [employer] KELLIE ALVARADO M.D. Performed By: #### H S TROP, CMP, ETOH, CBC, TSH3 #### [facility] [address] [place] [id number] [facility] Hematocrit Auto (Bld) [Volum e fraction]Ordered By: Henry Hernandez on 05-09-2022 Hematocrit (Bld) [Volume fraction] 40.2 % 34.0-46.4 [facility] Hemoglobin [Mass/volume] in BloodOrdered By: Henry Hernandez on 05-09-2022 Hemoglobin (Bld) [Mass/Vol] 13.1 g/dL 11.8-15.4 [facility] Ketones Auto test strip (U) [Mass/Vol]Ordered By: Henry Hernandez on 05-09-2022 Ketones (U) [Mass/Vol] Trace Negative [facility] Leukocytes [#/volume] correc christelle for nucleated erythrocytes in Blood by Automated counOrdered By: Henry Hernandez on 05-09-2022 WBC corrected for nucl RBC Auto (Bld) [#/Vol] 6.3 10*3/uL 3.8-11.6 [facility] Lipid Panelon 05-09-2022 Cholesterol [Mass/Vol] 336 mg/dL High 140-200 [facility] Comment on above: Order Comment: FASTI NG Y Comment USE FROM ER PLEASE Result Comment: Chol less than 200 mg/dl low risk Chol 201-239 mg/dl borderline risk Chol 240 mg/dl and greater high risk Performed By: #### H S TROP, CMP, ETOH, CBC, TSH3 #### [facility] [address] [place] [address] [facility] Cholesterol in HDL [Mass/Vol] 182 mg/dL High 35-85 [facility] Comment on above: Order Comment: FASTI NG Y Comment USE FROM ER PLEASE Result Comment: HDL CHOL ATP-III CLASSIFICATION Cardiovascular Risk HDL > or equal to 60 mg/dL LOW HDL < 40 mg/dL HIGH Performed By: #### H S TROP, CMP, ETOH, CBC, TSH3 #### [facility] [address] Cholesterol.total/Sarah sterol in HDL [Mass ratio] 1.8 {ratio} Normal <5.0 [facility] Comment on above: Order Comment: FRANKIE Shine Comment USE FROM ER PLEASE Performed By: #### H S TROP, CMP, ETOH, CBC, TSH3 #### [facility] [address] LDL Cholesterol,Calculated 133 mg/dL High 0-100 [facility] Comment on above: Order Comment: FRANKIE Shine Comment USE FROM ER PLEASE Result Comment: LDL ATP III CLASSIFICATION LDL less than 100 mg/dL Optimal LDL 100-129 mg/dL Near or above optimal LDL 130-159 mg/dL Borderline high LDL 160-189 mg/dL High LDL greater than 189 mg/dL Very high Performed By: #### H S TROP, CMP, ETOH, CBC, TSH3 #### [facility] [address] Triglyceride w/Reflex 107 mg/dL Normal 0-149 [facility] Comment on above: Order Comment: FRANKIE Shine [...] CMP, ETOH, CBC, TSH3 #### [facility] [address] VLDL CHOLESTEROL 21 mg/dL Normal [facility] Comment on above: Order Comment: FRANKIE Shine Comment USE FROM ER PLEASE Performed By: #### H S TROP, CMP, ETOH, CBC, TSH3 #### [facility] [address] [place] [address] [place] Lymphocytes Auto (Bld) [#/Vo l]Ordered By: Henry Hernandez on 05-09-2022 Lymphocytes (Bld) [#/Vol] 1.4 10*3/uL 1.00-4.8 [facility] Lymphocytes/100 WBC Auto (Bl d)Ordered By: Herny Hernandez on 05-09-2022 Lymphocytes/100 WBC (Bld) 22.7 % . [facility] MCH Auto (RBC) [Entitic mass ]Ordered By: Henry Hernandez on 05-09-2022 MCH (RBC) [Entitic mass] 29.4 pg 24.7-34.3 [facility] MCHC Auto (RBC) [Mass/Vol]Or dered By: Henry Hernandez on 05-09-2022 MCHC (RBC) [Mass/Vol] 32.7 g/dL 32.0-35.0 [facility] MCV Auto (RBC) [Entitic vol] Ordered By: Henry Hernandez on 05-09-2022 MCV (RBC) [Entitic vol] 90.0 fL 80-100 [facility] Monocyte distribution width [Entitic volume] in Blood by AutomatedOrdered By: Henry Hernandez on 05-09-2022 Monocyte distribution width Auto (Bld) [Entitic vol] 15.97 % 0.00-20.00 [facility] Monocytes Auto (Bld) [#/Vol] Ordered By: Henry Hernandez on 05-09-2022 Monocytes (Bld) [#/Vol] 0.4 10*3/uL 0.0-0.8 [facility] Monocytes/100 WBC Auto (Bld) Ordered By: Henry Hernandez on 05-09-2022 Monocytes/100 WBC (Bld) 6.5 % . [facility] Neutrophils Auto (Bld) [#/Vo l]Ordered By: Henry Hernandez on 05-09-2022 Neutrophils (Bld) [#/Vol] 4.3 10*3/uL 1.8-7.7 [facility] Neutrophils/100 WBC Auto (Bl d)Ordered By: Henry Hernandez on 05-09-2022 Neutrophils/100 WBC (Bld) 68.6 % . [facility] Nitrite Test strip Ql (U)Ord ered By: Henry Hernandez on 05-09-2022 Nitrite Ql (U) Negative Negative [facility] No Panel InformationOrdered By: Henry Hernandez on 05-09-2022 Estimated GFR (CKD-EPI) > 60.0 mL/Min [facility] Creatinine Clearance (Chem 114.17 [facility] Nucleated erythrocytes [Pres ence] in Blood by Automated countOrdered By: Henry Hernandez on 05-09-2022 Nucleated RBC Auto Ql (Bld) 0.0 /100{WBC} 0-0.5 [facility] Opiates [Presence] in Urine by Screen methodOrdered By: Henry Hernandez on 05-09-2022 Opiates Screen Ql (U) Negative Negative [facility] Phencyclidine Screen Ql (U)O rdered By: Henry Hernandez on 05-09-2022 Phencyclidine Ql (U) Negative Negative [facility] Platelet mean volume Auto (B ld) [Entitic vol]Ordered By: Henry Hernandez on 05-09-2022 Platelet mean volume (Bld) [Entitic vol] 6.7 fL 6.3-10.7 [facility] Platelets Auto (Bld) [#/Vol] Ordered By: Henry Hernandez on 05-09-2022 Platelets (Bld) [#/Vol] 330 10*3/uL 150-450 [facility] Potassium [Moles/volume] in Serum or PlasmaOrdered By: Henry Hernandez on 05-09-2022 Potassium [Moles/Vol] 3.9 mmol/L 3.5-5.1 [facility] Protein Auto test strip (U) [Mass/Vol]Ordered By: Henry Hernandez on 05-09-2022 Protein (U) [Mass/Vol] 30 mg/dL Negative [facility] Protein [Mass/volume] in Ser um or PlasmaOrdered By: Henry Hernandez on 05-09-2022 Protein [Mass/Vol] 7.8 g/dL 6.4-8.9 [facility] RBC Auto (Bld) [#/Vol]Ordere d By: Henry Hernandez on 05-09-2022 RBC (Bld) [#/Vol] 4.46 10*6/uL 3.60-5.00 [facility] Salicylateon 05-09-2022 Salicylate < 1.5 Low 15.0-30.0 [facility] Comment on above: Result Comment: Petty ents treated with Sulfasalazine may generate a false high result for Salicylate. Performed By: #### A CET, JAMIE #### [facility] [address] [place] [address] Salicylates [Mass/volume] in Serum or PlasmaOrdered By: Henry Hernandez on 05-09-2022 Salicylates [Mass/Vol] mg/dL 15.0-30.0 [facility] Comment on above: Patients treated wit h Sulfasalazine may generate a false high result for Salicylate. Serum or plasma albumin/glob ulin mass ratioOrdered By: Henry Hernandez on 05-09-2022 Albumin/Globulin [Mass ratio] 1.8 {ratio} [facility] Serum or plasma anion gap de terminationOrdered By: Henry Hernandez on 05-09-2022 Anion gap [Moles/Vol] 18.4 mmol/L 6.0-15.0 [facility] Serum or plasma high density lipoprotein (HDL) cholesterol measurementOrdered By: Ji Smith on 05-09-2022 Cholesterol in HDL [Mass/Vol] 182 mg/dL 35-85 [facility] Comment on above: HDL CHOL ATP-III CLA SSIFICATION Cardiovascular RiskHDL > or equal to 60 mg/dL LOWHDL < 40 mg/dL HIGH Serum or plasma total choles terol/high density lipoprotein (HDL) cholesterol mass ratOrdered By: Ji Smith on 05-09-2022 Cholesterol.total/Sarah sterol in HDL [Mass ratio] 1.8 {ratio} <5.0 [facility] Sodium [Moles/volume] in Ser um or PlasmaOrdered By: Henry Hernandez on 05-09-2022 Sodium [Moles/Vol] 141 mmol/L 136-145 [facility] Specific gravity Auto test s trip (U) [Rel density]Ordered By: Henry Hernandez on 05-09-2022 Specific gravity (U) [Rel density] 1.013 1.001-1.030 [facility] Thyroid Stim Hormone w/Rflxo n 05-09-2022 Thyroid Stim Hormone w/Rflx 0.80 u[iU]/mL Normal 0.45-5.33 [facility] Comment on above: Order Comment: FRANKIE SOTO Y Comment USE FROM ER PLEASE Performed By: #### H S TROP, CMP, ETOH, CBC, TSH3 #### [facility] [address] Thyrotropin [Units/volume] i n Serum or PlasmaOrdered By: Ji Smith on 05-09-2022 TSH Qn 0.80 m[IU]/L 0.45-5.33 [facility] Triglyceride [Mass/volume] i n Serum or PlasmaOrdered By: Ji Smith on 05-09-2022 Triglyceride [Mass/Vol] 107 mg/dL 0-149 [facility] Comment on above: TRIG ATP III CLASSIF ICATIONTRIG less than 150 mg/dL NormalTRIG 150-199 mg/dL Borderline highTRIG 200-500 mg/dL High TRIG greater than 500 mg/dL Very highStandard traceable to the Center for Disease Conrtrol and Prevention (CDC) test method. Urea nitrogen [Mass/volume] in Serum or PlasmaOrdered By: Henry Hernandez on 05-09-2022 Urea nitrogen [Mass/Vol] 11 mg/dL 7-25 [facility] Urine bacteria detection by automated methodOrdered By: Henry Hernandez on 05-09-2022 Bacteria Auto Ql (U) None seen None Seen [facility] Urine clarity by refractomet ry automatedOrdered By: Henry Hernandez on 05-09-2022 Clarity Refractometry automated (U) Clear Clear [facility] Urine glucose measurement by automated test strip (mass/volume)Ordered By: Henry Hernandez on 05-09-2022 Glucose Auto test strip (U) [Mass/Vol] Normal mg/dL Normal [facility] Urine hemoglobin detection b y automated test stripOrdered By: Henry Hernandez on 05-09-2022 Hemoglobin Auto test strip Ql (U) 1+ Negative [facility] Urine leukocyte esterase det ection by automated test stripOrdered By: Henry Hernandez on 05-09-2022 Leukocyte esterase Auto test strip Ql (U) 1+ Negative [facility] Urobilinogen Auto test strip (U) [Mass/Vol]Ordered By: Henry Hernandez on 05-09-2022 Urobilinogen (U) [Mass/Vol] Normal mg/dL Normal [facility] Vitamin D 25 Hydroxy Totalon 05-09-2022 Vitamin D 25 Hydroxy Total 36.0 ng/mL Normal 30-100 [facility] Comment on above: Order Comment: FRANKIE Shine Comment USE FROM ER PLEASE Result Comment: JESSICA MIN D STATUS 25(OH)VITAMIN D RANGE (ng/mL) Deficient <20 Insufficient 20 to <30 Sufficient 30 to 100 Reference: Aye Palacios, Geremias YOUNG, et al. Evaluation,treatment, and prevention of vitamin D deficiency; an Endocrine Society clinical practice guideline. JCEM. 2010; 96(7):1911-30. PERFORMED BY: [place] [address] PATHOLOGIST [employer] KELLIE ALVARADO M.D. Performed By: #### H S TROP, CMP, ETOH, CBC, TSH3 #### [address] Vitamin D+Metabolites [Mass/ volume] in Serum or PlasmaOrdered By: Ji Smith on 05-09-2022 Vitamin D+Metabolites [Mass/Vol] 36.0 ng/mL 30-100 [facility] Comment on above: VITAMIN D STATUS 25( [place])VITAMIN D RANGE (ng/mL) Deficient <20 Insufficient 20 to <30Sufficient 30 to 100Reference: Aye Palacios, Geremias YOUNG, et al. Evaluation,treatment, and prevention of vitamin D deficiency; an Endocrine Society clinical practice guideline. JCEM. 2010; 96(7):1911-30. WBC Auto (Bld) [#/Vol]Ordere d By: Henry Hernandez on 05-09-2022 WBC (Bld) [#/Vol] 6.3 10*3/uL 3.8-11.6 [facility] pH Auto test strip (U)Ordere d By: Henry Hernandez on 05-09-2022 pH (U) 5.5 [pH] 5.0-9.0 [facility] Office Visiton 12-19-2021 Follow-up visit [id number] Antoinette Recio 1995 F Date Provider Department Center 12/19/2021 81210-EPAYQUMULORIN ANTOINE [facility] None No family history on file Level of Service:60607 [place] OFFICE/OUTPT VISIT,PROCEDURE ONLY Reason for Visit and Comments: Rash [[id number]] - Itchy - painful started yesterday - Normal [facility] Progress Noteon 12-19-2021 Progress Note [facility] [address] Dept: [phone] Dept Loc: [phone] Subjective Antoinette Recio is a 26 y.o. [...] occasionally words aremis-transcribed.) Lorin Tenorio APRN - [place] [place] 12/19/21 Normal [facility] CT HEAD WO CONon 03-18-2021 [...] herniation. No intraparenchymal or extra-axial hemorrhage. Normal whtilock/white differentiation. VENTRICLES/EXTRA-AXIAL SPACES: Normal for age. SINUSES/MASTOIDS: No paranasal sinus disease. Mastoid air cells are clear. MSK: No skull fractures. OTHER: No hyperdense intraluminal thrombus is seen. IMPRESSION: 1. No acute intracranial abnormality. No hemorrhage or mass effect. This study cannot exclude the presence of a concussion type injury. Electronically authenticated by: ATIYA GREWAL Date: 2021-03-17 22:52 Normal [facility] Operative Reporton Operative Report Date of Surgery: 06/14/2020 SURGEON: Jordan Bhakta D.O. TRACK LINER OPERATOR: TOÑO Chowdary CNOR PREOPERATIVE DIAGNOSIS: Displaced midshaft [...] Clean Jordan Bhakta D.O. gls Dictated: 06/14/2020 #[id number] Typed: 06/15/2020 #[id number] cc: Jordan Bhakta D.O. [facility] Comment on above: Result Comment: Elec tronically Signed By: Jordan Bhakta DO\.br\Date and Time Signed: 07/16/20 20:57 EDT Coding Summary.on 06-25-2020 Coding Summary. CD:[id number] Gh 0bWw+PGhlYWQ+NC7GXRIqB 25xiEHwhG3GH7fUXS0RCEX CLTCJRF5LGI4paDO9GBcdJ 2VybiAv SdtguVRjHU41VJp1PSZ7hI exYUyjyQ7xiJMgY9c0OyFy BR35kJ98WLzgNWTrWdC8Gi ZpbjsgbWFy Y2shGzXrwBCtOsd+PHRhYm xlIHdpZHRoPScxMDAlJyBz nMkmFV5cYs3mOCMyPFEliH xhcHNlOiBj o1zcZDHgGEthWB8hvVhkV1 JgjUE7QKImh8l2Xw17bOY+ MGDwSCU6gLacMMhhd807Jj Ppj6kfNHR1 iORxMUnvEJF1B72tu4Z2ER WvOLDfZQS2yDJ2pD6wrPgo jtrfY2EybJBfNaA9FOG7bF EgwP7mhJrd qjmmwR2hPkr+W95ECZ2DAS AQDV4YWsi1M8HdYeaopSI+ IK28TENcNG59jVQuqORnf0 avtHh0OmXu GUBrCDM2dQtfGCcrt2JpHD DyM54dvUDgq4W9IWCdzOxz nGWdQqEhfPJ6pU0yVFsvqz tlq7cnvcjx Qwsfp7pftr71mA74X20bAX jpKKVeYNR9KCFiFCXnwNii ai9nzH7jSf2+PQehi1ewn0 huvYd7PnSg WFVhagDxdEzcOMA9y9ScDr 11J5FeyHmyl6GjOhj6zl19 sODcz9Q7pUA2UCrvNHRwqT 2jFKdeVeK3 DAMaZkFcgW78fNKeAPzqXj 6npQpmiDvyVQ4yKJWirocz YKMdcJ2wYHOnrIOvwOmfMG 4wNTBpbjtm e552NnKtAQC3FAAqbYOfA9 AekK7oQjTgPZYiJSUzZ0Wv mNPmGLcqQ242OVlqGkY2FO ZkcyGcB9Vp JRBfbEvbAdO9k6H4Tc3Uc5 JoomkuNKO8WAdySGW7KyZ2 KuQoQjJ5S1HbUlp2NWDqfC ixPY0dI8Jd ZBRyieusjrmfkGO2OPYkAS KrvI65aVDjFEikFv0vm6R9 d978HLYtNHAuoH71Xn7mrG ogMTBwdCBU fC7uvldga8jmeblqFtDlXV RiIMj1KIp6EJWlxNepTmFz UIS3YkD4VDM0gRIpiC3niR vzaxnqhC0j Oyc+I74ceE4fCWQ0DSG2gv pfPKIxarRzJF01CK01M4Xf PjwvdGFibGU+PGRpdiBzdH pzSV2xCjUf w1bbw7BiTYgvE5PoURQuUD owChy4DVAlMEX8eJH2wF4p FGWrGBzoo4G7kKS1B1Nxah Jxvp2wt2oh GGOgRRxdM34jzSHqx4L0MV VelFW5EIXouXpzReUphL36 Oyc+ZBNzlZuym0BmGnotz8 bsu6zouGy2 KoQlJNRvbxVbtKbbUMX8c9 JlMq79N43uLKpqZHUbVVRu FNFjMQBwyZcjqm0kkX0sGa 8+PGNvbCB3 wTV5sX9lHWKeSlM3DAedN6 24GoGwbGLcZlnyk6zlc2qj oVp7LnVdQJYfpwNgvXtlVP K4a1EkCv63 Q85rKXobVNZcAEGyGVLxPR EwjAiwia3krP1uGg3+PC9j b0hnwi34tT40xIR+PHRkIH T9bNppZBnr VXXrzF8lZXuqQcZ9NWJfKk UxdO63kZWaFNwnRc1ylBhl kNogIJ4aYROexlcwm746Yf Bwi7suZKYl sOFrBWsvVWX7R32jl3X4UM RsKSEyPCK2eMF6zH3ieDpk bjogbGVmdDsgdmVydGljYW akUHcnW247 IHRvcDsnPlBhdGllbnQgTm LiJDk6R7TiSsz3GPPoyDze NQ3kuSWfSWrhSz2htJtkrQ ckNM1cCFQd jtvra628EkIed2bjDWPrdJ EhIRkmYQR2D06vn4Z9SZVk YYYoOIJ6fHD0lL3qfRlmvd ogbGVmdDsg zfBvaJlnYExsKOruS497BN RvcDsnPkJpcnRoIERhdGU6 NZ07UN11tANit8Z0eZN3X2 BhZGRpbmct fqlyvFE0KLNmGHTaeJ92St 2icLmdZf1gMIDcDLW8TRBx yPIwO0PtfG0dHzOmFIEcUP PgS5GybJFk YQfhW677GUsaYxT1HVVjgv XgU3VwDOXgsQyyUaH8j7A2 Mz5TH1L4TE09EZ35hXNpc3 O1sWD4X3Ig QPCdbtnbpwpvuOU1NADhKB NsoD62Tu2irBngPz6wYANy QJW1FZVmcPNfD9VbwX7lPw AjMDAwMDAw B2GebWPyCPpfU778VYfhFa G7CLMvxqZpF4TiLKXcnHki KqV6x9X9Zp1MZCd4YZ26SR 19yWGpy7C1 bOT5F7YhJRQpqjpsbyawyI T4PKZpZRLjwT47Ri2wrInn Dx5wTKBnNCY4ASNnoQUgC0 WuoG7dXoEh RKFbIXXhD6WzzLFjQYvvP1 13UGepAvI8UMTceqFwK7Uu WUIupIdgLlR4c4F2Ud0AQC ScVS72AFQ7 fSH0GC08DX05W2HdDurvuU FibGU+PHRhYmxlIHdpZHRo FGjhGZKcDiRqpVnvVW9rHb 9yZGVyLWNv mStdfEClGtRxx6jqWOUsXD ruWP4gaOpyT7CukMR9EAXm l5d3Si93N41bI5NnwQG+PG FpePL5mEY2 aR2oLtItIjD2FHhqG155Er EykQKhJumwq4efc5pcyFl4 AnG5KZWksfKklQyuKJP9p3 HbSq44W03z IHdpZHRoPSIxNSUiIHZhbG dlcu3jcS2nPk1+PGNvbCB3 aYM7bY7bJgEnUlP2NYzuB4 49InRvcCIv Cqiaf5rnx8dlnPa2NwGyEX RndqXqjAguKDZ5h5RpPq57 L0VgtFfwm6AjAhv8wg91hW Qkb3P3gUV5 Z2WtCQBazrpaqEWsoQhoLX 0bJRPcdnlqKMWumS2tHZDi Y4e1AeXnBmX5WVsmF4Gxtv B7FHMfiQZt VQpzCRL0C59xo5U8WXLjOI DtPXS8oGP3rN3jmBwlvbua bGVmdDsgdmVydGljYWwtYW ykE630CMPp rIbbJDNszP9nTFRvdGOrzT owRT8xHKAtbbkmHrHQZnMY VEvcNA9JKtZKDEQxOnnevG Q+PHRkIHN0 iPonBStaREExgV3lXGRpL3 j6EtZqOkY7NNdlD9DlOBAt vveoFf96wZ8eReSfPzE4FF mcL9SlncO3 OCWtyBZwPNidGGO5V92eu6 N4ZWOpFUVqWDJ7dDL5hB2s bGlnbjogbGVmdDsgdmVydG ljYWwtYWxp K299QUUlwEtnSzDsIhBlLp K5JQU3N6VsFex4QOMvoCpp FM5piGZwEFogTc8ewJtqsW ajKV4aLJKb lwnlKPQxbJ4nPAKoaYYwuK zdIR9uBSIranlms944FoBp FTD0PMUpcUSfP6CliJ7fJb AjMDAwMDAw Z3DjgLWaWVnsS003KUqgCx H4NUZptbMmT0QdYLXrsDhh NaT5a2T7Gw7kZGYPIXLdci wvdGQ+PHRk YKB3qPbdHIdeWLDwtA2tYX ApX9i0NsQyXtV4KRfnH5Ok TCTenmdqKp50wS6gSuApDm C0PLldK0Ok hjR2ANJslBQcYSarALZ9G8 9as6K1IEWmZDUzWEO6vNT3 xW6cbQzwdxxptQEjzPsfnc VydGljYWwt SGrjE840DHAlqBulIaCsfK FsZTwvdGQ+YLExYKS8qNrv SCjfFLKjqF4cRXChR8g1Gp WeFlI3OQcm Q5ZbZEVhtrcaTu62uH3nNf PgTcP4WLyhV1VzvkM1WSZs bKDpYYndXIG7D92gh3Y9QE MwMDAwMDA7 tQY9lS6tkWkkssrnbITrvT xqwoVzxLhgONnwXWkgE467 IHRvcDsnPkFtYnVsYXRvcn ssG1UhHXYN DPttE5HjD1GkuJfyyPA+PC 67ut66F1XbYbmqIvn9FJTf AMG2aTW5bG7sRMGgDMtyv2 D2cSA3L8Pd ujAeda2qh1oqTGZyZTvdQ2 9xfLTpm2Y3CPIphDZ6IKLn zUhxUvObeT70Pft+PGNvbG ztv2CdIytt w4syq1eckIf8QmSoBCRoqa LynVrePLP3b3XqOb40G78i IHdpZHRoPSIzMCUiIHZhbG afmp5dwX0i Ii8+RVOlrUL4bUW7kO4aOb FmXyN7TZugB290CnIzrWWv Cmmay7ooi4moyCg5JwPhBI IgdmFsaWdu AEX9j3UbUe88B3FayZvuj6 FiNds0ro66gYTuu4M2uHT6 Z8RjHPNqcrxanJWfrOqaHC 4yMDBpbjtw FQSlhB4yCYAvQ4x9DuTqCa B9VIeuM0QdmhS0UALkiRSk KFTscJHFqG1rsxjij8oepc ogIzAwMDAw QTj2TAf0YXBysYqkEbQqBX X0SeF1CYC4lSLkuH6ilMxg uegcfZ6oLhs+JYl2p3ktwX PnLW0qpMJ0 MN86QO99pYOcw4J7pDF9B5 ZkKTJshtfsntzmuMP0PREc HJTerN65Hb1isGkpZg5qIG SaFQN2QHJg xSLyB7VhfM5hQwLsWBIoWW SsX6CwjXPfVErjK036APed FgJ4JNXfopVuZ3LbWEXbbN zfVaK5b9J7 As2OFQ12KQ14OP00nTZux3 N9qFX7N4VlUZMeviyvgalf dMV0TWAqLBHggD52Ds3dhR ixDe9iUFNd GAR4HSLuuYEzS7DnkF4dIg UnLSThSCVtP2WubHNbSTfr I561YYziDiX1WLXkfbTkK5 FsLWFsaWdu XsK7n7I1Jp6IRl39GX46KH 13aYOrw5X2fDP5H6ViSNYr gnulncrodRA3BSUfBPEdqV 61Lx3jtBfk Ae2nQIHwAZG9TJMkwCYyD3 XhhG4bYgOrYNUzNMGjJ0Iq rSObQNpnQ059NCijJbO5UO DyoeHaG9Rv OAUlnPrqEzQ7n7L9Fo0KWS lyyyn0R6QyUudegOE+PC90 BAMwNY85yMPfvGNhr7anzW m0WmMsHKOh IHN0 (more content not included)... Normal [facility] Coding Summary.on 06-24-2020 Coding Summary. CD:[id number] Gh 0bWw+PGhlYWQ+MI2LHXDsW 17svVLweM2UT4fPQB4PTZE NBRGEDB8YBG1qrHV1PTkbS 2VybiAv ZtjawIOiOW02FSk0OVS1yY apJLuqeW2abBXoY4y5YoKr SS90eE26VSjuVXQkQoK2Lq ZpbjsgbWFy R6koIlSefHPbBqr+PHRhYm xlIHdpZHRoPScxMDAlJyBz fBnbMA3tOb2xKDStSDMotE xhcHNlOiBj t5brNKSzNOpxBW3cvWyuN3 JahFN0BBSui9j2Qg09dKU+ JADjUDF7aVfbUNhve493Vq Gkn8muWBG5 nWQyOPphLJR9W85lr9O6EK OlRPRsBLL7gPQ3iM3vrVjp oovkU6RtkUEgTlR1JFS2nP RoxQ7yaDel pisaqG9bQyl+C71LOI3ZDT QWTX6TJjw5Y1ZzXeucqVZ+ HC47BFWeGJ16aIKtuNZzs8 vnfJu3RxTx PWUmGCS2zQumXBzzv4BjLA SxR09ueXGpp2Y3NFAynRsp wXWvAnBpkSQ9kS0lVAunfi qmc8edxufs Yawdr6npux18bE10V11gIV ppIZVdOFS6ONFuWBJyqJoi wa0voM0gOt0+ZMpxj9jcs7 cxfMw9JrBl BLQnnxShzGgtXCL4k0CkWm 73H0XyqRfig5FfInt2bd58 kUUjp7J3gGL0JGodADLcsB 0hTYysRnW5 IPTdFlEnmV74aFZbWAugMf 7auWwufGcaUL7pMGFgyfdd BTLgfY1oGXWndQIhyTtqLT 4wNTBpbjtm b287DwYbYDV3QGAngTMpP8 ZsuQ1aSfPzTMSsCJNuW2Jl aLUuHJeoO922NLmlKwE9DS JpvcTrR9Mq TOAoePnySxJ7v9N7Wb2Ee5 YgxysaXLD0ROrdWVA7VyC3 TeVoAgS7B1VoIsf4QXXlfV ybPI4nY0Wq WKWixvutncvfsUW5HSSnVD SsvQ21cWCdFLpvFd8yx0M6 g264OUNfOKJigP54Tt8evJ ogMTBwdCBU tF0pzhonj1brteufPxTiQT DsWXn5FMp5ZHMvnXokKpHq ENR2ZjH5FVA8nYJqkL1eiV cjcqblmK8v Oyc+Y95ouZ3dUEE7VTD4aa wiVANmkaGiAY31NH35X1Ga PjwvdGFibGU+PGRpdiBzdH gcJN4yEtYd y7cft5EnTWqfR6SdRNTtWC rfRev2OIOcWWJ2kHA6xP5u PWCbMKiol9C6kVQ2Q8Ihqh Hcaw9hm3gg EZUdAZogL31cgVKpy5P8KP GdmEM0RNFpsGqiXdFkfH45 Oyc+JBMobExgq3XjAkntc6 pdo9kftKx4 KvCjRDRakyJppWevWBW4c2 StSj18B57rJZnmXETnANHf FGRsBNQhoNmuts7sgM2sNt 8+PGNvbCB3 rOG5jV2zQMOaSsD5AXieV6 73NcCdbUCjSlpjz2rhp4ip bKx8YgCdSVXqskUxcCowCB M7j6ArBo09 F80oPXprOCExMAJuMUBwHT PnnIxkio2nkW5gGy4+PC9j r9sbvi77sI79wMC+PHRkIH I0pJgnIZqz SWOjqY4lXGmaNiU9YSIxQc HjcP29jNFzOJqfZe5wvXuo xKsvED5dTQBgtgqpo836Jh Uqp8gdLLEt mBSzAYylSJD5L20jn1W7JR DxVIQjHWY2aNL4sN7esIsh bjogbGVmdDsgdmVydGljYW zkQMajT810 IHRvcDsnPlBhdGllbnQgTm WkSKp9Y2AzCpt5AOOkzNzv VZ1xmFQuBQcyTw7uxJcauJ rbRM9cHEBj jkecz605MeYue6kvJHTeoK PbFIrdDGK3O86nu0T7NZHn AVIzCXE2hRC1cX9xjKoxjc ogbGVmdDsg ywIknXsfYQqxHAwhR828OK RvcDsnPkJpcnRoIERhdGU6 KB68HG76uUPkp7J7qTE4D5 BhZGRpbmct ompuwNB0ULAcNDSgaP58Uv 4muJeuBo5vFFIbGYO6VOYs zWIpA4MuoC1pElIpVVJvWM ZwK0VdhTHj UUroQ542JBgqOvK7HUOvmj FdT4RmPMJddHtsIgW5g8H0 Ng6IZ6X9JS09CX21tQGxh3 Q1kQU3I9Wc PFTdgqpjcnwudVI0GELsCT KxzP67Za1tpMyhZw5hCLZp UCE8VLHitSQlP8BqqM1fIq AjMDAwMDAw C9VxhYWqEBtgR221XUygVn A7UWPgmpMsL4DbEMMbpCep AwL5u7U4Da5CUGa6CR08PT 93hPUzt2L5 yVR4N8YpQINapfarxlgqqP D0HRAvBERtsA41Tj6qmGtg Ca6tETYqFPM2PFMfvYHoH4 XccJ2kMcEh WMDuALCzZ8YtjTUuSVpnU7 75NEjsTjJ8BZZmasYvY1Fj DIDenAscHsZ8o9Z5Sh7GUP WwWA44CQE3 rFG0FO49KX21X6GgGjffjK FibGU+PHRhYmxlIHdpZHRo FTbjDQSfKvUgtGtwRI6tBq 9yZGVyLWNv fPcwgBAgBvJwd8jeRMMvVD xxMM2jnVjuS5VbwTQ7UNUy m5h2Jc19H31bL4TugHL+PG QjqUG3kAN1 wT5tQmKdBmI9IRjcM264Zp DgaTQiThvpo0mxz0iwxSy2 HqV9JJDjruQbtSzuSTL4f2 PoZr48W37s IHdpZHRoPSIxNSUiIHZhbG ajhg9goV4nMv0+PGNvbCB3 fWN0nE0pIvEiBtA6CUegQ0 49InRvcCIv Zyiof9qco4crkAu0HxVnBA CgahJufOewQYA6t1OxIt02 G1DqlMvjt1GzUdf6fe73kD Zcf1V9vDV4 M2ZhKOBosanqoAWwiVcpFB 8gEUItwyhhQTXetL6aBSUs C0h0UyFuOvR0JZniA3Epil R8EVBpnNLj YGblHLS1T87zv8I1CRTsUO PoSBI3xJD1nK1zbQagsqhi bGVmdDsgdmVydGljYWwtYW kiV749VDOk lUpjMUZwlG6jCWGorJLgoD bpMF0qJLKsvyrnCbOJFrKO OBjoAD4QSzYWQFZnOzakyX Q+PHRkIHN0 vGqkCTndYVBkgC7cRRMpT9 x4WzPmWcE4LUlhK4SuWTKr ddbcYd30gZ2jNxSnYoC5DO uwB2SddyT6 UTQliRZgOOsdXKV6I49dz3 B7TONfJPJjSJV9aQO7wX4z bGlnbjogbGVmdDsgdmVydG ljYWwtYWxp Z639BBLfqCzuHaLsStTqXx S2ITP7F1KoSpv2JTMvkTml FV5meGPoHMznQt7tlCsucA puCS0pJTWy ikfnOYZqkU5tXASyrKNdiT exVN8oAZVyctmmp386GeHx VGA8AQCepURsA9HkeZ2xGz AjMDAwMDAw F0IicDJkINfhK421UBczWo Z9NDHzwdFiH9ZkMEJuhSam UdW9e4H4Vm2jQYZPMHQxgj wvdGQ+PHRk WVB3jXdbIIcdMRFndS8dFV QkH6h6NwQqTlV4ITycU4Up USHyoripGn66oN6kEvXaSp O7SNzuT4Al gwW5TIDtfRTgKCbnOAO0K5 8of1F8KXZrXPElJIF8aNW9 aT7awDiykjgtoGGrjGzycu VydGljYWwt JBufG099LDNcqXcbBxHvmP FsZTwvdGQ+IAJyMRS1gCtz UVkxHYZkkT1nTZKzP0w9Tv NlIdV1NFlh A2VdQIWzptywLr76nI9fCr ZcBoP3NDaiN6HhrkL9FGPj wAByDLwqENQ1X42sa6H1EL MwMDAwMDA7 kVB3zG1cgEcllduvuBUseP vqziUghXvgLKppXTtoI738 AITstZbtKb13wMLdxHjeib P1E1AyPsxi dHI+DJ58ATQzSD77xQPkfS Gfg1wxtMj2JzDmQCEfRQI5 gRmfOXwuw9RqQLApT37leJ Yob0F7KGKj eRmpcBNvIcNnzBR8yM9oCI rkgqjlo1fjaduwSahjn0zf rs61vR05A24oAKwsDWIfBH IzMCUiIHZh vMzdba0kzG6eIt6+PGNvbC S8vQC4mS3jKgZwTtA1VVcy N668DaRcrKZdNgbbz0ukf5 oyfDx2DuRg CWQlfqMnnMfiQUG8h6AdIr 18F36pPJdxSZWwCYPiZJCz BCWtwIeepp2zkB0iEn1+PC 5lk0lapm56 qU77lRS+NTFeKIV4gPalSX kdEHFdlP1qQGhhOeP3BQIo HtQldY11wWIuEEhwVd6ywB jxkDqbXT4j LQDqpsqes582QaTug6unPN JkuZErSFnkCMD0A92fq2W0 OCShIGGzIFC5eRF0hU8enS lnbjogbGVm dDsgdmVydGljYWwtYWxpZ2 22HVVuxErhLbEbfXJfF9dx pkJWKF9xQmferFU+PHRkIH J2iXwuOJrt AFBfrU9rLAWlH5r2WwSgSp D4VErjJ0WgfuA5PJHkoRCt PSLpkHVCeK5bbhfte4fggm ogIzAwMDAw YBk3VFs3LTKjvSnsRuIfXS N8XnJ9LUD9wZVdnS6taYhq scgxtB2aIms+RklOOjwvdG Q+PHRkIHN0 yBomJKajUXQooU7xHYEgX1 y3RhIkVyL6ERyeJ3QlysA0 TUAojVLyOPOvkTCAhI1zzg twc2txfutd XbFiXKAaBFp6KAv8JARagZ wdGjAtGIQ9CeV0FEH0pOPt rE5edHujvuvgqM5oRpj+TV JOOjwvdGQ+ FPNtNRA6fYuiVZsiVULwjZ 5fCJOkH8m1McYxVhU8MOce N0SdozX2ERBdjTLmJLRieP XCbK2xjiyk v9nlagrtVlZuWAZhPIn7KS a6SFOqtJoaXiZvMWL8CvV5 IMX1yUHusY9nxBpqopszpI 9wOyc+UGF5 ADE7IM06UL01A0GlTbysqE FibGU+PHRhYmxlIHdpZHRo UDsnXYHvRgCwzDrkZM3gHx 9yZGVyLWNv bGxh (more content not included)... Normal [facility] IntraOperative Documentson 0 06-22-2020 IntraOperative Documents [id number]#1. 00CD:127 Normal [facility] Main OR Intraoperative Recor don 06-20-2020 Main OR Intraoperative Record IntraOp Document Type FT Summary Primary Physician: Jordan Bhakta DO Finalized Date/Time: 06/20/20 12:56:01 Pt. Name: ALESIA RECIOANDA Azalea Ramirez/Sex: 1995 Female Med Rec #: [id number] Physician: Jordan Bhakta DO Financial #: [id number] Pt. Type: A Room/Bed: [place] [address] Admit/Disch: 06/14/20 15:28:52 - 06/14/20 21:05:00 Institution: [...] Role Performed Anesthesiologist of Surgeon - Primary PORCELAIN TECHNICIAN Record Time In 06/14/20 17:11:00 06/14/20 17:11:00 06/14/20 17:11:00 Time Out 06/14/20 19:10:00 06/14/20 19:10:00 06/14/20 19:10:00 Procedure CLAVICULAR FRACTURE CLAVICULAR FRACTURE CLAVICULAR FRACTURE ORIF(Left) ORIF(Left) ORIF(Left) Comments [facility] - [facility] STUDENT - SCRUBBED IN Last Modified By: Shreya RN, Alycia Cash RN, Alycia Yin RN 06/14/20 19:14:30 06/14/20 19:14:30 06/14/20 19:14:30 Entry 4 Entry 5 Entry 6 Case Attendee Julian SARGENT, Jhonny Cash RN, Isabella Johnson Role Performed Scrub - Primary Trauma Doctor - Primary Quantitative Analyst Time In 06/14/20 17:11:00 06/14/20 17:11:00 06/14/20 [...] and sympto (more content not included)... Normal [facility] Operative Reporton Operative Report Date of Surgery: [...] Godfrey Graves Jr., D.O. gls Dictated: 06/14/2020 #[id number] Typed: 06/15/2020 #[id number] cc: Godfrey Graves Jr., D.O. [facility] Comment on above: Result Comment: Elec tronically Signed By: Godfrey Graves JR, DO\.br\Date and Time Signed: 06/18/20 09:48 EDT Postoperative Documentson Postoperative Documents [id number]#1. 00CD:127 [facility] Progress Note-Physicianon Progress Note-Physician Patient: ANTOINETTE RECIO [...] constipation, # 20 cap(s), Refills(s) 0, Pharm[facility]: [facility], 165.1, cm, 06/14/20 15:51:00 EDT, Height/Length [...] food, # 60 tab(s), Refills(s) 0, Pharmacy: [facility], 165.1, cm, 06/14/20 15:51:00 EDT, Height/Length Dosing, 74.6, kg, 06/14/20 15:51:00 EDT, Weight Dosing Problem list: All Problems Clavicle fracture / SNOMED CT 65468188 / Confirmed left Physical Examination Intake and Output Denies significant n/v and is tolerating p.o. No qualifying data available Respiratory: Adequate air exchange with latter day of preoperative function.. Cardiovascular: Cardiovascular function is stable and has returned to preoperative levels.. Neurologic: Pt has returned to preoperative baseline.. Review / Management Condition: Stable. Assessment Anesthetic outcome No anesthetic complications noted. Plan Transfer/ Discharge: Patient can be discharged from PACU when criteria met. Condition good. Normal [facility] Comment on above: Result Comment: Elec tronically [...] data available Respiratory: Adequate air exchange with latter day of preoperative function.. Cardiovascular: Cardiovascular function is stable and has returned to preoperative levels.. Neurologic: Pt has returned to preoperative baseline.. Review / Management Condition: Stable. Assessment Anesthetic outcome No anesthetic complications noted. Plan Transfer/ Discharge: Patient can be discharged from PACU when criteria met. Condition good. Normal [facility] Comment on above: Result Comment: Elec tronically Signed By: Godfrey Graves JR, DO XR Clavicle Lefton XR Clavicle Left Exam Date/Time: 06/14/2020 20:16 EDT Reason for Exam: Fracture Report IMPRESSION: STATUS POST ORIF FRACTURE LEFT CLAVICLE. CLINICAL HISTORY: Fracture. COMMENT: 2 limited [id number] C-arm images were obtained in the OR. [...] Dose: Gener in mGy = 3.7 Normal [facility] Consent for Anesthesiaon Consent for Anesthesia [id number]#1. 00CD:127 Normal [facility] Discharge Instructionson Discharge Instructions [id number]#1. 00CD:127 Normal [facility] IntraOperative Documentson 0 06-15-2020 IntraOperative Documents [id number]#1. 00CD:127 Normal [facility] IntraOperative Documents [id number]#1. 00CD:127 Normal [facility] Preoperative Documentson Preoperative Documents [id number]#1. 00CD:127 Normal [facility] COVID-19 (MC)on 06-14-2020 SARS-CoV-2 (COVID-19) RNA AIDEE+probe Ql (Unsp spec) Not detected Normal Not Detected [facility] Comment on above: Result Comment: This test result should be correlated with clinical presentations and medical history by a healthcare provider to determine its clinical significance. This assay was performed by a reverse transcriptase real-time polymerase chain reaction (rt PCR) method on the [facility] system. This test has been authorized only [...] or revoked sooner. Performed By: #### 2 [id number] ####[address] [place] [address] SARS-CoV-2 (COVID-19) RNA AIDEE+probe Ql (Unsp spec) Pass Normal Pass [facility] Comment on above: Performed By: #### 2 [id number] ####[address] [place] [address] Specimen source Nom (Unsp spec) Nasal Normal [facility] Comment on above: Performed By: #### 2 [id number] ####[address] [place] [address] Coding Summary.on 06-14-2020 Coding Summary. CD:[id number] Gh 0bWw+PGhlYWQ+EB0DBXLkQ 60yeTDydQ5DP4fYJO8LEEC LAMXCQT6MVG4mfPF2AJxzT 2VybiAv EajssMWqHX38TFl6HIM7iG dwCZewzZ6xxVKrV2c7CvLi MV94mU62CXeeCHQoOmA9Nw ZpbjsgbWFy C3qxJbRltZClZrz+PHRhYm xlIHdpZHRoPScxMDAlJyBz pMcoPI2eUu4mLIMeSCSclN xhcHNlOiBj a6frNEVfRPnbTW9dtBwkV3 QpuJI8GCSss0e5Dv04bKY+ RGWeYTG0zIdqIVgts120Ht Oab5ndBQG7 wKZyXXkzOHB1K31bs7K5GM JwDNYmYKA4yCL6wT0tuEwg jcdwT3SqeHXyWbY5PDX0rO VzuL1idWqd jvtylD8xYlq+K43GCM1RJC RTAS9UOvf3H1ClGgvatCI+ KT98QEDmWC93aNHsnGRun8 kolVe4HnRa CXUjKQO4rUfsNOuzj2WjOS VjJ35heGCuy0P7QEYrkXlw xOZsAxWlcEF4tK1oJQcofl shr2yukcql Qkxuk4fnfh43eL82D27qPJ tgSOGtHSE4QDKqTOEheTle yk7jcE5tQy2+RFsfu5hso5 olmFu7UrCk TYQneeUlkIjoLML4c1HfCz 08N7SzwXclh3GuFij4ge29 wQAeq9L6xFE5UTkvVMWigU 5yQTgkOvF6 BKOsWbRhvI76jGDzNSwsYq 5rpRtmsKqyJZ0cEFMweufz KVNasP0gTRRrpTYflOzuHE 4wNTBpbjtm t244KdZtGFK1NBQqdIGmP4 UjtX0rYjOcXKKnLVNsZ1Ej hIHvUShhY248USzdMgT3ZT RfrfVmG4Ct UTXbrJqnJsU1u8R0Ai1Vd8 ZpmcwkCWU5MUocKMW7VcT3 DdMdFhA4P7TrDkd3SWHkzC rqEX8cA2Zq JRRavducdsqobTP6MUEaEP SodC46nTUpONtiXw6ot6E4 z539FFAkZDGebO84Lk5mpU ogMTBwdCBU xM9qslxkj6oldiytIfFwGL KxQLu4LGf4BWYbiXbmOuZm EZG7OsE7YOZ2eEOztV9blN stbhpumT6r Oyc+M36myZ5fUHB5BDF9hw rkCBZgzlBvFK84WV63Y1Qm PjwvdGFibGU+PGRpdiBzdH arTN5aEmQb a1ost0MyQSfeQ1LdLDAyRG zjQqo5YTZpOPZ4tJU2bU6x DXDaTQlvv1U8dNZ3W7Myvd Pqcr9gn5go PNDhINnnJ22fvETsk9C1DS XdbJK3PUYaoSlxAiFvzT70 Oyc+USOusCagn1YtHwggv1 qve7vtvDn6 McFhGNIpxrMsrQlqBNB1z1 WqDe76F27aAXgmKOFeIPUn IYTfHHMuzGvqnu0ozF7bBy 8+PGNvbCB3 sAM3wF3mPXAzClJ2SSglX8 48FiEyrGOrSmuem3ovw5vp hJn2CoFpZWNkvvZkvFmgZM A3c0YnLt06 Q77nCJfyJCSjROAfIWXkBN BcuEwopy3muY9uEm6+PC9j r7aocx70gE69hWJ+PHRkIH A4xMlkUZbs UNIcuL5rUEbiXtY8LZMmRu YvdJ93kNOlZLqlEc8hnEnp kAgqKI9eEDRzqgdle587Td Afu8hgPXFz kAXsCZmrOIX9R45cv5R6QC OjBUZdRFU5nCD7fY5ffJdd bjogbGVmdDsgdmVydGljYW gxOJbsD512 IHRvcDsnPlBhdGllbnQgTm WcLFm0C2BuCpf2WYRetIpd XR7hxQAvBJgoLt8cxAfpuC iwXD8qTDRl vyrtl240YcVto2uvBBJtcZ AxYNvbPJR0K14uz9D3EVYg VLFsIGI8eHE5oA2kpOjqfr ogbGVmdDsg zvXsdGzoNCqtGGfbI124HR RvcDsnPkJpcnRoIERhdGU6 NM15BN17cVFru5D7lXW1R2 BhZGRpbmct cvxelSF4XMXfWUUvxK08Nm 0lbOwqMa2pGPGpYDE2LYCn pMDeM5OvcF7yVhHqUEEqHF RrB9RjzWNd JSklB558KMffNzN8ABXrlq MqQ5EoMLCuyBxgUaJ3u2Z8 Gu6NP6C6DZ85LM65oIHlv4 O5rOM5I2Uw RFAoegocdpyweDE7RCKzTS SlaT17Po2soPxeOw2cQIVk SYL8QYMbaVSyP5AwzA8pJj AjMDAwMDAw O1NueZGwFIhdQ488ZZtpHq B3LZYvywFtO9IyCTFwvOrj KkW6t9Z0Gn2WLLd0WK91FR 99rPSdn8K7 zRB9H7DeCEBlthfvnwllbB B9ZFLjWYOiiQ00Gq8wiGwf Sq8eNLVyOTD4NXVvpQXtK3 NbhA1wJzWs LAOaGFXqE1HcoSOqJOlmX8 02DVwiMhN8BPIgdnAwX9Fy QXYmeDfsLyO2a6F8Mr6WBN FeVT77SYC6 tXM9SJ72TA95E8HzEztiiQ FibGU+PHRhYmxlIHdpZHRo HDnwCIQwHcOhqQgkGE3sMj 9yZGVyLWNv xMrsvKYcCgEia4rrBJArMZ tdRA6ffApnK9TfoOL8DUFd m3t7Iq46H19tX7NifFI+PG WwtRQ7mMA1 mD3fPpToDxA6EBnvV982Ou LkhSHyZffdm1doa5tylOq3 MtV0BLFfptAlwIetNKI2i0 ChRj23W65l IHdpZHRoPSIxNSUiIHZhbG brgx1xvK4uRk2+PGNvbCB3 vDG2mQ7oFvAzWjF4AXkbV6 49InRvcCIv Tniby9pje8jocYh8CiPmVF NbcsLyuJbiFYF9q1WaIt58 H5MfkWpkk8KiLzu7nw34sZ Pva0F4oQD5 X6FvBXJkwgrhfLDisWycIP 7jJKFubumhJCIncW2qGVFz J6j1HsJaZaI1KPnpD9Zuur H9EFAuxERe VLmbEQZ5G77yg9D9EROyOL MmUAS9uAH3xG4wuZmcvzin bGVmdDsgdmVydGljYWwtYW eaA337THLy fHbyAEMrcA2fAXVuhBRxvB niUZ7gNNUoxlugRdHYHlOJ CQooDD3KHrRYNLXrZaqbrV Q+PHRkIHN0 oOzxICjzVGYgfB9rOCZkL4 z7ZoKjBvL1ACogC7MlDPUb wvdpOx99mD6uTaQnUpY7CG guN1ZtysR1 FUAevPJdTComPZW1Y73vj7 N7YUIeATTcBQM1mJH1sJ9a bGlnbjogbGVmdDsgdmVydG ljYWwtYWxp C196ZJGjhTvqUrKnWoNeAu G2UXY1Y4HfKuq4EXDqvRxa WZ4biRIcSJmiNw3sqEvtsF qfGE6rHGSc wbinMGKieX2dOQKsmNIptL ezAQ5nHFUyqnopo052QwMr AOH1QOQqvWGtV7AjsI1gDg AjMDAwMDAw L4TpqJYyYEykU416EGmaAn D4GNDyysZzC6PlBIRltUpo GvL3p3Y3Xd3hXUGMRLHtio wvdGQ+PHRk UZU8hEpzEBvdEZTolP9zKA EbX1j7PzZzQjK0CDkcJ7Py QTLsrssyJj63zR0xZvHhRk A8ZDafJ7Xr vnR9WJZanBYlOGnlZRI6X8 8fv7L6REJmIKRfWRZ6jTA4 jP5dgDjxhcdlsKGcnJmnzg VydGljYWwt UFvnD284ZYOxrWgtCxPgoN FsZTwvdGQ+PCZqZMR6dObw WWocNRExqH6fOUPpZ4z0Ru GyTbD0SFzm U1BxKALzhcxxQy63dF6vOr LrFpT7QLihY7YkupO4DZVw tPBpNSjkUMS4K49wu2H9BZ MwMDAwMDA7 qBJ6jX0efDnjybwghGHboR ftrbCquHcfRMxlMRdfW829 DFLtsTfuIlVbUFMlKS9uxK wvdGQ+PC90 ed19D5ZjVteaJzw9TLSwVG A8pOF2jF6hEKEdSKcnr2S4 rNA6Z5WvouTrbr0at4wlNN WfXZkjA50i mFDuy8F2ADVyeYD0JEWopK nxRpCguE31Rtu+PGNvbGdy p7XxZcnxd3fvp0fwsOz0Kr MwJSIgdmFs sMjoEHL4o1WaQf38G63yQW dpZHRoPSIzMCUiIHZhbGln rn6ekX7hNx7+VSMadUK2kJ Q5fH1oJqFu ChV6FUxbL087KuYjkQNxCn vum0qbo5wxvRy0VmHsUUXn zePexRwzFAY2o5WyVj96K9 JpkGbae1Ao Ofx2hr00yODcn5S8sDP2W0 SnPJRjtyicxNAfuJmcQU1e BKEjpklbWQHluB9gRYJxA2 s9VtTsIbG9 ZAziI7LnhaM1OFFdlBDzQE TklIKPzL0plgjkx7ybvqha LgAvRNZvRVj3XRw7WCYynB duOiBsZWZ0 YaP6NGW3vOOdzR3ilRplut iwzI7qMye+INk3d1mwhFSa UQ0tlLR1JT38WD42kOUfa4 Q0qGI4D7Dl EWEguyzeyvupcOG1MNPoJC BtiI15Gs0lpMugVg6tXSCn RPG6QBCsbVEeL6EcvD6oIi AjMDAwMDAw O3JusHOqLMcsE744OOmwFt V2FLWgcgErK2KnSBVnxBqp PsW7x1I3Ta3WWH67ZN43SJ 92oVEbh3S7 gPI9I9IiSVQcfnqrxwbnrE K3BELxKIIvrT73Ex6tlGkl Ke2bYYEfHPT2QGHypTXfF7 EfbC6cLnAe WLYgTUSkC0XfeUWuTJxnV2 91VLaqTpN7DSYfbiIvJ1Gl ICXonDmnGeJ3s6O8Uh0DFn 93JI45RY81 fPGle7Q8hXV7W2LhJTSxmq iwaoyqyYB3KRJhMTMkeU46 Xx8vcWpkXx6zZBPgJEZ0GZ UzfPByK4Wl qJ4zMwIrCDZsSPFfV4ZaqG CqLXmaV283APtiMlP0YLDt ffPvD6TsYQCdlZerKcK5a2 U9Hr8FTTrj nqh0E4JdLvuesGJ+PC90YW YwFZ56nXNbnGKhi2pniJp2 IdMaVXHqCCA9rBclDEeos7 PgVSUkD84c bGFw (more content not included)... Normal [facility] Consent for Procedure/Surger yon 06-14-2020 Consent for Procedure/Surgery [id number] 0CD:127 Normal [facility] Consent for Treatmenton Consent for Treatment [id number] D:127 [facility] Inpatient Patient Summaryon 06-14-2020 Inpatient Patient Summary [address] [id number] [facility] Clinical Discharge Instructions PERSON INFORMATION Name: ANTOINETTE RECIO [facility]#:[id number] PHYSICIANS Admitting Physician: Jordan Bhakta DO Attending Physician: Jordan Bhakta DO PCP: NONE, XXXX Discharge Diagnosis: Comment: PATIENT EDUCATION INFORMATION Instructions: Shoulder Cryocuff Patient Instructions - FT (CUSTOM); Post Op Patient Instructions - FT (Custom) (CUSTOM); Silvana Bhakta - Shoulder Replacement (Custom) Medication Leaflets: Follow up: With: Address: When: Jordan Bhakta [address] [place] [address] [facility] (1) 06/21/2020 8:45 AM Comments: Call for any problems. Keep scheduled appointment MEDICATION LIST New Medications [facility], [place] [id number], [phone] acetaminophen-oxycodon e (Percocet 325 mg-5 mg Tab) 1-2 tab(s) Oral q4hr; as needed as needed for pain. Refills: 0. docusate (Colace 100 mg Cap) 1 Capsules By Mouth 2 times a day as needed for constipation. Refills: 0. Medications to Continue Taking That Have Changed [facility] [address], [place] [id number], [phone] START: naproxen (naproxen 500 mg Tab) 1 Tablets By Mouth 2 times a day. with food. Refills: 0. Other Medications START: naproxen (naproxen 500 mg Tab) 1 Tablets By Mouth 2 times a day. Take one tab by mouth two times a day. Refills: 0. Comment: Normal [facility] Main OR PACU I [facility] Main OR PACU I Record PACU Phase I Docum ent Type FT Summary Primary Physician: Jordan Bhakta DO Finalized Date/Time: 06/14/20 19:45:42 Pt. Name: ANTOINETTE RECIO /Sex: 1995 Female Med Rec #: [id number] Physician: Jordan Bhakta DO Financial #: [id number] Pt. Type: A Room/Bed: [place] [address] Admit/Disch: 06/14/20 15:28:52 - Institution: Case Times [...] Yvette Santa RN 06/14/20 19:[address] [facility] Main OR PACU II [facility] Main OR PACU II Record PACU Phase II Doc ument Type FT Summary Primary Physician: Jordan Bhakta DO Finalized Date/Time: 06/14/20 21:13:50 Pt. Name: ANTOINETTE RECIO [place] [place] [facility]./Sex: 1995 Female Med Rec #: [id number] Physician: Jordan Bhakta DO Financial #: [id number] Pt. Type: A Room/Bed: [facility] Admit/Disch: 06/14/20 15:28:52 - 06/14/20 21:05:00 Institution: [...] By: Soraya Dixon RN 06/14/20 21:13 Normal [facility] Main OR Preoperative Recordo n 06-14-2020 Main OR Preoperative Record PreOp Document Type FT Summary Primary Physician: Jordan Bhakta DO Finalized Date/Time: 06/14/20 18:03:47 Pt. Name: ANTOINETTE RECIO /Sex: 1995 Female Med Rec #: [id number] Physician: Jordan Bhakta DO Financial #: [id number] Pt. Type: A Room/Bed: [place] [address] Admit/Disch: 06/14/20 15:28:52 - Institution: Case Times [...] By: Alycia Cash RN 06/14/20 18:03 Normal [facility] Monitor [facility]ordon 06-14-2020 Monitor Record [id number]:127 [facility] Operative Reporton Operative Report Patient: ANTOINETTE RECIO [...] Anesthesia type: General, Regional. anesthesiologist: abhinav Williamson [facility] Comment on above: Result Comment: Elec tronically Signed By: Jordan Bhakta DO\.br\Date and Time Signed: 06/14/20 19:03 EDT Outpatient Surgery Discharge Instructionon 06-14-2020 Outpatient Surgery Discharge Instruction [place] [id number] Patient Discharge Instructions PERSON INFORMATION Name: ANTOINETTE [...] Follow up: With: Address: When: Jordan Bhakta [address] [place], [place] [address] [address] Business (1) 06/21/2020 8:45 AM Comments: Call for any problems. Keep scheduled appointment Pharmacy Information: [facility] You may receive a survey from Molly Salmon asking you to rate your care experience. Your feedback is important and will help us understand what we do well and how we can improve the quality of care we provide to you, your loved ones and our community. It?s an honor to serve you. Thank you for choosing [facility] HERE ARE THE MEDICATION CHANGES THAT OCCURRED DURING YOUR HOSPITAL STAY New Medications [facility] [address], [place] [id number], [phone] acetaminophen-oxycodon e (Percocet 325 mg-5 mg Tab) 1-2 tab(s) Oral q4hr; as needed as needed for pain. Refills: 0. docusate (Colace 100 mg Cap) 1 Capsules By Mouth 2 times a day as needed for constipation. Refills: 0. Medications to Continue Taking That Have Changed [facility] [address], [place] [id number], [phone] START: naproxen (naproxen 500 mg Tab) 1 Tablets By Mouth 2 times a day. with food. Refills: 0. Other Medications START: naproxen (naproxen 500 mg Tab) 1 Tablets By Mouth 2 times a day. Take one tab by mouth two times a day. Refills: 0. PATIENT EDUCATION INFORMATION Instructions: [place], [place] [facility] DISCHARGE INSTRUCTIONS: SHOULDER SURGERY [...] vomiting. Jordan Bhakta, DO [facility] [address] [place] [address] Reviewed: Normal [facility] Patient Education - Texton 0 06-14-2020 Patient Education - Text [place], [place] [facility] DISCHARGE INSTRUCTIONS: SHOULDER SURGERY [...] vomiting. Jordan Bhakta, DO [facility] [address] [place], [place] [address] Reviewed: Normal [facility] BMPon 06-13-2020 Anion gap [Moles/Vol] 12 mmol/L Normal - [facility] Comment on above: Performed By: #### 2 [id number], [id number], [id number] ####[facility] [address] [place] [address] Calcium [Mass/Vol] 9.1 mg/dL Normal 8.9-11.1 [facility] Comment on above: Performed By: #### 2 [id number], [id number], [id number] ####[facility] [address] [place] [address] Chloride [Moles/Vol] 105 mmol/L Normal 101-111 [facility] Comment on above: Performed By: #### 2 219071, [id number], [id number] ####[facility] [address] [place] [address] CO2 [Moles/Vol] 29 mmol/L Normal 21-31 [facility] Comment on above: Performed By: #### 2 273042, [id number], [id number] ####[facility] [address] [place] [address] Creatinine [Mass/Vol] 0.7 mg/dL Normal 0.5-1.3 [facility] Comment on above: Performed By: #### 2 109276, [id number], [id number] ####[facility] [address] [place] [address] Glucose [Mass/Vol] 82 mg/dL Normal 55-199 [facility] Comment on above: Result Comment: If t his glucose result represents a fasting glucose, interpretation should refer to the following reference range: 55-99 mg/dL Performed By: #### 2 813346, [id number], [id number] ####[facility] [address] [place] [address] Potassium [Moles/Vol] 3.9 mmol/L Normal 3.5-5.3 [facility] Comment on above: Performed By: #### 2 849698, [id number], [id number] ####[facility] [address] [place] [place] [address] Sodium [Moles/Vol] 142 mmol/L Normal 135-145 [facility] Comment on above: Performed By: #### 2 237986, [id number], [id number] ####[facility] [address] [place] [address] Urea nitrogen [Mass/Vol] 14 mg/dL Normal 5-21 [facility] Comment on above: Performed By: #### 2 929780, [id number], [id number] ####[facility] [address] [place] [address] Urea nitrogen/Creatinine [Mass ratio] 20 No Units Normal 10-20 [facility] Comment on above: Performed By: #### 2 569613, [id number], [id number] ####[address] [address] CBC w/Indiceson 06-13-2020 Erythrocyte distribution width (RBC) [Ratio] 14.3 % High 10.9-14.2 [facility] Comment on above: Performed By: #### 2 753697, [id number], [id number] ####[address] [address] Hematocrit (Bld) [Volume fraction] 36.4 % Normal 34.0-46.0 [facility] Comment on above: Performed By: #### 2 369106, [id number], [id number] ####[address] [address] Hemoglobin (Bld) [Mass/Vol] 11.9 g/dL Low 12.0-16.0 [facility] Comment on above: Performed By: #### 2 923751, [id number], 5786922 ####[address] [address] MCH (RBC) [Entitic mass] 27.5 pg Normal 27.0-34.0 [facility] Comment on above: Performed By: #### 2 568482, [id number], 2857875 ####[address] [address] MCHC (RBC) [Mass/Vol] 32.6 g/dL Normal 31.4-36.0 [facility] Comment on above: Performed By: #### 2 [id number], [id number], [id number] ####[facility] [address] [place] [address] MCV (RBC) [Entitic vol] 84.4 fL Normal 80.0-100.0 F [facility] Comment on above: Performed By: #### 2 [id number], [id number], [id number] ####[address] [address] Platelet mean volume (Bld) [Entitic vol] 7.5 fL Normal 6.4-10.8 [facility] Comment on above: Performed By: #### 2 866375, [id number], [id number] ####[address] [address] Platelets (Bld) [#/Vol] 319.0 E9/L Normal 150.0-500.0 [facility] Comment on above: Performed By: #### 2 [id number], [id number], [id number] ####[address] [address] RBC (Bld) [#/Vol] 4.3 E12/L Normal 4.3-5.9 [facility] Comment on above: Performed By: #### 2 [id number], [id number], [id number] ####[address] [address] WBC corrected for nucl RBC Auto (Bld) [#/Vol] 6.8 E9/L Normal 4.0-11.0 [facility] Comment on above: Performed By: #### 2 514211, [id number], [id number] ####[address] [address] Consent for Treatmenton Consent for Treatment [id number] [id number] 0CD:127 Normal [facility] Physician Orderon 06-13-2020 Physician Order [id number]. 00CD:127 Normal [facility] Physician Order [id number]#1. 00CD:127 Normal [facility] Progress Note-Physicianon Progress Note-Physician Patient: ANTOINETTE RECIO [...] selected or recorded. Procedure history: Gastric sleeve ([id number]) in 2019 at 22 Years. Tonsillectomy ([id number]). Social History Social & Psychosocial Habits Alcohol [...] review: No qualifying data available . Plan [place] [employer] Anesthesiologists (ASA) physical status classification: Class I. Anesthetic Preoperative Plan Anesthesia: General. , Regional Interscalene Block. Anesthetic plan, risks, benefits, and alternatives discussed with the patient and/or family. Pt. and/or family present and agree to proceed as planned.. Discussed the importance of abstaining from tobacco products, and offered counseling if desired. Normal [facility] Comment on above: Result Comment: Elec tronically Signed By: Godfrey Graves JR, DO.candice\Date and Time Signed: 06/13/20 15:05 EDT U BetaHcg Qualon 06-13-2020 HCG.beta subunit (U) [Moles/Vol] Negative Normal [facility] Comment on above: Performed By: #### 2 [id number] #### [facility] [address] [place] [address] eGFRon 06-13-2020 GFR/1.73 sq M.predicted among blacks MDRD (S/P/Bld) [Vol rate/Area] mL/min/{1.73_m2} Normal >=59 [facility] Comment on above: Order Comment: Order added by Discern Expert. Result Comment: eGFR is race adjusted. AA=. Performed By: #### 2 [id number], [id number], [id number] ####[facility] [address] [place] [address] GFR/1.73 sq M.predicted among non-blacks MDRD (S/P/Bld) [Vol rate/Area] mL/min/{1.73_m2} Normal >=59 [facility] Comment on above: Order Comment: Order added by Discern Expert. Result Comment: Line Clearance Foreman mile kidney disease could be indicated at eGFR's of less than 60 mL/min/1.73m2. Kidney failure is indicated at less than 15 mL/min/1.73m2. 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 NO Normal [facility] Comment on above: Performed By: #### 2 [id number] ####[facility] [address] [place] [address] ICU NO Normal [facility] Comment on above: Performed By: #### 2 [id number] ####[facility] [address] [place] [address] ? Unknown Normal [facility] Comment on above: Performed By: #### 2 [id number] ####[facility] [address] [place] [address] Resides in a [facility] Care Setting NO Normal [facility] Comment on above: Performed By: #### 2 [id number] ####[address] [place] [address] Symptomatic as defined by [facility] Unknown Normal [facility] Comment on above: Performed By: #### 2 [id number] ####[address] [place] [address] Physician Orderon 06-12-2020 Physician Order [id number] 0CD:127 [facility] Consent for Treatmenton Consent for Treatment [id number] [id number] 0CD:127 [facility] Discharge Instructionson Discharge Instructions [id number]. 00CD:127 Normal [facility] ED Clinical Summaryon 2020 ED Clinical Summary [place] [id number] ED Clinical Summary Person Information Name: ANTOINETTE RECIO [facility] Age: 25 Years : 1995 Sex: Female Language: Belgian PCP: Isaiah BHAKTA MD Marital Status: Visit [...] 06/11/2020 12:47:55 06/11/2020 12:47:55 06/11/2020 12:47:55 ADDRESS: [address] [place] [id number] PHYS DOC NOTES: MEDICAL INFORMATION: Prescriptions Given: [...] up: With: Address: When: Jordan Bernardo [address] [place] [address] Business (1) 06/12/2020 3:15 PM With: Address: When: Isaiah BHAKTA [address] [facility] [place] [place] [address] Business (1) In 3 days DIAGNOSIS: Fracture of left clavicle Normal [facility] ED Note-Physicianon 06-12-19 ED Note-Physician Basic Information Time Seen: Sara Burdick DO 06/11/2020 12:18 Chief Complaint Pt reports broken collar bone and stitches above eye. Went to [place] ED sat and sent to [place]. Pt reports still in pain and was [...] left clavicle. She was taken from the [facility] transferred to a hospital in [place] where she was discharged 20 minutes later [...] see the patient tomorrow at [address] in [place] and she is treated with anti-inflammatories and [...] Jordan Bhakta 06/12/2020 03:15 PM EDT [address] [place] [address]- Business (1) Additional Instructions: Isaiah BHAKTA In 3 days [address] [place] [address]- Business (1) Additional Instructions: Problem List/Past Medical [...] Signed By: Nathaniel SIMEON, Marisa Self Normal [facility] Comment on above: Result Comment: Elec tronically Signed By: Sara Burdick DO\.br\Date and Time Signed: 06/11/20 12:39 EDT ED Patient Education Noteon 06-11-2020 ED Patient Education Note Normal [facility] ED Patient Summaryon 021 ED Patient Summary [place] [address] Patient Discharge Instructions Person Information Name: ANTOINETTE RECIO Age: 25 Years Arrival Date: 06/11/2020 10:49:37 Discharge Diagnosis: Fracture of left clavicle Primary Care Physician: Isaiah BHAKTA MD Provider Information Primary Provider: Sara Burdick DO Advanced Respite Worker:None The exam and treatment you received in the Emergency Department were for an urgent problem and are not intended as complete care. It is important that you follow up with a doctor, nurse practitioner, or physician?s assistant inventory manager for ongoing care. If your symptoms become [...] Instructions: With: Address: When: Jordan Bernardo [address] [place] [address] Business (1) 06/12/2020 3:15 PM With: Address: When: Isaiah BHAKTA [address] [place] [address] Business (1) In 3 days In the event that this physician does not participate in your insurance network, please consult with your insurance company to find a nearby participating provider. Patient Education Materials: A MESSAGE TO ALL PATIENTS REGARDING OPIOIDS PRESCRIPTION OPIOIDS: WHAT YOU NEED TO KNOW Prescription opioids can be used to help relieve dcnnfuiw-vk-ojutih pain and are often prescribed following a [...] care pro (more content not included)... Normal [facility] XR Chest 2 [place] XR Chest 2 [...] MD Transcribed by: MICHAEL Technologist: ABDULLAHI [facility] CBC AUTO DIFFon 06-10-2020 BASO # 0.1 103/ul Normal 0.0-0.1 [facility] Comment on above: Performed By: #### C BC #### [facility] [address] [id number] Kinjal Sherine Basophils/100 WBC (Bld) 0.5 % Normal 0.2-2.0 [facility] Comment on above: Performed By: #### C BC #### [facility] [address] [place] [address] Kinjal Sherine EO # 0.2 103/ul Normal 0.0-0.7 [facility] Comment on above: Performed By: #### C BC #### [facility] [address] [place] [address] Kinjal Sherine Eosinophils/100 WBC (Bld) 1.8 % Normal 0.9-7.0 [facility] Comment on above: Performed By: #### C BC #### [facility] [address] [place] [address] Kinjal Sherine Erythrocyte distribution width (RBC) [Ratio] 13.7 % Normal 11.0-15.0 [facility] Comment on above: Performed By: #### C BC #### [facility] [address] [place] [address] Kinjal Sherine Hematocrit (Bld) [Volume fraction] 38.2 % Normal 36.0-48.0 [facility] Comment on above: Performed By: #### C BC #### [facility] [address] [id number] Kinjal Sherine Hemoglobin (Bld) [Mass/Vol] 11.9 g/dL Critically low 12.0-16.0 [facility] Comment on above: Performed By: #### C BC #### [facility] [address] [place] [address] Kinjal Sherine IG # 0.03 10e3/ul Normal 0.00-0.03 [facility] Comment on above: Performed By: #### C BC #### [facility] [address] [place] [address] Kinjal Sherine IG % 0.3 % Normal 0.0-0.5 [facility] Comment on above: Performed By: #### C BC #### [facility] [address] [place] [address] Kinjal Sherine LYMPH # 1.8 103/ul Normal 1.2-3.8 [facility] Comment on above: Performed By: #### C BC #### [facility] [address] [place] [address] Kinjal Sherine Lymphocytes/100 WBC (Bld) 17.4 % Critically low 20.5-60.0 [facility] Comment on above: Performed By: #### C BC #### [facility] [address] [place] [address] Kinjal Sherine MANUAL DIFF REQ NO Normal [facility] Comment on above: Performed By: #### C BC #### [facility] [address] [place] [address] Kinjal Sherine MCH (RBC) [Entitic mass] 27.0 pg Normal 26.7-34.0 [facility] Comment on above: Performed By: #### C BC #### [facility] [address] [place] [address] Kinjalroverto Mckeonen MCHC (RBC) [Mass/Vol] 31.2 g/dL Normal 29.9-35.2 [facility] Comment on above: Performed By: #### C BC #### [facility] [address] [place] [address] Kinjal Sherine MCV (RBC) [Entitic vol] 86.8 fL Normal 81.0-99.0 [facility] Comment on above: Performed By: #### C BC #### [facility] [address] [place] [address] Kinjal Sherine MONO # 0.3 103/ul Normal 0.3-0.8 [facility] Comment on above: Performed By: #### C BC #### [facility] [address] [place] [address] Kinjal Basurto Monocytes/100 WBC (Bld) 3.2 % Normal 1.7-12.0 [facility] Comment on above: Performed By: #### C BC #### [facility] [address] [place] [address] Kinjal Basurto NEUT # 7.8 103/ul Critically high 1.4-6.5 [facility] Comment on above: Performed By: #### C BC #### [facility] [address] [place] [address] Kinjal Basurto Neutrophils/100 WBC (Bld) 76.8 % Critically high 43.0-75.0 [facility] Comment on above: Performed By: #### C BC #### [facility] [address] [place] [address] Kinjal Basurto Platelet mean volume (Bld) [Entitic vol] 9.1 fL Critically low 9.5-13.5 [facility] Comment on above: Performed By: #### C BC #### [facility] [address] [place], [place] [id number] Kinjalroverto Mckeonen PLT 350 103/ul Normal 150-450 [facility] Comment on above: Performed By: #### C BC #### [facility] [address] [place] [address] Kinjal Sherine RBC 4.40 106/ul Normal 4.20-5.40 [facility] Comment on above: Performed By: #### C BC #### [facility] [address] [place], [place] [id number] Kinjal Sherine WBC 10.1 103/ul Normal 4.0-11.0 [facility] Comment on above: Performed By: #### C BC #### [facility] [address] [place], [place] [id number] Kinjal Sherine CT CHEST W CONon 06-10-2020 [...] ARELI RIVERA Date: 2020-06-10 03:43 Normal [facility] CT CSPINE WO CONon CT CSPINE [...] Haylie VILLAR Date: 2020-06-10 01:09 Normal [facility] CT HEAD WO CONon 06-10-2020 CT [...] ARELI RIVERA Date: 2020-06-10 01:01 Normal [facility] DRUG SCREEN RAPID (URINE)on 06-10-2020 AMP Negative Normal NEGATIVE [facility] Comment on above: Performed By: #### E RUR, DRUGRPD #### [facility] [address] [place] [address] Kinjal Sherine BAR Negative Normal NEGATIVE [facility] Comment on above: Performed By: #### E RUR, DRUGRPD #### [facility] [address] [place] [address] Kinjal Sherine BUP Negative Normal NEGATIVE [facility] Comment on above: Performed By: #### E RUR, DRUGRPD #### [facility] [address] [place] [address] Kinjal Sherine BZO Negative Normal NEGATIVE [facility] Comment on above: Performed By: #### E RUR, DRUGRPD #### [facility] [address] [place] [address] Kinjal Sherine CURTIS Negative Normal NEGATIVE [facility] Comment on above: Performed By: #### E RUR, DRUGRPD #### [facility] [address] [place] [address] Kinjal Sherine CUT-OFFS SEE BELOW Normal [facility] Comment on above: Result Comment: AMP [...] Performed By: #### Mitchell RUR DRUGRPD #### [facility] [address] [place] [address] Kinjal Sherine DRUG CUT HEADER DRUG CLASS TEST SYST EM CUT-OFF CONCENTRATIONS ARE FOLLOWS: Normal [facility] Comment on above: Performed By: #### E RUR, DRUGRPD #### [facility] [address] [place] [address] Kinjal Sherine mAMP Negative Normal NEGATIVE [facility] Comment on above: Performed By: #### Mitchell RUR, DRUGRPD #### [facility] [address] [place] [address] Kinjal Sherine MTD Negative Normal NEGATIVE [facility] Comment on above: Performed By: #### Mitchell RUR DRUGRPD #### [facility] [address] [place] [address] Kinjal Sherine OPI Positive Abnormal NEGATIVE [facility] Comment on above: Performed By: #### Mitchell RUR, DRUGRPD #### [facility] [address] [place] [address] Kinjal Sherine OXY Negative Normal NEGATIVE [facility] Comment on above: Performed By: #### Mitchell RUR, DRUGRPD #### [facility] [address] [place] [address] Kinjal Sherine PCP Negative Normal NEGATIVE [facility] Comment on above: Performed By: #### E RUR, DRUGRPD #### [facility] [address] [place] [address] Kinjal Sherine PPX Negative Normal NEGATIVE [facility] Comment on above: Performed By: #### Mitchell RUR, DRUGRPD #### [facility] [address] [place] [address] Kinjal Sherine TCA Negative Normal NEGATIVE [facility] Comment on above: Performed By: #### E RUR, DRUGRPD #### [facility] [address] [place] [address] Kinjal Sherine THC Negative Normal NEGATIVE [facility] Comment on above: Performed By: #### E RUR, DRUGRPD #### [facility] [address] [place] [address] Kinjal Basurto ER URINE PROFILEon 1 Bilirubin Ql (U) Negative Normal NEGATIVE [facility] Comment on above: Performed By: #### E RUR, DRUGRPD #### [facility] [address] [place] [address] Kinjal Sherine Clarity (U) CLEAR Normal CLEAR [facility] Comment on above: Performed By: #### E RUR, DRUGRPD #### [facility] [address] [place] [address] Kinjal Sherine Color (U) LT. YELLOW Normal YELLOW [facility] Comment on above: Performed By: #### E RUR, DRUGRPD #### [facility] [address] [place] [address] Kinjal Basurto ERUAHD A micrscopic examination will be performed if indicated. Normal [facility] Comment on above: Performed By: #### E RUR, DRUGRPD #### [facility] [address] [place] [address] Kinjal Sherine Glucose Ql (U) Negative Normal NEGATIVE [facility] Comment on above: Performed By: #### E RUR, DRUGRPD #### [facility] [address] [place] [address] Kinjal Sherine Hemoglobin Ql (U) Negative Normal NEGATIVE [facility] Comment on above: Performed By: #### E RUR, DRUGRPD #### [facility] [address] [place] [address] Kinjal Sherine Ketones Ql (U) Negative Normal NEGATIVE [facility] Comment on above: Performed By: #### E RUR, DRUGRPD #### [facility] [address] [place] [address] Kinjal Sherine LEUKOCYTES Negative Normal NEGATIVE [facility] Comment on above: Performed By: #### E RUR, DRUGRPD #### [facility] [address] [place] [address] Kinjal Basurto Nitrite Ql (U) Negative Normal NEGATIVE [facility] Comment on above: Performed By: #### Mitchell PETERSEN DRUGCARLOS A #### [facility] [address] [place] [address] Kinjal Basurto pH (U) 7.5 [pH] Normal 5-9 [facility] Comment on above: Performed By: #### Mitchell PETERSEN DRUGHARRYD #### [facility] [address] [place] [address] Kinjal Basurto SPEC GRAVITY 1.010 Normal 1.005-<=1.02 5 [facility] Comment on above: Performed By: #### Mitchell PETERSEN DRUGCARLOS A #### [facility] [address] [place] [address] Kinjal Basurto UA PROTEIN Negative Normal NEGATIVE/ TRACE [facility] Comment on above: Performed By: #### Mitchell PETERSEN DRUGCARLOS A #### [facility] [address] [place] [address] Kinjal Basurto UR MICRO IND NOT INDICATED Normal [facility] Comment on above: Performed By: #### Mitchell PETERSEN DRUGCARLOS A #### [facility] [address] [place] [address] Kinjal Basurto Urobilinogen Qn (U) 0.2 {Jazmine'U}/dL Normal 0.2 - 1. 0 [facility] Comment on above: Performed By: #### Mitchell PETERSEN DRUGHARRYD #### [facility] [address] [place] [address] Kinjal Basurto ETHANOL (BLD ALC)on 06-11-19 21 ALC NOTE NOTE: 80 mg/dl is th e legal limit for a blood alcohol level Normal [facility] Comment on above: Performed By: #### E TH ####[facility] [address] [place] [address]Kinjal Basurto Ethanol [Mass/Vol] 200 mg/dL Normal [facility] Comment on above: Performed By: #### E TH ####[facility] [address] [place], [place] [address]Gerroverto Basurto PROF 14(COMP METB)on 021 Albumin [Mass/Vol] 3.8 g/dL Normal 3.5-5.0 [facility] Comment on above: Performed By: #### C MP #### [facility] [address] [id number] Kinjal Sherine Albumin/Globulin [Mass ratio] 1.2 {ratio} Normal [facility] Comment on above: Performed By: #### C MP #### [facility] [address] [place], [place] [id number] Kinjal Sherine ALP [Catalytic activity/Vol] 54 U/L Normal 38-126 [facility] Comment on above: Performed By: #### C MP #### [facility] [address] [place] [address] Kinjal Sherine ALT [Catalytic activity/Vol] 19 U/L Normal 9-52 [facility] Comment on above: Performed By: #### C MP #### [facility] [address] [place] [address] Kinjal Sherine Anion gap [Moles/Vol] 12.2 mmol/L Normal [facility] Comment on above: Performed By: #### C MP #### [facility] [address] [place] [address] Kinjal Sherine AST [Catalytic activity/Vol] 13 U/L Critically low 14-36 [facility] Comment on above: Performed By: #### C MP #### [facility] [address] [place] [address] Kinjal Sherine Bilirubin [Mass/Vol] 0.3 mg/dL Normal 0.2-1.3 [facility] Comment on above: Performed By: #### C MP #### [facility] [address] [place], [place] [id number] Kinjal Sherine Calcium [Mass/Vol] 8.4 mg/dL Normal 8.4-10.2 [facility] Comment on above: Performed By: #### C MP #### [facility] [address] [place], [place] [address] Kinjal Sherine Chloride [Moles/Vol] 109 mmol/L Critically high 98-107 [facility] Comment on above: Performed By: #### C MP #### [facility] [address] [address] Kinjal Sherine CO2 [Moles/Vol] 27.5 mmol/L Normal 22.0-30.0 [facility] Comment on above: Performed By: #### C MP #### [facility] [address] [place], [place] [id number] Kinjal Sherine Creatinine [Mass/Vol] 0.73 mg/dL Normal 0.52-1.04 [facility] Comment on above: Performed By: #### C MP #### [facility] [address] [place], [place] [id number] Kinjal Sherine EGFR-AF [place] >60 Normal >=60 [facility] Comment on above: Performed By: #### C MP #### [facility] [address] [place] [address] Kinjal Sherine EGFR-NON AF [place] >60 Normal >=60 [facility] Comment on above: Performed By: #### C MP #### [facility] [address] [place] [address] Kinjal Sherine Globulin (S) [Mass/Vol] 3.3 g/dL Normal T [facility] Comment on above: Performed By: #### C MP #### [facility] [address] [place] [address] Kinjal Sherine Glucose [Mass/Vol] 85 mg/dL Normal 74-106 [facility] Comment on above: Performed By: #### C MP #### [facility] [address] [place] [address] Kinjal Sherine Potassium [Moles/Vol] 3.7 mmol/L Normal 3.4-5.0 [facility] Comment on above: Performed By: #### C MP #### [facility] [address] [place], [place] [id number] Kinjal Sherine Protein [Mass/Vol] 7.1 g/dL Normal 6.1-8.2 [facility] Comment on above: Performed By: #### C MP #### [facility] [address] [place], [place] [address] Kinjal Basurto Sodium [Moles/Vol] 145 mmol/L Normal 137-145 [facility] Comment on above: Performed By: #### C MP #### [facility] [address] [place], [place] [address] Kinjal Basurto Urea nitrogen [Mass/Vol] 9.0 mg/dL Normal 7.0-17.0 [facility] Comment on above: Performed By: #### C MP #### [facility] [address] [place] [address] Kinjal Basurto Urea nitrogen/Creatinine [Mass ratio] 12.3 mg/mg Normal [facility] Comment on above: Performed By: #### C MP #### [facility] [address] [place] [address] Kinjal Basurto Rapid Covid-19 PCR (CVDRPD)o n 06-10-2020 SARS-CoV-2 (COVID-19) RNA AIDEE+probe Ql (Unsp spec) Not detected Normal NOT DETECTED [facility] Comment on above: Result Comment: This test is not yet approved or cleared by the [place] Food and Drug Administration (FDA). This test was developed by [employer], [place], [place]. The performance characteristics of this test were validated by [facility]. The results are not intended to be used as the sole means for clinical diagnosis or patient management decisions. [facility] is authorized under Clinical Laboratory Improvement Amendments (CLIA) to perform high- complexity testing. When diagnostic testing is negative, the possibility of a false negative should be considered in the context of a patient's recent exposures and the presence of clinical signs and symptoms consistent with SARS-CoV-2. Performed By: #### C VDRPD ####[facility] [address] [place], [place] [address]Otoiir Karen XR CLAVICLE LTon 06-10-2020 XR CLAVICLE [...] by: Haylie VILLAR Date: 2020-06-10 01:50 Normal [facility] XR SHOULDER LT 2V or >on XR [...] by: BENNY ARMSTRONG Date: 2020-06-10 01:45 Normal [facility] Cult, Bloodon 2018 Cult, Blood Specimen Description .BLOOD Special Requests RT HAND Culture NO GROWTH 6 DAYS Report Status FINAL 2018 [facility] Comment on above: Performed By: #### B CUL2 ####[facility] [place], [place] [id number] lab Director: Reed Mckeon MD [facility],Bloodon 2018 Cult,Blood Specimen Description .BLOOD Special Requests L ARM 10CC Culture NO GROWTH 6 DAYS Report Status FINAL 2018 [facility] Comment on above: Performed By: #### B C ####[facility] [place], [place] [id number] lab Director: Reed Mckeon MD Basic Metab w/rfx MGon 04-16 (cont.) [facility] Comment on above: Result Comment: Aver age GFR for 20-29 years old: 116 mL/min/1.73sq m Chronic Kidney Disease: <60 mL/min/1.73sq m Kidney failure: <15 mL/min/1.73sq m eGFR calculated using average adult body mass. Additional eGFR calculator available at: http://www.[employer]/multiple_crcl_2012.htm Performed By: #### C BC, BMPX ####[facility] [address] [place] [address] Lab Director: Reed Mckeon MD Anion gap molar conc 13 mmol/L Normal 9-17 [facility] Comment on above: Performed By: #### C BC, BMPX ####[facility] [address] [place], [place] [phone] Director: Reed Mckeon MD Calcium mass conc 8.7 mg/dL Normal 8.6-10.4 [facility] Comment on above: Performed By: #### C BC, BMPX ####[facility] [address] [place], [place] [phone] Director: Reed Mckeon MD Chloride molar conc 110 mmol/L High 98-107 [facility] Comment on above: Performed By: #### C BC, BMPX ####[facility] [address] [place], [place] [phone] Director: Reed Mckeon MD CO2 molar conc 18 mmol/L Low 20-31 [facility] Comment on above: Performed By: #### C BC, BMPX ####[facility] [address] [place], [place] [phone] Director: Reed Mckeon MD Creatinine mass conc 0.49 mg/dL Low 0.50-0.90 [facility] Comment on above: Performed By: #### C BC, BMPX ####[facility] [address] [place], [place] [phone] Director: Reed Mckeon MD GFR, Amer >60 Normal >60 [facility] Comment on above: Performed By: #### C BC, BMPX ####[facility] [address] [place] [address] Lab Director: Reed Mckeon MD GFR,non Amer >60 Normal >60 [facility] Comment on above: Performed By: #### C BC, BMPX ####[facility] [address] [place], [place] [phone] Director: Reed Mckeon MD Glucose mass conc 74 mg/dL Normal 70-99 [facility] Comment on above: Performed By: #### C BC, BMPX ####[facility] [address] [place] [address] Lab Director: Reed Mckeon MD Potassium molar conc 4.2 mmol/L Normal 3.7-5.3 [facility] Comment on above: Performed By: #### C BC, BMPX ####[facility] [address] [place], [place] [phone] Director: Reed Mckeon MD Sodium molar conc 141 mmol/L Normal 135-144 [facility] Comment on above: Performed By: #### C BC, BMPX ####[facility] [address] [place], [place] [phone] Director: Reed Mckeon MD Urea nitrogen mass conc 6 mg/dL Normal 6-20 [facility] Comment on above: Performed By: #### C BC, BMPX ####[facility] [address] [place], [place] [phone] Director: Reed Mckeon MD BUN/CRE Ratio NOT REPORTED Normal 9-20 [facility] Comment on above: Performed By: #### C BC, BMPX ####[facility] [address] [place], [place] [phone] Director: Reed Mckeon MD Staging: NOT REPORTED Normal [facility] Comment on above: Performed By: #### C BC, BMPX ####[facility] [address] [place] [address] lab Director: Reed Mckeon MD CBCon 04-16-2018 Erythrocyte distribution width Ratio (RBC) 12.9 % Normal 11.8-14.4 [facility] Comment on above: Performed By: #### C BC, BMPX ####[facility] [address] [place] [address] lab Director: Reed Mckeon MD Hematocrit Volume Fraction (Bld) 33.9 % Low 36.3-47.1 [facility] Comment on above: Performed By: #### C BC, BMPX ####[facility] [address] [place] [address] lab Director: Reed Mckeon MD Hemoglobin mass conc (Bld) 10.6 g/dL Low 11.9-15.1 [facility] Comment on above: Performed By: #### C BC, BMPX ####[facility] [address] [place], [place] [phone] Director: Reed Mckeon MD MCH Entitic mass (RBC) 28.3 pg Normal 25.2-33.5 [facility] Comment on above: Performed By: #### C BC, BMPX ####[facility] [address] [place] [address] Lab Director: Reed Mckeon MD MCHC mass conc (RBC) 31.3 g/dL Normal 28.4-34.8 [facility] Comment on above: Performed By: #### C BC, BMPX ####[facility] [address] [place], [place] [phone] Director: Reed Mckeon MD MCV Entitic volume (RBC) 90.6 fL Normal 82.6-102.9 [facility] Comment on above: Performed By: #### C BC, BMPX ####[facility] [address] [place] [address] Lab Director: Reed Mckeon MD NRBC Automated 0.0 per 100 WBC Normal 0.0 [facility] Comment on above: Performed By: #### C BC, BMPX ####[facility] [address] [place] [address] Lab Director: Reed Mckeon MD Platelet mean volume Entitic volume (Bld) 9.8 fL Normal 8.1-13.5 [facility] Comment on above: Performed By: #### C BC, BMPX ####[facility] [address] [place] [address] Lab Director: Reed Mckeon MD Platelets #/vol (Bld) 257 10*3/uL Normal 138-453 [facility] Comment on above: Performed By: #### C SARWAT, BMPX ####[facility] [address] [place] [address] [phone] Director: Reed Mckeon MD RBC #/vol (Bld) 3.74 10*6/uL Low 3.95-5.11 [facility] Comment on above: Performed By: #### C SARWAT, BMPX ####[facility] [address] [place] [address] Lab Director: Reed Mckeon MD WBC #/vol (Bld) 5.8 10*3/uL Normal 3.5-11.3 [facility] Comment on above: Performed By: #### C BC, BMPX ####[facility] [address] [place] [address] [phone])[phone] Director: Reed Mckeon MD Cult,Respiratoryon 9 Cult,Respiratory Specimen Description .EXPECTORATED SPUTUM Special Requests NOT REPORTED Direct Exam >10 EPITHELIAL CELLS/LPF: SPECIMEN IS CONTAMINATED WITH ORAL PHARYNGEAL YOGESH AND IS UNACCEPTABLE FOR BACTERIAL CULTURE. PLEASE SUBMIT ANOTHER SPECIMEN. EVERETTE Mathews NOTIFIED Culture NOT REPORTED Report Status FINAL 04/16/2018 Normal [facility] Comment on above: Performed By: #### R ESPC ####[address] [place] [address] Lab Director: Reed Mkceon MD Troponinon 04-16-2018 Troponin I.cardiac mass conc ng/mL Normal 0-14 [facility] Comment on above: Result Comment: High Sensitivity Troponin values cannot be compared with other Troponin methodologies. Patients with high levels of Biotin oral intake (i.e >5mg/day) may have falsely decreased Troponin levels. Samples collected within 8 hours of biotin intake may require additional information for diagnosis. Performed By: #### T ROPI ####[facility] [place] [address] lab Director: Reed Mckeon MD Gram Stainon 04-15-2018 Microscopic observation Gram stain Nom (Unsp spec) Specimen Description .EXPECTORATED SPUTUM Special Requests NOT REPORTED Direct Exam DUPLICATE ORDER Report Status FINAL 04/15/2018 Normal [facility] Comment on above: Performed By: #### P PPVS #### [facility] [address] [place] [address] HCG Screen, Bloodon 04-16-19 19 HCG Qn Negative Normal NEG [facility] Comment on above: Result Comment: Spec imens with hCG levels near the threshold of the test (25 mIU/mL) may give a negative or indeterminate result. In such cases, another test should be performed with a new specimen in 48-72 hours. If early is suspected clinically in this setting, correlation with quantitative serum b-hCG level is suggested. [facility] has confirmed the use of plasma for this test. This has not been cleared or approved by the U.S. Food and Drug Administration. The FDA has determined that such clearance is not necessary. Performed By: #### P PPVS #### [facility] [address] [place], [place] [phone] Legionella Ag, Uron 04-16-19 19 Legionella Ag, [...] of this test. Report Status FINAL 04/15/2018 [facility] Comment on above: Performed By: #### U LAG ####[address] [phone] Director: Reed Mckeon MD [facility] Viral Panelon 9 Adenovirus Not Detected Normal [facility] Comment on above: Performed By: #### P PPVS #### [address] [address] Bordetella pertussis Not Detected Normal [facility] Comment on above: Performed By: #### P PPVS #### [address] [address] Chlamyd.pneumoniae Not Detected Normal [facility] Comment on above: Performed By: #### P PPVS #### [address] [address] Coronavirus 229E Not Detected Normal [facility] Comment on above: Performed By: #### P PPVS #### [address] [address] Coronavirus HKU1 Not Detected Normal [facility] Comment on above: Performed By: #### P PPVS #### [address] [address] Coronavirus NL63 Not Detected Normal [facility] Comment on above: Performed By: #### P PPVS #### [address] [address] Coronavirus OC43 Not Detected Normal [facility] Comment on above: Performed By: #### P PPVS #### [address] [address] Human Metapneumo Not Detected Normal [facility] Comment on above: Performed By: #### P PPVS #### [address] [address] Influenza A Not Detected Normal [facility] Comment on above: Performed By: #### P PPVS #### [address] [address] Influenza B Not Detected Normal [facility] Comment on above: Performed By: #### P PPVS #### [address] [address] Mycoplas.pneumoniae Not Detected Normal [facility] Comment on above: Result Comment: Perf ormed by multiplexed nucleic acid assay. Performed By: #### P PPVS #### [address] [address] Parainfluenza 1 Not Detected Normal [facility] Comment on above: Performed By: #### P PPVS #### [address] [address] Parainfluenza 2 Not Detected Normal [facility] Comment on above: Performed By: #### P PPVS #### [address] [address] Parainfluenza 3 Not Detected Normal [facility] Comment on above: Performed By: #### P PPVS #### [facility] [address] [place] [address] Parainfluenza 4 Not Detected Normal [facility] Comment on above: Performed By: #### P PPVS #### [address] [address] Resp Syncytial Virus Not Detected Normal [facility] Comment on above: Performed By: #### P PPVS #### [address] [address] Rhino/Enterovirus Not Detected Normal [facility] Comment on above: Performed By: #### P PPVS #### [address] [address] Influenza A H1 NOT REPORTED Normal [facility] Comment on above: Performed By: #### P PPVS #### [address] [address] Influenza A H1-2009 NOT REPORTED Normal [facility] Comment on above: Performed By: #### P PPVS #### [address] [address] Influenza A H3 NOT REPORTED Normal [facility] Comment on above: Performed By: #### P PPVS #### [address] [address] Source: .NASOPHARYNGEAL SWAB Normal [facility] Comment on above: Performed By: #### P PPVS #### [address] [address] Strep pneum Ag,CSF/Uron 03-0 Strep pneum Ag,CSF/Ur Specimen Descripti on .CLEAN CATCH URINE Special Requests NOT REPORTED Direct Exam NEGATIVE: Strep pneumoniae antigen not detected Report Status FINAL 04/15/2018 Normal [facility] Comment on above: Performed By: #### S PAG ####[address] [address] Lab Director: Reed Mckeon MD Troponinon 04-15-2018 Troponin I.cardiac mass conc NOT REPORTED Normal <0.03 [facility] Comment on above: Performed By: #### T ROPI ####[facility] [address] [place], [place] [id number] Lab Director: Reed Mckeon MD Troponin I.cardiac mass conc ng/mL Normal 0-14 [facility] Comment on above: Result Comment: High Sensitivity Troponin values cannot be compared with other Troponin methodologies. Patients with high levels of Biotin oral intake (i.e >5mg/day) may have falsely decreased Troponin levels. Samples collected within 8 hours of biotin intake may require additional information for diagnosis. Performed By: #### P PPVS #### [facility] [address] [place], [place] [phone] Troponin I.cardiac mass conc NOT REPORTED Normal <0.03 [facility] Comment on above: Performed By: #### P PPVS #### [facility] [address] [place], [place] [phone] XR CHEST PORTABLEon 04-16-19 XR CHEST PORTABLE EXAMINATION: SINGLE XRAY VIEW OF THE CHEST 04/15/2018 3:19 pm COMPARISON: 04/02/2018 HISTORY: ORDERING SYSTEM PROVIDED HISTORY: transferred from outlying facility due to PNA. POD#3 s/p lap sleeve gastrectomy. TECHNOLOGIST PROVIDED HISTORY: transferred from [facility] due to PNA. POD#3 s/p [...] Brando Agustin MD 04/15/18 Final result Normal [facility] FL ESOPHAGRAMon 04-14-2018 FL ESOPHAGRAM EXAMINATION: [...] persistent dysphagia and burning sensation. FINDINGS: Fluoroscopic roguer images were obtained of the upper abdomen [...] Steve Topete MD 04/14/18 Final result Normal [facility] Basic Metabolic Profon 04-13 (cont.) Normal [facility] Comment on above: Result Comment: Aver age GFR for 20-29 years old: 116 mL/min/1.73sq m Chronic Kidney Disease: <60 mL/min/1.73sq m Kidney failure: <15 mL/min/1.73sq m eGFR calculated using average adult body mass. Additional eGFR calculator available at: http://www.[employer].com/multiple_crcl_2012.htm Performed By: #### P PPVS #### [facility] [address] [place] [address] Anion gap molar conc 11 mmol/L Normal 9-17 [facility] Comment on above: Performed By: #### P PPVS #### [facility] [address] [place] [address] Calcium mass conc 8.8 mg/dL Normal 8.6-10.4 [facility] Comment on above: Performed By: #### P PPVS #### [address] [address] Chloride molar conc 104 mmol/L Normal 98-107 [facility] Comment on above: Performed By: #### P PPVS #### [address] [address] CO2 molar conc 24 mmol/L Normal 20-31 [facility] Comment on above: Performed By: #### P PPVS #### [facility] [address] [place] [address] Creatinine mass conc 0.68 mg/dL Normal 0.50-0.90 [facility] Comment on above: Performed By: #### P PPVS #### [address] [address] GFR, Amer >60 Normal >60 [facility] Comment on above: Performed By: #### P PPVS #### [facility] [address] [place] [address] GFR,non Amer >60 Normal >60 [facility] Comment on above: Performed By: #### P PPVS #### [address] [address] Glucose mass conc 90 mg/dL Normal 70-99 [facility] Comment on above: Performed By: #### P PPVS #### [address] [address] Potassium molar conc 4.4 mmol/L Normal 3.7-5.3 [facility] Comment on above: Performed By: #### P PPVS #### [address] [address] Sodium molar conc 139 mmol/L Normal 135-144 [facility] Comment on above: Performed By: #### P PPVS #### [address] [address] Urea nitrogen mass conc 5 mg/dL Low 6-20 [facility] Comment on above: Performed By: #### P PPVS #### [address] [address] BUN/CRE Ratio NOT REPORTED Normal 9-20 [facility] Comment on above: Performed By: #### P PPVS #### [address] [address] Staging: NOT REPORTED Normal [facility] Comment on above: Performed By: #### P PPVS #### [address] [address] CBCon 04-13-2018 Erythrocyte distribution width Ratio (RBC) 12.9 % Normal 11.8-14.4 [facility] Comment on above: Performed By: #### P PPVS #### [address] [address] Hematocrit Volume Fraction (Bld) 36.8 % Normal 36.3-47.1 [facility] Comment on above: Performed By: #### P PPVS #### [address] [address] Hemoglobin mass conc (Bld) 11.7 g/dL Low 11.9-15.1 [facility] Comment on above: Performed By: #### P PPVS #### [address] [address] MCH Entitic mass (RBC) 28.3 pg Normal 25.2-33.5 [facility] Comment on above: Performed By: #### P PPVS #### [address] [address] MCHC mass conc (RBC) 31.8 g/dL Normal 28.4-34.8 [facility] Comment on above: Performed By: #### P PPVS #### [address] [address] MCV Entitic volume (RBC) 88.9 fL Normal 82.6-102.9 [facility] Comment on above: Performed By: #### P PPVS #### [address] [address] NRBC Automated 0.0 per 100 WBC Normal 0.0 [facility] Comment on above: Performed By: #### P PPVS #### [address] [address] Platelet mean volume Entitic volume (Bld) 10.1 fL Normal 8.1-13.5 [facility] Comment on above: Performed By: #### P PPVS #### [address] [address] Platelets #/vol (Bld) 306 10*3/uL Normal 138-453 [facility] Comment on above: Performed By: #### P PPVS #### [address] [address] RBC #/vol (Bld) 4.14 10*6/uL Normal 3.95-5.11 [facility] Comment on above: Performed By: #### P PPVS #### [address] [address] WBC #/vol (Bld) 8.1 10*3/uL Normal 3.5-11.3 [facility] Comment on above: Performed By: #### P PPVS #### [address] [address] FL ESOPHAGRAMon 03-05-2019 FL ESOPHAGRAM EXAMINATION: SINGLE [...] Jordan Mejia MD 04/13/18 Final result Normal [facility] Basic Metabolic Profon 04-12 (cont.) Normal [facility] Comment on above: Result Comment: Aver age GFR for 20-29 years old: 116 mL/min/1.73sq m Chronic Kidney Disease: <60 mL/min/1.73sq m Kidney failure: <15 mL/min/1.73sq m eGFR calculated using average adult body mass. Additional eGFR calculator available at: http://www.[employer]/multiple_crcl_2012.htm Performed By: #### C SARWAT, BMP #### [facility] [address] [place] [address] [phone] Nursing Scheduler: Reed Mckeon MD Anion gap molar conc 16 mmol/L Normal 9-17 [facility] Comment on above: Performed By: #### C SARWAT, BMP #### [facility] [address] [place], [place] [phone] Nursing Scheduler: Reed Mckeon MD Calcium mass conc 8.9 mg/dL Normal 8.6-10.4 [facility] Comment on above: Performed By: #### C BC, BMP #### [facility] [address] [place] [address] [phone] Nursing Scheduler: Reed Mckeon MD Chloride molar conc 108 mmol/L High 98-107 [facility] Comment on above: Performed By: #### C BC, BMP #### [address] [address] Nursing Scheduler: Reed Mckeon MD CO2 molar conc 19 mmol/L Low 20-31 [facility] Comment on above: Performed By: #### C BC, BMP #### [facility] [address] [place] [address] Nursing Scheduler: Reed Mckeon MD Creatinine mass conc 0.62 mg/dL Normal 0.50-0.90 [facility] Comment on above: Performed By: #### C BC, BMP #### [address] [address] Nursing Scheduler: Reed Mckeon MD GFR, Amer >60 Normal >60 [facility] Comment on above: Performed By: #### C BC, BMP #### [address] [address] Nursing Scheduler: Reed Mckeon MD GFR,non Amer >60 Normal >60 [facility] Comment on above: Performed By: #### C BC, BMP #### [address] [address] Nursing Scheduler: Reed Mckeon MD Glucose mass conc 124 mg/dL High 70-99 [facility] Comment on above: Performed By: #### C BC, BMP #### [address] [address] Nursing Scheduler: Reed Mckeon MD Potassium molar conc 4.2 mmol/L Normal 3.7-5.3 [facility] Comment on above: Performed By: #### C BC, BMP #### [facility] [address] [place] [address] Nursing Scheduler: Reed Mckeon MD Sodium molar conc 143 mmol/L Normal 135-144 [facility] Comment on above: Performed By: #### C BC, BMP #### [facility] [address] [place] [address] Nursing Scheduler: Reed Mckeon MD Urea nitrogen mass conc 8 mg/dL Normal 6-20 [facility] Comment on above: Performed By: #### C BC, BMP #### [facility] [address] [place] [address] Nursing Scheduler: Reed Mckeon MD BUN/CRE Ratio NOT REPORTED Normal - [facility] Comment on above: Performed By: #### C BC, BMP #### [address] [address] Nursing Scheduler: Reed Mckeon MD Staging: NOT REPORTED Normal [facility] Comment on above: Performed By: #### C BC, BMP #### [address] [address] Nursing Scheduler: Reed Mckeon MD CBCon 04-12-2018 Erythrocyte distribution width Ratio (RBC) 12.6 % Normal 11.8-14.4 [facility] Comment on above: Performed By: #### C BC, BMP #### [address] [address] Nursing Scheduler: Reed Mckeon MD Hematocrit Volume Fraction (Bld) 44.2 % Normal 36.3-47.1 [facility] Comment on above: Performed By: #### C BC, BMP #### [address] [address] Nursing Scheduler: Reed Mckeon MD Hemoglobin mass conc (Bld) 13.8 g/dL Normal 11.9-15.1 [facility] Comment on above: Performed By: #### C BC, BMP #### [address] [address] Nursing Scheduler: Reed Mckeon MD MCH Entitic mass (RBC) 28.4 pg Normal 25.2-33.5 [facility] Comment on above: Performed By: #### C BC, BMP #### [address] [address] Nursing Scheduler: Reed Mckeon MD MCHC mass conc (RBC) 31.2 g/dL Normal 28.4-34.8 [facility] Comment on above: Performed By: #### C BC, BMP #### [address] [address] Nursing Scheduler: Reed Mckeon MD MCV Entitic volume (RBC) 90.9 fL Normal 82.6-102.9 [facility] Comment on above: Performed By: #### C BC, BMP #### [facility] [address] [place] [address] Nursing Scheduler: Reed Mckeon MD NRBC Automated 0.0 per 100 WBC Normal 0.0 [facility] Comment on above: Performed By: #### C BC, BMP #### [facility] [address] [place] [address] Nursing Scheduler: Reed Mckeon MD Platelet mean volume Entitic volume (Bld) 10.2 fL Normal 8.1-13.5 [facility] Comment on above: Performed By: #### C BC, BMP #### [facility] [address] [place] [address] Nursing Scheduler: Reed Mckeon MD Platelets #/vol (Bld) 299 10*3/uL Normal 138-453 [facility] Comment on above: Performed By: #### C BC, BMP #### [facility] [address] [place] [address] Nursing Scheduler: Reed Mckeon MD RBC #/vol (Bld) 4.86 10*6/uL Normal 3.95-5.11 [facility] Comment on above: Performed By: #### C BC, BMP #### [facility] [address] [place] [address] Nursing Scheduler: Reed Mckeon MD WBC #/vol (Bld) 18.0 10*3/uL High 3.5-11.3 [facility] Comment on above: Performed By: #### C BC, BMP #### [facility] [address] [place] [address] Nursing Scheduler: Reed Mckeon MD Surgical Pathologyon 019 Surgical Pathology (NOTE) [id number] [facility] [employer] CONSULTING PATHOLOGISTS [facility] [address] [place] [phone] SURGICAL PATHOLOGY CONSULTATION Patient Name: ANTOINETTE RECIO [facility] Rec: [id number] Path Number: [id number] Collected: 04/12/2018 Received: 04/12/2018 Reported: 04/13/2018 13:37 [...] with no areas of granularity or masses. [employer] sections 1cs. tm Microscopic Description The gastric mucosa shows intact architecture and no active or chronic inflammation. There is no histological evidence for Helicobacter. There is no intestinal metaplasia or dysplasia. The submucosa and muscularis propria show no histologic abnormality. Normal [facility] Comment on above: Performed By: #### P PPVS #### [facility] [address] [place] [address] [phone] Nicotineon 04-08-2018 9-IK-Dxtarach <2 Normal [facility] Comment on above: Performed By: #### C BC, PT, PTT, BMP #### [facility] [place] [address] Nursing Scheduler: Reed Mckeon MD #### ANICOT #### [facility] [address] [place] [address] [phone] Nursing Scheduler: Eduin Alvarez MD Cotinine <2 Normal [facility] Comment on above: Performed By: #### C BC, PT, PTT, BMP #### [facility] [address] [place] [address] [phone] Nursing Scheduler: Reed Mckeon MD #### ANICOT #### [facility] [address] [address] Nursing Scheduler: Eduin Alvarez MD Nicotine <2 Normal [facility] Comment on above: Result Comment: (NOT [...] positive. Test developed and characteristics determined by [facility]. See Compliance Statement B: [employer]/CS Performed by [facility], [address] [place] [id number] www.[employer], Eduin Alvarez MD, Lab. Director Performed By: #### C BC, PT, PTT, BMP #### [address] [address] Nursing Scheduler: Reed Mckeon MD #### ANICOT #### [facility] [address] [place] [address] Nursing Scheduler: Eduin Alvarez MD APTTon 04-02-2018 aPTT Coag time (Bld) 24.7 s Normal 20.5-30.5 [facility] Comment on above: Performed By: #### C BC, PT, PTT, BMP #### [address] [address] Nursing Scheduler: Reed Mckeon MD #### ANICOT #### [facility] [address] [place] [address] Nursing Scheduler: Eduin Alvarez MD Basic Metabolic Profon 04-02 (cont.) Normal [facility] Comment on above: Result Comment: Aver age GFR for 20-29 years old: 116 mL/min/1.73sq m Chronic Kidney Disease: <60 mL/min/1.73sq m Kidney failure: <15 mL/min/1.73sq m eGFR calculated using average adult body mass. Additional eGFR calculator available at: http://www.[employer]/multiple_crcl_2012.htm Performed By: #### C BC, PT, PTT, BMP #### [address] [address] Nursing Scheduler: Reed Mckeon MD #### ANICOT #### [facility] [address] [place] [address] Nursing Scheduler: Eduin Alvarez MD Anion gap molar conc 15 mmol/L Normal 9-17 [facility] Comment on above: Performed By: #### C BC, PT, PTT, BMP #### [facility] [address] [place] [address] Nursing Scheduler: Reed Mckeon MD #### ANICOT #### [facility] [address] [place], [place] [phone] Nursing Scheduler: Eduin Alvarez MD Calcium mass conc 9.6 mg/dL Normal 8.6-10.4 [facility] Comment on above: Performed By: #### C BC, PT, PTT, BMP #### [address] [address] Nursing Scheduler: Reed Mckeon MD #### ANICOT #### [facility] [address] [place], [place] [id number] Nursing Scheduler: Eduin Alvarez MD Chloride molar conc 102 mmol/L Normal 98-107 [facility] Comment on above: Performed By: #### C BC, PT, PTT, BMP #### [address] [address] Nursing Scheduler: Reed Mckeon MD #### ANICOT #### [facility] [address] [place], [place] [id number] Nursing Scheduler: Eduin Alvarez MD CO2 molar conc 23 mmol/L Normal 20-31 [facility] Comment on above: Performed By: #### C BC, PT, PTT, BMP #### [address] [address] Nursing Scheduler: Reed Mckeon MD #### ANICOT #### [facility] [address] [place], [place] [phone] Nursing Scheduler: Eduin Alvarez MD Creatinine mass conc 0.62 mg/dL Normal 0.50-0.90 [facility] Comment on above: Performed By: #### C BC, PT, PTT, BMP #### [address] [address] Nursing Scheduler: Reed Mckeon MD #### ANICOT #### [facility] [address] [place] [address] Nursing Scheduler: Eduin Alvarez MD GFR, Amer >60 Normal >60 [facility] Comment on above: Performed By: #### C BC, PT, PTT, BMP #### [address] [address] Nursing Scheduler: Reed Mckeon MD #### ANICOT #### [facility] [address] [place] [address] Nursing Scheduler: Eduin Alvarez MD GFR,non Amer >60 Normal >60 [facility] Comment on above: Performed By: #### C BC, PT, PTT, BMP #### [address] [address] Nursing Scheduler: Reed Mckeon MD #### ANICOT #### [address] [phone] Nursing Scheduler: Eduin Alvarez MD Glucose mass conc 86 mg/dL Normal 70-99 [facility] Comment on above: Performed By: #### C BC, PT, PTT, BMP #### [address] [address] Nursing Scheduler: Reed Mckeon MD #### ANICOT #### [facility] [address] [place] [address] Nursing Scheduler: Eduin Alvarez MD Potassium molar conc 4.2 mmol/L Normal 3.7-5.3 [facility] Comment on above: Performed By: #### C BC, PT, PTT, BMP #### [address] [address] Nursing Scheduler: Reed Mckeon MD #### ANICOT #### [facility] [address] [place] [address] Nursing Scheduler: Eduin Alvarez MD Sodium molar conc 140 mmol/L Normal 135-144 [facility] Comment on above: Performed By: #### C BC, PT, PTT, BMP #### [address] [address] Nursing Scheduler: Reed Mckeon MD #### ANICOT #### [facility] [address] [place], [place] [phone] Nursing Scheduler: Eduin Alvarez MD Urea nitrogen mass conc 15 mg/dL Normal 6-20 [facility] Comment on above: Performed By: #### C BC, PT, PTT, BMP #### [address] [phone] Nursing Scheduler: Reed Mckeon MD #### ANICOT #### [facility] [address] [place] [address] [phone] Nursing Scheduler: Eduin Alvarez MD BUN/CRE Ratio NOT REPORTED Normal 9-20 [facility] Comment on above: Performed By: #### C BC, PT, PTT, BMP #### [address] [phone] Nursing Scheduler: Reed Mckeon MD #### ANICOT #### [facility] [address] [place], [place] [phone] Nursing Scheduler: Eduin Alvarez MD Staging: NOT REPORTED Normal [facility] Comment on above: Performed By: #### C BC, PT, PTT, BMP #### [address] [address] Nursing Scheduler: Reed Mckeon MD #### ANICOT #### [facility] [address] [place], [place] [phone] Nursing Scheduler: Eduin Alvarez MD CBCon 04-02-2018 Erythrocyte distribution width Ratio (RBC) 12.0 % Normal 11.8-14.4 [facility] Comment on above: Performed By: #### C BC, PT, PTT, BMP #### [address] [phone] Nursing Scheduler: Reed Mckeon MD #### ANICOT #### [facility] [address] [place] [address] Nursing Scheduler: Eduin Alvarez MD Hematocrit Volume Fraction (Bld) 41.3 % Normal 36.3-47.1 [facility] Comment on above: Performed By: #### C BC, PT, PTT, BMP #### [address] [phone] Nursing Scheduler: Reed Mckeon MD #### ANICOT #### [address] [phone] Nursing Scheduler: Eduin Alvarez MD Hemoglobin mass conc (Bld) 13.7 g/dL Normal 11.9-15.1 [facility] Comment on above: Performed By: #### C BC, PT, PTT, BMP #### [address] [phone] Nursing Scheduler: Reed Mckeon MD #### ANICOT #### [facility] [address] [place] [address] [phone] Nursing Scheduler: Eduin Alvarez MD MCH Entitic mass (RBC) 28.4 pg Normal 25.2-33.5 [facility] Comment on above: Performed By: #### C BC, PT, PTT, BMP #### [address] [phone] Nursing Scheduler: Reed Mckeon MD #### ANICOT #### [facility] [address] [place] [address] Nursing Scheduler: Eduin Alvarez MD MCHC mass conc (RBC) 33.2 g/dL Normal 28.4-34.8 [facility] Comment on above: Performed By: #### C BC, PT, PTT, BMP #### [address] [phone] Nursing Scheduler: Reed Mckeon MD #### ANICOT #### [facility] [address] [place], [place] [phone] Nursing Scheduler: Eduin Alvarez MD MCV Entitic volume (RBC) 85.7 fL Normal 82.6-102.9 [facility] Comment on above: Performed By: #### C BC, PT, PTT, BMP #### [address] [phone] Nursing Scheduler: Reed Mckeon MD #### ANICOT #### [facility] [address] [place], [place] [phone] Nursing Scheduler: Eduin Alvarez MD NRBC Automated 0.0 per 100 WBC Normal 0.0 [facility] Comment on above: Performed By: #### C BC, PT, PTT, BMP #### [address] [phone] Nursing Scheduler: Reed Mckeon MD #### ANICOT #### [facility] [address] [place], [place] [phone] Nursing Scheduler: Eduin Alvarez MD Platelet mean volume Entitic volume (Bld) 9.4 fL Normal 8.1-13.5 [facility] Comment on above: Performed By: #### C BC, PT, PTT, BMP #### [address] [phone] Nursing Scheduler: Reed Mckeon MD #### ANICOT #### [facility] [address] [place] [address] Nursing Scheduler: Eduin Alvarez MD Platelets #/vol (Bld) 392 10*3/uL Normal 138-453 [facility] Comment on above: Performed By: #### C BC, PT, PTT, BMP #### [facility] [address] [place] [address] Nursing Scheduler: Reed Mckeon MD #### ANICOT #### [facility] [address] [place] [address] Nursing Scheduler: Eduin Alvarez MD RBC #/vol (Bld) 4.82 10*6/uL Normal 3.95-5.11 [facility] Comment on above: Performed By: #### C BC, PT, PTT, BMP #### [facility] [address] [place] [address] Nursing Scheduler: Reed Mckeon MD #### ANICOT #### [facility] [address] [place], [place] [phone] Nursing Scheduler: Eduin Alvarez MD WBC #/vol (Bld) 10.4 10*3/uL Normal 3.5-11.3 [facility] Comment on above: Performed By: #### C BC, PT, PTT, BMP #### [facility] [address] [place] [address] Nursing Scheduler: Reed Mckeon MD #### ANICOT #### [facility] [address] [place] [address] Nursing Scheduler: Eduin Alvarez MD PTon 04-02-2018 INR Coag RelTime (PPP) 1.0 {INR} Normal [facility] Comment on above: Result Comment: Therapeutic Range: Moderate Anticoagulant Intensity: INR = 2.0-3.0 High Anticoagulant Intensity: INR = 2.5-3.5 Performed By: #### C BC, PT, PTT, BMP #### [facility] [address] [place] [address] Nursing Scheduler: Reed Mckeon MD #### ANICOT #### [facility] [address] [place] [address] Nursing Scheduler: Eduin Alvarez MD Prothrombin time (PT) Coag time (PPP) 10.3 s Normal 9.0-12.0 [facility] Comment on above: Performed By: #### C BC, PT, PTT, BMP #### [facility] [address] [place] [address] Nursing Scheduler: Reed Mckeon MD #### ANICOT #### [facility] [address] [place] [address] Nursing Scheduler: Eduin Alvarez MD XR CHEST (2 VW)on [...] Mijares Jr., DO 04/02/18 Final result Normal [facility] H. pylori Detectionon 2017 H. pylori Detection Specimen Description .TISSUE, STOMACH BIOPSY Special Requests LOT [id number] EXP FEB 2018 Electroencephalographic Technician on this test is within expected limits. Direct Exam NEGATIVE Report Status FINAL 12/05/2017 Normal [facility] Comment on above: Performed By: #### H GENET #### [facility] [address] [place] [address] Surgical Pathologyon 018 Surgical Pathology (NOTE) [id number] [facility] [employer] CONSULTING PATHOLOGISTS [facility] [address] [place] [phone] SURGICAL PATHOLOGY CONSULTATION Patient Name: ANTOINETTE RECIO [facility] Rec: [id number] Path Number: [id number] Collected: 12/04/2017 Received: 12/04/2017 Reported: 12/07/2017 12:25 [...] tm Microscopic Description Microscopic examination performed. Normal [facility] Comment on above: Performed By: #### P PPVS #### [facility] [address] [place], [place] [phone] Vital Signs Date Time Vital Sign Value Performing Clinician Tahira luz 05-05-2023 15:13-0400 Body mass index (BMI) [Ratio] 29.32 kg/m2 Nieves Velasquez MD Work Phone: [facility] 05-05-2023 15:13-0400 Body weight 79.92 kg Nieves Velasquez MD Work Phone: [facility] 05-05-2023 15:13-0400 Diastolic blood pressure 84 mm[Hg] Nieves Velasquez MD Work Phone: [facility] 05-05-2023 15:13-0400 Systolic blood pressure 126 mm[Hg] Nieves Velasquez MD Work Phone: [facility] 11-30-2022 07:30-0400 Body temperature 97.9 [degF] PHYSICIAN NO [facility] 11-30-2022 07:30-0400 Diastolic blood pressure 104 mm[Hg] PHYSICIAN NO [facility] 11-30-2022 07:30-0400 Heart rate 68 /min PHYSICIAN NO [facility] 11-30-2022 07:30-0400 Respiratory rate 18 /min PHYSICIAN NO [facility] 11-30-2022 07:30-0400 SaO2% (BldA) [Mass fraction] 99 % PHYSICIAN NO [facility] 11-30-2022 07:30-0400 Systolic blood pressure 155 mm[Hg] PHYSICIAN NO [facility] 11-28-2022 14:23-0400 Body height 165.1 cm PHYSICIAN NO [facility] 11-27-2022 16:19-0400 Body weight 85.72 kg PHYSICIAN NO [facility] 11-27-2022 14:57-0400 Diastolic blood pressure 90 mm[Hg] PHYSICIAN NO [facility] 11-27-2022 14:57-0400 Heart rate 86 /min PHYSICIAN NO [facility] 11-27-2022 14:57-0400 Respiratory rate 18 /min PHYSICIAN NO [facility] 11-27-2022 14:57-0400 SaO2% (BldA) [Mass fraction] 98 % PHYSICIAN NO [facility] 11-27-2022 14:57-0400 Systolic blood pressure 142 mm[Hg] PHYSICIAN NO [facility] 11-27-2022 09:40-0400 Body height 165.1 cm PHYSICIAN NO [facility] 11-27-2022 09:40-0400 Body temperature 98.5 [degF] PHYSICIAN NO [facility] 11-27-2022 09:40-0400 Body weight 86.5 kg PHYSICIAN NO [facility] 05-13-2022 12:00-0400 Body temperature 98 [degF] PHYSICIAN NO [facility] 05-13-2022 12:00-0400 Diastolic blood pressure 79 mm[Hg] PHYSICIAN NO [facility] 05-13-2022 12:00-0400 Heart rate 102 /min PHYSICIAN NO [facility] 05-13-2022 12:00-0400 Respiratory rate 18 /min PHYSICIAN NO [facility] 05-13-2022 12:00-0400 SaO2% (BldA) [Mass fraction] 94 % PHYSICIAN NO [facility] 05-13-2022 12:00-0400 Systolic blood pressure 113 mm[Hg] PHYSICIAN NO [facility] 05-12-2022 09:00-0400 Body weight 79.83 kg PHYSICIAN NO [facility] 05-09-2022 14:19-0400 Body height 165.1 cm PHYSICIAN NO [facility] 05-09-2022 04:22-0400 Diastolic blood pressure 79 mm[Hg] PHYSICIAN NO [facility] 05-09-2022 04:22-0400 Systolic blood pressure 118 mm[Hg] PHYSICIAN NO [facility] 05-09-2022 01:14-0400 Heart rate 103 /min PHYSICIAN NO [facility] 05-09-2022 01:14-0400 Respiratory rate 18 /min PHYSICIAN NO [facility] 05-09-2022 01:14-0400 SaO2% (BldA) [Mass fraction] 97 % PHYSICIAN NO [facility] 05-08-2022 23:48-0400 Body height 165.1 cm PHYSICIAN NO [facility] 05-08-2022 23:48-0400 Body temperature 97.5 [degF] PHYSICIAN NO [facility] 05-08-2022 23:48-0400 Body weight 77.11 kg PHYSICIAN NO [facility] Encounters Encounter Date Encounter Type Care Provider Facility Start: 11-04-2023 End: 11-04-2023 ambulatory [facility] PLUNKETT Not Available Start: 09-15-2023 End: 09-15-2023 ambulatory [facility] Start: 08-12-2023 End: 08-12-2023 ambulatory [facility] Start: 06-16-2023 End: 06-16-2023 Emergency department patient visit NO PCP NO PCP [facility] Start: 06-03-2023 End: 06-03-2023 ambulatory NO PCP NO PCP [facility] Start: 05-05-2023 End: 05-05-2023 ambulatory [facility] Start: 05-05-2023 Encounter for gynecological examination (general) (routine) without abnormal findings [facility] Start: 05-05-2023 End: 05-05-2023 Office outpatient visit 25 minutes Nieves Velasquez MD [facility] Comment on above: GA: 8w4d Start: 05-05-2023 End: 05-05-2023 Patient encounter status Nieves Velasquez MD Work Phone: [facility] Start: 05-05-2023 End: 05-05-2023 [facility] Start: 05-05-2023 Encounter for gynecological examination (general) (routine) without abnormal findings [facility] Start: 04-16-2023 End: 04-16-2023 ambulatory [facility] Start: 04-14-2023 End: 04-14-2023 Initial care visit Lynn Deleon BRUSHER OPERATOR-UI DESIGNER Work Phone: [facility] Comment on above: First trimester preg bal (Primary Dx); HTN in , chronic; History of gestational diabetes in prior , currently ; Nausea/vomiting in Start: 04-14-2023 End: 04-14-2023 ambulatory [facility] Start: 03-30-2023 End: 03-31-2023 [facility] Start: 11-27-2022 End: 11-30-2022 Evaluation and management of inpatient PHYSICIAN NO FAMILY Facility:[facility] Start: 11-27-2022 End: 11-30-2022 Evaluation and management of inpatient PHYSICIAN NO FAMILY [facility] Work Phone: Start: 11-27-2022 ambulatory PHYSICIAN NO FAMILY Fac ility:[facility] Start: 05-09-2022 End: 05-13-2022 Evaluation and management of inpatient PHYSICIAN NO FAMILY Facility:[facility] Start: 05-09-2022 End: 05-13-2022 Evaluation and management of inpatient PHYSICIAN NO FAMILY [facility] Work Phone: Start: 12-19-2021 End: 12-20-2021 ambulatory [facility] Start: 03-17-2021 End: 03-18-2021 ambulatory NONE LISTED REQUEST Facility: Start: 06-11-2020 End: 06-14-2020 ambulatory REFERRED SELF Facility:[facility] Start: 06-10-2020 End: 06-10-[address] PRO BOSTON Facility: Start: 04-15-2018 End: 04-16-2018 Patient encounter procedure [facility] Start: 04-12-2018 End: 04-14-2018 Evaluation and management of inpatient [place] [facility] Start: 04-02-2018 Encounter for preprocedural respiratory examination [facility] Start: 04-02-2018 Encounter for other preprocedural examination [facility] Start: 04-02-2018 End: 04-07-2018 Patient encounter procedure [facility] Start: 12-04-2017 End: 12-04-2017 Patient encounter procedure [facility] Encounter for other preprocedural examination [facility] Procedures Date Procedure Procedure Detail [...] 04-14-2018 INITIATE OXYGEN THER APY PROTOCOL [facility]ER [facility] Start: 04-14-2018 NASAL CANNULA OXYGEN GR ISAIAS [...] Td Vaccines (3 - Td or Tdap) [facility] Start: 05-04-2024 Adult BMI Screening Adult BMI Screen ing [facility] Start: 05-04-2024 Depression Screening Depression Scre ening [facility] Start: 05-04-2024 Tobacco Screening Tobacco Screening [facility] Start: 04-13-2024 Tobacco Screening Tobacco Screening [facility] Start: 03-30-2024 Adult BMI Screening Adult BMI Screen ing [facility] Start: 06-03-2023 End: 06-03-2023 Patient encounter procedure 06/03/2023 3:15 PM EDT Routine [facility] [address] [place] [id number] [facility] Start: 05-05-2023 End: 05-05-2023 ambulatory 05/05/2023 3:00 PM EDT Initial [facility] [address] [place] [id number] Nieves Velasquez MD [address] [place] [address] [facility] Start: 04-16-2023 Subsequent hospital visit by physician 04/16/2023 1:30 PM EST Hospital Encounter [facility]ound [address] [place] [id number] Lynn Deleon, BRUSHER OPERATOR-UI DESIGNER [address] [place], [place] [id number] [facility] Start: 04-14-2023 End: 04-13-2024 US transvaginal for Ultrasound less than 14 weeks with transvaginal Imaging Routine First trimester Expected: 04/14/2023, Expires: 04/13/2024 [facility] Work Phone: Comment on above: Expected: 04/14/2023 , Expires: 04/13/2024 Start: 11-30-2022 [facility] Start: 11-28-2022 Lipid panel [facility] Start: 11-28-2022 [facility] Start: 11-27-2022 Referral to Rap Artist [facility] Start: 11-27-2022 Hospital admission [facility] Start: 11-27-2022 [facility] Start: 11-27-2022 Bacteria identified in Urine by Culture [facility] Start: 10-10-2022 Influenza vaccination Influenza Vacc ine [facility] Start: 05-13-2022 [facility] Start: 05-09-2022 Hospital admission [facility] Start: 04-20-2016 Screening for malign ant neoplasm of cervix Pap Smear [facility] Start: 04-20-2013 Adult BMI Follow Up Plan Adult BMI Follow Up Plan [facility] Start: 2007 Depression Screening Depression Scre ening [facility] End: 04-13-2024 Bacteria identified in Urine by Culture Urine Culture Microbiology Routine First trimester 1 Occurrences starting 04/14/2023 until 04/13/2024 [facility] Comment on above: 1 Occurrences starti ng 04/14/2023 until 04/13/2024 End: 04-13-2024 CBC panel - Blood by Automated count CBC without diff Lab Routine First trimester 1 Occurrences starting 04/14/2023 until 04/13/2024 [facility] Comment on above: 1 Occurrences starti ng 04/14/2023 until 04/13/2024 End: 05-04-2024 Chlamydia/GC by PCR ThinPrep fluid Chlamydia/GC by PCR ThinPrep fluid Microbiology Routine Screening for STD (sexually transmitted disease) 1 Occurrences starting 05/05/2023 until 05/04/2024 [facility] Comment on above: 1 Occurrences starti ng 05/05/2023 until 05/04/2024 End: 04-13-2024 Comprehensive metabolic 2000 panel - Serum or Plasma Comprehensive metabolic panel Lab Routine First trimester HTN in , chronic 1 Occurrences starting 04/14/2023 until 04/13/2024 [facility] Comment on above: 1 Occurrences starti ng 04/14/2023 until 04/13/2024 End: 04-13-2024 Creatinine clearance Creatinine clearance Lab Routine First trimester HTN in , chronic 1 Occurrences starting 04/14/2023 until 04/13/2024 [facility] Comment on above: 1 Occurrences starti ng 04/14/2023 until 04/13/2024 End: 05-04-2024 Cytopathology procedure, preparation of smear, genital source Pap Smear Pathology and Cytology Routine Smear, vaginal, as part of routine gynecological examination 1 Occurrences starting 05/05/2023 until 05/04/2024 [employer] Work Phone: Comment on above: 1 Occurrences starti ng 05/05/2023 until 05/04/2024 End: 04-13-2024 Drug Screen, Urine Drug Screen, Urine Lab Routine First trimester 1 Occurrences starting 04/14/2023 until 04/13/2024 [facility] Comment on above: 1 Occurrences starti ng 04/14/2023 until 04/13/2024 End: 04-13-2024 Glucose 1h post 50g load Glucose 1h post 50g load Lab Routine First trimester History of gestational diabetes in prior , currently 1 Occurrences starting 04/14/2023 until 04/13/2024 [facility] Comment on above: 1 Occurrences starti ng 04/14/2023 until 04/13/2024 End: 04-13-2024 Hepatitis panel, acute Hepatitis panel, acute Lab Routine First trimester 1 Occurrences starting 04/14/2023 until 04/13/2024 [facility] Comment on above: 1 Occurrences starti ng 04/14/2023 until 04/13/2024 End: 04-13-2024 HIV 1&2 AB/AG Screen (P24 AG) HIV 1&2 AB/AG Screen (P24 AG) Lab Routine First trimester 1 Occurrences starting 04/14/2023 until 04/13/2024 [facility] Comment on above: 1 Occurrences starti ng 04/14/2023 until 04/13/2024 End: 04-13-2024 LDH LDH Lab Routine First trimester HTN in , chronic 1 Occurrences starting 04/14/2023 until 04/13/2024 [facility] Comment on above: 1 Occurrences starti ng 04/14/2023 until 04/13/2024 Patient Education Depression, Ad ult (DC) [facility] DC Instructions [facility] Work Phone: Patient referral [facility] Work Phone: End: 04-13-2024 Rubella IGG immune status Rubella IGG immune status Lab Routine First trimester 1 Occurrences starting 04/14/2023 until 04/13/2024 [facility] Comment on above: 1 Occurrences starti ng 04/14/2023 until 04/13/2024 End: 04-13-2024 Syphilis Total(Unknown Syphilis Status) Syphilis Total(Unknown Syphilis Status) Lab Routine First trimester 1 Occurrences starting 04/14/2023 until 04/13/2024 [facility] Comment on above: 1 Occurrences starti ng 04/14/2023 until 04/13/2024 End: 04-13-2024 Type and screen Type and screen Blood Bank Routine First trimester 1 Occurrences starting 04/14/2023 until 04/13/2024 [facility] Comment on above: 1 Occurrences starti ng 04/14/2023 until 04/13/2024 End: 04-13-2024 Urate [Mass/volume] in Serum or Plasma Uric acid Lab Routine First trimester HTN in , chronic 1 Occurrences starting 04/14/2023 until 04/13/2024 [email or web address] Comment on above: 1 Occurrences starti ng 04/14/2023 until 04/13/2024 End: 04-13-2024 Urinalysis Urinalysis Lab Routine First trimester 1 Occurrences starting 04/14/2023 until 04/13/2024 [facility] Comment on above: 1 Occurrences starti ng 04/14/2023 until 04/13/2024 End: 04-13-2024 Urine protein creatinine ratio Urine protein creatinine ratio Lab Routine First trimester HTN in , chronic 1 Occurrences starting 04/14/2023 until 04/13/2024 [email or web address] Comment on above: 1 Occurrences starti ng 04/14/2023 until 04/13/2024 End: 04-13-2024 Varicella zoster antibody, IgG Varicella zoster antibody, IgG Lab Routine First trimester 1 Occurrences starting 04/14/2023 until 04/13/2024 [facility] Comment on above: 1 Occurrences starti ng 04/14/2023 until 04/13/2024 Immunizations Immunization Date Immunization Notes Care Provider Gretel grissom 12-21-2020 tetanus toxoid, redu lucy diphtheria toxoid, and acellular pertussis vaccine, adsorbed PHYSICIAN NO [facility] 09-02-2019 tetanus toxoid, redu lucy diphtheria toxoid, and acellular pertussis vaccine, adsorbed PHYSICIAN NO [facility] Payers Date Payer Category Payer Self-pay [id number] 2022 Medicaid [employer] [place] [id number] 2022-Rust [phone] [place], [place] [address] [id number] 2021 Medicaid [id number] 2018 Unknown [id number] 2017 Private Health Insurance [id number] 1995 Unknown [id number] 2.16.840.1.371731.3.579.2. 175 1995 Unknown [id number] 2.16.840.1.201090.3.579.2. 175 1995 Unknown [id number] 2.16.840.1.946665.3.579.2. 175 1995 Unknown [id number] 2.16.840.1.136450.3.579.2. 175 1995 Unknown [id number] 2.16.840.1.214312.3.579.2. 175 1995 Unknown [id number] 2.16.840.1.906099.3.579.2. 593 1995 Unknown [id number] 2.16.840.1.036431.3.579.2. 593 1995 Unknown [id number] 2.16.840.1.922834.3.579.2. 647 1995 Unknown [id number] 2.16.840.1.867760.3.579.2. 1286 1995 Unknown [id number] 2.16.840.1.924879.3.579.2. 1286 1995 Unknown [id number] 2.16.840.1.047005.3.579.2. 1286 1995 Unknown [id number] 2.16.840.1.289330.3.579.2. 1286 1995 Unknown [id number] 2.16.840.1.344328.3.579.2. 1286 1995 Unknown [id number] 2.16.840.1.908872.3.579.2. 1286 1995 Unknown [id number] 2.16.840.1.727426.3.579.2. 1286 1995 Unknown [id number] 2.16.840.1.079735.3.579.2. 1286 1995 Unknown [id number] 2.16.840.1.749512.3.579.2. 1286 1995 Unknown [id number] 2.16.840.1.690233.3.579.2. 1286 1995 Unknown [id number] 2.16.840.1.290463.3.579.2. 1286 1995 Unknown [id number] 2.16.840.1.803639.3.579.2. 1286 1995 Unknown [id number] 2.16.840.1.481914.3.579.2. 1259 1959 Self-pay [id number] 1959 Unknown [id number] Medicaid [place] Advantage [id number] Unknown [id number] 2.16.840.1.829988.3.579.2. 531 Unknown [id number] 2.16.840.1.291840.3.579.2. 531 Unknown [id number] 2.16.840.1.843345.3.579.2. 531 Social History Date Type Detail Facility Start: 05-09-2022 End: 11-27-2022 Tobacco smoking status [facility] Never smoked tobacco (finding) [facility] Start: 1995 Sex Assigned At Female F [facility] Start: 11-28-2022 End: 03-24-2023 Tobacco smoking status NMIS Smoker (finding) [facility] Start: 04-14-2023 Tobacco smoking stat us [facility] Ex-smoker [facility] End: 03-24-2023 History of tobacco use Cigarette Smoker [facility] Start: 03-22-2020 End: 04-14-2023 Cigarettes smoked current (pack per day) - Reported 0.3 [facility] Start: 04-14-2023 Tobacco use and exposure Smokeless tobacco non-user [facility] Start: 04-14-2023 End: 05-05-2023 Alcohol intake Current non-drinker of alcohol (finding) [facility] Start: 03-22-2020 End: 04-14-2023 Tobacco use panel [facility] Childcare Unknown [facility] Start: 04-14-2023 Alcohol Comment SOBER 3 MONTHS [facility] Start: 1995 Sex Assigned At Not on file P [facility] How hard is it for y ou to pay for the very basics like food, housing, medical care, and heating Somewhat hard [facility] Start: 03-20-2023 [facility] Goals Date Patient Goal Desired Activity /State Functional Status Date Assessment Result Facility 11-30-2022 Functional status Patient at Baseline [facility] Work Phone: 05-13-2022 Functional status Patient at Baseline [facility] Work Phone: Mental Status Date Assessment Result Facility 11-30-2022 Cognitive function Cognitive Sta tus Patient at Baseline [facility] Work Phone: 05-13-2022 Cognitive function Cognitive Sta tus Patient at Baseline [facility] Work Phone: Clinical Notes 06-14-2020 [...] No recent concerns documented in this encounter [employer] 04-14-2023 History of Presen t illness Narrative OB Intake Video Visit 27 y.o. at unknown gestation contacted through [employer] for OB intake video visit. verified and verbal consent obtained for video visit. Patient and provider both currently located in the [facility]. This was a planned . [...] hx alcohol abuse. 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 Discussed testing. Pt declines all. The patient reports that there is not domestic violence in her life. Discussed exercise, diet and weight gain. Current BMI 28. Discussed smoking, alcohol use and drug use. Quit vaping / smoking 3 weeks ago, sober from alcohol 3 months. Discussed early danger signs and when/how to notify provider. Reviewed CNM / UI DESIGNER care, collaboration & referral to HOUSE MOVING SUPERVISOR as needed. Reviewed course of care. Discussed CDC recommendation for exclusive for the first 6 months. Patient has not been covid vaccinated. Discussed recommendations in . Patient is taking an OTC vitamin. Will offer flu shot in the office. All questions answered. Educational materials provided through [employer]. Ultrasound and labs ordered. Appointment scheduled for initial OB visit with provider on 05/05/23. MARISOL Mabry 04/14/23 9002 [id number]. Chronic HTN with no meds or PCP-baseline labs ordered. HX GDMA1-EARLY 1 HR GTT. Last pap was 3 years negative. Pt declined genetic testing. Stopped tobacco use and vaping 3 weeks ago.marino from alcohol for 3 months. documented in this encounter [facility] 04-14-2023 Miscellaneous Notes Addended by: LYNN DELEON on: 04/14/2023 03:15 PM Modules accepted: Orders documented in this encounter [facility] 04-14-2023 Note Addended by: LYNN DELEON on: 04/14/2023 03:15 PM Modules accepted: Orders [facility] 11-30-2022 Discharge summary Note Date/Time November 30, 2022 10:14am [facility] [address] [place] [address] Discharge Summary Signed Patient: Antoinette Recio MR#: [id number] : 1995 Acct:[id number] Age/Sex: 27 / F Adm Date: 3 Loc: Room: [address] [place] [address]: Dar Nation MD Copies to: [...] Instructions: Important Contact Information You can call [facility] at [phone] any time day or night if you have emergent questions or question regarding discharge instructions. If at any time you are feeling an increase inyour psychiatric symptoms, call your physician or behavioral healthcare provider. If any time you have thoughts of harming yourself or others contact one of the following: Call (available 01/09) Crisis Text Line (available 01/09) text 4HOPE to [phone] [facility] (available 8 a.m. Midnight) call [phone] ([phone]) Prescriptions: New venlafaxine 75 mg Capsule,Extended Release [...] signed by Dar Nation MD> 11/30/22 1016 [facility] Work Phone: 1(216) 655-110710-22-2023 Hospital Discharge instructions Additional Instructions Important Contact Information You can call [facility] at [phone] any time day or night if you have emergent questions or question regarding discharge instructions. If at any time you are feeling an increase in your psychiatric symptoms, call your physician or behavioral healthcare provider. If any time you have thoughts of harming yourself or others contact one of the following: Call (available 01/09) Crisis Text Line (available 01/09) text 4HOPE to [phone] [facility] (available 8 a.m. Midnight) call [phone] ([phone]) [facility] Work Phone: 1(763) 423-320010-21-2023 Progress note Author [facility] November 29, 2022 11:21am Note Date/Time November 29, 2022 1 1:22am [facility] [address] [place] [address] Psychiatry Progress Note Signed Patient: Antoinette Recio MR#: [id number] : 1995 Acct:[id number] Age/Sex: 27 / F Adm Date: 3 Loc: Room: [address] [place] [address] Type : ADM IN Attending Dr: Dar [...] signed by Dar Nation MD> 11/29/22 1121 [facility] Work Phone: 1(754) 483-262010-20-2023 History and physical note Author Dar Naiton [facility] November 28, 2022 11:45am Note Date/Time November 28, 2022 1 1:45am [facility] [address] [place] [address] Psychiatry H&P Signed Patient: Antoinette Recio MR#: [id number] : 1995 Acct:[id number] Age/Sex: 27 / F Adm Date: 3 Loc: Room: [address] [place] [address] Type: ADM IN Attending Dr: Dar Nation [...] homicidality, reported suicidality Insight: fair Judgment: fair [facility] Medical History Clavicle fracture Miscarriage Surgical [...] Turbid A Urine pH 5.0 Ur Specific [place] 1.023 Urine Protein Trace H Urine Glucose [...] <Electronically signed by Dar Nation MD> 11/28/22 1146 [facility] Work Phone: 1(944) 839-291604-04-2023 Discharge summary Author Dar Nation [facility] May 13, 2022 12:29pm Note Date/Time May 13, 2022 12:2 9pm [facility] [address] [place] [address] Discharge Summary Signed Patient: Antoinette Recio MR#: [id number] : 1995 Acct:[id number] Age/Sex: 27 / F Adm Date: 3 Loc: Room: [address] [place] [address]: Tiana Smith MD Copies to: [...] past year Living: House with parents in [place] Employment: None Patient was treated with Effexor. [...] restrictions. Instructions: Depression, Adult (DC), [facility] DC Instructions Prescriptions: New venlafaxine [...] 30 Days Qty: 30 0RF Follow Up: [facility] [Outside] (Please call to establish care with a primary provider for any medical needs. ) [facility] [Outside] [facility] [Outside] - 05/14/22 11:30 am (embedded software manager: Thursday05/14/22 @ 11:30am Intake: Thursday05/20/22 @ 12:30pm Please bring a copy of your photo ID, insurance card, and proof of household income. Nurse: 05/22/22 @ 2:00pm with Anabel. Please see attached instruction sheet Psychiatry: Thursday05/27/22 @ 9:30am with Dr. Goetz) Documented By: Dar Nation MD 05/13/221227 Signed By: <Electronically signed by Dar Nation MD> 05/13/22 1229 [facility] Work Phone: 1(566) 645-814804-03-2023 Progress note Author Dar Nation [facility] May 12, 2022 3:21pm Note Date/Time May 12, 2022 3:21 pm [facility] [address] [place] [address] Psychiatry Progress Note Signed Patient: Antoinette Recio MR#: [id number] : 1995 Acct:[id number] Age/Sex: 27 / F Adm Date: 3 Loc: Room: [address] [place] [address] Type : ADM IN Attending Dr: Tiana Smith MD Copies to: ~ Date of Service: 05/12/2022 Subjective Subjective Narrative: Patient continues to move in the right direction with her's current [facility] protocol and antidepressant medication regimen. [...] <Electronically signed by Dar Nation MD> 05/12/22 1526 [facility] Work Phone: 1(513) 522-779104-02-2023 Progress note Author Ji anderson [facility] May 11, 2022 8:50am Note Date/Time May 11, 2022 8:49 am [facility] [address] [place] [address] Psychiatry Progress Note Signed Patient: Antoinette Recio MR#: [id number] : 1995 Acct:[id number] Age/Sex: 27 / F Adm Date: 3 Loc: Room: [address] [place] [address] Type : ADM IN Attending Dr: Tiana Smith MD Copies to: ~ Date of Service: 05/11/2022 Subjective Subjective Narrative: Overnight: Patient was trying the unit doors trying to get out.? She was also starting to get mean.? She stated to this hand sign writer, get out of my face, leave [...] and laid down on the bed.? This hand sign writer gave report to the Special Care Unit nurse and then this hand sign writer collected the patient's belongings and took [...] explained Documented By: Ji Smith MD 3 [id number] Signed By: <Electronically signed by Ji Smith MD> 05/11/22 0850 [facility] Work Phone: 1(691) 559-212204-01-2023 Progress note Author Ji anderson [facility] May 10, 2022 5:02pm Note Date/Time May 10, 2022 10:2 5am [facility] [address] [place] [address] Psychiatry Progress Note Signed with Addenda Patient: Antoinette Recio MR#: [id number] : 1995 Acct:[id number] Age/Sex: 27 / F Adm Date: 3 Loc: Room: [address] [place] [address] Type : ADM IN Attending Dr: Tiana [...] Ji Smith MD> 05/10/22 1025 [facility] Work Phone: 1(660) 950-847503-31-2023 History and physical note Author Ji anderson [facility] May 09, 2022 12:28pm Note Date/Time May 09, 2022 12: 28pm [facility] [address] [place] [address] Psychiatry H&P Signed Patient: Antoinette Recio MR#: [id number] : 1995 Acct:[id number] Age/Sex: 27 / F Adm Date: 3 Loc: Room: [address] [place] [address] Type: ADM IN Attending Dr: Tiana Smith [...] past year Living: House with parents in [place] Employment: None Review of symptoms: Constitutional: Denies [...] Appearance Clear Urine pH 5.5 Ur Specific [place] 1.013 Urine Protein 30 H Urine Glucose [...] <Electronically signed by Ji Smith MD> 05/09/22 [facility]8 [facility] Work Phone: 1(592) 324-193905-07-2021 Note [id number]:[address] [place] [address] 06-14-2020 [id number]:[address] [place], [place] [address]Evaluation note* Diagnosis Onset Date Resolution Status Suicidal ideation acute [facility] Work Phone: Evaluation note* Diagnosis Onset Date Resolution Status Alcohol use disorder acute Major depressive disorder, recurrent, moderate acute Suicidal ideation acute [facility] Work Phone: Evaluation note* Diagnosis Onset Date Resolution Status Suicidal ideation acute Urinary tract infection acut e [facility] Work Phone: Evaluation note* Diagnosis Onset Date Resolution Status Alcohol use disorder acute Major depressive disorder, recurrent, moderate acute Suicidal ideation acute Urinary tract infection acut e [facility] Work Phone: Evaluation note* Diagnosis First [...] in this encounter [facility] Author Ji anderson [facility] May 09, 2022 12:28pm Note Date/Time May 09, 2022 12: 28pm [facility] [address] [place] [address] Psychiatry H&P Signed Patient: Antoinette Rceio MR#: [id number] : 1995 Acct:[id number] Age/Sex: 27 / F Adm Date: 3 Loc: Room: [address] [place] [address] Type: ADM IN Attending Dr: Tiana Smith [...] past year Living: House with parents in [place] Employment: None Review of symptoms: Constitutional: Denies [...] Appearance Clear Urine pH 5.5 Ur Specific [place] 1.013 Urine Protein 30 H Urine Glucose [...] signed by Ji Smith MD> 05/09/22 1228 [facility] Work Phone: Hospital Discharge instructions Additional Instructions Regular diet. No activity restrictions.[facility] Work Phone: Instructions* Attachments The following attachments cannot be sent through Care Everywhere. * Activity during (Belgian) * How to Adapt to Physical Changes During (Belgian) * Nutrition before and during (Belgian) * care (Belgian) documented in this encounterPro[facility] SystemInstructionsNot on file documented in this encounterProSelect Medical [facility] SystemProgress note Author Ji anderson [facility] May 10, 2022 5:02pm Note Date/Time May 10, 2022 10:2 5am [facility] [address] [place] [address] Psychiatry Progress Note Signed with Esmer Patient: Antoinette Recio MR#: [id number] : 1995 Acct:[id number] Age/Sex: 27 / F Adm Date: 3 Loc: Room: [address] [place] [address] Type : ADM IN Attending Dr: Tiana [...] Ji Smith MD> 05/10/22 1025 [facility] Work Phone: Progress note Author Ji anderson [facility] May 11, 2022 8:50am Note Date/Time May 11, 2022 8:49 am [facility] [address] [place] [address] Psychiatry Progress Note Signed Patient: Antoinette Recio MR#: [id number] : 1995 Acct:[id number] Age/Sex: 27 / F Adm Date: 3 Loc: 1S Room: [address] [place] [address] Type : ADM IN Attending Dr: Tiana Smith MD Copies to: ~ Date of Service: 05/11/2022 Subjective Subjective Narrative: Overnight: Patient was trying the unit doors trying to get out.? She was also starting to get mean.? She stated to this hand sign writer, get out of my face, leave [...] and laid down on the bed.? This hand sign writer gave report to the Special Care Unit nurse and then this hand sign writer collected the patient's belongings and took [...] signed by Ji Smith MD> 05/11/22 0850 [facility] Work Phone: Progress note Author Dar Nation [facility] May 12, 2022 3:21pm Note Date/Time May 12, 2022 3:21 pm [facility] [address] [place] [address] Psychiatry Progress Note Signed Patient: Antoinette Recio MR#: [id number] : 1995 Acct:[id number] Age/Sex: 27 / F Adm Date: 3 Loc: Room: [address] [place] [address] Type : ADM IN Attending Dr: Tiana [...] Dar Nation MD> 05/12/22 1521 [facility] Work Phone: Summary Purpose Family [...] section and content) DATE CREATED AUTHOR 2018 [facility] DATE CREATED AUTHOR AUTHOR'S ORGANIZ ATION 07/17/2020 [facility] DATE CREATED AUTHOR AUTHOR'S ORGANIZ ATION 03/19/2021 [facility] DATE CREATED AUTHOR AUTHOR'S ORGANIZ ATION 06/15/2021 [facility] DATE CREATED AUTHOR AUTHOR'S ORGANIZ ATION 12/21/2021 [facility] DATE CREATED AUTHOR AUTHOR'S ORGANIZ ATION 02/23/2023 [facility] DATE CREATED AUTHOR AUTHOR'S ORGANIZ ATION 06/05/2023 [facility] DATE CREATED AUTHOR AUTHOR'S ORGANIZ ATION 08/13/2023 [facility] DATE CREATED AUTHOR AUTHOR'S ORGANIZ ATION 09/17/2023 [facility] DATE CREATED AUTHOR AUTHOR'S ORGANIZ ATION 11/06/2023 [facility] Special[facility] EPIC Care Teams [...] MD Admit Provider, Attending Pr ovider Active Housekeeping Room Inspector Relationship Specialty Start Date End Date No Pcp, [place] [address] PCP - General Family Medicine 03/30/23 Housekeeping Room Inspector Relationship Specialty Start Date End Date [place] [address] PCP - General Family Medicine 03/30/23 Goals [...] BE BASED ON THE PRIMARY CLINICAL RECORDS. PT [employer] [facility]. provides no warranty or guarantee of the accuracy or completeness of information in this document.
[2023-11-10 19:14] LABS: Alanine Aminotransferase 15 U/L (14-59); Aspartate Amino Transferase 23 U/L (15-37); Estimated GFR (African America >60 (>=60 mL/min/1.73m^2); Estimated GFR (Non-African Ame >60 (>=60 mL/min/1.73m^2); Uric Acid 6.1 mg/dL (2.6-6.0)
[2023-11-10] MEDS: 0.9 % SODIUM CHLORIDE 1,000 ML 125 ML IV (19:19)
[2023-11-10] MEDS: BETAMETHASONE ACE/BETAMETHASONE SOD PHOS 30 MG/5 ML 12 MG IM (19:20)
[2023-11-10] MEDS: AMPICILLIN SODIUM 2,000 MG in 0.9 % SODIUM CHLORIDE 100 ML 200 MG IV (19:20)
[2023-11-10 19:27] LABS: Partial Thromboplastin Time 23.6 sec (22.3-36.2)
[2023-11-10 19:28] LABS: Fibrinogen 281 mg/dL (200-400)
--- NOTE | 2023-11-10 19:47 | PC.NURSE ---
1830: Patient arrives from ER per cart and admitted to rm 255. Oriented to room and assessment completed. C/O spotty vision since this afternoon and denies nausea, denies headache at present. DTR's 2+ bilateral patellar and radial. No edema noted on bilateral legs or hands. 1839- saline lock started in left forearm per Silvana Otto RN. Plan of care discussed. 1854: Dr Mathew in unit and orders received. 1914- Iv fluids started and antibiotic started. steroid given IM. Report given to Terrence Cruz RN. Seizure precautions initiated. Ana Pretty RN
[2023-11-10] MEDS: MAGNESIUM-BOLUS FROM THE BAG- 40 GM/1,000 ML IV.SOLN IV (21:01)
[2023-11-10] MEDS: MAGNESIUM SULFATE IN WATER 40 GM/1,000 ML IV.SOLN IV (21:02)
[2023-11-10] MEDS: LABETALOL HCL 20 MG/4 ML SYRINGE IVP (21:02)
[2023-11-10] MEDS: 0.9 % SODIUM CHLORIDE 1,000 ML 50 ML IV (21:03)
[2023-11-10] MEDS: OXYTOCIN/0.9 % SODIUM CHLORIDE 10 UNITS/500 ML PLAST..BAG 6 UNIT IV (22:10)
[2023-11-10] MEDS: AMPICILLIN SODIUM 1,000 MG in 0.9 % SODIUM CHLORIDE 50 ML 100 MG IV (23:26)
[2023-11-11] VITALS (82 sets, daily range): BP systolic 88–149; BP diastolic 49–95; PULSE 71–123; TEMP 35.5–36.9
[2023-11-11] MEDS: 0.9 % SODIUM CHLORIDE 1,000 ML 500 ML IV (00:40)
[2023-11-11] MEDS: ROPIVACAINE HCL/PF 400 MG/200 ML PREMIX 8 MG EPIDURAL (00:56)
[2023-11-11] MEDS: ONDANSETRON PF 4 MG/2 ML VIAL IV (03:27)
[2023-11-11] MEDS: AMPICILLIN SODIUM 1,000 MG in 0.9 % SODIUM CHLORIDE 50 ML 100 MG IV (03:36)
[2023-11-11] MEDS: OXYTOCIN/0.9 % SODIUM CHLORIDE 20 UNITS/1,000 ML PLAST..BAG 125 UNIT IV (06:13)
--- NOTE | 2023-11-11 06:17 | PM.OBPRCVD ---
Procedure Intrapartal events: None Induction method: per pitocin protocol Delivery augmentation: rupture of membranes and pitocin Delivery monitor: external FHT and external uterine Route of delivery: Episiotomy Description: none L&D Laceration Description: none Estimated blood loss (mL): 300 Anesthesia type: Epidural Disposition: floor Delivery date: 11/11/23 Gender: male presentation: vertex Placental delivery description: Spontaneous cord description: 3 Vessels and True Knot
[2023-11-11] MEDS: IBUPROFEN 600 MG TABLET PO ×2 (13:03→23:09)
[2023-11-11] MEDS: MAGNESIUM SULFATE IN WATER 40 GM/1,000 ML IV.SOLN IV (15:36)
[2023-11-12] MEDS: LABETALOL HCL 200 MG TABLET PO ×3 (00:56→23:52)
[2023-11-12] MEDS: 0.9 % SODIUM CHLORIDE 1,000 ML 50 ML IV (04:00)
[2023-11-12 04:09] VITALS: BP 105/59; PULSE 73; TEMP 35.6
[2023-11-12 07:23] LABS: Basophils Percent Auto 0.1 % (0.2-2.0); Eosinophils Absolute Auto 0.1 10^3/uL (0.0-0.7); Eosinophils Percent Auto 0.4 % (0.9-7.0); Immature Granulocytes Abs Auto 0.11 10^3/uL (0.00-0.03); Immature Granulocytes Pct Auto 0.8 % (0.0-0.5); Lymphocytes Absolute Auto 1.4 10^3/uL (1.2-3.8); Lymphocytes Percent Auto 10.2 % (20.5-60.0); Mean Corpuscular HGB Conc 30.4 g/dL (29.9-35.2); Mean Corpuscular Volume 85.5 fL (81.0-99.0); Mean Platelet Volume 9.3 fL (9.5-13.5); Monocytes Absolute Auto 0.7 10^3/uL (0.3-0.8); Monocytes Percent Auto 5.4 % (1.7-12.0); Neutrophils Absolute Auto 11.1 10^3/uL (1.4-6.5); Neutrophils Percent Auto 83.1 % (43.0-75.0); Platelet Count 217 10^3/uL (150-450); Red Blood Count 2.69 10^6/uL (4.20-5.40); Red Cell Distribution Width 15.6 % (11.0-15.0); White Blood Count 13.4 10^3/uL (4.0-11.0)
[2023-11-12 08:38] VITALS: BP 129/81; PULSE 81; TEMP 36.6
--- NOTE | 2023-11-12 08:38 | PC.NURSE ---
Patient states he would like to hold off on taking Labetalol at this time d/t it makes me feel weird. Education provided on medication maintenance, Labetalol held at this time.
[2023-11-12] MEDS: DOCUSATE SODIUM 100 MG CAPSULE PO (08:43)
[2023-11-12] MEDS: IBUPROFEN 600 MG TABLET PO ×2 (08:43→23:51)
[2023-11-12] MEDS: BUPROPION HCL 150 MG XL TABLET 24H PO (08:43)
[2023-11-12 10:24] VITALS: BP 131/81; PULSE 77
--- NOTE | 2023-11-12 10:24 | PC.NURSE ---
Blood pressure reassessed, discussed need for labetalol at this time for maintenance, patient consents to take Labetalol
--- NOTE | 2023-11-12 11:50 | SWNOTE1 ---
SW spoke to [facility] and they are opening a case. They are going to reach out to pt and try to schedule a time to come see her at hospital tomorrow. SW notified [facility] and patient.
--- NOTE | 2023-11-12 12:44 | SWNOTE1 ---
SW stopped in and spoke with pt. She did receive a call from [facility] and they are coming at 10:00 am tomorrow morning. Nurse and doctor aware of the plan.
--- NOTE | 2023-11-12 14:41 | PM.OBPN ---
OB - PN: Subj Subjective Patient comments: no complaints and flatus present status: doing well and well Exam Narrative Exam Narrative: voicing no complaints Constitutional Vital Signs, click to edit/add: Last Vital Signs Temp 97.9 F 11/12/23 08:38 Pulse 77 11/12/23 10:24 Resp 16 11/12/23 08:38 BP 131/81 11/12/23 10:24 Pulse Ox 97 11/10/23 18:10 O2 Del Method Room Air 11/12/23 08:38 Documenting provider has reviewed patient's vital signs: yes Common normals: no apparent distress, oriented x3, no limitations, healthy appearing, alert and well nourished HENMT Common normals: normocephalic and head/scalp atraumatic Eye Common normals: PERRL Pupil: accommodation reflex normal Neck & C-Spine Common normals: full ROM and supple Respiratory Common normals: normal respiratory effort Auscultation: clear to auscultation bilaterally Cardio Common normals: regular rate and regular rhythm GI Common normals: Normal to inspection, nondistended, normoactive bowel sounds present, soft to palpation and non-tender Common normals: no CVA tenderness Back & Pelvis Common normals: no thoracic nor lumbar tenderness Extremity Common normals: normal to inspection, full ROM and no calf tenderness Neuro Common normals: oriented x3, CN's II-XII intact bilaterally, moves all extremities, no focal motor deficits and no sensory deficits noted Psych Common normals: mental status grossly normal, cooperative and affect normal Results Labs Labs: Short CBC 11/12/23 Range/Units 07:01 WBC 13.4 H (4.0-11.0) 10^3/uL Hgb 7.0 L (12.0-16.0) g/dL Hct 23.0 L* (36.0-48.0) % Plt Count 217 (150-450) 10^3/uL Urinary Catheter Management Urinary Catheter Management Urethral: Cath placed during this visit: yes Urethral indwelling: No Insertion date: 11/10/23 Insertion time: 22:35 OB - PN: A/P Assessment and Plan (1) Normal vaginal delivery: Assessment and Plan: blood pressure normal, doing well, no complaints, will start iron for hemoglobin of 7 plus but assymptomatic Plan start iron supplementation Plan - Vaginal Delivery day: 1 Plan: routine care Time Spent with Patient Time: Total time spent is greater than 50% in coordination of care (as documented) at patient's floor/unit and/or counseling patient: Total time spent with greater than 50% in coordination of care (as documented) at patient's floor/unit and/or counseling patient: less than 15 minutes
[2023-11-12 16:27] VITALS: BP 110/58; PULSE 82
--- NOTE | 2023-11-12 19:15 | PC.NURSE ---
Vishal RN and Raulito RN at bedside discussing home medications with patient. Patient denies taking suboxone, however prescription recently filled and patient states she has at home. Discussed plan of care with patient for her and baby, and desire to keep both safe and healthy while here at hospital. Patient states she has had an alcohol problem for a while, since the last baby that helped her manage anxiety. Patient states she sees a psychiatrist via telehealth and a therapist, who ordered the naloxone and suboxone. Patient states custody of her 2 older children was given to her mother because that would be the best option for them, and this was decided between the patient herself, her mother, and her , now . Patient states she has never had an issue with drugs in the past, except during her gastric bypass surgery when she was taking prescribed pain medication and using THC. patient reports still using THC. Reassurance and education provided, patient aware CPS coming to visit tomorrow to discuss plan for baby with her.
[2023-11-12 21:30] LABS: Amphetamine Screen Urine NEGATIVE (NEGATIVE); Barbiturates Screen Urine NEGATIVE (NEGATIVE); Benzodiazepines Screen Urine NEGATIVE (NEGATIVE); Buprenorphine Screen Urine POSITIVE (NEGATIVE); Cannabinoid Screen Urine POSITIVE (NEGATIVE); Cocaine Screen Urine NEGATIVE (NEGATIVE); Methadone Screen Urine NEGATIVE (NEGATIVE); Methamphetamines Screen Urine NEGATIVE (NEGATIVE); Opiate Screen Urine NEGATIVE (NEGATIVE); Oxycodone Screen Urine NEGATIVE (NEGATIVE); Phencyclidine Screen Urine NEGATIVE (NEGATIVE); Tricyclic Antidepressant Urine NEGATIVE (NEGATIVE)
[2023-11-12 23:53] VITALS: BP 115/58; PULSE 74
[2023-11-13 08:14] VITALS: BP 113/64; PULSE 95; TEMP 36.5
[2023-11-13] MEDS: LABETALOL HCL 200 MG TABLET PO (08:27)
[2023-11-13] MEDS: BUPROPION HCL 150 MG XL TABLET 24H PO (08:27)
[2023-11-13] MEDS: IBUPROFEN 600 MG TABLET PO (08:27)
--- NOTE | 2023-11-13 09:28 | PC.NURSE ---
This RN at patient bedside this morning discussing home meds with patient, patient denies needing a dose of suboxone this morning. Patient appears anxious and fidgety. RN discusses suboxone use with patient, patient states that it was prescribed for her a month ago by her psychiatrist, not her therapist, and was given as a maintenance medication. Patient then states that she has taken a half a strip for maintenance, then changed the narrative and stated she has only taken it one time. Prescription was filled on 11/06/23 and patient states she has taken it at home. Patient states she does not have her medication here with her. Discussed any history of drug use, patient states she has not used any drugs, including THC. UDS positive for THC and buprinophine, patient states she was made aware last night. Patient states she has a problem with alcohol, and started seeing a therapist and psychiatrist a month ago. She states prior to seeing her providers via telehealth, she was having 4-5 glasses of wine a night until she started seeing the therapist and psychiatrist. Patient then states, Well, I was drinking until I saw the therapist, but not during my . Patient's narrative seems to be inconsistent and evolving. RN remains at bedside sitting and discussing with patient her needs and need for infant safety for 20 minutes, story continues changing multiple times during that time period. Reassurance and education given to patient, who denies further needs at this time.
--- NOTE | 2023-11-13 10:30 | PC.NURSE ---
RN, SW, and CPS rhythmic gymnastics coach at bedside discussing safety plan with patient for discharge. Patient able to take baby home to her address, her mother is to be present as the safety officer until CPS rhythmic gymnastics coach can come out to her residence on Thursday. Patient, patient's mother, and staff all verbalize understanding. copy of safety plan given to patient and put in baby's chart
--- NOTE | 2023-11-13 10:58 | SWNOTE1 ---
Case worked from [facility] CPS arrived. Nurse and doctor speaking with her at the time SW came back. SW spoke to nurse earlier and pt was positive for THC and Buprenorphine on this admission to ED. She had voiced to nurse the last time she took it was 2 weeks ago. Originally she voiced to SW she has not taken it. CPS notified of this change. SW, nurse, and CPS worker went in room together. CPS worker verifed some information. Pt voiced she did take gummies throughout , only maybe 3 times, and she was not aware THC was in them. CPS worker explained to pt that since it is Thursday and plan is for discharge this weekend, then there needs to be a safety plan until CPS can confirm information. Pt would like her mother to be the person that stays with her and baby over the weekend. CPS worker called and spoke pt's mother and she is in agreement. At this time the safety plan is for pt's mother to stay with pt and baby at pt's home. CPS will come to the home on Thursday (11/16/23) at 11:00 am to meet with them. All are in agreement with this plan. KATHRYN requested that CPS sends over copy of safety plan once it is typed up. CPS in agreement and will fax to KATHRYN.
--- NOTE | 2023-11-13 13:03 | PM.OBDS ---
DS: Providers Provider Date of admission: 11/10/23 18:30 Primary care physician: Donna Prasad NP Admitting clinician: Eligio Mathew Consults: 11/10/23 Consult to Anesthesiology Routine Consulting Provider: Nehemiah Resendiz Reason for consultation: epidural Consult to It Portfolio Manager Routine Reason for consult:: Other Other reason:: patient does not have custody of other children Attending physician on discharge: Arlette Arechiga Anticipated date of discharge: 11/13/23 DS: Diagnosis Discharge Diagnosis (1) Normal vaginal delivery: Assessment and plan: exam normal, breast feeding, voicing no complaints (2) Hypertension: Assessment and plan: sent with script for labetalol 200 mg PO BID. blood pressure check in office in 4 days Qualifiers: Hypertension type: unspecified Qualified Code(s): I10 - Essential (primary) hypertension (3) Iron deficiency anemia: Assessment and plan: script for iron sulfate 325 mg PO qd for thirty days Qualifiers: Iron deficiency anemia type: other iron deficiency Qualified Code(s): D50.8 - Other iron deficiency anemias Plan discharge home, instructions given, stated understanding, call for problem or concern OB - DS: Summary Hospital Course Hospital Course: uncomplicated Time spent discussing smoking cessation with patient: 3 to 10 minutes Delivery method: spontaneous vaginal delivery Gender: male Status at Discharge Cognitive/behavioral status at discharge: wnl Functional status at discharge: independent ambulation Time Spent with Patient Time attestation: Total time spent providing and/or coordinating discharge services: Time spent: less than 30 minutes Exam Narrative Exam Narrative: voicing no complaints Constitutional Vital Signs, click to edit/add: Last Vital Signs Temp 97.7 F 11/13/23 08:14 Pulse 95 H 11/13/23 08:14 Resp 20 11/13/23 08:14 BP 113/64 11/13/23 08:14 Pulse Ox 97 11/10/23 18:10 O2 Del Method Room Air 11/13/23 08:14 Documenting provider has reviewed patient's vital signs: yes Common normals: no apparent distress HENMT Common normals: normocephalic and head/scalp atraumatic Eye Common normals: PERRL Pupil: accommodation reflex normal Neck & C-Spine Common normals: full ROM and supple Respiratory Common normals: normal respiratory effort Auscultation: clear to auscultation bilaterally Cardio Common normals: regular rate and regular rhythm GI Common normals: Normal to inspection, nondistended, normoactive bowel sounds present, soft to palpation and non-tender Common normals: no CVA tenderness Back & Pelvis Common normals: no thoracic nor lumbar tenderness Extremity Common normals: normal to inspection, full ROM and no calf tenderness Neuro Common normals: CN's II-XII intact bilaterally, moves all extremities, no focal motor deficits and no sensory deficits noted Motor exam: strength 5/5 throughout Psych Common normals: mental status grossly normal, thought process normal, cooperative, affect normal, speech normal and activity/motor behavior normal DS: Data Data Completed and Pending Labs on day of discharge: Labs from last 24 hours 11/10/23 17:40 Urine Opiates Screen Negative Ur Buprenorphine Scrn Positive A Ur Oxycodone Screen Negative Urine Methadone Screen Negative Ur Barbiturates Screen Negative U Tricyclic Antidepress Negative Ur Phencyclidine Scrn Negative Ur Amphetamines Screen Negative U Methamphetamines Scrn Negative U Benzodiazepines Scrn Negative Urine Cocaine Screen Negative U Cannabinoids Screen Positive A Discharge Plan Discharge Disposition: Home, Self-Care Condition: Good Assessment: condition good, for discharge Health Concerns: blood pressure well controlled on labetalol 200 mg po bid, will start iron for iron loss anemia Plan of Treatment: discharge Discharge Medications: Continued magnesium oxide 400 mg (241.3 mg magnesium) tablet 400 mg bupropion HCl 150 mg tablet extended release 24 hr 150 mg PO DAILY naloxone 4 mg/actuation spray,non-aerosol 1 spray INTRANASAL Hold Instructions: patient states is for emergencies Discontinued amoxicillin 500 mg capsule 500 mg PO DAILY buprenorphine-naloxone 8-2 mg film 1 film Hold Instructions: patient states for emergencies Activity: resume usual activities as tolerated Diet: regular diet Print Language: Wallisian Patient Instructions: Vaginal Delivery (DC), Hypertension During (DC) Activity Restrictions/Additional Instructions: no sex six weeks, may climb stairs, no bathtub, may shower, no driving four weeks, walking only exercise, only lift baby, general covid and rsv precautions Forms: Portal Instructions Follow Up Appointments: blood pressure check at office in 4 days, post exam appointment in six weeks Discharge location: home
== END 2023-11-13 13:40 | disposition home or self-care (01) | DRG 560 ==
LOC: ER 18:18 → FBC 18:21
PROVIDERS: Physician Assistant; Admitting Provider Obstetrics & Gynecology; Emergency Provider Emergency Medicine; PCP Nurse Practitioner; Visit Provider Obstetrics & Gynecology
DX: O14.94 Unspecified pre-eclampsia, complicating childbirth (principal); O69.2XX0 Labor and delivery complicated by other cord entanglement, with compression, not applicable or unspecified; Z37.0 Single live birth; Z3A.35 35 weeks gestation of pregnancy; O99.844 Bariatric surgery status complicating childbirth; O99.324 Drug use complicating childbirth; F12.90 Cannabis use, unspecified, uncomplicated; O26.893 Other specified pregnancy related conditions, third trimester; R05.9 Cough, unspecified; O99.344 Other mental disorders complicating childbirth; F41.9 Anxiety disorder, unspecified; F32.A Depression, unspecified; O99.02 Anemia complicating childbirth; D50.9 Iron deficiency anemia, unspecified; Z87.891 Personal history of nicotine dependence
CPT/HCPCS: 36415; 51702; 59050; 59410; 70450; 76818; 80053; 80307; 81003; 82565; 83605; 83735; 84443; 84450; 84460; 84520; 84550; 85025; 85384; 85610; 85730; 86850; 86900; 86901; 88307; 93005; 96372; 96374; 96375; 99281; 99285; J0290; J0702; J1200; J1920; J2405; J2765; J2795; J3475

== ENCOUNTER 2023-11-25 17:14 | Emergency (ER) | payer OTHER, SELFPAY ==
[2023-11-25] VITALS (38 sets, daily range): BP systolic 124–162; BP diastolic 72–101; PULSE 80–119; TEMP 36.9; O2SAT 90–98
--- NOTE | 2023-11-25 17:22 | ECG_ITS ---
[facility] Test Date: 2023-11-25 Pat Name: BRAYDEN RECIO Department: Room: - Gender: Female Tiller Man: : 1995 Requested By: Order Number: [id number] Reading MD: ALEXANDRA RAYMUNDO Measurements Intervals [place] Rate: 118 P: 61 ME: 148 QRS: -16 QRSD: 90 T: 40 QT: 324 QTc: 394 Interpretive Statements 1120 Sinus tachycardia 9140 abnormal rhythm ECG Compared to ECG 11/10/2023 17:04:36 Sinus rhythm no longer present Electronically Signed On 11-25-2023 22:35:57 EDT by ALEXANDRA RAYMUNDO
--- NOTE | 2023-11-25 17:30 | PC.NURSE ---
When confronting patient about her prescription for Suboxone and Narcan she admitted to taking one Suboxone but stopped after that. She also admitted to taking some kind of mushroom candy bar but is unsure what it contained.
--- OUTSIDE RECORDS SUMMARY | 2023-11-25 17:33 | XMS_ITS | CCD ---
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 esterase Test strip Ql (U) Negative Normal NEG [facility] Comment on above: Performed By: #### 2 106-3 #### [facility] ([id number]) [address] [place] [address] [place] [address] MUCOUS PRESENT Abnormal NONE [facility] Comment on above: Performed By: #### 2 106-3 #### [facility] ([id number]) [address] [place] [address] [place] [address] Nitrite Ql (U) Negative Normal NEG [facility] Comment on above: Performed By: #### 2 106-3 #### [facility] ([id number]) [address] [place] [address] [place] [address] pH (U) 6.5 [pH] Normal 5.0-8.5 [facility] Comment on above: Performed By: #### 2 106-3 #### [facility] ([id number]) [address] [place] [address] [place] [address] Protein Ql (U) Trace Abnormal NEG [facility] Comment on above: Performed By: #### 2 106-3 #### [facility] ([id number]) [address] [place] [address] [place] [address] R.B.CELLS 0 /hpf Normal 0-5 [facility] Comment on above: Performed By: #### 2 106-3 #### [facility] ([id number]) [address] [place] [address] 89902 Specific gravity (U) [Rel density] 1.025 Normal 1.003-1.035 [facility] Comment on above: Performed By: #### 2 106-3 #### [facility] ([id number]) [address] [place] [address] 73984 SQUAMOUS EPITHELIUM 2 /hpf Normal 0-5 [facility] Comment on above: Performed By: #### 2 106-3 #### [facility] ([id number]) [address] [place] [address] 72861 TURBIDITY CLEAR Normal CLEAR [facility] Comment on above: Performed By: #### 2 106-3 #### [facility] ([id number]) [address] [place] [address] 87575 Urobilinogen Qn (U) 1.0 {Jazmine'U}/dL Normal <1.1 [facility] Comment on above: Performed By: #### 2 106-3 #### [facility] ([id number]) [address] [place] [address] 18887 W.B.CELLS 0 /hpf Normal 0-5 [facility] Comment on above: Performed By: #### 2 106-3 #### [facility] ([id number]) [address] [place] [address] 23979 CHLAMYDIA/GC PCR, FLon 05-04 CHLAMYDIA/GC PCR, FL [...] are dependent on adequate specimen collection. Normal [facility] Comment on above: Performed By: #### 2 106-3 #### [facility] ([id number]) [address] [place] [address], [place] [address] Cytologyon 05-05-2023 Cytology Normal [facility] Comment on above: Result Comment: [facility] [address] [place] [address] Gynecologic Cytology Consultation Patient Name:ANTOINETTE RECIO:1995 (Age: 28)Gender:FTaken:4Reported:4Physician(s):Nieves Velasquez M.D. ([phone])Copy To: Rec. #:[id number]: #[id number] Final Cytologic Interpretation ThinPrep Pap Test (Cervical): Satisfactory for evaluation. A transformation zone component is present. NEGATIVE FOR INTRAEPITHELIAL LESION OR MALIGNANCY. Numerous neutrophilic leukocytes are present. jja/05/21/2023 Interpretation performed at [facility], [address] [place] [address], License number: [id number]. Electronically Signed Out By FLAKO Houston(ASCP) Date of Last Menstrual Period: (None Given) Other Clinical Conditions: Z01.419 Abrasive Sawyer exam wo/abn findings Z12.72 Screeing for malignant neoplasm of vagina Z11.3 Encntr screen for infections w sexl mode of transmiss Source of Specimen ThinPrep Pap Test (Cervical) Thin Prep Pap (SUPREME COURT JUDGE) Fee Code(s): G0145 ACUTE HEPATITIS PANELon 03-0 ANTI HCV W/PCR REFLX Non-Reactive Normal NRCT Pr [facility] Comment on above: Result Comment: If recent infection suspected, recommend repeat testing (>2 months). Zvspda-ej-tchspl ratio is <0.80. Performed By: #### N UM #### [facility] ([id number]) [address] [place] [address], [place] [address] HEPATITIS A IGM Non-Reactive Normal NRCT [facility] Comment on above: Performed By: #### N UM #### [facility] ([id number]) [address] [place] [address] 76493 HEPATITIS B CORE IGM Negative Normal NEG [facility] Comment on above: Performed By: #### N UM #### [facility] ([id number]) [address] [place] [address] 54074 HEPATITIS B SURF AG Negative Normal NEG [facility] Comment on above: Performed By: #### N UM #### [facility] ([id number]) [address] [place] [address] 58386 COMPLETE BLOOD COUNTon 04-15 Erythrocyte distribution width (RBC) [Ratio] 18.6 % High 11.5-15.0 [facility] Comment on above: Performed By: #### C BC, CMP, 2532-0, 3084-1, AHP, 92690-1, 60967-7, 30763-1, 50262-2 #### [facility] ([id number]) [address], [address] [place] [address] Hematocrit (Bld) [Volume fraction] 34.6 % Low 35-47 [facility] Comment on above: Performed By: #### C BC, CMP, 2532-0, 3084-1, AHP, 92760-1, 62586-4, 73311-6, 46337-3 #### [facility] ([id number]) [address], [address] [place] [address] Hemoglobin (Bld) [Mass/Vol] 11.4 g/dL Low 11.7-15.5 [facility] Comment on above: Performed By: #### C BC, CMP, 2532-0, 3084-1, AHP, 68261-4, 49014-9, 43092-3, 70178-9 #### [facility] ([id number]) [address], [address] [place] [address] MCH (RBC) [Entitic mass] 26.7 pg Low 27-34 [facility] Comment on above: Performed By: #### C BC, CMP, 2532-0, 3084-1, AHP, 59760-8, 02618-0, 40093-5, 53775-1 #### [facility] ([id number]) [address], [address] [place] [address] MCHC (RBC) [Mass/Vol] 32.8 g/dL Normal 32-36 [facility] Comment on above: Performed By: #### C BC, CMP, 2532-0, 3084-1, AHP, 62022-9, 99527-3, 30801-6, 83025-0 #### [facility] ([id number]) [address], [address] [place] [address] MCV (RBC) [Entitic vol] 81 fL Normal 80-100 P [facility] Comment on above: Performed By: #### C BC, CMP, 2532-0, 3084-1, AHP, 72444-1, 86790-1, 36850-4, 37209-7 #### [facility] ([id number]) [address] [place] [address] Platelet mean volume (Bld) [Entitic vol] 8.5 fL Normal 7-12 [facility] Comment on above: Performed By: #### C BC, CMP, 2532-0, 3084-1, AHP, 02568-8, 98141-9, 18411-3, 13624-5 #### [facility] ([id number]) [address] [place] [address] Platelets (Bld) [#/Vol] 351 10*3/uL Normal 150-450 [facility] Comment on above: Performed By: #### C BC, CMP, 2532-0, 3084-1, AHP, 01404-3, 73146-3, 18887-6, 95174-6 #### [facility] ([id number]) [address], [address] [place] [address] RBC COUNT 4.26 X10E12/L Normal 3.80-5.20 [facility] Comment on above: Performed By: #### C BC, CMP, 2532-0, 3084-1, AHP, 24841-5, 75478-4, 26824-7, 67304-6 #### [facility] ([id number]) [address], [address] [place] [address] WBC (Bld) [#/Vol] 8.9 10*3/uL Normal 4.0-11.0 [facility] Comment on above: Performed By: #### C BC, CMP, 2532-0, 3084-1, AHP, 74489-9, 35981-2, 14882-6, 39955-5 #### [facility] ([id number]) [address], [address] [place] [address] COMPREHENSIVE METABOLIC PANE Shaji 04-16-2023 Albumin [Mass/Vol] 4.4 g/dL Normal 3.2-5.3 [facility] Comment on above: Performed By: #### C BC, CMP, 2532-0, 3084-1, AHP, 39031-5, 05564-5, 00452-5, 01790-4 #### [facility] ([id number]) [address], [address] [place] [address] ALP [Catalytic activity/Vol] 42 U/L Normal 39-130 [facility] Comment on above: Performed By: #### C BC, CMP, 2532-0, 3084-1, AHP, 41240-5, 67648-2, 86523-8, 76751-3 #### [facility] ([id number]) [address], [address] [place] [address] ALT [Catalytic activity/Vol] 12 U/L Normal 0-31 [facility] Comment on above: Performed By: #### C BC, CMP, 2532-0, 3084-1, AHP, 77511-1, 62219-8, 91138-0, 48402-9 #### [facility] ([id number]) [address], [address] [place] [address] Anion gap [Moles/Vol] 9 mmol/L Normal 5-15 [facility] Comment on above: Performed By: #### C BC, CMP, 2532-0, 3084-1, AHP, 79826-0, 01009-0, 66815-5, 64540-3 #### [facility] ([id number]) [address], [address] [place] [address] AST [Catalytic activity/Vol] 13 U/L Normal 0-41 [facility] Comment on above: Performed By: #### C BC, CMP, 2532-0, 3084-1, AHP, 15005-8, 19878-8, 69929-7, 73629-4 #### [facility] ([id number]) [address], [address] [place] [address] Bilirubin [Mass/Vol] 0.7 mg/dL Normal 0.3-1.2 [facility] Comment on above: Performed By: #### C BC, CMP, 2532-0, 3084-1, AHP, 13468-7, 34862-8, 64547-3, 75482-7 #### [facility] ([id number]) [address], [address] [place] [address] Calcium [Mass/Vol] 9.4 mg/dL Normal 8.5-10.5 [facility] Comment on above: Performed By: #### C BC, CMP, 2532-0, 3084-1, AHP, 47627-8, 88957-3, 40361-6, 83113-4 #### [facility] ([id number]) [address], [address] [place] [address] Chloride [Moles/Vol] 103 mmol/L Normal 98-109 [facility] Comment on above: Performed By: #### C BC, CMP, 2532-0, 3084-1, AHP, 16393-2, 35245-6, 29118-0, 87412-1 #### [facility] ([id number]) [address], [address] [place] [address] CO2 [Moles/Vol] 24 mmol/L Normal 22-32 [facility] Comment on above: Performed By: #### C BC, CMP, 2532-0, 3084-1, AHP, 99741-8, 48805-9, 89166-1, 73688-7 #### [facility] ([id number]) [address], [address] [place] [address] Creatinine [Mass/Vol] 0.63 mg/dL Normal 0.40-1.00 [facility] Comment on above: Result Comment: METH OD TRACEABLE TO IDMS STANDARD Performed By: #### C BC, CMP, 2532-0, 3084-1, AHP, 67440-9, 56726-5, 31949-2, 22797-0 #### [facility] ([id number]) [address], [address] [place] [address] eGFR (CKD-EPI) NON-RACE DEPENDENT >90 Normal >59 [facility] Comment on above: Result Comment: Reported eGFR is based on the CKD-EPI 2020 equation that does not use a race coefficient. Performed By: #### C BC, CMP, 2532-0, 3084-1, AHP, 54293-7, 47738-0, 75345-7, 15712-0 #### [facility] ([id number]) [address], [address] [place] [address] Glucose [Mass/Vol] 84 mg/dL Normal 65-99 [facility] Comment on above: Performed By: #### C BC, CMP, 2532-0, 3084-1, AHP, 23264-7, 87277-6, 62413-8, 91951-4 #### [facility] ([id number]) [address], [address] [place] [address] Potassium [Moles/Vol] 3.4 mmol/L Low 3.5-5.0 [facility] Comment on above: Performed By: #### C BC, CMP, 2532-0, 3084-1, AHP, 30538-5, 16652-4, 71817-4, 57044-7 #### [facility] ([id number]) [address], [address] [place] [address] Protein [Mass/Vol] 6.9 g/dL Normal 6.0-8.0 [facility] Comment on above: Performed By: #### C BC, CMP, 2532-0, 3084-1, AHP, 09439-9, 81059-4, 01064-7, 12491-4 #### [facility] ([id number]) [address], [address] [place] [address] Sodium [Moles/Vol] 136 mmol/L Normal 134-146 [facility] Comment on above: Performed By: #### C BC, CMP, 2532-0, 3084-1, AHP, 27453-4, 44695-5, 72848-3, 44356-0 #### [facility] ([id number]) [address], [address] [place] [address] Urea nitrogen [Mass/Vol] 11 mg/dL Normal 5-23 [facility] Comment on above: Performed By: #### C BC, CMP, 2532-0, 3084-1, AHP, 43574-1, 17938-5, 51277-7, 54047-3 #### [facility] ([id number]) [address] [place] [address], [address] [place] [address] DRUG SCREEN, URINEon 024 AMPHETAMINE/METHAMP Negative Normal NEG [facility] Comment on above: Result Comment: AMPH /METH screening cut off = 1000 ng/mL Performed By: #### N UM #### [facility] ([id number]) [address] [place] [address] 89116 BARBITURATES Negative Normal NEG [facility] Comment on above: Result Comment: Carmella iturates screening cut off value = 200 ng/mL Performed By: #### N UM #### [facility] ([id number]) [address] [place] [address] 70064 BENZODIAZEPINES Negative Normal NEG [facility] Comment on above: Result Comment: German odiazepines screening cut off value = 200 ng/mL Performed By: #### N UM #### [facility] ([id number]) [address] [place] [address] 28500 CANNABINOIDS Positive Abnormal NEG [facility] Comment on above: Result Comment: Conf irmation available upon request. Cannabinoids/THC screening cut off value = 50 ng/mL Performed By: #### N UM #### [facility] ([id number]) [address] [place] [address] 02360 COCAINE METABOLITE Negative Normal NEG [facility] Comment on above: Result Comment: Coca ine screening cut off value = 300 ng/mL Performed By: #### N UM #### [facility] ([id number]) [address] [place] [address] 13648 ECSTASY Negative Normal NEG [facility] Comment on above: Result Comment: Ecst asy screening cut off value = 500 ng/mL This report is intended for use in clinical monitoring or management of patients. Performed By: #### N UM #### [facility] ([id number]) [address] [place] [address] 68263 METHADONE Negative Normal NEG [facility] Comment on above: Result Comment: Meth adone screening cut off value = 300 ng/mL. Performed By: #### N UM #### [facility] ([id number]) [address] [place] [address] 33104 OPIATES Negative Normal NEG [facility] Comment on above: Result Comment: Opia markie screening cut off value = 300 ng/mL NOTE: This test is used for the detection of codeine, hydrocodone (>1000 ng/mL), morphine and hydromorphone (>900 ng/mL) in urine. Performed By: #### N UM #### [facility] ([id number]) [address] [place] [address] 30674 OXYCODONE Negative Normal NEG [facility] Comment on above: Result Comment: Oxyc odone screening cut off value = 300 ng/mL NOTE: This test is used for the detection of oxycodone and oxymorphone in urine. Performed By: #### N UM #### [facility] ([id number]) [address] [place] [address] 14965 PHENCYCLIDINE Negative Normal NEG [facility] Comment on above: Result Comment: Phen cyclidine screening cut off value = 25 ng/mL Performed By: #### N UM #### [facility] ([id number]) [address] [place] [address] 10557 HIV 1+2 Ab+HIV1 p24 Ag IA Ql on 04-16-2023 HIV 1 and 2 Ab/Ag Screen Non-Reactive Normal NRCT [facility] Comment on above: Result Comment: This information [...] diagnoses. Performed By: #### N UM #### [facility] ([id number]) [address] [place] [address] 65412 LDH [Catalytic activity/Vol] on 04-16-2023 LDH 156 U/L Normal 100-235 [facility] Comment on above: Performed By: #### N UM #### [facility] ([id number]) [address] [place] [address] 27373 PROTEIN CREAT RATIOon 2023 RANDOM URINE PROTEIN 180 mg/L High <120 [facility] Comment on above: Performed By: #### N UM #### [facility] ([id number]) [address] [place] [address] 58913 U/PRO/BOX BLANK MACHINE OPERATOR HELPER RATIO CALC 0.07 Normal <0.2 [facility] Comment on above: Result Comment: Neph rotic Syndrome is associated with ratios >3.5 Performed By: #### N UM #### [facility] ([id number]) [address] [place] [address] 79025 URINE CREATININE,RDM 273.50 mg/dL Normal Pr [facility] Comment on above: Performed By: #### N UM #### [facility] ([id number]) [address] [place] [address] 20174 Rubella virus Ab Ql (S)on RUBELLA IMMUNE IgG 3.1 AI Normal [facility] Comment on above: Result Comment: Interpretation-------- <0.8 NEGATIVE-considered Not Immune 0.8-0.9 EQUIVOCAL-consider retesting with new specimen >0.9 POSITIVE-considered Immune Performed By: #### N UM #### [facility] ([id number]) [address] [place] [address] 42561 T. pallidum IgG+IgM IA Ql (S )on 04-16-2023 Syphilis Total <0.2 Normal 0.0-0.8 [facility] Comment on above: Result Comment: NON REACTIVE No serologic evidence of infection to Treponema pallidum (syphilis). Repeat testing may be considered in patients with suspected acute or primary syphilis in 2 to 4 weeks. Performed By: #### N UM #### [facility] ([id number]) [address] [place] [address] 05483 URIC ACIDon 04-16-2023 Urate [Mass/Vol] 7.5 mg/dL High 2.6-7.2 [facility] Comment on above: Performed By: #### N UM #### [facility] ([id number]) [address] [place] [address] 59261 URINALYSISon 04-16-2023 Bilirubin Ql (U) Negative Normal NEG [facility] BLOOD/HGB Negative Normal NEG [facility] CA OXALATE CRYSTALS PRESENT Abnormal NONE [facility] Color (U) BROWN Abnormal YELLOW [facility] Glucose Ql (U) Negative Normal NEG [facility] Ketones Ql (U) Negative Normal NEG [facility] Leukocyte esterase Test strip Ql (U) Small Abnormal NEG [facility] MUCOUS PRESENT Abnormal NONE [facility] Nitrite Ql (U) Negative Normal NEG [facility] pH (U) 6.0 [pH] Normal 5.0-8.5 [facility] Protein Ql (U) 30 mg/dL Abnormal NEG [facility] R.B.CELLS 2 /hpf Normal 0-5 [facility] Specific gravity (U) [Rel density] 1.030 Normal 1.003-1.035 [facility] SQUAMOUS EPITHELIUM >27 High 0-5 [facility] TURBIDITY CLOUDY Abnormal CLEAR [facility] Urobilinogen (U) [Mass/Vol] mg/dL Normal <1.1 [facility] W.B.CELLS <1 Normal 0-5 [facility] URINE CULTUREon 04-16-2023 Bacteria identified Cx Nom (U) CULTURE RESULTS 50-100,000 ORGANISMS/ML NORMAL UROGENITAL YOGESH Normal [facility] Comment on above: Performed By: #### 2 106-3 #### [facility] ([id number]) [address] [place] [address] US PREG LESS THAN 14 WKS WIT H TRANSVAGINALon 04-16-2023 US PREG LESS THAN 14 WKS WITH TRANSVAGINAL US PREG LESS THAN 14 WKS WITH TRANSVAGINAL US PREG LESS THAN 14 WKS WITH TRANSVAGINAL: 04/16/2023 1:04 PM Clinical: Check dates and viability. Real-time transabdominal and transvaginal sonography pelvis performed.. No comparison. There is a single live intrauterine . [place]-rump length of 2.9 mm corresponds to 5 [...] Cook MD on 04/16/2023 6:58 PM Normal [facility] VZV IgG IA Ql (S)on 04-16-19 24 VARICELLA IgG 1.1 AI High <0.9 [facility] Comment on above: Result Comment: Interpretation-------- <0.9 Negative 0.9 - 1.0 Equivocal >1.0 Positive Performed By: #### N UM #### [facility] ([id number]) [address] [place] [address] 49799 CBC AND AUTO DIFFon 03-30-19 24 ABSOLUTE BASOPHIL 0.1 X10E9/L Normal 0.0-0.2 [facility] Comment on above: Performed By: #### C OPAL MARION, #### [facility] ([id number]) [address] [place] [id number] ABSOLUTE NEUTROPHIL 7.6 X10E9/L High 1.5-6.6 [facility] Comment on above: Performed By: #### C OPAL MARION, #### [facility] ([id number]) [address] [place] [address] 46502 Basophils/100 WBC (Bld) 0.7 % Normal [facility] Comment on above: Performed By: #### Doretha MARION [facility], #### [facility] ([id number]) [address] [place] [address]11 Eosinophils (Bld) [#/Vol] 0.2 10*3/uL Normal 0.0-0.4 [facility] Comment on above: Performed By: #### Doretha MARION [facility], #### [facility] ([id number]) [address] [place] [address] [id number] Eosinophils/100 WBC (Bld) 1.8 % Normal [facility] Comment on above: Performed By: #### Doretha MARION [facility], #### [facility] ([id number]) [address] [place] [address] 72540 Erythrocyte distribution width (RBC) [Ratio] 18.4 % High 11.5-15.0 [facility] Comment on above: Performed By: #### Doretha MARION CMP, #### [facility] ([id number]) [address] [place] [address] 59757 Hematocrit (Bld) [Volume fraction] 35.8 % Normal 35-47 [facility] Comment on above: Performed By: #### C SANAM CMP, #### [facility] ([id number]) [address] [place] [address] 82973 Hemoglobin (Bld) [Mass/Vol] 11.7 g/dL Normal 11.7-15.5 [facility] Comment on above: Performed By: #### C SANAM CMP, #### [facility] ([id number]) [address] [place] [address] 87724 Lymphocytes (Bld) [#/Vol] 2.2 10*3/uL Normal 1.0-3.5 [facility] Comment on above: Performed By: #### C SANAM CMP, #### [facility] ([id number]) [address] [place] [address] 53853 Lymphocytes/100 WBC (Bld) 20.7 % Normal [facility] Comment on above: Performed By: #### Doretha MARION CMP, #### [facility] ([id number]) [address] [place] [address] 99301 MCH (RBC) [Entitic mass] 26.2 pg Low 27-34 [facility] Comment on above: Performed By: #### C SANAM CMP, #### [facility] ([id number]) [address] [place] [address] 51842 MCHC (RBC) [Mass/Vol] 32.8 g/dL Normal 32-36 [facility] Comment on above: Performed By: #### Doretha MARION CMP, #### [facility] ([id number]) [address] [place] [address] 14435 MCV (RBC) [Entitic vol] 80 fL Normal 80-100 [facility] Comment on above: Performed By: #### C SANAM CMP, #### [facility] ([id number]) [address] [place] [address] 04701 Monocytes (Bld) [#/Vol] 0.5 10*3/uL Normal 0-0.9 [facility] Comment on above: Performed By: #### C BCA, CMP, #### [facility] ([id number]) [address] [place] [address] 93566 Monocytes/100 WBC (Bld) 5.2 % Normal [facility] Comment on above: Performed By: #### C BCA, CMP, #### [facility] ([id number]) [address] [place] [address] 63831 Neutrophils/100 WBC (Bld) 71.6 % Normal [facility] Comment on above: Performed By: #### Doretah BCA, CMP, #### [facility] ([id number]) [address] [place] [address] 97177 Platelet mean volume (Bld) [Entitic vol] 8.3 fL Normal 7-12 [facility] Comment on above: Performed By: #### C BCA, CMP, #### [facility] ([id number]) [address] [place] [address] 11141 Platelets (Bld) [#/Vol] 337 10*3/uL Normal 150-450 [facility] Comment on above: Performed By: #### C BCA, CMP, #### [facility] ([id number]) [address] [place] [address] 56167 RBC COUNT 4.48 X10E12/L Normal 3.80-5.20 [facility] Comment on above: Performed By: #### Doretha BCA, CMP, #### [facility] ([id number]) [address] [place] [address] WBC (Bld) [#/Vol] 10.6 10*3/uL Normal 4.0-11.0 [facility] Comment on above: Performed By: #### C SANAM CMP, #### [facility] ([id number]) [address] [place] [address] 74331 COMPREHENSIVE METABOLIC PANE Shaji 03-30-2023 Albumin [Mass/Vol] 4.4 g/dL Normal 3.2-5.3 [facility] Comment on above: Performed By: #### C OPAL MARION, #### [facility] ([id number]) [address] [place] [address] 86574 ALP [Catalytic activity/Vol] 40 U/L Normal 39-130 [facility] Comment on above: Performed By: #### C OPAL MARION, #### [facility] ([id number]) [address] [place] [address] 23687 ALT [Catalytic activity/Vol] 12 U/L Normal 0-31 [facility] Comment on above: Performed By: #### C OPAL MARION, #### [facility] ([id number]) [address] [place] [address] 40089 Anion gap [Moles/Vol] 8 mmol/L Normal 5-15 [facility] Comment on above: Performed By: #### C SANAM, CMP, #### [facility] ([id number]) [address] [place] [address] 47670 AST [Catalytic activity/Vol] 16 U/L Normal 0-41 [facility] Comment on above: Performed By: #### C BCA, CMP, #### [facility] ([id number]) [address] [place] [address] 22098 Bilirubin [Mass/Vol] 0.5 mg/dL Normal 0.3-1.2 [facility] Comment on above: Performed By: #### C OPAL MARION, #### [facility] ([id number]) [address] [place] [address] 55824 Calcium [Mass/Vol] 9.2 mg/dL Normal 8.5-10.5 [facility] Comment on above: Performed By: #### C OPAL MARION, #### [facility] ([id number]) [address] [place] [address] 09333 Chloride [Moles/Vol] 105 mmol/L Normal 98-109 [facility] Comment on above: Performed By: #### C OPAL MARION, #### [facility] ([id number]) [address] [place] [address] 33957 CO2 [Moles/Vol] 24 mmol/L Normal 22-32 [facility] Comment on above: Performed By: #### C OPAL MARION, #### [facility] ([id number]) [address] [place] [address] 01304 Creatinine [Mass/Vol] 0.74 mg/dL Normal 0.40-1.00 [facility] Comment on above: Result Comment: METH OD TRACEABLE TO IDMS STANDARD Performed By: #### C OPAL MARION, #### [facility] ([id number]) [address] [place] [address] 28434 eGFR (CKD-EPI) NON-RACE DEPENDENT >90 Normal >59 [facility] Comment on above: Result Comment: Reported eGFR is based on the CKD-EPI 2020 equation that does not use a race coefficient. Performed By: #### C OPAL MARION, #### [facility] ([id number]) [address] [place] [address] 24445 Glucose [Mass/Vol] 89 mg/dL Normal 65-99 [facility] Comment on above: Performed By: #### C BCA, CMP, #### [facility] ([id number]) [address] [place] [address] 14465 Potassium [Moles/Vol] 3.7 mmol/L Normal 3.5-5.0 [facility] Comment on above: Performed By: #### C BCA, CMP, #### [facility] ([id number]) [address] [place] [address] 08123 Protein [Mass/Vol] 7.4 g/dL Normal 6.0-8.0 [facility] Comment on above: Performed By: #### C SANAM, CMP, #### [facility] ([id number]) [address] [place] [address] 32825 Sodium [Moles/Vol] 137 mmol/L Normal 134-146 [facility] Comment on above: Performed By: #### C SANAM, CMP, #### [facility] ([id number]) [address] [place] [address] 59716 Urea nitrogen [Mass/Vol] 10 mg/dL Normal 5-23 [facility] Comment on above: Performed By: #### C BCA, CMP, #### [facility] ([id number]) [address] [place] [address] 91043 HCG ( test) Ql (U)o n 03-30-2023 Beta HCG ( test) Ql (U) Positive Abnormal NEG [facility] Comment on above: Performed By: #### 2 106-3 #### [facility] ([id number]) [address] [place] [address] 34996 HCG.beta subunit IA 3rd IS Q non 03-30-2023 HCG.beta subunit Qn 80 m[IU]/mL Normal [facility] Comment on above: Result Comment: NEW [...] nontrophoblastic neoplasms. Performed By: #### C BCA, [facility], [id number] #### [facility] ([id number]) [address] [place] [address] 16418 URINE CULTUREon 03-30-2023 Bacteria identified Cx Nom (U) CULTURE RESULTS 10-50,000 ORGANISMS/mL NORMAL UROGENITAL YOGESH Normal [facility] Comment on above: Performed By: #### 6 30-4 #### [facility] ([id number]) [address] [place] [address], [address] [place] [address] URN MACROSCOPIC NURon 2023 BILIRUBIN YARI Negative Normal NEG [facility] Comment on above: Performed By: #### N UM #### [facility] ([id number]) [address] [place] [address] 70478 BLOOD/HGB YARI Negative Normal NEG [facility] Comment on above: Performed By: #### N UM #### [facility] ([id number]) [address] [place] [address] 53182 GLUCOSE YARI Negative Normal NEG [facility] Comment on above: Performed By: #### N UM #### [facility] ([id number]) [address] [place] [address] 23715 KETONES YARI Negative Normal NEG [facility] Comment on above: Performed By: #### N UM #### [facility] ([id number]) [address] [place] [address] 55916 LEUKOCYTE ESTERASE YARI Negative Normal NEG [facility] Comment on above: Performed By: #### N UM #### [facility] ([id number]) [address] [place] [address] 05198 NITRITE YARI Negative Normal NEG [facility] Comment on above: Performed By: #### N UM #### [facility] ([id number]) [address] [place] [address] 05922 PH YARI 6.0 Normal 5.0-8.5 [facility] Comment on above: Performed By: #### N UM #### [facility] ([id number]) [address] [place] [address] 07499 PROTEIN YARI Negative Normal NEG [facility] Comment on above: Performed By: #### N UM #### [facility] ([id number]) [address] [place] [address] 87550 SPECIFIC GRAVITY YARI >=1.030 Normal 1.003-1.035 [facility] Comment on above: Performed By: #### N UM #### [facility] ([id number]) [address] [place] [address] 64649 UROBILINOGEN YARI 0.2 eu/dL Normal <1.1 [facility] Comment on above: Performed By: #### N UM #### [facility] ([id number]) [address] [place] [address] 45960 [place] PREG LESS THAN 14 WKS WIT [...] Eckert MD on 03/30/2023 8:48 PM Normal [facility] Cholesterol [Mass/volume] in Serum or PlasmaOrdered By: Dar Nation on 11-28-2022 Cholesterol [Mass/Vol] 200 mg/dL Normal 140-200 [facility] Comment on above: Chol less than 200 m g/dl low riskChol 201-239 mg/dl borderline riskChol 240 mg/dl and greater high risk Result Comment: Chol less than 200 mg/dl low risk Chol 201-239 mg/dl borderline risk Chol 240 mg/dl and greater high risk Performed By: #### L IPID, TSH3 wRFLX, [id number] #### [address] Cholesterol in LDL Calc [Mas s/Vol]Ordered By: Dar Nation on 11-28-2022 Cholesterol in LDL [Mass/Vol] 75 mg/dL 0-[address] [facility] Comment on above: LDL ATP III CLASSIFI CATIONLDL less than 100 mg/dL OptimalLDL 100-129 mg/dL Near or above optimalLDL 130-159 mg/dL Borderline highLDL 160-189 mg/dL HighLDL greater than 189 mg/dL Very high Cholesterol in VLDL Calc [Ma ss/Vol]Ordered By: Dar Nation on 11-28-2022 Cholesterol in VLDL [Mass/Vol] 16 mg/dL [facility] Lipid Panelon 11-28-2022 LDL Cholesterol,Calculated 75 mg/dL Normal 0-100 [facility] Comment on above: Result Comment: LDL ATP III CLASSIFICATION LDL less than 100 mg/dL Optimal LDL 100-129 mg/dL Near or above optimal LDL 130-159 mg/dL Borderline high LDL 160-189 mg/dL High LDL greater than 189 mg/dL Very high Performed By: #### L IPID, TSH3 wRFLX, [id number] #### [facility] [address] Triglyceride w/Reflex 80 mg/dL Normal 0-149 [facility] Comment on above: Result Comment: TRIG ATP III CLASSIFICATION TRIG less than 150 mg/dL Normal TRIG 150-199 mg/dL Borderline high TRIG 200-500 mg/dL High TRIG greater than 500 mg/dL Very high Standard traceable to the Center for Disease Conrtrol and Prevention (CDC) test method. Performed By: #### L IPID, TSH3 wRFLX, [id number] #### [facility] [address] VLDL CHOLESTEROL 16 mg/dL Normal [facility] Comment on above: Performed By: #### L IPID, TSH3 wRFLX, [id number] #### [facility] [address] Serum or plasma high density lipoprotein (HDL) cholesterol measurementOrdered By: Dar Nation on 11-28-2022 Cholesterol in HDL [Mass/Vol] 109 mg/dL High 23-[address] [facility] Comment on above: HDL CHOL ATP-III CLA SSIFICATION Cardiovascular RiskHDL > or equal to 60 mg/dL LOWHDL < 40 mg/dL HIGH Result Comment: HDL CHOL ATP-III CLASSIFICATION Cardiovascular Risk HDL > or equal to 60 mg/dL LOW HDL < 40 mg/dL HIGH Performed By: #### L IPID, TSH3 wRFLX, [id number] #### [facility] [address] Serum or plasma total choles terol/high density lipoprotein (HDL) cholesterol mass ratOrdered By: Dar Nation on 11-28-2022 Cholesterol.total/Sarah sterol in HDL [Mass ratio] 1.8 {ratio} Normal <5.[address] [facility] Comment on above: Performed By: #### L IPID, TSH3 wRFLX, [id number] #### [facility] [address] Thyroid Stim Hormone w/Rflxo n 11-28-2022 Thyroid Stim Hormone w/Rflx 1.79 u[iU]/mL Normal 0.45-5.33 [facility] Comment on above: Performed By: #### L IPID, TSH3 wRFLX, [id number] #### [facility] [address] Thyrotropin [Units/volume] i n Serum or PlasmaOrdered By: Dar Nation on 11-28-2022 TSH Qn 1.79 m[IU]/L 0.45-5.[address] [facility] Triglyceride [Mass/volume] i n Serum or PlasmaOrdered By: Dar Nation on 11-28-2022 Triglyceride [Mass/Vol] 80 mg/dL 0-149 [facility] Comment on above: TRIG ATP III CLASSIF ICATIONTRIG less than 150 mg/dL NormalTRIG 150-199 mg/dL Borderline highTRIG 200-500 mg/dL High TRIG greater than 500 mg/dL Very highStandard traceable to the Center for Disease Conrtrol and Prevention (CDC) test method. Vitamin D 25 Hydroxy Totalon 11-28-2022 Vitamin D 25 Hydroxy Total 32.8 ng/mL Normal 30-100 [facility] Comment on above: Result Comment: JESSICA MIN D STATUS 25(OH)VITAMIN D RANGE (ng/mL) Deficient <20 Insufficient 20 to <30 Sufficient 30 to 100 Reference: Sharmaine MF,Aye NC, Geremias YOUNG, et al. Evaluation,treatment, and prevention of vitamin D deficiency; an Endocrine Society clinical practice guideline. JCEM. 2010; 96(7):1911-30. PERFORMED BY: [place] [address] PATHOLOGIST FLOUR INSPECTOR KELLIE ALVARADO M.D. Performed By: #### L IPID, TSH3 wRFLX, [id number] ####[facility] [id number] Vitamin D+Metabolites [Mass/ volume] in Serum or PlasmaOrdered By: Dar Rios on 11-28-2022 Vitamin D+Metabolites [Mass/Vol] 32.8 ng/mL 30-[address] [facility] Comment on above: VITAMIN D STATUS 25( [place])VITAMIN D RANGE (ng/mL) Deficient <20 Insufficient 20 to <30Sufficient 30 to 100Reference: Sharmaine MF,Aye MACKENZIE, Geremias YOUNG, et al. Evaluation,treatment, and prevention of vitamin D deficiency; an Endocrine Society clinical practice guideline. JCEM. 2010; 96(7):1911-30. Alanine aminotransferase [En zymatic activity/volume] in Serum or PlasmaOrdered By: Sara Tripathi on 11-27-2022 ALT [Catalytic activity/Vol] 19 U/L Normal 7-[address] [facility] Comment on above: Performed By: #### C BC, ETOH, CMP, HS TROP, TSH3 ####[facility] [id number] [place] [id number] [facility] Albumin [Mass/volume] in Ser um or Plasma by Bromocresol green (BCG) dye binding methoOrdered By: Sara Tripathi on 11-27-2022 Albumin BCG dye [Mass/Vol] 4.2 g/dL 3.5-5.[address] [facility] Alkaline phosphatase [Enzyma tic activity/volume] in Serum or PlasmaOrdered By: Sara Tripathi on 11-27-2022 ALP [Catalytic activity/Vol] 56 U/L Normal 34-[address] [facility] Comment on above: Performed By: #### C BC, ETOH, CMP, HS TROP, TSH3 ####[facility] [id number] [place] [id number] [facility] Amphetamine Screen Ql (U)Ord ered By: Sara Tripathi on 11-27-2022 Amphetamines Ql (U) Negative Negative [facility] Aspartate aminotransferase [ Enzymatic activity/volume] in Serum or PlasmaOrdered By: Sara Tripathi on 11-27-2022 AST [Catalytic activity/Vol] 31 U/L Normal 13-[address] [facility] Comment on above: Performed By: #### C BC, ETOH, CMP, HS TROP, TSH3 ####[place] [id number] [address] Automated basophil %Ordered By: Sara Tripathi on 11-27-2022 Basophils/100 WBC (Bld) 3.0 % Normal . [facility] Comment on above: Performed By: #### C BC, ETOH, CMP, HS TROP, TSH3 ####[address] Automated basophil countOrde red By: Sara Tripathi on 11-27-2022 Basophils (Bld) [#/Vol] 0.2 10*3/uL Normal 0.0-0.[address] [facility] Comment on above: Result Comment: PERF ORMED BY: [facility] [address] [place] [address] PATHOLOGIST FLOUR INSPECTOR KELLIE ALVARADO M.D. Performed By: #### C BC, ETOH, CMP, HS TROP, TSH3 ####[address] Automated blood monocyte cou ntOrdered By: Sara Tripathi on 11-27-2022 Monocytes (Bld) [#/Vol] 0.6 10*3/uL Normal 0.0-0.[address] [facility] Comment on above: Performed By: #### C BC, ETOH, CMP, HS TROP, TSH3 ####[address] Automated eosinophil %Ordere d By: Sara Tripathi on 11-27-2022 Eosinophils/100 WBC (Bld) 1.1 % Normal . [facility] Comment on above: Performed By: #### C BC, ETOH, CMP, HS TROP, TSH3 ####[address] Automated eosinophil countOr dered By: Sara Tripathi on 11-27-2022 Eosinophils (Bld) [#/Vol] 0.1 10*3/uL Normal 0.0-0.[address] [facility] Comment on above: Performed By: #### C BC, ETOH, CMP, HS TROP, TSH3 ####[address] Automated erythrocytes count in urine sediment (number/area)Ordered By: Sara Tripathi on 11-27-2022 RBC Auto (Urine sed) [#/Area] 5-9 [HPF] 0-[address] [facility] Automated leukocytes count i n urine sediment (number/area)Ordered By: Sara Tripathi on 11-27-2022 WBC Auto (Urine sed) [#/Area] 50-100 [HPF] 0-[address] [facility] Automated monocyte %Ordered By: Sara Tripathi on 11-27-2022 Monocytes/100 WBC (Bld) 8.9 % Normal . [facility] Comment on above: Performed By: #### C BC, ETOH, CMP, HS TROP, TSH3 ####[facility] [id number] Automated neutrophil %Ordere d By: Sara Tripathi on 11-27-2022 Neutrophils/100 WBC (Bld) 75.7 % Normal . [facility] Comment on above: Performed By: #### C BC, ETOH, CMP, HS TROP, TSH3 ####[facility] [id number] Automated urine color determ inationOrdered By: Sara Tripathi on 11-27-2022 Color (U) Dark yellow Critically abnormal Yellow [facility] Comment on above: Order Comment: Name Collection Type:: Clean-Voided Midstream Performed By: #### C UU, ADDONUAPLUS, UHCG, URDS #### [facility] [address] Automated urine hyaline cast s count (number/volume)Ordered By: Sara Tripathi on 11-27-2022 Hyaline casts Auto (U) [#/Vol] None seen [LPF] 0-[address] [facility] Barbiturates [Presence] in U rine by Screen methodOrdered By: Sara Tripathi on 11-27-2022 Barbiturates Screen Ql (U) Negative Negative [facility] Benzodiazepines Screen Ql (U )Ordered By: Sara Tripathi on 11-27-2022 Benzodiazepines Ql (U) Negative Negative Fi [facility] Benzoylecgonine [Presence] i n Urine by Screen methodOrdered By: Sara Tripathi on 11-27-2022 Benzoylecgonine Screen Ql (U) Negative Negative [facility] Bilirubin Test strip Ql (U)O rdered By: Sara Tripathi on 11-27-2022 Bilirubin Ql (U) Negative Negative [facility] Bilirubin.total [Mass/volume ] in Serum or PlasmaOrdered By: Sara Tripathi on 11-27-2022 Bilirubin [Mass/Vol] 0.7 mg/dL Normal 0.3-1.0 [facility] Comment on above: Performed By: #### C BC, ETOH, CMP, HS TROP, TSH3 ####[facility] [id number] abdomen pelvis wo conon 1 CT abdomen pelvis wo con [facility] [address] [place] [address] [place] [address] CT Scan Report Signed Patient: Antoinette Recio MR#: [id number] : 1995 Acct:[id number] Age/Sex: 27 / F ADM Date: 11/27/22 Loc: ER Room: Type: [facility] ER Attending Dr: Copies to: [...] Vipul Rucker M.D.11/27/2022 11:17 AM Dictation Location: [place] [address] Transcribed By: [facility] 11/27/221116 Dictated By: Vipul Rucker II, MD 11/27/221111 Signed By: 11/27/22 111 Normal [facility] Calcium [Mass/volume] in Ser um or PlasmaOrdered By: Sara Tripathi on 11-27-2022 Calcium [Mass/Vol] 9.4 mg/dL Normal 8.6-10.3 [facility] Comment on above: Performed By: #### C BC, ETOH, CMP, HS TROP, TSH3 ####[facility] [id number] [place] [id number] [facility] Cannabinoids [Presence] in U rine by Screen methodOrdered By: Sara Tripathi on 11-27-2022 Cannabinoids Screen Ql (U) Positive Negative [facility] Comment on above: These are unconfirme d results and should not be used for legal purposes. Drug Cut-Off Concentration: AMPH 1000 ng/mL CARMELLA 200 ng/mL GERMAN 200 ng/mL COCM 300 ng/mL OP 300 ng/mL PCP 25 ng/mL THC 20 ng/mL Carbon dioxide, total [Moles /volume] in Serum or PlasmaOrdered By: Sara Tripathi on 11-27-2022 CO2 [Moles/Vol] 24.9 mmol/L Normal 21.0-31.0 [facility] Comment on above: Performed By: #### C BC, ETOH, CMP, HS TROP, TSH3 ####[facility] [id number] [place] [address] [facility] Casts typing in urine sedime nt by light microscopyOrdered By: Sara Tripathi on 11-27-2022 Casts LM Nom (Urine sed) None seen [LPF] None Seen [facility] Chloride [Moles/volume] in S phil or PlasmaOrdered By: Sara Tripathi on 11-27-2022 Chloride [Moles/Vol] 101 mmol/L Normal 98-107 [facility] Comment on above: Performed By: #### C BC, ETOH, CMP, HS TROP, TSH3 ####[place] [id number] [facility] Coarse granular casts count in urine sediment by microscopy low power field (number/aOrdered By: Sara Tripathi on 11-27-2022 Coarse Granular Casts LM.LPF (Urine sed) [#/Area] 0-1 [LPF] 0-[address] [facility] Complete Blood Count Auto Di ffon 11-27-2022 Mean Corpuscular HGB Conc 33.0 g/dL Normal 32.0-35.0 [facility] Comment on above: Performed By: #### C BC, ETOH, CMP, HS TROP, TSH3 ####[place] [id number] [facility] Monocytes/100 WBC (Bld) 17.41 % Normal 0.00-20.00 [facility] Comment on above: Performed By: #### C BC, ETOH, CMP, HS TROP, TSH3 ####[address] [address] [facility] NRBC% 0.0 /100{WBC} Normal 0-0.5 [facility] Comment on above: Performed By: #### C BC, ETOH, CMP, HS TROP, TSH3 ####[address] [address] [facility] Comprehensive Metabolic Pane shaji 11-27-2022 Albumin [Mass/Vol] 4.2 g/dL Normal 3.5-5.7 [facility] Comment on above: Performed By: #### C BC, ETOH, CMP, HS TROP, TSH3 ####[place] [id number] [facility] Creatinine Clr Calc Pharmacy 110.58 Normal [facility] Comment on above: Performed By: #### C BC, ETOH, CMP, HS TROP, TSH3 ####[facility] [place] [address] [place] GFR/1.73 sq M.predicted MDRD (S/P/Bld) [Vol rate/Area] mL/min/{1.73_m2} Normal [facility] Comment on above: Performed By: #### C BC, ETOH, CMP, HS TROP, TSH3 ####[place] [id number] [place] Creatinine [Mass/volume] in Serum or PlasmaOrdered By: Saar Tripathi on 11-27-2022 Creatinine [Mass/Vol] 0.83 mg/dL Normal 0.60-1.20 [facility] Comment on above: Performed By: #### C BC, ETOH, CMP, HS TROP, TSH3 ####[place] [id number] [place] Dipstick and Microscopicon 1 Appearance (U) Turbid Critically abnormal Clear [facility] Comment on above: Order Comment: Name Collection Type:: Clean-Voided Midstream Performed By: #### C UU, ADDONUAPLUS, UHCG, URDS #### [facility] [address] [place] [id number] [place] Bacteria,Urine 4+ High None Seen [facility] Comment on above: Order Comment: Name Collection Type:: Clean-Voided Midstream Performed By: #### C UU, ADDONUAPLUS, UHCG, URDS #### [facility] [address] [place] [id number] [place] Bilirubin,Urine Negative Normal Negative [facility] Comment on above: Order Comment: Name Collection Type:: Clean-Voided Midstream Performed By: #### C UU, ADDONUAPLUS, UHCG, URDS #### [facility] [address] [place] [id number] [place] Coarse Granular Casts,Urine 0-1 Normal 0-1 [facility] Comment on above: Order Comment: Name Collection Type:: Clean-Voided Midstream Performed By: #### C UU, ADDONUAPLUS, UHCG, URDS #### [address] Fine Granular Casts,Urine 0-1 Normal 0-1 [facility] Comment on above: Order Comment: Name Collection Type:: Clean-Voided Midstream Performed By: #### C UU, ADDONUAPLUS, UHCG, URDS #### [address] Glucose Ql (U) Normal Normal Normal [facility] Comment on above: Order Comment: Name Collection Type:: Clean-Voided Midstream Performed By: #### C UU, ADDONUAPLUS, UHCG, URDS #### [address] Hyaline Casts,Urine None Seen Normal 0-1 [facility] Comment on above: Order Comment: Name Collection Type:: Clean-Voided Midstream Performed By: #### C UU, ADDONUAPLUS, UHCG, URDS #### [address] Ketones Ql (U) Negative Normal Negative [facility] Comment on above: Order Comment: Name Collection Type:: Clean-Voided Midstream Performed By: #### C UU, ADDONUAPLUS, UHCG, URDS #### [address] Leukocyte esterase Test strip Ql (U) 2+ High Negative [facility] Comment on above: Order Comment: Name Collection Type:: Clean-Voided Midstream Performed By: #### C UU, ADDONUAPLUS, UHCG, URDS #### [place] [address] [place] Nitrite,Urine Negative Normal Negative [facility] Comment on above: Order Comment: Name Collection Type:: Clean-Voided Midstream Performed By: #### C UU, ADDONUAPLUS, UHCG, URDS #### [place] [address] [place] Occult Blood,Urine 1+ High Negative [facility] Comment on above: Order Comment: Name Collection Type:: Clean-Voided Midstream Performed By: #### C UU, ADDONUAPLUS, UHCG, URDS #### [address] Other Casts,Urine None Seen Normal None Seen [facility] Comment on above: Order Comment: Name Collection Type:: Clean-Voided Midstream Performed By: #### C UU, ADDONUAPLUS, UHCG, URDS #### [address] Protein,Urine Trace High Negative [facility] Comment on above: Order Comment: Name Collection Type:: Clean-Voided Midstream Performed By: #### C UU, ADDONUAPLUS, UHCG, URDS #### [address] RBC,Urine 5-9 High 0-4 [facility] Comment on above: Order Comment: Name Collection Type:: Clean-Voided Midstream Performed By: #### C UU, ADDONUAPLUS, UHCG, URDS #### [address] Specificy [place],Urine 1.023 Normal 1.001-1.030 [facility] Comment on above: Order Comment: Name Collection Type:: Clean-Voided Midstream Performed By: #### C UU, ADDONUAPLUS, UHCG, URDS #### [address] Squamous Epithelial Cell,Urine 20-30 High 0-2 [facility] Comment on above: Order Comment: Name Collection Type:: Clean-Voided Midstream Performed By: #### C UU, ADDONUAPLUS, UHCG, URDS #### [address] Urobilinogen,Urine Normal Normal Normal [facility] Comment on above: Order Comment: Name Collection Type:: Clean-Voided Midstream Performed By: #### C UU, ADDONUAPLUS, UHCG, URDS #### [address] WBC,Urine 50-100 High 0-4 [facility] Comment on above: Order Comment: Name Collection Type:: Clean-Voided Midstream Performed By: #### C UU, ADDONUAPLUS, UHCG, URDS #### [address] Drug Screen,Urineon 11-28-19 23 Amphetamine Screen,Urine Negative Normal Negative [facility] Comment on above: Performed By: #### C UU, ADDONUAPLUS, UHCG, URDS #### [address] Barbiturate Screen,Urine Negative Normal Negative [facility] Comment on above: Performed By: #### C UU, ADDONUAPLUS, UHCG, URDS #### [address] Benzodiazepines Screen,Urine Negative Normal Negative [facility] Comment on above: Performed By: #### C UU, ADDONUAPLUS, UHCG, URDS #### [address] Cannabinoid Screen,Urine Positive High Negative [facility] Comment on above: Result Comment: Thes e are unconfirmed results and should not be used for legal purposes. Drug Cut-Off Concentration: AMPH 1000 ng/mL CARMELLA 200 ng/mL GERMAN 200 ng/mL COCM 300 ng/mL OP 300 ng/mL PCP 25 ng/mL THC 20 ng/mL PERFORMED BY: [place] [address] PATHOLOGIST FLOUR INSPECTOR KELLIE ALVARADO M.D. Performed By: #### C UU, ADDONUAPLUS, UHCG, URDS #### [address] Cocaine Screen,Urine Negative Normal Negative [facility] Comment on above: Performed By: #### C UU, ADDONUAPLUS, UHCG, URDS #### [facility] [address] Opiate Screen,Urine Negative Normal Negative [facility] Comment on above: Performed By: #### C UU, ADDONUAPLUS, UHCG, URDS #### [facility] [address] Phencyclidine Screen,Urine Negative Normal Negative [facility] Comment on above: Performed By: #### C UU, ADDONUAPLUS, UHCG, URDS #### [facility] [address] ECG 12 lead ECGon 11-27-2022 ECG 12 lead ECG [facility] [place] [address] [place] [address] Electrocardiograph Report Signed Patient: Antoinette Recio MR#: [id number] : 1995 Acct:[id number] Age/Sex: 27 / F ADM Date: 11/27/22 Loc: ER Room: Type: [facility] ER Attending Dr: Ordering Provider: [...] By Sara Tripathi MD 11/27/22 1505 Normal [facility] Erythrocyte distribution wid th [Ratio] by Automated countOrdered By: Sara Tripathi on 11-27-2022 Erythrocyte distribution width (RBC) [Ratio] 15.9 % High 11.9-15.[address] [facility] Comment on above: Performed By: #### C BC, ETOH, CMP, HS TROP, TSH3 ####[place] [id number] [place] [id number] [facility] Erythrocytes [#/volume] in B lood by Automated countOrdered By: Sara Tripathi on 11-27-2022 RBC (Bld) [#/Vol] 4.34 10*6/uL Normal 3.60-5.00 [facility] Comment on above: Performed By: #### C BC, ETOH, CMP, HS TROP, TSH3 ####[place] [id number] [facility] Ethanol [Mass/volume] in Ser um or PlasmaOrdered By: Sara Tripathi on 11-27-2022 Ethanol [Mass/Vol] 26 mg/dL Normal [facility] Comment on above: Performed By: #### C BC, ETOH, CMP, HS TROP, TSH3 ####[place] [id number] [facility] Ethanol [Mass/Vol] 0.026 % [facility] Ethyl Alcohol Profileon 11-09 Percent Ethanol 0.026 % Normal [facility] Comment on above: Result Comment: PERF ORMED BY: [facility] [address] [place] [id number] PATHOLOGIST FLOUR INSPECTOR KELLIE ALVARADO M.D. Performed By: #### C BC, ETOH, CMP, HS TROP, TSH3 ####[place] [phone] [facility] Fine granular cast count in urine sediment by microscopy (number/low power field )Ordered By: Sara Tripathi on 11-27-2022 Fine Granular Casts LM.LPF (Urine sed) [#/Area] 0-1 [LPF] 0-[address] [facility] Glucose [Mass/volume] in Ser um or PlasmaOrdered By: Sara Tripathi on 11-27-2022 Glucose [Mass/Vol] 82 mg/dL Normal 70-100 [facility] Comment on above: ADA recommended refe rence rangeRandom Glucose Reference Range is dependent on time and content of last meal. Glucose of more than 200 mg/dL in a nonstressed, ambulatory subject supports the diagnosis of Diabetes Mellitus. Result Comment: [place] Glucose Reference Range is dependent on time and content of last meal. Glucose of more than 200 mg/dL in a nonstressed, ambulatory subject supports the diagnosis of Diabetes Mellitus. ADA recommended reference range Performed By: #### C BC, ETOH, CMP, HS TROP, TSH3 ####[facility] HCG ( test) IA.rapi d Ql (U)Ordered By: Sara Tripathi on 11-27-2022 HCG ( test) Ql (U) Negative [facility] HCG,Urineon 11-27-2022 Beta HCG ( test) Ql (U) Negative Normal [facility] Comment on above: Order Comment: Name Collection Type:: Clean-Voided Midstream Result Comment: PERF ORMED BY: [facility] [address] [place] [address] PATHOLOGIST FLOUR INSPECTOR KELLIE ALVARADO M.D. Performed By: #### C UU, ADDONUAPLUS, UHCG, URDS #### [address] Hematocrit [Volume Fraction] of Blood by Automated countOrdered By: Sara Tripathi on 11-27-2022 Hematocrit (Bld) [Volume fraction] 38.0 % Normal 34.0-46.[address] [facility] Comment on above: Performed By: #### C BC, ETOH, CMP, HS TROP, TSH3 ####[place] [id number] Hemoglobin [Mass/volume] in BloodOrdered By: Sara Tripathi on 11-27-2022 Hemoglobin (Bld) [Mass/Vol] 12.5 g/dL Normal 11.8-15.[address] [facility] Comment on above: Performed By: #### C BC, ETOH, CMP, HS TROP, TSH3 ####[place] [phone] Ketones Auto test strip (U) [Mass/Vol]Ordered By: Sara Tripathi on 11-27-2022 Ketones (U) [Mass/Vol] Negative Negative [facility] Leukocytes [#/volume] correc christelle for nucleated erythrocytes in Blood by Automated counOrdered By: Sara Tripathi on 11-27-2022 WBC corrected for nucl RBC Auto (Bld) [#/Vol] 6.7 10*3/uL 3.8-11.[address] [facility] Leukocytes [#/volume] in Blo od by Automated countOrdered By: aSra Tripathi on 11-27-2022 WBC (Bld) [#/Vol] 6.7 10*3/uL Normal 3.8-11.6 [facility] Comment on above: Performed By: #### C BC, ETOH, CMP, HS TROP, TSH3 ####[place] [phone] [facility] Lymphocytes [#/volume] in Bl ood by Automated countOrdered By: Sara Tripathi on 11-27-2022 Lymphocytes (Bld) [#/Vol] 0.8 10*3/uL Low 1.00-4.[address] [facility] Comment on above: Performed By: #### C BC, ETOH, CMP, HS TROP, TSH3 ####[place] [phone] [facility] Lymphocytes/100 leukocytes i n Blood by Automated countOrdered By: Sara Tripathi on 11-27-2022 Lymphocytes/100 WBC (Bld) 11.3 % Normal . [facility] Comment on above: Performed By: #### C BC, ETOH, CMP, HS TROP, TSH3 ####[place] [phone] [facility] MCH [Entitic mass] by Automa christelle countOrdered By: Sara Tripathi on 11-27-2022 MCH (RBC) [Entitic mass] 28.8 pg Normal 24.7-34.[address] [facility] Comment on above: Performed By: #### C BC, ETOH, CMP, HS TROP, TSH3 ####[place] [phone] [facility] MCHC Auto (RBC) [Mass/Vol]Or dered By: Sara Tripathi on 11-27-2022 MCHC (RBC) [Mass/Vol] 33.0 g/dL 32.0-35.0 [facility] MCV [Entitic volume] by Auto mated countOrdered By: Sara Tripathi on 11-27-2022 MCV (RBC) [Entitic vol] 87.5 fL Normal 80-100 [facility] Comment on above: Performed By: #### C BC, ETOH, CMP, HS TROP, TSH3 ####[facility] Monocyte distribution width [Entitic volume] in Blood by AutomatedOrdered By: Sara Tripathi on 11-27-2022 Monocyte distribution width Auto (Bld) [Entitic vol] 17.41 % 0.00-20.[address] [facility] Neutrophils [#/volume] in Bl ood by Automated countOrdered By: Sara Tripathi on 11-27-2022 Neutrophils (Bld) [#/Vol] 5.1 10*3/uL Normal 1.8-7.[address] [facility] Comment on above: Performed By: #### C BC, ETOH, CMP, HS TROP, TSH3 ####[facility] Nitrite Test strip Ql (U)Ord ered By: Sara Tripathi on 11-27-2022 Nitrite Ql (U) Negative Negative [facility] No Panel InformationOrdered By: Sara Tripathi on 11-27-2022 Estimated GFR (CKD-EPI) > 60.0 mL/Min [facility] Creatinine Clearance (Chem 110.[address] [facility] Nucleated erythrocytes [Pres ence] in Blood by Automated countOrdered By: Sara Tripathi on 11-27-2022 Nucleated RBC Auto Ql (Bld) 0.0 /100{WBC} 0-0.[address] [facility] Opiates [Presence] in Urine by Screen methodOrdered By: Sara Tripathi on 11-27-2022 Opiates Screen Ql (U) Negative Negative [facility] Phencyclidine Screen Ql (U)O rdered By: Sara Tripathi on 11-27-2022 Phencyclidine Ql (U) Negative Negative [facility] Platelet mean volume [Entiti c volume] in Blood by Automated countOrdered By: Sara Tripathi on 11-27-2022 Platelet mean volume (Bld) [Entitic vol] 7.1 fL Normal 6.3-10.[address] [facility] Comment on above: Performed By: #### C BC, ETOH, CMP, HS TROP, TSH3 ####[address] Platelets [#/volume] in Bloo d by Automated countOrdered By: Sara Tripathi on 11-27-2022 Platelets (Bld) [#/Vol] 402 10*3/uL Normal 150-[address] [facility] Comment on above: Performed By: #### C BC, ETOH, CMP, HS TROP, TSH3 ####[address] Potassium [Moles/volume] in Serum or PlasmaOrdered By: Sara Tripathi on 11-27-2022 Potassium [Moles/Vol] 3.3 mmol/L Low 3.5-5.1 [facility] Comment on above: Performed By: #### C BC, ETOH, CMP, HS TROP, TSH3 ####[address] Protein Auto test strip (U) [Mass/Vol]Ordered By: Sara Tripathi on 11-27-2022 Protein (U) [Mass/Vol] Trace mg/dL Negative F [facility] Protein [Mass/volume] in Ser um or PlasmaOrdered By: Sara Tripathi on 11-27-2022 Protein [Mass/Vol] 7.1 g/dL Normal 6.4-8.9 [facility] Comment on above: Performed By: #### C BC, ETOH, CMP, HS TROP, TSH3 ####[address] Serum globulin measurement b y calculation (mass/volume)Ordered By: Sara Tripathi on 11-27-2022 Globulin (S) [Mass/Vol] 2.9 g/dL Normal [facility] Comment on above: Performed By: #### C BC, ETOH, CMP, HS TROP, TSH3 ####[place] [phone] [facility] Serum or plasma albumin/glob ulin mass ratioOrdered By: Sara Tripathi on 11-27-2022 Albumin/Globulin [Mass ratio] 1.4 {ratio} Normal [facility] Comment on above: Performed By: #### C BC, ETOH, CMP, HS TROP, TSH3 ####[place] [id number] [place] [address] [facility] Serum or plasma anion gap de terminationOrdered By: Sara Tripathi on 11-27-2022 Anion gap [Moles/Vol] 15.4 mmol/L High 6.0-15.0 [facility] Comment on above: Performed By: #### C BC, ETOH, CMP, HS TROP, TSH3 ####[place] [id number] [place] [address] [facility] Sodium [Moles/volume] in Ser um or PlasmaOrdered By: Sara Tripathi on 11-27-2022 Sodium [Moles/Vol] 138 mmol/L Normal 136-145 [facility] Comment on above: Performed By: #### C BC, ETOH, CMP, HS TROP, TSH3 ####[place] [id number] [place] [phone] [facility] Specific gravity Auto test s trip (U) [Rel density]Ordered By: Sara Tripathi on 11-27-2022 Specific gravity (U) [Rel density] 1.023 1.001-1.[address] [facility] Squamous epithelial cells de tection in urine sediment by light microscopyOrdered By: Sara Tripathi on 11-27-2022 Epithelial cells.squamous LM Ql (Urine sed) 20-30 [HPF] 0-[address] [facility] Thyrotropin [Units/volume] i n Serum or PlasmaOrdered By: Sara Tripathi on 11-27-2022 TSH Qn 2.35 m[IU]/L Normal 0.45-5.[address] [facility] Comment on above: Result Comment: PERF ORMED BY: [facility] [address] [place] [address] PATHOLOGIST FLOUR INSPECTOR KELLIE ALVARADO M.D. Performed By: #### C BC, ETOH, CMP, HS TROP, TSH3 ####[place] [id number] [place] [phone] [facility] Troponin I High Sensitivityo n 11-27-2022 Troponin I High Sensitivity 3.2 pg/mL Normal 0.0-15.0 [facility] Comment on above: Result Comment: PERF ORMED BY: [facility] [address] [place] [address] PATHOLOGIST FLOUR INSPECTOR KELLIE ALVARADO M.D. Performed By: #### C BC, ETOH, CMP, HS TROP, TSH3 ####[place] [id number] [place] [phone] [facility] Troponin I.cardiac [Mass/vol ume] in Serum or Plasma by Detection limit <= 0.01 ng/Ordered By: Sara Tripathi on 11-27-2022 Troponin I.cardiac DL <= 0.01 ng/mL [Mass/Vol] 3.2 pg/mL 0.0-15.[address] [facility] Urea nitrogen [Mass/volume] in Serum or PlasmaOrdered By: Sara Tripathi on 11-27-2022 Urea nitrogen [Mass/Vol] 9 mg/dL Normal 7-[address] [facility] Comment on above: Performed By: #### C BC, ETOH, CMP, HS TROP, TSH3 ####[place] [id number] [place] [phone] [facility] Urine Cultureon 11-27-2022 Bacteria identified Cx Nom (U) ORGANISM: Escherichia coli (O:ESCCOL) [place] Count >100,000 Aerobic GLENDA Charge (NMIC56) --- [...] RESISTANT TO ALL B-LACTAM DRUGS. PERFORMED BY: [place] [address] PATHOLOGIST FLOUR INSPECTOR KELLIE ALVARADO M.D. Normal [facility] Comment on above: Performed By: #### C UU, ADDONUAPLUS, UHCG, URDS #### [facility] [address] [place] [address] Urine bacteria detection by automated methodOrdered By: Sara Tripathi on 11-27-2022 Bacteria Auto Ql (U) 4+ None Seen [facility] Urine clarity by refractomet ry automatedOrdered By: Sara Tripathi on 11-27-2022 Clarity Refractometry automated (U) Turbid Clear [facility] Urine culture routineOrdered By: Sara Tripathi on 11-27-2022 Bacteria identified Cx Nom (U) Escherichia coli [facility] Urine glucose measurement by automated test strip (mass/volume)Ordered By: Sara Tripathi on 11-27-2022 Glucose Auto test strip (U) [Mass/Vol] Normal mg/dL Normal [facility] Urine hemoglobin detection b y automated test stripOrdered By: Sara Tripathi on 11-27-2022 Hemoglobin Auto test strip Ql (U) 1+ Negative [facility] Urine leukocyte esterase det ection by automated test stripOrdered By: Sara Tripathi on 11-27-2022 Leukocyte esterase Auto test strip Ql (U) 2+ Negative [facility] Urine pH measurement by auto mated test stripOrdered By: Sara Tripathi on 11-27-2022 pH (U) 5.0 [pH] Normal 5.0-9.[address] [facility] Comment on above: Order Comment: Name Collection Type:: Clean-Voided Midstream Performed By: #### C UU, ADDONUAPLUS, UHCG, URDS #### [address] Urobilinogen Auto test strip (U) [Mass/Vol]Ordered By: Sara Tripathi on 11-27-2022 Urobilinogen (U) [Mass/Vol] Normal mg/dL Normal [facility] XR chest 1V portableon 11-27 XR chest 1V portable [facility] [address] [place] [address] XRay Report Signed Patient: Antoinette Recio MR#: [id number] : 1995 Acct:[id number] Age/Sex: 27 / F ADM Date: 11/27/22 Loc: ER Room: Type: [facility] ER Attending Dr: Copies to: [...] Vipul Rucker M.D.11/27/2022 11:05 AM Dictation Location: [place] [address] Transcribed By: [facility] 11/27/22 110 Dictated By: Vipul Rucker II, MD 11/27/22 110 Signed By: 11/27/22 110 Normal [facility] Alanine aminotransferase [En zymatic activity/volume] in Serum or PlasmaOrdered By: Ji Smith on 05-11-2022 ALT [Catalytic activity/Vol] 27 U/L 7-[address] [facility] Albumin [Mass/volume] in Ser um or Plasma by Bromocresol green (BCG) dye binding methoOrdered By: Ji Smith on 05-11-2022 Albumin BCG dye [Mass/Vol] 4.5 g/dL 3.5-5.[address] [facility] Alkaline phosphatase [Enzyma tic activity/volume] in Serum or PlasmaOrdered By: Ji Smith on 05-11-2022 ALP [Catalytic activity/Vol] 51 U/L 34-[address] [facility] Aspartate aminotransferase [ Enzymatic activity/volume] in Serum or PlasmaOrdered By: Ji Smith on 05-11-2022 AST [Catalytic activity/Vol] 33 U/L 13-[address] [facility] Bilirubin.total [Mass/volume ] in Serum or PlasmaOrdered By: Ji Smith on 05-11-2022 Bilirubin [Mass/Vol] 0.7 mg/dL 0.3-1.0 [facility] Calcium [Mass/volume] in Ser um or PlasmaOrdered By: Ji Smith on 05-11-2022 Calcium [Mass/Vol] 9.7 mg/dL 8.6-10.3 [facility] Carbon dioxide, total [Moles /volume] in Serum or PlasmaOrdered By: Ji Smith on 05-11-2022 CO2 [Moles/Vol] 25.8 mmol/L 21.0-31.0 [facility] Chloride [Moles/volume] in S phil or PlasmaOrdered By: Ji Smith on 05-11-2022 Chloride [Moles/Vol] 102 mmol/L 98-107 [facility] Creatinine [Mass/volume] in Serum or PlasmaOrdered By: Ji Smith on 05-11-2022 Creatinine [Mass/Vol] 0.68 mg/dL 0.60-1.20 [facility] Globulin Calc (S) [Mass/Vol] Ordered By: Ji Smith on 05-11-2022 Globulin (S) [Mass/Vol] 2.7 g/dL [facility] Glucose [Mass/volume] in Ser um or PlasmaOrdered By: Ji Smith on 05-11-2022 Glucose [Mass/Vol] 93 mg/dL 70-100 [facility] Comment on above: ADA recommended refe rence rangeRandom Glucose Reference Range is dependent on time and content of last meal. Glucose of more than 200 mg/dL in a nonstressed, ambulatory subject supports the diagnosis of Diabetes Mellitus. No Panel InformationOrdered By: Ji Smith on 05-11-2022 Estimated GFR (CKD-EPI) > 60.0 mL/Min [facility] Creatinine Clearance (Chem 129.[address] [facility] Potassium [Moles/volume] in Serum or PlasmaOrdered By: Ji Smith on 05-11-2022 Potassium [Moles/Vol] 3.6 mmol/L 3.5-5.1 [facility] Protein [Mass/volume] in Ser um or PlasmaOrdered By: Ji Smith on 05-11-2022 Protein [Mass/Vol] 7.2 g/dL 6.4-8.9 [facility] Serum or plasma albumin/glob ulin mass ratioOrdered By: Ji Smith on 05-11-2022 Albumin/Globulin [Mass ratio] 1.7 {ratio} [facility] Serum or plasma anion gap de terminationOrdered By: Ji Smith on 05-11-2022 Anion gap [Moles/Vol] 13.8 mmol/L 6.0-15.0 [facility] Sodium [Moles/volume] in Ser um or PlasmaOrdered By: Ji Smith on 05-11-2022 Sodium [Moles/Vol] 138 mmol/L 136-145 [facility] Urea nitrogen [Mass/volume] in Serum or PlasmaOrdered By: Ji Smith on 05-11-2022 Urea nitrogen [Mass/Vol] 11 mg/dL 7-[address] [facility] Acetaminophen [Mass/volume] in Serum or PlasmaOrdered By: Henry Cross on 05-09-2022 Acetaminophen [Mass/Vol] 1.1 ug/mL 10.0-30.[address] [facility] Alanine aminotransferase [En zymatic activity/volume] in Serum or PlasmaOrdered By: Henry Cross on 05-09-2022 ALT [Catalytic activity/Vol] 40 U/L 7-[address] [facility] Albumin [Mass/volume] in Ser um or Plasma by Bromocresol green (BCG) dye binding methoOrdered By: Henry Cross on 05-09-2022 Albumin BCG dye [Mass/Vol] 5.0 g/dL 3.5-5.[address] [facility] Alkaline phosphatase [Enzyma tic activity/volume] in Serum or PlasmaOrdered By: Henry Cross on 05-09-2022 ALP [Catalytic activity/Vol] 61 U/L 34-[address] [facility] Amphetamine Screen Ql (U)Ord ered By: Henry Cross on 05-09-2022 Amphetamines Ql (U) Negative Negative [facility] Aspartate aminotransferase [ Enzymatic activity/volume] in Serum or PlasmaOrdered By: Henry Cross on 05-09-2022 AST [Catalytic activity/Vol] 71 U/L 13-[address] [facility] Automated epithelial cells c ount in urine sediment (number/area)Ordered By: Henry Cross on 05-09-2022 Epithelial cells Auto (Urine sed) [#/Area] 0-1 [HPF] 0-[address] [facility] Automated erythrocytes count in urine sediment (number/area)Ordered By: Henry Cross on 05-09-2022 RBC Auto (Urine sed) [#/Area] 3-4 [HPF] 0-[address] [facility] Automated leukocytes count i n urine sediment (number/area)Ordered By: Henry Cross on 05-09-2022 WBC Auto (Urine sed) [#/Area] 0-1 [HPF] 0-[address] [facility] Barbiturates [Presence] in U rine by Screen methodOrdered By: Henry Cross on 05-09-2022 Barbiturates Screen Ql (U) Negative Negative [facility] Basophils Auto (Bld) [#/Vol] Ordered By: Henry Cross on 05-09-2022 Basophils (Bld) [#/Vol] 0.1 10*3/uL 0.0-0.[address] [facility] Basophils/100 WBC Auto (Bld) Ordered By: Henry Cross on 05-09-2022 Basophils/100 WBC (Bld) 0.9 % . F [facility] Benzodiazepines Screen Ql (U )Ordered By: Henry Cross on 05-09-2022 Benzodiazepines Ql (U) Negative Negative Fi [facility] Benzoylecgonine [Presence] i n Urine by Screen methodOrdered By: Henry Cross on 05-09-2022 Benzoylecgonine Screen Ql (U) Negative Negative [facility] Bilirubin Test strip Ql (U)O rdered By: Henry Cross on 05-09-2022 Bilirubin Ql (U) Negative Negative [facility] Bilirubin.total [Mass/volume ] in Serum or PlasmaOrdered By: Henry Cross on 05-09-2022 Bilirubin [Mass/Vol] 0.4 mg/dL 0.3-1.0 [facility] Calcium [Mass/volume] in Ser um or PlasmaOrdered By: Henry Cross on 05-09-2022 Calcium [Mass/Vol] 9.4 mg/dL 8.6-10.3 [facility] Cannabinoids [Presence] in U rine by Screen methodOrdered By: Henry Cross on 05-09-2022 Cannabinoids Screen Ql (U) Positive Negative [facility] Comment on above: These are unconfirme d results and should not be used for legal purposes. Drug Cut-Off Concentration: AMPH 1000 ng/mL CARMELLA 200 ng/mL GERMAN 200 ng/mL COCM 300 ng/mL OP 300 ng/mL PCP 25 ng/mL THC 20 ng/mL Carbon dioxide, total [Moles /volume] in Serum or PlasmaOrdered By: Henry Cross on 05-09-2022 CO2 [Moles/Vol] 24.5 mmol/L 21.0-31.0 [facility] Chloride [Moles/volume] in S phil or PlasmaOrdered By: Henry Cross on 05-09-2022 Chloride [Moles/Vol] 102 mmol/L 98-107 [facility] Cholesterol [Mass/volume] in Serum or PlasmaOrdered By: Ji Smith on 05-09-2022 Cholesterol [Mass/Vol] 336 mg/dL 140-200 [facility] Comment on above: Chol less than 200 m g/dl low riskChol 201-239 mg/dl borderline riskChol 240 mg/dl and greater high risk Cholesterol in LDL Calc [Mas s/Vol]Ordered By: Ji Smith on 05-09-2022 Cholesterol in LDL [Mass/Vol] 133 mg/dL 0-[address] [facility] Comment on above: LDL ATP III CLASSIFI CATIONLDL less than 100 mg/dL OptimalLDL 100-129 mg/dL Near or above optimalLDL 130-159 mg/dL Borderline highLDL 160-189 mg/dL HighLDL greater than 189 mg/dL Very high Cholesterol in VLDL Calc [Ma ss/Vol]Ordered By: Ji Smith on 05-09-2022 Cholesterol in VLDL [Mass/Vol] 21 mg/dL [facility] Color Auto (U)Ordered By: Valerie Cross on 05-09-2022 Color (U) Yellow Yellow [facility] Creatinine [Mass/volume] in Serum or PlasmaOrdered By: Henry Cross on 05-09-2022 Creatinine [Mass/Vol] 0.76 mg/dL 0.60-1.20 [facility] Eosinophils Auto (Bld) [#/Vo l]Ordered By: Henry Cross on 05-09-2022 Eosinophils (Bld) [#/Vol] 0.1 10*3/uL 0.0-0.[address] [facility] Eosinophils/100 WBC Auto (Bl d)Ordered By: Henry Cross on 05-09-2022 Eosinophils/100 WBC (Bld) 1.3 % . [facility] Erythrocyte distribution wid th Auto (RBC) [Ratio]Ordered By: Henry Cross on 05-09-2022 Erythrocyte distribution width (RBC) [Ratio] 17.8 % 11.9-15.[address] [facility] Ethanol [Mass/volume] in Ser um or PlasmaOrdered By: Henry Cross on 05-09-2022 Ethanol [Mass/Vol] 302 mg/dL [facility] Ethanol [Mass/Vol] 0.302 % [facility] Globulin Calc (S) [Mass/Vol] Ordered By: Henry Cross on 05-09-2022 Globulin (S) [Mass/Vol] 2.8 g/dL [facility] Glucose [Mass/volume] in Ser um or PlasmaOrdered By: Henry Cross on 05-09-2022 Glucose [Mass/Vol] 85 mg/dL 70-100 [facility] Comment on above: ADA recommended refe rence rangeRandom Glucose Reference Range is dependent on time and content of last meal. Glucose of more than 200 mg/dL in a nonstressed, ambulatory subject supports the diagnosis of Diabetes Mellitus. HCG ( test) IA.rapi d Ql (U)Ordered By: Henry Cross on 05-09-2022 HCG ( test) Ql (U) Negative [facility] Hematocrit Auto (Bld) [Volum e fraction]Ordered By: Henry Cross on 05-09-2022 Hematocrit (Bld) [Volume fraction] 40.2 % 34.0-46.[address] [facility] Hemoglobin [Mass/volume] in BloodOrdered By: Henry Cross on 05-09-2022 Hemoglobin (Bld) [Mass/Vol] 13.1 g/dL 11.8-15.[address] [facility] Ketones Auto test strip (U) [Mass/Vol]Ordered By: Henry Cross on 05-09-2022 Ketones (U) [Mass/Vol] Trace [facility] Leukocytes [#/volume] correc christelle for nucleated erythrocytes in Blood by Automated counOrdered By: Henry Cross on 05-09-2022 WBC corrected for nucl RBC Auto (Bld) [#/Vol] 6.3 10*3/uL 3.8-11.[address] [facility] Lymphocytes Auto (Bld) [#/Vo l]Ordered By: Henry Cross on 05-09-2022 Lymphocytes (Bld) [#/Vol] 1.4 10*3/uL 1.00-4.[address] [facility] Lymphocytes/100 WBC Auto (Bl d)Ordered By: Henry Cross on 05-09-2022 Lymphocytes/100 WBC (Bld) 22.7 % . [facility] MCH Auto (RBC) [Entitic mass ]Ordered By: Henry Cross on 05-09-2022 MCH (RBC) [Entitic mass] 29.4 pg 24.7-34.[address] [facility] MCHC Auto (RBC) [Mass/Vol]Or dered By: Henry Cross on 05-09-2022 MCHC (RBC) [Mass/Vol] 32.7 g/dL 32.0-35.[address] [facility] MCV Auto (RBC) [Entitic vol] Ordered By: Henry Cross on 05-09-2022 MCV (RBC) [Entitic vol] 90.0 fL 80-100 F [facility] Monocyte distribution width [Entitic volume] in Blood by AutomatedOrdered By: Henry Cross on 05-09-2022 Monocyte distribution width Auto (Bld) [Entitic vol] 15.97 % 0.00-20.[address] [facility] Monocytes Auto (Bld) [#/Vol] Ordered By: Henry Cross on 05-09-2022 Monocytes (Bld) [#/Vol] 0.4 10*3/uL 0.0-0.[address] [facility] Monocytes/100 WBC Auto (Bld) Ordered By: Henry Cross on 05-09-2022 Monocytes/100 WBC (Bld) 6.5 % . F [facility] Neutrophils Auto (Bld) [#/Vo l]Ordered By: Henry Cross on 05-09-2022 Neutrophils (Bld) [#/Vol] 4.3 10*3/uL 1.8-7.[address] [facility] Neutrophils/100 WBC Auto (Bl d)Ordered By: Henry Cross on 05-09-2022 Neutrophils/100 WBC (Bld) 68.6 % . [facility] Nitrite Test strip Ql (U)Ord ered By: Henry Cross on 05-09-2022 Nitrite Ql (U) Negative Negative [facility] No Panel InformationOrdered By: Henry Cross on 05-09-2022 Estimated GFR (CKD-EPI) > 60.0 mL/Min [facility] Creatinine Clearance (Chem 114.[address] [facility] Nucleated erythrocytes [Pres ence] in Blood by Automated countOrdered By: Henry Cross on 05-09-2022 Nucleated RBC Auto Ql (Bld) 0.0 /100{WBC} 0-0.[address] [facility] Opiates [Presence] in Urine by Screen methodOrdered By: Henry Cross on 05-09-2022 Opiates Screen Ql (U) Negative Negative [facility] Phencyclidine Screen Ql (U)O rdered By: Henry Cross on 05-09-2022 Phencyclidine Ql (U) Negative Negative [facility] Platelet mean volume Auto (B ld) [Entitic vol]Ordered By: Henry Cross on 05-09-2022 Platelet mean volume (Bld) [Entitic vol] 6.7 fL 6.3-10.[address] [facility] Platelets Auto (Bld) [#/Vol] Ordered By: Henry Cross on 05-09-2022 Platelets (Bld) [#/Vol] 330 10*3/uL 150-[address] [facility] Potassium [Moles/volume] in Serum or PlasmaOrdered By: Henry Cross on 05-09-2022 Potassium [Moles/Vol] 3.9 mmol/L 3.5-5.1 [facility] Protein Auto test strip (U) [Mass/Vol]Ordered By: Henry Cross on 05-09-2022 Protein (U) [Mass/Vol] 30 mg/dL Negative [facility] Protein [Mass/volume] in Ser um or PlasmaOrdered By: Henry Cross on 05-09-2022 Protein [Mass/Vol] 7.8 g/dL 6.4-8.9 [facility] RBC Auto (Bld) [#/Vol]Ordere d By: Henry Cross on 05-09-2022 RBC (Bld) [#/Vol] 4.46 10*6/uL 3.60-5.00 [facility] Salicylates [Mass/volume] in Serum or PlasmaOrdered By: Henry Cross on 05-09-2022 Salicylates [Mass/Vol] mg/dL 15.0-30.0 [facility] Comment on above: Patients treated wit h Sulfasalazine may generate a false high result for Salicylate. Serum or plasma albumin/glob ulin mass ratioOrdered By: Henry Cross on 05-09-2022 Albumin/Globulin [Mass ratio] 1.8 {ratio} [facility] Serum or plasma anion gap de terminationOrdered By: Henry Cross on 05-09-2022 Anion gap [Moles/Vol] 18.4 mmol/L 6.0-15.0 [facility] Serum or plasma high density lipoprotein (HDL) cholesterol measurementOrdered By: Ji Smith on 05-09-2022 Cholesterol in HDL [Mass/Vol] 182 mg/dL 35-[address] [facility] Comment on above: HDL CHOL ATP-III CLA SSIFICATION Cardiovascular RiskHDL > or equal to 60 mg/dL LOWHDL < 40 mg/dL HIGH Serum or plasma total choles terol/high density lipoprotein (HDL) cholesterol mass ratOrdered By: Ji Smith on 05-09-2022 Cholesterol.total/Sarah sterol in HDL [Mass ratio] 1.8 {ratio} <5.[address] [facility] Sodium [Moles/volume] in Ser um or PlasmaOrdered By: Henry Cross on 05-09-2022 Sodium [Moles/Vol] 141 mmol/L 136-145 [facility] Specific gravity Auto test s trip (U) [Rel density]Ordered By: Henry Cross on 05-09-2022 Specific gravity (U) [Rel density] 1.013 1.001-1.[address] [facility] Thyrotropin [Units/volume] i n Serum or PlasmaOrdered By: Ji Smith on 05-09-2022 TSH Qn 0.80 m[IU]/L 0.45-5.[address] [facility] Triglyceride [Mass/volume] i n Serum or PlasmaOrdered By: Ji Smith on 05-09-2022 Triglyceride [Mass/Vol] 107 mg/dL 0-149 [facility] Comment on above: TRIG ATP III CLASSIF ICATIONTRIG less than 150 mg/dL NormalTRIG 150-199 mg/dL Borderline highTRIG 200-500 mg/dL High TRIG greater than 500 mg/dL Very highStandard traceable to the Center for Disease Conrtrol and Prevention (CDC) test method. Urea nitrogen [Mass/volume] in Serum or PlasmaOrdered By: Henry Cross on 05-09-2022 Urea nitrogen [Mass/Vol] 11 mg/dL 7-[address] [facility] Urine bacteria detection by automated methodOrdered By: Henry Cross on 05-09-2022 Bacteria Auto Ql (U) None seen None Seen [facility] Urine clarity by refractomet ry automatedOrdered By: Henry Cross on 05-09-2022 Clarity Refractometry automated (U) Clear Clear [facility] Urine glucose measurement by automated test strip (mass/volume)Ordered By: Henry Cross on 05-09-2022 Glucose Auto test strip (U) [Mass/Vol] Normal mg/dL Normal [facility] Urine hemoglobin detection b y automated test stripOrdered By: Henry Cross on 05-09-2022 Hemoglobin Auto test strip Ql (U) 1+ Negative [facility] Urine leukocyte esterase det ection by automated test stripOrdered By: Henry Cross on 05-09-2022 Leukocyte esterase Auto test strip Ql (U) 1+ Negative [facility] Urobilinogen Auto test strip (U) [Mass/Vol]Ordered By: Henry Cross on 05-09-2022 Urobilinogen (U) [Mass/Vol] Normal mg/dL Normal [facility] Vitamin D+Metabolites [Mass/ volume] in Serum or PlasmaOrdered By: Ji Smith on 05-09-2022 Vitamin D+Metabolites [Mass/Vol] 36.0 ng/mL 30-[address] [facility] Comment on above: VITAMIN D STATUS 25( [place])VITAMIN D RANGE (ng/mL) Deficient <20 Insufficient 20 to <30Sufficient 30 to 100Reference: Sharmaine MF,Aye NC, Geremias YOUNG, et al. Evaluation,treatment, and prevention of vitamin D deficiency; an Endocrine Society clinical practice guideline. JCEM. 2010; 96(7):1911-30. WBC Auto (Bld) [#/Vol]Ordere d By: Henry Cross on 05-09-2022 WBC (Bld) [#/Vol] 6.3 10*3/uL 3.8-11.6 [facility] pH Auto test strip (U)Ordere d By: Henry Cross on 05-09-2022 pH (U) 5.5 [pH] 5.0-9.[address] [facility] Office Visiton 12-19-2021 Follow-up visit [id number] Antoinette Recio 1995 F Date Provider Department Center 12/19/2021 [id number] ANTOINE [facility] None No family history on file Level of Service:82326 [place] OFFICE/OUTPT VISIT,PROCEDURE ONLY Reason for Visit and Comments: Rash [[id number]] - Itchy - painful started yesterday - Normal [facility] Progress Noteon 12-19-2021 Progress Note [facility] [address] [facility] [address] Dept: [phone] Dept Loc: [phone] Subjective Antoinette Recio is a 26 y.o. [...] occasionally words aremis-transcribed.) Lorin Tenorio APRN - [employer] 12/19/21 Normal [facility] CT HEAD WO CONon 03-18-2021 CT [...] ATIYA GREWAL Date: 2021-03-17 22:52 Normal [facility] Operative Reporton Operative Report Date of Surgery: 06/14/2020 SURGEON: Jordan Bhakta D.O. MANAGER MEDIA RELATIONS: TOÑO Chowdary CNOR PREOPERATIVE DIAGNOSIS: Displaced midshaft [...] Clean Jordan Bhakta D.O. gls Dictated: 06/14/2020 #[id number] Typed: 06/15/2020 #[id number] cc: Jordan Bhakta D.O. [facility] Comment on above: Result Comment: Elec tronically Signed By: Jordan Bhakta DO\.br\Date and Time Signed: 07/16/20 20:57 EDT Coding Summary.on 06-25-2020 Coding Summary. [id number] Gh 0bWw+PGhlYWQ+RO4VHCRoB 74lxXMgxP5ZO4jDVN6BOYY JAZEYKC0APW9bbWT5ARmuI 2VybiAv LaxsqOKxAW31HXr8VUE7nT lcDBthnP8zqUZkK1l9ImXm FA31yT06NClpMPJvHqD4Bi ZpbjsgbWFy R5fcUmHzgRCqCza+PHRhYm xlIHdpZHRoPScxMDAlJyBz eLnmKK5yYg0zYZGaSTQpbS xhcHNlOiBj b0ejITHdSCagTJ1oqKatZ5 HapHM9QQFvc3b6Pl61uAS+ SIRtYLM6dItvCMfcf843Bo Zkm1icKWX3 aKFrVWrrDLN2U00jl2X2BZ WdDZNdAUM3uSY7qL8wyYnu fzlkQ5GosWSmXxL6WRR8lI AzlL8wxGnn hxhyfU2iFnm+U47DWE3KSY OORE3PKyq7C8CmVfwuuFH+ UP73XVZnLD13xZWgoVZgd5 hebVa1QkGm DAOkCPW2cWplVWtee4YeDH KoJ00kpXHwb4B4ESJnlFus dBUdUhDjeTG0uN7tIEacqg imx0qpkajd Mzzyb0fxpb76eO59Z46jLF fsRBWnZXZ1KGTvWAMfnXwv dd4asR9yMj5+QYipv5cku3 kvjMj2VbTo NXQmsfZpjCzpKXU3m4CzWj 22I6FdxEsiu6IwPlz7mx31 qBGzu3R8vUX3KFsaWPCkcF 1pVAtcTiX1 CVGqGkUopD55bNRzMUloSk 7gbFwgcMfsLW1qTVTaeyot NZOciA1yFKQpsQPliHvxIH 4wNTBpbjtm m919NjKsNCJ7GLGhfBObL4 IemT1fErNxJPGeDEXzK9Lu wVThZZpjE705IBaaMhB6IR IdlgSsT5Dy DTYvfVbgEgI4u5J7Tn9Xo9 FhjcuyNCC6PEzmDCG4XgC2 ClJpJuS3Q6BuNio3RSVcnQ bvNB5bK1Oe AKXxduqpleirlKA6RPCeXU AllM90mWUeSSzaPv7vr0J7 s451NVDxCLDhhP62Le0cwN ogMTBwdCBU tW6rkbbur7pogwtkQzDdBJ AjBHn9AJa9CBVsfCgtOuYg ZAC4HgT5RAB2wUCwgQ6qsE nudiyuzY6k Oyc+I27ouB8qQHC8QSD1ls miIZBcjjOfAQ35DG03H4Ra PjwvdGFibGU+PGRpdiBzdH vwKL3mGoAq i0ckx1UiIRvfA7LeFEMgSN ilYda6WHFcGIU5aVN8hI6d BRMtUJves5B4wEZ0C3Rzli Scek7of0wu KFOgNXbxV48sgKFvb0D7WO NrnMM4GBEjsHrxZmZpqO60 Oyc+ARMjjLxgc1XmDrnqb8 lhb8lwzUt1 UuZuHUNnzbKdfYfkQZJ1k6 JdVx76X13fTJksHQRrNAYa NYHlFURkeBeyvw9mpG7fVu 8+PGNvbCB3 aLN4eY3xFDXoMsM0RFsfP9 27VvFvyFRtNhout3jcm1cn yQw9ReUsGAWxcfQvzLizSG N3i3HfHn02 C96fDJuaNWFdYNXiHDBcCY UoqVwjxq0kyA4gBr1+PC9j f4jagk06hB94xQN+PHRkIH X6vFhqKRyb IKZuhT6gVWofFxM6FOEfGn KjlL81dLLfFDtoGk3caSyt yOnmCV1zTTSlercqh886Xf Qey8arCZXg fDHvTOocATA1S89xy0G7GC LjGJAzQMD8hAQ2kQ0isMkw bjogbGVmdDsgdmVydGljYW roNOoiI709 IHRvcDsnPlBhdGllbnQgTm QqXWy4V9UkIgp5IYLjeRtt TX9kfHQfXOmsLv0nnFnfaS ymSE3mMZRf rauwi414VbYmp9tyVRQucG GwRGgeQMR6S31fh7S4OWZk AYBlGFN0kUK8gR1jqIgfqq ogbGVmdDsg omFmqEmiQWxpAEpmS331VR RvcDsnPkJpcnRoIERhdGU6 ED16WF87bERez0Z3yIB0C3 BhZGRpbmct lphikIZ3ABAqLRJsmO47Vy 3hjSqaFy1pPKVyOOE5CUVm wUIyU3MzjT0xNuPzBRCpCD EvH5FrbLCk OLkwK892ARrbRqP8GAYgtd YjL8TfDFIzzRdjYyY2q3M6 Gw4MQ3D6VQ08VY97fJBye5 F2fLW5A8Zr AKAjtlrocfdahDS1IFArRG VoaR30Ww8azLupRy7mZCQc MOY9ZSTrvFKcC6PwiK0aPz AjMDAwMDAw Z1ZkmYNrLMegQ230GCpdBf F8YHEuneStI9FhMQIwgNrq MaB7f3M8Fq4CAWy9CQ83FJ 76vTIky2L3 xOG8Y0XtSRAfaqwtjvjelB O0JEDsAUOosK30Zn5rpNwq Np7qFWUcGHM0SFFofBSaF9 DwrD7qCcGs KBLbEXExI8LlfUOaLUzgV8 64PQxoBuQ6KPSxifZcX9Xk QDFpyMmkSpA3o5Q1Dx6VVH QuMN47CVZ5 dLI3OQ90QK67S2XoRtvrbE FibGU+PHRhYmxlIHdpZHRo KVhzYHHbRqZglOifPX8rSf 9yZGVyLWNv zDqcbTZpZiLwt0faUYIaDQ uzVB5zlYwsG6DtcYJ2BRKo s3b3Jr70Y00hY2SnaQB+PG QgvWU6xSR8 cJ4wTaTmFaD1BKzrW055Lh OlnDXnXtbfe6suk5usbYd9 BdA6CNZvoyUlkBnkPCM4c7 SgOb18R74d IHdpZHRoPSIxNSUiIHZhbG fvff4rvV3vEb3+PGNvbCB3 qNH6fI9tErQqPkY3BXaeF2 49InRvcCIv Lrrvv0mra1jdbDg6MiEfPE UsudUcsYieLDM3x1VmRu37 U5MwkXxhn4LiBtf7zm63bC Yhu8L4dTY7 Q3CaAPGxsdhfoFYztMvcXH 3xEVNcvvyjDNFuvM7xKEXp D6k9CgEhKrR0BPgwH1Nggm J7JWEedRBo VEzpMLB8N06oo5V2FYUwPQ YiVVT6cIK0gD4gnFdziwva bGVmdDsgdmVydGljYWwtYW dsJ974BWJm lXdiWBDkvK1oNJVnoQRtnB pwMR3hIOTxcphqVkYQSnCC ASawQK2YMjOTIYXuSlxbbC Q+PHRkIHN0 oQiiRJkwDCWuiD2eJPXwJ5 y9CxOdZtJ4ERfqK7LkWJHc elekYm90zZ4mTdXoCqY6BY wcR5LwdfS8 AVLmyTDkKJemBYY9F60ks5 M3ZKQmJSVnAQU6fJE3jV0w bGlnbjogbGVmdDsgdmVydG ljYWwtYWxp O853NJRwiZkbIrUuDpQtOx L6YLS2L1NiPpf5HRBweSzi AH4rtSKcCVdsMp5dmCtgwT amVO5lXBVt yqmpCQQisE2qBYIyuVDztZ jaTB5wBFTsgglbg823FgCv UZG4VZEypDAzX0NqtQ9fUw AjMDAwMDAw Q9JfxRNwTSctM132QJagUy P7ITMtgmLzW5PpVURfxNax NmO0u2C8Uh7eQYWNBKArwm wvdGQ+PHRk MNT3zPkzSKzlBRNpoJ4qCY SqI2t5MwOjSwL7PHveX0Re FOWnzuptDs12eB9pDkNbWo P1TWsaK1Jp loB2CCLtoNQaFUguYOP9T6 1uv6U5QEWnECGsNTF5kVM6 pV1zdUcjgsxryYZkkRssff VydGljYWwt DShlJ740IWVibIciAvSmzD FsZTwvdGQ+ZCSzDTS3pYui OAqbVMGbnP3bWIXiA5a5Ze IoYyR4NIye P8YzTZVnmchyTp53eW4lUb PsWtP4VMblB7QwomX7ILVd xHEuOXmyFJL5I33mf4D0YC MwMDAwMDA7 vMD6dD2blBaarpmpdZUwoU jxkmZtgLosYEnuSGoeL519 IHRvcDsnPkFtYnVsYXRvcn nsK3WcHJXZ IWtgJ4UdD4MpuKhmpLT+PC 17pt97A1AtBktkNsa2PVZn QYL7sWV7pY0wDHUmKGkaa8 C9jLO3A1Nz wqKzly1cx4inYJXhAYrxL5 4ghJMxf1U0SQGltIJ7IJKf oUqdNuGktX98Vqi+PGNvbG ahu4YcWtfe e0gsx3ewmTb0TpTvRDQkze EplDurBEN6o9TuXd06U57m IHdpZHRoPSIzMCUiIHZhbG dadh0xrM9q Ii8+XXPooMH5oQN1mV2fTw XqCnL5FStmC962FzAepQDc Lrlml0tlb0cjrJb8VnJiOB IgdmFsaWdu FMY3c5PdYl08B1UpwJrbx2 MwFev7ee94gBCan3V5gNW8 F3VtYPDarnjfrKXvsJqfIZ 4yMDBpbjtw WZUkxD2iNIJaU1f3PzAdPl S3KQbuZ0MsagD1PMUzbTRe XMSsnBMUpE9kupwwd9odje ogIzAwMDAw CYj7FZe1TLBtuMjlVmBuEC P9PmF8TOA2mDTwaB0tzOcg nlfolJ2kNwx+EUw4t4musH GlYS9txFR8 KN71WD51eREgb1U7fQP3Y9 AxCRAalxvpctmemZJ6QSYb JGTfsS48Cr9bkPyuOi0mMY PjLRQ3NRLg tWIxM6WqwI7sXnKuDHCiFB PgC6LopMUqGPpnL485FHno ZiZ8ECPdjvGpH0VtSWFyqN gtXnL7e7M5 Qa4FJN65XR14AW16nFXmw2 V0wQG3R2VxCASnbyyrgfgc aXL3PQNrLADmrT45Ce4qkW naKn2gKBDd UXP3NRNmnGFyG5GqrJ2jOp KxHGKsJTNmN9WlxZFeHJgd X560GWlxMmR4VGAdszStW5 FsLWFsaWdu HdB1b2P1Us0WHh92NB70WP 03uMVoq6G5nMS3H2PyGYZi odlxapcfqFZ1UDQdBFNzdK 08Xt9hsWvl Jv0fSYQsEQA0CWAwvXSaR4 NtxL9gKqQdBSOiLGJfL9Pq iKGwJKquY132FKxcTlX8WZ OkzuSfE9Zt AKOyhAefDhV3e4K3Cx1YGJ ylsxj3C1DhXfspwLR+PC90 AHFrHI88wWMatNJly3ltuD v4VdQoDAAz IHN0 (more content not included)... Normal [facility] Coding Summary.on 06-24-2020 Coding Summary. [id number] Gh 0bWw+PGhlYWQ+CR2WGOXkL 70uvEAzyS1EW9qUBB6UWDH DOLISJR5MIM0tpRR2YQweE 2VybiAv RimckKGnNA31CWz4TOO8mD syIWeaqJ5rmFTnR8k5IbPi PV07bO87UOfqTMWwHqU6Jv ZpbjsgbWFy K4zdXiYwvBBmZcg+PHRhYm xlIHdpZHRoPScxMDAlJyBz oQdjNL6cFz0wXCMePRGxsR xhcHNlOiBj m1cvOKZnUMxcER7wfNfoK6 VuiIK1BUFcl8d3Jo81gHJ+ HZTaVQH3iBbsJEkxa640Re Ekt9avNAE0 pBNlJKtvYBD3U47ul2U5XF NkVDJnFCU0xFS4nY9fnIgp zeaoX8FhbWGtNnL6HBZ0pL MsvR7xzIml rsediH4aYow+K89JTD9NMU PZML3EZwq6V4ClOacptPP+ IO08LEWyAG94fXTusDBef0 vjgCe3VyNu ZOSiPOU4uKvbFMdtv2UsNZ BbV39huEGlq8N8YQSahPpt qDTlLjMjiYA2tA3oOByhle fvq6hykhkt Fpyre7gpuq46dE89W57dMO esAVLzLJK0SCZuXMFusJsr yi2blV7qLb7+EKrzr2kmr9 vwsQq5WlEl XIQbtyTcaLdkUDW2q5FcHg 92R2CcjQmwp2AgWwo4tw37 iDHpv7L9qZJ3WUdlHHIdkQ 4sBPnsItG4 SEFeCoBxjT72gSLsTUgcEc 1ohSbfwOzgIF0cDYWgymjg SIVitF1lBEDdtKQsgFfiTU 4wNTBpbjtm m054WvGoDWL2WSAebHVfI6 MpmT3fMuHnXBFlSFIpN2Jm rLMqQQjlW362FRgiOpQ9FL QdifOfS8Ud KHFqpTjrKcG6h8F3Mv1Yc1 BoiqbvPDS9MRzwUZT3YiO5 QxHaFgN7W7IdKyy2FPDqkO ymZV9uK7Cl HPYesqfcdarqxGK5BZRaSO NkqU45pIGuBNzoYz4ms1U3 t706PFWoEVGgeY27Um8yhU ogMTBwdCBU zQ5rnvihn8oizjwuHsFuJX JdQPh3DDv2QFYgmMdoEaCv EHS0OyK9AOB3xUMclM4jgS bzvudevY3w Oyc+W38vwE0xUXL4XNA6wb ucKMKonxUbOV59VU28P1Am PjwvdGFibGU+PGRpdiBzdH tjGP7fGjXo z8tae4VfKEnhG3IzPCIzQH szTff3ZBTqPGB6mNJ7zE7b TCZdWRtna8V9mIN4D1Sqnh Lnib5td3nk LEUzEReiK22fyARme9B8YJ JvyMY0MWGyuVndBpCkrI51 Oyc+MYRyqLbbb5BtXkgvy3 mbj4vvoFl4 GvGlYQApbgUfbSgkGBA6r7 EkQy58U73aMXlaYWBvEENr HAUnXWFtdHjepy3phZ7zYv 8+PGNvbCB3 eNT3wV7wMMNsPjI2EXehI7 70NcSaiIEiWwfoz6miz9gu lHp6FyKlHBBmkhPtoNvuHD E5x0FnJy28 V03tVFbqDWQdEPCsYLYsLC ZepFoxul9coE8sBe0+PC9j t3reda81hL28qOK+PHRkIH Z8nNlvZJcq VRGlkR4mQYwrPjZ8QQRsEk QpyE11iEFbPIkeIz8wmDkp nSikCE6yXQEekkvxk272Fb Ykf2xaFRIs hAYqWUwrCJD3J38dr4T3NU AzFKKnBAU2pUT5rM8fiNjs bjogbGVmdDsgdmVydGljYW nlSUggW062 IHRvcDsnPlBhdGllbnQgTm ZbEDh8T2SeVcq3OXBsxAol QX8npUYaUNxvJx0nsPkhtH fpZQ8fJVZd brmnz308IwIpc6cfIIXpcN YcZBlfZXX3A72ef6N1RVGn SLWiTBA3yXM1tN3zkQparx ogbGVmdDsg nmTacMxtXHfbUDliD090QM RvcDsnPkJpcnRoIERhdGU6 SA01JC75sJWhc5F8uVZ3U9 BhZGRpbmct cnmjyRF3EEGdIHJcpK17Vz 8jsJtkJf4nCDBtZEO6EWPa bLXpE3PrcD5nUnPhQCBqLG LaZ8KzcCZa BSzoD253JUqiHsH4EXVlcx RjM3HfVOPriLeyCbV8o7D5 Nq9FZ5G9AQ98AV08mMVmn3 Y1xJR9W9Nb AYYciajgvcakrLO0OUQcQL BosX39Fw0mvTdvCi8pLIMw PCU8PSTjiHUlZ5GatW1aUh AjMDAwMDAw T7RuiVJiDOccM319KHdpFo D3EDTjryYlS0IxSBHhpJyv BcO3w0X3Nw4DUVt0QP77GL 89iJUwj3U0 yFS7B5MgYYFttbtqhvkxvX R0UUZyDIHsaM57Gu3umKsg Du9aMMWiJWX9BMDcmZDuA0 OpyE2pAdKm OCBdELIxM8FkqPHzKVolT8 62PWuwXfP0PTDljlVmK7Bz DVSxkCxpAdC9a5Y6Ap2TUK QxNB53DQE7 rUB1KJ21HJ43S5WmXmhhyI FibGU+PHRhYmxlIHdpZHRo NUlbDXHjHyXvkMwuXD4gPr 9yZGVyLWNv zUnukHIxTjWgf3zqSDJyCC rgJV1akFfuP6TmlQS8FPKr f1u1Do23X15jC0MeoEU+PG UueJL7rSZ9 dV0iMzSmFrI5AJzuD559Tw DwqSKdCymxu7qui6bxmQd8 KfQ6NRUnkxUisMfkMTB6f3 RvNs37R29x IHdpZHRoPSIxNSUiIHZhbG ldwu9onV7cIm4+PGNvbCB3 zII7dO1iUiAdEwU3ETupT1 49InRvcCIv Qcktl7kvm6izeWq0WfBuWX SukhMpdVauOJA1d0AxZd29 G9XbhIamh6UdKrr8bv81mM Pws9F6gDQ2 T5LdUNOazvbdiZKsxFotCI 6qYLUgnyhnOXKsuW1dWDSo E5l0GcQqXqY8MLhvD7Adsi N7ZUBpkIZy VGuqQBW7A72dk4C2SBKkKM XeGJF3vNE5hB7psHnjjbil bGVmdDsgdmVydGljYWwtYW fdN346XTTl fVwwJEFtyI6hLXWqhTOiaD xwBF0nAVCdqcxnUvUBEpNQ GBdsAF7ZGpYUPNTuFmxafX Q+PHRkIHN0 aPmfLRbwXGWasD2gOEFkL1 q9YuByEfL5LEkkE2HmSJYv ekgyMa18eQ6qDpVuWsQ5KC sbR3MewvC2 OOOkbQJyPOqdAIU5Y25mp7 C3MZJaSNPdCYY2qRW6uH1n bGlnbjogbGVmdDsgdmVydG ljYWwtYWxp K654DKDmgHrpHfXdChKjId C4GIK4B0LnEuo6QRQhxStz KJ9yrUFbOCozWt1vjBejoK iwXM0rJWTx ujmoDXUxuC3rOPEqoPUjwI mzYC1wGAObgeuzc031VtCx SPC7ZPTsyNTrO7VbzJ2cPl AjMDAwMDAw R9FzwOKoGDbwI606KSxzAp E1ZJNqzpCzY9CsZOEwoUzc XrV1a8L1Cj0lXFHZKEPqfn wvdGQ+PHRk JIG8cRswHMdxZWEduE7iRM TtF8s2AuMeTrE9FKaaD2Qx EHHsdtiiQl06hJ4rWeSzKf I7CJrhM9Fh erF2TNByeYQtAVdaONR2J4 8hj2W5ASSbTBVdKHP0cQG5 pU9rhZgyphivwFEnaIuuih VydGljYWwt EKlvX475IQSmpXgcZzBlbN FsZTwvdGQ+RPYhGWH9tEvw PAtfVUDklS2pBJShT0j8Nh DdNgE1CVzb F1FlWSWthlnoNh19mY9bNl OeWwH6FAqxB4UpxaG2ERTt nQRjDWzyZGU7M08hb2U9HI MwMDAwMDA7 iFH9hC7dqHeprygxyPTcvE skyiBwzVlmTNzeGEsyJ127 KIMwfNzmHu11wLSaiHfpxn I9H4HkYfef dHI+OV53BHKyTG29bYBayG Soc5uvvCo5YvSxOBLtEXE4 yTphYFtlm3OnYMCfM74ddR Eya2N2FUMv vLkbcCEuDtWhcSF3pF4tLF pnfaefh5fbaxyuKgyoz7ik hd57wJ46G84yJZhlUDUjFX IzMCUiIHZh tFblpn0bzO0yLp4+PGNvbC O3bHW3aO8oSsEmMzT1RRkk S695NxNtuYFwIbtdb9lqw2 vitJz7EzUi ZCNeshBkzUzcSUS5d5JqKe 34D35kZCwoLKFmDNPaRZCr FXVzmUhzdf4bkL9sLa9+PC 6jp0tvhe74 jD65bIE+ZUBvFHO4yBkuER zsHUTmrB4zGDvbNvV9TKGy YsDgkF75aBZuLRftYs3taR segCfcNH7c HOTamasss492GeMgn1gxSA DpqETvOWoqJUZ9K79ct7V3 FBMtEWLaJVL4yTL0oX4dyW lnbjogbGVm dDsgdmVydGljYWwtYWxpZ2 74SEKujFwyJsAluVOeW1nj vsYNRQ4rKfvpzOF+PHRkIH C5iEozOJuz BWVqgZ8lIXBcT5d5WjDpGr M7PIphP7PksjT2OZIvbRIr BBRtnFYLgF6yjslgu3irmm ogIzAwMDAw ARo8PQk8NMHrrQdeHiOgBC Y8RdI9PJM6xAEycA8yfRip olvzzL4sWaf+RklOOjwvdG Q+PHRkIHN0 zWuaUKhfRTHxnB1sWBFkB6 j1PsRsJhJ1YRhiO8RwgdL2 VPObaUFjUPKhbKVEcE5xax zmy3mfnqqo VfZqAOUuXLb8UHz2SCWlrB qbXaHyAYK7KaB5FRL7aNXr fM3irBbxcuhpjE1gBps+TV JOOjwvdGQ+ OVDtUDK8tYqeDOniYOZzdM 5oXSCkT2v4BoEnLdA5EAkw Q4WiiiX6MFYznUJuXQBwvJ XNkW0kyyyk j1iwpmnnYvWyHFHgCDe8LK a3MYHdrCibPlNmKNP6QuI4 GXA8xBGyzL5nuZtadgqfeR 9wOyc+UGF5 ZQZ4HL41EO48M8IxXzvjwK FibGU+PHRhYmxlIHdpZHRo KMmlKUTyGgRgvJlqXX6vDw 9yZGVyLWNv bGxh (more content not included)... Normal [facility] IntraOperative Documentson 0 06-22-2020 IntraOperative Documents [id number] Normal [facility] Main OR Intraoperative Recor don 06-20-2020 Main OR Intraoperative Record IntraOp Document Type FT Summary Primary Physician: Jordan Bhakta DO Finalized Date/Time: 06/20/20 12:56:01 Pt. Name: ANTOINETTE RECIO Azalea Guaman/Sex: 1995 Female Med Rec #: [id number] Physician: Jordan Bhakta DO Financial #: [id number] Pt. Type: A Room/Bed: [place] [address] Admit/Disch: 06/14/20 15:28:52 - 06/14/20 21:05:00 Institution: [...] JR, DO, DO, Jason A Stocker RN, BARBARAOR, Nona Role Performed Anesthesiologist of Surgeon - Primary DESK TOP PUBLISHER Record Time In 06/14/20 17:11:00 06/14/20 17:11:00 06/14/20 17:11:00 Time Out 06/14/20 19:10:00 06/14/20 19:10:00 06/14/20 19:10:00 Procedure CLAVICULAR FRACTURE CLAVICULAR FRACTURE CLAVICULAR FRACTURE ORIF(Left) ORIF(Left) ORIF(Left) Comments [facility] STUDENT - SCRUBBED IN Last Modified By: Shreya RN, Alycia Cash RN, Alycia Yin RN 06/14/20 19:14:30 06/14/20 19:14:30 06/14/20 19:14:30 Entry 4 Entry 5 Entry 6 Case Attendee Julian SARGENT, Jhonny Cash RN, Isabella Johnson Role Performed Scrub - Primary Humanities Instructor - Primary Coil Former Time In 06/14/20 17:11:00 06/14/20 17:11:00 06/14/20 [...] X-ray Applicable) PreOp Antibiotic Yes Time Out Liben JR DO, Bernardo Treviño DO, Jason A, Stocker RN, BARBARAORNona Barker SOFTWARE TOOLS BUILD ENGINEER, Shreya Rush RN, Kimberly Y Time Out [...] FRACTURE Outcomes Met? Yes Last Modified By: Aylcia Cash RN 06/14/20 18:05:09 Post-Care Text: The patient is free from signs and symptoms of infection Skin Assessment (Pre Procedure) FT Pre-Care Text: Implements protective measures to prevent skin/ tissue injury due to thermal or mechanical sources Evaluates for signs and sympto (more content not included)... Normal [facility] Operative Reporton Operative Report Date of Surgery: [...] Godfrey Graves Jr., D.O. gls Dictated: 06/14/2020 #[id number] Typed: 06/15/2020 #[id number] cc: Godfrey Graves Jr., D.O. [facility] Comment on above: Result Comment: Elec tronically Signed By: Godfrey Graves JR, DO\.br\Date and Time Signed: 06/18/20 09:48 EDT Postoperative Documentson Postoperative Documents [id number]#1. 00CD:127 [facility] Progress Note-Physicianon Progress Note-Physician Patient: ANTOINETTE [...] constipation, # 20 cap(s), Refills(s) 0, Pharmacy: [facility], 165.1, cm, 06/14/20 15:51:00 EDT, Height/Length [...] food, # 60 tab(s), Refills(s) 0, Pharmacy: [facility], 165.1, cm, 06/14/20 15:51:00 EDT, Height/Length Dosing, 74.6, kg, 06/14/20 15:51:00 EDT, Weight Dosing Problem list: All Problems Clavicle fracture / SNOMED CT 52843839 / Confirmed left Physical Examination Intake and Output Denies significant n/v and is tolerating p.o. No qualifying data available Respiratory: Adequate air exchange with jewish of preoperative function.. Cardiovascular: Cardiovascular function is stable and has returned to preoperative levels.. Neurologic: Pt has returned to preoperative baseline.. Review / Management Condition: Stable. Assessment Anesthetic outcome No anesthetic complications noted. Plan Transfer/ Discharge: Patient can be discharged from PACU when criteria met. Condition good. Normal [facility] Comment on above: Result Comment: Elec tronically Signed By: Godfrey Graves JR, DO.candice\Date and Time Signed: 05/10/21 16:23 EDT Progress Note-Physician Patient: ANTOINETTE RECIO [...] data available Respiratory: Adequate air exchange with jewish of preoperative function.. Cardiovascular: Cardiovascular function is stable and has returned to preoperative levels.. Neurologic: Pt has returned to preoperative baseline.. Review / Management Condition: Stable. Assessment Anesthetic outcome No anesthetic complications noted. Plan Transfer/ Discharge: Patient can be discharged from PACU when criteria met. Condition good. Normal [facility] Comment on above: Result Comment: Elec tronically Signed By: Godfrey Graves JR, DO XR Clavicle Lefton XR Clavicle Left Exam Date/Time: 06/14/2020 20:16 EDT Reason for Exam: Fracture Report IMPRESSION: STATUS POST ORIF FRACTURE LEFT CLAVICLE. CLINICAL HISTORY: Fracture. COMMENT: 2 limited vfyyc-xc-zsgp C-arm images were obtained in the OR. [...] Dose: Ka,r in mGy = 3.7 Normal [facility] Consent for Anesthesiaon Consent for Anesthesia [id number]#1. 00CD:127 Normal [facility] Discharge Instructionson Discharge Instructions [id number]#1. 00CD:127 Normal [facility] IntraOperative Documentson 0 06-15-2020 IntraOperative Documents [id number]#1. 00CD:127 Normal [facility] IntraOperative Documents [id number]#1. 00CD:127 Normal [facility] Preoperative Documentson Preoperative Documents [id number]#1. 00CD:127 Normal [facility] COVID-19 ([facility]on 06-14-2020 SARS-CoV-2 (COVID-19) RNA AIDEE+probe Ql (Unsp spec) Not detected Normal Not Detected [facility] Comment on above: Result Comment: This test result should be correlated with clinical presentations and medical history by a healthcare provider to determine its clinical significance. This assay was performed by a reverse transcriptase real-time polymerase chain reaction (rt PCR) method on the [employer] system. This test has been authorized only [...] or revoked sooner. Performed By: #### 2 [id number] ####[address] [address] SARS-CoV-2 (COVID-19) RNA AIDEE+probe Ql (Unsp spec) Pass Normal Pass [facility] Comment on above: Performed By: #### 2 [id number] ####[address] [address] Specimen source Nom (Unsp spec) Nasal Normal [facility] Comment on above: Performed By: #### 2 [id number] ####[address] [address] Coding Summary.on 06-14-2020 Coding Summary. CD:[id number]:[id number] Gh 0bWw+PGhlYWQ+QH9YFWPdF 08dmKYudI1GK6rMTW8YAHS FEAMAFU7CPC8xsWU2IQvqR 2VybiAv BamprWAkTY18UTm5KEN5nZ erMCkvwV6gpISgM1b7BpKv KC89uC84QQcjNPGgSdC1Vl ZpbjsgbWFy C6owCySbwNZzJpx+PHRhYm xlIHdpZHRoPScxMDAlJyBz eSzlJR1tTh6vGIGiCCYbmO xhcHNlOiBj d3dlXZGwDNdgHP5brWohZ9 AgeRL8PFRbm9j7Zm51vHY+ TPJuGPB9hHqhVJjoe128Nj Xnf8zgBFN4 iSTsHKigXNZ9I38kh2P4DK SwZIJuDUA2dNV4vK6gqNbg eiqjM7OjwCTfXnY6XAP8mT JeeJ4ljDod dflctW5lAxj+L10TRP9LCO YXHP9OOgt8X4MqAvtqlRM+ EZ66JKExKM81kKYihUWsf6 eutIa7VnZf TPUnJTE6cOngEDopd7XcCF YbN66tnRUrj2X5ITRckQde mEJzNhNysZN3hG5lGMrilv hlo6fuywwm Riuvb9yasy64jG03H59aTL qmXPIsRJE0XYIlJNRimZfq ax6fzB1wUj6+JAkip9qkj3 cjkGj0ZnSn QGIxesAdhWerIDN1f2WwTt 14E2DydIgjb3JfIag5ul87 xSUqt8K7eWG2NWwePDCnmO 1eVHnbAgC3 AIKuExJhtP51mDFkZLlgMv 9ntLjenXdmOI5eXDTpbfci OKVcuR2wWYXokTZhjYvnIT 4wNTBpbjtm n118HgCpDIL2LXMhmAJxY7 DopC3lTrMcUHCbHLPxI4Vu zBMjDYzsM885BQqhBwI8JG SkcdFdS5Ya ZWBymEetYlX4f5M3Qw7Dm5 MpdkclZUU2NOyeAFO4FgB8 UrTbYvH8B6IsHwh3ADSkjF qyWU1oZ1Nw SJFcarsclcxszUS6UFWmMT LgfV43bCNrGHdtFh7aw2U2 w515KENgNNQhzN84Xr1eaH ogMTBwdCBU kX8bdaefg7yicietKaNvPS ArAKa7FUm1WPOsjDacXeYw ENM3EpV8BNK6oAErsE1ejR ghlinmlO9o Oyc+D20cyI4ySSD6LOU8xe xaXCGdtcKyVN71UG31C6Nq PjwvdGFibGU+PGRpdiBzdH ogMS1bQbWa k2xqp4RtKTucF3RfDYWqOZ wuHxe2OAXlVKX4eNR4cN9r IPRbCSamg3A6pSP9V5Wwou Fcei7fb7dg OOOjVDbcX31fnJJwt8Q8KN XvqCV0JWApwGmnGvEgiC70 Oyc+MEDulKhfa4KmGnguz2 koq6bifQf5 BqMlUQUobuJeiPlbKDV0r6 CaYd19P06mHYrrSQOzYSUo XNZxWBOhnVxhpt5bwS6yDj 8+PGNvbCB3 qYT1yL3cKMAmWoM7BRrpG3 13ZuHjkPSbDtdkj1mzl8du gAt3WfHpOEOiavPewJbnSF P2z8BuGs33 K62dOCckVTIoJZUlPQAfRB OxdAxjpz5oqN7kAs8+PC9j c4fdul86eC04qJY+PHRkIH S3jEfrJLgi JYJbgJ1nBIdvShN1ILRkTc DhzN10qYJiWNbxMu7knZxp qOpzQG0nXEIiatixl707Jk Sva6pjPQPk cHAsGTieUBL6D06us3J2GH LdCJVrAZG5wIC8zF7niGbq bjogbGVmdDsgdmVydGljYW jpVVrwA666 IHRvcDsnPlBhdGllbnQgTm CjHAm8Q4CkTvc9WDJynJkr KE8umIIvVKasUy1grKngyF koSV5xRZPc pogoz596QcZgu3whVTUxzI AkVXjiAAE2A11zf3D6PNCi FNLkVSI3fBA8iV2xhSvpgf ogbGVmdDsg bsTojHhmLZrkCIzwH644JX RvcDsnPkJpcnRoIERhdGU6 FH33HF90fEFvl6N0hPT6U7 BhZGRpbmct attrlNE2BSJxOZYjjO85Ms 6bkEzkKc6jCBBrZLB8LRIr hLNxT2WwoB4vEcDzYZJhKU GfW6NnoZNj AHfrF871UJjlHwN3KZNztl UuX0RpOLTecRndVtY1l1W4 Yq3CV5P5EU57AK77hFQzs8 K5gMB2U9Uv TGAcqmlvmacguSS7FYUeEO YgqS62Mt4qzXmkPy8iXKBn URS1SAAeyJTdC9FlvQ5bCs AjMDAwMDAw M0QhrWXzEIgaA192PTslNx Q9FZDrhjAjD4TlPNFcyQcu WwK8f1U7Xs2ROWd4QX52SC 96hGGqk9L5 nGX7L6KoUFYwfrenxmmxcE G4JDHdUEKdbC36Hx3ytWmf Yn1jWTAlTLT4CPSctHEdL4 CrlH0hBbJm DJRyEYEnP9SfhQNxUUxeO9 58RVziRwS0XBOzffKpZ6Dc QKWvgIrzEkL6y1E9Jn9JMC IgAF26IFZ5 hJB9CD76PW55V7YlVbaymN FibGU+PHRhYmxlIHdpZHRo QUbcUSWdUyYsiRqcUK2vHd 9yZGVyLWNv oApfhJUhPwIqj8yzKLSmDD kpCB3wmCmzF8HamMG4KRMd w4e2Ew64I21rT9FwpEI+PG BetFA0vEN1 pG9aSmXzBhS9SGtsE643Ko YsxTQfYosis8lci6gkaMb0 LfJ4BFSgkuPusVbmEMT3i5 LlXf06D50f IHdpZHRoPSIxNSUiIHZhbG palr4woK9eNx0+PGNvbCB3 gUI4eQ2oEeXzVzU9HIysK9 49InRvcCIv Wjmch8dqs8lbnUp4EuUoVB OzztAjlQemGXK2r0DkJs03 R1QerVwyq6UgVox6ad62jB Xxv9B2tGO9 U4WsNATkzswuxZEgsXpyHY 9oJUXsuwlbSWEvfM2lVOXm V0d7KcLmXdL9QOmvP1Fqir C0BLFasAPt ERriTPR7M30tp9U4FBSkSO CvMPX6dVT7zU7thYrzihvl bGVmdDsgdmVydGljYWwtYW brC439QQIa rVrcBJLajW4gOGEloHFyiW rbOH0yPPChtxgaWcBWVdJQ FQtwIJ3DQsRZOKXgPpwunS Q+PHRkIHN0 fDbbXYsyVYEneL8fDJVoC0 s9FhLpFyD6KIgtT5JdMNRg ssiuHg60cJ3sNsJuEzT1NL sxT5IwcnX2 CUKaaUHqPYrbJHF7K06ry2 V7YIUiDAEwVGV9dNJ1qG1g bGlnbjogbGVmdDsgdmVydG ljYWwtYWxp J790CXPczDzgZvKnPsPkYi Y0HBC3K3UkRvz6YFTndAuk LE8koJWvCBmoNx4sxEpudM fuJW3bUFYb rsvgIQLuiC8sSNYnpTYuhV vdYJ0dMIBymzqwj445ZjFu UOI3EDMriEJtV9SeyV5oAi AjMDAwMDAw S1PcwEHqNCbhM992ZNraAa G5FJSnbfMcO2MdUQPhbKoy WvJ1m9J4Uz0mESJFSANcmh wvdGQ+PHRk VQZ4wBzaQQjxWVGidK0gLK ZyQ9p5CxGzUgY5NWgaZ7Py ELFwhkhmWq60zL1oVaUwWb D8HUyaA7Jn frU7DANsnIFdYGwaYUZ5R3 4ki8K5NZRcULMeEXE3wMX1 yN1ceCcwvxlsfEJnfOijcf VydGljYWwt PXkxY665VHNueNyxKjExxA FsZTwvdGQ+IGQeRFL1eVdf GJoiYRRvcN7zFGRrF2o8Eo IaHbK5WGcy F2IzINBwwqwaWn44pX9nKt QzPmC0XIfiP6BikjR3YIAc lYYqRXkpVOR3S43ln0G0IR MwMDAwMDA7 rRB1zE5mzTmlrpmfbIThvI hmsdXxgOitEGfoTTmuT372 XTAotOuwLhDtABHsZL0yzR wvdGQ+PC90 jg36L3MpThjeExw2NRHyMN O0cWG7vZ2xXPBfBVggs4I7 pDD5J7AhuqQnjl0mv8txHK FrUUuiA61b lBSow3I6PPCaxDT7ONLydK tkWpQzmV42Tts+PGNvbGdy q7KgQaoty8mzq1eivKo0Vx MwJSIgdmFs lWzmSQP8i7KrEn97G44rSI dpZHRoPSIzMCUiIHZhbGln in4emX3kKl3+YEAloOJ8gJ D8pS3lUvSo SaA5LZgcB441BbWdkXPgGk hdu2buj0krbTi0XnYgUIEp ytTabEtvLZH7n4BiPa42V6 JlxJswx8Ju Kqe9vy76zUDoi5J8nDP8M4 DgSUXchbdthEFfbTddXA5q BZZidtyjDFIuuY5nIODlH5 y3DeReZxV5 INpqT7MmyvY5XRNfeIUhJS ZaxYQZmL0brucrf5diapzp XjDeMFVaVHs1ILp6CNTgmW duOiBsZWZ0 MpW1FDW0qTBcrB5uxXxsqt nlsS2pJtq+PCs1n9tovBSv OH3brIT9MT78HV22yBIil5 G2yBU5P5Cp SPNfjhptxsvzxLN3VSVaZX IyrB15Lw7usBkpQy7mVCWg EZP2CWYpmISqM2AmdT5cPy AjMDAwMDAw R6DykEQzHGvlT128GZtkRa J2PPSxeeNkX9DfEPMyxNcs NaM5j3W3Pu1DIP02QC81GK 44lLScz5O3 tUP4U5JmYBQodmvuqhdpcT A4YPCqYJMkzQ02Mi2zjGjx Zz9hGTUpLPF3VGLkyRPfF9 RbrD2wPnPw MYDnWHVtW7OteTGqKHcxL2 38CHakJcO3HMHzrtZvX9Lv YAGtjXamHoI0c1W2Ka4WNf 88MC50YU33 bJUpa1Y7vFZ4V0KjFHGbjz mhlrzdoYV5BLAhRJShcX70 Hy0qiWtuZr5dHUTnRNX2KZ ZmgWEfB3Ht uD2pYnQzLFRoFNSnN7LxfS VaSUkaM363XIjbCtA9DXHk suCsS1ShPXSmeIqoJwN7b8 F2Kn3UADxw hyf2T8IjZfnswUD+PC90YW ErVN54jHFsiYEct2jzlOo9 RiEdKNFdYSL4xRhwOQbjy8 FuKGHrB21j bGFw (more content not included)... Normal [facility] Consent for Procedure/Surger yon 06-14-2020 Consent for Procedure/Surgery [id number]#1.0 0CD:127 Normal [facility] Consent for Treatmenton Consent for Treatment [id number]#1.00C D:127 Normal [facility] Inpatient Patient Summaryon 06-14-2020 Inpatient Patient Summary [address] [address] [facility] Clinical Discharge Instructions PERSON INFORMATION Name: ANTOINETTE RECIO [facility]#:[id number] PHYSICIANS Admitting Physician: Jordan Bhakta DO Attending Physician: Jordan Bhakta DO PCP: NONE, XXXX Discharge Diagnosis: Comment: PATIENT EDUCATION INFORMATION Instructions: Shoulder Cryocuff Patient Instructions - FT (CUSTOM); Post Op Patient Instructions - FT (Custom) (CUSTOM); Silvana Bhakta - Shoulder Replacement (Custom) Medication Leaflets: Follow up: With: Address: When: Jordan Bhakta [address] [place] [address] [facility] (1) 06/21/2020 8:45 AM Comments: Call for any problems. Keep scheduled appointment MEDICATION LIST New Medications [facility], [address], [place] [id number], [phone] acetaminophen-oxycodon e (Percocet 325 mg-5 mg Tab) 1-2 tab(s) Oral q4hr; as needed as needed for pain. Refills: 0. docusate (Colace 100 mg Cap) 1 Capsules By Mouth 2 times a day as needed for constipation. Refills: 0. Medications to Continue Taking That Have Changed [facility], [address], [place] [id number], [phone] START: naproxen (naproxen 500 mg Tab) 1 Tablets By Mouth 2 times a day. with food. Refills: 0. Other Medications START: naproxen (naproxen 500 mg Tab) 1 Tablets By Mouth 2 times a day. Take one tab by mouth two times a day. Refills: 0. Comment: Normal [facility] Main OR PACU I [facility] Main OR PACU I Record PACU Phase I Docum ent Type FT Summary Primary Physician: Jordan Bhakta DO Finalized Date/Time: 06/14/20 19:45:42 Pt. Name: ANTOINETTE RECIO /Sex: 1995 Female Med Rec #: [id number] Physician: Jordan Bhakta DO Financial #: [id number] Pt. Type: A Room/Bed: [place] [address] Admit/Disch: 06/14/20 15:28:52 - Institution: Case Times [...] By: Yvette Santa RN 06/14/20 19:45 Normal [facility] Main OR PACU II [facility] Main OR PACU II Record PACU Phase II Doc ument Type FT Summary Primary Physician: Jordan Bhakta DO Finalized Date/Time: 06/14/20 21:13:50 Pt. Name: ANTOINETTE RECIO Azalea ArringtonB./Sex: 1995 Female Med Rec #: [id number] Physician: Jordan Bhakta DO Financial #: [id number] Pt. Type: A Room/Bed: [place] [address] Admit/Disch: 06/14/20 15:28:52 - 06/14/20 21:05:00 Institution: [...] By: Soraya Dixon RN 06/14/20 21:13 Normal [facility] Main OR Preoperative Recordo n 06-14-2020 Main OR Preoperative Record PreOp Document Type FT Summary Primary Physician: Jordan Bhakta DO Finalized Date/Time: 06/14/20 18:03:47 Pt. Name: ANTOINETTE RECIO D.O.B./Sex: 1995 Female Med Rec #: [id number] Physician: Jordan Bhakta DO Financial #: [id number] Pt. Type: A Room/Bed: [place] [address] Admit/Disch: 06/14/20 15:28:52 - Institution: Case Times [...] By: Alycia Cash RN 06/14/20 18:03 Normal [facility] Monitor [facility] 06-14-2020 Monitor Record [id number]#1. 00CD:127 Normal [facility] Operative Reporton Operative Report Patient: [...] Anesthesia type: General, Regional. anesthesiologist: abhinav Williamson [facility] Comment on above: Result Comment: Elec tronically Signed By: Jordan Bhakta DO\.br\Date and Time Signed: 06/14/20 19:03 EDT Outpatient Surgery Discharge Instructionon 06-14-2020 Outpatient Surgery Discharge Instruction [place] [address] Patient Discharge Instructions PERSON INFORMATION Name: ANTOINETTE [...] Date Follow up: With: Address: When: [place] [address] [facility] (1) 06/21/2020 8:45 AM Comments: Call for any problems. Keep scheduled appointment Pharmacy Information: [facility] You may receive a survey from Molly Salmon asking you to rate your care experience. Your feedback is important and will help us understand what we do well and how we can improve the quality of care we provide to you, your loved ones and our community. It?s an honor to serve you. Thank you for choosing [facility] HERE ARE THE MEDICATION CHANGES THAT OCCURRED DURING YOUR HOSPITAL STAY New Medications [facility], [address], [place] [id number], [phone] acetaminophen-oxycodon e (Percocet 325 mg-5 mg Tab) 1-2 tab(s) Oral q4hr; as needed as needed for pain. Refills: 0. docusate (Colace 100 mg Cap) 1 Capsules By Mouth 2 times a day as needed for constipation. Refills: 0. Medications to Continue Taking That Have Changed [facility], [address] [facility], [place] [id number], [phone] START: naproxen (naproxen 500 mg Tab) 1 Tablets By Mouth 2 times a day. with food. Refills: 0. Other Medications START: naproxen (naproxen 500 mg Tab) 1 Tablets By Mouth 2 times a day. Take one tab by mouth two times a day. Refills: 0. PATIENT EDUCATION INFORMATION Instructions: [place], [place] [facility] DISCHARGE INSTRUCTIONS: SHOULDER SURGERY [...] persistent vomiting. Jordan Bhakta, DO [facility] [address] [place] [address] Reviewed: Normal [facility] Patient Education - Texton 0 06-14-2020 Patient Education - Text [place], [place] [facility] DISCHARGE INSTRUCTIONS: SHOULDER SURGERY [...] persistent vomiting. Jordan Bhakta, DO [facility] [address] [place] [address] Reviewed: Normal [facility] BMPon 06-13-2020 Anion gap [Moles/Vol] 12 mmol/L Normal -16 [facility] Comment on above: Performed By: #### 2 544200, [id number], [id number] ####[facility] [address] [place] [address] Calcium [Mass/Vol] 9.1 mg/dL Normal 8.9-11.1 [facility] Comment on above: Performed By: #### 2 963104, [id number], 6909462 ####[facility] [address] [place] [address] Chloride [Moles/Vol] 105 mmol/L Normal 101-111 [facility] Comment on above: Performed By: #### 2 320834, [id number], 9403963 ####[facility] [address] [place] [address] CO2 [Moles/Vol] 29 mmol/L Normal 21-31 [facility] Comment on above: Performed By: #### 2 808984, [id number], 8295435 ####[facility] [address] [place] [address] Creatinine [Mass/Vol] 0.7 mg/dL Normal 0.5-1.3 [facility] Comment on above: Performed By: #### 2 240458, [id number], 9093906 ####[facility] [address] [place] [address] Glucose [Mass/Vol] 82 mg/dL Normal 55-199 [facility] Comment on above: Result Comment: If t his glucose result represents a fasting glucose, interpretation should refer to the following reference range: 55-99 mg/dL Performed By: #### 2 406494, [id number], 0352823 ####[facility] [address] [place] [address] Potassium [Moles/Vol] 3.9 mmol/L Normal 3.5-5.3 [facility] Comment on above: Performed By: #### 2 277438, 12090488, 8010776 ####[facility] [address] [place] [address] Sodium [Moles/Vol] 142 mmol/L Normal 135-145 [facility] Comment on above: Performed By: #### 2 689652, [id number], 9629967 ####[facility] [address] [place] [address] Urea nitrogen [Mass/Vol] 14 mg/dL Normal 5-21 [facility] Comment on above: Performed By: #### 2 162021, [id number], 9972612 ####[facility] [address] [place] [address] Urea nitrogen/Creatinine [Mass ratio] 20 No Units Normal 10-20 [facility] Comment on above: Performed By: #### 2 483030, 48163653, 5998472 ####[facility] [address] [place] [address] CBC w/Indiceson 06-13-2020 Erythrocyte distribution width (RBC) [Ratio] 14.3 % High 10.9-14.2 [facility] Comment on above: Performed By: #### 2 988685, 75582172, 5198322 ####[facility] [address] [place] [address] Hematocrit (Bld) [Volume fraction] 36.4 % Normal 34.0-46.0 [facility] Comment on above: Performed By: #### 2 053774, 30829575, 1806366 ####[address] [address] Hemoglobin (Bld) [Mass/Vol] 11.9 g/dL Low 12.0-16.0 [facility] Comment on above: Performed By: #### 2 902405, 62486825, 5251258 ####[facility] [address] [place] [address] MCH (RBC) [Entitic mass] 27.5 pg Normal 27.0-34.0 [facility] Comment on above: Performed By: #### 2 060272, [id number], 0196578 ####[facility] [address] [place] [address] MCHC (RBC) [Mass/Vol] 32.6 g/dL Normal 31.4-36.0 [facility] Comment on above: Performed By: #### 2 009408, 75982599, 3711672 ####[facility] [address] [place] [address] MCV (RBC) [Entitic vol] 84.4 fL Normal 80.0-100.0 [facility] Comment on above: Performed By: #### 2 657302, 55759301, 8964159 ####[address] [address] Platelet mean volume (Bld) [Entitic vol] 7.5 fL Normal 6.4-10.8 [facility] Comment on above: Performed By: #### 2 833378, 71460013, 5160055 ####[address] [address] Platelets (Bld) [#/Vol] 319.0 E9/L Normal 150.0-500.0 [facility] Comment on above: Performed By: #### 2 197139, 55323922, 6334004 ####[address] [address] RBC (Bld) [#/Vol] 4.3 E12/L Normal 4.3-5.9 [facility] Comment on above: Performed By: #### 2 768145, 02705700, 1505031 ####[address] [address] WBC corrected for nucl RBC Auto (Bld) [#/Vol] 6.8 E9/L Normal 4.0-11.0 [facility] Comment on above: Performed By: #### 2 138859, 14824822, 4367487 ####[address] [address] Consent for Treatmenton Consent for Treatment [id number] 0CD:127 Normal [facility] Physician Orderon 06-13-2020 Physician Order [id number]#1. 00CD:127 Normal [facility] Physician Order [id number]#1. 00CD:127 Normal [facility] Progress Note-Physicianon Progress Note-Physician Patient: [...] selected or recorded. Procedure history: Gastric sleeve ([id number]) in 2019 at 22 Years. Tonsillectomy ([id number]). Social History Social & Psychosocial Habits Alcohol [...] review: No qualifying data available . Plan [place] [employer] (ASA) physical status classification: Class I. Anesthetic Preoperative Plan Anesthesia: General. , Regional Interscalene Block. Anesthetic plan, risks, benefits, and alternatives discussed with the patient and/or family. Pt. and/or family present and agree to proceed as planned.. Discussed the importance of abstaining from tobacco products, and offered counseling if desired. Normal [facility] Comment on above: Result Comment: Elec tronically Signed By: Godfrey Graves JR, DO.candice\Date and Time Signed: 06/13/20 15:05 EDT U BetaHcg [place] 06-13-2020 HCG.beta subunit (U) [Moles/Vol] Negative Normal [facility] Comment on above: Performed By: #### 2 [id number] #### [facility] Laboratory [address] [place] [address] eGFRon 06-13-2020 GFR/1.73 sq M.predicted among blacks MDRD (S/P/Bld) [Vol rate/Area] mL/min/{1.73_m2} Normal >=59 [facility] Comment on above: Order Comment: Order added by Discern Expert. Result Comment: eGFR is race adjusted. AA=. Performed By: #### 2 [id number], [id number] ####[facility] [address] [place] [address] GFR/1.73 sq M.predicted among non-blacks MDRD (S/P/Bld) [Vol rate/Area] mL/min/{1.73_m2} Normal >=59 [facility] Comment on above: Order Comment: Order added by Discern Expert. Result Comment: Paste Up Artist Apprentice mile kidney disease could be indicated at eGFR's of less than 60 mL/min/1.73m2. Kidney failure is indicated at less than 15 mL/min/1.73m2. 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 NO Normal [facility] Comment on above: Performed By: #### 2 [id number] ####[facility] [address] [place] [id number] ICU NO Normal [facility] Comment on above: Performed By: #### 2 [id number] ####[facility] [address] [place] [address] ? Unknown [facility] Comment on above: Performed By: #### 2 [id number] ####[facility] [address] [place] [address] Resides in a Congregate Care Setting NO Normal [facility] Comment on above: Performed By: #### 2 [id number] ####[facility] [address] [place] [address] Symptomatic as defined by [facility] [place] Unknown [facility] Comment on above: Performed By: #### 2 [id number] ####[facility] [address] [place] [address] Physician Orderon 06-12-2020 Physician Order [id number] 0CD:127 [facility] Consent for Treatmenton Consent for Treatment [id number] 0CD:127 [facility] Discharge Instructionson Discharge Instructions [id number]:127 [facility] ED Clinical Summaryon 2020 ED Clinical Summary [place] [id number] ED Clinical Summary Person Information Name: ANTOINETTE RECIO [place] Age: 25 Years : 1995 Sex: Female Language: Niuean PCP: Isaiah BHAKTA MD Marital Status: Visit [...] 06/11/2020 12:47:55 06/11/2020 12:47:55 06/11/2020 12:47:55 ADDRESS: [address] [facility] [phone] PHYS DOC NOTES: MEDICAL INFORMATION: Prescriptions Given: [...] up: With: Address: When: Jordan Bhakta [address] [place] [address] Business (1) 06/12/2020 3:15 PM With: Address: When: Isaiah BHAKTA [address] [place], [place] [id number] Business (1) In 3 days DIAGNOSIS: Fracture of left clavicle Normal [facility] ED Note-Physicianon 06-12-19 21 ED Note-Physician Basic Information Time Seen: Sara Burdick DO 06/11/2020 12:18 Chief Complaint Pt reports broken collar bone and stitches above eye. Went to [facility] sat and sent to [place]. Pt reports still in pain and was [...] left clavicle. She was taken from the [facility] transferred to a hospital in [place] where she was discharged 20 minutes later [...] see the patient tomorrow at [address] in [place] and she is treated with anti-inflammatories and [...] Jordan Bhakta 06/12/2020 03:15 PM EDT [address] [place] [address]- Business (1) Additional Instructions: Isaiah BHAKTA In 3 days [address] [place] [address]- Business (1) Additional Instructions: Problem List/Past Medical [...] in spine. Signed By: Nathaniel SIMEON, Marisa [facility] Comment on above: Result Comment: Elec tronically Signed By: Sara Burdick DO\.br\Date and Time Signed: 06/11/20 12:39 EDT ED Patient Education Noteon 06-11-2020 ED Patient Education Note Normal [facility] ED Patient Summaryon 021 ED Patient Summary [address] [address] Patient Discharge Instructions Person Information Name: ANTOINETTE RECIO Age: 25 Years Arrival Date: 06/11/2020 10:49:37 Discharge Diagnosis: Fracture of left clavicle Primary Care Physician: Isaiah BHAKTA MD Provider Information Primary Provider: Sara Burdick DO Advanced News Production Assistant:None The exam and treatment you received in the Emergency Department were for an urgent problem and are not intended as complete care. It is important that you follow up with a doctor, nurse practitioner, or physician?s sourcing assistant for ongoing care. If your symptoms [...] Instructions: With: Address: When: Jordan Bhakta [address] [place] [address] Business (1) 06/12/2020 3:15 PM With: Address: When: Isaiah BHAKTA [address] [place] [address] Business (1) In 3 days In the event that this physician does not participate in your insurance network, please consult with your insurance company to find a nearby participating provider. Patient Education Materials: A MESSAGE TO ALL PATIENTS REGARDING OPIOIDS PRESCRIPTION OPIOIDS: WHAT YOU NEED TO KNOW Prescription opioids can be used to help relieve jicikrhf-ev-hlcsuf pain and are often prescribed following a [...] care pro (more content not included)... Normal [facility] XR Chest 2 Viewson XR Chest 2 [...] FINAL REPORT Dictated: 06/11/2020 12:17 pm Marisa Amrstrong MD Signed (Electronic Signature): 06/11/2020 12:17 pm Signed by: Mairsa Armstrong MD Transcribed by: MICHAEL Technologist: ABDULLAHI Wliliamson [facility] CBC AUTO DIFFon 06-10-2020 BASO # 0.1 103/ul Normal 0.0-0.1 [facility] Comment on above: Performed By: #### C BC #### [facility] [address] [place] [address] Kinjal Sherine Basophils/100 WBC (Bld) 0.5 % Normal 0.2-2.0 [facility] Comment on above: Performed By: #### C BC #### [facility] [address] [place] [address] Kinjal Sherine EO # 0.2 103/ul Normal 0.0-0.7 [facility] Comment on above: Performed By: #### C BC #### [facility] [address] [place] [address] Kinjal Sherine Eosinophils/100 WBC (Bld) 1.8 % Normal 0.9-7.0 [facility] Comment on above: Performed By: #### C BC #### [facility] [address] [place], [place] [address] Kinjal Sherine Erythrocyte distribution width (RBC) [Ratio] 13.7 % Normal 11.0-15.0 [facility] Comment on above: Performed By: #### C BC #### [facility] [address] [place], [place] [address] Kinjal Sherine Hematocrit (Bld) [Volume fraction] 38.2 % Normal 36.0-48.0 [facility] Comment on above: Performed By: #### C BC #### [facility] [address] [place], [place] [address] Kinjal Sherine Hemoglobin (Bld) [Mass/Vol] 11.9 g/dL Critically low 12.0-16.0 [facility] Comment on above: Performed By: #### C BC #### [facility] [address] [place] [address]18[address] Kinjal Sherine IG # 0.03 10e3/ul Normal 0.00-0.03 [facility] Comment on above: Performed By: #### C BC #### [facility] [address] [place] [address] Kinjal Sherine IG % 0.3 % Normal 0.0-0.5 [facility] Comment on above: Performed By: #### C BC #### [facility] [address] [place] [address] Kinjal Sherine LYMPH # 1.8 103/ul Normal 1.2-3.8 [facility] Comment on above: Performed By: #### C BC #### [facility] [address] [place] [address] Kinjal Sherine Lymphocytes/100 WBC (Bld) 17.4 % Critically low 20.5-60.0 [facility] Comment on above: Performed By: #### C BC #### [facility] [address] [place], [place] [address] Kinjalroverto Basurto MANUAL DIFF REQ NO Normal [facility] Comment on above: Performed By: #### C BC #### [facility] [address] [place], [place] [address] Kinjal Sherine MCH (RBC) [Entitic mass] 27.0 pg Normal 26.7-34.0 [facility] Comment on above: Performed By: #### C BC #### [facility] [address] [place], [place] [address] Kinjal Sherine MCHC (RBC) [Mass/Vol] 31.2 g/dL Normal 29.9-35.2 [facility] Comment on above: Performed By: #### C BC #### [facility] [address] [place], [place] [address] Kinjal Sherine MCV (RBC) [Entitic vol] 86.8 fL Normal 81.0-99.0 [facility] Comment on above: Performed By: #### C BC #### [facility] [address] [place] [address] Kinjal Sherine MONO # 0.3 103/ul Normal 0.3-0.8 [facility] Comment on above: Performed By: #### C BC #### [facility] [address] [place] [address] Kinjal Sherine Monocytes/100 WBC (Bld) 3.2 % Normal 1.7-12.[address] [facility] Comment on above: Performed By: #### C BC #### [facility] [address] [place], [place] [address] Kinjal Sherine NEUT # 7.8 103/ul Critically high 1.4-6.5 [facility] Comment on above: Performed By: #### C BC #### [facility] [address] [place] [address] Kinjal Sherine Neutrophils/100 WBC (Bld) 76.8 % Critically high 43.0-75.0 [facility] Comment on above: Performed By: #### C BC #### [facility] [address] [place], [place] [address] Kinjal Sherine Platelet mean volume (Bld) [Entitic vol] 9.1 fL Critically low 9.5-13.5 [facility] Comment on above: Performed By: #### C BC #### [facility] [address] [place], [place] [address] Kinjal Sherine PLT 350 103/ul Normal 150-450 [facility] Comment on above: Performed By: #### C BC #### [facility] [address] [place], [place] [address] Kinjal Sherine RBC 4.40 106/ul Normal 4.20-5.40 [facility] Comment on above: Performed By: #### C BC #### [facility] [address] [place], [place] [address] Kinjal Sherine WBC 10.1 103/ul Normal 4.0-11.0 [facility] Comment on above: Performed By: #### C BC #### [facility] [address] [place], [place] [address] Kinjal Sherine CT CHEST W CONon 06-10-2020 [...] ARELI RIVERA Date: 2020-06-10 03:43 Normal [facility] CT CSPINE WO CONon CT CSPINE [...] Haylie VILLAR Date: 2020-06-10 01:09 Normal [facility] CT HEAD WO CONon 06-10-2020 CT [...] ARELI RIVERA Date: 2020-06-10 01:01 Normal [facility] DRUG SCREEN RAPID (URINE)on 06-10-2020 AMP Negative Normal NEGATIVE [facility] Comment on above: Performed By: #### E RUR, DRUGRPD #### [facility] [address] [place] [address] Kinjal Sherine BAR Negative Normal NEGATIVE [facility] Comment on above: Performed By: #### E RUR, DRUGRPD #### [facility] [address] [place] [address] Kinjal Sherine BUP Negative Normal NEGATIVE [facility] Comment on above: Performed By: #### E RUR, DRUGRPD #### [facility] [address] [place] [address] Kinjal Sherine BZO Negative Normal NEGATIVE [facility] Comment on above: Performed By: #### E RUR, DRUGRPD #### [facility] [address] [place] [address] Kinjal Sherine CURTIS Negative Normal NEGATIVE [facility] Comment on above: Performed By: #### E RUR, DRUGRPD #### [facility] [address] [place] [address] [facility] SEE BELOW Normal [facility] Comment on above: Result Comment: AMP [...] Performed By: #### E RUR, DRUGRPD #### [facility] [address] [place] [address] DRUG CUT HEADER DRUG CLASS TEST SYST EM CUT-OFF CONCENTRATIONS ARE FOLLOWS: Normal [facility] Comment on above: Performed By: #### E RUR, DRUGRPD #### [facility] [address] [place] [address] mAMP Negative Normal NEGATIVE [facility] Comment on above: Performed By: #### E RUR, DRUGRPD #### [facility] [address] [place] [address] Kinjal Sherine MTD Negative Normal NEGATIVE [facility] Comment on above: Performed By: #### E RUR, DRUGRPD #### [facility] [address] [place] [address] Kinjal Sherine OPI Positive Abnormal NEGATIVE [facility] Comment on above: Performed By: #### E RUR, DRUGRPD #### [facility] [address] [place] [address] Kinjal Sherine OXY Negative Normal NEGATIVE [facility] Comment on above: Performed By: #### E RUR, DRUGRPD #### [facility] [address] [place] [address] PCP Negative Normal NEGATIVE [facility] Comment on above: Performed By: #### E RUR, DRUGRPD #### [facility] [address] [place] [address] PPX Negative Normal NEGATIVE [facility] Comment on above: Performed By: #### E RUR, DRUGRPD #### [facility] [address] [place] [address] Kinjal Sherine TCA Negative Normal NEGATIVE [facility] Comment on above: Performed By: #### Mitchell PETERSEN DRUGRPD #### [facility] [address] [place] [address] Kinjal Sherine THC Negative Normal NEGATIVE [facility] Comment on above: Performed By: #### Mitchell PETERSEN DRUGRPD #### [facility] [address] [place], [place] [address] Kinjal Sherine ER URINE PROFILEon 1 Bilirubin Ql (U) Negative Normal NEGATIVE The [facility] Comment on above: Performed By: #### Mitchell PETERSEN DRUGRPD #### [facility] [address] [place] [address] Kinjal Sherine Clarity (U) CLEAR Normal CLEAR [facility] Comment on above: Performed By: #### Mitchell PETERSEN DRUGRPD #### [facility] [address] [place] [address] Kinjal Sherine Color (U) LT. YELLOW Normal YELLOW [facility] Comment on above: Performed By: #### Mitchell PETERSEN DRUGRPD #### [facility] [address] [place] [address] Kinjal Sherine ERUAHD A micrscopic examination will be performed if indicated. Normal [facility] Comment on above: Performed By: #### Mitchell PETERSEN DRUGRPD #### [facility] [address] [place] [address] Kinjal Sherine Glucose Ql (U) Negative Normal NEGATIVE The [facility] Comment on above: Performed By: #### Mitchell PETERSEN DRUGRPD #### [facility] [address] [place] [address] Kinjal Sherine Hemoglobin Ql (U) Negative Normal NEGATIVE The [facility] Comment on above: Performed By: #### Mitchell PETERSEN DRUGRPD #### [facility] [address] [place] [address] Kinjal Sherine Ketones Ql (U) Negative Normal NEGATIVE [facility] Comment on above: Performed By: #### Mitchell PETERSEN DRUGRPD #### [facility] [address] [place] [address] Kinjal Sherine LEUKOCYTES Negative Normal NEGATIVE [facility] Comment on above: Performed By: #### Mitchell RUR, DRUGRPD #### [facility] [address] [place] [address] Kinjal Basurto Nitrite Ql (U) Negative Normal NEGATIVE [facility] Comment on above: Performed By: #### Mitchell RUR, DRUGRPD #### [facility] [address] [place] [address] Kinjal Basurto pH (U) 7.5 [pH] Normal 5-9 [facility] Comment on above: Performed By: #### E RUR, DRUGRPD #### [facility] [address] [place] [address] Kinjal Basurto SPEC GRAVITY 1.010 Normal 1.005-<=1.0 25 [facility] Comment on above: Performed By: #### Mitchell RUKatharine, DRUGRPD #### [facility] [address] [place] [address] Kinjal Basurto UA PROTEIN Negative Normal NEGATIVE/ TRACE [facility] Comment on above: Performed By: #### Mitchell RUKatharine, DRUGRPD #### [facility] [address] [place] [address] Kinjal Basurto UR MICRO IND NOT INDICATED Normal [facility] Comment on above: Performed By: #### Mitchell RUKatharine, DRUGRPD #### [facility] [address] [place] [address] Kinjal Basurto Urobilinogen Qn (U) 0.2 {Jazmine'U}/dL Normal 0.2 - 1. 0 [facility] Comment on above: Performed By: #### E RUR, DRUGRPD #### [facility] [address] [place] [address] Kinjal Basurto ETHANOL (BLD ALC)on 06-11-19 ALC NOTE NOTE: 80 mg/dl is th e legal limit for a blood alcohol level Normal [facility] Comment on above: Performed By: #### E TH ####[facility] [address] [place], [place] [address]Bfhdhs Karen Ethanol [Mass/Vol] 200 mg/dL Normal [facility] Comment on above: Performed By: #### E ####[facility] [address] [place], [place] [address]Obapfz Karen PROF 14(COMP METB)on 021 Albumin [Mass/Vol] 3.8 g/dL Normal 3.5-5.0 [facility] Comment on above: Performed By: #### C MP #### [facility] [address] [place] [address] Kinjal Sherine Albumin/Globulin [Mass ratio] 1.2 {ratio} Normal [facility] Comment on above: Performed By: #### C MP #### [facility] [address] [place] [address] Kinjal Sherine ALP [Catalytic activity/Vol] 54 U/L Normal 38-126 [facility] Comment on above: Performed By: #### C MP #### [facility] [address] [place] [address] Kinjal Sherine ALT [Catalytic activity/Vol] 19 U/L Normal 9-52 [facility] Comment on above: Performed By: #### C MP #### [facility] [address] [place] [address] Kinjal Sherine Anion gap [Moles/Vol] 12.2 mmol/L Normal Th [facility] Comment on above: Performed By: #### C MP #### [facility] [address] [place], [place] [address] Kinjal Sherine AST [Catalytic activity/Vol] 13 U/L Critically low 14-36 [facility] Comment on above: Performed By: #### C MP #### [facility] [address] [place], [place] [address] Kinjal Sherine Bilirubin [Mass/Vol] 0.3 mg/dL Normal 0.2-1.3 [facility] Comment on above: Performed By: #### C MP #### [facility] [address] [place] [address] Kinjal Sherine Calcium [Mass/Vol] 8.4 mg/dL Normal 8.4-10.2 [facility] Comment on above: Performed By: #### C MP #### [facility] [address] [place] [address] Kinjal Sherine Chloride [Moles/Vol] 109 mmol/L Critically high 98-107 [facility] Comment on above: Performed By: #### C MP #### [facility] [address] [place] [address] Kinjal Sherine CO2 [Moles/Vol] 27.5 mmol/L Normal 22.0-30.0 [facility] Comment on above: Performed By: #### C MP #### [facility] [address] [place] [address] Kinjal Sherine Creatinine [Mass/Vol] 0.73 mg/dL Normal 0.52-1.04 [facility] Comment on above: Performed By: #### C MP #### [facility] [address] [place], [place] [address] Kinjal Sherine EGFR-AF BARBADIAN >60 Normal >=60 [facility] Comment on above: Performed By: #### C MP #### [facility] [address] [place], [place] [address] Kinjal Sherine EGFR-NON AF BARBADIAN >60 Normal >=60 [facility] Comment on above: Performed By: #### C MP #### [facility] [address] [place], [place] [address] Kinjal Sherine Globulin (S) [Mass/Vol] 3.3 g/dL Normal [facility] Comment on above: Performed By: #### C MP #### [facility] [address] [place] [address] Kinjal Sherine Glucose [Mass/Vol] 85 mg/dL Normal 74-106 [facility] Comment on above: Performed By: #### C MP #### [facility] [address] [place] [address] Kinjal Sherine Potassium [Moles/Vol] 3.7 mmol/L Normal 3.4-5.0 [facility] Comment on above: Performed By: #### C MP #### [facility] [address] [place] [address] Kinjal Sherine Protein [Mass/Vol] 7.1 g/dL Normal 6.1-8.2 [facility] Comment on above: Performed By: #### C MP #### [facility] [address] [place] [address] Kinjal Basurto Sodium [Moles/Vol] 145 mmol/L Normal 137-145 [facility] Comment on above: Performed By: #### C MP #### [facility] [address] [place] [address] Kinjal Basurto Urea nitrogen [Mass/Vol] 9.0 mg/dL Normal 7.0-17.0 [facility] Comment on above: Performed By: #### C MP #### [facility] [address] [place] [address] Kinjal Basurto Urea nitrogen/Creatinine [Mass ratio] 12.3 mg/mg Normal [facility] Comment on above: Performed By: #### C MP #### [facility] [address] [place] [address] Kinjal Basurto Rapid Covid-19 PCR (CVDRPD)o n 06-10-2020 SARS-CoV-2 (COVID-19) RNA AIDEE+probe Ql (Unsp spec) Not detected Normal NOT DETECTED [facility] Comment on above: Result Comment: This test is not yet approved or cleared by the [place] Food and Drug Administration (FDA). This test was developed by [employer], [place], [place]. The performance characteristics of this test were validated by [facility]. The results are not intended to be used as the sole means for clinical diagnosis or patient management decisions. [facility] is authorized under Clinical Laboratory Improvement Amendments (CLIA) to perform high- complexity testing. When diagnostic testing is negative, the possibility of a false negative should be considered in the context of a patient's recent exposures and the presence of clinical signs and symptoms consistent with SARS-CoV-2. Performed By: #### C VDRPD ####[facility] [address] [place] [id number] Basurto XR CLAVICLE LTon 06-10-2020 XR CLAVICLE [...] Haylie VILLAR Date: 2020-06-10 01:50 Normal [facility] XR SHOULDER LT 2V or >on [...] BENNY ARMSTRONG Date: 2020-06-10 01:45 Normal [facility] Cult, Bloodon 2018 Cult, Blood Specimen Description .BLOOD Special Requests RT HAND Culture NO GROWTH 6 DAYS Report Status FINAL 2018 [facility] Comment on above: Performed By: #### B CUL2 ####[facility] [address] [place], [place] [id number] lab Director: Reed Mckeon MD Cult,Bloodon 2018 Cult,Blood Specimen Description .BLOOD Special Requests L ARM 10CC Culture NO GROWTH 6 DAYS Report Status FINAL 2018 [facility] Comment on above: Performed By: #### B C ####[facility] [address] [place] [address] lab Director: Reed Mckeon MD Basic Metab w/rfx MGon 04-16 (cont.) Normal [facility] Comment on above: Result Comment: Aver age GFR for 20-29 years old: 116 mL/min/1.73sq m Chronic Kidney Disease: <60 mL/min/1.73sq m Kidney failure: <15 mL/min/1.73sq m eGFR calculated using average adult body mass. Additional eGFR calculator available at: http://www.48domain.SnowGate/multiple_crcl_2012.htm Performed By: #### C BC, BMPX ####[facility] [address] [place], [place] [phone])[phone] Director: Reed Mckeon MD Anion gap molar conc 13 mmol/L Normal 9-17 [facility] Comment on above: Performed By: #### C BC, BMPX ####[facility] [address] [place], [place] [phone] Director: Reed Mckeon MD Calcium mass conc 8.7 mg/dL Normal 8.6-10.4 [facility] Comment on above: Performed By: #### C BC, BMPX ####[facility] [address] [place], [place] [phone])[phone] Director: Reed Mckeon MD Chloride molar conc 110 mmol/L High 98-107 [facility] Comment on above: Performed By: #### C BC, BMPX ####[facility] [address] [place], [place] [phone] Director: Reed Mckeon MD CO2 molar conc 18 mmol/L Low 20-31 [facility] Comment on above: Performed By: #### C BC, BMPX ####[facility] [address] [place], [place] [phone] Director: Reed Mckeon MD Creatinine mass conc 0.49 mg/dL Low 0.50-0.90 [facility] Comment on above: Performed By: #### C BC, BMPX ####[facility] [address] [place], [place] [phone] Director: Reed Mckeon MD GFR, Amer >60 Normal >[address] [facility] Comment on above: Performed By: #### C BC, BMPX ####[facility] Ftngkcmcfvgc4739 [place], [place] [phone] Director: Reed Mckeon MD GFR,non Amer >60 Normal >60 [facility] Comment on above: Performed By: #### C BC, BMPX ####[facility] Zuvgjelfsqvu7265 [place], [place] [phone] Director: Reed Mckeon MD Glucose mass conc 74 mg/dL Normal 70-99 [facility] Comment on above: Performed By: #### C BC, BMPX ####[facility] Lzildnbpvmms4727 [place], [place] [phone] Director: Reed Mckeon MD Potassium molar conc 4.2 mmol/L Normal 3.7-5.3 [facility] Comment on above: Performed By: #### C BC, BMPX ####[facility] Hpmfvkhksohn5943 [place], [place] [phone] Director: Reed Mckeon MD Sodium molar conc 141 mmol/L Normal 135-144 [facility] Comment on above: Performed By: #### C BC, BMPX ####[facility] Hlfeuoqcoady4695 [place], [place] [phone] Director: Reed Mckeon MD Urea nitrogen mass conc 6 mg/dL Normal 6-20 [facility] Comment on above: Performed By: #### C BC, BMPX ####[facility] Bvcedyqvhjkv0940 [place], [place] [phone] Director: Reed Mckeon MD BUN/CRE Ratio NOT REPORTED Normal 9-20 [facility] Comment on above: Performed By: #### C BC, BMPX ####[facility] Jkyzxkdxtril1583 [place], [place] [phone] Director: Reed Mckeon MD Staging: NOT REPORTED Normal [facility] Comment on above: Performed By: #### C BC, BMPX ####[facility] Bprdarpgqria3565 [place] [address] Lab Director: Reed Mckeon MD CBCon 04-16-2018 Erythrocyte distribution width Ratio (RBC) 12.9 % Normal 11.8-14.4 [facility] Comment on above: Performed By: #### C BC, BMPX ####[facility] Xdbaywticsvo2113 [place], [place] [phone] Director: Reed Mckeon MD Hematocrit Volume Fraction (Bld) 33.9 % Low 36.3-47.1 [facility] Comment on above: Performed By: #### C BC, BMPX ####[facility] Efmbjqiiqysj6435 [place], [place] [phone] Director: Reed Mckeon MD Hemoglobin mass conc (Bld) 10.6 g/dL Low 11.9-15.1 [facility] Comment on above: Performed By: #### C BC, BMPX ####[facility] Ebfqevjbvyok8957 [place], [place] [phone] Director: Reed Mckoen MD MCH Entitic mass (RBC) 28.3 pg Normal 25.2-33.5 [facility] Comment on above: Performed By: #### C BC, BMPX ####[facility] [address] [place] [address] [phone] Director: Reed Mckeon MD MCHC mass conc (RBC) 31.3 g/dL Normal 28.4-34.8 [facility] Comment on above: Performed By: #### C BC, BMPX ####[facility] Vfsxkwphdlxv5349 [place], [place] [phone] Director: Reed Mckeon MD MCV Entitic volume (RBC) 90.6 fL Normal 82.6-102.9 [facility] Comment on above: Performed By: #### C BC, BMPX ####[facility] Zkicdjzpiyys9279 [place], [place] [phone] Director: Reed Mckeon MD NRBC Automated 0.0 per 100 WBC Normal 0.0 [facility] Comment on above: Performed By: #### C BC, BMPX ####[place] [place], [place] [phone] Director: Reed Mckeon MD Platelet mean volume Entitic volume (Bld) 9.8 fL Normal 8.1-13.5 [facility] Comment on above: Performed By: #### C BC, BMPX ####[address] [phone] Director: Reed Mckeon MD Platelets #/vol (Bld) 257 10*3/uL Normal 138-453 [facility] Comment on above: Performed By: #### C BC, BMPX ####[address] [phone] Director: Reed Mckeon MD RBC #/vol (Bld) 3.74 10*6/uL Low 3.95-5.11 [facility] Comment on above: Performed By: #### C BC, BMPX ####[facility] [place] [address] [phone] Director: Reed Mckeon MD WBC #/vol (Bld) 5.8 10*3/uL Normal 3.5-11.[address] [facility] Comment on above: Performed By: #### C BC, BMPX ####[facility] [place] [address] [phone] Director: Reed Mckeon MD Cult,Respiratoryon 9 Cult,Respiratory Specimen Description .EXPECTORATED SPUTUM Special Requests NOT REPORTED Direct Exam >10 EPITHELIAL CELLS/LPF: SPECIMEN IS CONTAMINATED WITH ORAL PHARYNGEAL YOGESH AND IS UNACCEPTABLE FOR BACTERIAL CULTURE. PLEASE SUBMIT ANOTHER SPECIMEN. EVERETTE Mathews NOTIFIED Culture NOT REPORTED Report Status FINAL 04/16/2018 Normal [facility] Comment on above: Performed By: #### R ESPC ####[address] [phone] Lab Director: Reed Mckeon MD Troponinon 04-16-2018 Troponin I.cardiac mass conc ng/mL Normal 0-14 [facility] Comment on above: Result Comment: High Sensitivity Troponin values cannot be compared with other Troponin methodologies. Patients with high levels of Biotin oral intake (i.e >5mg/day) may have falsely decreased Troponin levels. Samples collected within 8 hours of biotin intake may require additional information for diagnosis. Performed By: #### T ROPI ####[address] [phone] lab Director: Reed Mckeon MD Gram Stainon 04-15-2018 Microscopic observation Gram stain Nom (Unsp spec) Specimen Description .EXPECTORATED SPUTUM Special Requests NOT REPORTED Direct Exam DUPLICATE ORDER Report Status FINAL 04/15/2018 Normal [facility] Comment on above: Performed By: #### P PPVS #### [address] [phone] HCG Screen, Bloodon 04-16-19 19 HCG Qn Negative Normal NEG [facility] Comment on above: Result Comment: Spec imens with hCG levels near the threshold of the test (25 mIU/mL) may give a negative or indeterminate result. In such cases, another test should be performed with a new specimen in 48-72 hours. If early is suspected clinically in this setting, correlation with quantitative serum b-hCG level is suggested. [facility] has confirmed the use of plasma for this test. This has not been cleared or approved by the U.S. Food and Drug Administration. The FDA has determined that such clearance is not necessary. Performed By: #### P PPVS #### [facility] [address] [place], [place] [phone] Legionella Ag, Uron 04-16-19 19 Legionella Ag, [...] this test. Report Status FINAL 04/15/2018 Normal [facility] Comment on above: Performed By: #### U LAG ####[address] [address] Lab Director: Reed Mckeon MD Resp Viral Panelon 9 Adenovirus Not Detected Normal [facility] Comment on above: Performed By: #### P PPVS #### [address] [address] Bordetella pertussis Not Detected Normal [facility] Comment on above: Performed By: #### P PPVS #### [address] [address] Chlamyd.pneumoniae Not Detected Normal [facility] Comment on above: Performed By: #### P PPVS #### [address] [address] Coronavirus 229E Not Detected Normal [facility] Comment on above: Performed By: #### P PPVS #### [address] [address] Coronavirus HKU1 Not Detected Normal [facility] Comment on above: Performed By: #### P PPVS #### [address] [address] Coronavirus NL63 Not Detected Normal [facility] Comment on above: Performed By: #### P PPVS #### [address] [address] Coronavirus OC43 Not Detected Normal [facility] Comment on above: Performed By: #### P PPVS #### [address] [address] Human Metapneumo Not Detected Normal [facility] Comment on above: Performed By: #### P PPVS #### [address] [address] Influenza A Not Detected Normal [facility] Comment on above: Performed By: #### P PPVS #### [address] [address] Influenza B Not Detected Normal [facility] Comment on above: Performed By: #### P PPVS #### [address] [address] Mycoplas.pneumoniae Not Detected Normal [facility] Comment on above: Result Comment: Perf ormed by multiplexed nucleic acid assay. Performed By: #### P PPVS #### [address] [address] Parainfluenza 1 Not Detected Normal [facility] Comment on above: Performed By: #### P PPVS #### [address] [address] Parainfluenza 2 Not Detected Normal [facility] Comment on above: Performed By: #### P PPVS #### [address] [address] Parainfluenza 3 Not Detected Normal [facility] Comment on above: Performed By: #### P PPVS #### [address] [address] Parainfluenza 4 Not Detected Normal [facility] Comment on above: Performed By: #### P PPVS #### [address] [address] Resp Syncytial Virus Not Detected Normal [facility] Comment on above: Performed By: #### P PPVS #### [address] [address] Rhino/Enterovirus Not Detected Normal [facility] Comment on above: Performed By: #### P PPVS #### [address] [address] Influenza A H1 NOT REPORTED Normal [facility] Comment on above: Performed By: #### P PPVS #### [address] [address] Influenza A H1-2009 NOT REPORTED Normal [facility] Comment on above: Performed By: #### P PPVS #### [address] [address] Influenza A H3 NOT REPORTED Normal [facility] Comment on above: Performed By: #### P PPVS #### [address] [address] Source: .NASOPHARYNGEAL SWAB Normal [facility] Comment on above: Performed By: #### P PPVS #### [address] [address] Strep pneum Ag,CSF/Uron 03-0 Strep pneum Ag,CSF/Ur Specimen Descripti on .CLEAN CATCH URINE Special Requests NOT REPORTED Direct Exam NEGATIVE: Strep pneumoniae antigen not detected Report Status FINAL 04/15/2018 [facility] Comment on above: Performed By: #### S PAG ####[address] [phone] Lab Director: Reed Mckeon MD Troponinon 04-15-2018 Troponin I.cardiac mass conc NOT REPORTED Normal <0.03 [facility] Comment on above: Performed By: #### T ROPI ####[facility] Jwktsbcvutiu9228 [place] [address] lab Director: Reed Mckeon MD Troponin I.cardiac mass conc ng/mL Normal 0-14 [facility] Comment on above: Result Comment: High Sensitivity Troponin values cannot be compared with other Troponin methodologies. Patients with high levels of Biotin oral intake (i.e >5mg/day) may have falsely decreased Troponin levels. Samples collected within 8 hours of biotin intake may require additional information for diagnosis. Performed By: #### P PPVS #### [facility] [employer] [address] [place] [address] Troponin I.cardiac mass conc NOT REPORTED Normal <0.03 [facility] Comment on above: Performed By: #### P PPVS #### [facility] [address] [place] [address] XR CHEST PORTABLEon 04-16-19 19 XR CHEST PORTABLE EXAMINATION: SINGLE XRAY VIEW OF THE CHEST 04/15/2018 3:19 pm COMPARISON: 04/02/2018 HISTORY: ORDERING SYSTEM PROVIDED HISTORY: transferred from [facility] due to PNA. POD#3 s/p lap sleeve gastrectomy. TECHNOLOGIST PROVIDED HISTORY: transferred from [facility] due to PNA. POD#3 s/p lap sleeve [...] Brando Agustin MD 04/15/18 Final result Normal [facility] [place] ESOPHAGRAMon 04-14-2018 [place] ESOPHAGRAM EXAMINATION: [...] persistent dysphagia and burning sensation. FINDINGS: Fluoroscopic gold tooler images were obtained of the upper abdomen [...] Steve Topete MD 04/14/18 Final result Normal [facility] Basic Metabolic Profon 04-13 (cont.) Normal [facility] Comment on above: Result Comment: Aver age GFR for 20-29 years old: 116 mL/min/1.73sq m Chronic Kidney Disease: <60 mL/min/1.73sq m Kidney failure: <15 mL/min/1.73sq m eGFR calculated using average adult body mass. Additional eGFR calculator available at: http://www.48domain.SnowGate/multiple_crcl_2011.htm Performed By: #### P PPVS #### [facility] [employer] [facility] [place] [address] Anion gap molar conc 11 mmol/L Normal -17 [facility] Comment on above: Performed By: #### P PPVS #### [facility] [employer] [address] [place] [address] Calcium mass conc 8.8 mg/dL Normal 8.6-10.4 [facility] Comment on above: Performed By: #### P PPVS #### [facility] [employer] [address] [place] [address] Chloride molar conc 104 mmol/L Normal 98-107 [facility] Comment on above: Performed By: #### P PPVS #### [facility] [employer] [address] [place] [address] CO2 molar conc 24 mmol/L Normal 20-31 [facility] Comment on above: Performed By: #### P PPVS #### [facility] [employer] [address] [place] [address] Creatinine mass conc 0.68 mg/dL Normal 0.50-0.90 [facility] Comment on above: Performed By: #### P PPVS #### [facility] [employer] [address] [place] [address] GFR, Amer >60 Normal >[address] [facility] Comment on above: Performed By: #### P PPVS #### [facility] [address] [place] [address] GFR,non Amer >60 Normal >60 [facility] Comment on above: Performed By: #### P PPVS #### [facility] [employer] [address] [place] [address] Glucose mass conc 90 mg/dL Normal 70-99 [facility] Comment on above: Performed By: #### P PPVS #### [facility] [employer] [address] [place] [address] Potassium molar conc 4.4 mmol/L Normal 3.7-5.3 [facility] Comment on above: Performed By: #### P PPVS #### [facility] [employer] [facility] [place] [address] Sodium molar conc 139 mmol/L Normal 135-144 [facility] Comment on above: Performed By: #### P PPVS #### [facility] [employer] [address] [place] [address] Urea nitrogen mass conc 5 mg/dL Low 6-20 [facility] Comment on above: Performed By: #### P PPVS #### [address] [address] BUN/CRE Ratio NOT REPORTED Normal - [facility] Comment on above: Performed By: #### P PPVS #### [facility] [employer] [address] [place] [address] Staging: NOT REPORTED Normal [facility] Comment on above: Performed By: #### P PPVS #### [facility] [employer] [address] [place] [address] CBCon 04-13-2018 Erythrocyte distribution width Ratio (RBC) 12.9 % Normal 11.8-14.4 [facility] Comment on above: Performed By: #### P PPVS #### [facility] [employer] [address] [place] [address] Hematocrit Volume Fraction (Bld) 36.8 % Normal 36.3-47.1 [facility] Comment on above: Performed By: #### P PPVS #### [facility] [employer] [address] [place] [address] Hemoglobin mass conc (Bld) 11.7 g/dL Low 11.9-15.1 [facility] Comment on above: Performed By: #### P PPVS #### [facility] [employer] [address] [place] [address] MCH Entitic mass (RBC) 28.3 pg Normal 25.2-33.5 [facility] Comment on above: Performed By: #### P PPVS #### [address] [address] MCHC mass conc (RBC) 31.8 g/dL Normal 28.4-34.8 [facility] Comment on above: Performed By: #### P PPVS #### [address] [address] MCV Entitic volume (RBC) 88.9 fL Normal 82.6-102.9 [facility] Comment on above: Performed By: #### P PPVS #### [address] [address] NRBC Automated 0.0 per 100 WBC Normal 0.0 [facility] Comment on above: Performed By: #### P PPVS #### [address] [address] Platelet mean volume Entitic volume (Bld) 10.1 fL Normal 8.1-13.5 [facility] Comment on above: Performed By: #### P PPVS #### [address] [address] Platelets #/vol (Bld) 306 10*3/uL Normal 138-453 [facility] Comment on above: Performed By: #### P PPVS #### [address] [address] RBC #/vol (Bld) 4.14 10*6/uL Normal 3.95-5.11 [facility] Comment on above: Performed By: #### P PPVS #### [address] [address] WBC #/vol (Bld) 8.1 10*3/uL Normal 3.5-11.[address] [facility] Comment on above: Performed By: #### P PPVS #### [facility] [address] [place], [place] [phone] [place] ESOPHAGRAMon 04-13-2018 [place] ESOPHAGRAM EXAMINATION: SINGLE [...] Jordan Mejia MD 04/13/18 Final result Normal [facility] Basic Metabolic Profon 04-12 (cont.) Normal [facility] Comment on above: Result Comment: Aver age GFR for 20-29 years old: 116 mL/min/1.73sq m Chronic Kidney Disease: <60 mL/min/1.73sq m Kidney failure: <15 mL/min/1.73sq m eGFR calculated using average adult body mass. Additional eGFR calculator available at: http://www.48domain.SnowGate/multiple_crcl_2012.htm Performed By: #### C BC, BMP #### [facility] [address] [place], [place] [phone] Hand I Tube Bender: Reed Mckeon MD Anion gap molar conc 16 mmol/L Normal 9-17 [facility] Comment on above: Performed By: #### C BC, BMP #### [facility] [address] [place], [place] [phone] Hand I Tube Bender: Reed Mckeon MD Calcium mass conc 8.9 mg/dL Normal 8.6-10.4 [facility] Comment on above: Performed By: #### C BC, BMP #### [facility] [address] [place] [address] Hand I Tube Bender: Reed Mckeon MD Chloride molar conc 108 mmol/L High 98-107 [facility] Comment on above: Performed By: #### C BC, BMP #### [facility] [address] [place] [address] Hand I Tube Bender: Reed Mckeon MD CO2 molar conc 19 mmol/L Low 20-31 [facility] Comment on above: Performed By: #### C BC, BMP #### [facility] [employer] [address] [place] [address] Hand I Tube Bender: Reed Mckeon MD Creatinine mass conc 0.62 mg/dL Normal 0.50-0.90 [facility] Comment on above: Performed By: #### C BC, BMP #### [facility] [employer] [address] [place] [address] Hand I Tube Bender: Reed Mckeon MD GFR, Amer >60 Normal >[address] [facility] Comment on above: Performed By: #### C BC, BMP #### [facility] [employer] [address] [place] [address] Hand I Tube Bender: Reed Mckeon MD GFR,non Amer >60 Normal >60 [facility] Comment on above: Performed By: #### C BC, BMP #### [facility] [address] [place] [address] Hand I Tube Bender: Reed Mckeon MD Glucose mass conc 124 mg/dL High 70-99 [facility] Comment on above: Performed By: #### C BC, BMP #### [facility] [address] [place] [address] Hand I Tube Bender: Reed Mckeon MD Potassium molar conc 4.2 mmol/L Normal 3.7-5.3 [facility] Comment on above: Performed By: #### C BC, BMP #### [address] [address] Hand I Tube Bender: Reed Mckeon MD Sodium molar conc 143 mmol/L Normal 135-144 [facility] Comment on above: Performed By: #### C BC, BMP #### [address] [address] Hand I Tube Bender: Reed Mckeon MD Urea nitrogen mass conc 8 mg/dL Normal 6-20 M [facility] Comment on above: Performed By: #### C BC, BMP #### [address] [address] Hand I Tube Bender: Reed Mckeon MD BUN/CRE Ratio NOT REPORTED Normal 9-20 [facility] Comment on above: Performed By: #### C BC, BMP #### [address] [address] Hand I Tube Bender: Reed Mckeon MD Staging: NOT REPORTED Normal [facility] Comment on above: Performed By: #### C BC, BMP #### [address] [address] Hand I Tube Bender: Reed Mckeon MD CBCon 04-12-2018 Erythrocyte distribution width Ratio (RBC) 12.6 % Normal 11.8-14.4 [facility] Comment on above: Performed By: #### C BC, BMP #### [address] [address] Hand I Tube Bender: Reed Mckeon MD Hematocrit Volume Fraction (Bld) 44.2 % Normal 36.3-47.1 [facility] Comment on above: Performed By: #### C BC, BMP #### [address] [address] Hand I Tube Bender: Reed Mckeon MD Hemoglobin mass conc (Bld) 13.8 g/dL Normal 11.9-15.1 [facility] Comment on above: Performed By: #### C BC, BMP #### [address] [address] Hand I Tube Bender: Reed Mckeon MD MCH Entitic mass (RBC) 28.4 pg Normal 25.2-33.5 [facility] Comment on above: Performed By: #### C BC, BMP #### [address] [address] Hand I Tube Bender: Reed Mckeon MD MCHC mass conc (RBC) 31.2 g/dL Normal 28.4-34.8 [facility] Comment on above: Performed By: #### C BC, BMP #### [address] [address] Hand I Tube Bender: Reed Mckeon MD MCV Entitic volume (RBC) 90.9 fL Normal 82.6-102.9 [facility] Comment on above: Performed By: #### C BC, BMP #### [address] [address] Hand I Tube Bender: Reed Mckeon MD NRBC Automated 0.0 per 100 WBC Normal 0.0 [facility] Comment on above: Performed By: #### C BC, BMP #### [address] [address] Hand I Tube Bender: Reed Mckeon MD Platelet mean volume Entitic volume (Bld) 10.2 fL Normal 8.1-13.5 [facility] Comment on above: Performed By: #### C BC, BMP #### [address] [address] Hand I Tube Bender: Reed Mckeon MD Platelets #/vol (Bld) 299 10*3/uL Normal 138-453 [facility] Comment on above: Performed By: #### C BC, BMP #### [facility] [place] [address] Hand I Tube Bender: Reed Mckeon MD RBC #/vol (Bld) 4.86 10*6/uL Normal 3.95-5.11 [facility] Comment on above: Performed By: #### C BC, BMP #### [facility] [place] [address] Hand I Tube Bender: Reed Mckeon MD WBC #/vol (Bld) 18.0 10*3/uL High 3.5-11.3 [facility] Comment on above: Performed By: #### C BC, BMP #### [facility] [address] [place] [address] Hand I Tube Bender: Reed Mckeon MD Surgical Pathologyon 019 Surgical Pathology (NOTE) [id number] [facility] CONSULTING PATHOLOGISTS [facility] ANATOMIC PATHOLOGY [address] [place] [phone] SURGICAL PATHOLOGY CONSULTATION Patient Name: ANTOINETTE RECIO [facility] Rec: [id number] Path Number: [id number] Collected: 04/12/2018 Received: 04/12/2018 Reported: 04/13/2018 13:37 [...] with no areas of granularity or masses. Ham Curer sections 1cs. tm Microscopic Description The gastric mucosa shows intact architecture and no active or chronic inflammation. There is no histological evidence for Helicobacter. There is no intestinal metaplasia or dysplasia. The submucosa and muscularis propria show no histologic abnormality. Normal [facility] Comment on above: Performed By: #### P PPVS #### [facility] [address] [place] [address] Nicotineon 04-08-2018 [id number] <2 Normal [facility] Comment on above: Performed By: #### C BC, PT, PTT, BMP #### [facility] [address] [place] [address] Hand I Tube Bender: Reed Mckeon MD #### ANICOT #### [facility] [address] [place], [place] [phone] Hand I Tube Bender: Eduin Alvarez MD Cotinine <2 Normal [facility] Comment on above: Performed By: #### C BC, PT, PTT, BMP #### [facility] [address] [place] [address] Hand I Tube Bender: Reed Mckeon MD #### ANICOT #### [facility] [address] [place] [address] Hand I Tube Bender: Eduin Alvarez MD Nicotine <2 Normal [facility] [facility] Comment on above: Result Comment: (NOT [...] positive. Test developed and characteristics determined by [employer]. See Compliance Statement B: [email or web address] Performed by [facility], [address] [place], [place] [id number] [email or web address] [facility], Eduin Alvarez MD, Lab. Director Performed By: #### C BC, PT, PTT, BMP #### [address] [phone] Hand I Tube Bender: Reed Mckeon MD #### ANICOT #### [address] [phone] Hand I Tube Bender: Eduin Alvarez MD APTTon 04-02-2018 aPTT Coag time (Bld) 24.7 s Normal 20.5-30.5 [facility] Comment on above: Performed By: #### C BC, PT, PTT, BMP #### [address] [phone] Hand I Tube Bender: Reed Mckeon MD #### ANICOT #### [address] [address] Hand I Tube Bender: Eduin Alvarez MD Basic Metabolic Profon 04-02 (cont.) [facility] Comment on above: Result Comment: Aver age GFR for 20-29 years old: 116 mL/min/1.73sq m Chronic Kidney Disease: <60 mL/min/1.73sq m Kidney failure: <15 mL/min/1.73sq m eGFR calculated using average adult body mass. Additional eGFR calculator available at: http://www.48domain.SnowGate/multiple_crcl_2012.htm Performed By: #### C BC, PT, PTT, BMP #### [address] [phone] Hand I Tube Bender: Reed Mckeon MD #### ANICOT #### [facility] [address] [place] [address] Hand I Tube Bender: Eduin Alvarez MD Anion gap molar conc 15 mmol/L Normal 9-17 [facility] Comment on above: Performed By: #### C BC, PT, PTT, BMP #### [address] [address] Hand I Tube Bender: Reed Mckeon MD #### ANICOT #### [facility] [address], [place] [id number] Hand I Tube Bender: Eduin Alvarez MD Calcium mass conc 9.6 mg/dL Normal 8.6-10.4 [facility] Comment on above: Performed By: #### C BC, PT, PTT, BMP #### [address] [address] Hand I Tube Bender: Reed Mckeon MD #### ANICOT #### [facility] [address], [place] [phone] Hand I Tube Bender: Eduin Alvarez MD Chloride molar conc 102 mmol/L Normal 98-107 [facility] Comment on above: Performed By: #### C BC, PT, PTT, BMP #### [address] [address] Hand I Tube Bender: Reed Mckeon MD #### ANICOT #### [facility] [address], [place] [phone] Hand I Tube Bender: Eduin Alvarez MD CO2 molar conc 23 mmol/L Normal 20-31 [facility] Comment on above: Performed By: #### C BC, PT, PTT, BMP #### [address] [address] Hand I Tube Bender: Reed Mckeon MD #### ANICOT #### [facility] [address], [place] [phone] Hand I Tube Bender: Eduin Alvarez MD Creatinine mass conc 0.62 mg/dL Normal 0.50-0.90 [facility] Comment on above: Performed By: #### C BC, PT, PTT, BMP #### [address] [address] Hand I Tube Bender: Reed Mckeon MD #### ANICOT #### [facility] [address] [place] [address] Hand I Tube Bender: Eduin Alvarez MD GFR, Amer >60 Normal >[address] [facility] Comment on above: Performed By: #### C BC, PT, PTT, BMP #### [address] [address] Hand I Tube Bender: Reed Mkceon MD #### ANICOT #### [facility] [address] [place] [address] Hand I Tube Bender: Eduin Alvarez MD GFR,non Amer >60 Normal >60 [facility] Comment on above: Performed By: #### C BC, PT, PTT, BMP #### [address] [address] Hand I Tube Bender: Reed Mckeon MD #### ANICOT #### [facility] [address] [place] [address] Hand I Tube Bender: Eduin Alvarez MD Glucose mass conc 86 mg/dL Normal 70-99 [facility] Comment on above: Performed By: #### C BC, PT, PTT, BMP #### [address] [address] Hand I Tube Bender: Reed Mckeon MD #### ANICOT #### [facility] [address] [place] [address] Hand I Tube Bender: Eduin Alvarez MD Potassium molar conc 4.2 mmol/L Normal 3.7-5.3 [facility] Comment on above: Performed By: #### C BC, PT, PTT, BMP #### [facility] [address] [place] [address] Hand I Tube Bender: Reed Mckeon MD #### ANICOT #### [facility] [address], [place] [phone] Hand I Tube Bender: Eduin Alvarez MD Sodium molar conc 140 mmol/L Normal 135-144 [facility] Comment on above: Performed By: #### C BC, PT, PTT, BMP #### [address] [address] Hand I Tube Bender: Reed Mckeon MD #### ANICOT #### [facility] [address], [place] [phone] Hand I Tube Bender: Eduin Alvarez MD Urea nitrogen mass conc 15 mg/dL Normal 6-20 [facility] Comment on above: Performed By: #### C BC, PT, PTT, BMP #### [address] [address] Hand I Tube Bender: Reed Mckeon MD #### ANICOT #### [facility] [address], [place] [phone] Hand I Tube Bender: Eduin Alvarez MD BUN/CRE Ratio NOT REPORTED Normal 9-20 [facility] Comment on above: Performed By: #### C BC, PT, PTT, BMP #### [address] [address] Hand I Tube Bender: Reed Mcekon MD #### ANICOT #### [facility] [address] [place] [address] Hand I Tube Bender: Eduin Alvarez MD Staging: NOT REPORTED Normal [facility] Comment on above: Performed By: #### C BC, PT, PTT, BMP #### [address] [address] Hand I Tube Bender: Reed Mckeon MD #### ANICOT #### [facility] [address], [place] [id number] Hand I Tube Bender: Eduin Alvarez MD CBCon 04-02-2018 Erythrocyte distribution width Ratio (RBC) 12.0 % Normal 11.8-14.4 [facility] Comment on above: Performed By: #### C BC, PT, PTT, BMP #### [address] [address] Hand I Tube Bender: Reed Mckeon MD #### ANICOT #### [facility] [address], [place] [phone] Hand I Tube Bender: Eduin Alvarez MD Hematocrit Volume Fraction (Bld) 41.3 % Normal 36.3-47.1 [facility] Comment on above: Performed By: #### C BC, PT, PTT, BMP #### [address] [phone] Hand I Tube Bender: Reed Mckeon MD #### ANICOT #### [address] [phone] Hand I Tube Bender: Eduin Alvarez MD Hemoglobin mass conc (Bld) 13.7 g/dL Normal 11.9-15.1 [facility] Comment on above: Performed By: #### C BC, PT, PTT, BMP #### [address] [phone] Hand I Tube Bender: Reed Mckeon MD #### ANICOT #### [facility] [address] [place] [phone] Hand I Tube Bender: Eduin Alvarez MD MCH Entitic mass (RBC) 28.4 pg Normal 25.2-33.5 [facility] Comment on above: Performed By: #### C BC, PT, PTT, BMP #### [address] [address] Hand I Tube Bender: Reed Mckeon MD #### ANICOT #### [facility] [address] [place] [address] Hand I Tube Bender: Eduin Alvarez MD MCHC mass conc (RBC) 33.2 g/dL Normal 28.4-34.8 [facility] Comment on above: Performed By: #### C BC, PT, PTT, BMP #### [address] [address] Hand I Tube Bender: Reed Mckeon MD #### ANICOT #### [facility] [address] [place] [address] Hand I Tube Bender: Eduin Alvarez MD MCV Entitic volume (RBC) 85.7 fL Normal 82.6-102.9 [facility] Comment on above: Performed By: #### C BC, PT, PTT, BMP #### [address] [phone] Hand I Tube Bender: Reed Mckeon MD #### ANICOT #### [address] [address] Hand I Tube Bender: Eduin Alvarez MD NRBC Automated 0.0 per 100 WBC Normal 0.0 [facility] Comment on above: Performed By: #### C BC, PT, PTT, BMP #### [address] [address] Hand I Tube Bender: Reed Mckeon MD #### ANICOT #### [facility] [address] [place] [address] Hand I Tube Bender: Eduin Alvarez MD Platelet mean volume Entitic volume (Bld) 9.4 fL Normal 8.1-13.5 [facility] Comment on above: Performed By: #### C BC, PT, PTT, BMP #### [address] [address] Hand I Tube Bender: Reed Mckeon MD #### ANICOT #### [address] [place] [address] Hand I Tube Bender: Eduin Alvarez MD Platelets #/vol (Bld) 392 10*3/uL Normal 138-453 [facility] Comment on above: Performed By: #### C BC, PT, PTT, BMP #### [address] [address] Hand I Tube Bender: Reed Mckeon MD #### ANICOT #### [facility] [address] [place] [address] Hand I Tube Bender: Eduin Alvarez MD RBC #/vol (Bld) 4.82 10*6/uL Normal 3.95-5.11 [facility] Comment on above: Performed By: #### C BC, PT, PTT, BMP #### [address] [address] Hand I Tube Bender: Reed Mckeon MD #### ANICOT #### [facility] [address] [place] [address] Hand I Tube Bender: Eduin Alvarez MD WBC #/vol (Bld) 10.4 10*3/uL Normal 3.5-11.3 [facility] Comment on above: Performed By: #### C BC, PT, PTT, BMP #### [address] [address] Hand I Tube Bender: Reed Mckeon MD #### ANICOT #### [facility] [address] [place] [address] Hand I Tube Bender: Eduin Alvarez MD PTon 04-02-2018 INR Coag RelTime (PPP) 1.0 {INR} Normal [facility] Comment on above: Result Comment: Therapeutic Range: Moderate Anticoagulant Intensity: INR = 2.0-3.0 High Anticoagulant Intensity: INR = 2.5-3.5 Performed By: #### C BC, PT, PTT, BMP #### [facility] [address] [place] [address] Hand I Tube Bender: Reed Mckeon MD #### ANICOT #### [facility] [address], [place] [phone] Hand I Tube Bender: Eduin Alvarez MD Prothrombin time (PT) Coag time (PPP) 10.3 s Normal 9.0-12.0 [facility] Comment on above: Performed By: #### C BC, PT, PTT, BMP #### [address] [phone] Hand I Tube Bender: Reed Mckeon MD #### ANICOT #### [facility] [address] [place] [address] Hand I Tube Bender: Eduin Alvarez MD XR CHEST (2 VW)on [...] Mijares Jr., DO 04/02/18 Final result Normal [facility] H. pylori Detectionon 2017 H. pylori Detection Specimen Description .TISSUE, STOMACH BIOPSY Special Requests LOT [id number] EXP FEB 2018 Seasonal Recruiter on this test is within expected limits. Direct Exam NEGATIVE Report Status FINAL 12/05/2017 Normal [facility] Comment on above: Performed By: #### H GENET #### [address] [phone] Surgical Pathologyon 018 Surgical Pathology (NOTE) [id number] [facility] ANATOMIC PATHOLOGY [address] [place] [phone] SURGICAL PATHOLOGY CONSULTATION Patient Name: ANTOINETTE RECIO [facility] Rec: [id number] Path Number: [id number] Collected: 12/04/2017 Received: 12/04/2017 Reported: 12/07/2017 12:25 [...] po tm Microscopic Description Microscopic examination performed. [facility] Comment on above: Performed By: #### P PPVS #### [facility] [employer] [address] [place] [phone] Vital Signs Date Time Vital Sign Value Performing Clinician Tahira luz 05-05-2023 15:13-0400 Body mass index (BMI) [Ratio] 29.32 kg/m2 Nieves Velasquez MD Work Phone: [facility] 05-05-2023 15:13-0400 Body weight 79.92 kg Nieves Velasquez MD Work Phone: [facility] 05-05-2023 15:13-0400 Diastolic blood pressure 84 mm[Hg] Nieves Velasquez MD Work Phone: [facility] 05-05-2023 15:13-0400 Systolic blood pressure 126 mm[Hg] Nieves Velasquez MD Work Phone: [facility] 11-30-2022 07:30-0400 Body temperature 97.9 [degF] PHYSICIAN NO [facility] 11-30-2022 07:30-0400 Diastolic blood pressure 104 mm[Hg] PHYSICIAN NO [facility] 11-30-2022 07:30-0400 Heart rate 68 /min PHYSICIAN NO [facility] 11-30-2022 07:30-0400 Respiratory rate 18 /min PHYSICIAN NO [facility] 11-30-2022 07:30-0400 SaO2% (BldA) [Mass fraction] 99 % PHYSICIAN NO [facility] 11-30-2022 07:30-0400 Systolic blood pressure 155 mm[Hg] PHYSICIAN NO [facility] 11-28-2022 14:23-0400 Body height 165.1 cm PHYSICIAN NO [facility] 11-27-2022 16:19-0400 Body weight 85.72 kg PHYSICIAN NO [facility] 11-27-2022 14:57-0400 Diastolic blood pressure 90 mm[Hg] PHYSICIAN NO [facility] 11-27-2022 14:57-0400 Heart rate 86 /min PHYSICIAN NO [facility] 11-27-2022 14:57-0400 Respiratory rate 18 /min PHYSICIAN NO [facility] 11-27-2022 14:57-0400 SaO2% (BldA) [Mass fraction] 98 % PHYSICIAN NO [facility] 11-27-2022 14:57-0400 Systolic blood pressure 142 mm[Hg] PHYSICIAN NO [facility] 11-27-2022 09:40-0400 Body height 165.1 cm PHYSICIAN NO [facility] 11-27-2022 09:40-0400 Body temperature 98.5 [degF] PHYSICIAN NO [facility] 11-27-2022 09:40-0400 Body weight 86.5 kg PHYSICIAN NO [facility] 05-13-2022 12:00-0400 Body temperature 98 [degF] PHYSICIAN NO [facility] 05-13-2022 12:00-0400 Diastolic blood pressure 79 mm[Hg] PHYSICIAN NO [facility] 05-13-2022 12:00-0400 Heart rate 102 /min PHYSICIAN NO [facility] 05-13-2022 12:00-0400 Respiratory rate 18 /min PHYSICIAN NO [facility] 05-13-2022 12:00-0400 SaO2% (BldA) [Mass fraction] 94 % PHYSICIAN NO [facility] 05-13-2022 12:00-0400 Systolic blood pressure 113 mm[Hg] PHYSICIAN NO [facility] 05-12-2022 09:00-0400 Body weight 79.83 kg PHYSICIAN NO [facility] 05-09-2022 14:19-0400 Body height 165.1 cm PHYSICIAN NO [facility] 05-09-2022 04:22-0400 Diastolic blood pressure 79 mm[Hg] PHYSICIAN NO [facility] 05-09-2022 04:22-0400 Systolic blood pressure 118 mm[Hg] PHYSICIAN NO [facility] 05-09-2022 01:14-0400 Heart rate 103 /min PHYSICIAN NO [facility] 05-09-2022 01:14-0400 Respiratory rate 18 /min PHYSICIAN NO [facility] 05-09-2022 01:14-0400 SaO2% (BldA) [Mass fraction] 97 % PHYSICIAN NO [facility] 05-08-2022 23:48-0400 Body height 165.1 cm PHYSICIAN NO [facility] 05-08-2022 23:48-0400 Body temperature 97.5 [degF] PHYSICIAN NO [facility] 05-08-2022 23:48-0400 Body weight 77.11 kg PHYSICIAN NO [facility] Encounters Encounter Date Encounter Type Care Provider Facility Start: 11-12-2023 End: 11-12-2023 Clinisync Result Encounter Eligio Priyanka DO Work Phone: [facility] Unsolicited Start: 11-12-2023 End: 11-12-2023 Clinisync Result Encounter Eligio Priyanka DO Work Phone: [facility] Unsolicited Start: 11-10-2023 End: 11-10-2023 ambulatory PHYSICIAN NO [facility] Work Phone: Start: 11-10-2023 End: 11-10-2023 Departed Referred PHYSICIAN NO [facility] Start: 11-10-2023 End: 11-10-2023 Clinisync Result Encounter Eligio Saucedao DO Work Phone: [facility] External [facility] Unsolicited Start: 11-10-2023 End: 11-10-2023 Clinisync Result Encounter Eligio Saucedao DO Work Phone: [facility] External [facility] Unsolicited Start: 11-04-2023 End: 11-04-2023 ambulatory ELIGIO SAUCEDAO Not Available Start: 09-15-2023 End: 09-15-2023 ambulatory LYNN Quincy [facility] Start: 08-12-2023 End: 08-12-2023 ambulatory [facility] Start: 06-16-2023 End: 06-16-2023 Emergency department patient visit NO PCP NO PCP [facility] Start: 06-03-2023 End: 06-03-2023 ambulatory NO PCP NO PCP [facility] Start: 05-05-2023 End: 05-05-2023 ambulatory [facility] Start: 05-05-2023 Encounter for gynecological examination (general) (routine) without abnormal findings [facility] Start: 05-05-2023 End: 05-05-2023 Office outpatient visit 25 minutes Nieves Velasquez MD Work Phone: [facility] Comment on above: GA: 8w4d Start: 05-05-2023 End: 05-05-2023 Patient encounter status Nieves Velasquez MD Work Phone: [facility] Start: 05-05-2023 End: 05-05-2023 ambulatory [facility] Start: 05-05-2023 Encounter for gynecological examination (general) (routine) without abnormal findings [facility] Start: 04-16-2023 End: 04-16-2023 ambulatory [facility] Start: 04-14-2023 End: 04-14-2023 Initial care visit Lynnjanneth Deleon [employer] 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 Work Phone: [facility] Comment on above: First trimester preg bal (Primary Dx); HTN in , chronic; History of gestational diabetes in prior , currently ; Nausea/vomiting in Start: 04-14-2023 End: 04-14-2023 ambulatory LYNN Mathew [facility] Start: 03-30-2023 End: 03-31-2023 Emergency department patient visit NICOLASA TUCKER [facility] Start: 11-27-2022 End: 11-30-2022 Evaluation and management of inpatient PHYSICIAN NO [facility] Work Phone: Start: 11-27-2022 ambulatory PHYSICIAN NO [facility] ility:[facility] Start: 05-09-2022 End: 05-13-2022 Evaluation and management of inpatient PHYSICIAN NO [facility] Work Phone: Start: 12-19-2021 End: 12-20-2021 ambulatory [facility] Start: 03-17-2021 End: 03-18-[address] CATALAN LISTED REQUEST Facility: Start: 06-11-2020 End: 06-14-2020 ambulatory REFERRED SELF Facility:[facility] Start: 06-10-2020 End: 06-10-[address] PRO [place] Facility: Start: 04-15-2018 End: 04-16-2018 Patient encounter procedure VIPUL TRIPATHI [facility] Start: 04-12-2018 End: 04-14-2018 Evaluation and management of inpatient CHER Alcantar [facility] Start: 04-02-2018 Encounter for preprocedural respiratory examination CHER [facility] Start: 04-02-2018 Encounter for other preprocedural examination CHER [facility] Start: 04-02-2018 End: 04-07-2018 Patient encounter procedure CHER Alcantar [facility] Start: 12-04-2017 End: 12-04-2017 Patient encounter procedure CHER Alcantar [facility] Encounter for other preprocedural examination CHER MARAVILLA [facility] Procedures Date Procedure Procedure Detail Performing Clinician Start: 11-12-2023 ALL CBC WITH AUTO DIFF Eligio Priyanka DO Work Phone: Start: 11-10-2023 ALL BUN Eligio Fazi o DO Work Phone: Start: 11-10-2023 ALL URIC ACID Eligio Momo io DO Work Phone: Start: 11-10-2023 [facility] ALT Eligio Fazi o DO Work Phone: Start: 11-10-2023 [facility] AST Eligio Fazi o DO Work Phone: Start: 11-10-2023 [facility] CREATININE Eligio Fa zio DO Work Phone: Start: 05-05-2023 Adult depression scr eening assessment [...] MARAVILLA Start: 04-16-2018 INCENTIVE SPIROMETRY RT CHER AMRAVILLA Start: 04-16-2018 INCENTIVE SPIROMETRY RT CHER MARAVILLA [...] CHER MARAVILLA Start: 04-16-2018 DAILY WEIGHTS CHER Chávez MADISONSAL Start: 04-16-2018 INTAKE AND OUTPUT KRISTA MARAVILLA Start: 04-16-2018 INCENTIVE SPIROMETRY RT CHER MARAVILLA Start: 04-15-2018 INCENTIVE SPIROMETRY RT CHER TAIWO Start: 04-15-2018 Virus centrifuge enh ncd id imfluor stain ea CHER MARAVILLA Start: 04-15-2018 INCENTIVE SPIROMETRY RT CHER MARAVILLA Start: 04-15-2018 Assay of troponin quantitative CHER MARAVILLA Start: 04-15-2018 INCENTIVE SPIROMETRY RT CHER TAIWO Start: 04-15-2018 Creatine kinase total G ROXY TAIWO Start: 04-15-2018 Iaad ia mult step me [...] be & rev trnscr 12-25 target CHER TAIWO Start: 04-15-2018 INCENTIVE SPIROMETRY RT CHER MARAVILLA Start: 04-15-2018 Assay of troponin quantitative CHER MARAVILLA Start: 04-15-2018 Culture bacterial bl ood aerobic w/id isolates CHER MARAVILLA Start: 04-15-2018 Gonadotropin chorion ic qualitative CHER MARAVILLA Start: 04-15-2018 Ecg routine ecg w/le ast 12 lds w/i&r CHER MARAVLILA Start: 04-15-2018 EKG REPORT CHER ODELL Start: 04-15-2018 IP CONSULT TO BARIATRICS CHER MARAVILLA Start: 04-15-2018 OT EVAL AND TREAT KRISTA MARAVILLA Start: 04-15-2018 PLACE INTERMITTENT PNEUMATIC COMPRESSION DEVICE CHER MARAVILLA Start: 04-15-2018 PT EVAL AND TREAT KRISTA MARAVILLA Start: 04-15-2018 RESPIRATORY CARE SHIRLENE LUATION ONLY CHER MARAVILLA Start: 04-15-2018 TELEMETRY MONITORING ROSEY MARAVILLA Start: 04-15-2018 VITAL SIGNS CHER ODELL Start: 04-15-2018 ENCOURAGE DEEP BREAT VICKY AND COUGHING CHER MARAVILLA Start: 04-15-2018 FULL CODE CHER ODELL Start: 04-15-2018 INITIATE OXYGEN THER APY PROTOCOL CHERKAVITHA MARAVILLA Start: 04-15-2018 INTAKE AND OUTPUT KRISTA MARAVILLA Start: 04-15-2018 IP CONSULT TO PULMONOLOGY CHER TAIWO Start: 04-15-2018 NOTIFY PHYSICIAN (SPECIFY) CHER MARAVILLA Start: 04-15-2018 PATIENT STATUS (DIRECT) CHER TAIWO Start: 04-14-2018 NEBULIZER TX INTERMITTENT CHER MARAVILLA Start: 04-14-2018 PULSE OXIMETRY, CONTINUOUS CHER MARAVILLA Start: 04-14-2018 Radex esophagus CHER MARAVILLA Start: 04-14-2018 INITIATE OXYGEN THER APY PROTOCOL CHER MARAVILLA Start: 04-14-2018 NASAL CANNULA OXYGEN ROSEY MARAVILLA Start: 04-14-2018 NEBULIZER TX INTERMITTENT CHER MARAVILLA Start: 04-14-2018 PULSE OXIMETRY, CONTINUOUS CHER MARAVILLA Start: 04-14-2018 DISCHARGE PATIENT KRISTA MARAVILLA Start: 04-14-2018 PULSE OXIMETRY, CONTINUOUS [...] PULSE OXIMETRY, CONTINUOUS CHER MARAVILLA Start: 04-13-2018 INTAKE AND OUTPUT KRISTA MARAVILLA Start: 04-13-2018 PULSE OXIMETRY, CONTINUOUS CHER [...] CHER MARAVILLA Start: 04-02-2018 Prothrombin time TRACEE MARAVLILA Start: 04-02-2018 Thromboplastin time partial plasma/whole blood [...] (3 - Td or Tdap) [facility] Start: 05-04-2024 Adult BMI Screening Adult BMI Screen ing [facility] Start: 05-04-2024 Depression Screening Depression Scre ening [facility] Start: 05-04-2024 Tobacco Screening Tobacco Screening [facility] Start: 04-13-2024 Tobacco Screening Tobacco Screening [facility] Start: 03-30-2024 Adult BMI Screening Adult BMI Screen ing [facility] Start: 11-11-2023 End: 11-11-2023 Patient encounter procedure 11/11/2023 11:10 AM EDT Routine [facility] [address] [place] [address] Eligio Mathew, DO [address] [place] [address] [facility] Start: 06-03-2023 End: 06-03-2023 Patient encounter procedure 06/03/2023 3:15 PM EDT Routine [facility] [address] [place] [id number] [facility] Start: 05-05-2023 End: 05-05-2023 ambulatory 05/05/2023 3:00 PM EDT Initial [facility] [address] [place] [id number] Nieves Velasquez MD [address] [place] [address] [facility] Start: 04-16-2023 Subsequent hospital visit by physician 04/16/2023 1:30 PM EST Hospital Encounter [facility] [address] [place] [phone] Lynn Deleon, [employer] 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 [address] [place] [address] [facility] Start: 04-14-2023 End: 04-13-2024 US transvaginal for Ultrasound less than 14 weeks with transvaginal Imaging Routine First trimester Expected: 04/14/2023, Expires: 04/13/2024 [facility] Work Phone: Comment on above: Expected: 04/14/2023 , Expires: 04/13/2024 Start: 11-30-[address] [facility] Start: 11-28-[address] [facility] Start: 11-28-[address] [facility] Start: 11-27-2022 Referral to [employer] [facility] Start: 11-27-2022 Hospital admission [facility] Start: 11-27-[address] [facility] Start: 11-27-2022 Bacteria identified in Urine by Culture [facility] Start: 10-10-2022 Influenza vaccination Influenza Vacc ine [facility] Start: 05-13-[address] [facility] Start: 05-09-2022 Hospital admission [facility] Start: 04-20-2016 Screening for malign ant neoplasm of cervix Pap Smear [facility] Start: 04-20-2013 Adult BMI Follow Up Plan Adult BMI Follow Up Plan [facility] Start: 2007 [facility] [facility] End: 04-13-2024 Bacteria identified in Urine by Culture Urine Culture Microbiology Routine First trimester 1 Occurrences starting 04/14/2023 until 04/13/2024 [facility] [employer] [employer] [facility] Comment on above: 1 Occurrences starti ng 04/14/2023 until 04/13/2024 End: 04-13-2024 CBC panel - Blood by Automated count CBC without diff Lab Routine First trimester 1 Occurrences starting 04/14/2023 until 04/13/2024 [facility] above: 1 Occurrences starti ng 04/14/2023 until 04/13/2024 End: 05-04-2024 Chlamydia/GC by PCR ThinPrep fluid Chlamydia/GC by PCR ThinPrep fluid Microbiology Routine Screening for STD (sexually transmitted disease) 1 Occurrences starting 05/05/2023 until 05/04/2024 [facility] Comment on above: 1 Occurrences starti ng 05/05/2023 until 05/04/2024 End: 04-13-2024 Comprehensive metabolic 2000 panel - Serum or Plasma Comprehensive metabolic panel Lab Routine First trimester HTN in , chronic 1 Occurrences starting 04/14/2023 until 04/13/2024 [facility] above: 1 Occurrences starti ng 04/14/2023 until 04/13/2024 End: 04-13-2024 Creatinine clearance Creatinine clearance Lab Routine First trimester HTN in , chronic 1 Occurrences starting 04/14/2023 until 04/13/2024 [facility] Comment on above: 1 Occurrences starti ng 04/14/2023 until 04/13/2024 End: 05-04-2024 Cytopathology procedure, preparation of smear, genital source Pap Smear Pathology and Cytology Routine Smear, vaginal, as part of routine gynecological examination 1 Occurrences starting 05/05/2023 until 05/04/2024 [employer] Work Phone: Comment on above: 1 Occurrences starti ng 05/05/2023 until 05/04/2024 End: 04-13-2024 Drug Screen, Urine Drug Screen, Urine Lab Routine First trimester 1 Occurrences starting 04/14/2023 until 04/13/2024 [facility] Comment on above: 1 Occurrences starti ng 04/14/2023 until 04/13/2024 End: 04-13-2024 Glucose 1h post 50g load Glucose 1h post 50g load Lab Routine First trimester History of gestational diabetes in prior , currently 1 Occurrences starting 04/14/2023 until 04/13/2024 [facility] Comment on above: 1 Occurrences starti ng 04/14/2023 until 04/13/2024 End: 04-13-2024 Hepatitis panel, acute Hepatitis panel, acute Lab Routine First trimester 1 Occurrences starting 04/14/2023 until 04/13/2024 [facility] Comment on above: 1 Occurrences starti ng 04/14/2023 until 04/13/2024 End: 04-13-2024 HIV 1&2 AB/AG Screen (P24 AG) HIV 1&2 AB/AG Screen (P24 AG) Lab Routine First trimester 1 Occurrences starting 04/14/2023 until 04/13/2024 [facility] Comment on above: 1 Occurrences starti ng 04/14/2023 until 04/13/2024 End: 04-13-2024 LDH LDH Lab Routine First trimester HTN in , chronic 1 Occurrences starting 04/14/2023 until 04/13/2024 [facility] Comment on above: 1 Occurrences starti ng 04/14/2023 until 04/13/2024 Patient Education Depression, Ad ult (DC) [facility] Behavioral Health DC Instructions [facility] Work Phone: Patient referral [facility] Work Phone: End: 04-13-2024 Rubella IGG immune status Rubella IGG immune status Lab Routine First trimester 1 Occurrences starting 04/14/2023 until 04/13/2024 [facility] Comment on above: 1 Occurrences starti ng 04/14/2023 until 04/13/2024 End: 04-13-2024 Syphilis Total(Unknown Syphilis Status) Syphilis Total(Unknown Syphilis Status) Lab Routine First trimester 1 Occurrences starting 04/14/2023 until 04/13/2024 [facility] Comment on above: 1 Occurrences starti ng 04/14/2023 until 04/13/2024 End: 04-13-2024 Type and screen Type and screen Blood Bank Routine First trimester 1 Occurrences starting 04/14/2023 until 04/13/2024 [facility] Comment on above: 1 Occurrences starti ng 04/14/2023 until 04/13/2024 End: 04-13-2024 Urate [Mass/volume] in Serum or Plasma Uric acid Lab Routine First trimester HTN in , chronic 1 Occurrences starting 04/14/2023 until 04/13/2024 [facility] Comment on above: 1 Occurrences starti ng 04/14/2023 until 04/13/2024 End: 04-13-2024 Urinalysis Urinalysis Lab Routine First trimester 1 Occurrences starting 04/14/2023 until 04/13/2024 [facility] Comment on above: 1 Occurrences starti ng 04/14/2023 until 04/13/2024 End: 04-13-2024 Urine protein creatinine ratio Urine protein creatinine ratio Lab Routine First trimester HTN in , chronic 1 Occurrences starting 04/14/2023 until 04/13/2024 [facility] Comment on above: 1 Occurrences starti ng 04/14/2023 until 04/13/2024 End: 04-13-2024 Varicella zoster antibody, IgG Varicella zoster antibody, IgG Lab Routine First trimester 1 Occurrences starting 04/14/2023 until 04/13/2024 [facility] Comment on above: 1 Occurrences starti ng 04/14/2023 until 04/13/2024 Immunizations Immunization Date Immunization Notes Care Provider Gretel grissom 12-21-2020 tetanus toxoid, redu lucy diphtheria toxoid, and acellular pertussis vaccine, adsorbed PHYSICIAN NO [facility] 09-02-2019 tetanus toxoid, redu lucy diphtheria toxoid, and acellular pertussis vaccine, adsorbed PHYSICIAN NO [facility] Payers Date Payer Category Payer Self-pay [id number] 2022 Medicaid [id number] 2021 Medicaid [id number] 2018 Unknown [id number] 2017 Private Health Insurance [id number] 1995 Unknown [id number] 2.16.840.1.980326.3.579.2.175 1995 Unknown [id number] 2.16.840.1.464322.3.579.2.175 1995 Unknown [id number] 2.16.840.1.852558.3.579.2.175 1995 Unknown [id number] 2.16.840.1.763182.3.579.2.175 1995 Unknown [id number] 2.16.840.1.396329.3.579.2.175 1995 Unknown [id number] 2.16.840.1.787026.3.579.2.593 1995 Unknown [id number] 2.16.840.1.092735.3.579.2.593 1995 Unknown [id number] 2.16.840.1.992030.3.579.2.647 1995 Unknown [id number] 2.16.840.1.275567.3.579.2.128 6 1995 Unknown [id number] 2.16.840.1.026660.3.579.2.128 6 1995 Unknown [id number] 2.16.840.1.050871.3.579.2.128 6 1995 Unknown [id number] 2.16.840.1.408929.3.579.2.128 6 1995 Unknown [id number] 2.16.840.1.471006.3.579.2.128 6 1995 Unknown [id number] 2.16.840.1.982703.3.579.2.128 6 1995 Unknown [id number] 2.16.840.1.669062.3.579.2.128 6 1995 Unknown [id number] 2.16.840.1.336302.3.579.2.128 6 1995 Unknown [id number] 2.16.840.1.726725.3.579.2.128 6 1995 Unknown [id number] 2.16.840.1.991655.3.579.2.128 6 1995 Unknown [id number] 2.16.840.1.603509.3.579.2.128 6 1995 Unknown [id number] 2.16.840.1.113252.3.579.2.128 6 1995 Unknown [id number] 2.16.840.1.735502.3.579.2.125 9 1959 Self-pay [id number] 1959 Unknown [id number] Medicaid [employer] [id number] Unknown [id number] 2.16.840.1.414455.3.579.2.531 Unknown [id number] 2.16.840.1.507561.3.579.2.531 Unknown [id number] 2.16.840.1.861259.3.579.2.531 Social History Date Type Detail Facility Start: 05-09-2022 End: 11-27-2022 Tobacco smoking status [facility] Never smoked tobacco (finding) [facility] Start: 1995 Sex Assigned At Female F [facility] Start: 11-28-2022 End: 03-24-2023 Tobacco smoking status MNIS Smoker (finding) [facility] Start: 04-14-2023 Tobacco smoking stat us MNIS Ex-smoker [facility] End: 03-24-2023 History of tobacco use Cigarette Smoker [facility] Start: 03-22-2020 End: 04-14-2023 Cigarettes smoked current (pack per day) - Reported 0.3 [facility] Start: 04-14-2023 Tobacco use and exposure Smokeless tobacco non-user [facility] Start: 04-14-2023 End: 05-05-2023 Alcohol intake Current non-drinker of alcohol (finding) [facility] Start: 03-22-2020 End: 04-14-2023 Tobacco use panel [facility] Childcare Unknown [facility] Start: 04-14-2023 Alcohol Comment SOBER 3 MONTHS [facility] Start: 1995 Sex Assigned At Not on file P [facility] How hard is it for y ou to pay for the very basics like food, housing, medical care, and heating Somewhat hard [facility] Start: 03-20-2023 [facility] Tobacco smoking stat NHIS Tobacco smoking consumption unknown [facility] Goals Date Patient Goal Desired Activity /State Functional Status Date Assessment Result Facility 11-30-2022 Functional status Patient at Baseline [facility] Work Phone: 05-13-2022 Functional status Patient at Baseline [facility] Work Phone: Mental Status Date Assessment Result Facility 11-30-2022 Cognitive function Cognitive Sta tus Patient at Baseline [facility] Work Phone: 05-13-2022 Cognitive function Cognitive Sta tus Patient at Baseline [facility] Work Phone: Clinical Notes 06-14-2020 to 05-05-2023 Nieves Velasquez MD - 05/05/2023 3:00 PM [facility] - 04/14/2023 1:45 PM ESTVerenice Justice LPN - 04/14/2023 1:45 PM ESTAddendum Note - [facility]/14[facility]23 1:45 PM EST Note Date & Type Note Facility 05-05-2023 History of Presen t illness Narrative Gynecoid pelvis PH baseline labs within normal limits All questions answered No recent concerns documented in this encounter [facility] 04-14-2023 History of Presen t illness Narrative OB Intake Video Visit 27 y.o. at unknown gestation contacted through [employer] for OB intake video visit. verified and verbal consent obtained for video visit. Patient and provider both currently located in the [facility]. This was a planned . FOB involved [...] hx alcohol abuse. 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 Discussed testing. Pt declines all. The patient reports that there is not domestic violence in her life. Discussed exercise, diet and weight gain. Current BMI 28. Discussed smoking, alcohol use and drug use. Quit vaping / smoking 3 weeks ago, sober from alcohol 3 months. Discussed early danger signs and when/how to notify provider. Reviewed CNM / COMMUNITY LIAISON care, collaboration & referral to [facility] as needed. Reviewed course of care. Discussed CDC recommendation for exclusive for the first 6 months. Patient has not been covid vaccinated. Discussed recommendations in . Patient is taking an OTC vitamin. Will offer flu shot in the office. All questions answered. Educational materials provided through [employer]. Ultrasound and labs ordered. Appointment scheduled for initial OB visit with provider on 05/05/23. MARISOL Mabry 04/14/23 7412 [id number]. Chronic HTN with no meds or PCP-baseline labs ordered. HX GDMA1-EARLY 1 HR GTT. Last pap was 3 years negative. Pt declined genetic testing. Stopped tobacco use and vaping 3 weeks ago.marino from alcohol for 3 months. documented in this encounter [facility] 04-14-2023 Miscellaneous Notes Addended by: LYNN DELEON on: 04/14/2023 03:15 PM Modules accepted: Orders documented in this encounter [facility] 04-14-2023 Note Addended by: LYNN DELEON on: 04/14/2023 03:15 PM Modules accepted: Orders [facility] 11-30-2022 Discharge summary Note Date/Time November 30, 2022 10:14am [facility] [address] [place] [address] Discharge Summary Signed Patient: Antoinette Recio MR#: [id number] : 1995 Acct:[id number] Age/Sex: 27 / F Adm Date: 3 Loc: Room: [address] [place] [address]: Dar Nation MD Copies to: [...] Instructions: Important Contact Information You can call [facility] at [phone] any time day or night if you have emergent questions or question regarding discharge instructions. If at any time you are feeling an increase inyour psychiatric symptoms, call your physician or behavioral healthcare provider. If any time you have thoughts of harming yourself or others contact one of the following: Call (available 01/09) Crisis Text Line (available 01/09) text 4HOPE to [phone] [facility] (available 8 a.m. Midnight) call [phone] ([phone]) Prescriptions: New venlafaxine 75 mg Capsule,Extended Release [...] signed by Dar Nation MD> 11/30/22 1016 [facility] Work Phone: 1(925) 836-634210-22-2023 Hospital Discharge instructions Additional Instructions Important Contact Information You can call [facility] at [phone] any time day or night if you have emergent questions or question regarding discharge instructions. If at any time you are feeling an increase in your psychiatric symptoms, call your physician or behavioral healthcare provider. If any time you have thoughts of harming yourself or others contact one of the following: Call (available 01/09) Crisis Text Line (available 01/09) text 4HOPE to [phone] [facility] (available 8 a.m. Midnight) call [phone] ([phone]) [facility] Work Phone: 1(535) 913-270110-21-2023 Progress note Author Dar Nation [facility] November 29, 2022 11:21am Note Date/Time November 29, 2022 1 1:22am [facility] [address] [place] [address] Psychiatry Progress Note Signed Patient: Antoinette Recio MR#: [id number] : 1995 Acct:[id number] Age/Sex: 27 / F Adm Date: 3 Loc: 1S Room: [address] [place] [address] Type : ADM IN Attending Dr: Dar [...] By: <Electronically signed by Dar Nation MD> 11/29/221120 [facility] Work Phone: 1(929) 883-143810-20-2023 History and physical note Author Dar Nation [facility] November 28, 2022 11:45am Note Date/Time November 28, 2022 1 1:45am [facility] [address] [place] [address] Psychiatry H&P Signed Patient: Antoinette Recio MR#: [id number] : 1995 Acct:[id number] Age/Sex: 27 / F Adm Date: 3 Loc: Room: [address] [place] [address] Type: ADM IN Attending Dr: Dar Nation [...] homicidality, reported suicidality Insight: fair Judgment: fair [facility] Medical History Clavicle fracture Miscarriage Surgical [...] Turbid A Urine pH 5.0 Ur Specific [place] 1.023 Urine Protein Trace H Urine Glucose [...] alternatives explained Documented By: Dar Nation MD 11/28/221140 Signed By: <Electronically signed by Dar Nation MD> 11/28/22 9367 [facility] Work Phone: 1(740) 714-653804-04-2023 Discharge summary Author Dar Nation [facility] May 13, 2022 12:29pm Note Date/Time May 13, 2022 12:2 9pm [facility] [address] [place] [address] Discharge Summary Signed Patient: Antoinette Recio MR#: [id number] : 1995 Acct:[id number] Age/Sex: 27 / F Adm Date: 3 Loc: Room: [address] [place] [address]: Tiana Smith MD Copies to: [...] past year Living: House with parents in [place] Employment: None Patient was treated with Effexor. [...] No activity restrictions. Instructions: Depression, Adult (DC), [facility] Behavioral Health DC Instructions Prescriptions: New venlafaxine [...] 30 Days Qty: 30 0RF Follow Up: [facility] [Outside] (Please call to establish care with a primary provider for any medical needs. ) [facility] Hotline [Outside] [facility] [place] [Outside] - 05/14/22 11:30 am (manager of photography: Thursday05/14/22 @ 11:30am Intake: Thursday05/20/22 @ 12:30pm Please bring a copy of your photo ID, insurance card, and proof of household income. Nurse: 05/22/22 @ 2:00pm with Anabel. Please see attached instruction sheet Psychiatry: Thursday05/27/22 @ 9:30am with Dr. Goetz) Documented By: Dar Nation MD 05/13/228 Signed By: <Electronically signed by aDr Nation MD> 05/13/22 1229 [facility] Work Phone: 1(306) 114-153704-03-2023 Progress note Author Dar Nation [facility] May 12, 2022 3:21pm Note Date/Time May 12, 2022 3:21 pm [facility] [address] [place] [address] Psychiatry Progress Note Signed Patient: Antoinette Recio MR#: [id number] : 1995 Acct:[id number] Age/Sex: 27 / F Adm Date: 3 Loc: Room: [address] [place] [address] Type : ADM IN Attending Dr: Tiana [...] signed by Dar Nation MD> 05/12/22 1521 [facility] Work Phone: 1(459) 928-937604-02-2023 Progress note Author Ji anderson [facility] May 11, 2022 8:50am Note Date/Time May 11, 2022 8:49 am [facility] [address] [place] [address] Psychiatry Progress Note Signed Patient: Antoinette Recio MR#: [id number] : 1995 Acct:[id number] Age/Sex: 27 / F Adm Date: 3 Loc: 1S Room: [address] [place] [address] Type : ADM IN Attending Dr: Tiana Smith MD Copies to: ~ Date of Service: 05/11/2022 Subjective Subjective Narrative: Overnight: Patient was trying the unit doors trying to get out.? She was also starting to get mean.? She stated to this typewriters functional tester, get out of my face, leave me [...] and laid down on the bed.? This typewriters functional tester gave report to the Special Care Unit nurse and then this typewriters functional tester collected the patient's belongings and took them [...] explained Documented By: Ji Smith MD 3 [id number] Signed By: <Electronically signed by Ji Smith MD> 05/11/22 0850 [facility] Work Phone: 1(193) 567-388604-01-2023 Progress note Author Ji anderson [facility] May 10, 2022 5:02pm Note Date/Time May 10, 2022 10:2 5am [facility] [address] [place] [address] Psychiatry Progress Note Signed with Romaineenda Patient: Antoinette Recio MR#: [id number] : 1995 Acct:[id number] Age/Sex: 27 / F Adm Date: 3 Loc: 1S Room: [address] [place] [address] Type : ADM IN Attending Dr: Tiana [...] signed by Ji Smith MD> 05/10/22 1025 [facility] Work Phone: 1(793) 283-630603-31-2023 History and physical note Author Ji anderson [facility] May 09, 2022 12:28pm Note Date/Time May 09, 2022 12: 28pm [facility] [address] [place] [address] Psychiatry H&P Signed Patient: Antoinette Recio MR#: [id number] : 1995 Acct:[id number] Age/Sex: 27 / F Adm Date: 3 Loc: Room: [address] [place] [address] Type: ADM IN Attending Dr: Tiana Smith [...] past year Living: House with parents in [place] Employment: None Review of symptoms: Constitutional: Denies [...] Appearance Clear Urine pH 5.5 Ur Specific [place] 1.013 Urine Protein 30 H Urine Glucose [...] signed by Ji Smith MD> 05/09/22 1228 [facility] Work Phone: 1(280) 173-471905-07-2021 Note [id number]#1.00CD:[address] [place] [address] 06-14-2020 [id number]:[address] [place], [place] [address]Evaluation note* Diagnosis Onset Date Resolution Status Suicidal ideation acute [facility] Work Phone: Evaluation note* Diagnosis Onset Date Resolution Status Alcohol use disorder acute Major depressive disorder, recurrent, moderate acute Suicidal ideation acute [facility] Work Phone: Evaluation note* Diagnosis Onset Date Resolution Status Suicidal ideation acute Urinary tract infection acut e [facility] Work Phone: Evaluation note* Diagnosis Onset Date Resolution Status Alcohol use disorder acute Major depressive disorder, recurrent, moderate acute Suicidal ideation acute Urinary tract infection acut e [facility] Work Phone: Evaluation note* Diagnosis First [...] disease) [facility] assessment information available [facility] Work Phone: History and physical note Author Ji anderson [facility] May 09, 2022 12:28pm Note Date/Time May 09, 2022 12: 28pm [facility] [address] [place] [address] Psychiatry H&P Signed Patient: Antoinette Recio MR#: [id number] : 1995 Acct:[id number] Age/Sex: 27 / F Adm Date: 3 Loc: Room: 1R0896-4 Type: ADM IN Attending Dr: Tiana Smith [...] past year Living: House with parents in [place] Employment: None Review of symptoms: Constitutional: Denies [...] Appearance Clear Urine pH 5.5 Ur Specific [place] 1.013 Urine Protein 30 H Urine Glucose [...] signed by Ji Smith MD> 05/09/22 1228 [facility] Work Phone: Hospital Discharge instructions Additional Instructions Regular diet. No activity restrictions.[facility] Work Phone: Instructions* Attachments The following attachments cannot be sent through Care Everywhere. * Activity during (Niuean) * How to Adapt to Physical Changes During (Niuean) * Nutrition before and during (Niuean) * care (Niuean) documented in this encounterProPrem[facility] SystemInstructionsNot on file documented in this encounterProPremier Health [facility] SystemProgress note Author Ji anderson [facility] May 10, 2022 5:02pm Note Date/Time May 10, 2022 10:2 5am [facility] [address] [place] [address] Psychiatry Progress Note Signed with Esmer Patient: Antoinette Recio MR#: [id number] : 1995 Acct:[id number] Age/Sex: 27 / F Adm Date: 3 Loc: 1S Room: [address] [place] [address] Type : ADM IN Attending Dr: Tiana [...] signed by Ji Smith MD> 05/10/22 1025 [facility] Work Phone: Progress note Author Ji anderson [facility] May 11, 2022 8:50am Note Date/Time May 11, 2022 8:49 am [facility] [address] [place] [address] Psychiatry Progress Note Signed Patient: Antoinette Recio MR#: [id number] : 1995 Acct:[id number] Age/Sex: 27 / F Adm Date: 3 Loc: Room: [address] [place] [address] Type : ADM IN Attending Dr: Tiana Smith MD Copies to: ~ Date of Service: 05/11/2022 Subjective Subjective Narrative: Overnight: Patient was trying the unit doors trying to get out.? She was also starting to get mean.? She stated to this typewriters functional tester, get out of my face, leave me [...] and laid down on the bed.? This typewriters functional tester gave report to the Special Care Unit nurse and then this typewriters functional tester collected the patient's belongings and took them [...] signed by Ji Smith MD> 05/11/22 0850 [facility] Work Phone: Progress note Author Dar Nation [facility] May 12, 2022 3:21pm Note Date/Time May 12, 2022 3:21 pm [facility] [address] [place] [address] Psychiatry Progress Note Signed Patient: Antoinette Recio MR#: [id number] : 1995 Acct:[id number] Age/Sex: 27 / F Adm Date: 3 Loc: Room: [address] [place] [address] Type : ADM IN Attending Dr: Tiana [...] signed by Dar Nation MD> 05/12/22 1521 [facility] Work Phone: Summary Purpose Family History Relationship Condition Age at Onset Recorded Date/T tej Not Specified Suicide Unknown Advance Directives Advance Directive Response Recorded Date/ Time Advance [...] recurrent, moderate Suicidal ideation Urinary tract infection Chief Complaint Unknown Additional Source Comments INFORMATION SOURCE (unrecogn ized section and content) DATE CREATED AUTHOR 2018 [facility] DATE CREATED AUTHOR AUTHOR'S ORGANIZ ATION [facility]17/[facility] DATE CREATED AUTHOR AUTHOR'S ORGANIZ ATION 03/19/2021 [facility] DATE CREATED AUTHOR AUTHOR'S ORGANIZ ATION 06/15/2021 [facility] DATE CREATED AUTHOR AUTHOR'S ORGANIZ ATION 12/21/2021 [facility] [facility] DATE CREATED AUTHOR AUTHOR'S ORGANIZ ATION 06/05/2023 [facility] DATE CREATED AUTHOR AUTHOR'S ORGANIZ ATION 08/13/2023 [facility] DATE CREATED AUTHOR AUTHOR'S ORGANIZ ATION 09/17/2023 [facility] DATE CREATED AUTHOR AUTHOR'S ORGANIZ ATION 11/06/2023 [facility] EPIC DATE CREATED AUTHOR AUTHOR'S ORGANIZ ATION 11/15/2023 [facility] EPIC DATE CREATED AUTHOR AUTHOR'S ORGANIZ ATION 11/18/2023 [facility] Care Teams (unrecognized sec tion and content) [...] NO FAMILY Primary Care Provider Active Henry Cross DO Emergency Provider Active Tiana Smith MD Admit Provider, Attending Pr ovider Active Team Status: Active Member Role Status Dates PHYSICIAN NO FAMILY Primary Care Provider Active Henry Cross DO Emergency Provider Active Tiana Smith MD Admit Provider, Attending Pr ovider Active Group Leader Relationship Specialty Start Date End Date No Pcp, [place] [address] PCP - General Family Medicine 03/30/23 Group Leader Relationship Specialty Start Date End Date No Pcp, [place] [address] PCP - General Family Medicine 03/30/23 Team Status: Inactive Member Role Status Dates PHYSICIAN NO FAMILY Primary Care Provider Active Start: November 10, 2023 End: November 10, 2023 Eligio Mathew DO Attending Provider Active Start : November 10, 2023 End: November 10, 2023 Goals (unrecognized section and content) Goals may be documented in a n alternate sectionGoals may be documented in an alternate sectionNot on filedocumented as of this encounterNot on filedocumented as of this encounterGoals may be documented in an alternate section Reason for Visit (unrecogniz ed section and [...] BE BASED ON THE PRIMARY CLINICAL RECORDS. [facility]endorse [facility]. provides no warranty or guarantee of the accuracy or completeness of information in this document.
[2023-11-25] MEDS: 0.9 % SODIUM CHLORIDE 1,000 ML 1000 ML IV (17:35)
[2023-11-25 17:48] LABS: Basophils Absolute Auto 0.1 10^3/uL (0.0-0.1); Basophils Percent Auto 1.3 % (0.2-2.0); Eosinophils Percent Auto 0.6 % (0.9-7.0); Hematocrit 32.8 % (36.0-48.0); Hemoglobin 10.1 g/dL (12.0-16.0); Immature Granulocytes Abs Auto 0.02 10^3/uL (0.00-0.03); Immature Granulocytes Pct Auto 0.3 % (0.0-0.5); Lymphocytes Absolute Auto 1.2 10^3/uL (1.2-3.8); Lymphocytes Percent Auto 17.5 % (20.5-60.0); Mean Corpuscular HGB Conc 30.8 g/dL (29.9-35.2); Mean Corpuscular Hemoglobin 25.8 pg (26.7-34.0); Mean Corpuscular Volume 83.7 fL (81.0-99.0); Mean Platelet Volume 8.2 fL (9.5-13.5); Monocytes Absolute Auto 0.2 10^3/uL (0.3-0.8); Monocytes Percent Auto 3.6 % (1.7-12.0); Neutrophils Absolute Auto 5.1 10^3/uL (1.4-6.5); Neutrophils Percent Auto 76.7 % (43.0-75.0); Platelet Count 421 10^3/uL (150-450); Red Blood Count 3.92 10^6/uL (4.20-5.40); Red Cell Distribution Width 16.7 % (11.0-15.0); White Blood Count 6.7 10^3/uL (4.0-11.0)
--- NOTE | 2023-11-25 17:56 | ED.GENADUL1 ---
Documented by User: Kasey Barroso DO 12/02/23 07:23 HPI HPI - General Adult General Chief complaint: Arrhythmia/Palpitations Stated complaint: chest pain Time Seen by Provider: 11/25/23 17:17 Source: patient Mode of arrival: walk-in History of Present Illness HPI narrative: Patient presents to ED complaining of chest pain. She apparently called EMS for chest pain and feeling like her heart was pounding. When they arrived they said she was in SVT. They did vagal maneuvers and her heart rate came down. Upon arrival her heart rate was around 118. She reports that she had gone outside for a walk and was trying to just get away because she has been feeling overwhelmed with the kids at home. She also told me that she was 6 weeks but when I look at her delivery note here she actually delivered on November 10 which was only 2 weeks ago. She was hypertensive when she arrived and she was admitted in the recent past for preeclampsia, headache with high blood pressure. Patient admits to using mushrooms and marijuana prior to arrival. Patient states this is not her first but she does not remember how many kids she has at home. She does not remember if she has had depression with the other children either. She told me that she was suicidal but she denied it when the nurse asked. She does not have an active plan but she does feel like she needs help and wants help and wants to talk to somebody about the depression. She does also have Suboxone which was prescribed to her. She is lethargic and answer some questions appropriately but other times has difficulty recalling the correct information. According to Dr. Mathew's note patient had a spontaneous vaginal delivery with no acute complications. Related Data Home Medications ?Medication ?Instructions ?Recorded ?Confirmed bupropion HCl 150 mg 24 hr tablet, 150 mg PO DAILY 11/07/23 11/10/23 extended release magnesium oxide 400 mg (241.3 mg 400 mg 11/07/23 magnesium) tablet naloxone 4 mg/actuation nasal spray 1 spray intranasal 11/07/23 Allergies Allergy/AdvReac Type Severity Reaction Status Date / Time erythromycin base Allergy Anaphylaxis Verified 11/07/23 19:07 Opioid HPI Opioid Management Most Recent Opioid Data: Last Pain Scale 5 11/13/23 08:27 11/13/23 Urine Cannabinoids Positive (.) A 10/18/23 16:24 10/18/23 Ur Phencyclidine Scrn Negative (NEGATIVE) 11/25/23 20:42 11/25/23 Review of Systems ROS Status of ROS 10 or more systems reviewed and unremarkable except as noted in history and below [facility] Medical History (Updated 11/25/23 @ 22:04 by Davis Sagastume MD) Hypertension ?I10 - Essential (primary) hypertension (ICD-10) Headache in ?O26.899 - Other specified related conditions, unspecified trimester (ICD-10) ?R51.9 - Headache, unspecified (ICD-10) Pre-eclampsia ?O14.90 - Unspecified pre-eclampsia, unspecified trimester (ICD-10) Normal vaginal delivery ?O80 - Encounter for full-term uncomplicated delivery (ICD-10) Family History (Updated 11/10/23 @ 20:02 by Jose Cruz) Mother Family history of hypertension Other Family history of cancer Family history of diabetes mellitus Family history of myocardial infarction Family history of stroke Social History Little interest or pleasure in doing things: not at all Feeling down, depressed, or hopeless: not at all Exam Narrative Exam Narrative: Time Seen: [] Vital Signs: [Per nurse's notes.] Hypertensive General: [Alert] Skin: [Warm, dry, no rash.] Head: [Normocephalic, atraumatic.] Neck: [Supple, trachea midline.] Eye: [Pupils are equal, round and reactive to light, extraocular movements are intact, normal conjunctiva.] Ears, nose, mouth and throat: oral mucosa moist. Cardiovascular: Tachycardia, no murmur.] Respiratory: [Lungs are clear to auscultation, respirations are non-labored, breath sounds are equal.] Chest wall: [No tenderness, no deformity.] Gastrointestinal: [Soft, nontender, non distended, normal bowel sounds.] MSK: 5 out of 5 muscle strength x 4 extremities no calf pain or edema Lymphatics: [No lymphadenopathy.] Psychiatric: [Cooperative, lethargic, suicidal, depressed Neurological: [Alert and oriented to person, place, time, and situation, no focal neurological deficit observed.] Constitutional Vital Signs, click to edit/add: Last Vital Signs Temp 98.4 F 11/25/23 17:16 Pulse 99 H 11/26/23 03:27 Resp 20 11/26/23 03:27 BP 140/0 L 11/26/23 03:27 Pulse Ox 96 11/26/23 03:27 O2 Del Method Room Air 11/26/23 03:27 Course Vital Signs Vital signs: Vital Signs Temperature 98.4 F 11/25/23 17:16 Pulse Rate 119 H 11/25/23 17:16 Respiratory Rate 20 11/25/23 17:16 Blood Pressure 160/90 H 11/25/23 17:16 Pulse Oximetry 98 11/25/23 17:16 Oxygen Delivery Method Room Air 11/25/23 17:16 Temperature 98.4 F 11/25/23 17:16 Pulse Rate 99 H 11/26/23 03:27 Respiratory Rate 20 11/26/23 03:27 Blood Pressure 140/0 L 11/26/23 03:27 Pulse Oximetry 96 11/26/23 03:27 Oxygen Delivery Method Room Air 11/26/23 03:27 Medical Decision Making MDM Narrative Medical decision making narrative: Patient was hypertensive on arrival. I called and spoke to Dr. Mathew about the patient's findings including the hypertension and suicidal ideation with depression. He states she would be better served at a larger facility where they can consult psychiatric care inpatient as well as manage the blood pressure. The patient is agreeable with admission. I spoke to [facility] and they do not have inpatient psych although they do have inpatient OB, their psychiatric care is at [facility] who does not have inpatient OB. I then called Nivia who will be calling me back with the hospitalist. Differential Diagnosis Differential Diagnosis: A clamp Jesi, preeclampsia, suicidal ideation, depression, multidrug abuse Lab Data Labs: Lab Results 11/25/23 11/25/23 Range/Units 17:35 20:42 WBC 6.7 (4.0-11.0) 10^3/uL RBC 3.92 L (4.20-5.40) 10^6/uL Hgb 10.1 L (12.0-16.0) g/dL Hct 32.8 L (36.0-48.0) % MCV 83.7 (81.0-99.0) fL MCH 25.8 L (26.7-34.0) pg MCHC 30.8 (29.9-35.2) g/dL RDW 16.7 H (11.0-15.0) % Plt Count 421 (150-450) 10^3/uL MPV 8.2 L (9.5-13.5) fL Neut % (Auto) 76.7 H (43.0-75.0) % Lymph % (Auto) 17.5 L (20.5-60.0) % [place] % (Auto) 3.6 (1.7-12.0) % Eos % (Auto) 0.6 L (0.9-7.0) % Baso % (Auto) 1.3 (0.2-2.0) % Neut # (Auto) 5.1 (1.4-6.5) 10^3/uL Lymph # (Auto) 1.2 (1.2-3.8) 10^3/uL [place] # (Auto) 0.2 L (0.3-0.8) 10^3/uL Eos # (Auto) 0.0 (0.0-0.7) 10^3/uL Baso # (Auto) 0.1 (0.0-0.1) 10^3/uL Abs Immat Gran (auto) 0.02 (0.00-0.03) 10^3/uL Imm/Tot Granulo (auto) 0.3 (0.0-0.5) % Sodium 140 (136-145) mmol/L Potassium 3.5 (3.5-5.1) mmol/L Chloride 101 (98-107) mmol/L Carbon Dioxide 21.4 (21.0-32.0) mmol/L Anion Gap 21.1 BUN 5.0 L (7.0-18.0) mg/dL Creatinine 0.78 (0.55-1.02) mg/dL Est GFR ( Amer) >60 (>=60 mL/min/1.73m^2) Est GFR (Non-Af Amer) >60 (>=60 mL/min/1.73m^2) BUN/Creatinine Ratio 6.4 Glucose 94 (74-106) mg/dL Calcium 9.0 (8.5-10.1) mg/dL Magnesium 2.0 (1.8-2.4) mg/dL Total Bilirubin 0.5 (0.2-1.0) mg/dL AST 36 (15-37) U/L ALT 26 (14-59) U/L Alkaline Phosphatase 119 H (46-116) U/L Troponin I High Sens <4.0 L (4.0-51.3) pg/mL Total Protein 7.6 (6.4-8.2) g/dL Albumin 3.5 (3.4-5.0) g/dL Globulin 4.1 g/dL Albumin/Globulin Ratio 0.9 Urine Opiates Screen Negative (NEGATIVE) Ur Buprenorphine Scrn Negative (NEGATIVE) Ur Oxycodone Screen Negative (NEGATIVE) Urine Methadone Screen Negative (NEGATIVE) Ur Barbiturates Screen Negative (NEGATIVE) U Tricyclic Antidepress Negative (NEGATIVE) Ur Phencyclidine Scrn Negative (NEGATIVE) Ur Amphetamines Screen Negative (NEGATIVE) U Methamphetamines Scrn Negative (NEGATIVE) U Benzodiazepines Scrn Negative (NEGATIVE) Urine Cocaine Screen Negative (NEGATIVE) U Cannabinoids Screen Positive A (NEGATIVE) Ethanol Quant 133 mg/dL ECG Data Attestation: I personally reviewed and interpreted this ECG as follows: Interpretation: EKG INTERPRETATION Time: [] 172 Rate: [] 118 Rhythm: _ [] Sinus tachycardia ST segments: _ [] No acute ST elevation or depression T waves: _ [] Ectopy: _ [] P wave/MI interval: _ [] QRS interval: _ [] QT interval: _ [] Comparison: _ [] Comparison EKG date: [] Performed by: [self] Discharge Plan Discharge Chief Complaint: Arrhythmia/Palpitations Clinical Impression: Supraventricular tachycardia, Suicidal ideation, Hypertensive urgency Patient Disposition: [facility] Discharge Date/Time: 11/26/23 03:18 Documented by User: Davis Sagastume MD 11/25/23 22:02 HPI HPI - General Adult General Chief complaint: Arrhythmia/Palpitations Stated complaint: chest pain Time Seen by Provider: 11/25/23 17:17 Related Data Home Medications ?Medication ?Instructions ?Recorded ?Confirmed bupropion HCl 150 mg 24 hr tablet, 150 mg PO DAILY 11/07/23 11/10/23 extended release magnesium oxide 400 mg (241.3 mg 400 mg 11/07/23 magnesium) tablet naloxone 4 mg/actuation nasal spray 1 spray intranasal 11/07/23 Allergies Allergy/AdvReac Type Severity Reaction Status Date / Time erythromycin base Allergy Anaphylaxis Verified 11/07/23 19:07 Opioid HPI Opioid Management Most Recent Opioid Data: Last Pain Scale 5 11/13/23 08:27 11/13/23 Urine Cannabinoids Positive (.) A 10/18/23 16:24 10/18/23 Ur Phencyclidine Scrn Negative (NEGATIVE) 11/25/23 20:42 11/25/23 PFSH PFS Medical History (Updated 11/25/23 @ 22:04 by Davis Sagastume MD) Hypertension ?I10 - Essential (primary) hypertension (ICD-10) Headache in ?O26.899 - Other specified related conditions, unspecified trimester (ICD-10) ?R51.9 - Headache, unspecified (ICD-10) Pre-eclampsia ?O14.90 - Unspecified pre-eclampsia, unspecified trimester (ICD-10) Normal vaginal delivery ?O80 - Encounter for full-term uncomplicated delivery (ICD-10) Family History (Updated 11/10/23 @ 20:02 by Jose Cruz) Mother Family history of hypertension Other Family history of cancer Family history of diabetes mellitus Family history of myocardial infarction Family history of stroke Social History Little interest or pleasure in doing things: not at all Feeling down, depressed, or hopeless: not at all Exam Constitutional Vital Signs, click to edit/add: Last Vital Signs Temp 98.4 F 11/25/23 17:16 Pulse 99 H 11/26/23 03:27 Resp 20 11/26/23 03:27 BP 140/0 L 11/26/23 03:27 Pulse Ox 96 11/26/23 03:27 O2 Del Method Room Air 11/26/23 03:27 Course Vital Signs Vital signs: Vital Signs Temperature 98.4 F 11/25/23 17:16 Pulse Rate 119 H 11/25/23 17:16 Respiratory Rate 20 11/25/23 17:16 Blood Pressure 160/90 H 11/25/23 17:16 Pulse Oximetry 98 11/25/23 17:16 Oxygen Delivery Method Room Air 11/25/23 17:16 Temperature 98.4 F 11/25/23 17:16 Pulse Rate 99 H 11/26/23 03:27 Respiratory Rate 20 11/26/23 03:27 Blood Pressure 140/0 L 11/26/23 03:27 Pulse Oximetry 96 11/26/23 03:27 Oxygen Delivery Method Room Air 11/26/23 03:27 Medical Decision Making MDM Narrative Medical decision making narrative: Patient was hypertensive on arrival. I called and spoke to Dr. Mathew about the patient's findings including the hypertension and suicidal ideation with depression. He states she would be better served at a larger facility where they can consult psychiatric care inpatient as well as manage the blood pressure. The patient is agreeable with admission. I spoke to [facility] and they do not have inpatient psych although they do have inpatient OB, their psychiatric care is at [facility] who does not have inpatient OB. I then called Nivia who will be calling me back with the hospitalist. care transferred at change of shift. there was delay in call back. I did contact [facility] hospitalist and they were familiar with the patient's past psych history. She was accepted in transfer Lab Data Labs: Lab Results 11/25/23 11/25/23 Range/Units 17:35 20:42 WBC 6.7 (4.0-11.0) 10^3/uL RBC 3.92 L (4.20-5.40) 10^6/uL Hgb 10.1 L (12.0-16.0) g/dL Hct 32.8 L (36.0-48.0) % MCV 83.7 (81.0-99.0) fL MCH 25.8 L (26.7-34.0) pg MCHC 30.8 (29.9-35.2) g/dL RDW 16.7 H (11.0-15.0) % Plt Count 421 (150-450) 10^3/uL MPV 8.2 L (9.5-13.5) fL Neut % (Auto) 76.7 H (43.0-75.0) % Lymph % (Auto) 17.5 L (20.5-60.0) % [place] % (Auto) 3.6 (1.7-12.0) % Eos % (Auto) 0.6 L (0.9-7.0) % Baso % (Auto) 1.3 (0.2-2.0) % Neut # (Auto) 5.1 (1.4-6.5) 10^3/uL Lymph # (Auto) 1.2 (1.2-3.8) 10^3/uL [place] # (Auto) 0.2 L (0.3-0.8) 10^3/uL Eos # (Auto) 0.0 (0.0-0.7) 10^3/uL Baso # (Auto) 0.1 (0.0-0.1) 10^3/uL Abs Immat Gran (auto) 0.02 (0.00-0.03) 10^3/uL Imm/Tot Granulo (auto) 0.3 (0.0-0.5) % Sodium 140 (136-145) mmol/L Potassium 3.5 (3.5-5.1) mmol/L Chloride 101 (98-107) mmol/L Carbon Dioxide 21.4 (21.0-32.0) mmol/L Anion Gap 21.1 BUN 5.0 L (7.0-18.0) mg/dL Creatinine 0.78 (0.55-1.02) mg/dL Est GFR ( Amer) >60 (>=60 mL/min/1.73m^2) Est GFR (Non-Af Amer) >60 (>=60 mL/min/1.73m^2) BUN/Creatinine Ratio 6.4 Glucose 94 (74-106) mg/dL Calcium 9.0 (8.5-10.1) mg/dL Magnesium 2.0 (1.8-2.4) mg/dL Total Bilirubin 0.5 (0.2-1.0) mg/dL AST 36 (15-37) U/L ALT 26 (14-59) U/L Alkaline Phosphatase 119 H (46-116) U/L Troponin I High Sens <4.0 L (4.0-51.3) pg/mL Total Protein 7.6 (6.4-8.2) g/dL Albumin 3.5 (3.4-5.0) g/dL Globulin 4.1 g/dL Albumin/Globulin Ratio 0.9 Urine Opiates Screen Negative (NEGATIVE) Ur Buprenorphine Scrn Negative (NEGATIVE) Ur Oxycodone Screen Negative (NEGATIVE) Urine Methadone Screen Negative (NEGATIVE) Ur Barbiturates Screen Negative (NEGATIVE) U Tricyclic Antidepress Negative (NEGATIVE) Ur Phencyclidine Scrn Negative (NEGATIVE) Ur Amphetamines Screen Negative (NEGATIVE) U Methamphetamines Scrn Negative (NEGATIVE) U Benzodiazepines Scrn Negative (NEGATIVE) Urine Cocaine Screen Negative (NEGATIVE) U Cannabinoids Screen Positive A (NEGATIVE) Ethanol Quant 133 mg/dL Discharge Plan Discharge Chief Complaint: Arrhythmia/Palpitations Clinical Impression: Supraventricular tachycardia, Suicidal ideation, Hypertensive urgency Patient Disposition: [facility] Discharge Date/Time: 11/26/23 03:18
--- NOTE | 2023-11-25 17:57 | CT_ITS ---
The [address] [address] Patient Name: BRAYDEN RECIO MRN: [id number] date: 1995 Sex: F Assigned Patient Location: ER Current Patient Location: ER Accession/Order Number: [id number] Exam Date: 11/25/2023 18:19 Report Date: 11/25/2023 20:07 At the request of: MARISOL WING Procedure: CT angio chest EXAM: CT angio chest HISTORY: Palpitations, r/o pe COMPARISON: Chest CT 06/10/2020. TECHNIQUE: Enhanced helical acquisition obtained through the pulmonary arteries with MIP and 3-D reconstructions FINDINGS: No evidence of pulmonary arterial embolism. Ductus bump, anatomic variant. No enlarged lymph nodes within the chest. The lungs and the pleural spaces are clear. Hepatic steatosis. Prior gastric bypass. CT/CT angio chest IMPRESSION: 1. No evidence of pulmonary arterial embolism. 2. Hepatic steatosis. Electronically authenticated by: FRANCES BOYD Date: 11/25/2023 20:07
[2023-11-25 17:59] LABS: Ethanol 133 mg/dL
[2023-11-25 18:04] LABS: Alanine Aminotransferase 26 U/L (14-59); Albumin Globulin Ratio 0.9; Albumin Level 3.5 g/dL (3.4-5.0); Alkaline Phosphatase 119 U/L (46-116); Anion Gap 21.1; Aspartate Amino Transferase 36 U/L (15-37); BUN Creatinine Ratio 6.4; Bilirubin Total 0.5 mg/dL (0.2-1.0); Carbon Dioxide 21.4 mmol/L (21.0-32.0); Chloride 101 mmol/L (98-107); Estimated GFR (African America >60 (>=60 mL/min/1.73m^2); Estimated GFR (Non-African Ame >60 (>=60 mL/min/1.73m^2); Globulin 4.1 g/dL; Glucose 94 mg/dL (74-106); Potassium 3.5 mmol/L (3.5-5.1); Sodium 140 mmol/L (136-145); Total Protein 7.6 g/dL (6.4-8.2); Troponin I High Sensitivity <4.0 pg/mL (4.0-51.3)
[2023-11-25] MEDS: LABETALOL HCL 20 MG/4 ML SYRINGE 10 MG IVP (18:42)
[2023-11-25 21:04] LABS: Amphetamine Screen Urine NEGATIVE (NEGATIVE); Barbiturates Screen Urine NEGATIVE (NEGATIVE); Benzodiazepines Screen Urine NEGATIVE (NEGATIVE); Buprenorphine Screen Urine NEGATIVE (NEGATIVE); Cannabinoid Screen Urine POSITIVE (NEGATIVE); Cocaine Screen Urine NEGATIVE (NEGATIVE); Methadone Screen Urine NEGATIVE (NEGATIVE); Methamphetamines Screen Urine NEGATIVE (NEGATIVE); Opiate Screen Urine NEGATIVE (NEGATIVE); Oxycodone Screen Urine NEGATIVE (NEGATIVE); Phencyclidine Screen Urine NEGATIVE (NEGATIVE); Tricyclic Antidepressant Urine NEGATIVE (NEGATIVE)
[2023-11-25] MEDS: ACETAMINOPHEN 500 MG TABLET 1000 MG PO (21:30)
[2023-11-25] MEDS: LORAZEPAM 1 MG TABLET 2 MG PO (22:20)
[2023-11-26] VITALS (14 sets, daily range): BP systolic 140; BP diastolic 0; PULSE 67–99; O2SAT 90–100
== END 2023-11-26 03:18 | disposition short-term general hospital (02) ==
PROVIDERS: Emergency Medicine; Emergency Provider Internal Medicine; PCP Nurse Practitioner
DX: O16.5 Unspecified maternal hypertension, complicating the puerperium (principal); I16.0 Hypertensive urgency; O90.89 Other complications of the puerperium, not elsewhere classified; I47.10 Supraventricular tachycardia, unspecified; R45.851 Suicidal ideations; I16.1 Hypertensive emergency; O99.345 Other mental disorders complicating the puerperium; F53.0 Postpartum depression
CPT/HCPCS: 36415; 71275; 80053; 80307; 80320; 83735; 84484; 85025; 93005; 96374; 99285; J1920; Q9967

== ENCOUNTER 2023-12-05 12:00 | Emergency (ER) | payer OTHER, SELFPAY ==
[2023-12-05] VITALS (19 sets, daily range): BP systolic 127–142; BP diastolic 80–100; PULSE 62–97; TEMP 36.6; O2SAT 100; BMI 22.0
--- NOTE | 2023-12-05 12:11 | ECG_ITS ---
The [facility] Test Date: 2023-12-05 Pat Name: BRAYDEN RECIO Department: Room: - Gender: Female [employer]cher: : 1995 Requested By: [id number] Order Number: [id number] Reading MD: ALEXANDRA RAYMUNDO Measurements Intervals [place] Rate: 77 P: 58 TX: 136 QRS: -22 QRSD: 88 T: 35 QT: 380 QTc: 411 Interpretive Statements 1100 Sinus rhythm 1102 Sinus arrhythmia 7202 Moderate left axis deviation 9110 normal ECG Electronically Signed On 12-06-2023 7:43:03 EDT by ALEXANDRA RAYMUNDO
--- NOTE | 2023-12-05 12:11 | CT_ITS ---
The [address] [address] Patient Name: BRAYDEN RECIO MRN: [id number] date: 1995 Sex: F Assigned Patient Location: ER Current Patient Location: ER Accession/Order Number: [id number] Exam Date: 12/05/2023 13:29 Report Date: 12/05/2023 14:03 At the request of: MORGAN CHAIREZ Procedure: CT head/brain wo con EXAM: CT head/brain wo con CLINICAL INDICATION: Dizziness COMPARISON: CT head 11/10/2023. TECHNIQUE: Axial CT images of the brain were obtained without contrast. Coronal and sagittal reformats were obtained. Dose reduction techniques were achieved by using automated exposure control and/or adjustment of mA and/or kV according to patient size and/or use of iterative reconstruction technique. FINDINGS: No intracranial hemorrhage, extra-axial fluid collection, hydrocephalus, midline shift, or acute infarction. No other mass effect. Patent basal cisterns. No calvarial fracture. Normal soft tissues. Paranasal sinuses and mastoid air cells are well-aerated. Bilateral external auditory canals are patent. CT/CT head/brain wo con IMPRESSION: No acute intracranial process. No substantial change since 11/10/2023. Electronically authenticated by: MARGARITA DRUMMOND Date: 12/05/2023 14:03
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
--- OUTSIDE RECORDS SUMMARY | 2023-12-05 12:25 | XMS_ITS | CCD ---
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 Automated counOrdered By: Bret Javier on 11-26-2023 WBC corrected for nucl RBC Auto (Bld) [#/Vol] 6.5 10*3/uL 3.8-11.6 [facility] Leukocytes [#/volume] in Blo od by Automated countOrdered By: Bret Javier on 11-26-2023 WBC (Bld) [#/Vol] 6.5 10*3/uL Normal 3.8-11.6 [facility] Comment on above: Performed By: #### P TT, ETOH, MG, [id number], [id number], TSH3, PT, BMP, HEPATIC, CBC #### [facility] [address] [place] [address] Lymphocytes [#/volume] in Bl ood by Automated countOrdered By: Bret Javier on 11-26-2023 Lymphocytes (Bld) [#/Vol] 1.4 10*3/uL Normal 1.00-4.8 [facility] Comment on above: Performed By: #### P TT, ETOH, MG, [id number], [id number], TSH3, PT, BMP, HEPATIC, CBC #### [facility] [address] [place] [address] [place] Lymphocytes/100 leukocytes i n Blood by Automated countOrdered By: Bret Javier on 11-26-2023 Lymphocytes/100 WBC (Bld) 22.2 % Normal . [facility] Comment on above: Performed By: #### P TT, ETOH, MG, [id number], [id number], TSH3, PT, BMP, HEPATIC, CBC #### [place] [address] [place] MCH [Entitic mass] by Automa christelle countOrdered By: Bret Javier on 11-26-2023 MCH (RBC) [Entitic mass] 26.1 pg Normal 24.7-34.3 [facility] Comment on above: Performed By: #### P TT, ETOH, MG, [id number], [id number], TSH3, PT, BMP, HEPATIC, CBC #### [facility] [address] MCHC Auto (RBC) [Mass/Vol]Or dered By: Bret Javier on 11-26-2023 MCHC (RBC) [Mass/Vol] 32.3 g/dL 32.0-35.0 [facility] MCV [Entitic volume] by Auto mated countOrdered By: Bret Javier on 11-26-2023 MCV (RBC) [Entitic vol] 80.8 fL Normal 80-100 [facility] Comment on above: Performed By: #### P TT, ETOH, MG, [id number], [id number], TSH3, PT, BMP, HEPATIC, CBC #### [facility] [address] [place] [address] Magnesium [Mass/volume] in S phil or PlasmaOrdered By: Bret Javier on 11-26-2023 Magnesium [Mass/Vol] 1.8 mg/dL Low 1.9-2.7 [facility] Comment on above: Performed By: #### P TT, ETOH, MG, [id number], [id number], TSH3, PT, BMP, HEPATIC, CBC #### [facility] [address] [place] [address] Neutrophils [#/volume] in Bl ood by Automated countOrdered By: Bret Javier on 11-26-2023 Neutrophils (Bld) [#/Vol] 4.5 10*3/uL Normal 1.8-7.7 [facility] Comment on above: Performed By: #### P TT, ETOH, MG, [id number], [id number], TSH3, PT, BMP, HEPATIC, CBC #### [facility] [address] [place] [address] No Panel InformationOrdered By: Bret Javier on 11-26-2023 Estimated GFR (CKD-EPI) > 60.0 mL/Min [facility] Creatinine Clearance (Chem 134.58 [facility] Nucleated erythrocytes [Pres ence] in Blood by Automated countOrdered By: Bret Javier on 11-26-2023 Nucleated RBC Auto Ql (Bld) 0.0 /100{WBC} 0-0.5 [facility] Partial Thromboplastin Timeo n 11-26-2023 aPTT Coag (Bld) [Time] 28.6 s Normal 25.1-36.5 [facility] Comment on above: Result Comment: A he matocrit value greater than 55% may lead to inaccurate results in coagulation testing. Patients having hematocrit values >55% require a special collection tube for coagulation studies. Please contact the laboratory at [phone] for redraw instructions. PERFORMED BY: [place] [address] PATHOLOGIST NUT SORTER KELLIE ALVARADO M.D. Performed By: #### P TT, ETOH, MG, [id number], [id number], TSH3, PT, BMP, HEPATIC, CBC #### [facility] [address] Platelet mean volume [Entiti c volume] in Blood by Automated countOrdered By: Bret Javier on 11-26-2023 Platelet mean volume (Bld) [Entitic vol] 6.6 fL Normal 6.3-10.7 [facility] Comment on above: Performed By: #### P TT, ETOH, MG, [id number], [id number], TSH3, PT, BMP, HEPATIC, CBC #### [facility] [address] [place] [address] [place] Platelets [#/volume] in Bloo d by Automated countOrdered By: Bret Javier on 11-26-2023 Platelets (Bld) [#/Vol] 349 10*3/uL Normal 150-450 [facility] Comment on above: Performed By: #### P TT, ETOH, MG, [id number], [id number], TSH3, PT, BMP, HEPATIC, CBC #### [facility] [address] [place] [address] [facility] Potassium [Moles/volume] in Serum or PlasmaOrdered By: Bret Javier on 11-26-2023 Potassium [Moles/Vol] 3.7 mmol/L Normal 3.5-5.1 [facility] Comment on above: Performed By: #### P TT, ETOH, MG, [id number], [id number], TSH3, PT, BMP, HEPATIC, CBC #### [facility] [address] [place] [address] [place] Protein [Mass/volume] in Ser um or PlasmaOrdered By: Bret Javier on 11-26-2023 Protein [Mass/Vol] 5.8 g/dL Low 6.4-8.9 [facility] Comment on above: Performed By: #### P TT, ETOH, MG, [id number], [id number], TSH3, PT, BMP, HEPATIC, CBC #### [facility] [address] [place] [address] [place] Prothrombin time (PT)Ordered By: Bret Javier on 11-26-2023 PT Coag (PPP) [Time] 11.3 s Normal 9.0-12.9 [facility] Comment on above: A hematocrit value g reater than 55% may lead to inaccurate results in coagulation testing. Patients having hematocrit values >55% require a special collection tube for coagulation studies. Please contact the laboratory at [phone] for redraw instructions. Result Comment: A he matocrit value greater than 55% may lead to inaccurate results in coagulation testing. Patients having hematocrit values >55% require a special collection tube for coagulation studies. Please contact the laboratory at [phone] for redraw instructions. Performed By: #### P TT, ETOH, MG, [id number], [id number], TSH3, PT, BMP, HEPATIC, CBC #### [facility] [address] [place] [address] [facility] Serum globulin measurement b y calculation (mass/volume)Ordered By: Bret Javier on 11-26-2023 Globulin (S) [Mass/Vol] 2.5 g/dL [facility] Comment on above: Performed By: #### P TT, ETOH, MG, [id number], [id number], TSH3, PT, BMP, HEPATIC, CBC #### [address] Serum or plasma albumin/glob ulin mass ratioOrdered By: Bret Javier on 11-26-2023 Albumin/Globulin [Mass ratio] 1.3 {ratio} [facility] Comment on above: Performed By: #### P TT, ETOH, MG, [id number], [id number], TSH3, PT, BMP, HEPATIC, CBC #### [address] Serum or plasma anion gap de terminationOrdered By: Bret Javier on 11-26-2023 Anion gap [Moles/Vol] 12.0 mmol/L Normal 6.0-15.0 [facility] Comment on above: Performed By: #### P TT, ETOH, MG, [id number], [id number], TSH3, PT, BMP, HEPATIC, CBC #### [address] Serum or plasma non-glucuron idated bilirubin measurement (mass/volume)Ordered By: Bret Javier on 11-26-2023 Bilirubin.indirect [Mass/Vol] 0.7 mg/dL [facility] Sodium [Moles/volume] in Ser um or PlasmaOrdered By: Bret Javier on 11-26-2023 Sodium [Moles/Vol] 139 mmol/L Normal 136-145 [facility] Comment on above: Performed By: #### P TT, ETOH, MG, [id number], [id number], TSH3, PT, BMP, HEPATIC, CBC #### [address] Thyrotropin [Units/volume] i n Serum or PlasmaOrdered By: Bret Javier on 11-26-2023 TSH Qn 1.77 m[IU]/L Normal 0.45-5.33 [facility] Comment on above: Performed By: #### P TT, ETOH, MG, [id number], [id number], TSH3, PT, BMP, HEPATIC, CBC #### [facility] [address] Urea nitrogen [Mass/volume] in Serum or PlasmaOrdered By: Bret Javier on 11-26-2023 Urea nitrogen [Mass/Vol] 8 mg/dL Normal 7-25 [facility] Comment on above: Performed By: #### P TT, ETOH, MG, [id number], [id number], TSH3, PT, BMP, HEPATIC, CBC #### [facility] [address] Vit. B12/Folate Profileon Folate 8.2 ng/mL Normal >5.9 [facility] Comment on above: Result Comment: Scarlett te reference range: >5.9 ng/ml The WHO technical consultation on folate and vitamin b12 deficiencies has determined that folate concentrations less than 4 ng/ml are considered deficient. Performed By: #### P TT, ETOH, MG, [id number], [id number], TSH3, PT, BMP, HEPATIC, CBC #### [facility] [address] Vitamin B12 ser/plasOrdered By: Bret Javier on 11-26-2023 Cobalamin (Vitamin B12) [Mass/Vol] 259 pg/mL Normal 180-914 [facility] Comment on above: Performed By: #### P TT, ETOH, MG, [id number], [id number], TSH3, PT, BMP, HEPATIC, CBC #### [facility] [address] Vitamin D 25 Hydroxy Totalon 11-26-2023 Vitamin D 25 Hydroxy Total 22.8 ng/mL Low 30-100 [facility] Comment on above: Result Comment: JESSICA MIN D STATUS 25(OH)VITAMIN D RANGE (ng/mL) Deficient <20 Insufficient 20 to <30 Sufficient 30 to 100 Reference: Aye Palacios, Geremias YOUNG, et al. Evaluation,treatment, and prevention of vitamin D deficiency; an Endocrine Society clinical practice guideline. JCEM. 2010; 96(7):1911-30. PERFORMED BY: [facility] [address] [place] [address] PATHOLOGIST NUT SORTER KELLIE ALVARADO M.D. Performed By: #### P TT, ETOH, MG, [id number], [id number], TSH3, PT, BMP, HEPATIC, CBC #### [facility] [address] Vitamin D+Metabolites [Mass/ volume] in Serum or PlasmaOrdered By: Brte Javier on 11-26-2023 Vitamin D+Metabolites [Mass/Vol] 22.8 ng/mL Low 30-100 [facility] Comment on above: VITAMIN D STATUS 25( [place])VITAMIN D RANGE (ng/mL) Deficient <20 Insufficient 20 to <30Sufficient 30 to 100Reference: Aye Palacios, Geremias YOUNG, et al. Evaluation,treatment, and prevention of vitamin D deficiency; an Endocrine Society clinical practice guideline. JCEM. 2010; 96(7):1911-30. Telephone Encounteron 2023 [employer] Authentication Interface Message Text [facility] TRANSFER from [place] ED to [facility] Report given by : Dr. Sagastume Patient is a 28 year old White female with a history of pre-eclampsia, currently 2-weeks post- who initially presented to [place] ED on 11/25/23 for the complaint of suicidality while she's depressed, drinking, using mushrooms AND marijuana ; EMS felt she was in SVT, had her vagal to resolve it. BP 160/90 on arrival. Got 10 labetalol. HR is 90 NSR, BP 141/89 after labetalol. SVT was never seen in ED. Psych wants medical clearance for suicidality. Hospitalist there was concerned that if she's flipping into SVT, they have no cardiology to help. Possible post- pre-eclampsia which can occur up to 6 weeks after . For these reasons, OSH wanted tertiary transfer. Labs / Imaging: Utox +marijuana EtOH 133 WBC 6.7 Hb 10.1 Na 140, 3.5, Bicarb 21.4, creat 0.78 Plt 421 Troponin negative Patient was accepted to [facility] regular nursing floor under the care of general internal medicine service telemetry, barring any acute change in clinical status requiring escalation of level of care. Team to be assigned when bed is assigned. If the facility number was unknown or unavailable at the time of acceptance, [facility] can supply the call back number. The receiving team is responsible for calling the sending facility for provider to provider report if there has been significant delay between the time the patient was accepted and the time the bed was assigned. If there is concern for clinical stability by the receiving team they will call the PIC (physician in charge) to discuss the case. Alexis Art DO 11/25/23 8:32 PM Normal [facility] ALL CBC WITH AUTO DIFFon BASOPHILS ABSOLUTE AUTO 0.0 [facility] Basophils/100 WBC (Bld) 0.1 % Low 0.2 - 2.0 % [facility] Eosinophils/100 WBC (Bld) 0.4 % Low 0.9 - 7.0 % [facility] Erythrocyte distribution width (RBC) [Ratio] 15.6 % High 11.0 - 15.0 % [facility] Hematocrit (Bld) [Volume fraction] 23.0 % Critically low 36.0 - 48.0 % [facility] Comment on above: RESULTS CALLED TO GRIFFIN CASTELLON RN Hemoglobin (Bld) [Mass/Vol] 7.0 g/dL Low 12.0 - 16.0 g/dL [facility] IMMATURE GRANULOCYTES ABS AUTO 0.11 High [facility] Immature granulocytes/100 WBC (Bld) 0.8 % High 0.0 - 0.5 % [facility] Interpretation and review of laboratory results Abnormal [facility] LYMPHOCYTES ABSOLUTE AUTO 1.4 [facility] Lymphocytes/100 WBC (Bld) 10.2 % Low 20.5 - 60.0 % [facility] MCH (RBC) [Entitic mass] 26.0 pg Low 26.7 - 34.0 pg [facility] MCHC (RBC) [Mass/Vol] 30.4 g/dL 29.9 - 35.2 g/dL [facility] MCV (RBC) [Entitic vol] 85.5 fL 81.0 - 99.0 fL [facility] MONOCYTES ABSOLUTE AUTO 0.7 [facility] Monocytes/100 WBC (Bld) 5.4 % 1.7 - 12.0 % [facility] NEUTROPHILS ABSOLUTE AUTO 11.1 High [facility] Neutrophils/100 WBC (Bld) 83.1 % High 43.0 - 75.0 % [facility] Platelet mean volume (Bld) [Entitic vol] 9.3 fL Low 9.5 - 13.5 fL [facility] EO # 0.1 [facility] PLT 217 [facility] 2.69 [facility] 13.4 High [facility] ALL BUNon 11-10-2023 Urea nitrogen [Mass/Vol] 9.0 mg/dL 7.0 - 18.0 mg/dL [facility] ALL URIC ACIDon 11-10-2023 Interpretation and review of laboratory results Abnormal [facility] Urate [Mass/Vol] 6.1 mg/dL High 2.6 - 6.0 mg/dL [facility] Vidya 11-10-2023 ALT [Catalytic activity/Vol] 15 U/L 14 - 59 U/L [facility] Julee 11-10-2023 AST [Catalytic activity/Vol] 23 U/L 15 - 37 U/L [facility] Shaji 11-10-2023 L Specimen: [id number] Received: 11/11/23 Status: SAMI Simental Num: [id number] Spec Type: Surgical Subm Dr: Eligio Mathew Tissues: A Placenta - 3rd Trimester (Greater than 28 weeks) (PLACENTA) Procedures: HE/3, Gross/Micro L5 Age/ Patient Sex Location Account Attending Physician Antoinette Recio 28/F [facility] [id number] Eligio Mathew SPEC NUM: [id number] RECD: 11/11/23 STATUS: SOUT REQ NUM: [id number] RAVI: 11/10/23- SUBM DR: Eligio Mathew ENTERED: 11/11/[address]: Jose,Lab SPEC TYPE: Surgical DEPT: MARTINE RAMIREZ ENTERED BY: [id number] RECV BY: [id number] ORDERED: HE/3, Gross/Micro L5 ORDERED: HE/3, Gross/Micro [...] maternal surface is pink-whitlock, spongy and complete. Promotions Assistant Sales Marketing sections are as follows: A1 membranes and umbilical cord A2 central section A3 peripheral section Specimen: [id number] Received: 11/11/23 Status: SAMI Simental Num: [id number] Spec Type: Surgical Subm Dr: Eligio Mathew Tissues: A Placenta - 3rd Trimester (Greater than 28 weeks) (PLACENTA) Procedures: HE, Gross/Micro L5 Patient: Antoinette Recio [id number] (Continued) Specimen: [id number] Received: 11/11/23 (Continued) Signed (signature on file) Tab Valerio MD 11/16/23 1534 Specimen: [id number] Received: 11/11/23 Status: SAMI Simental Num: [id number] Spec Type: Surgical Subm Dr: Eligio Mathew Tissues: A Placenta - 3rd Trimester (Greater than 28 weeks) (PLACENTA) Procedures: HE/Emmanuelle, Gross/Micro L5 Patient: Antoinette Recio [id number] (Continued) Specimen: [id number] Received: 11/11/23 (Continued) CPT Codes 03663 Specimen: [id number] Received: 11/11/23 Status: SAMI Kamille Num: [id number] Spec Type: Surgical Subm Dr: Eligio Mathew Tissues: A Placenta - 3rd Trimester (Greater than 28 weeks) (PLACENTA) Procedures: NNAMDI/Emmanuelle, Rica/Talita L5 Patient: Antoinette Recio [id number] (Continued) Signed (signature on file) Tab Valerio MD 11/16/23 1534 Normal [facility] No Panel Informationon 11-09 [facility] CREATININEon 11-10-2023 Creatinine [Mass/Vol] 0.75 mg/dL 0.55 - 1.02 mg/dL [facility] GFR/1.73 sq M.predicted CKD-EPI (S/P/Bld) [Vol rate/Area] >60 >=60 mL/min/1.7 3m 2 [facility] EGFR-NON AF CONGOLESE >60 >=60 mL/min/1.7 3m 2 [facility] CBC AND AUTO DIFFon 06-16-19 ABSOLUTE BASOPHIL 0.1 X10E9/L Normal 0.0-0.2 [facility] Comment on above: Performed By: #### 2 106-3 #### [facility] ([id number]) [address] [place] [address] ABSOLUTE NEUTROPHIL 11.8 X10E9/L High 1.5-6.6 [facility] Comment on above: Performed By: #### 2 106-3 #### [facility] ([id number]) [address] [place] [address] 68195 Basophils/100 WBC (Bld) 0.4 % Normal [facility] Comment on above: Performed By: #### 2 106-3 #### [facility] ([id number]) [address] [place] [address] 14603 Eosinophils (Bld) [#/Vol] 0.1 10*3/uL Normal 0.0-0.4 [facility] Comment on above: Performed By: #### 2 106-3 #### [facility] ([id number]) [address] [place] [address] 72104 Eosinophils/100 WBC (Bld) 0.4 % Normal [facility] Comment on above: Performed By: #### 2 106-3 #### [facility] ([id number]) [address] [place] [address] 56118 Erythrocyte distribution width (RBC) [Ratio] 15.3 % High 11.5-15.0 [facility] Comment on above: Performed By: #### 2 106-3 #### [facility] ([id number]) [address] [place] [address] 90028 Hematocrit (Bld) [Volume fraction] 35.3 % Normal 35-47 [facility] Comment on above: Performed By: #### 2 106-3 #### [facility] ([id number]) [address] [place] [address] 50029 Hemoglobin (Bld) [Mass/Vol] 12.0 g/dL Normal 11.7-15.5 [facility] Comment on above: Performed By: #### 2 106-3 #### [facility] ([id number]) [address] [place] [address] 89510 Lymphocytes (Bld) [#/Vol] 1.4 10*3/uL Normal 1.0-3.5 [facility] Comment on above: Performed By: #### 2 106-3 #### [facility] ([id number]) [address] [place] [address] 16126 Lymphocytes/100 WBC (Bld) 10.3 % Normal [facility] Comment on above: Performed By: #### 2 106-3 #### [facility] ([id number]) [address] [place] [address] 89778 MCH (RBC) [Entitic mass] 28.1 pg Normal 27-34 [facility] Comment on above: Performed By: #### 2 106-3 #### [facility] ([id number]) [address] [place] [address] 97074 MCHC (RBC) [Mass/Vol] 33.9 g/dL Normal 32-36 [facility] Comment on above: Performed By: #### 2 106-3 #### [facility] ([id number]) [address] [place] [address] 54356 MCV (RBC) [Entitic vol] 83 fL Normal 80-100 [facility] Comment on above: Performed By: #### 2 106-3 #### [facility] ([id number]) [address] [place] [address] 14138 Monocytes (Bld) [#/Vol] 0.5 10*3/uL Normal 0-0.9 [facility] Comment on above: Performed By: #### 2 106-3 #### [facility] ([id number]) [address] [place] [address] 92499 Monocytes/100 WBC (Bld) 3.6 % Normal [facility] Comment on above: Performed By: #### 2 106-3 #### [facility] ([id number]) [address] [place] [address] 05183 Neutrophils/100 WBC (Bld) 85.3 % Normal [facility] Comment on above: Performed By: #### 2 106-3 #### [facility] ([id number]) [address] [place] [address] 44284 Platelet mean volume (Bld) [Entitic vol] 8.2 fL Normal 7-12 [facility] Comment on above: Performed By: #### 2 106-3 #### [facility] ([id number]) [address] [place] [address] 11585 Platelets (Bld) [#/Vol] 434 10*3/uL Normal 150-450 [facility] Comment on above: Performed By: #### 2 106-3 #### [facility] ([id number]) [address] [place] [address] 39183 RBC COUNT 4.27 X10E12/L Normal 3.80-5.20 [facility] Comment on above: Performed By: #### 2 106-3 #### [facility] ([id number]) [address] [place] [address] 22253 WBC (Bld) [#/Vol] 13.8 10*3/uL High 4.0-11.0 [facility] Comment on above: Performed By: #### 2 106-3 #### [facility] ([id number]) [address] [place] [address] 12184 COMPREHENSIVE METABOLIC PANE Shaji 06-16-2023 Albumin [Mass/Vol] 3.9 g/dL Normal 3.2-5.3 [facility] Comment on above: Performed By: #### 2 106-3 #### [facility] ([id number]) [address] [place] [address] 62678 ALP [Catalytic activity/Vol] 46 U/L Normal 39-130 [facility] Comment on above: Performed By: #### 2 106-3 #### [facility] ([id number]) [address] [place] [address] 79411 ALT [Catalytic activity/Vol] 12 U/L Normal 0-31 [facility] Comment on above: Performed By: #### 2 106-3 #### [facility] ([id number]) [address] [place] [address] 07833 Anion gap [Moles/Vol] 12 mmol/L Normal 5-15 [facility] Comment on above: Performed By: #### 2 106-3 #### [facility] ([id number]) [address] [place] [address] 08022 AST [Catalytic activity/Vol] 15 U/L Normal 0-41 [facility] Comment on above: Performed By: #### 2 106-3 #### [facility] ([id number]) [address] [place] [address] 01459 Bilirubin [Mass/Vol] 0.3 mg/dL Normal 0.3-1.2 [facility] Comment on above: Performed By: #### 2 106-3 #### [facility] ([id number]) [address] [place] [address] 64985 Calcium [Mass/Vol] 9.0 mg/dL Normal 8.5-10.5 [facility] Comment on above: Performed By: #### 2 106-3 #### [facility] ([id number]) [address] [place] [address] 16375 Chloride [Moles/Vol] 105 mmol/L Normal 98-109 [facility] Comment on above: Performed By: #### 2 106-3 #### [facility] ([id number]) [address] [place] [address] 68856 CO2 [Moles/Vol] 19 mmol/L Low 22-32 [facility] Comment on above: Performed By: #### 2 106-3 #### [facility] ([id number]) [address] [place] [address] 29298 Creatinine [Mass/Vol] 0.58 mg/dL Normal 0.40-1.00 [facility] Comment on above: Result Comment: METH OD TRACEABLE TO IDMS STANDARD Performed By: #### 2 106-3 #### [facility] ([id number]) [address] [place] [address]91 eGFR (CKD-EPI) NON-RACE DEPENDENT >90 Normal >59 [facility] Comment on above: Result Comment: Reported eGFR is based on the CKD-EPI 2020 equation that does not use a race coefficient. Performed By: #### 2 106-3 #### [facility] ([id number]) [address] [place] [address] 95225 Glucose [Mass/Vol] 87 mg/dL Normal 65-99 [facility] Comment on above: Performed By: #### 2 106-3 #### [facility] ([id number]) [address] [place] [address] 62785 Potassium [Moles/Vol] 3.6 mmol/L Normal 3.5-5.0 [facility] Comment on above: Performed By: #### 2 106-3 #### [facility] ([id number]) [address] [place] [address] 49209 Protein [Mass/Vol] 7.5 g/dL Normal 6.0-8.0 [facility] Comment on above: Performed By: #### 2 106-3 #### [facility] ([id number]) [address] [place] [address] 09691 Sodium [Moles/Vol] 136 mmol/L Normal 134-146 [facility] Comment on above: Performed By: #### 2 106-3 #### [facility] ([id number]) [address] [place] [address] 68599 Urea nitrogen [Mass/Vol] 7 mg/dL Normal 5-23 [facility] Comment on above: Performed By: #### 2 106-3 #### [facility] ([id number]) [address] [place] [address] 05989 MAGNESIUMon 06-16-2023 Magnesium [Mass/Vol] 1.7 mg/dL Low 1.8-2.6 [facility] Comment on above: Performed By: #### 2 106-3 #### [facility] ([id number]) [address] [place] [address] 23180 SARS/FLU A+B/RSV by NAAT/Mol ecularon 06-16-2023 SARS/FLU [...] operators who are performing tests using either [employer] or [employer] systems and is limited to laboratories that [...] specimen repeat. Fact Sheet for Healthcare Providers: https://www.fda.gov/media/ 087866/download Fact Sheet for Patients: https://www.fda.gov/media/ 975390/download Normal [facility] Comment on above: Performed By: #### 2 106-3 #### [facility] ([id number]) [address] [place] [address], [place] [address] URINALYSISon 06-16-2023 Bilirubin Ql (U) Negative Normal NEG [facility] Comment on above: Performed By: #### 2 106-3 #### [facility] ([id number]) [address] [place] [address] 22221 BLOOD/HGB Negative Normal NEG [facility] Comment on above: Performed By: #### 2 106-3 #### [facility] ([id number]) [address] [place] [address] 78635 Color (U) YELLOW Normal YELLOW [facility] Comment on above: Performed By: #### 2 106-3 #### [facility] ([id number]) [address] [place] [address] 74867 Glucose Ql (U) Negative Normal NEG [facility] Comment on above: Performed By: #### 2 106-3 #### [facility] ([id number]) [address] [place] [address] 41435 Ketones Ql (U) Negative Normal NEG [facility] Comment on above: Performed By: #### 2 106-3 #### [facility] ([id number]) [address] [place] [address] 69440 Leukocyte esterase Test strip Ql (U) Negative Normal NEG [facility] Comment on above: Performed By: #### 2 106-3 #### [facility] ([id number]) [address] [place] [address] [place] [address] MUCOUS PRESENT Abnormal NONE [facility] Comment on above: Performed By: #### 2 106-3 #### [facility] ([id number]) [address] [place] [address] 49217 Nitrite Ql (U) Negative Normal NEG [facility] Comment on above: Performed By: #### 2 106-3 #### [facility] ([id number]) [address] [place] [address] 15257 pH (U) 6.5 [pH] Normal 5.0-8.5 [facility] Comment on above: Performed By: #### 2 106-3 #### [facility] ([id number]) [address] [place] [address] 41923 Protein Ql (U) Trace Abnormal NEG [facility] Comment on above: Performed By: #### 2 106-3 #### [facility] ([id number]) [address] [place] [address] [place] [address] R.B.CELLS 0 /hpf Normal 0-5 [facility] Comment on above: Performed By: #### 2 106-3 #### [facility] ([id number]) [address] [place] [address] 09005 Specific gravity (U) [Rel density] 1.025 Normal 1.003-1.03 5 [facility] Comment on above: Performed By: #### 2 106-3 #### [facility] ([id number]) [address] [place] [address] 80116 SQUAMOUS EPITHELIUM 2 /hpf Normal 0-5 [facility] Comment on above: Performed By: #### 2 106-3 #### [facility] ([id number]) [address] [place] [address] [place] [address] TURBIDITY CLEAR Normal CLEAR [facility] Comment on above: Performed By: #### 2 106-3 #### [facility] ([id number]) [address] [place] [address] [place] [address] Urobilinogen Qn (U) 1.0 {Jazmine'U}/dL Normal <1.1 [facility] Comment on above: Performed By: #### 2 106-3 #### [facility] ([id number]) [address] [place] [address] [place] [address] W.B.CELLS 0 /hpf Normal 0-5 [facility] Comment on above: Performed By: #### 2 106-3 #### [facility] ([id number]) [address] [place] [address] CHLAMYDIA/GC PCR, FLon 05-04 CHLAMYDIA/GC PCR, FL [...] are dependent on adequate specimen collection. Normal [facility] Comment on above: Performed By: #### 2 106-3 #### [facility] ([id number]) [address] [place] [address] 48436 Cytologyon 05-05-2023 Cytology Normal [facility] Comment on above: Result Comment: [facility] [address] [place] [address] Gynecologic Cytology Consultation Patient Name:ANTOINETTE RECIO:1995 (Age: 28)Gender:FTaken:4Reported:4Physician(s):Nieves Velasquez M.D. ([phone])Copy To: Rec. #:[id number]: #[id number] Final Cytologic Interpretation ThinPrep Pap Test (Cervical): Satisfactory for evaluation. A transformation zone component is present. NEGATIVE FOR INTRAEPITHELIAL LESION OR MALIGNANCY. Numerous neutrophilic leukocytes are present. sairaja/05/21/2023 Interpretation performed at [facility], [address] [place] [address], License number: [id number]. 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 Comment on above: Result Comment: If recent infection suspected, recommend repeat testing (>2 months). Ktibjk-mb-lrudgr ratio is <0.80. Performed By: #### N UM #### [facility] ([id number]) [address] [place] [address], [place] [address] HEPATITIS A IGM Non-Reactive Normal NRCT [facility] Comment on above: Performed By: #### N UM #### [facility] ([id number]) [address] [place] [address], [place] [address] HEPATITIS B CORE IGM Negative Normal NEG [facility] Comment on above: Performed By: #### N UM #### [facility] ([id number]) [address] [place] [address], [place] [address] HEPATITIS B SURF AG Negative Normal NEG [facility] Comment on above: Performed By: #### N UM #### [facility] ([id number]) [address] [place] [address] 75329 COMPLETE BLOOD COUNTon 04-15 Erythrocyte distribution width (RBC) [Ratio] 18.6 % High 11.5-15.0 [facility] Comment on above: Performed By: #### C BC, CMP, 2532-0, 3084-1, AHP, 02501-7, 45851-3, 08462-6, 33735-8 #### [facility] ([id number]) [address], [address] [place] [address] Hematocrit (Bld) [Volume fraction] 34.6 % Low 35-47 [facility] Comment on above: Performed By: #### C BC, CMP, 2532-0, 3084-1, AHP, 34610-5, 38942-2, 23940-0, 88102-3 #### [facility] ([id number]) [address], [address] [place] [address] Hemoglobin (Bld) [Mass/Vol] 11.4 g/dL Low 11.7-15.5 [facility] Comment on above: Performed By: #### C BC, CMP, 2532-0, 3084-1, AHP, 36465-8, 22829-8, 24045-5, 88497-3 #### [facility] ([id number]) [address], [address] [place] [address] MCH (RBC) [Entitic mass] 26.7 pg Low 27-34 [facility] Comment on above: Performed By: #### C BC, CMP, 2532-0, 3084-1, AHP, 75126-2, 61525-4, 52063-4, 62237-6 #### [facility] ([id number]) [address], [address] [place] [address] MCHC (RBC) [Mass/Vol] 32.8 g/dL Normal 32-36 [facility] Comment on above: Performed By: #### C BC, CMP, 2532-0, 3084-1, AHP, 56330-9, 70570-7, 31978-8, 39188-8 #### [facility] ([id number]) [address], [address] [place] [address] MCV (RBC) [Entitic vol] 81 fL Normal 80-100 [facility] Comment on above: Performed By: #### C BC, CMP, 2532-0, 3084-1, AHP, 76187-0, 62953-5, 01269-5, 74858-6 #### [facility] ([id number]) [address], [address] [place] [address] Platelet mean volume (Bld) [Entitic vol] 8.5 fL Normal 7-12 [facility] Comment on above: Performed By: #### C BC, CMP, 2532-0, 3084-1, AHP, 94058-3, 18892-0, 55490-9, 70324-8 #### [facility] ([id number]) [address], [address] [place] [address] Platelets (Bld) [#/Vol] 351 10*3/uL Normal 150-450 [facility] Comment on above: Performed By: #### C BC, CMP, 2532-0, 3084-1, AHP, 40789-4, 11767-7, 85484-3, 69339-5 #### [facility] ([id number]) [address], [address] [place] [address] RBC COUNT 4.26 X10E12/L Normal 3.80-5.20 [facility] Comment on above: Performed By: #### C BC, CMP, 2532-0, 3084-1, AHP, 41413-8, 21772-4, 82715-4, 28546-4 #### [facility] ([id number]) [address], [address] [place] [address] WBC (Bld) [#/Vol] 8.9 10*3/uL Normal 4.0-11.0 [facility] Comment on above: Performed By: #### C BC, CMP, 2532-0, 3084-1, AHP, 52823-7, 70072-4, 96787-9, 03398-3 #### [facility] ([id number]) [address], [address] [place] [address] COMPREHENSIVE METABOLIC PANE Shaji 04-16-2023 Albumin [Mass/Vol] 4.4 g/dL Normal 3.2-5.3 [facility] Comment on above: Performed By: #### C BC, CMP, 2532-0, 3084-1, AHP, 87985-0, 33426-7, 07024-8, 98020-0 #### [facility] ([id number]) [address], [address] [place] [address] ALP [Catalytic activity/Vol] 42 U/L Normal 39-130 [facility] Comment on above: Performed By: #### C BC, CMP, 2532-0, 3084-1, AHP, 30083-7, 93635-9, 99620-4, 28388-3 #### [facility] ([id number]) [address], [address] [place] [address] ALT [Catalytic activity/Vol] 12 U/L Normal 0-31 [facility] Comment on above: Performed By: #### C BC, CMP, 2532-0, 3084-1, AHP, 06386-9, 78597-2, 78067-6, 30132-2 #### [facility] ([id number]) [address], [address] [place] [address] Anion gap [Moles/Vol] 9 mmol/L Normal 5-15 [facility] Comment on above: Performed By: #### C BC, CMP, 2532-0, 3084-1, AHP, 54512-5, 41856-6, 80584-2, 26404-2 #### [facility] ([id number]) [address], [address] [place] [address] AST [Catalytic activity/Vol] 13 U/L Normal 0-41 [facility] Comment on above: Performed By: #### C BC, CMP, 2532-0, 3084-1, AHP, 26622-2, 49336-0, 99202-1, 28000-7 #### [facility] ([id number]) [address], [address] [place] [address] Bilirubin [Mass/Vol] 0.7 mg/dL Normal 0.3-1.2 [facility] Comment on above: Performed By: #### C BC, CMP, 2532-0, 3084-1, AHP, 67802-9, 65190-1, 59543-4, 73955-1 #### [facility] ([id number]) [address], [address] [place] [address] Calcium [Mass/Vol] 9.4 mg/dL Normal 8.5-10.5 [facility] Comment on above: Performed By: #### C BC, CMP, 2532-0, 3084-1, AHP, 19095-0, 87218-1, 14229-3, 22906-9 #### [facility] ([id number]) [address], [address] [place] [address] Chloride [Moles/Vol] 103 mmol/L Normal 98-109 [facility] Comment on above: Performed By: #### C BC, CMP, 2532-0, 3084-1, AHP, 39664-6, 49262-9, 88562-5, 23806-8 #### [facility] ([id number]) [address], [address] [place] [address] CO2 [Moles/Vol] 24 mmol/L Normal 22-32 [facility] Comment on above: Performed By: #### C BC, CMP, 2532-0, 3084-1, AHP, 40131-7, 66942-5, 60188-9, 55160-6 #### [facility] ([id number]) [address], [address] [place] [address] Creatinine [Mass/Vol] 0.63 mg/dL Normal 0.40-1.00 [facility] Comment on above: Result Comment: METH OD TRACEABLE TO IDMS STANDARD Performed By: #### C BC, CMP, 2532-0, 3084-1, AHP, 31746-0, 25837-2, 71707-6, 62417-0 #### [facility] ([id number]) [address], [address] [place] [address] eGFR (CKD-EPI) NON-RACE DEPENDENT >90 Normal >59 [facility] Comment on above: Result Comment: Reported eGFR is based on the CKD-EPI 2020 equation that does not use a race coefficient. Performed By: #### C BC, CMP, 2532-0, 3084-1, AHP, 94564-4, 67892-9, 46578-9, 97123-6 #### [facility] ([id number]) [address], [address] [place] [address] Glucose [Mass/Vol] 84 mg/dL Normal 65-99 [facility] Comment on above: Performed By: #### C BC, CMP, 2532-0, 3084-1, AHP, 32347-9, 22405-7, 20576-5, 51612-8 #### [facility] ([id number]) [address], [address] [place] [address] Potassium [Moles/Vol] 3.4 mmol/L Low 3.5-5.0 [facility] Comment on above: Performed By: #### C BC, CMP, 2532-0, 3084-1, AHP, 48894-5, 39999-1, 75823-4, 20768-5 #### [facility] ([id number]) [address], [address] [place] [address] Protein [Mass/Vol] 6.9 g/dL Normal 6.0-8.0 [facility] Comment on above: Performed By: #### C BC, CMP, 2532-0, 3084-1, AHP, 44807-2, 81418-6, 83679-8, 57508-9 #### [facility] ([id number]) [address], [address] [place] [address] Sodium [Moles/Vol] 136 mmol/L Normal 134-146 [facility] Comment on above: Performed By: #### C BC, CMP, 2532-0, 3084-1, AHP, 07639-6, 30861-4, 00479-6, 54713-8 #### [facility] ([id number]) [address], [address] [place] [address] Urea nitrogen [Mass/Vol] 11 mg/dL Normal 5-23 [facility] Comment on above: Performed By: #### C BC, CMP, 2532-0, 3084-1, AHP, 72604-0, 64640-3, 09563-1, 50750-0 #### [facility] ([id number]) [address] [place] [address] DRUG SCREEN, URINEon 024 AMPHETAMINE/METHAMP Negative Normal NEG [facility] Comment on above: Result Comment: AMPH /METH screening cut off = 1000 ng/mL Performed By: #### N UM #### [facility] ([id number]) [address] [place] [address] 049[address] BARBITURATES Negative Normal NEG [facility] Comment on above: Result Comment: Carmella iturates screening cut off value = 200 ng/mL Performed By: #### N UM #### [facility] ([id number]) [address] [place] [address] 11157 BENZODIAZEPINES Negative Normal NEG [facility] Comment on above: Result Comment: German odiazepines screening cut off value = 200 ng/mL Performed By: #### N UM #### [facility] ([id number]) [address] [place] [address] CANNABINOIDS Positive Abnormal NEG [facility] Comment on above: Result Comment: Conf irmation available upon request. Cannabinoids/THC screening cut off value = 50 ng/mL Performed By: #### N UM #### [facility] ([id number]) [address] [place] [address] 685[address] COCAINE METABOLITE Negative Normal NEG [facility] Comment on above: Result Comment: Coca ine screening cut off value = 300 ng/mL Performed By: #### N UM #### [facility] ([id number]) [address] [place] [address] [place] [address] ECSTASY Negative Normal NEG [facility] Comment on above: Result Comment: Ecst asy screening cut off value = 500 ng/mL This report is intended for use in clinical monitoring or management of patients. Performed By: #### N UM #### [facility] ([id number]) [address] [place] [address] [place] [address] METHADONE Negative Normal NEG [facility] Comment on above: Result Comment: Meth adone screening cut off value = 300 ng/mL. Performed By: #### N UM #### [facility] ([id number]) [address] [place] [address] 50435 OPIATES Negative Normal NEG [facility] Comment on above: Result Comment: Opia markie screening cut off value = 300 ng/mL NOTE: This test is used for the detection of codeine, hydrocodone (>1000 ng/mL), morphine and hydromorphone (>900 ng/mL) in urine. Performed By: #### N UM #### [facility] ([id number]) [address] [place] [address] OXYCODONE Negative Normal NEG [facility] Comment on above: Result Comment: Oxyc odone screening cut off value = 300 ng/mL NOTE: This test is used for the detection of oxycodone and oxymorphone in urine. Performed By: #### N UM #### [facility] ([id number]) [address] [place] [address] PHENCYCLIDINE Negative Normal NEG [facility] Comment on above: Result Comment: Phen cyclidine screening cut off value = 25 ng/mL Performed By: #### N UM #### [facility] ([id number]) [address] [place] [address] [place] [address] HIV 1+2 Ab+HIV1 p24 Ag IA Ql on 04-16-2023 HIV 1 and 2 Ab/Ag Screen Non-Reactive Normal NRCT [facility] Comment on above: Result Comment: This [...] By: #### N UM #### [facility] ([id number]) [address] [place] [address] 10894 LDH [Catalytic activity/Vol] on 04-16-2023 LDH 156 U/L Normal 100-235 [facility] Comment on above: Performed By: #### N UM #### [facility] ([id number]) [address] [place] [address] 29339 PROTEIN CREAT RATIOon 2023 RANDOM URINE PROTEIN 180 mg/L High <120 [facility] Comment on above: Performed By: #### N UM #### [facility] ([id number]) [address] [place] [address] U/PRO/TRAPEZE PERFORMER RATIO CALC 0.07 Normal <0.2 [facility] Comment on above: Result Comment: Neph rotic Syndrome is associated with ratios >3.5 Performed By: #### N UM #### [facility] ([id number]) [address] [place] [address] URINE CREATININE,RDM 273.50 mg/dL Normal Pr [facility] Comment on above: Performed By: #### N UM #### [facility] ([id number]) [address] [place] [address] 70519 Rubella virus Ab Ql (S)on RUBELLA IMMUNE IgG 3.1 AI Normal [facility] Comment on above: Result Comment: Interpretation-------- <0.8 NEGATIVE-considered Not Immune 0.8-0.9 EQUIVOCAL-consider retesting with new specimen >0.9 POSITIVE-considered Immune Performed By: #### N UM #### [facility] ([id number]) [address] [place] [address]115 T. pallidum IgG+IgM IA Ql (S )on 04-16-2023 Syphilis Total <0.2 Normal 0.0-0.8 [facility] Comment on above: Result Comment: NON REACTIVE No serologic evidence of infection to Treponema pallidum (syphilis). Repeat testing may be considered in patients with suspected acute or primary syphilis in 2 to 4 weeks. Performed By: #### N UM #### [facility] ([id number]) [address] [place] [address] 67[address] URIC ACIDon 04-16-2023 Urate [Mass/Vol] 7.5 mg/dL High 2.6-7.2 [facility] Comment on above: Performed By: #### N UM #### [facility] ([id number]) [address] [place] [address] 30546 URINALYSISon 04-16-2023 Bilirubin Ql (U) Negative Normal NEG [facility] BLOOD/HGB Negative Normal NEG [facility] CA OXALATE CRYSTALS PRESENT Abnormal NONE [facility] Color (U) BROWN Abnormal YELLOW [facility] Glucose Ql (U) Negative Normal NEG [facility] Ketones Ql (U) Negative Normal NEG [facility] Leukocyte esterase Test strip Ql (U) Small Abnormal NEG [facility] MUCOUS PRESENT Abnormal NONE [facility] Nitrite Ql (U) Negative Normal NEG [facility] pH (U) 6.0 [pH] Normal 5.0-8.5 [facility] Protein Ql (U) 30 mg/dL Abnormal NEG [facility] R.B.CELLS 2 /hpf Normal 0-5 [facility] Specific gravity (U) [Rel density] 1.030 Normal 1.003-1.03 5 [facility] SQUAMOUS EPITHELIUM >27 High 0-5 [facility] TURBIDITY CLOUDY Abnormal CLEAR [facility] Urobilinogen (U) [Mass/Vol] mg/dL Normal <1.1 [facility] W.B.CELLS <1 Normal 0-5 [facility] URINE CULTUREon 04-16-2023 Bacteria identified Cx Nom (U) CULTURE RESULTS 50-100,000 ORGANISMS/ML NORMAL UROGENITAL YOGESH Normal [facility] Comment on above: Performed By: #### 2 106-3 #### [facility] ([id number]) [address] [place] [address], [place] [address] US PREG LESS THAN 14 WKS WIT H TRANSVAGINALon 04-16-2023 US PREG LESS THAN 14 WKS WITH TRANSVAGINAL US PREG LESS THAN 14 WKS WITH TRANSVAGINAL US PREG LESS THAN 14 WKS WITH TRANSVAGINAL: 04/16/2023 1:04 PM Clinical: Check dates and viability. Real-time transabdominal and transvaginal sonography pelvis performed.. No comparison. There is a single live intrauterine . Filer-rump length of 2.9 mm corresponds to 5 [...] Cook MD on 04/16/2023 6:58 PM Normal [facility] VZV IgG IA Ql (S)on 04-16-19 24 VARICELLA IgG 1.1 AI High <0.9 [facility] Comment on above: Result Comment: Interpretation-------- <0.9 Negative 0.9 - 1.0 Equivocal >1.0 Positive Performed By: #### N UM #### [facility] ([id number]) [address] [place] [address] 75190 CBC AND AUTO DIFFon 03-30-19 24 ABSOLUTE BASOPHIL 0.1 X10E9/L Normal 0.0-0.2 [facility] Comment on above: Performed By: #### C [facility], #### [facility] ([id number]) [address] [place] [address] 22338 ABSOLUTE NEUTROPHIL 7.6 X10E9/L High 1.5-6.6 [facility] Comment on above: Performed By: #### Doretha [facility], #### [facility] ([id number]) [address] [place] [address] 04091 Basophils/100 WBC (Bld) 0.7 % Normal [facility] Comment on above: Performed By: #### Doretha [facility], #### [facility] ([id number]) [address] [place] [address] [id number] Eosinophils (Bld) [#/Vol] 0.2 10*3/uL Normal 0.0-0.4 [facility] Comment on above: Performed By: #### Doretha [facility], #### [facility] ([id number]) [address] [place] [address] 16707 Eosinophils/100 WBC (Bld) 1.8 % Normal [facility] Comment on above: Performed By: #### Doretha [facility], #### [facility] ([id number]) [address] [place] [address] [phone] Erythrocyte distribution width (RBC) [Ratio] 18.4 % High 11.5-15.0 [facility] Comment on above: Performed By: #### Doretha [facility], #### [facility] ([id number]) [address] [place] [address] [phone] Hematocrit (Bld) [Volume fraction] 35.8 % Normal 35-47 [facility] Comment on above: Performed By: #### Doretha [facility], #### [facility] ([id number]) [address] [place] [address] [id number] Hemoglobin (Bld) [Mass/Vol] 11.7 g/dL Normal 11.7-15.5 [facility] Comment on above: Performed By: #### Doretha MARION CMP, #### [facility] ([id number]) [address] [place] [address] 60617 Lymphocytes (Bld) [#/Vol] 2.2 10*3/uL Normal 1.0-3.5 [facility] Comment on above: Performed By: #### Doretha MARION CMP, #### [facility] ([id number]) [address] [place] [address] 76562 Lymphocytes/100 WBC (Bld) 20.7 % Normal [facility] Comment on above: Performed By: #### Doretha MARION CMP, #### [facility] ([id number]) [address] [place] [address] 93999 MCH (RBC) [Entitic mass] 26.2 pg Low 27-34 [facility] Comment on above: Performed By: #### Doretha MARION CMP, #### [facility] ([id number]) [address] [place] [address] 80662 MCHC (RBC) [Mass/Vol] 32.8 g/dL Normal 32-36 [facility] Comment on above: Performed By: #### C SANAM CMP, #### [facility] ([id number]) [address] [place] [address] 64921 MCV (RBC) [Entitic vol] 80 fL Normal 80-100 [facility] Comment on above: Performed By: #### Doretha MARION CMP, #### [facility] ([id number]) [address] [place] [address] 48395 Monocytes (Bld) [#/Vol] 0.5 10*3/uL Normal 0-0.9 [facility] Comment on above: Performed By: #### Doretha MARION CMP, #### [facility] ([id number]) [address] [place] [address] 59562 Monocytes/100 WBC (Bld) 5.2 % Normal [facility] Comment on above: Performed By: #### Doretha MARION, CMP, #### [facility] ([id number]) [address] [place] [address] 33054 Neutrophils/100 WBC (Bld) 71.6 % Normal [facility] Comment on above: Performed By: #### Doretha MARION, CMP, #### [facility] ([id number]) [address] [place] [address] 31587 Platelet mean volume (Bld) [Entitic vol] 8.3 fL Normal 7-12 [facility] Comment on above: Performed By: #### Doretha MARION, CMP, #### [facility] ([id number]) [address] [place] [address] 07309 Platelets (Bld) [#/Vol] 337 10*3/uL Normal 150-450 [facility] Comment on above: Performed By: #### C SANAM, CMP, #### [facility] ([id number]) [address] [place] [address] 34100 RBC COUNT 4.48 X10E12/L Normal 3.80-5.20 [facility] Comment on above: Performed By: #### C SANAM, CMP, #### [facility] ([id number]) [address] [place] [address] 52312 WBC (Bld) [#/Vol] 10.6 10*3/uL Normal 4.0-11.0 [facility] Comment on above: Performed By: #### C SANAM, CMP, #### [facility] ([id number]) [address] [place] [address] 77157 COMPREHENSIVE METABOLIC PANE Shaji 03-30-2023 Albumin [Mass/Vol] 4.4 g/dL Normal 3.2-5.3 [facility] Comment on above: Performed By: #### C SANAM, CMP, #### [facility] ([id number]) [address] [place] [address] 02709 ALP [Catalytic activity/Vol] 40 U/L Normal 39-130 [facility] Comment on above: Performed By: #### C BCA, CMP, #### [facility] ([id number]) [address] [place] [address] 29276 ALT [Catalytic activity/Vol] 12 U/L Normal 0-31 [facility] Comment on above: Performed By: #### C BCA, CMP, #### [facility] ([id number]) [address] [place] [address] 80985 Anion gap [Moles/Vol] 8 mmol/L Normal 5-15 [facility] Comment on above: Performed By: #### C BCA, CMP, #### [facility] ([id number]) [address] [place] [address] 65885 AST [Catalytic activity/Vol] 16 U/L Normal 0-41 [facility] Comment on above: Performed By: #### C BCA, CMP, #### [facility] ([id number]) [address] [place] [address] 94390 Bilirubin [Mass/Vol] 0.5 mg/dL Normal 0.3-1.2 [facility] Comment on above: Performed By: #### C BCA, CMP, #### [facility] ([id number]) [address] [place] [address] 69663 Calcium [Mass/Vol] 9.2 mg/dL Normal 8.5-10.5 [facility] Comment on above: Performed By: #### C BCA, CMP, #### [facility] ([id number]) [address] [place] [address] 71444 Chloride [Moles/Vol] 105 mmol/L Normal 98-109 [facility] Comment on above: Performed By: #### C BCA, CMP, #### [facility] ([id number]) [address] [place] [address] 02298 CO2 [Moles/Vol] 24 mmol/L Normal 22-32 [facility] Comment on above: Performed By: #### C BCA, CMP, #### [facility] ([id number]) [address] [place] [address] 36012 Creatinine [Mass/Vol] 0.74 mg/dL Normal 0.40-1.00 [facility] Comment on above: Result Comment: METH OD TRACEABLE TO IDMS STANDARD Performed By: #### C BCA, CMP, #### [facility] ([id number]) [address] [place] [address] 62447 eGFR (CKD-EPI) NON-RACE DEPENDENT >90 Normal >59 [facility] Comment on above: Result Comment: Reported eGFR is based on the CKD-EPI 2020 equation that does not use a race coefficient. Performed By: #### C OPAL MARION, #### [facility] ([id number]) [address] [place] [address] 41234 Glucose [Mass/Vol] 89 mg/dL Normal 65-99 [facility] Comment on above: Performed By: #### C OPAL MARION, #### [facility] ([id number]) [address] [place] [address] 47966 Potassium [Moles/Vol] 3.7 mmol/L Normal 3.5-5.0 [facility] Comment on above: Performed By: #### C SANAM [facility], #### [facility] ([id number]) [address] [place] [address] 84085 Protein [Mass/Vol] 7.4 g/dL Normal 6.0-8.0 [facility] Comment on above: Performed By: #### C OPAL MARION, #### [facility] ([id number]) [address] [place] [address] 27140 Sodium [Moles/Vol] 137 mmol/L Normal 134-146 [facility] Comment on above: Performed By: #### C OPAL MARION, #### [facility] ([id number]) [address] [place] [address] 21037 Urea nitrogen [Mass/Vol] 10 mg/dL Normal 5-23 [facility] Comment on above: Performed By: #### C SANAM CMP, #### [facility] ([id number]) [address] [place] [address] HCG ( test) Ql (U)o n 03-30-2023 Beta HCG ( test) Ql (U) Positive Abnormal NEG [facility] Comment on above: Performed By: #### 2 106-3 #### [facility] ([id number]) [address] [place] [address] 92241 HCG.beta subunit IA 3rd IS Q non 03-30-2023 HCG.beta subunit Qn 80 m[IU]/mL Normal [facility] Comment on above: Result Comment: NEW REFERENCE [...] nontrophoblastic neoplasms. Performed By: #### C BCA, [facility], [id number] #### [facility] ([id number]) [address] [place] [address] 27079 URINE CULTUREon 03-30-2023 Bacteria identified Cx Nom (U) CULTURE RESULTS 10-50,000 ORGANISMS/mL NORMAL UROGENITAL YOGESH Normal [facility] Comment on above: Performed By: #### 6 30-4 #### [facility] ([id number]) [address], [address] [place] [address] URN MACROSCOPIC NURon 2023 BILIRUBIN YARI Negative Normal NEG [facility] Comment on above: Performed By: #### N UM #### [facility] ([id number]) [address] [place] [address] [place] [address] BLOOD/HGB YARI Negative Normal NEG [facility] Comment on above: Performed By: #### N UM #### [facility] ([id number]) [address] [place] [address], [place] [address] GLUCOSE YARI Negative Normal NEG [facility] Comment on above: Performed By: #### N UM #### [facility] ([id number]) [address] [place] [address], [place] [address] KETONES YARI Negative Normal NEG [facility] Comment on above: Performed By: #### N UM #### [facility] ([id number]) [address] [place] [address] [place] [address] LEUKOCYTE ESTERASE YARI Negative Normal NEG [facility] Comment on above: Performed By: #### N UM #### [facility] ([id number]) [address] [place] [address], [place] [address] NITRITE YARI Negative Normal NEG [facility] Comment on above: Performed By: #### N UM #### [facility] ([id number]) [address] [place] [address], [place] [address] PH YARI 6.0 Normal 5.0-8.5 [facility] Comment on above: Performed By: #### N UM #### [facility] ([id number]) [address] [place] [address] [place] [address] PROTEIN YARI Negative Normal NEG [facility] Comment on above: Performed By: #### N UM #### [facility] ([id number]) [address] [place] [address], [place] [address] SPECIFIC GRAVITY YARI >=1.030 Normal 1.003-1 .03 5 [facility] Comment on above: Performed By: #### N UM #### [facility] ([id number]) [address] [facility] [place] [address], [place] [address] UROBILINOGEN YARI 0.2 eu/dL Normal <1.1 [facility] Comment on above: Performed By: #### N UM #### [facility] ([id number]) [address] [facility] [place] [address], [place] [address] US PREG LESS THAN 14 WKS WIT [...] Eckert MD on 03/30/2023 8:48 PM Normal [facility] Cholesterol [Mass/volume] in Serum or PlasmaOrdered By: Dar Nation on 11-28-2022 Cholesterol [Mass/Vol] 200 mg/dL 140-200 [facility] Comment on above: Chol less than 200 m g/dl low riskChol 201-239 mg/dl borderline riskChol 240 mg/dl and greater high risk Cholesterol in LDL Calc [Mas s/Vol]Ordered By: Dar Nation on 11-28-2022 Cholesterol in LDL [Mass/Vol] 75 mg/dL 0-100 [facility] Comment on above: LDL ATP III CLASSIFI CATIONLDL less than 100 mg/dL OptimalLDL 100-129 mg/dL Near or above optimalLDL 130-159 mg/dL Borderline highLDL 160-189 mg/dL HighLDL greater than 189 mg/dL Very high Cholesterol in VLDL Calc [Ma ss/Vol]Ordered By: Dar Nation on 11-28-2022 Cholesterol in VLDL [Mass/Vol] 16 mg/dL [facility] Serum or plasma high density lipoprotein (HDL) cholesterol measurementOrdered By: Dar Nation on 11-28-2022 Cholesterol in HDL [Mass/Vol] 109 mg/dL 23-92 [facility] Comment on above: HDL CHOL ATP-III CLA SSIFICATION Cardiovascular RiskHDL > or equal to 60 mg/dL LOWHDL < 40 mg/dL HIGH Serum or plasma total choles terol/high density lipoprotein (HDL) cholesterol mass ratOrdered By: Dar Nation on 11-28-2022 Cholesterol.total/Chol esterol in HDL [Mass ratio] 1.8 {ratio} <5.0 [facility] Thyrotropin [Units/volume] i n Serum or PlasmaOrdered By: Dar Nation on 11-28-2022 TSH Qn 1.79 m[IU]/L 0.45-5.33 [facility] Triglyceride [Mass/volume] i n Serum or PlasmaOrdered By: Dar Nation on 11-28-2022 Triglyceride [Mass/Vol] 80 mg/dL 0-149 [facility] Comment on above: TRIG ATP III CLASSIF ICATIONTRIG less than 150 mg/dL NormalTRIG 150-199 mg/dL Borderline highTRIG 200-500 mg/dL High TRIG greater than 500 mg/dL Very highStandard traceable to the Center for Disease Conrtrol and Prevention (CDC) test method. Vitamin D+Metabolites [Mass/ volume] in Serum or PlasmaOrdered By: Dar Nation on 11-28-2022 Vitamin D+Metabolites [Mass/Vol] 32.8 ng/mL 30-100 [facility] Comment on above: VITAMIN D STATUS 25( [place])VITAMIN D RANGE (ng/mL) Deficient <20 Insufficient 20 to <30Sufficient 30 to 100Reference: Sharmaine MF,Aye NC, Geremias YOUNG, et al. Evaluation,treatment, and prevention of vitamin D deficiency; an Endocrine Society clinical practice guideline. JCEM. 2010; 96(7):1911-30. Alanine aminotransferase [En zymatic activity/volume] in Serum or PlasmaOrdered By: Lonnie Tripathi on 11-27-2022 ALT [Catalytic activity/Vol] 19 U/L 7-52 [facility] Albumin [Mass/volume] in Ser um or Plasma by Bromocresol green (BCG) dye binding methoOrdered By: Lonnie Tripathi on 11-27-2022 Albumin BCG dye [Mass/Vol] 4.2 g/dL 3.5-5.7 [facility] Alkaline phosphatase [Enzyma tic activity/volume] in Serum or PlasmaOrdered By: Lonnie Tripathi on 11-27-2022 ALP [Catalytic activity/Vol] 56 U/L 34-104 [facility] Amphetamine Screen Ql (U)Ord ered By: Lonnie Tripathi on 11-27-2022 Amphetamines Ql (U) Negative Negative [facility] Aspartate aminotransferase [ Enzymatic activity/volume] in Serum or PlasmaOrdered By: Lonnie Tripathi on 11-27-2022 AST [Catalytic activity/Vol] 31 U/L 13-39 [facility] Automated erythrocytes count in urine sediment (number/area)Ordered By: Lonnie Tripathi on 11-27-2022 RBC Auto (Urine sed) [#/Area] 5-9 [HPF] 0-4 [facility] Automated leukocytes count i n urine sediment (number/area)Ordered By: Lonnie Tripathi on 11-27-2022 WBC Auto (Urine sed) [#/Area] 50-100 [HPF] 0-4 [facility] Automated urine hyaline cast s count (number/volume)Ordered By: Lonnie Tripathi on 11-27-2022 Hyaline casts Auto (U) [#/Vol] None seen [LPF] 0-1 [facility] Barbiturates [Presence] in U rine by Screen methodOrdered By: Lonnie Tripathi on 11-27-2022 Barbiturates Screen Ql (U) Negative Negative [facility] Basophils Auto (Bld) [#/Vol] Ordered By: Lonnie Tripathi on 11-27-2022 Basophils (Bld) [#/Vol] 0.2 10*3/uL 0.0-0.2 [facility] Basophils/100 WBC Auto (Bld) Ordered By: Lonnie Tripathi on 11-27-2022 Basophils/100 WBC (Bld) 3.0 % . [facility] Benzodiazepines Screen Ql (U )Ordered By: Lonnie Tripathi on 11-27-2022 Benzodiazepines Ql (U) Negative Negative [facility] Benzoylecgonine [Presence] i n Urine by Screen methodOrdered By: Lonnie Tripathi on 11-27-2022 Benzoylecgonine Screen Ql (U) Negative Negative [facility] Bilirubin Test strip Ql (U)O rdered By: Lonnie Tripathi on 11-27-2022 Bilirubin Ql (U) Negative Negative [facility] Bilirubin.total [Mass/volume ] in Serum or PlasmaOrdered By: Lonnie Tripathi on 11-27-2022 Bilirubin [Mass/Vol] 0.7 mg/dL 0.3-1.0 [facility] Calcium [Mass/volume] in Ser um or PlasmaOrdered By: Lonnie Tripathi on 11-27-2022 Calcium [Mass/Vol] 9.4 mg/dL 8.6-10.3 [facility] Cannabinoids [Presence] in U rine by Screen methodOrdered By: Lonnie Tripathi on 11-27-2022 Cannabinoids Screen Ql (U) Positive Negative [facility] Comment on above: These are unconfirme d results and should not be used for legal purposes. Drug Cut-Off Concentration: AMPH 1000 ng/mL CARMELLA 200 ng/mL GERMAN 200 ng/mL COCM 300 ng/mL OP 300 ng/mL PCP 25 ng/mL THC 20 ng/mL Carbon dioxide, total [Moles /volume] in Serum or PlasmaOrdered By: Lonnie Tripathi on 11-27-2022 CO2 [Moles/Vol] 24.9 mmol/L 21.0-31.0 [facility] Casts typing in urine sedime nt by light microscopyOrdered By: Lonnie Tripathi on 11-27-2022 Casts LM Nom (Urine sed) None seen [LPF] None Seen [facility] Chloride [Moles/volume] in S phil or PlasmaOrdered By: Lonnie Tripathi on 11-27-2022 Chloride [Moles/Vol] 101 mmol/L 98-107 [facility] Coarse granular casts count in urine sediment by microscopy low power field (number/aOrdered By: Lonnie Tripathi on 11-27-2022 Coarse Granular Casts LM.LPF (Urine sed) [#/Area] 0-1 [LPF] 0-1 [facility] Color Auto (U)Ordered By: Donna Tripathi on 11-27-2022 Color (U) Dark yellow Yellow [facility] Creatinine [Mass/volume] in Serum or PlasmaOrdered By: Lonnie Tripathi on 11-27-2022 Creatinine [Mass/Vol] 0.83 mg/dL 0.60-1.20 [facility] Eosinophils Auto (Bld) [#/Vo l]Ordered By: Lonnie Tripathi on 11-27-2022 Eosinophils (Bld) [#/Vol] 0.1 10*3/uL 0.0-0.45 [facility] Eosinophils/100 WBC Auto (Bl d)Ordered By: Lonnie Tripathi on 11-27-2022 Eosinophils/100 WBC (Bld) 1.1 % . [facility] Erythrocyte distribution wid th Auto (RBC) [Ratio]Ordered By: Lonnie Tripathi on 11-27-2022 Erythrocyte distribution width (RBC) [Ratio] 15.9 % 11.9-15.3 [facility] Ethanol [Mass/volume] in Ser um or PlasmaOrdered By: Lonnie Tripathi on 11-27-2022 Ethanol [Mass/Vol] 26 mg/dL [facility] Ethanol [Mass/Vol] 0.026 % [facility] Fine granular cast count in urine sediment by microscopy (number/low power field )Ordered By: Lonnie Tripathi on 11-27-2022 Fine Granular Casts LM.LPF (Urine sed) [#/Area] 0-1 [LPF] 0-1 [facility] Globulin Calc (S) [Mass/Vol] Ordered By: Lonnie Tripathi on 11-27-2022 Globulin (S) [Mass/Vol] 2.9 g/dL [facility] Glucose [Mass/volume] in Ser um or PlasmaOrdered By: Lonnie Tripathi on 11-27-2022 Glucose [Mass/Vol] 82 mg/dL 70-100 [facility] Comment on above: ADA recommended refe rence rangeRandom Glucose Reference Range is dependent on time and content of last meal. Glucose of more than 200 mg/dL in a nonstressed, ambulatory subject supports the diagnosis of Diabetes Mellitus. HCG ( test) IA.rapi d Ql (U)Ordered By: Lonnie Tripathi on 11-27-2022 HCG ( test) Ql (U) Negative [facility] Hematocrit Auto (Bld) [Volum e fraction]Ordered By: Lonnie Tripathi on 11-27-2022 Hematocrit (Bld) [Volume fraction] 38.0 % 34.0-46.4 [facility] Hemoglobin [Mass/volume] in BloodOrdered By: Lonnie Tripathi on 11-27-2022 Hemoglobin (Bld) [Mass/Vol] 12.5 g/dL 11.8-15.4 [facility] Ketones Auto test strip (U) [Mass/Vol]Ordered By: Lonnie Tripathi on 11-27-2022 Ketones (U) [Mass/Vol] Negative Negative [facility] Leukocytes [#/volume] correc christelle for nucleated erythrocytes in Blood by Automated counOrdered By: Lonnie Tripathi on 11-27-2022 WBC corrected for nucl RBC Auto (Bld) [#/Vol] 6.7 10*3/uL 3.8-11.6 [facility] Lymphocytes Auto (Bld) [#/Vo l]Ordered By: Lonnie Tripathi on 11-27-2022 Lymphocytes (Bld) [#/Vol] 0.8 10*3/uL 1.00-4.8 [facility] Lymphocytes/100 WBC Auto (Bl d)Ordered By: Lonnie Tripathi on 11-27-2022 Lymphocytes/100 WBC (Bld) 11.3 % . [facility] MCH Auto (RBC) [Entitic mass ]Ordered By: Lonnie Tripathi on 11-27-2022 MCH (RBC) [Entitic mass] 28.8 pg 24.7-34.3 [facility] MCHC Auto (RBC) [Mass/Vol]Or dered By: Lonnie Tripathi on 11-27-2022 MCHC (RBC) [Mass/Vol] 33.0 g/dL 32.0-35.0 [facility] MCV Auto (RBC) [Entitic vol] Ordered By: Lonnie Tripathi on 11-27-2022 MCV (RBC) [Entitic vol] 87.5 fL 80-100 [facility] Monocyte distribution width [Entitic volume] in Blood by AutomatedOrdered By: Lonnie Tripathi on 11-27-2022 Monocyte distribution width Auto (Bld) [Entitic vol] 17.41 % 0.00-20.00 [facility] Monocytes Auto (Bld) [#/Vol] Ordered By: Lonnie Tripathi on 11-27-2022 Monocytes (Bld) [#/Vol] 0.6 10*3/uL 0.0-0.8 [facility] Monocytes/100 WBC Auto (Bld) Ordered By: Lonnie Tripathi on 11-27-2022 Monocytes/100 WBC (Bld) 8.9 % . [facility] Neutrophils Auto (Bld) [#/Vo l]Ordered By: Lonnie Tripathi on 11-27-2022 Neutrophils (Bld) [#/Vol] 5.1 10*3/uL 1.8-7.7 [facility] Neutrophils/100 WBC Auto (Bl d)Ordered By: Lonnie Tripathi on 11-27-2022 Neutrophils/100 WBC (Bld) 75.7 % . [facility] Nitrite Test strip Ql (U)Ord ered By: Lonnie Tripathi on 11-27-2022 Nitrite Ql (U) Negative Negative [facility] No Panel InformationOrdered By: Lonnie Tripathi on 11-27-2022 Estimated GFR (CKD-EPI) > 60.0 mL/Min [facility] Creatinine Clearance (Chem 110.58 [facility] Nucleated erythrocytes [Pres ence] in Blood by Automated countOrdered By: Lonnie Tripathi on 11-27-2022 Nucleated RBC Auto Ql (Bld) 0.0 /100{WBC} 0-0.5 [facility] Opiates [Presence] in Urine by Screen methodOrdered By: Lonnie Tripathi on 11-27-2022 Opiates Screen Ql (U) Negative Negative [facility] Phencyclidine Screen Ql (U)O rdered By: Lonnie Tripathi on 11-27-2022 Phencyclidine Ql (U) Negative Negative [facility] Platelet mean volume Auto (B ld) [Entitic vol]Ordered By: Lonnie Tripathi on 11-27-2022 Platelet mean volume (Bld) [Entitic vol] 7.1 fL 6.3-10.7 [facility] Platelets Auto (Bld) [#/Vol] Ordered By: Lonnie Tripathi on 11-27-2022 Platelets (Bld) [#/Vol] 402 10*3/uL 150-450 [facility] Potassium [Moles/volume] in Serum or PlasmaOrdered By: Lonnie Tripathi on 11-27-2022 Potassium [Moles/Vol] 3.3 mmol/L 3.5-5.1 [facility] Protein Auto test strip (U) [Mass/Vol]Ordered By: Lonnie Tripathi on 11-27-2022 Protein (U) [Mass/Vol] Trace mg/dL Negative F [facility] Protein [Mass/volume] in Ser um or PlasmaOrdered By: Lonnie Tripathi on 11-27-2022 Protein [Mass/Vol] 7.1 g/dL 6.4-8.9 [facility] RBC Auto (Bld) [#/Vol]Ordere d By: Lonnie Tripathi on 11-27-2022 RBC (Bld) [#/Vol] 4.34 10*6/uL 3.60-5.00 [facility] Serum or plasma albumin/glob ulin mass ratioOrdered By: Lonnie Tripathi on 11-27-2022 Albumin/Globulin [Mass ratio] 1.4 {ratio} [facility] Serum or plasma anion gap de terminationOrdered By: Lonnie Tripathi on 11-27-2022 Anion gap [Moles/Vol] 15.4 mmol/L 6.0-15.0 [facility] Sodium [Moles/volume] in Ser um or PlasmaOrdered By: Lonnie Tripathi on 11-27-2022 Sodium [Moles/Vol] 138 mmol/L 136-145 [facility] Specific gravity Auto test s trip (U) [Rel density]Ordered By: Lonnie Tripathi on 11-27-2022 Specific gravity (U) [Rel density] 1.023 1.001-1.03 0 [facility] Squamous epithelial cells de tection in urine sediment by light microscopyOrdered By: Lonnie Tripathi on 11-27-2022 Epithelial cells.squamous LM Ql (Urine sed) 20-30 [HPF] 0-2 [facility] Thyrotropin [Units/volume] i n Serum or PlasmaOrdered By: Lonnie Tripathi on 11-27-2022 TSH Qn 2.35 m[IU]/L 0.45-5.33 [facility] Troponin I.cardiac [Mass/vol ume] in Serum or Plasma by Detection limit <= 0.01 ng/Ordered By: Lonnie Tripathi on 11-27-2022 Troponin I.cardiac DL <= 0.01 ng/mL [Mass/Vol] 3.2 pg/mL 0.0-15.0 [facility] Urea nitrogen [Mass/volume] in Serum or PlasmaOrdered By: Lonnie Tripathi on 11-27-2022 Urea nitrogen [Mass/Vol] 9 mg/dL 7-25 [facility] Urine bacteria detection by automated methodOrdered By: Lonnie Tripathi on 11-27-2022 Bacteria Auto Ql (U) 4+ None Seen [facility] Urine clarity by refractomet ry automatedOrdered By: Lonnie Tripathi on 11-27-2022 Clarity Refractometry automated (U) Turbid Clear [facility] Urine culture routineOrdered By: Lonnie Tripathi on 11-27-2022 Bacteria identified Cx Nom (U) Escherichia coli [facility] Urine glucose measurement by automated test strip (mass/volume)Ordered By: Lonnie Tripathi on 11-27-2022 Glucose Auto test strip (U) [Mass/Vol] Normal mg/dL Normal [facility] Urine hemoglobin detection b y automated test stripOrdered By: Lonnie Tripathi on 11-27-2022 Hemoglobin Auto test strip Ql (U) 1+ Negative [facility] Urine leukocyte esterase det ection by automated test stripOrdered By: Lonnie Tripathi on 11-27-2022 Leukocyte esterase Auto test strip Ql (U) 2+ Negative [facility] Urobilinogen Auto test strip (U) [Mass/Vol]Ordered By: Lonnie Trpiathi on 11-27-2022 Urobilinogen (U) [Mass/Vol] Normal mg/dL Normal [facility] WBC Auto (Bld) [#/Vol]Ordere d By: Lonnie Tripathi on 11-27-2022 WBC (Bld) [#/Vol] 6.7 10*3/uL 3.8-11.6 [facility] pH Auto test strip (U)Ordere d By: Lonnie Tripathi on 11-27-2022 pH (U) 5.0 [pH] 5.0-9.0 [facility] Alanine aminotransferase [En zymatic activity/volume] in Serum or PlasmaOrdered By: Ji Smith on 05-11-2022 ALT [Catalytic activity/Vol] 27 U/L 7-52 [facility] Albumin [Mass/volume] in Ser um or Plasma by Bromocresol green (BCG) dye binding methoOrdered By: Ji Smith on 05-11-2022 Albumin BCG dye [Mass/Vol] 4.5 g/dL 3.5-5.7 [facility] Alkaline phosphatase [Enzyma tic activity/volume] in Serum or PlasmaOrdered By: Ji Smith on 05-11-2022 ALP [Catalytic activity/Vol] 51 U/L 34-104 [facility] Aspartate aminotransferase [ Enzymatic activity/volume] in Serum or PlasmaOrdered By: Ji Smith on 05-11-2022 AST [Catalytic activity/Vol] 33 U/L 13-39 [facility] Bilirubin.total [Mass/volume ] in Serum or PlasmaOrdered By: Ji Smith on 05-11-2022 Bilirubin [Mass/Vol] 0.7 mg/dL 0.3-1.0 [facility] Calcium [Mass/volume] in Ser um or PlasmaOrdered By: Ji Smith on 05-11-2022 Calcium [Mass/Vol] 9.7 mg/dL 8.6-10.3 [facility] Carbon dioxide, total [Moles /volume] in Serum or PlasmaOrdered By: Ji Smith on 05-11-2022 CO2 [Moles/Vol] 25.8 mmol/L 21.0-31.0 [facility] Chloride [Moles/volume] in S phil or PlasmaOrdered By: Ji Smith on 05-11-2022 Chloride [Moles/Vol] 102 mmol/L 98-107 [facility] Creatinine [Mass/volume] in Serum or PlasmaOrdered By: Ji Smith on 05-11-2022 Creatinine [Mass/Vol] 0.68 mg/dL 0.60-1.20 [facility] Globulin Calc (S) [Mass/Vol] Ordered By: Ji Smith on 05-11-2022 Globulin (S) [Mass/Vol] 2.7 g/dL [facility] Glucose [Mass/volume] in Ser um or PlasmaOrdered By: Ji Smith on 05-11-2022 Glucose [Mass/Vol] 93 mg/dL 70-100 [facility] Comment on above: ADA recommended refe rence rangeRandom Glucose Reference Range is dependent on time and content of last meal. Glucose of more than 200 mg/dL in a nonstressed, ambulatory subject supports the diagnosis of Diabetes Mellitus. No Panel InformationOrdered By: Ji Smith on 05-11-2022 Estimated GFR (CKD-EPI) > 60.0 mL/Min [facility] Creatinine Clearance (Chem 129.74 [facility] Potassium [Moles/volume] in Serum or PlasmaOrdered By: Ji Smith on 05-11-2022 Potassium [Moles/Vol] 3.6 mmol/L 3.5-5.1 [facility] Protein [Mass/volume] in Ser um or PlasmaOrdered By: Ji Smith on 05-11-2022 Protein [Mass/Vol] 7.2 g/dL 6.4-8.9 [facility] Serum or plasma albumin/glob ulin mass ratioOrdered By: Ji Smith on 05-11-2022 Albumin/Globulin [Mass ratio] 1.7 {ratio} [facility] Serum or plasma anion gap de terminationOrdered By: Ji Smith on 05-11-2022 Anion gap [Moles/Vol] 13.8 mmol/L 6.0-15.0 [facility] Sodium [Moles/volume] in Ser um or PlasmaOrdered By: Ji Smith on 05-11-2022 Sodium [Moles/Vol] 138 mmol/L 136-145 [facility] Urea nitrogen [Mass/volume] in Serum or PlasmaOrdered By: Ji Smith on 05-11-2022 Urea nitrogen [Mass/Vol] 11 mg/dL 7-25 [facility] Acetaminophen [Mass/volume] in Serum or PlasmaOrdered By: Henry Cross on 05-09-2022 Acetaminophen [Mass/Vol] 1.1 ug/mL 10.0-30.0 [facility] Alanine aminotransferase [En zymatic activity/volume] in Serum or PlasmaOrdered By: Henry Cross on 05-09-2022 ALT [Catalytic activity/Vol] 40 U/L 7-52 [facility] Albumin [Mass/volume] in Ser um or Plasma by Bromocresol green (BCG) dye binding methoOrdered By: Henry Cross on 05-09-2022 Albumin BCG dye [Mass/Vol] 5.0 g/dL 3.5-5.7 [facility] Alkaline phosphatase [Enzyma tic activity/volume] in Serum or PlasmaOrdered By: Henry Cross on 05-09-2022 ALP [Catalytic activity/Vol] 61 U/L 34-104 [facility] Amphetamine Screen Ql (U)Ord ered By: Henry Cross on 05-09-2022 Amphetamines Ql (U) Negative Negative [facility] Aspartate aminotransferase [ Enzymatic activity/volume] in Serum or PlasmaOrdered By: Henry Cross on 05-09-2022 AST [Catalytic activity/Vol] 71 U/L 13-39 [facility] Automated epithelial cells c ount in urine sediment (number/area)Ordered By: Henry Cross on 05-09-2022 Epithelial cells Auto (Urine sed) [#/Area] 0-1 [HPF] 0-2 [facility] Automated erythrocytes count in urine sediment (number/area)Ordered By: Henry Cross on 05-09-2022 RBC Auto (Urine sed) [#/Area] 3-4 [HPF] 0-4 [facility] Automated leukocytes count i n urine sediment (number/area)Ordered By: Henry Cross on 05-09-2022 WBC Auto (Urine sed) [#/Area] 0-1 [HPF] 0-4 [facility] Barbiturates [Presence] in U rine by Screen methodOrdered By: Henry Cross on 05-09-2022 Barbiturates Screen Ql (U) Negative Negative [facility] Basophils Auto (Bld) [#/Vol] Ordered By: Henry Cross on 05-09-2022 Basophils (Bld) [#/Vol] 0.1 10*3/uL 0.0-0.2 [facility] Basophils/100 WBC Auto (Bld) Ordered By: Henry Cross on 05-09-2022 Basophils/100 WBC (Bld) 0.9 % . [facility] Benzodiazepines Screen Ql (U )Ordered By: Henry Cross on 05-09-2022 Benzodiazepines Ql (U) Negative Negative [facility] Benzoylecgonine [Presence] i n Urine by Screen methodOrdered By: Henry Cross on 05-09-2022 Benzoylecgonine Screen Ql (U) Negative Negative [facility] Bilirubin Test strip Ql (U)O rdered By: Herny Cross on 05-09-2022 Bilirubin Ql (U) Negative Negative [facility] Bilirubin.total [Mass/volume ] in Serum or PlasmaOrdered By: Henry Cross on 05-09-2022 Bilirubin [Mass/Vol] 0.4 mg/dL 0.3-1.0 [facility] Calcium [Mass/volume] in Ser um or PlasmaOrdered By: Henry Cross on 05-09-2022 Calcium [Mass/Vol] 9.4 mg/dL 8.6-10.3 [facility] Cannabinoids [Presence] in U rine by Screen methodOrdered By: Henry Cross on 05-09-2022 Cannabinoids Screen Ql (U) Positive Negative [facility] Comment on above: These are unconfirme d results and should not be used for legal purposes. Drug Cut-Off Concentration: AMPH 1000 ng/mL CARMELLA 200 ng/mL GERMAN 200 ng/mL COCM 300 ng/mL OP 300 ng/mL PCP 25 ng/mL THC 20 ng/mL Carbon dioxide, total [Moles /volume] in Serum or PlasmaOrdered By: Henry Cross on 05-09-2022 CO2 [Moles/Vol] 24.5 mmol/L 21.0-31.0 [facility] Chloride [Moles/volume] in S phil or PlasmaOrdered By: Henry Cross on 05-09-2022 Chloride [Moles/Vol] 102 mmol/L 98-107 [facility] Cholesterol [Mass/volume] in Serum or PlasmaOrdered By: Ji Smith on 05-09-2022 Cholesterol [Mass/Vol] 336 mg/dL 140-200 [facility] Comment on above: Chol less than 200 m g/dl low riskChol 201-239 mg/dl borderline riskChol 240 mg/dl and greater high risk Cholesterol in LDL Calc [Mas s/Vol]Ordered By: Ji Smith on 05-09-2022 Cholesterol in LDL [Mass/Vol] 133 mg/dL 0-100 [facility] Comment on above: LDL ATP III CLASSIFI CATIONLDL less than 100 mg/dL OptimalLDL 100-129 mg/dL Near or above optimalLDL 130-159 mg/dL Borderline highLDL 160-189 mg/dL HighLDL greater than 189 mg/dL Very high Cholesterol in VLDL Calc [Ma ss/Vol]Ordered By: Ji Smith on 05-09-2022 Cholesterol in VLDL [Mass/Vol] 21 mg/dL [facility] Color Auto (U)Ordered By: Valerie Cross on 05-09-2022 Color (U) Yellow Yellow [facility] Creatinine [Mass/volume] in Serum or PlasmaOrdered By: Henry Cross on 05-09-2022 Creatinine [Mass/Vol] 0.76 mg/dL 0.60-1.20 [facility] Eosinophils Auto (Bld) [#/Vo l]Ordered By: Henry Cross on 05-09-2022 Eosinophils (Bld) [#/Vol] 0.1 10*3/uL 0.0-0.45 [facility] Eosinophils/100 WBC Auto (Bl d)Ordered By: Henry Cross on 05-09-2022 Eosinophils/100 WBC (Bld) 1.3 % . [facility] Erythrocyte distribution wid th Auto (RBC) [Ratio]Ordered By: Henry Cross on 05-09-2022 Erythrocyte distribution width (RBC) [Ratio] 17.8 % 11.9-15.3 [facility] Ethanol [Mass/volume] in Ser um or PlasmaOrdered By: Henry Cross on 05-09-2022 Ethanol [Mass/Vol] 302 mg/dL [facility] Ethanol [Mass/Vol] 0.302 % [facility] Globulin Calc (S) [Mass/Vol] Ordered By: Henry Cross on 05-09-2022 Globulin (S) [Mass/Vol] 2.8 g/dL [facility] Glucose [Mass/volume] in Ser um or PlasmaOrdered By: Henry Cross on 05-09-2022 Glucose [Mass/Vol] 85 mg/dL 70-100 [facility] Comment on above: ADA recommended refe rence rangeRandom Glucose Reference Range is dependent on time and content of last meal. Glucose of more than 200 mg/dL in a nonstressed, ambulatory subject supports the diagnosis of Diabetes Mellitus. HCG ( test) IA.rapi d Ql (U)Ordered By: Henry Cross on 05-09-2022 HCG ( test) Ql (U) Negative [facility] Hematocrit Auto (Bld) [Volum e fraction]Ordered By: Henry Cross on 05-09-2022 Hematocrit (Bld) [Volume fraction] 40.2 % 34.0-46.4 [facility] Hemoglobin [Mass/volume] in BloodOrdered By: Henry Cross on 05-09-2022 Hemoglobin (Bld) [Mass/Vol] 13.1 g/dL 11.8-15.4 [facility] Ketones Auto test strip (U) [Mass/Vol]Ordered By: Henry Cross on 05-09-2022 Ketones (U) [Mass/Vol] Trace Negative [facility] Leukocytes [#/volume] correc christelle for nucleated erythrocytes in Blood by Automated counOrdered By: Henry Cross on 05-09-2022 WBC corrected for nucl RBC Auto (Bld) [#/Vol] 6.3 10*3/uL 3.8-11.6 [facility] Lymphocytes Auto (Bld) [#/Vo l]Ordered By: Henry Cross on 05-09-2022 Lymphocytes (Bld) [#/Vol] 1.4 10*3/uL 1.00-4.8 [facility] Lymphocytes/100 WBC Auto (Bl d)Ordered By: Henry Cross on 05-09-2022 Lymphocytes/100 WBC (Bld) 22.7 % . [facility] MCH Auto (RBC) [Entitic mass ]Ordered By: Henry Cross on 05-09-2022 MCH (RBC) [Entitic mass] 29.4 pg 24.7-34.3 [facility] MCHC Auto (RBC) [Mass/Vol]Or dered By: Henry Cross on 05-09-2022 MCHC (RBC) [Mass/Vol] 32.7 g/dL 32.0-35.0 [facility] MCV Auto (RBC) [Entitic vol] Ordered By: Henry Cross on 05-09-2022 MCV (RBC) [Entitic vol] 90.0 fL 80-100 [facility] Monocyte distribution width [Entitic volume] in Blood by AutomatedOrdered By: Henry Cross on 05-09-2022 Monocyte distribution width Auto (Bld) [Entitic vol] 15.97 % 0.00-20.00 [facility] Monocytes Auto (Bld) [#/Vol] Ordered By: Henry Cross on 05-09-2022 Monocytes (Bld) [#/Vol] 0.4 10*3/uL 0.0-0.8 [facility] Monocytes/100 WBC Auto (Bld) Ordered By: Henry Cross on 05-09-2022 Monocytes/100 WBC (Bld) 6.5 % . [facility] Neutrophils Auto (Bld) [#/Vo l]Ordered By: Henry Cross on 05-09-2022 Neutrophils (Bld) [#/Vol] 4.3 10*3/uL 1.8-7.7 [facility] Neutrophils/100 WBC Auto (Bl d)Ordered By: Henry Cross on 05-09-2022 Neutrophils/100 WBC (Bld) 68.6 % . [facility] Nitrite Test strip Ql (U)Ord ered By: Henry Cross on 05-09-2022 Nitrite Ql (U) Negative Negative [facility] No Panel InformationOrdered By: Henry Cross on 05-09-2022 Estimated GFR (CKD-EPI) > 60.0 mL/Min [facility] Creatinine Clearance (Chem 114.17 [facility] Nucleated erythrocytes [Pres ence] in Blood by Automated countOrdered By: Henry Cross on 05-09-2022 Nucleated RBC Auto Ql (Bld) 0.0 /100{WBC} 0-0.5 [facility] Opiates [Presence] in Urine by Screen methodOrdered By: Henry Cross on 05-09-2022 Opiates Screen Ql (U) Negative Negative [facility] Phencyclidine Screen Ql (U)O rdered By: Henry Cross on 05-09-2022 Phencyclidine Ql (U) Negative Negative [facility] Platelet mean volume Auto (B ld) [Entitic vol]Ordered By: Henry Cross on 05-09-2022 Platelet mean volume (Bld) [Entitic vol] 6.7 fL 6.3-10.7 [facility] Platelets Auto (Bld) [#/Vol] Ordered By: Henry Cross on 05-09-2022 Platelets (Bld) [#/Vol] 330 10*3/uL 150-450 [facility] Potassium [Moles/volume] in Serum or PlasmaOrdered By: Henry Cross on 05-09-2022 Potassium [Moles/Vol] 3.9 mmol/L 3.5-5.1 [facility] Protein Auto test strip (U) [Mass/Vol]Ordered By: Henry Cross on 05-09-2022 Protein (U) [Mass/Vol] 30 mg/dL Negative [facility] Protein [Mass/volume] in Ser um or PlasmaOrdered By: Henry Cross on 05-09-2022 Protein [Mass/Vol] 7.8 g/dL 6.4-8.9 [facility] RBC Auto (Bld) [#/Vol]Ordere d By: Henry Cross on 05-09-2022 RBC (Bld) [#/Vol] 4.46 10*6/uL 3.60-5.00 [facility] Salicylates [Mass/volume] in Serum or PlasmaOrdered By: Henry Cross on 05-09-2022 Salicylates [Mass/Vol] mg/dL 15.0-30.0 [facility] Comment on above: Patients treated wit h Sulfasalazine may generate a false high result for Salicylate. Serum or plasma albumin/glob ulin mass ratioOrdered By: Henry Cross on 05-09-2022 Albumin/Globulin [Mass ratio] 1.8 {ratio} [facility] Serum or plasma anion gap de terminationOrdered By: Henry Cross on 05-09-2022 Anion gap [Moles/Vol] 18.4 mmol/L 6.0-15.0 [facility] Serum or plasma high density lipoprotein (HDL) cholesterol measurementOrdered By: Ji Smith on 05-09-2022 Cholesterol in HDL [Mass/Vol] 182 mg/dL 35-85 [facility] Comment on above: HDL CHOL ATP-III CLA SSIFICATION Cardiovascular RiskHDL > or equal to 60 mg/dL LOWHDL < 40 mg/dL HIGH Serum or plasma total choles terol/high density lipoprotein (HDL) cholesterol mass ratOrdered By: Ji Smith on 05-09-2022 Cholesterol.total/Chol esterol in HDL [Mass ratio] 1.8 {ratio} <5.0 [facility] Sodium [Moles/volume] in Ser um or PlasmaOrdered By: Henry Cross on 05-09-2022 Sodium [Moles/Vol] 141 mmol/L 136-145 [facility] Specific gravity Auto test s trip (U) [Rel density]Ordered By: Henry Cross on 05-09-2022 Specific gravity (U) [Rel density] 1.013 1.001-1.03 0 [facility] Thyrotropin [Units/volume] i n Serum or PlasmaOrdered By: Ji Smith on 05-09-2022 TSH Qn 0.80 m[IU]/L 0.45-5.33 [facility] Triglyceride [Mass/volume] i n Serum or PlasmaOrdered By: Ji Smith on 05-09-2022 Triglyceride [Mass/Vol] 107 mg/dL 0-149 [facility] Comment on above: TRIG ATP III CLASSIF ICATIONTRIG less than 150 mg/dL NormalTRIG 150-199 mg/dL Borderline highTRIG 200-500 mg/dL High TRIG greater than 500 mg/dL Very highStandard traceable to the Center for Disease Conrtrol and Prevention (CDC) test method. Urea nitrogen [Mass/volume] in Serum or PlasmaOrdered By: Henry Cross on 05-09-2022 Urea nitrogen [Mass/Vol] 11 mg/dL 7-25 [facility] Urine bacteria detection by automated methodOrdered By: Henry Cross on 05-09-2022 Bacteria Auto Ql (U) None seen None Seen [facility] Urine clarity by refractomet ry automatedOrdered By: Henry Cross on 05-09-2022 Clarity Refractometry automated (U) Clear Clear [facility] Urine glucose measurement by automated test strip (mass/volume)Ordered By: Henry Cross on 05-09-2022 Glucose Auto test strip (U) [Mass/Vol] Normal mg/dL Normal [facility] Urine hemoglobin detection b y automated test stripOrdered By: Henry Cross on 05-09-2022 Hemoglobin Auto test strip Ql (U) 1+ Negative [facility] Urine leukocyte esterase det ection by automated test stripOrdered By: Henry Cross on 05-09-2022 Leukocyte esterase Auto test strip Ql (U) 1+ Negative [facility] Urobilinogen Auto test strip (U) [Mass/Vol]Ordered By: Henry Cross on 05-09-2022 Urobilinogen (U) [Mass/Vol] Normal mg/dL Normal [facility] Vitamin D+Metabolites [Mass/ volume] in Serum or PlasmaOrdered By: Ji Smith on 05-09-2022 Vitamin D+Metabolites [Mass/Vol] 36.0 ng/mL 30-100 [facility] Comment on above: VITAMIN D STATUS 25( [place])VITAMIN D RANGE (ng/mL) Deficient <20 Insufficient 20 to <30Sufficient 30 to 100Reference: Sharmaine RANGEL,Aye MACKENZIE, Geremias YOUNG, et al. Evaluation,treatment, and prevention of vitamin D deficiency; an Endocrine Society clinical practice guideline. JCEM. 2010; 96(7):1911-30. WBC Auto (Bld) [#/Vol]Ordere d By: Henry Cross on 05-09-2022 WBC (Bld) [#/Vol] 6.3 10*3/uL 3.8-11.6 [facility] pH Auto test strip (U)Ordere d By: Henry Cross on 05-09-2022 pH (U) 5.5 [pH] 5.0-9.0 [facility] Office Visiton 12-19-2021 Follow-up visit [id number] Masood Recio 1995 F Date Provider Department Center 12/19/2021 [id number]-TBNHFICQLORIN ANTOINE [facility] None No family history on file Level of Service:49064 [place] OFFICE/OUTPT VISIT,PROCEDURE ONLY Reason for Visit and Comments: Rash [[id number]] - Itchy - painful started yesterday - Normal [facility] Progress Noteon 12-19-2021 Progress Note [facility] [address] Dept: [phone] Dept Loc: [phone] Subjective Antoinette Recio is a 26 y.o. [...] occasionally words aremis-transcribed.) Lorin Tenorio APRN - LABORATORY MECHANIC HELPER 12/19/21 [facility] CT HEAD WO CONon 03-18-2021 CT HEAD [...] by: ATIYA GREWAL Date: 2021-03-17 22:52 Normal [facility] Operative Reporton Operative Report Date of Surgery: 06/14/2020 SURGEON: Jordan Bhakta D.O. DRILLING CONTRACTOR: Nona Carrillo, TOÑO, SANTO PREOPERATIVE DIAGNOSIS: Displaced midshaft clavicle fracture, left [...] Clean Jordan Bhakta D.O. gls Dictated: 06/14/2020 #[id number] Typed: 06/15/2020 #[id number] cc: Jordan Bhakta D.O. [facility] Comment on above: Result Comment: Elec tronically Signed By: Jordan Bhakta DO\.br\Date and Time Signed: 07/16/20 20:57 EDT Coding Summary.on 06-25-2020 Coding Summary. CD:[id number] Gh0bWw +PGhlYWQ+RR2REKCuV88ztNYev A6BT5hMYO5JXUWQOQGHXS3QSW6 joYB3WMbjS0TgdwIq NvvoaAQoMP92TUb2VJQ9tKjmFM ifvR9ejFLtJ3l8ZnRiPO30lY04 GCgeWYJxHkZ4XyCxqoiyaBIs Y8yxTrBblOZzPpd+PHRhYmxlIH wcKTOlXLmfUYVdNvNozOqtIW2y Jl2zORBxGSIzrByesRBmOqCn s9tnAWLiPIzrHK3mtYmyX9ReuL X1YTAru1r9Gk03eQZ+PHRkIHN0 nEhhDTrip812JyRrb3hhTFL8 mQZzTLopCEW5V19yo8S7WMToNJ XcKQM7jHJ6lY9hhNahnjrbO8Ho aTMbIqG3RWQ6uFGuoW7wuRxy syrueP3gBbr+R10AKV4ASWBBKY 9XRkf2Y2MpZsuqvZH+WR55DZMc KF20tOValYBwi7mexFn3GrQu LMLsZAE0aDnvHRtaz1BqOKWfV6 9lcWFsz6S0BOWkhYzknYWeTlJq tUP4oN3yPXhchcytp1pilgae Tbpdl4cwpa68qW49X00gKKztKL SkYHJ7YLDgMXQpfXfbny0uzY0e Ii8+VKykz9uey1orlBr0DzXk NYGkouUkhHqyBJT6j2CuDj47F9 HpsKyqb9OaLxj9jh16fPDzq4E2 iID4YKywCVOqtC3tULvyKdO4 WBRhWtZmzK66eCKbFVzcVm0yvQ ilwZsnPN4kZCUftpgmBTJfoR2r XWMtpIZukDluFQ2qBBNtrnmw m217UbLlYNV3RVPpsZMcU6ZzrD 1wOmGuVJYqGOBwG2UuiFNgFFeo U391FVpjYhU1EYMmooFgQ3Zd PIOztDbnDaR5x4W6Dx2Bp0Xsix joKTS9LKgvTJA4EgD3MsGoIwA9 C2JrFbz1TLYigFeqTN6lT3Xk ESPjdrvpwzmsiSS6QGEoAWRalV 27fREgFWqkWa8fb3D4e907OHHx LHQdaO96Jz7bqBcgOMJjzFON rX5oflzjl3pbetzeMzQpEXAiWE k0YDq0ONUejGhuZqYvNAG4WgG2 UQY5uVAknA5fwLizgramoT3n Oyc+X81imF3aKRO1YNT3yifvBT UgsdRmMS91UE57Q3HoSckelDBp bGU+KJUaduFkyAiaCH4mKnMr w2oij9VcYExpY0QnMFSrGOevNy q3YOEzEDG6uZA9eB2vMXPpIHzt e9D1aCB6B5VpsaNiyc2ex4wd VROqENfaU25xoNNgq2E7MWUfrQ S2KHPqqPfpRyNxkG10Rly+PGNv kNmqr4NwZxteg1dyl3ticCs2 BsOhJXMcemDjaGniNVM1f6ZfGb 79O57oSDzsDVAiFQVyBZWgBXPk eMbuxs3jlX4bAk4+PGNvbCB3 gPR3fH9mNOBhWfG6OWtoY176Ac TmlBTlEnaur1yte0lviBi7FyJe QUGpofDfwJtxPCA2x6LlPr43 P88fJHylXSLvNYWoKZDbCLFmaH ujbz4glT0rYt7+SY8vp2hivh25 rV19nRA+KVAzZHD2rHrdLVrq RNAizZ7jNHftGcL9VHWoFsFfiO 70iXYyDTnvUt8gjWqugMpxGO9i OINzwfybs356PaXpi7liVJUm xRStWBkiSLU1X39fh4N7QIHwZU SmSUQ7pYS1vJ1ulNqmdhhdtHOt uGtyjdDshUtvJXfrYFiwK500 IHRvcDsnPlBhdGllbnQgTmFtZT u7U1BcTli3GJRryTbjUM1miBFz OIutFd0ycKgtfOzrND8bVDIw cqklo709ItBym0ugJOKvvAAcQK ezAQS5Z24fp3L3HUFbVXHfDFZ2 tQA3xK3kyPtnzwwcaBEsyGhp vtMbyNauDCuiLFmoW358WGNceX gqYwNkhgTaZBUnjKM4SK52WI42 wZKgv0T1nZS7E9QiDFBaskhx ggfbkYI5TKPdFNPxhN34Ul8fpF acZz6mIXZfOBU3MEIzhWReR1Dv sS0aCqLcZDWvRKIlK9BpxHIj JFalF265WBbbIuQ9AQXimhIqH7 RkTWFvzWqjRlE5x6Z5Kx4LZ2B6 XP67TZ18vQFgk2F9jSI9R0Yc NTEizrmmdkifwXM1HPEzSSHmeT 46Wl4dzTclHm3nELBsOAJ6GHUw oOToZ4EbcF1gAfOeXYYjJOEl P4YvvEQyVVsvK286HJuhCqJ9PF TxizGqY0VaTRLmlOmbIaN4n1E5 Kb8BXBt3PX92VG35cHVrx1B9 mQV2U5AnJDDpuhjepbbtkRJ0FI IzLCYaoW33Yb9ooNfuXz6pHPEv PWF0AAYotOHeU9GiyF4wEiGa SFKaBFWsW5DahOMkSEnlO481MM mhLzZ8PVPilcJuS7NrZLFbzCye BbM1l0D1Cn8RSQAwJQ78PTO5 oYN3UP75YB15A2IeIrwoxJTfoF U+PHRhYmxlIHdpZHRoPScxMDAl HdQhyQhdQP3sXh8fFKHkNYEc rKeydBUcCqHle7joREHrQImcQP 0vbWleA4TauXX2IYUzk9w0Jz40 D45hX5EinHE+BGCkaXT0pMM3 mL3fVpQaHvK2RRwaT970HhYngW CmLhwxh4abj1zszRa7PeE9HTUs spRojLecCAD5x4BjEp30B61m IHdpZHRoPSIxNSUiIHZhbGlnbj 4utR4oOf8+CCSojGO3pQB3yG7r JuLjEyI0VJqhU841HeUxwIOk Rdaof4ejm6enrOo6OpHnJCPdqv IlwOylOXB2n3KyFd40F9NffSuw r5OdTns2uh40wGImy0P3zWU1 K4AbPTDeqcolrJLjmJqeSQ1cBZ UtywahAPDviF2kNOEhD5m9StEe VvA9YHauH2LbjkT0WMQndOIz JRvsUBW4W47jw3K0BATbHFAjOK K5iJY5sC0tfLwzesngrSCtaNka ykRgkKpuCZkrATqhZ300NIIj iSemZHPfgD6zIRNfyHEjcOriRD 5gJNBraltrKmGEHfEENBvbHB2J UkFOREEgRjwvdGQ+PHRkIHN0 xEnmOOqpISKxgL2bXZIsH7u0Ts DaPlM6QUsaM2EkZAGrblzkGq24 kY3iQiIjJyO9RSmiE0KfwvQ5 YGEhiFAyJQtuESC0G65xi9I7YG KpXLLbLWM6dWK3wU9irVcwqngb bGVmdDsgdmVydGljYWwtYWxp S443LDNzoZidCzSnMfYaMtD1QI K2H4EpFci3QVPltLcpKL0ivSYt ATehFl4deYnclSiyZE2oCNWw mtizHVRndH3xNPExgHIdxFsgRS 2aALIkyzxil260XwRbMXP2GUUp hOOhI0OzqJ0gMmIhUKHeKIUu J9KdcFMjARtfY733VWdhAnE3NB EoowJsS1XaQMUenFprDuC9a6W8 Wq8zSSLGEIUvtyhxwOQ+PHRk AYT1iIhcJBhqDHBfbX5cUVDqR5 f2IkOvUtI4ALwxI3YzQHNhifux Wh72sW0uQfPpKlP1GQliY0Yf pcH5PJMtaAEtPJepZNC0X09tr8 W1BHToIFDlBSZ9qQQ9rU8yhMvy bjogbGVmdDsgdmVydGljYWwt IPlzB539LPXhrEhcIjUytKRjHG wvdGQ+RIPpDQO6hAxcMBwmNPTz pD7tPSRbF3k9VsDdDpW5SCfb A7AzULCsygtiEz55mZ9rGbUxEc C1PRosX1XonhI1SDPfsHFyUMog PIH4Q83oc6P3GIUvRKTmOTL3 xHZ9uP9uuAqpbdgroDGysBcsjm JotRqkKNxzTCghJ337MWXlaKyu CcOcRxJpMJFeenvtR7JkPQAY TBkaT2UzI6YleKlbhAC+PC90cj 84U1RzWtrfYti8OPCgEKA8lGK5 hY7rESArPDdlq5M8qQY4T8Bq qnVhii9vp1guZIOqMQdeP26czO Oqs0I7SJKoxUL7XZVhwAccWiLk hR42Rwf+GXMsbWggj6TcLjsd v3kkq1kkaCj7DrMsVNXqvgUynW gsTEZ2f7PwQj44J22gHPvsKOSj QQMsHRYxOXXaeLqvyv0dhF6x Ii8+GKNnnFJ4yYJ3oL6hVlXfYg B7XFfdD793CaNneXVjAerig1pn h8mqcJf2RnPrEDGepsDaxIwo LZI2o7SpOq08A2VkwVkqr7ItRr j8mp59tKGjd1W0nEM1Y9LsOKGz udxrdPPhrNqjTY6hOBBaxmud FAVobG3dYEYnN4i7MhOcCiY8NH inM7PwcmT3QHKduAOnCZVviQBG fR9grzfoa2wbphziRlBzPBGu RAr8ZDg6ZMJzdBlnHtEdVJS9Rc V8GAF9mNDblW2ocMzjqwdbeB7w Oyc+ZKn3f2kagRRkYA8mcEH7 ZW48VR83lGVhx5J8sAL2Y9MxRW ZuexwhzagxvTP8ZJGeIHMfbR19 Jg4vtErgPv7iZGWnUGL1OANu oKJbL6EnaD6kOfCrERPwWAEeM9 QvpIRvDQzvT242QRyySzF9XMYp eeUeD1VwJIIhkGnmTnY5z1F3 Zb0DJD36GO78MQ45dSKrv1E2bI Z6T8NtOVYokerifuuhpAX1RYTm FUOwoE35Ad1rxXbqWz7lCQCc SIZ0FQEpmMIaU7ZohO0nGvTqLX SsRSPyJ3MskAZsNRpsG404MMnw OoH9IFWccyOnA7VgZKNfqOvj BqC1v8M4Ph2OEm28CQ30ID37yO Hrb4R7rCX7A0UnHTSlzrcasvwc bMR8ILVwWTNbdB61Oe4epAbh My8yCVKtUUR1BWJuwZCeH9IibW 9uLqHlNYJkFFOwI6VfgLHmNYzg Q199KAxiGqK5AMBsezExR9In CDRxsYatDkX1n6J9Sf6YZCygdu i8Q5SkObzxnDG+XI07MFSpUM03 fMJloGNku9ribGw6GtLjUPSu IHN0 (more content not included)... Normal [facility] Coding Summary.on 06-24-2020 Coding Summary. CD:[id number] Gh0bWw +PGhlYWQ+UW6KVTIaI51naZBif M8QT6eFVX4BRAQPEZADCS4MLD6 fwMN8ADxwI6RfsrKw IyggdEUpDW62KXz8LSK2aQrqKQ gvbH7jzVRtX6j3LeLgCT82jY44 RAclGONkZbS6XmRnisuaxJSx I7hvKrTjyQElOst+PHRhYmxlIH kyNGRzLZioKDRfYuGxxAleRZ9z Qe1dISBtFKNpxOsrlOTxZyKj g7trUSUfRZisMQ7dnNodW3TcxI J3EUHha1z5Yn00sSH+PHRkIHN0 xAtwERpdp125OrTgd2ugNKH0 bBDuHQpoLAN8D14uj9Q5MCZaRD FaXYZ7zUK2hB6chFxlvcjqJ4Vl lKFrJpQ0IZP6rKDtaO6ciSbl vpzufU0oCqq+Q94WBG0SEJAQIV 9EOik1L5IzNzlioYB+JL56XCAc OS78rLYsiEBll4gdyKa3WxQc SSHtZIB3eQhpBNivr1BxASTbK8 3xyKDgr3A7BUUwzNmlyKQeTbZi mPE3qG0bKSyizemje7wqsytn Wurlr3vcyh50fL01G01gOOdsOJ AsBUU2JZBpDYSefHthpi7qsA3s Ii8+DUijz8qqu0qjrJo6MgUf MNSapwZlnBdbSHI3y1DeCr45E5 JorXipn8EvOjj7rx54hETgg6B2 jQG7UYatUSByrF7lJDwfMvR2 KHTuLuYjbL68gHNiBSyxUw7ytX ophNylVE8vDRWlxrmtHBXwlW8y TWGtzUJwtPkdDN9mSKObmesv n832NiEtLPY1ZPEgsKKpA4EagT 4xDlTjIKMjZHYdH4XmtGAaAUyr Y021ZCizVlD8UXSxdkPdM5To MZKftUevAsY7y9Q8Gv9Ky8Znoa shUIM8DHlpFVE0XdH8LdNmVkE9 Q9VnRfy1CTEhkAvcFH9oH9Gx ZOYwkhladxjpjMM6OARqMFPqzO 77iFZeSIimHs2yf2E9j139XIDy HFLtwG47Cx7cgBuyGDAxnKIV aJ4qisedb3jcwgtzLkRlNBEoLC k0LFx0BLJwiVltSzAaZSH9EpC6 JJY9vVCcfJ3fxJrdclytfC0l Oyc+R25srK0vZKK1FQF8duzyNJ MtbqJuIQ25PT54J4GdKyqatMDu bGU+CUAkpsMciDdbAV4wJzJx q4sul3VtKYsgH4HaXKShFRacXu o6REBcCSP5yKB6dO9rZYVsXXkt o7P1tHO7M7QpsdYngi4gd0jg QMAqQWljA60zcKXry9H8ANPpbU J0VBYhpJisRlQzjX60Ytp+PGNv iMgvv9IkVnzii7gdg0looAg4 BpAuYKUsfpQjdZtoVUM9h7KdUo 52S49pFDwjIXWqNMQwQHFuAJUg aRvlvu2xwB5sXj4+PGNvbCB3 fAO8mJ7nBTKwOgE0UPwoJ278Un ErjNWwQnlih2gav2affVu1EsZk NCHgytLffEodQCJ7q8UkJq49 R27zLCikUEPmYZHeDPJkFZVasW lqlr4xyS7yRb5+MX5ea8inuv92 yW51bUT+WYFuZIF8wCtwUCef BTKtgA7sKUitGyV8FTMmLiUfbI 57jKFaMJtrJb5nnMsyzVhdTE7j OZIzpbltq082HwFmc3wmUXNc qWHyKMutPFF9R05ig9C0CLNmVO GoCSP7pSH6mO6csPddbawxiCTz oUogfmMuyMisJPkgCIogZ607 IHRvcDsnPlBhdGllbnQgTmFtZT a2P9OtJpr9KUFfjLigJU4ohREe XKxmGv1hiEuhpYhkMP0xNABg dkyvl404OxSej8smKXIqyXEcED ekMQL9Z39qt8H5YCZhSWCuXMR9 qFR9yH4ojEbebkmfeOYbxGni quYclVtnCDrqGCbgE239FBAjuP bcLkLxdyIdAAPsaXN4KK50MI55 aWZln9A4hRY0C9LvLVUjsplc gbfxaND3FQVxAPAeaV29Dd8qdT roHo4eQWCvZBD0EWMetAWhU1Ye rN8sUnRyMHWeABTgH3DoxBGs XKgpB852HWhlGkH0WSDgpdXsT6 LlPZSdxJafYyL4k8Y1Nm7CJ9F7 JM52OQ31hUWfo6L0oMK8L9Fx LCUqqpcxbvdzbZX1RKMtOOAbyF 24Iv0ybZbbYr6yGNSbYMV1ROOk zEVwG9VscV0qApHrBFUvFYZp H6DofDSvJXcpL643PFohYeA6KO WcdxCaS8SqPCGwvTiwQjP3l1Q4 Ia6VIPe2PW26BX06vVXlf4Z8 yKU8Q6CbMBJatnsgleixfKN8NR VxFAVhyF43Wd1umLcyVe0qTQFr CZD2YCFroIBnV6JliB9pEpVo GFTgPLJlV9KedWLhXNyzE344UA cnKoD4HJJixkYcS4CiBPIihLfq PfO4w1A9Mv8QPSDkLC16XIQ0 zJO3AO32QO26L6OgSlesgTHzdS U+PHRhYmxlIHdpZHRoPScxMDAl NpPhwSweFA9qPc8wOUCjBQOd wLwhmDKaOiIvh5rfEMDjKIjiTL 5zsYxqE8CntWN9EUCjf2p5Vn41 G05dV3JsbGK+KUPgbQU7hOB0 cF7pYhKmZkQ7MManD556PxMoeC HfGctnn0lip2gtlBx3XaX2EIEc ccKtsUshKDO6s3BsDm21K33e IHdpZHRoPSIxNSUiIHZhbGlnbj 3ejJ9mLv7+HUOyxLZ9iZC6pU6y BgOgHuR1FWnmM642OsErrZVs Xrcnc0qhb5dhbLn7IeVeILHryt MhaJtsWOT9k0NtCl55S4QkpIuz g1MqVwx9be84hMMij2P3hFC5 E6RkFHIeldkrxBHooIhbPH1gWF VrhlplBWUhjU4eKPEnK3u7QeHn UaL5STuxW7FkytF4ZYGkzRDb VEezHLB4P01tt4F5YCTxIUHeKD O6gNV8sV4llSrzrypzgDAviLwv btUbdVhkRDwqTFrrD697NKKd zMmyLTQjaX0wSLAykKRviIezCS 4mEQKtnskzAaCSKuQCZMwmDY0I UkFOREEgRjwvdGQ+PHRkIHN0 nRrjPWwaJSLmtU9lXGSrV8i8Qd WrBjB6TLthH2AdFXGhlujwKu24 rU6bJeEqGkP3JCghB9RqpxQ2 RBHddYBjIFglGRJ1N12kc5J5QO RzRBDlQOO0mGZ7oL1ykBjuzrlw bGVmdDsgdmVydGljYWwtYWxp T114JQVrjHylExGgOjSbRkT5SU I7Z8TsPqa2MFGmdOpvYO2rtNOl ZPjxUa2hyPothRlzDK4oUCZg cnghAPIjaW9vWLMbgWBnmNvmZU 6uLEGkwlgji535VkHxFQV6PPOp kGVgZ7YkuS9xNfPmBOFhQMRq I6WlqDBfDHalB447RJuhQqZ1VR HxmsPiN1HfCOFybXmeRnJ7s0W5 Rs2uTIQDORNmqbuvoSP+PHRk SMT3tZgcSVvcDAMkqQ3qDVPvH9 w0AfElBpF4HIbiH9ViCRMlgzyq Kl11vE3cXnIoHjA1UFheO8Ch ojB4RTXvlLDjTWthQTH2P67en6 F7FDUwCMFwMCK1iWB1fT0gySpf bjogbGVmdDsgdmVydGljYWwt BRauD934VKZmgSlwRxFrgEEfMX wvdGQ+MVHdNTD7oExoFFktVNOn uO5sZORwW4u4CeYfClT4XVlj L3QjONIvhzzbLw97wT3uHqDcMw Q3RInxY4IbzcV3GXWvnAXaCNfp BJM4C26ea7Q1MRWzNYRxUIQ8 dII2tY8lwOnhocekjBWzmLctgb RykHppQOucJCqgB204UHNeqByo Us10xOFyyLdgfuN8J8VmDdhz dHI+RP38CGOsEG10xFYbvOPcf4 zwaZs0JoOzTNZsTEO4hPjdVJla g5AjKFQsY35fuEJbw4G2NOVf gNfzxBMaZaBvwVV3kN8rOGufif ria0deqgixPaptl8hvvp21uE38 J17rJHomSUYwFIKmELKfDTTe xTlzir1qwG3gAq2+EAOuuMM3bF H1pQ7hSlNeCtO2MCohV184GyJm cSPfPxjlr5hec0kzbAk7BvOw SAJmsuDwoQoeHKU7f9MnLj92K7 9sIHdpZHRoPSIyMCUiIHZhbGln aq8qtT0iLn9+PX4qr3zbco46 xY12dKQ+VPVnICM0aXydSMomSY RfvL9uJRzbPlY7NXIlJgHxgM15 iUWaQZdmXs0rrGcfsZyqJO4p FFBdlfwma607SsGen7aiZTQbbG CrTHmvCAJ7L24vf5X5PIPuTZCj BXY6nNV3fD4bqQmzuzoijGHq kTpceoHdiWrtLWctDYitD016XE WnpUkwDiSjtICmM6vlgxWKJO4u OjwvdGQ+XCBuCOY9lXqtVDcv YQXtgC7fMXYxV9t0VgPvCxN9HN uiZ2UlbgQ4HBWtzHYoOPFffYVQ fO4oofvdr6ieycpgWtHpJYOq VBg2QHi1OGVzcNgwYaTzYIO0Uo S8WBO2tQPzpA7rsNnkjvwowM9s Oyc+RklOOjwvdGQ+PHRkIHN0 jYdeLExuAEPlyM8sIAUnO5w2Wk CxBjR5RDqlC1AlguP5XZJpwSLb ZYXgnXIBgQ5xggjpl4szupdj SkNmHJVyIAq9GXv1QIRoeZasKy CtDHB8SvM8WUN6nCHknY6maFdm lmxqjC0iNjt+TVJOOjwvdGQ+ MZXsZWD9qXnvNGtyBLQqkU7vRF IdE5r8NmVtMmD8RCcaH7JrgdD0 BGKwmWAwSQHqcQXIwN8vgfzd e3adqgciZhFfNEBjYIy1AGp4ZH FtdGlrLuAdWNS6RwK3NOR0iTAr vX3vkYemafhtoJ7oRmn+UGF5 JYL0MY51JI93T3ViXcqibSKhbB U+PHRhYmxlIHdpZHRoPScxMDAl AyZbaIwjFO7tTi3vVELsBYBu bGxh (more content not included)... Normal [facility] IntraOperative Documentson 0 06-22-2020 IntraOperative Documents [id number]#1.00CD:127 Normal [facility] Main OR Intraoperative Recor don 06-20-2020 Main OR Intraoperative Record IntraOp Document Type FT Summary Primary Physician: Jordan Bhakta DO Finalized Date/Time: 06/20/20 12:56:01 Pt. Name: ANTOINETTE RECIO/Sex: 1995 Female Med Rec #: [id number] Physician: Jordan Bhakta DO Financial #: [id number] Pt. Type: A Room/Bed: [place] [address] Admit/Disch: 06/14/20 15:28:52 - 06/14/20 21:05:00 Institution: [...] UP TO BLOCK ROOM BY EVERETTE BLAIR. 165 BLOCK TIMEOUT PERFORMED WITH DR GRAVES AND EVERETTE BLAIR PRESENT. HR 82 SPO2 100% ON ROOM AIR. 1700 START OF BLOCK. 1708 END OF BLOCK. PATIENT TOLERATED WELL. 170 PATIENT TRANSPORTED VIA CART ALL RAILS UP TO OR SUITE BY EVERETTE BLAIR. EVERETTE BLAIR 06/20/20 chart opened for charge review per Reid Friend RN. [place] Case Attendance FT Entry 1 Entry 2 Entry 3 Case Attendee Star BANEGAS DO, Godfrey Bhakta DO, Jordan Carrillo RN, CNOR, Nona Role Performed Anesthesiologist of Surgeon - Primary UNIX SYSTEM ADMINISTRATOR Record Time In 06/14/20 17:11:00 06/14/20 17:11:00 06/14/20 17:11:00 Time Out 06/14/20 19:10:00 06/14/20 19:10:00 06/14/20 19:10:00 Procedure CLAVICULAR FRACTURE CLAVICULAR FRACTURE CLAVICULAR FRACTURE ORIF(Left) ORIF(Left) ORIF(Left) Comments GOLD CALL STUDENT - SCRUBBED IN Last Modified By: Shreya RN, Alycia Cash RN, Alycia Yin RN 06/14/20 19:14:30 06/14/20 19:14:30 06/14/20 19:14:30 Entry 4 Entry 5 Entry 6 Case Attendee Julian SARGENT, Jhonny Cash RN, Isabella Johnson Role Performed Scrub - Primary Dramatic Agent - Primary Hand Tool Lapper Time In 06/14/20 17:11:00 06/14/20 17:11:00 06/14/20 [...] Antibiotic Yes Time Out Godfrey Graves JR, DO J, Jordan Bhakta DO, Gerardo RN, Nona BLANCHARD Barker BANQUET BARTENDER, Jhonny Mathew, Alycia Cash RN Time Out Complete 06/14/20 17:45:00 Outcomes Met? [...] 1 - Clean Last Modified By: Alycia aCsh RN 06/14/20 19:07:25 General Case Data FT [...] and sympto (more content not included)... Normal [facility] Operative Reporton Operative Report Date of [...] Godfrey Graves Jr., D.O. gls Dictated: 06/14/2020 #[id number] Typed: 06/15/2020 #[id number] cc: Godfrey Graves Jr., D.O. [facility] Comment on above: Result Comment: Elec tronically Signed By: Godfrey Graves JR, DO\Date and Time Signed: 06/18/20 09:48 EDT Postoperative Documentson Postoperative Documents [id number]#1.00CD:127 [facility] Progress Note-Physicianon Progress Note-Physician Patient: ANTOINETTE RECIO Age: 25 years Sex: Female : 1995 Associated Diagnoses: None Author: Gofdrey Graves JR, DO Postoperative Information Post Operative Note: Post Anesthesia Care Unit. Anesthetic utilized: General, Monitored anesthesia care. Health Status Allergies: Allergic Reactions (Selected) Severity Not Documented Azithromycin- Tachycardia. Current medications: (Selected) Prescriptions Prescribed Colace 100 mg Cap: 100 mg = 1 cap(s), Oral, BID, PRN for constipation, # 20 cap(s), Refills(s) 0, Pharmacy: [facility], 165.1, cm, 06/14/20 15:51:00 EDT, Height/Length Dosing, 74.6, kg, 06/14/20 15:51:00 EDT, Weight Dosing Percocet 325 mg-5 mg Tab: See Instructions, as needed for pain, 40 tab(s), Refill(s) 0, 1-2 tab(s) Oral q4hr, [facility], 165.1, cm, 06/14/20 15:51:00 EDT, Height/Length Dosing, 74.6, kg, 06/14/20 15:51:00 EDT, Weight Dosing naproxen 500 mg Tab: 500 mg = 1 tab(s), Oral, BID, Take one tab by mouth two times a day, # 14 tab(s), Refills(s) 0 naproxen 500 mg Tab: 500 mg = 1 tab(s), Oral, BID, with food, # 60 tab(s), Refills(s) 0, Pharmacy: [facility], 165.1, cm, 06/14/20 15:51:00 EDT, Height/Length Dosing, 74.6, kg, 06/14/20 15:51:00 EDT, Weight Dosing Problem list: All Problems Clavicle fracture / SNOMED CT 79426216 / Confirmed left Physical Examination Intake and Output Denies significant n/v and is tolerating p.o. No qualifying data available Respiratory: Adequate air exchange with sabianist of preoperative function.. Cardiovascular: Cardiovascular function is stable and has returned to preoperative levels.. Neurologic: Pt has returned to preoperative baseline.. Review / Management Condition: Stable. Assessment Anesthetic outcome No anesthetic complications noted. Plan Transfer/ Discharge: Patient can be discharged from PACU when criteria met. Condition good. Normal [facility] Comment on above: Result Comment: Elec tronically [...] data available Respiratory: Adequate air exchange with sabianist of preoperative function.. Cardiovascular: Cardiovascular function is stable and has returned to preoperative levels.. Neurologic: Pt has returned to preoperative baseline.. Review / Management Condition: Stable. Assessment Anesthetic outcome No anesthetic complications noted. Plan Transfer/ Discharge: Patient can be discharged from PACU when criteria met. Condition good. Normal [facility] Comment on above: Result Comment: Elec tronically Signed By: Godfrey Graves JR, DO XR Clavicle Lefton XR Clavicle Left Exam Date/Time: 06/14/2020 20:16 EDT Reason for Exam: Fracture Report IMPRESSION: STATUS POST ORIF FRACTURE LEFT CLAVICLE. CLINICAL HISTORY: Fracture. COMMENT: 2 limited tuztq-qb-coyk C-arm images were obtained in the OR. [...] Radiation Dose: Ka,r in mGy = 3.7 [facility] Consent for Anesthesiaon Consent for Anesthesia [id number]#1.00CD:127 [facility] Discharge Instructionson Discharge Instructions [id number]#1.00CD:127 [facility] IntraOperative Documentson 0 06-15-2020 IntraOperative Documents [id number]#1.00CD:127 [facility] IntraOperative Documents [id number]#1.00CD:127 [facility] Preoperative Documentson Preoperative Documents [id number]#1.00CD:127 Normal [facility] COVID-19 ([facility])on 06-14-2020 SARS-CoV-2 (COVID-19) RNA AIDEE+probe Ql (Unsp spec) Not detected Normal Not Detected [facility] Comment on above: Result Comment: This test result should be correlated with clinical presentations and medical history by a healthcare provider to determine its clinical significance. This assay was performed by a reverse transcriptase real-time polymerase chain reaction (rt PCR) method on the [employer] system. This test has been authorized only [...] or revoked sooner. Performed By: #### 2 [id number] ####[place] [id number] SARS-CoV-2 (COVID-19) RNA AIDEE+probe Ql (Unsp spec) Pass Normal Pass [facility] Comment on above: Performed By: #### 2 [id number] ####[place] [id number] Specimen source Nom (Unsp spec) Nasal Normal [facility] Comment on above: Performed By: #### 2 [id number] ####[place] [id number] Coding Summary.on 06-14-2020 Coding Summary. CD:[id number]:[id number] Gh0bWw +PGhlYWQ+WR4RDBVnY45epRWhn Z2UU1nYLK4DVRBPLEUVUC4YJI3 ycXU2DNtjB5FsyvQy CvbkyFYsFX71VSo0QND8vUjcXD jtsO7rhWRtZ4t2BjNwIY96iD06 NKhbRUNqVnM9AmUkgsimyEXz Y5nzYoSksOKqNvs+PHRhYmxlIH lyQWNvQBuuYYMmGpOigEwzRV9w Gg6zLSPfQGDtmPwysBEeIwQl x7voUMBcTWyiRW9pyUqlR3VdjZ N8ASYmw7v1Qd40dEG+PHRkIHN0 qOrfWOpre425SjXsd8bqYYP9 bJQjBBhgGLK1H08tm2E6YZLkQB TjHWO1nQX9rJ2viYhwlvwcA9Zq oLBnTlJ6RQI8pJTgkE1ozYec vwgweO1rTpd+J15GFZ5HVJVGNH 2WJcl8Y6ZyUolzeWA+BL89SIAf LH39cJJljCKaq5snqFb5DtOy QPPeWHZ5jZadVSkqi9IyMCRgN1 5qgCYdf9K5BNEacUpasSMeKfPm fKR7aZ3dKPummzpvs5bcafsp Sygot1vfca49wJ94J10cJTcrWR MoCHI4TAEcNXFttGbwiw1nnH9m Ii8+JRehu6dgb9lycWa7YtEp EBOdbfGhiWayXEE0z8HjXj03I0 DrdGire7EkZeh5ne15pNMro0U2 cIO7KBtoWGSozW3oXIksBvS0 ONGqTuGyoQ84nEYqRIqpXt0beZ btpTnhEL4vHTSxncexCCOqvM5r NXWplNVquGvhTO1jSUBsajyr b087PdBuLFG4RYAuzQSlX9LmzP 6dBrKsPVBhYNKiX1DfvMLjYPak D640ZHieCgH3GHLypiBmO6Nw UAGrwNsyWeI0i0F0Rd3Uw4Vwfd hfJYF1FPctSOT9SmM3OeRlLrW2 C8ZgOpv9UZKzaBlnOC9qN9Vd YQIjsqtexypnvKI8BKLdLTRwjM 62pYBbCLwuRb3cj8B6z146WUWr NXJolN60Jr9tdYqdNHTtbDSS nS2twqlxy4gnqvihXtXiNBLnNA g0ECx8KZHadVdyVhMhBEW6HqP2 ZGW0yPBzxE3amVimficguE6m Oyc+S76nuO1eDEO7LGQ2wwyjWA GkjxNsYI53PL50X6RpOmmcoBRz bGU+QXSsptLhnVngVO5kFpIs n6zad6IsRFowP8XxWYSrTBygHo m7VDJiWHN8oPP1iI9hWCEzOVod d5K3mZW5D5RlzbChxq3am4dd RYLzYEieO90pdLZdr2Z1KVBhkN F3MSNrbHvzYlKvrM69Yir+PGNv eDkjh5ZuHogpn8vak1vzzTe7 XjLcMBIukaHtwYbsOHL9x2GgGe 35S38tRQbuKWHjTIXoXOMnMHKe vZrgbl2dsG1jXq5+PGNvbCB3 jJZ8nG9oUPMfMjZ1MEvwX140Mp ImfSKuVvity9pqy1zjlOt2CvGl LLCjnsRwiYwdSNK4j4NjIm59 O75uFPqqHSLaVRCcDFEvXXTseE yetc8dqG0xIr7+AR6sb0ydka87 hN25aAW+NFHdSGK5cUzvCXgb IOQfrK3eSXtgTiS2JVPnPtComK 71mSZiAKgpWu8wkVyhyXwsQK6v BHXakhsgf013ShXik9xsZJDp mHAxUUwnENK2E35nq3L4VQUmFU MrFIR9nFH6gW4urAajgarimDNy aZoburSnxKvfQMkeVBetS340 IHRvcDsnPlBhdGllbnQgTmFtZT i1E2OdSzp7INGogXbnBE1ejOVj BAqrNf6shJqhqAywBB6rOYXh aptni460FzIbe6swTERghKVpAI xaEXE9E32pw9Z5IKCmWTDwAWX0 gQE3xG7kkVmntxiwjSSqbPnb woMmiUpsXZkjISnfY585APBupO gxTlQdfxMgIBOpcFU4MH60VN60 fRTaz6P6tDV8R0ZvFYVrbovc tkdtoDK9LNJmPSYcuD83Xl8vcQ nmAe8dNBSjGNH9KFXpwMGhV5Th fP3vAyVyLNLcDXCjL7DlsWAf NHkgC777GTulRiK4CBDcgrVeA5 LcCHIdpWmjNoF4w1X9Ve6JV4W2 FM80MY24tJYmk7D4vUB6P5Jg YJZgzionbrwshJD6PEIjQJErwJ 38Rd8cuSblGz0qUWDuVMC3NIWe lNXrG4CpyY7kFoBlBQPfYWVx D4ZpsRMoJAlmJ829MYpoUhB7ZX AdtbFoE6SeBERbvBbsJiJ9i4T6 Lc8PKOw2LW81QL62pOYje8Q3 uBL6S3OzITAtyyoujgxkqMK6QL TkRRVnkY83Hh5yrOikQh7yZJUu PPT8NMEqpRGyD2TenX7jGgOk YXEdPGNpH3GffJJhTAyeW413SH vpBsA9NPVmnwVrF9DtTPVmhCqn GvD6z9Q7Fn2FNWQaMR08WFY6 oVH9EK42XQ55O1BeTlolePWcwF U+PHRhYmxlIHdpZHRoPScxMDAl SrNpzSptIH6zGx2bDEWaEMUv vMjovABxZbJdi5vhJJChKUmjKS 0axKhjO6RjuNZ3OBPfl4h6Qy39 T27bM2JidDA+CQAtyYU7eHE3 eD8fCcLfZyH1KKhtH716GwDpfU TkRkymm6tes2ahzEl8ZxZ5APCw tiZolKvfYRH8d3YsUi19F02f IHdpZHRoPSIxNSUiIHZhbGlnbj 2xuU1oYm9+DMFqeUQ0wSB5mI6k OfNmIuN4RCjwS982SmVtzLRp Usuwo3qxz3mvyJq3VzAdRWBitt RsdZwaWEL2r2PdUn66O1ZkbAlk k8MqNth4jd16tDDjy9V1bME5 F0OwAGJjyqilvNTisXinCU6uWH DikmqoYWCsrZ2kSVLbS9b4JxYi NvD6YSqaP1SxhtI1GDZwyJLz YQlrYMR5R60jc2Q7WEZaYRWvQU W3rSK2vM8qrCqlipuhfJKveDul vmRsjAsrEMktUBzpN658BAUr kCjmVDQdaG3qFPWgwCDvvNldSO 9wTRGurafkXdBNBlQIKZqeLC9G UkFOREEgRjwvdGQ+PHRkIHN0 fKgbTNquVHWraE7pYKFnO6m9Me IpWeZ4HCjvF4FnNVCdakpaNx27 uK0dDrNyEtN3UGbnO5XmdpL6 FVJpvCAjOVhyCEM4H92ra3N8MS YsITCaLRK7qFO4kM8uhNjxiyok bGVmdDsgdmVydGljYWwtYWxp U645VRAjoYolQgLeAuOuHcB5PP M1Z9LwLis2ASTvoWziJI8zwJGc QEnnKx2rvPtocPxqKU3tBNRa hxvjEAHqxA3sELZudVUpzVceEU 4hUQDadgihb167DhZrTCR4SZSo zPMjI3BzlN4gSbSqWTFoOIKw F3HfuIQuQFeiC736RNlaMlM8IG VmpmIgD2QfOHDomTuaHyX5p6F7 On1pUKZCDAFydaubuGD+PHRk XWF5vOhzVPheTFFdxC6jQXOhY8 l7EbJuCmP0YRcsB9HvGBHvvywu My48sK2mRcIeNxY0LGbjQ9Ob ptS9DFGvgZCvDXjnDGC9F48uf6 U1IBCbBPDaEZS0yWT4mQ7ooQyw bjogbGVmdDsgdmVydGljYWwt AUlnZ002NMPizSlpNaBnlPZqYO wvdGQ+AKDrCCO0uOgiOGkcFEGu sT6rOQHbK8s7SiBzZvS7MIda T1OmGKQetsbnXo57iF4bKkOzUq J6ZAgiO3SllfL4PZUijDZuRZph GDE6A76ug8N5BPIbUURsNPO4 kZL6fV0bbEazrcnhcCHjzSkgqh QjgDivFKqjEPhjO219AXTsfRtv KpYdZUIfUW7zgFolzTN+PC90 xg09I2AdWqwbCme0CQQuYAN2dC A3kW5mSNIcGLofm7D1cMN1J9By mqTyyw0yn2iiYRBxYYemL26q fJZan0Q4TLRbkVG9EWEygEfcWn GaqI90Wxh+LIWffIblr8DbDssy i7mih3xwyRe3GlQlRGOfeeIj nVkuNXB4z3CcQk84U06jWAvbOD EbHKMlOUFuWZFlgNtmto9eeI4e Ii8+OAKxkLO9jMF4sF1rFlDo SnG7QUjuT275YsBqnODmDsqgu5 qiz1pbiFo4IjOtIKYqafMoaOtt AKE9h7XiYg80C7RmiPulh1Jx Flw3gs91sMDcq0Q1jMH5J9FbBA WmqfkmeVGqcBujFL6xUQFjdeui JBErhT6uFZPbK1k0ZkLtMcH9 KJjdL4FwxoU5LNAdfFIiNEYrqW FClK7zsgnqm9fefssvGkFePHGr LRl9ZSa1FIHnsVgmCsNzXPO9 ZoC5MAP8tVVoqD7tlZwrkrkupW 9wOyc+WAr1e5vbuWUoYY0cdIR8 IT89YY19tAOyb3S8qOD5W4Pp WPOovxzirxzktGR9SLMxPAUggF 83It9cvIbuNc1pRKHoNAU8CGBt nDLmU2YzpX6sKhAwJAUrALTl U2JjdYYnXZdsX518ITgsRdN6DX UraoZnJ2OjXPGopXquErH5p8L4 Ds6AUL88WC84OO68zDVzg9L1 iPN4R9SlIZNmenxtnjbmaFM8OH AkJJUypF46Ls2kaZyoLv4zLJXs THM9OYKobXFgS6AdjV1tBuYf HRAiETLlA2MoaAOcZFutD341VH lpXaJ7LVSuegAxY2WfLMHypNlc YzR8s2H4Cg9RLq16OA16CI73 fXXse7P1cHX6O4WrMQHakndhid ylsLM0HKNbWKQrhQ01Jl2beEcp Ee4kYMRzLIM9OCAvvTVaH3Zw dV7lLqXzMQDwCTQpP5CchVQxEH rdL889AYchMsS5UCGssnGbF8Qk NOFigJivGxG0w4E3Bh0VWExj hfn8R4DkZlokzSF+HP83TJQlIA 89eIOreBXml7zytFv4YxQqUFNk GDV3fQnrYWdih5LmEFOmR65d bGFw (more content not included)... Normal [facility] Consent for Procedure/Surger yon 06-14-2020 Consent for Procedure/Surgery [id number]:127 Normal [facility] Consent for Treatmenton - Consent for Treatment [id number]:127 Normal [facility] Inpatient Patient Summaryon 06-14-2020 Inpatient Patient Summary [address] [id number] [facility] Clinical Discharge Instructions PERSON INFORMATION Name: ANTOINETTE RECIO [facility]#:[id number] PHYSICIANS Admitting Physician: Jordan Bhakta DO Attending Physician: Jordan Bhakta DO PCP: NONE, XXXX Discharge Diagnosis: Comment: PATIENT EDUCATION INFORMATION Instructions: Shoulder Cryocuff Patient Instructions - FT (CUSTOM); Post Op Patient Instructions - FT (Custom) (CUSTOM); Silvana Bhakta - Shoulder Replacement (Custom) Medication Leaflets: Follow up: With: Address: When: Jordan Bhakta [address] [place] [address] [facility] (1) 06/21/2020 8:45 AM Comments: Call for any problems. Keep scheduled appointment MEDICATION LIST [facility] [address], [place] [id number], [phone] acetaminophen-oxycodone (Percocet 325 mg-5 mg Tab) 1-2 tab(s) Oral q4hr; as needed as needed for pain. Refills: 0. docusate (Colace 100 mg Cap) 1 Capsules By Mouth 2 times a day as needed for constipation. Refills: 0. Medications to Continue Taking That Have Changed [facility] [address], [place] [id number], [phone] START: naproxen (naproxen 500 mg Tab) 1 Tablets By Mouth 2 times a day. with food. Refills: 0. Other Medications START: naproxen (naproxen 500 mg Tab) 1 Tablets By Mouth 2 times a day. Take one tab by mouth two times a day. Refills: 0. Comment: [facility] Main OR PACU I [facility] Main OR PACU I Record PACU Phase I Docum ent Type FT Summary Primary Physician: Jordan Bhakta DO Finalized Date/Time: 06/14/20 19:45:42 Pt. Name: ANTOINETTE RECIO Azalea Ramirez/Sex: 1995 Female Med Rec #: [id number] Physician: Jordan Bhkata DO Financial #: [id number] Pt. Type: A Room/Bed: [facility] Admit/Disch: 06/14/20 15:28:52 - Institution: Case Times [...] By: Yvette Santa RN 06/14/20 19:45 Normal [facility] Main OR PACU II [facility] Main OR PACU II Record PACU Phase II Doc ument Type FT Summary Primary Physician: Jordan Bhakta DO Finalized Date/Time: 06/14/20 21:13:50 Pt. Name: ANTOINETTE RECIO/Sex: 1995 Female Med Rec #: [id number] Physician: Jordan Bhakta DO Financial #: [id number] Pt. Type: A Room/Bed: [place] [address] Admit/Disch: 06/14/20 15:28:52 - 06/14/20 21:05:00 Institution: [...] 21:13 Normal [facility] Main OR Preoperative Recordo n 06-14-2020 Main OR Preoperative Record PreOp Document Type FT Summary Primary Physician: Jordan Bhakta DO Finalized Date/Time: 06/14/20 18:03:47 Pt. Name: ANTOINETTE RECIO/Sex: 1995 Female Med Rec #: [id number] Physician: Jordan Bhakta DO Financial #: [id number] Pt. Type: A Room/Bed: [facility] Admit/Disch: 06/14/20 15:28:52 - Institution: Case Times [...] Signed By: Alycia Cash RN 06/14/20 18:03 [facility] Monitor [facility] 06-14-2020 Monitor Record [id number]:127 [facility] Operative Reporton Operative Report Patient: ALICJA RECIO Age: 25 years Sex: Female : 1995 Associated Diagnoses: None Author: Jordan Bhakta DO full operative report dictated Postoperative Information Procedure: ORIF L clavicle Preoperative Diagnosis: L clavicle fx. Postoperative Diagnosis: same. Performed by: Jordan Bhakta DO. Estimated Blood Loss: 100 mL. Complications: None. Notes: to PACU in good condition. Anesthesia type: General, Regional. anesthesiologist: star [facility] Comment on above: Result Comment: Elec tronically Signed By: Jordan Bhakta DO\.br\Date and Time Signed: 06/14/20 19:03 EDT Outpatient Surgery Discharge Instructionon 06-14-2020 Outpatient Surgery Discharge Instruction [place] [address] Patient Discharge Instructions PERSON INFORMATION Name: ANTOINETTE RECIO Date of : 1995 Current Date: 06/14/2020 20:26:49 PHYSICIANS Admitting Physician: Jordan Bhakta DO Discharge Diagnosis: ANTOINETTE RECIO has been given the following list of follow-up instructions, prescriptions, and patient education materials: IF UNABLE TO CONTACT YOUR PHYSICIAN AND YOU FEEL IT IS AN EMERGENCY, GO TO THE NEAREST EMERGENCY ROOM OR CALL 911 I, ANTOINETTE RECIO, have received the attached patient education materials/instructions and have verbalized understanding: May we do a follow up call? Yes No I was present when discharge instructions were given ____ Patient Signature _ Date Clinican/Nurse Signature Date Follow up: With: Address: When: [place] [address] Business (1) 06/21/2020 8:45 AM Comments: Call for any problems. Keep scheduled appointment Pharmacy Information: [facility] You may receive a survey from [employer] asking you to rate your care experience. Your feedback is important and will help us understand what we do well and how we can improve the quality of care we provide to you, your loved ones and our community. It?s an honor to serve you. Thank you for choosing [facility] HERE ARE THE MEDICATION CHANGES THAT OCCURRED DURING YOUR HOSPITAL STAY [facility] [address], [address] [facility] [place], [place] [id number], [phone] acetaminophen-oxycodone (Percocet 325 mg-5 mg Tab) 1-2 tab(s) Oral q4hr; as needed as needed for pain. Refills: 0. docusate (Colace 100 mg Cap) 1 Capsules By Mouth 2 times a day as needed for constipation. Refills: 0. Medications to Continue Taking That Have Changed [facility] [address], [address], [place] [id number], [phone] START: naproxen (naproxen 500 mg Tab) 1 Tablets By Mouth 2 times a day. with food. Refills: 0. Other Medications START: naproxen (naproxen 500 mg Tab) 1 Tablets By Mouth 2 times a day. Take one tab by mouth two times a day. Refills: 0. PATIENT EDUCATION INFORMATION Instructions: [place], [place] [facility] DISCHARGE INSTRUCTIONS: SHOULDER SURGERY [...] site, or the development of persistent vomiting. _ Jordan Bhakta DO [facility] [address] [place] [address] Reviewed: Normal [facility] Patient Education - Texton 0 06-14-2020 Patient Education - Text [place], [place] [facility] DISCHARGE INSTRUCTIONS: SHOULDER SURGERY [...] site, or the development of persistent vomiting. _ Jordan Bhakta, DO [facility] [address] [place], [place] [address] Reviewed: Normal [facility] BMPon 06-13-2020 Anion gap [Moles/Vol] 12 mmol/L Normal 6-16 [facility] Comment on above: Performed By: #### 2 [id number], [id number], [id number] ####[facility] [address] [place] [address] Calcium [Mass/Vol] 9.1 mg/dL Normal 8.9-11.1 [facility] Comment on above: Performed By: #### 2 [id number], [id number], [id number] ####[facility] [address] [place] [address] Chloride [Moles/Vol] 105 mmol/L Normal 101-111 [facility] Comment on above: Performed By: #### 2 [id number], [id number], [id number] ####[facility] [address] [place] [address] CO2 [Moles/Vol] 29 mmol/L Normal 21-31 [facility] Comment on above: Performed By: #### 2 [id number], [id number], [id number] ####[facility] [address] [place] [address] Creatinine [Mass/Vol] 0.7 mg/dL Normal 0.5-1.3 [facility] Comment on above: Performed By: #### 2 [id number], [id number], [id number] ####[facility] [address] [place] [address] Glucose [Mass/Vol] 82 mg/dL Normal 55-199 [facility] Comment on above: Result Comment: If t his glucose result represents a fasting glucose, interpretation should refer to the following reference range: 55-99 mg/dL Performed By: #### 2 [id number], [id number], [id number] ####[facility] [address] [place] [address] Potassium [Moles/Vol] 3.9 mmol/L Normal 3.5-5.3 [facility] Comment on above: Performed By: #### 2 [id number], [id number], [id number] ####[facility] [address] [place] [address] Sodium [Moles/Vol] 142 mmol/L Normal 135-145 [facility] Comment on above: Performed By: #### 2 [id number], [id number], [id number] ####[facility] [address] [place] [address] Urea nitrogen [Mass/Vol] 14 mg/dL Normal 5-21 [facility] Comment on above: Performed By: #### 2 273513, [id number], [id number] ####[address] [address] Urea nitrogen/Creatinine [Mass ratio] 20 No Units Normal 10-20 [facility] Comment on above: Performed By: #### 2 749830, [id number], [id number] ####[facility] [address] [place] [address] CBC w/Indiceson 06-13-2020 Erythrocyte distribution width (RBC) [Ratio] 14.3 % High 10.9-14.2 [facility] Comment on above: Performed By: #### 2 497776, [id number], [id number] ####[address] [place] [address] Hematocrit (Bld) [Volume fraction] 36.4 % Normal 34.0-46.0 [facility] Comment on above: Performed By: #### 2 072714, [id number], [id number] ####[facility] [address] [place] [address] Hemoglobin (Bld) [Mass/Vol] 11.9 g/dL Low 12.0-16.0 [facility] Comment on above: Performed By: #### 2 528357, [id number], 6420735 ####[facility] [address] [place] [address] MCH (RBC) [Entitic mass] 27.5 pg Normal 27.0-34.0 [facility] Comment on above: Performed By: #### 2 679806, [id number], 4107945 ####[address] [address] MCHC (RBC) [Mass/Vol] 32.6 g/dL Normal 31.4-36.0 [facility] Comment on above: Performed By: #### 2 380074, 06935273, 4515633 ####[address] [address] MCV (RBC) [Entitic vol] 84.4 fL Normal 80.0-100.0 [facility] Comment on above: Performed By: #### 2 499002, 40234709, 5390690 ####[address] [address] Platelet mean volume (Bld) [Entitic vol] 7.5 fL Normal 6.4-10.8 [facility] Comment on above: Performed By: #### 2 764437, 38953691, 3213512 ####[address] [address] Platelets (Bld) [#/Vol] 319.0 E9/L Normal 150.0-500. 0 [facility] Comment on above: Performed By: #### 2 625606, 53762009, 1371338 ####[address] [address] RBC (Bld) [#/Vol] 4.3 E12/L Normal 4.3-5.9 [facility] Comment on above: Performed By: #### 2 344526, 77473938, 3473849 ####[address] [address] WBC corrected for nucl RBC Auto (Bld) [#/Vol] 6.8 E9/L Normal 4.0-11.0 [facility] Comment on above: Performed By: #### 2 305255, 69531174, 4501968 ####[facility] [address] [place] [address] Consent for Treatmenton 0 Consent for Treatment [id number]:127 Normal [facility] Physician Orderon 06-13-2020 Physician Order [id number]:127 Normal [facility] Physician Order [id number]:127 Normal [facility] Progress Note-Physicianon Progress Note-Physician Patient: ANTOINETTE RECIO [...] selected or recorded. Procedure history: Gastric sleeve ([id number]) in 2019 at 22 Years. Tonsillectomy ([id number]). Social History Social & Psychosocial Habits Alcohol [...] review: No qualifying data available . Plan [place] [employer] Anesthesiologists (ASA) physical status classification: Class I. Anesthetic Preoperative Plan Anesthesia: General. , Regional Interscalene Block. Anesthetic plan, risks, benefits, and alternatives discussed with the patient and/or family. Pt. and/or family present and agree to proceed as planned.. Discussed the importance of abstaining from tobacco products, and offered counseling if desired. Normal [facility] Comment on above: Result Comment: Elec tronically Signed By: Godfrey Graves JR, DO.br\Date and Time Signed: 06/13/20 15:05 EDT U BetaHcg Qualon 06-13-2020 HCG.beta subunit (U) [Moles/Vol] Negative Normal [facility] Comment on above: Performed By: #### 2 [id number] #### [facility] Laboratory [address] [place] [address] eGFRon 06-13-2020 GFR/1.73 sq M.predicted among blacks MDRD (S/P/Bld) [Vol rate/Area] mL/min/{1.73_m2} Normal >=59 [facility] Comment on above: Order Comment: Order added by Discern Expert. Result Comment: eGFR is race adjusted. AA=. Performed By: #### 2 865586, 60637153, 4607497 ####[facility] [address] [place] [address] GFR/1.73 sq M.predicted among non-blacks MDRD (S/P/Bld) [Vol rate/Area] mL/min/{1.73_m2} Normal >=59 [facility] Comment on above: Order Comment: Order added by Discern Expert. Result Comment: [employer] C[employer] mile kidney disease could be indicated at eGFR's of less than 60 mL/min/1.73m2. Kidney failure is indicated at less than 15 mL/min/1.73m2. Performed By: #### 2 898258, 11750771, [id number] ####[facility] [address] [place] [address] COVID-19 ([facility])on 06-12-2020 Employed in Healthcare NO Normal [facility] Comment on above: Performed By: #### 2 [id number] ####[facility] [address] [place] [address] First Test Unknown Normal [facility] Comment on above: Performed By: #### 2 [id number] ####[facility] [address] [place] [address] Hospitalized? NO Normal [facility] Comment on above: Performed By: #### 2 [id number] ####[facility] [address] [place] [address] ICU NO Normal [facility] Comment on above: Performed By: #### 2 [id number] ####[facility] [address] [place] [address] ? Unknown Normal [facility] Comment on above: Performed By: #### 2 [id number] ####[place] [address] Resides in a Congregate Care Setting NO [facility] Comment on above: Performed By: #### 2 [id number] ####[place] [address] Symptomatic as defined by CDC Unknown Normal [facility] Comment on above: Performed By: #### 2 [id number] ####[place] [address] [address] Physician Orderon 06-12-2020 Physician Order [id number]:127 Normal [facility] Consent for Treatmenton Consent for Treatment [id number]:127 Normal [facility] Discharge Instructionson Discharge Instructions [id number]:127 Normal [facility] ED Clinical Summaryon 2020 ED Clinical Summary (Inserted Image. Jayda ble to display) [place] [id number] ED Clinical Summary Person Information Name: ANTOINETTE RECIO [place] Age: 25 Years : 1995 Sex: Female Language: Grenadian PCP: Isaiah BHAKTA MD Marital Status: Visit [...] 06/11/2020 12:47:55 06/11/2020 12:47:55 06/11/2020 12:47:55 ADDRESS: [address] [place] [id number] PHYS DOC NOTES: MEDICAL INFORMATION: Prescriptions Given: New Medications Printed Prescriptions acetaminophen-oxycodone (Percocet 5 mg-325 mg oral tablet) 1 [...] up: With: Address: When: Jordan Bhakta [id number] Business (1) 06/12/2020 3:15 PM With: Address: When: Isaiah BHAKTA [address] [place] [address] Business (1) In 3 days DIAGNOSIS: Fracture of left clavicle Normal [facility] ED Note-Physicianon 06-12-19 ED Note-Physician Basic Information Time Seen: Lonnie Burdick DO 06/11/2020 12:18 Chief Complaint Pt reports broken collar bone and stitches above eye. [place] and sent to [place]. Pt reports still in pain and was [...] left clavicle. She was taken from the [facility] transferred to a hospital in [place] where she was discharged 20 minutes later [...] see the patient tomorrow at [address] in [place] and she is treated with anti-inflammatories and given Percocet for pain Assessment/Plan Fracture of left clavicle (S42.002A: Fracture of unspecified part of left clavicle, initial encounter for closed fracture) Ordered: acetaminophen-oxycodone, 1 tab(s), Oral, q6hr for 3 day(s), [...] Jordan Bhakta 06/12/2020 03:15 PM EDT [address] [place] [address]- Business (1) Additional Instructions: Isaiah BHAKTA In 3 days [address] [place] [address]- Business (1) Additional Instructions: Problem List/Past Medical [...] left clavicle with 100% displacement Read By: Lonnie Burdick DO 06/11/20 12:20:16 IMPRESSION: DISPLACED MID [...] Self Normal [facility] Comment on above: Result Comment: Elec tronically Signed By: Lonnie Burdick DO\.br\Date and Time Signed: 06/11/20 12:39 EDT ED Patient Education Noteon 06-11-2020 ED Patient Education Note Normal [facility] ED Patient Summaryon 021 ED Patient Summary (Inserted Image. Jayda ble to display) [address] [address] Patient Discharge Instructions Person Information Name: ANTOINETTE ERCIO Age: 25 Years Arrival Date: 06/11/2020 10:49:37 Discharge Diagnosis: Fracture of left clavicle Primary Care Physician: Isaiah BHAKTA MD Provider Information Primary Provider: Lonnie Burdick DO Advanced Metal Drawer:None The exam and treatment you received in the Emergency Department were for an urgent problem and are not intended as complete care. It is important that you follow up with a doctor, nurse practitioner, or physician?s server service assistant for ongoing care. If your [...] Instructions: With: Address: When: Jordan Bhakta [address] [place], [place] [phone] Business (1) 06/12/2020 3:15 PM With: Address: When: Isaiah BHAKTA [address] [place] [address] Business (1) In 3 days In the event that this physician does not participate in your insurance network, please consult with your insurance company to find a nearby participating provider. Patient Education Materials: A MESSAGE TO ALL PATIENTS REGARDING OPIOIDS PRESCRIPTION OPIOIDS: WHAT YOU NEED TO KNOW Prescription opioids can be used to help relieve jthlnlfc-yc-zdluqc pain and are often prescribed following a [...] guidance from the Food and Drug Administration (www.fda.gov/Drugs/Resourc esForYou). ? Visit www.cdc.gov/drugoverdose to learn about the risks of opioids abuse and overdose. ? If you believe you may be struggling with addiction, tell your health care pro (more content not included)... Normal [facility] XR Chest 2 Viewson 05-03-202 1 XR Chest 2 Views Exam Date/Time: 06/11/2020 [...] MD Transcribed by: MICHAEL Technologist: ABDULLAHI Williamson [facility] CBC AUTO DIFFon 06-10-2020 BASO # 0.1 103/ul Normal 0.0-0.1 [facility] Comment on above: Performed By: #### C BC #### [facility] [address] [place], [place] [address] Kinjal Sherine Basophils/100 WBC (Bld) 0.5 % Normal 0.2-2.0 [facility] Comment on above: Performed By: #### C BC #### [facility] [address] [place], [place] [address] Kinjal Sherine EO # 0.2 103/ul Normal 0.0-0.7 [facility] Comment on above: Performed By: #### C BC #### [facility] [address] [place], [place] [address] Kinjal Sherine Eosinophils/100 WBC (Bld) 1.8 % Normal 0.9-7.0 [facility] Comment on above: Performed By: #### C BC #### [facility] [address] [place], [place] [address] Kinjal Sherine Erythrocyte distribution width (RBC) [Ratio] 13.7 % Normal 11.0-15.0 [facility] Comment on above: Performed By: #### C BC #### [facility] [address] [place] [address] Kinjalroverto Basurto Hematocrit (Bld) [Volume fraction] 38.2 % Normal 36.0-48.0 [facility] Comment on above: Performed By: #### C BC #### [facility] [address] [place] [address] Kinjal Sherine Hemoglobin (Bld) [Mass/Vol] 11.9 g/dL Critically low 12.0-16.0 [facility] Comment on above: Performed By: #### C BC #### [facility] [address] [place] [address] Kinjal Sherine IG # 0.03 10e3/ul Normal 0.00-0.03 [facility] Comment on above: Performed By: #### C BC #### [facility] [address] [place] [address] Kinjal Sherine IG % 0.3 % Normal 0.0-0.5 [facility] Comment on above: Performed By: #### C BC #### [facility] [address] [place] [address] Kinjal Sherine LYMPH # 1.8 103/ul Normal 1.2-3.8 [facility] Comment on above: Performed By: #### C BC #### [facility] [address] [place] [address] Kinjal Basurto Lymphocytes/100 WBC (Bld) 17.4 % Critically low 20.5-60.0 [facility] Comment on above: Performed By: #### C BC #### [facility] [address] [place] [address] Kinjal Basurto MANUAL DIFF REQ NO Normal [facility] Comment on above: Performed By: #### C BC #### [facility] [address] [place], [place] [address] Kinjal Basurto MCH (RBC) [Entitic mass] 27.0 pg Normal 26.7-34.0 [facility] Comment on above: Performed By: #### C BC #### [facility] [address] [place] [address] Kinjalroverto Basurto MCHC (RBC) [Mass/Vol] 31.2 g/dL Normal 29.9-35.2 [facility] Comment on above: Performed By: #### C BC #### [facility] [address] [place], [place] [address] Kinjal Basurto MCV (RBC) [Entitic vol] 86.8 fL Normal 81.0-99.0 [facility] Comment on above: Performed By: #### C BC #### [facility] [address] [place], [place] [address] Kinjal Basurto MONO # 0.3 103/ul Normal 0.3-0.8 [facility] Comment on above: Performed By: #### C BC #### [facility] [address] [place], [place] [address] Kinjal Basurto Monocytes/100 WBC (Bld) 3.2 % Normal 1.7-12.0 [facility] Comment on above: Performed By: #### C BC #### [facility] [address] [place] [address] Kinjal Basurto NEUT # 7.8 103/ul Critically high 1.4-6.5 [facility] Comment on above: Performed By: #### C BC #### [facility] [address] [place], [place] [address] Kinjal Basurto Neutrophils/100 WBC (Bld) 76.8 % Critically high 43.0-75.0 [facility] Comment on above: Performed By: #### C BC #### [facility] [address] [place], [place] [address] Kinjal Basurto Platelet mean volume (Bld) [Entitic vol] 9.1 fL Critically low 9.5-13.5 [facility] Comment on above: Performed By: #### C BC #### [facility] [address] [place], [place] [address] iKnjal Fosteren PLT 350 103/ul Normal 150-450 [facility] Comment on above: Performed By: #### C BC #### [facility] [address] [place], [place] [address] Kinjalroverto Fosteren RBC 4.40 106/ul Normal 4.20-5.40 [facility] Comment on above: Performed By: #### C BC #### [facility] [address] [place], [place] [address] Kinjal Basurto WBC 10.1 103/ul Normal 4.0-11.0 [facility] Comment on above: Performed By: #### C BC #### [facility] [address] [place], [place] [address] CHEST W CONon 06-10-2020 CT CHEST [...] ARELI RIVERA Date: 2020-06-10 03:43 Normal [facility] CT CSPINE WO CONon CT CSPINE [...] Haylie VILLAR Date: 2020-06-10 01:09 Normal [facility] CT HEAD WO CONon 06-10-2020 CT [...] ARELI RIVERA Date: 2020-06-10 01:01 Normal [facility] DRUG SCREEN RAPID (URINE)on 06-10-2020 AMP Negative Normal NEGATIVE [facility] Comment on above: Performed By: #### E RUR, DRUGRPD #### [facility] [address] [place] [address] Kinjal Sherine BAR Negative Normal NEGATIVE [facility] Comment on above: Performed By: #### E RUR, DRUGRPD #### [facility] [address] [place] [address] Kinjal Sherine BUP Negative Normal NEGATIVE [facility] Comment on above: Performed By: #### E RUR, DRUGRPD #### [facility] [address] [place] [address] Kinjal Sherine BZO Negative Normal NEGATIVE [facility] Comment on above: Performed By: #### E RUR, DRUGRPD #### [facility] [address] [place] [address] Kinjal Sherine CURTIS Negative Normal NEGATIVE [facility] Comment on above: Performed By: #### E RUR, DRUGRPD #### [facility] [address] [place] [address] Kinjal Sherine CUT-OFFS SEE BELOW Normal [facility] Comment on above: Result Comment: AMP (Amphetamine): 500ng/mL, BAR (Barbituates): 200 ng/mL, BZO (Benzodiazepines): 150 ng/mL, BUP (Buprenorphine): 10 ng/mL, CURTIS (Cocaine): 150 ng/mL, mAMP (Methamphetamine): 500 ng/mL, MTD (Methadone): 200 ng/mL, OPI (Opiates): 100 ng/mL, OXY (Oxycodone): 100 ng/mL, PCP (Phencyclidine): 25 ng/mL, PPX (Propoxyphene): 300 ng/mL, THC (Cannabinoids): 50 ng/mL, TCA (Trycyclic Antidepressants): 300 ng/mL Performed By: #### E RUR DRUGRPD #### [facility] [address] [place] [address] DRUG CUT HEADER DRUG CLASS TEST SYST EM CUT-OFF CONCENTRATIONS ARE FOLLOWS: Normal [facility] Comment on above: Performed By: #### E RUR, DRUGRPD #### [facility] [address] [place] [address] Kinjal Sherine mAMP Negative Normal NEGATIVE [facility] Comment on above: Performed By: #### E RUR, DRUGRPD #### [facility] [address] [place] [address] Iknjal Sherine MTD Negative Normal NEGATIVE [facility] Comment on above: Performed By: #### E RUR DRUGRPD #### [facility] [address] [place] [address] [facility] Positive Abnormal NEGATIVE [facility] Comment on above: Performed By: #### E RUR, DRUGRPD #### [facility] [address] [place] [address] Kinjal Sherine OXY Negative Normal NEGATIVE [facility] Comment on above: Performed By: #### E RUR, DRUGRPD #### [facility] [address] [place] [address] Kinjal Sherine PCP Negative Normal NEGATIVE [facility] Comment on above: Performed By: #### E RUR, DRUGRPD #### [facility] [address] [place] [address] Kinjal Sherine PPX Negative Normal NEGATIVE [facility] Comment on above: Performed By: #### E RUR, DRUGRPD #### [facility] [address] [place] [address] Kinjal Sherine TCA Negative Normal NEGATIVE [facility] Comment on above: Performed By: #### E RUR, DRUGRPD #### [facility] [address] [place] [address] Kinjal Sherine THC Negative Normal NEGATIVE [facility] Comment on above: Performed By: #### E RUR, DRUGRPD #### [facility] [address] [place] [address] Kinjal Sherine ER URINE PROFILEon 1 Bilirubin Ql (U) Negative Normal NEGATIVE [facility] Comment on above: Performed By: #### E RUR, DRUGRPD #### [facility] [address] [place] [address] Kinjal Sherine Clarity (U) CLEAR Normal CLEAR [facility] Comment on above: Performed By: #### E RUR, DRUGRPD #### [facility] [address] [place] [address] Kinjal Sherine Color (U) LT. YELLOW Normal YELLOW [facility] Comment on above: Performed By: #### E RUR, DRUGRPD #### [facility] [address] [place] [address] Kinjal Sherine ERUAHD A micrscopic examina tion will be performed if indicated. Normal [facility] Comment on above: Performed By: #### E RUR, DRUGRPD #### [facility] [address] [place] [address] Kinjal Sherine Glucose Ql (U) Negative Normal NEGATIVE [facility] Comment on above: Performed By: #### E RUR, DRUGRPD #### [facility] [address] [place] [address] Kinjal Sherine Hemoglobin Ql (U) Negative Normal NEGATIVE [facility] Comment on above: Performed By: #### E RUKatharine DRUGRPD #### [facility] [address] [place] [address] Kinjal Sherine Ketones Ql (U) Negative Normal NEGATIVE [facility] Comment on above: Performed By: #### Mitchell PETERSEN, DRUGRPD #### [facility] [address] [place] [address] Kinjal Sherine LEUKOCYTES Negative Normal NEGATIVE [facility] Comment on above: Performed By: #### Mitchell RUKatharine DRUGRPD #### [facility] [address] [place] [address] Kinjal Sherine Nitrite Ql (U) Negative Normal NEGATIVE [facility] Comment on above: Performed By: #### Mitchell PETERSEN DRUGRPD #### [facility] [address] [place] [address] Kinjal Sherine pH (U) 7.5 [pH] Normal 5-9 [facility] Comment on above: Performed By: #### Mitchell PETERSEN DRUGRPD #### [facility] [address] [place] [address] Kinjal Sherine SPEC GRAVITY 1.010 Normal 1.005-<=1. 025 [facility] Comment on above: Performed By: #### Mitchell PETERSEN DRUGRPD #### [facility] [address] [place] [address] Kinjal Sherine UA PROTEIN Negative Normal NEGATIVE/ TRACE [facility] Comment on above: Performed By: #### Mitchell PETERSEN DRUGRPD #### [facility] [address] [place] [address] Kinjal Sherine UR MICRO IND NOT INDICATED Normal [facility] Comment on above: Performed By: #### Mitchell RUKatharine DRUGRPD #### [facility] [address] [place] [address] Kinjal Sherine Urobilinogen Qn (U) 0.2 {Jazmine'U}/dL Normal 0.2 - 1. 0 [facility] Comment on above: Performed By: #### Mitchell PETERSEN DRUGRPD #### [facility] [address] [place] [address] Kinjal Sherine ETHANOL (BLD ALC)on 06-11-19 21 ALC NOTE NOTE: 80 mg/dl is th e legal limit for a blood alcohol level Normal [facility] Comment on above: Performed By: #### E TH ####[facility] [facility] [address] [place], [place] [address]Bhuqhq Karen Ethanol [Mass/Vol] 200 mg/dL Normal [facility] Comment on above: Performed By: #### E TH ####[facility] [address] [place], [place] [address]Czstiw Karen PROF 14(COMP METB)on 021 Albumin [Mass/Vol] 3.8 g/dL Normal 3.5-5.0 [facility] Comment on above: Performed By: #### C MP #### [facility] [address] [place], [place] [address] Kinjal Sherine Albumin/Globulin [Mass ratio] 1.2 {ratio} Normal [facility] Comment on above: Performed By: #### C MP #### [facility] [address] [place], [place] [address] Kinjal Sherine ALP [Catalytic activity/Vol] 54 U/L Normal 38-126 [facility] Comment on above: Performed By: #### C MP #### [facility] [address] [place], [place] [address] Kinjal Sherine ALT [Catalytic activity/Vol] 19 U/L Normal 9-52 [facility] Comment on above: Performed By: #### C MP #### [facility] [address] [place], [place] [address] Kinjal Sherine Anion gap [Moles/Vol] 12.2 mmol/L Normal Th [facility] Comment on above: Performed By: #### C MP #### [facility] [address] [place], [place] [address] Kinjal Sherine AST [Catalytic activity/Vol] 13 U/L Critically low 14-36 [facility] Comment on above: Performed By: #### C MP #### [facility] [address] [place], [place] [address] Kinjal Sherine Bilirubin [Mass/Vol] 0.3 mg/dL Normal 0.2-1.3 [facility] Comment on above: Performed By: #### C MP #### [facility] [address] [place] [address] Kinjal Sherine Calcium [Mass/Vol] 8.4 mg/dL Normal 8.4-10.2 [facility] Comment on above: Performed By: #### C MP #### [facility] [address] [place] [address] Kinjal Sherine Chloride [Moles/Vol] 109 mmol/L Critically high 98-107 [facility] Comment on above: Performed By: #### C MP #### [facility] [address] [place] [address] Kinjal Sherine CO2 [Moles/Vol] 27.5 mmol/L Normal 22.0-30.0 [facility] Comment on above: Performed By: #### C MP #### [facility] [address] [place] [address] Kinjal Sherine Creatinine [Mass/Vol] 0.73 mg/dL Normal 0.52-1.04 [facility] Comment on above: Performed By: #### C MP #### [facility] [address] [place] [address] Kinjal Sherine EGFR-AF CONGOLESE >60 Normal >=60 [facility] Comment on above: Performed By: #### C MP #### [facility] [address] [place] [address] Kinjal Sherine EGFR-NON AF CONGOLESE >60 Normal >=60 [facility] Comment on above: Performed By: #### C MP #### [facility] [address] [place] [address] Kinjal Sherine Globulin (S) [Mass/Vol] 3.3 g/dL Normal [facility] Comment on above: Performed By: #### C MP #### [facility] [address] [place] [address] Kinjal Sherine Glucose [Mass/Vol] 85 mg/dL Normal 74-106 [facility] Comment on above: Performed By: #### C MP #### [facility] [address] [place], [place] [address] Kinjal Sherine Potassium [Moles/Vol] 3.7 mmol/L Normal 3.4-5.0 [facility] Comment on above: Performed By: #### C MP #### [facility] [address] [place], [place] [address] Kinjal Sherine Protein [Mass/Vol] 7.1 g/dL Normal 6.1-8.2 [facility] Comment on above: Performed By: #### C MP #### [facility] [address] [place] [address] Kinjal Sherine Sodium [Moles/Vol] 145 mmol/L Normal 137-145 [facility] Comment on above: Performed By: #### C MP #### [facility] [address] [place] [address] Kinjal Sherine Urea nitrogen [Mass/Vol] 9.0 mg/dL Normal 7.0-17.0 [facility] Comment on above: Performed By: #### C MP #### [facility] [address] [place] [address] Kinjal Sherine Urea nitrogen/Creatinine [Mass ratio] 12.3 mg/mg Normal [facility] Comment on above: Performed By: #### C MP #### [facility] [address] [place], [place] [address] Kinjal Basurto Rapid Covid-19 PCR (CVDRPD)o n 06-10-2020 SARS-CoV-2 (COVID-19) RNA AIDEE+probe Ql (Unsp spec) Not detected Normal NOT DETECTED [facility] Comment on above: Result Comment: This test is not yet approved or cleared by the [place] Food and Drug Administration (FDA). This test was developed by [employer], [place], [place]. The performance characteristics of this test were validated by [facility]. The results are not intended to be used as the sole means for clinical diagnosis or patient management decisions. [facility] is authorized under Clinical Laboratory Improvement Amendments (CLIA) to perform high- complexity testing. When diagnostic testing is negative, the possibility of a false negative should be considered in the context of a patient's recent exposures and the presence of clinical signs and symptoms consistent with SARS-CoV-2. Performed By: #### C VDRPD ####[facility] [address] [place], [place] [address]XpuuhbKinjal Basurto XR CLAVICLE LTon 06-10-2020 XR CLAVICLE [...] by: Haylie VILLAR Date: 2020-06-10 01:50 Normal [facility] XR SHOULDER LT 2V or >on [...] by: BENNY ARMSTRONG Date: 2020-06-10 01:45 Normal [facility], Bloodon 2018 Cult, Blood Specimen Description .BLOOD Special Requests RT HAND Culture NO GROWTH 6 DAYS Report Status FINAL 2018 Normal [facility] Comment on above: Performed By: #### B CUL2 ####[facility] [address] [place] [address] [facility] Director: Reed Mckeon MD Cult,Bloodon 2018 Cult,Blood Specimen Description .BLOOD Special Requests L ARM 10CC Culture NO GROWTH 6 DAYS Report Status FINAL 2018 Normal [facility] Comment on above: Performed By: #### B C ####[facility] [address] [place] [address] Lab Director: Reed Mckeon MD Basic Metab w/rfx MGon 04-16 (cont.) Normal [facility] Comment on above: Result Comment: Aver age GFR for 20-29 years old: 116 mL/min/1.73sq m Chronic Kidney Disease: <60 mL/min/1.73sq m Kidney failure: <15 mL/min/1.73sq m eGFR calculated using average adult body mass. Additional eGFR calculator available at: http://www.[employer].En[employer]son/multiple_crcl_2012.htm Performed By: #### C BC, BMPX ####[facility] [address] [place], [place] [phone] Director: Reed Mckeon MD Anion gap molar conc 13 mmol/L Normal 9-17 [facility] Comment on above: Performed By: #### C BC, BMPX ####[facility] [address] [place] [address] Lab Director: Reed Mckeon MD Calcium mass conc 8.7 mg/dL Normal 8.6-10.4 [facility] Comment on above: Performed By: #### C BC, BMPX ####[facility] [address] [place] [address] Lab Director: Reed Mckeon MD Chloride molar conc 110 mmol/L High 98-107 [facility] Comment on above: Performed By: #### C BC, BMPX ####[facility] [address] [place] [address] Lab Director: Reed Mckeon MD CO2 molar conc 18 mmol/L Low 20-31 [facility] Comment on above: Performed By: #### C BC, BMPX ####[facility] [address] [place] [address] Lab Director: Reed Mckeon MD Creatinine mass conc 0.49 mg/dL Low 0.50-0.90 [facility] Comment on above: Performed By: #### C BC, BMPX ####[facility] [address] [place], [place] [phone] Director: Reed Mckeon MD GFR, Amer >60 Normal >60 [facility] Comment on above: Performed By: #### C BC, BMPX ####[facility] [address] [place], [place] [phone] Director: Reed Mckeon MD GFR,non Amer >60 Normal >60 [facility] Comment on above: Performed By: #### C BC, BMPX ####[facility] [address] [place], [place] [id number])[phone] Director: Reed Mckeon MD Glucose mass conc 74 mg/dL Normal 70-99 [facility] Comment on above: Performed By: #### C BC, BMPX ####[facility] [address] [place], [place] [phone] Director: Reed Mckeon MD Potassium molar conc 4.2 mmol/L Normal 3.7-5.3 [facility] Comment on above: Performed By: #### C BC, BMPX ####[facility] [address] [place], [place] [id number])[phone] Director: Reed Mckeon MD Sodium molar conc 141 mmol/L Normal 135-144 [facility] Comment on above: Performed By: #### C BC, BMPX ####[facility] [address] [place], [place] [phone] Director: Reed Mckeon MD Urea nitrogen mass conc 6 mg/dL Normal 6-20 [facility] Comment on above: Performed By: #### C BC, BMPX ####[facility] [address] [place], [place] [phone] Director: Reed Mckeon MD BUN/CRE Ratio NOT REPORTED Normal 9-20 [facility] Comment on above: Performed By: #### C BC, BMPX ####[facility] [place] [address] [phone] Director: Reed Mckeon MD Staging: NOT REPORTED Normal [facility] Comment on above: Performed By: #### C BC, BMPX ####[facility] [address] [place] [address] [phone] Director: Reed Mckeon MD CBCon 04-16-2018 Erythrocyte distribution width Ratio (RBC) 12.9 % Normal 11.8-14.4 [facility] Comment on above: Performed By: #### C BC, BMPX ####[address] [phone] Director: Reed Mckeon MD Hematocrit Volume Fraction (Bld) 33.9 % Low 36.3-47.1 [facility] Comment on above: Performed By: #### C BC, BMPX ####[facility] [place] [address] [phone] Director: Reed Mckeon MD Hemoglobin mass conc (Bld) 10.6 g/dL Low 11.9-15.1 [facility] Comment on above: Performed By: #### C BC, BMPX ####[facility] [address] [place] [address] [phone] Director: Reed Mckeon MD MCH Entitic mass (RBC) 28.3 pg Normal 25.2-33.5 [facility] Comment on above: Performed By: #### C BC, BMPX ####[facility] [address] [place], [place] [phone] Director: Reed Mckeon MD MCHC mass conc (RBC) 31.3 g/dL Normal 28.4-34.8 [facility] Comment on above: Performed By: #### C BC, BMPX ####[facility] [address] [place], [place] [phone] Director: Reed Mckeon MD MCV Entitic volume (RBC) 90.6 fL Normal 82.6-102.9 [facility] Comment on above: Performed By: #### C BC, BMPX ####[facility] [address] [place] [address] [phone] Director: Reed Mckeon MD NRBC Automated 0.0 per 100 WBC Normal 0.0 [facility] Comment on above: Performed By: #### C BC, BMPX ####[facility] [address] [place], [place] [phone] Director: Reed Mckeon MD Platelet mean volume Entitic volume (Bld) 9.8 fL Normal 8.1-13.5 [facility] Comment on above: Performed By: #### C BC, BMPX ####[facility] [address] [place], [place] [phone] Director: Reed Mckeon MD Platelets #/vol (Bld) 257 10*3/uL Normal 138-453 [facility] Comment on above: Performed By: #### C BC, BMPX ####[facility] [address] [place], [place] [phone] Director: Reed Mckeon MD RBC #/vol (Bld) 3.74 10*6/uL Low 3.95-5.11 [facility] Comment on above: Performed By: #### C BC, BMPX ####[facility] [address] [place] [address] Lab Director: Reed Mckeon MD WBC #/vol (Bld) 5.8 10*3/uL Normal 3.5-11.3 [facility] Comment on above: Performed By: #### C BC, BMPX ####[employer] [place] [address] Lab Director: Reed Mckeon MD Cult,Respiratoryon 9 Cult,Respiratory Specimen Description .EXPECTORATED SPUTUM Special Requests NOT REPORTED Direct Exam >10 EPITHELIAL CELLS/LPF: SPECIMEN IS CONTAMINATED WITH ORAL PHARYNGEAL YOGESH AND IS UNACCEPTABLE FOR BACTERIAL CULTURE. PLEASE SUBMIT ANOTHER SPECIMEN. EVERETTE Mathews NOTIFIED Culture NOT REPORTED Report Status FINAL 04/16/2018 Normal [facility] Comment on above: Performed By: #### R ESPC ####[facility]5[address]xy[address] [place] [address] lab Director: Reed Mckeon MD Troponinon 04-16-2018 Troponin I.cardiac mass conc ng/mL Normal 0-14 [facility] Comment on above: Result Comment: High Sensitivity Troponin values cannot be compared with other Troponin methodologies. Patients with high levels of Biotin oral intake (i.e >5mg/day) may have falsely decreased Troponin levels. Samples collected within 8 hours of biotin intake may require additional information for diagnosis. Performed By: #### T ROPI ####[address] [address] lab Director: Reed Mckeon MD Gram Stainon 04-15-2018 Microscopic observation Gram stain Nom (Unsp spec) Specimen Description .EXPECTORATED SPUTUM Special Requests NOT REPORTED Direct Exam DUPLICATE ORDER Report Status FINAL 04/15/2018 Normal [facility] Comment on above: Performed By: #### P PPVS #### [address] [address] HCG Screen, Bloodon 04-16-19 19 HCG Qn Negative Normal NEG [facility] Comment on above: Result Comment: Spec imens with hCG levels near the threshold of the test (25 mIU/mL) may give a negative or indeterminate result. In such cases, another test should be performed with a new specimen in 48-72 hours. If early is suspected clinically in this setting, correlation with quantitative serum b-hCG level is suggested. [employer] has confirmed the use of plasma for this test. This has not been cleared or approved by the U.S. Food and Drug Administration. The FDA has determined that such clearance is not necessary. Performed By: #### P PPVS #### [address] [address] Legionella Ag, Uron 04-16-19 19 Legionella Ag, [...] this test. Report Status FINAL 04/15/2018 Normal [facility] Comment on above: Performed By: #### U LAG ####[address] [address] Lab Director: Reed Mckeon MD Resp Viral Panelon 9 Adenovirus Not Detected Normal [facility] Comment on above: Performed By: #### P PPVS #### [address] [address] Bordetella pertussis Not Detected Normal [facility] Comment on above: Performed By: #### P PPVS #### [address] [address] Chlamyd.pneumoniae Not Detected Normal [facility] Comment on above: Performed By: #### P PPVS #### [address] [address] Coronavirus 229E Not Detected Normal [facility] Comment on above: Performed By: #### P PPVS #### [address] [address] Coronavirus HKU1 Not Detected Normal [facility] Comment on above: Performed By: #### P PPVS #### [address] [address] Coronavirus NL63 Not Detected Normal [facility] Comment on above: Performed By: #### P PPVS #### [facility] MeriTaleem [address] [place] [address] Coronavirus OC43 Not Detected Normal [facility] Comment on above: Performed By: #### P PPVS #### [address] [address] Human Metapneumo Not Detected Normal [facility] Comment on above: Performed By: #### P PPVS #### [facility] MeriTaleem [address] [place] [address] Influenza A Not Detected Normal [facility] Comment on above: Performed By: #### P PPVS #### [address] [address] Influenza B Not Detected Normal [facility] Comment on above: Performed By: #### P PPVS #### [facility] MeriTaleem [address] [place] [address] Mycoplas.pneumoniae Not Detected Normal [facility] Comment on above: Result Comment: Perf ormed by multiplexed nucleic acid assay. Performed By: #### P PPVS #### [facility] Mer[address]em [address] [place] [address] Parainfluenza 1 Not Detected Normal [facility] Comment on above: Performed By: #### P PPVS #### [facility] Mer[address]em [address] [place] [address] Parainfluenza 2 Not Detected Normal [facility] Comment on above: Performed By: #### P PPVS #### [address] [address] Parainfluenza 3 Not Detected Normal [facility] Comment on above: Performed By: #### P PPVS #### [address] [address] Parainfluenza 4 Not Detected Normal [facility] Comment on above: Performed By: #### P PPVS #### [address] [address] Resp Syncytial Virus Not Detected Normal [facility] Comment on above: Performed By: #### P PPVS #### [address] [address] Rhino/Enterovirus Not Detected Normal [facility] Comment on above: Performed By: #### P PPVS #### [address] [address] Influenza A H1 NOT REPORTED Normal [facility] Comment on above: Performed By: #### P PPVS #### [address] [address] Influenza A H1-2009 NOT REPORTED Normal [facility] Comment on above: Performed By: #### P PPVS #### [address] [address] Influenza A H3 NOT REPORTED Normal [facility] Comment on above: Performed By: #### P PPVS #### [address] [address] Source: .NASOPHARYNGEAL SWAB Normal [facility] Comment on above: Performed By: #### P PPVS #### [address] [address] Strep pneum Ag,CSF/Uron 03-0 Strep pneum Ag,CSF/Ur Specimen Descripti on .CLEAN CATCH URINE Special Requests NOT REPORTED Direct Exam NEGATIVE: Strep pneumoniae antigen not detected Report Status FINAL 04/15/2018 Normal [facility] Comment on above: Performed By: #### S PAG ####[facility] [address] [place] [address] [id number] Lab Director: Reed Mckeon MD Troponinon 04-15-2018 Troponin I.cardiac mass conc NOT REPORTED Normal <0.03 [facility] Comment on above: Performed By: #### T ROPI ####[address] [phone] lab Director: Reed Mckeon MD Troponin I.cardiac mass conc ng/mL Normal 0-14 [facility] Comment on above: Result Comment: High Sensitivity Troponin values cannot be compared with other Troponin methodologies. Patients with high levels of Biotin oral intake (i.e >5mg/day) may have falsely decreased Troponin levels. Samples collected within 8 hours of biotin intake may require additional information for diagnosis. Performed By: #### P PPVS #### [facility] MeriTaleem [address] [place] [address] [phone] Troponin I.cardiac mass conc NOT REPORTED Normal <0.03 [facility] Comment on above: Performed By: #### P PPVS #### [facility] MeriTaleem [address] [place] [address] [phone] XR CHEST PORTABLEon 04-16-19 19 XR CHEST PORTABLE EXAMINATION: SINGLE XRAY VIEW OF THE CHEST 04/15/2018 3:19 pm COMPARISON: 04/02/2018 HISTORY: ORDERING SYSTEM PROVIDED HISTORY: transferred from outlying facility due to PNA. POD#3 s/p lap sleeve gastrectomy. TECHNOLOGIST PROVIDED HISTORY: [facility]. POD#3 s/p lap [...] Brando Agustin MD 04/15/18 Final result Normal [facility] FL ESOPHAGRAMon 04-14-2018 FL ESOPHAGRAM EXAMINATION: [...] persistent dysphagia and burning sensation. FINDINGS: Fluoroscopic admitted attorneys images were obtained of the upper abdomen [...] Steve Topete MD 04/14/18 Final result Normal [facility] Basic Metabolic Profon 04-13 (cont.) Normal [facility] Comment on above: Result Comment: Aver age GFR for 20-29 years old: 116 mL/min/1.73sq m Chronic Kidney Disease: <60 mL/min/1.73sq m Kidney failure: <15 mL/min/1.73sq m eGFR calculated using average adult body mass. Additional eGFR calculator available at: http://www.[employer] Stamp.com/multiple_crcl_2012.htm Performed By: #### P PPVS #### [address] [address] Anion gap molar conc 11 mmol/L Normal 9-17 [facility] Comment on above: Performed By: #### P PPVS #### [address] [address] Calcium mass conc 8.8 mg/dL Normal 8.6-10.4 [facility] Comment on above: Performed By: #### P PPVS #### [address] [address] Chloride molar conc 104 mmol/L Normal 98-107 [facility] Comment on above: Performed By: #### P PPVS #### [address] [address] CO2 molar conc 24 mmol/L Normal 20-31 [facility] Comment on above: Performed By: #### P PPVS #### [address] [address] Creatinine mass conc 0.68 mg/dL Normal 0.50-0.90 [facility] Comment on above: Performed By: #### P PPVS #### [address] [address] GFR, Amer >60 Normal >60 [facility] Comment on above: Performed By: #### P PPVS #### [address] [address] GFR,non Amer >60 Normal >60 [facility] Comment on above: Performed By: #### P PPVS #### [address] [address] Glucose mass conc 90 mg/dL Normal 70-99 [facility] Comment on above: Performed By: #### P PPVS #### [address] [address] Potassium molar conc 4.4 mmol/L Normal 3.7-5.3 [facility] Comment on above: Performed By: #### P PPVS #### [address] [address] Sodium molar conc 139 mmol/L Normal 135-144 [facility] Comment on above: Performed By: #### P PPVS #### [address] [address] Urea nitrogen mass conc 5 mg/dL Low 6-20 [facility] Comment on above: Performed By: #### P PPVS #### [address] [address] BUN/CRE Ratio NOT REPORTED Normal 9-20 [facility] Comment on above: Performed By: #### P PPVS #### [address] [address] Staging: NOT REPORTED Normal [facility] Comment on above: Performed By: #### P PPVS #### [address] [address] CBCon 04-13-2018 Erythrocyte distribution width Ratio (RBC) 12.9 % Normal 11.8-14.4 [facility] Comment on above: Performed By: #### P PPVS #### [facility] MeriTaleem [address] [place] [address] Hematocrit Volume Fraction (Bld) 36.8 % Normal 36.3-47.1 [facility] Comment on above: Performed By: #### P PPVS #### [address] [address] Hemoglobin mass conc (Bld) 11.7 g/dL Low 11.9-15.1 [facility] Comment on above: Performed By: #### P PPVS #### [address] [address] MCH Entitic mass (RBC) 28.3 pg Normal 25.2-33.5 [facility] Comment on above: Performed By: #### P PPVS #### [address] [address] MCHC mass conc (RBC) 31.8 g/dL Normal 28.4-34.8 [facility] Comment on above: Performed By: #### P PPVS #### [address] [address] MCV Entitic volume (RBC) 88.9 fL Normal 82.6-102.9 [facility] Comment on above: Performed By: #### P PPVS #### [address] [address] NRBC Automated 0.0 per 100 WBC Normal 0.0 [facility] Comment on above: Performed By: #### P PPVS #### [address] [address] Platelet mean volume Entitic volume (Bld) 10.1 fL Normal 8.1-13.5 [facility] Comment on above: Performed By: #### P PPVS #### [address] [address] Platelets #/vol (Bld) 306 10*3/uL Normal 138-453 [facility] Comment on above: Performed By: #### P PPVS #### [address] [address] RBC #/vol (Bld) 4.14 10*6/uL Normal 3.95-5.11 [facility] Comment on above: Performed By: #### P PPVS #### [facility] MeriTaleem [facility] [place] [address] WBC #/vol (Bld) 8.1 10*3/uL Normal 3.5-11.3 [facility] Comment on above: Performed By: #### P PPVS #### [facility] [address] [place] [address] FL ESOPHAGRAMon 04-13-2018 FL ESOPHAGRAM EXAMINATION: SINGLE [...] Jordan Mejia MD 04/13/18 Final result Normal [facility] Basic Metabolic Profon 04-12 (cont.) Normal [facility] Comment on above: Result Comment: Aver age GFR for 20-29 years old: 116 mL/min/1.73sq m Chronic Kidney Disease: <60 mL/min/1.73sq m Kidney failure: <15 mL/min/1.73sq m eGFR calculated using average adult body mass. Additional eGFR calculator available at: http://www.[employer]capson/multiple_crcl_2011.htm Performed By: #### C BC, BMP #### [facility] [address] [place], [place] [phone] Hair Tinter: Reed Mckeon MD Anion gap molar conc 16 mmol/L Normal 9-17 [facility] Comment on above: Performed By: #### C BC, BMP #### [facility] [address] [place] [address] Hair Tinter: Reed Mckeon MD Calcium mass conc 8.9 mg/dL Normal 8.6-10.4 [facility] Comment on above: Performed By: #### C BC, BMP #### [facility] [address] [place] [address] Hair Tinter: Reed Mckeon MD Chloride molar conc 108 mmol/L High 98-107 [facility] Comment on above: Performed By: #### C BC, BMP #### [facility] [address] [place] [address] Hair Tinter: Reed Mckeon MD CO2 molar conc 19 mmol/L Low 20-31 [facility] Comment on above: Performed By: #### C BC, BMP #### [facility] [address] [place] [address] Hair Tinter: Reed Mckeon MD Creatinine mass conc 0.62 mg/dL Normal 0.50-0.90 [facility] Comment on above: Performed By: #### C BC, BMP #### [facility] [address] [place] [address] Hair Tinter: Reed Mckeon MD GFR, Amer >60 Normal >60 [facility] Comment on above: Performed By: #### C BC, BMP #### [facility] [address] [place] [phone] Hair Tinter: Reed Mckeon MD GFR,non Amer >60 Normal >60 [facility] Comment on above: Performed By: #### C BC, BMP #### [facility] [address] [place] [address] Hair Tinter: Reed Mckeon MD Glucose mass conc 124 mg/dL High 70-99 [facility] Comment on above: Performed By: #### C BC, BMP #### [facility] [address] [place] [address] Hair Tinter: Reed Mckeon MD Potassium molar conc 4.2 mmol/L Normal 3.7-5.3 [facility] Comment on above: Performed By: #### C BC, BMP #### [facility] [address] [place] [address] Hair Tinter: Reed Mckeon MD Sodium molar conc 143 mmol/L Normal 135-144 [facility] Comment on above: Performed By: #### C BC, BMP #### [facility] [address] [place] [address] Hair Tinter: Reed Mckeon MD Urea nitrogen mass conc 8 mg/dL Normal 6-20 [facility] Comment on above: Performed By: #### C BC, BMP #### [facility] [address] [place] [address] Hair Tinter: Reed Mckeon MD BUN/CRE Ratio NOT REPORTED Normal -20 [facility] Comment on above: Performed By: #### C BC, BMP #### [facility] [address] [place] [address] Hair Tinter: Reed Mckeon MD Staging: NOT REPORTED Normal [facility] Comment on above: Performed By: #### C BC, BMP #### [facility] [address] [place] [address] Hair Tinter: Reed Mckeon MD CBCon 04-12-2018 Erythrocyte distribution width Ratio (RBC) 12.6 % Normal 11.8-14.4 [facility] Comment on above: Performed By: #### C BC, BMP #### [facility] [address] [place] [address] Hair Tinter: Reed Mckeon MD Hematocrit Volume Fraction (Bld) 44.2 % Normal 36.3-47.1 [facility] Comment on above: Performed By: #### C BC, BMP #### [address] [address] Hair Tinter: Reed Mckeon MD Hemoglobin mass conc (Bld) 13.8 g/dL Normal 11.9-15.1 [facility] Comment on above: Performed By: #### C BC, BMP #### [address] [address] Hair Tinter: Reed Mckeon MD MCH Entitic mass (RBC) 28.4 pg Normal 25.2-33.5 [facility] Comment on above: Performed By: #### C BC, BMP #### [address] [address] Hair Tinter: Reed Mckeon MD MCHC mass conc (RBC) 31.2 g/dL Normal 28.4-34.8 [facility] Comment on above: Performed By: #### C BC, BMP #### [address] [address] Hair Tinter: Reed Mckeon MD MCV Entitic volume (RBC) 90.9 fL Normal 82.6-102.9 [facility] Comment on above: Performed By: #### C BC, BMP #### [address] [address] Hair Tinter: Reed Mckeon MD NRBC Automated 0.0 per 100 WBC Normal 0.0 [facility] Comment on above: Performed By: #### C BC, BMP #### [address] [address] Hair Tinter: Reed Mckeon MD Platelet mean volume Entitic volume (Bld) 10.2 fL Normal 8.1-13.5 [facility] Comment on above: Performed By: #### C BC, BMP #### [facility] [address] [place] [address] Hair Tinter: Reed Mckeon MD Platelets #/vol (Bld) 299 10*3/uL Normal 138-[address] [facility] Comment on above: Performed By: #### C BC, BMP #### [facility] [address] [place] [address] Hair Tinter: Reed Mckeon MD RBC #/vol (Bld) 4.86 10*6/uL Normal 3.95-5.11 [facility] Comment on above: Performed By: #### C BC, BMP #### [facility] [address] [place] [address] Hair Tinter: Reed Mckeon MD WBC #/vol (Bld) 18.0 10*3/uL High 3.5-11.3 [facility] Comment on above: Performed By: #### C BC, BMP #### [facility] [address] [place] [address] Hair Tinter: Reed Mckeon MD Surgical Pathologyon 019 Surgical Pathology (NOTE) [id number] [facility] CONSULTING PATHOLOGISTS [facility] [address] [place] [phone] SURGICAL PATHOLOGY CONSULTATION Patient Name: ANTOINETTE RECIO [facility] Rec: [id number] Path Number: [id number] Collected: 04/12/2018 Received: 04/12/2018 Reported: 04/13/2018 13:37 [...] with no areas of granularity or masses. Promotions Assistant [employer] sections 1cs. tm Microscopic Description The gastric mucosa shows intact architecture and no active or chronic inflammation. There is no histological evidence for Helicobacter. There is no intestinal metaplasia or dysplasia. The submucosa and muscularis propria show no histologic abnormality. Normal [facility] Comment on above: Performed By: #### P PPVS #### [address] [address] Nicotineon 04-08-2018 [id number] <2 [facility] Comment on above: Performed By: #### C BC, PT, PTT, BMP #### [facility] [address] [place] [address] Hair Tinter: Reed Mckeon MD #### ANICOT #### [facility] [address] [place], [place] [id number] Hair Tinter: Eduin Alvarez MD Cotinine <2 [facility] Comment on above: Performed By: #### C BC, PT, PTT, BMP #### [facility] [address] [place] [address] Hair Tinter: Reed Mckeon MD #### ANICOT #### [facility] [address] [place] [address] Hair Tinter: Eduin Alvarez MD Nicotine <2 [facility] Comment on above: Result Comment: (NOT [...] positive. Test developed and characteristics determined by [facility]. See Compliance Statement B: [employer]/ Performed by [facility], [address] [place] [address] [id number] [email or web address], Eduin Alvarez MD, Lab. Director Performed By: #### C BC, PT, PTT, BMP #### [place] [id number] Hair Tinter: Reed Mckeon MD #### ANICOT #### [place] [id number] Hair Tinter: Eduin Alvarez MD APTTon 04-02-2018 aPTT Coag time (Bld) 24.7 s Normal 20.5-30.5 [facility] Comment on above: Performed By: #### C BC, PT, PTT, BMP #### [facility] [address] [place] [address] Hair Tinter: Reed Mckeon MD #### ANICOT #### [address] [address] Hair Tinter: Eduin Alvarez MD Basic Metabolic Profon 04-02 (cont.) Normal [facility] Comment on above: Result Comment: Aver age GFR for 20-29 years old: 116 mL/min/1.73sq m Chronic Kidney Disease: <60 mL/min/1.73sq m Kidney failure: <15 mL/min/1.73sq m eGFR calculated using average adult body mass. Additional eGFR calculator available at: http://www.[employer]capson/multiple_crcl_2012.htm Performed By: #### C BC, PT, PTT, BMP #### [address] [address] Hair Tinter: Reed Mckeon MD #### ANICOT #### [facility] [address] [place] [address] Hair Tinter: Eduin Alvarez MD Anion gap molar conc 15 mmol/L Normal 9-17 [facility] Comment on above: Performed By: #### C BC, PT, PTT, BMP #### [address] [address] Hair Tinter: Reed Mckeon MD #### ANICOT #### [address] [address] Hair Tinter: Eduin Alvarez MD Calcium mass conc 9.6 mg/dL Normal 8.6-10.4 [facility] Comment on above: Performed By: #### C BC, PT, PTT, BMP #### [address] [address] Hair Tinter: Reed Mckeon MD #### ANICOT #### [address] [address] Hair Tinter: Ediun Alvarez MD Chloride molar conc 102 mmol/L Normal 98-107 [facility] Comment on above: Performed By: #### C BC, PT, PTT, BMP #### [address] [address] Hair Tinter: Reed Mckeon MD #### ANICOT #### [facility] [address] [place] [address] Hair Tinter: Eduin Alvarez MD CO2 molar conc 23 mmol/L Normal 20-31 [facility] Comment on above: Performed By: #### C BC, PT, PTT, BMP #### [address] [address] Hair Tinter: Reed Mckeon MD #### ANICOT #### [facility] [address] [place] [address] Hair Tinter: Eduin Alvarez MD Creatinine mass conc 0.62 mg/dL Normal 0.50-0.90 [facility] Comment on above: Performed By: #### C BC, PT, PTT, BMP #### [facility] [address] [place] [address] Hair Tinter: Reed Mckeon MD #### ANICOT #### [facility] [address] [place] [address] Hair Tinter: Eduin Alvarez MD GFR, Amer >60 Normal >60 [facility] Comment on above: Performed By: #### C BC, PT, PTT, BMP #### [address] [address] Hair Tinter: eRed Mckeon MD #### ANICOT #### [facility] [address] [place] [address] Hair Tinter: Eduin Alvarez MD GFR,non Amer >60 Normal >60 [facility] Comment on above: Performed By: #### C BC, PT, PTT, BMP #### [address] [address] Hair Tinter: Reed Mckeon MD #### ANICOT #### [facility] [address] [place], [place] [id number] Hair Tinter: Eduin Alvarez MD Glucose mass conc 86 mg/dL Normal 70-99 [facility] Comment on above: Performed By: #### C BC, PT, PTT, BMP #### [facility] [address] [place] [address] Hair Tinter: Reed Mckeon MD #### ANICOT #### [facility] [address] [place] [address] Hair Tinter: Eduin Alvarez MD Potassium molar conc 4.2 mmol/L Normal 3.7-5.3 [facility] Comment on above: Performed By: #### C BC, PT, PTT, BMP #### [address] [address] Hair Tinter: Reed Mckeon MD #### ANICOT #### [facility] [address] [place] [address] Hair Tinter: Eduin Alvarez MD Sodium molar conc 140 mmol/L Normal 135-144 [facility] Comment on above: Performed By: #### C BC, PT, PTT, BMP #### [address] [address] Hair Tinter: Reed Mckeon MD #### ANICOT #### [facility] [address] [place], [place] [id number] Hair Tinter: Eduin Alvarez MD Urea nitrogen mass conc 15 mg/dL Normal 6-20 [facility] Comment on above: Performed By: #### C BC, PT, PTT, BMP #### [address] [address] Hair Tinter: Reed Mckeon MD #### ANICOT #### [facility] [address] [place], [place] [id number] Hair Tinter: Eduin Alvarez MD BUN/CRE Ratio NOT REPORTED Normal 9-20 [facility] Comment on above: Performed By: #### C BC, PT, PTT, BMP #### [address] [address] Hair Tinter: Reed Mckeon MD #### ANICOT #### [facility] [address] [place], [place] [id number] Hair Tinter: Eduin Alvarez MD Staging: NOT REPORTED Normal [facility] Comment on above: Performed By: #### C BC, PT, PTT, BMP #### [facility] [address] [place] [address] Hair Tinter: Reed Mckeon MD #### ANICOT #### [facility] [address] [place], [place] [id number] Hair Tinter: Eduin Alvarez MD CBCon 04-02-2018 Erythrocyte distribution width Ratio (RBC) 12.0 % Normal 11.8-14.4 [facility] Comment on above: Performed By: #### C BC, PT, PTT, BMP #### [facility] [address] [place] [address] Hair Tinter: Reed Mckeon MD #### ANICOT #### [facility] [address] [place] [address] Hair Tinter: Eduin Alvarez MD Hematocrit Volume Fraction (Bld) 41.3 % Normal 36.3-47.1 [facility] Comment on above: Performed By: #### C BC, PT, PTT, BMP #### [facility] [address] [place] [address] [phone] Hair Tinter: Reed Mckeon MD #### ANICOT #### [facility] [address] [place], [place] [id number] Hair Tinter: Eduin Alvarez MD Hemoglobin mass conc (Bld) 13.7 g/dL Normal 11.9-15.1 [facility] Comment on above: Performed By: #### C BC, PT, PTT, BMP #### [address] [address] Hair Tinter: Reed Mckeon MD #### ANICOT #### [facility] [address] [place], [place] [id number] Hair Tinter: Eduin Alvarez MD MCH Entitic mass (RBC) 28.4 pg Normal 25.2-33.5 [facility] Comment on above: Performed By: #### C BC, PT, PTT, BMP #### [address] [address] Hair Tinter: Reed Mckeon MD #### ANICOT #### [address] [id number] Hair Tinter: Eduin Alvarez MD MCHC mass conc (RBC) 33.2 g/dL Normal 28.4-34.8 [facility] Comment on above: Performed By: #### C BC, PT, PTT, BMP #### [address] [phone] Hair Tinter: Reed Mckeon MD #### ANICOT #### [address] [address] Hair Tinter: Eduin Alvarez MD MCV Entitic volume (RBC) 85.7 fL Normal 82.6-102.9 [facility] Comment on above: Performed By: #### C BC, PT, PTT, BMP #### [address] [address] Hair Tinter: Reed Mckeon MD #### ANICOT #### [address] [address] Hair Tinter: Eduin Alvarez MD NRBC Automated 0.0 per 100 WBC Normal 0.0 [facility] Comment on above: Performed By: #### C BC, PT, PTT, BMP #### [place] [address] Hair Tinter: Reed Mckeon MD #### ANICOT #### [facility] [address] [place], [place] [id number] Hair Tinter: Eduin Alvarez MD Platelet mean volume Entitic volume (Bld) 9.4 fL Normal 8.1-13.5 [facility] Comment on above: Performed By: #### C BC, PT, PTT, BMP #### [address] [address] Hair Tinter: Reed Mckeon MD #### ANICOT #### [facility] [address] [place] [address] Hair Tinter: Eduin Alvarez MD Platelets #/vol (Bld) 392 10*3/uL Normal 138-453 [facility] Comment on above: Performed By: #### C BC, PT, PTT, BMP #### [address] [address] Hair Tinter: Reed Mckeon MD #### ANICOT #### [facility] [address] [address] Hair Tinter: Eduin Alvarez MD RBC #/vol (Bld) 4.82 10*6/uL Normal 3.95-5.11 [facility] Comment on above: Performed By: #### C BC, PT, PTT, BMP #### [address] [address] Hair Tinter: Reed Mckeon MD #### ANICOT #### [facility] [address] [place] [address] Hair Tinter: Eduin Alvarez MD WBC #/vol (Bld) 10.4 10*3/uL Normal 3.5-11.3 [facility] Comment on above: Performed By: #### C BC, PT, PTT, BMP #### [address] [address] Hair Tinter: Reed Mckeon MD #### ANICOT #### [facility] [address] [place] [address] Hair Tinter: Eduin Alvarez MD PTon 04-02-2018 INR Coag RelTime (PPP) 1.0 {INR} Normal [facility] Comment on above: Result Comment: Therapeutic Range: Moderate Anticoagulant Intensity: INR = 2.0-3.0 High Anticoagulant Intensity: INR = 2.5-3.5 Performed By: #### C BC, PT, PTT, BMP #### [facility] [address] [place] [address] Hair Tinter: Reed Mckeon MD #### ANICOT #### [facility] [address] [place] [address] Hair Tinter: Eduin Alvarez MD Prothrombin time (PT) Coag time (PPP) 10.3 s Normal 9.0-12.0 [facility] Comment on above: Performed By: #### C BC, PT, PTT, BMP #### [facility] [address] [place] [address] [phone] Hair Tinter: Reed Mckeon MD #### ANICOT #### [facility] [address] [place] [address] Hair Tinter: Eduin Alvarez MD XR CHEST (2 VW)on [...] Mijares Jr., DO 04/02/18 Final result Normal [facility] H. pylori Detectionon 2017 H. pylori Detection Specimen Description .TISSUE, STOMACH BIOPSY Special Requests LOT [id number] EXP FEB 2018 [place] [facility] on this test is within expected limits. Direct Exam NEGATIVE Report Status FINAL 12/05/2017 Normal [facility] Comment on above: Performed By: #### H GENET #### [facility] [address] [place] [address] Surgical Pathologyon Surgical Pathology (NOTE) [id number] [facility] CON[facility] [address] [place] [phone] SURGICAL PATHOLOGY CONSULTATION Patient Name: ANTOINETTE RECIO [facility] Rec: [id number] Path Number: [id number] Collected: 12/04/2017 Received: 12/04/2017 Reported: 12/07/2017 12:25 [...] tm Microscopic Description Microscopic examination performed. Normal [facility] Comment on above: Performed By: #### P PPVS #### [facility] [address] [place] [address] [phone] Vital Signs Date Time Vital Sign Value Performing Clinician Tahira luz 11-26-2023 15:24-0400 Diastolic blood pressure 72 mm[Hg] PHYSICIAN NO [facility] 11-26-2023 15:24-0400 Heart rate 87 /min PHYSICIAN NO [facility] 11-26-2023 15:24-0400 Respiratory rate 20 /min PHYSICIAN NO [facility] 11-26-2023 15:24-0400 SaO2% (BldA) [Mass fraction] 97 % PHYSICIAN NO [facility] 11-26-2023 15:24-0400 Systolic blood pressure 123 mm[Hg] PHYSICIAN NO [facility] 11-26-2023 13:54-0400 Body height 165.1 cm PHYSICIAN NO [facility] 11-26-2023 12:00-0400 Body temperature 98.2 [degF] PHYSICIAN NO [facility] 11-26-2023 04:12-0400 Body weight 67.4 kg PHYSICIAN NO [facility] 05-05-2023 15:13-0400 Body mass index (BMI) [Ratio] 29.32 kg/m2 Nieves Velasquez MD Work Phone: [facility] 05-05-2023 15:13-0400 Body weight 79.92 kg Nieves Velasquez MD Work Phone: [facility] 05-05-2023 15:13-0400 Diastolic blood pressure 84 mm[Hg] Nieves Velasquez MD Work Phone: [facility] 05-05-2023 15:13-0400 Systolic blood pressure 126 mm[Hg] Nieves Velasquez MD Work Phone: [facility] 11-30-2022 07:30-0400 Body temperature 97.9 [degF] PHYSICIAN NO [facility] 11-30-2022 07:30-0400 Diastolic blood pressure 104 mm[Hg] PHYSICIAN NO [facility] 11-30-2022 07:30-0400 Heart rate 68 /min PHYSICIAN NO [facility] 11-30-2022 07:30-0400 Respiratory rate 18 /min PHYSICIAN NO [facility] 11-30-2022 07:30-0400 SaO2% (BldA) [Mass fraction] 99 % PHYSICIAN NO [facility] 11-30-2022 07:30-0400 Systolic blood pressure 155 mm[Hg] PHYSICIAN NO [facility] 11-28-2022 14:23-0400 Body height 165.1 cm PHYSICIAN NO [facility] 11-27-2022 16:19-0400 Body weight 85.72 kg PHYSICIAN NO [facility] 11-27-2022 14:57-0400 Diastolic blood pressure 90 mm[Hg] PHYSICIAN NO [facility] 11-27-2022 14:57-0400 Heart rate 86 /min PHYSICIAN NO [facility] 11-27-2022 14:57-0400 Respiratory rate 18 /min PHYSICIAN NO [facility] 11-27-2022 14:57-0400 SaO2% (BldA) [Mass fraction] 98 % PHYSICIAN NO [facility] 11-27-2022 14:57-0400 Systolic blood pressure 142 mm[Hg] PHYSICIAN NO [facility] 11-27-2022 09:40-0400 Body height 165.1 cm PHYSICIAN NO [facility] 11-27-2022 09:40-0400 Body temperature 98.5 [degF] PHYSICIAN NO [facility] 11-27-2022 09:40-0400 Body weight 86.5 kg PHYSICIAN NO [facility] 05-13-2022 12:00-0400 Body temperature 98 [degF] PHYSICIAN NO [facility] 05-13-2022 12:00-0400 Diastolic blood pressure 79 mm[Hg] PHYSICIAN NO [facility] 05-13-2022 12:00-0400 Heart rate 102 /min PHYSICIAN NO [facility] 05-13-2022 12:00-0400 Respiratory rate 18 /min PHYSICIAN NO [facility] 05-13-2022 12:00-0400 SaO2% (BldA) [Mass fraction] 94 % PHYSICIAN NO [facility] 05-13-2022 12:00-0400 Systolic blood pressure 113 mm[Hg] PHYSICIAN NO [facility] 05-12-2022 09:00-0400 Body weight 79.83 kg PHYSICIAN NO [facility] 05-09-2022 14:19-0400 Body height 165.1 cm PHYSICIAN NO [facility] 05-09-2022 04:22-0400 Diastolic blood pressure 79 mm[Hg] PHYSICIAN NO [facility] 05-09-2022 04:22-0400 Systolic blood pressure 118 mm[Hg] PHYSICIAN NO [facility] 05-09-2022 01:14-0400 Heart rate 103 /min PHYSICIAN NO [facility] 05-09-2022 01:14-0400 Respiratory rate 18 /min PHYSICIAN NO [facility] 05-09-2022 01:14-0400 SaO2% (BldA) [Mass fraction] 97 % PHYSICIAN NO [facility] 05-08-2022 23:48-0400 Body height 165.1 cm PHYSICIAN NO [facility] 05-08-2022 23:48-0400 Body temperature 97.5 [degF] PHYSICIAN NO [facility] 05-08-2022 23:48-0400 Body weight 77.11 kg PHYSICIAN NO [facility] Encounters Encounter Date Encounter Type Care Provider Facility Start: 11-26-2023 Non-patient / Non-visit PHYSICIAN NO [facility] OutPt Work Phone: Start: 11-26-2023 End: 11-26-[facility] Start: 11-26-2023 End: 11-26-2023 Evaluation and management of inpatient PHYSICIAN NO [facility] Work Phone: Start: 11-26-2023 End: 11-26-2023 observation encounter PHYSICIAN NO [facility] Work Phone: Start: 11-25-2023 End: 11-25-2023 Telephone encounter Alexis Kaelyn DO Work Phone: [facility] Start: 11-12-2023 End: 11-12-2023 Clinisync Result Encounter Eligio Priyanka DO Work Phone: [facility] Unsolicited Start: 11-12-2023 End: 11-12-2023 Clinisync Result Encounter Eligio Priyanka DO Work Phone: [facility] Unsolicited Start: 11-10-2023 End: 11-10-2023 ambulatory PHYSICIAN NO [facility] Work Phone: Start: 11-10-2023 End: 11-10-2023 Departed Referred PHYSICIAN NO [facility] Start: 11-10-2023 End: 11-10-2023 Clinisync Result Encounter Eligio Saucedao DO Work Phone: [facility] External Department Unsolicited Start: 11-10-2023 End: 11-10-2023 Clinisync Result Encounter Eligio Saucedao DO Work Phone: [facility] External [facility] Unsolicited Start: 11-04-2023 End: 11-04-2023 ambulatory ELIGIO SAUCEDAO Not Available Start: 09-15-2023 End: 09-15-2023 ambulatory [facility] Start: 08-12-2023 End: 08-12-2023 ambulatory [facility] Start: 06-16-2023 End: 06-16-2023 Emergency department patient visit NO PCP NO PCP [facility] Start: 06-03-2023 End: 06-03-2023 ambulatory NO PCP NO PCP [facility] Ambulatory [facility] Start: 05-05-2023 End: 05-05-2023 ambulatory [facility] Start: 05-05-2023 Encounter for gynecological examination (general) (routine) without abnormal findings [facility] Start: 05-05-2023 End: 05-05-2023 Office outpatient visit 25 minutes Nieves Velasquez MD Work Phone: [facility] Comment on above: GA: [id number] Start: 05-05-2023 End: 05-05-2023 Patient encounter status Nieves Velasquez MD Work Phone: [facility] Start: 05-05-2023 End: 05-05-2023 ambulatory [facility] Start: 05-05-2023 Encounter for gynecological examination (general) (routine) without abnormal findings [facility] Start: 04-16-2023 End: 04-16-2023 ambulatory [facility] Start: 04-14-2023 End: 04-14-2023 Initial care visit Lynn Deleon PARCEL POST CARRIER-MYSQL DEVELOPER Work Phone: [facility]ne[facility] Comment on above: First trimester preg bal (Primary Dx); HTN in , chronic; History of gestational diabetes in prior , currently ; Nausea/vomiting in Start: 04-14-2023 End: 04-14-2023 ambulatory LYNN M [facility] Start: 03-30-2023 End: 03-31-2023 Emergency department patient visit NICOLASA Deniz TUCKER [facility] Start: 11-27-2022 End: 11-30-2022 Evaluation and management of inpatient PHYSICIAN NO [facility] Work Phone: Start: 05-09-2022 End: 05-13-2022 Evaluation and management of inpatient PHYSICIAN NO [facility] Work Phone: Start: 12-19-2021 End: 12-20-2021 ambulatory [facility] Start: 03-17-2021 End: 03-18-[address] CATALAN LISTED REQUEST Facility: Start: 06-11-2020 End: 06-14-2020 ambulatory REFERRED SELF Facility:[facility] Start: 06-10-2020 End: 06-10-[address] PRO BOSTON Facility: Start: 04-15-2018 End: 04-16-2018 Patient encounter procedure VIPUL TRIPATHI [facility] Start: 04-12-2018 End: 04-14-2018 Evaluation and management of inpatient [facility]ER [facility] Start: 04-02-2018 Encounter for preprocedural respiratory examination [facility] Start: 04-02-2018 Encounter for other preprocedural examination CHER [facility] Start: 04-02-2018 End: 04-07-2018 Patient encounter procedure [facility]ER [facility] Start: 12-04-2017 End: 12-04-2017 Patient encounter procedure CHER [facility] Encounter for other preprocedural examination CHER MARAVILLA [facility] Procedures Date Procedure Procedure Detail Performing [...] STEVENS Start: 04-16-2018 INTAKE AND OUTPUT KRISTA MARAVILLA Start: 04-16-2018 INCENTIVE SPIROMETRY RT CHER MARAVILLA Start: 04-15-2018 INCENTIVE SPIROMETRY RT CHER MARAVILLA Start: 04-15-2018 Virus centrifuge enh ncd id imfluor stain ea CHER MARAVILLA Start: 04-15-2018 INCENTIVE SPIROMETRY RT CHER TAIWO Start: 04-15-2018 Assay of troponin quantitative CHER [...] INCENTIVE SPIROMETRY RT CHER TAIWO Start: 04-15-2018 IP CONSULT TO IV TEAM G TANYAKAVITHA TAIWO Start: 04-15-2018 Radiologic exam ches t single view CHER TAIWO Start: 04-15-2018 DIET BARIATRIC CLEAR LIQUID CHER TAIWO Start: 04-15-2018 PATIENT STATUS (DIRECT) CHER MARAVILLA Start: 04-15-2018 Iadna respiratry pro be & rev trnscr 12 target CHER MARAVILLA Start: 04-15-2018 INCENTIVE SPIROMETRY RT CHER MARAVILLA Start: 04-15-2018 Assay of troponin quantitative CHER MARAVILLA Start: 04-15-2018 Culture bacterial bl ood aerobic w/id isolates CHER MRAAVILLA Start: 04-15-2018 Gonadotropin chorion ic qualitative CHER [...] MARAVILLA Start: 04-14-2018 PULSE OXIMETRY, CONTINUOUS CHER MARAVLILA Start: 04-14-2018 Radex esophagus CHER MARAVILLA Start: [...] Treatment Date Care Activity Detail Author Start: 04-20-2045 Shingles (RZV) Vacci ne (1 of 2) Shingles (RZV) Vaccine (1 of 2) [facility] Start: 12-21-2030 DTaP,Tdap and Td Vaccines (3 - Td or Tdap) DTaP,Tdap and Td Vaccines (3 - Td or Tdap) [facility] Start: 05-04-2024 Adult BMI Screening Adult BMI Screen ing [facility] Start: 05-04-2024 Depression Screening Depression Scre ening [facility] Start: 05-04-2024 Tobacco Screening Tobacco Screening [facility] Start: 04-13-2024 Tobacco Screening Tobacco Screening [facility] Start: 03-30-2024 Adult BMI Screening Adult BMI Screen ing [facility] Start: 11-26-2023 [facility] Start: 11-26-2023 Hospital admission [facility] Start: 11-26-2023 Referral to psychiatrist [facility] Start: 11-26-2023 [facility] Start: 11-11-2023 End: 11-11-2023 Patient encounter procedure 11/11/2023 11:10 AM EDT Routine [facility] [address] [place] [address] Eligio Mathew, DO [address] [place] [address] [facility] Start: 10-11-2023 COVID-19 Vaccine ( season) COVID-19 Vaccine ( season) [facility] Start: 10-11-2023 Influenza vaccination Influenza Vacc ine (#1) [facility] Start: 06-03-2023 End: 06-03-2023 Patient encounter procedure 06/03/2023 3:15 PM EDT Routine [facility] [address] [place] [id number] [facility] Start: 05-05-2023 End: 05-05-2023 ambulatory 05/05/2023 3:00 PM EDT Initial [facility] [address] [place] [id number] Nieves Velasquez MD [address] [place], [place] [id number] [facility] Start: 04-16-2023 Subsequent hospital visit by physician 04/16/2023 1:30 PM EST Hospital Encounter [facility] - Ultrasound [address] [place] [phone] Lynn Deleon, PARCEL POST CARRIER-MYSQL DEVELOPER [address] [place] [address] [facility] Start: 04-14-2023 End: 04-13-2024 US transvaginal for Ultrasound less than 14 weeks with transvaginal Imaging Routine First trimester Expected: 04/14/2023, Expires: 04/13/2024 [facility] Work Phone: Comment on above: Expected: 04/14/2023 , Expires: 04/13/2024 Start: 11-30-2022 [facility] Start: 11-28-2022 Lipid panel [facility] Start: 11-28-2022 [facility] Start: 11-27-2022 Referral to Conveyor Feeder Offbearer [facility] Start: 11-27-2022 Hospital admission [facility] Start: 11-27-2022 [facility] Start: 11-27-2022 Bacteria identified in Urine by Culture [facility] Start: 10-10-2022 Influenza vaccination Influenza Vacc ine [facility] Start: 05-13-2022 [facility] Start: 05-09-2022 Hospital admission [facility] Start: 04-20-2022 HPV Vaccine (optiona l start 27-45 years) HPV Vaccine (optional start 27-45 years) [facility] Start: 04-20-2016 Screening for malign ant neoplasm of cervix Pap Smear [facility] Start: 04-20-2014 Hepatitis A (HAV) Vaccine (optional start 19+ years) Hepatitis A (HAV) Vaccine (optional start 19+ years) [facility] Start: 04-20-2014 Hepatitis B vaccination Hepati tis B (HBV) Vaccine (1 of 3 - 19+ 3-dose series) [facility] Start: 04-20-2013 Adult BMI Follow Up Plan Adult BMI Follow Up Plan [facility] Start: 04-20-2013 Hepatitis C screening Hepatitis C An tibody [facility] Start: 04-20-2013 Tdap Booster Tdap Booster [facility] Start: 04-20-2010 HIV screening HIV Test [facility] Start: 2007 Depression Screening Depression Scre [facility] End: 04-13-2024 Bacteria identified in Urine by Culture Urine Culture Microbiology Routine First trimester 1 Occurrences starting 04/14/2023 until 04/13/2024 [facility] Comment on above: 1 Occurrences starti ng 04/14/2023 until 04/13/2024 End: 04-13-2024 CBC panel - Blood by Automated count CBC without diff Lab Routine First trimester 1 Occurrences starting 04/14/2023 until 04/13/2024 [facility] Comment on above: 1 Occurrences starti ng 04/14/2023 until 04/13/2024 End: 05-04-2024 Chlamydia/GC by PCR ThinPrep fluid Chlamydia/GC by PCR ThinPrep fluid Microbiology Routine Screening for STD (sexually transmitted disease) 1 Occurrences starting 05/05/2023 until 05/04/2024 [facility] [employer] [facility] Comment on above: 1 Occurrences starti ng 05/05/2023 until 05/04/2024 End: 04-13-2024 Comprehensive metabolic 2000 panel - Serum or Plasma Comprehensive metabolic panel Lab Routine First trimester HTN in , chronic 1 Occurrences starting 04/14/2023 until 04/13/2024 [facility] Comment on above: 1 Occurrences starti ng 04/14/2023 until 04/13/2024 End: 04-13-2024 Creatinine clearance Creatinine clearance Lab Routine First trimester HTN in , chronic 1 Occurrences starting 04/14/2023 until 04/13/2024 [facility] Comment on above: 1 Occurrences starti ng 04/14/2023 until 04/13/2024 End: 05-04-2024 Cytopathology procedure, preparation of smear, genital source Pap Smear Pathology and Cytology Routine Smear, vaginal, as part of routine gynecological examination 1 Occurrences starting 05/05/2023 until 05/04/2024 [employer] Work Phone: Comment on above: 1 Occurrences starti ng 05/05/2023 until 05/04/2024 End: 04-13-2024 Drug Screen, Urine Drug Screen, Urine Lab Routine First trimester 1 Occurrences starting 04/14/2023 until 04/13/2024 [facility] Comment on above: 1 Occurrences starti ng 04/14/2023 until 04/13/2024 End: 04-13-2024 Glucose 1h post 50g load Glucose 1h post 50g load Lab Routine First trimester History of gestational diabetes in prior , currently 1 Occurrences starting 04/14/2023 until 04/13/2024 [facility] Comment on above: 1 Occurrences starti ng 04/14/2023 until 04/13/2024 End: 04-13-2024 Hepatitis panel, acute Hepatitis panel, acute Lab Routine First trimester 1 Occurrences starting 04/14/2023 until 04/13/2024 [facility] Comment on above: 1 Occurrences starti ng 04/14/2023 until 04/13/2024 End: 04-13-2024 HIV 1&2 AB/AG Screen (P24 AG) HIV 1&2 AB/AG Screen (P24 AG) Lab Routine First trimester 1 Occurrences starting 04/14/2023 until 04/13/2024 [facility] Comment on above: 1 Occurrences starti ng 04/14/2023 until 04/13/2024 End: 04-13-2024 LDH LDH Lab Routine First trimester HTN in , chronic 1 Occurrences starting 04/14/2023 until 04/13/2024 [facility] Comment on above: 1 Occurrences starti ng 04/14/2023 until 04/13/2024 Patient Education [facility] Work Phone: Patient referral [facility] Work Phone: End: 04-13-2024 Rubella IGG immune status Rubella IGG immune status Lab Routine First trimester 1 Occurrences starting 04/14/2023 until 04/13/2024 [facility] Comment on above: 1 Occurrences starti ng 04/14/2023 until 04/13/2024 End: 04-13-2024 Syphilis Total(Unknown Syphilis Status) Syphilis Total(Unknown Syphilis Status) Lab Routine First trimester 1 Occurrences starting 04/14/2023 until 04/13/2024 [facility] Comment on above: 1 Occurrences starti ng 04/14/2023 until 04/13/2024 End: 04-13-2024 Type and screen Type and screen Blood Bank Routine First trimester 1 Occurrences starting 04/14/2023 until 04/13/2024 [facility] Comment on above: 1 Occurrences starti ng 04/14/2023 until 04/13/2024 End: 04-13-2024 Urate [Mass/volume] in Serum or Plasma Uric acid Lab Routine First trimester HTN in , chronic 1 Occurrences starting 04/14/2023 until 04/13/2024 [facility] Comment on above: 1 Occurrences starti ng 04/14/2023 until 04/13/2024 End: 04-13-2024 Urinalysis Urinalysis Lab Routine First trimester 1 Occurrences starting 04/14/2023 until 04/13/2024 [facility] Comment on above: 1 Occurrences starti ng 04/14/2023 until 04/13/2024 End: 04-13-2024 Urine protein creatinine ratio Urine protein creatinine ratio Lab Routine First trimester HTN in , chronic 1 Occurrences starting 04/14/2023 until 04/13/2024 [facility] Comment on above: 1 Occurrences starti ng 04/14/2023 until 04/13/2024 End: 04-13-2024 Varicella zoster antibody, IgG Varicella zoster antibody, IgG Lab Routine First trimester 1 Occurrences starting 04/14/2023 until 04/13/2024 [employer] [facility] Comment on above: 1 Occurrences starti ng 04/14/2023 until 04/13/2024 Immunizations Immunization Date Immunization Notes Care Provider Fa cility 12-21-2020 tetanus toxoid, redu lucy diphtheria toxoid, and acellular pertussis vaccine, adsorbed PHYSICIAN NO [facility] 09-02-2019 tetanus toxoid, redu lucy diphtheria toxoid, and acellular pertussis vaccine, adsorbed PHYSICIAN NO [facility] Payers Date Payer Category Payer Self-pay [id number] 2022 Medicaid [id number] 2021 Medicaid [id number] 2018 Unknown [id number] 2017 Private Health Insurance [id number] 1995 Unknown [id number] [id number]5 1995 Unknown [id number] 2.16840.1.696477.3.579.2.175 1995 Unknown [id number] 2.16.840.1.716803.3.579.2.175 1995 Unknown [id number] 2.16840.1.766222.3.579.2.175 1995 Unknown [id number] 2.16.840.1.106631.3.579.2.175 1995 Unknown [id number] 2.16.840.1.230820.3.579.2.593 1995 Unknown [id number] 2.16.840.1.925643.3.579.2.593 1995 Unknown [id number] 2.16.840.1.727130.3.579.2.647 1995 Unknown [id number] 2.16.840.1.204049.3.579.2.128 6 1995 Unknown [id number] 2.16.840.1.361557.3.579.2.128 6 1995 Unknown [id number] 2.16.840.1.533775.3.579.2.128 6 1995 Unknown [id number] 2.16.840.1.996709.3.579.2.128 6 1995 Unknown [id number] 2.16.840.1.838041.3.579.2.128 6 1995 Unknown [id number] 2.16.840.1.751999.3.579.2.128 6 1995 Unknown [id number] 2.16.840.1.550352.3.579.2.128 6 1995 Unknown [id number] 2.16.840.1.804072.3.579.2.128 6 1995 Unknown [id number] 2.16.840.1.391168.3.579.2.128 6 1995 Unknown [id number] 2.16.840.1.116465.3.579.2.128 6 1995 Unknown [id number] 2.16.840.1.890236.3.579.2.128 6 1995 Unknown [id number] 2.16.840.1.537371.3.579.2.128 6 1995 Unknown [id number] 2.16.840.1.732731.3.579.2.125 9 1959 Self-pay [id number] 1959 Unknown [id number] Medicaid [place] Advantage [id number] Unknown [id number] 2.16.840.1.336188.3.579.2.531 Unknown [id number] 2.16.840.1.125665.3.579.2.531 Social History Date Type Detail Facility Start: 05-09-2022 End: 11-27-2022 Tobacco smoking status NHIS Never smoked tobacco (finding) [facility] Start: 1995 Sex Assigned At Female F [facility] Start: 11-28-2022 End: 03-24-2023 Tobacco smoking status NHIS Smoker (finding) [facility] Start: 04-14-2023 End: 11-26-2023 Tobacco smoking status NHIS Ex-smoker [facility] End: 03-24-2023 History of tobacco use Cigarette Smoker [facility] Start: 03-22-2020 End: 04-14-2023 Cigarettes smoked current (pack per day) - Reported 0.3 [facility] Start: 04-14-2023 Tobacco use and exposure Smokeless tobacco non-user [facility] Start: 04-14-2023 End: 05-05-2023 Alcohol intake Current non-drinker of alcohol (finding) [facility] Start: 03-22-2020 End: 04-14-2023 Tobacco use panel [facility] Childcare Unknown [facility] Start: 04-14-2023 Alcohol Comment SOBER 3 MONTHS [facility] Start: 1995 Sex Assigned At Not on file P [facility] How hard is it for you to pay for the very basics like food, housing, medical care, and heating Somewhat hard [facility] Start: 03-20-2023 [facility] Tobacco smoking status ARIS Tobacco smoking consumption unknown [facility] NEGATED: Highlighted row [facility] Goals Date Patient Goal Desired Activity /State Functional Status Date Assessment Result Facility 11-26-2023 Functional status Patient at Baseline [facility] Work Phone: 11-30-2022 Functional status Patient at Baseline [facility] Work Phone: 05-13-2022 Functional status Patient at Baseline [facility] Work Phone: Mental Status Date Assessment Result Facility 11-26-2023 Cognitive function Cognitive Sta tus Patient at Baseline [facility] Work Phone: 11-30-2022 Cognitive function Cognitive Sta tus Patient at Baseline [facility] Work Phone: 05-13-2022 Cognitive function Cognitive Sta tus Patient at Baseline [facility] Work Phone: Clinical Notes 06-14-2020 to 11-26-2023 Note Date & Type Note Facility 11-26-2023 Consult note Note Date/Time November 26, 2023 1:32pm [facility] [address] [place] [address] Psychiatry Consult Note Signed Patient: Antoinette Recio MR#: [id number] : 1995 Acct:[id number] Age/Sex: 28 / F Adm Date: 4 Loc: Room: [address] [place] [address] Type : ADM IN Attending Dr: Genevieve Yeager MD Copies to: MD Donna Lorenzo APRN Obaydah M Daromar, MD~ HPI Consult Date: 11/26/23 Requesting Physician: Genevieve Yeager MD Primary Care Provider: Donna Prasad APRN Consult Narrative HPI: Ms. Recio is a 28 year old female who presented due to concern for a panic attack. She mentions some suicidal thoughts in the ER. Patiently currently denies any suicidality. She denied any suicidality during the H&P. She reported that she was having a bad anxiety attack and it was the first 1 she hashad. She reported that she has not been fully compliant with her Wellbutrin. She does also report using a mushroom bar that she purchased from a dispensary. She stated that she called EMS and they brought her into the hospital. She reported that the main stressor is dealing with the of a new child at home. She stated that she has not been eating well and has been a little bit sleep deprived due to caring for the child. She continues to deny any suicidal thoughts. She stated that sometimes she experiences some lack of motivation. She denied any hallucinations. Mental Status Exam: Appearance: grossly normal Mental Status: mental status grossly normal Mood: Euthymic mood Affect: Normal affect Speech and Movement: speech normal, movement normal Attitude: cooperative Thought Process: normal Thought Content: Denied hallucinations, no homicidality and no suicidality Insight: Good Judgment: Good [facility] Medical History (Updated 11/26/23 @ 05:33 by Bret Javier DO) Hepatic steatosis Clavicle fracture Miscarriage Surgical History (Updated 11/26/23 @ 05:30 by Bret Javier DO) Hx of tonsillectomy History of gastric surgery SLEEVE 2019 Family History (Updated 11/27/22 @ 16:35 by Jennifer Schwab RN) Other Suicide Social History Smoking Status: Former smoker Tobacco Type: e-cigarettes Substance Use Type: Alcohol and Marijuana Meds Medications and Allergies Allergies azithromycin [From Zithromax] Adverse Reaction (Verified 11/27/22 09:42) Abdominal Pain Home Medications buspirone 10 mg tablet 10 mg PO TID 30 days #90 tabs 11/30/22 [Rx Confirmed 11/26/23] nicotine (polacrilex) 2 mg gum 2 mg buccal Q2HR PRN Nicotine Cravings #30 ea 11/30/22 [Rx Confirmed 11/26/23] venlafaxine 75 mg capsule,extended release 24 hr 75 mg PO DAILY 30 days #30 caps11/30/22 [Rx Confirmed 11/26/23] magnesium oxide 400 mg (241.3 mg magnesium) tablet 400 mg PO DAILY 11/26/23 [History Confirmed 11/26/23] Exam Physical Exam Vital Signs: Temp Pulse Resp BP Pulse Ox O2 Del Method 98.4 F 65 14 139/83 98 Room Air 11/26/23 08:00 11/26/23 08:00 11/26/23 08:00 11/26/23 08:00 11/26/23 08:00 11/26/23 08:00 Results - Psychiatry Labs 11/26/23 04:42 11/26/23 04:42 Psychiatry Labs: 11/26/23 04:42 RBC 3.49 L Hgb 9.1 L Hct 28.2 L MCV 80.8 MCH 26.1 MCHC 32.3 RDW 17.7 H Plt Count 349 MPV 6.6 Sodium 139 Potassium 3.7 Chloride 105 Carbon Dioxide 25.7 Anion Gap 12.0 BUN 8 Creatinine 0.56 L Calcium 8.4 L Total Bilirubin 0.8 Direct Bilirubin 0.10 Indirect Bilirubin 0.7 AST 21 ALT 13 Alkaline Phosphatase 83 Total Protein 5.8 L Albumin 3.3 L Assessment/Plan (1) Major depressive disorder, recurrent, moderate: (2) Suicidal ideation: (3) Alcohol use disorder: (4) Cannabis use disorder: (5) Mushrooms causing toxic effect: (6) Hallucinogenic mushrooms use disorder, mild: Plan Patient denying current suicidality. Did report some suicidal ideation during apanic attack Currently he is calm and cooperative She has not been compliant with Wellbutrin which can be restarted. Educated her about decreasing substance use to help manage her anxiety Documented By: Dar Nation MD 11/26/231329 Signed By: <Electronically signed by Dar Nation MD> 11/26/23 [facility] Work Phone: 1(836) 303-364910-17-2024 History and physical note Author Bret Javier [facility] November 26, 2023 5:36am Note Date/Time November 26, 2023 5 :26am [facility] [address] [place] [address] Hospitalist H&P Signed Patient: Antoinette Recio MR#: [id number] : 1995 Acct:[id number] Age/Sex: 28 / F Adm Date: 4 Loc: Room: [address] [place] [address] Type: ADM IN Attending Dr: Bret Javier DO Copies to: DREW Sotelo, ~ HPI DATE OF EXAMINATION: 11/26/23 CHIEF COMPLAINT: Tachycardia, depression, suicidal ideation. HISTORY OF PRESENT ILLNESS: This is a 28-year-old woman who went to the [facility] emergency room yesterday afternoon with supraventricular tachycardia. She also expressed suicidal ideation. She had taken a bite of a mushroom chocolate bar and had been using medical marijuana and also drinking wine healthy sleep. She had not eaten in 2 days. She is about 2 weeks after giving to her son which was a normal vaginal delivery at the [facility]. She had some preeclampsia before that so she was medicated with labetalol. The ER at [facility] asked their CREASING MACHINE OPERATOR doctor with the patient to be admitted there but the CREASING MACHINE OPERATOR doctor felt that the patient needed psychiatry. The ER then called [facility] which has CREASING MACHINE OPERATOR but does not have inpatient psychiatry. Their ER then called the [facility] which has inpatient psychiatric unit but does not have CREASING MACHINE OPERATOR, and then they called [facility]. This patient was hospitalized on the psychiatric wing 2 times in the year 2022. The patient says that she had been having a lot of stress today. She had gone outside to take a walk. She says that she took a small bite of a mushroom trilobar that you get from [employer] shop. She had a lot of chest pain and shortness of breath. She did call 911. Reading the EMS run report when they arrived on the scene they found her to have supraventricular tachycardia. They had a hard time getting her to cooperate with vagal maneuvers because she was soanxious. Eventually they were able to talk her through 1 vagal nerve her with that they felt that her heart rate improved from a supraventricular tachycardia to a sinus tachycardia. When the ER physician at [facility] discussed the case with me he said that the patient's blood pressure on arrival was 160/90. They were concerned about preeclampsia. Her heart rate had improved to 90. They did give her labetalol. After that her blood pressure improved to 140/80. Her alcohol levelwas 0.133. Her urine screen for drugs of abuse was positive for marijuana and mushrooms. At the ER they did a CT of her chest that ruled out pulmonary embolus. She doeshave an incidental finding of chronic hepatic steatosis. Her white blood count was normal at 6.7. Her hemoglobin is little bit low, as expected after vaginal delivery, at 10.1. Her platelet count is normal at 421. Her potassium was on the low side at 3.5. Sodium was normal 140. BUN was 5.0. Creatinine was 0.78. Liver enzymes were normal. Troponin was negative. Urine screen for drugs abuse was positive for cannabinoids. Twelve-lead EKG shows normal sinus rhythm. Talking to the patient right now she admits that she has been having a lot of emotional problems with anxiety and depression that worsened before the ofthe baby and then worsened even more after the of the baby. She believes that her suicidal comments were because she felt so bad when her heart rate was racing fast. She has never had a rapid tachycardia heart rate before. She doeswant to get treatment for her alcohol use disorder. She did have 2 prescriptions for buprenorphine, looking at her OARRS report, with the first 1 for 8/2 films for 8 days on 11/06/2023 and then the second 1 for 4/1 mg pills for6 days on 11/19/2023. The patient says that she took half strips of the Suboxone for a few days to try and help with alcohol prevention, but then she stopped. She was prescribed bupropion 150 mg 24-hour tablet for her emotional issues before the of the baby, but she felt like it was making her feel bad so she stopped that about a week ago. She also stopped taking the labetalol, 200 mg p.o. twice daily that she was placed on for elevated blood pressures before the of the baby. Right now the only medication that she still is taking is magnesium oxide. She says that originally she did plan to breast-feed but has not been breast-feeding lately because she was concerned about all of the medications. Plan that we will have psychiatry see her. She expressed understanding. Right now in the intensive care unit here at [facility] her blood pressure and heart rate have been excellent. Heart rates are 74 and 67 with a perfectly normal sinus rhythm on the monitor and blood pressures have been 121/79 and 127/72. She does request something to help with the withdrawals from alcohol and jitteriness. Review of Systems Review of Systems Review of systems: 10 systems are reviewed and are negative except as mentioned elsewhere in the documentation. [facility] Medical History (Updated 11/26/23 @ 05:33 by Bret Javier DO) Hepatic steatosis Clavicle fracture Miscarriage Surgical History (Updated 11/26/23 @ 05:30 by Bret Javier DO) Hx of tonsillectomy History of gastric surgery SLEEVE 2019 Family History (Updated 11/27/22 @ 16:35 by Jennifer Schwab RN) Other Suicide Social History Smoking Status: Former smoker Tobacco Type: e-cigarettes Substance Use Type: Alcohol and Marijuana Meds Medications and Allergies Allergies azithromycin [From Zithromax] Adverse Reaction (Verified 11/27/22 09:42) Abdominal Pain Home Medications buspirone 10 mg tablet 10 mg PO TID 30 days #90 tabs 11/30/22 [Rx Confirmed 11/26/23] cephalexin 500 mg capsule 500 mg PO Q8HR 7 days #21 caps 11/30/22 [Rx Confirmed 11/26/23] nicotine (polacrilex) 2 mg gum 2 mg buccal Q2HR PRN Nicotine Cravings #30 ea 11/30/22 [Rx Confirmed 11/26/23] venlafaxine 75 mg capsule,extended release 24 hr 75 mg PO DAILY 30 days #30 caps11/30/22 [Rx Confirmed 11/26/23] magnesium oxide 400 mg (241.3 mg magnesium) tablet 400 mg PO DAILY 11/26/23 [History Confirmed 11/26/23] Exam Physical Exam Vital Signs: Temp Pulse Resp BP Pulse Ox O2 Del Method 98.0 F 67 16 127/72 97 Room Air 11/26/23 04:12 11/26/23 05:00 11/26/23 05:00 11/26/23 05:00 11/26/23 05:00 11/26/23 05:00 Narrative: GEN: Awake, alert, oriented x 3. Head: Normal Cephalic, Atraumatic. Eyes: Conjunctiva and sclera clear bilaterally. Nose: External nose and nares normal bilaterally. Mouth: Lips and tongue normal. Neck: No JVD. No thyromegaly. No lymphadenopathy. Lungs: Clear to auscultation bilaterally, no wheezing, no crackles. Heart: Regular rate and rhythm, no murmurs, rubs, or gallops. Abdomen: Soft, normal bowel sounds, no rigidity, guarding, or acute peritoneal signs. Extremities: No swelling or cords in the calves bilaterally, no edema in the ankles bilaterally. Skin: No systemic rashes or lesions. Psychiatric: Calm. Conversant. Cooperative. Neuro: Awake, Alert, and Oriented x 3. No focal or lateralizing deficits. Assessment & Plan Assessment/Plan (1) Major depressive disorder, recurrent, moderate: (2) Suicidal ideation: (3) Alcohol use disorder: (4) Cannabis use disorder: (5) Mushrooms causing toxic effect: (6) Hallucinogenic mushrooms use disorder, mild: Plan Assessment: Suicidal ideation. Major depressive disorder, in the period Alcohol intoxication. Alcohol use disorder. Gastric sleeve patient. Marijuana use Mushroom use Episode of tachycardia at her house today. Possibly supraventricular tachycardia versus just very rapid sinus tachycardia due to the emotional issuesgoing on at the home. Previously elevated blood pressures, possibly preeclampsia, which now seem to beresolved. Plan: Hospital admission, inpatient status. Suicide monitoring here in the intensive care unit. Consult to psychiatry. Close monitoring of blood pressures and heart rate. I would not start any specific medicine for the tachycardia or perhaps paroxysmal supraventricular tachycardia at this time. Provide multivitamin daily. I stressed to her that she should have complete cessation of her alcohol use. Further care will be assumed by the hospitalist colleagues taking over during the daytime. IP vs OBS Justification Based on differential dx, clinical care plan, and risk of adverse events, if untreated, in my clinical judgement this patient requires an acute care setting as: INPATIENT because of an expectation of an over 2 midnight stay. Estimated length of stay (# of days): 3 Documented By: Bret Javier DO 0517 Signed By: <Electronically signed by Bret Javier DO> 11/26/23 0536 [facility] Work Phone: 1(141) 346-632010-16-2024 Telephone encounter Note* Telephone Encounter - Alexis Art DO - 11/25/2023 8:32 PM EDT [facility] TRANSF[facility] from [place] ED to [facility] Report given by : Dr. Sagastume Patient is a 28 year old White female with a history of pre-eclampsia, currently 2-weeks post-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 2023 End: November 26, 2023 Bret Javier DO Admit Provider Active Start: November 26, 2023 End: November 26, 2023 Dar Nation MD Other Provider Active Start: November 26, 2023 End: November 26, 2023 Genevieve Yeager MD Attending Provider Active Start: November 26, 2023 End: November 26, 2023 Team Status: Active Member Role Status Dates Donna Prasad APRN Primary Care Provider Active Start: November 26, 2023 Bret DO Yaya Admit Provider Active Start: November 26, 2023 Genevieve Yeager MD Other Provider Active Sta rt: November 26, 2023 Dar Nation MD Attending Provider, Other Provider Active Start: November 26, 2023 Goals (unrecognized section and content) Goals may be documented in a n alternate sectionGoals may be documented in an alternate sectionNot on filedocumented as of this encounterNot on filedocumented as of this encounterGoals may be documented in an alternate sectionGoals may be documented in an alternate section [...] BE BASED ON THE PRIMARY CLINICAL RECORDS. [employer] provides no warranty or guarantee of the accuracy or completeness of information in this document.
[2023-12-05] MEDS: 0.9 % SODIUM CHLORIDE 1,000 ML 1000 ML IV (12:26)
[2023-12-05 12:31] LABS: Basophils Percent Auto 0.8 % (0.2-2.0); Eosinophils Percent Auto 0.8 % (0.9-7.0); Hematocrit 34.2 % (36.0-48.0); Hemoglobin 10.4 g/dL (12.0-16.0); Immature Granulocytes Abs Auto 0.02 10^3/uL (0.00-0.03); Immature Granulocytes Pct Auto 0.4 % (0.0-0.5); Lymphocytes Absolute Auto 0.9 10^3/uL (1.2-3.8); Mean Corpuscular HGB Conc 30.4 g/dL (29.9-35.2); Mean Corpuscular Hemoglobin 25.6 pg (26.7-34.0); Mean Corpuscular Volume 84.2 fL (81.0-99.0); Mean Platelet Volume 8.2 fL (9.5-13.5); Monocytes Absolute Auto 0.4 10^3/uL (0.3-0.8); Monocytes Percent Auto 6.9 % (1.7-12.0); Neutrophils Absolute Auto 3.9 10^3/uL (1.4-6.5); Neutrophils Percent Auto 74.1 % (43.0-75.0); Platelet Count 346 10^3/uL (150-450); Red Blood Count 4.06 10^6/uL (4.20-5.40); White Blood Count 5.2 10^3/uL (4.0-11.0)
[2023-12-05 12:44] LABS: Anion Gap 17.2; BUN Creatinine Ratio 7.4; Carbon Dioxide 26.5 mmol/L (21.0-32.0); Chloride 104 mmol/L (98-107); Estimated GFR (African America >60 (>=60 mL/min/1.73m^2); Estimated GFR (Non-African Ame >60 (>=60 mL/min/1.73m^2); Glucose 90 mg/dL (74-106); Potassium 3.7 mmol/L (3.5-5.1); Sodium 144 mmol/L (136-145)
[2023-12-05] MEDS: LORAZEPAM 2 MG/ML VIAL 1 MG IV (13:02)
[2023-12-05 13:15] LABS: Troponin I High Sensitivity <4.0 pg/mL (4.0-51.3)
[2023-12-05 14:32] LABS: Bilirubin Urine NEGATIVE (NEGATIVE); Blood Urine MODERATE (NEGATIVE); Clarity Urine CLEAR (CLEAR); Color Urine LT. YELLOW (YELLOW); Glucose Urine UA NEGATIVE (NEGATIVE); Ketones Urine NEGATIVE (NEGATIVE); Leukocyte Esterase Urine SMALL (NEGATIVE); Nitrite Urine NEGATIVE (NEGATIVE); Protein Urine TRACE mg/dL (NEG/TRACE); Specific Gravity Urine 1.015 (1.005-1.025); Urobilinogen Urine 0.2 EU/dL (0.2-1.0); pH Urine 8.5 (5.0-9.0)
[2023-12-05 14:42] LABS: Bacteria Urine TRACE #/HPF (NONE SEEN); Cast Seen? NONE SEEN #/LPF (NONE SEEN); Crystals Seen? None Seen #/HPF (None Seen); Mucus Urine SMALL (NONE SEEN); Squamous Epithelial Cell Urine MODERATE #/LPF (NONE/RARE)
[2023-12-05 14:44] LABS: Urine Culture Indicated YES
[2023-12-05 14:45] LABS: Amphetamine Screen Urine NEGATIVE (NEGATIVE); Barbiturates Screen Urine NEGATIVE (NEGATIVE); Benzodiazepines Screen Urine NEGATIVE (NEGATIVE); Buprenorphine Screen Urine NEGATIVE (NEGATIVE); Cannabinoid Screen Urine NEGATIVE (NEGATIVE); Cocaine Screen Urine NEGATIVE (NEGATIVE); Methadone Screen Urine NEGATIVE (NEGATIVE); Methamphetamines Screen Urine NEGATIVE (NEGATIVE); Opiate Screen Urine NEGATIVE (NEGATIVE); Oxycodone Screen Urine NEGATIVE (NEGATIVE); Phencyclidine Screen Urine NEGATIVE (NEGATIVE); Tricyclic Antidepressant Urine NEGATIVE (NEGATIVE)
== END 2023-12-05 15:07 | disposition home or self-care (01) ==
PROVIDERS: Emergency Provider Emergency Medicine; PCP Nurse Practitioner
DX: O90.89 Other complications of the puerperium, not elsewhere classified (principal); R42 Dizziness and giddiness; O99.345 Other mental disorders complicating the puerperium; F41.9 Anxiety disorder, unspecified
CPT/HCPCS: 36415; 70450; 80048; 80307; 81001; 84484; 85025; 87086; 93005; 96374; 99285; J2060

== ENCOUNTER 2024-04-14 20:21 | Emergency (ER) | payer OTHER, SELFPAY ==
[2024-04-14 20:30] VITALS: BP 152/113; PULSE 120; TEMP 36.6; O2SAT 100; BMI 22.6
--- OUTSIDE RECORDS SUMMARY | 2024-04-14 20:31 | XMS_ITS | CCD ---
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 ([phone])[facility])[address] [place] [address] Eosinophils (Bld) [#/Vol] 0.0 10*3/uL Normal 0.0-0.5 [facility] Comment on above: Performed By: #### L [id number] ####Top Waddy: AGUEDA MULLER ([id number])[facility])[address] [place] [address] Eosinophils/100 WBC (Bld) 0.1 % Normal 0.0-6.0 [facility] Comment on above: Performed By: #### L [id number] ####Top Waddy: AGUEDA MULLER ([id number])[facility])[address] [place] [address] Erythrocyte distribution width (RBC) [Ratio] 17.9 % High 11.5-15.0 [facility] Comment on above: Performed By: #### L [id number] ####Top Waddy: AGUEDA MULLER ([id number])[facility])[address] [place] [address] Hematocrit (Bld) [Volume fraction] 35.5 % Normal 35.0-47.0 [facility] Comment on above: Performed By: #### L [id number] ####Top Waddy: AGUEDA MULLER ([id number])[facility])[address] [place] [address] Hemoglobin (Bld) [Mass/Vol] 10.4 g/dL Low 11.7-16.0 [facility] Comment on above: Performed By: #### L [id number] ####Top Waddy: AGUEDA MULLER ([phone])[facility])[address] [place] [address] IMMATURE GRANS % 0.5 % Normal 0.0-2.0 [facility] Comment on above: Performed By: #### L [id number] ####Top Waddy: AGUEDA MULLER ([id number])[facility])[address] [place] [address] IMMATURE GRANS ABSOLUTE 0.1 10*3/uL High <0.[address] [facility] Comment on above: Performed By: #### L [id number] ####Top Waddy: AGUEDA MULLER ([id number])[facility])[address] [place] [address] Lymphocytes (Bld) [#/Vol] 0.7 10*3/uL Low 1.0-4.[address] [facility] Comment on above: Performed By: #### L [id number] ####Top Waddy: AGUEDA MULLER ([id number])[address] Lymphocytes/100 WBC (Bld) 6.3 % Low 15.0-45.[address] [facility] Comment on above: Performed By: #### L [id number] ####Top Waddy: AGUEDA MULLER ([id number])[facility])[address] [place] [address] MCH (RBC) [Entitic mass] 25.7 pg Low 26.0-34.[address] [facility] Comment on above: Performed By: #### L [id number] ####Top Waddy: AGUEDA MULLER ([phone])[address] MCHC 29.3 % Low 30.5-36.[address] [facility] Comment on above: Performed By: #### L [id number] ####Top Waddy: AGUEDA MULLER ([id number])[address] MCV (RBC) [Entitic vol] 87.9 fL Normal 77.0-99.[address] [facility] Comment on above: Performed By: #### L [id number] ####Top Waddy: AGUEDA MULLER ([phone])[address] [place] [address] [place] Monocytes (Bld) [#/Vol] 0.8 10*3/uL Normal 0.0-0.9 [facility] Comment on above: Performed By: #### L [id number] ####Top Waddy: AGUEDA MULLER ([phone])[facility] ([facility])[address] [place] [address] Monocytes/100 WBC (Bld) 6.6 % Normal 5.0-13.0 [facility] Comment on above: Performed By: #### L [id number] ####Top Waddy: AGUEDA MULLER ([id number])[facility])[address] [place] [address] NEUTROPHILS ABSOLUTE 10.0 10*3/uL High 1.8-7.5 [facility] Comment on above: Performed By: #### L [id number] ####Top Waddy: AGUEDA MULLER ([id number])[facility] ([facility])[address] [place] [address] Neutrophils/100 WBC (Bld) 85.9 % High 38.0-82.0 [facility] Comment on above: Performed By: #### L [id number] ####Top Waddy: AGUEDA MULLER ([id number])[facility] ([facility])[address] [place] [address] NRBC 0.0 /100 WBCs Normal 0.0-2.0 [facility] Comment on above: Performed By: #### L [id number] ####Top Waddy: AGUEDA MULLER ([id number])[facility] ([facility])[address] [place] [address] Platelet mean volume (Bld) [Entitic vol] 8.9 fL Low 9.0-12.7 [facility] Comment on above: Performed By: #### L [id number] ####Top Waddy: AGUEDA MULLER ([phone])[facility] ([facility])[address] [place] [address] [place] Platelets (Bld) [#/Vol] 293 10*3/uL Normal 140-440 [facility] Comment on above: Performed By: #### L [id number] ####Top Waddy: AGUEDA MULLER ([phone])[facility])[address] [place] [address] RBC (Bld) [#/Vol] 4.04 10*6/uL Normal 3.80-5.20 [facility] Comment on above: Performed By: #### L [id number] ####Top Waddy: AGUEDA MULLER ([id number])[facility] ([facility])[address] [place] [address] WBC (Bld) [#/Vol] 11.6 10*3/uL High 3.6-10.7 [facility] Comment on above: Performed By: #### L [id number] ####Top Waddy: AGUEDA MULLER ([id number])[facility] ([facility])[address] [place] [address] CKon 02-24-2024 CK [Catalytic activity/Vol] 1314 U/L High 30-185 [facility] Comment on above: Performed By: #### L AB46, LAB62, LAB17 ####Top Waddy: AGUEDA MULLER ([phone])[facility] ([facility])[address] [place] [address] COMPLETE URINALYSISon 2024 BACTERIA (#/HPF) IN URINE Few Abnormal Negative [facility] Comment on above: Performed By: #### L [id number], [id number] ####Top Waddy: AGUEDA MULLER ([phone])[facility] ([facility])[address] [place] [address] BILIRUBIN, TOTAL PRESENCE IN URINE Negative Normal Negative [facility] Comment on above: Performed By: #### L [id number], [id number] ####Top Waddy: AGUEDA MULLER ([id number])[facility] ([facility])[address] [place] [address] Clarity (U) Turbid Abnormal Clear [facility] Comment on above: Performed By: #### L [id number], [id number] ####Top Waddy: AGUEDA MULLER ([phone])[facility] ([facility])[address] [place] [address] Color (U) Yellow Normal Lt. Yellow [facility] Comment on above: Performed By: #### L [id number], [id number] ####Top Waddy: AGUEDA MULLER ([id number])[facility] ([facility])[address] [place] [address] GLUCOSE (MG/DL) IN URINE Normal Normal Normal (<70) [facility] Comment on above: Performed By: #### L [id number], [id number] ####Top Waddy: AGUEDA MULLER ([id number])[facility])[address] [place] [address] HEMOGLOBIN PRESENCE IN URINE 0.1 mg/dL Abnormal Negative [facility] Comment on above: Performed By: #### L [id number], [id number] ####Top Waddy: AGUEDA MULLER ([id number])[facility] ([facility])[address] [place] [address] HYALINE CASTS (#/LPF) IN URINE SEDIMENT BY MICROSCOPY 6-10 Abnormal Negative [facility] Comment on above: Performed By: #### L [id number], [id number] ####Top Waddy: AGUEDA MULLER ([phone])[facility] ([facility])[address] [place] [address] Ketones Ql (U) >150 Abnormal Negative [facility] Comment on above: Performed By: #### L [id number], [id number] ####Top Waddy: AGUEDA MULLER ([id number])[facility] ([facility])[address] [place] [address] LEUKOCYTE ESTERASE PRESENCE IN URINE BY TEST STRIP 500 Shu/uL Abnormal Negative [facility] Comment on above: Performed By: #### L [id number], [id number] ####Top Waddy: AGUEDA MULLER ([id number])[facility] ([facility])[address] [place] [address] [place] MUCUS (#/LPF) IN URINE SEDIMENT Moderate Abnormal Negative [facility] Comment on above: Performed By: #### L [id number], [id number] ####Top Waddy: AGUEDA MULLER ([id number])[facility])[address] [place] [address] NITRITE PRESENCE IN URINE Negative Normal Negative [facility] Comment on above: Performed By: #### L [id number], [id number] ####Top Waddy: AGUEDA MULLER ([phone])[facility])[address] [place] [address] pH (U) 5.5 [pH] Normal 5.0-8.0 [facility] Comment on above: Performed By: #### L AB347, [id number] ####Top Waddy: AGUEDA MULLER ([id number])[address] Protein (U) [Mass/Vol] 100 mg/dL Abnormal Negative [facility] Comment on above: Performed By: #### L AB347, [id number] ####Top Waddy: AGUEDA MULLER ([phone])[facility])[address] [place] [address] RBC (#/HPF) IN URINE SEDIMENT 6-10 Abnormal 0-2 [facility] Comment on above: Performed By: #### L AB347, [id number] ####Top Waddy: AGUEDA MULLER ([phone])[address] Specific gravity (U) [Rel density] 1.022 Normal 1.005-1.030 [facility] Comment on above: Performed By: #### L [id number], [id number] ####Top Waddy: AGUEDA MULLER ([id number])[address] SQUAMOUS EPITHELIAL CELLS (#/HPF) IN URINE SEDIMENT 11-25 Abnormal 3-5 [facility] Comment on above: Performed By: #### L AB347, [id number] ####Top Waddy: AGUEDA MULLER ([id number])[facility] ([facility])[address] [place] [address] UROBILINOGEN (MG/DL) IN URINE 3 mg/dL Abnormal Normal (0-1) [facility] Comment on above: Performed By: #### L AB347, [id number] ####Top Waddy: AGUEDA MULLER ([phone])[facility] ([facility])[address] [place] [address] WBC (LEUKOCYTE) (#/HPF) IN URINE SEDIMENT 51-100 Abnormal 0-5 [facility] Comment on above: Performed By: #### L AB347, [id number] ####Top Waddy: AGUEDA MULLER ([id number])[facility] ([facility])[address] [place] [address] COMPREHENSIVE METABOLIC PANE Shaji 02-24-2024 Albumin [Mass/Vol] 4.1 g/dL Normal 3.5-5.0 [facility] Comment on above: Performed By: #### L AB46, LAB62, LAB17 ####Top Waddy: AGUEDA MULLER ([phone])[facility] ([facility])[address] [place] [address] ALP [Catalytic activity/Vol] 89 U/L Normal 40-150 [facility] Comment on above: Performed By: #### L AB46, LAB62, LAB17 ####Top Waddy: AGUEDA MULLER ([id number])[facility] ([facility])[address] [place] [address] ALT [Catalytic activity/Vol] 28 U/L Normal <30 [facility] Comment on above: Performed By: #### L AB46, LAB62, LAB17 ####Top Waddy: AGUEDA MULLER ([phone])[facility] ([facility])[address] [place] [address] Anion gap [Moles/Vol] 18 mmol/L High 3-13 [facility] Comment on above: Performed By: #### L AB46, LAB62, LAB17 ####Top Waddy: AGUEDA MULLER ([id number])[facility] ([facility])[address] [place] [address] AST [Catalytic activity/Vol] 72 U/L High <34 [facility] Comment on above: Performed By: #### Sierra BILLINGSLEY46, LAB62, LAB17 ####Top Waddy: AGUEDA MULLER ([phone])[facility] ([facility])[address] [place] [address] Bilirubin [Mass/Vol] 0.9 mg/dL Normal <1.2 [facility] Comment on above: Performed By: #### Sierra BILLINGSLEY46, LAB62, LAB17 ####Top Waddy: AGUEDA MULLER ([phone])[facility] ([facility])[address] [place] [address] Calcium [Mass/Vol] 9.3 mg/dL Normal 8.4-10.2 [facility] Comment on above: Performed By: #### Sierra BEARDEN, LAB62, LAB17 ####Top Waddy: AGUEDA MULLER ([id number])[facility] ([facility])[address] [place] [address] [place] Chloride [Moles/Vol] 106 mmol/L Normal 98-107 [facility] Comment on above: Performed By: #### Sierra BEARDEN, LAB62, LAB17 ####Top Waddy: AGUEDA MULLER ([phone])[facility] ([facility])[address] [place] [address] [place] CO2 [Moles/Vol] 16 mmol/L Low 22-29 [facility] Comment on above: Performed By: #### Sierra BEARDEN, LAB62, LAB17 ####Top Waddy: AGUEDA MULLER ([id number])[facility] ([facility])[address] [place] [address] [place] Creatinine [Mass/Vol] 0.80 mg/dL Normal 0.57-1.11 [facility] Comment on above: Performed By: #### Sierra AB46, LAB62, LAB17 ####Top Waddy: AGUEDA MULLER ([phone])[facility] ([facility])[address] [place] [address] [place] GLOMERULAR FILTRATION RATE ML/MIN/1.73 SQ M.PREDICTED >90.0 Normal >60.0 [facility] Comment on above: Result Comment: Calc ulation based on the Chronic Kidney Disease Epidemiology Collaboration (CKD-EPI) equation refit without adjustment for race Performed By: #### Sierra AB46, LAB62, LAB17 ####Top Waddy: AGUEDA MULLER ([id number])[facility])[address] [place] [address] Glucose [Mass/Vol] 67 mg/dL Low 74-100 [facility] Comment on above: Performed By: #### Sierra AB46, LAB62, LAB17 ####Top Waddy: AGUEDA MULLER ([id number])[facility])[address] [place] [address] Potassium [Moles/Vol] 3.6 mmol/L Normal 3.5-5.1 [facility] Comment on above: Result Comment: [facility] potassium values may be up to 0.5 mmol/L lower than serum values. Performed By: #### Sierra BILLINGSLEY46, LAB62, LAB17 ####Top Waddy: AGUEDA MULLER ([id number])[facility])[address] [place] [address] Protein [Mass/Vol] 7.4 g/dL Normal 6.4-8.3 [facility] Comment on above: Performed By: #### Sierra BILLINGSLEY46, LAB62, LAB17 ####Top Waddy: AGUEDA MULLER ([id number])[facility])[address] [place] [address] [place] Sodium [Moles/Vol] 140 mmol/L Normal 136-145 [facility] Comment on above: Performed By: #### Sirera BILLINGSLEY46, LAB62, LAB17 ####Top Waddy: AGUEDA MULLER ([phone])[facility])[address] [place] [address] Urea nitrogen [Mass/Vol] 14 mg/dL Normal 8-21 [facility] Comment on above: Performed By: #### Sierra AB46, LAB62, LAB17 ####Top Waddy: AGUEDA MULLER ([id number])[facility] ([facility])[address] [place] [address] DRUGS OF ABUSEon 02-24-2024 AMPHETAMINE SCREEN Negative Normal [facility] Comment on above: Performed By: #### L [id number] ####Top Waddy: AGUEDA MULLER ([id number])[facility] ([facility])[address] [place] [address] BARBITURATES SCREEN Positive Normal [facility] Comment on above: Performed By: #### L [id number] ####Top Waddy: AGUEDA MULLER ([id number])[facility] ([facility])[address] [place] [address] BENZODIAZEPINE SCREEN Negative Normal [facility] Comment on above: Performed By: #### L [id number] ####Top Waddy: AGUEDA MULLER ([id number])[facility])[address] [place] [address] COCAINE METAB. SCREEN Negative Normal [facility] Comment on above: Performed By: #### L [id number] ####Top Waddy: AGUEDA MULLER ([id number])[facility])[address] [place] [address] FENTANYL SCREEN, UR QUAL Negative Normal [facility] Comment on above: Result Comment: SEBLE Alcantar COMMENTS: The expected value for all of the drugs listed above is Negative. The following drugs or drug groups have been screened for by Immunoassay at the following thresholds: Amphetamine class (1000 ng/mL) Barbiturates (200 ng/mL) Benzodiazepines (200 ng/mL) Cocaine (300 ng/mL) Methadone (300 ng/mL) Opiates (300 ng/mL) Oxycodone (100 ng/mL) PCP (25 ng/mL) Fentanyl (1.0 ng/ml) NOTE: These results are for medical treatment only. Analysis performed using non-forensic procedures. POSITIVE results are NOT confirmed by a more specific alternative method unless requested. If confirmation is needed, request confirmation under separate order. Performed By: #### L [id number] ####Top Waddy: AGUEDA MULLER ([id number])[facility] ([facility])[address] [place] [address] METHADONE SCREEN Negative Normal [facility] Comment on above: Performed By: #### L [id number] ####Top Waddy: AGUEDA MULLER ([id number])[facility] ([facility])[address] [place] [address] OPIATES SCREEN Negative Normal [facility] Comment on above: Performed By: #### L [id number] ####Top Waddy: AGUEDA MULLER ([id number])[facility] ([facility])[address] [place] [address] OXYCODONE SCREEN Negative Normal [facility] Comment on above: Performed By: #### L [id number] ####Top Waddy: AGUEDA MULLER ([id number])[facility] ([facility])[address] [place] [address] PHENCYCLIDINE SCREEN Negative Normal [facility] Comment on above: Performed By: #### L [id number] ####Top Waddy: AGUEDA MULLER ([id number])[facility] ([facility])[address] [place] [address] ED Nursing Noteon 02-24-2024 ED Nursing Note Transport here at is time. Normal [facility] ED Nursing Note Transport here to [facility] pt to [facility] 6-102 A. 1 bag given. Normal [facility] ED Nursing Note Lunch tray given. Normal [facility] ED Nursing Note Report given to Chivo cruz RN at this time. Normal [facility] ED Nursing Note RN medicating pt. Normal [facility] ED Nursing Note Nursing staff Letty Ratliff ordered the pt a dietary tray. Normal [facility] ED Nursing Note Ordered lunch Normal [facility] ED Nursing Note Pt given another bot tle of water to drink. Pt says to pt, Tell my kids I love them . Asked pt if she would like to call them and tell them herself. Pt says. I hope . Pt asked to stop walking in the hallway. Pt not stopping. Askinf provider for PO anxiety medication. Normal [facility] ED Nursing Note Nursing staff Letty Ratliff walked the pt back to her room from the bathroom/Protective Services standing by. Normal [facility] ED Nursing Note Nursing staff Raj Zepeda is checking on the pt who is in the bathroom. Normal [facility] ED Nursing Note Pt is in the bathroom. Normal [facility] ED Nursing Note Nursing staff Raj Zepeda walked the pt to the bathroom. Normal [facility] ED Nursing Note Psych Resident's x 3 is talking to the pt in the hallway. Normal [facility] ED Nursing Note Nursing staff Letty Ratliff assisted the pt to the bathroom. Normal [facility] ED Nursing Note Nursing staff Letty Ratliff assisted the pt to the bathroom. Normal [facility] ED Nursing Note Pt dad kristan very concerned for pt. Pt allowed this RN to tell them she is here. Gave pt Kristan's #. Normal [facility] ED Nursing Note Nursing staff Letty Ratliff is in the room talking with the Psych Resident's and the pt. [facility] ED Nursing Note Pt refusing IV @ thi s time. Pt is drinking fluids and ate 25% of breakfast. Normal [facility] ED Nursing Note Nursing staff Letty Ratliff at the pt's bedside. Normal [facility] ED Nursing Note Pt back in rm. Normal [facility] ED Nursing Note Pt to bathroom with RN. Normal [facility] ED Nursing Note Breakfast tray given. Normal [facility] ED Nursing Note ER Reg at bed side. Normal [facility] ED Nursing Note Pt allowed EKG to pl lupis wires and right before results pt pulled off EKG leads and would not allow EKG to replace. Normal [facility] ED Nursing Note EKG at bed side but not completed b/c pt pulled leads off. Normal [facility] ED Nursing Note Pt given warm blank and francisco zabrina. Normal [facility] ED Nursing Note Pt back to rm. Urine specimen given. Normal [facility] ED Nursing Note Pt to bathroom with nurse. [facility] ED Nursing Note Pt given bottle of w ater per request, [facility] ED Nursing Note Dr. Razo in w/ pt. Normal [facility] ED Nursing Note Pt changed into hosp ital gowns and socks. Skin assessment completed by RN. Pt wand by protective services, and all belongings locked into cabinet. Pt has 1 bag. Normal [facility] ED Nursing Note Dr. Logan in w/ pt. Normal [facility] ED Nursing Note Pt directed to room. Normal [facility] ED Nursing Note Brought in by Dipak Scales. Patient was brought in by [facility] police. Patient is delusional and thinks she is hearing chainsaws. Patient thinks that people are stabbing her with ketamine. Normal [facility] ED Provider Noteon ED Provider Note Emergency Department Encounter [facility] EMERGENCY DEPT Patient: Antoinette Recio : 1995 Date of Evaluation: 02/24/2024 ED Supervising Physician: Dee Byers, I personally evaluated Antoinette Recio and made/approved the management plan and take responsibility for the patient management. This will serve as my Supervisory note and shared attestation. I did perform a substantive portion of the visit including all aspects of the Medical Decision Making. I wore appropriate PPE for the entirety of this encounter. ED Course as of 02/24/24 1417 ThuFeb 24, 2024 0718 28-year-old presents emergency department today brought in by [facility] police apparently having hallucinations. She states that she started having hallucinations after having a drink at a friend's house a few days ago that tasted weird. She also apparently reported to nursing that she is hearing chainsaws and that people are stabbing her with ketamine. Apparently at [facility] where she was seen in their psych unit she did receive ketamine and Precedex. Denies any suicidal or homicidal ideations. Denies any recreational drug use. States that she does have history of ADHD and trouble sleeping and was recently on Adderall and stopped taking this a couple of weeks ago. States her last drink of alcohol was a few days ago. Patient on exam is calm and cooperative, vital signs stable. Obtain psychiatric screening labs and have patient evaluated by psychiatric resident. [BM] 0846 Labs notable for CK elevation to 1314, barbiturates positive, urinalysis showing ketonuria concerning for dehydration as well as elevated anion gap concerning for dehydration. Will trial oral hydration but if unable may need IV. [BM] 1416 Patient accepted for admission by psychiatry. Requiring Ativan for increased agitation. [BM] ED Course User Index [BM] Dee Byers DO Diagnoses as of 02/24/24 1417 Paranoid delusion (HCC) Elevated CK Diagnostics interpreted by me: none All diagnostic, treatment, and disposition decisions were made by myself in conjunction with the Resident. I also supervised [place] portions of any procedures performed by the Resident. For all further details of the patient's emergency department visit, please see their documentation. (Comment: Please note this report has been produced using speech recognition software and may contain errors related to that system including errors in grammar, punctuation, and spelling, as well as words and phrases that may be inappropriate. If there are any questions or concerns please feel free to contact the dictating provider for clarification.) Dee Byers DO [employer] Dee Byers DO 02/24/24 1417 Normal [facility] ED Provider Note EMERGENCY DEPARTMENT ENCOUNTER Pt Name: Antoinette Recio Birthdate 1995 Date of evaluation: 02/24/2024 ED Provider: Mitesh Logan MD CHIEF COMPLAINT Chief Complaint Patient presents with ? Delusional Brought in by [employer]. Patient was brought in by [employer]. Patient is delusional and thinks she is hearing chainsaws. Patient thinks that people are stabbing her with ketamine. HISTORY OF PRESENT ILLNESS (Location/Symptom, Timing/Onset, Context/Setting, Quality, Duration, Modifying Factors, Severity) Note limiting factors. I wore appropriate PPE for the entirety of this encounter. Antoinette Recio is a 28 y.o. PMH depression, anxiety, HTN, GERD, sleeve gastrectomy who presents to the emergency department brought in by [employer]. She initially presented earlier today feeling unwell following an ER visit at [facility], though was feeling better and was trying to leave when she was found trying to get into a door somewhere in the facility, and then was brought over by police. Per the patient, she notes that a few days ago she was at a friend's house where she had a drink that she notes tasted weird and then began to have auditory and visual hallucinations and presented to [facility]. Per her report, she was evaluated by stroke services there but also given multiple medications involuntarily including ketamine. Per care everywhere, it does appear that she was at for evaluation and did receive these medications. Additionally at that visit, drug screen noted to be negative. She does note multiple difficulties in recent weeks, including losing her 3-month-old son as well as issues with her fianc?. Chart review notes some history of substance use disorder/alcohol withdrawal, though she notes last drink was 2 to 3 days ago. Additionally was also recently tried on Adderall and Xanax for a few months but notes she discontinued these around 2 weeks ago. For nursing, she endorsed hearing sounds like chainsaws though for me denied any form of hallucinations here. Denies SI/HI. Nursing Notes were reviewed. Limitations to history: None Outside historians: None REVIEW OF SYSTEMS Review of Systems Pertinent positives and negatives as per HPI. PAST MEDICAL HISTORY History reviewed. No pertinent past medical history. SURGICAL HISTORY History reviewed. No pertinent surgical history. CURRENT MEDICATIONS Previous Medications No medications on file ALLERGIES Azithromycin and Erythromycin FAMILY HISTORY No family history on file. SOCIAL HISTORY Social History Socioeconomic History ? Marital status: Legally Tobacco Use ? Smoking status: Never ? Smokeless tobacco: Never Substance and Sexual Activity ? Alcohol use: Not Currently ? Drug use: Not Currently ? Sexual activity: Defer Social Drivers of Health Financial Resource Strain: Medium Risk (05/05/2023) Received from [facility] Overall Financial Resource Strain (CARDIA) ? Difficulty of Paying Living Expenses: Somewhat hard Food Insecurity: No Food Insecurity (08/12/2023) Received from [facility] Hunger Screening ? Within the past 12 months we worried whether our food would run out before we got money to buy more.: Never True ? Within the past 12 months the food we bought just didn't last and we didn't have money to get more.: Never True Housing Stability: Patient Declined (05/05/2023) Received from [facility] Housing Instability ? Are you worried or concerned that in the next two months you may not have stable housing that you own, rent or stay in as a part of a household?: Patient Declined SCREENINGS PHYSICAL EXAM ED Triage Vitals [02/24/24 0712] Temp Heart Rate Resp BP 37.3 ?C (99.2 ?F) 93 18 128/84 SpO2 Temp Source Heart Rate Source Patient Position 100 % Temporal Monitor -- BP Location FiO2 (%) -- -- Physical Exam Constitutional: General: She is not in acute distress. Appearance: Normal appearance. She is not ill-appearing. HENT: Head: Normocephalic and atraumatic. Nose: Nose normal. Mouth/Throat: Mouth: Mucous membranes are moist. Pharynx: Oropharynx is clear. Eyes: Conjunctiva/sclera: Conjunctivae normal. Pupils: Pupils are equal, round, and reactive to light. Cardiovascular: Rate and Rhythm: Normal rate and regular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 fentanyl, meperidine, or tramadol. Oxycodone is not consistently detected (refer to Oxycodone Screen, Urine result). Performed By: #### 2 4339-4 #### SHALOM Esquivel ([id number]) [facility] ([facility]) [address] [place] [address] 31647 oxyCODONE+oxyMORphone Screen Ql (U) Negative Normal Presumptive Negative [facility] Comment on above: Order Comment: Drug screen results are presumptive and should not be used to assesscompliance with prescribed medication. Contact the performing [facility] laboratoryto add-on definitive confirmatory testing if clinically indicated.Toxicology screening results are reported qualitatively. The concentration must???be greater than or equal to the cutoff to be reported as positive. The concentrationat which the screening test can detect an individual drug or metabolite varies.The absence of expected drug(s) and/or drug metabolite(s) may indicate non-compliance,inappropriate timing of specimen collection relative to drug administration, poor drugabsorption, diluted/adulterated urine, or limitations of testing. For medical purposesonly; not valid for forensic use.Interpretive questions should be directed to the laboratory medical directors. Result Comment: CUTO FF LEVEL: 100 NG/ML This test will accurately detect both oxycodone and oxymorphone. Performed By: #### 2 4339-4 #### SHALOM Esquivel ([id number]) [facility] ([facility]) [address] [place] [address] 86565 Phencyclidine Ql (U) Negative Normal Presump tive Negative [facility] Comment on above: Order Comment: Drug screen results are presumptive and should not be used to assesscompliance with prescribed medication. Contact the performing [facility] laboratoryto add-on definitive confirmatory testing if clinically indicated.Toxicology screening results are reported qualitatively. The concentration must???be greater than or equal to the cutoff to be reported as positive. The concentrationat which the screening test can detect an individual drug or metabolite varies.The absence of expected drug(s) and/or drug metabolite(s) may indicate non-compliance,inappropriate timing of specimen collection relative to drug administration, poor drugabsorption, diluted/adulterated urine, or limitations of testing. For medical purposesonly; not valid for forensic use.Interpretive questions should be directed to the laboratory medical directors. Result Comment: CUTO FF LEVEL: 25 NG/ML Cross-reactivity has been reported with dextromethorphan. Performed By: #### 2 4339-4 #### SHALOM Esquivel ([id number]) [facility] ([facility]) [address] [place] [address] 55546 Drug Screen, Urineon 025 Amphetamines Screen Ql (U) Negative Presumptive Negative [facility] Comment on above: CUTOFF LEVEL: 500 NG /ML Cross-reactivity has been reported with high concentrations of the following drugs: buproprion, chloroquine, chlorpromazine, ephedrine, mephentermine, fenfluramine, phentermine, phenylpropanolamine, pseudoephedrine, and propranolol. Barbiturates Screen Ql (U) Negative Presumptive Negative [facility] Comment on above: CUTOFF LEVEL: 200 NG /ML Benzodiazepines Ql (U) Negative Presumptive Negative [facility] Comment on above: CUTOFF LEVEL: 200 NG /ML Benzoylecgonine Screen Ql (U) Negative Presumptive Negative [facility] Comment on above: CUTOFF LEVEL: 150 NG /ML Cannabinoids Screen Ql (U) Positive Abnormal Presumptive Negative [facility] Comment on above: CUTOFF LEVEL: 50 NG/ ML fentaNYL+Norfentanyl Screen Ql (U) Negative Presumptive Negative [facility] Comment on above: CUTOFF LEVEL: 5 NG/M L Interpretation and review of laboratory results Abnormal [facility] Methadone Screen Ql (U) Negative Presumptive Negative [facility] Comment on above: CUTOFF LEVEL: 150 NG /ML The metabolite Z-rbogu-rmeudrzsuixcei (LAAM) is not detected by this method in concentrations that would be found in the urine of patients on LAAM therapy. Opiates Screen Ql (U) Negative Presum ptive Negative [facility] Comment on above: CUTOFF LEVEL: 300 NG /ML The opiate screen does not detect fentanyl, meperidine, or tramadol. Oxycodone is not consistently detected (refer to Oxycodone Screen, Urine result). oxyCODONE+oxyMORphone Screen Ql (U) Negative Presumptive Negative [facility] Comment on above: CUTOFF LEVEL: 100 NG /ML This test will accurately detect both oxycodone and oxymorphone. Phencyclidine Ql (U) Negative Presump tive Negative [facility] Comment on above: CUTOFF LEVEL: 25 NG/ ML Cross-reactivity has been reported with dextromethorphan. Drug screen results are presumptive and should not be used to assess compliance with prescribed medication. Contact the performing [facility] laboratory to add-on definitive confirmatory testing if clinically indicated. Toxicology screening results are reported qualitatively. The concentration must be greater than or equal to the cutoff to be reported as positive. The concentration at which the screening test can detect an individual drug or metabolite varies. The absence of expected drug(s) and/or drug metabolite(s) may indicate non-compliance, inappropriate timing of specimen collection relative to drug administration, poor drug absorption, diluted/adulterated urine, or limitations of testing. For medical purposes only; not valid for forensic use. Interpretive questions should be directed to the laboratory medical directors. [facility] Folateon 02-23-2024 Folate [Mass/Vol] ng/mL 5.0 - PINF ng/mL [facility] Folate [Mass/Vol] ng/mL Normal >5.0 [facility] Comment on above: Order Comment: Low < 3.4Borderline 3.4-5.0Normal >5.0Patients receiving more than 5 mg/day of biotin may have interference in test results. A sample should be taken no sooner than eight hours after previous dose. Contact the testing laboratory for additional information. Performed By: #### 2 4339-4 #### SHALOM Esquivel ([id number]) [facility] ([facility]) [address] [place] [address] 10[address] Folate [Mass/Vol]on 02-22-19 Interpretation and review of laboratory results Normal [facility] Low <3.4 Borderline 3.4-5.0 Normal >5.0 Patients receiving more than 5 mg/day of biotin may have interference in test results. A sample should be taken no sooner than eight hours after previous dose. Contact the testing laboratory for additional information. [facility] Gamma glutamyl transferase [ Catalytic activity/Vol]on 02-23-2024 Interpretation and review of laboratory results Normal [facility] Gamma-Glutamyl Transferaseon 02-23-2024 Gamma glutamyl transferase [Catalytic activity/Vol] 38 U/L 5 - 55 U/L [facility] Comment on above: MARKED HEMOLYSIS DET ECTED. The result may be falsely decreased due to hemolysis or other interferents. Clinical correlation is recommended. Repeat testing may be considered. Gas panel (BldV)on Anion gap 4 (BldV) [Moles/Vol] 11 mmol/L 10.0 - 25.0 mmol/L [facility] Base excess Calc (BldV) [Moles/Vol] 3 mmol/L -2.0 - 3.0 mmol/L [facility] Calcium.ionized (BldV) [Moles/Vol] 1.26 mmol/L 1.10 - 1.33 mmol/L [facility] Chloride (BldV) [Moles/Vol] 108 mmol/L High 98 - 107 mmol/L [facility] CO2 (BldV) [Partial pressure] 43 mm[Hg] [facility] Glucose [Mass/Vol] 133 mg/dL High 74 - 99 mg/dL [facility] HCO3 (Bld) [Moles/Vol] 27.9 mmol/L High 22.0 - 26.0 mmol/L [facility] Hematocrit Est (Bld) [Volume fraction] 31 % Low 36.0 - 46.0 % [facility] Hemoglobin (Bld) [Mass/Vol] 10.3 g/dL Low 12.0 - 16.0 g/dL [facility] Inhaled oxygen concentration 21 % [facility] Interpretation and review of laboratory results Abnormal [facility] Lactate (BldV) [Moles/Vol] 1.3 mmol/L 0.4 - 2.0 mmol/L [facility] Oxygen (BldV) [Partial pressure] 56 mm[Hg] High [facility] Oxygen saturation in Venous blood 84 % High 45 - 75 % [facility] Oxyhemoglobin (BldV) [Mass fraction] 82.1 % High 45.0 - 75.0 % [facility] pH (BldV) 7.42 [pH] 7.33 - 7.43 pH [facility] Potassium (BldV) [Moles/Vol] 4.1 mmol/L 3.5 - 5.3 mmol/L [facility] Sodium (BldV) [Moles/Vol] 143 mmol/L 136 - 145 mmol/L [facility] Anion gap 4 (BldV) [Moles/Vol] 11.0 mmol/L Normal 10.0-25.0 [facility] Comment on above: Performed By: #### 2 4339-4 #### SHALOM Esquivel ([id number]) [facility] ([facility]) [address] [place] [address] 64340 Base excess Calc (BldV) [Moles/Vol] 3.0 mmol/L Normal -2.0-3.0 [facility] Comment on above: Performed By: #### 2 4339-4 #### SHALOM Esquivel ([id number]) [facility] ([facility]) [address] [place] [address] 98747 Calcium.ionized (BldV) [Moles/Vol] 1.26 mmol/L Normal 1.10-1.33 [facility] Comment on above: Performed By: #### 2 4339-4 #### SHALOM Esquivel ([id number]) [facility] ([facility]) [address] [place] [address] Chloride (BldV) [Moles/Vol] 108 mmol/L High 98-107 [facility] Comment on above: Performed By: #### 2 4339-4 #### SHALOM Esquivel ([id number]) [facility] ([facility]) [address] [place] [address] CO2 (BldV) [Partial pressure] 43 mm Hg Normal 41-51 [facility] Comment on above: Performed By: #### 2 4339-4 #### SHALOM Esquivel ([id number]) [facility] ([facility]) [address] [place] [address] Glucose [Mass/Vol] 133 mg/dL High 74-99 [facility] Comment on above: Performed By: #### 2 4339-4 #### SHALOM Esquivel ([id number]) [facility] ([facility]) [address] [place] [address] HCO3 (Bld) [Moles/Vol] 27.9 mmol/L High 22.0-26.0 [facility] Comment on above: Performed By: #### 2 4339-4 #### SHALOM Esquivel ([id number]) [facility] ([facility]) [address] [place] [address] 17189 Hematocrit Est (Bld) [Volume fraction] 31.0 % Low 36.0-46.0 [facility] Comment on above: Performed By: #### 2 4339-4 #### SHALOM Esquivel ([id number]) [facility] ([facility]) [address] [place] [address] Hemoglobin (Bld) [Mass/Vol] 10.3 g/dL Low 12.0-16.0 [facility] Comment on above: Performed By: #### 2 4339-4 #### SHALOM Esquivel ([id number]) [facility] ([facility]) [address] [place] [address] 92353 Inhaled oxygen concentration 21 % Normal [facility] Comment on above: Performed By: #### 2 4339-4 #### SHALOM Esquivel ([id number]) [facility] ([facility]) [address] [place] [address] 32585 Lactate (BldV) [Moles/Vol] 1.3 mmol/L Normal 0.4-2.0 [facility] Comment on above: Performed By: #### 2 4339-4 #### SHALOM Esquivel ([id number]) [facility] ([facility]) [address] [place] [address] 94317 Oxygen (BldV) [Partial pressure] 56 mm Hg High 35-45 [facility] Comment on above: Performed By: #### 2 4339-4 #### SHALOM Esquivel ([id number]) [facility] ([facility]) [address] [place] [address] 94950 Oxygen saturation in Venous blood 84 % High 45-75 [facility] Comment on above: Performed By: #### 2 4339-4 #### SHALOM Esquivel ([id number]) [facility] ([facility]) [address] [place] [address] 52184 Oxyhemoglobin (BldV) [Mass fraction] 82.1 % High 45.0-75.0 [facility] Comment on above: Performed By: #### 2 4339-4 #### SHALOM Esquivel ([id number]) [facility] ([facility]) [address] [place] [address] 87155 pH (BldV) 7.42 [pH] Normal 7.33-7.43 [facility] Comment on above: Performed By: #### 2 4339-4 #### SHALOM Esquivel ([id number]) [facility] ([facility]) [address] [place] [address] 97106 Potassium (BldV) [Moles/Vol] 4.1 mmol/L Normal 3.5-5.3 [facility] Comment on above: Performed By: #### 2 4339-4 #### SHALOM Esquivel ([id number]) [facility] ([facility]) [address] [place] [address] 88940 Sodium (BldV) [Moles/Vol] 143 mmol/L Normal 136-145 [facility] Comment on above: Performed By: #### 2 4339-4 #### SHALOM Esquivel ([id number]) [facility] ([facility]) [address] [place] [address] 61214 HbA1c (Bld) [Mass fraction]o n 02-23-2024 Average glucose Estimated from glycated hemoglobin (Bld) [Mass/Vol] 97 mg/dL Normal Not Established [facility] Comment on above: Order Comment: Diagn osis of Iksxsuep-JikasuRiy-Owkegdvq: < or = 5.6%Increased risk for developing diabetes: 5.7-6.4%Diagnostic of diabetes: > or = 6.5% Performed By: #### 2 4323-8 #### SHALOM Esquivel ([id number]) [facility] ([facility]) [address] [place] [address] 58441 Hemoglobin A1c/Hemoglobin.to lydia 02-23-2024 HbA1c (Bld) [Mass fraction] 5.0 % Normal See comment [facility] Comment on above: Order Comment: Diagn osis of Lgaqupjx-EosmlmYru-Cynijifs: < or = 5.6%Increased risk for developing diabetes: 5.7-6.4%Diagnostic of diabetes: > or = 6.5% Performed By: #### 2 4323-8 #### SHALOM Esquivel ([id number]) [facility] ([facility]) [address] [place] [address] 79976 Lipid 1996 panelon 5 Cholesterol [Mass/Vol] 218 mg/dL High 0 - 199 mg/dL [facility] Comment on above: Age Desirable Borderline High High 0-19 Y 0 - 169 170 - 199 >/= 200 20-24 Y 0 - 189 190 - 224 >/= 225 >24 Y 0 - 199 200 - 239 >/= 240 All ranges are based on fasting samples. Specific therapeutic targets will vary based on patient-specific cardiac risk. Pediatric guidelines reference:Pediatrics 2011, 128(S5).Adult guidelines reference: NCEP ATPIII Guidelines,SALLY 2001, 258:2486-97 Venipuncture immediately after or during the administration of Metamizole may lead to falsely low results. Testing should be performed immediately prior to Metamizole dosing. Cholesterol in HDL [Mass/Vol] 126.4 mg/dL [facility] Comment on above: Age Very Low Low Normal High 0-19 Y < 35 < 40 40-45 ---- 20-24 Y ---- < 40 >45 ---- >24 Y ---- < 40 40-60 >60 Cholesterol in LDL [Mass/Vol] 79 mg/dL NINF - 99 mg/dL [facility] Comment on above: Near Borderline AGE Desirable Optimal High High Very High 0-19 Y 0 - 109 --- 110-129 >/= 130 ---- 20-24 Y 0 - 119 --- 120-159 >/= 160 ---- >24 Y 0 - 99 100-129 130-159 160-189 >/=190 Cholesterol in VLDL [Mass/Vol] 12 mg/dL 0 - 40 mg/dL [facility] Cholesterol.total/Cho lesterol in HDL [Mass ratio] 1.7 {ratio} [facility] Comment on above: Ref Values Desirable < 3.4 High Risk > 5.0 Interpretation and review of laboratory results Abnormal [facility] Non HDL Cholesterol 92 mg/dL 0 - 149 mg/dL [facility] Comment on above: Age Desirable Borderline High High Very High 0-19 Y 0 - 119 120 - 144 >/= 145 >/= 160 20-24 Y 0 - 149 150 - 189 >/= 190 ---- >24 Y 30 mg/dL above LDL Cholesterol goal Triglyceride [Mass/Vol] 61 mg/dL 0 - 149 mg/dL [facility] Comment on above: Age Desirable Border line High Very High SEX:B mg/dL mg/dL mg/dL mg/dL <=14D 86-277 ---- ---- ---- 15D-365D 55-277 ---- ---- ---- 1Y-9Y 0-74 75-99 >=100 ---- 10Y-19Y 0-89 90-129 >=130 ---- 20Y-24Y 0-114 115-149 >=150 ---- >= 25Y 0-149 150-199 200-499 >=500 Venipuncture immediately after or during the administration of Metamizole may lead to falsely low results. Testing should be performed immediately prior to Metamizole dosing. [facility] Cholesterol [Mass/Vol] 218 mg/dL High 0-199 [facility] Comment on above: Result Comment: Age Desirable Borderline High High 0-19 Y 0 - 169 170 - 199 >/= 200 20-24 Y 0 - 189 190 - 224 >/= 225 >24 Y 0 - 199 200 - 239 >/= 240 All ranges are based on fasting samples. Specific therapeutic targets will vary based on patient-specific cardiac risk. Pediatric guidelines reference:Pediatrics 2011, 128(S5).Adult guidelines reference: NCEP ATPIII Guidelines,SALLY 2001, 258:2486-97 Venipuncture immediately after or during the administration of Metamizole may lead to falsely low results. Testing should be performed immediately prior to Metamizole dosing. Performed By: #### 2 4323-8 #### SHALOM Esquivel ([id number]) [facility] ([facility]) [address] [place] [address]53 Cholesterol in HDL [Mass/Vol] 126.4 mg/dL Normal [facility] Comment on above: Result Comment: Age Very Low Low Normal High 0-19 Y < 35 < 40 40-45 ---- 20-24 Y ---- < 40 >45 ---- >24 Y ---- < 40 40-60 >60 Performed By: #### 2 4323-8 #### SHALOM Esquivel ([id number]) [facility] ([facility]) [address] [place] [address] 50068 Cholesterol in LDL [Mass/Vol] 79 mg/dL Normal <=99 [facility] Comment on above: Result Comment: Near Borderline AGE Desirable Optimal High High Very High 0-19 Y 0 - 109 --- 110-129 >/= 130 ---- 20-24 Y 0 - 119 --- 120-159 >/= 160 ---- >24 Y 0 - 99 100-129 130-159 160-189 >/=190 Performed By: #### 2 4323-8 #### SHALOM Esquivel ([id number]) [facility] ([facility]) [address] [place] [address] Cholesterol in VLDL [Mass/Vol] 12 mg/dL Normal 0-40 [facility] Comment on above: Performed By: #### 2 4323-8 #### SHALOM Esquivel ([id number]) [facility] ([facility]) [address] [place] [address] 23588 CHOLESTEROL/HDL RATIO 1.7 Normal [facility] Comment on above: Result Comment: Ref Values Desirable < 3.4 High Risk > 5.0 Performed By: #### 2 4323-8 #### SHALOM Esquivel ([id number]) [facility] ([facility]) [address] [place] [address] 70002 NON HDL CHOLESTEROL 92 mg/dL Normal 0-149 [facility] Comment on above: Result Comment: Age Desirable Borderline High High Very High 0-19 Y 0 - 119 120 - 144 >/= 145 >/= 160 20-24 Y 0 - 149 150 - 189 >/= 190 ---- >24 Y 30 mg/dL above LDL Cholesterol goal Performed By: #### 2 4323-8 #### SHALOM Esquivel ([id number]) [facility] ([facility]) [address] [place] [address] 71954 Triglyceride [Mass/Vol] 61 mg/dL Normal 0-149 [facility] Comment on above: Result Comment: Age Desirable Borderline High Very High SEX:B mg/dL mg/dL mg/dL mg/dL <=14D 86-277 ---- ---- ---- 15D-365D 55-277 ---- ---- ---- 1Y-9Y 0-74 75-99 >=100 ---- 10Y-19Y 0-89 90-129 >=130 ---- 20Y-24Y 0-114 115-149 >=150 ---- >= 25Y 0-149 150-199 200-499 >=500 Venipuncture immediately after or during the administration of Metamizole may lead to falsely low results. Testing should be performed immediately prior to Metamizole dosing. Performed By: #### 2 4323-8 #### SHALOM Esquivel ([id number]) [facility] ([facility]) [address] [place] [address] 65166 Magnesiumon 02-23-2024 Magnesium [Mass/Vol] 1.81 mg/dL 1.60 - 2.40 mg/dL [facility] Comment on above: MARKED HEMOLYSIS DET ECTED. The result may be falsely elevated due to hemolysis or other interferents. Clinical correlation is recommended. Repeat testing may be considered. Magnesium [Mass/Vol]on 02-22 Interpretation and review of laboratory results Normal [facility] Prolactinon 02-23-2024 Prolactin [Mass/Vol] 69.2 ug/L High 3.0 - 2 0.0 ug/L [facility] Prolactin [Mass/Vol]on 02-22 Interpretation and review of laboratory results Abnormal [facility] TSHon 02-23-2024 TSH Qn 2.59 m[IU]/L [facility] TSH Qnon 02-23-2024 Interpretation and review of laboratory results Normal [facility] TSH testing is perfo rmed using different testing methodology at [facility] than at other [facility]. Direct result comparisons should only be made within the same method. [facility] Thiamine pyrophosphateon Thiamine pyrophosphate (Bld) [Moles/Vol] 96 nmol/L Normal 70-180 [facility] Comment on above: Result Comment: INTE RPRETIVE INFORMATION: Vitamin B1, Whole Blood This assay measures the concentration of thiamine diphosphate (TDP), the primary active form of vitamin B1. Approximately 90 percent of vitamin B1 present in whole blood is TDP. Thiamine and thiamine monophosphate, which comprise the remaining 10 percent, are not measured. This test was developed and its performance characteristics determined by [facility]. It has not been cleared or approved by the US Food and Drug Administration. This test was performed in a CLIA certified laboratory and is intended for clinical purposes. Performed By: [facility] [address] [place] [address] 65951 Bottoming Machine Operator: Medhat Ryan MD, PhD CLIA Number: [id number] Performed By: #### 2 4323-8 #### SHALOM Esquivel ([id number]) [facility] ([facility]) [address] [place] [address] 50196 Thyrotropinon 02-23-2024 TSH Qn 2.59 m[IU]/L Normal 0.44-3.98 [facility] Comment on above: Order Comment: TSH t esting is performed using different testing methodology at [facility] than at other [facility]. Direct result comparisons should only be made within the same method. Performed By: #### 2 4339-4 #### SHALOM Esquivel ([id number]) [facility] ([facility]) [address] [place] [address] 54107 Vitamin B12on 02-23-2024 Cobalamin (Vitamin B12) [Mass/Vol] 222 pg/mL 211 - 911 pg/mL [facility] ACUTE TOXICOLOGY PANEL, BLOO Don 02-22-2024 Acetaminophen [Mass/Vol] ug/mL Normal 10.0-30.0 [facility] Comment on above: Performed By: #### D RUBL #### SHALOM Esquivel ([id number]) [facility] ([facility]) [address] [place] [address] 74995 Ethanol [Mass/Vol] mg/dL Normal <=10 [facility] Comment on above: Performed By: #### D RUBL #### SHALOM Esquivel ([id number]) [facility] ([facility]) [address] [place] [address] 98022 Salicylates [Mass/Vol] mg/dL Normal 4-20 [facility] Comment on above: Performed By: #### D RUBL #### SHALOM Esquivel ([id number]) [facility] ([facility]) [address] [place] [address] 25735 APTTon 02-22-2024 aPTT Coag (PPP) [Time] 22 s Low [facility] Acute Toxicology Panel, Bloo don 02-22-2024 Acetaminophen [Mass/Vol] ug/mL 10.0 - 30.0 ug/mL [facility] Ethanol [Mass/Vol] mg/dL NINF - 10 mg/dL [facility] Salicylates [Mass/Vol] mg/dL 4 - 20 mg/dL [facility] Blood Gas Lactic Acid, Irasema barbosa 02-22-2024 Lactate (BldV) [Moles/Vol] 2.7 mmol/L High 0.4 - 2.0 mmol/L [facility] CBC W Auto Differential pane l (Bld)on 02-22-2024 Basophils (Bld) [#/Vol] 0.13 10*3/uL High [facility] Basophils/100 WBC (Bld) 1 % 0.0 - 2.0 % [facility] Eosinophils (Bld) [#/Vol] 0.03 10*3/uL [facility] Eosinophils/100 WBC (Bld) 0.2 % 0.0 - 6.0 % [facility] Erythrocyte distribution width (RBC) [Ratio] 18.4 % High 11.5 - 14.5 % [facility] Hematocrit (Bld) [Volume fraction] 38.9 % 36.0 - 46.0 % [facility] Hemoglobin (Bld) [Mass/Vol] 11.7 g/dL Low 12.0 - 16.0 g/dL [facility] Immature granulocytes (Bld) [#/Vol] 0.07 10*3/uL [facility] Immature granulocytes/100 WBC (Bld) 0.6 % 0.0 - 0.9 % [facility] Comment on above: Immature Granulocyte Count (IG) includes promyelocytes, myelocytes and metamyelocytes but does not include bands. Percent differential counts (%) should be interpreted in the context of the absolute cell counts (cells/UL). Interpretation and review of laboratory results Abnormal [facility] Lymphocytes (Bld) [#/Vol] 1.5 10*3/uL [facility] Lymphocytes/100 WBC (Bld) 12.1 % 13.0 - 44.0 % [facility] MCH (RBC) [Entitic mass] 25.3 pg Low 26.0 - 34.0 pg [facility] MCHC (RBC) [Mass/Vol] 30.1 g/dL Low 32.0 - 36.0 g/dL [facility] MCV (RBC) [Entitic vol] 84 fL 80 - 100 fL [facility] Monocytes (Bld) [#/Vol] 1 10*3/uL [facility] Monocytes/100 WBC (Bld) 8.1 % 2.0 - 10.0 % [facility] Neutrophils (Bld) [#/Vol] 9.66 10*3/uL High [facility] Comment on above: Percent differential counts (%) should be interpreted in the context of the absolute cell counts (cells/uL). Neutrophils/100 WBC (Bld) 78 % 40.0 - 80.0 % [facility] Nucleated RBC/100 WBC (Bld) [Ratio] 0 % [facility] Platelets (Bld) [#/Vol] 402 10*3/uL [facility] RBC (Bld) [#/Vol] 4.62 10*6/uL [facility] WBC (Bld) [#/Vol] 12.4 10*3/uL High [facility] Basophils (Bld) [#/Vol] 0.13 x10*3/uL High 0.00-0.10 [facility] Comment on above: Performed By: #### 5 7021-8 #### SHALOM Esquivel ([id number]) [facility] ([facility]) [address] [place] [address] 46138 Basophils/100 WBC (Bld) 1.0 % Normal 0.0-2.0 [facility] Comment on above: Performed By: #### 5 7021-8 #### SHALOM Esquivel ([id number]) [facility] ([facility]) [address] [place] [address] 91716 Eosinophils (Bld) [#/Vol] 0.03 x10*3/uL Normal 0.00-0.70 [facility] Comment on above: Performed By: #### 5 7021-8 #### SHALOM Esquivel ([id number]) [facility] ([facility]) [address] [place] [address] 83035 Eosinophils/100 WBC (Bld) 0.2 % Normal 0.0-6.0 [facility] Comment on above: Performed By: #### 5 7021-8 #### SHALOM Esquivel ([id number]) [facility] ([facility]) [address] [place] [address] Erythrocyte distribution width (RBC) [Ratio] 18.4 % High 11.5-14.5 [facility] Comment on above: Performed By: #### 5 7021-8 #### SHALOM Esquivel ([id number]) [facility] ([facility]) [address] [place] [address] Hematocrit (Bld) [Volume fraction] 38.9 % Normal 36.0-46.0 [facility] Comment on above: Performed By: #### 5 7021-8 #### SHALOM Esquivel ([id number]) [facility] ([facility]) [address] [place] [address] Hemoglobin (Bld) [Mass/Vol] 11.7 g/dL Low 12.0-16.0 [facility] Comment on above: Performed By: #### 5 7021-8 #### SHALOM Esquivel ([id number]) [facility] ([facility]) [address] [place] [address] Immature granulocytes (Bld) [#/Vol] 0.07 x10*3/uL Normal 0.00-0.70 [facility] Comment on above: Performed By: #### 5 7021-8 #### SHALOM Esquivel ([id number]) [facility] ([facility]) [address] [place] [address] Immature granulocytes/100 WBC (Bld) 0.6 % Normal 0.0-0.9 [facility] Comment on above: Result Comment: Teri ture Granulocyte Count (IG) includes promyelocytes, myelocytes and metamyelocytes but does not include bands. Percent differential counts (%) should be interpreted in the context of the absolute cell counts (cells/UL). Performed By: #### 5 7021-8 #### SHALOM Esquivel ([id number]) [facility] ([facility]) [address] [place] [address] Lymphocytes (Bld) [#/Vol] 1.50 x10*3/uL Normal 1.20-4.80 [facility] Comment on above: Performed By: #### 5 7021-8 #### SHALOM Esquivel ([id number]) [facility] ([facility]) [address] [place] [address] 88804 Lymphocytes/100 WBC (Bld) 12.1 % Normal 13.0-44.0 [facility] Comment on above: Performed By: #### 5 7021-8 #### SHALOM Esquievl ([id number]) [facility] ([facility]) [address] [place] [address] 81402 MCH (RBC) [Entitic mass] 25.3 pg Low 26.0-34.0 [facility] Comment on above: Performed By: #### 5 7021-8 #### SHALOM Esquivel ([id number]) [facility] ([facility]) [address] [place] [address] MCHC (RBC) [Mass/Vol] 30.1 g/dL Low 32.0-36.0 [facility] Comment on above: Performed By: #### 5 7021-8 #### SHALOM Esquivel ([id number]) [facility] ([facility]) [address] [place] [address] 02704 MCV (RBC) [Entitic vol] 84 fL Normal 80-100 [facility] Comment on above: Performed By: #### 5 7021-8 #### SHALOM Esquivel ([id number]) [facility] ([facility]) [address] [place] [address] 75509 Monocytes (Bld) [#/Vol] 1.00 x10*3/uL Normal 0.10-1.00 [facility] Comment on above: Performed By: #### 5 7021-8 #### SHALOM Esquivel ([id number]) [facility] ([facility]) [address] [place] [address] 07837 Monocytes/100 WBC (Bld) 8.1 % Normal 2.0-10.0 [facility] Comment on above: Performed By: #### 5 7021-8 #### SHALOM Esquivel ([id number]) [facility] ([facility]) [address] [place] [address] Neutrophils (Bld) [#/Vol] 9.66 x10*3/uL High 1.20-7.70 [facility] Comment on above: Result Comment: Perc ent differential counts (%) should be interpreted in the context of the absolute cell counts (cells/uL). Performed By: #### 5 7021-8 #### SHALOM Esquivel ([id number]) [facility] ([facility]) [address] [place] [address] Neutrophils/100 WBC (Bld) 78.0 % Normal 40.0-80.0 [facility] Comment on above: Performed By: #### 5 7021-8 #### SHALOM Esquivel ([id number]) [facility] ([facility]) [address] [place] [address] Nucleated RBC/100 WBC (Bld) [Ratio] 0.0 /100 WBCs Normal 0.0-0.0 [facility] Comment on above: Performed By: #### 5 7021-8 #### SHALOM Esquivel ([id number]) [facility] ([facility]) [address] [place] [address] Platelets (Bld) [#/Vol] 402 x10*3/uL Normal 150-450 [facility] Comment on above: Performed By: #### 5 7021-8 #### SHALOM Esquivel ([id number]) [facility] ([facility]) [address] [place] [address] RBC (Bld) [#/Vol] 4.62 x10*6/uL Normal 4.00-5.20 [facility] Comment on above: Performed By: #### 5 7021-8 #### SHALOM Esquivel ([id number]) [facility] ([facility]) [address] [place] [address] WBC (Bld) [#/Vol] 12.4 x10*3/uL High 4.4-11.3 [facility] Comment on above: Performed By: #### 5 7021-8 #### SHALOM Esquivel ([id number]) [facility] ([facility]) [address] [place] [address] CT BRAIN ATTACK HEAD WO IV C Ana Lilia 02-22-2024 CT BRAIN ATTACK HEAD WO IV CONTRAST Interpreted By: Miguel Peñaloza, STUDY: CT BRAIN ATTACK HEAD WO IV CONTRAST; 02/22/2024 8:38 pm INDICATION: Signs/Symptoms:Stroke Evaluation, AMS, word finding difficulties, right face droop. COMPARISON: None. ACCESSION NUMBER(S): [id number] ORDERING CLINICIAN: SARA KEVIN TECHNIQUE: Axial noncontrast CT images of the head. Sagittal and coronal reformats were provided. FINDINGS: BRAIN: No acute intracranial hemorrhage. No mass effect or midline shift. Hsu-white matter interfaces are preserved. VENTRICLES and EXTRA-AXIAL SPACES: Normal. EXTRACRANIAL SOFT TISSUES: Within normal limits. PARANASAL SINUSES/MASTOIDS: The visualized paranasal sinuses and mastoid air cells are aerated. BONES AND ORBITS: No displaced skull fracture. Orbits are within normal limits. OTHER FINDINGS: None. IMPRESSION: 1. No acute intracranial hemorrhage or mass effect. MACRO: Miguel Peñaloza discussed the significance and urgency of this critical finding by telephone with SARA KEVIN on 02/22/2024 at 8:47 pm. (-RCF-) Findings: See findings. Signed by: Miguel Peñaloza 02/22/2024 8:48 PM Dictation workstation: [id number] [facility] CT Head WO contraston 2024 1. No acute intracra nial hemorrhage or mass effect. MACRO: Miguel Peñaloza discussed the significance and urgency of this critical finding by telephone with SARA KEVIN on 02/22/2024 at 8:47 pm. (-RCF-) Findings: See findings. Signed by: Miguel Peñaloza 02/22/2024 8:48 PM Dictation workstation: [id number] MMODAL Interpreted By: Miguel Peñaloza, STUDY: CT BRAIN ATTACK HEAD WO IV CONTRAST; 02/22/2024 8:38 pm INDICATION: Signs/Symptoms:Stroke Evaluation, AMS, word finding difficulties, right face droop. COMPARISON: None. ACCESSION NUMBER(S): [id number] ORDERING CLINICIAN: SARA KEVIN TECHNIQUE: Axial noncontrast CT images of the head. Sagittal and coronal reformats were provided. FINDINGS: BRAIN: No acute intracranial hemorrhage. No mass effect or midline shift. Hsu-white matter interfaces are preserved. VENTRICLES and EXTRA-AXIAL SPACES: Normal. EXTRACRANIAL SOFT TISSUES: Within normal limits. PARANASAL SINUSES/MASTOIDS: The visualized paranasal sinuses and mastoid air cells are aerated. BONES AND ORBITS: No displaced skull fracture. Orbits are within normal limits. OTHER FINDINGS: None. MMODAL Miguel Peñaloza, DO - 02/22/2024 Interpreted By: Miguel Peñaloza, STUDY: CT BRAIN ATTACK HEAD WO IV CONTRAST; 02/22/2024 8:38 pm INDICATION: Signs/Symptoms:Stroke Evaluation, AMS, word finding difficulties, right face droop. COMPARISON: None. ACCESSION NUMBER(S): [id number] ORDERING CLINICIAN: SARA KEVIN TECHNIQUE: Axial noncontrast CT images of the head. Sagittal and coronal reformats were provided. FINDINGS: BRAIN: No acute intracranial hemorrhage. No mass effect or midline shift. Hsu-white matter interfaces are preserved. VENTRICLES and EXTRA-AXIAL SPACES: Normal. EXTRACRANIAL SOFT TISSUES: Within normal limits. PARANASAL SINUSES/MASTOIDS: The visualized paranasal sinuses and mastoid air cells are aerated. BONES AND ORBITS: No displaced skull fracture. Orbits are within normal limits. OTHER FINDINGS: None. IMPRESSION: 1. No acute intracranial hemorrhage or mass effect. MACRO: Miguel Peñaloza discussed the significance and urgency of this critical finding by telephone with SARA KEVIN on 02/22/2024 at 8:47 pm. (-RCF-) Findings: See findings. Signed by: Miguel Peñaloza 02/22/2024 8:48 PM Dictation workstation: [id number] [facility] Work Phone: Radiology Study observation (narrative) [facility] Work Phone: CT Head WO contrastOrdered B y: Miguel Peñaloza on 02-22-2024 [facility] Work Phone: Choriogonadotropin.beta subu niton 02-22-2024 HCG.beta subunit Qn m[IU]/mL Normal <5 [facility] Comment on above: Order Comment: Total HCG measurement is performed using the [place] Access Immunoassay which detects intact HCG and free beta HCG subunit. This test is not indicated for use as a tumor marker. HCG testing is performed using a different test methodology at [facility] than other [facility]. Direct result comparison should only be made within the same method. Performed By: #### 2 1198-7 #### SHALOM Esquivel ([id number]) [facility] ([facility]) [address] [place] [address] 42623 Coagulation surface inducedo n 02-22-2024 aPTT Coag (PPP) [Time] 22 s Low 27-38 [facility] Comment on above: Order Comment: The A PTT is no longer used for monitoring Unfractionated Heparin Therapy. For monitoring Heparin Therapy, use the Heparin Assay. Performed By: #### 1 4979-9 #### SHALOM Esquivel ([id number]) [facility] ([facility]) [address] [place] [address] 58420 Coagulation tissue factor in ducedon 02-22-2024 PT Coag (PPP) [Time] 10.7 s Normal 9.8-12.8 [facility] Comment on above: Performed By: #### 5 902-2 #### SHALOM Esquivel ([id number]) [facility] ([facility]) [address] [place] [address] 57897 Comprehensive metabolic 2000 panelon 02-22-2024 Albumin BCP dye [Mass/Vol] 5 g/dL 3.4 - 5.0 g/dL [facility] ALP [Catalytic activity/Vol] 89 U/L 33 - 110 U/L [facility] ALT With P-5'-P [Catalytic activity/Vol] 26 U/L 7 - 45 U/L [facility] Comment on above: Patients treated wit h Sulfasalazine may generate falsely decreased results for ALT. Anion gap [Moles/Vol] 23 mmol/L High 10 - 2 0 mmol/L [facility] AST With P-5'-P [Catalytic activity/Vol] 52 U/L High 9 - 39 U/L [facility] Bilirubin [Mass/Vol] 0.7 mg/dL 0.0 - 1 .2 mg/dL [facility] [facility] Calcium [Mass/Vol] 9.8 mg/dL 8.6 - 10. 3 mg/dL [facility] Chloride [Moles/Vol] 101 mmol/L 98 - 10 7 mmol/L [facility] CO2 [Moles/Vol] 20 mmol/L Low 21 - 32 mmol/L [facility] Creatinine [Mass/Vol] 0.85 mg/dL 0.50 - 1.05 mg/dL [facility] eGFR - PINF [facility] Comment on above: Calculations of александр mated GFR are performed using the 2020 CKD-EPI Study Refit equation without the race variable for the IDMS-Traceable creatinine methods. https://jasn.asnjournals.org/content//ASN.257077 1334 Glucose [Mass/Vol] 167 mg/dL High 74 - 99 mg/dL [facility] Potassium [Moles/Vol] 3.4 mmol/L Low 3.5 - 5.3 mmol/L [facility] Protein [Mass/Vol] 8.2 g/dL 6.4 - 8.2 g/dL [facility] Sodium [Moles/Vol] 141 mmol/L 136 - 145 mmol/L [facility] Urea nitrogen [Mass/Vol] 11 mg/dL 6 - 23 mg/dL [facility] Albumin BCP dye [Mass/Vol] 5.0 g/dL Normal 3.4-5.0 [facility] Comment on above: Performed By: #### 2 4323-8 #### SHALOM Esquivel ([id number]) [facility] ([facility]) [address] [place] [address] 76371 ALP [Catalytic activity/Vol] 89 U/L Normal 33-110 [facility] Comment on above: Performed By: #### 2 4323-8 #### SHALOM Esquivel ([id number]) [facility] ([facility]) [address] [place] [address] 95402 ALT With P-5'-P [Catalytic activity/Vol] 26 U/L Normal 7-45 [facility] Comment on above: Result Comment: Petty ents treated with Sulfasalazine may generate falsely decreased results for ALT. Performed By: #### 2 4323-8 #### SHALOM Esquivel ([id number]) [facility] ([facility]) [address] [place] [address] 89781 Anion gap [Moles/Vol] 23 mmol/L High 10-20 [facility] Comment on above: Performed By: #### 2 4323-8 #### SHALOM Esquivel ([id number]) [facility] ([facility]) [address] [place] [address] 41693 AST With P-5'-P [Catalytic activity/Vol] 52 U/L High 9-39 [facility] Comment on above: Performed By: #### 2 4323-8 #### SHALOM Esquivel ([id number]) [facility] ([facility]) [address] [place] [address] 96691 Bilirubin [Mass/Vol] 0.7 mg/dL Normal 0.0-1.2 [facility] Comment on above: Performed By: #### 2 4323-8 #### SHALOM Esquivel ([id number]) [facility] ([facility]) [address] [place] [address] 63365 Calcium [Mass/Vol] 9.8 mg/dL Normal 8.6-10.3 [facility] Comment on above: Performed By: #### 2 4323-8 #### SHALOM Esquivel ([id number]) [facility] ([facility]) [address] [place] [address] 33337 Chloride [Moles/Vol] 101 mmol/L Normal 98-107 [facility] Comment on above: Performed By: #### 2 4323-8 #### SHALOM Esquivel ([id number]) [facility] ([facility]) [address] [place] [address] 22757 CO2 [Moles/Vol] 20 mmol/L Low 21-32 [facility] Comment on above: Performed By: #### 2 4323-8 #### SHALOM Esquivel ([id number]) [facility] ([facility]) [address] [place] [address] 88765 Creatinine [Mass/Vol] 0.85 mg/dL Normal 0.50-1.05 [facility] Comment on above: Performed By: #### 2 4323-8 #### SHALOM Esquivel ([id number]) [facility] ([facility]) [address] [place] [address] 28538 GFR/1.73 sq M.predicted MDRD (S/P/Bld) [Vol rate/Area] mL/min/{1.73_m2} Normal >60 [facility] Comment on above: Result Comment: Calc ulations of estimated GFR are performed using the 2020 CKD-EPI Study Refit equation without the race variable for the IDMS-Traceable creatinine methods. https://jasn.asnjournals.org/content/early//ASN.647423 2431 Performed By: #### 2 4323-8 #### SHALOM Esquivel ([id number]) [facility] ([facility]) [address] [place] [address] 74400 Glucose [Mass/Vol] 167 mg/dL High 74-99 [facility] Comment on above: Performed By: #### 2 4323-8 #### SHALOM Esquivel ([id number]) [facility] ([facility]) [address] [place] [address] 10712 Potassium [Moles/Vol] 3.4 mmol/L Low 3.5-5.3 [facility] Comment on above: Performed By: #### 2 4323-8 #### SHALOM Esquivel ([id number]) [facility] ([facility]) [address] [place] [address] 01965 Protein [Mass/Vol] 8.2 g/dL Normal 6.4-8.2 [facility] Comment on above: Performed By: #### 2 4323-8 #### SHALOM Esquivel ([id number]) [facility] ([facility]) [address] [place] [address] 69285 Sodium [Moles/Vol] 141 mmol/L Normal 136-145 [facility] Comment on above: Performed By: #### 2 4323-8 #### SHALOM Esquivel ([id number]) [facility] ([facility]) [address] [place] [address] 09171 Urea nitrogen [Mass/Vol] 11 mg/dL Normal 6-23 [facility] Comment on above: Performed By: #### 2 4323-8 #### SHALOM Esquivel ([id number]) [facility] ([facility]) [address] [place] [address] Ethanolon 02-22-2024 Ethanol [Mass/Vol] mg/dL NINF - 10 mg/dL [facility] Comment on above: For medical use only . Ethanol [Mass/Vol] mg/dL Normal <=10 [facility] Comment on above: Result Comment: For medical use only. Performed By: #### 5 643-2 #### SHALOM Esquivel ([id number]) [facility] ([facility]) [address] [place] [address] Ethanol [Mass/Vol]on 025 Interpretation and review of laboratory results Normal [facility] Gamma glutamyl transferaseon 02-22-2024 Gamma glutamyl transferase [Catalytic activity/Vol] 38 U/L Normal 5-55 [facility] Comment on above: Result Comment: [facility] ED HEMOLYSIS DETECTED. The result may be falsely decreased due to hemolysis or other interferents. Clinical correlation is recommended. Repeat testing may be considered. Performed By: #### 2 4339-4 #### SHALOM Esquivel ([id number]) [facility] ([facility]) [address] [place] [address] 20757 Gas panel (BldV)on 5 Anion gap 4 (BldV) [Moles/Vol] 21 mmol/L 10.0 - 25.0 mmol/L [facility] Base excess Calc (BldV) [Moles/Vol] -5.9000 mmol/L Low -2.0 - 3.0 mmol/L [facility] Calcium.ionized (BldV) [Moles/Vol] 1.2 mmol/L 1.10 - 1.33 mmol/L [facility] Chloride (BldV) [Moles/Vol] 104 mmol/L 98 - 107 mmol/L [facility] CO2 (BldV) [Partial pressure] 37 mm[Hg] Low [facility] Glucose [Mass/Vol] 177 mg/dL High 74 - 99 mg/dL [facility] HCO3 (Bld) [Moles/Vol] 19.5 mmol/L Low 22.0 - 26.0 mmol/L [facility] Hematocrit Est (Bld) [Volume fraction] 36 % 36.0 - 46.0 % [facility] Hemoglobin (Bld) [Mass/Vol] 12 g/dL 12.0 - 16.0 g/dL [facility] Inhaled oxygen concentration 21 % [facility] Interpretation and review of laboratory results Abnormal [facility] Lactate (BldV) [Moles/Vol] 8.2 mmol/L Critically high 0.4 - 2.0 mmol/L [facility] Oxygen (BldV) [Partial pressure] 61 mm[Hg] High [facility] Oxygen saturation in Venous blood 89 % High 45 - 75 % [facility] Oxyhemoglobin (BldV) [Mass fraction] 87.8 % High 45.0 - 75.0 % [facility] pH (BldV) 7.33 [pH] 7.33 - 7.43 pH [facility] Potassium (BldV) [Moles/Vol] 3.3 mmol/L Low 3.5 - 5.3 mmol/L [facility] Sodium (BldV) [Moles/Vol] 141 mmol/L 136 - 145 mmol/L [facility] Anion gap 4 (BldV) [Moles/Vol] 21.0 mmol/L Normal 10.0-25.0 [facility] Comment on above: Performed By: #### 2 4339-4 #### SHALOM Esquivel ([id number]) [facility] ([facility]) [address] [place] [address] Base excess Calc (BldV) [Moles/Vol] -5.9000 mmol/L Low -2.0-3.0 [facility] Comment on above: Performed By: #### 2 4339-4 #### SHALOM Esquivel ([id number]) [facility] ([facility]) [address] [place] [address] Calcium.ionized (BldV) [Moles/Vol] 1.20 mmol/L Normal 1.10-1.33 [facility] Comment on above: Performed By: #### 2 4339-4 #### SHALOM Esquivel ([id number]) [facility] ([facility]) [address] [place] [address] 49260 Chloride (BldV) [Moles/Vol] 104 mmol/L Normal 98-107 [facility] Comment on above: Performed By: #### 2 4339-4 #### SHALOM Esquivel ([id number]) [facility] ([facility]) [address] [place] [address] 94644 CO2 (BldV) [Partial pressure] 37 mm Hg Low 41-51 [facility] Comment on above: Performed By: #### 2 4339-4 #### SHALOM Esquivel ([id number]) [facility] ([facility]) [address] [place] [address] 26172 Glucose [Mass/Vol] 177 mg/dL High 74-99 [facility] Comment on above: Performed By: #### 2 4339-4 #### SHALOM Esquivel ([id number]) [facility] ([facility]) [address] [place] [address] 78890 HCO3 (Bld) [Moles/Vol] 19.5 mmol/L Low 22.0-26.0 [facility] Comment on above: Performed By: #### 2 4339-4 #### SHALOM Esquivel ([id number]) [facility] ([facility]) [address] [place] [address] 80794 Hematocrit Est (Bld) [Volume fraction] 36.0 % Normal 36.0-46.0 [facility] Comment on above: Performed By: #### 2 4339-4 #### SHALOM Esquivel ([id number]) [facility] ([facility]) [address] [place] [address] 15093 Hemoglobin (Bld) [Mass/Vol] 12.0 g/dL Normal 12.0-16.0 [facility] Comment on above: Performed By: #### 2 4339-4 #### SHALOM Esquivel ([id number]) [facility] ([facility]) [address] [place] [address] 29151 Inhaled oxygen concentration 21 % Normal [facility] Comment on above: Performed By: #### 2 4339-4 #### SHALOM Esquivel ([id number]) [facility] ([facility]) [address] [place] [address] 77665 Lactate (BldV) [Moles/Vol] 8.2 mmol/L Critically high 0.4-2.0 [facility] Comment on above: Performed By: #### 2 4339-4 #### SHALOM Esquivel ([id number]) [facility] ([facility]) [address] [place] [address] 84455 Oxygen (BldV) [Partial pressure] 61 mm Hg High 35-45 [facility] Comment on above: Performed By: #### 2 4339-4 #### SHALOM Esquivel ([id number]) [facility] ([facility]) [address] [place] [address] 42429 Oxygen saturation in Venous blood 89 % High 45-75 [facility] Comment on above: Performed By: #### 2 4339-4 #### SHALOM Esquivel ([id number]) [facility] ([facility]) [address] [place] [address] 52937 Oxyhemoglobin (BldV) [Mass fraction] 87.8 % High 45.0-75.0 [facility] Comment on above: Performed By: #### 2 4339-4 #### SHALOM Esquivel ([id number]) [facility] ([facility]) [address] [place] [address] 98043 pH (BldV) 7.33 [pH] Normal 7.33-7.43 [facility] Comment on above: Performed By: #### 2 4339-4 #### SHALOM Esquivel ([id number]) [facility] ([facility]) [address] [place] [address] 24301 Potassium (BldV) [Moles/Vol] 3.3 mmol/L Low 3.5-5.3 [facility] Comment on above: Performed By: #### 2 4339-4 #### SHALOM Esquivel ([id number]) [facility] ([facility]) [address] [place] [address] 22079 Sodium (BldV) [Moles/Vol] 141 mmol/L Normal 136-145 [facility] Comment on above: Performed By: #### 2 4339-4 #### SHALOM Esquivel ([id number]) [facility] ([facility]) [address] [place] [address] 55701 HCG.beta subunit Qnon 2024 Interpretation and review of laboratory results Normal [facility] Total HCG measuremen t is performed using the Giana brettapproved Access Immunoassay which detects intact HCG and free beta HCG subunit. This test is not indicated for use as a tumor marker. HCG testing is performed using a different test methodology at [facility] than other [facility]. Direct result comparison should only be made within the same method. [facility] Lactateon 02-22-2024 Lactate (BldV) [Moles/Vol] 2.7 mmol/L High 0.4-2.0 [facility] Comment on above: Performed By: #### 2 4339-4 #### SHALOM Esquivel ([id number]) [facility] ([facility]) [address] [place] [address] 24360 Lactate (BldV) [Moles/Vol]on 02-22-2024 Interpretation and review of laboratory results Abnormal [facility] Magnesiumon 02-22-2024 Magnesium [Mass/Vol] 1.81 mg/dL Normal 1.60-2.40 [facility] Comment on above: Result Comment: [facility] ED HEMOLYSIS DETECTED. The result may be falsely elevated due to hemolysis or other interferents. Clinical correlation is recommended. Repeat testing may be considered. Performed By: #### 2 4339-4 #### SHALOM Esquivel ([id number]) [facility] ([facility]) [address] [place] [address] 63445 No Panel Informationon 02-21 Interpretation and review of laboratory results Abnormal [facility] Interpretation and review of laboratory results Normal [facility] PT Coag (PPP) [Time]on 02-21 INR Coag (PPP) [Relative time] 1 {INR} 0.9 - 1.1 [facility] INR Coag (PPP) [Relative time] 1.0 Normal 0.9-1.1 [facility] Comment on above: Performed By: #### 5 902-2 #### SHALOM Esquivel ([id number]) [facility] ([facility]) [address] [place] [address] Prolactinon 02-22-2024 Prolactin [Mass/Vol] 69.2 ug/L High 3.0-20.0 [facility] Comment on above: Performed By: #### 2 4339-4 #### SHALOM Esquivel ([id number]) [facility] ([facility]) [address] [place] [address] 91407 Protime-INRon 02-22-2024 PT Coag (PPP) [Time] 10.7 s [facility] Tropinin I.cardiac panel Hig h sensitivity methodon 02-22-2024 Interpretation and review of laboratory results Normal [facility] Less than 99th perce ntile of normal range cutoff- Female and children under 18 years old <14 ng/L; Male <21 ng/L: Negative Repeat testing should be performed if clinically indicated. Female and children under 18 years old 14-50 ng/L; Male 21-50 ng/L: Consistent with possible cardiac damage and possible increased clinical risk. Serial measurements may help to assess extent of myocardial damage. >50 ng/L: Consistent with cardiac damage, increased clinical risk and myocardial infarction. Serial measurements may help assess extent of myocardial damage. NOTE: Children less than 1 year old may have higher baseline troponin levels and results should be interpreted in conjunction with the overall clinical context. NOTE: Troponin I testing is performed using a different testing methodology at [facility] than at other [facility]. Direct result comparisons should only be made within the same method. [facility] Troponin I, High Sensitivity on 02-22-2024 Tropinin I.cardiac panel High sensitivity method 6 ng/L 0 - 13 ng/L [facility] Troponin I.cardiac panelon 0 02-22-2024 Tropinin I.cardiac panel High sensitivity method 6 ng/L Normal 0-13 [facility] Comment on above: Order Comment: Less than 99th percentile of normal range cutoff- Female and children under 18 years old <14 ng/L; Male <21 ng/L: Negative Repeat testing should be performed if clinically indicated. Female and children under 18 years old 14-50 ng/L; Male 21-50 ng/L: Consistent with possible cardiac damage and possible increased clinical risk. Serial measurements may help to assess extent of myocardial damage. >50 ng/L: Consistent with cardiac damage, increased clinical risk and myocardial infarction. Serial measurements may help assess extent of myocardial damage. NOTE: Children less than 1 year old may have higher baseline troponin levels and results should be interpreted in conjunction with the overall clinical context. NOTE: Troponin I testing is performed using a different testing methodology at [facility] than at other [facility]. Direct result comparisons should only be made within the same method. Performed By: #### 8 9577-1 #### SHALOM Esquivel ([id number]) [facility] ([facility]) [address] [place] [address] 32902 aPTT Coag (PPP) [Time]on The APTT is no longe r used for monitoring Unfractionated Heparin Therapy. For monitoring Heparin Therapy, use the Heparin Assay. [facility] hCG, quantitative, on 02-22-2024 HCG.beta subunit Qn [facility] Ambulatory Visit Summaryon 1 03-06-2023 Ambulatory Visit Summary Ambulatory Visit Summary ANTOINETTE RECIO :1995 Visit Date:01/05/2024 Ambulatory Visit Instructions Your Diagnosis ADHD Severe anxiety Your Care Team Attending Physician - MAYITO JACKSON Primary Care Physician - MAYITO JACKSON This Is Your Medications List alprazolam (Xanax 0.25 mg Tab) amphetamine-dextroampheta mine (Adderall 5 mg oral tablet) Procedures Performed Open reduction and internal fixation of fracture (06/14/2020), Gastric sleeve (2019), Tonsillectomy. Discharge Vitals Heart Rate (Peripheral) 59 Respiratory Rate 15 Blood Pressure 136/74 Height 165 cm Height 65 in Weight 73.5 kg Weight 162.04 lb BMI 27 What to do next Scheduled Follow-Up Appointments Thursday 2:00 PM EST With: MAYITO JACKSON Where: [facility] [place] [address] [place] [address]- Medications What How Much When Why Instructions New alprazolam (Xanax 0.25 mg Tab) 1 Tablets By Mouth 2 times a day Severe anxiety Refills: 1 Pickup at [facility]/pharmacy #[id number] New amphetamine-dextroampheta mine (Adderall 5 mg oral tablet) 1 Tablets By Mouth 2 times a day ADHD Pickup at [facility]/pharmacy #[id number] Pharmacy Information [facility]/pharmacy #[id number]: [address] [place], [place] [id number] [phone] Medications and Immunizations Administered Not Given influenza virus vaccine, inactivated, Patient Refuses Allergies azithromycin (Tachycardia) Problems Ongoing - Any problem that you are currently receiving treatment for. Clavicle fracture Patient Survey You may receive a survey via text or e-mail asking about your office visit. Please share your experience with us by completing your survey. We appreciate your feedback and thank you for choosing us for your care. Normal [facility] Family Medicine Office/Clini c Noteon 01-05-2024 Family Medicine Office/Clinic Note Family Medicine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 EST\.br\Electronically Co-Signed By: Antonieta Chaudhari, Ramon Self\.br\Date and Time Co-Signed: 12/23/23 15:33 EST ED Patient Summaryon 024 ED Patient Summary ED Patient Summary [address] [address] Patient Discharge Instructions Person Information Name: ANTOINETTE RECIO Age: 28 Years Arrival Date: 12/23/2023 09:14:08 Discharge Diagnosis: Nonspecific chest pain; UTI (urinary tract infection) Primary Care Physician: NONE, XXXX Provider Information Primary Provider: Ramon Fung M.D. Advanced Sed Special Education Teacher:None The exam and treatment you received in the Emergency Department were for an urgent problem and are not intended as complete care. It is important that you follow up with a doctor, nurse practitioner, or physician???s assistant fitness manager for ongoing care. If your symptoms become worse or you do not improve as expected and you are unable to reach your usual health care provider, you should return to the Emergency Department. We are available 24 hours a day. ANTOINETTE RECIO has been given the following list of patient education materials, prescriptions and follow-up instructions: Follow-up Instructions: With: Address: When: Rojelio Durham [address] [place] [address], [facility], [place] [address] Business (1) In 3 days 12/26/2023 Comments: Call Dr for diagnosis based follow up In the event that this physician does not participate in your insurance network, please consult with your insurance company to find a nearby participating provider. Patient Education Materials: Urinary Tract Infection, Adult; Nonspecific Chest Pain, Adult, [id number] A MESSAGE TO ALL PATIENTS REGARDING OPIOIDS PRESCRIPTION OPIOIDS: WHAT YOU NEED TO KNOW Prescription opioids can be used to help relieve [id number] pain and are often prescribed following a [...] as well, even when taken as directed: ??? Tolerance???meaning you might need to take more of the medication for the same pain relief ??? Physical dependence???meaning you have symptoms of withdrawal when a medication is stopped ??? Increased sensitivity to pain ??? Constipation ??? Nausea, vomiting, and dry mouth ??? Sleepiness and dizziness ??? Confusion ??? Depression ??? Low levels of testosterone that can result in lower sex drive, energy, and strength ??? Itching and sweating RISKS ARE GREATER WITH: ??? History of drug misuse, substance use disorder, or overdose ??? Mental health conditions (such as depression or anxiety) ??? Sleep apnea ??? Older age (65 years and older) ??? Avoid alcohol while taking prescription opioids. Also, unless specifically advised by your health care provider, medications to avoid include: ??? Benzodiazepines (such as Xanax or Valium) ??? Muscle relaxants (such as Soma or Flexeril) ??? Hypnotics (such as Ambien or Lunesta) ??? Other prescription opioids KNOW YOUR OPTIONS Talk to your health care provider about ways to manage your pain that don???t involve prescription opioids. Some of these options may actually work better and have fewer risks and side effects. Options may include: ??? Pain relievers such as acetaminophen, ibuprofen, and naproxen ??? Some medication that are also used for depression or seizures ??? Physical therapy and exercise ??? Cognitive behavioral therapy, a psychological, goal-directed approach, in which patients learn how to modify physical, behavioral, and emotional triggers of pain and stress. IF YOU ARE PRESCRIBED OPIOIDS FOR PAIN: ??? Never take opioids in greater amounts or more often than prescribed. ??? Follow up with your primary health care provider. o Work together to create a plan on how to manage your pain. o Talk about ways to help manage your pain that don???t involve prescription opioids. o Talk about any and all concerns and side effects. ??? Help prevent misuse and abuse o Never sell or share prescription opioids. o Never use another person???s prescription opioids. ??? Store prescription opioids in a secure place and out of reach of others (this may include visitors, children, friends, and family). ??? Safely dispose of unused prescription opioids: Find your community drug take-back program or your pharmacy mail-back program, or flush them down the toilet, following guidance from the Food and Drug Administration (www.fda.gov/Drugs/Resour cesForYou). ??? Visit www.cdc.gov/drugoverdose to learn about (more content not included)... Normal [facility] Grp A Strp PCRon 12-23-2023 Group A Strep Negative Normal Negative [facility] Comment on above: Order Comment: Order Added on by Discern Rule. Result Comment: Test ing performed using DNA amplification. Performed By: #### 1 [id number] #### [facility] [address] [id number] Grp A Strp Intrl Ctrl Pass Normal Fis [facility] Comment on above: Order Comment: Order Added on by Discern Rule. Performed By: #### 1 [id number] #### [facility] [address] [id number] HEMATOLOGYOrdered By: SYSTEM SYSTEM on 12-23-2023 Basophils/100 WBC (Bld) 0.5 % Normal 0.0 - 2.0 % Remisol Heme Basophils/Leukocytes Auto (Bld) [Pure # fraction] 0.0 E9/L Normal 0.0 - 0.2 E9/L Remisol Heme Eosinophils (Bld) [#/Vol] 0.0 E9/L Normal 0.0 - 0.5 E9/L [facility] Heme Eosinophils/100 WBC (Bld) 0.3 % Normal 0.0 - 8.0 % Remisol Heme Erythrocyte distribution width (RBC) [Ratio] 20.8 % High 10.9 - 14.2 % Remisol Heme Hematocrit (Bld) [Volume fraction] 32.3 % Low 34.0 - 46.0 % Remisol Heme Hemoglobin (Bld) [Mass/Vol] 10.5 g/dL Low 12.0 - 16.0 gm/dL [facility] Heme Lymphocytes (Bld) [#/Vol] 0.5 E9/L Low 1.0 - 4.0 E9/L [facility] Heme Lymphocytes/100 WBC (Bld) 7.4 % Low 14.0 - 50.0 % Remisol Heme MCH (RBC) [Entitic mass] 26.7 pg Low 27.0 - 34.0 pg Remisol Heme MCHC (RBC) [Mass/Vol] 32.7 g/dL Normal 31.4 - 36.0 gm/dL [facility] Heme MCV (RBC) [Entitic vol] 81.6 fL Normal 80.0 - 100.0 fL [facility] Heme Monocytes (Bld) [#/Vol] 0.3 E9/L Normal 0.2 - 1.0 E9/L [facility] Heme Monocytes/100 WBC (Bld) 4.9 % Normal 4.0 - 14.0 % [facility] Heme Neutrophils (Bld) [#/Vol] 5.8 E9/L Normal 2.0 - 7.5 E9/L [facility] Heme Neutrophils/100 WBC (Bld) 86.9 % High 36.0 - 75.0 % [facility] Heme Platelet 187.0 E9/L Normal 150.0 - 500.0 E9/L [facility] Heme Platelet mean volume (Bld) [Entitic vol] 6.7 fL Normal 6.4 - 10.8 fL [facility] Heme RBC (Bld) [#/Vol] 4.0 E12/L Low 4.3 - 5.9 E12/L [facility]e WBC corrected for nucl RBC Auto (Bld) [#/Vol] 6.6 E9/L Normal 4.0 - 11.0 E9/L [facility] Heme MICRO OTHER TESTSOrdered By: Shyla Wilson on 12-23-2023 S. pyogenes Ag IA.rapid Ql (Throat) Negative (12/23/23 9:53 AM) Normal Negative [facility] Man Sero Nelson Screenon 12-23-2023 Heterophile Ab LA Ql (S) Negative Normal Negative [facility] Comment on above: Performed By: #### 2 [id number] #### [facility] [address] [place] [address] PT & PTTon 12-23-2023 aPTT Coag (PPP) [Time] 30.8 second(s) Normal 25.1-36.5 [facility] Comment on above: Result Comment: Para meter 15 days - 4 weeks 1 - 5 months 6 - 11 months 1 - 5 years 6 - 10 years 11 - 17 years PTT Mean: 35.4 (27.6-45.6) Mean: 33.5 (24.8-40.7) Mean: 32.4 (25.1-40.7) Mean: 31.6 (24.0-39.2) Mean: 31.6 (26.9-38.7) Mean: 31.0 (24.6-38.4) Pediatric Reference ranges were obtained from a study by Cleveland Garcia et al. prepared from 1437 samples obtained at 7 different centers using the same coagulation reagent and instrumentation as [facility]. Currently there are no coagulation studies available worldwide for children to 14 days, and no normal ranges. Heparin therapeutic range (represented by Anti-Factor Xa activity of 0.2 - 0.4 U/mL) corresponds to PTT of 56.6 - 109.0 sec. Performed By: #### 1 [id number] #### [facility] [address] [place] [address] INR Coag (PPP) [Relative time] 1.06 {INR} Invalid Interpretation Code [facility] Comment on above: Result Comment: INR results are specifically intended to assess patients stabilized on long-term Anticoagulation therapy suggested INR???s ???Less Intensive Anticoagulation??? 2.0 ??? 3.0 Conventional Range 3.0 ??? 4.5 Performed By: #### 1 [id number] #### [facility] [address] [place] [address] PT Coag (PPP) [Time] 11.9 second(s) Normal 9.4-12.5 [facility] Comment on above: Result Comment: 15 d ays - 4 weeks 1 - 5 months 6 -11 months 1- 5 years 6-10 years 11 -17 years Mean: 11.2 (9.5-12.6) Mean: 11.0 (9.7-12.8) Mean: 11.0 (9.8-13.0) Mean: 11.3 (9.9-13.4) Mean: 11.7 (10.0-14.6) Mean: 11.8 (10.0 - 14.1) Pediatric Reference ranges were obtained from a study by Cleveland Garcia et al. prepared from 1437 samples obtained at 7 different centers using the same coagulation reagent and instrumentation as [facility]. Currently there are no coagulation studies available worldwide for children to 14 days, and no normal ranges. Performed By: #### 1 [id number] #### [facility] [address] [place] [address] Rapid Strep w/rfxon 12-23-19 24 S. pyogenes Ag IA.rapid Ql (Throat) Negative Normal Negative [facility] Comment on above: Performed By: #### 2 [id number] #### [facility] [address] [place] [address] SEROLOGYOrdered By: Arianna Calderon on 12-23-2023 Beta HCG ( test) Ql Negative (12/23/23 9:43 AM) Normal [facility] Man Sero Heterophile Ab LA Ql (S) Negative (12/23/23 9:43 AM) Normal Negative [facility] Man Sero Troponin 0 Hr.on 12-23-2023 Troponin HS 3.50 pg/mL Low 10.10-27.10 [facility] Comment on above: Result Comment: The 95% CI (Confidence Interval) PPV (Positive Predictive Value) for myocardial infarction in females is 38 pg/mL, in males 51 pg/mL. The results should be used in conjunction with clinical conditions of myocardial infarction. (Access High Sensitivity Troponin I Instructions For Use, Giana Micheline, September 2017) Performed By: #### 1 [id number] #### [facility] [address] [place] [address] Troponin 1 Hr.on 12-23-2023 Troponin HS 3.20 pg/mL Low 10.10-27.10 [facility] Comment on above: Result Comment: The 95% CI (Confidence Interval) PPV (Positive Predictive Value) for myocardial infarction in females is 38 pg/mL, in males 51 pg/mL. The results should be used in conjunction with clinical conditions of myocardial infarction. (Access High Sensitivity Troponin I Instructions For Use, Giana Micheline, September 2017) Performed By: #### 1 [id number] #### [facility] [address] [place] [address] U Drug Screenon 12-23-2023 Amphetamines Screen method >1000 ng/mL Ql (U) Negative Normal NEGATIVE [facility] Comment on above: Result Comment: Nega tive Cutoff: <1000 ng/mL Performed By: #### 2 [id number] #### [facility] [address] [place] [address] Barbiturates Screen Ql (U) Negative Normal NEGATIVE [facility] Comment on above: Result Comment: Nega tive Cutoff: <200 ng/mL Performed By: #### 2 [id number] #### [facility] [address] [place] [address] Benzodiazepines Ql (U) Negative Normal NEGATIVE [facility] Comment on above: Result Comment: Nega tive Cutoff: <200 ng/mL Performed By: #### 2 [id number] #### [facility] [address] [place] [address] Cannabinoids Screen Ql (U) Negative Normal NEGATIVE [facility] Comment on above: Result Comment: Nega tive Cutoff: <50 ng/mL Performed By: #### 2 [id number] #### [facility] [address] [place] [address] Cocaine Ql (U) Negative Normal NEGATIVE [facility] Comment on above: Result Comment: Nega tive Cutoff: <300 ng/mL Performed By: #### 2 [id number] #### [facility] [address] [place] [address] Opiates Screen Ql (U) Negative Normal NEGATIVE [facility] Comment on above: Result Comment: Nega tive Cutoff: <300 ng/mL Performed By: #### 2 [id number] #### [facility] [address] [place] [address] Phencyclidine Screen method >25 ng/mL Ql (U) Negative Normal NEGATIVE [facility] Comment on above: Result Comment: Nega tive Cutoff: <25 ng/mL These drug screen results are to be used for medical (i.e., treatment) purposes only. Unconfirmed drug screening results must not be used for non-medical purposes (e.g., employment testing, legal testing). Performed By: #### 2 [id number] #### [facility] [address] [place] [address] U Fentanyl Negative Normal NEGATIVE [facility] Comment on above: Result Comment: Nega tive Cutoff: <5 ng/mL These drug screen results are to be used for medical (i.e., treatment) purposes only. Unconfirmed drug screening results must not be used for non-medical purposes (e.g., employment testing, legal testing). Performed By: #### 2 [id number] #### [facility] [address] [place] [address] UA with Cult Rflxon 12-23-19 24 Bacteria Auto Ql (U) Trace Normal Trace [facility] Comment on above: Performed By: #### 4 [id number] #### [facility] [address] [place] [address] Bilirubin Ql (U) Negative Normal Negative [facility] Comment on above: Performed By: #### 4 [id number] #### [facility] [address] [place] [address] Clarity (U) Turbid Abnormal Clear [facility] Comment on above: Performed By: #### 4 [id number] #### [facility] [address] [place] [address] Color (U) Yellow Normal Yellow [facility] Comment on above: Result Comment: Micr oscopic readings are only performed on those samples that meet specific criteria set forth by [facility]. Performed By: #### 4 [id number] #### [facility] [address] [place] [address] Epithelial cells.squamous Auto (Urine sed) [#/Area] 5-8 Invalid Interpretation Code [facility] Comment on above: Performed By: #### 4 [id number] #### [facility] [address] [place] [address] Glucose Ql (U) Negative Normal Negative [facility] Comment on above: Performed By: #### 4 [id number] #### [facility] [address] [place] [address] Hemoglobin Auto test strip (U) [Mass/Vol] 1+ mg/dL Abnormal Negative [facility] Comment on above: Performed By: #### 4 [id number] #### [facility] [address] [place] [address] Ketones Auto test strip Ql (U) 1+ mg/dL Abnormal Negative [facility] Comment on above: Performed By: #### 4 [id number] #### [facility] [address] [place] [address] Leukocyte esterase Auto test strip Ql (U) 500 Shu/uL Abnormal Negative [facility] Comment on above: Performed By: #### 4 [id number] #### [facility] [address] [place] [address] Mucus Auto Ql (U) 2+ [id number] Abnormal Negative [facility] Comment on above: Performed By: #### 4 [id number] #### [facility] [address] [place] [address] Nitrite Auto test strip Ql (U) Negative Normal Negative [facility] Comment on above: Performed By: #### 4 [id number] #### [facility] [address] [place] [address] pH (U) 6.0 [pH] Invalid Interpretation Code 5.0-9.0 [facility] Comment on above: Performed By: #### 4 [id number] #### [facility] [address] [place] [address] Protein Ql (U) 1+ mg/dL Abnormal Negative [facility] Comment on above: Performed By: #### 4 [id number] #### [facility] [address] [place] [address] RBC Ql (U) 4-20 Abnormal 0-3 [facility] Comment on above: Performed By: #### 4 [id number] #### [facility] [address] [id number] Specific gravity (U) [Rel density] 1.023 Invalid Interpretation Code 1.005-1.030 [facility] Comment on above: Performed By: #### 4 [id number] #### [facility] [address] [id number] Urobilinogen (U) [Mass/Vol] Negative Normal Negative [facility] Comment on above: Performed By: #### 4 [id number] #### [facility] [address] [place], [place] [id number] WBC Auto (Urine sed) [#/Area] >75 Abnormal 0-5 [facility] Comment on above: Performed By: #### 4 [id number] #### [facility] [address] [place] [id number] Type of Urine collection method Clean Catch Normal [facility] Comment on above: Performed By: #### 4 [id number] #### [facility] [address] [place] [id number] URINALYSISOrdered By: SYSTEM SYSTEM on 12-23-2023 Bacteria Auto Ql (U) Trace /HPF Normal Trace/HPF [facility] UA Auto SS Bilirubin Ql (U) Negative Normal Negativemg/ d L [facility] UA Auto SS Clarity (U) Turbid *ABN* (12/23/23 11:16 AM) Invalid Interpretation Code Clear [facility] UA Auto SS Color (U) Yellow 3 (12/23/23 11:16 AM) Normal Yellow [facility]A Auto SS Comment on above: Interpretive Data: M icroscopic readings are only performed on those samples that meet specific criteria set forth by [facility]. Epithelial cells.squamous Auto (Urine sed) [#/Area] 5-8 graded/HPF Invalid Interpretation Code [facility] UA Auto SS Glucose Ql (U) Negative Normal Negativemg/d L [facility] UA Auto SS Hemoglobin Auto test strip (U) [Mass/Vol] 1+ mg/dL Invalid Interpretation Code Negativemg/d L [facility] UA Auto SS Ketones Auto test strip Ql (U) 1+ mg/dL Invalid Interpretation Code Negativemg/d L [facility] UA Auto SS Leukocyte esterase Auto test strip Ql (U) 500 Shu/uL Shu/uL Invalid Interpretation Code NegativeLeu/ uL [facility] UA Auto SS Mucus Auto Ql (U) 2+ graded/LPF Invalid Interpretation Code Negativegrad ed/LPF [facility] UA Auto SS Nitrite Auto test strip Ql (U) Negative Normal Negativemg/d L [facility] UA Auto SS pH (U) 6.0 *NA* (12/23/23 11:16 AM) Invalid Interpretation Code 5.0 - 9.0 [facility] UA Auto SS Protein Ql (U) 1+ mg/dL Invalid Interpretation Code Negativemg/d L [facility] UA Auto SS RBC Ql (U) 4-20 graded/HPF Invalid Interpretation Code 0-3graded/HP F [facility] UA Auto SS Specific gravity (U) [Rel density] 1.023 *NA* (12/23/23 11:16 AM) Invalid Interpretation Code 1.005 - 1.030 [facility] UA Auto SS Urobilinogen (U) [Mass/Vol] Negative Normal Negativemg/d L [facility] UA Auto SS WBC Auto (Urine sed) [#/Area] >75 graded/HPF Invalid Interpretation Code 0-5graded/HP F [facility] UA Auto SS URINALYSISOrdered By: Glenn martínez on 12-23-2023 UA Spec Desc Clean Catch (12/23/23 11:16 AM) Normal [facility] UA Auto SS Work Phone: XR Chest 2 Viewson 4 XR Chest 2 Views Exam Date/Time: 12/23/2023 10:18 EST Reason for Exam: Chest pain Report IMPRESSION: NO RADIOGRAPHIC EVIDENCE OF ACTIVE DISEASE IN THE CHEST. CLINICAL INFORMATION: Chest pain COMPARISON: 06/11/2020. FINDINGS: 2 views. Open reduction internal fixation left mid clavicular fracture.. Cardiopericardial silhouette is normal. Pulmonary vasculature is normal. Lungs are clear. Ordering Provider: Glenn Quiroga FINAL REPORT Dictated: 12/23/2023 10:22 am Savage Wisdom MD Signed (Electronic Signature): 12/23/2023 10:22 am Signed by: Savage Wisdom MD Transcribed by: MICHAEL Technologist: ANDRÉS Technical Comments Radiation Dose: Ka,r in mGy = . DAP = . Normal [facility] eGFRon 12-23-2023 eGFR 125 mL/min/1.73 m2 Normal >=59 [facility] Comment on above: Performed By: #### 1 [id number] #### [facility] [address] [place] [address] Activated partial thrombopla stin time (aPTT) in platelet poor plasma by coagulation aOrdered By: Bret Javier on 11-26-2023 aPTT Coag (PPP) [Time] 28.6 s 25.1-36.5 [facility] Comment on above: A hematocrit value g reater than 55% may lead to inaccurate results in coagulation testing. Patients having hematocrit values >55% require a special collection tube for coagulation studies. Please contact the laboratory at [phone] for redraw instructions. Alanine aminotransferase [En zymatic activity/volume] in Serum or PlasmaOrdered By: Bret Javier on 11-26-2023 ALT [Catalytic activity/Vol] 13 U/L Normal 7-52 [facility] Comment on above: Performed By: #### P TT, ETOH, MG, [id number], [id number], TSH3, PT, BMP, HEPATIC, CBC #### [facility] [address] Albumin [Mass/volume] in Ser um or Plasma by Bromocresol green (BCG) dye binding methoOrdered By: Bret Javier on 11-26-2023 Albumin BCG dye [Mass/Vol] 3.3 g/dL Low 3.5-5.7 [facility] Alkaline phosphatase [Enzyma tic activity/volume] in Serum or PlasmaOrdered By: Bret Javier on 11-26-2023 ALP [Catalytic activity/Vol] 83 U/L Normal 34-104 [facility] Comment on above: Performed By: #### P TT, ETOH, MG, [id number], [id number], TSH3, PT, BMP, HEPATIC, CBC #### [address] Aspartate aminotransferase [ Enzymatic activity/volume] in Serum or PlasmaOrdered By: Bret Javier on 11-26-2023 AST [Catalytic activity/Vol] 21 U/L Normal 13-39 [facility] Comment on above: Performed By: #### P TT, ETOH, MG, [id number], [id number], TSH3, PT, BMP, HEPATIC, CBC #### [address] Automated basophil %Ordered By: Bret Javier on 11-26-2023 Basophils/100 WBC (Bld) 1.2 % Normal . [facility] Comment on above: Performed By: #### P TT, ETOH, MG, [id number], [id number], TSH3, PT, BMP, HEPATIC, CBC #### [facility] [address] [place] [address] Automated basophil countOrde red By: Bret Javier on 11-26-2023 Basophils (Bld) [#/Vol] 0.1 10*3/uL Normal 0.0-0.2 [facility] Comment on above: Result Comment: PERF ORMED BY: [place] [address] PATHOLOGIST [employer] KELLIE ALVARADO M.D. Performed By: #### P TT, ETOH, MG, [id number], [id number], TSH3, PT, BMP, HEPATIC, CBC #### [address] Automated blood monocyte cou ntOrdered By: Bret Javier on 11-26-2023 Monocytes (Bld) [#/Vol] 0.4 10*3/uL Normal 0.0-0.8 [facility] Comment on above: Performed By: #### P TT, ETOH, MG, [id number], [id number], TSH3, PT, BMP, HEPATIC, CBC #### [facility] [address] Automated eosinophil %Ordere d By: Bret Javier on 11-26-2023 Eosinophils/100 WBC (Bld) 0.6 % Normal . [facility] Comment on above: Performed By: #### P TT, ETOH, MG, [id number], [id number], TSH3, PT, BMP, HEPATIC, CBC #### [facility] [address] Automated eosinophil countOr dered By: Bret Javier on 11-26-2023 Eosinophils (Bld) [#/Vol] 0.0 10*3/uL Normal 0.0-0.45 [facility] Comment on above: Performed By: #### P TT, ETOH, MG, [id number], [id number], TSH3, PT, BMP, HEPATIC, CBC #### [facility] [address] Automated monocyte %Ordered By: Bret Javier on 11-26-2023 Monocytes/100 WBC (Bld) 6.8 % Normal . [facility] Comment on above: Performed By: #### P TT, ETOH, MG, [id number], [id number], TSH3, PT, BMP, HEPATIC, CBC #### [facility] [address] Automated neutrophil %Ordere d By: Bret Javier on 11-26-2023 Neutrophils/100 WBC (Bld) 69.2 % Normal . [facility] Comment on above: Performed By: #### P TT, ETOH, MG, [id number], [id number], TSH3, PT, BMP, HEPATIC, CBC #### [facility] [address] Basic Metabolic Panelon 11-09 Creatinine Clr Calc Pharmacy 134.58 Normal [facility] Comment on above: Performed By: #### P TT, ETOH, MG, [id number], [id number], TSH3, PT, BMP, HEPATIC, CBC #### [facility] [address] GFR/1.73 sq M.predicted MDRD (S/P/Bld) [Vol rate/Area] mL/min/{1.73_m2} Normal [facility] Comment on above: Performed By: #### P TT, ETOH, MG, [id number], [id number], TSH3, PT, BMP, HEPATIC, CBC #### [facility] [address] Bilirubin.direct [Mass/volum e] in Serum or PlasmaOrdered By: Bret Javier on 11-26-2023 Bilirubin.direct [Mass/Vol] 0.10 mg/dL 0.03-0.18 [facility] Bilirubin.total [Mass/volume ] in Serum or PlasmaOrdered By: Bret Javier on 11-26-2023 Bilirubin [Mass/Vol] 0.8 mg/dL Normal 0.3-1.0 [facility] Comment on above: Performed By: #### P TT, ETOH, MG, [id number], [id number], TSH3, PT, BMP, HEPATIC, CBC #### [facility] [address] [place] [address] Calcium [Mass/volume] in Ser um or PlasmaOrdered By: Bret Javier on 11-26-2023 Calcium [Mass/Vol] 8.4 mg/dL Low 8.6-10.3 [facility] Comment on above: Performed By: #### P TT, ETOH, MG, [id number], [id number], TSH3, PT, BMP, HEPATIC, CBC #### [facility] [address] Carbon dioxide, total [Moles /volume] in Serum or PlasmaOrdered By: Bret Javier on 11-26-2023 CO2 [Moles/Vol] 25.7 mmol/L Normal 21.0-31.0 [facility] Comment on above: Performed By: #### P TT, ETOH, MG, [id number], [id number], TSH3, PT, BMP, HEPATIC, CBC #### [address] Chloride [Moles/volume] in S phil or PlasmaOrdered By: Bret Javier on 11-26-2023 Chloride [Moles/Vol] 105 mmol/L Normal 98-107 [facility] Comment on above: Performed By: #### P TT, ETOH, MG, [id number], [id number], TSH3, PT, BMP, HEPATIC, CBC #### [address] Complete Blood Count Auto Di ffon 11-26-2023 Mean Corpuscular HGB Conc 32.3 g/dL Normal 32.0-35.0 [facility] Comment on above: Performed By: #### P TT, ETOH, MG, [id number], [id number], TSH3, PT, BMP, HEPATIC, CBC #### [address] NRBC% 0.0 /100{WBC} Normal 0-0.5 [facility] Comment on above: Performed By: #### P TT, ETOH, MG, [id number], [id number], TSH3, PT, BMP, HEPATIC, CBC #### [address] Creatinine [Mass/volume] in Serum or PlasmaOrdered By: Bret Javier on 11-26-2023 Creatinine [Mass/Vol] 0.56 mg/dL Low 0.60-1.20 [facility] Comment on above: Performed By: #### P TT, ETOH, MG, [id number], [id number], TSH3, PT, BMP, HEPATIC, CBC #### [address] ECG 12 lead ECGon 11-26-2023 ECG 12 lead ECG [facility] [address] [place] [address] [place] [address] Electrocardiograph Report Signed Patient: Antoinette Recio MR#: [id number] : 1995 Acct:[id number] Age/Sex: 28 / F ADM Date: 11/26/23 Loc: Room: [address] [place] [address] Type: DIS INOo Attending Dr: Genevieve Yeager [...] QT has lengthened Confirmed by JIMI SIMEON [facility], ZOEY ([id number]) on 11/26/2023 4:10:30 PM Referred By: Electronically Signed By: ZOEY KRAUSE MD [facility] Transcribed By: MUS Signed By Zoey Krause MD[facility] 11/26/23 1610 Normal [facility] Erythrocyte distribution wid th [Ratio] by Automated countOrdered By: Bret Javier on 11-26-2023 Erythrocyte distribution width (RBC) [Ratio] 17.7 % High 11.9-15.3 [facility] Comment on above: Performed By: #### P TT, ETOH, MG, [id number], [id number], TSH3, PT, BMP, HEPATIC, CBC #### [facility] [address] [place] [id number] [place] Erythrocytes [#/volume] in B lood by Automated countOrdered By: Bret Javier on 11-26-2023 RBC (Bld) [#/Vol] 3.49 10*6/uL Low 3.60-5.00 [facility] Comment on above: Performed By: #### P TT, ETOH, MG, [id number], [id number], TSH3, PT, BMP, HEPATIC, CBC #### [facility] [address] Ethanol [Mass/volume] in Ser um or PlasmaOrdered By: Bret Javier on 11-26-2023 Ethanol [Mass/Vol] mg/dL Normal [facility] Comment on above: Performed By: #### P TT, ETOH, MG, [id number], [id number], TSH3, PT, BMP, HEPATIC, CBC #### [facility] [address] Ethanol [Mass/Vol] TNP [facility] Comment on above: Test not performed Ethyl Alcohol Profileon 11-09 Percent Ethanol Not performed Normal [facility] Comment on above: Result Comment: PERF ORMED BY: [place] [address] PATHOLOGIST ICE SKATING INSTRUCTOR KELLIE ALVARADO M.D. Performed By: #### P TT, ETOH, MG, [id number], [id number], TSH3, PT, BMP, HEPATIC, CBC #### [facility] [address] Folate [Mass/volume] in Seru m or PlasmaOrdered By: Bret Javier on 11-26-2023 Folate [Mass/Vol] 8.2 ng/mL >5.9 [facility] Comment on above: Folate reference ran ge: >5.9 ng/mlThe WHO technical consultation on folate and vitamin [id number] has determined that folate concentrations lessthan 4 ng/ml are considered deficient. Glucose [Mass/volume] in Ser um or PlasmaOrdered By: Bret Javier on 11-26-2023 Glucose [Mass/Vol] 75 mg/dL Normal 70-100 [facility] Comment on above: ADA recommended refe rence rangeRandom Glucose Reference Range is dependent on time and content of last meal. Glucose of more than 200 mg/dL in a nonstressed, ambulatory subject supports the diagnosis of Diabetes Mellitus. Result Comment: [facility] Glucose Reference Range is dependent on time and content of last meal. Glucose of more than 200 mg/dL in a nonstressed, ambulatory subject supports the diagnosis of Diabetes Mellitus. ADA recommended reference range Performed By: #### P TT, ETOH, MG, [id number], [id number], TSH3, PT, BMP, HEPATIC, CBC #### [address] Hematocrit [Volume Fraction] of Blood by Automated countOrdered By: Bret Javier on 11-26-2023 Hematocrit (Bld) [Volume fraction] 28.2 % Low 34.0-46.4 [facility] Comment on above: Performed By: #### P TT, ETOH, MG, [id number], [id number], TSH3, PT, BMP, HEPATIC, CBC #### [address] Hemoglobin [Mass/volume] in BloodOrdered By: Bret Javier on 11-26-2023 Hemoglobin (Bld) [Mass/Vol] 9.1 g/dL Low 11.8-15.4 [facility] Comment on above: Performed By: #### P TT, ETOH, MG, [id number], [id number], TSH3, PT, BMP, HEPATIC, CBC #### [address] Hepatic Panelon 11-26-2023 Albumin [Mass/Vol] 3.3 g/dL Low 3.5-5.7 [facility] Comment on above: Performed By: #### P TT, ETOH, MG, [id number], [id number], TSH3, PT, BMP, HEPATIC, CBC #### [address] Bilirubin,Indirect 0.7 mg/dL Normal [facility] Comment on above: Performed By: #### P TT, ETOH, MG, [id number], [id number], TSH3, PT, BMP, HEPATIC, CBC #### [address] [place] [address] [place] Bilirubin.indirect [Mass/Vol] 0.10 mg/dL Normal 0.03-0.18 [facility] Comment on above: Performed By: #### P TT, ETOH, MG, [id number], [id number], TSH3, PT, BMP, HEPATIC, CBC #### [facility] [address] [place] [id number] [facility] INR in Platelet poor plasma by Coagulation assayOrdered By: Bret Javier on 11-26-2023 INR Coag (PPP) [Relative time] 1.0 {INR} Normal [facility] Comment on above: INR Therapeutic Rang e [...] Performed By: #### P TT, ETOH, MG, [id number], [id number], TSH3, PT, BMP, HEPATIC, CBC #### [facility] [address] [place] [id number] [facility] Leukocytes [#/volume] correc christelle for nucleated erythrocytes in Blood by Automated counOrdered By: Bret Javier on 11-26-2023 WBC corrected for nucl RBC Auto (Bld) [#/Vol] 6.5 10*3/uL 3.8-11.6 [facility] Leukocytes [#/volume] in Blo od by Automated countOrdered By: Bret Javier on 11-26-2023 WBC (Bld) [#/Vol] 6.5 10*3/uL Normal 3.8-11.6 [facility] Comment on above: Performed By: #### P TT, ETOH, MG, [id number], [id number], TSH3, PT, BMP, HEPATIC, CBC #### [facility] [address] Lymphocytes [#/volume] in Bl ood by Automated countOrdered By: Bret Javier on 11-26-2023 Lymphocytes (Bld) [#/Vol] 1.4 10*3/uL Normal 1.00-4.8 [facility] Comment on above: Performed By: #### P TT, ETOH, MG, [id number], [id number], TSH3, PT, BMP, HEPATIC, CBC #### [facility] [address] Lymphocytes/100 leukocytes i n Blood by Automated countOrdered By: Bret Javier on 11-26-2023 Lymphocytes/100 WBC (Bld) 22.2 % Normal . [facility] Comment on above: Performed By: #### P TT, ETOH, MG, [id number], [id number], TSH3, PT, BMP, HEPATIC, CBC #### [facility] [address] MCH [Entitic mass] by Automa christelle countOrdered By: Bret Javier on 11-26-2023 MCH (RBC) [Entitic mass] 26.1 pg Normal 24.7-34.3 [facility] Comment on above: Performed By: #### P TT, ETOH, MG, [id number], [id number], TSH3, PT, BMP, HEPATIC, CBC #### [facility] [address] MCHC Auto (RBC) [Mass/Vol]Or dered By: Bret Javier on 11-26-2023 MCHC (RBC) [Mass/Vol] 32.3 g/dL 32.0-35.0 [facility] MCV [Entitic volume] by Auto mated countOrdered By: Bret Javier on 11-26-2023 MCV (RBC) [Entitic vol] 80.8 fL Normal 80-100 [facility] Comment on above: Performed By: #### P TT, ETOH, MG, [id number], [id number], TSH3, PT, BMP, HEPATIC, CBC #### [facility] [address] Magnesium [Mass/volume] in S phil or PlasmaOrdered By: Bret Javier on 11-26-2023 Magnesium [Mass/Vol] 1.8 mg/dL Low 1.9-2.7 [facility] Comment on above: Performed By: #### P TT, ETOH, MG, [id number], [id number], TSH3, PT, BMP, HEPATIC, CBC #### [facility] [address] Neutrophils [#/volume] in Bl ood by Automated countOrdered By: Bret Javier on 11-26-2023 Neutrophils (Bld) [#/Vol] 4.5 10*3/uL Normal 1.8-7.7 [facility] Comment on above: Performed By: #### P TT, ETOH, MG, [id number], [id number], TSH3, PT, BMP, HEPATIC, CBC #### [facility] [address] [place] [address] No Panel InformationOrdered By: Bret Javier on 11-26-2023 Estimated GFR (CKD-EPI) > 60.0 mL/Min [facility] Creatinine Clearance (Chem 134.58 [facility] Nucleated erythrocytes [Pres ence] in Blood by Automated countOrdered By: Bret Javier on 11-26-2023 Nucleated RBC Auto Ql (Bld) 0.0 /100{WBC} 0-0.5 [facility] Partial Thromboplastin Timeo n 11-26-2023 aPTT Coag (Bld) [Time] 28.6 s Normal 25.1-36.5 [facility] Comment on above: Result Comment: A he matocrit value greater than 55% may lead to inaccurate results in coagulation testing. Patients having hematocrit values >55% require a special collection tube for coagulation studies. Please contact the laboratory at [phone] for redraw instructions. PERFORMED BY: [place] [address] PATHOLOGIST ICE SKATING INSTRUCTOR KELLIE ALVARADO M.D. Performed By: #### P TT, ETOH, MG, [id number], [id number], TSH3, PT, BMP, HEPATIC, CBC #### [place] [address] [place] Platelet mean volume [Entiti c volume] in Blood by Automated countOrdered By: Bret Javier on 11-26-2023 Platelet mean volume (Bld) [Entitic vol] 6.6 fL Normal 6.3-10.7 [facility] Comment on above: Performed By: #### P TT, ETOH, MG, [id number], [id number], TSH3, PT, BMP, HEPATIC, CBC #### [place] [address] [place] Platelets [#/volume] in Bloo d by Automated countOrdered By: Bret Javier on 11-26-2023 Platelets (Bld) [#/Vol] 349 10*3/uL Normal 150-450 [facility] Comment on above: Performed By: #### P TT, ETOH, MG, [id number], [id number], TSH3, PT, BMP, HEPATIC, CBC #### [place] [address] [place] Potassium [Moles/volume] in Serum or PlasmaOrdered By: Bret Javier on 11-26-2023 Potassium [Moles/Vol] 3.7 mmol/L Normal 3.5-5.1 [facility] Comment on above: Performed By: #### P TT, ETOH, MG, [id number], [id number], TSH3, PT, BMP, HEPATIC, CBC #### [place] [address] [place] Protein [Mass/volume] in Ser um or PlasmaOrdered By: Bret Javier on 11-26-2023 Protein [Mass/Vol] 5.8 g/dL Low 6.4-8.9 [facility] Comment on above: Performed By: #### P TT, ETOH, MG, [id number], [id number], TSH3, PT, BMP, HEPATIC, CBC #### [facility] [address] Prothrombin time (PT)Ordered By: Bret Javier on 11-26-2023 PT Coag (PPP) [Time] 11.3 s Normal 9.0-12.9 [facility] Comment on above: A hematocrit value g reater than 55% may lead to inaccurate results in coagulation testing. Patients having hematocrit values >55% require a special collection tube for coagulation studies. Please contact the laboratory at [phone] for redraw instructions. Result Comment: A he matocrit value greater than 55% may lead to inaccurate results in coagulation testing. Patients having hematocrit values >55% require a special collection tube for coagulation studies. Please contact the laboratory at [phone] for redraw instructions. Performed By: #### P TT, ETOH, MG, [id number], [id number], TSH3, PT, BMP, HEPATIC, CBC #### [facility] [address] [place] [id number] [facility] Serum globulin measurement b y calculation (mass/volume)Ordered By: Bret Javier on 11-26-2023 Globulin (S) [Mass/Vol] 2.5 g/dL [facility] Comment on above: Performed By: #### P TT, ETOH, MG, [id number], [id number], TSH3, PT, BMP, HEPATIC, CBC #### [facility] [address] Serum or plasma albumin/glob ulin mass ratioOrdered By: Bret Javier on 11-26-2023 Albumin/Globulin [Mass ratio] 1.3 {ratio} [facility] Comment on above: Performed By: #### P TT, ETOH, MG, [id number], [id number], TSH3, PT, BMP, HEPATIC, CBC #### [facility] [address] Serum or plasma anion gap de terminationOrdered By: Bret Javier on 11-26-2023 Anion gap [Moles/Vol] 12.0 mmol/L Normal 6.0-15.0 [facility] Comment on above: Performed By: #### P TT, ETOH, MG, [id number], [id number], TSH3, PT, BMP, HEPATIC, CBC #### [facility] [address] Serum or plasma non-glucuron idated bilirubin measurement (mass/volume)Ordered By: Bret Javier on 11-26-2023 Bilirubin.indirect [Mass/Vol] 0.7 mg/dL [facility] Sodium [Moles/volume] in Ser um or PlasmaOrdered By: Bret Javier on 11-26-2023 Sodium [Moles/Vol] 139 mmol/L Normal 136-145 [facility] Comment on above: Performed By: #### P TT, ETOH, MG, [id number], [id number], TSH3, PT, BMP, HEPATIC, CBC #### [address] Thyrotropin [Units/volume] i n Serum or PlasmaOrdered By: Bret Javier on 11-26-2023 TSH Qn 1.77 m[IU]/L Normal 0.45-5.33 [facility] Comment on above: Performed By: #### P TT, ETOH, MG, [id number], [id number], TSH3, PT, BMP, HEPATIC, CBC #### [facility] [address] Urea nitrogen [Mass/volume] in Serum or PlasmaOrdered By: Bret Javier on 11-26-2023 Urea nitrogen [Mass/Vol] 8 mg/dL Normal 7-25 [facility] Comment on above: Performed By: #### P TT, ETOH, MG, [id number], [id number], TSH3, PT, BMP, HEPATIC, CBC #### [facility] [address] Vit. B12/Folate Profileon Folate 8.2 ng/mL Normal >5.9 [facility] Comment on above: Result Comment: Scarlett te reference range: >5.9 ng/ml The WHO technical consultation on folate and vitamin b12 deficiencies has determined that folate concentrations less than 4 ng/ml are considered deficient. Performed By: #### P TT, ETOH, MG, [id number], [id number], TSH3, PT, BMP, HEPATIC, CBC #### [address] Vitamin B12 ser/plasOrdered By: Bret Javier on 11-26-2023 Cobalamin (Vitamin B12) [Mass/Vol] 259 pg/mL Normal 180-914 [facility] Comment on above: Performed By: #### P TT, ETOH, MG, [id number], [id number], TSH3, PT, BMP, HEPATIC, CBC #### [address] Vitamin D 25 Hydroxy Totalon 11-26-2023 Vitamin D 25 Hydroxy Total 22.8 ng/mL Low 30-100 [facility] Comment on above: Result Comment: JESSICA MIN D STATUS 25(OH)VITAMIN D RANGE (ng/mL) Deficient <20 Insufficient 20 to <30 Sufficient 30 to 100 Reference: Sharmaine MF,Aye NC, Geremias SWEET, et al. Evaluation,treatment, and prevention of vitamin D deficiency; an Endocrine Society clinical practice guideline. JCEM. 2010; 96(7):1911-30. PERFORMED BY: [place] [address] PATHOLOGIST ICE SKATING INSTRUCTOR KELLIE ALVARADO M.D. Performed By: #### P TT, ETOH, MG, [id number], [id number], TSH3, PT, BMP, HEPATIC, CBC #### [address] Vitamin D+Metabolites [Mass/ volume] in Serum or PlasmaOrdered By: Bret Javier on 11-26-2023 Vitamin D+Metabolites [Mass/Vol] 22.8 ng/mL Low 30-100 [facility] Comment on above: VITAMIN D STATUS 25( [place])VITAMIN D RANGE (ng/mL) Deficient <20 Insufficient 20 to <30Sufficient 30 to 100Reference: Sharmaine MF,Aye MACKENZIE, Geremias SWEET, et al. Evaluation,treatment, and prevention of vitamin D deficiency; an Endocrine Society clinical practice guideline. JCEM. 2010; 96(7):1911-30. Telephone Encounteron 2023 [employer] System Operator Authentication Interface Message Text Visys [facility] [place] [facility] to [facility] Report given by : Dr. Sagastume Patient is a 28 year old White female with a history of pre-eclampsia, currently 2-weeks post- who initially presented to [place] [facility] on 11/25/23 for the complaint of [...] 421 Troponin negative Patient was accepted to [facility] regular nursing floor under the care of [...] Art DO 11/25/23 8:32 PM Normal [facility] WITH AUTO DIFFon BASOPHILS ABSOLUTE AUTO 0.0 [facility] Basophils/100 WBC (Bld) 0.1 % Low 0.2 - 2.0 % [facility] Eosinophils/100 WBC (Bld) 0.4 % Low 0.9 - 7.0 % [facility] Erythrocyte distribution width (RBC) [Ratio] 15.6 % High 11.0 - 15.0 % [facility] Hematoc[facility] (Bld) [Volume fraction] 23.0 % Critically low 36.0 - 48.0 % [facility] Comment on above: RESULTS CALLED TO GRIFFIN CASTELLON RN Hemoglobin (Bld) [Mass/Vol] 7.0 g/dL Low 12.0 - 16.0 g/dL [facility] IMMATURE GRANULOCYTES ABS AUTO 0.11 High [facility] Immature granulocytes/100 WBC (Bld) 0.8 % High 0.0 - 0.5 % [facility] Interpretation and review of laboratory results Abnormal [facility] LYMPHOCYTES ABSOLUTE AUTO 1.4 [facility] Lymphocytes/100 WBC (Bld) 10.2 % Low 20.5 - 60.0 % [facility] MCH (RBC) [Entitic mass] 26.0 pg Low 26.7 - 34.0 pg [facility] MCHC (RBC) [Mass/Vol] 30.4 g/dL 29.9 - 35.2 g/dL [facility] MCV (RBC) [Entitic vol] 85.5 fL 81.0 - 99.0 fL [facility] MONOCYTES ABSOLUTE AUTO 0.7 [facility] Monocytes/100 WBC (Bld) 5.4 % 1.7 - 12.0 % [facility] NEUTROPHILS ABSOLUTE AUTO 11.1 High [facility] Neutrophils/100 WBC (Bld) 83.1 % High 43.0 - 75.0 % [facility] Platelet mean volume (Bld) [Entitic vol] 9.3 fL Low 9.5 - 13.5 fL [facility] TBH EO # 0.1 [facility] TBH PLT 217 [facility] TB RBC 2.69 Low [facility] TBH WBC 13.4 High [facility] ALL BUNon 11-10-2023 Urea nitrogen [Mass/Vol] 9.0 mg/dL 7.0 - 18.0 mg/dL [facility] ALL URIC ACIDon 11-10-2023 Interpretation and review of laboratory results Abnormal [facility] Urate [Mass/Vol] 6.1 mg/dL High 2.6 - 6.0 mg/dL [facility] Vidya 11-10-2023 ALT [Catalytic activity/Vol] 15 U/L 14 - 59 U/L [facility] Julee 11-10-2023 AST [Catalytic activity/Vol] 23 U/L 15 - 37 U/L [facility] Shaji 11-10-2023 L Specimen: [id number] Received: 11/11/23 Status: SAMI Sears Num: [id number] Spec Type: Surgical Subm Dr: Eligio Mathew Tissues: A Placenta - 3rd Trimester (Greater than 28 weeks) (PLACENTA) Procedures: HE/3, Gross/Micro L5 Age/ Patient Sex Location Account Attending Physician Antoinette Recio 28/F LABELL [id number] Eligio Mathew SPEC NUM: [id number] RECD: 11/11/23 STATUS: SAMI SEARS NUM: [id number] RAVI: 11/10/23- SUBM DR: Eligio Mathew ENTERED: 11/11/[address] [facility] DR: Jose,Lab SPEC TYPE: Surgical DEPT: MATRINE RAMIREZ ENTERED BY: [id number] RECV BY: [id number] ORDERED: HE/3, Gross/Micro L5 ORDERED: HE/3, Gross/Micro [...] at the margin. The maternal surface is pink-hsu, spongy and complete. Digital Sales Manager sections are as follows: A1 membranes and umbilical cord A2 central section A3 peripheral section Specimen: [id number] Received: 11/11/23 Status: SAMI Sears Num: [id number] Spec Type: Surgical Subm Dr: Eligio Mathew Tissues: A Placenta - 3rd Trimester (Greater than 28 weeks) (PLACENTA) Procedures: HE/3, Gross/Micro L5 Patient: Antoinette Recio [id number] (Continued) Specimen: [id number] Received: 11/11/23 (Continued) Signed (signature on file) Tab Valerio MD 11/16/23 1534 Specimen: [id number] Received: 11/11/23 Status: SAMI Kamille Num: [id number] Spec Type: Surgical Subm Dr: Eligio Mathew Tissues: A Placenta - 3rd Trimester (Greater than 28 weeks) (PLACENTA) Procedures: , Gross/Micro L5 Patient: RecioAntoinette dominguez [id number] (Continued) Specimen: [id number] Received: 11/11/23 (Continued) CPT Codes 96458 Specimen: [id number] Received: 11/11/23 Status: SAMI [place] Num: [id number] Spec Type: Surgical Subm Dr: Eligio Mathew Tissues: A Placenta - 3rd Trimester (Greater than 28 weeks) (PLACENTA) Procedures: HE/3, Gross/Micro L5 Patient: Antoinette Recio [id number] (Continued) Signed (signature on file) Tab Valerio MD 11/16/23 1534 Normal [facility] No Panel Informationon 11-09 [facility] CREATININEon 11-10-2023 Creatinine [Mass/Vol] 0.75 mg/dL 0.55 - 1.02 mg/dL [facility] GFR/1.73 sq M.predicted CKD-EPI (S/P/Bld) [Vol rate/Area] >60 >=60 mL/min/1.73m 2 [facility] EGFR-NON AF [place] >60 >=60 mL/min/1.73m 2 [facility] ALL CBC WITH AUTO DIFFon BASOPHILS ABSOLUTE AUTO 0.1 [facility] Basophils/100 WBC (Bld) 0.8 % 0.2 - 2.0 % [facility] Eosinophils/100 WBC (Bld) 1.0 % 0.9 - 7.0 % [facility] Erythrocyte distribution width (RBC) [Ratio] 14.7 % 11.0 - 15.0 % [facility] Hematocrit (Bld) [Volume fraction] 31.9 % Low 36.0 - 48.0 % [facility] Hemoglobin (Bld) [Mass/Vol] 10.0 g/dL Low 12.0 - 16.0 g/dL [facility] IMMATURE GRANULOCYTES ABS AUTO 0.08 High [facility] Immature granulocytes/100 WBC (Bld) 0.9 % High 0.0 - 0.5 % [facility] Interpretation and review of laboratory results Abnormal [facility] LYMPHOCYTES ABSOLUTE AUTO 1.6 [facility] Lymphocytes/100 WBC (Bld) 17.5 % Low 20.5 - 60.0 % [facility] MCH (RBC) [Entitic mass] 25.8 pg Low 26.7 - 34.0 pg [facility] MCHC (RBC) [Mass/Vol] 31.3 g/dL 29.9 - 35.2 g/dL [facility] MCV (RBC) [Entitic vol] 82.2 fL 81.0 - 99.0 fL [facility] MONOCYTES ABSOLUTE AUTO 0.5 [facility] Monocytes/100 WBC (Bld) 5.9 % 1.7 - 12.0 % [facility] NEUTROPHILS ABSOLUTE AUTO 6.8 High [facility] Neutrophils/100 WBC (Bld) 73.9 % 43.0 - 75.0 % [facility] Platelet mean volume (Bld) [Entitic vol] 9.0 fL Low 9.5 - 13.5 fL [facility] TBH EO # 0.1 [facility] TBH PLT 325 [facility] TB RBC 3.88 Low [facility] TB WBC 9.1 [facility] Urinalysis macro (dipstick) panel (U)on 11-04-2023 Bilirubin, UA Negative Negative - 4(70) +++ mg/dL [facility] Blood, UA Negative Negative - 50 Manan/mcL [facility] Clarity, UA Clear [facility] Color, UA Yellow [facility] Glucose, UA Negative Negative - 1999(110) ++++ mg/dL [facility] Interpretation and review of laboratory results Abnormal [facility] Ketones, UA Positive Negative - 160(16) ++++ mg/dL [facility] Comment on above: trace Leukocytes, UA Trace Negative - 500+++ Shu/mcL [facility] Nitrite, UA Negative Negative - Positive [facility] pH, UA 6.5 5 - 9 [facility] Protein, UA Trace Negative - 1999(20) ++++ mg/dL [facility] Spec Grav, UA 1.025 1 - 1.03 [facility] Urobilinogen, UA 0.2 0.2 - 12 mg/dL Count includes the [facility] TBH UA (CLEAN/CATCH) ELECTRO PLATER/GLENDA RO IF IND.on 10-18-2023 BILIRUBIN URINE Negative NEGATIVE [facility] BLOOD URINE Negative NEGATIVE [facility] Clarity (U) CLEAR CLEAR [facility] Color (U) LT. YELLOW YELLOW [facility] GLUCOSE URINE UA Negative NEGATIVE mg/dL [facility] Ketones Ql (U) Negative NEGATIVE mg/dL [facility] Leukocyte esterase Test strip Ql (U) Negative NEGATIVE [facility] NITRITE URINE Negative NEGATIVE [facility] pH (U) 6.0 [pH] 5.0 - 9.0 [facility] PROTEIN URINE Negative NEG/TRACE mg/dL [facility] SPECIFIC GRAVITY URINE 1.010 1.005 - 1.025 [facility] URINE MICROSCOPIC INDICATED NO [facility] UROBILINOGEN URINE 0.2 EU/dL 0.2 - 1.0 EU/dL [facility] CBC AND AUTO DIFFon 06-16-19 24 ABSOLUTE BASOPHIL 0.1 X10E9/L Normal 0.0-0.2 [facility] Comment on above: Performed By: #### 2 106-3 #### [facility] ([id number]) [address] [place] [address], [place] [address] ABSOLUTE NEUTROPHIL 11.8 X10E9/L High 1.5-6.6 [facility] Comment on above: Performed By: #### 2 106-3 #### [facility] ([id number]) [address] [place] [address] 53783 Basophils/100 WBC (Bld) 0.4 % Normal [facility] Comment on above: Performed By: #### 2 106-3 #### [facility] ([id number]) [address] [place] [address] 57607 Eosinophils (Bld) [#/Vol] 0.1 10*3/uL Normal 0.0-0.4 [facility] Comment on above: Performed By: #### 2 106-3 #### [facility] ([id number]) [address] [place] [address] 64199 Eosinophils/100 WBC (Bld) 0.4 % Normal [facility] Comment on above: Performed By: #### 2 106-3 #### [facility] ([id number]) [address] [place] [address] 58999 Erythrocyte distribution width (RBC) [Ratio] 15.3 % High 11.5-15.0 [facility] Comment on above: Performed By: #### 2 106-3 #### [facility] ([id number]) [address] [place] [address] 79448 Hematocrit (Bld) [Volume fraction] 35.3 % Normal 35-47 [facility] Comment on above: Performed By: #### 2 106-3 #### [facility] ([id number]) [address] [place] [address] 10927 Hemoglobin (Bld) [Mass/Vol] 12.0 g/dL Normal 11.7-15.5 [facility] Comment on above: Performed By: #### 2 106-3 #### [facility] ([id number]) [address] [place] [address] 81568 Lymphocytes (Bld) [#/Vol] 1.4 10*3/uL Normal 1.0-3.5 [facility] Comment on above: Performed By: #### 2 106-3 #### [facility] ([id number]) [address] [place] [address] 04225 Lymphocytes/100 WBC (Bld) 10.3 % Normal [facility] Comment on above: Performed By: #### 2 106-3 #### [facility] ([id number]) [address] [place] [address] 91988 MCH (RBC) [Entitic mass] 28.1 pg Normal 27-34 [facility] Comment on above: Performed By: #### 2 106-3 #### [facility] ([id number]) [address] [place] [address] 40532 MCHC (RBC) [Mass/Vol] 33.9 g/dL Normal 32-36 [facility] Comment on above: Performed By: #### 2 106-3 #### [facility] ([id number]) [address] [place] [address] 10889 MCV (RBC) [Entitic vol] 83 fL Normal 80-100 [facility] Comment on above: Performed By: #### 2 106-3 #### [facility] ([id number]) [address] [place] [address] 17610 Monocytes (Bld) [#/Vol] 0.5 10*3/uL Normal 0-0.9 [facility] Comment on above: Performed By: #### 2 106-3 #### [facility] ([id number]) [address] [place] [address] 01183 Monocytes/100 WBC (Bld) 3.6 % Normal [facility] Comment on above: Performed By: #### 2 106-3 #### [facility] ([id number]) [address] [place] [address] 53794 Neutrophils/100 WBC (Bld) 85.3 % Normal [facility] Comment on above: Performed By: #### 2 106-3 #### [facility] ([id number]) [address] [place] [address] 45220 Platelet mean volume (Bld) [Entitic vol] 8.2 fL Normal 7-12 [facility] Comment on above: Performed By: #### 2 106-3 #### [facility] ([id number]) [address] [place] [address] 94019 Platelets (Bld) [#/Vol] 434 10*3/uL Normal 150-450 [facility] Comment on above: Performed By: #### 2 106-3 #### [facility] ([id number]) [address] [place] [address] 11266 RBC COUNT 4.27 X10E12/L Normal 3.80-5.20 [facility] Comment on above: Performed By: #### 2 106-3 #### [facility] ([id number]) [address] [place] [address] 44311 WBC (Bld) [#/Vol] 13.8 10*3/uL High 4.0-11.0 [facility] Comment on above: Performed By: #### 2 106-3 #### [facility] ([id number]) [address] [place] [address] 64835 COMPREHENSIVE METABOLIC PANE Shaji 06-16-2023 Albumin [Mass/Vol] 3.9 g/dL Normal 3.2-5.3 [facility] Comment on above: Performed By: #### 2 106-3 #### [facility] ([id number]) [address] [place] [address] 37874 ALP [Catalytic activity/Vol] 46 U/L Normal 39-130 [facility] Comment on above: Performed By: #### 2 106-3 #### [facility] ([id number]) [address] [place] [address] ALT [Catalytic activity/Vol] 12 U/L Normal 0-31 [facility] Comment on above: Performed By: #### 2 106-3 #### [facility] ([id number]) [address] [place] [address] 32818 Anion gap [Moles/Vol] 12 mmol/L Normal 5-15 [facility] Comment on above: Performed By: #### 2 106-3 #### [facility] ([id number]) [address] [place] [address] 92570 AST [Catalytic activity/Vol] 15 U/L Normal 0-41 [facility] Comment on above: Performed By: #### 2 106-3 #### [facility] ([id number]) [address] [place] [address] 85614 Bilirubin [Mass/Vol] 0.3 mg/dL Normal 0.3-1.2 [facility] Comment on above: Performed By: #### 2 106-3 #### [facility] ([id number]) [address] [place] [address] 90547 Calcium [Mass/Vol] 9.0 mg/dL Normal 8.5-10.5 [facility] Comment on above: Performed By: #### 2 106-3 #### [facility] ([id number]) [address] [place] [address] 82492 Chloride [Moles/Vol] 105 mmol/L Normal 98-109 [facility] Comment on above: Performed By: #### 2 106-3 #### [facility] ([id number]) [address] [place] [address] 23843 CO2 [Moles/Vol] 19 mmol/L Low 22-32 [facility] Comment on above: Performed By: #### 2 106-3 #### [facility] ([id number]) [address] [place] [address] [place] [address] Creatinine [Mass/Vol] 0.58 mg/dL Normal 0.40-1.00 [facility] Comment on above: Result Comment: METH OD TRACEABLE TO IDMS STANDARD Performed By: #### 2 106-3 #### [facility] ([id number]) [address] [place] [address] 67692 eGFR (CKD-EPI) NON-RACE DEPENDENT >90 Normal >59 [facility] Comment on above: Result Comment: Reported eGFR is based on the CKD-EPI 2020 equation that does not use a race coefficient. Performed By: #### 2 106-3 #### [facility] ([id number]) [address] [place] [address] 82350 Glucose [Mass/Vol] 87 mg/dL Normal 65-99 [facility] Comment on above: Performed By: #### 2 106-3 #### [facility] ([id number]) [address] [place] [address] 04571 Potassium [Moles/Vol] 3.6 mmol/L Normal 3.5-5.0 [facility] Comment on above: Performed By: #### 2 106-3 #### [facility] ([id number]) [address] [place] [address] 97186 Protein [Mass/Vol] 7.5 g/dL Normal 6.0-8.0 [facility] Comment on above: Performed By: #### 2 106-3 #### [facility] ([id number]) [address] [place] [address] 51039 Sodium [Moles/Vol] 136 mmol/L Normal 134-146 [facility] Comment on above: Performed By: #### 2 106-3 #### [facility] ([id number]) [address] [place] [address] 33235 Urea nitrogen [Mass/Vol] 7 mg/dL Normal 5-23 [facility] Comment on above: Performed By: #### 2 106-3 #### [facility] ([id number]) [address] [facility], [place] [address] MAGNESIUMon 06-16-2023 Magnesium [Mass/Vol] 1.7 mg/dL Low 1.8-2.6 [facility] Comment on above: Performed By: #### 2 106-3 #### [facility] ([id number]) [address] [facility], [place] [address] SARS/FLU A+B/RSV by NAAT/Mol ecularon 06-16-2023 SARS/FLU [...] operators who are performing tests using either GeneX8Trip DX or GeneOrsus Solutionspert Infinity systems and is limited to laboratories that [...] specimen repeat. Fact Sheet for Healthcare Providers: https://www.fda.gov/media /502517/download Fact Sheet for Patients: https://www.fda.gov/media /743163/download Normal [facility] Comment on above: Performed By: #### 2 106-3 #### [facility] ([id number]) [address] [place] [address] 21486 URINALYSISon 06-16-2023 Bilirubin Ql (U) Negative Normal NEG [facility] Comment on above: Performed By: #### 2 106-3 #### [facility] ([id number]) [address] [place] [address] 99621 BLOOD/HGB Negative Normal NEG [facility] Comment on above: Performed By: #### 2 106-3 #### [facility] ([id number]) [address] [place] [address] 56841 Color (U) YELLOW Normal YELLOW [facility] Comment on above: Performed By: #### 2 106-3 #### [facility] ([id number]) [address] [place] [address] 42887 Glucose Ql (U) Negative Normal NEG [facility] Comment on above: Performed By: #### 2 106-3 #### [facility] ([id number]) [address] [place] [address] 74772 Ketones Ql (U) Negative Normal NEG [facility] Comment on above: Performed By: #### 2 106-3 #### [facility] ([id number]) [address] [place] [address] 68848 Leukocyte esterase Test strip Ql (U) Negative Normal NEG [facility] Comment on above: Performed By: #### 2 106-3 #### [facility] ([id number]) [address] [place] [address] 08581 MUCOUS PRESENT Abnormal NONE [facility] Comment on above: Performed By: #### 2 106-3 #### [facility] ([id number]) [address] [place] [address] 01068 Nitrite Ql (U) Negative Normal NEG [facility] Comment on above: Performed By: #### 2 106-3 #### [facility] ([id number]) [address] [place] [address] 29738 pH (U) 6.5 [pH] Normal 5.0-8.5 [facility] Comment on above: Performed By: #### 2 106-3 #### [facility] ([id number]) [address] [place] [address] 33902 Protein Ql (U) Trace Abnormal NEG [facility] Comment on above: Performed By: #### 2 106-3 #### [facility] ([id number]) [address] [place] [address] 80395 R.B.CELLS 0 /hpf Normal 0-5 [facility] Comment on above: Performed By: #### 2 106-3 #### [facility] ([id number]) [address] [place] [address] [place] [address] Specific gravity (U) [Rel density] 1.025 Normal 1.003-1.035 [facility] Comment on above: Performed By: #### 2 106-3 #### [facility] ([id number]) [address] [place] [address] 49950 SQUAMOUS EPITHELIUM 2 /hpf Normal 0-5 [facility] Comment on above: Performed By: #### 2 106-3 #### [facility] ([id number]) [address] [place] [address] 76692 TURBIDITY CLEAR Normal CLEAR [facility] Comment on above: Performed By: #### 2 106-3 #### [facility] ([id number]) [address] [place] [address] 94701 Urobilinogen Qn (U) 1.0 {Jazmine'U}/dL Normal <1.1 [facility] Comment on above: Performed By: #### 2 106-3 #### [facility] ([id number]) [address] [place] [address] 59993 W.B.CELLS 0 /hpf Normal 0-5 [facility] Comment on above: Performed By: #### 2 106-3 #### [facility] ([id number]) [address] [place] [address] 76867 CHLAMYDIA/GC PCR, FLon 05-04 CHLAMYDIA/GC PCR, FL [...] dependent on adequate specimen collection. Normal [facility] Comment on above: Performed By: #### 2 106-3 #### [facility] ([id number]) [address] [place] [address] 00381 Cytologyon 05-05-2023 Cytology Normal [facility] Comment on above: Result Comment: [facility] [address] [place] [address] Gynecologic Cytology Consultation Patient Name:ANTOINETTE RECIO:1995 (Age: 28)Gender:FTaken:4Reported:05/21/2023hysician(s):Nieves Velasquez M.D. ([phone])Copy To: Rec. #:[id number]: #[id number] Final Cytologic Interpretation ThinPrep Pap Test (Cervical): Satisfactory for evaluation. A transformation zone component is present. NEGATIVE FOR INTRAEPITHELIAL LESION OR MALIGNANCY. Numerous neutrophilic leukocytes are present. j/05/21/2023 Interpretation performed at [facility], [address] [place] [address], License number: [id number]. 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 Ddhgov-ca-jqrlui ratio is <0.80. Performed By: #### N UM #### [facility] ([id number]) [address] [place] [address] 60691 HEPATITIS A IGM Non-Reactive Normal NRCT [facility] Comment on above: Performed By: #### N UM #### [facility] ([id number]) [address] [place] [address], [place] [address] HEPATITIS B CORE IGM Negative Normal NEG [facility] Comment on above: Performed By: #### N UM #### [facility] ([id number]) [address] [place] [address] 12163 HEPATITIS B SURF AG Negative Normal NEG [facility] Comment on above: Performed By: #### N UM #### [facility] ([id number]) [address] [place] [address], [place] [address] COMPLETE BLOOD COUNTon 04-15 Erythrocyte distribution width (RBC) [Ratio] 18.6 % High 11.5-15.0 [facility] Comment on above: Performed By: #### C BC, CMP, 2532-0, 3084-1, AHP, 17907-5, 00673-8, 01184-9, 27773-8 #### [facility] ([id number]) [address], [address] [place] [address] Hematocrit (Bld) [Volume fraction] 34.6 % Low 35-47 [facility] Comment on above: Performed By: #### C BC, CMP, 2532-0, 3084-1, AHP, 02584-7, 22797-3, 53298-7, 29003-1 #### [facility] ([id number]) [address], [address] [place] [address] Hemoglobin (Bld) [Mass/Vol] 11.4 g/dL Low 11.7-15.5 [facility] Comment on above: Performed By: #### C BC, CMP, 2532-0, 3084-1, AHP, 73378-1, 80051-9, 89330-5, 19541-5 #### [facility] ([id number]) [address], [address] [place] [address] MCH (RBC) [Entitic mass] 26.7 pg Low 27-34 [facility] Comment on above: Performed By: #### C BC, CMP, 2532-0, 3084-1, AHP, 48618-7, 23520-3, 11526-6, 43891-2 #### [facility] ([id number]) [address], [address] [place] [address] MCHC (RBC) [Mass/Vol] 32.8 g/dL Normal 32-36 [facility] Comment on above: Performed By: #### C BC, CMP, 2532-0, 3084-1, AHP, 91554-5, 06921-7, 75705-6, 72683-1 #### [facility] ([id number]) [address], [address] [place] [address] MCV (RBC) [Entitic vol] 81 fL Normal 80-100 [facility] Comment on above: Performed By: #### C BC, CMP, 2532-0, 3084-1, AHP, 19336-4, 36387-4, 01614-3, 89524-1 #### [facility] ([id number]) [address], [address] [place] [address] Platelet mean volume (Bld) [Entitic vol] 8.5 fL Normal 7-12 [facility] Comment on above: Performed By: #### C BC, CMP, 2532-0, 3084-1, AHP, 66539-2, 61961-2, 07465-8, 03456-2 #### [facility] ([id number]) [address], [address] [place] [address] Platelets (Bld) [#/Vol] 351 10*3/uL Normal 150-450 [facility] Comment on above: Performed By: #### C BC, CMP, 2532-0, 3084-1, AHP, 88286-7, 02038-1, 03639-2, 40314-3 #### [facility] ([id number]) [address], [address] [place] [address] RBC COUNT 4.26 X10E12/L Normal 3.80-5.20 [facility] Comment on above: Performed By: #### C BC, CMP, 2532-0, 3084-1, AHP, 21072-3, 76038-2, 05478-4, 52739-8 #### [facility] ([id number]) [address], [address] [place] [address] WBC (Bld) [#/Vol] 8.9 10*3/uL Normal 4.0-11.0 [facility] Comment on above: Performed By: #### C BC, CMP, 2532-0, 3084-1, AHP, 66097-3, 05851-0, 36620-2, 51062-1 #### [facility] ([id number]) [address], [address] [place] [address] COMPREHENSIVE METABOLIC PANE Shaji 04-16-2023 Albumin [Mass/Vol] 4.4 g/dL Normal 3.2-5.3 [facility] Comment on above: Performed By: #### C BC, CMP, 2532-0, 3084-1, AHP, 34892-2, 34586-6, 87302-1, 70626-2 #### [facility] ([id number]) [address], [address] [place] [address] ALP [Catalytic activity/Vol] 42 U/L Normal 39-130 [facility] Comment on above: Performed By: #### C BC, CMP, 2532-0, 3084-1, AHP, 44141-1, 62846-8, 04955-0, 96618-0 #### [facility] ([id number]) [address], [address] [place] [address] ALT [Catalytic activity/Vol] 12 U/L Normal 0-31 [facility] Comment on above: Performed By: #### C BC, CMP, 2532-0, 3084-1, AHP, 00845-1, 28649-7, 74489-9, 98995-0 #### [facility] ([id number]) [address], [address] [place] [address] Anion gap [Moles/Vol] 9 mmol/L Normal 5-15 [facility] Comment on above: Performed By: #### C BC, CMP, 2532-0, 3084-1, AHP, 81989-5, 44723-4, 91963-0, 61484-2 #### [facility] ([id number]) [address], [address] [place] [address] AST [Catalytic activity/Vol] 13 U/L Normal 0-41 [facility] Comment on above: Performed By: #### C BC, CMP, 2532-0, 3084-1, AHP, 53857-1, 21244-6, 25253-6, 55498-6 #### [facility] ([id number]) [address], [address] [place] [address] Bilirubin [Mass/Vol] 0.7 mg/dL Normal 0.3-1.2 [facility] Comment on above: Performed By: #### C BC, CMP, 2532-0, 3084-1, AHP, 82948-6, 35680-4, 13914-2, 38507-8 #### [facility] ([id number]) [address], [address] [place] [address] Calcium [Mass/Vol] 9.4 mg/dL Normal 8.5-10.5 [facility] Comment on above: Performed By: #### C BC, CMP, 2532-0, 3084-1, AHP, 01991-5, 16013-1, 33558-3, 68556-6 #### [facility] ([id number]) [address], [address] [place] [address] Chloride [Moles/Vol] 103 mmol/L Normal 98-109 [facility] Comment on above: Performed By: #### C BC, CMP, 2532-0, 3084-1, AHP, 64750-8, 75826-0, 41091-6, 81333-1 #### [facility] ([id number]) [address], [address] [place] [address] CO2 [Moles/Vol] 24 mmol/L Normal 22-32 [facility] Comment on above: Performed By: #### C BC, CMP, 2532-0, 3084-1, AHP, 18122-8, 93963-3, 70473-0, 08508-8 #### [facility] ([id number]) [address], [address] [place] [address] Creatinine [Mass/Vol] 0.63 mg/dL Normal 0.40-1.00 [facility] Comment on above: Result Comment: METH OD TRACEABLE TO IDMS STANDARD Performed By: #### C BC, CMP, 2532-0, 3084-1, AHP, 11954-3, 68083-2, 90460-3, 58982-4 #### [facility] ([id number]) [address], [address] [place] [address] eGFR (CKD-EPI) NON-RACE DEPENDENT >90 Normal >59 [facility] Comment on above: Result Comment: Reported eGFR is based on the CKD-EPI 2020 equation that does not use a race coefficient. Performed By: #### C BC, CMP, 2532-0, 3084-1, AHP, 38445-9, 80459-8, 22476-8, 92007-3 #### [facility] ([id number]) [address], [address] [place] [address] Glucose [Mass/Vol] 84 mg/dL Normal 65-99 [facility] Comment on above: Performed By: #### C BC, CMP, 2532-0, 3084-1, AHP, 46086-2, 64788-1, 41633-6, 43586-5 #### [facility] ([id number]) [address], [address] [place] [address] Potassium [Moles/Vol] 3.4 mmol/L Low 3.5-5.0 [facility] Comment on above: Performed By: #### C BC, CMP, 2532-0, 3084-1, AHP, 78476-3, 88749-6, 90171-3, 31258-4 #### [facility] ([id number]) [address], [address] [place] [address] Protein [Mass/Vol] 6.9 g/dL Normal 6.0-8.0 [facility] Comment on above: Performed By: #### C BC, CMP, 2532-0, 3084-1, AHP, 26235-5, 06336-6, 43663-3, 05193-7 #### [facility] ([id number]) [address], [address] [place] [address] Sodium [Moles/Vol] 136 mmol/L Normal 134-146 [facility] Comment on above: Performed By: #### C BC, CMP, 2532-0, 3084-1, AHP, 70575-2, 04760-2, 32837-6, 94322-4 #### [facility] ([id number]) [address], [address] [place] [address] Urea nitrogen [Mass/Vol] 11 mg/dL Normal 5-23 [facility] Comment on above: Performed By: #### C BC, CMP, 2532-0, 3084-1, AHP, 87774-1, 04287-1, 17406-6, 58740-0 #### [facility] ([id number]) [address], [address] [place] [address] DRUG SCREEN, URINEon 024 AMPHETAMINE/METHAMP Negative Normal NEG [facility] Comment on above: Result Comment: AMPH /METH screening cut off = 1000 ng/mL Performed By: #### N UM #### [facility] ([id number]) [address] [place] [address], [place] [address] BARBITURATES Negative Normal NEG [facility] Comment on above: Result Comment: Carmella iturates screening cut off value = 200 ng/mL Performed By: #### N UM #### [facility] ([id number]) [address] [place] [address] BENZODIAZEPINES Negative Normal NEG [facility] Comment on above: Result Comment: German odiazepines screening cut off value = 200 ng/mL Performed By: #### N UM #### [facility] ([id number]) [address] [place] [address] CANNABINOIDS Positive Abnormal NEG [facility] Comment on above: Result Comment: Conf irmation available upon request. Cannabinoids/THC screening cut off value = 50 ng/mL Performed By: #### N UM #### [facility] ([id number]) [address] [place] [address] COCAINE METABOLITE Negative Normal NEG [facility] Comment on above: Result Comment: Coca ine screening cut off value = 300 ng/mL Performed By: #### N UM #### [facility] ([id number]) [address] [place] [address] 40526 ECSTASY Negative Normal NEG [facility] Comment on above: Result Comment: Ecst asy screening cut off value = 500 ng/mL This report is intended for use in clinical monitoring or management of patients. Performed By: #### N UM #### [facility] ([id number]) [address] [place] [address] 04922 METHADONE Negative Normal NEG [facility] Comment on above: Result Comment: Meth adone screening cut off value = 300 ng/mL. Performed By: #### N UM #### [facility] ([id number]) [address] [place] [address] 33516 OPIATES Negative Normal NEG [facility] Comment on above: Result Comment: Opia markie screening cut off value = 300 ng/mL NOTE: This test is used for the detection of codeine, hydrocodone (>1000 ng/mL), morphine and hydromorphone (>900 ng/mL) in urine. Performed By: #### N UM #### [facility] ([id number]) [address] [place] [address] 44498 OXYCODONE Negative Normal NEG [facility] Comment on above: Result Comment: Oxyc odone screening cut off value = 300 ng/mL NOTE: This test is used for the detection of oxycodone and oxymorphone in urine. Performed By: #### N UM #### [facility] ([id number]) [address] [place] [address] 88139 PHENCYCLIDINE Negative Normal NEG [facility] Comment on above: Result Comment: Phen cyclidine screening cut off value = 25 ng/mL Performed By: #### N UM #### [facility] ([id number]) [address] [place] [address] 36643 HIV 1+2 Ab+HIV1 p24 Ag IA Ql on 04-16-2023 HIV 1 and 2 Ab/Ag Screen Non-Reactive Normal NRCT [facility] Comment on above: Result Comment: [...] diagnoses. Performed By: #### N UM #### [facility] ([id number]) [address] [place] [address] 92721 LDH [Catalytic activity/Vol] on 04-16-2023 LDH 156 U/L Normal 100-235 [facility] Comment on above: Performed By: #### N UM #### [facility] ([id number]) [address] [place] [address] 76855 PROTEIN CREAT RATIOon 2023 RANDOM URINE PROTEIN 180 mg/L High <120 [facility] Comment on above: Performed By: #### N UM #### [facility] ([id number]) [address] [place] [address] 49820 U/PRO/FICTION AND NONFICTION WRITER PROSE RATIO CALC 0.07 Normal <0.2 [facility] Comment on above: Result Comment: Neph rotic Syndrome is associated with ratios >3.5 Performed By: #### N UM #### [facility] ([id number]) [address] [place] [address] 39227 URINE CREATININE,RDM 273.50 mg/dL Normal Pr [facility] Comment on above: Performed By: #### N UM #### [facility] ([id number]) [address] [place] [address] 44241 Rubella virus Ab Ql (S)on RUBELLA IMMUNE IgG 3.[address] [facility] Comment on above: Result Comment: Interpretation-------- <0.8 NEGATIVE-considered Not Immune 0.8-0.9 EQUIVOCAL-consider retesting with new specimen >0.9 POSITIVE-considered Immune Performed By: #### N UM #### [facility] ([id number]) [address] [place] [address] 33904 T. pallidum IgG+IgM IA Ql (S )on 04-16-2023 Syphilis Total <0.2 Normal 0.0-0.8 [facility] Comment on above: Result Comment: NON REACTIVE No serologic evidence of infection to Treponema pallidum (syphilis). Repeat testing may be considered in patients with suspected acute or primary syphilis in 2 to 4 weeks. Performed By: #### N UM #### [facility] ([id number]) [address] [place] [address] 52243 URIC ACIDon 04-16-2023 Urate [Mass/Vol] 7.5 mg/dL High 2.6-7.2 [facility] Comment on above: Performed By: #### N UM #### [facility] ([id number]) [address] [place] [address] 49966 URINALYSISon 04-16-2023 Bilirubin Ql (U) Negative Normal NEG [facility] BLOOD/HGB Negative Normal NEG [facility] CA OXALATE CRYSTALS PRESENT Abnormal NONE [facility] Color (U) BROWN Abnormal YELLOW [facility] Glucose Ql (U) Negative Normal NEG [facility] Ketones Ql (U) Negative Normal NEG [facility] Leukocyte esterase Test strip Ql (U) Small Abnormal NEG [facility] MUCOUS PRESENT Abnormal NONE [facility] Nitrite Ql (U) Negative Normal NEG [facility] pH (U) 6.0 [pH] Normal 5.0-8.5 [facility] Protein Ql (U) 30 mg/dL Abnormal NEG [facility] R.B.CELLS 2 /hpf Normal 0-5 [facility] Specific gravity (U) [Rel density] 1.030 Normal 1.003-1.035 [facility] SQUAMOUS EPITHELIUM >27 High 0-5 [facility] TURBIDITY CLOUDY Abnormal CLEAR [facility] Urobilinogen (U) [Mass/Vol] mg/dL Normal <1.1 [facility] W.B.CELLS <1 Normal 0-5 [facility] URINE CULTUREon 04-16-2023 Bacteria identified Cx Nom (U) CULTURE RESULTS 50-100,000 ORGANISMS/ML NORMAL UROGENITAL YOGESH Normal [facility] Comment on above: Performed By: #### 2 106-3 #### [facility] ([id number]) [address] [place] [address] 31634 US PREG LESS THAN 14 WKS WIT H TRANSVAGINALon 04-16-2023 US PREG LESS THAN 14 WKS WITH TRANSVAGINAL US PREG LESS THAN 14 WKS WITH TRANSVAGINAL US PREG LESS THAN 14 WKS WITH TRANSVAGINAL: 04/16/2023 1:04 PM Clinical: Check dates and viability. Real-time transabdominal and transvaginal sonography pelvis performed.. No comparison. There is a single live intrauterine . [facility]-rump length of 2.9 mm corresponds to 5 [...] MD on 04/16/2023 6:58 PM Normal [facility] VZV IgG IA Ql (S)on 04-16-19 24 VARICELLA IgG 1.1 AI High <0.9 [facility] Comment on above: Result Comment: Interpretation-------- <0.9 Negative 0.9 - 1.0 Equivocal >1.0 Positive Performed By: #### N UM #### [facility] ([id number]) [address] [place] [address] 37166 CBC AND AUTO DIFFon 03-30-19 24 ABSOLUTE BASOPHIL 0.1 X10E9/L Normal 0.0-0.2 [facility] Comment on above: Performed By: #### C SANAM CMP, [id number] #### [facility] ([id number]) [address] [place] [address] 15795 ABSOLUTE NEUTROPHIL 7.6 X10E9/L High 1.5-6.6 [facility] Comment on above: Performed By: #### C SANAM CMP, 55671-2 #### [facility] ([id number]) [address] [place] [address] 26790 Basophils/100 WBC (Bld) 0.7 % Normal [facility] Comment on above: Performed By: #### Doretha MARION CMP, #### [facility] ([id number]) [address] [place] [address] 70808 Eosinophils (Bld) [#/Vol] 0.2 10*3/uL Normal 0.0-0.4 [facility] Comment on above: Performed By: #### Doretha MARION CMP, #### [facility] ([id number]) [address] [place] [address] 39002 Eosinophils/100 WBC (Bld) 1.8 % Normal [facility] Comment on above: Performed By: #### Doretha MARION CMP, #### [facility] ([id number]) [address] [place] [address] 27981 Erythrocyte distribution width (RBC) [Ratio] 18.4 % High 11.5-15.0 [facility] Comment on above: Performed By: #### Doretha MARION CMP, #### [facility] ([id number]) [address] [place] [address] 21755 Hematocrit (Bld) [Volume fraction] 35.8 % Normal 35-47 [facility] Comment on above: Performed By: #### Doretha MARION CMP, #### [facility] ([id number]) [address] [place] [address] 39057 Hemoglobin (Bld) [Mass/Vol] 11.7 g/dL Normal 11.7-15.5 [facility] Comment on above: Performed By: #### Doretha MARION CMP, #### [facility] ([id number]) [address] [place] [address] 41670 Lymphocytes (Bld) [#/Vol] 2.2 10*3/uL Normal 1.0-3.5 [facility] Comment on above: Performed By: #### Doretha MARION CMP, #### [facility] ([id number]) [address] [place] [address] 45935 Lymphocytes/100 WBC (Bld) 20.7 % Normal [facility] Comment on above: Performed By: #### Doretha MARION CMP, #### [facility] ([id number]) [address] [place] [address] 85139 MCH (RBC) [Entitic mass] 26.2 pg Low 27-34 [facility] Comment on above: Performed By: #### Doretha MARION CMP, #### [facility] ([id number]) [address] [place] [address] 54145 MCHC (RBC) [Mass/Vol] 32.8 g/dL Normal 32-36 [facility] Comment on above: Performed By: #### Doretha MARION CMP, #### [facility] ([id number]) [address] [place] [address] 63533 MCV (RBC) [Entitic vol] 80 fL Normal 80-100 [facility] Comment on above: Performed By: #### Doretha MARION CMP, #### [facility] ([id number]) [address] [place] [address] 88715 Monocytes (Bld) [#/Vol] 0.5 10*3/uL Normal 0-0.9 [facility] Comment on above: Performed By: #### Doretha MARION CMP, #### [facility] ([id number]) [address] [place] [address] 73116 Monocytes/100 WBC (Bld) 5.2 % Normal [facility] Comment on above: Performed By: #### Doretha MARION CMP, #### [facility] ([id number]) [address] [place] [address] 89241 Neutrophils/100 WBC (Bld) 71.6 % Normal [facility] Comment on above: Performed By: #### C BCA, CMP, #### [facility] ([id number]) [address] [place] [address] 41635 Platelet mean volume (Bld) [Entitic vol] 8.3 fL Normal 7-12 [facility] Comment on above: Performed By: #### C SANAM, CMP, #### [facility] ([id number]) [address] [place] [address] 40401 Platelets (Bld) [#/Vol] 337 10*3/uL Normal 150-450 [facility] Comment on above: Performed By: #### Doretha MARION, CMP, #### [facility] ([id number]) [address] [place] [address] 78640 RBC COUNT 4.48 X10E12/L Normal 3.80-5.20 [facility] Comment on above: Performed By: #### Doretha BCA, CMP, #### [facility] ([id number]) [address] [place] [address] 94899 WBC (Bld) [#/Vol] 10.6 10*3/uL Normal 4.0-11.0 [facility] Comment on above: Performed By: #### Doretha BCA, CMP, #### [facility] ([id number]) [address] [place] [address] 21723 COMPREHENSIVE METABOLIC PANE Shaji 03-30-2023 Albumin [Mass/Vol] 4.4 g/dL Normal 3.2-5.3 [facility] Comment on above: Performed By: #### Doretha MARION, CMP, #### [facility] ([id number]) [address] [place] [address] 03820 ALP [Catalytic activity/Vol] 40 U/L Normal 39-130 [facility] Comment on above: Performed By: #### C BCA, CMP, 62247-1 #### [facility] ([id number]) [address] [place] [address] 35439 ALT [Catalytic activity/Vol] 12 U/L Normal 0-31 [facility] Comment on above: Performed By: #### C BCA, CMP, #### [facility] ([id number]) [address] [place] [address] 66159 Anion gap [Moles/Vol] 8 mmol/L Normal 5-15 [facility] Comment on above: Performed By: #### C SANAM, CMP, #### [facility] ([id number]) [address] [place] [address] 00560 AST [Catalytic activity/Vol] 16 U/L Normal 0-41 [facility] Comment on above: Performed By: #### C BCA, CMP, #### [facility] ([id number]) [address] [place] [address] 11785 Bilirubin [Mass/Vol] 0.5 mg/dL Normal 0.3-1.2 [facility] Comment on above: Performed By: #### C BCA, CMP, #### [facility] ([id number]) [address] [place] [address] 22606 Calcium [Mass/Vol] 9.2 mg/dL Normal 8.5-10.5 [facility] Comment on above: Performed By: #### C BCA, CMP, #### [facility] ([id number]) [address] [place] [address] 69321 Chloride [Moles/Vol] 105 mmol/L Normal 98-109 [facility] Comment on above: Performed By: #### C OPAL MARION, 18950-1 #### [facility] ([id number]) [address] [place] [address] 78154 CO2 [Moles/Vol] 24 mmol/L Normal 22-32 [facility] Comment on above: Performed By: #### C OPAL MARION, #### [facility] ([id number]) [address] [place] [address] 49216 Creatinine [Mass/Vol] 0.74 mg/dL Normal 0.40-1.00 [facility] Comment on above: Result Comment: METH OD TRACEABLE TO IDMS STANDARD Performed By: #### C OPAL MARION, #### [facility] ([id number]) [address] [place] [address] 13853 eGFR (CKD-EPI) NON-RACE DEPENDENT >90 Normal >59 [facility] Comment on above: Result Comment: Reported eGFR is based on the CKD-EPI 2020 equation that does not use a race coefficient. Performed By: #### C OPAL MARION, #### [facility] ([id number]) [address] [place] [address] 80007 Glucose [Mass/Vol] 89 mg/dL Normal 65-99 [facility] Comment on above: Performed By: #### C OPAL MARION, #### [facility] ([id number]) [address] [place] [address] 68714 Potassium [Moles/Vol] 3.7 mmol/L Normal 3.5-5.0 [facility] Comment on above: Performed By: #### C OPAL MARION, #### [facility] ([id number]) [address] [place] [address] 07235 Protein [Mass/Vol] 7.4 g/dL Normal 6.0-8.0 [facility] Comment on above: Performed By: #### C BCA, [facility], 56326-2 #### [facility] ([id number]) [address] [place] [address] 32350 Sodium [Moles/Vol] 137 mmol/L Normal 134-146 [facility] Comment on above: Performed By: #### C BCA, [facility], 23014-8 #### [facility] ([id number]) [address] [place] [address] 54382 Urea nitrogen [Mass/Vol] 10 mg/dL Normal 5-23 [facility] Comment on above: Performed By: #### C BCA, [facility], 66342-4 #### [facility] ([id number]) [address] [place] [address] 65328 HCG ( test) Ql (U)o n 03-30-2023 Beta HCG ( test) Ql (U) Positive Abnormal NEG [facility] Comment on above: Performed By: #### 2 106-3 #### [facility] ([id number]) [address] [place] [address] 92176 HCG.beta subunit IA 3rd IS Q non 03-30-2023 HCG.beta subunit Qn 80 m[IU]/mL Normal [facility] Comment on above: Result Comment: NEW [...] neoplasms. Performed By: #### C BCA, CMP, 80879-8 #### [facility] ([id number]) [address] [place] [address] 82909 URINE CULTUREon 03-30-2023 Bacteria identified Cx Nom (U) CULTURE RESULTS 10-50,000 ORGANISMS/mL NORMAL UROGENITAL YOGESH Normal [facility] Comment on above: Performed By: #### 6 30-4 #### [facility] ([id number]) [address] [place] [address], [address] [place] [address] URN MACROSCOPIC NURon 2023 BILIRUBIN YARI Negative Normal NEG [facility] Comment on above: Performed By: #### N UM #### [facility] ([id number]) [address] [place] [address] 17475 BLOOD/HGB YARI Negative Normal NEG [facility] Comment on above: Performed By: #### N UM #### [facility] ([id number]) [address] [place] [address] 74219 GLUCOSE YARI Negative Normal NEG [facility] Comment on above: Performed By: #### N UM #### [facility] ([id number]) [address] [place] [address] 86934 KETONES YARI Negative Normal NEG [facility] Comment on above: Performed By: #### N UM #### [facility] ([id number]) [address] [place] [address] 70726 LEUKOCYTE ESTERASE YARI Negative Normal NEG [facility] Comment on above: Performed By: #### N UM #### [facility] ([id number]) [address] [place] [address] 48712 NITRITE YARI Negative Normal NEG [facility] Comment on above: Performed By: #### N UM #### [facility] ([id number]) [address] [place] [address] 99339 PH YARI 6.0 Normal 5.0-8.5 [facility] Comment on above: Performed By: #### N UM #### [facility] ([id number]) [address] [place] [address] 81104 PROTEIN YARI Negative Normal NEG [facility] Comment on above: Performed By: #### N UM #### [facility] ([id number]) [address] [place] [address] 61677 SPECIFIC GRAVITY YARI >=1.030 Normal 1.003-1.035 [facility] Comment on above: Performed By: #### N UM #### [facility] ([id number]) [address] [place] [address] 74884 UROBILINOGEN YARI 0.2 eu/dL Normal <1.1 [facility] Comment on above: Performed By: #### N UM #### [facility] ([id number]) [address] [place] [address] 68456 US PREG LESS THAN 14 WKS WIT [...] MD on 03/30/2023 8:48 PM Normal [facility] Cholesterol [Mass/volume] in Serum or PlasmaOrdered By: Dar Nation on 11-28-2022 Cholesterol [Mass/Vol] 200 mg/dL 140-200 [facility] Comment on above: Chol less than 200 m g/dl low riskChol 201-239 mg/dl borderline riskChol 240 mg/dl and greater high risk Cholesterol in LDL Calc [Mas s/Vol]Ordered By: Dar Nation on 11-28-2022 Cholesterol in LDL [Mass/Vol] 75 mg/dL 0-100 [facility] Comment on above: LDL ATP III CLASSIFI CATIONLDL less than 100 mg/dL OptimalLDL 100-129 mg/dL Near or above optimalLDL 130-159 mg/dL Borderline highLDL 160-189 mg/dL HighLDL greater than 189 mg/dL Very high Cholesterol in VLDL Calc [Ma ss/Vol]Ordered By: Dar Nation on 11-28-2022 Cholesterol in VLDL [Mass/Vol] 16 mg/dL [facility] Serum or plasma high density lipoprotein (HDL) cholesterol measurementOrdered By: Dar Nation on 11-28-2022 Cholesterol in HDL [Mass/Vol] 109 mg/dL 23-92 [facility] Comment on above: HDL CHOL ATP-III CLA SSIFICATION Cardiovascular RiskHDL > or equal to 60 mg/dL LOWHDL < 40 mg/dL HIGH Serum or plasma total choles terol/high density lipoprotein (HDL) cholesterol mass ratOrdered By: Dar Nation on 11-28-2022 Cholesterol.total/Cho lesterol in HDL [Mass ratio] 1.8 {ratio} <5.0 [facility] Thyrotropin [Units/volume] i n Serum or PlasmaOrdered By: Dar Nation on 11-28-2022 TSH Qn 1.79 m[IU]/L 0.45-5.33 [facility] Triglyceride [Mass/volume] i n Serum or PlasmaOrdered By: Dar Nation on 11-28-2022 Triglyceride [Mass/Vol] 80 mg/dL 0-149 [facility] Comment on above: TRIG ATP III CLASSIF ICATIONTRIG less than 150 mg/dL NormalTRIG 150-199 mg/dL Borderline highTRIG 200-500 mg/dL High TRIG greater than 500 mg/dL Very highStandard traceable to the Center for Disease Conrtrol and Prevention (CDC) test method. Vitamin D+Metabolites [Mass/ volume] in Serum or PlasmaOrdered By: Dar Nation on 11-28-2022 Vitamin D+Metabolites [Mass/Vol] 32.8 ng/mL 30-100 [facility] Comment on above: VITAMIN D STATUS 25( [place])VITAMIN D RANGE (ng/mL) Deficient <20 Insufficient 20 to <30Sufficient 30 to 100Reference: Sharmaine MF,Aye NC, Geremias SWEET, et al. Evaluation,treatment, and prevention of vitamin D deficiency; an Endocrine Society clinical practice guideline. JCEM. 2010; 96(7):1911-30. Alanine aminotransferase [En zymatic activity/volume] in Serum or PlasmaOrdered By: Sara Tripathi on 11-27-2022 ALT [Catalytic activity/Vol] 19 U/L 7-52 [facility] Albumin [Mass/volume] in Ser um or Plasma by Bromocresol green (BCG) dye binding methoOrdered By: Sara Tripathi on 11-27-2022 Albumin BCG dye [Mass/Vol] 4.2 g/dL 3.5-5.7 [facility] Alkaline phosphatase [Enzyma tic activity/volume] in Serum or PlasmaOrdered By: Sara Tripathi on 11-27-2022 ALP [Catalytic activity/Vol] 56 U/L 34-104 [facility] Amphetamine Screen Ql (U)Ord ered By: Sara Tripathi on 11-27-2022 Amphetamines Ql (U) Negative Negative [facility] Aspartate aminotransferase [ Enzymatic activity/volume] in Serum or PlasmaOrdered By: Sara Tripathi on 11-27-2022 AST [Catalytic activity/Vol] 31 U/L 13-39 [facility] Automated erythrocytes count in urine sediment (number/area)Ordered By: Sara Tripathi on 11-27-2022 RBC Auto (Urine sed) [#/Area] 5-9 [HPF] 0-4 [facility] Automated leukocytes count i n urine sediment (number/area)Ordered By: Sara Tripathi on 11-27-2022 WBC Auto (Urine sed) [#/Area] 50-100 [HPF] 0-4 [facility] Automated urine hyaline cast s count (number/volume)Ordered By: Sara Tripathi on 11-27-2022 Hyaline casts Auto (U) [#/Vol] None seen [LPF] 0-1 [facility] Barbiturates [Presence] in U rine by Screen methodOrdered By: Sara Tripathi on 11-27-2022 Barbiturates Screen Ql (U) Negative Negative [facility] Basophils Auto (Bld) [#/Vol] Ordered By: Sara Tripathi on 11-27-2022 Basophils (Bld) [#/Vol] 0.2 10*3/uL 0.0-0.2 [facility] Basophils/100 WBC Auto (Bld) Ordered By: Sara Tripathi on 11-27-2022 Basophils/100 WBC (Bld) 3.0 % . [facility] Benzodiazepines Screen Ql (U )Ordered By: Sara Tripathi on 11-27-2022 Benzodiazepines Ql (U) Negative Negative [facility] Benzoylecgonine [Presence] i n Urine by Screen methodOrdered By: Sara Tripathi on 11-27-2022 Benzoylecgonine Screen Ql (U) Negative Negative [facility] Bilirubin Test strip Ql (U)O rdered By: Sara Tripathi on 11-27-2022 Bilirubin Ql (U) Negative Negative [facility] Bilirubin.total [Mass/volume ] in Serum or PlasmaOrdered By: Sara Tripathi on 11-27-2022 Bilirubin [Mass/Vol] 0.7 mg/dL 0.3-1.0 [facility] Calcium [Mass/volume] in Ser um or PlasmaOrdered By: Sara Tripathi on 11-27-2022 Calcium [Mass/Vol] 9.4 mg/dL 8.6-10.3 [facility] Cannabinoids [Presence] in U rine by Screen methodOrdered By: Sara Tripathi on 11-27-2022 Cannabinoids Screen Ql (U) Positive Negative [facility] Comment on above: These are unconfirme d results and should not be used for legal purposes. Drug Cut-Off Concentration: AMPH 1000 ng/mL CARMELLA 200 ng/mL GERMAN 200 ng/mL COCM 300 ng/mL OP 300 ng/mL PCP 25 ng/mL THC 20 ng/mL Carbon dioxide, total [Moles /volume] in Serum or PlasmaOrdered By: Sara Tripathi on 11-27-2022 CO2 [Moles/Vol] 24.9 mmol/L 21.0-31.0 [facility] Casts typing in urine sedime nt by light microscopyOrdered By: Sara Tripathi on 11-27-2022 Casts LM Nom (Urine sed) None seen [LPF] None Seen [facility] Chloride [Moles/volume] in S phil or PlasmaOrdered By: Sara Tripathi on 11-27-2022 Chloride [Moles/Vol] 101 mmol/L 98-107 [facility] Coarse granular casts count in urine sediment by microscopy low power field (number/aOrdered By: Sara Tripathi on 11-27-2022 Coarse Granular Casts LM.LPF (Urine sed) [#/Area] 0-1 [LPF] 0-1 [facility] Color Auto (U)Ordered By: Donna Tripathi on 11-27-2022 Color (U) Dark yellow Yellow [facility] Creatinine [Mass/volume] in Serum or PlasmaOrdered By: Sara Tripathi on 11-27-2022 Creatinine [Mass/Vol] 0.83 mg/dL 0.60-1.20 [facility] Eosinophils Auto (Bld) [#/Vo l]Ordered By: Sara Tripathi on 11-27-2022 Eosinophils (Bld) [#/Vol] 0.1 10*3/uL 0.0-0.45 [facility] Eosinophils/100 WBC Auto (Bl d)Ordered By: Sara Tripathi on 11-27-2022 Eosinophils/100 WBC (Bld) 1.1 % . [facility] Erythrocyte distribution wid th Auto (RBC) [Ratio]Ordered By: Sara Tripathi on 11-27-2022 Erythrocyte distribution width (RBC) [Ratio] 15.9 % 11.9-15.3 [facility] Ethanol [Mass/volume] in Ser um or PlasmaOrdered By: Sara Tripathi on 11-27-2022 Ethanol [Mass/Vol] 26 mg/dL [facility] [facility] [place] Ethanol [Mass/Vol] 0.026 % [facility] [place] Fine granular cast count in urine sediment by microscopy (number/low power field )Ordered By: Sara Tripathi on 11-27-2022 Fine Granular Casts LM.LPF (Urine sed) [#/Area] 0-1 [LPF] 0-1 [facility] Globulin Calc (S) [Mass/Vol] Ordered By: Sara Tripathi on 11-27-2022 Globulin (S) [Mass/Vol] 2.9 g/dL [facility] Glucose [Mass/volume] in Ser um or PlasmaOrdered By: Sara Tripathi on 11-27-2022 Glucose [Mass/Vol] 82 mg/dL 70-100 [facility] [place] Comment on above: ADA recommended refe rence rangeRandom Glucose Reference Range is dependent on time and content of last meal. Glucose of more than 200 mg/dL in a nonstressed, ambulatory subject supports the diagnosis of Diabetes Mellitus. HCG ( test) IA.rapi d Ql (U)Ordered By: Sara Tripathi on 11-27-2022 HCG ( test) Ql (U) Negative [facility] Hematocrit Auto (Bld) [Volum e fraction]Ordered By: Sara Tripathi on 11-27-2022 Hematocrit (Bld) [Volume fraction] 38.0 % 34.0-46.4 [facility] Hemoglobin [Mass/volume] in BloodOrdered By: Sara Tripathi on 11-27-2022 Hemoglobin (Bld) [Mass/Vol] 12.5 g/dL 11.8-15.4 [facility] Ketones Auto test strip (U) [Mass/Vol]Ordered By: Sara Tripathi on 11-27-2022 Ketones (U) [Mass/Vol] Negative Negative [facility] Leukocytes [#/volume] correc christelle for nucleated erythrocytes in Blood by Automated counOrdered By: Sara Tripathi on 11-27-2022 WBC corrected for nucl RBC Auto (Bld) [#/Vol] 6.7 10*3/uL 3.8-11.6 [facility] Lymphocytes Auto (Bld) [#/Vo l]Ordered By: Sara Tripathi on 11-27-2022 Lymphocytes (Bld) [#/Vol] 0.8 10*3/uL 1.00-4.8 [facility] Lymphocytes/100 WBC Auto (Bl d)Ordered By: Sara Tripathi on 11-27-2022 Lymphocytes/100 WBC (Bld) 11.3 % . [facility] MCH Auto (RBC) [Entitic mass ]Ordered By: Sara Tripathi on 11-27-2022 MCH (RBC) [Entitic mass] 28.8 pg 24.7-34.3 [facility] MCHC Auto (RBC) [Mass/Vol]Or dered By: Sara Tripathi on 11-27-2022 MCHC (RBC) [Mass/Vol] 33.0 g/dL 32.0-35.0 [facility] MCV Auto (RBC) [Entitic vol] Ordered By: Sara Tripathi on 11-27-2022 MCV (RBC) [Entitic vol] 87.5 fL 80-100 [facility] Monocyte distribution width [Entitic volume] in Blood by AutomatedOrdered By: Sara Tripathi on 11-27-2022 Monocyte distribution width Auto (Bld) [Entitic vol] 17.41 % 0.00-20.00 [facility] Monocytes Auto (Bld) [#/Vol] Ordered By: Sara Tripathi on 11-27-2022 Monocytes (Bld) [#/Vol] 0.6 10*3/uL 0.0-0.8 [facility] Monocytes/100 WBC Auto (Bld) Ordered By: Sara Tripathi on 11-27-2022 Monocytes/100 WBC (Bld) 8.9 % . [facility] Neutrophils Auto (Bld) [#/Vo l]Ordered By: Sara Tripathi on 11-27-2022 Neutrophils (Bld) [#/Vol] 5.1 10*3/uL 1.8-7.7 [facility] Neutrophils/100 WBC Auto (Bl d)Ordered By: Sara Tripathi on 11-27-2022 Neutrophils/100 WBC (Bld) 75.7 % . [facility] Nitrite Test strip Ql (U)Ord ered By: Sara Tripathi on 11-27-2022 Nitrite Ql (U) Negative Negative [facility] No Panel InformationOrdered By: Sara Tripathi on 11-27-2022 Estimated GFR (CKD-EPI) > 60.0 mL/Min [facility] Creatinine Clearance (Chem 110.58 [facility] Nucleated erythrocytes [Pres ence] in Blood by Automated countOrdered By: Sara Tripathi on 11-27-2022 Nucleated RBC Auto Ql (Bld) 0.0 /100{WBC} 0-0.5 [facility] Opiates [Presence] in Urine by Screen methodOrdered By: Sara Tripathi on 11-27-2022 Opiates Screen Ql (U) Negative Negative [facility] Phencyclidine Screen Ql (U)O rdered By: Sara Tripathi on 11-27-2022 Phencyclidine Ql (U) Negative Negative [facility] Platelet mean volume Auto (B ld) [Entitic vol]Ordered By: Sara Tripathi on 11-27-2022 Platelet mean volume (Bld) [Entitic vol] 7.1 fL 6.3-10.7 [facility] Platelets Auto (Bld) [#/Vol] Ordered By: Sara Tripathi on 11-27-2022 Platelets (Bld) [#/Vol] 402 10*3/uL 150-450 [facility] Potassium [Moles/volume] in Serum or PlasmaOrdered By: Sara Tripathi on 11-27-2022 Potassium [Moles/Vol] 3.3 mmol/L 3.5-5.1 [facility] Protein Auto test strip (U) [Mass/Vol]Ordered By: Sara Tripathi on 11-27-2022 Protein (U) [Mass/Vol] Trace mg/dL Negative [facility] Protein [Mass/volume] in Ser um or PlasmaOrdered By: Sara Tripathi on 11-27-2022 Protein [Mass/Vol] 7.1 g/dL 6.4-8.9 [facility] [place] RBC Auto (Bld) [#/Vol]Ordere d By: Sara Tripathi on 11-27-2022 RBC (Bld) [#/Vol] 4.34 10*6/uL 3.60-5.00 [facility] Serum or plasma albumin/glob ulin mass ratioOrdered By: Sara Tripathi on 11-27-2022 Albumin/Globulin [Mass ratio] 1.4 {ratio} [facility] Serum or plasma anion gap de terminationOrdered By: Sara Tripathi on 11-27-2022 Anion gap [Moles/Vol] 15.4 mmol/L 6.0-15.0 [facility] Sodium [Moles/volume] in Ser um or PlasmaOrdered By: Sara Tripathi on 11-27-2022 Sodium [Moles/Vol] 138 mmol/L 136-145 [facility] [place] Specific gravity Auto test s trip (U) [Rel density]Ordered By: Sara Tripathi on 11-27-2022 Specific gravity (U) [Rel density] 1.023 1.001-1.030 [facility] Squamous epithelial cells de tection in urine sediment by light microscopyOrdered By: Sara Tripathi on 11-27-2022 Epithelial cells.squamous LM Ql (Urine sed) 20-30 [HPF] 0-2 [facility] Thyrotropin [Units/volume] i n Serum or PlasmaOrdered By: Sara Tripathi on 11-27-2022 TSH Qn 2.35 m[IU]/L 0.45-5.33 [facility] Troponin I.cardiac [Mass/vol ume] in Serum or Plasma by Detection limit <= 0.01 ng/Ordered By: Sara Tripathi on 11-27-2022 Troponin I.cardiac DL <= 0.01 ng/mL [Mass/Vol] 3.2 pg/mL 0.0-15.0 [facility] Urea nitrogen [Mass/volume] in Serum or PlasmaOrdered By: Sara Tripathi on 11-27-2022 Urea nitrogen [Mass/Vol] 9 mg/dL 7-25 [facility] Urine bacteria detection by automated methodOrdered By: Sara Tripathi on 11-27-2022 Bacteria Auto Ql (U) 4+ None Seen [facility] Urine clarity by refractomet ry automatedOrdered By: Sara Tripathi on 11-27-2022 Clarity Refractometry automated (U) Turbid Clear [facility] Urine culture routineOrdered By: Sara Tripathi on 11-27-2022 Bacteria identified Cx Nom (U) Escherichia coli [facility] Urine glucose measurement by automated test strip (mass/volume)Ordered By: Sara Tripathi on 11-27-2022 Glucose Auto test strip (U) [Mass/Vol] Normal mg/dL Normal [facility] Urine hemoglobin detection b y automated test stripOrdered By: Sara Tripathi on 11-27-2022 Hemoglobin Auto test strip Ql (U) 1+ Negative [facility] Urine leukocyte esterase det ection by automated test stripOrdered By: Sara Tripathi on 11-27-2022 Leukocyte esterase Auto test strip Ql (U) 2+ Negative [facility] Urobilinogen Auto test strip (U) [Mass/Vol]Ordered By: Sara Tripathi on 11-27-2022 Urobilinogen (U) [Mass/Vol] Normal mg/dL Normal [facility] WBC Auto (Bld) [#/Vol]Ordere d By: Sara Tripathi on 11-27-2022 WBC (Bld) [#/Vol] 6.7 10*3/uL 3.8-11.6 [facility] pH Auto test strip (U)Ordere d By: Sara Tripathi on 11-27-2022 pH (U) 5.0 [pH] 5.0-9.0 [facility] Alanine aminotransferase [En zymatic activity/volume] in Serum or PlasmaOrdered By: Ji Smith on 05-11-2022 ALT [Catalytic activity/Vol] 27 U/L 7-52 [facility] Albumin [Mass/volume] in Ser um or Plasma by Bromocresol green (BCG) dye binding methoOrdered By: Ji Smith on 05-11-2022 Albumin BCG dye [Mass/Vol] 4.5 g/dL 3.5-5.7 [facility] Alkaline phosphatase [Enzyma tic activity/volume] in Serum or PlasmaOrdered By: Ji Smith on 05-11-2022 ALP [Catalytic activity/Vol] 51 U/L 34-104 [facility] Aspartate aminotransferase [ Enzymatic activity/volume] in Serum or PlasmaOrdered By: Ji Smith on 05-11-2022 AST [Catalytic activity/Vol] 33 U/L 13-39 [facility] Bilirubin.total [Mass/volume ] in Serum or PlasmaOrdered By: Ji Smith on 05-11-2022 Bilirubin [Mass/Vol] 0.7 mg/dL 0.3-1.0 [facility] Calcium [Mass/volume] in Ser um or PlasmaOrdered By: Ji Smith on 05-11-2022 Calcium [Mass/Vol] 9.7 mg/dL 8.6-10.3 [facility] [place] Carbon dioxide, total [Moles /volume] in Serum or PlasmaOrdered By: Ji Smith on 05-11-2022 CO2 [Moles/Vol] 25.8 mmol/L 21.0-31.0 [facility] Chloride [Moles/volume] in S phil or PlasmaOrdered By: Ji Smith on 05-11-2022 Chloride [Moles/Vol] 102 mmol/L 98-107 [facility] Creatinine [Mass/volume] in Serum or PlasmaOrdered By: Ji Smith on 05-11-2022 Creatinine [Mass/Vol] 0.68 mg/dL 0.60-1.20 [facility] Globulin Calc (S) [Mass/Vol] Ordered By: Ji Smith on 05-11-2022 Globulin (S) [Mass/Vol] 2.7 g/dL [facility] Glucose [Mass/volume] in Ser um or PlasmaOrdered By: Ji Smith on 05-11-2022 Glucose [Mass/Vol] 93 mg/dL 70-100 [facility] Comment on above: ADA recommended refe rence rangeRandom Glucose Reference Range is dependent on time and content of last meal. Glucose of more than 200 mg/dL in a nonstressed, ambulatory subject supports the diagnosis of Diabetes Mellitus. No Panel InformationOrdered By: Ji Smith on 05-11-2022 Estimated GFR (CKD-EPI) > 60.0 mL/Min [facility] Creatinine Clearance (Chem 129.74 [facility] Potassium [Moles/volume] in Serum or PlasmaOrdered By: Ji Smith on 05-11-2022 Potassium [Moles/Vol] 3.6 mmol/L 3.5-5.1 [facility] Protein [Mass/volume] in Ser um or PlasmaOrdered By: Ji Smith on 05-11-2022 Protein [Mass/Vol] 7.2 g/dL 6.4-8.9 [facility] [place] Serum or plasma albumin/glob ulin mass ratioOrdered By: Ji Smith on 05-11-2022 Albumin/Globulin [Mass ratio] 1.7 {ratio} [facility] Serum or plasma anion gap de terminationOrdered By: Ji Smith on 05-11-2022 Anion gap [Moles/Vol] 13.8 mmol/L 6.0-15.0 [facility] Sodium [Moles/volume] in Ser um or PlasmaOrdered By: Ji Smith on 05-11-2022 Sodium [Moles/Vol] 138 mmol/L 136-145 [facility] [place] Urea nitrogen [Mass/volume] in Serum or PlasmaOrdered By: Ji Smith on 05-11-2022 Urea nitrogen [Mass/Vol] 11 mg/dL 7-25 [facility] Acetaminophen [Mass/volume] in Serum or PlasmaOrdered By: Henry Cross on 05-09-2022 Acetaminophen [Mass/Vol] 1.1 ug/mL 10.0-30.0 [facility] Alanine aminotransferase [En zymatic activity/volume] in Serum or PlasmaOrdered By: Henry Cross on 05-09-2022 ALT [Catalytic activity/Vol] 40 U/L 7-52 [facility] Albumin [Mass/volume] in Ser um or Plasma by Bromocresol green (BCG) dye binding methoOrdered By: Henry Cross on 05-09-2022 Albumin BCG dye [Mass/Vol] 5.0 g/dL 3.5-5.7 [facility] Alkaline phosphatase [Enzyma tic activity/volume] in Serum or PlasmaOrdered By: Henry Cross on 05-09-2022 ALP [Catalytic activity/Vol] 61 U/L 34-104 [facility] Amphetamine Screen Ql (U)Ord ered By: Henry Cross on 05-09-2022 Amphetamines Ql (U) Negative Negative [facility] Aspartate aminotransferase [ Enzymatic activity/volume] in Serum or PlasmaOrdered By: Henry Cross on 05-09-2022 AST [Catalytic activity/Vol] 71 U/L 13-39 [facility] Automated epithelial cells c ount in urine sediment (number/area)Ordered By: Henry Cross on 05-09-2022 Epithelial cells Auto (Urine sed) [#/Area] 0-1 [HPF] 0-2 [facility] Automated erythrocytes count in urine sediment (number/area)Ordered By: Henry Cross on 05-09-2022 RBC Auto (Urine sed) [#/Area] 3-4 [HPF] 0-4 [facility] Automated leukocytes count i n urine sediment (number/area)Ordered By: Henry Cross on 05-09-2022 WBC Auto (Urine sed) [#/Area] 0-1 [HPF] 0-4 [facility] Barbiturates [Presence] in U rine by Screen methodOrdered By: Henry Cross on 05-09-2022 Barbiturates Screen Ql (U) Negative Negative [facility] Basophils Auto (Bld) [#/Vol] Ordered By: Henry Cross on 05-09-2022 Basophils (Bld) [#/Vol] 0.1 10*3/uL 0.0-0.2 [facility] Basophils/100 WBC Auto (Bld) Ordered By: Henry Cross on 05-09-2022 Basophils/100 WBC (Bld) 0.9 % . [facility] Benzodiazepines Screen Ql (U )Ordered By: Henry Cross on 05-09-2022 Benzodiazepines Ql (U) Negative Negative [facility] Benzoylecgonine [Presence] i n Urine by Screen methodOrdered By: Henry Cross on 05-09-2022 Benzoylecgonine Screen Ql (U) Negative Negative [facility] Bilirubin Test strip Ql (U)O rdered By: Henry Cross on 05-09-2022 Bilirubin Ql (U) Negative Negative [facility] Bilirubin.total [Mass/volume ] in Serum or PlasmaOrdered By: Henry Cross on 05-09-2022 Bilirubin [Mass/Vol] 0.4 mg/dL 0.3-1.0 [facility] Calcium [Mass/volume] in Ser um or PlasmaOrdered By: Henry Cross on 05-09-2022 Calcium [Mass/Vol] 9.4 mg/dL 8.6-10.3 [facility] [place] Cannabinoids [Presence] in U rine by Screen methodOrdered By: Henry Cross on 05-09-2022 Cannabinoids Screen Ql (U) Positive Negative [facility] Comment on above: These are unconfirme d results and should not be used for legal purposes. Drug Cut-Off Concentration: AMPH 1000 ng/mL CARMELLA 200 ng/mL GERMAN 200 ng/mL COCM 300 ng/mL OP 300 ng/mL PCP 25 ng/mL THC 20 ng/mL Carbon dioxide, total [Moles /volume] in Serum or PlasmaOrdered By: Henry Cross on 05-09-2022 CO2 [Moles/Vol] 24.5 mmol/L 21.0-31.0 [facility] Chloride [Moles/volume] in S phil or PlasmaOrdered By: Henry Cross on 05-09-2022 Chloride [Moles/Vol] 102 mmol/L 98-107 [facility] Cholesterol [Mass/volume] in Serum or PlasmaOrdered By: Ji Smith on 05-09-2022 Cholesterol [Mass/Vol] 336 mg/dL 140-200 [facility] Comment on above: Chol less than 200 m g/dl low riskChol 201-239 mg/dl borderline riskChol 240 mg/dl and greater high risk Cholesterol in LDL Calc [Mas s/Vol]Ordered By: Ji Smith on 05-09-2022 Cholesterol in LDL [Mass/Vol] 133 mg/dL 0-100 [facility] Comment on above: LDL ATP III CLASSIFI CATIONLDL less than 100 mg/dL OptimalLDL 100-129 mg/dL Near or above optimalLDL 130-159 mg/dL Borderline highLDL 160-189 mg/dL HighLDL greater than 189 mg/dL Very high Cholesterol in VLDL Calc [Ma ss/Vol]Ordered By: Ji Smith on 05-09-2022 Cholesterol in VLDL [Mass/Vol] 21 mg/dL [facility] Color Auto (U)Ordered By: Valerie Cross on 05-09-2022 Color (U) Yellow Yellow [facility] Creatinine [Mass/volume] in Serum or PlasmaOrdered By: Henry Cross on 05-09-2022 Creatinine [Mass/Vol] 0.76 mg/dL 0.60-1.20 [facility] Eosinophils Auto (Bld) [#/Vo l]Ordered By: Henry Cross on 05-09-2022 Eosinophils (Bld) [#/Vol] 0.1 10*3/uL 0.0-0.45 [facility] Eosinophils/100 WBC Auto (Bl d)Ordered By: Henry Cross on 05-09-2022 Eosinophils/100 WBC (Bld) 1.3 % . [facility] Erythrocyte distribution wid th Auto (RBC) [Ratio]Ordered By: Henry Cross on 05-09-2022 Erythrocyte distribution width (RBC) [Ratio] 17.8 % 11.9-15.3 [facility] Ethanol [Mass/volume] in Ser um or PlasmaOrdered By: Henry rCoss on 05-09-2022 Ethanol [Mass/Vol] 302 mg/dL [facility] [place] Ethanol [Mass/Vol] 0.302 % [facility] [place] Globulin Calc (S) [Mass/Vol] Ordered By: Henry Cross on 05-09-2022 Globulin (S) [Mass/Vol] 2.8 g/dL [facility] Glucose [Mass/volume] in Ser um or PlasmaOrdered By: Henry Cross on 05-09-2022 Glucose [Mass/Vol] 85 mg/dL 70-100 [facility] Comment on above: ADA recommended refe rence rangeRandom Glucose Reference Range is dependent on time and content of last meal. Glucose of more than 200 mg/dL in a nonstressed, ambulatory subject supports the diagnosis of Diabetes Mellitus. HCG ( test) IA.rapi d Ql (U)Ordered By: Henry Cross on 05-09-2022 HCG ( test) Ql (U) Negative [facility] Hematocrit Auto (Bld) [Volum e fraction]Ordered By: Henry Cross on 05-09-2022 Hematocrit (Bld) [Volume fraction] 40.2 % 34.0-46.4 [facility] Hemoglobin [Mass/volume] in BloodOrdered By: Henry Cross on 05-09-2022 Hemoglobin (Bld) [Mass/Vol] 13.1 g/dL 11.8-15.4 [facility] Ketones Auto test strip (U) [Mass/Vol]Ordered By: Henry Cross on 05-09-2022 Ketones (U) [Mass/Vol] Trace Negative [facility] Leukocytes [#/volume] correc christelle for nucleated erythrocytes in Blood by Automated counOrdered By: Henry Cross on 05-09-2022 WBC corrected for nucl RBC Auto (Bld) [#/Vol] 6.3 10*3/uL 3.8-11.6 [facility] Lymphocytes Auto (Bld) [#/Vo l]Ordered By: Henry Cross on 05-09-2022 Lymphocytes (Bld) [#/Vol] 1.4 10*3/uL 1.00-4.8 [facility] Lymphocytes/100 WBC Auto (Bl d)Ordered By: Henry Cross on 05-09-2022 Lymphocytes/100 WBC (Bld) 22.7 % . [facility] MCH Auto (RBC) [Entitic mass ]Ordered By: Henry Cross on 05-09-2022 MCH (RBC) [Entitic mass] 29.4 pg 24.7-34.3 [facility] MCHC Auto (RBC) [Mass/Vol]Or dered By: Henry Cross on 05-09-2022 MCHC (RBC) [Mass/Vol] 32.7 g/dL 32.0-35.0 [facility] MCV Auto (RBC) [Entitic vol] Ordered By: Henry Cross on 05-09-2022 MCV (RBC) [Entitic vol] 90.0 fL 80-100 [facility] Monocyte distribution width [Entitic volume] in Blood by AutomatedOrdered By: Henry Cross on 05-09-2022 Monocyte distribution width Auto (Bld) [Entitic vol] 15.97 % 0.00-20.00 [facility] Monocytes Auto (Bld) [#/Vol] Ordered By: Henry Cross on 05-09-2022 Monocytes (Bld) [#/Vol] 0.4 10*3/uL 0.0-0.8 [facility] Monocytes/100 WBC Auto (Bld) Ordered By: Henry Cross on 05-09-2022 Monocytes/100 WBC (Bld) 6.5 % . [facility] Neutrophils Auto (Bld) [#/Vo l]Ordered By: Henry Cross on 05-09-2022 Neutrophils (Bld) [#/Vol] 4.3 10*3/uL 1.8-7.7 [facility] Neutrophils/100 WBC Auto (Bl d)Ordered By: Henry Cross on 05-09-2022 Neutrophils/100 WBC (Bld) 68.6 % . [facility] Nitrite Test strip Ql (U)Ord ered By: Henry Cross on 05-09-2022 Nitrite Ql (U) Negative Negative [facility] No Panel InformationOrdered By: Henry Cross on 05-09-2022 Estimated GFR (CKD-EPI) > 60.0 mL/Min [facility] Creatinine Clearance (Chem 114.17 [facility] Nucleated erythrocytes [Pres ence] in Blood by Automated countOrdered By: Henry Cross on 05-09-2022 Nucleated RBC Auto Ql (Bld) 0.0 /100{WBC} 0-0.5 [facility] Opiates [Presence] in Urine by Screen methodOrdered By: Henry Cross on 05-09-2022 Opiates Screen Ql (U) Negative Negative [facility] Phencyclidine Screen Ql (U)O rdered By: Henry Cross on 05-09-2022 Phencyclidine Ql (U) Negative Negative [facility] Platelet mean volume Auto (B ld) [Entitic vol]Ordered By: Henry Cross on 05-09-2022 Platelet mean volume (Bld) [Entitic vol] 6.7 fL 6.3-10.7 [facility] Platelets Auto (Bld) [#/Vol] Ordered By: Henry Cross on 05-09-2022 Platelets (Bld) [#/Vol] 330 10*3/uL 150-450 [facility] Potassium [Moles/volume] in Serum or PlasmaOrdered By: Henry Cross on 05-09-2022 Potassium [Moles/Vol] 3.9 mmol/L 3.5-5.1 [facility] Protein Auto test strip (U) [Mass/Vol]Ordered By: Henry Cross on 05-09-2022 Protein (U) [Mass/Vol] 30 mg/dL Negative [facility] Protein [Mass/volume] in Ser um or PlasmaOrdered By: Henry Cross on 05-09-2022 Protein [Mass/Vol] 7.8 g/dL 6.4-8.9 [facility] RBC Auto (Bld) [#/Vol]Ordere d By: Henry Cross on 05-09-2022 RBC (Bld) [#/Vol] 4.46 10*6/uL 3.60-5.00 [facility] Salicylates [Mass/volume] in Serum or PlasmaOrdered By: Henry Cross on 05-09-2022 Salicylates [Mass/Vol] mg/dL 15.0-30.0 [facility] Comment on above: Patients treated wit h Sulfasalazine may generate a false high result for Salicylate. Serum or plasma albumin/glob ulin mass ratioOrdered By: Henry Cross on 05-09-2022 Albumin/Globulin [Mass ratio] 1.8 {ratio} [facility] Serum or plasma anion gap de terminationOrdered By: Henry Cross on 05-09-2022 Anion gap [Moles/Vol] 18.4 mmol/L 6.0-15.0 [facility] Serum or plasma high density lipoprotein (HDL) cholesterol measurementOrdered By: Ji Smith on 05-09-2022 Cholesterol in HDL [Mass/Vol] 182 mg/dL 35-85 [facility] Comment on above: HDL CHOL ATP-III CLA SSIFICATION Cardiovascular RiskHDL > or equal to 60 mg/dL LOWHDL < 40 mg/dL HIGH Serum or plasma total choles terol/high density lipoprotein (HDL) cholesterol mass ratOrdered By: Ji Smith on 05-09-2022 Cholesterol.total/Cho lesterol in HDL [Mass ratio] 1.8 {ratio} <5.0 [facility] Sodium [Moles/volume] in Ser um or PlasmaOrdered By: Henry Cross on 05-09-2022 Sodium [Moles/Vol] 141 mmol/L 136-145 [facility] Specific gravity Auto test s trip (U) [Rel density]Ordered By: Henry Cross on 05-09-2022 Specific gravity (U) [Rel density] 1.013 1.001-1.030 [facility] Thyrotropin [Units/volume] i n Serum or PlasmaOrdered By: Ji Smith on 05-09-2022 TSH Qn 0.80 m[IU]/L 0.45-5.33 [facility] Triglyceride [Mass/volume] i n Serum or PlasmaOrdered By: Ji Smith on 05-09-2022 Triglyceride [Mass/Vol] 107 mg/dL 0-149 [facility] Comment on above: TRIG ATP III CLASSIF ICATIONTRIG less than 150 mg/dL NormalTRIG 150-199 mg/dL Borderline highTRIG 200-500 mg/dL High TRIG greater than 500 mg/dL Very highStandard traceable to the Center for Disease Conrtrol and Prevention (CDC) test method. Urea nitrogen [Mass/volume] in Serum or PlasmaOrdered By: Henry Cross on 05-09-2022 Urea nitrogen [Mass/Vol] 11 mg/dL 7-25 [facility] Urine bacteria detection by automated methodOrdered By: Henry Cross on 05-09-2022 Bacteria Auto Ql (U) None seen None Seen [facility] Urine clarity by refractomet ry automatedOrdered By: Henry Cross on 05-09-2022 Clarity Refractometry automated (U) Clear Clear [facility] Urine glucose measurement by automated test strip (mass/volume)Ordered By: Henry Cross on 05-09-2022 Glucose Auto test strip (U) [Mass/Vol] Normal mg/dL Normal [facility] Urine hemoglobin detection b y automated test stripOrdered By: Henry Cross on 05-09-2022 Hemoglobin Auto test strip Ql (U) 1+ Negative [facility] Urine leukocyte esterase det ection by automated test stripOrdered By: Henry Cross on 05-09-2022 Leukocyte esterase Auto test strip Ql (U) 1+ Negative [facility] Urobilinogen Auto test strip (U) [Mass/Vol]Ordered By: Henry Cross on 05-09-2022 Urobilinogen (U) [Mass/Vol] Normal mg/dL Normal [facility] Vitamin D+Metabolites [Mass/ volume] in Serum or PlasmaOrdered By: Ji Smith on 05-09-2022 Vitamin D+Metabolites [Mass/Vol] 36.0 ng/mL 30-100 [facility] Comment on above: VITAMIN D STATUS 25( OH)VITAMIN D RANGE (ng/mL) Deficient <20 Insufficient 20 to <30Sufficient 30 to 100Reference: Sharmaine MF,Aye NC, Geremias SWEET, et al. Evaluation,treatment, and prevention of vitamin D deficiency; an Endocrine Society clinical practice guideline. JCEM. 2010; 96(7):1911-30. WBC Auto (Bld) [#/Vol]Ordere d By: Henry Cross on 05-09-2022 WBC (Bld) [#/Vol] 6.3 10*3/uL 3.8-11.6 [facility] pH Auto test strip (U)Ordere d By: Henry Cross on 05-09-2022 pH (U) 5.5 [pH] 5.0-9.[address] [facility] [address] HEAD WO CONon 03-18-2021 CT HEAD [...] herniation. No intraparenchymal or extra-axial hemorrhage. Normal hus/white differentiation. VENTRICLES/EXTRA-AXIAL SPACES: Normal for age. SINUSES/MASTOIDS: No paranasal sinus disease. Mastoid air cells are clear. MSK: No skull fractures. OTHER: No hyperdense intraluminal thrombus is seen. IMPRESSION: 1. No acute intracranial abnormality. No hemorrhage or mass effect. This study cannot exclude the presence of a concussion type injury. Electronically authenticated by: ATIYA GREWAL Date: 2021-03-17 22:52 Normal [facility] CBC AUTO DIFFon 06-10-2020 BASO # 0.1 103/ul Normal 0.0-0.1 [facility] [facility] Comment on above: Performed By: #### C BC #### [facility] [address] [place] [address] Kinjal Sherine Basophils/100 WBC (Bld) 0.5 % Normal 0.2-2.0 The [facility] Comment on above: Performed By: #### C BC #### [facility] [address] [place] [address] Kinjal Sherine EO # 0.2 103/ul Normal 0.0-0.7 The [facility] Comment on above: Performed By: #### C BC #### [facility] [address] [place] [address] Kinjal Sherine Eosinophils/100 WBC (Bld) 1.8 % Normal 0.9-7.0 The [facility] Comment on above: Performed By: #### C BC #### [facility] [address] [place], [place] [address] Kinjal Sherine Erythrocyte distribution width (RBC) [Ratio] 13.7 % Normal 11.0-15.0 The [facility] Comment on above: Performed By: #### C BC #### [facility] [address] [place], [place] [address] Kinjal Sherine Hematocrit (Bld) [Volume fraction] 38.2 % Normal 36.0-48.0 The [facility] Comment on above: Performed By: #### C BC #### [facility] [address] [place], [place] [address] Kinjalroverto Basurto Hemoglobin (Bld) [Mass/Vol] 11.9 g/dL Critically low 12.0-16.0 [facility] Comment on above: Performed By: #### C BC #### [facility] [address] [place] [address] Kinjalroverto Basurto IG # 0.03 10e3/ul Normal 0.00-0.03 [facility] Comment on above: Performed By: #### C BC #### [facility] [address] [place] [address] Kinjal Sherine IG % 0.3 % Normal 0.0-0.5 [facility] Comment on above: Performed By: #### C BC #### [facility] [address] [place] [address] Kinjal Sherine LYMPH # 1.8 103/ul Normal 1.2-3.8 [facility] Comment on above: Performed By: #### C BC #### [facility] [address] [place] [address] Kinjal Basurto Lymphocytes/100 WBC (Bld) 17.4 % Critically low 20.5-60.0 [facility] Comment on above: Performed By: #### C BC #### [facility] [address] [place] [address] Kinjal Basurto MANUAL DIFF REQ NO Normal [facility] Comment on above: Performed By: #### C BC #### [facility] [address] [place] [address] Kinjalroverto Basurto MCH (RBC) [Entitic mass] 27.0 pg Normal 26.7-34.0 [facility] Comment on above: Performed By: #### C BC #### [facility] [address] [place] [address] Kinjalroverto Basruto MCHC (RBC) [Mass/Vol] 31.2 g/dL Normal 29.9-35.2 [facility] Comment on above: Performed By: #### C BC #### [facility] [address] [place] [address] Kinjalroverto Basurto MCV (RBC) [Entitic vol] 86.8 fL Normal 81.0-99.0 [facility] Comment on above: Performed By: #### C BC #### [facility] [address] [place], [place] [address] Kinjal Basurto MONO # 0.3 103/ul Normal 0.3-0.8 [facility] Comment on above: Performed By: #### C BC #### [facility] [address] [id number] Kinjal Basurto Monocytes/100 WBC (Bld) 3.2 % Normal 1.7-12.0 [facility] Comment on above: Performed By: #### C BC #### [facility] [address] [place] [address] Kinjal Fosteren NEUT # 7.8 103/ul Critically high 1.4-6.5 [facility] Comment on above: Performed By: #### C BC #### [facility] [address] [place] [address] Kinjal Basurto Neutrophils/100 WBC (Bld) 76.8 % Critically high 43.0-75.0 [facility] Comment on above: Performed By: #### C BC #### [facility] [address] [place], [place] [address] Kinjal Basurto Platelet mean volume (Bld) [Entitic vol] 9.1 fL Critically low 9.5-13.5 [facility] Comment on above: Performed By: #### C BC #### [facility] [address] [place] [address] Kinjal Sherine PLT 350 103/ul Normal 150-450 The [facility] Comment on above: Performed By: #### C BC #### [facility] [address] [place] [address] Kinjal Sherine RBC 4.40 106/ul Normal 4.20-5.40 The [facility] Comment on above: Performed By: #### C BC #### [facility] [address] [place] [address] Kinjal Sherine WBC 10.1 103/ul Normal 4.0-11.0 The [facility] Comment on above: Performed By: #### C BC #### [facility] [address] [id number] [address] CHEST W CONon 06-10-2020 [...] ARELI RIVERA Date: 2020-06-10 03:43 Normal The [facility] CT CSPINE WO CONon CT CSPINE [...] Haylie VILLAR Date: 2020-06-10 01:09 Normal The [facility] CT HEAD WO CONon 06-10-2020 CT [...] ARELI RIVERA Date: 2020-06-10 01:01 Normal The [facility] DRUG SCREEN RAPID (URINE)on 06-10-2020 AMP Negative Normal NEGATIVE The [facility] Comment on above: Performed By: #### E RUR, DRUGRPD #### [facility] [address] [place] [address] Kinjal Sherine BAR Negative Normal NEGATIVE The [facility] Comment on above: Performed By: #### E RUR, DRUGRPD #### [facility] [address] [place] [address] Kinjal Sherine BUP Negative Normal NEGATIVE The [facility] Comment on above: Performed By: #### E RUR, DRUGRPD #### [facility] [address] [place] [address] Kinjal Sherine BZO Negative Normal NEGATIVE [facility] Comment on above: Performed By: #### E RUR, DRUGRPD #### [facility] [address] [place] [address] Kinjal Sherine CURTIS Negative Normal NEGATIVE The [facility] Comment on above: Performed By: #### E RUR, DRUGRPD #### [facility] [address] [place] [address] [facility] SEE BELOW Normal [facility] Comment on above: Result Comment: [...] Performed By: #### E RUR DRUGRPD #### [facility] [address] [place] [address] DRUG CUT HEADER DRUG CLASS TEST SYST EM CUT-OFF CONCENTRATIONS ARE FOLLOWS: Normal The [facility] Comment on above: Performed By: #### Mitchell PETERSEN DRUGRPD #### [facility] [address] [place] [address] Kinjal Sherine mAMP Negative Normal NEGATIVE The [facility] Comment on above: Performed By: #### Mitchell RUR DRUGRPD #### [facility] [address] [place] [address] Kinjal Sherine MTD Negative Normal NEGATIVE The [facility] Comment on above: Performed By: #### Mitchell PETERSEN DRUGRPD #### [facility] [address] [place] [address] Sherine OPI Positive Abnormal NEGATIVE The [facility] Comment on above: Performed By: #### Mitchell RUR DRUGRPD #### [facility] [address] [place] [address] Kinjal Sherine OXY Negative Normal NEGATIVE The [facility] Comment on above: Performed By: #### E RUR, DRUGRPD #### [facility] [address] [place] [address] PCP Negative Normal NEGATIVE The [facility] Comment on above: Performed By: #### E RUR, DRUGRPD #### [facility] [address] [place] [address] PPX Negative Normal NEGATIVE The [facility] Comment on above: Performed By: #### E RUR DRUGRPD #### [facility] [address] [place] [address] Kinjal Sherine TCA Negative Normal NEGATIVE [facility] Comment on above: Performed By: #### E RUR, DRUGRPD #### [facility] [address] [place] [address] Kinjal Sherine THC Negative Normal NEGATIVE [facility] Comment on above: Performed By: #### E RUR, DRUGRPD #### [facility] [address] [place] [address] Kinjal Sherine ER URINE PROFILEon 1 Bilirubin Ql (U) Negative Normal NEGATIVE [facility] Comment on above: Performed By: #### E RUR, DRUGRPD #### [facility] [address] [place] [address] Kinjal Sherine Clarity (U) CLEAR Normal CLEAR [facility] Comment on above: Performed By: #### E RUR, DRUGRPD #### [facility] [address] [place] [address] Kinjal Sherine Color (U) LT. YELLOW Normal YELLOW [facility] Comment on above: Performed By: #### E RUR, DRUGRPD #### [facility] [address] [place] [address] Kinjal Basurto ERUAHD A micrscopic examina tion will be performed if indicated. Normal The [facility] Comment on above: Performed By: #### E RUR, DRUGRPD #### [facility] [address] [place] [address] Kinjal Sherine Glucose Ql (U) Negative Normal NEGATIVE The [facility] Comment on above: Performed By: #### E RUR, DRUGRPD #### [facility] [address] [place] [address] Kinjal Sherine Hemoglobin Ql (U) Negative Normal NEGATIVE [facility] Comment on above: Performed By: #### E RUR, DRUGRPD #### [facility] [address] [place] [address] Kinjal Sherine Ketones Ql (U) Negative Normal NEGATIVE The [facility] Comment on above: Performed By: #### E RUR, DRUGRPD #### [facility] [address] [place], [place] [address] Kinjal Sherine LEUKOCYTES Negative Normal NEGATIVE [facility] Comment on above: Performed By: #### Mitchell PETERSEN DRUGRPD #### [facility] [address] [place], [place] [address] Kinjal Basurto Nitrite Ql (U) Negative Normal NEGATIVE The [facility] Comment on above: Performed By: #### Mitchell PETERSEN DRUGRPD #### [facility] [address] [place], [place] [address] Kinjalroverto Basurto pH (U) 7.5 [pH] Normal 5-9 The [facility] Comment on above: Performed By: #### Mitchell PETERSEN DRUGHARRYD #### [facility] [address] [place] [address] Kinjal Basurto SPEC GRAVITY 1.010 Normal 1.005-<=1.02 5 [facility] Comment on above: Performed By: #### Mitchell PETERSEN DRUGRPD #### [facility] [address] [place] [address] Kinjal Basurto UA PROTEIN Negative Normal NEGATIVE/ TRACE The [facility] Comment on above: Performed By: #### Mitchell PETERSEN DRUGCARLOS A #### [facility] [address] [place], [place] [address] Kinjal Basurto UR MICRO IND NOT INDICATED Normal [facility] Comment on above: Performed By: #### Mitchell PETERSEN DRUGHARRYD #### [facility] [address] [place], [place] [address] Kinjal Basurto Urobilinogen Qn (U) 0.2 {Jazmine'U}/dL Normal 0.2 - 1. 0 [facility] Comment on above: Performed By: #### Mitchell PETERSEN DRUGHARRYD #### [facility] [address] [place], [place] [address] Kinjal Basurto ETHANOL (BLD ALC)on 06-11-19 21 ALC NOTE NOTE: 80 mg/dl is th e legal limit for a blood alcohol level Normal [facility] Comment on above: Performed By: #### Mitchell TH ####[facility] [address] [place] [address]Psdsit Karen Ethanol [Mass/Vol] 200 mg/dL Normal [facility] Comment on above: Performed By: #### E ####[facility] [address] [place], [place] [address]QvyakrKinjal Basurto PROF 14(COMP METB)on 021 Albumin [Mass/Vol] 3.8 g/dL Normal 3.5-5.0 [facility] Comment on above: Performed By: #### C MP #### [facility] [address] [id number] Kinjal Sherine Albumin/Globulin [Mass ratio] 1.2 {ratio} Normal [facility] Comment on above: Performed By: #### C MP #### [facility] [address] [place], [place] [address] Kinjal Sherine ALP [Catalytic activity/Vol] 54 U/L Normal 38-126 [facility] Comment on above: Performed By: #### C MP #### [facility] [address] [place] [address] Kinjal Sherine ALT [Catalytic activity/Vol] 19 U/L Normal 9-52 [facility] Comment on above: Performed By: #### C MP #### [facility] [address] [place], [place] [address] Kinjal Sherine Anion gap [Moles/Vol] 12.2 mmol/L Normal [facility] Comment on above: Performed By: #### C MP #### [facility] [address] [place], [place] [address] Kinjal Sherine AST [Catalytic activity/Vol] 13 U/L Critically low 14-36 The [facility] Comment on above: Performed By: #### C MP #### [facility] [address] [place], [place] [address] Kinjal Sherine Bilirubin [Mass/Vol] 0.3 mg/dL Normal 0.2-1.3 The [facility] Comment on above: Performed By: #### C MP #### [facility] [address] [place], [place] [address] Kinjal Sherine Calcium [Mass/Vol] 8.4 mg/dL Normal 8.4-10.2 The [facility] Comment on above: Performed By: #### C MP #### [facility] [address] [place] [address] Kinjal Sherine Chloride [Moles/Vol] 109 mmol/L Critically high 98-107 The [facility] Comment on above: Performed By: #### C MP #### [facility] [address] [place] [address] Kinjal Sherine CO2 [Moles/Vol] 27.5 mmol/L Normal 22.0-30.0 [facility] Comment on above: Performed By: #### C MP #### [facility] [address] [place] [address] Kinjal Sherine Creatinine [Mass/Vol] 0.73 mg/dL Normal 0.52-1.04 The [facility] Comment on above: Performed By: #### C MP #### [facility] [address] [place] [address] Kinjal Sherine EGFR-AF [place] >60 Normal >=60 [facility] Comment on above: Performed By: #### C MP #### [facility] [address] [place] [address] Kinjal Sherine EGFR-NON AF [place] >60 Normal >=60 The [facility] Comment on above: Performed By: #### C MP #### [facility] [address] [place] [address] Kinjal Sherine Globulin (S) [Mass/Vol] 3.3 g/dL Normal The [facility] Comment on above: Performed By: #### C MP #### [facility] [address] [place] [address] Kinjal Sherine Glucose [Mass/Vol] 85 mg/dL Normal 74-106 The [facility] Comment on above: Performed By: #### C MP #### [facility] [address] [place] [address] Kinjal Sherine Potassium [Moles/Vol] 3.7 mmol/L Normal 3.4-5.0 The [facility] Comment on above: Performed By: #### C MP #### [facility] [address] [place], [place] [address] Kinjal Basurto Protein [Mass/Vol] 7.1 g/dL Normal 6.1-8.2 The [facility] Comment on above: Performed By: #### C MP #### [facility] [address] [place], [place] [address] Kinjal Basurto Sodium [Moles/Vol] 145 mmol/L Normal 137-145 [facility] Comment on above: Performed By: #### C MP #### [facility] [address] [place], [place] [address] Kinjal Basurto Urea nitrogen [Mass/Vol] 9.0 mg/dL Normal 7.0-17.0 The [facility] Comment on above: Performed By: #### C MP #### [facility] [address] [id number] Kinjal Basurto Urea nitrogen/Creatinine [Mass ratio] 12.3 mg/mg Normal [facility] Comment on above: Performed By: #### C MP #### [facility] [address] [id number] Kinjal Basurto Rapid Covid-19 PCR (CVDRPD)o n 06-10-2020 SARS-CoV-2 (COVID-19) RNA AIDEE+probe Ql (Unsp spec) Not detected Normal NOT DETECTED The [facility] Comment on above: Result Comment: This test is not yet approved or cleared by the [place] Food and Drug Administration (FDA). This test was developed by [facility], [place], [place]. The performance characteristics of this test were validated by The [facility]. The results are not intended to be used as the sole means for clinical diagnosis or patient management decisions. The [facility] is authorized under Clinical Laboratory Improvement Amendments (CLIA) to perform high- complexity testing. When diagnostic testing is negative, the possibility of a false negative should be considered in the context of a patient's recent exposures and the presence of clinical signs and symptoms consistent with SARS-CoV-2. Performed By: #### C VDRPD ####[facility] [address] [place], [place] [address] Sherine XR CLAVICLE LTon 06-10-2020 XR CLAVICLE LT [...] Date: 2020-06-10 01:50 Normal [facility] XR SHOULDER LT 2V or [...] the left glenohumeral joint. Electronically authenticated by: JAMES ARMSTRONG Date: 2020-06-10 01:45 Normal [facility] Cult, Bloodon 2018 Cult, Blood Specimen Description .BLOOD Special Requests RT HAND Culture NO GROWTH 6 DAYS Report Status FINAL 2018 [facility] Comment on above: Performed By: #### B CUL2 ####[facility] [id number] Lab Director: Reed Mckeon MD Cult,Bloodon 2018 Cult,Blood Specimen Description .BLOOD Special Requests L ARM 10CC Culture NO GROWTH 6 DAYS Report Status FINAL 2018 [facility] Comment on above: Performed By: #### B C ####[facility] [address] [place], [place] [id number] lab Director: Reed Mckeon MD Basic Metab w/rfx MGon 04-16 (cont.) Normal [facility] Comment on above: Result Comment: Aver age GFR for 20-29 years old: 116 mL/min/1.73sq m Chronic Kidney Disease: <60 mL/min/1.73sq m Kidney failure: <15 mL/min/1.73sq m eGFR calculated using average adult body mass. Additional eGFR calculator available at: http://www.[employer]/multiple_crcl_2012.htm Performed By: #### C BC, BMPX ####[facility] [address] [place], [place] [phone] Director: Reed Mckeon MD Anion gap molar conc 13 mmol/L Normal 9-17 [facility] Comment on above: Performed By: #### C BC, BMPX ####[facility] [address] [place], [place] [phone] Director: Reed Mckeon MD Calcium mass conc 8.7 mg/dL Normal 8.6-10.4 [facility] Comment on above: Performed By: #### C BC, BMPX ####[facility] [address] [place], [place] [phone] Director: Reed Mckeon MD Chloride molar conc 110 mmol/L High 98-107 [facility] Comment on above: Performed By: #### C BC, BMPX ####[facility] [address] [place], [place] [phone] Director: Reed Mckeon MD CO2 molar conc 18 mmol/L Low 20-31 [facility] Comment on above: Performed By: #### C BC, BMPX ####[facility] [address] [place], [place] [phone])[phone] Director: Reed Mckeon MD Creatinine mass conc 0.49 mg/dL Low 0.50-0.90 [facility] Comment on above: Performed By: #### C BC, BMPX ####[facility] [address] [place], [place] [phone] Director: Reed Mckeon MD GFR, Amer >60 Normal >60 [facility] Comment on above: Performed By: #### C BC, BMPX ####[facility] [address] [place], [place] [phone] Director: Reed Mckeon MD GFR,non Amer >60 Normal >60 [facility] Comment on above: Performed By: #### C BC, BMPX ####[facility] [address] [place], [place] [phone] Director: Reed Mckeon MD Glucose mass conc 74 mg/dL Normal 70-99 [facility] Comment on above: Performed By: #### C BC, BMPX ####[facility] [address] [place], [place] [phone] Director: Reed Mckeon MD Potassium molar conc 4.2 mmol/L Normal 3.7-5.3 [facility] Comment on above: Performed By: #### C BC, BMPX ####[facility] [address] [place], [place] [phone] Director: Reed Mckeon MD Sodium molar conc 141 mmol/L Normal 135-144 [facility] Comment on above: Performed By: #### C BC, BMPX ####[facility] [address] [place], [place] [phone] Director: Reed Mckeon MD Urea nitrogen mass conc 6 mg/dL Normal 6-20 [facility] Comment on above: Performed By: #### C BC, BMPX ####[facility] [address] [place], [place] [phone] Director: Reed Mckeon MD BUN/CRE Ratio NOT REPORTED Normal 9-20 [facility] Comment on above: Performed By: #### C BC, BMPX ####[facility] [address] [place] [address] lab Director: Reed Mckeon MD Staging: NOT REPORTED Normal [facility] Comment on above: Performed By: #### C BC, BMPX ####[facility] [address]ug[address] [place] [address] lab Director: Reed Mckeon MD CBCon 04-16-2018 Erythrocyte distribution width Ratio (RBC) 12.9 % Normal 11.8-14.4 [facility] Comment on above: Performed By: #### C BC, BMPX ####[facility] Rfkhmxxnwchh[address] [place], [place] [phone] Director: Reed Mckeon MD Hematocrit Volume Fraction (Bld) 33.9 % Low 36.3-47.1 [facility] Comment on above: Performed By: #### C BC, BMPX ####[facility] Xvbszbohdaql8[address] [place], [place] [phone] Director: Reed Mckeon MD Hemoglobin mass conc (Bld) 10.6 g/dL Low 11.9-15.1 [facility] Comment on above: Performed By: #### C BC, BMPX ####[facility] [address]vrgwv[address] [place], [place] [phone] Director: Reed Mckeon MD MCH Entitic mass (RBC) 28.3 pg Normal 25.2-33.5 [facility] Comment on above: Performed By: #### C BC, BMPX ####[facility] [address] [place], [place] [phone] Director: Reed Mckeon MD MCHC mass conc (RBC) 31.3 g/dL Normal 28.4-34.8 [facility] Comment on above: Performed By: #### C BC, BMPX ####[facility] [address]prqkwzcgtcw6[address] [place], [place] [phone] Director: Reed Mckeon MD MCV Entitic volume (RBC) 90.6 fL Normal 82.6-102.9 [facility] Comment on above: Performed By: #### C BC, BMPX ####[facility] [address] [place], [place] [phone] Director: Reed Mckeon MD NRBC Automated 0.0 per 100 WBC Normal 0.0 [facility] Comment on above: Performed By: #### C BC, BMPX ####[facility] [address] [place] [address] Lab Director: Reed Mckeon MD Platelet mean volume Entitic volume (Bld) 9.8 fL Normal 8.1-13.5 [facility] Comment on above: Performed By: #### C BC, BMPX ####[address] [address] Lab Director: Reed Mckeon MD Platelets #/vol (Bld) 257 10*3/uL Normal 138-453 [facility] Comment on above: Performed By: #### C BC, BMPX ####[facility] [address]xs[address] [place], [place] [phone] Director: Reed Mckeon MD RBC #/vol (Bld) 3.74 10*6/uL Low 3.95-5.11 [facility] Comment on above: Performed By: #### C BC, BMPX ####[facility] [address]zxy[address] [place], [place] [phone] Director: Reed Mckeon MD WBC #/vol (Bld) 5.8 10*3/uL Normal 3.5-11.3 [facility] Comment on above: Performed By: #### C BC, BMPX ####[facility] [address] [place], [place] [phone] Director: Reed Mckeon MD Cult,Respiratoryon 9 Cult,Respiratory Specimen Description .EXPECTORATED SPUTUM Special Requests NOT REPORTED Direct Exam >10 EPITHELIAL CELLS/LPF: SPECIMEN IS CONTAMINATED WITH ORAL PHARYNGEAL YOGESH AND IS UNACCEPTABLE FOR BACTERIAL CULTURE. PLEASE SUBMIT ANOTHER SPECIMEN. EVERETTE Mathews NOTIFIED Culture NOT REPORTED Report Status FINAL 04/16/2018 Normal [facility] Comment on above: Performed By: #### R ESPC ####[address] [phone] Lab Director: Reed Mckeon MD Troponinon 04-16-2018 Troponin I.cardiac mass conc ng/mL Normal 0-14 [facility] Comment on above: Result Comment: High Sensitivity Troponin values cannot be compared with other Troponin methodologies. Patients with high levels of Biotin oral intake (i.e >5mg/day) may have falsely decreased Troponin levels. Samples collected within 8 hours of biotin intake may require additional information for diagnosis. Performed By: #### T ROPI ####[address] [phone] lab Director: Reed Mckeon MD Gram Stainon 04-15-2018 Microscopic observation Gram stain Nom (Unsp spec) Specimen Description .EXPECTORATED SPUTUM Special Requests NOT REPORTED Direct Exam DUPLICATE ORDER Report Status FINAL 04/15/2018 Normal [facility] Comment on above: Performed By: #### P PPVS #### [address] [place], [place] [phone] HCG Screen, Bloodon 04-16-19 19 HCG Qn Negative Normal NEG [facility] Comment on above: Result Comment: Spec imens with hCG levels near the threshold of the test (25 mIU/mL) may give a negative or indeterminate result. In such cases, another test should be performed with a new specimen in 48-72 hours. If early is suspected clinically in this setting, correlation with quantitative serum b-hCG level is suggested. [facility] has confirmed the use of plasma for this test. This has not been cleared or approved by the U.S. Food and Drug Administration. The FDA has determined that such clearance is not necessary. Performed By: #### P PPVS #### [address] [place] [address] Legionella Ag, Uron 04-16-19 19 Legionella Ag, [...] this test. Report Status FINAL 04/15/2018 Normal [facility] Comment on above: Performed By: #### U LAG ####[address] [phone] Director: Reed Mckeon MD Resp Viral Panelon 9 Adenovirus Not Detected Normal [facility] Comment on above: Performed By: #### P PPVS #### [address] [address] Bordetella pertussis Not Detected Normal [facility] Comment on above: Performed By: #### P PPVS #### [address] [address] Chlamyd.pneumoniae Not Detected Normal [facility] Comment on above: Performed By: #### P PPVS #### [address] [address] Coronavirus 229E Not Detected Normal [facility] Comment on above: Performed By: #### P PPVS #### [address] [address] Coronavirus HKU1 Not Detected Normal [facility] Comment on above: Performed By: #### P PPVS #### [address] [address] Coronavirus NL63 Not Detected Normal [facility] Comment on above: Performed By: #### P PPVS #### [facility] [address] [place] [address] Coronavirus OC43 Not Detected Normal [facility] Comment on above: Performed By: #### P PPVS #### [facility] [address] [place] [address] Human Metapneumo Not Detected Normal [facility] Comment on above: Performed By: #### P PPVS #### [facility] [address] [place] [address] Influenza A Not Detected Normal [facility] Comment on above: Performed By: #### P PPVS #### [facility] [address] [place] [address] Influenza B Not Detected Normal [facility] Comment on above: Performed By: #### P PPVS #### [facility] [address] [place] [address] Mycoplas.pneumoniae Not Detected Normal [facility] Comment on above: Result Comment: Perf ormed by multiplexed nucleic acid assay. Performed By: #### P PPVS #### [facility] [address] [place] [address] Parainfluenza 1 Not Detected Normal [facility] Comment on above: Performed By: #### P PPVS #### [facility] [address] [place] [address] Parainfluenza 2 Not Detected Normal [facility] Comment on above: Performed By: #### P PPVS #### [facility] [address] [place] [address] Parainfluenza 3 Not Detected Normal [facility] Comment on above: Performed By: #### P PPVS #### [address] [address] Parainfluenza 4 Not Detected Normal [facility] Comment on above: Performed By: #### P PPVS #### [address] [address] Resp Syncytial Virus Not Detected Normal [facility] Comment on above: Performed By: #### P PPVS #### [address] [address] Rhino/Enterovirus Not Detected Normal [facility] Comment on above: Performed By: #### P PPVS #### [address] [address] Influenza A H1 NOT REPORTED Normal [facility] Comment on above: Performed By: #### P PPVS #### [address] [address] Influenza A H1-2009 NOT REPORTED Normal [facility] Comment on above: Performed By: #### P PPVS #### [address] [address] Influenza A H3 NOT REPORTED Normal [facility] Comment on above: Performed By: #### P PPVS #### [address] [address] Source: .NASOPHARYNGEAL SWAB Normal [facility] Comment on above: Performed By: #### P PPVS #### [address] [address] Strep pneum Ag,CSF/Uron 03-0 Strep pneum Ag,CSF/Ur Specimen Descripti on .CLEAN CATCH URINE Special Requests NOT REPORTED Direct Exam NEGATIVE: Strep pneumoniae antigen not detected Report Status FINAL 04/15/2018 Normal [facility] Comment on above: Performed By: #### S PAG ####[facility] [address] [place] [address] Lab Director: Reed Mckeon MD Troponinon 04-15-2018 Troponin I.cardiac mass conc NOT REPORTED Normal <0.03 [facility] Comment on above: Performed By: #### T ROPI ####[facility] [address] [place] [address] Lab Director: Reed Mckeon MD Troponin I.cardiac mass conc ng/mL Normal 0-14 [facility] Comment on above: Result Comment: High Sensitivity Troponin values cannot be compared with other Troponin methodologies. Patients with high levels of Biotin oral intake (i.e >5mg/day) may have falsely decreased Troponin levels. Samples collected within 8 hours of biotin intake may require additional information for diagnosis. Performed By: #### P PPVS #### [facility] [address] [place] [address] Troponin I.cardiac mass conc NOT REPORTED Normal <0.03 [facility] Comment on above: Performed By: #### P PPVS #### [facility] [address] [place] [address] XR CHEST PORTABLEon 04-16-19 XR CHEST PORTABLE EXAMINATION: SINGLE XRAY VIEW OF THE CHEST 04/15/2018 3:19 pm COMPARISON: 04/02/2018 HISTORY: ORDERING SYSTEM PROVIDED HISTORY: transferred from hospital for [facility] due to PNA. POD#3 s/p lap sleeve gastrectomy. TECHNOLOGIST PROVIDED HISTORY: transferred from hospital for behavioral medicine due to PNA. POD#3 s/p lap sleeve [...] Brando Agustin MD 04/15/18 Final result Normal [facility] FL ESOPHAGRAMon 04-14-2018 FL ESOPHAGRAM EXAMINATION: SINGLE [...] persistent dysphagia and burning sensation. FINDINGS: Fluoroscopic dope house operator helper images were obtained of the upper [...] Steve Topete MD 04/14/18 Final result Normal [facility] Basic Metabolic Profon 04-13 (cont.) Normal [facility] Comment on above: Result Comment: Aver age GFR for 20-29 years old: 116 mL/min/1.73sq m Chronic Kidney Disease: <60 mL/min/1.73sq m Kidney failure: <15 mL/min/1.73sq m eGFR calculated using average adult body mass. Additional eGFR calculator available at: http://www.[employer]/multiple_crcl_2011.htm Performed By: #### P PPVS #### [address] [place] [address] Anion gap molar conc 11 mmol/L Normal 9-17 [facility] Comment on above: Performed By: #### P PPVS #### [facility] [address] [place] [address] Calcium mass conc 8.8 mg/dL Normal 8.6-10.4 [facility] Comment on above: Performed By: #### P PPVS #### [facility] [address] [place] [address] Chloride molar conc 104 mmol/L Normal 98-107 [facility] Comment on above: Performed By: #### P PPVS #### [address] [address] CO2 molar conc 24 mmol/L Normal 20-31 [facility] Comment on above: Performed By: #### P PPVS #### [facility] [address] [place] [address] Creatinine mass conc 0.68 mg/dL Normal 0.50-0.90 [facility] Comment on above: Performed By: #### P PPVS #### [address] [address] GFR, Amer >60 Normal >60 [facility] Comment on above: Performed By: #### P PPVS #### [facility] [address] [place] [address] GFR,non Amer >60 Normal >60 [facility] Comment on above: Performed By: #### P PPVS #### [facility] [address] [place] [address] Glucose mass conc 90 mg/dL Normal 70-99 [facility] Comment on above: Performed By: #### P PPVS #### [address] [address] Potassium molar conc 4.4 mmol/L Normal 3.7-5.3 [facility] Comment on above: Performed By: #### P PPVS #### [address] [address] Sodium molar conc 139 mmol/L Normal 135-144 [facility] Comment on above: Performed By: #### P PPVS #### [address] [address] Urea nitrogen mass conc 5 mg/dL Low 6-20 [facility] Comment on above: Performed By: #### P PPVS #### [address] [address] BUN/CRE Ratio NOT REPORTED Normal - [facility] Comment on above: Performed By: #### P PPVS #### [address] [address] Staging: NOT REPORTED Normal [facility] Comment on above: Performed By: #### P PPVS #### [address] [address] CBCon 04-13-2018 Erythrocyte distribution width Ratio (RBC) 12.9 % Normal 11.8-14.4 [facility] Comment on above: Performed By: #### P PPVS #### [address] [address] Hematocrit Volume Fraction (Bld) 36.8 % Normal 36.3-47.1 [facility] Comment on above: Performed By: #### P PPVS #### [address] [address] Hemoglobin mass conc (Bld) 11.7 g/dL Low 11.9-15.1 [facility] Comment on above: Performed By: #### P PPVS #### [address] [address] MCH Entitic mass (RBC) 28.3 pg Normal 25.2-33.5 [facility] Comment on above: Performed By: #### P PPVS #### [address] [address] MCHC mass conc (RBC) 31.8 g/dL Normal 28.4-34.8 [facility] Comment on above: Performed By: #### P PPVS #### [address] [address] MCV Entitic volume (RBC) 88.9 fL Normal 82.6-102.9 [facility] Comment on above: Performed By: #### P PPVS #### [address] [address] NRBC Automated 0.0 per 100 WBC Normal 0.0 [facility] Comment on above: Performed By: #### P PPVS #### [address] [address] Platelet mean volume Entitic volume (Bld) 10.1 fL Normal 8.1-13.5 [facility] Comment on above: Performed By: #### P PPVS #### [address] [address] Platelets #/vol (Bld) 306 10*3/uL Normal 138-453 [facility] Comment on above: Performed By: #### P PPVS #### [address] [address] RBC #/vol (Bld) 4.14 10*6/uL Normal 3.95-5.11 [facility] Comment on above: Performed By: #### P PPVS #### [address] [address] WBC #/vol (Bld) 8.1 10*3/uL Normal 3.5-11.3 [facility] Comment on above: Performed By: #### P PPVS #### [facility] [address] [place], [place] [phone] FL ESOPHAGRAMon 04-13-2018 FL ESOPHAGRAM EXAMINATION: SINGLE [...] Jordan Mejia MD 04/13/18 Final result Normal [facility] Basic Metabolic Profon 04-12 (cont.) Normal [facility] Comment on above: Result Comment: Aver age GFR for 20-29 years old: 116 mL/min/1.73sq m Chronic Kidney Disease: <60 mL/min/1.73sq m Kidney failure: <15 mL/min/1.73sq m eGFR calculated using average adult body mass. Additional eGFR calculator available at: http://www.[employer]/multiple_crcl_2012.htm Performed By: #### C BC, BMP #### [facility] [address] [place] [address] Patient Relations Coordinator: Reed Mckeon MD Anion gap molar conc 16 mmol/L Normal 9-17 [facility] Comment on above: Performed By: #### C BC, BMP #### [facility] [address] [place], [place] [phone] Patient Relations Coordinator: Reed Mckeon MD Calcium mass conc 8.9 mg/dL Normal 8.6-10.4 [facility] Comment on above: Performed By: #### C BC, BMP #### [facility] [address] [place] [address] Patient Relations Coordinator: Reed Mckeon MD Chloride molar conc 108 mmol/L High 98-107 [facility] Comment on above: Performed By: #### C BC, BMP #### [facility] [address] [place] [address] Patient Relations Coordinator: Reed Mckeon MD CO2 molar conc 19 mmol/L Low 20-31 [facility] Comment on above: Performed By: #### C BC, BMP #### [facility] [address] [place] [address] Patient Relations Coordinator: Reed Mckeon MD Creatinine mass conc 0.62 mg/dL Normal 0.50-0.90 [facility] Comment on above: Performed By: #### C BC, BMP #### [facility] [address] [place] [address] Patient Relations Coordinator: Reed Mckeon MD GFR, Amer >60 Normal >60 [facility] Comment on above: Performed By: #### C BC, BMP #### [facility] [address] [place] [address] Patient Relations Coordinator: Reed Mckeon MD GFR,non Amer >60 Normal >60 [facility] Comment on above: Performed By: #### C BC, BMP #### [facility] [address] [place] [address] Patient Relations Coordinator: Reed Mckeon MD Glucose mass conc 124 mg/dL High 70-99 [facility] Comment on above: Performed By: #### C BC, BMP #### [facility] [address] [place] [address] Patient Relations Coordinator: Reed Mckeon MD Potassium molar conc 4.2 mmol/L Normal 3.7-5.3 [facility] Comment on above: Performed By: #### C BC, BMP #### [facility] [address] [place] [address] Patient Relations Coordinator: Reed Mckeon MD Sodium molar conc 143 mmol/L Normal 135-144 [facility] Comment on above: Performed By: #### C BC, BMP #### [facility] [address] [place] [address] Patient Relations Coordinator: Reed Mckeon MD Urea nitrogen mass conc 8 mg/dL Normal -20 [facility] Comment on above: Performed By: #### C BC, BMP #### [facility] [address] [place] [address] Patient Relations Coordinator: Reed Mckeon MD BUN/CRE Ratio NOT REPORTED Normal - [facility] Comment on above: Performed By: #### C BC, BMP #### [facility] [address] [place] [address] Patient Relations Coordinator: Reed Mckeon MD Staging: NOT REPORTED Normal [facility] Comment on above: Performed By: #### C BC, BMP #### [facility] [address] [place] [address] Patient Relations Coordinator: Reed Mckeon MD CBCon 04-12-2018 Erythrocyte distribution width Ratio (RBC) 12.6 % Normal 11.8-14.4 [facility] Comment on above: Performed By: #### C BC, BMP #### [facility] [address] [place] [address] Patient Relations Coordinator: Reed Mckeon MD Hematocrit Volume Fraction (Bld) 44.2 % Normal 36.3-47.1 [facility] Comment on above: Performed By: #### C BC, BMP #### [facility] [address] [place] [address] Patient Relations Coordinator: Reed Mckeon MD Hemoglobin mass conc (Bld) 13.8 g/dL Normal 11.9-15.1 [facility] Comment on above: Performed By: #### C BC, BMP #### [address] [address] Patient Relations Coordinator: Reed Mckeon MD MCH Entitic mass (RBC) 28.4 pg Normal 25.2-33.5 [facility] Comment on above: Performed By: #### C BC, BMP #### [address] [address] Patient Relations Coordinator: Reed Mckeon MD MCHC mass conc (RBC) 31.2 g/dL Normal 28.4-34.8 [facility] Comment on above: Performed By: #### C BC, BMP #### [address] [address] Patient Relations Coordinator: Reed Mckeon MD MCV Entitic volume (RBC) 90.9 fL Normal 82.6-102.9 [facility] Comment on above: Performed By: #### C BC, BMP #### [address] [address] Patient Relations Coordinator: Reed Mckeon MD NRBC Automated 0.0 per 100 WBC Normal 0.0 [facility] Comment on above: Performed By: #### C BC, BMP #### [address] [address] Patient Relations Coordinator: Reed Mckeon MD Platelet mean volume Entitic volume (Bld) 10.2 fL Normal 8.1-13.5 [facility] Comment on above: Performed By: #### C BC, BMP #### [address] [address] Patient Relations Coordinator: Reed Mckeon MD Platelets #/vol (Bld) 299 10*3/uL Normal 138-453 [facility] [place] [facility] Comment on above: Performed By: #### C BC, BMP #### [facility] [address] [place] [address] Patient Relations Coordinator: Reed Mckeon MD RBC #/vol (Bld) 4.86 10*6/uL Normal 3.95-5.11 [facility] Comment on above: Performed By: #### C BC, BMP #### [facility] [address] [place] [address] Patient Relations Coordinator: Reed Mckeon MD WBC #/vol (Bld) 18.0 10*3/uL High 3.5-11.3 [facility] Comment on above: Performed By: #### C BC, BMP #### [facility] [address] [place] [address] Patient Relations Coordinator: Reed Mckeon MD Surgical Pathologyon 019 Surgical Pathology (NOTE) [id number] [facility] ANATOMIC PATHOLOGY [address] [place] [phone] SURGICAL PATHOLOGY CONSULTATION Patient Name: ANTOINETTE RECIO [facility] Rec: [id number] Path Number: [id number] Collected: 04/12/2018 Received: 04/12/2018 Reported: 04/13/2018 13:37 [...] with no areas of granularity or masses. Digital Sales Manager sections 1cs. tm Microscopic Description The gastric mucosa shows intact architecture and no active or chronic inflammation. There is no histological evidence for Helicobacter. There is no intestinal metaplasia or dysplasia. The submucosa and muscularis propria show no histologic abnormality. Normal [facility] Comment on above: Performed By: #### P PPVS #### [address] [address] Nicotineon 04-08-2018 4-EZ-Kraeyits <2 Normal [facility] Comment on above: Performed By: #### C BC, PT, PTT, BMP #### [facility] [address] [place] [address] Patient Relations Coordinator: Reed Mckeon MD #### ANICOT #### [facility] [address] [place], [place] [id number] Patient Relations Coordinator: Eduin Alvarez MD Cotinine <2 Normal [facility] Comment on above: Performed By: #### C BC, PT, PTT, BMP #### [facility] [address] [place] [address] Patient Relations Coordinator: Reed Mckeon MD #### ANICOT #### [facility] [address] [place] [address] Patient Relations Coordinator: Eduin Alvarez MD Nicotine <2 [facility] Comment on above: Result Comment: [...] positive. Test developed and characteristics determined by [facility]. See Compliance Statement B: [employer]/ Performed by [facility], [address] [place] [id number] [email or web address], Eduin Alvarez MD, Lab. Director Performed By: #### C BC, PT, PTT, BMP #### [address] [id number] Patient Relations Coordinator: Reed Mckeon MD #### ANICOT #### [address] [address] Patient Relations Coordinator: Eduin Alvarez MD APTTon 04-02-2018 aPTT Coag time (Bld) 24.7 s Normal 20.5-30.5 [facility] Comment on above: Performed By: #### C BC, PT, PTT, BMP #### [address] [id number] Patient Relations Coordinator: Reed Mckeon MD #### ANICOT #### [address] [address] Patient Relations Coordinator: Eduin Alvarez MD Basic Metabolic Profon 04-02 (cont.) [facility] Comment on above: Result Comment: Aver age GFR for 20-29 years old: 116 mL/min/1.73sq m Chronic Kidney Disease: <60 mL/min/1.73sq m Kidney failure: <15 mL/min/1.73sq m eGFR calculated using average adult body mass. Additional eGFR calculator available at: http://www.[employer].com/multiple_crcl_2012.htm Performed By: #### C BC, PT, PTT, BMP #### [address] [id number] Patient Relations Coordinator: Reed Mckeon MD #### ANICOT #### [address] [address] Patient Relations Coordinator: Eduin Alvarez MD Anion gap molar conc 15 mmol/L Normal 9-17 [facility] Comment on above: Performed By: #### C BC, PT, PTT, BMP #### [address] [address] Patient Relations Coordinator: Reed Mckeon MD #### ANICOT #### [facility] [address], [place] [id number] Patient Relations Coordinator: Eduin Alvarez MD Calcium mass conc 9.6 mg/dL Normal 8.6-10.4 [facility] Comment on above: Performed By: #### C BC, PT, PTT, BMP #### [address] [id number] Patient Relations Coordinator: Reed Mckeon MD #### ANICOT #### [facility] [address], [place] [id number] Patient Relations Coordinator: Eduin Alvarez MD Chloride molar conc 102 mmol/L Normal 98-107 [facility] Comment on above: Performed By: #### C BC, PT, PTT, BMP #### [address] [address] Patient Relations Coordinator: Reed Mckeon MD #### ANICOT #### [facility] [address], [place] [id number] Patient Relations Coordinator: Eduin Alvarez MD CO2 molar conc 23 mmol/L Normal 20-31 [facility] Comment on above: Performed By: #### C BC, PT, PTT, BMP #### [address] [address] Patient Relations Coordinator: Reed Mckeon MD #### ANICOT #### [facility] [address], [place] [id number] Patient Relations Coordinator: Eduin Alvarez MD Creatinine mass conc 0.62 mg/dL Normal 0.50-0.90 [facility] Comment on above: Performed By: #### C BC, PT, PTT, BMP #### [facility] [address] [place] [address] Patient Relations Coordinator: Reed Mckeon MD #### ANICOT #### [facility] [address] [place] [address] Patient Relations Coordinator: Eduin Alvarez MD GFR, Amer >60 Normal >60 [facility] Comment on above: Performed By: #### C BC, PT, PTT, BMP #### [address] [address] Patient Relations Coordinator: Reed Mckeon MD #### ANICOT #### [facility] [address], [place] [id number] Patient Relations Coordinator: Eduin Alvarez MD GFR,non Amer >60 Normal >60 [facility] Comment on above: Performed By: #### C BC, PT, PTT, BMP #### [address] [address] Patient Relations Coordinator: Reed Mckeon MD #### ANICOT #### [facility] [address], [place] [id number] Patient Relations Coordinator: Eduin Alvarez MD Glucose mass conc 86 mg/dL Normal 70-99 [facility] Comment on above: Performed By: #### C BC, PT, PTT, BMP #### [facility] [address] [place] [address] Patient Relations Coordinator: Reed Mckeon MD #### ANICOT #### [facility] [address], [place] [id number] Patient Relations Coordinator: Eduin Alvarez MD Potassium molar conc 4.2 mmol/L Normal 3.7-5.3 [facility] Comment on above: Performed By: #### C BC, PT, PTT, BMP #### [address] [address] Patient Relations Coordinator: Reed Mckeon MD #### ANICOT #### [facility] [address], [place] [id number] Patient Relations Coordinator: Eduin Alvarez MD Sodium molar conc 140 mmol/L Normal 135-144 [facility] Comment on above: Performed By: #### C BC, PT, PTT, BMP #### [address] [address] Patient Relations Coordinator: Reed Mckeon MD #### ANICOT #### [facility] [address], [place] [id number] Patient Relations Coordinator: Eduin Alvarez MD Urea nitrogen mass conc 15 mg/dL Normal 6-20 [facility] Comment on above: Performed By: #### C BC, PT, PTT, BMP #### [address] [address] Patient Relations Coordinator: Reed Mckeon MD #### ANICOT #### [facility] [address], [place] [id number] Patient Relations Coordinator: Eduin Alvarez MD BUN/CRE Ratio NOT REPORTED Normal 9-20 [facility] Comment on above: Performed By: #### C BC, PT, PTT, BMP #### [address] [address] Patient Relations Coordinator: Reed Mckeon MD #### ANICOT #### [facility] [address], [place] [id number] Patient Relations Coordinator: Eduin Alvarez MD Staging: NOT REPORTED Normal [facility] Comment on above: Performed By: #### C BC, PT, PTT, BMP #### [facility] [address] [place] [address] Patient Relations Coordinator: Reed Mckeon MD #### ANICOT #### [facility] [address] [place] [address] Patient Relations Coordinator: Eduin Alvarez MD CBCon 04-02-2018 Erythrocyte distribution width Ratio (RBC) 12.0 % Normal 11.8-14.4 [facility] Comment on above: Performed By: #### C BC, PT, PTT, BMP #### [address] [address] Patient Relations Coordinator: Reed Mckeon MD #### ANICOT #### [facility] [address], [place] [id number] Patient Relations Coordinator: Eduin Alvarez MD Hematocrit Volume Fraction (Bld) 41.3 % Normal 36.3-47.1 [facility] Comment on above: Performed By: #### C BC, PT, PTT, BMP #### [address] [address] Patient Relations Coordinator: Reed Mckeon MD #### ANICOT #### [facility] [address], [place] [id number] Patient Relations Coordinator: Eduin Alvarez MD Hemoglobin mass conc (Bld) 13.7 g/dL Normal 11.9-15.1 [facility] Comment on above: Performed By: #### C BC, PT, PTT, BMP #### [address] [address] Patient Relations Coordinator: Reed Mckeon MD #### ANICOT #### [facility] [address], [place] [id number] Patient Relations Coordinator: Eduin Alvarez MD MCH Entitic mass (RBC) 28.4 pg Normal 25.2-33.5 [facility] Comment on above: Performed By: #### C BC, PT, PTT, BMP #### [facility] [address] [place] [address] Patient Relations Coordinator: Reed Mckeon MD #### ANICOT #### [facility] [address] [place] [address] Patient Relations Coordinator: Eduin Alvarez MD MCHC mass conc (RBC) 33.2 g/dL Normal 28.4-34.8 [facility] Comment on above: Performed By: #### C BC, PT, PTT, BMP #### [address] [address] Patient Relations Coordinator: Reed Mckeon MD #### ANICOT #### [facility] [address] [place], [place] [id number] Patient Relations Coordinator: Eduin Alvarez MD MCV Entitic volume (RBC) 85.7 fL Normal 82.6-102.9 [facility] Comment on above: Performed By: #### C BC, PT, PTT, BMP #### [address] [address] Patient Relations Coordinator: Reed Mckeon MD #### ANICOT #### [facility] [address], [place] [id number] Patient Relations Coordinator: Eduin Alvarez MD NRBC Automated 0.0 per 100 WBC Normal 0.0 [facility] Comment on above: Performed By: #### C BC, PT, PTT, BMP #### [address] [address] Patient Relations Coordinator: Reed Mckeon MD #### ANICOT #### [facility] [address] [place] [address] Patient Relations Coordinator: Eduin Alvarez MD Platelet mean volume Entitic volume (Bld) 9.4 fL Normal 8.1-13.5 [facility] Comment on above: Performed By: #### C BC, PT, PTT, BMP #### [facility] [address] [place] [address] Patient Relations Coordinator: Reed Mckeon MD #### ANICOT #### [facility] [address] [place] [address] Patient Relations Coordinator: Eduin Alvarez MD Platelets #/vol (Bld) 392 10*3/uL Normal 138-453 [facility] Comment on above: Performed By: #### C BC, PT, PTT, BMP #### [address] [address] Patient Relations Coordinator: Reed Mckeon MD #### ANICOT #### [facility] [address] [place] [address] Patient Relations Coordinator: Eduin Alvarez MD RBC #/vol (Bld) 4.82 10*6/uL Normal 3.95-5.11 [facility] Comment on above: Performed By: #### C BC, PT, PTT, BMP #### [address] [address] Patient Relations Coordinator: Reed Mckeon MD #### ANICOT #### [facility] [address] [place] [address] Patient Relations Coordinator: Eduin Alvarez MD WBC #/vol (Bld) 10.4 10*3/uL Normal 3.5-11.3 [facility] Comment on above: Performed By: #### C BC, PT, PTT, BMP #### [place] [address] Patient Relations Coordinator: Reed Mckeon MD #### ANICOT #### [facility] [address] [place] [address] Patient Relations Coordinator: Eduin Alvarez MD PTon 04-02-2018 INR Coag RelTime (PPP) 1.0 {INR} Normal [facility] Comment on above: Result Comment: Therapeutic Range: Moderate Anticoagulant Intensity: INR = 2.0-3.0 High Anticoagulant Intensity: INR = 2.5-3.5 Performed By: #### C BC, PT, PTT, BMP #### [facility] [address] [place] [address] [phone] Patient Relations Coordinator: Reed Mckeon MD #### ANICOT #### [facility] [address], [place] [id number] Patient Relations Coordinator: Eduin Alvarez MD Prothrombin time (PT) Coag time (PPP) 10.3 s Normal 9.0-12.0 [facility] Comment on above: Performed By: #### C BC, PT, PTT, BMP #### [facility] [address] [place] [phone] Patient Relations Coordinator: Reed Mckeon MD #### ANICOT #### [facility] [address] [place] [address] Patient Relations Coordinator: Eduin Alvarez MD XR CHEST (2 VW)on [...] Mijares Jr., DO 04/02/18 Final result Normal [facility] H. pylori Detectionon 2017 H. pylori Detection Specimen Description .TISSUE, STOMACH BIOPSY Special Requests LOT [id number] EXP FEB 2018 [employer] on this test is within expected limits. Direct Exam NEGATIVE Report Status FINAL 12/05/2017 Normal [facility] Comment on above: Performed By: #### H GENET #### [facility] [address] [place] [address] [phone] Surgical Pathologyon 018 Surgical Pathology (NOTE) [id number] [facility] ANATOMIC PATHOLOGY [address] [place] [phone] SURGICAL PATHOLOGY CONSULTATION Patient Name: ANTOINETTE RECIO [facility] Rec: [id number] Path Number: [id number] Collected: 12/04/2017 Received: 12/04/2017 Reported: 12/07/2017 12:25 [...] po tm Microscopic Description Microscopic examination performed. [facility] Comment on above: Performed By: #### P PPVS #### [facility] [place], [place] [id number] Vital Signs Date Time Vital Sign Value Performing Clinician Facility 03-22-2024 08:30-0500 Blood Pressure Location SHANI CARY [facility] 03-22-2024 08:30-0500 Diastolic blood pressure 64 mm[Hg] SHANI CARY [facility] 03-22-2024 08:30-0500 Heart rate 67 /min SHANI CARY [facility] 03-22-2024 08:30-0500 SaO2% (BldA) [Mass fraction] 99 % SHANI CARY [facility] 03-22-2024 08:30-0500 Systolic blood pressure 110 mm[Hg] SHANI CARY [facility] 02-23-2024 16:35-0500 Body temperature 98.4 [degF] Sara Kevin MD Work Phone: [facility] 02-23-2024 16:35-0500 Diastolic blood pressure 88 mm[Hg] Sara Kevin MD Work Phone: [facility] 02-23-2024 16:35-0500 Heart rate 70 /min Sara Kevin MD Work Phone: [facility] 02-23-2024 16:35-0500 Respiratory rate 16 /min Sara Kevin MD Work Phone: [facility] 02-23-2024 16:35-0500 SaO2% (BldA) [Mass fraction] 98 % Sara Kevin MD Work Phone: [facility] 02-23-2024 16:35-0500 Systolic blood pressure 130 mm[Hg] Sara Kevin MD Work Phone: [facility] 02-23-2024 11:38-0500 Body height 162.6 cm Sara Kevin MD Work Phone: [facility] 02-23-2024 11:38-0500 Body mass index (BMI) [Ratio] 31.56 kg/m2 Sara Kevin MD Work Phone: [facility] 02-23-2024 11:38-0500 Body weight 83.4 kg Sara Kevin MD Work Phone: [facility] 02-23-2024 03:27-0500 Body temperature 37 Sara Kevin MD Work Phone: [facility] 02-23-2024 03:20-0500 Body temperature 37.0 degrees Celsius [facility] Comment on above: Performed By: #### [id number] #### SHALOM Esquivel ([id number]) [facility] ([facility]) [address] [place] [address] 02-22-2024 20:31-0500 Body temperature 37 Sara Kevin MD Work Phone: [facility] 02-22-2024 20:21-0500 Body temperature 37.0 degrees Celsius [facility]TERNAL [facility] Comment on above: Performed By: #### [id number] #### SHALOM Esquivel ([id number]) [facility] ([facility]) [address] [place] [address] 01-05-2024 09:50-0500 Blood Pressure Location SHANI CARY [facility] 01-05-2024 09:50-0500 Diastolic blood pressure 74 mm[Hg] SHANI CARY [facility] 01-05-2024 09:50-0500 Heart rate 59 /min SHANI CARY [facility] 01-05-2024 09:50-0500 Respiratory rate 15 /min SHANI CARY [facility] 01-05-2024 09:50-0500 SaO2% (BldA) [Mass fraction] 97 % SHANI CARY [facility] 01-05-2024 09:50-0500 Systolic blood pressure 136 mm[Hg] SHANI PONCEEZAV [facility] 12-23-2023 11:00-0500 Diastolic blood pressure 83 mm[Hg] [facility] 12-23-2023 11:00-0500 Heart rate 86 /min [facility] 12-23-2023 11:00-0500 Mean blood pressure 98 mm[Hg] [facility] 12-23-2023 11:00-0500 SaO2% (BldA) [Mass fraction] 100 % [facility] 12-23-2023 11:00-0500 Systolic blood pressure 129 mm[Hg] [facility] 11-13-2024 10:00-0500 Diastolic blood pressure 89 mm[Hg] [facility] 12-23-2023 10:00-0500 Heart rate 92 /min [facility] 12-23-2023 10:00-0500 Mean blood pressure 105 mm[Hg] [facility] 12-23-2023 10:00-0500 Systolic blood pressure 137 mm[Hg] [facility] 12-23-2023 09:17-0500 Body temperature 98.78 [degF] [facility] 12-23-2023 09:17-0500 Diastolic blood pressure 99 mm[Hg] [facility] 12-23-2023 09:17-0500 Heart rate 85 /min [facility] 12-23-2023 09:17-0500 Respiratory rate 16 /min [facility] 12-23-2023 09:17-0500 SaO2% (BldA) [Mass fraction] 98 % [facility] 12-23-2023 09:17-0500 Systolic blood pressure 143 mm[Hg] [facility] 12-06-2023 13:13-0400 Body mass index (BMI) [Ratio] 24.91 kg/m2 Nicolasa Armas [employer] Work Phone: [facility] 12-06-2023 13:13-0400 Body temperature 97.81 [degF] Nicolasa Armas [employer] Work Phone: [facility] 12-06-2023 13:13-0400 Body weight 68.95 kg Nicolasa Armas [employer] Work Phone: [facility] 12-06-2023 13:13-0400 Diastolic blood pressure 88 mm[Hg] Nicolasa Armas [employer] Work Phone: [facility] 12-06-2023 13:13-0400 Heart rate 88 /min Nicolasa Armas [employer] Work Phone: [facility] 12-06-2023 13:13-0400 SaO2% (BldA) [Mass fraction] 98 % Nicolasa Armas [employer] Work Phone: [facility] 12-06-2023 13:13-0400 Systolic blood pressure 132 mm[Hg] Nicolasa Armas [employer] Work Phone: [facility] 11-26-2023 15:24-0400 Diastolic blood pressure 72 mm[Hg] PHYSICIAN NO [facility] 11-26-2023 15:24-0400 Heart rate 87 /min PHYSICIAN NO [facility] 11-26-2023 15:24-0400 Respiratory rate 20 /min PHYSICIAN NO [facility] 11-26-2023 15:24-0400 SaO2% (BldA) [Mass fraction] 97 % PHYSICIAN NO [facility] 11-26-2023 15:24-0400 Systolic blood pressure 123 mm[Hg] PHYSICIAN NO [facility] 11-26-2023 13:54-0400 Body height 165.1 cm PHYSICIAN [facility] 11-26-2023 12:00-0400 Body temperature 98.2 [degF] PHYSICIAN [facility] 11-26-2023 04:12-0400 Body weight 67.4 kg PHYSICIAN NO [facility] 11-04-2023 11:15-0400 Body mass index (BMI) [Ratio] 25.7 kg/m2 Eligio Priyanka DO Work Phone: [facility] 11-04-2023 11:15-0400 Body weight 71.12 kg Eligio Priyanka DO Work Phone: [facility] 11-04-2023 11:15-0400 Diastolic blood pressure 80 mm[Hg] Eligio Priyanka DO Work Phone: [facility] 11-04-2023 11:15-0400 Systolic blood pressure 130 mm[Hg] Eligio Priyanka DO Work Phone: [facility] 08-12-2023 12:54-0400 Body height 165.1 cm Celi Wilks MD Work Phone: [facility] 08-12-2023 12:54-0400 Body mass index (BMI) [Ratio] 26.96 kg/m2 Celi Wilks MD Work Phone: [facility] 08-12-2023 12:54-0400 Body weight 73.48 kg Celi Wilks MD Work Phone: [facility] 08-12-2023 12:54-0400 Diastolic blood pressure 66 mm[Hg] Celi Wilks MD Work Phone: [facility] 08-12-2023 12:54-0400 Heart rate 64 /min Celi Wliks MD Work Phone: [facility] 08-12-2023 12:54-0400 Systolic blood pressure 115 mm[Hg] Celi Wilks MD Work Phone: [facility] 06-03-2023 15:10-0400 Body mass index (BMI) [Ratio] 28.49 kg/m2 [facility] 06-03-2023 15:10-0400 Body weight 77.66 kg [facility] 06-03-2023 15:10-0400 Diastolic blood pressure 80 mm[Hg] [facility] 06-03-2023 15:10-0400 Systolic blood pressure 132 mm[Hg] [facility] 05-05-2023 15:13-0400 Body mass index (BMI) [Ratio] 29.32 kg/m2 Nieves Velasquez MD Work Phone: [facility] 05-05-2023 15:13-0400 Body weight 79.92 kg Nieves Velasquez MD Work Phone: [facility] 05-05-2023 15:13-0400 Diastolic blood pressure 84 mm[Hg] Nieves Velasquez MD Work Phone: [facility] 05-05-2023 15:13-0400 Systolic blood pressure 126 mm[Hg] Nieves Velasquez MD Work Phone: [facility] 11-30-2022 07:30-0400 Body temperature 97.9 [degF] PHYSICIAN NO [facility] 11-30-2022 07:30-0400 Diastolic blood pressure 104 mm[Hg] PHYSICIAN NO [facility] 11-30-2022 07:30-0400 Heart rate 68 /min PHYSICIAN NO [facility] 11-30-2022 07:30-0400 Respiratory rate 18 /min PHYSICIAN NO [facility] 11-30-2022 07:30-0400 SaO2% (BldA) [Mass fraction] 99 % PHYSICIAN NO [facility] 11-30-2022 07:30-0400 Systolic blood pressure 155 mm[Hg] PHYSICIAN NO [facility] 11-28-2022 14:23-0400 Body height 165.1 cm PHYSICIAN NO [facility] 11-27-2022 16:19-0400 Body weight 85.72 kg PHYSICIAN NO [facility] 11-27-2022 14:57-0400 Diastolic blood pressure 90 mm[Hg] PHYSICIAN NO [facility] 11-27-2022 14:57-0400 Heart rate 86 /min PHYSICIAN NO [facility] 11-27-2022 14:57-0400 Respiratory rate 18 /min PHYSICIAN NO [facility] 11-27-2022 14:57-0400 SaO2% (BldA) [Mass fraction] 98 % PHYSICIAN NO [facility] 11-27-2022 14:57-0400 Systolic blood pressure 142 mm[Hg] PHYSICIAN NO [facility] 11-27-2022 09:40-0400 Body height 165.1 cm PHYSICIAN NO [facility] 11-27-2022 09:40-0400 Body temperature 98.5 [degF] PHYSICIAN NO [facility] 11-27-2022 09:40-0400 Body weight 86.5 kg PHYSICIAN NO [facility] 05-13-2022 12:00-0400 Body temperature 98 [degF] PHYSICIAN NO [facility] 05-13-2022 12:00-0400 Diastolic blood pressure 79 mm[Hg] PHYSICIAN NO [facility] 05-13-2022 12:00-0400 Heart rate 102 /min PHYSICIAN NO [facility] 05-13-2022 12:00-0400 Respiratory rate 18 /min PHYSICIAN NO [facility] 05-13-2022 12:00-0400 SaO2% (BldA) [Mass fraction] 94 % PHYSICIAN NO [facility] 05-13-2022 12:00-0400 Systolic blood pressure 113 mm[Hg] PHYSICIAN NO [facility] 05-12-2022 09:00-0400 Body weight 79.83 kg PHYSICIAN NO [facility] 05-09-2022 14:19-0400 Body height 165.1 cm PHYSICIAN NO [facility] 05-09-2022 04:22-0400 Diastolic blood pressure 79 mm[Hg] PHYSICIAN NO [facility] 05-09-2022 04:22-0400 Systolic blood pressure 118 mm[Hg] PHYSICIAN NO [facility] 05-09-2022 01:14-0400 Heart rate 103 /min PHYSICIAN NO [facility] 05-09-2022 01:14-0400 Respiratory rate 18 /min PHYSICIAN NO [facility] 05-09-2022 01:14-0400 SaO2% (BldA) [Mass fraction] 97 % PHYSICIAN NO [facility] 05-08-2022 23:48-0400 Body height 165.1 cm PHYSICIAN NO [facility] 05-08-2022 23:48-0400 Body temperature 97.5 [degF] PHYSICIAN NO [facility] 05-08-2022 23:48-0400 Body weight 77.11 kg PHYSICIAN NO [facility] Encounters Encounter Date Encounter Type Care Provider Facility Start: 06-20-2024 ambulatory SHANI CARY Fa cility:[facility] [place] Start: 03-22-2024 End: 03-22-2024 ambulatory SHANI CARY Facility:[facility] [place] Start: 03-22-2024 End: 03-22-2024 Patient encounter procedure SHANI CARY [facility] Start: 02-24-2024 End: 02-26-2024 Evaluation and management of inpatient [facility] Start: 02-22-2024 End: 02-23-2024 Emergency department patient visit Sara Kevin MD Work Phone: [facility] Comment on above: Acute metabolic ence phalopathy (Primary Dx); Alcohol withdrawal syndrome, with delirium (Multi) Start: 02-11-2024 End: 02-11-2024 ambulatory SHANI CARY Facility:[facility] [place] Start: 02-11-2024 End: 02-11-2024 Patient encounter procedure SHANI CARY [facility] Start: 01-26-2024 End: 01-26-2024 ambulatory SHANI CARY Facility:[facility] [place] Start: 01-26-2024 End: 01-26-2024 Patient encounter procedure SHANI CARY [facility] Start: 01-05-2024 End: 01-05-2024 ambulatory SHANI CARY Facility:[facility] [place] Start: 01-05-2024 End: 01-05-2024 Patient encounter procedure SHANI CARY [facility] Start: 12-25-2023 ambulatory SHANI CARY Faci lity:[facility] [place] Start: 12-23-2023 End: 12-23-2023 Emergency department patient visit Ramon Fung [facility] Start: 12-06-2023 End: 12-06-2023 ambulatory NICOLASA ARMAS Not Available Start: 12-06-2023 End: 12-06-2023 Office outpatient new 45 minutes Nicolasa Armas [employer] Work Phone: [facility] Comment on above: Tooth abscess (Prima ry Dx) Start: 11-26-2023 Non-patient / Non-visit PHYSICIAN NO [facility] Work Phone: Start: 11-26-2023 End: 11-26-2023 ambulatory Obvance Yeager Facility:[facility] Start: 11-26-2023 End: 11-26-2023 Evaluation and management of inpatient PHYSICIAN NO [facility] Work Phone: Start: 11-26-2023 End: 11-26-2023 observation encounter PHYSICIAN NO [facility] Work Phone: Start: 11-25-2023 End: 11-25-2023 Telephone encounter Alexisambrosio Art DO Work Phone: [facility] Start: 11-12-2023 End: 11-12-2023 Clinisync Result [...] 11-10-2023 End: 11-10-2023 Clinisync Result Encounter Eligio Priyanka DO Work Phone: [facility] External Department Unsolicited Start: 11-10-2023 End: 11-10-2023 Clinisync Result Encounter Eligio Priyanka DO Work Phone: [facility] External Department Unsolicited Start: 11-04-2023 End: 11-04-2023 Bamboo flowsheet Eligio Priyanka DO Work Phone: [facility] Start: 11-04-2023 End: 11-04-2023 Clinisync Result Encounter Eligio Priyanka DO Work Phone: [facility] External Department Unsolicited Start: 11-04-2023 End: 11-04-2023 Clinisync Result Encounter Eligio Priyanka DO Work Phone: [facility] External Department Unsolicited Start: 11-04-2023 End: 11-04-2023 ambulatory ELIGIO PRIYANKA Not Available Start: 11-04-2023 End: 11-04-2023 Office outpatient visit 15 minutes Eligio Priyanka DO Work Phone: [facility] Comment on above: GA: 34w5d Start: 10-18-2023 End: 10-18-2023 Clinisync Result Encounter Eligio Priyanka DO Work Phone: [facility] External Department Unsolicited Start: 10-18-2023 End: 10-18-2023 Clinisync Result Encounter Eligio Priyanka DO Work Phone: [facility] External Department Unsolicited Start: 10-15-2023 End: 10-16-2023 Telephone encounter June Turner CMA Maternal- Medicine at [facility] Start: 09-15-2023 End: 09-15-2023 ambulatory [facility] Start: 08-12-2023 End: 08-12-2023 Office outpatient new 60 minutes Celi Wilks MD Work Phone: Maternal- Medicine at [facility] Comment on above: Chronic hypertension complicating or reason for care during , second trimester (Primary Dx); History of gestational diabetes mellitus (GDM) in prior , currently ; History of sleeve gastrectomy; History of alcohol abuse; Family history of congenital heart defect; 22 weeks gestation of Start: 08-12-2023 End: 08-12-2023 ambulatory [facility] Comment on above: History of gestation al diabetes mellitus (GDM) in prior , currently (Primary Dx); History of sleeve gastrectomy Start: 06-16-2023 End: 06-16-2023 Emergency department patient visit NO PCP NO PCP [facility] Start: 06-03-2023 End: 06-03-2023 ambulatory NO PCP NO PCP [facility] Start: 06-03-2023 End: 06-03-2023 Subsequent care visit Pf[facility] Ob Concrete Conveyor Operator [facility] Comment on above: GA: 12w5d Start: 05-05-2023 End: 05-05-2023 ambulatory [facility] Start: 05-05-2023 Encounter for gynecological examination (general) (routine) without abnormal findings [facility] Start: 05-05-2023 End: 05-05-2023 Office outpatient visit 25 minutes Nieves Velasquez MD Work Phone: [facility] Comment on above: GA: 8w4d Start: 05-05-2023 End: 05-05-2023 Patient encounter status Neives Velasquez MD Work Phone: [facility] Start: 05-05-2023 End: 05-05-2023 ambulatory [facility] Start: 05-05-2023 Encounter for gynecological examination (general) (routine) without abnormal findings [facility] Start: 04-16-2023 End: 04-16-2023 ambulatory [facility] Start: 04-14-2023 End: 04-14-2023 Initial care visit Lynn Deleon WATER QUALITY CONTROL ENGINEER-FIRE SPRINKLER FITTER Work Phone: [facility] Comment on above: First trimester preg bal (Primary Dx); HTN in , chronic; History of gestational diabetes in prior , currently ; Nausea/vomiting in Start: 04-14-2023 End: 04-14-[address] [facility] Start: 03-30-2023 End: 03-31-2023 Emergency department patient visit NICOLASA TUCKER [facility] Start: 11-27-2022 End: 11-30-2022 Evaluation and management of inpatient PHYSICIAN NO [facility] Work Phone: Start: 05-09-2022 End: 05-13-2022 Evaluation and management of inpatient PHYSICIAN NO [facility] Work Phone: Start: 03-17-2021 End: 03-18-[address] NONE LISTED REQUEST Facility: Start: 06-11-2020 End: 06-14-2020 ambulatory REFERRED SELF Facility:[facility] Start: 06-10-2020 End: 06-10-[address] PRO BOSTON Facility: Start: 04-15-2018 End: 04-16-2018 Patient encounter procedure VIPUL TRIPATHI [facility] Start: 04-12-2018 End: 04-14-2018 Evaluation and management of inpatient [facility] Start: 04-02-2018 Encounter for preprocedural respiratory examination [facility] Start: 04-02-2018 Encounter for other preprocedural examination [facility] Start: 04-02-2018 End: 04-07-2018 Patient encounter procedure [facility] Start: 12-04-2017 End: 12-04-2017 Patient encounter procedure [facility] Encounter for other preprocedural examination [facility] Procedures Date Procedure Procedure Detail Performing Clinician Start: 02-23-2024 Chloride bld Jovany Arthur MD Work Phone: Start: 02-23-2024 Lipid panel Nena K N ation WATER QUALITY CONTROL ENGINEER-FIRE SPRINKLER FITTER Work Phone: Start: 02-23-2024 Calcium ionized Braulio Arthur MD Work Phone: Start: 02-23-2024 Drug tst prsmv instr mnt chem analyzers pr date Sara Kevin MD Work Phone: Start: 02-23-2024 Lipid 1996 panel - S phil or Plasma Sara Kevin MD Work Phone: Start: 02-22-2024 Assay of glutamyltra se gamma Sara Kevin MD Work Phone: Start: 02-22-2024 Ct head/brain w/o co ntrast material Sara Kevin MD Work Phone: Start: 02-22-2024 Ethanol [Mass/volume ] in Serum or Plasma Sara Kevin MD Work Phone: Start: 02-22-2024 ACUTE TOXICOLOGY [place] EL, BLOOD Sara Kvein MD Work Phone: Start: 02-22-2024 End: 02-22-2024 Chloride bld Sara Kevin MD Work Phone: Start: 11-12-2023 ALL CBC WITH AUTO DIFF [...] Eligio Fa zio DO Work Phone: Start: 11-04-2023 ALL CBC WITH AUTO DIFF Eligio Priyanka DO Work Phone: Start: 11-04-2023 Urnls dip stick/tabl et rgnt non-auto w/o micrscp Eligio Priyanka DO Work Phone: Start: 10-18-2023 [facility] UA (CLEAN/CATCH) ELECTRO PLATER/MICRO IF IND. Eligio Priyanka DO Work Phone: Start: 05-05-2023 Adult depression scr eening assessment Nieves Velasquez MD Work Phone: Start: 05-05-2023 Microscopic observat ion [Identifier] in Cervix by Cyto stain [facility] Concrete Conveyor Operator Start: 11-27-2022 Urine culture PHYSICIAN NO FAMILY Start: 11-27-2022 CT of abdomen and pe lvis without contrast PHYSICIAN NO FAMILY Start: 11-27-2022 Plain chest X-ray PHYSI KWAME NO FAMILY Start: 06-14-2020 Open reduction of fr acture with internal fixation Ramon Sweetmarzena Start: 04-16-2018 INCENTIVE SPIROMETRY RT CHER MRAAVILLA Start: 04-16-2018 DISCHARGE PATIENT KRISTA MARAVILLA Start: [...] CHER MARAVILLA Start: 04-16-2018 DAILY WEIGHTS CHER STEVENS Start: 04-16-2018 INTAKE AND OUTPUT KRISTA [...] emsa stain bct fungi/cell CHER MARAVILLA Start: 03-07-2019 Virus centrifuge enh ncd id imfluor stain [...] MARAVILLA Start: 04-15-2018 TELEMETRY MONITORING GR ISAIAS MARAVILLA Start: 04-15-2018 VITAL SIGNS CHER ODELL [...] 04-14-2018 INITIATE OXYGEN THER APY PROTOCOL CHER TAIWO Start: 04-14-2018 NASAL CANNULA OXYGEN GR ISAIAS MARAVILLA Start: 04-14-2018 NEBULIZER TX INTERMITTENT CHER GARZATON Start: 04-14-2018 PULSE OXIMETRY, CONTINUOUS CHER MARAVILLA Start: 04-14-2018 DISCHARGE PATIENT KRISTA MARAVILLA Start: 04-14-2018 PULSE OXIMETRY, CONTINUOUS CHER MARAVILLA Start: 04-14-2018 INTAKE AND OUTPUT KRISTA LEMONS MARAVILLA Start: 04-14-2018 PULSE OXIMETRY, CONTINUOUS CHER MARAVILLA Start: 04-13-2018 NEBULIZER TX INTERMITTENT CHER MARAVILLA Start: 04-13-2018 PULSE OXIMETRY, CONTINUOUS CHER MARAVILLA Start: 04-13-2018 PULSE OXIMETRY, CONTINUOUS CHER MARAVILLA Start: 04-13-2018 NEBULIZER TX INTERMITTENT CHER MARAVILLA Start: 04-13-2018 PULSE OXIMETRY, CONTINUOUS CHER MARAVILLA Start: 04-13-2018 Radex esophagus CHER MARAVILLA Start: 04-13-2018 NASAL CANNULA OXYGEN ROSEY ESPARZA MARAVILLA Start: 04-13-2018 INITIATE OXYGEN THER APY PROTOCOL CHER TAIWO Start: 04-13-2018 NEBULIZER TX INTERMITTENT CHER MARAVILLA Start: 04-13-2018 PULSE OXIMETRY, CONTINUOUS CHER MARAVILLA Start: 04-13-2018 Basic metabolic pane l calcium total CHER MARAVILLA Start: 04-13-2018 Blood count complete automated CHER MARAVILLA Start: 04-13-2018 PULSE OXIMETRY, CONTINUOUS CHER MARAVILLA Start: 04-13-2018 INTAKE AND OUTPUT KRISTA LEMONS MARAVILLA Start: 04-13-2018 PULSE OXIMETRY, CONTINUOUS CHER MARAVILLA Start: 04-12-2018 NEBULIZER TX INTERMITTENT CHER MARAVILLA Start: 04-12-2018 PULSE OXIMETRY, CONTINUOUS CHER MARAVILLA Start: 04-12-2018 DIET BARIATRIC CLEAR LIQUID CHER MARAVILLA Start: 04-12-2018 IP CONSULT TO IV TEAM Alycia MARAVILLA Start: 04-12-2018 PULSE OXIMETRY, CONTINUOUS CHER MARAVILLA Start: 04-12-2018 TELEMETRY MONITORING ROSEY ISAIAS MARAVILLA Start: 04-12-2018 ENCOURAGE DEEP BREAT VICKY AND COUGHING CHER MARAVILLA Start: 04-12-2018 PLACE INTERMITTENT PNEUMATIC COMPRESSION DEVICE CHER MARAVILLA Start: 04-12-2018 PULSE OXIMETRY, CONTINUOUS CHER MARAVILLA Start: 04-12-2018 ELEVATE HOB CHER LAY DEBORAHOUMOU Start: 04-12-2018 INITIATE OXYGEN THER APY PROTOCOL CHER MARAVILLA Start: 04-12-2018 MISCELLANEOUS NURSIN G CARE ORDER (SPECIFY) CHER TAIWO Start: 04-12-2018 FULL CODE CHER LAY DEBORAHOUMOU Start: 04-12-2018 INTAKE AND OUTPUT KRISTA MARAVILLA Start: 04-12-2018 NOTIFY PHYSICIAN (SPECIFY) CHER MARAVILLA Start: 04-12-2018 VITAL SIGNS CHER DONNA ODELL Start: 04-12-2018 ABDOMINAL BINDER TRACEE Cruz MARAVILLA Start: 04-12-2018 Level iv surg pathol [...] MARAVILLA Start: 04-02-2018 Assay of nicotine KRISTA VESTA GARZATON Start: 04-02-2018 Basic metabolic pane l calcium [...] CHER MARAVILLA Start: 04-02-2018 EKG REPORT CHER DONNA ODELL Start: 02-09-2018 Gastric sleeve Astrit Clair zuñiga Start: 12-04-2017 SURGICAL PATHOLOGY RAJAN MARAVILLA Start: 12-04-2017 DISCHARGE PATIENT KRISTA MARAVILLA Tonsillectomy Ramon Fung Plan of Treatment Date Care Activity Detail Author Start: 04-20-2045 Shingles (RZV) Vacci ne (1 of 2) Shingles (RZV) Vaccine (1 of 2) [facility] Start: 04-20-2045 Zoster Vaccines (1 o f 2) Zoster Vaccines (1 of 2) [facility] Start: 12-21-2030 DTaP,Tdap and Td Vaccines (3 - Td or Tdap) DTaP,Tdap and Td Vaccines (3 - Td or Tdap) [facility] Start: 02-22-2029 Lipid panel Lipid Panel [facility] Start: 05-04-2026 Screening for malign ant neoplasm of cervix [facility] Start: 08-11-2024 Adult BMI Screening Adult [facility] Screen ing [facility] Start: 08-11-2024 Tobacco Screening Tobacco Screening [facility] Start: 08-11-2024 End: 08-11-2024 US MFM with or without consult US MFM with or without consult Imaging Routine History of gestational diabetes mellitus (GDM) in prior , currently History of sleeve gastrectomy Expected: 08/11/2024 (Approximate), Expires: 08/11/2024 Rapid Pathogen Screening Work Phone: Comment on above: Expected: 08/11/2024 (Approximate), Expires: 08/11/2024 Start: 06-02-2024 Adult BMI Screening Adult BMI Screen ing [facility] Start: 06-02-2024 Tobacco Screening [facility] Start: 05-04-2024 Adult BMI Screening [facility] Screen [facility] Start: 05-04-2024 Depression Screening Depression Scre ening [facility] Start: 05-04-2024 Tobacco Screening Tobacco [facility]ening [facility] Start: 04-13-2024 Tobacco Screening Tobacco Screening [facility] Start: 03-30-2024 Adult BMI Screening Adult BMI Screen ing [facility] Start: 11-26-2023 [facility] Start: 11-26-2023 Hospital admission [facility] Start: 11-26-2023 Referral to psychiatrist [facility] Start: 11-26-2023 [facility] Start: 11-11-2023 End: 11-11-2023 Patient encounter procedure 11/11/2023 11:10 AM EDT Routine [facility] [address] [place] [phone] Eligio Mathew, DO [address] [place] [address] [facility] Start: 11-04-2023 End: 11-03-2024 US biophysical profile w non stress test US biophysical profile w non stress test Imaging Routine Chronic hypertension during , antepartum Expected: 11/04/2023 (Approximate), Expires: 11/03/2024 [facility] Work Phone: Comment on above: Expected: 11/04/2023 (Approximate), Expires: 11/03/2024 Start: 11-04-2023 End: 11-03-2024 US for US OB SCAN FOR GROWTH Imaging Routine Chronic hypertension during , antepartum Expected: 11/04/2023 (Approximate), Expires: 11/03/2024 [facility] Comment on above: Expected: 11/04/2023 (Approximate), Expires: 11/03/2024 Start: 10-15-2023 End: 10-15-2023 Patient encounter procedure [facility] Start: 10-11-2023 COVID-19 Vaccine ( season) COVID-19 Vaccine ( season) [facility] Start: 10-11-2023 COVID-19 Vaccine ( season) COVID-19 Vaccine ( season) [facility] Start: 10-11-2023 Influenza [facility] Start: 09-15-2023 End: 09-15-2023 Patient encounter procedure 09/15/2023 12:30 PM EDT Appointment [facility] - Ul[facility]ound [address] [place] [address] [facility] Start: 08-18-2023 End: 08-18-2023 Patient encounter procedure 08/18/2023 1:30 PM EDT Routine [facility] [address] [place] [phone] Cely Rai DO [address] [place] [address] [facility] Start: 08-12-2023 End: 08-11-2024 Echo complete W/O contrast Echo complete W/O contrast Echocardiography Routine Chronic hypertension complicating or reason for care during , second trimester Expected: 08/12/2023, Expires: 08/11/2024 [facility] Comment on above: Expected: 08/12/2023 , Expires: 08/11/2024 Start: 06-30-2023 End: 06-30-2023 Patient encounter procedure 06/30/2023 3:15 PM EDT Routine [facility] [address] [place] [phone] Cely Rai DO [address] [place] [address] [facility] Start: 06-29-2023 DTaP/Tdap/Td Vaccine s (2 - Td or Tdap) DTaP/Tdap/Td Vaccines (2 - Td or Tdap) [facility] Start: 06-03-2023 End: 06-03-2023 Patient encounter procedure 06/03/2023 3:15 PM EDT Routine [facility] [address] [place] [address] [facility] Start: 06-03-2023 End: 06-02-2024 US MFM with or without consult US MFM with or without consult Imaging Routine History of gestational diabetes mellitus (GDM) Chronic hypertension affecting Expected: 06/03/2023, Expires: 06/02/2024 [facility] Work Phone: Comment on above: Expected: 06/03/2023 , Expires: 06/02/2024 Start: 05-05-2023 End: 05-05-2023 ambulatory 05/05/2023 3:00 PM EDT Initial [facility] [address] [place] [phone] Nieves Velasquez MD [address] [place] [address] [facility] Start: 04-16-2023 Subsequent hospital visit by physician 04/16/2023 1:30 PM EST Hospital Encounter [facility] [address] [place] [phone] Lynn Deleon, WATER QUALITY CONTROL ENGINEER-FIRE SPRINKLER FITTER [address] [place] [address] [facility] Start: 04-14-2023 End: 04-13-2024 US transvaginal for Ultrasound less than 14 weeks with transvaginal Imaging Routine First trimester Expected: 04/14/2023, Expires: 04/13/2024 [facility] Work Phone: Comment on above: Expected: 04/14/2023 , Expires: 04/13/2024 Start: 11-30-2022 [facility] Start: 11-28-2022 Lipid panel [facility] Start: 11-28-2022 [facility] Start: 11-27-2022 Referral to Educational Therapist [facility] Start: 11-27-2022 Hospital admission [facility] Start: 11-27-2022 [facility] Start: 11-27-2022 Bacteria identified in Urine by Culture [facility] Start: 10-10-2022 Influenza vaccination Influenza Vacc ine [facility] Start: 05-13-2022 [facility] Start: 05-09-2022 Hospital admission [facility] Start: 04-20-2022 HPV Vaccine (optiona l start 27-45 years) HPV Vaccine (optional start 27-45 years) [facility] Start: 04-20-2016 Screening for malign ant neoplasm of cervix [facility] Start: 04-20-2014 Hepatitis A (HAV) Vaccine (optional start 19+ years) Hepatitis A (HAV) Vaccine (optional start 19+ years) [facility] Start: 04-20-2014 Hepatitis B vaccination Hepati tis B (HBV) Vaccine (1 of 3 - 19+ 3-dose series) [facility] Start: 04-20-2013 Adult BMI Follow Up Plan Adult BMI Follow Up Plan [facility] Start: 04-20-2013 Diabetes mellitus screening Diabetes Screening [facility] Start: 04-20-2013 [facility] Start: 04-20-2013 Tdap Booster Tdap Booster [facility] Start: 05-28-2011 HPV Vaccines (3 - 3-dose series) HPV Vaccines (3 - 3-dose series) [facility] Start: 04-20-2010 HIV screening HIV Test [facility] Start: 2007 Depression Screening Depression [facility] Start: 06-10-2000 IPV Vaccines (2 of 3 - 4-dose series) IPV Vaccines (2 of 3 - 4-dose series) [facility] Start: 1995 HIV screening HIV Screening [facility] Start: 1995 Yearly Adult Physical Yearly Adult [facility] End: 04-13-2024 Bacteria identified in Urine by Culture Urine Culture Microbiology Routine First trimester 1 Occurrences starting 04/14/2023 until 04/13/2024 [facility] Comment on above: 1 Occurrences starti ng 04/14/2023 until 04/13/2024 End: 04-13-2024 CBC panel - Blood by Automated count CBC without diff Lab Routine First trimester 1 Occurrences starting 04/14/2023 until 04/13/2024 [facility] Comment on above: 1 Occurrences starti ng 04/14/2023 until 04/13/2024 End: 05-04-2024 Chlamydia/GC by PCR ThinPrep fluid Chlamydia/GC by PCR ThinPrep fluid Microbiology Routine Screening for STD (sexually transmitted disease) 1 Occurrences starting 05/05/2023 until 05/04/2024 [facility] Comment on above: 1 Occurrences starti ng 05/05/2023 until 05/04/2024 End: 04-13-2024 Comprehensive metabolic 2000 panel - Serum or Plasma Comprehensive metabolic panel Lab Routine First trimester HTN in , chronic 1 Occurrences starting 04/14/2023 until 04/13/2024 [facility] Comment on above: 1 Occurrences starti ng 04/14/2023 until 04/13/2024 End: 04-13-2024 Creatinine clearance Creatinine clearance Lab Routine First trimester HTN in , chronic 1 Occurrences starting 04/14/2023 until 04/13/2024 [facility] Comment on above: 1 Occurrences starti ng 04/14/2023 until 04/13/2024 End: 05-04-2024 Cytopathology procedure, preparation of smear, genital source Pap Smear Pathology and Cytology Routine Smear, vaginal, as part of routine gynecological examination 1 Occurrences starting 05/05/2023 until 05/04/2024 Rapid Pathogen Screening Work Phone: Comment on above: 1 Occurrences starti ng 05/05/2023 until 05/04/2024 End: 04-13-2024 Drug Screen, Urine Drug Screen, Urine Lab Routine First trimester 1 Occurrences starting 04/14/2023 until 04/13/2024 [facility] Comment on above: 1 Occurrences starti ng 04/14/2023 until 04/13/2024 End: 02-22-2024 ECG 12 lead [facility] Service Area Work Phone: Comment on above: Once for 1 Occurrenc es starting 02/22/2024 until 02/22/2024 End: 08-11-2024 ECG 12 lead ECG 12 lead ECG Routine Chronic hypertension complicating or reason for care during , second trimester 1 Occurrences starting 08/12/2023 until 08/11/2024 Rapid Pathogen Screening Work Phone: Comment on above: 1 Occurrences starti ng 08/12/2023 until 08/11/2024 Electrocardiogram, 12-lead PRN ACS symptoms Electrocardiogram, 12-lead PRN ACS symptoms ECG Routine As needed until discontinued starting 02/23/2024 [facility] Work Phone: Comment on above: As needed until disc ontinued starting 02/23/2024 End: 04-13-2024 Glucose 1h post 50g load Glucose 1h post 50g load Lab Routine First trimester History of gestational diabetes in prior , currently 1 Occurrences starting 04/14/2023 until 04/13/2024 [facility] Comment on above: 1 Occurrences starti ng 04/14/2023 until 04/13/2024 End: 02-23-2024 Hemoglobin A1c/Hemoglobin.total in Blood [facility] Work Phone: Comment on above: Once (Lab) for 1 Occ urrences starting 02/23/2024 until 02/23/2024 End: 04-13-2024 Hepatitis panel, acute Hepatitis panel, acute Lab Routine First trimester 1 Occurrences starting 04/14/2023 until 04/13/2024 [facility] Comment on above: 1 Occurrences starti ng 04/14/2023 until 04/13/2024 End: 04-13-2024 HIV 1&2 AB/AG Screen (P24 AG) HIV 1&2 AB/AG Screen (P24 AG) Lab Routine First trimester 1 Occurrences starting 04/14/2023 until 04/13/2024 [facility] Comment on above: 1 Occurrences starti ng 04/14/2023 until 04/13/2024 End: 04-13-2024 LDH LDH Lab Routine First trimester HTN in , chronic 1 Occurrences starting 04/14/2023 until 04/13/2024 [facility] Comment on above: 1 Occurrences starti ng 04/14/2023 until 04/13/2024 End: 02-23-2024 MR Brain WO contrast MR brain wo IV contrast Imaging STAT Once for 1 Occurrences starting 02/23/2024 until 02/23/2024 [facility] Service Area Work Phone: Comment on above: Once for 1 Occurrenc es starting 02/23/2024 until 02/23/2024 End: 02-23-2024 MRA Head vessels WO contrast MR angio head wo IV contrast Imaging STAT Once for 1 Occurrences starting 02/23/2024 until 02/23/2024 [facility] Work Phone: Comment on above: Once for 1 Occurrenc es starting 02/23/2024 until 02/23/2024 End: 02-23-2024 MRA Neck vessels WO contrast MR angio neck wo IV contrast Imaging STAT Once for 1 Occurrences starting 02/23/2024 until 02/23/2024 [facility] Work Phone: Comment on above: Once for 1 Occurrenc es starting 02/23/2024 until 02/23/2024 Patient Education [facility] Work Phone: Patient referral [facility] Work Phone: End: 02-23-2024 Pulse oximetry, continuous Pulse oximetry, continuous Respiratory Care Routine Continuous until discontinued starting 02/23/2024 [facility] Service Area Work Phone: Comment on above: Continuous until dis continued starting 02/23/2024 End: 04-13-2024 Rubella IGG immune status Rubella IGG immune status Lab Routine First trimester 1 Occurrences starting 04/14/2023 until 04/13/2024 [facility] Comment on above: 1 Occurrences starti ng 04/14/2023 until 04/13/2024 End: 04-13-2024 Syphilis Total(Unknown Syphilis Status) Syphilis Total(Unknown Syphilis Status) Lab Routine First trimester 1 Occurrences starting 04/14/2023 until 04/13/[facility]24 [facility] on above: 1 Occurrences starti ng 04/14/2023 until 04/13/2024 End: 02-23-2024 Thiamine pyrophosphate [Moles/volume] in Blood [facility] Work Phone: Comment on above: Once (Lab) for 1 Occ urrences starting 02/23/2024 until 02/23/2024 End: 04-13-2024 Type and screen Type and screen Blood Bank Routine First trimester 1 Occurrences starting 04/14/2023 until 04/13/2024 [facility] Comment on above: 1 Occurrences starti ng 04/14/2023 until 04/13/2024 End: 04-13-2024 Urate [Mass/volume] in Serum or Plasma Uric acid Lab Routine First trimester HTN in , chronic 1 Occurrences starting 04/14/2023 until 04/13/2024 [facility] Comment on above: 1 Occurrences starti ng 04/14/2023 until 04/13/2024 End: 04-13-2024 Urinalysis Urinalysis Lab Routine First trimester 1 Occurrences starting 04/14/2023 until 04/13/2024 [facility] Comment on above: 1 Occurrences starti ng 04/14/2023 until 04/13/2024 End: 02-23-2024 Urinalysis complete panel - Urine Urinalysis with Reflex Microscopic Lab Routine Once (Lab) for 1 Occurrences starting 02/23/2024 until 02/23/2024 [facility] Work Phone: Comment on above: Once (Lab) for 1 Occ urrences starting 02/23/2024 until 02/23/2024 End: 04-13-2024 Urine protein creatinine ratio Urine protein creatinine ratio Lab Routine First trimester HTN in , chronic 1 Occurrences starting 04/14/2023 until 04/13/2024 [facility] Comment on above: 1 Occurrences starti ng 04/14/2023 until 04/13/2024 End: 04-13-2024 Varicella zoster antibody, IgG Varicella zoster antibody, IgG Lab Routine First trimester 1 Occurrences starting 04/14/2023 until 04/13/2024 [facility] Comment on above: 1 Occurrences starti ng 04/14/2023 until 04/13/2024 Immunizations Immunization Date Immunization Notes Care Provider Gretel grissom 12-21-2020 tetanus toxoid, reduced diphtheria toxoid, and acellular pertussis vaccine, adsorbed PHYSICIAN [facility] 09-02-2019 tetanus toxoid, reduced diphtheria toxoid, and acellular pertussis vaccine, adsorbed PHYSICIAN NO [facility] 06-28-2013 hepatitis A vaccine, unspecified formulation SHANI CARY [facility] 06-28-2013 meningococcal ACWY, unspecified formulation SHANI CARY [facility] 06-28-2013 tetanus toxoid, reduced diphtheria toxoid, and acellular pertussis vaccine, adsorbed SHANI CARY [facility] 06-28-2013 varicella virus vaccine SHANI NAHEEDKI [facility] 01-28-2011 HPV, unspecified formulation SHANI NAHEEDKI [facility] 11-26-2010 hepatitis A vaccine, unspecified formulation SHANIBerenice CARY [facility] 11-26-2010 HPV, unspecified formulation SHANI NAHEEDKI [facility] 12-10-2004 influenza virus vaccine, unspecified formulation SHANIBerenice CARY [facility] 05-13-2000 DTaP, unspecified formulation SHANIBerenice CARY [facility] 05-13-2000 measles, mumps and rubella virus vaccine SHANI NAHEEDKI [facility] 05-13-2000 poliovirus vaccine, unspecified formulation SHANI CARY [facility] 08-11-1996 DTP-Hib SHANI CIERSEZW SKI [facility] 08-11-1996 varicella virus vaccine SHANI NAHEEDKI [facility] 06-23-1996 measles, mumps and rubella virus vaccine SHANI NAHEEDKI [facility] 01-14-1996 DTP-Hib SHANI CIERSEZW SKI [facility] 01-14-1996 hepatitis B vaccine, pediatric or pediatric/adolescent dosage SHANI CARY [facility] 1995 DTP-Hib SHANI KRISEZW SKI [facility] 1995 DTP-Hib SHANI KRISEZW SKI [facility] 1995 hepatitis B vaccine, pediatric or pediatric/adolescent dosage SHANIBerenice CARY [facility] 1995 hepatitis B vaccine, pediatric or pediatric/adolescent dosage SHANI KRISSKYLER [facility] NEGATED: Highlighted row has not occurred!01-05-2024 influenza virus vaccine, unspecified formulation SHANIBerenice CARY [facility] Payers Date Payer Category Payer Self-pay [id number] 2023 Medicaid (Managed Care) [facility] [id number] 2023 Private Health Insurance [facility] MEDICAID [id number] 2022 Medicaid [id number] 2022 Medicaid [id number] 2018 Unknown [id number] 2017 Private Health Insurance [id number] 1995 Unknown [id number] 2.16.840.1.391974.3.579.2. 175 1995 Unknown [id number] 2.16.840.1.072095.3.579.2. 175 1995 Unknown [id number] 2.16.840.1.751075.3.579.2. 175 1995 Unknown [id number] 2.16.840.1.781781.3.579.2. 175 1995 Unknown [id number] 2.16.840.1.409478.3.579.2. 175 1995 Unknown [id number] 2.16.840.1.032265.3.579.2. 593 1995 Unknown [id number] 2.16.840.1.665706.3.579.2. 593 1995 Unknown [id number] 2.16.840.1.373541.3.579.2. 647 1995 Unknown [id number] 2.16.840.1.733777.3.579.2. 1286 1995 Unknown [id number] 2.16.840.1.015783.3.579.2. 1286 1995 Unknown [id number] 2.16.840.1.759426.3.579.2. 1286 1995 Unknown [id number] 2.16.840.1.925514.3.579.2. 1286 1995 Unknown [id number] 2.16.840.1.805260.3.579.2. 1285 1995 Unknown [id number] 2.16.840.1.460573.3.579.2. 128 1995 Unknown [id number] 2.16.840.1.211300.3.579.2. 1285 1995 Unknown [id number] 2.16.840.1.300498.3.579.2. 128 1995 Unknown [id number] 2.16.840.1.250962.3.579.2. 1285 1995 Unknown [id number] 2.16.840.1.999103.3.579.2. 1285 1995 Unknown [id number] 2.16840.1.449616.3.579.2. 128 1995 Unknown [id number] 2.16.840.1.286815.3.579.2. 128 1995 Unknown [id number] 2.16840.1.523998.3.579.2. 9 1995 Unknown [id number] 2.16.840.1.607522.3.579.2. 1259 1995 Unknown [id number] 2.16840.1.406444.3.579.2. 727 1995 Unknown [id number] 2.16.840.1.424541.3.579.2. 727 1995 Unknown [id number] 2.16.840.1.567785.3.579.2. 727 1995 Unknown [id number] 2.16.840.1.198207.3.579.2. 1243 1995 Unknown [id number] 2.16.840.1.588842.3.579.2. 727 1995 Unknown [id number] 2.16.840.1.312335.3.579.2. 727 1995 Unknown [id number] 2.16.840.1.356410.3.579.2. 727 1995 Unknown [id number] 2.16.840.1.751374.3.579.2. 727 1995 Unknown [id number] 2.16.840.1.772580.3.579.2. 727 1959 Self-pay [id number] 1959 Unknown [id number] Medicaid Reading [employer]vantage [id number] 001 [id number] Unknown [id number] 2.16.840.1.852696.3.579.2. 531 Unknown [id number] 2.16.840.1.729304.3.579.2. 531 Social History Date Type Detail Facility Start: 05-09-2022 End: 11-27-2022 Tobacco smoking status [facility] Never smoked tobacco (finding) [facility] Start: 1995 Sex Assigned At Female F [facility] Start: 11-28-2022 End: 03-24-2023 Tobacco smoking status ORIS Smoker (finding) [facility] Tobacco smoking status [facility] Tobacco smoking consumption unknown [facility] Start: 03-20-2023 [facility] Start: 1995 Sex assigned at Not on file [facility] Start: 03-22-2020 End: 12-06-2023 Gender identity Not on file [facility] Start: 08-12-2023 End: 11-26-2023 Tobacco smoking status ORIS Ex-smoker (finding) [facility] End: 03-24-2023 History of tobacco use Cigarette Smoker [facility] Start: 08-12-2023 End: 12-06-2023 Tobacco use and exposure Smokeless tobacco non-user [facility] Start: 12-06-2023 Alcoholic beverage intake Ex-drinker (finding) [facility] Start: 03-22-2020 End: 12-06-2023 History of Social function [facility] Tobacco [facility] Comment on above: denies Tobacco smoking status No Smoking Status Entered [facility] Start: 01-05-2024 End: 03-22-2024 Tobacco smoking status Light tobacco smoker (finding) [facility] Start: 02-12-2024 End: 02-22-2024 Exposure to SARS-CoV-2 (event) Not sure [facility] Work Phone: Start: 06-03-2023 End: 08-12-2023 Alcoholic beverage intake Current non-drinker of alcohol (finding) [employer] [facility] How hard is it for you to pay for the very basics like food, housing, medical care, and heating Somewhat hard [facility] Adolescent depressio n screening assessment [facility] Start: 04-14-2023 Alcohol Comment SOBER 3 MONTHS [facility] [employer] [facility] NEGATED: Highlighted row [facility] Medical Equipment Procedure Code Equipment Code Equipment Origin al Text Equipment Identifier Dates CLAVICULAR FRACT URE ORIF Brown DO, Jordan A 06/14/20 Unknown Other FDA Start: 06-14-2020 CLAVICULAR FRACT URE ORIF Brown DO, Jordan A 06/14/20 Unknown Other FDA Start: 06-14-2020 CLAVICULAR FRACT URE ORIF Brown DO, Jordan A 06/14/20 Unknown Other FDA Start: 06-14-2020 CLAVICULAR FRACT URE ORIF Brown DO, Jordan A 06/14/20 Unknown Other FDA Start: 06-14-2020 CLAVICULAR FRACT URE ORIF Brown DO, Jordan A 06/14/20 Unknown Other FDA Start: 06-14-2020 CLAVICULAR FRACT URE ORIF Brown DO, Jordan A 06/14/20 Unknown Other FDA Start: 06-14-2020 CLAVICULAR FRACT URE ORIF Brown DO, Jordan A 06/14/20 Unknown Other FDA Start: 06-14-2020 CLAVICULAR FRACT URE ORIF Brown DO, Jordan A 06/14/20 Unknown Other FDA Start: 06-14-2020 CLAVICULAR FRACT URE ORIF Brown DO, Jordan A 06/14/20 Unknown Other FDA Start: 06-14-2020 CLAVICULAR FRACT URE ORIF Brown DO, Jordan A 06/14/20 Unknown Other FDA Start: 06-14-2020 CLAVICULAR FRACT URE ORIF Brown DO, Jordan A 06/14/20 Unknown Other FDA Start: 06-14-2020 CLAVICULAR FRACT URE ORIF Brown DO, Jordan A 06/14/20 Unknown Other FDA Start: 06-14-2020 CLAVICULAR FRACT URE ORIF Brown DO, Jordan A 06/14/20 Unknown Other FDA Start: 06-14-2020 CLAVICULAR FRACT URE ORIF Brown DO, Jordan A 06/14/20 Unknown Other FDA Start: 06-14-2020 CLAVICULAR FRACT URE ORIF Brown DO, Jordan A 06/14/20 Unknown Other FDA Start: 06-14-2020 CLAVICULAR FRACT URE ORIF Brown DO, Jordan A 06/14/20 Unknown Other FDA Start: 06-14-2020 CLAVICULAR FRACT URE ORIF Brown DO, Jordan A 06/14/20 Unknown Other FDA Start: 06-14-2020 CLAVICULAR FRACT URE ORIF Brown DO, Jordan A 06/14/20 Unknown Other FDA Start: 06-14-2020 CLAVICULAR FRACT URE ORIF Brown DO, Jordan A 06/14/20 Unknown Other FDA Start: 06-14-2020 CLAVICULAR FRACT URE ORIF Brown DO, Jordan A 06/14/20 Unknown Other FDA Start: 06-14-2020 CLAVICULAR FRACT URE ORIF Brown DO, Jordan A 06/14/20 Unknown Other FDA Start: 06-14-2020 CLAVICULAR FRACT URE ORIF Brown DO, Jordan A 06/14/20 Unknown Other FDA Start: 06-14-2020 CLAVICULAR FRACT URE ORIF Brown DO, Jordan A 06/14/20 Unknown Other FDA Start: 06-14-2020 CLAVICULAR FRACT URE ORIF Brown DO, Jordan A 06/14/20 Unknown Other FDA Start: 06-14-2020 CLAVICULAR FRACT URE ORIF Brown DO, Jordan A 06/14/20 Unknown Other FDA Start: 06-14-2020 CLAVICULAR FRACT URE ORIF Brown DO, Jordan A 06/14/20 Unknown Other FDA Start: 06-14-2020 CLAVICULAR FRACT URE ORIF Brown DO, Jordan A 06/14/20 Unknown Other FDA Start: 06-14-2020 CLAVICULAR FRACT URE ORIF Brown DO, Jordan A 06/14/20 Unknown Other FDA Start: 06-14-2020 CLAVICULAR FRACT URE ORIF Brown DO, Jordan A 06/14/20 Unknown Other FDA Start: 06-14-2020 CLAVICULAR FRACT URE ORIF Brown DO, Jordan A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 (02/23/24414 : Genna Saha RN) Physical Hold Used (V): START (02/22/242207 : Larissa Calzada RN) Date Assessment was completed: 02/23/2024 Time patient was assessed: 0200 Description of behavior causing restraint/seclusion: verbalizing threats to self or others Type of intervention: Mechanical restraint Patient's immediate situation: no signs of physical distress Alternatives Attempted: Alternatives attempted and have been ineffective. Contraindications for Restraints: Reviewed contraindications for continued restraint use and agree to on-going need. The medication administered is appropriate for the patient's condition based on imminent danger failing alternatives attempted: Yes Patent's reaction to intervention: appears safe Patient's medical condition: vital signs stable Patient's behavioral condition: continues to display agitated, threatening, or violent behavior to self Plan: Continue restraints Kobe Morataya DO 02/23/24 0451 [facility] Work Phone: 12-23-2023 Hospital Discharge instructions Patient Education 12/23/2023 12:09:17 Urinary Tract Infection, Adult Urinary Tract Infection, Adult A urinary tract infection (UTI) is an infection of any part of the urinary tract. The urinary tract includes the kidneys, ureters, bladder, and urethra. These organs make, store, and get rid of urine in the body. An upper UTI affects the ureters and kidneys. A lower UTI affects the bladder and urethra. What are the causes? Most urinary tract infections are caused by bacteria in your genital area around your urethra, where urine leaves your body. These bacteria grow and cause inflammation of your urinary tract. What increases the risk? You are more likely to develop this condition if: You have a urinary catheter that stays in place. You are not able to control when you urinate or have a bowel movement (incontinence). You are female and you: ?Use a spermicide or diaphragm for control. ?Have low estrogen levels. ?Are . You have certain genes that increase your risk. You are sexually active. You take antibiotic medicines. You have a condition that causes your flow of urine to slow down, such as: ?An enlarged prostate, if you are male. ?Blockage in your urethra. ?A kidney stone. ?A nerve condition that affects your bladder control (neurogenic bladder). ?Not getting enough to drink, or not urinating often. You have certain medical conditions, such as: ?Diabetes. ?A weak disease-fighting system (immunesystem). ?Sickle cell disease. ?Gout. ?Spinal cord injury. What are the signs or symptoms? Symptoms of this condition include: Needing to urinate right away (urgency). Frequent urination. This may include small amounts of urine each time you urinate. Pain or burning with urination. Blood in the urine. Urine that smells bad or unusual. Trouble urinating. Cloudy urine. Vaginal discharge, if you are female. Pain in the abdomen or the lower back. You may also have: Vomiting or a decreased appetite. Confusion. Irritability or tiredness. A fever or chills. Diarrhea. The first symptom in older adults may be confusion. In some cases, they may not have any symptoms until the infection has worsened. How is this diagnosed? This condition is diagnosed based on your medical history and a physical exam. You may also have other tests, including: Urine tests. Blood tests. Tests for STIs (sexually transmitted infections). If you have had more than one UTI, a cystoscopy or imaging studies may be done to determine the cause of the infections. How is this treated? Treatment for this condition includes: Antibiotic medicine. Hasq-tvb-tgccjfm medicines to treat discomfort. Drinking enough water to stay hydrated. If you have frequent infections or have other conditions such as a kidney stone, you may need to see a health care provider who specializes in the urinary tract (urologist). In rare cases, urinary tract infections can cause sepsis. Sepsis is a life-threatening condition that occurs when the body responds to an infection. Sepsis is treated in the hospital with IV antibiotics, fluids, and other medicines. Follow these instructions at home: Medicines Take aftf-bvx-kypddfo and prescription medicines only as told by your health care provider. If you were prescribed an antibiotic medicine, take it as told by your health care provider. Do not stop using the antibiotic even if you start to feel better. General instructions Make sure you: ?Empty your bladder often and completely. Do not hold urine for long periods of time. ?Empty your bladder after sex. ?Wipe from front to back after urinating or having a bowel movement if you are female. Use each tissue only one time when you wipe. Drink enough fluid to keep your urine pale yellow. Keep all follow-up visits. This is important. Contact a health care provider if: Your symptoms do not get better after 1 2 days. Your symptoms go away and then return. Get help right away if: You have severe pain in your back or your lower abdomen. You have a fever or chills. You have nausea or vomiting. Summary A urinary tract infection (UTI) is an infection of any part of the urinary tract, which includes the kidneys, ureters, bladder, and urethra. Most urinary tract infections are caused by bacteria in your genital area. Treatment for this condition often includes antibiotic medicines. If you were prescribed an antibiotic medicine, take it as told by your health care provider. Do not stop using the antibiotic even if you start to feel better. Keep all follow-up visits. This is important. This information is not intended to replace advice given to you by your health care provider. Make sure you discuss any questions you have with your health care provider. Document Revised: 09/02/2020 Document Reviewed: 09/07/2020 [employer] Patient Education 2023 [employer]. 12/23/2023 12:09:17 Nonspecific Chest Pain, Adult, Wclb-uh-Rbuf Nonspecific Chest Pain Chest pain can be caused by many different conditions. Some causes of chest pain can be life-threatening. These will require treatment right away. Serious causes of chest pain include: Heart attack. A tear in the body's main blood vessel. Redness and swelling (inflammation) around your heart. Blood clot in your lungs. Other causes of chest pain may not be so serious. These include: Heartburn. Anxiety or stress. Damage to bones or muscles in your chest. Lung infections. Chest pain can feel like: Pain or discomfort in your chest. Crushing, pressure, aching, or squeezing pain. Burning or tingling. Dull or sharp pain that is worse when you move, cough, or take a deep breath. Pain or discomfort that is also felt in your back, neck, jaw, shoulder, or arm, or pain that spreads to any of these areas. It is hard to know whether your pain is caused by something that is serious or something that is not so serious. So it is important to see your doctor right away if you have chest pain. Follow these instructions at home: Medicines Take dlmo-wew-poicqeb and prescription medicines only as told by your doctor. If you were prescribed an antibiotic medicine, take it as told by your doctor. Do not stop taking the antibiotic even if you start to feel better. Lifestyle Rest as told by your doctor. Do not use any products that contain nicotine or tobacco, such as cigarettes, e-cigarettes, and chewing tobacco. If you need help quitting, ask your doctor. Do not drink alcohol. Make lifestyle changes as told by your doctor. These may include: ?Getting regular exercise. Ask your doctor what activities are safe for you. ?Eating a heart-healthy diet. A diet and nutrition helper (dietitian) can help you to learn healthy eating options. ?Staying at a healthy weight. ?Treating diabetes or high blood pressure, if needed. ?Lowering your stress. Activities such as yoga and relaxation techniques can help. General instructions Pay attention to any changes in your symptoms. Tell your doctor about them or any new symptoms. Avoid any activities that cause chest pain. Keep all follow-up visits as told by your doctor. This is important. You may need more testing if your chest pain does not go away. Contact a doctor if: Your chest pain does not go away. You feel depressed. You have a fever. Get help right away if: Your chest pain is worse. You have a cough that gets worse, or you cough up blood. You have very bad (severe) pain in your belly (abdomen). You pass out (faint). You have either of these for no clear reason: ?Sudden chest discomfort. ?Sudden discomfort in your arms, back, neck, or jaw. You have shortness of breath at any time. You suddenly start to sweat, or your skin gets clammy. You feel sick to your stomach (nauseous). You throw up (vomit). You suddenly feel lightheaded or dizzy. You feel very weak or tired. Your heart starts to beat fast, or it feels like it is skipping beats. These symptoms may be an emergency. Do not wait to see if the symptoms will go away. Get medical help right away. Call your local emergency services (911 in the [place] Do not drive yourself to the hospital. Summary Chest pain can be caused by many different conditions. The cause may be serious and need treatment right away. If you have chest pain, see your doctor right away. Follow your doctor's instructions for taking medicines and making lifestyle changes. Keep all follow-up visits as told by your doctor. This includes visits for any further testing if your chest pain does not go away. Be sure to know the signs that show that your condition has become worse. Get help right away if you have these symptoms. This information is not intended to replace advice given to you by your health care provider. Make sure you discuss any questions you have with your health care provider. Document Revised: 12/11/2022 Document Reviewed: 12/11/2022 [employer] Patient Education 2023 [employer]. Follow Up Care 12/23/2023 09:16:07 With:Rojelio Durham Address: [address] [place] [address] [place] [address] Business (1) When:12/26/2023 11:54:20 Comments:Call Dr for diagnosis based follow up [facility] 12-23-2023 Evaluation + Plan note Extrac christelle from: Title:ED Note Author:Glenn Quiroga PA-C te:12/23/23 Nonspecific chest pain (R07. 9: Chest pain, unspecified) UTI (urinary tract infection) (N39.0: Urinary tract infection, site not specified) Orders: cephalexin, 500 mg = 1 cap(s), Oral, q6hr, X 7 day(s), # 28 cap(s), Refills(s) 0, Pharmacy: [facility]/pharmacy #[id number], 165, cm, 12/23/23 9:23:00 EST, Height/Length Dosing, 68.1, kg, 12/23/23 9:23:00 EST, Weight Dosing diphenhydrAMINE, 25 mg = 1 cap(s), Cap, Oral, Once, Stop date 12/23/23 9:36:00 EST, STAT, Start date 12/23/23 9:36:00 EST, 12/23/23 9:36:00 EST ondansetron, 4 mg = 1 tab(s), Oral, q8hr, PRN Nausea/Vomiting, # 12 tab(s), Refills(s) 0, Pharmacy: [facility]/pharmacy #[id number], 165, cm, 12/23/23 9:23:00 EST, Height/Length Dosing, 68.1, kg, 12/23/23 9:23:00 EST, Weight Dosing Basic Metabolic Panel Beta hCG Qual CBC w/ Auto Diff Drug Screen Urine ED Cardiac Monitoring eGFR Group A Strep by PCR Mononucleosis Screen Oxygen Saturation PT & PTT Rapid Strep w/rfx Troponin 0 Hr. Troponin 1 Hr. UA with Cult Rflx Urine Culture XR Chest 2 Views Diagnostic Tests Pending * Urine Culture 12/23/23 [facility] [id number] NoteED Patient Education Note Gastroenterology Nonspecific Chest Pain Chest pain can be caused by many different conditions. Some causes of chest pain can be life-threatening. These will require treatment right away. Serious causes of chest pain include: ??? Heart attack. ??? A tear in the body's main blood vessel. ??? Redness and swelling (inflammation) around your heart. ??? Blood clot in your lungs. Other causes of chest pain may not be so serious. These include: ??? Heartburn. ??? Anxiety or stress. ??? Damage to bones or muscles in your chest. ??? Lung infections. Chest pain can feel like: ??? Pain or discomfort in your chest. ??? Crushing, pressure, aching, or squeezing pain. ??? Burning or tingling. ??? Dull or sharp pain that is worse when you move, cough, or take a deep breath. ??? Pain or discomfort that is also felt in your back, neck, jaw, shoulder, or arm, or pain that spreads to any of these areas. It is hard to know whether your pain is caused by something that is serious or something that is not so serious. So it is important to see your doctor right away if you have chest pain. Follow these instructions at home: Medicines ??? Take jjrs-uer-kuklsac and prescription medicines only as told by your doctor. ??? If you were prescribed an antibiotic medicine, take it as told by your doctor. Do not stop taking the antibiotic even if you start to feel better. Lifestyle ??? Rest as told by your doctor. ??? Do not use any products that contain nicotine or tobacco, such as cigarettes, e-cigarettes, andchewing tobacco. If you need help quitting, ask your doctor. ??? Do not drink alcohol. ??? Make lifestyle changes as told by your doctor. These may include: ? Getting regular exercise. Ask your doctor what activities are safe for you. ? Eating a heart-healthy diet. A diet and nutrition helper (dietitian) can help you to learn healthy eating options. ? Staying at a healthy weight. ? Treating diabetes or high blood pressure, if needed. ? Lowering your stress. Activities such as yoga and relaxation techniques can help. General instructions ??? Pay attention to any changes in your symptoms. Tell your doctor about them or any new symptoms. ??? Avoid any activities that cause chest pain. ??? Keep all follow-up visits as told by your doctor. This is important. You may need more testing if your chest pain does not go away. Contact a doctor if: ??? Your chest pain does not go away. ??? You feel depressed. ??? You have a fever. Get help right away if: ??? Your chest pain is worse. ??? You have a cough that gets worse, or you cough up blood. ??? You have very bad (severe) pain in your belly (abdomen). ??? You pass out (faint). ??? You have either of these for no clear reason: ? Sudden chest discomfort. ? Sudden discomfort in your arms, back, neck, or jaw. ??? You have shortness of breath at any time. ??? You suddenly start to sweat, or your skin gets clammy. ??? You feel sick to your stomach (nauseous). ??? You throw up (vomit). ??? You suddenly feel lightheaded or dizzy. ??? You feel very weak or tired. ??? Your heart starts to beat fast, or it feels like it is skipping beats. These symptoms may be an emergency. Do not wait to see if the symptoms will go away. Get medical help right away. Call your local emergency services (911 in the [place] Do not drive yourself to the hospital. Summary ??? Chest pain can be caused by many different conditions. The cause may be serious and need treatment right away. If you have chest pain, see your doctor right away. ??? Follow your doctor's instructions for taking medicines and making lifestyle changes. ??? Keep all follow-up visits as told by your doctor. This includes visits for any further testing if your chest pain does not go away. ??? Be sure to know the signs that show that your condition has become worse. Get help right away if you have these symptoms. This information is not intended to replace advice given to you by your health care provider. Make sure you discuss any questions you have with your health care provider. Document Revised: 12/11/2022 Document Reviewed: 12/11/2022 [employer] Patient Education ? 2023 [employer] Obstetrics and Gynecology Urinary Tract Infection, Adult A urinary tract infection (UTI) is an infection of any part of the urinary tract. The urinary tractincludes the kidneys, ureters, bladder, and urethra. These organs make, store, and get rid of urinein the body. An upper UTI affects the ureters and kidneys. A lower UTI affects the bladder and urethra. What are the causes? Most urinary tract infections are caused by bacteria in your genital area around your urethra, where urine leaves your body. These bacteria grow and cause inflammation of your urinary tract. What increases the risk? You are more likely to develop this conditio (more content not included)... [facility]10-27-2024 History of Present illness Narrative* Nicolasa Armas NP - 12/06/2023 1:10 PM EDT Images from the original note were not included. HPI: Historian of HPI: patient Antoinette Recio is a 28 y.o. female who presents today to the Urgent Care with the following complaints and denials due to tooth problems which has been present for 2 week(s) C/O Denies Symptom Comments [x] [] Tooth pain Located lower left tooth [x] [] Gum swelling B/L sides of mouth [x] [] Gum tenderness [x] [] discharge [x] [] Difficulty chewing [x] [] Difficulty drinking liquids cold liquids [] [x] Dental visit in past 12 months Maybe 1.5 years Additional Comments: pt has taken ibuprofen OTC medication with relief Pt states that while she was she was eating a lot of ice chips & admits to grinding her teeth at night which could be the cause of the cracked tooth. Draining from the lower lt tooth, swelling around the LT cheek Admits to chills, draining coming from the tooth area. Denies NVD, fevers ROS: A complete system ROS was performed and negative aside from the pertinent positives noted in the HPI and PE. Examination General Examination: General Examination: alert, orients, normal affect, well appearing, in no acute distress, well developed, well nourished Head: normocephalic, atraumatic Eyes: sclera non-icteric Ears: TM intact, clear, mild effusion. Auditory canal non-inflamed Nose: nares patent Mouth: molars 18, 19, and 20 appear broken with decayed appearance. Surrounding gum tissue with swelling and erythema. Neck/Thyroid: trachea midline. Left tonsillar lymphadenopathy with tenderness Skin: left sided facial swelling Heart: no murmurs, regular rate and rhythm, S1, S2 normal Lungs: clear to auscultation bilaterally Extremities: no edema, no cyanosis Neurologic: nonfocal Psych: alert, oriented, cognitive function intact, cooperative with exam 1. Tooth abscess (Primary) Diagnosis and treatment discussed. May rotate tylenol with ibuprofen. Apply cool compresses to facefor swelling. Follow soft diet and advance as tolerated. Must follow-up with [facility]. To ER forred flag symptoms. - amoxicillin (Amoxil) 875 MG tablet; Take 1 tablet (875 mg) by mouth in the morning and 1 tablet (875 mg) before bedtime. Do all this for 10 days. Dispense: 20 tablet; Refill: 0 - ibuprofen 800 MG tablet; Take 1 tablet (800 mg) by mouth every 6 (six) hours if needed for mild pain or moderate pain for up to 7 days Dispense: 28 tablet; Refill: 0 - ketorolac (Toradol) injection 30 mg documented in this encounterSaint Louis University Health Science [id number] Consult note Author Dar Nation [facility] November 26, 2023 1:32pm Note Date/Time November 26, 2023 1 :32pm [facility] [address] [place] [address] Psychiatry Consult Note Signed Patient: Antoinette Recio MR#: [id number] : 1995 Acct:[id number] Age/Sex: 28 / F Adm Date: 4 Loc: Room: [address] [place] [address] Type : ADM IN Attending Dr: Genevieve [...] and no suicidality Insight: Good Judgment: Good [facility] Medical History (Updated 11/26/23 @ 05:33 by [...] By: <Electronically signed by Dar Nation MD> 11/26/231331 [facility] Work Phone: 1(562) 473-457210-17-2024 History and physical note Author Bret Javier [facility] November 26, 2023 5:36am Note Date/Time November 26, 2023 5 :26am [facility] [address] [place], [place] [id number] Hospitalist H&P Signed Patient: Antoinette Recio MR#: [id number] : 1995 Acct:[id number] Age/Sex: 28 / F Adm Date: 4 Loc: 4C Room: 9P4768-9 Type: ADM IN Attending Dr: Bret Javier DO Copies to: Donna Prsaad DREW Javier, ~ HPI DATE OF EXAMINATION: 11/26/23 CHIEF COMPLAINT: Tachycardia, depression, suicidal ideation. HISTORY OF PRESENT ILLNESS: This is a 28-year-old woman who went to the [facility] emergency room yesterday afternoon with supraventricular tachycardia. She also expressed suicidal ideation. She had taken a bite of a mushroom chocolate bar and had been using medical marijuana and also drinking wine healthy sleep. She had not eaten in 2 days. She is about 2 weeks after giving to her son which was a normal vaginal delivery at the [facility]. She had some preeclampsia before that so she was medicated with labetalol. The ER at [facility] [place] asked their WATERSHED COORDINATOR doctor with the patient to be admitted there but the WATERSHED COORDINATOR doctor felt that the patient needed psychiatry. The ER then called [facility] which has WATERSHED COORDINATOR but does not have inpatient psychiatry. Their ER then called the [facility] which has inpatient psychiatric unit but does not have WATERSHED COORDINATOR, and then they called [facility]. This patient was hospitalized on the psychiatric wing 2 times in the year 2022. The patient says that she had been having a lot of stress today. She had gone outside to take a walk. She says that she took a small bite of a mushroom trilobar that you get from vape shop. She had a lot of chest [...] sinus tachycardia. When the ER physician at [facility] discussed the case with me he said [...] in the intensive care unit here at [facility] her blood pressure and heart rate have [...] except as mentioned elsewhere in the documentation. [facility] Medical History (Updated 11/26/23 @ 05:33 by [...] Bret Javier DO> 11/26/23 0536 [facility] Work Phone: [phone]) 582-860010-16-2024 Telephone encounter Note* Telephone Encounter - Alexis Art DO - 11/25/2023 8:32 PM EDT [facility]SF[facility] from [place] [facility] to [facility] Report given by : Dr. Sagastume Patient is a 28 year old White female with a history of pre-eclampsia, currently 2-weeks post- who initially presented to [place] ED on 11/25/23 for the complaint of [...] 421 Troponin negative Patient was accepted to [facility] regular nursing floor under the care of [...] case. Alexis Art DO 11/25/23 8:32 PM [id number] Miscellaneous Notes* Telephone Encounter - Alexis Art DO - 11/25/2023 8:32 PM EDT [facility] from [place] [facility] to [facility] Report given by : Dr. Sagastume Patient is a 28 year old White female with a history of pre-eclampsia, currently 2-weeks post- who initially presented to [place] ED on 11/25/23 for the complaint of [...] 421 Troponin negative Patient was accepted to [facility] regular nursing floor under the care of [...] DO 11/25/23 8:32 PM documented in this [id number] History of Present illness Narrative* Sherine Conn LPN - 11/04/2023 10:50 AM EDT Reason for Appointment: Patient ID: Antoinette Recio is a 28 y.o. female who presents for Routine Visit Patient presents today for Return OB appointment. MEDICATIONS Current Outpatient Medications Medication Instructions buPROPion XL (WELLBUTRIN XL) 150 mg, Oral, Every morning ALLERGIES Allergies Allergen Reactions Zithromax [Azithromycin] Swelling Throat closing PROBLEMS Active Ambulatory Problems Diagnosis Date Noted No Active Ambulatory Problems Resolved Ambulatory Problems Diagnosis Date Noted No Resolved Ambulatory Problems No Additional Past Medical History HISTORY PAST MEDICAL HISTORY SOCIAL HISTORY History reviewed. No pertinent past medical history. Social History Tobacco Use Smoking status: Not on file Smokeless tobacco: Not on file Substance Use Topics Alcohol use: Not on file Drug use: Not on file FAMILY HISTORY No family history on file. SURGICAL HISTORY Past Surgical History: Procedure Laterality Date STOMACH SURGERY gastric sleeve TONSILLECTOMY REVIEW OF SYSTEMS Review of Systems: Review of Systems Constitutional: Negative. HENT: Negative. Eyes: Negative. Respiratory: Negative. Cardiovascular: Negative. Gastrointestinal: Negative. Genitourinary: Negative. Musculoskeletal: Negative. Skin: Negative. Neurological: Negative. All other systems reviewed and are negative. Hematological: Negative. Endocrine: Negative. Allergic/Immunologic: Negative. OBJECTIVE Objective: Physical Exam Constitutional: Appearance: Normal appearance. She is well-developed. Cardiovascular: Rate and Rhythm: Normal rate and regular rhythm. Pulmonary: Effort: Pulmonary effort is normal. Breath sounds: Normal breath sounds. Abdominal: General: Bowel sounds are normal. There is no distension. Palpations: Abdomen is soft. Tenderness: There is no abdominal tenderness. There is no guarding or rebound. Musculoskeletal: General: No swelling. Normal range of motion. Right lower leg: No edema. Left lower leg: No edema. Neurological: Mental Status: She is alert and oriented to person, place, and time. Skin: General: Skin is warm and dry. Psychiatric: Mood and Affect: Mood normal. Behavior: Behavior normal. Vitals and nursing note reviewed. Exam conducted with a rate clerk present. Vitals: Estimated body mass index is 25.7 kg/m as calculated from the following: Height as of 06/21/20: 5' 5.5 . Weight as of this encounter: 156 lb 12.8 oz. BP: 130/80 No LMP recorded. Patient is . ASSESSMENT & PLAN ICD-10-CM 1. 34 weeks gestation of Z3A.34 POCT urinalysis dipstick manually resulted Return OB: Pt is a transfer of care from outside facility. Pt has h/o gastric sleeve and hypertension in previous . Pt has h/o vaginal deliveries. Pt has complaints of restless legs and veins pushing out. Pt has undergone a lot of stress during this . Pt currently on wellbutrin Patient presents today for a routine obstetrics appointment. Patient is currently 34w5d . Patient states she is doing well but has complaints of being tired due to current . Patient has verbalizesfrequent movement. labor precautions was discussed/given and patient was instructed to perform kick counts three times a day. Orders Placed This Encounter Procedures POCT urinalysis dipstick manually resulted Follow Up: Patient is to return to office in 2 week for routine OB appointment. Documented by Sherine Conn LPN on behalf of: Eligio Mathew DO documented in this encounterSaint Louis University Health Science [id number] Miscellaneous Notes* Telephone Encounter - June Turner CMA - 10/15/2023 3:13 PM EDT Tried calling patient regarding missed ultrasound appt and consult with Dr. Anaya on 10/15/2023, underwriter solicitation director tried both numbers that are on file but both did not work will send letter to her ob office letting them know she missed her appt today. [facility] Telephone encounter Note* Telephone Encounter - June Turner CMA - 10/15/2023 3:13 PM EDT Tried calling patient regarding missed ultrasound appt and consult with Dr. Anaya on 10/15/2023, underwriter solicitation director tried both numbers that are on file but both did not work will send letter to her ob office letting them know she missed her appt today. [facility] BasisCode [id number] History of Present illness Narrative* Tammi Yu RN - 08/12/2023 1:00 PM EDT Headache/epigastric pain/blurry vision/swelling? Chronic SWEET's,right food swelling Cramping/contractions? Round ligament pressure Abnormal vaginal discharge? no Spotting/vaginal bleeding? no Loss of fluid like your water may have broken? no Cats in the home? no Do you change the litter box? N/a Flu vaccine? no Genetic testing done this here or other office? no Have you been seen here at [facility] in a previous ? Yes Recent ER visits or hospitalizations? no Bring blood sugar log or meter with you today? (Please bring them with you for every visit at [facility]) going to get glucose testing done in next couple of days Traveled outside the country in the past 6 month no Any concerns that you would like me to mention to the provider today? Dizziness in last few weeks and leg pain * Celi Wilks MD - 08/12/2023 1:00 PM EDT [facility] Consult Note Reason For Consult: HPI: Antoinette Recio is a 28 y.o. @ 22w5d who presented for consultation from Bret Simmons, WATER QUALITY CONTROL ENGINEER* regarding Chief Complaint Patient presents with CHTN H/X GDM H/X Gastric Bypass Patient Active Problem List Diagnosis Chronic hypertension affecting Family history of congenital heart defect Nausea/vomiting in History of gestational diabetes mellitus (GDM) in prior , currently History of sleeve gastrectomy History of alcohol abuse Gastroesophageal reflux disease without esophagitis Overweight (BMI 25.0-29.9) Vitamin D deficiency She reports that she is doing well. She reports normal movements and she denies LOF, contractions, vaginal bleeding, headache, blurry vision, RUQ pain and edema. The primary encounter diagnosis was Chronic hypertension complicating or reason for care during , second trimester. Diagnoses of History of gestational diabetes mellitus (GDM) in prior , currently , History of sleeve gastrectomy, History of alcohol abuse, Family history ofcongenital heart defect, and 22 weeks gestation of were also pertinent to this visit. She has opted out of aneuploidy screening Review of systems: Review of systems was noncontributory Complications: Problem List Items Addressed This Visit Other Family history of congenital heart defect History of gestational diabetes mellitus (GDM) in prior , currently History of sleeve gastrectomy History of alcohol abuse Other Visit Diagnoses Chronic hypertension complicating or reason for care during , second trimester - Primary 22 weeks gestation of PMH: Past Medical History: Diagnosis Date Alcoholism ([facility]) Anxiety Depression Gestational diabetes Hypertension PSHIST: Past Surgical History: Procedure Laterality Date BARIATRIC SURGERY 2019 TONSILLECTOMY OB Hx: OB History Para Term AB Living 4 2 2 2 2 SAB IAB Ectopic Multiple Live Births 2 1 2 # Outcome Date GA Lbr Matthias/2nd Weight Sex Type Anes PTL Lv 4A Term 09/15/16 41w3d 3.629 kg M Vag-Spont EPI N MARINA Complications: HTN in , chronic 4B Current 3 Term 09/01/19 37w0d 3.345 kg M Vag-Spont EPI N MARINA Complications: Gestational diabetes mellitus, HTN in , chronic 2 SAB 2017 4w0d 1 SAB 2013 5w0d PREECLAMPSIA SCREEN ([place] Preventive Services Task Force) Patient is at high risk if 1 or more factors present. Incidence of preeclampsia is ? 8%: Prior preeclampsia NO Multiple gestation NO Chronic hypertension YES Type 1 or 2 diabetes NO Renal disease NO Autoimmune disease NO (Lupus, APLS) Patient is at moderate risk is several risk factors are present: Nulliparity NO Obesity (BMI ? 30) NO Family history of preeclampsia NO (Mother, sister) NO Sociodemographic characteristics NO (AA, low socioeconomic status) Age ? 35 NO Personal history factor NO (Previous SGA, adverse outcome, > 10 years from last ) Allergies: Allergies Allergen Reactions Azithromycin Anaphylaxis Meds: Prior to Admission medications Medication Sig Start Date End Date Taking? Authorizing Provider aspirin 81 mg chewable tablet Chew 1 tablet (81 mg total) and swallow in the morning. 06/03/23 Yes MARISOL Marby no115/iron/folic acid ( 19 ORAL) Take by mouth. Yes Not In System Ref Prov doxylamine (UNISOM) 25 mg tablet Take 1 tablet (25 mg total) by mouth nightly as needed for sleep or nausea. Patient not taking: Reported on 08/12/2023 04/14/23 MARISOL Mabry pyridoxine, vitamin B6, (B-6) 25 mg tablet Take 1 tablet (25 mg total) by mouth in the morning and 1 tablet (25 mg total) at noon and 1 tablet (25 mg total) in the evening and 1 tablet (25 mg total) before bedtime. Patient not taking: Reported on 08/12/2023 04/14/23 MARISOL Mabry SH: Social History Socioeconomic History Marital status: Spouse name: Not on file Number of children: Not on file Years of education: Not on file Highest education level: Not on file Occupational History Not on file Tobacco Use Smoking status: Former Current packs/day: 0.00 Types: Cigarettes Quit date: 03/24/2023 Years since quittin.3 Smokeless tobacco: Never Vaping Use Vaping status: Former Start date: 03/24/2023 Substances: Nicotine Substance and Sexual Activity Alcohol use: No Comment: SOBER 3 MONTHS Drug use: No Sexual activity: Yes Partners: Male control/protection: None Other Topics Concern Not on file Social History Narrative Not on file Social Determinants of Health Financial Resource Strain: Medium Risk (05/05/2023) Overall Financial Resource Strain (CARDIA) Difficulty of Paying Living Expenses: Somewhat hard Food Insecurity: No Food Insecurity (08/12/2023) Hunger Screening Food Insecurity - Worry: Never True Food Insecurity - Inability: Never True Transportation Needs: Not on file Physical Activity: Not on file Stress: Not on file Social Connections: Not on file Interpersonal Safety: Not At Risk (05/05/2023) Humiliation, Afraid, Rape, and Kick questionnaire Fear of Current or Ex-Partner: No Emotionally Abused: No Physically Abused: No Sexually Abused: No Housing Instability: Patient Declined (05/05/2023) Housing Instability Housing Instability: Patient Declined Physical Exam: Vital Signs Vitals: 08/12/23 1254 BP: 115/66 BP Site: Left Arm BP Postition: Sitting BP CUFF SIZE: M (9-13 inches) Pulse: 64 Weight: 73.5 kg (162 lb) Height: 165.1 cm (5' 5 ) Physical Exam: Gen: Not in acute distress, alert and oriented. Eyes: Pupils equal and reactive Chest: Nonlabored breathing Cardiac: Pulse was regular on vital signs assessment Abdomen: Gravid Skin/extremities: Appears intact. No visible lesions MS:no visible edema Neuro: No focal deficits Assessment/Plan 28 y.o. @ 22w5d here for consultation regardin. Chronic hypertension complicating or reason for care during , second trimester Reports that she was diagnosed with chronic hypertension since her teenage years. She was on antihypertensive therapy in the past. She had underwent sleeve gastrectomy and has improvement of her blood pressure. She has not currently on antihypertensive medication. She is taking baby aspirin daily that she reports that was okayed from her sleeve gastrectomy standpoint. Chronic hypertension (CHTN) is defined as either a history of hypertension prior to or a blood pressure of >140/90 prior to 20 weeks of gestation. Hypertension occurs in 1-5% of women. Maternal complications include worsening HTN, superimposed preeclampsia, eclampsia, HELLP syndrome. complications include growth restriction, oligohydramnios, placental abruption, , and . The more severe the hypertension, the higher the incidence of the above complications. Reviewed the physiologic changes in with normal physiologic decrease in systemic vascularresistance leads to a decrease in blood pressure, with its pat at mid gestation, followed by return to prepregnancy levels by the third trimester. It is sometimes difficult to distinguish preeclampsia from a hypertensive crisis later in , as such, I recommend getting baseline labs to help distinguish these later in . Baseline labs include: LFTs, CBC, creatinine, urine analysis, protein creatinine ratio for proteinuria assessment. Blood pressure (BP) goal is <140/90 (normal range) Medical therapy recommendations: In conclusion, the CHAP trial provides evidence that the treatment of mild chronic hypertension in , compared to no treatment unless hypertension becomes severe, reduces the risk of maternaland morbidity without increasing the risk of SGA infants or other morbidities. Based on the available evidence, [facility] recommends treatment with antihypertensive therapy for mild chronic hypertension in to a goal BP <140/90 mm Hg. Patients with treated chronic hypertension should continue established antihypertensive therapy during or change to a regimen compatible with to achieve this treatment goal. ACEI and ARB are absolutely contraindicated in , and care should be exercised regarding the use of diuretics such as furosemide and hydrochlorothiazide. In general, for the initial treatmentof women with chronic hypertension who require pharmacologic therapy, labetalol, methyldopa or nifed ipine are recommended. Home blood pressure monitoring should be encouraged. Based on previously published studies, the USPSTF recommends low dose aspirin (81mg daily) as it reduces the risk of preeclampsia by 24%, by 14%, and IUGR by 20% for women who are at risk for preeclampsia when started after 12 weeks of gestation. EKG and echocardiogram were ordered in view of longstanding hypertension. Since her blood pressure has been well controlled off medications after her weight loss it is unlikely to be a secondary cause of hypertension at this time. 2. History of gestational diabetes mellitus (GDM) in prior , currently 3. History of sleeve gastrectomy I discussed at length with the patient that women with successful weight loss and resolution of chronic medical conditions usually do very well in . There are reports of slight increased risks of , PPROM and gestational diabetes in women with history of bariatric surgery, but theserisks are felt to be confounded by residual obesity in the majority of patients. Nutritional deficiency is certainly a concern in these patients, regardless of bariatric procedure type. Most notable deficiencies occur in women following malabsorptive procedures, and are less notable following restrictive procedures like banding, which this patient has. Most common deficiencies include protein, iron, B12, folate, vitamin D and calcium. Standard recommendation is for all women with prior bariatric surgery to have these values evaluated initially in early , and supplemented as necessary. In the absence of deficiency, it is reasonable to monitor a CBC, iron,ferritin, calcium and vitamin D level each trimester. If she has issues with suboptimal weight gain during , nutrition consult would be advised.Weight loss in or inadequate weight gain have been associated with higher risk of adversepregnancy outcome. Dumping syndrome may occur following bariatric surgery after ingestion of large sugar or carbohydrate loads. This includes symptoms of bloating, nausea, vomiting, diarrhea, with consequent hypoglycemia. Alternate testing for GDM may be considered in cases where dumping syndrome is likely. She reports that she has tolerated 1 hour GCT in the past. Reports that she did not have dumping syndrome. I think it is reasonable to try the 1 hour GCT and see how she does. If she declines that or she desires the fingerstick blood sugars I would recommend checking fingerstick blood sugars for 1-2 weeks and we will be happy to review for GDM diagnosis accordingly. 4. History of alcohol abuse She reports that she had issues with alcohol use disorder after her sleeve gastrectomy. Reports last alcohol use was 3 months ago upon confirmation of . Reports that she is doing well without any cravings at this time. Recommend continue with abstinence. 5. Family history of congenital heart defect Her mother was present with her today. She reports that she had her 1st daughter was born with a congenital cardiac defect where she was told that the heart was not developing normally. She subsequently underwent cardiac surgery and had unfortunately at 2-1/2 months of age. No other family members with any cardiac conditions. Patient reports that she had been asymptomatic has never had any cardiac issues. Detailed anatomic assessment was done today and cardiac views were within normal limits. Reviewed with them the limitations of ultrasound especially in view of VSD and coarctation and that assessment would be recommended. 6. 22 weeks gestation of Of note she was complaining of lower extremity varicosities. These have been chronic. They worsenedduring and had done the same with her prior . Precautions were given regarding worsening to discuss with her primary OB. If she does have any acute pain or acute swelling suggestive of a DVT to bring to the attention of her OB for further evaluation. Postnatally follow-up with vascular surgery may be reasonable. Chronic hypertension complicating or reason for care during , second trimester [O10.912] Recommendations: Continue baby aspirin daily as long as okay per bariatric team Recommend evaluation for nutrition deficiencies Q trimester. This can be ordered by her primary OB office. CBC, iron, ferritin, calcium and vitamin D level as well as vitamin B12 level Serial growth assessment every 4 weeks after anatomy scan surveillance is recommended to start at 32 weeks, or earlier if poorly controlled HTN, FGR, or preeclampsia. Delivery from 38 0/7 weeks to 39 6/7 weeks of gestation for women with chronic hypertension who arenot prescribed medication or from 37 0/7 weeks to 39 6/7 weeks of gestation for women whose chronichypertension is well-controlled with medication. Plan reviewed with patient. She vocalized understanding all questions answered. The patient is to continue with routine care in your office [facility], the CDC, and other organizations representing maternal and public health professionals recommend that , , and lactating people and those considering receive the COVID-19 vaccination. Vaccination is the best method to reduce maternal and complications of SARS-CoV-2 infection. This document was created with [employer] technology. Though I make every effort to review the dictation as it is transcribed, on occasion the spoken word can be misinterpreted by the technology leading to inappropriate words, phrases, or sentences. This note is addressed to the requesting provider as a consultation for clinical guidance. Specificmedical abbreviations are occasionally used and those are generally approved by the [place]?Board of?Obstetrics and?Gynecology?as well as?May ratliff abbreviations. The above plan of care was based solely on the diagnoses for which a consultation was requested. ?More frequent testing may be indicated based on her other medical/obstetrical conditions. The management of other or medical conditions is beyond the scope of requested consultation and will doretha clark to be followed by the primary manufacturing industrial engineer or primary care provider. Thank you for allowing me to participate in her care. Please contact me if you have any concerns. Total time spent was 60 minutes: Preparing to see the patient (e.g., review of tests) Obtaining and/or reviewing separately obtained history Performing a medically appropriate examination and/or evaluation Counseling and educating the patient/family/caregiver Ordering medications, tests, or procedures Referring and communicating with other health animal care provider (not separately reported) Documenting clinical information in the electronic or other health record Independently interpreting results (not separately reported) and communicating results to the patient/family/caregiver Care coordination (not separately reported) documented in this encounterBarn[facility]04-24-[facility] History of Present illness Narrative* MARISOL Mabry - 06/03/2023 3:15 PM EDT Routine OB visit 28 y.o. at 12w5d. She denies cramping or abdominal pain. She denies vaginal bleeding or vaginal loss of fluid. Tolerating regular diet without emesis. No concerns today. Vitals: 06/03/23 1510 BP: 132/80 Weight: 77.7 kg (171 lb 3.2 oz) complicated by: Patient Active Problem List Diagnosis Chronic hypertension affecting Family history of congenital heart defect Nausea/vomiting in History of gestational diabetes mellitus (GDM) in prior , currently History of sleeve gastrectomy History of alcohol abuse Gastroesophageal reflux disease without esophagitis Overweight (BMI 25.0-29.9) Vitamin D deficiency 1. Reviewed early danger signs and how to contact provider. 2. Discussed genetic testing. Patient declines all. 3. Baby asa started for hx chronic htn. 4. MFM referral placed. 5. Educational information given. 6. Questions answered 7. Return 4 weeks. MARISOL Mabry 06/03/23 1528 documented in this encounterBarn[facility]ville [facility]03-26-2024 History of Present illness Narrative* Nieves Velasquez MD - 05/05/2023 3:00 PM EDT Gynecoid pelvis PH baseline labs within normal limits All questions answered No recent concerns documented in this encounterBarnesville Hospital03-05-2024 History of Present illness Narrative* Lynn Deleon, DREW-MILTON - 04/14/2023 1:45 PM EST OB Intake Video Visit 27 y.o. at unknown gestation contacted through [employer] for OB intake video visit. verified and verbal consent obtained for video visit. Patient and provider both currently located in the [facility]. This was a planned . FOB [...] 2019, hx alcoholabuse. 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 Discussed testing. Pt declines all. The patient reports that there is not domestic violence in her life. Discussed exercise, diet and weight gain. Current BMI 28. Discussed smoking, alcohol use and drug use. Quit vaping / smoking 3 weeks ago, sober from alcohol 3 months. Discussed early danger signs and when/how to notify provider. Reviewed CNM / FIRE SPRINKLER FITTER care, collaboration & referral to WATERSHED COORDINATOR as needed. Reviewed course of care. Discussed CDC recommendation for exclusive for the first 6 months. Patient has not been covid vaccinated. Discussed recommendations in . Patient is taking an OTC vitamin. Will offer flu shot in the office. All questions answered. Educational materials provided through [employer]. Ultrasound and labs ordered. Appointment scheduled for initial OB visit with provider on 05/05/23. MARISOL Mabry 04/14/23 1451 * Verenice Justice LPN - 04/14/2023 1:45 PM EST RUA-GRX-ALGKUET. Chronic HTN with no meds or PCP-baseline labs ordered. HX GDMA1-EARLY 1 HR GTT. Last pap was 3 years negative. Pt declined genetic testing. Stopped tobacco use and vaping 3 weeks ago.marino from alcohol for 3 months. documented in this encounterBarnesville Hospital03-05-2024 Miscellaneous Notes* Addendum Note - MARISOL Mabry - 04/14/2023 1:45 PM ESTAddended by: LYNN DELEON on: 04/14/2023 03:15 PM Modules accepted: Orders documented in this encounterBarnesville Hospital03-05-2024 Note* Addendum Note - MARISOL Mabry - 04/14/2023 1:45 PM ESTAddended by: LYNN DELEON on: 04/14/2023 03:15 PM Modules accepted: Orders [facility]10-[facility] Discharge summary Author Dar Nation [facility] November 30, 2022 10:16am Note Date/Time November 30, 2022 1 0:14am [facility] [address] [place] [address] Discharge Summary Signed Patient: Antoinette Recio MR#: [id number] : 1995 Acct:[id number] Age/Sex: 27 / F Adm Date: 10/19/2 3 Loc: 1S Room: 8F1707-[address]: Dar Nation MD Copies to: Dar Nation MD NO FAMILY PHYSICIAN~ Providers Date of Discharge: 11/30/22 Discharging Provider: Dar Nation Primary Care Provider: PHYSICIAN HERNANDEZ FAMILY Consults: 11/27/22 16:31 Consult to Case [...] Instructions: Important Contact Information You can call [facility] at [phone] any time day or night if you have emergent questions or question regarding discharge instructions. If at any time you are feeling an increase inyour psychiatric symptoms, call your physician or behavioral healthcare provider. If any time you have thoughts of harming yourself or others contact one of the following: Call 8 (available 01/09) Crisis Text Line (available 01/09) text 4HOPE to [phone] [facility] Hope Line (available 8 a.m. Midnight) call [phone] ([phone]) Prescriptions: New venlafaxine 75 mg Capsule,Extended Release [...] Dar Nation MD> 11/30/22 1016 [facility] Work Phone: 1(427) 186-351410-22-2023 Hospital Discharge instructions Additional Instructions Important Contact Information You can call [facility] at [phone] any time day or night if you have emergent questions or question regarding discharge instructions. If at any time you are feeling an increase in your psychiatric symptoms, call your physician or behavioral healthcare provider. If any time you have thoughts of harming yourself or others contact one of the following: Call 8-8 (available 01/09) Crisis Text Line (available 01/09) text 4HOPE to [phone] [facility] Hope Line (available 8 a.m. Midnight) call [phone] ([phone]) [facility] Work Phone: 1(292) 796-133410-21-2023 Progress note Author Dar Nation [facility] November 29, 2022 11:21am Note Date/Time November 29, 2022 1 1:22am [facility] [address] [place] [address] Psychiatry Progress Note Signed Patient: Antoinette Recio MR#: [id number] : 1995 Acct:[id number] Age/Sex: 27 / F Adm Date: 3 Loc: Room: [address] [place] [address] Type : ADM IN Attending Dr: Dar [...] <Electronically signed by Dar Nation MD> 11/29/221120 [facility] Work Phone: 1(811) 227-847710-20-2023 History and physical note Author Dar Nation [facility] November 28, 2022 11:45am Note Date/Time November 28, 2022 1 1:45am [facility] [address] [place] [address] Psychiatry H&P Signed Patient: Antoinette Recio MR#: [id number] : 1995 Acct:[id number] Age/Sex: 27 / F Adm Date: 3 Loc: Room: [address] [place] [address] Type: ADM IN Attending Dr: Dar Nation [...] homicidality, reported suicidality Insight: fair Judgment: fair [facility] Medical History Clavicle fracture Miscarriage Surgical History [...] Turbid A Urine pH 5.0 Ur Specific [place] 1.023 Urine Protein Trace H Urine Glucose [...] <Electronically signed by Dar Nation MD> 11/28/22 6460 [facility] Work Phone: 1(452) 145-181104-04-2023 Discharge summary Author Dar Nation [facility] May 13, 2022 12:29pm Note Date/Time May 13, 2022 12:2 9pm [facility] [address] [place] [address] Discharge Summary Signed Patient: Antoinette Recio MR#: [id number] : 1995 Acct:[id number] Age/Sex: 27 / F Adm Date: 3 Loc: Room: [address] [place] [address]: Tiana Smith MD Copies to: [...] past year Living: House with parents in [place] Employment: None Patient was treated with Effexor. [...] No activity restrictions. Instructions: Depression, Adult (DC), [facility] Behavioral Health DC Instructions [...] 30 Days Qty: 30 0RF Follow Up: [facility] Dept @ [facility] [Outside] (Please call to establish care with a primary provider for any medical needs. ) [facility] Counseling Hotline [Outside] [facility] - [facility] [Outside] - 05/14/22 11:30 am (territory development manager: Thursday05/14/22 @ 11:30am Intake: Thursday05/20/22 @ 12:30pm Please bring a copy of your photo ID, insurance card, and proof of household income. Nurse: 05/22/22 @ 2:00pm with Anabel. Please see attached instruction sheet Psychiatry: Thursday05/27/22 @ 9:30am with Dr. Goetz) Documented By: Dar Nation MD 05/13/221227 Signed By: <Electronically signed by Dar Nation MD> 05/13/229 [facility] Work Phone: 1(637) 500-268304-03-2023 Progress note Author Dar Nation [facility] May 12, 2022 3:21pm Note Date/Time May 12, 2022 3:21 pm [facility] [address] [place] [address] Psychiatry Progress Note Signed Patient: Antoinette Recio MR#: [id number] : 1995 Acct:[id number] Age/Sex: 27 / F Adm Date: 3 Loc: 1S Room: [address] [place] [address] Type : ADM IN Attending Dr: Tiana [...] Dar Nation MD> 05/12/22 1521 [facility] Work Phone: 1(603) 753-496304-02-2023 Progress note Author Ji anderson [facility] May 11, 2022 8:50am Note Date/Time May 11, 2022 8:49 am [facility] [address] [place] [address] Psychiatry Progress Note Signed Patient: Antoinette Recio MR#: [id number] : 1995 Acct:[id number] Age/Sex: 27 / F Adm Date: 3 Loc: Room: [address] [place] [address] Type : ADM IN Attending Dr: Tiana Smith MD Copies to: ~ Date of Service: 05/11/2022 Subjective Subjective Narrative: Overnight: Patient was trying the unit doors trying to get out.? She was also starting to get mean.? She stated to this underwriter solicitation director, get out of my face, leave me [...] and laid down on the bed.? This underwriter solicitation director gave report to the Special Care Unit nurse and then this underwriter solicitation director collected the patient's belongings and took them [...] Ji Smith MD> 05/11/22 0850 [facility] Work Phone: 1(915) 988-138004-01-2023 Progress note Author Ji anderson [facility] May 10, 2022 5:02pm Note Date/Time May 10, 2022 10:2 5am [facility] [address] [place] [address] Psychiatry Progress Note Signed with Esmer Patient: Antoinette Recio MR#: [id number] : 1995 Acct:[id number] Age/Sex: 27 / F Adm Date: 3 Loc: Room: 1H8533-8 Type : ADM IN Attending Dr: Tiana [...] <Electronically signed by Ji Smith MD> 05/10/22 1020 [facility] Work Phone: 1(140) 501-358403-31-2023 History and physical note Author Ji anderson [facility] May 09, 2022 12:28pm Note Date/Time May 09, 2022 12: 28pm [facility] [address] [place] [address] Psychiatry H&P Signed Patient: Antoinette Recio MR#: [id number] : 1995 Acct:[id number] Age/Sex: 27 / F Adm Date: 3 Loc: 1S Room: 3M7109-1 Type: ADM IN Attending Dr: Tiana Smith [...] past year Living: House with parents in [place] Employment: None Review of symptoms: Constitutional: Denies [...] Appearance Clear Urine pH 5.5 Ur Specific [place] 1.013 Urine Protein 30 H Urine Glucose [...] explained Documented By: Ji Smith MD 3 0596 Signed By: <Electronically signed by Ji Smith MD> 05/09/22 1228 [facility] Work Phone: evaluation + Plan note Future Appointments Appointment Date:01/26/2024 02:00:00 PM Scheduled Provider:MAYITO JACKSON Location:[facility] Appointment Type:FM Open [facility] Evaluation + Plan note Future Appointments Appointment Date:06/20/2024 08:40:00 AM Scheduled Provider:MAYITO JACKSON Location:[facility] Appointment Type: Open Future Scheduled Tests Laboratory* TSH With T4fr Reflex 03/22/24 * CBC w/ Auto Diff 03/22/24 * Comprehensive Metabolic Panel 03/22/[address] [facility] evaluation note* Diagnosis Onset Date Resolution Status Suicidal ideation acute [facility] Work Phone: evaluation note* Diagnosis Onset Date Resolution Status Alcohol use disorder acute Major depressive disorder, recurrent, moderate acute Suicidal ideation acute [facility] Work Phone: evaluation note* Diagnosis Onset Date Resolution Status Suicidal ideation acute Urinary tract infection [facility] Work Phone: evaluation note* Diagnosis Onset Date Resolution Status Alcohol use disorder acute Major depressive disorder, recurrent, moderate acute Suicidal ideation acute Urinary tract infection [facility] Work Phone: evaluation noteNo assessment information available [facility] Work Phone: evaluation note* Diagnosis Onset Date Resolution Status Alcohol use disorder acute Cannabis use disorder acute Hallucinogenic mushrooms use disorder, mild acute Major depressive disorder, recurrent, moderate acute Mushrooms causing toxic effect acute Suicidal ideation acute [facility] Work Phone: evaluation note* Diagnosis Tooth abscess- Primary Periapical abscess without sinus documented [facility] encounter [facility]* Diagnosis 34 weeks gestation of URI with cough and congestion Restless leg syndrome in Chronic hypertension during , antepartum documented in this encounter [facility]* Diagnosis Acute metabolic encephalopathy- Primary Acute metabolic encephalopathy Alcohol withdrawal syndrome, with delirium (Multi) documented in this encounter [facility] Work Phone: Evaluation note* Diagnosis with 12 completed weeks gestation- Primary History of gestational diabetes mellitus (GDM) Chronic hypertension affecting documented in this encounter [facility]* Diagnosis History of gestational diabetes mellitus (GDM) in prior , currently - Primary History of sleeve gastrectomy [facility]* Diagnosis Chronic hypertension complicating or reason for care during , second trimester- Primary History of gestational diabetes mellitus (GDM) in prior , currently History of sleeve gastrectomy History of alcohol abuse Nondependent alcohol abuse, in remission Family history of congenital heart defect 22 weeks gestation of documented in this encounter [facility]* Diagnosis First trimester - Primary state, incidental HTN in , chronic History of gestational diabetes in prior , currently with other poor obstetric history Nausea/vomiting in Unspecified vomiting of , unspecified as to episode of care documented in [facility] encounter [facility]* Diagnosis First trimester - Primary state, incidental 8 weeks gestation of Smear, vaginal, as part of routine gynecological examination Special screening for malignant neoplasms, vagina Screening for STD (sexually transmitted disease) documented in this encounter [facility] SystemHistory and physical note Author Ji anderson [facility] May 09, 2022 12:28pm Note Date/Time May 09, 2022 12: 28pm [facility] [address] [place] [address] Psychiatry H&P Signed Patient: Antoinette Recio MR#: [id number] : 1995 Acct:[id number] Age/Sex: 27 / F Adm Date: 3 Loc: Room: [address] [place] [address] Type: ADM IN Attending Dr: Tiana Smith [...] past year Living: House with parents in [place] Employment: None Review of symptoms: Constitutional: Denies [...] Appearance Clear Urine pH 5.5 Ur Specific [place] 1.013 Urine Protein 30 H Urine Glucose [...] Ji Smith MD> 05/09/22 1228 [facility] [employer] Work Phone: Hospital course Narrative No data available for this section [facility] Hospital Discharge instructions Additional Instructions Regular diet. No activity restrictions.[facility] Work Phone: Hospital Discharge instructions No data available for this section [facility] [place] Instructions* Attachments The following attachments cannot be sent through Care Everywhere. * The Third Month (Dominican) documented in this encounterProPaulding [facility] Hospital SystemInstructionsNot on file documented in this encounterProPaulding County Hospital SystemInstructionsNot on file documented in this encounterProPaulding County Hospital SystemInstructions* Attachments The following attachments cannot be sent through Care Everywhere. * Activity during (Dominican) * How to Adapt to Physical Changes During (Dominican) * Nutrition before and during (Dominican) * care (Dominican) documented in this encounterProPaulding County Hospital SystemInstructionsNot on file documented in this encounterProPaulding County Hospital SystemInstructionsNot on file documented in this encounterCleveland Clinic Children's [facility] for [facility] SystemProgress note Author Ji anderson [facility] May 10, 2022 5:02pm Note Date/Time May 10, 2022 10:2 5am [facility] [address] [place] [address] Psychiatry Progress Note Signed with Esmer Patient: Antoinette Recio MR#: [id number] : 1995 Acct:[id number] Age/Sex: 27 / F Adm Date: 3 Loc: Room: [address] [place] [address] Type : ADM IN Attending Dr: Tiana [...] signed by Ji Smith MD> 05/10/22 1025 [facility] Work Phone: Progress note Author Ji anderson [facility] May 11, 2022 8:50am Note Date/Time May 11, 2022 8:49 am [facility] [address] [place] [address] Psychiatry Progress Note Signed Patient: Antoinette Recio MR#: [id number] : 1995 Acct:[id number] Age/Sex: 27 / F Adm Date: 3 Loc: 1S Room: [address] [place] [address] Type : ADM IN Attending Dr: Tiana Smith MD Copies to: ~ Date of Service: 05/11/2022 Subjective Subjective Narrative: Overnight: Patient was trying the unit doors trying to get out.? She was also starting to get mean.? She stated to this underwriter solicitation director, get out of my face, leave me [...] and laid down on the bed.? This underwriter solicitation director gave report to the Special Care Unit nurse and then this underwriter solicitation director collected the patient's belongings and took them [...] explained Documented By: Ji Smith MD 3 08 Signed By: <Electronically signed by Ji Smith MD> 05/11/22 0850 [facility] Work Phone: Progress note Author Dar Nation [facility] May 12, 2022 3:21pm Note Date/Time May 12, 2022 3:21 pm [facility] [address] [place], [place] [id number] Psychiatry Progress Note Signed Patient: Antoinette Recio MR#: [id number] : 1995 Acct:[id number] Age/Sex: 27 / F Adm Date: 3 Loc: Room: [address] [place] [address] Type : ADM IN Attending Dr: Tiana [...] Dar Nation MD> 05/12/22 1521 [facility] Work Phone: Progress note Author Genevieve Yeager [facility] November 26, 2023 2:21pm Note Date/Time November 26, 2023 2 :23pm [facility] [address] [place] [address] Hospitalist Progress Note Signed Patient: Antoinette Recio MR#: [id number] : 1995 Acct:[id number] Age/Sex: 28 / F Adm Date: 4 Loc: Room: [address] [place] [address] Type: ADM IN Attending Dr: Genevieve Yeager [...] <Electronically signed by Genevieve Yeager MD> 11/26/23 1421 [facility] Work Phone: Progress note No data available for this section [facility] Summary Purpose Family History Relationship Condition Age at Onset Recorded Date/T tej Not Specified Suicide Unknown Advance Directives Advance Directive Response Recorded Date/ Time Advance Directives No April 21, 2 019 10:38am Date Activated Date Inactivated Comments 02/23/2024 10:34 AM Question Answer Comments Plan of Care: Code Status Discussion Not Compl eted Decision Maker: Provider Rationale: Patient condition does not warra nt discussion Chief Complaint and Reason for Visit Chief [...] moderate Mushrooms causing toxic effect Suicidal ideation Reason for Referral Specialty Diagnoses / Procedures Referred By Contac t Referred To Contact Diagnoses Chronic hypertension complicating or reason for care during , second trimester Procedures Echo complete W/O contrast Celi Wilks MD [address], [address] [place] [address] Referral ID Status Reason Start Date Expiration Date V isits Requested Visits Authorized [id number] Pending Review 08/12/2023 08/11/2024 1 1 Specialty Diagnoses / Procedures Referred By Contac t Referred To Contact Diagnoses Chronic hypertension complicating or reason for care during , second trimester Procedures ECG 12 lead Celi Wilks MD [address], [address] [place] [address] Referral ID Status Reason Start Date Expiration Date V isits Requested Visits Authorized [id number] Pending Review 08/12/2023 08/11/2024 1 1 Specialty Diagnoses / Procedures Referred By Contac t Referred To Contact Maternal and Medicine Diagnoses History of gestational diabetes mellitus (GDM) Chronic hypertension affecting Procedures [facility] with or without consult Lynn Deleon, WATER QUALITY CONTROL ENGINEER-FIRE SPRINKLER FITTER [address] [place] [address] [facility] Maternal Med [address] [place] [address] Referral ID Status Reason Start Date Expiration Date V isits Requested Visits Authorized [id number] Pending Review 06/03/2023 06/02/2024 1 1 Additional Source Comments INFORMATION SOURCE (unrecogn ized section and content) DATE CREATED AUTHOR 2018 [facility] DATE CREATED AUTHOR AUTHOR'S ORGANIZ ATION 03/19/2021 [facility] DATE CREATED AUTHOR AUTHOR'S ORGANIZ ATION 06/15/2021 [facility] DATE CREATED AUTHOR AUTHOR'S ORGANIZ ATION 06/05/2023 [facility] DATE CREATED AUTHOR AUTHOR'S ORGANIZ ATION 08/13/2023 [facility] DATE CREATED AUTHOR AUTHOR'S ORGANIZ ATION 09/17/2023 [facility] DATE CREATED AUTHOR AUTHOR'S ORGANIZ ATION 11/06/2023 [facility] DATE CREATED AUTHOR AUTHOR'S ORGANIZ ATION 11/28/2023 [facility] DATE CREATED AUTHOR AUTHOR'S ORGANIZ ATION 12/01/2023 [facility] DATE CREATED AUTHOR AUTHOR'S ORGANIZ ATION 12/07/2023 [facility] EP[facility] DATE CREATED AUTHOR AUTHOR'S ORGANIZ ATION 12/25/2023 [facility] DATE CREATED AUTHOR AUTHOR'S ORGANIZ ATION 12/26/2023 [facility] DATE CREATED AUTHOR AUTHOR'S ORGANIZ ATION 02/27/2024 [facility] DATE CREATED AUTHOR AUTHOR'S ORGANIZ ATION 03/15/2024 [facility] DATE CREATED AUTHOR AUTHOR'S ORGANIZ ATION 03/23/2024 [facility] Care Teams (unrecognized sec tion and content) [...] FAMILY Primary Care Provider Active Henry Cross , Emergency Provider Active Tiana Smith MD Admit Provider, Attending Pr ovider Active Team Status: Active Member Role Status Dates PHYSICIAN NO FAMILY Primary Care Provider Active Henry Cross , Emergency Provider Active Tiana Smith MD Admit Provider, Attending Pr ovider Active Team Status: Inactive Member Role Status [...] Provider Active Start: November 26, 2023 Bret Javier DO Admit Provider Active Start: November 26, 2023 Genevieve Yeager MD Other Provider Active Sta rt: November 26, 2023 Dar Nation MD Attending Provider, Other Provider Active Start: November 26, 2023 [employer]visor Elementary Education Relationship Specialty Start Date End Date Generic, External Data Provider n/[place] [address] PCP - General 02/22/24 Supervisor Elementary Education Relationship Specialty Start Date End Date No Pcp, [place] [address] PCP - General Family Medicine 03/30/23 Supervisor Elementary Education Relationship Specialty Start Date End Date No Pcp, [place] [address] PCP - General Family Medicine 03/30/23 Supervisor Elementary Education Relationship Specialty Start Date End Date No Pcp, [place] [address] PCP - General Family Medicine 03/30/23 Supervisor Elementary Education Relationship Specialty Start Date End Date No Pcp, [place] [address] PCP - General Family Medicine 03/30/23 Supervisor Elementary Education Relationship Specialty Start Date End Date No Pcp, [place] [address] PCP - General Family Medicine 03/30/23 Supervisor Elementary Education Relationship Specialty Start Date End Date No Pcp, [place] [address] PCP - General Family Medicine 03/30/23 Supervisor Elementary Education Relationship Specialty Start Date End Date No Pcp, [place] [address] PCP - General Family Medicine 03/30/23 Goals (unrecognized section and content) Goals may be documented in a n alternate sectionGoals may be documented in an alternate sectionGoals may be documented in an alternate sectionGoals may be documented in an alternate section No data available for this section No data available for this section No data available for this section No data available for this sectionNot on filedocumented as of this encounter No data available for this section No data available for this sectionNot on filedocumented as of this encounterNot on filedocumented as of this encounterNot on filedocumented as of this encounterNot on filedocumented as of this encounterNot on filedocumented as of this encounterNot on filedocumented as of this encounter Reason for Visit (unrecogniz ed section and content) Reason Comments Routine Visit Reason Comments Altered Mental Status Reason Comments Routine Visit Reason Comments CHTN H/X GDM H/X Gastric Bypass Reason Comments Initial Visit OBI Reason Comments Initial Visit Scheduled Active and Recently Administ ered Medications (unrecognized section and content) Medication Order 02/21/2024 02/22/2024 02/23/2024 cyanocobalamin (Vitamin B-12) injection 1,000 mcg 1,000 mcg, intramuscular, Once, On Thu02/23/24 at 1435, For 1 dose 1511 (Not Given - Provider: Heidi Rapp RN - Reason: Patient/family refused) cyanocobalamin (Vitamin B-12) tablet 1,000 mcg 1,000 mcg, oral, Daily, First dose on Thu02/24/24 at 0900 folic acid (Folvite) tablet 1 mg 1 mg, oral, Daily, First dose on Thu02/23/24 at 0900 0846 (Not Given - Provider: Heidi Rapp RN - Reason: Patient/family refused) hydrALAZINE (Apresoline) injection 10 mg (COMPLETED) 10 mg, intravenous, Once, On Thu02/23/24 at 1120, For 1 dose 1135 (Given - Provid er: Heidi Rapp RN) ketamine injection 250 mg (COMPLETED) 250 mg, intravenous, Once, On Thu02/22/24 at 2025, For 1 dose, Give IV doses slowly over 2-3 minutes (max 0.5 mg/kg/min). If IM, give deeply into a large muscle mass. 2014 (Given - Provider: Larissa Calzada RN) ketamine injection 250 mg (COMPLETED) 250 mg, intramuscular, Once, On Thu02/22/24 at 2115, For 1 dose, Give IV doses slowly over 2-3 minutes (max 0.5 mg/kg/min). If IM, give deeply into a large muscle mass. 2112 (Given - Provider: Larissa Calzada RN) multivitamin with minerals 1 tablet 1 tablet, oral, Daily, First dose on Thu02/23/24 at 0900 0846 (Not Given - Provider: Heidi Rapp RN - Reason: Patient/family refused) PHENobarbital (Luminal) injection 130 mg (COMPLETED) 130 mg, intravenous, Once, On Thu02/23/24 at 0100, For 1 dose 0107 (Given - Provid er: Genna Saha RN) PHENobarbital (Luminal) injection 130 mg (COMPLETED) 130 mg, intravenous, Once, On Thu02/23/24 at 0155, For 1 dose 0220 (Given - Provid er: Larissa Calzada RN) polyethylene glycol (Glycolax, Miralax) packet 17 g 17 g, oral, Daily, First dose on Thu02/23/24 at 0900, Bowel Regimen - for prevention of constipation. 0844 (Not Given - Provider: Heidi Rapp RN - Reason: Patient/family refused) sennosides (Senokot) tablet 17.2 mg 17.2 mg (2 tablet), oral, 2 times daily, First dose on Thu02/22/24 at 2225, Bowel Regimen - for prevention of constipation Hold for loose stools 2247 (Not Given - Provider: Larissa Calzada RN - Reason: Other) 0844 (Not Given - Provider: Heidi Rapp RN - Reason: Patient/family refused)2100 (Due) sodium chloride 0.9 % bolus 1,000 mL (COMPLETED) 1,000 mL, intravenous, at 2,000 mL/hr, Administer over 30 Minutes, Once, On Thu02/22/24 at 2030, For 1 dose 2040 (New Bag - Provider: Larissa Calzada RN)2115 (Stopped - Provider: Larissa Calzada RN) thiamine (Vitamin B-1) tablet 100 mg 100 mg, oral, Daily, First dose on Lalitha 02/25/24 at 2240, To start after three days of IV thiamine (Vitamin B1) injection 100 mg 100 mg, intravenous, Daily, First dose on Thu02/23/24 at 0900, For 3 doses, For IV push use, administer over 1-2 minutes. 925 (Given - Provid er: Heidi Rapp RN) ziprasidone (Geodon) injection 20 mg (COMPLETED) 20 mg, intramuscular, Once, On Thu02/22/24 at 2115, For 1 dose, May cause prolongation of QT interval. Maximum of 40 mg intramuscularly per day. 2114 (Given - Provider: Larissa Calzada RN) Continuous Medication Order 02/21/2024 02/22/2024 02/23/2024 dexmedeTOMIDine (Precedex) 400 mcg in 100 mL (4 mcg/mL) sodium chloride 0.9% infusion 0.2-1.5 mcg/kg/hr 54.4 kg (2.72-20.4 mL/hr), intravenous, Continuous, Starting on Thu02/22/24 at 2225, Use along with analgesia regimen, Titration Goal: Use Adult Parameters, Target Parameter: RASS 0 to -2, Initial dose: 0.2 mcg/kg/hr, Bidirectional Titration Dose: 25 %, Titration Frequency: Every 30 minutes 2231 (New Bag - Provider: Larissa Calzada RN)231 (Rate/Dose Change - Provider: Larissa Calzada RN - Comment: Verbal order per Dr. Kevin to increasee dose to 0.5)2347 (Rate/Dose Change - Provider: Larissa Calzada RN) 0001 (Rate/Dose Change - Provider: Larissa Calzada RN - Comment: Verbal order from Dr. Kevin to increase rate to 1.5)0056 (Rate/Dose Change - Provider: Larissa Calzada RN - Comment: Verbal order per Dr. Kevin to increase to 1.5)0324 (Rate/Dose Verify - Provider: Genna Saha RN)0441 (New Bag - Provider: Genna Saha RN)0726 (Rate/Dose Verify - Provider: Heidi Rapp RN)0810 (Rate/Dose Change - Provider: Heidi Rapp RN)0909 (Rate/Dose Change - Provider: Heidi Rapp RN)0926 (New Bag - Provider: Heidi Rapp RN)0933 (Rate/Dose Change - Provider: Heidi Rapp RN)1008 (Rate/Dose Change - Provider: Heidi Rapp RN)1131 (Rate/Dose Change - Provider: Heidi Rapp RN)1230 (Rate/Dose Change - Provider: Heidi Rapp RN)1303 (Stopped - Provider: Heidi Rapp RN) sodium chloride 0.9% infusion 75 mL/hr, intravenous, Continuous, Starting on Thu02/23/24 at 1035, For 1 day 1109 (New Bag - Provider: Heidi Rapp RN)1311 (Rate/Dose Verify - Provider: Heidi Rapp RN)1450 (Stopped - Provider: Heidi Rapp RN) FOR RECORDS PERTAINING TO PATIENTS WHO ARE [...] BE BASED ON THE PRIMARY CLINICAL RECORDS. [facility]. provides no warranty or guarantee of the accuracy or completeness of information in this document.
--- NOTE | 2024-04-14 20:45 | ECG_ITS ---
[facility] Test Date: 2024-04-14 Pat Name: BRAYDEN RECIO Department: Room: - Gender: Female Development Mgr: : 1995 Requested By: [id number] Order Number: [id number] Belia MD: REBEL JONES M.D. Measurements Intervals [place] Rate: 125 P: 90 SD: 98 QRS: 23 QRSD: 90 T: 49 QT: 332 QTc: 406 Interpretive Statements 1120 Sinus tachycardia 2210 Short SD interval [address] depression 0102 ARTIFACT PRESENT 9150 abnormal ECG Compared to ECG 12/05/2023 12:13:29 ST (T wave) deviation now present Sinus arrhythmia no longer present Left-axis deviation no longer present Electronically Signed On 04-15-2024 6:34:27 EST by REBEL JONES M.D.
--- NOTE | 2024-04-14 20:47 | ED.PSYCH1 ---
HPI - Psych General Chief Complaint: Psychiatric Symptoms Stated Complaint: PSYCH EVAL-PT UNK WHY HERE Time Seen by Provider: 04/14/24 20:24 Source: Reports patient Mode of arrival: walk-in Limitations: Reports no limitations History of Present Illness HPI Narrative: This 28-year-old female is brought to the emergency department by her sister for evaluation of erratic behavior and heavy alcohol use. The patient has 3 children, 2 of them are in the custody of her mother and one of them which is 5 months old is in the custody of her sister. The patient's sister states that she was taking her to [facility]. The patient had agreed to go to detox for alcohol use but while en route to the center she started behaving erratically. According to the patient's sister the patient called 911 from her car stating that she was not safe. The dispatcher directed her to the [place] [employer]. She told them that her sister was driving her around in circles. She was referred to the emergency department by the police. The patient sister states that she has a history of alcoholism and has not been drinking for the past several months however she started drinking again on Thursday. She has been drinking heavily since then and been behaving erratically. The patient denies this. She denies that she was going to the detox center but states she would like us to give her a ride there. The patient's sister states that she drank 36 cans of white claw over the weekend. She was formerly living with her mother but after resuming her heavy alcohol use the mother kicked her out and she went back to her apartment. The patient's sister states there was some wax like material on the patient's stove. She believes she is using drugs and at least marijuana. The patient states that her sister brought her here because she is down and not feeling good. I asked her what she meant by that and she states she does does not feel good. She denies that she is on any antidepressants or anxiety medications at this time. She denies that she has been drinking heavily. At 1 point she admits that she was going to the detox center but states nobody would take her there and when I confronted her stating that her sister was trying to take her there tonight she states that she was just driving around in circles. In the emergency department the patient refuses any blood draws or EKGs. She states she wants to go home. I explained to her that due to her erratic behavior I did not feel she was safe to be released to the community. I offered to release her to her sister's custody if she was agreeable to going to [facility]. She then refuses this as well. The patient now states that she does not recall what happened in the car within the past hour when she called 911 while she was in the car and was directed to the police department. The patient states she was calling her mother and her aunt at that time. She showed me the phone calls on her phone. I explained to her that you cannot call multiple people at 1 time and that she were on a conference call and the times that she called her mother and her aunt for previous to her calling 911. At that point she was pink slipped, security was called to monitor her and fire lands was consulted. Patient spoke to her mother on the phone and is still confused as to recent events. She requested to go to the bathroom and I accompanied her to the bathroom and gave her a urine cup. She refused to use the urine cup. After coming out of the bathroom she refused to go back into her room. Myself, security and several nurses required to assist her back to her room at which time she refused to get on the bed and became agitated. The police were called for promotions assistant sales marketing but prior to them arriving she was placed in soft restraints and she was given 20 mg of IM Geodon. According to the police she has multiple warrants out for her arrest. She was not arrested at this time. Related Data Home Medications ?Medication ?Instructions ?Recorded ?Confirmed buprenorphine 4 mg-naloxone 1 mg film 12/05/23 sublingual film Allergies Allergy/AdvReac Type Severity Reaction Status Date / Time erythromycin base Allergy Anaphylaxis Verified 11/07/23 19:07 Review of Systems ROS Status of ROS 10 or more systems reviewed and unremarkable except as noted in history and below [facility] Medical History (Updated 04/15/24 @ 02:35 by Jennifer Syed MD) Hypertension ?I10 - Essential (primary) hypertension (ICD-10) Headache in ?O26.899 - Other specified related conditions, unspecified trimester (ICD-10) ?R51.9 - Headache, unspecified (ICD-10) Pre-eclampsia ?O14.90 - Unspecified pre-eclampsia, unspecified trimester (ICD-10) Normal vaginal delivery ?O80 - Encounter for full-term uncomplicated delivery (ICD-10) Family History (Updated 11/10/23 @ 20:02 by Jose Cruz) Mother Family history of hypertension Other Family history of cancer Family history of diabetes mellitus Family history of myocardial infarction Family history of stroke Social History Little interest or pleasure in doing things: not at all Feeling down, depressed, or hopeless: several days Exam Narrative Exam Narrative: Vital signs and Nursing Notes reviewed: Patient is afebrile, she is tachycardic with a pulse of 120 and blood pressure is elevated at 152/113, she has not hypoxic with pulse ox of 100% on room air General: Awake, alert, oriented, slow response to some questions and appears confused but at other times answers questions appropriately HEENT: Normocephalic atraumatic, mucous membranes are moist and pink, eyes are clear, normal conjunctiva, vision is grossly intact Neck: Supple, no meningeal signs, no anterior or posterior cervical lymphadenopathy Chest: Lungs are clear to auscultation with good air entry, there is no wheezing rhonchi or rales appreciated no accessory muscle use, patient is speaking in complete sentences-no chest wall tenderness to palpation CVS: Regular rate and rhythm S1-S2, tachycardic at 120 at triage, no murmurs rubs or gallops, pulses are brisk and equal bilaterally ABD: Soft, nondistended, nontender, no rebound guarding or rigidity, bowel sounds are normal, no pulsatile masses appreciated Extremities: Moving all extremities, no lower extremity tenderness or swelling noted, negative Homans' sign, pulses are brisk and equal bilaterally Skin: Normal in appearance without rash,pallor, petechiae or purpura Neuro: No focal deficits Psych: Admits to feeling down denies amanda suicidal ideation Constitutional Vital Signs, click to edit/add: Last Vital Signs Temp 97.9 F 04/14/24 20:30 Pulse 117 H 04/14/24 22:38 Resp 14 04/14/24 22:38 BP 150/90 H 04/15/24 01:23 Pulse Ox 100 04/14/24 20:30 O2 Del Method Room Air 04/14/24 20:30 Course Vital Signs Vital signs: Vital Signs Temperature 97.9 F 04/14/24 20:30 Pulse Rate 120 H 04/14/24 20:30 Respiratory Rate 18 04/14/24 20:30 Blood Pressure 152/113 H 04/14/24 20:30 Pulse Oximetry 100 04/14/24 20:30 Oxygen Delivery Method Room Air 04/14/24 20:30 Temperature 97.9 F 04/14/24 20:30 Pulse Rate 117 H 04/14/24 22:38 Respiratory Rate 14 04/14/24 22:38 Blood Pressure 150/90 H 04/15/24 01:23 Pulse Oximetry 100 04/14/24 20:30 Oxygen Delivery Method Room Air 04/14/24 20:30 MDM - Psych MDM Narrative Medical decision making narrative: This 20-year-old female with a history of anxiety, depression and suicidal ideation in the past who recently started drinking after a period of abstinence was brought to the emergency department by her sister. Her sister was driving her to [facility] when the patient started behaving erratically. The patient called 911 despite being in the car with her sister. 911 directed her sister to bring her to this emergency department. In the emergency department she is uncooperative. She allegedly cannot recall what happened over the course of the last evening. She does not remember that she was supposed to be going to the detox center. She refused to cooperate with us and ultimately I pink slipped her due to her bizarre behavior. She went to the bathroom and after coming out of the bathroom became agitated and was placed in soft restraints for her safety and the safety of the staff in the emergency department. She was given 20 mg of IM Geodon. EKG is a sinus tachycardia that is limited by patient movement and lack of cooperation but does not show any acute findings with normal intervals. After she was given the Geodon and started to calm down I was able to draw blood work on her. She has a normal white count and hemoglobin. Her aspirin and Tylenol levels were normal. Her alcohol is 131. Electrolytes are normal. Serum is negative. She spoke with [facility] and ultimately consented to providing us with a urine. Her U tox is negative. She did admit when she was here in the past that she had been using mushrooms and marijuana. Patient was taken out of her restraints but is ambulatory in the room and still irritable. Security is sitting with her for her safety. We are waiting to hear back from [facility] regarding her disposition. 0230: Pt accepted for transfer to [address] Nation. Lab Data Attestation: I reviewed the patient's lab results. Labs: Lab Results 04/14/24 04/15/24 Range/Units 22:35 01:07 WBC 7.2 (4.0-11.0) 10^3/uL RBC 4.34 (4.20-5.40) 10^6/uL Hgb 10.5 L (12.0-16.0) g/dL Hct 33.8 L (36.0-48.0) % MCV 77.9 L (81.0-99.0) fL MCH 24.2 L (26.7-34.0) pg MCHC 31.1 (29.9-35.2) g/dL RDW 17.0 H (11.0-15.0) % Plt Count 393 (150-450) 10^3/uL MPV 9.1 L (9.5-13.5) fL Neut % (Auto) 70.7 (43.0-75.0) % Lymph % (Auto) 21.9 (20.5-60.0) % [place] % (Auto) 5.4 (1.7-12.0) % Eos % (Auto) 0.3 L (0.9-7.0) % Baso % (Auto) 1.4 (0.2-2.0) % Neut # (Auto) 5.1 (1.4-6.5) 10^3/uL Lymph # (Auto) 1.6 (1.2-3.8) 10^3/uL [place] # (Auto) 0.4 (0.3-0.8) 10^3/uL Eos # (Auto) 0.0 (0.0-0.7) 10^3/uL Baso # (Auto) 0.1 (0.0-0.1) 10^3/uL Abs Immat Gran (auto) 0.02 (0.00-0.03) 10^3/uL Imm/Tot Granulo (auto) 0.3 (0.0-0.5) % Sodium 140 (136-145) mmol/L Potassium 4.1 (3.5-5.1) mmol/L Chloride 100 (98-107) mmol/L Carbon Dioxide 23.0 (21.0-32.0) mmol/L Anion Gap 21.1 BUN 8.0 (7.0-18.0) mg/dL Creatinine 0.82 (0.55-1.02) mg/dL Est GFR ( Amer) >60 (>=60 mL/min/1.73m^2) Est GFR (Non-Af Amer) >60 (>=60 mL/min/1.73m^2) BUN/Creatinine Ratio 9.8 Glucose 102 (74-106) mg/dL Calcium 9.0 (8.5-10.1) mg/dL Total Bilirubin 0.4 (0.2-1.0) mg/dL AST 30 (15-37) U/L ALT 22 (14-59) U/L Alkaline Phosphatase 70 (46-116) U/L Total Protein 7.9 (6.4-8.2) g/dL Albumin 4.0 (3.4-5.0) g/dL Globulin 3.9 g/dL Albumin/Globulin Ratio 1.0 Serum HCG, Qual Negative (NEGATIVE) Urine Color Lt. yellow (YELLOW) Urine Clarity Clear (CLEAR) Urine pH 5.5 (5.0-9.0) Ur Specific Gary 1.020 (1.005-1.025) Urine Protein 100 A (NEG/TRACE) mg/dL Urine Glucose (UA) Negative (NEGATIVE) mg/dL Urine Ketones 40 A (NEGATIVE) mg/dL Urine Occult Blood Trace-i (NEGATIVE) Urine Nitrite Negative (NEGATIVE) Urine Bilirubin Negative (NEGATIVE) Urine Urobilinogen 0.2 (0.2-1.0) EU/dL Ur Leukocyte Esterase Negative (NEGATIVE) Urine RBC 0-2 (0-2) #/HPF Urine WBC 0-2 A (NONE SEEN) #/HPF Ur Squamous Epith Cells Moderate A (NONE/RARE) #/LPF Urine Crystals None seen (None Seen) #/HPF Urine Bacteria Small A (NONE SEEN) #/HPF Urine Casts Seen A (NONE SEEN) #/LPF Hyaline Casts Moderate Fine Granular Casts Moderate Coarse Granular Casts Few Urine Mucus Small A (NONE SEEN) Ur Culture Indicated? Yes-[facility] [place] Urine HCG, Qual Negative (NEGATIVE) Salicylates <2.8 (<=19.9) mg/dL Urine Opiates Screen Negative (NEGATIVE) Ur Buprenorphine Scrn Negative (NEGATIVE) Ur Oxycodone Screen Negative (NEGATIVE) Urine Methadone Screen Negative (NEGATIVE) Acetaminophen <2.0 L (10.0-30.0) ug/mL Ur Barbiturates Screen Negative (NEGATIVE) U Tricyclic Antidepress Negative (NEGATIVE) Ur Phencyclidine Scrn Negative (NEGATIVE) Ur Amphetamines Screen Negative (NEGATIVE) U Methamphetamines Scrn Negative (NEGATIVE) U Benzodiazepines Scrn Negative (NEGATIVE) Urine Cocaine Screen Negative (NEGATIVE) U Cannabinoids Screen Negative (NEGATIVE) Ethanol Quant 131 mg/dL ECG Data Attestation: I personally reviewed and interpreted this ECG as follows: (Sinus tachycardia at 125 bpm, normal intervals, limited by patient movement and lack of cooperation, no acute ST segment elevation) Discharge Plan Discharge Chief Complaint: Psychiatric Symptoms Clinical Impression: Acute psychosis, Major depressive disorder Patient Disposition: [facility] Time of Disposition Decision: 02:35 Discharge Location: [facility] Mode of Transportation: Mental Health Car Prescriptions / Home Meds: No Action buprenorphine-naloxone 4-1 mg film Print Language: Tajik Referrals: Donna Prasad, [employer]CHNICIAN [Primary Care Provider] - 1 week
[2024-04-14] MEDS: WATER FOR INJECTION, STERILE 20 ML VIAL INJ (21:53)
[2024-04-14] MEDS: ZIPRASIDONE MESYLATE 20 MG VIAL IM (21:53)
--- NOTE | 2024-04-14 21:59 | PC.NURSE ---
pt remains uncooperative. dr lorenz walked pt to bathroom to attempt to get a urine sample, pt immediately tried leaving unit. pt refusing to go back to room, brought back by staff and security [place]iel. [place] called at this time. pt restrained with 4 soft wrist restraints and 20mg of geodon administered IM. Pt continues to act confused and uncooperative. police at the bedside along with muriel corral and pts sister Hayde.
[2024-04-14 22:38] VITALS: PULSE 117
[2024-04-14 22:39] VITALS: BP 161/100
[2024-04-14 22:49] LABS: Basophils Absolute Auto 0.1 10^3/uL (0.0-0.1); Basophils Percent Auto 1.4 % (0.2-2.0); Eosinophils Percent Auto 0.3 % (0.9-7.0); Hematocrit 33.8 % (36.0-48.0); Hemoglobin 10.5 g/dL (12.0-16.0); Immature Granulocytes Abs Auto 0.02 10^3/uL (0.00-0.03); Immature Granulocytes Pct Auto 0.3 % (0.0-0.5); Lymphocytes Absolute Auto 1.6 10^3/uL (1.2-3.8); Lymphocytes Percent Auto 21.9 % (20.5-60.0); Mean Corpuscular HGB Conc 31.1 g/dL (29.9-35.2); Mean Corpuscular Hemoglobin 24.2 pg (26.7-34.0); Mean Corpuscular Volume 77.9 fL (81.0-99.0); Mean Platelet Volume 9.1 fL (9.5-13.5); Monocytes Absolute Auto 0.4 10^3/uL (0.3-0.8); Monocytes Percent Auto 5.4 % (1.7-12.0); Neutrophils Absolute Auto 5.1 10^3/uL (1.4-6.5); Neutrophils Percent Auto 70.7 % (43.0-75.0); Platelet Count 393 10^3/uL (150-450); Red Blood Count 4.34 10^6/uL (4.20-5.40); White Blood Count 7.2 10^3/uL (4.0-11.0)
[2024-04-14 23:12] VITALS: BP 160/121
[2024-04-14 23:13] LABS: Alanine Aminotransferase 22 U/L (14-59); Alkaline Phosphatase 70 U/L (46-116); Anion Gap 21.1; Aspartate Amino Transferase 30 U/L (15-37); BUN Creatinine Ratio 9.8; Bilirubin Total 0.4 mg/dL (0.2-1.0); Chloride 100 mmol/L (98-107); Estimated GFR (African America >60 (>=60 mL/min/1.73m^2); Estimated GFR (Non-African Ame >60 (>=60 mL/min/1.73m^2); Ethanol 131 mg/dL; Globulin 3.9 g/dL; Glucose 102 mg/dL (74-106); Potassium 4.1 mmol/L (3.5-5.1); Salicylate <2.8 mg/dL (<=19.9); Sodium 140 mmol/L (136-145); Total Protein 7.9 g/dL (6.4-8.2)
[2024-04-14 23:14] LABS: Acetaminophen <2.0 ug/mL (10.0-30.0)
[2024-04-14 23:30] VITALS: BP 176/116
[2024-04-15] VITALS (8 sets, daily range): BP systolic 145–168; BP diastolic 83–95; PULSE 99–113; O2SAT 98–110
[2024-04-15 00:11] LABS: HCG Qualitative NEGATIVE (NEGATIVE); Internal Control Within Normal Limits
[2024-04-15 01:21] LABS: Bilirubin Urine NEGATIVE (NEGATIVE); Blood Urine TRACE-I (NEGATIVE); Clarity Urine CLEAR (CLEAR); Color Urine LT. YELLOW (YELLOW); Glucose Urine UA NEGATIVE (NEGATIVE); Ketones Urine 40 mg/dL (NEGATIVE); Leukocyte Esterase Urine NEGATIVE (NEGATIVE); Nitrite Urine NEGATIVE (NEGATIVE); Protein Urine 100 mg/dL (NEG/TRACE); Urobilinogen Urine 0.2 EU/dL (0.2-1.0); pH Urine 5.5 (5.0-9.0)
[2024-04-15 01:27] LABS: HCG Qualitative Urine* NEGATIVE (NEGATIVE); Internal Control Within Normal Limits
[2024-04-15 01:31] LABS: Amphetamine Screen Urine NEGATIVE (NEGATIVE); Barbiturates Screen Urine NEGATIVE (NEGATIVE); Benzodiazepines Screen Urine NEGATIVE (NEGATIVE); Buprenorphine Screen Urine NEGATIVE (NEGATIVE); Cannabinoid Screen Urine NEGATIVE (NEGATIVE); Cocaine Screen Urine NEGATIVE (NEGATIVE); Methadone Screen Urine NEGATIVE (NEGATIVE); Methamphetamines Screen Urine NEGATIVE (NEGATIVE); Opiate Screen Urine NEGATIVE (NEGATIVE); Oxycodone Screen Urine NEGATIVE (NEGATIVE); Phencyclidine Screen Urine NEGATIVE (NEGATIVE); Tricyclic Antidepressant Urine NEGATIVE (NEGATIVE)
[2024-04-15 01:43] LABS: Cast Seen? SEEN #/LPF (NONE SEEN); Crystals Seen? None Seen #/HPF (None Seen); Mucus Urine SMALL (NONE SEEN); RBC Urine 0-2 #/HPF (0-2); Squamous Epithelial Cell Urine MODERATE #/LPF (NONE/RARE); WBC Urine 0-2 #/HPF (NONE SEEN)
[2024-04-15 01:44] LABS: Coarse Granular Casts Urine FEW; Fine Granular Casts Urine MODERATE; Hyaline Casts Urine MODERATE
[2024-04-15 01:45] LABS: Bacteria Urine SMALL #/HPF (NONE SEEN); Urine Culture Indicated YES-FRMC
[2024-04-15] MEDS: ZIPRASIDONE MESYLATE 20 MG VIAL IM (03:26)
[2024-04-15] MEDS: WATER FOR INJECTION, STERILE 20 ML VIAL INJ (03:26)
--- NOTE | 2024-04-15 03:56 | PC.NURSE ---
[facility] psych here around 0300 to take pt [facility]. pt immediately began refusing to leave even though she was agreeable just prior to this. multiple attempts to get pt into car made, police called and attempted to help. ultimately decision made to take pt inside and give more geodon. pt then restrained with hard wrist restraints due to removing the soft wrist restraints on her own. pt very combative and uncooperative at this time. attempted to call Maria Eugenia with [facility] but is off work at 0400. will continue to hold and monitor until a plan can be made.
--- NOTE | 2024-04-15 07:43 | PC.NURSE ---
Leonila from [facility] calls and is updated. We will attempt to get patient out of restraints and agreeable to go to [facility]. Will call [facility] back with update.
[2024-04-15] MEDS: LORAZEPAM 0.5 MG TABLET 1 MG PO (13:26)
[2024-04-15] MEDS: ACETAMINOPHEN 500 MG TABLET 1000 MG PO (13:26)
== END 2024-04-15 21:08 ==
PROVIDERS: Emergency Provider Emergency Medicine; PCP Nurse Practitioner
DX: F23 Brief psychotic disorder (principal); F32.9 Major depressive disorder, single episode, unspecified; F10.20 Alcohol dependence, uncomplicated; Y90.6 Blood alcohol level of 120-199 mg/100 ml; F41.9 Anxiety disorder, unspecified
CPT/HCPCS: 36415; 80053; 80179; 80307; 80320; 80329; 81001; 84703; 85025; 87086; 93005; 96372; 99285; J3486